=== PATIENT | male | born 1965 | race Caucasian/White ===

== ENCOUNTER 2021-04-12 12:04 | Outpatient (REF) | payer MEDICAID, SELFPAY ==
--- NOTE | ~2021-04-12 | XR_ITS ---
EXAMINATION: XR THORACIC SPINE XR LEFT FOOT CLINICAL INFORMATION: Dorsalgia and left foot pain. COMPARISON: None TECHNIQUE: 3 views of thoracic spine, 3 views of left foot. FINDINGS: THORACIC SPINE: Mild degenerative changes noted in the thoracic spine with some mild osteophyte formation. Vertebral heights are well maintained. No significant disc space narrowing is seen. No bony destructive lesions are seen. Vertebral soft tissues appear normal. LEFT FOOT: No significant bone, joint or soft tissue abnormalities are seen. XR/XR thoracic spine 2V IMPRESSION: Mild degenerative changes of thoracic spine, but no acute disease. Normal left foot.
--- NOTE | ~2021-04-12 | XR_ITS ---
EXAMINATION: XR THORACIC SPINE XR LEFT FOOT CLINICAL INFORMATION: Dorsalgia and left foot pain. COMPARISON: None TECHNIQUE: 3 views of thoracic spine, 3 views of left foot. FINDINGS: THORACIC SPINE: Mild degenerative changes noted in the thoracic spine with some mild osteophyte formation. Vertebral heights are well maintained. No significant disc space narrowing is seen. No bony destructive lesions are seen. Vertebral soft tissues appear normal. LEFT FOOT: No significant bone, joint or soft tissue abnormalities are seen. XR/XR foot LT min 3V IMPRESSION: Mild degenerative changes of thoracic spine, but no acute disease. Normal left foot.
== END 2021-04-12 12:05 | disposition home or self-care (01) ==
LOC: HO.XRAY 12:04
PROVIDERS: PCP Physician Assistant Medical; Visit Provider Physician Assistant Medical
DX: M54.9 Dorsalgia, unspecified (principal); M79.672 Pain in left foot
CPT/HCPCS: 72070; 73630

== ENCOUNTER 2021-06-10 09:26 | Outpatient (REF) | payer MEDICAID, SELFPAY ==
[2021-06-10 10:54] LABS: MANUAL DIFF FLAG NO
[2021-06-10 11:02] LABS: Basophils Absolute Auto 0.1 X10*3/uL (0.0-0.2); Eosinophils Absolute Auto 0.1 X10*3/uL (0.0-0.4); Eosinophils Percent Auto 1.9 % (0-4); Hematocrit 40.7 % (42.0-52.0); Hemoglobin 13.6 g/dl (14.0-18.0); Imm Gran Abs Auto 0.02 X10*3/uL (0.00-0.03); Imm Gran Pct Auto 0.3 % (0.0-0.4); Lymphocytes Absolute Auto 1.5 X10*3/uL (1.2-4.9); Lymphocytes Percent Auto 23.7 % (20-40); Mean Corpuscular HGB Conc 33.4 g/dl (31.0-36.0); Mean Corpuscular Hemoglobin 32.6 pg (27.0-33.0); Mean Corpuscular Volume 97.6 fL (80.0-98.0); Mean Platelet Volume 9.6 fL (9.4-12.4); Monocytes Absolute Auto 0.6 X10*3/uL (0.1-1.2); Neutrophils Percent Auto 63.1 % (45-73); Platelet Count 142 X10*3/uL (160-400); Red Blood Count 4.17 X10*6/uL (4.60-5.80); Red Cell Distribution Width 12.5 % (11.0-16.0); White Blood Count 6.3 X10*3/uL (4.8-10.8)
[2021-06-10 11:05] LABS: Ammonia 61 umol/L (13-55)
[2021-06-10 11:30] LABS: Ethanol 63 mg/dL
[2021-06-10 11:39] LABS: Alanine Aminotransferase 31 U/L (0-40); Albumin Level 4.1 g/dL (3.5-5.0); Alkaline Phosphatase 250 U/L (39-117); Anion Gap 13 (12-20); Aspartate Amino Transferase 66 U/L (5-37); Bilirubin Direct 1.7 mg/dL (0.0-0.5); Bilirubin Total 2.8 mg/dL (0.0-1.0); Blood Urea Nitrogen 6 mg/dL (9-16); Calcium 9.5 mg/dL (8.4-10.2); Carbon Dioxide 24 mmol/L (22-29); Chloride 107 mmol/L (96-108); Estimated Glomerular Filt Rate > 60; Gamma Glutamyl Transpeptidase 2351 U/L (11-51); Glucose Random 98 mg/dL (60-115); Potassium 3.8 mmol/L (3.3-5.1); Sodium 140 mmol/L (135-145); Total Protein 7.7 g/dL (6.5-8.0)
[2021-06-10 11:57] LABS: HBc Num1 0.07 S/CO (0.00-0.79); HBsAGNum1 0.22 S/CO (0.00-0.99); HIV AB/AG Nonreactive (Nonreactive); HIV Num 1 0.08 S/CO (0.00-0.99); Hepatitis B Core Antibody Nonreactive (Nonreactive); Hepatitis B Surface Antigen Negative (Negative); ~HepC Num1 0.13 S/CO (0.00-0.79); ~Hepatitis B Surface Antibody NONREACTIVE (Nonreactive); ~Hepatitis C Antibody Nonreactive (Nonreactive)
[2021-06-10 12:00] LABS: TSH reflex Free T4 2.15 uIU/mL (0.32-4.0)
[2021-06-10 12:24] LABS: Ferritin 389 ng/mL (20-250)
[2021-06-10 12:48] LABS: Hepatitis A Antibody IgM 0.24 Index (0-0.79); ~Hepatitis A Antibody IgM Nonreactive (Nonreactive)
[2021-06-14 10:16] LABS: Anti Nuclear Antibody Screen POSITIVE (NEGATIVE); Anti Nuclear Antibody Titer 1:40 titer
[2021-06-14 11:50] LABS: Smooth Muscle Antibody <20 U (<20)
[2021-06-14 16:42] LABS: Mitochondrial Antibodies NEGATIVE (NEGATIVE)
[2021-06-15 11:56] LABS: Alpha Fetoprotein 5.3 ng/mL (<6.1)
== END 2021-06-10 09:27 | disposition home or self-care (01) ==
LOC: HO.LAB 09:26
PROVIDERS: PCP Physician Assistant Medical; Visit Provider Nurse Practitioner
DX: R79.89 Other specified abnormal findings of blood chemistry (principal); I85.00 Esophageal varices without bleeding; D36.9 Benign neoplasm, unspecified site; F10.20 Alcohol dependence, uncomplicated
CPT/HCPCS: 36415; 80053; 82077; 82105; 82140; 82248; 82728; 82977; 84443; 85025; 86038; 86039; 86255; 86256; 86704; 86706; 86709; 86803; 87340; 87389; 99202

== ENCOUNTER 2021-07-27 07:46 | Outpatient (REF) | payer MEDICAID, SELFPAY ==
--- NOTE | ~2021-07-27 | US_ITS ---
EXAMINATION: US COMPLETE ABDOMEN WITH LIVER ELASTOGRAPHY CLINICAL INFORMATION: Abnormal liver function tests COMPARISON: Previous CT of the abdomen and pelvis March 2012 TECHNIQUE: Real-time imaging of the abdominal viscera. Noninvasive ultrasound liver fibrosis assessment is performed using Ed ElastPQ point quantification shear wave elastography (2D-SWE) with a C5-2 MHz transducer. Multiple elastography samples are obtained. FINDINGS: PANCREAS: Normal. ABDOMINAL AORTA: The proximal, middle, and distal aortic segments are normal in caliber. INFERIOR VENA CAVA: Visualized portions are normal. LIVER: Liver echotexture is very heterogeneous with hyper and hypoechoic areas. It is difficult to exclude a focal liver lesion. The contour of the liver is irregular/scalloped suggestive of cirrhosis. The liver is enlarged. There is no biliary duct dilatation. The right lobe measures 22 cm in length. The left lobe measures 14 cm in length. Portal flow is normal/hepatopedal Shear wave liver elastography median stiffness is 1.9 m/s (reference: normal median stiffness is 1.3 m/s or less). IQR/median stiffness to assess sampling precision is 0.27 (reference: good quality data set is IQR/median stiffness of 0.15 or less). GALLBLADDER: The gallbladder is normal in size. There is a small gallbladder wall polyp measuring 0.4 cm. Gallbladder wall appears slightly thickened measuring up to 0.6 cm. COMMON BILE DUCT: Normal in caliber measuring 0.4 cm in diameter. RIGHT KIDNEY: There is a 1.6 x 1.5 x 1.9 cm slightly complex cyst in the midpole with focus of wall calcification or milk of calcium. No hydronephrosis. The kidney measures 13 cm in maximum dimension. LEFT KIDNEY: Normal. No hydronephrosis. No renal calculi or focal parenchymal lesions. The kidney measures 14.5 cm in maximum dimension. SPLEEN: The spleen is enlarged. The spleen measures 17 cm in maximum dimension. FREE FLUID: None. US/US abdomen comp w elastography IMPRESSION: 1. Impression: cirrhotic-appearing liver. Liver echotexture is very heterogeneous and it is difficult to exclude a focal lesion. Further evaluation with MRI of the liver with contrast is recommended. Thickened gallbladder wall and gallbladder wall polyp. Enlarged spleen. Small complex cyst in the upper pole of the right kidney. 2. Liver elastography: Limited due to sampling error. REFERENCE: Society of Radiologists in Ultrasound Liver Stiffness Thresholds (2020): LIVER STIFFNESS THRESHOLDS: *Liver Stiffness equal or less than 1.3 m/s: High probability of being normal. *Liver Stiffness less than 1.7 m/s: In the absence of other known clinical signs, rules out compensated advanced chronic liver disease. *Liver Stiffness 1.7-2.1 m/s: Suggestive of compensated advanced chronic liver disease but need further test for confirmation. *Liver Stiffness over 2.1 m/s: Rules in compensated advanced chronic liver disease. *Liver Stiffness over 2.4 m/s: Suggestive of clinically significant portal hypertension. QUALITY OF DATA SET: *IQR/Median value equal or less than 0.15 implies a quality data set. *IQR/Median value over 0.15 implies a poor quality data set. SIGNIFICANT CHANGE FROM PRIOR EXAM: Significant change if liver stiffness measurement is 10% or greater from prior exam. OTHER CONSIDERATIONS: The stage of liver fibrosis may be overestimated in the setting of acute hepatitis, liver inflammation, elevated liver function tests, hepatic vascular congestion, obstructive cholestasis, non-fasting state, and infiltrative diseases such as amyloidosis and lymphoma. In some patients with NAFLD, the liver stiffness thresholds for compensated advanced chronic liver disease may be lower. In causes other than viral hepatitis and NAFLD, liver stiffness thresholds are not well established.
== END 2021-07-27 07:47 | disposition home or self-care (01) ==
LOC: HO.US 07:46
PROVIDERS: PCP Internal Medicine; Visit Provider Nurse Practitioner
DX: R79.89 Other specified abnormal findings of blood chemistry (principal)
CPT/HCPCS: 76705; 76981

== ENCOUNTER → 2021-08-02 09:43 | Outpatient (BNVA) | payer MEDICAID, SELFPAY | PROVIDERS: PCP Internal Medicine; Referring Provider Internal Medicine; Visit Provider Nurse Practitioner | DX: K74.60 Unspecified cirrhosis of liver (principal); M79.2 Neuralgia and neuritis, unspecified; M79.3 Panniculitis, unspecified; R16.0 Hepatomegaly, not elsewhere classified; E72.20 Disorder of urea cycle metabolism, unspecified | CPT/HCPCS: 99212 ==

== ENCOUNTER 2021-08-10 11:16 | Inpatient (IN) | payer MEDICAID, SELFPAY ==
--- NOTE | ~2021-08-10 | CT_ITS ---
EXAMINATION: CT ABDOMEN AND PELVIS WITH CONTRAST CLINICAL INFORMATION: Upper abdominal pain COMPARISON: Previous ultrasound July [address] of the abdomen and pelvis March 2012 TECHNIQUE: Multidetector volumetric images were obtained from the superior aspect of the liver through the pubic symphysis following administration 85 mL of Omnipaque 350 intravenous contrast. Sagittal and coronal reformatted images were obtained on the technologist's workstation. Oral contrast: Yes This CT examination was performed using dose optimization techniques as appropriate, variously including the following: *Automated exposure control *Adjustment of mA and/or kV according to patient size (this includes techniques or standardized protocols for targeted exams where dose is matched to indication/reason for exam; i.e. extremities or head) *Use of iterative reconstruction technique DLP: 895 mGy-cm FINDINGS: LUNG BASES: There is a small right pleural effusion. LIVER, GALLBLADDER, AND BILIARY TREE: The liver appears cirrhotic. No focal liver lesion is seen. Gallbladder is normal in size. There is a tiny gallstone. There is no intra or extrahepatic biliary duct dilatation. There is a small amount of ascites adjacent to the liver. PANCREAS: The pancreas is normal in size and enhances normally. The main pancreatic duct does not appear dilated. There is fat stranding seen surrounding the pancreas, particularly the head of the pancreas extending into the root of the small bowel mesentery. There is some thickening of the left anterior pararenal fascia. Findings are questionable for mild pancreatitis. SPLEEN: The spleen is enlarged and measures 17 cm in length. ADRENAL GLANDS: Unremarkable. KIDNEYS AND URETERS: There is a 1 x 2 cm cyst in the lateral midpole of the right kidney. The kidneys are otherwise unremarkable. BLADDER: Not optimally distended. GASTROINTESTINAL TRACT: There are postsurgical changes following right colectomy. The small and large bowel is otherwise unremarkable. The stomach is collapsed. It is difficult to exclude wall thickening of the proximal stomach. ABDOMINAL WALL: Small abdominal/umbilical hernia containing fat. LYMPH NODES: There are are upper abdominal lymph nodes. Largest lymph nodes or periportal and peripancreatic lymph nodes. Largest lymph nodes are upper normal in size for example a precaval lymph node measuring 1.4 x 3 cm. Small, small bowel mesentery lymph nodes. VASCULAR: There is disease. PELVIC VISCERA: Unremarkable. OSSEOUS STRUCTURES: There are degenerative changes of the spine. There is increased sclerosis in the femoral heads questionable for early AVN. CT/CT abdomen pelvis w con IMPRESSION: Cirrhosis splenomegaly and varices and small amount of ascites. Tiny gallstone in the gallbladder. Extensive fat stranding surrounding the pancreas questionable for mild pancreatitis. Numerous periportal and peripancreatic lymph nodes. Small right renal cyst. Fleischner guidelines were followed.
[2021-08-10 11:42] VITALS: BP 152/100; PULSE 98; RESP 18; TEMP 37.3; O2SAT 98; BMI 32.3
--- NOTE | 2021-08-10 12:08 | ED.ABDPAIN ---
HPI - Abdominal Pain General Chief Complaint: Abdominal Pain Stated Complaint: abd pain Time Seen by Provider: 08/10/21 12:07 Source: patient Mode of arrival: ambulatory Limitations: no limitations History of Present Illness MD elicited complaint: abdominal pain Pertinent past history: other (cirrhosis ETOH use, chronic abdominal pain) Onset (ago): week(s) (1) Pain Consistency: constant Location: epigastric and LUQ Severity: moderate Quality: stabbing Radiation: none Migration to: no migration Exacerbating factors: movement Relieving factors: nothing Context: history of similar episodes Associated symptoms: nausea Related Data Home Medications Medication Instructions Recorded Confirmed bupropion HCl 300 mg 24 hr tablet, 300 mg PO QAM 06/10/21 extended release cyanocobalamin (vitamin B-12) 1,000 mcg PO DAILY 06/10/21 1,000 mcg tablet folic acid 1 mg tablet 1 mg PO DAILY 06/10/21 pravastatin 10 mg tablet 10 mg PO DAILY 06/10/21 thiamine HCl (vitamin B1) 100 mg 100 mg PO DAILY 06/10/21 tablet topiramate 25 mg tablet 25 mg PO BID 06/10/21 lisinopril 20 mg tablet 20 mg PO BID 08/02/21 paroxetine HCl 10 mg tablet 20 mg PO DAILY tab 08/02/21 Previous Rx's Medication Instructions Recorded imipramine HCl 10 mg tablet 10 mg PO BEDTIME 30 Days #30 tab 08/02/21 [id number] 1 cap PO TID 30 Days #90 cap 08/02/21 24,000-76,000-120,000 unit capsule,delayed rel (Creon) prednisone 20 mg tablet 60 mg PO DAILY 7 Days #21 tab 08/02/21 rifaximin 550 mg tablet (Xifaxan) 550 mg PO BID #60 tab 08/02/21 Allergies Allergy/AdvReac Type Severity Reaction Status Date / Time No Known Drug Allergies Allergy Mild NONE Verified 08/02/21 09:51 [NO KNOWN DRUG ALLERGIES] Review of Systems Review of Systems Constitutional : No Weight loss, No Fever, No Chills ENT/Mouth : No sore throat, No Rhinorrhea Eyes: No Swelling, No Redness Cardiovascular : No Chest Pain, No SOB, NoEdema Respiratory : No Cough, No Sputum, No Wheezing Gastrointestinal : Positive Nausea, no Vomiting, no Diarrhea, positive abdominal Pain, No Hematochezia, No Melena Genitourinary : No Dysuria, No Urinary Frequency, No Hematuria, No Urgency Musculoskeletal : No joint pain, No Myalgias, No Joint Swelling Skin : No Skin Lesions, No rash Neuro : No Weakness, No Numbness, No Dizziness, No Headache Psych : No Anxiety/Panic, No Depression Heme/Lymph: No Bruising, No Lymphadenopathy Endocrine : No Polyuria, No Polydipsia All other systems reviewed and are negative. [facility] Past Medical History Attestation statement: The following information was validated with the patient. Medical History Alcoholism Chronic abdominal pain Cirrhosis Elevated LFTs GERD (gastroesophageal reflux disease) Gout Liver mass, right lobe Panniculitis Surgical History H/O cervical spine surgery H/O colonoscopy H/O hemicolectomy Social History Social History (Updated 08/10/21 @ 12:30 by Maryjane Mercado DO) Alcohol intake: current Patient Tobacco Use Status: Former Tobacco user Advance Directives: No Advance Directives Information Provided: Yes Physical Exam ED Vital Signs: Vital Signs - 24 hr 08/10/21 11:42 08/10/21 15:12 Temperature 99.1 F 98.2 F Pulse Rate 98 94 Respiratory Rate 18 18 Blood Pressure 152/100 H 161/103 H Pulse Oximetry 98 97 BMI result Body Mass Index 32.3 Appearance: Alert. Oriented X3. No acute distress. Eyes: Pupils equal, round and reactive to light. scleral icterus ENT: Pharynx normal. Neck: Normal inspection. Neck supple. CVS: Normal heart rate and rhythm. Pulses normal. Respiratory: No respiratory distress. Breath sounds normal. Abdomen: Soft and moderate ttp in LUQ / epigastric area no rebound Skin: Skin warm and dry. Normal skin color. Normal skin turgor. Extremities: No lower extremity edema. No calf ttp Neuro: Oriented X 3. No motor deficit. No sensory deficit. Course Course Course Narrative: IV ativan for likely ETOh anxiety at this time mild ETOH pancreatitis still with pain LR ordered will start on phenobarb protocol MDM - Abdominal Pain MDM Narrative Medical decision making narrative: 55 yo male with hx of cirrhosis, ETOH abuse, abdominal pain notes LUQ and epigastric pain worsening over the past several days at this time will obtain basic labs, CT scan for pancreatitis, IV morphine for pain dispo per results and findings. Differential Diagnosis Differential diagnosis: Likely abdominal pain, gastritis and pancreatitis; Unlikely aortic dissection, acute appendicitis or mesenteric ischemia Lab Data Result diagrams: 08/10/21 13:27 08/10/21 13:27 Labs: Lab Results 08/10/21 08/10/21 08/10/21 Range/Units 13:27 13:27 13:27 WBC 8.8 (4.8-10.8) X10*3/uL RBC 4.50 L (4.60-5.80) X10*6/uL Hgb 14.8 (14.0-18.0) g/dl Hct 42.6 (42.0-52.0) % MCV 94.7 (80.0-98.0) fL MCH 32.9 (27.0-33.0) pg MCHC 34.7 (31.0-36.0) g/dl RDW 12.8 (11.0-16.0) % Plt Count 151 L (160-400) X10*3/uL MPV 9.5 (9.4-12.4) fL Immature Gran % (Auto) 0.6 H (0.0-0.4) % Neut % (Auto) 70.8 (45-73) % Lymph % (Auto) 15.5 L (20-40) % Elbert % (Auto) 10.6 (2-11) % Eos % (Auto) 1.9 (0-4) % Baso % (Auto) 0.6 (0-2) % Lymph # (Auto) 1.4 (1.2-4.9) X10*3/uL Elbert # (Auto) 0.9 (0.1-1.2) X10*3/uL Eos # (Auto) 0.2 (0.0-0.4) X10*3/uL Baso # (Auto) 0.1 (0.0-0.2) X10*3/uL Abs Immat Gran (auto) 0.05 H (0.00-0.03) X10*3/uL Absolute Neuts (auto) 6.2 (2.0-8.3) x10*3/uL Absolute Nucleated RBC 0.000 (0.0-0.012) X10*3/uL Nucleated RBC % (auto) 0.0 (0.0-0.2) /100WBC Sodium 136 (135-145) mmol/L Potassium 3.6 (3.3-5.1) mmol/L Chloride 104 (96-108) mmol/L Carbon Dioxide 22 (22-29) mmol/L Anion Gap 14 (12-20) BUN 11 D (9-16) mg/dL Creatinine 0.69 (0.5-1.4) mg/dL Estim Creat Clear Calc 180.3 Estimated GFR > 60 Random Glucose 123 H (60-115) mg/dL Calcium 9.4 (8.4-10.2) mg/dL Magnesium 2.0 (1.6-2.6) mg/dL Total Bilirubin 4.0 H (0.0-1.0) mg/dL Direct Bilirubin 2.4 H (0.0-0.5) mg/dL AST 66 H (5-37) U/L ALT 40 (0-40) U/L Alkaline Phosphatase 300 H (39-117) U/L Lactate Dehydrogenase 136 (118-273) U/L Total Protein 7.8 (6.5-8.0) g/dL Albumin 3.9 (3.5-5.0) g/dL Lipase 350 H (8-78) U/L Urine Color Urine Appearance Urine pH (5.0-8.0) Ur Specific [place] (1.005-1.025) Urine Protein (NEG-TRACE) MG/DL Urine Glucose (UA) (NEG) MG/DL Urine Ketones (NEG) MG/DL Urine Blood (NEG) Urine Nitrite (NEG) Ur Leukocyte Esterase (NEG) Ethyl Alcohol < 10 mg/dL 08/10/21 Range/Units 13:27 WBC (4.8-10.8) X10*3/uL RBC (4.60-5.80) X10*6/uL Hgb (14.0-18.0) g/dl Hct (42.0-52.0) % MCV (80.0-98.0) fL MCH (27.0-33.0) pg MCHC (31.0-36.0) g/dl RDW (11.0-16.0) % Plt Count (160-400) X10*3/uL MPV (9.4-12.4) fL Immature Gran % (Auto) (0.0-0.4) % Neut % (Auto) (45-73) % Lymph % (Auto) (20-40) % Elbert % (Auto) (2-11) % Eos % (Auto) (0-4) % Baso % (Auto) (0-2) % Lymph # (Auto) (1.2-4.9) X10*3/uL [place]bert # (Auto) (0.1-1.2) X10*3/uL Eos # (Auto) (0.0-0.4) X10*3/uL Baso # (Auto) (0.0-0.2) X10*3/uL Abs Immat Gran (auto) (0.00-0.03) X10*3/uL Absolute Neuts (auto) (2.0-8.3) x10*3/uL Absolute Nucleated RBC (0.0-0.012) X10*3/uL Nucleated RBC % (auto) (0.0-0.2) /100WBC Sodium (135-145) mmol/L Potassium (3.3-5.1) mmol/L Chloride (96-108) mmol/L Carbon Dioxide (22-29) mmol/L Anion Gap (12-20) BUN (9-16) mg/dL Creatinine (0.5-1.4) mg/dL Estim Creat Clear Calc Estimated GFR Random Glucose (60-115) mg/dL Calcium (8.4-10.2) mg/dL Magnesium (1.6-2.6) mg/dL Total Bilirubin (0.0-1.0) mg/dL Direct Bilirubin (0.0-0.5) mg/dL AST (5-37) U/L ALT (0-40) U/L Alkaline Phosphatase (39-117) U/L Lactate Dehydrogenase (118-273) U/L Total Protein (6.5-8.0) g/dL Albumin (3.5-5.0) g/dL Lipase (8-78) U/L Urine Color DK YELLOW Urine Appearance CLEAR Urine pH 7.5 (5.0-8.0) Ur Specific [place] 1.020 (1.005-1.025) Urine Protein TRACE (NEG-TRACE) MG/DL Urine Glucose (UA) NEG (NEG) MG/DL Urine Ketones 15 (NEG) MG/DL Urine Blood NEG (NEG) Urine Nitrite NEG (NEG) Ur Leukocyte Esterase NEG (NEG) Ethyl Alcohol mg/dL Discharge Plan Discharge Clinical Impression: Abdominal pain, Acute alcoholic pancreatitis, Elevated liver function tests Patient Disposition: Admitted As Inpatient Prescriptions: No Action folic acid 1 mg tablet 1 mg PO DAILY 0RF bupropion HCl 300 mg tablet extended release 24 hr 300 mg PO QAM 0RF pravastatin 10 mg tablet 10 mg PO DAILY 0RF thiamine HCl (vitamin B1) 100 mg tablet 100 mg PO DAILY 0RF cyanocobalamin (vitamin B-12) 1,000 mcg tablet 1,000 mcg PO DAILY 0RF topiramate 25 mg tablet 25 mg PO BID 0RF paroxetine HCl 10 mg tablet 20 mg PO DAILY 0RF lisinopril 20 mg tablet 20 mg PO BID 0RF Xifaxan 550 mg tablet 550 mg PO BID Qty: 60 6RF imipramine HCl 10 mg tablet 10 mg PO BEDTIME 30 Days Qty: 30 6RF prednisone 20 mg tablet 60 mg PO DAILY 7 Days Qty: 21 0RF Creon 24,000-76,000 -120,000 unit capsule,delayed release(DR/EC) 1 cap PO TID 30 Days Qty: 90 3RF Rx Instructions: administer with meals and/or snacks
--- NOTE | 2021-08-10 12:33 | ECG_ITS ---
Test Reason : ABDOMINAL PAIN Blood Pressure : / mmHG Vent. Rate : 083 BPM Atrial Rate : 083 BPM P-R Int : 172 ms QRS Dur : 092 ms QT Int : 400 ms P-R-T Axes : 023 016 022 degrees QTc Int : 470 ms Normal sinus rhythm Normal ECG No previous ECGs available Referred By: Maryjane Mercado Electronically Signed By:KEVEN ZAMORANO MD
[2021-08-10 13:34] LABS: MANUAL DIFF FLAG NO
[2021-08-10 13:36] LABS: Appearance Urine CLEAR; Color Urine DK YELLOW; Glucose Urine UA NEG (NEG); Leukocyte Esterase Urine NEG (NEG); Nitrite Urine NEG (NEG); PH 7.5 (5.0-8.0); Urine Blood NEG (NEG); Urine Ketones 15 MG/DL (NEG); Urine Protein TRACE MG/DL (NEG-TRACE)
[2021-08-10] MEDS: ondansetron HCL 4 MG/2 ML VIAL IVPUSH (13:39)
[2021-08-10] MEDS: Morphine Sulfate 4 MG/ML CARTRIDGE IVPUSH ×3 (13:39→23:22)
[2021-08-10] MEDS: 0.9 % Sodium Chloride 1,000 ML 999 ML IVCONT (13:40)
[2021-08-10 13:42] LABS: Basophils Absolute Auto 0.1 X10*3/uL (0.0-0.2); Basophils Percent Auto 0.6 % (0-2); Eosinophils Absolute Auto 0.2 X10*3/uL (0.0-0.4); Eosinophils Percent Auto 1.9 % (0-4); Hematocrit 42.6 % (42.0-52.0); Hemoglobin 14.8 g/dl (14.0-18.0); Imm Gran Abs Auto 0.05 X10*3/uL (0.00-0.03); Imm Gran Pct Auto 0.6 % (0.0-0.4); Lymphocytes Absolute Auto 1.4 X10*3/uL (1.2-4.9); Lymphocytes Percent Auto 15.5 % (20-40); Mean Corpuscular HGB Conc 34.7 g/dl (31.0-36.0); Mean Corpuscular Hemoglobin 32.9 pg (27.0-33.0); Mean Corpuscular Volume 94.7 fL (80.0-98.0); Mean Platelet Volume 9.5 fL (9.4-12.4); Monocytes Absolute Auto 0.9 X10*3/uL (0.1-1.2); Monocytes Percent Auto 10.6 % (2-11); Neutrophils Absolute Auto 6.2 x10*3/uL (2.0-8.3); Neutrophils Percent Auto 70.8 % (45-73); Platelet Count 151 X10*3/uL (160-400); Red Cell Distribution Width 12.8 % (11.0-16.0); White Blood Count 8.8 X10*3/uL (4.8-10.8)
[2021-08-10 13:49] LABS: Ethanol < 10 mg/dL
[2021-08-10 13:52] LABS: Alanine Aminotransferase 40 U/L (0-40); Albumin Level 3.9 g/dL (3.5-5.0); Alkaline Phosphatase 300 U/L (39-117); Anion Gap 14 (12-20); Aspartate Amino Transferase 66 U/L (5-37); Bilirubin Direct 2.4 mg/dL (0.0-0.5); Blood Urea Nitrogen 11 mg/dL (9-16); Calcium 9.4 mg/dL (8.4-10.2); Carbon Dioxide 22 mmol/L (22-29); Chloride 104 mmol/L (96-108); Creatinine Clr Calc Pharmacy 180.3; Estimated Glomerular Filt Rate > 60; Glucose Random 123 mg/dL (60-115); Lipase 350 U/L (8-78); Potassium 3.6 mmol/L (3.3-5.1); Sodium 136 mmol/L (135-145); Total Protein 7.8 g/dL (6.5-8.0)
[2021-08-10 14:18] LABS: Lactate Dehydrogenase 136 U/L (118-273)
[2021-08-10] MEDS: iohexoL 350 MG/ML 100 ML INFUS..BTL 85 ML IV (14:43)
[2021-08-10 15:12] VITALS: BP 161/103; PULSE 94; RESP 18; TEMP 36.8; O2SAT 97
[2021-08-10] MEDS: LORazepam 2 MG/ML VIAL 1 MG IVPUSH (15:21)
[2021-08-10] MEDS: Lactated Ringers 1,000 ML 999 ML IV (16:16)
[2021-08-10 16:58] LABS: COVID-19 Test Negative (Negative)
--- NOTE | 2021-08-10 17:03 | PHA.MEDREC ---
Pharmacy Consult ? Medication Reconciliation Pharmacy has completed the medication reconciliation.
--- NOTE | 2021-08-10 17:08 | PM.IMHP ---
History of Present Illness Date of Service: 08/10/21 Chief Complaint: abd pain 55M presented with epigastric pain for 3 days, 04/03, radiating to left upper quadrant. patient has chronic alcohol dependence with cirrhosis, varices, splenomegaly. he denies n/v/d. he says he can tolerate solid diet and is hungry. in ED ct showed cirrhotic liver, splenomegaly, acute pancreatitis. patient reports last drink day ptp, he is feeling jittery. Review of Systems Review of Systems: Constitutional: Denies fever, denies Chills Eyes: denies blurry vision ENT: denies sore throat CVS: denies chest pain Respiratory: Denies dyspnea GI: abdominal pain : denies dysuria MSK: denies neck pain Skin: denies rash Neuro: denies specific motor weakness Psych: denies suicidal ideation Endocrine: denies heat/cold intolerance Hematologic: denies easy bleeding Allergy: denies hives [facility] Medical History Alcoholism Chronic abdominal pain Cirrhosis Elevated LFTs GERD (gastroesophageal reflux disease) Gout Liver mass, right lobe Panniculitis Family History (Updated 08/10/21 @ 17:11 by Robert Casas MD) Mother Cancer Surgical History H/O cervical spine surgery H/O colonoscopy H/O hemicolectomy Social History Alcohol intake: current Alcohol intake frequency: 3 or more drinks per day Alcohol type: hard liquor Patient Tobacco Use Status: Former Tobacco user Advance Directives: No Advance Directives Information Provided: Yes Meds Allergies Allergy/AdvReac Type Severity Reaction Status Date / Time No Known Drug Allergies Allergy Mild NONE Verified 08/02/21 09:51 [NO KNOWN DRUG ALLERGIES] Active Medications: Current Medications Lipase/Protease/Amylase (Lipase/Prot/Amylase 24/76/120k 1 Cap Capsule.Dr) 1 cap PO TIDWM RYAN Cyanocobalamin (Cyanocobalamin (Vitamin B-12) 1,000 Mcg Tablet) 1,000 mcg PO DAILY RYAN Folic Acid (Folic Acid 1 Mg Tablet) 1 mg PO DAILY RYAN Imipramine HCl (Imipramine Hcl 10 Mg Tablet) 10 mg PO BEDTIME RYAN Lisinopril (Lisinopril 20 Mg Tablet) 20 mg PO BID [facility]; Protocol Medication (No Benzodiazepines) 1 each MISCELLANE DAILY [facility] Morphine Sulfate (Morphine Sulfate 4 Mg/Ml Cartridge) 4 mg IVPUSH Q4H PRN; Protocol PRN Reason: moderate pain Omeprazole (Omeprazole 40 Mg Capsule.Dr) 40 mg PO DAILY [facility] Paroxetine HCl (Paroxetine Hcl 20 Mg Tablet) 20 mg PO DAILY [facility] Pharmacy Consult (Consult Rx Perform Med Rec) 1 each MISCELLANE ONCE PRN PRN Reason: Consult order Phenobarbital (Phenobarbital 30 Mg Tablet) 60 mg PO BID [facility]; Protocol Stop: 08/12/21 21:01 Phenobarbital (Phenobarbital 30 Mg Tablet) 30 mg PO BID [facility]; Protocol Stop: 08/14/21 21:01 Phenobarbital (Phenobarbital 30 Mg Tablet) 30 mg PO DAILY [facility]; Protocol Stop: 08/16/21 09:01 Phenobarbital Sodium (Phenobarbital Sodium 130 Mg/Ml Vial) 213.2 mg IM Q3H [facility]; Protocol Stop: 08/10/21 23:01 Pravastatin Sodium (Pravastatin Sodium 10 Mg Tablet) 10 mg PO DAILY [facility] Thiamine HCl (Thiamine Hcl 100 Mg Tablet) 100 mg PO DAILY [facility] Topiramate (Topiramate 25 Mg Tablet) 25 mg PO BID [facility] Home Medications Medication Instructions Recorded Confirmed Last Taken Type bupropion HCl 300 mg 24 hr tablet, 300 mg PO DAILY 06/10/21 08/10/21 08/10/21 History extended release cyanocobalamin (vitamin B-12) 1,000 mcg PO DAILY 06/10/21 08/10/21 08/10/21 History 1,000 mcg tablet folic acid 1 mg tablet 1 mg PO DAILY 06/10/21 08/10/21 08/10/21 History pravastatin 10 mg tablet 10 mg PO DAILY 06/10/21 08/10/21 08/10/21 History thiamine HCl (vitamin B1) 100 mg 100 mg PO DAILY 06/10/21 08/10/21 08/10/21 History tablet topiramate 25 mg tablet 25 mg PO BID 06/10/21 08/10/21 08/10/21 History lisinopril 20 mg tablet 20 mg PO BID 08/02/21 08/10/21 08/10/21 History [id number] 1 cap PO TIDWM 08/10/21 08/10/2122 History 24,000-76,000-120,000 unit capsule,delayed rel (Creon) omeprazole 40 mg capsule,delayed 1 cap PO DAILY 08/10/21 08/10/21 08/10/21 History release paroxetine HCl 20 mg tablet 1 tab PO DAILY 08/10/21 08/10/21 08/10/21 History Physical Exam Vital Signs and Narrative: Vital Signs: Last Vital Signs Temp 98.2 F 08/10/21 15:12 Pulse 94 08/10/21 15:12 Resp 18 08/10/21 15:12 BP 161/103 H 08/10/21 15:12 Pulse Ox 97 08/10/21 15:12 BMI result Body Mass Index 32.3 General: no acute distress, jittery, juandiced HEENT: atraumatic Neck: normal to visual inspection CVS: S1, S2, RRR Resp: CTA bilateral Chest: non tender GI: soft, epigastric tender, non distended, splenomegaly : no CVA tenderness Skin: no rashes Extremities: no edema Neuro: Oriented X3, grossly intact Psych: cooperative Results Labs CBC and Chem 7: 08/10/21 13:27 08/10/21 13:27 Labs: Laboratory Results - last 24 hr 08/10/21 08/10/21 08/10/21 13:27 13:27 13:27 MCV 94.7 MCH 32.9 MCHC 34.7 RDW 12.8 Plt Count 151 L MPV 9.5 Immature Gran % (Auto) 0.6 H Neut % (Auto) 70.8 Lymph % (Auto) 15.5 L [place] % (Auto) 10.6 Eos % (Auto) 1.9 Baso % (Auto) 0.6 Lymph # (Auto) 1.4 [place] # (Auto) 0.9 Eos # (Auto) 0.2 Baso # (Auto) 0.1 Abs Immat Gran (auto) 0.05 H Absolute Neuts (auto) 6.2 Absolute Nucleated RBC 0.000 Nucleated RBC % (auto) 0.0 Anion Gap 14 Estim Creat Clear Calc 180.3 Estimated GFR > 60 Random Glucose 123 H Calcium 9.4 Magnesium 2.0 Total Bilirubin 4.0 H Direct Bilirubin 2.4 H AST 66 H ALT 40 Alkaline Phosphatase 300 H Lactate Dehydrogenase 136 Total Protein 7.8 Albumin 3.9 Lipase 350 H Urine Color Urine Appearance Urine pH Ur Specific [place] Urine Protein Urine Glucose (UA) Urine Ketones Urine Blood Urine Nitrite Ur Leukocyte Esterase Ethyl Alcohol < 10 COVID-19 ([facility]) COVID-19 Clin Com 08/10/21 08/10/21 13:27 16:30 MCV MCH MCHC RDW Plt Count MPV Immature Gran % (Auto) Neut % (Auto) Lymph % (Auto) [place] % (Auto) Eos % (Auto) Baso % (Auto) Lymph # (Auto) [place] # (Auto) Eos # (Auto) Baso # (Auto) Abs Immat Gran (auto) Absolute Neuts (auto) Absolute Nucleated RBC Nucleated RBC % (auto) Anion Gap Estim Creat Clear Calc Estimated GFR Random Glucose Calcium Magnesium Total Bilirubin Direct Bilirubin AST ALT Alkaline Phosphatase Lactate Dehydrogenase Total Protein Albumin Lipase Urine Color DK YELLOW Urine Appearance CLEAR Urine pH 7.5 Ur Specific [place] 1.020 Urine Protein TRACE Urine Glucose (UA) NEG Urine Ketones 15 Urine Blood NEG Urine Nitrite NEG Ur Leukocyte Esterase NEG Ethyl Alcohol COVID-19 ([facility]) Negative COVID-19 Clin Com See Note Imaging Radiologist's Impressions: Impressions Abdomen/Pelvis CT 08/10/21 14:47 IMPRESSION: Cirrhosis splenomegaly and varices and small amount of ascites. Tiny gallstone in the gallbladder. Extensive fat stranding surrounding the pancreas questionable for mild pancreatitis. Numerous periportal and peripancreatic lymph nodes. Small right renal cyst. Fleischner guidelines were followed. Assessment and Plan (1) Abdominal pain: Qualifiers: Abdominal location: epigastric Qualified Code(s): R10.13 - Epigastric pain Status: Acute Plan 55M presented with epigastric pain acute alcoholic pancreatitis low fat diet, IVF, pain control alcohol dependence with withdrawal pheonobarb, ciwa alcoholic cirrhosis outpatinet follow up, etoh cessation dvt prophylaxis lovenox full code Quality Stroke Does the patient have a stroke diagnosis?: No VTE Prior VTE?: No VTE Risk Level:: Medical - moderate - high VTE Device Contraindication: Treatment Not Indicated VTE Drug Contraindication: N/A - Med Ordered
[2021-08-10 17:45] VITALS: BP 164/102; PULSE 89; RESP 18; TEMP 36.8; O2SAT 95
[2021-08-10] MEDS: Lactated Ringers 1,000 ML 150 ML IVCONT ×2 (18:17→23:26)
[2021-08-10] MEDS: Enoxaparin Sodium 40 MG/0.4 ML SYRINGE SUBCUT (18:19)
[2021-08-10] MEDS: PHENobarbitaL sodium 130 MG/ML VIAL 287.3 MG IM (18:20)
[2021-08-10 19:15] VITALS: BP 157/100; PULSE 102; RESP 20; O2SAT 97
--- NOTE | 2021-08-10 19:17 | PC.NURSE ---
Assumed care of pt at 1900. Pt endorsing recurrence of pain, medicated per MAR. Otherwise in NAD. Vitals as charted, given water per request, call light at hand. Awaiting report to transfer to inpatient bed
[2021-08-10] MEDS: PHENobarbitaL sodium 130 MG/ML VIAL 213.2 MG IM ×2 (20:14→23:24)
--- NOTE | 2021-08-10 20:18 | PC.NURSE ---
Report called to inpatient RN. Pt to floor in stable condition w./ all belongings, attached to portable electronic device monitor
[2021-08-10] MEDS: Topiramate 25 MG TABLET PO (21:08)
[2021-08-10] MEDS: 0.9 % Sodium Chloride Flush 3 ML SYRINGE IVFLUSH (21:09)
[2021-08-10 21:16] VITALS: BMI 32.1
[2021-08-11] VITALS: BP 141/73; PULSE 96; RESP 18; TEMP 35.7; O2SAT 95
[2021-08-11 03:14] VITALS: BP 122/83; PULSE 99; RESP 18; TEMP 35.7; O2SAT 93
[2021-08-11] MEDS: Morphine Sulfate 4 MG/ML CARTRIDGE IVPUSH ×3 (03:57→20:11)
[2021-08-11] MEDS: Lactated Ringers 1,000 ML 150 ML IVCONT ×3 (06:07→20:12)
[2021-08-11] MEDS: Omeprazole 40 MG CAPSULE.DR PO (06:07)
[2021-08-11 06:53] LABS: INTERNATIONAL NORM RATIO 1.3 (0.9-1.1); Prothrombin Time 15.1 SEC (9.9-13.0)
[2021-08-11 07:01] LABS: Hematocrit 41.4 % (42.0-52.0); Hemoglobin 13.7 g/dl (14.0-18.0); Mean Corpuscular HGB Conc 33.1 g/dl (31.0-36.0); Mean Corpuscular Hemoglobin 32.5 pg (27.0-33.0); Mean Corpuscular Volume 98.3 fL (80.0-98.0); Platelet Count 127 X10*3/uL (160-400); Red Blood Count 4.21 X10*6/uL (4.60-5.80); Red Cell Distribution Width 12.9 % (11.0-16.0); White Blood Count 8.4 X10*3/uL (4.8-10.8)
[2021-08-11 07:09] LABS: Alanine Aminotransferase 31 U/L (0-40); Albumin Level 3.5 g/dL (3.5-5.0); Alkaline Phosphatase 260 U/L (39-117); Anion Gap 12 (12-20); Aspartate Amino Transferase 49 U/L (5-37); Bilirubin Direct 2.8 mg/dL (0.0-0.5); Bilirubin Total 4.5 mg/dL (0.0-1.0); Blood Urea Nitrogen 11 mg/dL (9-16); Calcium 8.8 mg/dL (8.4-10.2); Carbon Dioxide 25 mmol/L (22-29); Chloride 103 mmol/L (96-108); Creatinine Clr Calc Pharmacy 187.9; Estimated Glomerular Filt Rate > 60; Glucose Fasting 122 mg/dL (60-99); Potassium 3.6 mmol/L (3.3-5.1); Sodium 136 mmol/L (135-145); Total Protein 6.8 g/dL (6.5-8.0)
[2021-08-11 07:52] VITALS: BP 154/90; PULSE 91; RESP 18; TEMP 36.7; O2SAT 94
--- NOTE | 2021-08-11 08:44 | MHC.CM.PN ---
CM met with Patient at bedside. 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 Patient's goal is to return home and CM has initiated and will follow for dc planning. Patient received the J&J Covid vax and GlySure booster. PCP is Dr. Martin Avilez.Patient may benefit from a Care Team Consult r/t ETOH.
[2021-08-11] MEDS: Topiramate 25 MG TABLET PO ×2 (09:00→20:13)
[2021-08-11] MEDS: lisinopriL 20 MG TABLET PO ×2 (09:00→20:13)
--- NOTE | 2021-08-11 09:34 | P.PNIM_ITS ---
Subjective Subjective Date of Service: 08/11/21 Interval History: cc: abd pain interval history: still with pain Cardiovascular Cardiovascular: Reports no additional cardiovascular complaints Respiratory Respiratory: Reports no additional respiratory complaints Physical Exam Vital Signs: Vital Signs: Last Vital Signs Temp 98.1 F 08/11/21 07:52 Pulse 91 08/11/21 07:52 Resp 18 08/11/21 07:52 BP 154/90 H 08/11/21 07:52 Pulse Ox 94 08/11/21 07:52 BMI result Body Mass Index 32.1 General: AO X 3, no acute distress Resp: CTA bilateral, no accessory muscles used CVS: S1,S2,RRR GI: soft, epigastric tender, non distended Neuro: motor grossly intact, alert Psych: appropriate affect, appropriate insight Objective Data Active Medications Lipase/Protease/Amylase (Lipase/Prot/Amylase 24/76/120k 1 Cap Capsule.Dr) 1 cap PO TIDWM [facility] Cyanocobalamin (Cyanocobalamin (Vitamin B-12) 1,000 Mcg Tablet) 1,000 mcg PO DAILY [facility] Enoxaparin Sodium (Enoxaparin Sodium 40 Mg/0.4 Ml Syringe) 40 mg SUBCUT Q24H [facility] Last Admin: 08/10/21 18:19 Dose: 40 mg Documented by: SOCORRO Folic Acid (Folic Acid 1 Mg Tablet) 1 mg PO DAILY [facility] Lactated Ringer's (Lr) 1,000 mls @ 150 mls/hr IVCONT .Q6H40M [facility] Last Admin: 08/11/21 06:07 Dose: 150 mls/hr Documented by: ANTWAN Imipramine HCl (Imipramine Hcl 10 Mg Tablet) 10 mg PO BEDTIME [facility] Last Admin: 08/10/21 21:14 Dose: Not Given Documented by: ANTWAN Non-Admin Reason: not inhouse Lisinopril (Lisinopril 20 Mg Tablet) 20 mg PO BID [facility]; Protocol Last Admin: 08/10/21 21:08 Dose: Not Given Documented by: ANTWAN Non-Admin Reason: taken twice in the [id number] Medication (No Benzodiazepines) 1 each MISCELLANE DAILY [facility] Morphine Sulfate (Morphine Sulfate 4 Mg/Ml Cartridge) 4 mg IVPUSH Q4H PRN; Protocol PRN Reason: moderate pain Last Admin: 08/11/21 03:57 Dose: 4 mg Documented by: ANTWAN Omeprazole (Omeprazole 40 Mg Capsule.Dr) 40 mg PO DAILY@0630 [facility] Last Admin: 08/11/21 06:07 Dose: 40 mg Documented by: ANTWAN Paroxetine HCl (Paroxetine Hcl 20 Mg Tablet) 20 mg PO DAILY [facility] Pharmacy Consult (Consult Rx Perform Med Rec) 1 each MISCELLANE ONCE PRN PRN Reason: Consult order Phenobarbital (Phenobarbital 30 Mg Tablet) 60 mg PO BID [facility]; Protocol Stop: 08/12/21 21:01 Phenobarbital (Phenobarbital 30 Mg Tablet) 30 mg PO BID [facility]; Protocol Stop: 08/14/21 21:01 Phenobarbital (Phenobarbital 30 Mg Tablet) 30 mg PO DAILY [facility]; Protocol Stop: 08/16/21 09:01 Pravastatin Sodium (Pravastatin Sodium 10 Mg Tablet) 10 mg PO DAILY [facility] Sodium Chloride (0.9 % Sodium Chloride Flush 3 Ml Syringe) 3 ml IVFLUSH QSHIFT [facility] Last Admin: 08/10/21 21:09 Dose: 3 ml Documented by: ANTWAN Thiamine HCl (Thiamine Hcl 100 Mg Tablet) 100 mg PO DAILY [facility] Topiramate (Topiramate 25 Mg Tablet) 25 mg PO BID [facility] Last Admin: 08/10/21 21:08 Dose: 25 mg Documented by: ANTWAN Labs CBC & Chem 7: 08/11/21 05:58 08/11/21 05:58 Labs: Laboratory Results - last 24 hr 08/10/21 08/10/21 08/10/21 13:27 13:27 13:27 MCV 94.7 MCH 32.9 MCHC 34.7 RDW 12.8 Plt Count 151 L MPV 9.5 Immature Gran % (Auto) 0.6 H Neut % (Auto) 70.8 Lymph % (Auto) 15.5 L [place] % (Auto) 10.6 Eos % (Auto) 1.9 Baso % (Auto) 0.6 Lymph # (Auto) 1.4 [place] # (Auto) 0.9 Eos # (Auto) 0.2 Baso # (Auto) 0.1 Abs Immat Gran (auto) 0.05 H Absolute Neuts (auto) 6.2 Absolute Nucleated RBC 0.000 Nucleated RBC % (auto) 0.0 PT INR Anion Gap 14 Estim Creat Clear Calc 180.3 Estimated GFR > 60 Random Glucose 123 H Fasting Glucose Calcium 9.4 Magnesium 2.0 Total Bilirubin 4.0 H Direct Bilirubin 2.4 H AST 66 H ALT 40 Alkaline Phosphatase 300 H Lactate Dehydrogenase 136 Total Protein 7.8 Albumin 3.9 Lipase 350 H Urine Color Urine Appearance Urine pH Ur Specific [place] Urine Protein Urine Glucose (UA) Urine Ketones Urine Blood Urine Nitrite Ur Leukocyte Esterase Ethyl Alcohol < 10 COVID-19 ([facility]) COVID-19 Clin Com 08/10/21 08/10/21 08/11/21 13:27 16:30 05:58 MCV 98.3 H MCH 32.5 MCHC 33.1 RDW 12.9 Plt Count 127 L MPV 10.0 Immature Gran % (Auto) Neut % (Auto) Lymph % (Auto) [place] % (Auto) Eos % (Auto) Baso % (Auto) Lymph # (Auto) [place] # (Auto) Eos # (Auto) Baso # (Auto) Abs Immat Gran (auto) Absolute Neuts (auto) Absolute Nucleated RBC 0.000 Nucleated RBC % (auto) 0.0 PT INR Anion Gap Estim Creat Clear Calc Estimated GFR Random Glucose Fasting Glucose Calcium Magnesium Total Bilirubin Direct Bilirubin AST ALT Alkaline Phosphatase Lactate Dehydrogenase Total Protein Albumin Lipase Urine Color DK YELLOW Urine Appearance CLEAR Urine pH 7.5 Ur Specific [place] 1.020 Urine Protein TRACE Urine Glucose (UA) NEG Urine Ketones 15 Urine Blood NEG Urine Nitrite NEG Ur Leukocyte Esterase NEG Ethyl Alcohol COVID-19 ([facility]) Negative COVID-19 Clin Com See Note 08/11/21 08/11/21 05:58 05:58 MCV MCH MCHC RDW Plt Count MPV Immature Gran % (Auto) Neut % (Auto) Lymph % (Auto) [place] % (Auto) Eos % (Auto) Baso % (Auto) Lymph # (Auto) [place] # (Auto) Eos # (Auto) Baso # (Auto) Abs Immat Gran (auto) Absolute Neuts (auto) Absolute Nucleated RBC Nucleated RBC % (auto) PT 15.1 H INR 1.3 H Anion Gap 12 Estim Creat Clear Calc 187.9 Estimated GFR > 60 Random Glucose Fasting Glucose 122 H Calcium 8.8 D Magnesium Total Bilirubin 4.5 H Direct Bilirubin 2.8 H AST 49 H ALT 31 Alkaline Phosphatase 260 H Lactate Dehydrogenase Total Protein 6.8 Albumin 3.5 Lipase Urine Color Urine Appearance Urine pH Ur Specific [place] Urine Protein Urine Glucose (UA) Urine Ketones Urine Blood Urine Nitrite Ur Leukocyte Esterase Ethyl Alcohol COVID-19 ([facility]) COVID-19 Clin Com Assessment and Plan (1) Abdominal pain: Status: Acute Plan 55M presented with epigastric pain acute alcoholic pancreatitis hasnt eaten anything, but still wants low fat diet ordered continue IVF, pain control alcohol dependence with withdrawal pheonobarb, ciwa alcoholic cirrhosis outpatient follow up, etoh cessation dvt prophylaxis lovenox full code Quality Stroke Does the patient have a stroke diagnosis?: No VTE Prior VTE?: No VTE Risk Level:: Medical - moderate - high VTE Device Contraindication: Treatment Not Indicated VTE Drug Contraindication: N/A - Med Ordered
[2021-08-11] MEDS: Pravastatin Sodium 10 MG TABLET PO (09:55)
[2021-08-11] MEDS: PARoxetine HCL 20 MG TABLET PO (09:55)
[2021-08-11] MEDS: Cyanocobalamin (Vitamin B-12) 1,000 MCG TABLET 1000 MCG PO (09:55)
[2021-08-11] MEDS: PHENobarbitaL 30 MG TABLET 60 MG PO ×2 (09:58→20:13)
[2021-08-11] MEDS: Thiamine HCL 100 MG TABLET PO (09:59)
[2021-08-11] MEDS: Folic Acid 1 MG TABLET PO (09:59)
[2021-08-11] MEDS: Lipase/Prot/Amylase 24/76/120K 1 CAP CAPSULE.DR PO ×3 (09:59→18:12)
[2021-08-11] MEDS: 0.9 % Sodium Chloride Flush 3 ML SYRINGE IVFLUSH ×2 (10:58→20:14)
[2021-08-11 11:22] VITALS: BP 168/91; PULSE 86; RESP 17; TEMP 36.8; O2SAT 94
[2021-08-11 15:29] VITALS: BP 166/100; PULSE 93; RESP 15; TEMP 37.1; O2SAT 96
[2021-08-11] MEDS: Enoxaparin Sodium 40 MG/0.4 ML SYRINGE SUBCUT (18:12)
[2021-08-11 19:31] VITALS: BP 169/101; PULSE 94; RESP 16; TEMP 37.2; O2SAT 94
[2021-08-11] MEDS: Imipramine HCl 10 MG TABLET PO (20:13)
[2021-08-12] VITALS: BP 162/101; PULSE 94; RESP 16; TEMP 36.7; O2SAT 98
[2021-08-12] MEDS: Morphine Sulfate 4 MG/ML CARTRIDGE IVPUSH (02:19)
[2021-08-12] MEDS: Lactated Ringers 1,000 ML 150 ML IVCONT (02:19)
[2021-08-12 04:00] VITALS: BP 155/89; PULSE 103; RESP 16; TEMP 36.8; O2SAT 98
[2021-08-12] MEDS: Omeprazole 40 MG CAPSULE.DR PO (05:48)
[2021-08-12 06:43] LABS: Hematocrit 42.2 % (42.0-52.0); Mean Corpuscular HGB Conc 33.2 g/dl (31.0-36.0); Mean Corpuscular Hemoglobin 32.4 pg (27.0-33.0); Mean Corpuscular Volume 97.7 fL (80.0-98.0); Mean Platelet Volume 9.8 fL (9.4-12.4); Platelet Count 130 X10*3/uL (160-400); Red Blood Count 4.32 X10*6/uL (4.60-5.80); Red Cell Distribution Width 12.6 % (11.0-16.0); White Blood Count 10.4 X10*3/uL (4.8-10.8)
[2021-08-12 07:24] LABS: Anion Gap 13 (12-20); Blood Urea Nitrogen 9 mg/dL (9-16); Carbon Dioxide 25 mmol/L (22-29); Chloride 98 mmol/L (96-108); Creatinine Clr Calc Pharmacy 187.9; Estimated Glomerular Filt Rate > 60; Glucose Fasting 111 mg/dL (60-99); Potassium 3.8 mmol/L (3.3-5.1); Sodium 132 mmol/L (135-145)
[2021-08-12 07:50] VITALS: BP 168/90; PULSE 100; RESP 18; TEMP 36.3; O2SAT 95
--- NOTE | 2021-08-12 09:24 | PM.DS ---
DS: Providers Provider Date of Service: 08/12/21 Date of admission: 08/10/21 17:07 Primary care physician: Martin Avilez MD DS: Diagnosis Discharge Diagnosis (1) Abdominal pain: Status: Acute DS: Summary Hospital Course Hospital Course: Patient was admitted for acute alcoholic pancreatitis. He was given IV fluids and pain medications. Patient's stasis pain improved. He is having no problem drinking, he reports that he would have no problem eating solids but is not interested in eating hospital food. Course was complicated by alcohol dependence with withdrawal. He was treated with phenobarbital and withdrawal symptoms improved. Patient was educated about his alcohol cirrhosis and on alcohol cessation. He should follow up with GI. Time Spent with Patient Time attestation: Total time spent providing and/or coordinating discharge services: Discharge coordination time: Greater than 30 minutes Quality: Stroke Does the patient have a stroke diagnosis?: No Physical Exam Vital Signs: Vital Signs: Last Vital Signs Temp 97.4 F 08/12/21 07:50 Pulse 100 08/12/21 07:50 Resp 18 08/12/21 07:50 BP 168/90 H 08/12/21 07:50 Pulse Ox 95 08/12/21 07:50 BMI result Body Mass Index 32.1 General: AO X 3, no acute distress, juandiced Resp: CTA bilateral, no accessory muscles used CVS: S1,S2,RRR GI: soft, non tender, non distended Neuro: motor grossly intact, alert Psych: appropriate affect, appropriate insight DS: Data Data Completed and Pending Labs on day of discharge: Laboratory Results - last 24 hr 08/12/21 08/12/21 06:16 06:16 WBC 10.4 RBC 4.32 L Hgb 14.0 Hct 42.2 MCV 97.7 MCH 32.4 MCHC 33.2 RDW 12.6 Plt Count 130 L MPV 9.8 Absolute Nucleated RBC 0.000 Nucleated RBC % (auto) 0.0 Sodium 132 L Potassium 3.8 Chloride 98 Carbon Dioxide 25 Anion Gap 13 BUN 9 Creatinine 0.66 Estim Creat Clear Calc 187.9 Estimated GFR > 60 Fasting Glucose 111 H Calcium 9.0 Discharge Plan Discharge Patient Disposition: Home, Self-Care Discharge Diagnosis: etoh withdrawal, pancreatitis, cirrhosis Referrals: Martin Avilez MD [Primary Care Provider] - 1 Week Discharge Medications: Continued omeprazole 40 mg capsule,delayed release(DR/EC) 1 cap PO DAILY 0RF paroxetine HCl 20 mg tablet 1 tab PO DAILY 0RF Creon 24,000-76,000 -120,000 unit capsule,delayed release(DR/EC) 1 cap PO TIDWM 0RF Rx Instructions: administer with meals and/or snacks folic acid 1 mg tablet 1 mg PO DAILY 0RF bupropion HCl 300 mg tablet extended release 24 hr 300 mg PO DAILY 0RF pravastatin 10 mg tablet 10 mg PO DAILY 0RF thiamine HCl (vitamin B1) 100 mg tablet 100 mg PO DAILY 0RF cyanocobalamin (vitamin B-12) 1,000 mcg tablet 1,000 mcg PO DAILY 0RF topiramate 25 mg tablet 25 mg PO BID 0RF lisinopril 20 mg tablet 20 mg PO BID 0RF imipramine HCl 10 mg tablet 10 mg PO BEDTIME 30 Days Qty: 30 6RF Discharge Orders: Discharge Order (Routine); Ordered 08/12/21 Ordered By: Robert Casas Diet: advance to usual diet Activity on Discharge: As tolerated Stand Alone Forms: Patient Portal Discharge page Care Plan Goals: recovery Health Concerns: ETOH, cirrhosis Plan of Treatment: avoid etoh, follow up with gi Assessment: see above
--- NOTE | 2021-08-12 10:02 | MHC.CM.PN ---
pt dcd home no skilled servceis ordered by
[2021-08-12] MEDS: PHENobarbitaL 30 MG TABLET 60 MG PO (10:38)
[2021-08-12] MEDS: Pravastatin Sodium 10 MG TABLET PO (10:39)
[2021-08-12] MEDS: Folic Acid 1 MG TABLET PO (10:39)
[2021-08-12] MEDS: Lipase/Prot/Amylase 24/76/120K 1 CAP CAPSULE.DR PO (10:39)
[2021-08-12] MEDS: lisinopriL 20 MG TABLET PO (10:39)
[2021-08-12] MEDS: Cyanocobalamin (Vitamin B-12) 1,000 MCG TABLET 1000 MCG PO (10:39)
[2021-08-12] MEDS: PARoxetine HCL 20 MG TABLET PO (10:40)
[2021-08-12] MEDS: Thiamine HCL 100 MG TABLET PO (10:40)
[2021-08-12] MEDS: Topiramate 25 MG TABLET PO (10:40)
== END 2021-08-12 10:40 | disposition home or self-care (01) | DRG 282 ==
LOC: HO.ED 16:08 → HO.EDOVER 17:16 → HO.IMC 18:46
PROVIDERS: Admitting Provider Internal Medicine; Emergency Provider Emergency Medicine; PCP Internal Medicine; Visit Provider Internal Medicine
DX: K85.20 Alcohol induced acute pancreatitis without necrosis or infection (principal); K70.30 Alcoholic cirrhosis of liver without ascites; F10.239 Alcohol dependence with withdrawal, unspecified; F17.210 Nicotine dependence, cigarettes, uncomplicated; Z20.822 Contact with and (suspected) exposure to COVID-19; Z71.6 Tobacco abuse counseling; Z79.899 Other long term (current) drug therapy
CPT/HCPCS: 36415; 74177; 80048; 80076; 81003; 82077; 83615; 83690; 83735; 85025; 85027; 85610; 87635; 93005; 96361; 96372; 96374; 96375; 99285; J1650; J2060; J2270; J2405; J2560; Q9967

== ENCOUNTER 2021-08-18 12:42 | Outpatient (REF) | payer MEDICAID, SELFPAY ==
--- NOTE | ~2021-08-18 | MR_ITS ---
EXAMINATION: MR ABDOMEN WITHOUT AND WITH CONTRAST CLINICAL INFORMATION: Cirrhosis. COMPARISON: Previous CT of the abdomen and pelvis July 2021 and abdominal ultrasound July 2021 TECHNIQUE: MR abdomen was performed without and with use of 10 mL intravenous Gadavist gadolinium contrast. Postcontrast images are performed in multiphase dynamic sequences. Imaging was performed in 3 planes. FINDINGS: LUNG BASES: There is a [id number] right pleural effusion. LIVER, GALLBLADDER, AND BILIARY TREE: The contour of the liver appears irregular or scalloped. There is hypertrophy of the left lobe and caudate lobe of the liver. Findings are suggestive of cirrhosis. The liver is enlarged. The right lobe measures 28 cm in length. There is signal loss in the liver on [id number] sequences suggestive of fatty infiltration. There is markedly heterogeneous liver enhancement on dynamic phase imaging. This is less apparent on delayed postcontrast sequences. A focal liver lesion is not appreciated. Specifically, no early arterial phase enhancing lesion with washout and pseudocapsule formation characteristic of hepatocellular carcinoma is seen. There is mass effect on the hepatic veins. The hepatic veins and portal vein are patent. The gallbladder is contracted. There is gallbladder wall thickening and edema. This may be related to the patient's liver disease. PANCREAS: The pancreas is normal in signal and demonstrates normal enhancement. The main pancreatic duct is normal. There is abnormal signal seen surrounding the pancreas and in the root of the small bowel mesentery. This finding is similar to recent CT scan. SPLEEN: The spleen is enlarged and measures 18 cm in length. There is a 1 cm early arterial phase enhancing lesion in the spleen, for example axial image 77 post contrast. This is imperceptible in the spleen on later dynamic phase imaging and delayed imaging and probably represents a hemangioma. ADRENAL GLANDS: Normal. KIDNEYS AND URETERS: There is a 1 cm cyst in the right kidney. The kidneys are otherwise normal. GASTROINTESTINAL TRACT: No bowel obstruction. No ascites or fluid collection. ABDOMINAL WALL: There is a small umbilical hernia. LYMPH NODES: There are prominent periportal, peripancreatic and upper abdominal retroperitoneal lymph nodes. This is similar to CT scan. VASCULAR: The abdominal aorta is normal in caliber. No aneurysm is seen. The splenic, portal and hepatic veins are patent. There are upper abdominal varices including perigastric and paraesophageal varices. OSSEOUS STRUCTURES: Marrow signal normal. There are degenerative changes of the spine. MR/MR abdomen wo/w con IMPRESSION: Cirrhotic-appearing liver. The liver appears enlarged, and there is evidence of fatty infiltration. The liver demonstrates markedly abnormal heterogeneous enhancement on dynamic phase imaging and appears to normally enhance on delayed sequences. No characteristic signal abnormality of early arterial phase enhancement, rapid washout and pseudocapsule formation characteristic of hepatocellular carcinoma is seen. Splenomegaly. Ascites and right pleural effusion. Contracted gallbladder. Gallbladder wall thickening and edema. This may be related to liver disease. Enlarged periportal and upper abdominal lymph nodes. Stable stranding of the fat around the pancreas and in the small bowel mesentery.
== END 2021-08-18 12:43 | disposition home or self-care (01) ==
LOC: HO.MRI 12:42
PROVIDERS: Visit Provider Nurse Practitioner
DX: K74.60 Unspecified cirrhosis of liver (principal); R16.0 Hepatomegaly, not elsewhere classified; R11.0 Nausea
CPT/HCPCS: 74183; A9585

== ENCOUNTER → 2021-08-23 13:14 | Outpatient (BNVA) | payer MEDICAID, SELFPAY | PROVIDERS: PCP Internal Medicine; Referring Provider Internal Medicine; Visit Provider Nurse Practitioner | DX: K74.60 Unspecified cirrhosis of liver (principal); K85.20 Alcohol induced acute pancreatitis without necrosis or infection; F10.20 Alcohol dependence, uncomplicated; I85.00 Esophageal varices without bleeding; J90 Pleural effusion, not elsewhere classified | CPT/HCPCS: 99212 ==

== ENCOUNTER 2021-09-16 07:33 | Outpatient (REF) | payer MEDICAID, SELFPAY ==
--- NOTE | ~2021-09-16 | XR_ITS ---
EXAMINATION: XR CHEST CLINICAL INFORMATION: Pleural effusion COMPARISON: abdominal pelvic CT scan July 2021 TECHNIQUE: 2 views of the chest were obtained. FINDINGS: The cardiac and mediastinal contours are normal. The lungs are clear. There is blunting at the right costophrenic angle suggestive of a small right pleural effusion. This is probably unchanged from previous abdominal and pelvic CT July 2021. There is no left pleural effusion. There is no pneumothorax. There are degenerative changes of the spine. XR/XR chest 2V IMPRESSION: Small right pleural effusion probably similar to July [address] scan
== END 2021-09-16 07:34 | disposition home or self-care (01) ==
LOC: HO.XRAY 07:33
PROVIDERS: PCP Internal Medicine; Referring Provider Internal Medicine; Visit Provider Nurse Practitioner
DX: K85.20 Alcohol induced acute pancreatitis without necrosis or infection (principal); K74.60 Unspecified cirrhosis of liver; E72.20 Disorder of urea cycle metabolism, unspecified; M79.2 Neuralgia and neuritis, unspecified; F10.20 Alcohol dependence, uncomplicated; K58.0 Irritable bowel syndrome with diarrhea; J90 Pleural effusion, not elsewhere classified; Z86.010 Personal history of colon polyps
CPT/HCPCS: 71046; 99212

== ENCOUNTER 2021-10-18 07:35 | Inpatient (IN) | payer MEDICAID, SELFPAY ==
[2021-10-18] VITALS (9 sets, daily range): BP systolic 122–146; BP diastolic 74–96; PULSE 102–114; RESP 15–21; TEMP 36.1–37.1; O2SAT 92–97; BMI 30.8
--- NOTE | ~2021-10-18 | XR_ITS ---
EXAMINATION: XR CHEST CLINICAL INFORMATION: Post right thoracentesis. COMPARISON: None TECHNIQUE: 2 views of the chest were obtained. FINDINGS: There is no pneumothorax status post right thoracentesis. There is minimal blunting of right CP angle from small residual pleural effusion. There is artifact from the gauze in the right posterior lower chest. The lungs are otherwise clear and expanded. The heart size and pulmonary vascularity is normal. No gross bony abnormality seen. XR/XR chest 2V IMPRESSION: Status post right thoracentesis there is no pneumothorax. There is minimal blunting of right CP angle on inspiration views suspicious for small pleural effusion.
--- NOTE | ~2021-10-18 | US_ITS ---
EXAMINATION: ULTRASOUND-GUIDED THORACENTESIS. CLINICAL INFORMATION: Right pleural effusion of unknown etiology.. COMPARISON: None TECHNIQUE: Following explaining ultrasound-guided thoracentesis procedure, benefits and risk, a written consent was obtained the patient was placed upright sitting on preliminary ultrasound imaging was obtained through the posterior chest. An optimal site was selected and marked. The marked site was cleaned and draped in usual sterile manner. 1% lidocaine was inserted at puncture site. 3 small cystic skin incision a 4 [place] [employer] catheter was advanced into the pleural space. After observing fluid return, stylet was withdrawn and catheter connected to vacuum bottle. Initially 50 mL of fluid was collected in a syringe for testing. After observing no fluid return, catheter was removed and complete hemostasis achieved at puncture site. Sterile dressing applied at puncture site. Patient tolerated procedure extremely well. FINDINGS: On preliminary ultrasound imaging there is small to moderate right pleural effusion. Approximately 8 50 mL of fluid was removed from the left pleural space. Approximately 50 mL of fluid was sent to lab for further analysis. US/US thoracentesis IMPRESSION: Successful ultrasound-guided therapeutic paracentesis performed. The fluid collected was sent to lab for further analysis.
--- NOTE | ~2021-10-18 | XR_ITS ---
EXAMINATION: XR CHEST CLINICAL INFORMATION: Dyspnea COMPARISON: Previous chest x-ray August 2021 and thoracic spine x-ray March 2021 TECHNIQUE: Frontal view of the chest was obtained. FINDINGS: The cardiac and mediastinal contours are stable. There is an increasing small right pleural effusion. There is increasing subsegmental atelectasis at the right lung base. There is question of a small 4 mm nodule at the left lung apex overlying the left posterior third rib. This is stable compared to old chest x-ray and thoracic spine x-ray going back to March 2021. The left lung otherwise clear. No left pleural effusion is seen. There is no pneumothorax. Bony structures are unremarkable. XR/XR chest 1V IMPRESSION: Small right pleural effusion slightly increased from previous exams.
--- NOTE | ~2021-10-18 | US_ITS ---
EXAMINATION: US ABDOMEN LIMITED CLINICAL INFORMATION: Worsening liver function tests.. COMPARISON: Previous CT and MRI of the abdomen July 2021 TECHNIQUE: Real-time imaging of the right upper quadrant abdominal viscera. FINDINGS: PANCREAS: Not well visualized due to bowel gas LIVER: The liver is enlarged. The liver is a scalloped margin suggestive of cirrhosis. The liver is heterogeneous in echotexture. No focal mass is appreciated. There is nonocclusive occlusive thrombus in the portal splenic confluence. There is occlusive thrombus seen in the main portal vein. There is nonocclusive thrombus seen in the right portal vein. The left portal vein is patent. GALLBLADDER: The gallbladder is normal in size. The gallbladder wall appears thickened and echogenic. The gallbladder wall measures up to 6 mm. There is a 3 mm echogenic density adjacent to the gallbladder wall that does not move or shadow questionable for a small gallbladder wall polyp versus adherent nonshadowing gallstone. COMMON BILE DUCT: Normal in caliber measuring 0.4 cm in diameter. RIGHT KIDNEY: There is a cyst in the midpole measuring 1.6 x 1.1 x 1.4 cm. There is a echogenic density in the midpole measuring 1.2 x 0.5 x 0.7 cm. No corresponding abnormality seen on July 2021 CT scan.. The kidney measures 13 cm in maximum dimension. FREE FLUID: There is a small amount of ascites. US/US abdomen limited IMPRESSION: Cirrhotic-appearing liver. The liver is enlarged and heterogeneous in attenuation. The main portal vein thrombus. Small amount of ascites. Thickened gallbladder wall. This may be related to the patient's liver disease. Question small gallbladder wall polyp versus adherent nonshadowing stone. Right renal cyst. Echogenic area in the midpole of the right kidney. No corresponding abnormality is seen on recent CT. Nonvisualization of the pancreas.
--- NOTE | ~2021-10-18 | CT_ITS ---
EXAMINATION: CT ANGIOGRAM OF THE CHEST WITH AND WITHOUT CONTRAST (CT PULMONARY ANGIOGRAM FOR PE) CLINICAL INFORMATION: Reason for Exam pleuritic chest pain, dyspnea COMPARISON: Previous chest x-ray from earlier the same day TECHNIQUE: Prior to contrast administration, noncontrast localization images were obtained. Subsequently, multidetector volumetric imaging was performed from the thoracic inlet to below the diaphragms following the administration of 85 mL Omnipaque 350 intravenous contrast. No contrast reaction reported Sagittal, coronal, and MIP oblique sagittal reformatted images were obtained on the CT workstation, uploaded to PACS, and reviewed. This CT examination was performed using dose optimization techniques as appropriate, variously including the following: *Automated exposure control *Adjustment of mA and/or kV according to patient size (this includes techniques or standardized protocols for targeted exams where dose is matched to indication/reason for exam; i.e. extremities or head) *Use of iterative reconstruction technique Total exam dose-length product 485 mGy-cm FINDINGS: QUALITY OF STUDY/CONTRAST BOLUS: Somewhat limited due to late timing of IV contrast PULMONARY ARTERIES: No large or central pulmonary emboli. Evaluation of smaller segmental and subsegmental pulmonary arteries is limited due to timing of contrast. No definite pulmonary embolism is seen. THORACIC AORTA: No aneurysm or dissection. LUNG: There is compressive atelectasis of the right lower lobe adjacent to the effusion. The lungs are otherwise clear. PLEURA: There is a moderate right pleural effusion. There is no left pleural effusion. MEDIASTINUM: Normal heart size. No pericardial effusion. No hilar or mediastinal lymphadenopathy. No evidence of septal bowing or right heart strain. CHEST WALL/AXILLA: No axillary or internal mammary lymphadenopathy. OSSEOUS STRUCTURES: No acute or suspicious osseous abnormality. There are degenerative changes of the spine. UPPER ABDOMEN: The liver and spleen appear enlarged. There are mild cirrhotic changes of the liver. There is a small amount of ascites. There is question of gastric wall thickening versus changes due to underdistention of the proximal stomach. No reflux of contrast into the hepatic veins to suggest elevated right heart pressures. CT/CT angio chest PE protocol IMPRESSION: No evidence of large or central pulmonary embolism. Evaluation of smaller segmental and subsegmental pulmonary arteries is limited due to timing of IV contrast. Moderate right pleural effusion and compressive atelectasis of the right lower lobe. Cirrhotic-appearing liver. Hepatosplenomegaly. Small amount of ascites. VTE:
--- NOTE | 2021-10-18 07:37 | ECG_ITS ---
Test Reason : cp Blood Pressure : / mmHG Vent. Rate : 106 BPM Atrial Rate : 106 BPM P-R Int : 168 ms QRS Dur : 090 ms QT Int : 358 ms P-R-T Axes : 051 060 052 degrees QTc Int : 475 ms Sinus tachycardia Otherwise normal ECG When compared with ECG of 10-AUG-2021 13:11, No significant change was found Referred By: Generic ED Physician Electronically Signed By:YVONNE KERN
--- NOTE | 2021-10-18 07:47 | ED.SOB ---
HPI - SOB/Dyspnea General Chief Complaint: Dyspnea Stated Complaint: SOB Time Seen by Provider: 10/18/21 07:47 Source: patient and old records reviewed Mode of arrival: ambulatory Limitations: no limitations History of Present Illness MD elicited complaint: shortness of breath and pain with inspiration Pertinent past history: other (cirrhosis hx of pleural effusions) Onset (ago): week(s) (1) Context: other (known hx of effusions but now has pain in R chest with breathing) Timing: intermittent Severity: moderate Exacerbating factors: lying flat, movement, coughing, inspiration and deep breaths Relieving factors: rest Known history of: other (pleural effusions) Associated symptoms: chest pain, pain with inspiration, cough and abdominal pain Treatment prior to arrival: none Related Data Home Medications Medication Instructions Recorded Confirmed bupropion HCl 300 mg 24 hr tablet, 300 mg PO DAILY 06/10/21 10/18/21 extended release cyanocobalamin (vitamin B-12) 1,000 mcg PO DAILY 06/10/21 10/18/21 1,000 mcg tablet folic acid 1 mg tablet 1 mg PO DAILY 06/10/21 10/18/21 pravastatin 10 mg tablet 10 mg PO DAILY 06/10/21 10/18/21 thiamine HCl (vitamin B1) 100 mg 100 mg PO DAILY 06/10/21 10/18/21 tablet lisinopril 20 mg tablet 40 mg PO DAILY 08/02/21 10/18/21 [id number] 1 cap PO TIDWM 08/10/21 10/18/21 24,000-76,000-120,000 unit capsule,delayed rel (Creon) omeprazole 40 mg capsule,delayed 1 cap PO DAILY 08/10/21 10/18/21 release paroxetine HCl 20 mg tablet 1 tab PO DAILY 08/10/21 10/18/21 furosemide 20 mg tablet 1 tab PO DAILY 10/18/21 10/18/21 Previous Rx's Medication Instructions Recorded imipramine HCl 50 mg tablet 50 mg PO BEDTIME #30 tab 09/16/21 rifaximin 550 mg tablet (Xifaxan) 550 mg PO BID #60 tab 09/16/21 sucralfate 1 gram tablet (Carafate) 1 g PO .qacnoon #30 tab 09/16/21 Allergies Allergy/AdvReac Type Severity Reaction Status Date / Time No Known Drug Allergies Allergy Mild NONE Verified 03/25/22 07:40 [NO KNOWN DRUG ALLERGIES] Review of Systems Review of Systems: Constitutional : No Fever, No Chills ENT/Mouth : No sore throat, No Rhinorrhea, No Swallowing Difficulty Eyes: No Eye Pain, No Swelling, No Redness Cardiovascular : pos Chest Pain, positive SOB, No Orthopnea, no Edema Respiratory : pos Cough, No Sputum, No Wheezing, positive dyspnea Gastrointestinal : No Nausea, No Vomiting, No Diarrhea, No abdominal Pain, No Hematochezia, No Melena Genitourinary : No Dysuria, No Urinary Frequency, No Hematuria Musculoskeletal : No joint pain, No Myalgias Skin : No Skin Lesions, No rash Neuro : No Weakness, No Numbness, No Dizziness, No Headache Psych : pos Anxiety/Panic, No Depression Heme/Lymph: No Bruising, No Lymphadenopathy Endocrine : No Polyuria, No Polydipsia All other systems reviewed and are negative PMFSH Past Medical History Attestation statement: The following information was validated with the patient. Medical History Alcoholism Chronic abdominal pain Cirrhosis Elevated LFTs Elevated liver function tests GERD (gastroesophageal reflux disease) Gout Liver mass, right lobe Panniculitis Surgical History H/O cervical spine surgery H/O colonoscopy H/O hemicolectomy Family History Family History Mother Cancer Social History Social History Household Members: None Housing: Apartment Alcohol intake: current Alcohol intake frequency: 0-2 drinks per day Alcohol type: hard liquor Patient Tobacco Use Status: Current someday Tobacco user Tobacco use type: Cigarette Use of substances other than those prescribed or required for medical reasons: No Advance Directives: No Advance Directives Information Provided: No service: No Current occupational status: unemployed Physical Exam Vital Signs: Vital Signs: Last Vital Signs Temp 98.2 F 10/18/21 10:49 Pulse 103 H 10/18/21 10:49 Resp 21 H 10/18/21 10:49 BP 133/83 10/18/21 10:49 Pulse Ox 94 10/18/21 10:49 BMI result Body Mass Index 30.8 Appearance: Alert. Oriented X3. Mild acute distress. Eyes: Pupils equal, round and reactive to light. Scleral icterus ENT: Pharynx normal. Neck: Normal inspection. Neck supple. CVS: tachycardic heart rate and rhythm. Pulses normal. Respiratory: No respiratory distress. Breath sounds very diminished on R side, patient is splinting Abdomen: Soft and nontender. Skin: Skin warm and dry. jaundice skin color. Normal skin turgor. Extremities: No lower extremity edema. Neuro: Oriented X 3. No motor deficit. No sensory deficit. Tremulous and anxious Course Course Course Narrative: PO lactulose ordered repeat ativan ordered message sent to GI - Dr. Santo aware will start on phenobarb admit for ETOH withdrawal, monitor of bili, pleural effusion message sent to Dr. Santo regarding PV thrombus and recommendations - hospitalist aware, patient denies black or bloody stool MDM - SOB/Dyspnea MDM Narrative Medical decision making narrative: 56 yo male with hx of alcoholism, cirrhosis, pancreatitis, IBS, pleural effusion reports 1 week of FERMIN and feeling short of breath as well as pleuritic R sided chest pain - at this time he is anxious and has tremors last drink was 2 days ago. Will need labs, CTA for PE, EKG, IV thiamine, IV ativan. Dispo per results and findings. Lab Data Result diagrams: 10/18/21 08:14 10/18/21 08:13 Labs: Lab Results 10/18/21 10/18/21 10/18/21 Range/Units 08:13 08:13 08:13 WBC (4.8-10.8) X10*3/uL RBC (4.60-5.80) X10*6/uL Hgb (14.0-18.0) g/dl Hct (42.0-52.0) % MCV (80.0-98.0) fL MCH (27.0-33.0) pg MCHC (31.0-36.0) g/dl RDW (11.0-16.0) % Plt Count (160-400) X10*3/uL MPV (9.4-12.4) fL Immature Gran % (Auto) (0.0-0.4) % Neut % (Auto) (45-73) % Lymph % (Auto) (20-40) % [place] % (Auto) (2-11) % Eos % (Auto) (0-4) % Baso % (Auto) (0-2) % Lymph # (Auto) (1.2-4.9) X10*3/uL [place] # (Auto) (0.1-1.2) X10*3/uL Eos # (Auto) (0.0-0.4) X10*3/uL Baso # (Auto) (0.0-0.2) X10*3/uL Abs Immat Gran (auto) (0.00-0.03) X10*3/uL Absolute Neuts (auto) (2.0-8.3) x10*3/uL Absolute Nucleated RBC (0.0-0.012) X10*3/uL Nucleated RBC % (auto) (0.0-0.2) /100WBC PT (9.9-13.0) SEC INR (0.9-1.1) APTT (24.1-38.0) SEC Sodium 134 L (135-145) mmol/L Potassium 4.2 (3.3-5.1) mmol/L Chloride 97 (96-108) mmol/L Carbon Dioxide 27 (22-29) mmol/L Anion Gap 14 (12-20) BUN 7 L (9-16) mg/dL Creatinine 0.71 (0.5-1.4) mg/dL Estim Creat Clear Calc 169.2 Estimated GFR > 60 Random Glucose 111 (60-115) mg/dL Lactic Acid 1.4 (0.5-2.0) mmol/L Calcium 9.5 (8.4-10.2) mg/dL Magnesium 2.0 (1.6-2.6) mg/dL Total Bilirubin 10.0 H (0.0-1.0) mg/dL Direct Bilirubin 6.0 H (0.0-0.5) mg/dL AST 116 H (5-37) U/L ALT 42 H (0-40) U/L Alkaline Phosphatase 448 H D (39-117) U/L Ammonia 60 H (13-55) umol/L Troponin I High Sens (<3.5-35.0) ng/L B-Natriuretic Peptide (<100) pg/mL Total Protein 7.7 (6.5-8.0) g/dL Albumin 3.5 (3.5-5.0) g/dL Lipase 18 (8-78) U/L Urine Color Urine Appearance Urine pH (5.0-8.0) Ur Specific [place] (1.005-1.025) Urine Protein (NEG-TRACE) MG/DL Urine Glucose (UA) (NEG) MG/DL Urine Ketones (NEG) MG/DL Urine Blood (NEG) Urine Nitrite (NEG) Ur Leukocyte Esterase (NEG) Ethyl Alcohol mg/dL COVID-19 ([facility]) (Negative) COVID-19 Clin Com 10/18/21 10/18/21 10/18/21 Range/Units 08:14 08:14 08:14 WBC 6.4 (4.8-10.8) X10*3/uL RBC 4.20 L (4.60-5.80) X10*6/uL Hgb 13.8 L (14.0-18.0) g/dl Hct 40.8 L (42.0-52.0) % MCV 97.1 (80.0-98.0) fL MCH 32.9 (27.0-33.0) pg MCHC 33.8 (31.0-36.0) g/dl RDW 13.8 (11.0-16.0) % Plt Count 149 L (160-400) X10*3/uL MPV 9.4 (9.4-12.4) fL Immature Gran % (Auto) 0.3 (0.0-0.4) % Neut % (Auto) 66.1 (45-73) % Lymph % (Auto) 18.1 L (20-40) % [place] % (Auto) 12.4 H (2-11) % Eos % (Auto) 2.2 (0-4) % Baso % (Auto) 0.9 (0-2) % Lymph # (Auto) 1.2 (1.2-4.9) X10*3/uL [place] # (Auto) 0.8 (0.1-1.2) X10*3/uL Eos # (Auto) 0.1 (0.0-0.4) X10*3/uL Baso # (Auto) 0.1 (0.0-0.2) X10*3/uL Abs Immat Gran (auto) 0.02 (0.00-0.03) X10*3/uL Absolute Neuts (auto) 4.2 (2.0-8.3) x10*3/uL Absolute Nucleated RBC 0.000 (0.0-0.012) X10*3/uL Nucleated RBC % (auto) 0.0 (0.0-0.2) /100WBC PT 14.9 H (9.9-13.0) SEC INR 1.3 H (0.9-1.1) APTT 35.3 (24.1-38.0) SEC Sodium (135-145) mmol/L Potassium (3.3-5.1) mmol/L Chloride (96-108) mmol/L Carbon Dioxide (22-29) mmol/L Anion Gap (12-20) BUN (9-16) mg/dL Creatinine (0.5-1.4) mg/dL Estim Creat Clear Calc Estimated GFR Random Glucose (60-115) mg/dL Lactic Acid (0.5-2.0) mmol/L Calcium (8.4-10.2) mg/dL Magnesium (1.6-2.6) mg/dL Total Bilirubin (0.0-1.0) mg/dL Direct Bilirubin (0.0-0.5) mg/dL AST (5-37) U/L ALT (0-40) U/L Alkaline Phosphatase (39-117) U/L Ammonia (13-55) umol/L Troponin I High Sens < 3.5 (<3.5-35.0) ng/L B-Natriuretic Peptide 29 (<100) pg/mL Total Protein (6.5-8.0) g/dL Albumin (3.5-5.0) g/dL Lipase (8-78) U/L Urine Color Urine Appearance Urine pH (5.0-8.0) Ur Specific [place] (1.005-1.025) Urine Protein (NEG-TRACE) MG/DL Urine Glucose (UA) (NEG) MG/DL Urine Ketones (NEG) MG/DL Urine Blood (NEG) Urine Nitrite (NEG) Ur Leukocyte Esterase (NEG) Ethyl Alcohol mg/dL COVID-19 ([facility]) (Negative) COVID-19 Clin Com 10/18/21 10/18/21 10/18/21 Range/Units 08:14 08:14 08:40 WBC (4.8-10.8) X10*3/uL RBC (4.60-5.80) X10*6/uL Hgb (14.0-18.0) g/dl Hct (42.0-52.0) % MCV (80.0-98.0) fL MCH (27.0-33.0) pg MCHC (31.0-36.0) g/dl RDW (11.0-16.0) % Plt Count (160-400) X10*3/uL MPV (9.4-12.4) fL Immature Gran % (Auto) (0.0-0.4) % Neut % (Auto) (45-73) % Lymph % (Auto) (20-40) % [place] % (Auto) (2-11) % Eos % (Auto) (0-4) % Baso % (Auto) (0-2) % Lymph # (Auto) (1.2-4.9) X10*3/uL [place] # (Auto) (0.1-1.2) X10*3/uL Eos # (Auto) (0.0-0.4) X10*3/uL Baso # (Auto) (0.0-0.2) X10*3/uL Abs Immat Gran (auto) (0.00-0.03) X10*3/uL Absolute Neuts (auto) (2.0-8.3) x10*3/uL Absolute Nucleated RBC (0.0-0.012) X10*3/uL Nucleated RBC % (auto) (0.0-0.2) /100WBC PT (9.9-13.0) SEC INR (0.9-1.1) APTT (24.1-38.0) SEC Sodium (135-145) mmol/L Potassium (3.3-5.1) mmol/L Chloride (96-108) mmol/L Carbon Dioxide (22-29) mmol/L Anion Gap (12-20) BUN (9-16) mg/dL Creatinine (0.5-1.4) mg/dL Estim Creat Clear Calc Estimated GFR Random Glucose (60-115) mg/dL Lactic Acid (0.5-2.0) mmol/L Calcium (8.4-10.2) mg/dL Magnesium (1.6-2.6) mg/dL Total Bilirubin (0.0-1.0) mg/dL Direct Bilirubin (0.0-0.5) mg/dL AST (5-37) U/L ALT (0-40) U/L Alkaline Phosphatase (39-117) U/L Ammonia (13-55) umol/L Troponin I High Sens (<3.5-35.0) ng/L B-Natriuretic Peptide (<100) pg/mL Total Protein (6.5-8.0) g/dL Albumin (3.5-5.0) g/dL Lipase (8-78) U/L Urine Color DK YELLOW Urine Appearance CLEAR Urine pH 7.0 (5.0-8.0) Ur Specific [place] 1.020 (1.005-1.025) Urine Protein NEG (NEG-TRACE) MG/DL Urine Glucose (UA) NEG (NEG) MG/DL Urine Ketones NEG (NEG) MG/DL Urine Blood NEG (NEG) Urine Nitrite NEG (NEG) Ur Leukocyte Esterase NEG (NEG) Ethyl Alcohol < 10 mg/dL COVID-19 ([facility]) Negative (Negative) COVID-19 Clin Com See Note ECG Data Attestation: I personally reviewed and interpreted this ECG as follows: ECG interpretation date: 10/18/21 ECG interpretation time: 07:49 Interpretation: Rate: 106 Rhythm: sinus tachycardia [place]: normal Normal P waves. Normal REAGAN. Normal QRS complex. ST T wave : normal no BRANDT qTC: normal prior studies: no acute ischemia The study has been interpreted contemporaneously by me. . Critical Care Time Critical Care Time Critical Care Time: Yes Total Critical Care Time: 35 Attestation: review of records, IV ativan x 2, PO phenobarb protocol, medical consult, admission to facility I attest to this time spent taking care of the patient Discharge Plan Discharge Clinical Impression: Acute dyspnea, Elevated liver function tests, Hyperbilirubinemia, Pleural effusion, Hyperammonemia Alcohol withdrawal Qualifiers: Complication of substance-induced condition: uncomplicated Qualified Code(s): F10.230 - Alcohol dependence with withdrawal, uncomplicated Alcoholic cirrhosis Qualifiers: Ascites presence: unspecified Qualified Code(s): K70.30 - Alcoholic cirrhosis of liver without ascites Patient Disposition: Admitted As Inpatient
[2021-10-18 08:20] LABS: MANUAL DIFF FLAG NO
[2021-10-18] MEDS: LORazepam 2 MG/ML VIAL 1 MG IVPUSH ×2 (08:27→09:37)
[2021-10-18] MEDS: Thiamine HCL 200 MG in 0.9 % Sodium Chloride 100 ML 204 MG IV (08:28)
[2021-10-18 08:29] LABS: Basophils Absolute Auto 0.1 X10*3/uL (0.0-0.2); Basophils Percent Auto 0.9 % (0-2); Eosinophils Absolute Auto 0.1 X10*3/uL (0.0-0.4); Eosinophils Percent Auto 2.2 % (0-4); Hematocrit 40.8 % (42.0-52.0); Hemoglobin 13.8 g/dl (14.0-18.0); Imm Gran Abs Auto 0.02 X10*3/uL (0.00-0.03); Imm Gran Pct Auto 0.3 % (0.0-0.4); Lymphocytes Absolute Auto 1.2 X10*3/uL (1.2-4.9); Lymphocytes Percent Auto 18.1 % (20-40); Mean Corpuscular HGB Conc 33.8 g/dl (31.0-36.0); Mean Corpuscular Hemoglobin 32.9 pg (27.0-33.0); Mean Corpuscular Volume 97.1 fL (80.0-98.0); Mean Platelet Volume 9.4 fL (9.4-12.4); Monocytes Absolute Auto 0.8 X10*3/uL (0.1-1.2); Monocytes Percent Auto 12.4 % (2-11); Neutrophils Absolute Auto 4.2 x10*3/uL (2.0-8.3); Neutrophils Percent Auto 66.1 % (45-73); Platelet Count 149 X10*3/uL (160-400); Red Cell Distribution Width 13.8 % (11.0-16.0); White Blood Count 6.4 X10*3/uL (4.8-10.8)
[2021-10-18 08:32] LABS: INTERNATIONAL NORM RATIO 1.3 (0.9-1.1); Prothrombin Time 14.9 SEC (9.9-13.0)
[2021-10-18 08:35] LABS: Partial Thromboplastin Time 35.3 SEC (24.1-38.0)
[2021-10-18 08:35] LABS: Ammonia 60 umol/L (13-55)
[2021-10-18 08:39] LABS: Lactic Acid 1.4 mmol/L (0.5-2.0)
[2021-10-18 08:41] LABS: Ethanol < 10 mg/dL
--- NOTE | 2021-10-18 08:46 | PHA.MEDREC ---
Pharmacy Consult ? Medication Reconciliation Pharmacy has completed the medication reconciliation. Pt did not that it its sometimes difficult for him to remember to take his mid-day medications like Creon and Sucralfate. Jovita Delgado, ChrisD
[2021-10-18 08:47] LABS: Appearance Urine CLEAR; Color Urine DK YELLOW; Glucose Urine UA NEG (NEG); Leukocyte Esterase Urine NEG (NEG); Nitrite Urine NEG (NEG); Urine Blood NEG (NEG); Urine Ketones NEG (NEG); Urine Protein NEG (NEG-TRACE)
[2021-10-18 08:49] LABS: B Type Natriuretic Peptide 29 pg/mL (<100); COVID-19 Test Negative (Negative); IDNOW Serial# 16C4AD1C; Troponin-I High Sensitivity < 3.5 ng/L (<3.5-35.0)
[2021-10-18 08:51] LABS: Alanine Aminotransferase 42 U/L (0-40); Albumin Level 3.5 g/dL (3.5-5.0); Alkaline Phosphatase 448 U/L (39-117); Anion Gap 14 (12-20); Aspartate Amino Transferase 116 U/L (5-37); Blood Urea Nitrogen 7 mg/dL (9-16); Calcium 9.5 mg/dL (8.4-10.2); Carbon Dioxide 27 mmol/L (22-29); Chloride 97 mmol/L (96-108); Creatinine Clr Calc Pharmacy 169.2; Estimated Glomerular Filt Rate > 60; Glucose Random 111 mg/dL (60-115); Lipase 18 U/L (8-78); Potassium 4.2 mmol/L (3.3-5.1); Sodium 134 mmol/L (135-145); Total Protein 7.7 g/dL (6.5-8.0)
[2021-10-18] MEDS: iohexoL 350 MG/ML 100 ML INFUS..BTL 75 ML IV (09:00)
[2021-10-18] MEDS: Lactulose 20 GM/30 ML SOLUTION PO (09:38)
--- NOTE | 2021-10-18 10:42 | PC.NURSE ---
dr. moreno at bedside, pt is aware of plan of care for admission to hosp.
[2021-10-18] MEDS: PHENobarbitaL 300 MG, PHENobarbitaL 60 MG 360 MG PO (10:51)
[2021-10-18] MEDS: Furosemide 40 MG/4 ML VIAL IVPUSH ×2 (10:53→18:00)
--- NOTE | 2021-10-18 10:57 | P.HPHOSP_ITS ---
History of Present Illness Date of Service: 10/18/21 Chief Complaint: shortness of breath This is a 56 yo M with a PMH of Cirrhosis secondary to EtOh use, HTN, known small R pleural effusion who [place] [facility] [place] 3 to 4 day history of shortness of breath with associated pleurtic chest pain and a non-productive cough. The patient reports that his SOB was initially on exertion but now he feels as though he cannot take a full breath. He denies any fevers but does endorse chills and sweating. He reports mild tremors but does not feel like he is withdrawing. He reports his last drink to be 2 days ago. He is vague about his EtOH use -- stating he drinks a few vodka and cokes daily but then states he finishes a bottle of vodka in 2 days. He currently denies any abdominal symptoms. No pain, nausea/vomiting/diarrhea or loss of appetite. He reports that he was recently started on lasix (5 days prior to admission) by his PCP. In the ED, the patient was noted to be normoxic but with tachpnea and tachyca rdia. A CTA was negative for a large or central PE. It showed an increase in his known pleural effusion with compressive atelectasis. He was exhibiting early withdrawal signs and was noted to have a T. bili of 10 (previously all below 4.5). He was given IV lasix, MVI, ativan and has been started on phenobarbital. He will be admitted for further treatment and work up of his pleural effusion as well as decompensated cirrhosis. Review of Systems Review of Systems: negative except HPI [facility] Medical History Alcoholism Chronic abdominal pain Cirrhosis Elevated LFTs Elevated liver function tests GERD (gastroesophageal reflux disease) Gout Liver mass, right lobe Panniculitis Family History Mother Cancer Surgical History H/O cervical spine surgery H/O colonoscopy H/O hemicolectomy Social History Household Members: None Housing: Apartment Alcohol intake: current Alcohol intake frequency: 0-2 drinks per day Alcohol type: hard liquor Patient Tobacco Use Status: Current someday Tobacco user Tobacco use type: Cigarette Use of substances other than those prescribed or required for medical reasons: No Advance Directives: No Advance Directives Information Provided: No service: No Current occupational status: unemployed Meds Allergies Allergy/AdvReac Type Severity Reaction Status Date / Time No Known Drug Allergies Allergy Mild NONE Verified 09/16/21 07:40 [NO KNOWN DRUG ALLERGIES] Active Medications: Current Medications Ondansetron HCl (Ondansetron Hcl 4 Mg/2 Ml Vial) 4 mg IVPUSH Q8H PRN PRN Reason: Nausea and Vomiting Pharmacy Consult (Consult Rx Perform Med Rec) 1 each MISCELLANE ONCE PRN PRN Reason: Consult order Pharmacy Consult (Consult Rx Etoh Phenob Po Dose) 1 each MISCELLANE ONCE PRN; Protocol PRN Reason: Consult order Phenobarbital 200 mg/ (Phenobarbital 60 mg) 260 mg PO Q3H RYAN Stop: 10/18/21 17:01 Phenobarbital (Phenobarbital 30 Mg Tablet) 60 mg PO BID RYAN Stop: 10/20/21 21:01 Phenobarbital (Phenobarbital 30 Mg Tablet) 30 mg PO BID RYAN Stop: 10/22/21 21:01 Phenobarbital (Phenobarbital 30 Mg Tablet) 30 mg PO DAILY RYAN Stop: 10/24/21 09:01 Home Medications Medication Instructions Recorded Confirmed Last Taken Type bupropion HCl 300 mg 24 hr tablet, 300 mg PO DAILY 06/10/21 10/18/21 10/18/21 History extended release cyanocobalamin (vitamin B-12) 1,000 mcg PO DAILY 06/10/21 10/18/21 10/18/21 History 1,000 mcg tablet folic acid 1 mg tablet 1 mg PO DAILY 06/10/21 10/18/21 10/18/21 History pravastatin 10 mg tablet 10 mg PO DAILY 06/10/21 10/18/21 10/18/21 History thiamine HCl (vitamin B1) 100 mg 100 mg PO DAILY 06/10/21 10/18/21 10/18/21 History tablet lisinopril 20 mg tablet 40 mg PO DAILY 08/02/21 10/18/21 10/18/21 History plbhvk-bjqrsvzw-mzylnwa 1 cap PO TIDWM 08/10/21 10/18/21 08/10/21 History 24,000-76,000-120,000 unit capsule,delayed rel (Creon) omeprazole 40 mg capsule,delayed 1 cap PO DAILY 08/10/21 10/18/21 10/18/21 History release paroxetine HCl 20 mg tablet 1 tab PO DAILY 08/10/21 10/18/21 10/18/21 History furosemide 20 mg tablet 1 tab PO DAILY 10/18/21 10/18/21 10/18/21 History Physical Exam Vital Signs and Narrative: Vital Signs: Last Vital Signs Temp 98.2 F 10/18/21 10:49 Pulse 103 H 10/18/21 10:49 Resp 21 H 10/18/21 10:49 BP 133/83 10/18/21 10:49 Pulse Ox 94 10/18/21 10:49 BMI result Body Mass Index 30.8 Const: Other: Constitutional - Awake and Alert, mild tachypnea, Jaundiced Eyes - PERRLA, EOMI, +sclearal icterus Cardiovascular - S1S2, RRR, No edema Respiratory - Mild tachypnea with decreased lung sounds on the R Gastrointestinal - NT / ND; +BS; No rebound or guarding; no fluid thrill appreciated - No CVA tenderness Extremities - no calf tenderness bilaterally, no swelling Musculoskeletal - Normal inspection, normal ROM Skin - Warm/Dry Neurological - Alert & oriented x3, No focal deficit; +tremors of the b/l hands/finger tips Psychological - Appropriate affect Results Labs CBC and Chem 7: 10/18/21 08:14 10/18/21 08:13 Labs: Laboratory Results - last 24 hr 10/18/21 10/18/21 10/18/21 08:13 08:13 08:13 MCV MCH MCHC RDW Plt Count MPV Immature Gran % (Auto) Neut % (Auto) Lymph % (Auto) [place] % (Auto) Eos % (Auto) Baso % (Auto) Lymph # (Auto) [place] # (Auto) Eos # (Auto) Baso # (Auto) Abs Immat Gran (auto) Absolute Neuts (auto) Absolute Nucleated RBC Nucleated RBC % (auto) PT INR APTT Anion Gap 14 Estim Creat Clear Calc 169.2 Estimated GFR > 60 Random Glucose 111 Lactic Acid 1.4 Calcium 9.5 Magnesium 2.0 Total Bilirubin 10.0 H Direct Bilirubin 6.0 H AST 116 H ALT 42 H Alkaline Phosphatase 448 H D Ammonia 60 H Troponin I High Sens B-Natriuretic Peptide Total Protein 7.7 Albumin 3.5 Lipase 18 Urine Color Urine Appearance Urine pH Ur Specific [place] Urine Protein Urine Glucose (UA) Urine Ketones Urine Blood Urine Nitrite Ur Leukocyte Esterase Ethyl Alcohol COVID-19 ([facility]) COVID-19 Clin Com 10/18/21 10/18/21 10/18/21 08:14 08:14 08:14 MCV 97.1 MCH 32.9 MCHC 33.8 RDW 13.8 Plt Count 149 L MPV 9.4 Immature Gran % (Auto) 0.3 Neut % (Auto) 66.1 Lymph % (Auto) 18.1 L [place] % (Auto) 12.4 H Eos % (Auto) 2.2 Baso % (Auto) 0.9 Lymph # (Auto) 1.2 [place] # (Auto) 0.8 Eos # (Auto) 0.1 Baso # (Auto) 0.1 Abs Immat Gran (auto) 0.02 Absolute Neuts (auto) 4.2 Absolute Nucleated RBC 0.000 Nucleated RBC % (auto) 0.0 PT 14.9 H INR 1.3 H APTT 35.3 Anion Gap Estim Creat Clear Calc Estimated GFR Random Glucose Lactic Acid Calcium Magnesium Total Bilirubin Direct Bilirubin AST ALT Alkaline Phosphatase Ammonia Troponin I High Sens < 3.5 B-Natriuretic Peptide 29 Total Protein Albumin Lipase Urine Color Urine Appearance Urine pH Ur Specific [place] Urine Protein Urine Glucose (UA) Urine Ketones Urine Blood Urine Nitrite Ur Leukocyte Esterase Ethyl Alcohol COVID-19 ([facility]) COVID-19 Clin Com 10/18/21 10/18/21 10/18/21 08:14 08:14 08:40 MCV MCH MCHC RDW Plt Count MPV Immature Gran % (Auto) Neut % (Auto) Lymph % (Auto) [place] % (Auto) Eos % (Auto) Baso % (Auto) Lymph # (Auto) [place] # (Auto) Eos # (Auto) Baso # (Auto) Abs Immat Gran (auto) Absolute Neuts (auto) Absolute Nucleated RBC Nucleated RBC % (auto) PT INR APTT Anion Gap Estim Creat Clear Calc Estimated GFR Random Glucose Lactic Acid Calcium Magnesium Total Bilirubin Direct Bilirubin AST ALT Alkaline Phosphatase Ammonia Troponin I High Sens B-Natriuretic Peptide Total Protein Albumin Lipase Urine Color DK YELLOW Urine Appearance CLEAR Urine pH 7.0 Ur Specific [place] 1.020 Urine Protein NEG Urine Glucose (UA) NEG Urine Ketones NEG Urine Blood NEG Urine Nitrite NEG Ur Leukocyte Esterase NEG Ethyl Alcohol < 10 COVID-19 ([facility]) Negative COVID-19 Clin Com See Note Imaging Radiologist's Impressions: Impressions Chest X-Ray 10/18/21 08:17 IMPRESSION: Small right pleural effusion slightly increased from previous exams. Chest CTA 10/18/21 09:10 IMPRESSION: No evidence of large or central pulmonary embolism. Evaluation of smaller segmental and subsegmental pulmonary arteries is limited due to timing of IV contrast. Moderate right pleural effusion and compressive atelectasis of the right lower lobe. Cirrhotic-appearing liver. Hepatosplenomegaly. Small amount of ascites. VTE: Assessment and Plan (1) Alcohol withdrawal: Qualifiers: Complication of substance-induced condition: uncomplicated Qualified Code(s): F10.230 - Alcohol dependence with withdrawal, uncomplicated Status: Acute (2) Alcoholic cirrhosis: Qualifiers: Ascites presence: unspecified Qualified Code(s): K70.30 - Alcoholic cirrhosis of liver without ascites Status: Acute Plan This is a 56 yo M with a PMH of Cirrhosis secondary to heavy and continued alcohol use who presents to the ED with a 3 to 4 day history of progressive shortness of breath. He is found to have worsening of his known R pleural eff usion and decompensated cirrhosis. 1. Decompenstated cirrhosis MELD score -- 20 pts (19.6% estimated 3 month mortality) Patient is actively drinking, with last drink 2 days prior to admission Check U/S of RUQ (ordered and pending) continue his baseline meds commence IV lasix 40mg BID; minimal ascites seen on CT chest + clinical exam; will await abd. ultrasound to see if he needs a diagnostic tap. He has no abdominal symptoms to suggest SBP GI consult 2. Symptomatic R pleural effusion increasing per imaging IV lasix 40mg BID as above may need diagnostic / therapeutic tap if not improved monitor respiratory status closely 3. Alcohol abuse and dependence exhibiting early signs of withdrawal commence phenobarbital monitor lytes alcohol cessasation has been strongly encouraged 4. HTN hold katherine-i for now 5. Mood continue baseline meds Full Code DVT pptx, Lovenox In light of his decompensated cirrhosis + symptomatic pleural effusion + alcohol withdrawal -- I anticipate that he will require, a medically necessary, inpatient hospitalization which is likely to span 2 midnights for treatment (IV lasix, phenobarbital, possible paracentesis / thoracentesis), evaluation (specialty consultation) and to monitor response to therapy. This cannot be completed in a less acute setting. Addendum: Patient u/s reveals PV thrombus. Prior documentation from GI clinic states patient with varices on prior [place] [facility] [place] [facility] [place] Requesting [facility] [place] now. Hold off on anticoagulation and will d/w with GI on how to best proceed. Quality Stroke Does the patient have a stroke diagnosis?: No VTE Prior VTE?: No VTE Risk Level:: Medical - moderate - high VTE Device Contraindication: N/A - Device Ordered VTE Drug Contraindication: Treatment Not Indicated
[2021-10-18] MEDS: Sucralfate 1 GM TABLET PO (12:23)
[2021-10-18] MEDS: Lipase/Prot/Amylase 24/76/120K 1 CAP CAPSULE.DR PO ×2 (12:23→17:59)
[2021-10-18] MEDS: buPROPion HCl XL 300 MG TAB.ER.24H PO (12:23)
--- NOTE | 2021-10-18 13:23 | PM.GICN ---
History of Present Illness Data of Consult Service Date: 10/18/21 Requesting physician: Carson Lee Primary Care Provider: Martin Avilez MD HPI Reason for consult: PV thrombosis 56 yo M with a hx of alcohol related cirrhosis, HTN, known small R pleural effusion who I am seeing for assessment for PVT. His main reason for coming to the ED was increased exertional SOB with dry cough. He also noted a sharp pain on the rigt chest worse with breathing and movement. It radiates to lower chest and upper abdomen. He denies any fevers but does endorse chills and sweating. He does drink 4-5 glasses of vodka most days and last drink was 2 d ago per his report. He denies nausea/vomiting/diarrhea or loss of appetite. No melena, and no rectal bleeding.No recent covid exposure. CTA was negative for a large or central PE. It showed an increase in his known pleural effusion with compressive atelectasis. US revealed occlusive thrombus of main portal vein and non occlusive thrombus of the right portal branch and portal splenic confluence. He was exhibiting early withdrawal signs and was noted to have a T. bili of 10 (previously all below 4.5). He was given IV lasix, MVI, ativan and has been started on phenobarbital Review of Systems Review of Systems: Constitutional : No Weight loss, No Fever, + Chills ENT/Mouth : No sore throat, No Rhinorrhea Eyes: No Swelling, No Redness Cardiovascular : + Chest Pain, + SOB, No Edema Respiratory : No Cough, No Sputum, No Wheezing Gastrointestinal : see HPI Genitourinary : NO Dysuria, No Urinary Frequency, No Hematuria, No Urgency Musculoskeletal : No joint pain, No Myalgias, No Joint Swelling Skin : No Skin Lesions, No rash Neuro : No Weakness, No Numbness, No Dizziness, No Headache Psych : No Anxiety/Panic, No Depression Heme/Lymph: No Bruising, No Lymphadenopathy Endocrine : No Polyuria, No Polydipsia All other systems reviewed and are negative. [facility] Past Medical History Medical History Alcoholism Chronic abdominal pain Cirrhosis Elevated LFTs Elevated liver function tests GERD (gastroesophageal reflux disease) Gout Liver mass, right lobe Panniculitis Family History Family History Mother Cancer Pertinent family history: father was alcoholic Surgical History Surgical History H/O cervical spine surgery H/O colonoscopy H/O hemicolectomy Social History Social History Household Members: None Household Members Other:: roommate Housing: Apartment Do you presently have visiting nurse or other home services: No Alcohol intake: current Alcohol intake frequency: 0-2 drinks per day Alcohol type: hard liquor Patient Tobacco Use Status: Current someday Tobacco user Tobacco use type: Cigarette service: No Current occupational status: unemployed Meds Allergies Allergy/AdvReac Type Severity Reaction Status Date / Time No Known Drug Allergies Allergy Mild NONE Verified 09/16/21 07:40 [NO KNOWN DRUG ALLERGIES] Active Medications: Current Medications Lipase/Protease/Amylase (Lipase/Prot/Amylase 24/76/120k 1 Cap Capsule.) 1 cap PO TIDWM [facility] Last Admin: 10/18/21 12:23 Dose: 1 cap Documented by: Bupropion HCl (Bupropion Hcl Xl 300 Mg Tab.Er.24h) 300 mg PO DAILY [facility] Last Admin: 10/18/21 12:23 Dose: 300 mg Documented by: Cyanocobalamin (Cyanocobalamin (Vitamin B-12) 1,000 Mcg Tablet) 1,000 mcg PO DAILY [facility] Enoxaparin Sodium (Enoxaparin Sodium 40 Mg/0.4 Ml Syringe) 40 mg SUBCUT Q24H [facility] Last Admin: 10/18/21 12:25 Dose: Not Given Documented by: Folic Acid (Folic Acid 1 Mg Tablet) 1 mg PO DAILY [facility] Furosemide (Furosemide 40 Mg/4 Ml Vial) 40 mg IVPUSH BID@0900,1800 [facility]; Protocol Imipramine HCl (Imipramine Hcl 50 Mg Tablet) 50 mg PO BEDTIME [facility] Omeprazole (Omeprazole 40 Mg Capsule.) 40 mg PO DAILY [facility] Ondansetron HCl (Ondansetron Hcl 4 Mg/2 Ml Vial) 4 mg IVPUSH Q8H PRN PRN Reason: Nausea and Vomiting Paroxetine HCl (Paroxetine Hcl 20 Mg Tablet) 20 mg PO DAILY [facility] Pharmacy Consult (Consult Rx Perform Med Rec) 1 each MISCELLANE ONCE PRN PRN Reason: Consult order Pharmacy Consult (Consult Rx Etoh Phenob Po Dose) 1 each MISCELLANE ONCE PRN; Protocol PRN Reason: Consult order Phenobarbital 200 mg/ (Phenobarbital 60 mg) 260 mg PO Q3H [facility] Stop: 10/18/21 17:01 Phenobarbital (Phenobarbital 30 Mg Tablet) 60 mg PO BID [facility] Stop: 10/20/21 21:01 Phenobarbital (Phenobarbital 30 Mg Tablet) 30 mg PO BID [facility] Stop: 10/22/21 21:01 Phenobarbital (Phenobarbital 30 Mg Tablet) 30 mg PO DAILY [facility] Stop: 10/24/21 09:01 Rifaximin (Rifaximin 550 Mg Tablet) 550 mg PO BID [facility] Sucralfate (Sucralfate 1 Gm Tablet) 1 gm PO DAILY@1200 [facility] Last Admin: 10/18/21 12:23 Dose: 1 gm Documented by: Thiamine HCl (Thiamine Hcl 100 Mg Tablet) 100 mg PO DAILY [facility] Home Medications Medication Instructions Recorded Confirmed Last Taken Type bupropion HCl 300 mg 24 hr tablet, 300 mg PO DAILY 06/10/21 10/18/21 10/18/21 History extended release cyanocobalamin (vitamin B-12) 1,000 mcg PO DAILY 06/10/21 10/18/21 10/18/21 History 1,000 mcg tablet folic acid 1 mg tablet 1 mg PO DAILY 06/10/21 10/18/21 10/18/21 History pravastatin 10 mg tablet 10 mg PO DAILY 06/10/21 10/18/21 10/18/21 History thiamine HCl (vitamin B1) 100 mg 100 mg PO DAILY 06/10/21 10/18/21 10/18/21 History tablet lisinopril 20 mg tablet 40 mg PO DAILY 08/02/21 10/18/21 10/18/21 History yihwpo-[id number] 1 cap PO TIDWM 08/10/21 10/18/21 08/10/21 History 24,000-76,000-120,000 unit capsule,delayed rel (Creon) omeprazole 40 mg capsule,delayed 1 cap PO DAILY 08/10/21 10/18/21 10/18/21 History release paroxetine HCl 20 mg tablet 1 tab PO DAILY 08/10/21 10/18/21 10/18/21 History furosemide 20 mg tablet 1 tab PO DAILY 10/18/21 10/18/21 10/18/21 History Physical Exam Vital Signs: Vital Signs: Last Vital Signs Temp 98.1 F 10/18/21 12:19 Pulse 112 H 10/18/21 12:19 Resp 18 10/18/21 12:19 BP 134/96 H 10/18/21 12:19 Pulse Ox 96 10/18/21 12:19 BMI result Body Mass Index 30.8 Const: Other: Constitutional - Awake and Alert, mild tachypnea, Jaundiced Eyes - PERRLA, EOMI, +sclearal icterus Cardiovascular - S1S2, RRR, No edema Respiratory - Mild tachypnea with decreased lung sounds on the R Gastrointestinal - NT / ND; +BS; No rebound or guarding; no fluid thrill appreciated - No CVA tenderness Extremities - no calf tenderness bilaterally, no swelling Musculoskeletal - Normal inspection, normal ROM Skin - Warm/Dry Neurological - Alert & oriented x3, No focal deficit; +tremors of the b/l hands/finger tips Psychological - Appropriate affect Extrem: General: Yes normal to inspection Psych: Appearance: grossly normal Results Labs CBC & Chem 7: 10/18/21 08:14 10/18/21 08:13 Labs: Short CBC 10/18/21 Range/Units 08:14 WBC 6.4 (4.8-10.8) X10*3/uL Hgb 13.8 L (14.0-18.0) g/dl Hct 40.8 L (42.0-52.0) % Plt Count 149 L (160-400) X10*3/uL BMP 10/18/21 08:13 Sodium 134 L Potassium 4.2 Chloride 97 Carbon Dioxide 27 BUN 7 L Creatinine 0.71 Calcium 9.5 Liver Function 10/18/21 Range/Units 08:13 Total Bilirubin 10.0 H (0.0-1.0) mg/dL Direct Bilirubin 6.0 H (0.0-0.5) mg/dL AST 116 H (5-37) U/L ALT 42 H (0-40) U/L Alkaline Phosphatase 448 H D (39-117) U/L Albumin 3.5 (3.5-5.0) g/dL Urine 10/18/21 Range/Units 08:40 Urine Color DK YELLOW Urine Appearance CLEAR Urine pH 7.0 (5.0-8.0) Ur Specific [place] 1.020 (1.005-1.025) Urine Protein NEG (NEG-TRACE) MG/DL Urine Glucose (UA) NEG (NEG) MG/DL Assessment and Plan (1) Alcoholic cirrhosis: Qualifiers: Ascites presence: unspecified Qualified Code(s): K70.30 - Alcoholic cirrhosis of liver without ascites Status: Acute Plan 1/ Acute on chronic liver failure with acute alcoholic hepatitis complicated by 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 MRI few months ago wth HCC but mass effect noted on hepatic veins. PLAN: 1/ Maddrey score is <32 suggesting good prognosis, would hold on steroids 2/ tap pleural fluid to r/o SBE, parpapneumonic effusion, consider ECHO to r/o cardiac cause 3/ can use IV lasix and aldactone, and titrate to effect, can start with 20 mg IV lasix and 50 mg aldactone 4/ can start lovenox donte given clot around pleno portal confluence --prevent extension, I advised him needs to really stop drinking due to higher risks of bleeding and falls, injury etc. will need at least 3-6 months, may need indefinite 5/ EGD this admission to check for varices. Maybe tomorrow or depending on OR timings. Procedures Date of Service Date of Service: 10/18/21
[2021-10-18] MEDS: PHENobarbitaL 200 MG, PHENobarbitaL 60 MG 260 MG PO ×2 (13:57→17:58)
[2021-10-18] MEDS: Enoxaparin Sodium 120 MG/0.8 ML SYRINGE 110 MG SUBCUT (14:08)
--- NOTE | 2021-10-18 15:36 | PC.NURSE ---
Pt remains alert and oriented x4, calm and cooperative. Pt denies pain at this time. Vitals stable. IV intact and flushed without issues. Pt ambulated to bathroom with RN present, pt noted to be steady on feet. Educated on being amditted and going to room 471, stated an understanding and agrees to care plan. Report given to DANIA Samayoa.
[2021-10-18] MEDS: rifAXIMin 550 MG TABLET PO (20:40)
[2021-10-18] MEDS: Imipramine HCl 50 MG TABLET PO (20:40)
[2021-10-19] VITALS (10 sets, daily range): BP systolic 104–138; BP diastolic 51–87; PULSE 98–112; RESP 16–20; TEMP 36.3–37.7; O2SAT 91–97
[2021-10-19 06:40] LABS: Hematocrit 41.1 % (42.0-52.0); Mean Corpuscular HGB Conc 34.1 g/dl (31.0-36.0); Mean Corpuscular Hemoglobin 33.3 pg (27.0-33.0); Mean Corpuscular Volume 97.6 fL (80.0-98.0); Mean Platelet Volume 9.7 fL (9.4-12.4); Platelet Count 152 X10*3/uL (160-400); Red Blood Count 4.21 X10*6/uL (4.60-5.80); Red Cell Distribution Width 13.9 % (11.0-16.0); White Blood Count 6.5 X10*3/uL (4.8-10.8)
[2021-10-19 06:58] LABS: Alanine Aminotransferase 38 U/L (0-40); Albumin Level 3.5 g/dL (3.5-5.0); Alkaline Phosphatase 433 U/L (39-117); Aspartate Amino Transferase 97 U/L (5-37); Bilirubin Direct 6.3 mg/dL (0.0-0.5); Lactate Dehydrogenase 156 U/L (118-273); Total Protein 7.6 g/dL (6.5-8.0)
[2021-10-19 07:02] LABS: Anion Gap 13 (12-20); Blood Urea Nitrogen 11 mg/dL (9-16); Calcium 9.4 mg/dL (8.4-10.2); Carbon Dioxide 30 mmol/L (22-29); Chloride 96 mmol/L (96-108); Creatinine Clr Calc Pharmacy 152.1; Estimated Glomerular Filt Rate > 60; Glucose Random 98 mg/dL (60-115); Potassium 4.5 mmol/L (3.3-5.1); Sodium 134 mmol/L (135-145)
[2021-10-19 07:03] LABS: INTERNATIONAL NORM RATIO 1.3 (0.9-1.1); Prothrombin Time 15.4 SEC (9.9-13.0)
[2021-10-19] MEDS: Furosemide 40 MG/4 ML VIAL IVPUSH (08:55)
[2021-10-19] MEDS: Omeprazole 40 MG CAPSULE.DR PO (08:56)
[2021-10-19] MEDS: Cyanocobalamin (Vitamin B-12) 1,000 MCG TABLET 1000 MCG PO (08:56)
[2021-10-19] MEDS: PARoxetine HCL 20 MG TABLET PO (08:56)
[2021-10-19] MEDS: Lipase/Prot/Amylase 24/76/120K 1 CAP CAPSULE.DR PO ×3 (08:56→17:48)
[2021-10-19] MEDS: Folic Acid 1 MG TABLET PO (08:56)
[2021-10-19] MEDS: rifAXIMin 550 MG TABLET PO ×2 (08:56→20:42)
[2021-10-19] MEDS: buPROPion HCl XL 300 MG TAB.ER.24H PO (08:56)
[2021-10-19] MEDS: PHENobarbitaL 30 MG TABLET 60 MG PO ×2 (08:56→20:43)
[2021-10-19] MEDS: Thiamine HCL 100 MG TABLET PO (08:56)
--- NOTE | 2021-10-19 09:03 | MHC.CM.PN ---
MALE 56 DX CIRRHOSIS LIVES W ROOMATE. HE IS INDEPENDENT ALL FUNCTIONAL MOBILITY. VAX J+J X1 PFIZER X 1. PCP DR GARCÍA. DP HOME NO SERVICES PATIENT WILL ARRANGE FOR TRANSPORTATION.
--- NOTE | 2021-10-19 09:54 | HO.PM.IMPN ---
Subjective Subjective Date of Service: 10/19/21 Interval History: seen and examined this AM reports that he is still getting short of breath with minimal exertion reports non-productive cough denies fevers or chills Review of Systems negative except HPI Physical Exam Vital Signs: Vital Signs: Last Vital Signs Temp 98.7 F 10/19/21 07:59 Pulse 104 H 10/19/21 07:59 Resp 20 10/19/21 07:59 BP 118/67 10/19/21 07:59 Pulse Ox 94 10/19/21 07:59 BMI result Body Mass Index 30.8 Const: Other: General - no acute distress, appears comfortable, +jaundice Cardiovascular - regular rate and rhythm, S1-S2 Lungs - dim sound R mid/base; L side clear Abdomen - soft, nontender, no rebound or guarding Extremities - no edema bilaterally Neuro - awake and alert, no focal deficits Objective Data Active Medications Lipase/Protease/Amylase (Lipase/Prot/Amylase 24/76/120k 1 Cap Capsule.Dr) 1 cap PO TIDWM [facility] Last Admin: 10/19/21 08:56 Dose: 1 cap Documented by: SHUKRI Bupropion HCl (Bupropion Hcl Xl 300 Mg Tab.Er.24h) 300 mg PO DAILY [facility] Last Admin: 10/19/21 08:56 Dose: 300 mg Documented by: SHUKRI Cyanocobalamin (Cyanocobalamin (Vitamin B-12) 1,000 Mcg Tablet) 1,000 mcg PO DAILY [facility] Last Admin: 10/19/21 08:56 Dose: 1,000 mcg Documented by: SHUKRI Enoxaparin Sodium (Enoxaparin Sodium 120 Mg/0.8 Ml Syringe) 110 mg SUBCUT Q12H [facility] Last Admin: 10/18/21 14:08 Dose: 110 mg Documented by: KATTY Folic Acid (Folic Acid 1 Mg Tablet) 1 mg PO DAILY [facility] Last Admin: 10/19/21 08:56 Dose: 1 mg Documented by: SHUKRI Furosemide (Furosemide 40 Mg/4 Ml Vial) 40 mg IVPUSH BID@0900,1800 [facility]; Protocol Last Admin: 10/19/21 08:55 Dose: 40 mg Documented by: SHUKRI Imipramine HCl (Imipramine Hcl 50 Mg Tablet) 50 mg PO BEDTIME [facility] Last Admin: 10/18/21 20:40 Dose: 50 mg Documented by: TIN Omeprazole (Omeprazole 40 Mg Capsule.Dr) 40 mg PO DAILY [facility] Last Admin: 10/19/21 08:56 Dose: 40 mg Documented by: SHUKRI Ondansetron HCl (Ondansetron Hcl 4 Mg/2 Ml Vial) 4 mg IVPUSH Q8H PRN PRN Reason: Nausea and Vomiting Paroxetine HCl (Paroxetine Hcl 20 Mg Tablet) 20 mg PO DAILY [facility] Last Admin: 10/19/21 08:56 Dose: 20 mg Documented by: SHUKRI Pharmacy Consult (Consult Rx Perform Med Rec) 1 each MISCELLANE ONCE PRN PRN Reason: Consult order Pharmacy Consult (Consult Rx Etoh Phenob Po Dose) 1 each MISCELLANE ONCE PRN; Protocol PRN Reason: Consult order Phenobarbital (Phenobarbital 30 Mg Tablet) 60 mg PO BID [facility] Stop: 10/20/21 21:01 Last Admin: 10/19/21 08:56 Dose: 60 mg Documented by: SHUKRI Phenobarbital (Phenobarbital 30 Mg Tablet) 30 mg PO BID [facility] Stop: 10/22/21 21:01 Phenobarbital (Phenobarbital 30 Mg Tablet) 30 mg PO DAILY [facility] Stop: 10/24/21 09:01 Rifaximin (Rifaximin 550 Mg Tablet) 550 mg PO BID [facility] Last Admin: 10/19/21 08:56 Dose: 550 mg Documented by: SHUKRI Sucralfate (Sucralfate 1 Gm Tablet) 1 gm PO DAILY@1200 [facility] Last Admin: 10/18/21 12:23 Dose: 1 gm Documented by: THI Thiamine HCl (Thiamine Hcl 100 Mg Tablet) 100 mg PO DAILY [facility] Last Admin: 10/19/21 08:56 Dose: 100 mg Documented by: SHUKRI Labs CBC & Chem 7: 10/19/21 06:08 10/19/21 06:08 Labs: Laboratory Results - last 24 hr 10/18/21 10/19/21 10/19/21 12:55 06:08 06:08 MCV 97.6 MCH 33.3 H MCHC 34.1 RDW 13.9 Plt Count 152 L MPV 9.7 Absolute Nucleated RBC 0.000 Nucleated RBC % (auto) 0.0 PT INR Anion Gap 13 Estim Creat Clear Calc 152.1 Estimated GFR > 60 Random Glucose 98 Calcium 9.4 Total Bilirubin Direct Bilirubin AST ALT Alkaline Phosphatase Lactate Dehydrogenase Total Protein Albumin Blood Type A Positive Antibody Screen NEGATIVE 10/19/21 10/19/21 06:08 06:08 MCV MCH MCHC RDW Plt Count MPV Absolute Nucleated RBC Nucleated RBC % (auto) PT 15.4 H INR 1.3 H Anion Gap Estim Creat Clear Calc Estimated GFR Random Glucose Calcium Total Bilirubin 10.0 H Direct Bilirubin 6.3 H AST 97 H ALT 38 Alkaline Phosphatase 433 H Lactate Dehydrogenase 156 Total Protein 7.6 Albumin 3.5 Blood Type Antibody Screen Assessment and Plan (1) Decompensation of cirrhosis of liver: Status: Acute Plan This is a 56 yo M with a PMH of Cirrhosis secondary to heavy and continued alcohol use who presents to the ED with a 3 to 4 day history of progressive shortness of breath. He is found to have worsening of his known R pleural effusion and decompensated cirrhosis. 1. Decompenstated cirrhosis due to acute PV (plus others -- see u/s report) thrombus MELD score -- 20 pts (19.6% estimated 3 month mortality); Maddrey's score less than 32 (no need for steroids GI input appreciated Prior Varices seen on EGD done at [facility] [place]; will need repeat EGD to determine safety of anticoagulation use Trend LFTs -- bili remains sig. elevated at 10 h/h stable continue baseline meds 2. Symptomatic R pleural effusion remains symptomatic will plan for thoracentesis this AM continue IV lasix today 3. Alcohol abuse and dependence continue to monitor with CIWA continue phenobarb monitor lyes 4. HTN hold katherine-i for now 5. Mood continue baseline meds 6. Chronic pancreatitis continue enzymes Full Code DVT pptx, Lovenox Reason for continued hospitalization: symptomatic pleural effusion requiring drianage + analysis; decomensated cirrhosis with new PV thrombus requiring treatment + evaluation with EGD Quality Stroke Does the patient have a stroke diagnosis?: No VTE Prior VTE?: No VTE Risk Level:: Medical - moderate - high VTE Device Contraindication: N/A - Device Ordered VTE Drug Contraindication: Treatment Not Indicated
[2021-10-19] MEDS: Lidocaine HCl 1 % MPF 5 ML VIAL SUBCUT (10:50)
[2021-10-19 12:02] LABS: WBC Pleural Fluid 1.926 X10*3/uL
[2021-10-19 12:03] LABS: RBC Pleural Fluid 0.003 X10*3/uL
[2021-10-19] MEDS: Sucralfate 1 GM TABLET PO (12:15)
[2021-10-19 13:02] LABS: BF Shift QC OK YES
[2021-10-19 13:03] LABS: Lymphocytes Pleural Fluid 21 %; Monocytes Pleural Fluid 2 %; Neutrophils Pleural Fluid 4 %; Other Cells Plerual Fl 73 %
--- NOTE | 2021-10-19 16:02 | MHC.SHP ---
Pre-Procedural Eval Section A Date of Service: 10/19/21 The patient is an INPATIENT: Yes The History & Physical has been completed within 30 days and I have reviewed it.: Yes Section B Chief Complaint: Decompensated cirrhosis Allergies: Allergies Allergy/AdvReac Type Severity Reaction Status Date / Time No Known Drug Allergies Allergy Mild NONE Verified 09/16/21 07:40 [NO KNOWN DRUG ALLERGIES] Plan I have reviewed the history and physical and performed a pertinent physical examination on my patient. No changes have occurred unless specified.
--- NOTE | 2021-10-19 16:08 | P.OP_ITS ---
Operative Note Operative Note Date of Service: 10/19/21 Narrative: Procedure Description: EGD Indication: portal vein thrombus and cirrhosis, to assess for varices prior to longer term anti coagulation Anesthesia: MAC FLEXIBLE TRANSORAL UPPER GASTROINTESTINAL ENDOSCOPY UPPER ENDOSCOPY Consent: Indications for the procedure and potential complications of bleeding, perforation, reaction to medications and missed diagnosis were discussed with the patient and informed consent was obtained. Instrument: Olympus GIF H 190 J mid size upper endoscope Monitoring: Vital signs and clinical assessment, continuous EKG monitoring, Pulse oximetry, Carbon Dioxide monitoring and blood pressure monitoring were done throughout the procedure. Procedure: The patient was placed in the left lateral decubitis position and pre-procedure medications were administered and a bite block was placed. The endoscope was inserted into the mouth and advanced under direct vision to the third part of duodenum. A careful inspection was made as the upper endoscope was withdrawn including a retroflexed examination of the proximal stomach; Findings and interventions are described below. Findings: Larynx:normal Esophagus: GE junction at 40 cm, diaphragm hiatus at 40 cm, x 3 cords of grade III esophageal varices noted. x 3 bands applied with good collapse. Stomach: Patchy gastric erythema and mosaic pattern consistent with portal hyp ertensive gastropathy. Grade 2 flap valve on retroflexed examination of the cardia. Duodenum: Normal bulb and descending duodenum, Intervention: esophageal varices. s/p banding Impression/Findings: esophageal varices portal hypertensive gastropathy PLAN: Carafate 1 g BId for 2 weeks [facility] PPI e.g pantoprazole 40 mg daily clears today and advance diet tomorrow can restart lovenox aftr 24 hrs ok to use beta joon e.g carvedilol, can also add statin as can reduce portal pressures.
--- NOTE | 2021-10-19 16:08 | PM.OP ---
Brief Operative Note Date of Service: 10/19/21 Pre-op diagnosis: portal vein thrombus, and hx of cirrhosis Post-op diagnosis: same Procedure: see op note Surgeon: Natalie Santo MD Anesthesia: MAC Was an High School Music Director used for this Procedure?: No Estimated blood loss (mL): 0 Condition: stable Disposition: PACU
--- NOTE | 2021-10-19 16:16 | P.CONAN_ITS ---
HPI - Anesthesia Eval Consult details Narrative: 56 yo male patient for EGD PMFSH Active Problems Active Problems: All Active Problems (Updated 10/19/21 @ 10:01 by Carson Lee MD) Decompensation of cirrhosis of liver (Acute) Acute dyspnea (Acute) Elevated liver function tests (Acute) Hyperbilirubinemia (Acute) Alcohol withdrawal (Acute) Alcoholic cirrhosis (Acute) Irritable bowel syndrome with diarrhea (Acute) Pleural effusion (Acute) Alcoholism (Acute) Cirrhosis (Acute) Abdominal pain (Acute) Acute alcoholic pancreatitis (Acute) Neuropathic pain (Acute) Hyperammonemia (Acute) Multiple adenomatous polyps (Acute) Degenerative disc disease, cervical (Acute) Chronic low back pain (Acute) Spinal stenosis (Acute) Esophageal varices (Acute) Peripheral neuropathy (Acute) Past Medical History Medical History Alcoholism Chronic abdominal pain Cirrhosis Elevated LFTs Elevated liver function tests GERD (gastroesophageal reflux disease) Gout Liver mass, right lobe Panniculitis Family History Family History Mother Cancer Family history of problems with anesthesia: No Surgical History Surgical History H/O cervical spine surgery H/O colonoscopy H/O hemicolectomy History of Problems with Anesthesia: No Social History Social History Household Members: None Household Members Other:: roommate Housing: Apartment Do you presently have visiting nurse or other home services: No Alcohol intake: current Alcohol intake frequency: 0-2 drinks per day Alcohol type: hard liquor Patient Tobacco Use Status: Current everyday Tobacco user Tobacco use type: Cigarette Cigarettes Per Day: 4 service: No Current occupational status: unemployed Meds Allergies Allergy/AdvReac Type Severity Reaction Status Date / Time No Known Drug Allergies Allergy Mild NONE Verified 09/16/21 07:40 [NO KNOWN DRUG ALLERGIES] Active Medications: Current Medications Lipase/Protease/Amylase (Lipase/Prot/Amylase 24/76/120k 1 Cap Capsule.) 1 cap PO TIDWM [facility] Last Admin: 10/19/21 12:15 Dose: 1 cap Documented by: Bupropion HCl (Bupropion Hcl Xl 300 Mg Tab.Er.24h) 300 mg PO DAILY [facility] Last Admin: 10/19/21 08:56 Dose: 300 mg Documented by: Cyanocobalamin (Cyanocobalamin (Vitamin B-12) 1,000 Mcg Tablet) 1,000 mcg PO DAILY [facility] Last Admin: 10/19/21 08:56 Dose: 1,000 mcg Documented by: Enoxaparin Sodium (Enoxaparin Sodium 120 Mg/0.8 Ml Syringe) 110 mg SUBCUT Q12H [facility] Last Admin: 10/18/21 14:08 Dose: 110 mg Documented by: Folic Acid (Folic Acid 1 Mg Tablet) 1 mg PO DAILY [facility] Last Admin: 10/19/21 08:56 Dose: 1 mg Documented by: Imipramine HCl (Imipramine Hcl 50 Mg Tablet) 50 mg PO BEDTIME [facility] Last Admin: 10/18/21 20:40 Dose: 50 mg Documented by: Omeprazole (Omeprazole 40 Mg Capsule.Dr) 40 mg PO DAILY [facility] Last Admin: 10/19/21 08:56 Dose: 40 mg Documented by: Ondansetron HCl (Ondansetron Hcl 4 Mg/2 Ml Vial) 4 mg IVPUSH Q8H PRN PRN Reason: Nausea and Vomiting Paroxetine HCl (Paroxetine Hcl 20 Mg Tablet) 20 mg PO DAILY [facility] Last Admin: 10/19/21 08:56 Dose: 20 mg Documented by: Pharmacy Consult (Consult Rx Perform Med Rec) 1 each MISCELLANE ONCE PRN PRN Reason: Consult order Pharmacy Consult (Consult Rx Etoh Phenob Po Dose) 1 each MISCELLANE ONCE PRN; Protocol PRN Reason: Consult order Phenobarbital (Phenobarbital 30 Mg Tablet) 60 mg PO BID [facility] Stop: 10/20/21 21:01 Last Admin: 10/19/21 08:56 Dose: 60 mg Documented by: Phenobarbital (Phenobarbital 30 Mg Tablet) 30 mg PO BID [facility] Stop: 10/22/21 21:01 Phenobarbital (Phenobarbital 30 Mg Tablet) 30 mg PO DAILY [facility] Stop: 10/24/21 09:01 Rifaximin (Rifaximin 550 Mg Tablet) 550 mg PO BID [facility] Last Admin: 10/19/21 08:56 Dose: 550 mg Documented by: Sucralfate (Sucralfate 1 Gm Tablet) 1 gm PO DAILY@1200 [facility] Last Admin: 10/19/21 12:15 Dose: 1 gm Documented by: Thiamine HCl (Thiamine Hcl 100 Mg Tablet) 100 mg PO DAILY [facility] Last Admin: 10/19/21 08:56 Dose: 100 mg Documented by: Home Medications Medication Instructions Recorded Confirmed Last Taken Type bupropion HCl 300 mg 24 hr tablet, 300 mg PO DAILY 06/10/21 10/18/21 10/18/21 History extended release cyanocobalamin (vitamin B-12) 1,000 mcg PO DAILY 06/10/21 10/18/21 10/18/21 History 1,000 mcg tablet folic acid 1 mg tablet 1 mg PO DAILY 06/10/21 10/18/21 10/18/21 History pravastatin 10 mg tablet 10 mg PO DAILY 06/10/21 10/18/21 10/18/21 History thiamine HCl (vitamin B1) 100 mg 100 mg PO DAILY 06/10/21 10/18/21 10/18/21 History tablet lisinopril 20 mg tablet 40 mg PO DAILY 08/02/21 10/18/21 10/18/21 History [id number] 1 cap PO TIDWM 08/10/21 10/18/21 08/10/21 History 24,000-76,000-120,000 unit capsule,delayed rel (Creon) omeprazole 40 mg capsule,delayed 1 cap PO DAILY 08/10/21 10/18/21 10/18/21 History release paroxetine HCl 20 mg tablet 1 tab PO DAILY 08/10/21 10/18/21 10/18/21 History furosemide 20 mg tablet 1 tab PO DAILY 10/18/21 10/18/21 10/18/21 History Exam Exam Date and Time: October 19, 2021 1616 Height,Weight and Vital Signs: Height 6 ft 5 in Weight 117.9 kg Last Vital Signs Temp 98.6 F 10/19/21 16:00 Pulse 98 10/19/21 16:00 Resp 18 10/19/21 16:00 BP 131/87 10/19/21 16:00 Pulse Ox 97 10/19/21 16:00 Pertinent Lab Results Pertinent Lab Results: Laboratory Tests 10/18/21 10/18/21 10/18/21 08:13 08:13 08:13 WBC RBC Hgb Hct MCV MCH MCHC RDW Plt Count MPV Immature Gran % (Auto) Neut % (Auto) Lymph % (Auto) [place] % (Auto) Eos % (Auto) Baso % (Auto) Lymph # (Auto) [place] # (Auto) Eos # (Auto) Baso # (Auto) Abs Immat Gran (auto) Absolute Neuts (auto) Absolute Nucleated RBC Nucleated RBC % (auto) PT INR APTT Sodium 134 L Potassium 4.2 Chloride 97 Carbon Dioxide 27 Anion Gap 14 BUN 7 L Creatinine 0.71 Estim Creat Clear Calc 169.2 Estimated GFR > 60 Random Glucose 111 Lactic Acid 1.4 Calcium 9.5 Magnesium 2.0 Total Bilirubin 10.0 H Direct Bilirubin 6.0 H AST 116 H ALT 42 H Alkaline Phosphatase 448 H D Ammonia 60 H Lactate Dehydrogenase Troponin I High Sens B-Natriuretic Peptide Total Protein 7.7 Albumin 3.5 Lipase 18 Urine Color Urine Appearance Urine pH Ur Specific [place] Urine Protein Urine Glucose (UA) Urine Ketones Urine Blood Urine Nitrite Ur Leukocyte Esterase Pleural WBC Pleural RBC Pleural Neutrophils Pleural Lymphocytes Pleural Monocytes Pleural Other Cells Ethyl Alcohol COVID-19 ([facility]) COVID-19 Clin Com Blood Type Antibody Screen 10/18/21 10/18/21 10/18/21 08:14 08:14 08:14 WBC 6.4 RBC 4.20 L Hgb 13.8 L Hct 40.8 L MCV 97.1 MCH 32.9 MCHC 33.8 RDW 13.8 Plt Count 149 L MPV 9.4 Immature Gran % (Auto) 0.3 Neut % (Auto) 66.1 Lymph % (Auto) 18.1 L Vernon % (Auto) 12.4 H Eos % (Auto) 2.2 Baso % (Auto) 0.9 Lymph # (Auto) 1.2 Vernon # (Auto) 0.8 Eos # (Auto) 0.1 Baso # (Auto) 0.1 Abs Immat Gran (auto) 0.02 Absolute Neuts (auto) 4.2 Absolute Nucleated RBC 0.000 Nucleated RBC % (auto) 0.0 PT 14.9 H INR 1.3 H APTT 35.3 Sodium Potassium Chloride Carbon Dioxide Anion Gap BUN Creatinine Estim Creat Clear Calc Estimated GFR Random Glucose Lactic Acid Calcium Magnesium Total Bilirubin Direct Bilirubin AST ALT Alkaline Phosphatase Ammonia Lactate Dehydrogenase Troponin I High Sens < 3.5 B-Natriuretic Peptide 29 Total Protein Albumin Lipase Urine Color Urine Appearance Urine pH Ur Specific [place] Urine Protein Urine Glucose (UA) Urine Ketones Urine Blood Urine Nitrite Ur Leukocyte Esterase Pleural WBC Pleural RBC Pleural Neutrophils Pleural Lymphocytes Pleural Monocytes Pleural Other Cells Ethyl Alcohol COVID-19 ([facility]) COVID-19 Clin Com Blood Type Antibody Screen 10/18/21 10/18/21 10/18/21 08:14 08:14 08:40 WBC RBC Hgb Hct MCV MCH MCHC RDW Plt Count MPV Immature Gran % (Auto) Neut % (Auto) Lymph % (Auto) [place] % (Auto) Eos % (Auto) Baso % (Auto) Lymph # (Auto) [place] # (Auto) Eos # (Auto) Baso # (Auto) Abs Immat Gran (auto) Absolute Neuts (auto) Absolute Nucleated RBC Nucleated RBC % (auto) PT INR APTT Sodium Potassium Chloride Carbon Dioxide Anion Gap BUN Creatinine Estim Creat Clear Calc Estimated GFR Random Glucose Lactic Acid Calcium Magnesium Total Bilirubin Direct Bilirubin AST ALT Alkaline Phosphatase Ammonia Lactate Dehydrogenase Troponin I High Sens B-Natriuretic Peptide Total Protein Albumin Lipase Urine Color DK YELLOW Urine Appearance CLEAR Urine pH 7.0 Ur Specific [place] 1.020 Urine Protein NEG Urine Glucose (UA) NEG Urine Ketones NEG Urine Blood NEG Urine Nitrite NEG Ur Leukocyte Esterase NEG Pleural WBC Pleural RBC Pleural Neutrophils Pleural Lymphocytes Pleural Monocytes Pleural Other Cells Ethyl Alcohol < 10 COVID-19 ([facility]) Negative COVID-19 Clin Com See Note Blood Type Antibody Screen 10/18/21 10/19/21 10/19/21 12:55 06:08 06:08 WBC 6.5 RBC 4.21 L Hgb 14.0 Hct 41.1 L MCV 97.6 MCH 33.3 H MCHC 34.1 RDW 13.9 Plt Count 152 L MPV 9.7 Immature Gran % (Auto) Neut % (Auto) Lymph % (Auto) Vernon % (Auto) Eos % (Auto) Baso % (Auto) Lymph # (Auto) [place] # (Auto) Eos # (Auto) Baso # (Auto) Abs Immat Gran (auto) Absolute Neuts (auto) Absolute Nucleated RBC 0.000 Nucleated RBC % (auto) 0.0 PT INR APTT Sodium 134 L Potassium 4.5 Chloride 96 Carbon Dioxide 30 H Anion Gap 13 BUN 11 D Creatinine 0.79 Estim Creat Clear Calc 152.1 Estimated GFR > 60 Random Glucose 98 Lactic Acid Calcium 9.4 Magnesium Total Bilirubin Direct Bilirubin AST ALT Alkaline Phosphatase Ammonia Lactate Dehydrogenase Troponin I High Sens B-Natriuretic Peptide Total Protein Albumin Lipase Urine Color Urine Appearance Urine pH Ur Specific [place] Urine Protein Urine Glucose (UA) Urine Ketones Urine Blood Urine Nitrite Ur Leukocyte Esterase Pleural WBC Pleural RBC Pleural Neutrophils Pleural Lymphocytes Pleural Monocytes Pleural Other Cells Ethyl Alcohol COVID-19 ([facility]) COVID-19 [facility] Com Blood Type A Positive Antibody Screen NEGATIVE 10/19/21 10/19/21 10/19/21 06:08 06:08 10:20 WBC RBC Hgb Hct MCV MCH MCHC RDW Plt Count MPV Immature Gran % (Auto) Neut % (Auto) Lymph % (Auto) [place] % (Auto) Eos % (Auto) Baso % (Auto) Lymph # (Auto) [place] # (Auto) Eos # (Auto) Baso # (Auto) Abs Immat Gran (auto) Absolute Neuts (auto) Absolute Nucleated RBC Nucleated RBC % (auto) PT 15.4 H INR 1.3 H APTT Sodium Potassium Chloride Carbon Dioxide Anion Gap BUN Creatinine Estim Creat Clear Calc Estimated GFR Random Glucose Lactic Acid Calcium Magnesium Total Bilirubin 10.0 H Direct Bilirubin 6.3 H AST 97 H ALT 38 Alkaline Phosphatase 433 H Ammonia Lactate Dehydrogenase 156 Troponin I High Sens B-Natriuretic Peptide Total Protein 7.6 Albumin 3.5 Lipase Urine Color Urine Appearance Urine pH Ur Specific [place] Urine Protein Urine Glucose (UA) Urine Ketones Urine Blood Urine Nitrite Ur Leukocyte Esterase Pleural WBC 1.926 Pleural RBC 0.003 Pleural Neutrophils 4 Pleural Lymphocytes 21 Pleural Monocytes 2 Pleural Other Cells 73 Ethyl Alcohol COVID-19 ([facility]) COVID-19 Clin Com Blood Type Antibody Screen Airway Mallampati Class: IV TM Dist: >3cm Neck ROM: Full Loose/Missing/Broken Teeth: Yes (Many broken) Heart: RRR Lungs: CTAB Assessment and Plan Assessment Anesthesia Assessment: Anesthesia Plan Discussed and Chart Reviewed Final Anesthetic Review Family History of Problems with Anesthesia: No History of Problems with Anesthesia: No NPO: Yes ASA Class: III and Emergency Final Preanesthetic Review: No Changes in Pt Med Stat, Meds/Allgs Chart Reviewed, Consent Obtained/Reviewed and Anes Risks/Benef Reviewed Patient Risk: Intermediate Procedure Risk: Low Assessment/Block/Sedation in SS: Assess/Block/Sedation-SS Anesthetic Plan Anesthetic Plan: MAC: Disposition: Standard PACU and Inp. Admit - Standard Bed
[2021-10-19] MEDS: Sucralfate Oral Suspension 1 GM/10 ML ORAL.SUSP PO (20:42)
[2021-10-19] MEDS: Imipramine HCl 50 MG TABLET PO (20:43)
[2021-10-20] VITALS (8 sets, daily range): BP systolic 100–137; BP diastolic 63–79; PULSE 69–99; RESP 16–20; TEMP 36.6–37.3; O2SAT 92–99
[2021-10-20] MEDS: 0.9 % Sodium Chloride 1,000 ML 100 ML IVCONT (04:00)
--- NOTE | 2021-10-20 07:16 | HO.POSTANES ---
Post Anesthesia Evaluation Post Anesthesia Evaluation Vital Signs: Vital Signs Temp Pulse Resp BP Pulse Ox 10/20/21 03:47 97.8 F 72 16 100/63 94 10/20/21 03:36 99.1 F 94 16 118/63 93 10/19/21 23:34 98.9 F 98 16 121/63 91 L Anesthesia: Monitored Mental Status: Awake Pain Control: Satisfactory Nausea/Vomiting: None Hydration: Adequate Anesthesia-Related Issues: No Anes. Related Issues
[2021-10-20 07:34] LABS: Albumin Pleural Fluid 2.2
[2021-10-20 07:35] LABS: LDH Pleural Fluid 159; Total Protein Pleural Fluid 3.6
[2021-10-20 08:49] LABS: Hematocrit 38.9 % (42.0-52.0); Hemoglobin 13.2 g/dl (14.0-18.0); Mean Corpuscular HGB Conc 33.9 g/dl (31.0-36.0); Mean Corpuscular Hemoglobin 33.1 pg (27.0-33.0); Mean Corpuscular Volume 97.5 fL (80.0-98.0); Mean Platelet Volume 9.5 fL (9.4-12.4); Platelet Count 144 X10*3/uL (160-400); Red Blood Count 3.99 X10*6/uL (4.60-5.80); Red Cell Distribution Width 13.8 % (11.0-16.0); White Blood Count 6.2 X10*3/uL (4.8-10.8)
[2021-10-20 09:08] LABS: Alanine Aminotransferase 32 U/L (0-40); Albumin Level 3.4 g/dL (3.5-5.0); Alkaline Phosphatase 380 U/L (39-117); Anion Gap 13 (12-20); Aspartate Amino Transferase 81 U/L (5-37); Bilirubin Direct 6.2 mg/dL (0.0-0.5); Bilirubin Total 9.6 mg/dL (0.0-1.0); Blood Urea Nitrogen 11 mg/dL (9-16); Carbon Dioxide 28 mmol/L (22-29); Chloride 95 mmol/L (96-108); Creatinine Clr Calc Pharmacy 160.2; Estimated Glomerular Filt Rate > 60; Glucose Random 105 mg/dL (60-115); Potassium 4.4 mmol/L (3.3-5.1); Sodium 132 mmol/L (135-145); Total Protein 7.2 g/dL (6.5-8.0)
[2021-10-20] MEDS: rifAXIMin 550 MG TABLET PO ×2 (10:39→20:41)
[2021-10-20] MEDS: PHENobarbitaL 30 MG TABLET 60 MG PO ×2 (10:39→20:41)
[2021-10-20] MEDS: Omeprazole 40 MG CAPSULE.DR PO (10:40)
[2021-10-20] MEDS: Cyanocobalamin (Vitamin B-12) 1,000 MCG TABLET 1000 MCG PO (10:40)
[2021-10-20] MEDS: Folic Acid 1 MG TABLET PO (10:40)
[2021-10-20] MEDS: Thiamine HCL 100 MG TABLET PO (10:40)
[2021-10-20] MEDS: PARoxetine HCL 20 MG TABLET PO (10:40)
[2021-10-20] MEDS: Sucralfate Oral Suspension 1 GM/10 ML ORAL.SUSP PO ×2 (10:40→20:42)
[2021-10-20] MEDS: buPROPion HCl XL 300 MG TAB.ER.24H PO (10:40)
[2021-10-20] MEDS: Lipase/Prot/Amylase 24/76/120K 1 CAP CAPSULE.DR PO ×3 (10:48→18:32)
--- NOTE | 2021-10-20 13:19 | P.PNIM_ITS ---
Subjective Subjective Date of Service: 10/20/21 Interval History: seen and examined this morning follow up for pleural effusion, PV thrombus egd showing esophageal varices, banding x3 no bleeding no overnight events denies abdominal pain, nausea or vomiting Review of Systems Review of Systems: Yes all other systems are reviewed and are negative Constitutional Constitutional: Denies chills and Denies fever(s) Cardiovascular Cardiovascular: Denies chest pain, Denies palpitations and Denies dyspnea Respiratory Respiratory: Denies cough and Denies dyspnea Gastrointestinal Gastrointestinal: Denies abdominal pain, Denies nausea and Denies vomiting Endocrine Endocrine: Denies palpitations Physical Exam Vital Signs: Vital Signs: Last Vital Signs Temp 98.0 F 10/20/21 10:52 Pulse 91 10/20/21 10:52 Resp 18 10/20/21 10:52 BP 122/79 10/20/21 10:52 Pulse Ox 99 10/20/21 10:52 BMI result Body Mass Index 30.8 Const: General: cooperative, comfortable, alert and awake Nutritional Appea tracy: overweight Orientation/consciousness: patient oriented x3 Eyes: Pupils: Equal, round and reactive pupils present EOM: EOMs intact bilaterally Resp: Effort & Inspection: normal respiratory effort and able to speak in com plete sentences Auscultation: clear to auscultation bilaterally Cardio: Rate: regular rate Heart sounds: S1 normal heart sound present and S2 normal heart sound present GI: Inspection: No distended Palpation (GI): Soft to palpation and nontender Neuro: General: patient oriented x3 Cranial nerves: Yes Equal, round and reactive pupils present Extrem: General: Yes no pedal edema Objective Data Active Medications Lipase/Protease/Amylase (Lipase/Prot/Amylase 24/76/120k 1 Cap Capsule.Dr) 1 cap PO TIDWM COUNTS INCLUDE 234 BEDS AT THE [facility] Last Admin: 10/20/21 10:48 Dose: 1 cap Documented by: FAM Bupropion HCl (Bupropion Hcl Xl 300 Mg Tab.Er.24h) 300 mg PO DAILY COUNTS INCLUDE 234 BEDS AT [facility] Last Admin: 10/20/21 10:40 Dose: 300 mg Documented by: FAM Cyanocobalamin (Cyanocobalamin (Vitamin B-12) 1,000 Mcg Tablet) 1,000 mcg PO DAILY COUNTS INCLUDE 234 BEDS AT [facility] Last Admin: 10/20/21 10:40 Dose: 1,000 mcg Documented by: FAM Enoxaparin Sodium (Enoxaparin Sodium 120 Mg/0.8 Ml Syringe) 110 mg SUBCUT Q12H COUNTS INCLUDE 234 BEDS AT [facility] Last Admin: 10/18/21 14:08 Dose: 110 mg Documented by: KATTY Folic Acid (Folic Acid 1 Mg Tablet) 1 mg PO DAILY COUNTS INCLUDE 234 BEDS AT THE [facility] Last Admin: 10/20/21 10:40 Dose: 1 mg Documented by: FAM Imipramine HCl (Imipramine Hcl 50 Mg Tablet) 50 mg PO BEDTIME COUNTS INCLUDE 234 BEDS AT [facility] Last Admin: 10/19/21 20:43 Dose: 50 mg Documented by: ANTWAN Omeprazole (Omeprazole 40 Mg Capsule.Dr) 40 mg PO DAILY COUNTS INCLUDE 234 BEDS AT [facility] Last Admin: 10/20/21 10:40 Dose: 40 mg Documented by: FAM Ondansetron HCl (Ondansetron Hcl 4 Mg/2 Ml Vial) 4 mg IVPUSH Q8H PRN PRN Reason: Nausea and Vomiting Ondansetron HCl (Ondansetron Hcl 4 Mg/2 Ml Vial) 4 mg IVPUSH ONCE PRN PRN Reason: Nausea and Vomiting Paroxetine HCl (Paroxetine Hcl 20 Mg Tablet) 20 mg PO DAILY COUNTS INCLUDE 234 BEDS AT [facility] Last Admin: 10/20/21 10:40 Dose: 20 mg Documented by: FAM Pharmacy Consult (Consult Rx Perform Med Rec) 1 each MISCELLANE ONCE PRN PRN Reason: Consult order Pharmacy Consult (Consult Rx Etoh Phenob Po Dose) 1 each MISCELLANE ONCE PRN; Protocol PRN Reason: Consult order Phenobarbital (Phenobarbital 30 Mg Tablet) 60 mg PO BID COUNTS INCLUDE 234 BEDS AT [facility] Stop: 10/20/21 21:01 Last Admin: 10/20/21 10:39 Dose: 60 mg Documented by: FAM Phenobarbital (Phenobarbital 30 Mg Tablet) 30 mg PO BID COUNTS INCLUDE 234 BEDS AT [facility] Stop: 10/22/21 21:01 Phenobarbital (Phenobarbital 30 Mg Tablet) 30 mg PO DAILY COUNTS INCLUDE 234 BEDS AT [facility] Stop: 10/24/21 09:01 Rifaximin (Rifaximin 550 Mg Tablet) 550 mg PO BID COUNTS INCLUDE 234 BEDS AT [facility] Last Admin: 10/20/21 10:39 Dose: 550 mg Documented by: FAM Sucralfate (Sucralfate 1 Gm Tablet) 1 gm PO DAILY@1200 COUNTS INCLUDE 234 BEDS AT [facility] Last Admin: 10/19/21 12:15 Dose: 1 gm Documented by: SHUKRI Sucralfate (Sucralfate Oral Suspension 1 Gm/10 Ml Oral.Susp) 1 gm PO BID COUNTS INCLUDE 234 BEDS AT [facility] Last Admin: 10/20/21 10:40 Dose: 1 gm Documented by: FAM Thiamine HCl (Thiamine Hcl 100 Mg Tablet) 100 mg PO DAILY COUNTS INCLUDE 234 BEDS AT [facility] Last Admin: 10/20/21 10:40 Dose: 100 mg Documented by: FAM Labs CBC & Chem 7: 10/20/21 08:15 10/20/21 08:15 Labs: Laboratory Results - last 24 hr 10/19/21 10/20/21 10/20/21 10:20 08:15 08:15 MCV 97.5 MCH 33.1 H MCHC 33.9 RDW 13.8 Plt Count 144 L MPV 9.5 Absolute Nucleated RBC 0.000 Nucleated RBC % (auto) 0.0 Anion Gap 13 Estim Creat Clear Calc 160.2 Estimated GFR > 60 Random Glucose 105 Calcium 9.0 Total Bilirubin 9.6 H Direct Bilirubin 6.2 H AST 81 H ALT 32 Alkaline Phosphatase 380 H Total Protein 7.2 Albumin 3.4 L Pleural Total Protein 3.6 Pleural Albumin 2.2 Pleural LDH 159 Microbiology Microbiology Results: Microbiology 10/18/21 08:40 Blood Culture - Preliminary Blood - Venous No growth after 48 hours. 10/18/21 08:13 Blood Culture - Preliminary Blood - Venous No growth after 48 hours. Assessment and Plan (1) Decompensation of cirrhosis of liver: Status: Acute (2) Portal vein thrombosis: Status: Acute Plan This is a 56 yo M with a PMH of Cirrhosis secondary to heavy and continued alcohol use who presents to the ED with a 3 to 4 day history of progressive shortness of breath. He is found to have worsening of his known R pleural effusion and decompensated cirrhosis. 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 Alcohol abuse and dependence continue to monitor with CIWA continue phenobarb monitor lyes Thrombocytopenia r/t liver disease, platelets stable HTN hold katherine-i for now Mood continue baseline bupropion, tofranil Chronic pancreatitis continue enzymes Full Code DVT pptx, Lovenox Attending: dr. moreno Reason for continued hospitalization: symptomatic pleural effusion requiring drianage + analysis; decomensated cirrhosis with new PV thrombus requiring treatment Quality Stroke Does the patient have a stroke diagnosis?: No VTE Prior VTE?: No VTE Risk Level:: Medical - moderate - high VTE Device Contraindication: N/A - Device Ordered VTE Drug Contraindication: Treatment Not Indicated
[2021-10-20] MEDS: Imipramine HCl 50 MG TABLET PO (20:41)
[2021-10-21] MEDS: Enoxaparin Sodium 120 MG/0.8 ML SYRINGE 110 MG SUBCUT ×2 (03:18→14:08)
[2021-10-21 03:22] VITALS: BP 121/71; PULSE 95; RESP 18; TEMP 37.1; O2SAT 97
[2021-10-21 06:59] LABS: Hematocrit 38.8 % (42.0-52.0); Hemoglobin 13.3 g/dl (14.0-18.0); Mean Corpuscular HGB Conc 34.3 g/dl (31.0-36.0); Mean Corpuscular Hemoglobin 33.6 pg (27.0-33.0); Mean Platelet Volume 9.9 fL (9.4-12.4); Platelet Count 138 X10*3/uL (160-400); Red Blood Count 3.96 X10*6/uL (4.60-5.80); Red Cell Distribution Width 13.6 % (11.0-16.0); White Blood Count 6.5 X10*3/uL (4.8-10.8)
[2021-10-21 07:21] LABS: Alanine Aminotransferase 33 U/L (0-40); Albumin Level 3.3 g/dL (3.5-5.0); Alkaline Phosphatase 369 U/L (39-117); Aspartate Amino Transferase 80 U/L (5-37); Bilirubin Direct 5.7 mg/dL (0.0-0.5); Bilirubin Total 8.6 mg/dL (0.0-1.0); Total Protein 7.1 g/dL (6.5-8.0)
[2021-10-21 08:00] VITALS: BP 110/69; PULSE 105; RESP 20; TEMP 36.8; O2SAT 95
[2021-10-21] MEDS: Sucralfate Oral Suspension 1 GM/10 ML ORAL.SUSP PO (10:28)
[2021-10-21] MEDS: PHENobarbitaL 30 MG TABLET PO (10:29)
[2021-10-21] MEDS: rifAXIMin 550 MG TABLET PO (10:29)
[2021-10-21] MEDS: Omeprazole 40 MG CAPSULE.DR PO (10:29)
[2021-10-21] MEDS: Folic Acid 1 MG TABLET PO (10:30)
[2021-10-21] MEDS: PARoxetine HCL 20 MG TABLET PO (10:30)
[2021-10-21] MEDS: Cyanocobalamin (Vitamin B-12) 1,000 MCG TABLET 1000 MCG PO (10:30)
[2021-10-21] MEDS: buPROPion HCl XL 300 MG TAB.ER.24H PO (10:30)
[2021-10-21] MEDS: Thiamine HCL 100 MG TABLET PO (10:31)
[2021-10-21] MEDS: Lipase/Prot/Amylase 24/76/120K 1 CAP CAPSULE.DR PO ×2 (10:33→14:08)
--- NOTE | 2021-10-21 10:43 | PM.DS ---
DS: Providers Provider Date of Service: 10/21/21 Date of admission: 10/18/21 10:50 Date of discharge: 10/21/21 Primary care physician: Martin Avilez MD Consults: 10/18/21 10:50 Consult to Gastroenterology Routine Consulting Provider: Natalie Santo Reason for consultation: decompensated cirrhosis Attending physician on discharge: [facility] Discharging clinician: Iris Rivera DS: Diagnosis Discharge Diagnosis (1) Decompensation of cirrhosis of liver: Status: Acute (2) Portal vein thrombosis: Status: Acute (3) Esophageal varices: Status: Acute DS: Summary Hospital Course Hospital Course: From H&P on day of admission This is a 56 yo M with a PMH of 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 The patient reports that his SOB was initially on exertion but now he feels as though he cannot take a full breath. He denies any fevers but does endorse chills and sweating. He reports mild tremors but does not feel like he is withdrawing. He reports his last drink to be 2 days ago. He is vague about his EtOH use -- stating he drinks a few vodka and cokes daily but then states he finishes a bottle of vodka in 2 days. He currently denies any abdominal symptoms. No pain, nausea/vomiting/diarrhea or loss of appetite. He reports that he was recently started on lasix (5 days prior to admission) by his PCP. In the ED, the patient was noted to be normoxic but with tachpnea and tachycardia. A CTA was negative for a large or central PE. It showed an increase in his known pleural effusion with compressive atelectasis. He was exhibiting early withdrawal signs and was noted to have a T. bili of 10 (previously all below 4.5). He was given IV lasix, MVI, ativan and has been started on phenobarbital. He will be admitted for further treatment and work up of his pleural effusion as well as decompensated cirrhosis. Discharge diagnosis: Portal vein thrombus alcohol dependence with withdrawal decompensated liver cirrhosis esophageal varices symptomatic right pleural effusion hospital course by problem: Decompenstated cirrhosis/acute Portal vein (plus others -- see u/s report) thrombus/esophageal varices. MELD score on admission 20 pts (19.6% estimated 3 month mortality); Maddrey's score less than 32 (no need for steroids). Prior Varices seen on EGD done at [facility] had EGD to determine safety of anticoagulation use. He was seen by GI and underwent EGD 10/19 showing grade 3 esophageal varices s/p banding x3 and portal hypertensive gastropathy. GI recommended carafate 1g bid x 2 weeks, pantoprazole 40 mg daily intermediate card tender and adding aldactone 50mg daily. He was started on therapeutic lovenox for treatment of portal vein thrombosis. His LFTS began trending down, his statin has remained on hold. His h/h has remained stable and he was continued on baseline rifaximin. His ammonia level was elevated at 60 but he showed no evidence of hepatic encephalopathy. Room importance of monitoring for bleeding was discussed in detail. Symptomatic R pleural effusion. Imaging revealed moderate right pleural effusion. Patient underwent thoracentesis 10/16. fluid studies c/w exudative effusion. gram stain with no organisms seen; culture pending, cytology added and is pending at the time of discharge. Respiratory symptoms resolved and patient is not requiring supplemental oxygen. Alcohol abuse and dependence. patient was started on phenobarbital for prevention alcohol withdrawal. the importance of alcohol cessation was discussed with him in detail especially in light of starting anticoagulation with Lovenox. He reports being motivated to stop drinking alcohol and states that he has been slowly decreasing his alcohol intake. He was offered care team evaluation but declined. patient is eager to return home. he indicates that he has a follow up appointment with his PCP this coming week. He is encouraged to follow up with both GI and his PCP. Lisinopril will be placed on hold for now as patient will be started on aldactone. Can follow up with pcp to determine need to resume lisinopril. Statin has been placed on hold due to elevated LFTs. Repeat labs should be obtained in 1 week. Time Spent with Patient Time attestation: Total time spent providing and/or coordinating discharge services: Discharge coordination time: Greater than 30 minutes Quality: Safe Use of Opioids Does Pt have an Active Cancer Diagnosis on the Problem List?: No Quality: Stroke Does the patient have a stroke diagnosis?: No Physical Exam Vital Signs: Vital Signs: Last Vital Signs Temp 98.2 F 10/21/21 08:00 Pulse 105 H 10/21/21 08:00 Resp 20 10/21/21 08:00 BP 110/69 10/21/21 08:00 Pulse Ox 95 10/21/21 08:00 BMI result Body Mass Index 30.8 Const: General: cooperative, comfortable, alert and awake Nutritional Appearance: average body habitus Orientation/consciousness: patient oriented x3 Eyes: Pupils: Equal, round and reactive pupils present EOM: EOMs intact bilaterally Resp: Effort & Inspection: normal respiratory effort and able to speak in complete sentences Auscultation: clear to auscultation bilaterally Cardio: Rate: regular rate Heart sounds: S1 normal heart sound present and S2 normal heart sound present GI: Inspection: No distended Palpation (GI): Soft to palpation and nontender Neuro: General: patient oriented x3 Cranial nerves: Yes Equal, round and reactive pupils present Extrem: General: Yes no pedal edema DS: Data Data Completed and Pending Completed studies during hospitalization [Text1]: Procedures Detoxification Services for Substance Abuse Treatment (08/10/21) Pending studies at discharge: Pending at discharge 10/21/21 08:09 Cytology [PTH] Urgent Labs on day of discharge: Laboratory Results - last 24 hr 10/21/21 10/21/21 06:27 06:27 WBC 6.5 RBC 3.96 L Hgb 13.3 L Hct 38.8 L MCV 98.0 MCH 33.6 H MCHC 34.3 RDW 13.6 Plt Count 138 L MPV 9.9 Absolute Nucleated RBC 0.000 Nucleated RBC % (auto) 0.0 Total Bilirubin 8.6 H Direct Bilirubin 5.7 H AST 80 H ALT 33 Alkaline Phosphatase 369 H Total Protein 7.1 Albumin 3.3 L Preliminary micro results at discharge 10/19/21 10:20 Anaerobic Culture - Preliminary Pleura No growth to date. Body Fluid Culture - Preliminary Culture in progress. 10/18/21 08:40 Blood Culture - Preliminary Blood - Venous No growth after 48 hours. 10/18/21 08:13 Blood Culture - Preliminary Blood - Venous No growth after 48 hours. Discharge Plan Discharge Patient Disposition: Home, Self-Care Discharge Diagnosis: portal vein thrombosis decompensated liver cirrhosis pleural effusion esophageal varices alcohol abuse/dependence Referrals: Natalie Santo MD [Physician] - 1 Week Martin Avilez MD [Primary Care Provider] - 1 Week Discharge Medications: New sucralfate 100 mg/mL Suspension 1 g PO BID 14 Days Qty: 280 0RF spironolactone [Aldactone] 50 mg tablet 50 mg PO DAILY 30 Days Qty: 30 0RF enoxaparin [Lovenox] 120 mg/0.8 mL syringe 120 mg subcut Q12H 30 Days Qty: 48 0RF Continued omeprazole 40 mg capsule,delayed release(DR/EC) 1 cap PO DAILY 0RF paroxetine HCl 20 mg tablet 1 tab PO DAILY 0RF Creon 24,000-76,000 -120,000 unit capsule,delayed release(DR/EC) 1 cap PO TIDWM 0RF Rx Instructions: administer with meals and/or snacks furosemide 20 mg tablet 1 tab PO DAILY 0RF folic acid 1 mg tablet 1 mg PO DAILY 0RF bupropion HCl 300 mg tablet extended release 24 hr 300 mg PO DAILY 0RF thiamine HCl (vitamin B1) 100 mg tablet 100 mg PO DAILY 0RF cyanocobalamin (vitamin B-12) 1,000 mcg tablet 1,000 mcg PO DAILY 0RF imipramine HCl 50 mg tablet 50 mg PO BEDTIME Qty: 30 6RF Xifaxan 550 mg tablet 550 mg PO BID Qty: 60 6RF Held pravastatin 10 mg tablet 10 mg PO DAILY 0RF Hold Instructions: until repeat liver function labs are checked/follow up with pcp lisinopril 20 mg tablet 40 mg PO DAILY 0RF Hold Instructions: until you follow up with PCP Discontinued sucralfate [Carafate] 1 gram tablet 1 g PO .qacnkia Qty: 30 3RF Discharge Orders: Discharge Order (Routine); Ordered 10/21/21 Ordered By: Iris Rivera Diet: advance to usual diet Activity on Discharge: As tolerated Stand Alone Forms: Patient Portal Discharge page Other Ambulatory Orders: Basic Metabolic Panel (Routine) Timeframe: 20211028 Facility: [facility] - Location: Laboratory Ordered By: Iris Rivera Complete Blood Count no Diff (Routine) Timeframe: 20211028 Facility: [facility] - Location: Laboratory Ordered By: Iris Rivera Liver Panel (Routine) Timeframe: 20211028 Facility: [facility] - Location: Laboratory Ordered By: Iris Rivera Care Plan Goals: see below Health Concerns: Portal vein thrombus decompensated liver cirrhosis alcohol dependence/withdrawal esophageal varices Plan of Treatment: you have been started on a blood thinner to treat your portal vein thrombus. please take as prescribed. monitor for signs of bleeding as discussed. you have been started on new medication for fluid accumulation - aldactone, take as prescribed. DO NOT DRINK ALCOHOL call to schedule follow up appointment with GI Keep your scheduled appointment with your PCP on repeat lab work has been ordered for one week Assessment: see discharge summary Discharge Date/Time: 10/21/21 15:00
[2021-10-21 12:00] VITALS: BP 120/74; PULSE 96; RESP 20; TEMP 36.7; O2SAT 95
--- NOTE | 2021-10-21 12:21 | MHC.CM.PN ---
Patient has been medically cleared for dc to home today, no services.
--- NOTE | 2021-10-21 13:38 | MHC.CM.PN ---
Patient has been medically cleared for dc to home today, with services. CM has made 22 VNA referrals but as of this time there is no VNA who can accommodate (LOVENOX INJECTIONS BID). Per RN, he has done one teach with Patient thus far and will do another with Patient for second dose. Patient's Daughter-in Law- No Vergara is a RN here and CM spoke with her at [phone]; No is agreeable to assist Patient if a VNA can not be secured. ABDULAZIZ relayed this plan to ABBEY/Iris, who has indicated that she is in agreement with it.
--- NOTE | 2021-10-21 15:24 | MHC.CM.PN ---
RECHECKED VNA REFERRALS UN ABLE TO LOCATE A VNA FOR PT CALL PLACED MESSAGE LEFT FOR PTS DIL WHO IS AN RN MEGA [phone] RE SAME
== END 2021-10-21 15:00 | disposition home or self-care (01) | DRG 143 ==
LOC: HO.ED 09:55 → HO.EDOVER 11:09 → HO.IMC 14:58
PROVIDERS: Internal Medicine Gastroenterology; Radiology Diagnostic Radiology; Admitting Provider Family Medicine; Emergency Provider Emergency Medicine; PCP Internal Medicine; Visit Provider Physician Assistant Medical
PROC: 0W993ZZ Drainage of Right Pleural Cavity, Percutaneous Approach (ICD-10-PCS; principal; 2021-10-19 11:00)
PROC: 0DJ08ZZ Inspection of Upper Intestinal Tract, Via Natural or Artificial Opening Endoscopic (ICD-10-PCS; CPT 43235; principal; 2021-10-19 15:30)
DX: J90 Pleural effusion, not elsewhere classified (principal); I81 Portal vein thrombosis; I85.10 Secondary esophageal varices without bleeding; K70.31 Alcoholic cirrhosis of liver with ascites; F10.230 Alcohol dependence with withdrawal, uncomplicated; F17.210 Nicotine dependence, cigarettes, uncomplicated; K21.9 Gastro-esophageal reflux disease without esophagitis; I10 Essential (primary) hypertension; K86.1 Other chronic pancreatitis; D69.59 Other secondary thrombocytopenia; K76.6 Portal hypertension; K31.89 Other diseases of stomach and duodenum; K70.11 Alcoholic hepatitis with ascites; Z20.822 Contact with and (suspected) exposure to COVID-19; Z71.6 Tobacco abuse counseling; Z79.899 Other long term (current) drug therapy
CPT/HCPCS: 32555; 36415; 71045; 71046; 71275; 76705; 80048; 80076; 81003; 82042; 82077; 82140; 83605; 83615; 83690; 83735; 83880; 84157; 84484; 85025; 85027; 85610; 85730; 86850; 86900; 86901; 87040; 87070; 87073; 87205; 87635; 88112; 88305; 89051; 93005; 96365; 96375; 96376; 99285; 99291; J1650; J1940; J2060; J3411; Q9967

== ENCOUNTER 2021-11-01 09:33 | Inpatient (IN) | payer MEDICAID, SELFPAY ==
--- NOTE | ~2021-11-01 | US_ITS ---
EXAMINATION: US DUPLEX ARTERIAL VENOUS - VISCERAL VESSEL ULTRASOUND EVALUATION FOR PORTAL VEIN THROMBOSIS CLINICAL INFORMATION: Portal vein thrombosis. COMPARISON: 10/18/2021. TECHNIQUE: Real-time ultrasound and Doppler techniques (integrating B-mode 2D vascular images, Doppler spectral analysis and color flow Doppler imaging) were utilized to interrogate the visceral vessels. FINDINGS: There is hepatosplenomegaly present. PORTAL VEINS: Intrahepatic portal vein is patent with hepatopedal flow present. The main portal vein has hepatopedal flow within it but with some difficulty and color fill-in which appears to be related to technical factors of angle of interrogation rather than portal vein occlusion. The right portal vein is patent with hepatopedal flow. The left portal vein is patent with hepatopedal flow. HEPATIC ARTERY: There is antegrade flow seen within the main hepatic artery with velocity of 209 cm/s. The right hepatic artery has antegrade flow. The left hepatic artery has antegrade flow. HEPATIC VEINS: The main and left hepatic veins have a normal appearance and are patent. The right hepatic vein has flattening of the waveform without respiratory variation but is patent. The inferior vena caval waveform is abnormal with flow being present but with lack of inspiratory variation. SPLENIC VEIN: Patent. No ascites is present. No definite portal varices are appreciated. US/US duplex arterial venous comp IMPRESSION: Appearance of patent portal veins with hepatopedal flow and no evidence of portal varices. Patent hepatic artery with some elevation in velocity within the main hepatic artery at 209 cm/s. Right hepatic vein and inferior vena cava without respiratory variation identified. Hepatosplenomegaly.
--- NOTE | ~2021-11-01 | XR_ITS ---
EXAMINATION: XR CHEST CLINICAL INFORMATION: Right-sided pleural effusion COMPARISON: Previous chest CT September 2015 and chest x-ray 10/19/2021 TECHNIQUE: 2 views of the chest were obtained. FINDINGS: The cardiac and mediastinal contours are normal. The lungs are clear. There is no pleural effusion or pneumothorax. There is a small right pleural effusion. There is no left pleural effusion. Bony structures are unremarkable. XR/XR chest 2V IMPRESSION: Small right pleural effusion.
--- NOTE | 2021-11-01 10:10 | ED.NAVMDI ---
HPI - Nausea/Vomiting/Diarrhea General Chief complaint: General Medical Stated complaint: Black stool Time Seen by Provider: 11/01/21 10:10 Source: patient Mode of arrival: ambulatory Limitations: no limitations History of Present Illness HPI Narrative: patient started with diarrhea all day 15 times. No fever. Patient is getting lovenox shots for hepatic vein thrombosis, patient is currently getting lovenox shots. Now diarrhea has turned black and he is not taking peptol bismol. MD elicited complaint: diarrhea Onset (ago): day(s) Description of diarrhea: other (black diarrhea) Associated symptoms: denies other symptoms Related Data Home Medications Medication Instructions Recorded Confirmed bupropion HCl 300 mg 24 hr tablet, 300 mg PO DAILY 06/10/21 11/01/21 extended release cyanocobalamin (vitamin B-12) 1,000 mcg PO DAILY 06/10/21 11/01/21 1,000 mcg tablet folic acid 1 mg tablet 1 mg PO DAILY 06/10/21 11/01/21 thiamine HCl (vitamin B1) 100 mg 100 mg PO DAILY 06/10/21 11/01/21 tablet [id number] 1 cap PO TIDWM 08/10/21 11/01/21 24,000-76,000-120,000 unit capsule,delayed rel (Creon) omeprazole 40 mg capsule,delayed 1 cap PO DAILY 08/10/21 11/01/21 release paroxetine HCl 20 mg tablet 1 tab PO DAILY 08/10/21 11/01/21 furosemide 20 mg tablet 1 tab PO DAILY 10/18/21 11/01/21 Previous Rx's Medication Instructions Recorded imipramine HCl 50 mg tablet 50 mg PO BEDTIME #30 tab 09/16/21 rifaximin 550 mg tablet (Xifaxan) 550 mg PO BID #60 tab 09/16/21 enoxaparin 120 mg/0.8 mL 120 mg (0.8 mL) SUBCUT Q12H 30 10/21/21 subcutaneous syringe (Lovenox) Days #48 ml spironolactone 50 mg tablet 50 mg PO DAILY 30 Days #30 tab 10/21/21 (Aldactone) sucralfate 100 mg/mL oral 1 g (10 mL) PO BID 14 Days #280 ml 10/21/21 suspension Allergies Allergy/AdvReac Type Severity Reaction Status Date / Time No Known Drug Allergies Allergy Mild NONE Verified 09/16/21 07:40 [NO KNOWN DRUG ALLERGIES] Review of Systems Constitutional: Constitutional: Reports no additional constitutional complaints Eyes: Eyes: Reports no additional eye complaints ENT: Denies dizziness Cardiovascular: Cardiovascular: Reports no additional cardiovascular complaints Respiratory: Respiratory: Reports as per HPI Gastrointestinal: Gastrointestinal: Reports no additional gastrointestinal complaints Musculoskeletal: Musculoskeletal: Reports no additional musculoskeletal complaints Integumentary/Breasts: Skin/Breast: Denies rash Neurologic: Reports system reviewed and no additional complaints, except as documented, Denies dizziness and Denies Sensory deficit (Neuro) Psychiatric: Psychiatric: Denies anxiety [facility] Past Medical History Medical History Alcoholic cirrhosis Alcoholism Chronic abdominal pain Cirrhosis Elevated LFTs Elevated liver function tests GERD (gastroesophageal reflux disease) Gout Liver mass, right lobe Panniculitis Surgical History H/O cervical spine surgery H/O colonoscopy H/O hemicolectomy Family History Family History Mother Cancer Social History Social History Household Members: None Household Members Other:: roommate Housing: Apartment Do you presently have visiting nurse or other home services: No Alcohol intake: current Alcohol intake frequency: 0-2 drinks per day Alcohol type: hard liquor Patient Tobacco Use Status: Current everyday Tobacco user Tobacco use type: Cigarette Cigarettes Per Day: 4 Advance Directives: No Advance Directives Information Provided: No service: No Current occupational status: unemployed Physical Exam Vital Signs: Vital Signs: Last Vital Signs Temp 98.3 F 11/01/21 11:16 Pulse 100 11/01/21 13:40 Resp 14 11/01/21 13:40 BP 125/73 11/01/21 13:40 Pulse Ox 95 11/01/21 13:40 BMI result Body Mass Index 31.0 Const: Other: male looking older than stated age, jaundiced Nutritional Appearance: average body habitus Orientation/consciousness: oriented to person and patient oriented x3 Limitations: no limitations HEENT: Head: Yes normal to inspection Ears: external ears normal General nose exam: Normal external nose present Mouth: Normal oral and palatal mucosa present and oropharynx normal Throat: Yes posterior oropharynx normal Eyes: Other: icteric Neck: Other: supple Neck: Yes normal visual inspection Chest: Chest palpation & inspection: normal inspection of the chest Resp: Auscultation: clear to auscultation bilaterally Cardio: Jugular venous distension: no JVD Rate: regular rate Rhythm: regular rhythm Heart sounds: S1 normal heart sound present and S2 normal heart sound present GI: Other: fluid filled abdomen nontender., hepatomegally Palpation (GI): Soft to palpation and nontender Auscultation: normal bowel sounds : Other: black stool strong heme positive General: Yes no CVA tenderness Back/Spine/Pelvis: Back: no CVA tenderness Skin: General skin exam: no rashes or lesions noted Neuro: General: oriented to person and patient oriented x3 Cranial nerves: Yes CN's II-XII intact bilaterally Motor exam (neuro): 5/5 motor strength present throughout Sensory Exam: No Sensory deficit (Neuro) Extrem: General: Yes normal to inspection Psych: Appearance: grossly normal Course Reevaluation(s) Reevaluation #1: patient with liver failure, esophageal varices, now with black stool strong heme positive with stable HCT. Will discuss with GI and make a plan, likely admission and scoping Time: 11:50 Reevaluation #2: Discussed with Dr. Santo will admit Time: 12:27 MDM - Nausea/Vomiting/Diarrhea Lab Data Result diagrams: 11/01/21 10:35 11/01/21 10:35 Labs: Lab Results 11/01/21 11/01/21 11/01/21 Range/Units 10:35 10:35 10:37 WBC 7.9 (4.8-10.8) X10*3/uL RBC 3.90 L (4.60-5.80) X10*6/uL Hgb 12.8 L (14.0-18.0) g/dl Hct 38.4 L (42.0-52.0) % MCV 98.5 H (80.0-98.0) fL MCH 32.8 (27.0-33.0) pg MCHC 33.3 (31.0-36.0) g/dl RDW 13.2 (11.0-16.0) % Plt Count 188 D (160-400) X10*3/uL MPV 9.2 L (9.4-12.4) fL Immature Gran % (Auto) 0.4 (0.0-0.4) % Neut % (Auto) 69.7 (45-73) % Lymph % (Auto) 15.1 L (20-40) % [place] % (Auto) 12.1 H (2-11) % Eos % (Auto) 1.9 (0-4) % Baso % (Auto) 0.8 (0-2) % Lymph # (Auto) 1.2 (1.2-4.9) X10*3/uL [place] # (Auto) 1.0 (0.1-1.2) X10*3/uL Eos # (Auto) 0.2 (0.0-0.4) X10*3/uL Baso # (Auto) 0.1 (0.0-0.2) X10*3/uL Abs Immat Gran (auto) 0.03 (0.00-0.03) X10*3/uL Absolute Neuts (auto) 5.5 (2.0-8.3) x10*3/uL Absolute Nucleated RBC 0.000 (0.0-0.012) X10*3/uL Nucleated RBC % (auto) 0.0 (0.0-0.2) /100WBC Sodium 136 (135-145) mmol/L Potassium 4.6 (3.3-5.1) mmol/L Chloride 101 (96-108) mmol/L Carbon Dioxide 26 (22-29) mmol/L Anion Gap 14 (12-20) BUN 8 L (9-16) mg/dL Creatinine 0.78 (0.5-1.4) mg/dL Estim Creat Clear Calc TNP Estimated GFR > 60 Random Glucose 97 (60-115) mg/dL Calcium 9.6 D (8.4-10.2) mg/dL Total Bilirubin 5.1 H (0.0-1.0) mg/dL Direct Bilirubin 3.4 H (0.0-0.5) mg/dL AST 79 H (5-37) U/L ALT 34 (0-40) U/L Alkaline Phosphatase 371 H (39-117) U/L Total Protein 7.6 (6.5-8.0) g/dL Albumin 3.5 (3.5-5.0) g/dL COVID-19 ([facility]) Negative (Negative) COVID-19 Clin Com See Note Blood Type Antibody Screen 11/01/21 Range/Units 10:52 WBC (4.8-10.8) X10*3/uL RBC (4.60-5.80) X10*6/uL Hgb (14.0-18.0) g/dl Hct (42.0-52.0) % MCV (80.0-98.0) fL MCH (27.0-33.0) pg MCHC (31.0-36.0) g/dl RDW (11.0-16.0) % Plt Count (160-400) X10*3/uL MPV (9.4-12.4) fL Immature Gran % (Auto) (0.0-0.4) % Neut % (Auto) (45-73) % Lymph % (Auto) (20-40) % [place] % (Auto) (2-11) % Eos % (Auto) (0-4) % Baso % (Auto) (0-2) % Lymph # (Auto) (1.2-4.9) X10*3/uL [place] # (Auto) (0.1-1.2) X10*3/uL Eos # (Auto) (0.0-0.4) X10*3/uL Baso # (Auto) (0.0-0.2) X10*3/uL Abs Immat Gran (auto) (0.00-0.03) X10*3/uL Absolute Neuts (auto) (2.0-8.3) x10*3/uL Absolute Nucleated RBC (0.0-0.012) X10*3/uL Nucleated RBC % (auto) (0.0-0.2) /100WBC Sodium (135-145) mmol/L Potassium (3.3-5.1) mmol/L Chloride (96-108) mmol/L Carbon Dioxide (22-29) mmol/L Anion Gap (12-20) BUN (9-16) mg/dL Creatinine (0.5-1.4) mg/dL Estim Creat Clear Calc Estimated GFR Random Glucose (60-115) mg/dL Calcium (8.4-10.2) mg/dL Total Bilirubin (0.0-1.0) mg/dL Direct Bilirubin (0.0-0.5) mg/dL AST (5-37) U/L ALT (0-40) U/L Alkaline Phosphatase (39-117) U/L Total Protein (6.5-8.0) g/dL Albumin (3.5-5.0) g/dL COVID-19 ([facility]) (Negative) COVID-19 Clin Com Blood Type A Positive Antibody Screen NEGATIVE Imaging Data Chest x-ray: Radiologist's impression: left pleural effusion Critical Care Time Critical Care Time Attestation: I spent 40 minutes of critical care, with interventions, assessments, speaking to patient, consultants, and family. Discharge Plan Discharge Clinical Impression: Gastric hemorrhage, Cirrhosis, Portal vein thrombosis Patient Disposition: Admitted As Inpatient
[2021-11-01 10:38] LABS: MANUAL DIFF FLAG NO
[2021-11-01 10:41] VITALS: BP 116/77; PULSE 103; RESP 16; TEMP 37; O2SAT 96
[2021-11-01 10:41] LABS: Basophils Absolute Auto 0.1 X10*3/uL (0.0-0.2); Basophils Percent Auto 0.8 % (0-2); Eosinophils Absolute Auto 0.2 X10*3/uL (0.0-0.4); Eosinophils Percent Auto 1.9 % (0-4); Hematocrit 38.4 % (42.0-52.0); Hemoglobin 12.8 g/dl (14.0-18.0); Imm Gran Abs Auto 0.03 X10*3/uL (0.00-0.03); Imm Gran Pct Auto 0.4 % (0.0-0.4); Lymphocytes Absolute Auto 1.2 X10*3/uL (1.2-4.9); Lymphocytes Percent Auto 15.1 % (20-40); Mean Corpuscular HGB Conc 33.3 g/dl (31.0-36.0); Mean Corpuscular Hemoglobin 32.8 pg (27.0-33.0); Mean Corpuscular Volume 98.5 fL (80.0-98.0); Mean Platelet Volume 9.2 fL (9.4-12.4); Monocytes Percent Auto 12.1 % (2-11); Neutrophils Absolute Auto 5.5 x10*3/uL (2.0-8.3); Neutrophils Percent Auto 69.7 % (45-73); Platelet Count 188 X10*3/uL (160-400); Red Cell Distribution Width 13.2 % (11.0-16.0); White Blood Count 7.9 X10*3/uL (4.8-10.8)
[2021-11-01 10:42] VITALS: BP 116/77; BP 119/75; PULSE 101; PULSE 99
[2021-11-01 10:43] VITALS: BP 95/63; PULSE 110
[2021-11-01 10:58] LABS: Alanine Aminotransferase 34 U/L (0-40); Albumin Level 3.5 g/dL (3.5-5.0); Alkaline Phosphatase 371 U/L (39-117); Anion Gap 14 (12-20); Aspartate Amino Transferase 79 U/L (5-37); Bilirubin Direct 3.4 mg/dL (0.0-0.5); Bilirubin Total 5.1 mg/dL (0.0-1.0); Blood Urea Nitrogen 8 mg/dL (9-16); Calcium 9.6 mg/dL (8.4-10.2); Carbon Dioxide 26 mmol/L (22-29); Chloride 101 mmol/L (96-108); Estimated Glomerular Filt Rate > 60; Glucose Random 97 mg/dL (60-115); Potassium 4.6 mmol/L (3.3-5.1); Sodium 136 mmol/L (135-145); Total Protein 7.6 g/dL (6.5-8.0)
[2021-11-01 11:02] LABS: COVID-19 Test Negative (Negative); IDNOW Serial# 16C4AD1C
[2021-11-01 11:16] VITALS: BP 116/77; PULSE 95; RESP 16; TEMP 36.8; O2SAT 97; BMI 31.0
[2021-11-01] MEDS: Pantoprazole Sodium 40 MG/10 ML VIAL IVPUSH ×2 (11:35→16:10)
--- NOTE | 2021-11-01 13:29 | P.HPHOSP_ITS ---
History of Present Illness Date of Service: 11/01/21 Chief Complaint: melena 56yo M with decompensated EtOH cirrhosis, not on transplant list, who was just admitted here 10/18-10/21/21 for symptomatic right pleural effusion and acute portal vein thrombosis. He underwent thoracentesis and EGD. The latter demonstrated grade 3 esophageal varices and portal HTN gastropathy. The varices were banded. He was started on therapeutic LMWH For anticoagulation. He was also treated with phenobarbital for prevention of alcohol withdrawal. He presents with 1 day of acute-onset watery diarrhea that progressed to melena. In the ED, he was noted to have strongly heme-positive stool. Hb was 12.8 (compared to 13.3 at discharge). INR 1.3, platelets 188, and Tbili 5.1 (compared to 8.6 at discharge). Last alcoholic drink 3 days ago. Endorses lightheadedness. Denies abdominal pain or distension, No dyspnea. No chest pain. No hematochezia, nausea, or vomiting. No recent antibiotic usage. No tremulousness. Review of Systems Review of Systems: Yes all other systems are reviewed and are negative [facility] Medical History Alcoholic cirrhosis Alcoholism Chronic abdominal pain Cirrhosis Elevated LFTs Elevated liver function tests GERD (gastroesophageal reflux disease) Gout Liver mass, right lobe Panniculitis Family History Mother Cancer Surgical History H/O cervical spine surgery H/O colonoscopy H/O hemicolectomy Social History Household Members: None Household Members Other:: roommate Housing: Apartment Do you presently have visiting nurse or other home services: No Alcohol intake: current Alcohol intake frequency: 0-2 drinks per day Alcohol type: hard liquor Patient Tobacco Use Status: Current everyday Tobacco user Tobacco use type: Cigarette Cigarettes Per Day: 4 Advance Directives: No Advance Directives Information Provided: No service: No Current occupational status: unemployed Meds Allergies Allergy/AdvReac Type Severity Reaction Status Date / Time No Known Drug Allergies Allergy Mild NONE Verified 09/16/21 07:40 [NO KNOWN DRUG ALLERGIES] Active Medications: Current Medications Acetaminophen (Acetaminophen 325 Mg Tablet) 650 mg PO Q6H PRN PRN Reason: Pain, Mild (Pain Scale 1-3) Bupropion HCl (Bupropion Hcl Xl 300 Mg Tab.Er.24h) 300 mg PO DAILY [facility] Cyanocobalamin (Cyanocobalamin (Vitamin B-12) 1,000 Mcg Tablet) 1,000 mcg PO DAILY [facility] Folic Acid (Folic Acid 1 Mg Tablet) 1 mg PO DAILY [facility] Furosemide (Furosemide 20 Mg Tablet) 20 mg PO DAILY [facility]; Protocol Ondansetron HCl (Ondansetron Hcl 4 Mg/2 Ml Vial) 4 mg IVPUSH Q8H PRN PRN Reason: Nausea and Vomiting Pharmacy Consult (Consult Rx Perform Med Rec) 1 each MISCELLANE ONCE PRN PRN Reason: Consult order Sodium Chloride (0.9 % Sodium Chloride Flush 3 Ml Syringe) 3 ml IVFLUSH QSHIFT [facility] Spironolactone (Spironolactone 25 Mg Tablet) 50 mg PO DAILY [facility]; Protocol Topiramate (Topiramate 25 Mg Tablet) 25 mg PO BID [facility] Home Medications Medication Instructions Recorded Confirmed Last Taken Type bupropion HCl 300 mg 24 hr tablet, 300 mg PO DAILY 06/10/21 11/01/21 10/18/21 History extended release cyanocobalamin (vitamin B-12) 1,000 mcg PO DAILY 06/10/21 11/01/21 10/18/21 History 1,000 mcg tablet folic acid 1 mg tablet 1 mg PO DAILY 06/10/21 11/01/21 10/18/21 History thiamine HCl (vitamin B1) 100 mg 100 mg PO DAILY 06/10/21 11/01/21 10/18/21 History tablet hlogqc-jkhrwgyq-cpelczp 1 cap PO TIDWM 08/10/21 10/18/21 08/10/21 History 24,000-76,000-120,000 unit capsule,delayed rel (Creon) omeprazole 40 mg capsule,delayed 1 cap PO DAILY 08/10/21 11/01/21 10/18/21 History release paroxetine HCl 20 mg tablet 1 tab PO DAILY 08/10/21 11/01/21 10/18/21 History furosemide 20 mg tablet 1 tab PO DAILY 10/18/21 11/01/21 10/18/21 History Physical Exam Vital Signs and Narrative: Vital Signs: Last Vital Signs Temp 98.3 F 11/01/21 11:16 Pulse 95 11/01/21 11:16 Resp 16 11/01/21 11:16 BP 116/77 11/01/21 11:16 Pulse Ox 97 11/01/21 11:16 BMI result Body Mass Index 31.0 Gen: in no acute distress, conversant, alert, wearing a [employer] hat HEENT: sclera icteric, moist MM, no gum bleeding Neck: supple Lungs: diminished air entry at R base Heart: regular rate and rhythm, no murmurs Abd: soft, non-tender, non-distended Ext: no edema Skin: warm/well-perfused Neuro: alert and oriented x3, no focal findings, no asterixis Psych: appropriate affect Results Labs CBC and Chem 7: 11/01/21 10:35 11/01/21 10:35 Labs: Laboratory Results - last 24 hr 11/01/21 11/01/21 11/01/21 10:35 10:35 10:37 MCV 98.5 H MCH 32.8 MCHC 33.3 RDW 13.2 Plt Count 188 D MPV 9.2 L Immature Gran % (Auto) 0.4 Neut % (Auto) 69.7 Lymph % (Auto) 15.1 L Allen % (Auto) 12.1 H Eos % (Auto) 1.9 Baso % (Auto) 0.8 Lymph # (Auto) 1.2 Allen # (Auto) 1.0 Eos # (Auto) 0.2 Baso # (Auto) 0.1 Abs Immat Gran (auto) 0.03 Absolute Neuts (auto) 5.5 Absolute Nucleated RBC 0.000 Nucleated RBC % (auto) 0.0 Anion Gap 14 Estim Creat Clear Calc TNP Estimated GFR > 60 Random Glucose 97 Calcium 9.6 D Total Bilirubin 5.1 H Direct Bilirubin 3.4 H AST 79 H ALT 34 Alkaline Phosphatase 371 H Total Protein 7.6 Albumin 3.5 COVID-19 ([facility]) Negative COVID-19 Clin Com See Note Blood Type Antibody Screen 11/01/21 10:52 MCV MCH MCHC RDW Plt Count MPV Immature Gran % (Auto) Neut % (Auto) Lymph % (Auto) Allen % (Auto) Eos % (Auto) Baso % (Auto) Lymph # (Auto) Allen # (Auto) Eos # (Auto) Baso # (Auto) Abs Immat Gran (auto) Absolute Neuts (auto) Absolute Nucleated RBC Nucleated RBC % (auto) Anion Gap Estim Creat Clear Calc Estimated GFR Random Glucose Calcium Total Bilirubin Direct Bilirubin AST ALT Alkaline Phosphatase Total Protein Albumin COVID-19 ([facility]) COVID-19 Clin Com Blood Type A Positive Antibody Screen NEGATIVE Imaging Radiologist's Impressions: Impressions Chest X-Ray 11/01/21 11:09 IMPRESSION: Small right pleural effusion. Assessment and Plan (1) Melena: Status: Acute Plan 56yo M with decompensated EtOH cirrhosis, pleural effusion [hepatic hydrothorax?], esophageal varices, alcohol dependence, portal vein thrombosis for which he was recently started on therapeutic anticoagulation with enoxaparin presenting with acute onset diarrhea with melena. # melena # suspected GI bleed # esophageal varices - admit to IMC, hold enoxaparin, GI consult, IV PPI, IV octreotide infusion, IV ceftriaxone for prevention of SBP/SBEM, NPO, continue sucralfate # portal vein thrombosis - hold enoxaparin # hx HE - rifaximin # cirrhosis with ascites - continue furosemide + spironolactone # EtOH abuse # AUD - CIWA prn, Addiciton Medicine consult - continue B vit supplementation # mood disorder - imipramine, paroxetine, bupropion # VTE ppx - SCDs, no heparinoids given bleeding Quality Stroke Does the patient have a stroke diagnosis?: No VTE Prior VTE?: No VTE Risk Level:: Medical - moderate - high VTE Device Contraindication: N/A - Device Ordered VTE Drug Contraindication: Treatment Not Indicated
--- NOTE | 2021-11-01 13:36 | PHA.MEDREC ---
Pharmacy Consult ? Medication Reconciliation Pharmacy has completed the medication reconciliation. Patient reports he no longer takes lisinopril, pravastatin or topiramate at home. He reports he still take Creon, imipramine and rifxamin even though the claim history does not have recent fills. Snow Gutirerez, PharmD
[2021-11-01 13:40] VITALS: BP 125/73; PULSE 100; RESP 14; O2SAT 95
--- NOTE | 2021-11-01 13:40 | PM.GICN ---
History of Present Illness Data of Consult Service Date: 11/01/21 Requesting physician: Shane Montoya Primary Care Provider: Martin Avilez MD HPI Reason for consult: melena 56 yo M with a hx of alcohol related decompensated cirrhosis, HTN, R pleural effusion, PVT on lovenox who I am seeing for assessment for melena He presents with 1 day of acute-onset watery diarrhea where he went to the bathroom 5 times and then that progressed to black appearing stool. He denies any fresh rectal bleeding. He is still drinking alcohol and last drink was 3 d ago where he says he had a few beers. Denies abdominal pain or distension,? No dyspnea.? No chest pain.? No hematochezia, nausea, or vomiting. No nose bleeds Hb was 12.8 (compared to 13.3 at discharge 10/21/21).? INR 1.3, platelets 188, and Tbili 5.1 (compared to 8.6 at discharge). EGD 10/19 with variceal banding for grade 3 esophageal varices and portal HTN gastropathy. He has been compliant with carafate and PPI per his recollection. He was started on therapeutic LMWH For anticoagulation from his last admission 10/18-10/21/21 for pVT Review of Systems Constitutional: Constitutional: Reports no additional constitutional complaints Eyes: Eyes: Reports no additional eye complaints ENT: Denies dizziness Cardiovascular: Cardiovascular: Reports no additional cardiovascular complaints Respiratory: Respiratory: Reports as per HPI Gastrointestinal: Gastrointestinal: Reports no additional gastrointestinal complaints Musculoskeletal: Musculoskeletal: Reports no additional musculoskeletal complaints Integumentary/Breasts: Skin/Breast: Denies rash Neurologic: Reports system reviewed and no additional complaints, except as documented, Denies dizziness and Denies Sensory deficit (Neuro) Psychiatric: Psychiatric: Denies anxiety Endocrine: Endocrine: Reports no additional endocrine complaints Hematologic/Lymphatic: Hematologic/Lymphatic: Reports no additional hematologic/lymphatic complaints [facility] Past Medical History Medical History Alcoholic cirrhosis Alcoholism Chronic abdominal pain Cirrhosis Elevated LFTs Elevated liver function tests GERD (gastroesophageal reflux disease) Gout Liver mass, right lobe Panniculitis Family History Family History Mother Cancer Surgical History Surgical History H/O cervical spine surgery H/O colonoscopy H/O hemicolectomy Social History Social History Household Members: None Household Members Other:: roommate Housing: Apartment Do you presently have visiting nurse or other home services: No Alcohol intake: current Alcohol intake frequency: a few times a month Alcohol type: hard liquor Patient Tobacco Use Status: Current everyday Tobacco user Tobacco use type: Cigarette Cigarettes Per Day: 4 Smoked in Last 30 Days: Yes Use of substances other than those prescribed or required for medical reasons: Yes Substance Use Type: Marijuana Advance Directives: No Advance Directives Information Provided: No service: No Current occupational status: unemployed Meds Allergies Allergy/AdvReac Type Severity Reaction Status Date / Time No Known Drug Allergies Allergy Mild NONE Verified 09/16/21 07:40 [NO KNOWN DRUG ALLERGIES] Active Medications: Current Medications Acetaminophen (Acetaminophen 325 Mg Tablet) 650 mg PO Q6H PRN PRN Reason: Pain, Mild (Pain Scale 1-3) Bupropion HCl (Bupropion Hcl Xl 300 Mg Tab.Er.24h) 300 mg PO DAILY [facility] Cyanocobalamin (Cyanocobalamin (Vitamin B-12) 1,000 Mcg Tablet) 1,000 mcg PO DAILY [facility] Folic Acid (Folic Acid 1 Mg Tablet) 1 mg PO DAILY [facility] Furosemide (Furosemide 20 Mg Tablet) 20 mg PO DAILY [facility]; Protocol Omeprazole (Omeprazole 40 Mg Capsule.Dr) 40 mg PO DAILY@0630 [facility] Ondansetron HCl (Ondansetron Hcl 4 Mg/2 Ml Vial) 4 mg IVPUSH Q8H PRN PRN Reason: Nausea and Vomiting Paroxetine HCl (Paroxetine Hcl 20 Mg Tablet) 20 mg PO DAILY [facility] Pharmacy Consult (Consult Rx Perform Med Rec) 1 each MISCELLANE ONCE PRN PRN Reason: Consult order Pravastatin Sodium (Pravastatin Sodium 10 Mg Tablet) 10 mg PO DAILY [facility] Sodium Chloride (0.9 % Sodium Chloride Flush 3 Ml Syringe) 3 ml IVFLUSH QSHIFT [facility] Spironolactone (Spironolactone 25 Mg Tablet) 50 mg PO DAILY [facility]; Protocol Sucralfate (Sucralfate Oral Suspension 1 Gm/10 Ml Oral.Susp) 1 gm PO BID [facility] Thiamine HCl (Thiamine Hcl 100 Mg Tablet) 100 mg PO DAILY [facility] Topiramate (Topiramate 25 Mg Tablet) 25 mg PO BID [facility] Home Medications Medication Instructions Recorded Confirmed Last Taken Type bupropion HCl 300 mg 24 hr tablet, 300 mg PO DAILY 06/10/21 11/01/21 11/01/21 History extended release cyanocobalamin (vitamin B-12) 1,000 mcg PO DAILY 06/10/21 11/01/21 11/01/21 History 1,000 mcg tablet folic acid 1 mg tablet 1 mg PO DAILY 06/10/21 11/01/21 11/01/21 History thiamine HCl (vitamin B1) 100 mg 100 mg PO DAILY 06/10/21 11/01/21 11/01/21 History tablet [id number]-[id number]-gwhilol 1 cap PO TIDWM 08/10/21 11/01/21 11/01/21 History 24,000-76,000-120,000 unit capsule,delayed rel (Creon) omeprazole 40 mg capsule,delayed 1 cap PO DAILY 08/10/21 11/01/21 11/01/21 History release paroxetine HCl 20 mg tablet 1 tab PO DAILY 08/10/21 11/01/21 11/01/21 History furosemide 20 mg tablet 1 tab PO DAILY 10/18/21 11/01/21 11/01/21 History Physical Exam Vital Signs: Vital Signs: Last Vital Signs Temp 98.3 F 11/01/21 11:16 Pulse 95 11/01/21 11:16 Resp 16 11/01/21 11:16 BP 116/77 11/01/21 11:16 Pulse Ox 97 11/01/21 11:16 BMI result Body Mass Index 31.0 Const: Nutritional Appearance: average body habitus Orientation/consciousness: oriented to person and patient oriented x3 Limitations: no limitations HEENT: Head: Yes normal to inspection Ears: external ears normal General nose exam: Normal external nose present Mouth: Normal oral and palatal mucosa present and oropharynx normal Throat: Yes posterior oropharynx normal Neck: Neck: Yes normal visual inspection Chest: Chest palpation & inspection: normal inspection of the chest Resp: Effort & Inspection: normal respiratory effort Auscultation: clear to auscultation bilaterally Cardio: Jugular venous distension: no JVD Rate: regular rate Rhythm: regular rhythm Heart sounds: S1 normal heart sound present and S2 normal heart sound present GI: Palpation (GI): Soft to palpation, Tenderness to palpation present (GI) in the RUQ and no guarding Auscultation: normal bowel sounds : General: Yes no CVA tenderness Back/Spine/Pelvis: Back: no CVA tenderness Skin: General skin exam: jaundice Neuro: General: oriented to person and patient oriented x3 Cranial nerves: Yes CN's II-XII intact bilaterally Motor exam (neuro): 5/5 motor strength present throughout Sensory Exam: No Sensory deficit (Neuro) Extrem: General: Yes normal to inspection Psych: Appearance: grossly normal Results Labs CBC & Chem 7: 11/01/21 15:28 11/01/21 10:35 Labs: Short CBC 11/01/21 Range/Units 10:35 WBC 7.9 (4.8-10.8) X10*3/uL Hgb 12.8 L (14.0-18.0) g/dl Hct 38.4 L (42.0-52.0) % Plt Count 188 D (160-400) X10*3/uL BMP 11/01/21 10:35 Sodium 136 Potassium 4.6 Chloride 101 Carbon Dioxide 26 BUN 8 L Creatinine 0.78 Calcium 9.6 D Liver Function 11/01/21 Range/Units 10:35 Total Bilirubin 5.1 H (0.0-1.0) mg/dL Direct Bilirubin 3.4 H (0.0-0.5) mg/dL AST 79 H (5-37) U/L ALT 34 (0-40) U/L Alkaline Phosphatase 371 H (39-117) U/L Albumin 3.5 (3.5-5.0) g/dL Assessment and Plan (1) Melena: Status: Acute (2) Decompensation of cirrhosis of liver: Status: Acute Plan 1/ Describes melena, on anticoagulation with recent history of variceal banding. ddx; alcoholic gastritis, portl hypertenive gastropathy bleeding, variceal bleeding PLAN: 1/ Trend HGB, transfuse if 7-8 g/dl with target 9 g/dl 2/ IV PPI and octreotide 3/ IV rocephin to prevent bacterial translocation 4/ repeat US liver and doppler 5/ watch for alcohol withdrawal 6/ hold anticoagulation for the meantime Procedures Date of Service Date of Service: 11/01/21
[2021-11-01] MEDS: Octreotide Acetate 100 MCG/ML AMPUL 50 MCG IVPUSH (14:08)
[2021-11-01] MEDS: cefTRIAXone sodium 1 GM in 0.9 % Sodium Chloride 50 ML IV (14:09)
[2021-11-01] MEDS: Octreotide Acetate 500 MCG in 0.9 % Sodium Chloride 500 ML 50.1 MCG IVCONT (14:19)
--- NOTE | 2021-11-01 14:44 | PC.NURSE ---
pt has 2 heplocks # 20 to l forearm.
[2021-11-01 15:35] LABS: Hematocrit 37.5 % (42.0-52.0); Hemoglobin 12.7 g/dl (14.0-18.0)
[2021-11-01] MEDS: 0.9 % Sodium Chloride Flush 3 ML SYRINGE IVFLUSH (16:10)
--- NOTE | 2021-11-01 17:32 | MHC.CM.PN ---
CM met with admitted patient with bed assignment pending. Pt is A&Ox4. Jaundiced. Living with various friends. Staying on couches. Address is where he gets mail. Vax with J&J and Pfizer booster. Encouraged pt to quite drinking and speak with recovery services while hospitalized. Recovery services ordered. Pt does not seem to understand that his drinking is causing medical problems. No HCP on file. Pt declines. States he doesn't trust people. D/C plan: home. Will probably stay with friend Emma, who is his contact. Pt will arrange ride home. CM to follow for d/c needs.
[2021-11-01] MEDS: Lipase/Prot/Amylase 24/76/120K 1 CAP CAPSULE.DR PO (18:01)
--- NOTE | 2021-11-01 18:54 | MHC.RECOVSUP ---
? Reason for consult:Recovery Support o Current location:ED 16 o ?Identified substance use concern: Alcohol ? - Withdrawal - Support ? ?Intervention: o Community resources provided o Harm reduction discussion ? Additional information:?Patient consultation with wiping rag washer Pineda De Luna, before point of contact. I was able to connect with Akash, he is a 56 year old single male, who has a long history with AUD, unemployed and suffers from homelessness due to possible untreated alcoholism. Upon assessment, patient was physically experiencing tremors, jaundice and weakness. It was then, when I shared my experience of alcoholism along with denial of the disease and how I was effected. Akash reflected, was able to relate and share what alcoholism was to him. We were able to review community resources and options for treatment. I then supported him through mentoring and positive affirmations. Patient wasn't forthcoming with further treatment. I will follow up with before the end of my shift with additional community resources.
[2021-11-01 20:20] VITALS: BP 139/86; PULSE 97; RESP 16; TEMP 37; O2SAT 93
[2021-11-01] MEDS: rifAXIMin 550 MG TABLET PO (21:41)
[2021-11-01] MEDS: Sucralfate Oral Suspension 1 GM/10 ML ORAL.SUSP PO (21:41)
[2021-11-01] MEDS: Imipramine HCl 50 MG TABLET PO (21:42)
[2021-11-02] VITALS (11 sets, daily range): BP systolic 111–145; BP diastolic 70–93; PULSE 89–99; RESP 16–20; TEMP 36.3–36.9; O2SAT 93–98; BMI 31.0; BMI 30.9
[2021-11-02] MEDS: Octreotide Acetate 500 MCG in 0.9 % Sodium Chloride 500 ML 50.1 MCG IVCONT ×2 (00:17→10:33)
[2021-11-02] MEDS: Pantoprazole Sodium 40 MG/10 ML VIAL IVPUSH (06:30)
--- NOTE | 2021-11-02 07:13 | PC.NURSE ---
Report received from Rashmi NAJERA. Patient resting on stretcher and denies pain. Alert and oriented. Respirations regular and even. Patient able to ambulate to restroom with IV pole independently. Patient is NPO at this time and aware of plan for endoscopy today. Discussed need for a stool sample, patient will obtain when able. Will continue to monitor.
[2021-11-02 07:17] LABS: Hematocrit 37.8 % (42.0-52.0); Hemoglobin 12.6 g/dl (14.0-18.0); Mean Corpuscular HGB Conc 33.3 g/dl (31.0-36.0); Mean Corpuscular Hemoglobin 33.3 pg (27.0-33.0); Mean Platelet Volume 9.2 fL (9.4-12.4); Platelet Count 175 X10*3/uL (160-400); Red Blood Count 3.78 X10*6/uL (4.60-5.80); Red Cell Distribution Width 13.2 % (11.0-16.0)
[2021-11-02 07:30] LABS: INTERNATIONAL NORM RATIO 1.2 (0.9-1.1)
[2021-11-02 07:38] LABS: Alanine Aminotransferase 29 U/L (0-40); Albumin Level 3.4 g/dL (3.5-5.0); Alkaline Phosphatase 324 U/L (39-117); Anion Gap 13 (12-20); Aspartate Amino Transferase 71 U/L (5-37); Bilirubin Total 4.2 mg/dL (0.0-1.0); Blood Urea Nitrogen 9 mg/dL (9-16); Calcium 9.4 mg/dL (8.4-10.2); Carbon Dioxide 27 mmol/L (22-29); Chloride 103 mmol/L (96-108); Creatinine Clr Calc Pharmacy 148.9; Estimated Glomerular Filt Rate > 60; Glucose Random 135 mg/dL (60-115); Potassium 5.4 mmol/L (3.3-5.1); Sodium 138 mmol/L (135-145); Total Protein 7.4 g/dL (6.5-8.0)
--- NOTE | 2021-11-02 08:26 | PC.NURSE ---
Report given to Reyna NAJERA in overflow. Patient remains alert and oriented. Plan remains for endoscopy today. Patient NPO. Confirmed with hospitalist that PO med can be held this AM.
--- NOTE | 2021-11-02 09:03 | PC.NURSE ---
Patient transferred to [facility] at this time.
--- NOTE | 2021-11-02 10:11 | P.CDIC_ITS ---
CDI Concurrent Query Documentation Clarification: PHYSICIAN'S DOCUMENTATION REQUEST Date of Query: 11/02/21 1011 Patient Name: Akash Barboza Admit Date: 11/01/21 Dear Doctor, A review of the medical record indicates additional documentation may be needed. Please review below and update the documentation accordingly. Risk Factors/Clinical Indicators/Treatments Per MD progress note 11/01/21: melena suspected GI bleed esophageal varices admit to IMC, hold enoxaparin, GI consult, IV PPI, IV octreotide infusion, IV ceftriaxone for prevention of SBP/SBEM, NPO, continue sucralfate Based on the above, please clarify in the Progress Notes if there is an associated link between the anticoagulant and the documented bleeding: * Bleeding likely related to anticoagulant * Bleeding is not likely related to anticoagulant * Other (please specify) * Unable to determine Use of terms such as suspected, likely, concern for, or probable (associated with a specific diagnosis that is being evaluated, monitored, or treated as if it exists) are acceptable and can be coded in the inpatient setting, when documented at the time of discharge. Thank you, Geni Middleton RN Extension: [phone] Please use your independent medical judgment in providing your response. THIS QUERY IS PART OF THE PERMANENT MEDICAL RECORD Provider Response: Other Other Diagnosis: can't determine until the endoscopy
--- NOTE | 2021-11-02 10:30 | P.CONAN_ITS ---
[facility], [facility] Active Problems Active Problems: All Active Problems (Updated 11/01/21 @ 13:38 by Kostas Mcgowan MD) Melena (Acute) Gastric hemorrhage (Acute) Portal vein thrombosis (Acute) Decompensation of cirrhosis of liver (Acute) Elevated liver function tests (Acute) Alcohol withdrawal (Acute) Irritable bowel syndrome with diarrhea (Acute) Pleural effusion (Acute) Alcoholism (Acute) Cirrhosis (Acute) Abdominal pain (Acute) Acute alcoholic pancreatitis (Acute) Neuropathic pain (Acute) Multiple adenomatous polyps (Acute) Degenerative disc disease, cervical (Acute) Chronic low back pain (Acute) Spinal stenosis (Acute) Esophageal varices (Acute) Peripheral neuropathy (Acute) Past Medical History Medical History Alcoholic cirrhosis Alcoholism Chronic abdominal pain Cirrhosis Elevated LFTs Elevated liver function tests GERD (gastroesophageal reflux disease) Gout Liver mass, right lobe Panniculitis Family History Family History Mother Cancer Family history of problems with anesthesia: No Surgical History Surgical History H/O cervical spine surgery H/O colonoscopy H/O hemicolectomy History of Problems with Anesthesia: No Social History Social History Household Members: None Household Members Other:: roommate Housing: Apartment Do you presently have visiting nurse or other home services: No Alcohol intake: current Alcohol intake frequency: a few times a month Alcohol type: hard liquor Patient Tobacco Use Status: Current everyday Tobacco user Tobacco use type: Cigarette Cigarettes Per Day: 4 Smoked in Last 30 Days: Yes Use of substances other than those prescribed or required for medical reasons: Yes Substance Use Type: Marijuana Advance Directives: No Advance Directives Information Provided: No service: No Current occupational status: unemployed Meds Allergies Allergy/AdvReac Type Severity Reaction Status Date / Time No Known Drug Allergies Allergy Mild NONE Verified 09/16/21 07:40 [NO KNOWN DRUG ALLERGIES] Active Medications: Current Medications Acetaminophen (Acetaminophen 325 Mg Tablet) 650 mg PO Q6H PRN PRN Reason: Pain, Mild (Pain Scale 1-3) Lipase/Protease/Amylase (Lipase/Prot/Amylase 24/76/120k 1 Cap Capsule.Dr) 1 cap PO TIDWM [facility] Last Admin: 11/02/21 08:25 Dose: Not Given Documented by: Bupropion HCl (Bupropion Hcl Xl 300 Mg Tab.Er.24h) 300 mg PO DAILY [facility] Last Admin: 11/02/21 09:14 Dose: Not Given Documented by: Cyanocobalamin (Cyanocobalamin (Vitamin B-12) 1,000 Mcg Tablet) 1,000 mcg PO DAILY [facility] Last Admin: 11/02/21 09:14 Dose: Not Given Documented by: Folic Acid (Folic Acid 1 Mg Tablet) 1 mg PO DAILY [facility] Last Admin: 11/02/21 09:14 Dose: Not Given Documented by: Furosemide (Furosemide 20 Mg Tablet) 20 mg PO DAILY [facility]; Protocol Last Admin: 11/02/21 09:15 Dose: Not Given Documented by: Ceftriaxone Sodium 1 gm/ (Sodium Chloride) 50 mls @ 100 mls/hr IV Q24H [facility] Last Admin: 11/01/21 14:09 Dose: 100 mls/hr Documented by: Octreotide Acetate 500 mcg/ (Sodium Chloride) 501 mls @ 50.1 mls/hr IVCONT .Q10H [facility] Last Admin: 11/02/21 00:17 Dose: 50 mcg/hr, 50.1 mls/hr Documented by: Imipramine HCl (Imipramine Hcl 50 Mg Tablet) 50 mg PO BEDTIME [facility] Last Admin: 11/01/21 21:42 Dose: 50 mg Documented by: Ondansetron HCl (Ondansetron Hcl 4 Mg/2 Ml Vial) 4 mg IVPUSH Q8H PRN PRN Reason: Nausea and Vomiting Pantoprazole Sodium (Pantoprazole Sodium 40 Mg/10 Ml Vial) 40 mg IVPUSH BID@0630,1630 [facility] Last Admin: 11/02/21 06:30 Dose: 40 mg Documented by: Paroxetine HCl (Paroxetine Hcl 20 Mg Tablet) 20 mg PO DAILY [facility] Last Admin: 11/02/21 09:15 Dose: Not Given Documented by: Pharmacy Consult (Consult Rx Perform Med Rec) 1 each MISCELLANE ONCE PRN PRN Reason: Consult order Rifaximin (Rifaximin 550 Mg Tablet) 550 mg PO BID [facility] Last Admin: 11/02/21 09:15 Dose: Not Given Documented by: Sodium Chloride (0.9 % Sodium Chloride Flush 3 Ml Syringe) 3 ml IVFLUSH QSHIFT [facility] Last Admin: 11/02/21 08:09 Dose: Not Given Documented by: Sucralfate (Sucralfate Oral Suspension 1 Gm/10 Ml Oral.Susp) 1 gm PO BID [facility] Last Admin: 11/02/21 09:16 Dose: Not Given Documented by: Thiamine HCl (Thiamine Hcl 100 Mg Tablet) 100 mg PO DAILY [facility] Last Admin: 11/02/21 09:16 Dose: Not Given Documented by: Home Medications Medication Instructions Recorded Confirmed Last Taken Type bupropion HCl 300 mg 24 hr tablet, 300 mg PO DAILY 06/10/21 11/01/21 11/01/21 History extended release cyanocobalamin (vitamin B-12) 1,000 mcg PO DAILY 06/10/21 11/01/21 11/01/21 History 1,000 mcg tablet folic acid 1 mg tablet 1 mg PO DAILY 06/10/21 11/01/21 11/01/21 History thiamine HCl (vitamin B1) 100 mg 100 mg PO DAILY 06/10/21 11/01/21 11/01/21 Hist ory tablet [id number] 1 cap PO TIDWM 08/10/21 11/01/21 11/01/21 History 24,000-76,000-120,000 unit capsule,delayed rel (Creon) omeprazole 40 mg capsule,delayed 1 cap PO DAILY 08/10/21 11/01/21 11/01/21 History release paroxetine HCl 20 mg tablet 1 tab PO DAILY 08/10/21 11/01/21 11/01/21 History furosemide 20 mg tablet 1 tab PO DAILY 10/18/21 11/01/21 11/01/21 History Exam Exam Date and Time: November 02, 2021 1030 Height,Weight and Vital Signs: Height 6 ft 5 in Weight 118.841 kg Last Vital Signs Temp 397.8 F H 11/02/21 09:23 Pulse 94 11/02/21 09:23 Resp 17 11/02/21 09:23 BP 120/76 11/02/21 09:23 Pulse Ox 95 11/02/21 09:23 Pertinent Lab Results Pertinent Lab Results: Laboratory Tests 11/01/21 11/01/21 11/01/21 10:35 10:35 10:37 WBC 7.9 RBC 3.90 L Hgb 12.8 L Hct 38.4 L MCV 98.5 H MCH 32.8 MCHC 33.3 RDW 13.2 Plt Count 188 D MPV 9.2 L Immature Gran % (Auto) 0.4 Neut % (Auto) 69.7 Lymph % (Auto) 15.1 L [place] % (Auto) 12.1 H Eos % (Auto) 1.9 Baso % (Auto) 0.8 Lymph # (Auto) 1.2 [place] # (Auto) 1.0 Eos # (Auto) 0.2 Baso # (Auto) 0.1 Abs Immat Gran (auto) 0.03 Absolute Neuts (auto) 5.5 Absolute Nucleated RBC 0.000 Nucleated RBC % (auto) 0.0 PT INR Sodium 136 Potassium 4.6 Chloride 101 Carbon Dioxide 26 Anion Gap 14 BUN 8 L Creatinine 0.78 Estim Creat Clear Calc TNP Estimated GFR > 60 Random Glucose 97 Calcium 9.6 D Magnesium Total Bilirubin 5.1 H Direct Bilirubin 3.4 H AST 79 H ALT 34 Alkaline Phosphatase 371 H Total Protein 7.6 Albumin 3.5 COVID-19 ([facility]) Negative COVID-19 Clin Com See Note Blood Type Antibody Screen 11/01/21 11/01/21 11/02/21 10:52 15:28 07:02 WBC 6.0 RBC 3.78 L Hgb 12.7 L 12.6 L Hct 37.5 L 37.8 L MCV 100.0 H MCH 33.3 H MCHC 33.3 RDW 13.2 Plt Count 175 MPV 9.2 L Immature Gran % (Auto) Neut % (Auto) Lymph % (Auto) [place] % (Auto) Eos % (Auto) Baso % (Auto) Lymph # (Auto) [place] # (Auto) Eos # (Auto) Baso # (Auto) Abs Immat Gran (auto) Absolute Neuts (auto) Absolute Nucleated RBC 0.000 Nucleated RBC % (auto) 0.0 PT INR Sodium Potassium Chloride Carbon Dioxide Anion Gap BUN Creatinine Estim Creat Clear Calc Estimated GFR Random Glucose Calcium Magnesium Total Bilirubin Direct Bilirubin AST ALT Alkaline Phosphatase Total Protein Albumin COVID-19 ([facility]) COVID-19 Clin Com Blood Type A Positive Antibody Screen NEGATIVE 11/02/21 11/02/21 07:02 07:02 WBC RBC Hgb Hct MCV MCH MCHC RDW Plt Count MPV Immature Gran % (Auto) Neut % (Auto) Lymph % (Auto) [place] % (Auto) Eos % (Auto) Baso % (Auto) Lymph # (Auto) [place] # (Auto) Eos # (Auto) Baso # (Auto) Abs Immat Gran (auto) Absolute Neuts (auto) Absolute Nucleated RBC Nucleated RBC % (auto) PT 14.0 H INR 1.2 H Sodium 138 Potassium 5.4 H Chloride 103 Carbon Dioxide 27 Anion Gap 13 BUN 9 Creatinine 0.81 Estim Creat Clear Calc 148.9 Estimated GFR > 60 Random Glucose 135 H D Calcium 9.4 Magnesium 2.0 Total Bilirubin 4.2 H Direct Bilirubin AST 71 H ALT 29 Alkaline Phosphatase 324 H Total Protein 7.4 Albumin 3.4 L COVID-19 ([facility]) COVID-19 Clin Com Blood Type Antibody Screen Airway Mallampati Class: III TM Dist: >3cm Neck ROM: Full Heart: RRR Lungs: CTA Assessment and Plan Final Anesthetic Review Family History of Problems with Anesthesia: No History of Problems with Anesthesia: No ASA Class: III Final Preanesthetic Review: Meds/Allgs Chart Reviewed, Consent Obtained/Reviewed and Anes Risks/Benef Reviewed Patient Risk: Intermediate Procedure Risk: Low Anesthetic Plan Anesthetic Plan: MAC: Disposition: Standard PACU
--- NOTE | 2021-11-02 10:44 | MHC.SHP ---
Pre-Procedural Eval Section A Date of Service: 11/02/21 The patient is an INPATIENT: Yes The History & Physical has been completed within 30 days and I have reviewed it.: Yes Section B Chief Complaint: Melena Allergies: Allergies Allergy/AdvReac Type Severity Reaction Status Date / Time No Known Drug Allergies Allergy Mild NONE Verified 09/16/21 07:40 [NO KNOWN DRUG ALLERGIES] Plan Diagnosis/Plan: Unchanged I have reviewed the history and physical and performed a pertinent physical examination on my patient. No changes have occurred unless specified.
[2021-11-02 10:50] LABS: CDiff Gene PCR NEGATIVE (Negative)
--- NOTE | 2021-11-02 11:34 | PM.OP ---
Brief Operative Note Date of Service: 11/02/21 Pre-op diagnosis: Gi bleeding Post-op diagnosis: same Procedure: see op note Surgeon: Natalie Santo MD Anesthesia: MAC Was an Gear Generator Set Up Operator used for this Procedure?: No Estimated blood loss (mL): 0 Condition: stable Disposition: PACU
--- NOTE | 2021-11-02 11:35 | W.PM.OPN ---
Operative Note Operative Note Date of Service: 11/02/21 Narrative: Procedure Description: EGD Indication: [] Anesthesia: MAC FLEXIBLE TRANSORAL UPPER GASTROINTESTINAL ENDOSCOPY UPPER ENDOSCOPY Consent: Indications for the procedure and potential complications of bleeding, perforation, reaction to medications and missed diagnosis were discussed with the patient and informed consent was obtained. Instrument: Olympus GIF H 190 J mid size upper endoscope Monitoring: Vital signs and clinical assessment, continuous EKG monitoring, Pulse oximetry, Carbon Dioxide monitoring and blood pressure monitoring were done throughout the procedure. Procedure: The patient was placed in the left lateral decubitis position and pre-procedure medications were administered and a bite block was placed. The endoscope was inserted into the mouth and advanced under direct vision to the third part of duodenum. A careful inspection was made as the upper endoscope was withdrawn including a retroflexed examination of the proximal stomach; Findings and interventions are described below. Findings: Larynx:normal Esophagus: GE junction at 40? cm, diaphragm hiatus at 40 cm, x 2 cords of grade II esophageal varices noted with slough around one area from prior banding. x 2 bands applied with good collapse. Stomach: Patchy gastric erythema and mosaic pattern consistent with portal hypertensive gastropathy. Grade 2 flap valve on retroflexed examination of the cardia. there was retained food bolus suggestive of gastroparesis. In distal body of stomach there were 3 red spots noted. When the jet was sprayed x 2 bled. x 4 clips applied to each area with slowing in the ooze. hemospray then applied. Duodenum: Normal bulb and descending duodenum, Intervention: esophageal varices. s/p banding, mucosal bleeding ?trauma from food sitting in stomach Impression/Findings: esophageal varices portal hypertensive gastropathy possible gastroparesis mucosal bleeding PLAN: Carafate 1 g BId indefinitely detention PPI e.g pantoprazole 40 mg daily clears today and advance diet tomorrow can restart lovenox after 48 hours can stop antibiotics and octreotide
--- NOTE | 2021-11-02 11:44 | HO.PM.IMPN ---
Subjective Subjective Date of Service: 11/02/21 Interval History: More melena overnight No abd pain No N/V EGD today Review of Systems Review of Systems: Yes all other systems are reviewed and are negative Physical Exam Vital Signs: Vital Signs: Last Vital Signs Temp 98.3 F 11/02/21 10:36 Pulse 98 11/02/21 10:36 Resp 17 11/02/21 10:36 BP 128/82 11/02/21 10:36 Pulse Ox 97 11/02/21 10:36 BMI result Body Mass Index 31.0 Gen: in no acute distress HEENT: sclera icteric, moist MM, no gum bleeding Neck: supple Lungs: diminished air entry at R base Heart: regular rate and rhythm, no murmurs Abd: soft, non-tender, non-distended Ext: no edema Skin: warm/well-perfused Neuro: alert and oriented x3, no focal findings, no asterixis Psych: appropriate affect Objective Data Active Medications Acetaminophen (Acetaminophen 325 Mg Tablet) 650 mg PO Q6H PRN PRN Reason: Pain, Mild (Pain Scale 1-3) Lipase/Protease/Amylase (Lipase/Prot/Amylase 24/76/120k 1 Cap Capsule.Dr) 1 cap PO TIDWM [facility] Last Admin: 11/02/21 08:25 Dose: Not Given Documented by: RADHA Non-Admin Reason: NPO Bupropion HCl (Bupropion Hcl Xl 300 Mg Tab.Er.24h) 300 mg PO DAILY [facility] Last Admin: 11/02/21 09:14 Dose: Not Given Documented by: SOCORRO Non-Admin Reason: Physician Held Med Cyanocobalamin (Cyanocobalamin (Vitamin B-12) 1,000 Mcg Tablet) 1,000 mcg PO DAILY [facility] Last Admin: 11/02/21 09:14 Dose: Not Given Documented by: SOCORRO Non-Admin Reason: Physician Held Med Folic Acid (Folic Acid 1 Mg Tablet) 1 mg PO DAILY [facility] Last Admin: 11/02/21 09:14 Dose: Not Given Documented by: SOCORRO Non-Admin Reason: Physician Held Med Furosemide (Furosemide 20 Mg Tablet) 20 mg PO DAILY [facility]; Protocol Last Admin: 11/02/21 09:15 Dose: Not Given Documented by: SOCORRO Non-Admin Reason: Physician Held Med Imipramine HCl (Imipramine Hcl 50 Mg Tablet) 50 mg PO BEDTIME [facility] Last Admin: 11/01/21 21:42 Dose: 50 mg Documented by: LIZZY Omeprazole (Omeprazole 20 Mg Capsule.Dr) 20 mg PO DAILY@0630 [facility] Ondansetron HCl (Ondansetron Hcl 4 Mg/2 Ml Vial) 4 mg IVPUSH Q8H PRN PRN Reason: Nausea and Vomiting Paroxetine HCl (Paroxetine Hcl 20 Mg Tablet) 20 mg PO DAILY [facility] Last Admin: 11/02/21 09:15 Dose: Not Given Documented by: SOCORRO Non-Admin Reason: Physician Held Med Pharmacy Consult (Consult Rx Perform Med Rec) 1 each MISCELLANE ONCE PRN PRN Reason: Consult order Rifaximin (Rifaximin 550 Mg Tablet) 550 mg PO BID [facility] Last Admin: 11/02/21 09:15 Dose: Not Given Documented by: SOCORRO Non-Admin Reason: Physician Held Med Sodium Chloride (0.9 % Sodium Chloride Flush 3 Ml Syringe) 3 ml IVFLUSH QSHIFT [facility] Last Admin: 11/02/21 08:09 Dose: Not Given Documented by: RADHA Non-Admin Reason: IV Running Sucralfate (Sucralfate Oral Suspension 1 Gm/10 Ml Oral.Susp) 1 gm PO BID [facility] Last Admin: 11/02/21 09:16 Dose: Not Given Documented by: SOCORRO Non-Admin Reason: Physician Held Med Thiamine HCl (Thiamine Hcl 100 Mg Tablet) 100 mg PO DAILY [facility] Last Admin: 11/02/21 09:16 Dose: Not Given Documented by: SOCORRO Non-Admin Reason: Physician Held Med Labs CBC & Chem 7: 11/02/21 07:02 11/02/21 07:02 Labs: Laboratory Results - last 24 hr 11/02/21 11/02/21 11/02/21 07:02 07:02 07:02 MCV 100.0 H MCH 33.3 H MCHC 33.3 RDW 13.2 Plt Count 175 MPV 9.2 L Absolute Nucleated RBC 0.000 Nucleated RBC % (auto) 0.0 PT 14.0 H INR 1.2 H Anion Gap 13 Estim Creat Clear Calc 148.9 Estimated GFR > 60 Random Glucose 135 H D Calcium 9.4 Magnesium 2.0 Total Bilirubin 4.2 H AST 71 H ALT 29 Alkaline Phosphatase 324 H Total Protein 7.4 Albumin 3.4 L C. difficile Tox B Gene 11/02/21 08:08 MCV MCH MCHC RDW Plt Count MPV Absolute Nucleated RBC Nucleated RBC % (auto) PT INR Anion Gap Estim Creat Clear Calc Estimated GFR Random Glucose Calcium Magnesium Total Bilirubin AST ALT Alkaline Phosphatase Total Protein Albumin C. difficile Tox B Gene NEGATIVE Assessment and Plan (1) Melena: Status: Acute (2) Gastric hemorrhage: Status: Acute (3) Portal vein thrombosis: Status: Acute Plan 56yo M with decompensated EtOH cirrhosis, pleural effusion [hepatic hydrothorax?], esophageal varices, alcohol dependence, portal vein thrombosis for which he was recently started on therapeutic anticoagulation with enoxaparin presenting with acute onset diarrhea with melena. # melena # upper GI bleed # esophageal varices - EGD done today by Dr Santo Esophagus: GE junction at 40? cm, diaphragm hiatus at 40 cm, x 2 cords of grade II esophageal varices noted with slough around one area from prior banding. x 2 bands applied with good collapse. Stomach: Patchy gastric erythema and mosaic pattern consistent with portal hypertensive gastropathy. Grade 2 flap valve on retroflexed examination of the cardia. there was retained food bolus suggestive of gastroparesis. In distal body of stomach there were 3 red spots noted. When the jet was sprayed x 2 bled. x 4 clips applied to each area with slowing in the ooze. hemospray then applied. - per GI: suspected mucosal bleeding from ?food in stomach. D/c octreotide + ceftriaxone, Change to PO PPI. Continue sucralfate indefinitely. hold enoxaparin x48h then resume. CLD today, advance tomorrow if tolerated # portal vein thrombosis - hold enoxaparin, resume in 48h if no bleeding # hx HE - rifaximin # cirrhosis with ascites - continue furosemide + spironolactone # hyperK - mild, give 1 dose SZC and hold spironolactone, recheck BMP in AM # EtOH abuse # AUD - CIWA prn, Addiciton Medicine consult - continue B vit supplementation # mood disorder - imipramine, paroxetine, bupropion # VTE ppx - SCDs, restart LMWH in 48h In my clinical judgment, the patient requires continued hospitalization for the following reasons: GI bleeding/monitoring Quality Stroke Does the patient have a stroke diagnosis?: No VTE Prior VTE?: No VTE Risk Level:: Medical - moderate - high VTE Device Contraindication: N/A - Device Ordered VTE Drug Contraindication: Treatment Not Indicated
--- NOTE | 2021-11-02 12:05 | HO.POSTANES ---
Post Anesthesia Evaluation Post Anesthesia Evaluation Vital Signs: Vital Signs Temp Pulse Resp BP Pulse Ox 11/02/21 11:58 91 16 121/86 93 11/02/21 11:43 97.4 F 99 16 123/77 94 11/02/21 10:36 98.3 F 98 17 128/82 97 11/02/21 09:23 397.8 F H 94 17 120/76 95 11/02/21 06:55 94 20 11/02/21 04:46 97.7 F 96 20 111/70 95 11/02/21 00:22 97.8 F 89 20 123/80 96 Anesthesia: Monitored Mental Status: Awake Pain Control: Satisfactory Nausea/Vomiting: None Hydration: Adequate Anesthesia-Related Issues: No Anes. Related Issues
[2021-11-02] MEDS: Omeprazole 20 MG CAPSULE.DR PO (14:13)
--- NOTE | 2021-11-02 16:00 | MHC.RECOVRN ---
Met with pt in ED overflow on 11/02 prior to [place] [facility] [place] room, pt in bed, awake, alert, easily engaging in conversation. Pt does not appear in any distress, does not report withdrawal symptoms. Pt reports alcohol use since age 18. Has decreased amount over the past 2 months, currently drinking up to 1/2 gallon of vanilla vodka daily with soda. Last drink on Sunday, 10/30. Pt reports longest period without drinking has been 2 weeks. Pt denies ever experiencing withdrawal symptoms. Pt states I like to drink alcohol like coffee, sip on it throughout the day. Pt reports ability to go a couple days without drinking and feeling fine. Pt denies alcohol interfering with work, family, relationships, etc. Pt reports alcohol has only affected health thus far. Reports family hx AUD. Pt has never received treatment for AUD other than attending a few AA meetings in the past. Pt educated regarding recovery resources, supports, and medications for AUD. Pt interested in medication to help further decrease alcohol intake. Pt might be interested in a women's basketball coach, has met with one while inpatient. Provided with written information regarding supports and will read them over. T/w will follow up at a later time. Discussed with Jannet Marion APRN.
[2021-11-02] MEDS: 0.9 % Sodium Chloride Flush 3 ML SYRINGE IVFLUSH ×2 (17:19→22:34)
[2021-11-02] MEDS: Lipase/Prot/Amylase 24/76/120K 1 CAP CAPSULE.DR PO (18:15)
--- NOTE | 2021-11-02 18:17 | PC.NURSE ---
dinner arrived in ED overflow, medicated per provider order - medication given w meal.
[2021-11-02] MEDS: rifAXIMin 550 MG TABLET PO (21:01)
[2021-11-02] MEDS: Sucralfate Oral Suspension 1 GM/10 ML ORAL.SUSP PO (21:01)
[2021-11-02] MEDS: Imipramine HCl 50 MG TABLET PO (21:01)
[2021-11-03 04:00] VITALS: BP 132/76; PULSE 76; RESP 20; TEMP 37.1; O2SAT 98
[2021-11-03] MEDS: Omeprazole 20 MG CAPSULE.DR PO (05:54)
[2021-11-03 07:21] LABS: Hematocrit 37.3 % (42.0-52.0); Hemoglobin 12.4 g/dl (14.0-18.0); Mean Corpuscular HGB Conc 33.2 g/dl (31.0-36.0); Mean Corpuscular Hemoglobin 33.2 pg (27.0-33.0); Mean Platelet Volume 9.4 fL (9.4-12.4); Platelet Count 177 X10*3/uL (160-400); Red Blood Count 3.73 X10*6/uL (4.60-5.80); White Blood Count 6.6 X10*3/uL (4.8-10.8)
[2021-11-03 07:22] VITALS: BP 134/88; PULSE 95; RESP 18; TEMP 36.5; O2SAT 94
[2021-11-03 07:28] LABS: Anion Gap 11 (12-20); Blood Urea Nitrogen 9 mg/dL (9-16); Calcium 9.3 mg/dL (8.4-10.2); Carbon Dioxide 28 mmol/L (22-29); Chloride 103 mmol/L (96-108); Creatinine Clr Calc Pharmacy 152.5; Estimated Glomerular Filt Rate > 60; Glucose Random 117 mg/dL (60-115); Potassium 4.4 mmol/L (3.3-5.1); Sodium 138 mmol/L (135-145)
[2021-11-03] MEDS: 0.9 % Sodium Chloride Flush 3 ML SYRINGE IVFLUSH (08:55)
--- NOTE | 2021-11-03 10:48 | HO.POSTANES ---
Post Anesthesia Evaluation Post Anesthesia Evaluation Vital Signs: Vital Signs Temp Pulse Resp BP Pulse Ox 11/03/21 07:22 97.7 F 95 18 134/88 94 11/03/21 04:00 98.8 F 76 20 132/76 98 Anesthesia: Monitored Mental Status: Awake Pain Control: Satisfactory Nausea/Vomiting: None Hydration: Adequate Anesthesia-Related Issues: No Anes. Related Issues
[2021-11-03] MEDS: buPROPion HCl XL 300 MG TAB.ER.24H PO (10:55)
[2021-11-03] MEDS: Spironolactone 25 MG TABLET 50 MG PO (10:55)
[2021-11-03] MEDS: Folic Acid 1 MG TABLET PO (10:55)
[2021-11-03] MEDS: PARoxetine HCL 20 MG TABLET PO (10:55)
[2021-11-03] MEDS: Thiamine HCL 100 MG TABLET PO (10:55)
[2021-11-03] MEDS: Cyanocobalamin (Vitamin B-12) 1,000 MCG TABLET 1000 MCG PO (10:55)
[2021-11-03] MEDS: rifAXIMin 550 MG TABLET PO (10:55)
[2021-11-03] MEDS: Sucralfate Oral Suspension 1 GM/10 ML ORAL.SUSP PO (10:56)
[2021-11-03] MEDS: Furosemide 20 MG TABLET PO (10:56)
[2021-11-03] MEDS: Lipase/Prot/Amylase 24/76/120K 1 CAP CAPSULE.DR PO (10:59)
--- NOTE | 2021-11-03 11:06 | PM.DS ---
DS: Providers Provider Date of Service: 11/03/21 Date of admission: 11/01/21 13:26 Date of discharge: 11/03/21 Primary care physician: Martin Avilez MD Consults: 11/01/21 13:13 Consult to Gastroenterology Routine Consulting Provider: Natalie Santo Reason for consultation: melanotic diarrhea, decomp cirrhosis 11/01/21 13:43 Addiction Medicine Routine Consulting Provider: Jannet Marion Reason for consultation: aud DS: Diagnosis Discharge Diagnosis (1) Melena: Status: Acute (2) Gastric hemorrhage: Status: Acute (3) Portal vein thrombosis: Status: Acute (4) Alcoholic cirrhosis of liver: Status: Acute DS: Summary Hospital Course Hospital Course: from my admission H+P, 11/01/21: 56yo M with decompensated EtOH cirrhosis, not on transplant list, who was just admitted here 10/18-10/21/21 for symptomatic right pleural effusion and acute portal vein thrombosis.? He underwent thoracentesis and EGD.? The latter demonstrated grade 3 esophageal varices and portal HTN gastropathy.? The varices were banded.? He was started on therapeutic LMWH For anticoagulation.? He was also treated with phenobarbital for prevention of alcohol withdrawal. He presents with 1 day of acute-onset watery diarrhea that progressed to melena.? In the ED, he was noted to have strongly heme-positive stool.? Hb was 12.8 (compared to 13.3 at discharge).? INR 1.3, platelets 188, and Tbili 5.1 (compared to 8.6 at discharge).? Last alcoholic drink 3 days ago. Endorses lightheadedness. Denies abdominal pain or distension,? No dyspnea.? No chest pain.? No hematochezia, nausea, or vomiting.? No recent antibiotic usage.? No tremulousness. He was admitted to the [facility] [place]. Enoxaparin was held. Hemoglobin remained stable. GI was consulted. EGD was done by Dr Santo on 11/02/21 and showed: Esophagus: GE junction at 40? cm, diaphragm hiatus at 40 cm, x 2 cords of grade II esophageal varices noted with slough around one area from prior banding. x 2 bands applied with good collapse. Stomach: Patchy gastric erythema and mosaic pattern consistent with portal hypertensive gastropathy. Grade 2 flap valve on retroflexed examination of the cardia. there was retained food bolus suggestive of gastroparesis. In distal body of stomach there were 3 red spots noted. When the jet was sprayed x 2 bled. x 4 clips applied to each area with slowing in the ooze. hemospray then applied. He was ultimately suspected to have mucosal bleeding from the stomach, possibly traumatic from food. Diet was advanced and he was placed back on oral PPI and oral sucralfate. Regarding portal vein thrombosis, a repeat Doppler US showed resolution of the main portal vein thrombus, so anticoagulation was discontinued. He should follow up with Primary Care and GI in 1 week; repeat CBCd + CMP was ordered to be done 11/14/21. Time Spent with Patient Time attestation: Total time spent providing and/or coordinating discharge services: Discharge coordination time: Greater than 30 minutes Quality: Safe Use of Opioids Does Pt have an Active Cancer Diagnosis on the Problem List?: No Quality: Stroke Does the patient have a stroke diagnosis?: No Physical Exam Vital Signs: Vital Signs: Last Vital Signs Temp 97.7 F 11/03/21 07:22 Pulse 95 11/03/21 07:22 Resp 18 11/03/21 07:22 BP 134/88 11/03/21 07:22 Pulse Ox 94 11/03/21 07:22 BMI result Body Mass Index 30.9 Gen: in no acute distress HEENT: sclera icteric, moist MM, no gum bleeding Neck: supple Lungs: diminished air entry at R base Heart: regular rate and rhythm, no murmurs Abd: soft, non-tender, non-distended Ext: no edema Skin: warm/well-perfused Neuro: alert and oriented x3, no focal findings, no asterixis Psych: appropriate affect DS: Data Data Completed and Pending Completed studies during hospitalization [Text1]: Laboratory Results WBC 6.6 X10*3/uL (4.8-10.8) 11/03/21 06:49 RBC 3.73 X10*6/uL (4.60-5.80) L 11/03/21 06:49 Hgb 12.4 g/dl (14.0-18.0) L 11/03/21 06:49 Hct 37.3 % (42.0-52.0) L 11/03/21 06:49 MCV 100.0 fL (80.0-98.0) H 11/03/21 06:49 MCH 33.2 pg (27.0-33.0) H 11/03/21 06:49 MCHC 33.2 g/dl (31.0-36.0) 11/03/21 06:49 RDW 13.0 % (11.0-16.0) 11/03/21 06:49 Plt Count 177 X10*3/uL (160-400) 11/03/21 06:49 MPV 9.4 fL (9.4-12.4) 11/03/21 06:49 Immature Gran % (Auto) 0.4 % (0.0-0.4) 11/01/21 10:35 Neut % (Auto) 69.7 % (45-73) 11/01/21 10:35 Lymph % (Auto) 15.1 % (20-40) L 11/01/21 10:35 [place] % (Auto) 12.1 % (2-11) H 11/01/21 10:35 Eos % (Auto) 1.9 % (0-4) 11/01/21 10:35 Baso % (Auto) 0.8 % (0-2) 11/01/21 10:35 Lymph # (Auto) 1.2 X10*3/uL (1.2-4.9) 11/01/21 10:35 [place] # (Auto) 1.0 X10*3/uL (0.1-1.2) 11/01/21 10:35 Eos # (Auto) 0.2 X10*3/uL (0.0-0.4) 11/01/21 10:35 Baso # (Auto) 0.1 X10*3/uL (0.0-0.2) 11/01/21 10:35 Abs Immat Gran (auto) 0.03 X10*3/uL (0.00-0.03) 11/01/21 10:35 Absolute Neuts (auto) 5.5 x10*3/uL (2.0-8.3) 11/01/21 10:35 Absolute Nucleated RBC 0.000 X10*3/uL (0.0-0.012) 11/03/21 06:49 Nucleated RBC % (auto) 0.0 /100WBC (0.0-0.2) 11/03/21 06:49 PT 14.0 SEC (9.9-13.0) H 11/02/21 07:02 INR 1.2 (0.9-1.1) H 11/02/21 07:02 Sodium 138 mmol/L (135-145) 11/03/21 06:50 Potassium 4.4 mmol/L (3.3-5.1) 11/03/21 06:50 Chloride 103 mmol/L (96-108) 11/03/21 06:50 Carbon Dioxide 28 mmol/L (22-29) 11/03/21 06:50 Anion Gap 11 (12-20) L 11/03/21 06:50 BUN 9 mg/dL (9-16) 11/03/21 06:50 Creatinine 0.79 mg/dL (0.5-1.4) 11/03/21 06:50 Estim Creat Clear Calc 152.5 11/03/21 06:50 Estimated GFR > 60 11/03/21 06:50 Random Glucose 117 mg/dL (60-115) H 11/03/21 06:50 Calcium 9.3 mg/dL (8.4-10.2) 11/03/21 06:50 Magnesium 2.0 mg/dL (1.6-2.6) 11/02/21 07:02 Total Bilirubin 4.2 mg/dL (0.0-1.0) H 11/02/21 07:02 Direct Bilirubin 3.4 mg/dL (0.0-0.5) H 11/01/21 10:35 AST 71 U/L (5-37) H 11/02/21 07:02 ALT 29 U/L (0-40) 11/02/21 07:02 Alkaline Phosphatase 324 U/L (39-117) H 11/02/21 07:02 Total Protein 7.4 g/dL (6.5-8.0) 11/02/21 07:02 Albumin 3.4 g/dL (3.5-5.0) L 11/02/21 07:02 C. difficile Tox B Gene NEGATIVE (Negative) 11/02/21 08:08 COVID-19 ([facility]) Negative (Negative) 11/01/21 10:37 COVID-19 Clin Com See Note 11/01/21 10:37 Blood Type A Positive 11/01/21 10:52 Antibody Screen NEGATIVE 11/01/21 10:52 Impressions Chest X-Ray 11/01/21 11:09 IMPRESSION: Small right pleural effusion. Doppler Study Ultrasound 11/02/21 10:11 IMPRESSION: Appearance of patent portal veins with hepatopedal flow and no evidence of portal varices. Patent hepatic artery with some elevation in velocity within the main hepatic artery at 209 cm/s. Right hepatic vein and inferior vena cava without respiratory variation identified. Hepatosplenomegaly. Discharge Plan Discharge Patient Disposition: Home, Self-Care Discharge Diagnosis: upper GI bleed, portal venous thrombosis RESOLVED, alcohol use disorder Referrals: Natalie Santo MD [Physician] - 1 Week Martin Avilez MD [Primary Care Provider] - 1 Week Discharge Medications: New nicotine (polacrilex) 2 mg gum 2 mg buccal Q2H Qty: 100 0RF Continued omeprazole 40 mg capsule,delayed release(DR/EC) 1 cap PO DAILY 0RF paroxetine HCl 20 mg tablet 1 tab PO DAILY 0RF Creon 24,000-76,000 -120,000 unit capsule,delayed release(DR/EC) 1 cap PO TIDWM 0RF Rx Instructions: administer with meals and/or snacks furosemide 20 mg tablet 1 tab PO DAILY 0RF sucralfate 100 mg/mL Suspension 1 g PO BID 14 Days Qty: 280 0RF spironolactone [Aldactone] 50 mg tablet 50 mg PO DAILY 30 Days Qty: 30 0RF folic acid 1 mg tablet 1 mg PO DAILY 0RF bupropion HCl 300 mg tablet extended release 24 hr 300 mg PO DAILY 0RF thiamine HCl (vitamin B1) 100 mg tablet 100 mg PO DAILY 0RF cyanocobalamin (vitamin B-12) 1,000 mcg tablet 1,000 mcg PO DAILY 0RF imipramine HCl 50 mg tablet 50 mg PO BEDTIME Qty: 30 6RF Xifaxan 550 mg tablet 550 mg PO BID Qty: 60 6RF Discontinued enoxaparin [Lovenox] 120 mg/0.8 mL syringe 120 mg subcut Q12H 30 Days Qty: 48 0RF Hold Instructions: Resume on 11/04/21. Discharge Orders: Discharge Order (Routine); Ordered 11/03/21 Ordered By: Kostas Mcgowan Diet: advance to usual diet Activity on Discharge: As tolerated Stand Alone Forms: Patient Portal Discharge page Other Ambulatory Orders: Complete Blood Count no Diff (Routine) Timeframe: 20211107 Facility: [facility] - Location: Laboratory Ordered By: Kostas Mcgowan Comprehensive Met. Panel (Routine) Timeframe: 20211107 Facility: [facility] - Location: Laboratory Ordered By: Kostas Mcgowan Care Plan Goals: liver health sobriety Health Concerns: upper GI bleed, portal venous thrombosis RESOLVED, alcohol use disorder Plan of Treatment: repeat labs in 4 days: CBCd, CMP stop Lovenox return to hospital if any blood in stools or black stools follow up with Primary Care and Gastroenterology in 1 week Assessment: See Discharge Summary Patient Instructions: Cirrhosis (DC)
--- NOTE | 2021-11-03 11:12 | MHC.CM.PN ---
Addendum entered by Yadira Napier 11/03/21 11:33: Discharge is today. The discharge notice was retracted due to a clerical error. Addendum entered by Yadira Napier 11/03/21 11:17: DC for today has been cancelled. Original Note: Male 56 DX Melana He is discharged to home today, no services. He has arranged for transportation.
[2021-11-03 11:20] VITALS: BP 132/76; PULSE 99; RESP 18; TEMP 36.7; O2SAT 97
== END 2021-11-03 11:55 | disposition home or self-care (01) | DRG 280 ==
LOC: HO.ED 13:15 → HO.EDOVER 13:34 → HO.IMC 11-02 21:31
PROVIDERS: Internal Medicine Gastroenterology; Admitting Provider Family Medicine; Emergency Provider Emergency Medicine; PCP Internal Medicine; Visit Provider Family Medicine
PROC: 0DJ08ZZ Inspection of Upper Intestinal Tract, Via Natural or Artificial Opening Endoscopic (ICD-10-PCS; CPT 43235; principal; 2021-11-02 12:10)
DX: K70.31 Alcoholic cirrhosis of liver with ascites (principal); I81 Portal vein thrombosis; I85.11 Secondary esophageal varices with bleeding; F10.20 Alcohol dependence, uncomplicated; F17.210 Nicotine dependence, cigarettes, uncomplicated; K76.6 Portal hypertension; K31.84 Gastroparesis; K31.89 Other diseases of stomach and duodenum; K21.9 Gastro-esophageal reflux disease without esophagitis; Z20.822 Contact with and (suspected) exposure to COVID-19; Z71.6 Tobacco abuse counseling; Z79.01 Long term (current) use of anticoagulants; Z79.899 Other long term (current) drug therapy
CPT/HCPCS: 36415; 71046; 76700; 80048; 80053; 80076; 83735; 85014; 85018; 85025; 85027; 85610; 86850; 86900; 86901; 87045; 87046; 87493; 87635; 93975; 96374; 99285; J0696; J2354

== ENCOUNTER 2021-11-08 05:51 | Outpatient (REF) | payer MEDICAID, SELFPAY ==
[2021-11-08 07:36] LABS: Hematocrit 39.1 % (42.0-52.0); Hemoglobin 13.1 g/dl (14.0-18.0); Mean Corpuscular HGB Conc 33.5 g/dl (31.0-36.0); Mean Corpuscular Hemoglobin 32.5 pg (27.0-33.0); Mean Platelet Volume 9.8 fL (9.4-12.4); Platelet Count 189 X10*3/uL (160-400); Red Blood Count 4.03 X10*6/uL (4.60-5.80); Red Cell Distribution Width 13.1 % (11.0-16.0); White Blood Count 6.6 X10*3/uL (4.8-10.8)
[2021-11-08 07:59] LABS: Alanine Aminotransferase 41 U/L (0-40); Albumin Level 3.7 g/dL (3.5-5.0); Alkaline Phosphatase 415 U/L (39-117); Anion Gap 12 (12-20); Aspartate Amino Transferase 84 U/L (5-37); Bilirubin Direct 2.3 mg/dL (0.0-0.5); Bilirubin Total 3.5 mg/dL (0.0-1.0); Blood Urea Nitrogen 5 mg/dL (9-16); Calcium 9.6 mg/dL (8.4-10.2); Carbon Dioxide 30 mmol/L (22-29); Chloride 101 mmol/L (96-108); Estimated Glomerular Filt Rate > 60; Glucose Random 125 mg/dL (60-115); Potassium 4.5 mmol/L (3.3-5.1); Sodium 138 mmol/L (135-145); Total Protein 7.7 g/dL (6.5-8.0)
[2021-11-08 08:01] LABS: Blood Urea Nitrogen 5 mg/dL (9-16); Estimated Glomerular Filt Rate > 60
== END 2021-11-08 05:52 | disposition home or self-care (01) ==
LOC: HO.LAB 05:51
PROVIDERS: Absent Provider Physician Assistant Medical; PCP Internal Medicine; Visit Provider Nurse Practitioner
DX: K72.90 Hepatic failure, unspecified without coma (principal); K92.1 Melena; K74.60 Unspecified cirrhosis of liver; I81 Portal vein thrombosis; R16.0 Hepatomegaly, not elsewhere classified
CPT/HCPCS: 36415; 80053; 80076; 82248; 82565; 84520; 85027

== ENCOUNTER 2021-12-06 09:40 | Inpatient (IN) | payer MEDICAID, SELFPAY ==
--- NOTE | ~2021-12-06 | XR_ITS ---
EXAMINATION: XR CHEST CLINICAL INFORMATION: SOB COMPARISON: Chest 11/01/2021 TECHNIQUE: Frontal view of the chest was obtained. FINDINGS: There is a moderate opacity in the right lung base suggestive of effusion with underlying atelectasis/infiltrate. The right upper lung and left lung is expanded and clear. Heart size and pulmonary vascularity is normal. No gross bony abnormality is seen. XR/XR chest 1V IMPRESSION: Moderate right pleural effusion with underlying atelectasis/infiltrate
--- NOTE | ~2021-12-06 | CT_ITS ---
EXAMINATION: CT ANGIOGRAM OF THE CHEST WITH AND WITHOUT CONTRAST (CT PULMONARY ANGIOGRAM FOR PE) CLINICAL INFORMATION: Reason for Exam R sided pleuritic chest pain, ddimer 1999 COMPARISON: None TECHNIQUE: Prior to contrast administration, noncontrast localization images were obtained. Subsequently, multidetector volumetric imaging was performed from the thoracic inlet to below the diaphragms following the administration of 71 mL Omnipaque 350 intravenous contrast. No contrast reaction reported Sagittal, coronal, and MIP oblique sagittal reformatted images were obtained on the CT workstation, uploaded to PACS, and reviewed. This CT examination was performed using dose optimization techniques as appropriate, variously including the following: *Automated exposure control *Adjustment of mA and/or kV according to patient size (this includes techniques or standardized protocols for targeted exams where dose is matched to indication/reason for exam; i.e. extremities or head) *Use of iterative reconstruction technique Total exam dose-length product 425 mGy-cm FINDINGS: QUALITY OF STUDY/CONTRAST BOLUS: Satisfactory. PULMONARY ARTERIES: There is no central pulmonary artery filling defect. The secondary and third tertiary branches a limited evaluation but no gross filling defects seen. THORACIC AORTA: No aneurysm or dissection. LUNG: There is compressive atelectasis right lower lobe from underlying pleural effusion. No pulmonary nodules, mass or consolidation seen. PLEURA: There is moderate to large right pleural effusion with underlying right lower lobe atelectasis. No left-sided pleural effusion seen. No calcified pleural plaques. MEDIASTINUM: Central trachea and the bronchi widely patent. There are small shotty lymph nodes in the mediastinum. No pericardial effusion seen. No evidence of septal bowing or right heart strain. The thyroid lobes are symmetrical and normal. CHEST WALL/AXILLA: No axillary or internal mammary lymphadenopathy. OSSEOUS STRUCTURES: No lytic or sclerotic process seen. There is mild ventral spondylosis mid to lower dorsal spine. UPPER ABDOMEN: Unremarkable. No reflux of contrast into the hepatic veins to suggest elevated right heart pressures. CT/CT angio chest PE protocol IMPRESSION: No evidence of central PE. No evidence of aortic dissection or aneurysm. Moderate to large right pleural effusion with underlying right lower lobe atelectasis. Consider thoracentesis. VTE: negative
--- NOTE | ~2021-12-06 | XR_ITS ---
EXAMINATION: XR CHEST CLINICAL INFORMATION: Post right thoracentesis COMPARISON: Previous chest x-ray from yesterday TECHNIQUE: Frontal view of the chest was obtained. FINDINGS: The cardiac and mediastinal contours are stable. There is interval decrease in the right pleural effusion. There is no pneumothorax. There is residual atelectasis at the right lung base. The lungs are otherwise clear. There is no left pleural effusion or pneumothorax. Bony structures are unremarkable. XR/XR chest 1V IMPRESSION: No pneumothorax post right thoracentesis. Residual atelectasis at the right lung base.
--- NOTE | ~2021-12-06 | US_ITS ---
PROCEDURE: ULTRASOUND-GUIDED THORACENTESIS CLINICAL INFORMATION: Right pleural effusion. COMPARISON: Previous chest x-ray and chest CT from yesterday. TECHNIQUE: Procedure, risks and benefits including bleeding, infection and pneumothorax were discussed with the patient and informed consent was obtained. The right posterior lateral chest was prepped and draped in the usual sterile fashion. The skin and soft tissues were anesthetized with 1% lidocaine plain. Using ultrasound guidance and a 4 [place] Rapid Centesis catheter, access to the right pleural effusion was obtained. 0.9 L of clear eliseo-colored fluid was removed. Diagnostic specimen was sent requested by the ordering physician. Postprocedure chest x-ray was performed. FINDINGS: There is a large right pleural effusion. US/US thoracentesis IMPRESSION: Ultrasound-guided right thoracentesis.
[2021-12-06 09:59] VITALS: BP 153/102; PULSE 108; RESP 18; TEMP 36.9; O2SAT 96; BMI 30.8
--- NOTE | 2021-12-06 10:10 | ECG_ITS ---
Test Reason : DYSPNEA Blood Pressure : / mmHG Vent. Rate : 109 BPM Atrial Rate : 109 BPM P-R Int : 176 ms QRS Dur : 090 ms QT Int : 360 ms P-R-T Axes : 059 055 043 degrees QTc Int : 484 ms Sinus tachycardia Otherwise normal ECG When compared with ECG of 18-OCT-2021 07:33, No significant change was found Referred By: Generic ED Physician Electronically Signed By:Manny Beaver
[2021-12-06 10:28] LABS: MANUAL DIFF FLAG NO
[2021-12-06 10:32] LABS: Basophils Absolute Auto 0.1 X10*3/uL (0.0-0.2); Basophils Percent Auto 1.2 % (0-2); Eosinophils Percent Auto 0.5 % (0-4); Hematocrit 40.8 % (42.0-52.0); Hemoglobin 13.8 g/dl (14.0-18.0); Imm Gran Abs Auto 0.02 X10*3/uL (0.00-0.03); Imm Gran Pct Auto 0.3 % (0.0-0.4); Lymphocytes Absolute Auto 0.6 X10*3/uL (1.2-4.9); Mean Corpuscular HGB Conc 33.8 g/dl (31.0-36.0); Mean Corpuscular Hemoglobin 32.6 pg (27.0-33.0); Mean Corpuscular Volume 96.5 fL (80.0-98.0); Mean Platelet Volume 8.6 fL (9.4-12.4); Monocytes Absolute Auto 0.6 X10*3/uL (0.1-1.2); Monocytes Percent Auto 10.8 % (2-11); Neutrophils Absolute Auto 4.5 x10*3/uL (2.0-8.3); Neutrophils Percent Auto 76.2 % (45-73); Platelet Count 119 X10*3/uL (160-400); Red Blood Count 4.23 X10*6/uL (4.60-5.80); White Blood Count 5.8 X10*3/uL (4.8-10.8)
[2021-12-06 10:37] LABS: D Dimer High Sensitivity 2080 NG/ML
--- NOTE | 2021-12-06 10:48 | ED.SOB ---
HPI - SOB/Dyspnea General Chief Complaint: General Medical Stated Complaint: SOB Time Seen by Provider: 12/06/21 10:37 Source: patient and old records reviewed Mode of arrival: ambulatory Limitations: no limitations History of Present Illness HPI Narrative: 56 yo with hx of ETOH cirrhosis with grade 3 varices and portal HTN gastropathy he is still drinking (last drank Sunday), admitted in september for thoracentesis R lung with effusion s/p thoracentesis, hx of PV thrombosis (resolved on recent US) was on lovenox until 11/03 due to GIB comes in today notes worsening dyspnea and R sided pleuritic chest pain over the weekend. MD elicited complaint: shortness of breath Pertinent past history: other (R sided pleural effusion) Onset (ago): day(s) (3) Context: recent illness Timing: progressively worsening Severity: moderate Exacerbating factors: exertion Relieving factors: rest Known history of: other (pleural effusion, cirrhosis) Associated symptoms: chest pain and other (feels shaky, has been having some nausea and dry heaves) Treatment prior to arrival: none Related Data Home Medications Medication Instructions Recorded Confirmed bupropion HCl 300 mg 24 hr tablet, 300 mg PO DAILY 06/10/21 11/01/21 extended release cyanocobalamin (vitamin B-12) 1,000 mcg PO DAILY 06/10/21 11/01/21 1,000 mcg tablet folic acid 1 mg tablet 1 mg PO DAILY 06/10/21 11/01/21 thiamine HCl (vitamin B1) 100 mg 100 mg PO DAILY 06/10/21 11/01/21 tablet [id number]-[id number] 1 cap PO TIDWM 08/10/21 11/01/21 24,000-76,000-120,000 unit capsule,delayed rel (Creon) omeprazole 40 mg capsule,delayed 1 cap PO DAILY 08/10/21 11/01/21 release paroxetine HCl 20 mg tablet 1 tab PO DAILY 08/10/21 11/01/21 furosemide 20 mg tablet 1 tab PO DAILY 10/18/21 11/01/21 Previous Rx's Medication Instructions Recorded imipramine HCl 50 mg tablet 50 mg PO BEDTIME #30 tabs 09/16/21 rifaximin 550 mg tablet (Xifaxan) 550 mg PO BID #60 tabs 09/16/21 spironolactone 50 mg tablet 50 mg PO DAILY 30 days #30 tabs 10/21/21 (Aldactone) nicotine (polacrilex) 2 mg gum 2 mg buccal Q2H #100 ea 11/03/21 sucralfate 100 mg/mL oral 10 ml PO BID 14 days #280 mL 11/24/21 suspension (Carafate) Allergies Allergy/AdvReac Type Severity Reaction Status Date / Time No Known Drug Allergies Allergy Mild NONE Verified 09/16/21 07:40 [NO KNOWN DRUG ALLERGIES] Review of Systems Review of Systems: Constitutional : No Fever, No Chills ENT/Mouth : No sore throat, No Rhinorrhea, No Swallowing Difficulty Eyes: No Eye Pain, No Swelling, No Redness Cardiovascular : pos Chest Pain, positive SOB, No Orthopnea, no Edema Respiratory : No Cough, No Sputum, No Wheezing, positive dyspnea Gastrointestinal : pos Nausea, No Vomiting, No Diarrhea, No abdominal Pain, No Hematochezia, No Melena Genitourinary : No Dysuria, No Urinary Frequency, No Hematuria Musculoskeletal : No joint pain, No Myalgias Skin : No Skin Lesions, No rash Neuro : No Weakness, No Numbness, No Dizziness, No Headache Psych : pos Anxiety/Panic, No Depression Heme/Lymph: No Bruising, No Lymphadenopathy Endocrine : No Polyuria, No Polydipsia All other systems reviewed and are negative PMFSH Past Medical History Attestation statement: The following information was validated with the patient. Source: old records reviewed Medical History Alcoholic cirrhosis Chronic abdominal pain Elevated LFTs Elevated liver function tests GERD (gastroesophageal reflux disease) Gout Liver mass, right lobe Panniculitis Surgical History H/O cervical spine surgery H/O colonoscopy H/O hemicolectomy Family History Family History Mother Cancer Social History Social History Household Members: Friend(s) Household Members Other:: roommate Housing: Apartment Do you presently have visiting nurse or other home services: No Alcohol intake: current Alcohol intake frequency: a few times a month Alcohol type: hard liquor Patient Tobacco Use Status: Current everyday Tobacco user Tobacco use type: Cigarette Cigarettes Per Day: 4 Substance Use Type: Marijuana Advance Directives: No Advance Directives Information Provided: No service: No Current occupational status: unemployed Physical Exam Vital Signs: Vital Signs: Last Vital Signs Temp 98.4 F 12/06/21 09:59 Pulse 108 H 12/06/21 09:59 Resp 18 12/06/21 09:59 BP 153/102 H 12/06/21 09:59 Pulse Ox 96 12/06/21 09:59 O2 Del Method 12/06/21 09:59 BMI result Body Mass Index 30.8 Appearance: Alert. Oriented X3. Mild acute distress. Eyes: Pupils equal, round and reactive to light. Scleral icterus ENT: Pharynx dry Neck: Normal inspection. Neck supple. CVS: tachycardic heart rate and rhythm. Pulses normal. Respiratory: No respiratory distress. Breath sounds R base diminished Abdomen: Soft and non-tender. Skin: Skin warm and dry. Normal skin color. Normal skin turgor. Extremities: No lower extremity edema. No calf ttp Neuro: Oriented X 3. No motor deficit. No sensory deficit. Tremors noted mild Course Course Course Narrative: ddimer from triage ordered over 2,000 CTA for PE ordered CXR small effusion moderate R pleural effusion no obvious PE 95% on RA with ambulation no O2 requirements ETOH withdrawal as usual repeat visits to hospital for same presentation ETOH withdrawal, non compliance, effusion MDM - SOB/Dyspnea MDM Narrative Medical decision making narrative: 56 yo male with hx of ETOH cirrhosis still actively drinking, PV thrombosis resolved on last US, recurrent pleural effusion R side s/p thoracentesis in the past here with c/o FERMIN and R sided pleuritic chest pain at this time will obtain labs, liver studies, troponin, CXR to evaluate R sided effusion, start on thiamine and IV ativan for shaking. Possible VTE vs reaccumulation of fluid itself. Lab Data Result diagrams: 12/06/21 10:24 12/06/21 10:24 Labs: Lab Results 12/06/21 12/06/21 12/06/21 Range/Units 10:24 10:24 10:24 WBC 5.8 (4.8-10.8) X10*3/uL RBC 4.23 L (4.60-5.80) X10*6/uL Hgb 13.8 L (14.0-18.0) g/dl Hct 40.8 L (42.0-52.0) % MCV 96.5 (80.0-98.0) fL MCH 32.6 (27.0-33.0) pg MCHC 33.8 (31.0-36.0) g/dl RDW 14.0 (11.0-16.0) % Plt Count 119 L D (160-400) X10*3/uL MPV 8.6 L (9.4-12.4) fL Immature Gran % (Auto) 0.3 (0.0-0.4) % Neut % (Auto) 76.2 H (45-73) % Lymph % (Auto) 11.0 L (20-40) % [place] % (Auto) 10.8 (2-11) % Eos % (Auto) 0.5 (0-4) % Baso % (Auto) 1.2 (0-2) % Lymph # (Auto) 0.6 L (1.2-4.9) X10*3/uL [place] # (Auto) 0.6 (0.1-1.2) X10*3/uL Eos # (Auto) 0.0 (0.0-0.4) X10*3/uL Baso # (Auto) 0.1 (0.0-0.2) X10*3/uL Abs Immat Gran (auto) 0.02 (0.00-0.03) X10*3/uL Absolute Neuts (auto) 4.5 (2.0-8.3) x10*3/uL Absolute Nucleated RBC 0.000 (0.0-0.012) X10*3/uL Nucleated RBC % (auto) 0.0 (0.0-0.2) /100WBC PT (9.9-13.0) SEC INR (0.9-1.1) APTT (24.1-38.0) SEC D-Dimer High Sensitivty 2080 NG/ML Sodium 137 (135-145) mmol/L Potassium 4.3 (3.3-5.1) mmol/L Chloride 101 (96-108) mmol/L Carbon Dioxide 23 (22-29) mmol/L Anion Gap 17 (12-20) BUN 7 L (9-16) mg/dL Creatinine 0.67 (0.5-1.4) mg/dL Estim Creat Clear Calc 179.4 Estimated GFR > 60 Random Glucose 134 H (60-115) mg/dL Lactic Acid (0.5-2.0) mmol/L Calcium 9.2 (8.4-10.2) mg/dL Magnesium (1.6-2.6) mg/dL Total Bilirubin (0.0-1.0) mg/dL Direct Bilirubin (0.0-0.5) mg/dL AST (5-37) U/L ALT (0-40) U/L Alkaline Phosphatase (39-117) U/L Ammonia (13-55) umol/L Troponin I High Sens (<3.5-35.0) ng/L B-Natriuretic Peptide (<100) pg/mL Total Protein (6.5-8.0) g/dL Albumin (3.5-5.0) g/dL Ethyl Alcohol mg/dL COVID-19 ([facility]) (Negative) COVID-19 Clin Com Blood Type Antibody Screen 12/06/21 12/06/21 12/06/21 Range/Units 11:28 11:28 11:28 WBC (4.8-10.8) X10*3/uL RBC (4.60-5.80) X10*6/uL Hgb (14.0-18.0) g/dl Hct (42.0-52.0) % MCV (80.0-98.0) fL MCH (27.0-33.0) pg MCHC (31.0-36.0) g/dl RDW (11.0-16.0) % Plt Count (160-400) X10*3/uL MPV (9.4-12.4) fL Immature Gran % (Auto) (0.0-0.4) % Neut % (Auto) (45-73) % Lymph % (Auto) (20-40) % [place] % (Auto) (2-11) % Eos % (Auto) (0-4) % Baso % (Auto) (0-2) % Lymph # (Auto) (1.2-4.9) X10*3/uL [place] # (Auto) (0.1-1.2) X10*3/uL Eos # (Auto) (0.0-0.4) X10*3/uL Baso # (Auto) (0.0-0.2) X10*3/uL Abs Immat Gran (auto) (0.00-0.03) X10*3/uL Absolute Neuts (auto) (2.0-8.3) x10*3/uL Absolute Nucleated RBC (0.0-0.012) X10*3/uL Nucleated RBC % (auto) (0.0-0.2) /100WBC PT 15.0 H (9.9-13.0) SEC INR 1.3 H (0.9-1.1) APTT 36.4 (24.1-38.0) SEC D-Dimer High Sensitivty NG/ML Sodium (135-145) mmol/L Potassium (3.3-5.1) mmol/L Chloride (96-108) mmol/L Carbon Dioxide (22-29) mmol/L Anion Gap (12-20) BUN (9-16) mg/dL Creatinine (0.5-1.4) mg/dL Estim Creat Clear Calc Estimated GFR Random Glucose (60-115) mg/dL Lactic Acid 1.4 (0.5-2.0) mmol/L Calcium (8.4-10.2) mg/dL Magnesium 1.9 (1.6-2.6) mg/dL Total Bilirubin 5.6 H (0.0-1.0) mg/dL Direct Bilirubin 3.3 H (0.0-0.5) mg/dL AST 95 H (5-37) U/L ALT 34 (0-40) U/L Alkaline Phosphatase 550 H D (39-117) U/L Ammonia (13-55) umol/L Troponin I High Sens (<3.5-35.0) ng/L B-Natriuretic Peptide (<100) pg/mL Total Protein 7.9 (6.5-8.0) g/dL Albumin 3.7 (3.5-5.0) g/dL Ethyl Alcohol mg/dL COVID-19 ([facility]) (Negative) COVID-19 Clin Com Blood Type Antibody Screen 12/06/21 12/06/21 12/06/21 Range/Units 11:28 11:28 12:05 WBC (4.8-10.8) X10*3/uL RBC (4.60-5.80) X10*6/uL Hgb (14.0-18.0) g/dl Hct (42.0-52.0) % MCV (80.0-98.0) fL MCH (27.0-33.0) pg MCHC (31.0-36.0) g/dl RDW (11.0-16.0) % Plt Count (160-400) X10*3/uL MPV (9.4-12.4) fL Immature Gran % (Auto) (0.0-0.4) % Neut % (Auto) (45-73) % Lymph % (Auto) (20-40) % [place] % (Auto) (2-11) % Eos % (Auto) (0-4) % Baso % (Auto) (0-2) % Lymph # (Auto) (1.2-4.9) X10*3/uL [place] # (Auto) (0.1-1.2) X10*3/uL Eos # (Auto) (0.0-0.4) X10*3/uL Baso # (Auto) (0.0-0.2) X10*3/uL Abs Immat Gran (auto) (0.00-0.03) X10*3/uL Absolute Neuts (auto) (2.0-8.3) x10*3/uL Absolute Nucleated RBC (0.0-0.012) X10*3/uL Nucleated RBC % (auto) (0.0-0.2) /100WBC PT (9.9-13.0) SEC INR (0.9-1.1) APTT (24.1-38.0) SEC D-Dimer High Sensitivty NG/ML Sodium (135-145) mmol/L Potassium (3.3-5.1) mmol/L Chloride (96-108) mmol/L Carbon Dioxide (22-29) mmol/L Anion Gap (12-20) BUN (9-16) mg/dL Creatinine (0.5-1.4) mg/dL Estim Creat Clear Calc Estimated GFR Random Glucose (60-115) mg/dL Lactic Acid (0.5-2.0) mmol/L Calcium (8.4-10.2) mg/dL Magnesium (1.6-2.6) mg/dL Total Bilirubin (0.0-1.0) mg/dL Direct Bilirubin (0.0-0.5) mg/dL AST (5-37) U/L ALT (0-40) U/L Alkaline Phosphatase (39-117) U/L Ammonia 45 (13-55) umol/L Troponin I High Sens < 3.5 (<3.5-35.0) ng/L B-Natriuretic Peptide 25 (<100) pg/mL Total Protein (6.5-8.0) g/dL Albumin (3.5-5.0) g/dL Ethyl Alcohol < 10 mg/dL COVID-19 ([facility]) (Negative) COVID-19 Clin Com Blood Type Antibody Screen 12/06/21 12/06/21 Range/Units 12:05 12:05 WBC (4.8-10.8) X10*3/uL RBC (4.60-5.80) X10*6/uL Hgb (14.0-18.0) g/dl Hct (42.0-52.0) % MCV (80.0-98.0) fL MCH (27.0-33.0) pg MCHC (31.0-36.0) g/dl RDW (11.0-16.0) % Plt Count (160-400) X10*3/uL MPV (9.4-12.4) fL Immature Gran % (Auto) (0.0-0.4) % Neut % (Auto) (45-73) % Lymph % (Auto) (20-40) % [place] % (Auto) (2-11) % Eos % (Auto) (0-4) % Baso % (Auto) (0-2) % Lymph # (Auto) (1.2-4.9) X10*3/uL [place] # (Auto) (0.1-1.2) X10*3/uL Eos # (Auto) (0.0-0.4) X10*3/uL Baso # (Auto) (0.0-0.2) X10*3/uL Abs Immat Gran (auto) (0.00-0.03) X10*3/uL Absolute Neuts (auto) (2.0-8.3) x10*3/uL Absolute Nucleated RBC (0.0-0.012) X10*3/uL Nucleated RBC % (auto) (0.0-0.2) /100WBC PT (9.9-13.0) SEC INR (0.9-1.1) APTT (24.1-38.0) SEC D-Dimer High Sensitivty NG/ML Sodium (135-145) mmol/L Potassium (3.3-5.1) mmol/L Chloride (96-108) mmol/L Carbon Dioxide (22-29) mmol/L Anion Gap (12-20) BUN (9-16) mg/dL Creatinine (0.5-1.4) mg/dL Estim Creat Clear Calc Estimated GFR Random Glucose (60-115) mg/dL Lactic Acid (0.5-2.0) mmol/L Calcium (8.4-10.2) mg/dL Magnesium (1.6-2.6) mg/dL Total Bilirubin (0.0-1.0) mg/dL Direct Bilirubin (0.0-0.5) mg/dL AST (5-37) U/L ALT (0-40) U/L Alkaline Phosphatase (39-117) U/L Ammonia (13-55) umol/L Troponin I High Sens (<3.5-35.0) ng/L B-Natriuretic Peptide (<100) pg/mL Total Protein (6.5-8.0) g/dL Albumin (3.5-5.0) g/dL Ethyl Alcohol mg/dL COVID-19 ([facility]) Negative (Negative) COVID-19 Clin Com See Note Blood Type A Positive Antibody Screen NEGATIVE ECG Data Attestation: I personally reviewed and interpreted this ECG as follows: ECG interpretation date: 12/06/21 ECG interpretation time: 10:52 Interpretation: Rate: 109 Rhythm: sinus tachycardia Riley: normal Normal P waves. Normal REAGAN. Normal QRS complex. ST T wave : no BRANDT, normal qTC: normal prior studies: no acute ischemia The study has been interpreted contemporaneously by me. . Discharge Plan Discharge Clinical Impression: Acute dyspnea, Alcohol withdrawal, Moderate sized pleural effusion, Alcoholism, Elevated liver enzymes Patient Disposition: Admitted As Inpatient Prescriptions: No Action sucralfate [Carafate] 100 mg/mL suspension 10 ml PO BID 14 Days Qty: 280 0RF omeprazole 40 mg capsule,delayed release(DR/EC) 1 cap PO DAILY paroxetine HCl 20 mg tablet 1 tab PO DAILY Creon 24,000-76,000 -120,000 unit capsule,delayed release(DR/EC) 1 cap PO TIDWM Rx Instructions: administer with meals and/or snacks furosemide 20 mg tablet 1 tab PO DAILY spironolactone [Aldactone] 50 mg tablet 50 mg PO DAILY 30 Days Qty: 30 0RF nicotine (polacrilex) 2 mg gum 2 mg buccal Q2H Qty: 100 0RF folic acid 1 mg tablet 1 mg PO DAILY bupropion HCl 300 mg tablet extended release 24 hr 300 mg PO DAILY thiamine HCl (vitamin B1) 100 mg tablet 100 mg PO DAILY cyanocobalamin (vitamin B-12) 1,000 mcg tablet 1,000 mcg PO DAILY imipramine HCl 50 mg tablet 50 mg PO BEDTIME Qty: 30 6RF Xifaxan 550 mg tablet 550 mg PO BID Qty: 60 6RF
[2021-12-06 10:50] LABS: Anion Gap 17 (12-20); Blood Urea Nitrogen 7 mg/dL (9-16); Calcium 9.2 mg/dL (8.4-10.2); Carbon Dioxide 23 mmol/L (22-29); Chloride 101 mmol/L (96-108); Creatinine Clr Calc Pharmacy 179.4; Estimated Glomerular Filt Rate > 60; Glucose Random 134 mg/dL (60-115); Potassium 4.3 mmol/L (3.3-5.1); Sodium 137 mmol/L (135-145)
[2021-12-06] MEDS: ondansetron HCL 4 MG/2 ML VIAL IVPUSH (11:29)
[2021-12-06] MEDS: LORazepam 2 MG/ML VIAL 1 MG IVPUSH (11:29)
[2021-12-06] MEDS: Magnesium Sulfate/H2O 2 GM/50 ML PIGGYBACK IV (11:30)
[2021-12-06 11:48] LABS: INTERNATIONAL NORM RATIO 1.3 (0.9-1.1)
[2021-12-06 11:50] LABS: Partial Thromboplastin Time 36.4 SEC (24.1-38.0)
[2021-12-06 11:59] LABS: Lactic Acid 1.4 mmol/L (0.5-2.0)
[2021-12-06 12:01] LABS: Ethanol < 10 mg/dL
[2021-12-06 12:05] LABS: Alanine Aminotransferase 34 U/L (0-40); Albumin Level 3.7 g/dL (3.5-5.0); Alkaline Phosphatase 550 U/L (39-117); Aspartate Amino Transferase 95 U/L (5-37); Bilirubin Direct 3.3 mg/dL (0.0-0.5); Bilirubin Total 5.6 mg/dL (0.0-1.0); Magnesium 1.9 mg/dL (1.6-2.6); Total Protein 7.9 g/dL (6.5-8.0)
[2021-12-06] MEDS: iohexoL 350 MG/ML 100 ML INFUS..BTL 71 ML IV (12:07)
[2021-12-06 12:10] LABS: B Type Natriuretic Peptide 25 pg/mL (<100); Troponin-I High Sensitivity < 3.5 ng/L (<3.5-35.0)
[2021-12-06 12:27] LABS: Ammonia 45 umol/L (13-55)
[2021-12-06 12:37] LABS: COVID-19 Test Negative (Negative)
[2021-12-06] MEDS: Thiamine HCL 200 MG in 0.9 % Sodium Chloride 100 ML 204 MG IV (12:59)
[2021-12-06 13:24] VITALS: BP 172/108; PULSE 105; RESP 20; O2SAT 94
[2021-12-06] MEDS: PHENobarbitaL 300 MG, PHENobarbitaL 60 MG 360 MG PO (14:03)
--- NOTE | 2021-12-06 14:03 | P.HPHOSP_ITS ---
History of Present Illness Date of Service: 12/06/21 Chief Complaint: sob 56M presented with sob. patient's history of decompensated alcoholic cirrhosis with varices and right pleural effusion. Was most recently discharged 11/03/2021 after hospitalization GI bleed. Patient now complaining of several days of righ t-sided chest pain, sharp, worse with inspiration. Associated with shortness of breath worse on exertion, improved with rest, progressively worsening. Patient continues to drink alcohol, last drink was 2 days prior to presentation. He has also noticed to be feeling shaky. In ED CTA was negative for PE but did show moderate right-sided effusion. Review of Systems Review of Systems: Constitutional: Denies fever, denies Chills Eyes: denies blurry vision ENT: denies sore throat CVS: right sided chest pain Respiratory: dyspnea GI: no abdominal pain : denies dysuria MSK: denies neck pain Skin: denies rash Neuro: denies specific motor weakness Psych: denies suicidal ideation Endocrine: denies heat/cold intolerance Hematologic: denies easy bleeding Allergy: denies hives [facility] Medical History Alcoholic cirrhosis Chronic abdominal pain Elevated LFTs Elevated liver function tests GERD (gastroesophageal reflux disease) Gout Liver mass, right lobe Panniculitis Family History Mother Cancer Surgical History H/O cervical spine surgery H/O colonoscopy H/O hemicolectomy Social History Household Members: Friend(s) Household Members Other:: roommate Housing: Apartment Do you presently have visiting nurse or other home services: No Alcohol intake: current Alcohol intake frequency: a few times a month Alcohol type: hard liquor Patient Tobacco Use Status: Current everyday Tobacco user Tobacco use type: Cigarette Cigarettes Per Day: 4 Substance Use Type: Marijuana Advance Directives: No Advance Directives Information Provided: No service: No Current occupational status: unemployed Meds Allergies Allergy/AdvReac Type Severity Reaction Status Date / Time No Known Drug Allergies Allergy Mild NONE Verified 09/16/21 07:40 [NO KNOWN DRUG ALLERGIES] Active Medications: Current Medications Bupropion HCl (Bupropion Hcl Xl 300 Mg Tab.Er.24h) 300 mg PO DAILY [facility] Cyanocobalamin (Cyanocobalamin (Vitamin B-12) 1,000 Mcg Tablet) 1,000 mcg PO DAILY [facility] Folic Acid (Folic Acid 1 Mg Tablet) 1 mg PO DAILY [facility] Furosemide (Furosemide 20 Mg Tablet) 20 mg PO DAILY [facility]; Protocol Omeprazole (Omeprazole 40 Mg Capsule.Dr) 40 mg PO DAILY [facility] Paroxetine HCl (Paroxetine Hcl 20 Mg Tablet) 20 mg PO DAILY [facility] Pharmacy Consult (Consult Rx Etoh Phenob Po Dose) 1 each MISCELLANE ONCE PRN; Protocol PRN Reason: Consult order Phenobarbital 200 mg/ (Phenobarbital 60 mg) 260 mg PO Q3H RYAN; Protocol Stop: 12/06/21 20:01 Phenobarbital (Phenobarbital 30 Mg Tablet) 60 mg PO BID [facility]; Protocol Stop: 12/08/21 21:01 Phenobarbital (Phenobarbital 30 Mg Tablet) 30 mg PO BID [facility]; Protocol Stop: 12/10/21 21:01 Phenobarbital (Phenobarbital 30 Mg Tablet) 30 mg PO DAILY [facility]; Protocol Stop: 12/12/21 09:01 Rifaximin (Rifaximin 550 Mg Tablet) 550 mg PO BID [facility] Spironolactone (Spironolactone 25 Mg Tablet) 50 mg PO DAILY [facility]; Protocol Sucralfate (Sucralfate Oral Suspension 1 Gm/10 Ml Oral.Susp) gm PO BID [facility] Thiamine HCl (Thiamine Hcl 100 Mg Tablet) 100 mg PO DAILY [facility] Home Medications Medication Instructions Recorded Confirmed Last Taken Type bupropion HCl 300 mg 24 hr tablet, 300 mg PO DAILY 06/10/21 12/06/21 11/01/21 History extended release cyanocobalamin (vitamin B-12) 1,000 mcg PO DAILY 06/10/21 12/06/21 11/01/21 History 1,000 mcg tablet folic acid 1 mg tablet 1 mg PO DAILY 06/10/21 12/06/21 11/01/21 History thiamine HCl (vitamin B1) 100 mg 100 mg PO DAILY 06/10/21 12/06/21 11/01/21 History tablet [id number] 1 cap PO TIDWM 08/10/21 11/01/21 11/01/21 History 24,000-76,000-120,000 unit capsule,delayed rel (Creon) omeprazole 40 mg capsule,delayed 1 cap PO DAILY 08/10/21 12/06/21 11/01/21 History release paroxetine HCl 20 mg tablet 1 tab PO DAILY 08/10/21 12/06/21 11/01/21 History furosemide 20 mg tablet 1 tab PO DAILY 10/18/21 12/06/21 11/01/21 History lisinopril 20 mg tablet 1 tab PO BID 12/06/21 Unknown History meclizine 12.5 mg tablet 1 tab PO TID PRN Dizziness 12/06/21 12/06/21 Unknown History pravastatin 10 mg tablet 1 tab PO DAILY 12/06/21 12/06/21 Unknown History topiramate 25 mg tablet 1 tab PO BID 12/06/21 Unknown History Physical Exam Vital Signs and Narrative: Vital Signs: Last Vital Signs Temp 98.4 F 12/06/21 09:59 Pulse 105 H 12/06/21 13:24 Resp 20 12/06/21 13:24 BP 172/108 H 12/06/21 13:24 Pulse Ox 94 12/06/21 13:24 O2 Del Method 12/06/21 13:24 BMI result Body Mass Index 30.8 General: tremulous, alert HEENT: atraumatic, jaundiced Neck: normal to visual inspection CVS: S1, S2, RRR Resp: diminished on right Chest: non tender GI: soft, non tender, distended : no CVA tenderness Skin: no rashes Extremities: no edema Neuro: Oriented X3, tremulous Psych: cooperative Results Labs CBC and Chem 7: 12/06/21 10:24 12/06/21 10:24 Labs: Laboratory Results - last 24 hr 12/06/21 12/06/21 12/06/21 10:24 10:24 10:24 MCV 96.5 MCH 32.6 MCHC 33.8 RDW 14.0 Plt Count 119 L D MPV 8.6 L Immature Gran % (Auto) 0.3 Neut % (Auto) 76.2 H Lymph % (Auto) 11.0 L [place] % (Auto) 10.8 Eos % (Auto) 0.5 Baso % (Auto) 1.2 Lymph # (Auto) 0.6 L [place] # (Auto) 0.6 Eos # (Auto) 0.0 Baso # (Auto) 0.1 Abs Immat Gran (auto) 0.02 Absolute Neuts (auto) 4.5 Absolute Nucleated RBC 0.000 Nucleated RBC % (auto) 0.0 PT INR APTT D-Dimer High Sensitivty 2080 Anion Gap 17 Estim Creat Clear Calc 179.4 Estimated GFR > 60 Random Glucose 134 H Lactic Acid Calcium 9.2 Magnesium Total Bilirubin Direct Bilirubin AST ALT Alkaline Phosphatase Ammonia Troponin I High Sens B-Natriuretic Peptide Total Protein Albumin Ethyl Alcohol COVID-19 ([facility]ICKSON) [employer] Blood Type Antibody Screen 12/06/21 12/06/21 12/06/21 11:28 11:28 11:28 MCV MCH MCHC RDW Plt Count MPV Immature Gran % (Auto) Neut % (Auto) Lymph % (Auto) [place] % (Auto) Eos % (Auto) Baso % (Auto) Lymph # (Auto) [place] # (Auto) Eos # (Auto) Baso # (Auto) Abs Immat Gran (auto) Absolute Neuts (auto) Absolute Nucleated RBC Nucleated RBC % (auto) PT 15.0 H INR 1.3 H APTT 36.4 D-Dimer High Sensitivty Anion Gap Estim Creat Clear Calc Estimated GFR Random Glucose Lactic Acid 1.4 Calcium Magnesium 1.9 Total Bilirubin 5.6 H Direct Bilirubin 3.3 H AST 95 H ALT 34 Alkaline Phosphatase 550 H D Ammonia Troponin I High Sens B-Natriuretic Peptide Total Protein 7.9 Albumin 3.7 Ethyl Alcohol COVID-19 ([facility]ICKSON) [employer] Blood Type Antibody Screen 12/06/21 12/06/21 12/06/21 11:28 11:28 12:05 MCV MCH MCHC RDW Plt Count MPV Immature Gran % (Auto) Neut % (Auto) Lymph % (Auto) [place] % (Auto) Eos % (Auto) Baso % (Auto) Lymph # (Auto) [place] # (Auto) Eos # (Auto) Baso # (Auto) Abs Immat Gran (auto) Absolute Neuts (auto) Absolute Nucleated RBC Nucleated RBC % (auto) PT INR APTT D-Dimer High Sensitivty Anion Gap Estim Creat Clear Calc Estimated GFR Random Glucose Lactic Acid Calcium Magnesium Total Bilirubin Direct Bilirubin AST ALT Alkaline Phosphatase Ammonia 45 Troponin I High Sens < 3.5 B-Natriuretic Peptide 25 Total Protein Albumin Ethyl Alcohol < 10 COVID-19 ([facility]) COVID-19 Clin Com Blood Type Antibody Screen 12/06/21 12/06/21 12:05 12:05 MCV MCH MCHC RDW Plt Count MPV Immature Gran % (Auto) Neut % (Auto) Lymph % (Auto) [place] % (Auto) Eos % (Auto) Baso % (Auto) Lymph # (Auto) [place] # (Auto) Eos # (Auto) Baso # (Auto) Abs Immat Gran (auto) Absolute Neuts (auto) Absolute Nucleated RBC Nucleated RBC % (auto) PT INR APTT D-Dimer High Sensitivty Anion Gap Estim Creat Clear Calc Estimated GFR Random Glucose Lactic Acid Calcium Magnesium Total Bilirubin Direct Bilirubin AST ALT Alkaline Phosphatase Ammonia Troponin I High Sens B-Natriuretic Peptide Total Protein Albumin Ethyl Alcohol COVID-19 ([facility]) Negative COVID-19 Clin Com See Note Blood Type A Positive Antibody Screen NEGATIVE Assessment and Plan (1) Acute dyspnea: Status: Acute Plan 56M presented with sob dyspnea due to recurrent right pleural effusion due to decompensated alcoholic cirrhosis conitnue lasix, plan for therapeutic thoracocentesis continue aldactone alcohol dependence with withdrawal phenobarbital protocol, ciwa mood disorder buproprion dvt prophylaxis - lovenox full code patient with singificant alcohol withdrawal symptoms at risk for delerium tremens, also with symptomatic pleural effusion, therefore, likely to need atleast 2 midnights in hospital Quality Stroke Does the patient have a stroke diagnosis?: No VTE Prior VTE?: No VTE Risk Level:: Medical - moderate - high VTE Device Contraindication: Treatment Not Indicated VTE Drug Contraindication: N/A - Med Ordered
[2021-12-06 14:30] VITALS: BP 162/97; PULSE 102; RESP 18; O2SAT 94
--- NOTE | 2021-12-06 14:47 | PHA.MEDREC ---
Pharmacy Consult ? Medication Reconciliation Pharmacy has completed the medication reconciliation. Patient provided a list of his current medications. Patient still not taking pravastatin, lisinopril and topiramate, however these medications do have recent fill dates. Patient is aware he has meclizine as a new medication but has not yet picked it up. Merna Garsia, PharmD
[2021-12-06 16:33] VITALS: PULSE 104; RESP 20; TEMP 37.2; O2SAT 96
[2021-12-06] MEDS: Enoxaparin Sodium 40 MG/0.4 ML SYRINGE SUBCUT (17:34)
[2021-12-06] MEDS: PHENobarbitaL 200 MG, PHENobarbitaL 60 MG 260 MG PO ×2 (17:35→19:56)
[2021-12-06] MEDS: 0.9 % Sodium Chloride Flush 3 ML SYRINGE IVFLUSH (17:36)
[2021-12-06] MEDS: rifAXIMin 550 MG TABLET PO (19:56)
[2021-12-06] MEDS: Sucralfate Oral Suspension 1 GM/10 ML ORAL.SUSP PO (19:56)
--- NOTE | 2021-12-06 19:59 | PC.NURSE ---
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
[2021-12-06 20:38] VITALS: BP 159/93; PULSE 104; RESP 18; TEMP 37.4; O2SAT 96
--- NOTE | 2021-12-06 22:22 | PC.NURSE ---
patient a&ox3, as previously noted patient c/o rt rib area pain- declines need for medication despite having 7/10 pain, hospital monitor remains sinus tach, pt ambulates independently to bathroom with steady gait, call zaidi within reach, resting comfortably at this time, will continue to monitor.
--- NOTE | 2021-12-06 23:13 | PC.NURSE ---
attempted to call report, floor nurse to call overflow when ready
[2021-12-07] VITALS (8 sets, daily range): BP systolic 133–158; BP diastolic 77–94; PULSE 91–106; RESP 16–20; TEMP 36–37.4; O2SAT 93–96; BMI 30.9
[2021-12-07] MEDS: 0.9 % Sodium Chloride Flush 3 ML SYRINGE IVFLUSH ×4 (00:51→21:52)
[2021-12-07 06:51] LABS: Hematocrit 39.1 % (42.0-52.0); Hemoglobin 12.9 g/dl (14.0-18.0); Mean Corpuscular Hemoglobin 32.8 pg (27.0-33.0); Mean Corpuscular Volume 99.5 fL (80.0-98.0); Mean Platelet Volume 9.3 fL (9.4-12.4); Platelet Count 119 X10*3/uL (160-400); Red Blood Count 3.93 X10*6/uL (4.60-5.80); Red Cell Distribution Width 14.2 % (11.0-16.0); White Blood Count 6.3 X10*3/uL (4.8-10.8)
[2021-12-07 07:15] LABS: Anion Gap 13 (12-20); Blood Urea Nitrogen 9 mg/dL (9-16); Calcium 8.8 mg/dL (8.4-10.2); Carbon Dioxide 26 mmol/L (22-29); Chloride 102 mmol/L (96-108); Creatinine Clr Calc Pharmacy 169.4; Estimated Glomerular Filt Rate > 60; Glucose Fasting 112 mg/dL (60-99); Potassium 4.5 mmol/L (3.3-5.1); Sodium 136 mmol/L (135-145)
[2021-12-07] MEDS: Furosemide 20 MG TABLET PO (09:19)
[2021-12-07] MEDS: Thiamine HCL 100 MG TABLET PO (09:19)
[2021-12-07] MEDS: Folic Acid 1 MG TABLET PO (09:19)
[2021-12-07] MEDS: Cyanocobalamin (Vitamin B-12) 1,000 MCG TABLET 1000 MCG PO (09:19)
[2021-12-07] MEDS: Omeprazole 40 MG CAPSULE.DR PO (09:19)
[2021-12-07] MEDS: buPROPion HCl XL 300 MG TAB.ER.24H PO (09:19)
[2021-12-07] MEDS: Spironolactone 25 MG TABLET 50 MG PO (09:19)
[2021-12-07] MEDS: PHENobarbitaL 30 MG TABLET 60 MG PO ×2 (09:19→21:52)
[2021-12-07] MEDS: PARoxetine HCL 20 MG TABLET PO (09:19)
[2021-12-07] MEDS: Sucralfate Oral Suspension 1 GM/10 ML ORAL.SUSP PO ×2 (09:19→21:51)
[2021-12-07] MEDS: rifAXIMin 550 MG TABLET PO ×2 (09:19→21:51)
--- NOTE | 2021-12-07 13:28 | HO.PM.IMPN ---
Subjective Subjective Date of Service: 12/07/21 Interval History: the patient was seen and evaluated this morning Laying in bed, feels Overall improvement since coming in but still reporting dyspnea and mild chest pain upon ambulation No reported other overnight events. Systemic review: No fever, chills or weakness No chest pain, palpitation dyspnea and chest pain upon ambulation No abdominal pain, nausea or vomiting No urinary symptoms No any rash or wounds Physical Exam Vital Signs: Vital Signs: Last Vital Signs Temp 98.9 F 12/07/21 11:45 Pulse 102 H 12/07/21 11:45 Resp 16 12/07/21 11:45 BP 133/84 12/07/21 11:45 Pulse Ox 93 12/07/21 11:45 O2 Del Method 12/07/21 11:45 BMI result Body Mass Index 30.9 Const: Other: Constitutional : Alert, oriented, not in distress Neck : Normal inspection, Supple Cardiovascular : RRR, no JVP, no lower extremity edema Respiratory : decreased air entry over the right lower lung, no wheezes Gastrointestinal: soft, lax, Normal bowel sounds, Non tender Skin : Warm, Dry Neurological : Alert & oriented x3, No focal deficit , CN 2-12 within normal Objective Data Active Medications Bupropion HCl (Bupropion Hcl Xl 300 Mg Tab.Er.24h) 300 mg PO DAILY [facility] Last Admin: 12/07/21 09:19 Dose: 300 mg Documented By: VALENCIA Cyanocobalamin (Cyanocobalamin (Vitamin B-12) 1,000 Mcg Tablet) 1,000 mcg PO DAILY [facility] Last Admin: 12/07/21 09:19 Dose: 1,000 mcg Documented By: VALENCIA Enoxaparin Sodium (Enoxaparin Sodium 40 Mg/0.4 Ml Syringe) 40 mg SUBCUT Q24H [facility] Last Admin: 12/06/21 17:34 Dose: 40 mg Documented By: SHELLIE Folic Acid (Folic Acid 1 Mg Tablet) 1 mg PO DAILY [facility] Last Admin: 12/07/21 09:19 Dose: 1 mg Documented By: VALENCIA Furosemide (Furosemide 20 Mg Tablet) 20 mg PO DAILY [facility]; Protocol Last Admin: 12/07/21 09:19 Dose: 20 mg Documented By: VALENCIA Omeprazole (Omeprazole 40 Mg Capsule.) 40 mg PO DAILY [facility] Last Admin: 12/07/21 09:19 Dose: 40 mg Documented By: VALENCIA Paroxetine HCl (Paroxetine Hcl 20 Mg Tablet) 20 mg PO DAILY [facility] Last Admin: 12/07/21 09:19 Dose: 20 mg Documented By: VALENCIA Pharmacy Consult (Consult Rx Etoh Phenob Po Dose) 1 each MISCELLANE ONCE PRN; Protocol PRN Reason: Consult order Phenobarbital (Phenobarbital 30 Mg Tablet) 60 mg PO BID [facility]; Protocol Stop: 12/08/21 21:01 Last Admin: 12/07/21 09:19 Dose: 60 mg Documented By: VALENCIA Phenobarbital (Phenobarbital 30 Mg Tablet) 30 mg PO BID [facility]; Protocol Stop: 12/10/21 21:01 Phenobarbital (Phenobarbital 30 Mg Tablet) 30 mg PO DAILY [facility]; Protocol Stop: 12/12/21 09:01 Rifaximin (Rifaximin 550 Mg Tablet) 550 mg PO BID [facility] Last Admin: 12/07/21 09:19 Dose: 550 mg Documented By: VALENCIA Sodium Chloride (0.9 % Sodium Chloride Flush 3 Ml Syringe) 3 ml IVFLUSH QSHIFT [facility] Last Admin: 12/07/21 09:19 Dose: 3 ml Documented By: VALENCIA Spironolactone (Spironolactone 25 Mg Tablet) 50 mg PO DAILY [facility]; Protocol Last Admin: 12/07/21 09:19 Dose: 50 mg Documented By: VALENCIA Sucralfate (Sucralfate Oral Suspension 1 Gm/10 Ml Oral.Susp) 1 gm PO BID [facility] Last Admin: 12/07/21 09:19 Dose: 1 gm Documented By: VALENCIA Thiamine HCl (Thiamine Hcl 100 Mg Tablet) 100 mg PO DAILY [facility] Last Admin: 12/07/21 09:19 Dose: 100 mg Documented By: VALENCIA Labs CBC & Chem 7: 12/07/21 06:05 12/07/21 06:05 Labs: Laboratory Results - last 24 hr 12/07/21 12/07/21 06:05 06:05 MCV 99.5 H MCH 32.8 MCHC 33.0 RDW 14.2 Plt Count 119 L MPV 9.3 L Absolute Nucleated RBC 0.000 Nucleated RBC % (auto) 0.0 Anion Gap 13 Estim Creat Clear Calc 169.4 Estimated GFR > 60 Fasting Glucose 112 H Calcium 8.8 Assessment and Plan (1) Acute dyspnea: Status: Acute (2) Alcohol withdrawal: Status: Acute (3) Moderate sized pleural effusion: Status: Acute Plan 56M presented with sob dyspnea due to recurrent right pleural effusion due to decompensated alcoholic cirrhosis conitnue lasix plan for therapeutic thoracocentesis, check fluid analysis and cytology continue aldactone alcohol dependence with withdrawal phenobarbital protocol, ciwa mood disorder buproprion dvt prophylaxis - lovenox full code the patient will need overnight hospital stay to continue treatment for alcohol withdrawal symptoms at risk for delerium tremens and to tree the symptomatic pleural effusion to prevent possible decompensation Quality Stroke Does the patient have a stroke diagnosis?: No VTE Prior VTE?: No VTE Risk Level:: Medical - moderate - high VTE Device Contraindication: Treatment Not Indicated VTE Drug Contraindication: N/A - Med Ordered
--- NOTE | 2021-12-07 13:42 | HO.RADPN ---
RADIOLOGY Narrative Narrative: Right thoracentesis using 5 fr angiocath. 9000 mL slightly serosanguinous fluid removed. Specimen sent . CXR pending.
[2021-12-07] MEDS: Lidocaine HCl 1 % MPF 5 ML VIAL SUBCUT (13:51)
[2021-12-07 14:43] LABS: MN% 80.8 %; PMN% 19.2 %; RBC Pleural Fluid 0.005 X10*3/uL; WBC Pleural Fluid 1.319 X10*3/uL
--- NOTE | 2021-12-07 15:11 | MHC.CM.PN ---
PATIENT LIVES WITH FRIEND AND IS FULLY INDEPENDENT WITH ADLS. ALTHOUGH HE DOES NOT HAVE A CANE OR WALKER, HE FEELS HE MAY BENEFIT FROM BUYING A CANE HE IS COVID VACCINATED X 2 (J&J AND PFIZER). PLAN IS FOR [facility] TO REMAIN OVERNIGHT AND DC EARLY HE HAS A 0930 PULMONOLOGY VISIT HERE ON [facility]AMPUS THAT HE DOES NOT WANT TO MISS PATIENT WILL CONSIDER ASSIGNING A HCP AGENT, NO DOCUMENT IS ON FILE CASE MANAGEMENT AVAILABLE TO ASSIST IF HE CHOOSES.
[2021-12-07 15:56] LABS: BF Shift QC OK YES; Lymphocytes Pleural Fluid 51 %; Man Diluent Bkgrd OK YES; Monocytes Pleural Fluid 27 %; Neutrophils Pleural Fluid 22 %; Other Cells Plerual Fl 113 %
[2021-12-07 23:03] LABS: LDH Pleural Fluid 140 U/L; Total Protein Pleural Fluid 3.3 GM/DL
[2021-12-08 03:31] VITALS: BP 126/68; PULSE 87; RESP 17; TEMP 36.1; O2SAT 97
[2021-12-08 06:39] LABS: Hematocrit 38.2 % (42.0-52.0); Hemoglobin 12.7 g/dl (14.0-18.0); Mean Corpuscular HGB Conc 33.2 g/dl (31.0-36.0); Mean Corpuscular Hemoglobin 32.6 pg (27.0-33.0); Mean Corpuscular Volume 98.2 fL (80.0-98.0); Mean Platelet Volume 9.4 fL (9.4-12.4); Platelet Count 114 X10*3/uL (160-400); Red Blood Count 3.89 X10*6/uL (4.60-5.80); Red Cell Distribution Width 14.1 % (11.0-16.0)
[2021-12-08 07:03] LABS: Anion Gap 14 (12-20); Blood Urea Nitrogen 9 mg/dL (9-16); Calcium 8.7 mg/dL (8.4-10.2); Carbon Dioxide 25 mmol/L (22-29); Chloride 98 mmol/L (96-108); Creatinine Clr Calc Pharmacy 162.6; Estimated Glomerular Filt Rate > 60; Glucose Random 138 mg/dL (60-115); Potassium 3.9 mmol/L (3.3-5.1); Sodium 133 mmol/L (135-145)
[2021-12-08 07:35] VITALS: BP 150/86; PULSE 97; RESP 18; TEMP 37.1; O2SAT 94
[2021-12-08] MEDS: Thiamine HCL 100 MG TABLET PO (08:09)
[2021-12-08] MEDS: Cyanocobalamin (Vitamin B-12) 1,000 MCG TABLET 1000 MCG PO (08:09)
[2021-12-08] MEDS: PARoxetine HCL 20 MG TABLET PO (08:09)
[2021-12-08] MEDS: Spironolactone 25 MG TABLET 50 MG PO (08:09)
[2021-12-08] MEDS: Folic Acid 1 MG TABLET PO (08:09)
[2021-12-08] MEDS: Furosemide 20 MG TABLET PO (08:09)
[2021-12-08] MEDS: Sucralfate Oral Suspension 1 GM/10 ML ORAL.SUSP PO (08:09)
[2021-12-08] MEDS: buPROPion HCl XL 300 MG TAB.ER.24H PO (08:09)
[2021-12-08] MEDS: PHENobarbitaL 30 MG TABLET 60 MG PO (08:09)
[2021-12-08] MEDS: Omeprazole 40 MG CAPSULE.DR PO (08:10)
[2021-12-08] MEDS: 0.9 % Sodium Chloride Flush 3 ML SYRINGE IVFLUSH (08:10)
[2021-12-08] MEDS: rifAXIMin 550 MG TABLET PO (08:10)
--- NOTE | 2021-12-08 08:30 | PM.DS ---
DS: Providers Provider Date of Service: 12/08/21 Date of admission: 12/06/21 14:02 Primary care physician: Martin Avilez MD DS: Diagnosis Discharge Diagnosis (1) Acute dyspnea: Status: Acute (2) Alcohol withdrawal: Status: Acute (3) Moderate sized pleural effusion: Status: Acute DS: Summary Hospital Course Hospital Course: Admission note HPI 56M presented with sob.? patient's history of decompensated alcoholic cirrhosis with varices and right pleural effusion.? Was most recently discharged 11/03/2021 after hospitalization GI bleed.? Patient now complaining of several days of right-sided chest pain, sharp, worse with inspiration.? Associated with shortness of breath worse on exertion, improved with rest, progressively worsening.? Patient continues to drink alcohol, last drink was 2 days prior to presentation.? He has also noticed to be feeling shaky.? In ED CTA was negative for PE but did show moderate right-sided effusion. Hospital course the patient was admitted to the hospital for evaluation of dyspnea. Found to right-sided effusion which is recurrent from previous presentation. Continued Lasix as a therapeutic thoracentesis was done with fluid analysis and cytology done as well. Plan to follow-up with pulmonology as outpatient to seek help with this recurrent issue. He has a follow-up visit to D with Dr. Alvarez in the office. He was treated with phenobarbital protocol for alcohol withdrawal. Advised complete abstinence from alcohol. follow a water restricted diet low sodium diet we advise you complete abstinence from alcohol follow with pulmonology as planned Time Spent with Patient Time attestation: Total time spent providing and/or coordinating discharge services: Discharge coordination time: Greater than 30 minutes Quality: Safe Use of Opioids Does Pt have an Active Cancer Diagnosis on the Problem List?: No Quality: Stroke Does the patient have a stroke diagnosis?: No Physical Exam Vital Signs: Vital Signs: Last Vital Signs Temp 98.7 F 12/08/21 07:35 Pulse 97 12/08/21 07:35 Resp 18 12/08/21 07:35 BP 150/86 H 12/08/21 07:35 Pulse Ox 94 12/08/21 07:35 O2 Del Method 12/08/21 07:35 BMI result Body Mass Index 30.9 Const: Other: Constitutional : Alert, oriented, not in distress Neck : Normal inspection, Supple Cardiovascular : RRR, no JVP, no lower extremity edema Respiratory : Improved air entry over the right lower lung but still has some expiratory rhonchi, no wheezes Gastrointestinal: soft, lax, Normal bowel sounds, Non tender Skin : Warm, Dry Neurological : Alert & oriented x3, No focal deficit , CN 2-12 within normal DS: Data Data Completed and Pending Completed studies during hospitalization [Text1]: Procedures Control Bleeding in Gastrointestinal Tract, Via Natural or Artificial Opening Endoscopic (11/01/21) Detoxification Services for Substance Abuse Treatment (10/18/21) Drainage of Right Pleural Cavity, Percutaneous Approach (10/18/21) Introduction of Mineral-based Topical Hemostatic Agent into Upper GI, Via Natural or Artificial Opening Endoscopic, [employer] (11/01/21) Occlusion of Esophageal Vein with Extraluminal Device, Via Natural or Artificial Opening Endoscopic (11/01/21) Pending studies at discharge: Pending at discharge 12/07/21 13:39 Cytology [PTH] Routine Labs on day of discharge: Laboratory Results - last 24 hr 12/07/21 12/07/21 12/08/21 13:25 13:25 05:53 WBC 6.0 RBC 3.89 L Hgb 12.7 L Hct 38.2 L MCV 98.2 H MCH 32.6 MCHC 33.2 RDW 14.1 Plt Count 114 L MPV 9.4 Absolute Nucleated RBC 0.000 Nucleated RBC % (auto) 0.0 Sodium Potassium Chloride Carbon Dioxide Anion Gap BUN Creatinine Estim Creat Clear Calc Estimated GFR Random Glucose Calcium Pleural WBC 1.319 Pleural RBC 0.005 Pleural Neutrophils 22 Pleural Lymphocytes 51 Pleural Monocytes 27 Pleural Other Cells 113 Pleural Total Protein 3.3 Pleural LDH 140 12/08/21 05:53 WBC RBC Hgb Hct MCV MCH MCHC RDW Plt Count MPV Absolute Nucleated RBC Nucleated RBC % (auto) Sodium 133 L Potassium 3.9 Chloride 98 Carbon Dioxide 25 Anion Gap 14 BUN 9 Creatinine 0.74 Estim Creat Clear Calc 162.6 Estimated GFR > 60 Random Glucose 138 H Calcium 8.7 Pleural WBC Pleural RBC Pleural Neutrophils Pleural Lymphocytes Pleural Monocytes Pleural Other Cells Pleural Total Protein Pleural LDH Imaging Chest x-ray: Radiologist's impression: ITS Impressions Chest X-Ray 12/06/21 10:45 IMPRESSION: Moderate right pleural effusion with underlying atelectasis/infiltrate Chest CTA 12/06/21 12:07 IMPRESSION: No evidence of central PE. No evidence of aortic dissection or aneurysm. Moderate to large right pleural effusion with underlying right lower lobe atelectasis. Consider thoracentesis. VTE: negative Thoracentesis/Paracentesis US 12/07/21 13:50 IMPRESSION: Ultrasound-guided right thoracentesis. Chest X-Ray 12/07/21 13:58 IMPRESSION: No pneumothorax post right thoracentesis. Residual atelectasis at the right lung base. Discharge Plan Discharge Patient Disposition: Home, Self-Care Discharge Diagnosis: Alcohol withdrawal Pleural effusion Referrals: Martin Avilez MD [Primary Care Provider] - 1 Week Discharge Medications: Continued sucralfate [Carafate] 100 mg/mL suspension 10 ml PO BID 14 Days Qty: 280 0RF omeprazole 40 mg capsule,delayed release(DR/EC) 1 cap PO DAILY paroxetine HCl 20 mg tablet 1 tab PO DAILY Creon 24,000-76,000 -120,000 unit capsule,delayed release(DR/EC) 1 cap PO TIDWM Rx Instructions: administer with meals and/or snacks furosemide 20 mg tablet 1 tab PO DAILY spironolactone [Aldactone] 50 mg tablet 50 mg PO DAILY 30 Days Qty: 30 0RF nicotine (polacrilex) 2 mg gum 2 mg buccal Q2H Qty: 100 0RF meclizine 12.5 mg tablet 1 tab PO TID PRN (Reason: Dizziness) folic acid 1 mg tablet 1 mg PO DAILY bupropion HCl 300 mg tablet extended release 24 hr 300 mg PO DAILY thiamine HCl (vitamin B1) 100 mg tablet 100 mg PO DAILY cyanocobalamin (vitamin B-12) 1,000 mcg tablet 1,000 mcg PO DAILY imipramine HCl 50 mg tablet 50 mg PO BEDTIME Qty: 30 6RF Xifaxan 550 mg tablet 550 mg PO BID Qty: 60 6RF Discharge Orders: Discharge Order (Routine); Ordered 12/08/21 Ordered By: Kalyan Moore Diet: low salt diet Activity on Discharge: As tolerated Stand Alone Forms: Patient Portal Discharge page Care Plan Goals: Read below Health Concerns: Read below Plan of Treatment: Read below Assessment: You were admitted to the hospital for shortness of breath. found to have right sided pleural effusion. you were treated for alcohol withdrawal with phenobarbital and had a procedure to remove the fluids around your lung. shortness of breath improved. follow a water restricted diet low sodium diet we advise you complete abstinence from alcohol follow with pulmonology as planned
== END 2021-12-08 09:15 | disposition home or self-care (01) | DRG 280 ==
LOC: HO.ED 13:01 → HO.EDOVER 14:08 → HO.S3 22:53
PROVIDERS: Radiology Diagnostic Radiology; Admitting Provider Internal Medicine; Emergency Provider Emergency Medicine; PCP Internal Medicine; Visit Provider Student in an Organized Health Care Education/Training Program
PROC: 0W993ZZ Drainage of Right Pleural Cavity, Percutaneous Approach (ICD-10-PCS; principal; 2021-12-07 13:00)
DX: K70.30 Alcoholic cirrhosis of liver without ascites (principal); J91.8 Pleural effusion in other conditions classified elsewhere; F10.239 Alcohol dependence with withdrawal, unspecified; K21.9 Gastro-esophageal reflux disease without esophagitis; Z20.822 Contact with and (suspected) exposure to COVID-19; Z86.010 Personal history of colon polyps; Z79.899 Other long term (current) drug therapy
CPT/HCPCS: 32555; 32557; 36415; 71045; 71275; 80048; 80076; 82077; 82140; 83605; 83615; 83735; 83880; 84157; 84484; 85025; 85027; 85379; 85610; 85730; 86850; 86900; 86901; 87635; 88112; 88305; 89051; 93005; 96365; 96366; 96375; 99285; J1650; J2060; J2405; J3411; J3475; Q9967

== ENCOUNTER → 2021-12-08 08:58 | Outpatient (BNVA) | payer MEDICAID, SELFPAY | PROVIDERS: PCP Internal Medicine; Visit Provider Hospitalist | DX: J18.0 Bronchopneumonia, unspecified organism (principal); J94.8 Other specified pleural conditions; J90 Pleural effusion, not elsewhere classified; K70.30 Alcoholic cirrhosis of liver without ascites; Z79.899 Other long term (current) drug therapy | CPT/HCPCS: 99202 ==

== ENCOUNTER 2021-12-16 05:55 | Outpatient (REF) | payer MEDICAID, SELFPAY ==
--- NOTE | ~2021-12-16 | XR_ITS ---
EXAMINATION: XR CHEST CLINICAL INFORMATION: Assess pleural effusion COMPARISON: Baseline 12/07/2021 TECHNIQUE: 2 views of the chest were obtained. FINDINGS: Progressive increasing opacification right base consistent with now a moderate-sized presumably pleural effusion. Underlying infiltrate or lesion not excluded. Left lung clear. No pneumothorax. No CHF. Heart size normal. XR/XR chest 2V IMPRESSION: Increasing opacity right base as above.
[2021-12-16 06:05] LABS: MANUAL DIFF FLAG NO
[2021-12-16 07:01] LABS: Basophils Absolute Auto 0.1 X10*3/uL (0.0-0.2); Basophils Percent Auto 1.5 % (0-2); Eosinophils Absolute Auto 0.1 X10*3/uL (0.0-0.4); Eosinophils Percent Auto 2.3 % (0-4); Hematocrit 40.2 % (42.0-52.0); Hemoglobin 13.5 g/dl (14.0-18.0); Imm Gran Abs Auto 0.03 X10*3/uL (0.00-0.03); Imm Gran Pct Auto 0.5 % (0.0-0.4); Lymphocytes Absolute Auto 1.1 X10*3/uL (1.2-4.9); Lymphocytes Percent Auto 18.8 % (20-40); Mean Corpuscular HGB Conc 33.6 g/dl (31.0-36.0); Mean Corpuscular Hemoglobin 32.8 pg (27.0-33.0); Mean Corpuscular Volume 97.8 fL (80.0-98.0); Mean Platelet Volume 9.4 fL (9.4-12.4); Monocytes Absolute Auto 0.8 X10*3/uL (0.1-1.2); Monocytes Percent Auto 12.7 % (2-11); Neutrophils Absolute Auto 3.9 x10*3/uL (2.0-8.3); Neutrophils Percent Auto 64.2 % (45-73); Platelet Count 138 X10*3/uL (160-400); Red Blood Count 4.11 X10*6/uL (4.60-5.80); Red Cell Distribution Width 14.2 % (11.0-16.0)
[2021-12-16 07:28] LABS: Alanine Aminotransferase 30 U/L (0-40); Albumin Level 3.6 g/dL (3.5-5.0); Alkaline Phosphatase 539 U/L (39-117); Anion Gap 14 (12-20); Aspartate Amino Transferase 88 U/L (5-37); Bilirubin Direct 2.7 mg/dL (0.0-0.5); Bilirubin Total 4.4 mg/dL (0.0-1.0); Blood Urea Nitrogen 4 mg/dL (9-16); Carbon Dioxide 27 mmol/L (22-29); Chloride 100 mmol/L (96-108); Estimated Glomerular Filt Rate > 60; Glucose Random 127 mg/dL (60-115); Potassium 4.4 mmol/L (3.3-5.1); Sodium 137 mmol/L (135-145); Total Protein 7.7 g/dL (6.5-8.0)
[2021-12-16 07:40] LABS: Erythrocyte Sedimentation Rate 28 MM/HR (0-15)
== END 2021-12-16 05:56 | disposition home or self-care (01) ==
LOC: HO.LAB 05:55
PROVIDERS: Nurse Practitioner; PCP Internal Medicine; Visit Provider Hospitalist
DX: J90 Pleural effusion, not elsewhere classified (principal)
CPT/HCPCS: 36415; 71046; 80048; 80076; 85025; 85652

== ENCOUNTER 2021-12-20 06:14 | Emergency (ER) | payer MEDICAID, SELFPAY ==
--- NOTE | ~2021-12-20 | XR_ITS ---
EXAMINATION: XR CHEST CLINICAL INFORMATION: Short of breath COMPARISON: 12/16/2021 TECHNIQUE: Frontal view of the chest was obtained. FINDINGS: Persistent moderate right pleural effusion with airspace opacity. The left lung is clear. No pneumothorax. The cardiomediastinal silhouette is within normal limits. XR/XR chest 1V IMPRESSION: No significant change in moderate right pleural effusion with airspace opacity.
--- NOTE | ~2021-12-20 | XR_ITS ---
EXAMINATION: XR CHEST CLINICAL INFORMATION: Post right thoracentesis COMPARISON: Previous chest x-ray from earlier the same day TECHNIQUE: Frontal view of the chest was obtained. FINDINGS: The cardiac and mediastinal contours are stable. There is a [id number] remaining right pleural effusion post right thoracentesis. There is atelectasis adjacent right lung base. The lungs are otherwise clear. There is no left pleural effusion. There is no pneumothorax. XR/XR chest 1V IMPRESSION: No pneumothorax post right thoracentesis.
--- NOTE | ~2021-12-20 | US_ITS ---
EXAMINATION: ULTRASOUND-GUIDED THORACENTESIS CLINICAL INFORMATION: Recurrent right pleural effusion COMPARISON: Previous chest x-ray from earlier the same day TECHNIQUE: Procedure and risks and benefits including bleeding, infection and pneumothorax were discussed with the patient and informed consent was obtained. The right back was prepped and draped in the usual sterile fashion. The skin and soft tissues were anesthetized with 1% lidocaine plain. Using ultrasound guidance and a 4 Algerian rapid centesis catheter, access to the pleural fluid was obtained. 1.8 L of clear eliseo-colored fluid was removed. No diagnostic specimen was sent. FINDINGS: There is a large right pleural effusion. US/US drain thoracentesis IMPRESSION: Ultrasound-guided right thoracentesis.
--- NOTE | 2021-12-20 06:24 | ECG_ITS ---
Test Reason : sob Blood Pressure : / mmHG Vent. Rate : 109 BPM Atrial Rate : 109 BPM P-R Int : 170 ms QRS Dur : 092 ms QT Int : 360 ms P-R-T Axes : 045 048 039 degrees QTc Int : 484 ms Sinus tachycardia Otherwise normal ECG When compared with ECG of 06-DEC-2021 10:06, No significant change was found Referred By: Generic ED Physician Electronically Signed By:YVONNE KERN
[2021-12-20 06:25] VITALS: BP 151/93; PULSE 115; RESP 20; TEMP 37; O2SAT 96; BMI 31.1
--- NOTE | 2021-12-20 06:45 | ED_ITS ---
HPI - SOB/Dyspnea General Chief Complaint: Dyspnea Stated Complaint: Possible liquid in lungs Time Seen by Provider: 12/20/21 06:39 Source: patient Mode of arrival: ambulatory Limitations: no limitations History of Present Illness HPI Narrative: 56 yo male with hx of ETOH cirrhosis, PV that has resolved, GIB, chronic R sided pleural effusion with recurrence reports that he feels increased shortness of breath due to fluid in his lungs. He is here requesting drainage. States he is having a hard time walking due to his breathing MD elicited complaint: shortness of breath Pertinent past history: other (recurrent pleural effusion) Onset (ago): day(s) (7) Context: other (hx of similar episodes) Timing: progressively worsening Severity: moderate Exacerbating factors: lying flat and exertion Relieving factors: nothing Known history of: other (pleural efffusion) Associated symptoms: orthopnea Treatment prior to arrival: none Related Data Home Medications Medication Instructions Recorded Confirmed bupropion HCl 300 mg 24 hr tablet, 300 mg PO DAILY 06/10/21 12/06/21 extended release cyanocobalamin (vitamin B-12) 1,000 mcg PO DAILY 06/10/21 12/06/21 1,000 mcg tablet folic acid 1 mg tablet 1 mg PO DAILY 06/10/21 12/06/21 thiamine HCl (vitamin B1) 100 mg 100 mg PO DAILY 06/10/21 12/06/21 tablet [id number] 1 cap PO TIDWM 08/10/21 12/06/21 24,000-76,000-120,000 unit capsule,delayed rel (Creon) omeprazole 40 mg capsule,delayed 1 cap PO DAILY 08/10/21 12/06/21 release paroxetine HCl 20 mg tablet 1 tab PO DAILY 08/10/21 12/06/21 furosemide 20 mg tablet 1 tab PO DAILY 10/18/21 12/06/21 meclizine 12.5 mg tablet 1 tab PO TID PRN Dizziness 12/06/21 12/06/21 Previous Rx's Medication Instructions Recorded imipramine HCl 50 mg tablet 50 mg PO BEDTIME #30 tabs 09/16/21 rifaximin 550 mg tablet (Xifaxan) 550 mg PO BID #60 tabs 09/16/21 spironolactone 50 mg tablet 50 mg PO DAILY 30 days #30 tabs 10/21/21 (Aldactone) nicotine (polacrilex) 2 mg gum 2 mg buccal Q2H #100 ea 11/03/21 sucralfate 100 mg/mL oral 10 ml PO BID 14 days #280 mL 11/24/21 suspension (Carafate) amoxicillin 875 mg-potassium 1 tab PO BID 7 days #14 tabs 12/08/21 clavulanate 125 mg tablet Allergies Allergy/AdvReac Type Severity Reaction Status Date / Time No Known Drug Allergies Allergy Mild NONE Verified 12/20/21 06:25 [NO KNOWN DRUG ALLERGIES] Review of Systems Review of Systems: Constitutional : No Fever, No Chills ENT/Mouth : No sore throat, No Rhinorrhea, No Swallowing Difficulty Eyes: No Eye Pain, No Swelling, No Redness Cardiovascular : No Chest Pain, positive SOB, pos Orthopnea, positive Edema Respiratory : No Cough, No Sputum, No Wheezing, positive dyspnea Gastrointestinal : No Nausea, No Vomiting, No Diarrhea, No abdominal Pain, No Hematochezia, No Melena Genitourinary : No Dysuria, No Urinary Frequency, No Hematuria Musculoskeletal : No joint pain, No Myalgias Skin : No Skin Lesions, No rash Neuro : No Weakness, No Numbness, No Dizziness, No Headache Psych : pos Anxiety/Panic, No Depression Heme/Lymph: No Bruising, No Lymphadenopathy Endocrine : No Polyuria, No Polydipsia All other systems reviewed and are negative [facility] Past Medical History Medical History Alcoholic cirrhosis Alcoholism Chronic abdominal pain Elevated LFTs Elevated liver enzymes Elevated liver function tests GERD (gastroesophageal reflux disease) Gout Liver mass, right lobe Panniculitis Surgical History H/O cervical spine surgery H/O colonoscopy H/O hemicolectomy Family History Family History Mother Cancer Social History Social History Household Members: Friend(s) Household Members Other:: roommate Housing: Apartment Do you presently have visiting nurse or other home services: No Alcohol intake: current Alcohol intake frequency: 3 or more drinks per day Alcohol type: hard liquor Patient Tobacco Use Status: Current someday Tobacco user Tobacco use type: Cigarette Cigarettes Per Day: 4 Second Hand Smoke Exposure: No Substance Use Type: Marijuana Substance Use Frequency: Occasionally Advance Directives: No service: No Current occupational status: unemployed Physical Exam Vital Signs: Vital Signs: Last Vital Signs Temp 98.3 F 12/20/21 11:26 Pulse 108 H 12/20/21 11:26 Resp 17 12/20/21 11:26 BP 142/94 H 12/20/21 11:26 Pulse Ox 95 12/20/21 11:35 O2 Del Method 12/20/21 11:35 BMI result Body Mass Index 31.1 Appearance: Alert. Oriented X3. No acute distress. Anxious Eyes: Pupils equal, round and reactive to light. ENT: Pharynx normal. Neck: Normal inspection. Neck supple. CVS: tachycardic heart rate and rhythm. Pulses normal. Respiratory: No respiratory distress. Breath sounds diminished R base Abdomen: Soft and nontender. Skin: Skin warm and dry. Normal skin color. Normal skin turgor. Extremities: pitting trace lower extremity edema. No calf ttp Neuro: Oriented X 3. No motor deficit. No sensory deficit. Slightly tremulous Course Course Course Narrative: 1.8L removed post procedure no PTX seen sats 95%, feels better wants to go home tonight will observe til 1 if no symptoms stable for DC doing fine post procedure feels much better stable for DC, chronic tachycardia MDM - SOB/Dyspnea MDM Narrative Medical decision making narrative: 56 yo male with hx of ETOH cirrhosis, PV that has resolved, GIB, chronic R sided pleural effusion with recurrent needs for drainage at this time comes in with c/o worsening FERMIN. At this time will obtain labs, EKG, CXR - suspect pleural effusion as cause of his symptoms - will ask IR for drainage today. Doubt PE or infection has had recurrence of this in past without infection and has had negative PE work up in the past. Dispo per results and findings. Lab Data Result diagrams: 12/20/21 06:48 12/20/21 06:48 Labs: Lab Results 12/20/21 12/20/21 12/20/21 Range/Units 06:48 06:48 06:48 WBC 6.8 (4.8-10.8) X10*3/uL RBC 4.22 L (4.60-5.80) X10*6/uL Hgb 13.9 L (14.0-18.0) g/dl Hct 41.1 L (42.0-52.0) % MCV 97.4 (80.0-98.0) fL MCH 32.9 (27.0-33.0) pg MCHC 33.8 (31.0-36.0) g/dl RDW 14.2 (11.0-16.0) % Plt Count 127 L (160-400) X10*3/uL MPV 8.9 L (9.4-12.4) fL Immature Gran % (Auto) 0.4 (0.0-0.4) % Neut % (Auto) 71.0 (45-73) % Lymph % (Auto) 13.7 L (20-40) % [place] % (Auto) 11.7 H (2-11) % Eos % (Auto) 2.0 (0-4) % Baso % (Auto) 1.2 (0-2) % Lymph # (Auto) 0.9 L (1.2-4.9) X10*3/uL [place] # (Auto) 0.8 (0.1-1.2) X10*3/uL Eos # (Auto) 0.1 (0.0-0.4) X10*3/uL Baso # (Auto) 0.1 (0.0-0.2) X10*3/uL Abs Immat Gran (auto) 0.03 (0.00-0.03) X10*3/uL Absolute Neuts (auto) 4.9 (2.0-8.3) x10*3/uL Absolute Nucleated RBC 0.000 (0.0-0.012) X10*3/uL Nucleated RBC % (auto) 0.0 (0.0-0.2) /100WBC PT (9.9-13.0) SEC INR (0.9-1.1) Sodium 137 (135-145) mmol/L Potassium 4.3 (3.3-5.1) mmol/L Chloride 102 (96-108) mmol/L Carbon Dioxide 25 (22-29) mmol/L Anion Gap 14 (12-20) BUN 4 L (9-16) mg/dL Creatinine 0.68 (0.5-1.4) mg/dL Estim Creat Clear Calc 177.7 Estimated GFR > 60 Random Glucose 135 H (60-115) mg/dL Calcium 9.0 (8.4-10.2) mg/dL Magnesium (1.6-2.6) mg/dL Total Bilirubin (0.0-1.0) mg/dL Direct Bilirubin (0.0-0.5) mg/dL AST (5-37) U/L ALT (0-40) U/L Alkaline Phosphatase (39-117) U/L Troponin I High Sens < 3.5 (<3.5-35.0) ng/L B-Natriuretic Peptide (<100) pg/mL Total Protein (6.5-8.0) g/dL Albumin (3.5-5.0) g/dL Ethyl Alcohol mg/dL COVID-19 ([facility]) (Negative) COVID-19 Clin Com 12/20/21 12/20/21 12/20/21 Range/Units 06:48 06:48 06:48 WBC (4.8-10.8) X10*3/uL RBC (4.60-5.80) X10*6/uL Hgb (14.0-18.0) g/dl Hct (42.0-52.0) % MCV (80.0-98.0) fL MCH (27.0-33.0) pg MCHC (31.0-36.0) g/dl RDW (11.0-16.0) % Plt Count (160-400) X10*3/uL MPV (9.4-12.4) fL Immature Gran % (Auto) (0.0-0.4) % Neut % (Auto) (45-73) % Lymph % (Auto) (20-40) % [place] % (Auto) (2-11) % Eos % (Auto) (0-4) % Baso % (Auto) (0-2) % Lymph # (Auto) (1.2-4.9) X10*3/uL [place] # (Auto) (0.1-1.2) X10*3/uL Eos # (Auto) (0.0-0.4) X10*3/uL Baso # (Auto) (0.0-0.2) X10*3/uL Abs Immat Gran (auto) (0.00-0.03) X10*3/uL Absolute Neuts (auto) (2.0-8.3) x10*3/uL Absolute Nucleated RBC (0.0-0.012) X10*3/uL Nucleated RBC % (auto) (0.0-0.2) /100WBC PT 13.8 H (9.9-13.0) SEC INR 1.2 H (0.9-1.1) Sodium (135-145) mmol/L Potassium (3.3-5.1) mmol/L Chloride (96-108) mmol/L Carbon Dioxide (22-29) mmol/L Anion Gap (12-20) BUN (9-16) mg/dL Creatinine (0.5-1.4) mg/dL Estim Creat Clear Calc Estimated GFR Random Glucose (60-115) mg/dL Calcium (8.4-10.2) mg/dL Magnesium 1.8 (1.6-2.6) mg/dL Total Bilirubin 5.4 H (0.0-1.0) mg/dL Direct Bilirubin 3.2 H (0.0-0.5) mg/dL AST 107 H (5-37) U/L ALT 31 (0-40) U/L Alkaline Phosphatase 546 H (39-117) U/L Troponin I High Sens (<3.5-35.0) ng/L B-Natriuretic Peptide 21 (<100) pg/mL Total Protein 7.8 (6.5-8.0) g/dL Albumin 3.6 (3.5-5.0) g/dL Ethyl Alcohol mg/dL COVID-19 ([facility]) (Negative) COVID-19 Clin Com 12/20/21 12/20/21 Range/Units 06:48 06:49 WBC (4.8-10.8) X10*3/uL RBC (4.60-5.80) X10*6/uL Hgb (14.0-18.0) g/dl Hct (42.0-52.0) % MCV (80.0-98.0) fL MCH (27.0-33.0) pg MCHC (31.0-36.0) g/dl RDW (11.0-16.0) % Plt Count (160-400) X10*3/uL MPV (9.4-12.4) fL Immature Gran % (Auto) (0.0-0.4) % Neut % (Auto) (45-73) % Lymph % (Auto) (20-40) % [place] % (Auto) (2-11) % Eos % (Auto) (0-4) % Baso % (Auto) (0-2) % Lymph # (Auto) (1.2-4.9) X10*3/uL [place] # (Auto) (0.1-1.2) X10*3/uL Eos # (Auto) (0.0-0.4) X10*3/uL Baso # (Auto) (0.0-0.2) X10*3/uL Abs Immat Gran (auto) (0.00-0.03) X10*3/uL Absolute Neuts (auto) (2.0-8.3) x10*3/uL Absolute Nucleated RBC (0.0-0.012) X10*3/uL Nucleated RBC % (auto) (0.0-0.2) /100WBC PT (9.9-13.0) SEC INR (0.9-1.1) Sodium (135-145) mmol/L Potassium (3.3-5.1) mmol/L Chloride (96-108) mmol/L Carbon Dioxide (22-29) mmol/L Anion Gap (12-20) BUN (9-16) mg/dL Creatinine (0.5-1.4) mg/dL Estim Creat Clear Calc Estimated GFR Random Glucose (60-115) mg/dL Calcium (8.4-10.2) mg/dL Magnesium (1.6-2.6) mg/dL Total Bilirubin (0.0-1.0) mg/dL Direct Bilirubin (0.0-0.5) mg/dL AST (5-37) U/L ALT (0-40) U/L Alkaline Phosphatase (39-117) U/L Troponin I High Sens (<3.5-35.0) ng/L B-Natriuretic Peptide (<100) pg/mL Total Protein (6.5-8.0) g/dL Albumin (3.5-5.0) g/dL Ethyl Alcohol < 10 mg/dL COVID-19 ([facility]) Negative (Negative) COVID-19 Clin Com See Note ECG Data Attestation: I personally reviewed and interpreted this ECG as follows: ECG interpretation date: 12/20/21 ECG interpretation time: 06:46 Interpretation: Rate: 109 Rhythm: sinus tachycardia [place]: normal Normal P waves. Normal REAGAN. Normal QRS complex. ST T wave : normal no BRANDT qTC: normal prior studies: no acute ischemia The study has been interpreted contemporaneously by me. Discharge Plan Discharge Clinical Impression: Pleural effusion Patient Disposition: Home, Self-Care Instructions: Pleural Effusion (ED), Thoracentesis (DC) Additional Instructions: return to ED for any worsening symptoms or concerns please follow up with your lung doctor if you have pain, worsening breathing call 911 and return immediately Prescriptions: No Action sucralfate [Carafate] 100 mg/mL suspension 10 ml PO BID 14 Days Qty: 280 0RF omeprazole 40 mg capsule,delayed release(DR/EC) 1 cap PO DAILY paroxetine HCl 20 mg tablet 1 tab PO DAILY Creon 24,000-76,000 -120,000 unit capsule,delayed release(DR/EC) 1 cap PO TIDWM Rx Instructions: administer with meals and/or snacks furosemide 20 mg tablet 1 tab PO DAILY spironolactone [Aldactone] 50 mg tablet 50 mg PO DAILY 30 Days Qty: 30 0RF nicotine (polacrilex) 2 mg gum 2 mg buccal Q2H Qty: 100 0RF meclizine 12.5 mg tablet 1 tab PO TID PRN (Reason: Dizziness) amoxicillin-pot clavulanate 875-125 mg tablet 1 tab PO BID 7 Days Qty: 14 0RF folic acid 1 mg tablet 1 mg PO DAILY bupropion HCl 300 mg tablet extended release 24 hr 300 mg PO DAILY thiamine HCl (vitamin B1) 100 mg tablet 100 mg PO DAILY cyanocobalamin (vitamin B-12) 1,000 mcg tablet 1,000 mcg PO DAILY imipramine HCl 50 mg tablet 50 mg PO BEDTIME Qty: 30 6RF Xifaxan 550 mg tablet 550 mg PO BID Qty: 60 6RF
[2021-12-20 06:55] LABS: MANUAL DIFF FLAG NO
[2021-12-20 06:59] LABS: Basophils Absolute Auto 0.1 X10*3/uL (0.0-0.2); Basophils Percent Auto 1.2 % (0-2); Eosinophils Absolute Auto 0.1 X10*3/uL (0.0-0.4); Hematocrit 41.1 % (42.0-52.0); Hemoglobin 13.9 g/dl (14.0-18.0); Imm Gran Abs Auto 0.03 X10*3/uL (0.00-0.03); Imm Gran Pct Auto 0.4 % (0.0-0.4); Lymphocytes Absolute Auto 0.9 X10*3/uL (1.2-4.9); Lymphocytes Percent Auto 13.7 % (20-40); Mean Corpuscular HGB Conc 33.8 g/dl (31.0-36.0); Mean Corpuscular Hemoglobin 32.9 pg (27.0-33.0); Mean Corpuscular Volume 97.4 fL (80.0-98.0); Mean Platelet Volume 8.9 fL (9.4-12.4); Monocytes Absolute Auto 0.8 X10*3/uL (0.1-1.2); Monocytes Percent Auto 11.7 % (2-11); Neutrophils Absolute Auto 4.9 x10*3/uL (2.0-8.3); Platelet Count 127 X10*3/uL (160-400); Red Blood Count 4.22 X10*6/uL (4.60-5.80); Red Cell Distribution Width 14.2 % (11.0-16.0); White Blood Count 6.8 X10*3/uL (4.8-10.8)
[2021-12-20 07:03] LABS: INTERNATIONAL NORM RATIO 1.2 (0.9-1.1); Prothrombin Time 13.8 SEC (9.9-13.0)
[2021-12-20 07:11] LABS: Ethanol < 10 mg/dL
[2021-12-20 07:15] LABS: COVID-19 Test Negative (Negative)
[2021-12-20 07:21] LABS: B Type Natriuretic Peptide 21 pg/mL (<100); Troponin-I High Sensitivity < 3.5 ng/L (<3.5-35.0)
[2021-12-20 07:30] LABS: Alanine Aminotransferase 31 U/L (0-40); Albumin Level 3.6 g/dL (3.5-5.0); Alkaline Phosphatase 546 U/L (39-117); Aspartate Amino Transferase 107 U/L (5-37); Bilirubin Direct 3.2 mg/dL (0.0-0.5); Bilirubin Total 5.4 mg/dL (0.0-1.0); Magnesium 1.8 mg/dL (1.6-2.6); Total Protein 7.8 g/dL (6.5-8.0)
[2021-12-20 07:31] LABS: Anion Gap 14 (12-20); Blood Urea Nitrogen 4 mg/dL (9-16); Carbon Dioxide 25 mmol/L (22-29); Chloride 102 mmol/L (96-108); Creatinine Clr Calc Pharmacy 177.7; Estimated Glomerular Filt Rate > 60; Glucose Random 135 mg/dL (60-115); Potassium 4.3 mmol/L (3.3-5.1); Sodium 137 mmol/L (135-145)
[2021-12-20] MEDS: Thiamine HCL 200 MG in 0.9 % Sodium Chloride 100 ML 204 MG IV (07:52)
[2021-12-20] MEDS: LORazepam 2 MG/ML VIAL IVPUSH (07:52)
--- NOTE | 2021-12-20 07:58 | PC.NURSE ---
Patient A/O X4 . pearrla. left lung diminished . right lung no airflow noted in lower lobe . patient unable to take deep breaths c/o of pain on inspiration on right side . IV placed on left hand . positive bowel sounds . poc to IR for thorententecies patient aware .
[2021-12-20 08:57] VITALS: BP 136/91; PULSE 112; RESP 14; O2SAT 94
--- NOTE | 2021-12-20 10:05 | PC.NURSE ---
RN to RN given to [facility] for patient to transfer to IR for thoracentesis . patient aware of plan of care . transporting off unit now via .
--- NOTE | 2021-12-20 10:46 | HO.RADPN ---
RADIOLOGY Narrative Narrative: Right thoracentesis using 4 fr catheter. 1.8 L eliseo colored clear fluid removed. No specimen sent. CXR pending.
[2021-12-20] MEDS: Lidocaine HCl 1 % MPF 5 ML VIAL SUBCUT (10:50)
--- NOTE | 2021-12-20 11:16 | PC.NURSE ---
patient returned from [facility] DANIA Glez provided report . patient 92-94 % room air . 1.8 l fluid drained from right lung . post scan preformed and post Xray preformed .. some fluid remained . dressing clean dry and intact . no crepitits noted . patient lung sound diminished on right lower lobe . patient aware of plan of care . vital signs . 141/ 92 HR 107 and BP 141/ 92 .
[2021-12-20 11:26] VITALS: BP 142/94; PULSE 108; RESP 17; TEMP 36.8; O2SAT 91
[2021-12-20 11:35] VITALS: O2SAT 95
[2021-12-20 12:48] VITALS: BP 142/92; PULSE 106; RESP 14; TEMP 36.7; O2SAT 93
== END 2021-12-20 13:01 | disposition home or self-care (01) ==
PROVIDERS: Radiology Diagnostic Radiology; Emergency Provider Emergency Medicine
DX: J90 Pleural effusion, not elsewhere classified (principal); F10.20 Alcohol dependence, uncomplicated; Y90.0 Blood alcohol level of less than 20 mg/100 ml; Z20.822 Contact with and (suspected) exposure to COVID-19
CPT/HCPCS: 32555; 32557; 36415; 71045; 80048; 80076; 82077; 83735; 83880; 84484; 85025; 85610; 87635; 93005; 96365; 96375; 99284; J2060; J3411

== ENCOUNTER → 2021-12-23 07:14 | Outpatient (BNVA) | payer MEDICAID, SELFPAY | PROVIDERS: PCP Internal Medicine; Referring Provider Internal Medicine; Visit Provider Nurse Practitioner | DX: K85.20 Alcohol induced acute pancreatitis without necrosis or infection (principal); K76.81 Hepatopulmonary syndrome; K72.90 Hepatic failure, unspecified without coma; I85.00 Esophageal varices without bleeding; K74.60 Unspecified cirrhosis of liver; J90 Pleural effusion, not elsewhere classified; K58.0 Irritable bowel syndrome with diarrhea; F10.230 Alcohol dependence with withdrawal, uncomplicated; Z79.899 Other long term (current) drug therapy | CPT/HCPCS: 99212 ==

== ENCOUNTER 2021-12-30 12:30 | Day surgery (SDC) | payer MEDICAID, SELFPAY ==
--- NOTE | ~2021-12-30 | XR_ITS ---
EXAMINATION: XR CHEST CLINICAL INFORMATION: Status post thoracentesis. COMPARISON: Chest 12/20/2021 TECHNIQUE: 2 views of the chest were obtained. FINDINGS: Inspiration and expiration views of the chest reveal persistent nonexpansion of right lower lobe likely secondary to adhesions. There is no pneumothorax seen. The left lung is expanded and clear. Heart size and progress clarities normal. XR/XR chest 2V IMPRESSION: No visible pneumothorax. The right lobe pleural effusion has been drained with right lower lobe opacification consistent non expanding lower lobe likely secondary to adhesions/trapped lung The left lung is expanded and clear.
--- NOTE | ~2021-12-30 | US_ITS ---
EXAMINATION: ULTRASOUND-GUIDED RIGHT THORACENTESIS CLINICAL INFORMATION: Large right pleural effusion. COMPARISON: None TECHNIQUE: Following explaining ultrasound-guided right thoracentesis procedure, benefits and risks, a written consent was obtained. Patient was placed sitting on an ultrasound stretcher with preliminary ultrasound imaging performed through the right posterior chest. An optimal site was selected and marked. The marked site was cleaned and draped in usual sterile manner. 1% lidocaine was administered at puncture site approximately along the medial infrascapular line. Through 3 small skin incisions a 5 Swiss PLDT catheter was advanced into the pleural space. After observing fluid return the stylet was removed and catheter connected to vacuum bottle via connecting cannula. After obtaining all fluid and observing no more fluid return, catheter was withdrawn and making sure no air leaked in. Complete hemostasis achieved at the puncture sites. Sterile dressing applied postprocedure. Chest x-ray on inspiration and expiration was obtained. FINDINGS: On preliminary ultrasound imaging there is a large right pleural effusion seen. Approximately 2.4 L of eliseo colored fluid was drained from the right pleural space. Minimal anterior chest pain was felt by the patient which was also felt several times previously pre-procedure and post thoracentesis. US/US thoracentesis IMPRESSION: Status post therapeutic right thoracentesis with approximately 2.4 L of eliseo-colored fluid drained. None of this fluid was sent to lab. Chest x-rays obtained subsequently reveal no pneumothorax. There is a trapped right lower lobe.
[2021-12-30 13:21] VITALS: BMI 29.7
--- NOTE | 2021-12-30 14:32 | PC.NURSE ---
jono LLAMAS RN updated regarding pt. pulse on admission and pt baseline pulses as noted in [facility]. Jono stated she will updated physician in IR.
[2021-12-30] MEDS: Lidocaine HCl 1 % MPF 5 ML VIAL SUBCUT (15:15)
[2021-12-30 15:52] VITALS: BP 130/81; PULSE 112; RESP 20; TEMP 36.9; O2SAT 94
[2021-12-30 16:07] VITALS: BP 138/88; PULSE 112; RESP 20; O2SAT 96
[2021-12-30 16:22] VITALS: BP 144/91; PULSE 111; RESP 20; O2SAT 95
[2021-12-30 16:37] VITALS: BP 156/84; PULSE 115; RESP 20; O2SAT 96
[2021-12-30 16:52] VITALS: BP 144/87; PULSE 109; RESP 20; O2SAT 96
== END 2021-12-30 17:14 | disposition home or self-care (01) ==
PROVIDERS: Visit Provider Radiology Diagnostic Radiology
DX: J90 Pleural effusion, not elsewhere classified (principal); J94.8 Other specified pleural conditions; J18.0 Bronchopneumonia, unspecified organism; K70.30 Alcoholic cirrhosis of liver without ascites; F10.20 Alcohol dependence, uncomplicated; G89.29 Other chronic pain; R10.9 Unspecified abdominal pain; R79.89 Other specified abnormal findings of blood chemistry; K21.9 Gastro-esophageal reflux disease without esophagitis; M10.9 Gout, unspecified; R53.83 Other fatigue; R20.0 Anesthesia of skin; R63.0 Anorexia; Z68.29 Body mass index [BMI] 29.0-29.9, adult; R11.0 Nausea; R06.02 Shortness of breath; R42 Dizziness and giddiness; R05.3 Chronic cough; Z79.899 Other long term (current) drug therapy; F17.210 Nicotine dependence, cigarettes, uncomplicated; F12.90 Cannabis use, unspecified, uncomplicated
CPT/HCPCS: 32555; 71046; 99202

== ENCOUNTER 2022-01-04 06:39 | Outpatient (REF) | payer MEDICAID, SELFPAY ==
[2022-01-04 08:13] LABS: Alanine Aminotransferase 36 U/L (0-40); Albumin Level 3.5 g/dL (3.5-5.0); Alkaline Phosphatase 594 U/L (39-117); Anion Gap 14 (12-20); Aspartate Amino Transferase 103 U/L (5-37); Blood Urea Nitrogen 4 mg/dL (9-16); Calcium 9.1 mg/dL (8.4-10.2); Carbon Dioxide 30 mmol/L (22-29); Chloride 99 mmol/L (96-108); Estimated Glomerular Filt Rate > 60; Glucose Random 127 mg/dL (60-115); Potassium 4.5 mmol/L (3.3-5.1); Sodium 138 mmol/L (135-145); Total Protein 7.7 g/dL (6.5-8.0)
== END 2022-01-04 06:40 | disposition home or self-care (01) ==
LOC: HO.LAB 06:39
PROVIDERS: PCP Internal Medicine; Visit Provider Nurse Practitioner
DX: K74.60 Unspecified cirrhosis of liver (principal); K72.90 Hepatic failure, unspecified without coma; R16.0 Hepatomegaly, not elsewhere classified
CPT/HCPCS: 36415; 80053; 84520

== ENCOUNTER → 2022-01-10 10:51 | Outpatient (BNVA) | payer MEDICAID, SELFPAY | PROVIDERS: PCP Internal Medicine; Visit Provider Hospitalist | DX: J90 Pleural effusion, not elsewhere classified (principal); J94.8 Other specified pleural conditions; K70.30 Alcoholic cirrhosis of liver without ascites; Z79.899 Other long term (current) drug therapy | CPT/HCPCS: 99212 ==

== ENCOUNTER 2022-01-16 05:53 | Outpatient (REF) | payer MEDICAID, SELFPAY ==
--- NOTE | ~2022-01-16 | XR_ITS ---
EXAMINATION: XR CHEST CLINICAL INFORMATION: J90 - Pleural effusion, not elsewhere classified COMPARISON: Chest radiograph 12/30/2021, ultrasound-guided thoracentesis 12/30/2021, chest radiograph 12/20/2021. TECHNIQUE: 2 views of the chest were obtained. FINDINGS: There is recurrent right effusion moderate size since thoracentesis 12/30/2021. Fluid level approximately level of right posterior ninth rib. There is passive atelectasis right base adjacent to the effusion as expected. The left lung is clear and shows no effusion. There is no airspace consolidation. The heart is normal in size. The vascularity is normal. The visualized hilar and mediastinal contours and bony structures are stable. XR/XR chest 2V IMPRESSION: -Recurrence right effusion since prior exam 12/30/2021. -Left lung clear.
== END 2022-01-16 05:54 | disposition home or self-care (01) ==
LOC: HO.XRAY 05:53
PROVIDERS: PCP Internal Medicine; Visit Provider Hospitalist
DX: J90 Pleural effusion, not elsewhere classified (principal)
CPT/HCPCS: 71046

== ENCOUNTER 2022-01-18 13:00 | Day surgery (SDC) | payer MEDICAID, SELFPAY ==
--- NOTE | ~2022-01-18 | US_ITS ---
EXAMINATION: ULTRASOUND-GUIDED RIGHT THORACENTESIS. CLINICAL INFORMATION: Recurrent pleural effusions. COMPARISON: Ultrasound-guided thoracentesis 12/30/2021. TECHNIQUE: Following explaining ultrasound-guided right thoracentesis procedure, benefits and risks, a written consent was obtained. Patient was placed sitting upright on ultrasound stretcher and preliminary ultrasound imaging was obtained through the right posterior chest. An optimal site was selected along the infrascapular line where there is maximum fluid seen. The site was marked on the skin with a marker. The marked site was cleaned and draped in the usual sterile manner. 1% lidocaine was injected at the puncture site. Through a small skin incision a 5 [place] Mixx catheter was advanced from the skin into the pleural space. After observing fluid return the stylet was removed and the catheter was connected to vacuum bottle via connecting cannula. After obtaining adequate amount of fluid and the patient experiencing little difficulty, the catheter was removed making sure no air leaked in. Sterile dressing was applied postprocedure. A chest x-ray was obtained postprocedure. FINDINGS: On preliminary ultrasound imaging there is moderate right pleural effusion. Approximately 1.5 L of eliseo-colored fluid was drained. There was intermittent hemorrhage visualized. US/US thoracentesis IMPRESSION: Successful ultrasound-guided therapeutic right thoracentesis.
--- NOTE | ~2022-01-18 | XR_ITS ---
EXAMINATION: XR CHEST CLINICAL INFORMATION: Post right thoracentesis COMPARISON: Chest 01/16/2022 TECHNIQUE: 2 views of the chest were obtained. FINDINGS: 2 views of right chest reveal no right hemithorax. The small residual pleural effusion with haziness in the right lower lobe. The left lung and the right upper lung is expanded and clear. Heart size and pulmonary vascularity is normal. No gross bony abnormality. XR/XR chest 2V IMPRESSION: Status post right thoracentesis there is no pneumothorax. There is small residual right pleural effusion with underlying atelectasis. Rest of the lungs are clear.
[2022-01-18 13:19] VITALS: BP 145/78; PULSE 102; RESP 19; TEMP 36.6; O2SAT 100; BMI 29.8
[2022-01-18] MEDS: Lidocaine HCl 1 % MPF 5 ML VIAL SUBCUT (16:02)
[2022-01-18 16:09] VITALS: BP 132/84; PULSE 100; RESP 22; TEMP 37.3; O2SAT 95
[2022-01-18 16:24] VITALS: BP 129/76; PULSE 102; RESP 20; O2SAT 95
[2022-01-18 16:39] VITALS: BP 135/87; PULSE 102; RESP 21; O2SAT 97
[2022-01-18 16:54] VITALS: BP 146/94; PULSE 103; RESP 22; O2SAT 98
[2022-01-18 17:13] VITALS: BP 158/95; PULSE 104; RESP 22; TEMP 37.2; O2SAT 97
== END 2022-01-18 17:35 | disposition home or self-care (01) ==
PROVIDERS: PCP Internal Medicine; Visit Provider Radiology Diagnostic Radiology
DX: J90 Pleural effusion, not elsewhere classified (principal); J94.8 Other specified pleural conditions; K70.30 Alcoholic cirrhosis of liver without ascites; F10.20 Alcohol dependence, uncomplicated; I85.00 Esophageal varices without bleeding; K21.9 Gastro-esophageal reflux disease without esophagitis; R79.89 Other specified abnormal findings of blood chemistry; R74.8 Abnormal levels of other serum enzymes; R16.0 Hepatomegaly, not elsewhere classified; M79.3 Panniculitis, unspecified; M10.9 Gout, unspecified; Z90.49 Acquired absence of other specified parts of digestive tract; F17.210 Nicotine dependence, cigarettes, uncomplicated; F12.90 Cannabis use, unspecified, uncomplicated; Z79.899 Other long term (current) drug therapy
CPT/HCPCS: 32555; 71046

== ENCOUNTER → 2022-01-26 08:29 | Outpatient (BNVA) | payer MEDICAID, SELFPAY | PROVIDERS: PCP Internal Medicine; Visit Provider Nurse Practitioner | DX: K76.81 Hepatopulmonary syndrome (principal); E72.20 Disorder of urea cycle metabolism, unspecified; K72.90 Hepatic failure, unspecified without coma; K74.60 Unspecified cirrhosis of liver; F10.20 Alcohol dependence, uncomplicated | CPT/HCPCS: 99212 ==

== ENCOUNTER 2022-01-27 08:16 | Outpatient (REF) | payer MEDICAID, SELFPAY ==
[2022-01-27 08:49] LABS: Ammonia 44 umol/L (13-55)
[2022-01-27 08:58] LABS: Alanine Aminotransferase 32 U/L (0-40); Albumin Level 3.4 g/dL (3.5-5.0); Alkaline Phosphatase 500 U/L (39-117); Anion Gap 15 (12-20); Aspartate Amino Transferase 91 U/L (5-37); Bilirubin Total 7.8 mg/dL (0.0-1.0); Blood Urea Nitrogen 7 mg/dL (9-16); Calcium 8.7 mg/dL (8.4-10.2); Carbon Dioxide 27 mmol/L (22-29); Chloride 96 mmol/L (96-108); Estimated Glomerular Filt Rate > 60; Glucose Random 135 mg/dL (60-115); Potassium 4.1 mmol/L (3.3-5.1); Sodium 134 mmol/L (135-145); Total Protein 7.7 g/dL (6.5-8.0)
== END 2022-01-27 08:17 | disposition home or self-care (01) ==
LOC: HO.LAB 08:16
PROVIDERS: PCP Internal Medicine; Visit Provider Nurse Practitioner
DX: E72.20 Disorder of urea cycle metabolism, unspecified (principal); F10.20 Alcohol dependence, uncomplicated; K76.81 Hepatopulmonary syndrome
CPT/HCPCS: 36415; 80053; 82140

== ENCOUNTER 2022-01-30 06:24 | Emergency (ER) | payer MEDICAID, SELFPAY ==
--- NOTE | ~2022-01-30 | US_ITS ---
EXAMINATION: ULTRASOUND-GUIDED THORACENTESIS CLINICAL INFORMATION: Right pleural effusion COMPARISON: None TECHNIQUE: The right posterior chest was prepped and draped in the usual sterile fashion. The skin and soft tissues were anesthetized with 1% lidocaine plain. Using ultrasound guidance and a 4 German rapid centesis catheter, access to the right pleural effusion was obtained. 1.6 L of clear dark eliseo-colored fluid was removed. No diagnostic specimen was sent. Postprocedure chest x-ray was ordered. FINDINGS: There is a large right pleural effusion. US/US thoracentesis IMPRESSION: Ultrasound-guided right thoracentesis.
--- NOTE | ~2022-01-30 | XR_ITS ---
EXAMINATION: XR CHEST CLINICAL INFORMATION: Postthoracentesis with removal of 1.6 L of fluid from the right chest COMPARISON: Prethoracentesis radiograph 01/30/2022 8:22 AM TECHNIQUE: Frontal view of the chest was obtained. FINDINGS: Since the prior study there's been significant decrease in the subpulmonic right pleural effusion with a small amount of fluid remaining no pneumothorax is seen. No left sided effusion is detected. XR/XR chest 1V IMPRESSION: No complications status post thoracentesis
--- NOTE | ~2022-01-30 | XR_ITS ---
EXAMINATION: XR CHEST CLINICAL INFORMATION: Shortness of breath, history of pleural effusions. COMPARISON: 01/18/2022 chest radiographs. TECHNIQUE: 2 views of the chest were obtained. FINDINGS: There is mild elevation of the hemidiaphragm with small to moderate right pleural effusion. The right upper lung field and left lung are clear. No pneumothorax. The mediastinal structures are unremarkable. XR/XR chest 2V IMPRESSION: Mild elevation of the right hemidiaphragm and small to moderate right pleural effusion appears similar if not minimally increased from the previous study.
[2022-01-30 06:30] VITALS: BP 142/86; PULSE 104; RESP 20; O2SAT 96; BMI 29.9
[2022-01-30 07:35] VITALS: BP 122/79; PULSE 109; RESP 18; TEMP 36.6; O2SAT 96
[2022-01-30 08:57] LABS: MANUAL DIFF FLAG NO
[2022-01-30 08:59] LABS: Basophils Absolute Auto 0.1 X10*3/uL (0.0-0.2); Basophils Percent Auto 1.4 % (0-2); Eosinophils Absolute Auto 0.2 X10*3/uL (0.0-0.4); Eosinophils Percent Auto 2.3 % (0-4); Hematocrit 40.9 % (42.0-52.0); Hemoglobin 13.8 g/dl (14.0-18.0); Imm Gran Abs Auto 0.05 X10*3/uL (0.00-0.03); Imm Gran Pct Auto 0.6 % (0.0-0.4); Lymphocytes Absolute Auto 1.2 X10*3/uL (1.2-4.9); Lymphocytes Percent Auto 14.7 % (20-40); Mean Corpuscular HGB Conc 33.7 g/dl (31.0-36.0); Mean Corpuscular Hemoglobin 33.3 pg (27.0-33.0); Mean Corpuscular Volume 98.6 fL (80.0-98.0); Monocytes Percent Auto 12.4 % (2-11); Neutrophils Absolute Auto 5.5 x10*3/uL (2.0-8.3); Neutrophils Percent Auto 68.6 % (45-73); Platelet Count 161 X10*3/uL (160-400); Red Blood Count 4.15 X10*6/uL (4.60-5.80); Red Cell Distribution Width 14.3 % (11.0-16.0)
[2022-01-30 09:12] LABS: COVID-19 Test Negative (Negative)
[2022-01-30 09:17] LABS: Alanine Aminotransferase 31 U/L (0-40); Albumin Level 3.5 g/dL (3.5-5.0); Alkaline Phosphatase 474 U/L (39-117); Anion Gap 17 (12-20); Aspartate Amino Transferase 80 U/L (5-37); Bilirubin Direct 6.2 mg/dL (0.0-0.5); Blood Urea Nitrogen 7 mg/dL (9-16); Carbon Dioxide 25 mmol/L (22-29); Chloride 98 mmol/L (96-108); Creatinine Clr Calc Pharmacy 166.8; Estimated Glomerular Filt Rate > 60; Glucose Random 134 mg/dL (60-115); Lipase 14 U/L (8-78); Potassium 4.6 mmol/L (3.3-5.1); Sodium 135 mmol/L (135-145); Total Protein 7.9 g/dL (6.5-8.0)
--- NOTE | 2022-01-30 14:39 | ED.SOB ---
HPI - SOB/Dyspnea General Chief Complaint: Dyspnea Stated Complaint: shortness of breath Time Seen by Provider: 01/30/22 14:30 Source: patient Mode of arrival: ambulatory Limitations: no limitations History of Present Illness HPI Narrative: This is a 56 years old with history of chronic liver disease, and history of recurrent pleural effusion presented to emergency room complaining of shortness of breath requesting a pleurocentesis, denies any fever, chills, cough. He states that he has not had any alcohol for about 5 weeks. MD elicited complaint: shortness of breath Onset (ago): day(s) (3) Timing: constant Severity: moderate Exacerbating factors: nothing Relieving factors: nothing Known history of: other (liver disease) Related Data Home Medications Medication Instructions Recorded Confirmed bupropion HCl 300 mg 24 hr tablet, 300 mg PO DAILY 06/10/21 12/30/21 extended release cyanocobalamin (vitamin B-12) 1,000 mcg PO DAILY 06/10/21 12/30/21 1,000 mcg tablet folic acid 1 mg tablet 1 mg PO DAILY 06/10/21 12/30/21 thiamine HCl (vitamin B1) 100 mg 100 mg PO DAILY 06/10/21 12/30/21 tablet xcsomn-bziplxmr-imheupy 1 cap PO TIDWM 08/10/21 12/30/21 24,000-76,000-120,000 unit capsule,delayed rel (Creon) omeprazole 40 mg capsule,delayed 1 cap PO DAILY 08/10/21 12/30/21 release paroxetine HCl 20 mg tablet 1 tab PO DAILY 08/10/21 12/30/21 meclizine 12.5 mg tablet 1 tab PO TID PRN Dizziness 12/06/21 12/30/21 albuterol sulfate 90 mcg/actuation 1 - 2 puff inhalation Q4-6H PRN 01/26/22 aerosol inhaler (ProAir HFA) furosemide 40 mg tablet 40 mg PO DAILY 01/26/22 hydroxyzine pamoate 25 mg capsule 25 - 50 mg PO DAILY 01/26/22 spironolactone 100 mg tablet 100 mg PO DAILY 01/26/22 Previous Rx's Medication Instructions Recorded imipramine HCl 50 mg tablet 50 mg PO BEDTIME #30 tabs 09/16/21 rifaximin 550 mg tablet (Xifaxan) 550 mg PO BID #60 tabs 09/16/21 nicotine (polacrilex) 2 mg gum 2 mg buccal Q2H #100 ea 11/03/21 Allergies Allergy/AdvReac Type Severity Reaction Status Date / Time No Known Drug Allergies Allergy Mild NONE Verified 01/30/22 06:33 [NO KNOWN DRUG ALLERGIES] Review of Systems Cardiovascular: Cardiovascular: Reports no additional cardiovascular complaints and Reports dyspnea Respiratory: Respiratory: Reports dyspnea and Denies wheezing Allergic/Immunologic: Allergic/Immunologic: Denies wheezing [facility] Past Medical History Medical History Alcoholic cirrhosis Alcoholism Chronic abdominal pain Cirrhosis Elevated LFTs Elevated liver enzymes Elevated liver function tests GERD (gastroesophageal reflux disease) Gout Liver mass, right lobe Panniculitis Surgical History H/O cervical spine surgery H/O colonoscopy H/O hemicolectomy Family History Family History Mother Cancer Social History Social History Household Members: Friend(s) Household Members Other:: roommate Housing: Apartment Do you presently have visiting nurse or other home services: No Alcohol intake: current Alcohol intake frequency: 3 or more drinks per day Alcohol type: hard liquor Patient Tobacco Use Status: Current someday Tobacco user Tobacco use type: Cigarette Cigarettes Per Day: 4 Second Hand Smoke Exposure: No Substance Use Type: Marijuana Advance Directives: No Advance Directives Information Provided: Yes service: No Current occupational status: unemployed Physical Exam Vital Signs: Vital Signs: Last Vital Signs Temp 97.9 F 01/30/22 07:35 Pulse 102 H 01/30/22 16:32 Resp 16 01/30/22 16:32 BP 145/85 H 01/30/22 16:32 Pulse Ox 95 01/30/22 16:32 O2 Del Method 01/30/22 16:32 BMI result Body Mass Index 29.9 Const: General: cooperative, comfortable, no acute distress, well developed and alert Nutritional Appearance: average body habitus Orientation/consciousness: patient oriented x3 Limitations: no limitations HEENT: Head: Yes normal to inspection General nose exam: Normal external nose present Face and sinus: Yes normal facial exam Mouth: Normal oral and palatal mucosa present Throat: Yes posterior oropharynx normal Neck: Neck: Yes normal visual inspection and Yes full ROM Chest: Chest palpation & inspection: normal inspection of the chest Resp: Auscultation: other (decrease breath sound right) Cardio: Jugular venous distension: no JVD Palpation: normal PMI Rate: regular rate Rhythm: regular rhythm GI: Inspection: Yes normal to inspection Palpation (GI): Soft to palpation, not firm, nontender and no guarding Skin: General skin exam: no rashes or lesions noted, elasticity normal and turgor normal Lesions: no lesions Rashes: no rashes Neuro: General: patient oriented x3 Course Course Course Narrative: His recurrent pleural effusion was evaluated negative malignant cells; 12/07/21 negative malignant cell,he was seen by thoracic surgery and no pleuX reccomended. I spoke with Dr Mitchell will do thoracentesis Today anticipate discharge after Thoracentesis Reevaluation(s) Reevaluation #1: IR here to take him for thoracentesis Reevaluation #2: Thoracentesis done ,CXR no complication will d/c home MDM - SOB/Dyspnea Lab Data Result diagrams: 01/30/22 08:53 01/30/22 08:53 Labs: Lab Results 01/30/22 01/30/22 01/30/22 Range/Units 08:53 08:53 08:53 WBC 8.0 (4.8-10.8) X10*3/uL RBC 4.15 L (4.60-5.80) X10*6/uL Hgb 13.8 L (14.0-18.0) g/dl Hct 40.9 L (42.0-52.0) % MCV 98.6 H (80.0-98.0) fL MCH 33.3 H (27.0-33.0) pg MCHC 33.7 (31.0-36.0) g/dl RDW 14.3 (11.0-16.0) % Plt Count 161 D (160-400) X10*3/uL MPV 9.0 L (9.4-12.4) fL Immature Gran % (Auto) 0.6 H (0.0-0.4) % Neut % (Auto) 68.6 (45-73) % Lymph % (Auto) 14.7 L (20-40) % [place] % (Auto) 12.4 H (2-11) % Eos % (Auto) 2.3 (0-4) % Baso % (Auto) 1.4 (0-2) % Lymph # (Auto) 1.2 (1.2-4.9) X10*3/uL [place] # (Auto) 1.0 (0.1-1.2) X10*3/uL Eos # (Auto) 0.2 (0.0-0.4) X10*3/uL Baso # (Auto) 0.1 (0.0-0.2) X10*3/uL Abs Immat Gran (auto) 0.05 H (0.00-0.03) X10*3/uL Absolute Neuts (auto) 5.5 (2.0-8.3) x10*3/uL Absolute Nucleated RBC 0.000 (0.0-0.012) X10*3/uL Nucleated RBC % (auto) 0.0 (0.0-0.2) /100WBC PT (10.0-13.1) SEC INR (0.9-1.1) APTT (26.0-36.4) SEC Sodium 135 (135-145) mmol/L Potassium 4.6 (3.3-5.1) mmol/L Chloride 98 (96-108) mmol/L Carbon Dioxide 25 (22-29) mmol/L Anion Gap 17 (12-20) BUN 7 L (9-16) mg/dL Creatinine 0.71 (0.5-1.4) mg/dL Estim Creat Clear Calc 166.8 Estimated GFR > 60 Random Glucose 134 H (60-115) mg/dL Calcium 9.0 (8.4-10.2) mg/dL Total Bilirubin 10.0 H (0.0-1.0) mg/dL Direct Bilirubin 6.2 H (0.0-0.5) mg/dL AST 80 H (5-37) U/L ALT 31 (0-40) U/L Alkaline Phosphatase 474 H (39-117) U/L Total Protein 7.9 (6.5-8.0) g/dL Albumin 3.5 (3.5-5.0) g/dL Lipase 14 (8-78) U/L COVID-19 ([facility]) Negative (Negative) COVID-19 Clin Com See Note 01/30/22 01/30/22 Range/Units 15:04 15:04 WBC (4.8-10.8) X10*3/uL RBC (4.60-5.80) X10*6/uL Hgb (14.0-18.0) g/dl Hct (42.0-52.0) % MCV (80.0-98.0) fL MCH (27.0-33.0) pg MCHC (31.0-36.0) g/dl RDW (11.0-16.0) % Plt Count (160-400) X10*3/uL MPV (9.4-12.4) fL Immature Gran % (Auto) (0.0-0.4) % Neut % (Auto) (45-73) % Lymph % (Auto) (20-40) % [place] % (Auto) (2-11) % Eos % (Auto) (0-4) % Baso % (Auto) (0-2) % Lymph # (Auto) (1.2-4.9) X10*3/uL [place] # (Auto) (0.1-1.2) X10*3/uL Eos # (Auto) (0.0-0.4) X10*3/uL Baso # (Auto) (0.0-0.2) X10*3/uL Abs Immat Gran (auto) (0.00-0.03) X10*3/uL Absolute Neuts (auto) (2.0-8.3) x10*3/uL Absolute Nucleated RBC (0.0-0.012) X10*3/uL Nucleated RBC % (auto) (0.0-0.2) /100WBC PT 15.0 H (10.0-13.1) SEC INR 1.3 H (0.9-1.1) APTT 30.1 (26.0-36.4) SEC Sodium (135-145) mmol/L Potassium (3.3-5.1) mmol/L Chloride (96-108) mmol/L Carbon Dioxide (22-29) mmol/L Anion Gap (12-20) BUN (9-16) mg/dL Creatinine (0.5-1.4) mg/dL Estim Creat Clear Calc Estimated GFR Random Glucose (60-115) mg/dL Calcium (8.4-10.2) mg/dL Total Bilirubin (0.0-1.0) mg/dL Direct Bilirubin (0.0-0.5) mg/dL AST (5-37) U/L ALT (0-40) U/L Alkaline Phosphatase (39-117) U/L Total Protein (6.5-8.0) g/dL Albumin (3.5-5.0) g/dL Lipase (8-78) U/L COVID-19 ([facility]) (Negative) COVID-19 Clin Com Discharge Plan Discharge Clinical Impression: Pleural effusion, Alcoholic liver disease, Pleural effusion on right Patient Disposition: Home, Self-Care Instructions: Thoracentesis (DC) Prescriptions: No Action omeprazole 40 mg capsule,delayed release(DR/EC) 1 cap PO DAILY paroxetine HCl 20 mg tablet 1 tab PO DAILY Creon 24,000-76,000 -120,000 unit capsule,delayed release(DR/EC) 1 cap PO TIDWM Rx Instructions: administer with meals and/or snacks nicotine (polacrilex) 2 mg gum 2 mg buccal Q2H Qty: 100 0RF meclizine 12.5 mg tablet 1 tab PO TID PRN (Reason: Dizziness) hydroxyzine pamoate 25 mg capsule 25 - 50 mg PO DAILY spironolactone 100 mg tablet 100 mg PO DAILY furosemide 40 mg tablet 40 mg PO DAILY albuterol sulfate [ProAir HFA] 90 mcg/actuation HFA aerosol inhaler 1 - 2 puff inhalation Q4-6H PRN folic acid 1 mg tablet 1 mg PO DAILY bupropion HCl 300 mg tablet extended release 24 hr 300 mg PO DAILY thiamine HCl (vitamin B1) 100 mg tablet 100 mg PO DAILY cyanocobalamin (vitamin B-12) 1,000 mcg tablet 1,000 mcg PO DAILY imipramine HCl 50 mg tablet 50 mg PO BEDTIME Qty: 30 6RF Xifaxan 550 mg tablet 550 mg PO BID Qty: 60 6RF Interventions: ED Discharge Assessment Last Done: 01/30/22 17:47 Discharge Date/Time: 01/30/22 17:47
[2022-01-30 15:19] LABS: INTERNATIONAL NORM RATIO 1.3 (0.9-1.1)
[2022-01-30 15:21] LABS: Partial Thromboplastin Time 30.1 SEC (26.0-36.4)
--- NOTE | 2022-01-30 16:17 | HO.RADPN ---
RADIOLOGY Narrative Narrative: Right thoracentesis using 4 fr catheter. 1.6 L dark clear eliseo fluid removed. No specimen sent. CXR pending.
[2022-01-30] MEDS: Lidocaine HCl 1 % MPF 5 ML VIAL 4 ML SUBCUT (16:25)
[2022-01-30 16:32] VITALS: BP 145/85; PULSE 102; RESP 16; O2SAT 95
--- NOTE | 2022-01-30 16:33 | PC.NURSE ---
Pt alert and oriented x4. Respirations even and unlabored. Paracentesis completed, 1.6L removed. Pt resting comfortably
== END 2022-01-30 17:47 | disposition home or self-care (01) ==
PROVIDERS: Radiology Diagnostic Radiology; Emergency Provider Emergency Medicine
DX: J90 Pleural effusion, not elsewhere classified (principal); K70.30 Alcoholic cirrhosis of liver without ascites; R06.02 Shortness of breath; F10.20 Alcohol dependence, uncomplicated; F17.210 Nicotine dependence, cigarettes, uncomplicated; F12.90 Cannabis use, unspecified, uncomplicated; Z20.822 Contact with and (suspected) exposure to COVID-19
CPT/HCPCS: 32555; 36415; 71045; 71046; 80048; 80076; 83690; 85025; 85610; 85730; 87635; 99283; 99285

== ENCOUNTER 2022-02-04 22:58 | Inpatient (IN) | payer MEDICAID, SELFPAY ==
--- NOTE | ~2022-02-04 | CT_ITS ---
EXAMINATION: CT ANGIOGRAM OF THE CHEST WITH AND WITHOUT CONTRAST (CT PULMONARY ANGIOGRAM FOR PE) CLINICAL INFORMATION: Reason for Exam R chest pain, tachycardic, elevated dimer COMPARISON: 12/06/2021 TECHNIQUE: Prior to contrast administration, noncontrast localization images were obtained. Subsequently, multidetector volumetric imaging was performed from the thoracic inlet to below the diaphragms following the administration of 71 mL Omnipaque 350 intravenous contrast. No contrast reaction reported Sagittal, coronal, and MIP oblique sagittal reformatted images were obtained on the CT workstation, uploaded to PACS, and reviewed. This CT examination was performed using dose optimization techniques as appropriate, variously including the following: *Automated exposure control *Adjustment of mA and/or kV according to patient size (this includes techniques or standardized protocols for targeted exams where dose is matched to indication/reason for exam; i.e. extremities or head) *Use of iterative reconstruction technique Total exam dose-length product 762 mGy-cm FINDINGS: QUALITY OF STUDY/CONTRAST BOLUS: Suboptimal. 2 attempts were made. PULMONARY ARTERIES: No central pulmonary embolism. No lobar pulmonary embolism. Segmental levels are not well evaluated. THORACIC AORTA: No aneurysm or dissection. LUNG: The central airways are patent. Small to moderate right-sided pleural effusion. Associated atelectasis. There is a small right pneumothorax. The left lung is clear. MEDIASTINUM: Normal heart size. No pericardial effusion. No hilar or mediastinal lymphadenopathy. No evidence of septal bowing or right heart strain. CHEST WALL/AXILLA: No axillary or internal mammary lymphadenopathy. OSSEOUS STRUCTURES: No acute or suspicious osseous abnormality. UPPER ABDOMEN: Small volume ascites noted. No reflux of contrast into the hepatic veins to suggest elevated right heart pressures. CT/CT angio chest PE protocol IMPRESSION: Suboptimal contrast opacification of the pulmonary arteries. No central or lobar pulmonary embolism. There is small to moderate right pleural effusion. Small right-sided pneumothorax is present. This critical result was discussed with Loretta gN MD by telephone at 02/05/2022 3:59 AM and it was ascertained that the content and urgency of the report was understood at the time of direct communication. VTE: indeterminate
--- NOTE | ~2022-02-04 | XR_ITS ---
EXAMINATION: XR CHEST CLINICAL INFORMATION: Right hydropneumothorax. COMPARISON: Most recent chest radiograph dated 02/06/2022. TECHNIQUE: Frontal view of the chest was obtained. FINDINGS: Small right-sided pneumothorax, unchanged. Right-sided pleural effusion and adjacent opacities, unchanged. No left-sided airspace opacity or effusion. Stable cardiac mediastinal silhouette. No acute osseous abnormality. XR/XR chest 1V IMPRESSION: Stable right-sided hydropneumothorax.
--- NOTE | ~2022-02-04 | XR_ITS ---
EXAMINATION: XR CHEST CLINICAL INFORMATION: Follow-up pneumothorax COMPARISON: Previous chest x-rays most recent from yesterday and chest CT from yesterday TECHNIQUE: Frontal view of the chest was obtained. FINDINGS: The cardiac and mediastinal contours are stable. There is a small right pneumothorax. This measures maximum 1 cm at the lung apex. This is unchanged. There is a moderate to large right pleural effusion. There is atelectasis or consolidation of the adjacent right lower lobe. The lungs are otherwise clear. There is no left pleural effusion or pneumothorax. Bony structures are unremarkable. XR/XR chest 1V IMPRESSION: No change in the right hydropneumothorax from yesterday's exam. Compressive atelectasis or consolidation of the right lower lobe adjacent to the effusion.
--- NOTE | ~2022-02-04 | XR_ITS ---
EXAMINATION: XR CHEST CLINICAL INFORMATION: Chest pain COMPARISON: 01/30/2022 TECHNIQUE: Frontal view of the chest was obtained. FINDINGS: The lungs are well expanded. There is no focal consolidation, edema, or effusion. No pneumothorax. The cardiomediastinal silhouette is within normal limits. No acute osseous abnormality. XR/XR chest 1V IMPRESSION: No acute pulmonary finding.
--- NOTE | ~2022-02-04 | CT_ITS ---
EXAMINATION: CT CHEST WITHOUT CONTRAST CLINICAL INFORMATION: Reevaluate pneumothorax and effusion. COMPARISON: Previous chest x-rays most recent from earlier the same day and chest CTA from earlier the same day TECHNIQUE: Multidetector volumetric CT imaging of the chest was done. Axial MIP volume rendering provided. Sagittal and coronal reformatted images were obtained. This CT examination was performed using dose optimization techniques as appropriate, variously including the following: *Automated exposure control *Adjustment of mA and/or kV according to patient size (this includes techniques or standardized protocols for targeted exams where dose is matched to indication/reason for exam; i.e. extremities or head) *Use of iterative reconstruction technique DLP: 427 mGy-cm FINDINGS: LUNGS: There is compressive atelectasis of the right lower lobe from the right pleural effusion. The lungs are otherwise clear. No endobronchial or endotracheal lesion. MEDIASTINUM: There are small mediastinal lymph nodes. No enlarged lymph nodes. Normal heart size. No pericardial effusion. Normal caliber thoracic aorta. PLEURA: There is a small right pneumothorax measuring maximum 1.2 cm in thickness adjacent to the right middle lobe. There is a large right pleural effusion. This is not appreciably changed from chest CTA from earlier the same day. There is a very small left pleural effusion. AXILLA: No lymphadenopathy. UPPER ABDOMEN: Cirrhotic changes of the liver. Small amount of ascites. Upper abdominal varices. OSSEOUS STRUCTURES: There are degenerative changes of the spine. CT/CT chest wo con IMPRESSION: Stable right hydropneumothorax with small pneumothorax and large right pleural effusion from chest CTA from earlier the same day. Compressive atelectasis of the right lower lobe.. Fleischner guidelines were followed.
--- NOTE | ~2022-02-04 | XR_ITS ---
EXAMINATION: XR CHEST CLINICAL INFORMATION: Follow up pneumothorax COMPARISON: Earlier same date TECHNIQUE: Frontal view of the chest was obtained. FINDINGS: Decreased small right apical pneumothorax now measuring 2.2 cm apex of the right hemithorax, previously 3.5 cm. Small right pleural effusion and accompanying atelectasis. Left lung and pleural space are clear. Normal heart size and pulmonary vascularity. No acute osseous abnormalities. XR/XR chest 1V IMPRESSION: Decreased small right apical pneumothorax. Small right pleural effusion with accompanying atelectasis.
--- NOTE | ~2022-02-04 | XR_ITS ---
EXAMINATION: XR CHEST CLINICAL INFORMATION: Follow up pneumothorax. COMPARISON: CT of the chest done on 02/05/2022. TECHNIQUE: Frontal view of the chest was obtained. FINDINGS: There is a 3.5 cm maximum craniocaudal dimension small volume right-sided pneumothorax present. Asymmetric low lung volume is noted within the right hemithorax with subtle opacification of the right lung base likely represent changes secondary to previously documented right-sided pleural effusion. Left lung is clear. The cardiac mediastinal silhouette is within normal limit. XR/XR chest 1V IMPRESSION: Small volume right apical pneumothorax, and small to moderate size right-sided pleural effusion resulting in asymmetric right hemithoracic low lung volume.
--- NOTE | 2022-02-04 23:03 | ECG_ITS ---
Test Reason : CHEST PAIN Blood Pressure : / mmHG Vent. Rate : 112 BPM Atrial Rate : 112 BPM P-R Int : 158 ms QRS Dur : 090 ms QT Int : 366 ms P-R-T Axes : 046 051 063 degrees QTc Int : 499 ms Sinus tachycardia Otherwise normal ECG When compared with ECG of 20-DEC-2021 06:29, No significant change was found Referred By: Loretta Ng Electronically Signed By:YVONNE KERN
--- NOTE | 2022-02-04 23:19 | ECG_ITS ---
Test Reason : CP Blood Pressure : / mmHG Vent. Rate : 105 BPM Atrial Rate : 105 BPM P-R Int : 176 ms QRS Dur : 092 ms QT Int : 384 ms P-R-T Axes : 053 050 052 degrees QTc Int : 507 ms Sinus tachycardia Otherwise normal ECG When compared with ECG of 04-FEB-2022 23:43, No significant change was found Referred By: Loretta Ng Electronically Signed By:YVONNE KERN
--- NOTE | 2022-02-04 23:22 | ED.GENADULT ---
HPI - General Adult General Chief complaint: Chest Pain Stated complaint: CHEST PAIN Time Seen by Provider: 02/04/22 23:04 Source: patient and EMS Mode of arrival: EMS Limitations: no limitations History of Present Illness HPI narrative: Patient comes to the emergency room complaining of a sharp right-sided chest pain that radiates towards his back. Patient complaining also of mild shortness of breath. Patient states that he has frequent thoracentesis done for alcoholic cirrhosis. Last 1 was 5 days ago on the right side. Patient states that the discomfort on the right side of the chest is different than what he has fluid buildup in his lung. Patient denies left-sided chest pain or substernal pressure. No abdominal pain. Related Data Home Medications Medication Instructions Recorded Confirmed bupropion HCl 300 mg 24 hr tablet, 300 mg PO DAILY 06/10/21 12/30/21 extended release cyanocobalamin (vitamin B-12) 1,000 mcg PO DAILY 06/10/21 12/30/21 1,000 mcg tablet folic acid 1 mg tablet 1 mg PO DAILY 06/10/21 12/30/21 thiamine HCl (vitamin B1) 100 mg 100 mg PO DAILY 06/10/21 12/30/21 tablet [id number] 1 cap PO TIDWM 08/10/21 12/30/21 24,000-76,000-120,000 unit capsule,delayed rel (Creon) omeprazole 40 mg capsule,delayed 1 cap PO DAILY 08/10/21 12/30/21 release paroxetine HCl 20 mg tablet 1 tab PO DAILY 08/10/21 12/30/21 meclizine 12.5 mg tablet 1 tab PO TID PRN Dizziness 12/06/21 12/30/21 albuterol sulfate 90 mcg/actuation 1 - 2 puff inhalation Q4-6H PRN 01/26/22 aerosol inhaler (ProAir HFA) furosemide 40 mg tablet 40 mg PO DAILY 01/26/22 hydroxyzine pamoate 25 mg capsule 25 - 50 mg PO DAILY 01/26/22 spironolactone 100 mg tablet 100 mg PO DAILY 01/26/22 Previous Rx's Medication Instructions Recorded imipramine HCl 50 mg tablet 50 mg PO BEDTIME #30 tabs 09/16/21 rifaximin 550 mg tablet (Xifaxan) 550 mg PO BID #60 tabs 09/16/21 nicotine (polacrilex) 2 mg gum 2 mg buccal Q2H #100 ea 11/03/21 Allergies Allergy/AdvReac Type Severity Reaction Status Date / Time No Known Drug Allergies Allergy Mild NONE Verified 01/30/22 06:33 [NO KNOWN DRUG ALLERGIES] Review of Systems Review of Systems: Constitutional : No Weight loss, No Fever, No Chills, No Night Sweats, No Fatigue, No Malaise ENT/Mouth : No Hearing loss, No Ear Pain, No Nasal Congestion, No Sinus Pain, No Hoarseness, No sore throat, No Rhinorrhea, No Swallowing Difficulty Eyes: No Eye Pain, No Swelling, No Redness, No Foreign Body, No Discharge, No Vision Changes Cardiovascular : Complaining of right-sided chest pain, no shortness of breath, No Orthopnea, No Edema, No Palpitations Respiratory : No Cough, No Sputum, No Wheezing, No Smoke Exposure, No Dyspnea Gastrointestinal : No Nausea, No Vomiting, No Diarrhea, No Constipation, No abdominal Pain, No Hematochezia, No Melena Genitourinary : no irregular bleeding, No Dysuria, No Urinary Frequency, No Hematuria, No Urinary Incontinence, No Urgency, No Flank Pain, No Urinary Flow Changes, No Hesitancy Musculoskeletal : No joint pain, No Myalgias, No Joint Swelling Skin : No Skin Lesions, No rash Neuro : No Weakness, No Numbness, No Paresthesias, No Loss of Consciousness, No Dizziness, No Headache Psych : No Anxiety/Panic, No Depression, No SI/HI/AH/VH, No Social Issues, Heme/Lymph: No Bruising, No Bleeding,No Lymphadenopathy Endocrine : No Polyuria, No Polydipsia, No Temperature Intolerance [facility] Past Medical History Medical History Alcoholic cirrhosis Alcoholism Chronic abdominal pain Cirrhosis Elevated LFTs Elevated liver enzymes Elevated liver function tests GERD (gastroesophageal reflux disease) Gout Liver mass, right lobe Panniculitis Surgical History H/O cervical spine surgery H/O colonoscopy H/O hemicolectomy Family History Family History Mother Cancer Social History Social History Household Members: Friend(s) Household Members Other:: roommate Housing: Apartment Do you presently have visiting nurse or other home services: No Alcohol intake: current Alcohol intake frequency: 3 or more drinks per day Alcohol type: hard liquor Patient Tobacco Use Status: Current someday Tobacco user Tobacco use type: Cigarette Cigarettes Per Day: 4 Second Hand Smoke Exposure: No Substance Use Type: Marijuana Advance Directives: No Advance Directives Information Provided: Yes service: No Current occupational status: unemployed Physical Exam ED Vital Signs: Vital Signs - 24 hr 02/05/22 00:47 02/05/22 03:39 Pulse Rate 108 H 110 H Respiratory Rate 17 16 Blood Pressure 157/93 H 142/96 H Pulse Oximetry 98 96 Oxygen Delivery Method Room Air Room Air BMI result Body Mass Index 28.7 Const Other: Appearance: Alert. Oriented X3. No acute distress. Eyes: Pupils equal, round and reactive to light. , icteric sclera ENT: Pharynx normal. Neck: Normal inspection. Neck supple. No lymph nodes noted. No crepitus CVS: Normal heart rate and rhythm. Pulses normal. Normal S1 and S2 Respiratory: No respiratory distress. Breath sounds normal. No Wheezing. No rales Abdomen: Soft and nontender. No rigidity. No distention. Skin: Skin warm and dry. Diffuse jaundice Extremities: No lower extremity edema. No Lacerations. No Rash Neuro: Oriented X 3. No motor deficit. No sensory deficit. Moving all extremities. No slurred speech. CN 2 through 12 grossly intact Psych: calm, cooperative, normal affect Course Course Course Narrative: Patient's oxygen saturation is 96% on room air. All patient's labs and imaging pending. EKG, troponin within normal limits. D-dimer is elevated. We will go ahead and do a CT scan, patient is slightly tachycardic as well. LFTs are elevated at baseline, actually improved from previous visit On CT scan findings, patient has a small pleural effusion. And also, patient has a small pneumothorax, likely secondary to the thoracentesis done a few days ago. That is probably what is causing the patient's right-sided chest pain. I discussed with the patient that his CT scan was suboptimal, no obvious blood clots/PEs were visualized. The plan for now is to repeat a chest x-ray in 6 hours to make sure that the pneumothorax is not getting any worse. Patient is tachycardic, heart rate 110, patient is not febrile. Patient states and is adamant that he has not had any alcohol or is withdrawing. Patient will be receiving IV fluids. Patient states that he feels comfortable after he received a dose of morphine for the pain Physician observation started at 04:00, chest x-ray will be scheduled for 10:00. If there is no change in the pneumothorax, patient likely to be discharged. Medical Decision Making Lab Data Result diagrams: 02/05/22 00:16 02/05/22 00:16 Labs: Lab Results 02/05/22 02/05/22 02/05/22 Range/Units 00:16 00:16 00:16 WBC 8.6 (4.8-10.8) X10*3/uL RBC 3.89 L (4.60-5.80) X10*6/uL Hgb 13.1 L (14.0-18.0) g/dl Hct 37.3 L (42.0-52.0) % MCV 95.9 (80.0-98.0) fL MCH 33.7 H (27.0-33.0) pg MCHC 35.1 (31.0-36.0) g/dl RDW 14.0 (11.0-16.0) % Plt Count 157 L (160-400) X10*3/uL MPV 9.1 L (9.4-12.4) fL Immature Gran % (Auto) 0.7 H (0.0-0.4) % Neut % (Auto) 66.9 (45-73) % Lymph % (Auto) 15.1 L (20-40) % Nobles % (Auto) 14.1 H (2-11) % Eos % (Auto) 2.2 (0-4) % Baso % (Auto) 1.0 (0-2) % Lymph # (Auto) 1.3 (1.2-4.9) X10*3/uL Nobles # (Auto) 1.2 (0.1-1.2) X10*3/uL Eos # (Auto) 0.2 (0.0-0.4) X10*3/uL Baso # (Auto) 0.1 (0.0-0.2) X10*3/uL Abs Immat Gran (auto) 0.06 H (0.00-0.03) X10*3/uL Absolute Neuts (auto) 5.8 (2.0-8.3) x10*3/uL Absolute Nucleated RBC 0.020 H (0.0-0.012) X10*3/uL Nucleated RBC % (auto) 0.2 (0.0-0.2) /100WBC PT (10.0-13.1) SEC INR (0.9-1.1) D-Dimer High Sensitivty NG/ML Sodium 134 L (135-145) mmol/L Potassium 3.9 (3.3-5.1) mmol/L Chloride 97 (96-108) mmol/L Carbon Dioxide 23 (22-29) mmol/L Anion Gap 18 (12-20) BUN 8 L (9-16) mg/dL Creatinine 0.71 (0.5-1.4) mg/dL Estim Creat Clear Calc 134.7 Estimated GFR > 60 Random Glucose 102 (60-115) mg/dL Calcium 8.7 (8.4-10.2) mg/dL Magnesium (1.6-2.6) mg/dL Total Bilirubin (0.0-1.0) mg/dL Direct Bilirubin (0.0-0.5) mg/dL AST (5-37) U/L ALT (0-40) U/L Alkaline Phosphatase (39-117) U/L Troponin I High Sens 3.7 (<3.5-35.0) ng/L Total Protein (6.5-8.0) g/dL Albumin (3.5-5.0) g/dL Lipase (8-78) U/L Ethyl Alcohol mg/dL COVID-19 ([facility]) (Negative) COVID-19 Clin Com 02/05/22 02/05/22 02/05/22 Range/Units 00:16 00:16 00:16 WBC (4.8-10.8) X10*3/uL RBC (4.60-5.80) X10*6/uL Hgb (14.0-18.0) g/dl Hct (42.0-52.0) % MCV (80.0-98.0) fL MCH (27.0-33.0) pg MCHC (31.0-36.0) g/dl RDW (11.0-16.0) % Plt Count (160-400) X10*3/uL MPV (9.4-12.4) fL Immature Gran % (Auto) (0.0-0.4) % Neut % (Auto) (45-73) % Lymph % (Auto) (20-40) % Nobles % (Auto) (2-11) % Eos % (Auto) (0-4) % Baso % (Auto) (0-2) % Lymph # (Auto) (1.2-4.9) X10*3/uL Nobles # (Auto) (0.1-1.2) X10*3/uL Eos # (Auto) (0.0-0.4) X10*3/uL Baso # (Auto) (0.0-0.2) X10*3/uL Abs Immat Gran (auto) (0.00-0.03) X10*3/uL Absolute Neuts (auto) (2.0-8.3) x10*3/uL Absolute Nucleated RBC (0.0-0.012) X10*3/uL Nucleated RBC % (auto) (0.0-0.2) /100WBC PT 16.5 H (10.0-13.1) SEC INR 1.4 H (0.9-1.1) D-Dimer High Sensitivty 1701 NG/ML Sodium (135-145) mmol/L Potassium (3.3-5.1) mmol/L Chloride (96-108) mmol/L Carbon Dioxide (22-29) mmol/L Anion Gap (12-20) BUN (9-16) mg/dL Creatinine (0.5-1.4) mg/dL Estim Creat Clear Calc Estimated GFR Random Glucose (60-115) mg/dL Calcium (8.4-10.2) mg/dL Magnesium 1.6 (1.6-2.6) mg/dL Total Bilirubin 7.2 H (0.0-1.0) mg/dL Direct Bilirubin 5.1 H (0.0-0.5) mg/dL AST 84 H (5-37) U/L ALT 30 (0-40) U/L Alkaline Phosphatase 459 H (39-117) U/L Troponin I High Sens (<3.5-35.0) ng/L Total Protein 7.2 (6.5-8.0) g/dL Albumin 3.3 L (3.5-5.0) g/dL Lipase 74 (8-78) U/L Ethyl Alcohol mg/dL COVID-19 ([facility]) Negative (Negative) COVID-19 Clin Com See Note 02/05/22 Range/Units 00:16 WBC (4.8-10.8) X10*3/uL RBC (4.60-5.80) X10*6/uL Hgb (14.0-18.0) g/dl Hct (42.0-52.0) % MCV (80.0-98.0) fL MCH (27.0-33.0) pg MCHC (31.0-36.0) g/dl RDW (11.0-16.0) % Plt Count (160-400) X10*3/uL MPV (9.4-12.4) fL Immature Gran % (Auto) (0.0-0.4) % Neut % (Auto) (45-73) % Lymph % (Auto) (20-40) % Nobles % (Auto) (2-11) % Eos % (Auto) (0-4) % Baso % (Auto) (0-2) % Lymph # (Auto) (1.2-4.9) X10*3/uL Nobles # (Auto) (0.1-1.2) X10*3/uL Eos # (Auto) (0.0-0.4) X10*3/uL Baso # (Auto) (0.0-0.2) X10*3/uL Abs Immat Gran (auto) (0.00-0.03) X10*3/uL Absolute Neuts (auto) (2.0-8.3) x10*3/uL Absolute Nucleated RBC (0.0-0.012) X10*3/uL Nucleated RBC % (auto) (0.0-0.2) /100WBC PT (10.0-13.1) SEC INR (0.9-1.1) D-Dimer High Sensitivty NG/ML Sodium (135-145) mmol/L Potassium (3.3-5.1) mmol/L Chloride (96-108) mmol/L Carbon Dioxide (22-29) mmol/L Anion Gap (12-20) BUN (9-16) mg/dL Creatinine (0.5-1.4) mg/dL Estim Creat Clear Calc Estimated GFR Random Glucose (60-115) mg/dL Calcium (8.4-10.2) mg/dL Magnesium (1.6-2.6) mg/dL Total Bilirubin (0.0-1.0) mg/dL Direct Bilirubin (0.0-0.5) mg/dL AST (5-37) U/L ALT (0-40) U/L Alkaline Phosphatase (39-117) U/L Troponin I High Sens (<3.5-35.0) ng/L Total Protein (6.5-8.0) g/dL Albumin (3.5-5.0) g/dL Lipase (8-78) U/L Ethyl Alcohol < 10 mg/dL COVID-19 ([facility]) (Negative) COVID-19 Clin Com Imaging Data CT scan - chest: Radiologist's impression: FINDINGS: QUALITY OF STUDY/CONTRAST BOLUS: Suboptimal. 2 attempts were made. PULMONARY ARTERIES: No central pulmonary embolism. No lobar pulmonary embolism. Segmental levels are not well evaluated.? THORACIC AORTA: No aneurysm or dissection. LUNG: The central airways are patent. Small to moderate right-sided pleural effusion. Associated atelectasis. There is a small right pneumothorax. The left lung is clear. MEDIASTINUM: Normal heart size.? No pericardial effusion.? No hilar or mediastinal lymphadenopathy.? No evidence of septal bowing or right heart strain. CHEST WALL/AXILLA: No axillary or internal mammary lymphadenopathy. OSSEOUS STRUCTURES: No acute or suspicious osseous abnormality.? UPPER ABDOMEN: Small volume ascites noted.? No reflux of contrast into the hepatic veins to suggest elevated right heart pressures. CT/CT angio chest PE protocol IMPRESSION: Suboptimal contrast opacification of the pulmonary arteries. No central or lobar pulmonary embolism. ? There is small to moderate right pleural effusion. Small right-sided pneumothorax is present. ? Discharge Plan Discharge Clinical Impression: Pneumothorax Patient Disposition: Still a Patient Prescriptions: No Action omeprazole 40 mg capsule,delayed release(DR/EC) 1 cap PO DAILY paroxetine HCl 20 mg tablet 1 tab PO DAILY Creon 24,000-76,000 -120,000 unit capsule,delayed release(DR/EC) 1 cap PO TIDWM Rx Instructions: administer with meals and/or snacks nicotine (polacrilex) 2 mg gum 2 mg buccal Q2H Qty: 100 0RF meclizine 12.5 mg tablet 1 tab PO TID PRN (Reason: Dizziness) hydroxyzine pamoate 25 mg capsule 25 - 50 mg PO DAILY spironolactone 100 mg tablet 100 mg PO DAILY furosemide 40 mg tablet 40 mg PO DAILY albuterol sulfate [ProAir HFA] 90 mcg/actuation HFA aerosol inhaler 1 - 2 puff inhalation Q4-6H PRN folic acid 1 mg tablet 1 mg PO DAILY bupropion HCl 300 mg tablet extended release 24 hr 300 mg PO DAILY thiamine HCl (vitamin B1) 100 mg tablet 100 mg PO DAILY cyanocobalamin (vitamin B-12) 1,000 mcg tablet 1,000 mcg PO DAILY imipramine HCl 50 mg tablet 50 mg PO BEDTIME Qty: 30 6RF Xifaxan 550 mg tablet 550 mg PO BID Qty: 60 6RF
[2022-02-04 23:23] VITALS: BP 185/80; PULSE 125; O2SAT 96; BMI 28.7
[2022-02-05] VITALS (9 sets, daily range): BP systolic 138–157; BP diastolic 86–105; PULSE 100–113; RESP 16–24; TEMP 37.2; O2SAT 93–100
[2022-02-05 00:29] LABS: MANUAL DIFF FLAG NO
[2022-02-05 00:31] LABS: Basophils Absolute Auto 0.1 X10*3/uL (0.0-0.2); Eosinophils Absolute Auto 0.2 X10*3/uL (0.0-0.4); Eosinophils Percent Auto 2.2 % (0-4); Hematocrit 37.3 % (42.0-52.0); Hemoglobin 13.1 g/dl (14.0-18.0); Imm Gran Abs Auto 0.06 X10*3/uL (0.00-0.03); Imm Gran Pct Auto 0.7 % (0.0-0.4); Lymphocytes Absolute Auto 1.3 X10*3/uL (1.2-4.9); Lymphocytes Percent Auto 15.1 % (20-40); Mean Corpuscular HGB Conc 35.1 g/dl (31.0-36.0); Mean Corpuscular Hemoglobin 33.7 pg (27.0-33.0); Mean Corpuscular Volume 95.9 fL (80.0-98.0); Mean Platelet Volume 9.1 fL (9.4-12.4); Monocytes Absolute Auto 1.2 X10*3/uL (0.1-1.2); Monocytes Percent Auto 14.1 % (2-11); NRBC Pct Auto 0.2 /100WBC (0.0-0.2); Neutrophils Absolute Auto 5.8 x10*3/uL (2.0-8.3); Neutrophils Percent Auto 66.9 % (45-73); Platelet Count 157 X10*3/uL (160-400); Red Blood Count 3.89 X10*6/uL (4.60-5.80); White Blood Count 8.6 X10*3/uL (4.8-10.8)
[2022-02-05 00:37] LABS: INTERNATIONAL NORM RATIO 1.4 (0.9-1.1); Prothrombin Time 16.5 SEC (10.0-13.1)
[2022-02-05 00:41] LABS: COVID-19 Test Negative (Negative)
[2022-02-05] MEDS: oxyCODONE HCl Immed Release 5 MG TABLET PO (00:44)
[2022-02-05 00:46] LABS: Ethanol < 10 mg/dL
[2022-02-05 00:47] LABS: Anion Gap 18 (12-20); Blood Urea Nitrogen 8 mg/dL (9-16); Calcium 8.7 mg/dL (8.4-10.2); Carbon Dioxide 23 mmol/L (22-29); Chloride 97 mmol/L (96-108); Creatinine Clr Calc Pharmacy 134.7; Estimated Glomerular Filt Rate > 60; Glucose Random 102 mg/dL (60-115); Potassium 3.9 mmol/L (3.3-5.1); Sodium 134 mmol/L (135-145)
[2022-02-05 00:49] LABS: Alanine Aminotransferase 30 U/L (0-40); Albumin Level 3.3 g/dL (3.5-5.0); Alkaline Phosphatase 459 U/L (39-117); Aspartate Amino Transferase 84 U/L (5-37); Bilirubin Direct 5.1 mg/dL (0.0-0.5); Bilirubin Total 7.2 mg/dL (0.0-1.0); Lipase 74 U/L (8-78); Magnesium 1.6 mg/dL (1.6-2.6); Total Protein 7.2 g/dL (6.5-8.0)
[2022-02-05 00:54] LABS: Troponin-I High Sensitivity 3.7 ng/L (<3.5-35.0)
[2022-02-05 01:05] LABS: D Dimer High Sensitivity 1701 NG/ML
[2022-02-05] MEDS: Morphine Sulfate 2 MG/ML CARTRIDGE IVPUSH (02:50)
[2022-02-05] MEDS: iohexoL 350 MG/ML 100 ML INFUS..BTL IV (03:24)
--- NOTE | 2022-02-05 03:44 | PC.NURSE ---
Assumed care of pt. from EMS approximately 2230 02/04/22. Pt. complaining of pain in the chest area that radiates toward the back when he takes a breath. Pt. was medicated with oxycontin per AUG, but reports no effect. Pt. c/o pain around 200 02/05/22, medicated with morphine per the AUG. Pt. reports good effect and can take a breath now without significant pain. Pt. resting comforably in bed.
[2022-02-05] MEDS: 0.9 % Sodium Chloride 1,000 ML 999 ML IVCONT (04:50)
--- NOTE | 2022-02-05 04:55 | PC.NURSE ---
I assumed nursing care of Nika upon his arrival to bed 4 from EMS. Nika presented to ED via EMS from home for evaluation of increasing abdominal distention in the setting of liver failure, and R sided chest pain. Nika is alert, oriented x 3, calm and cooperative. He makes eye contact with RN and is able to verbalize his needs adequately. Nika has obvious jaundice, noticeable from the doorway to his room. Respirations are spontaneous and non-labored, room air sat's WNL, RR WNL. Nika voids independently into urinal. He denies any change in his bowel pattern. We will continue to monitor Nika.
[2022-02-05] MEDS: LORazepam 1 MG TABLET 2 MG PO (05:36)
--- NOTE | 2022-02-05 06:39 | PC.NURSE ---
Pt. complaining of chest pain returning and being a bit more difficult to get a full breath. Pt. states he has been having some anxiety lately. Ativan given per MAR and pt. placed on 2L of O2 for ease in breathing d/t small pneumothorax.
--- NOTE | 2022-02-05 08:14 | PC.NURSE ---
pt sleeping, has been on NRB 100% for 45min,, nad, plan to repeat ct chest about 1000
--- NOTE | 2022-02-05 13:11 | PM.IMHP ---
History of Present Illness Date of Service: 02/05/22 Chief Complaint: right-sided chest pain, dyspnea a 56 years old male with alcoholic liver cirrhosis, COPD, GERD and recurrent pleural effusion requiring thoracentesis who presents to the hospital with dyspnea and right-sided chest pain. The patient reported that he had thoracentesis on 01/30 after presenting with dyspnea. He felt well 2 days after the procedure within the 3rd days started feeling right-sided chest pain associated with dyspnea. He denies any patient, nausea, vomiting or change in bowel habit. Images in the emergency were consistent with small pneumothorax on the right side along with right-sided pleural effusion. To discussed with thoracic surgery who recommended admission and frequent CXR for monitoring. Will be admitted for further evaluation treatment. Review of Systems Review of Systems: No fever, chills or weakness No chest pain, palpitation Right-sided chest pain with dyspnea No abdominal pain, nausea or vomiting No urinary symptoms No any rash or wounds PMFSH Medical History Alcoholic cirrhosis Alcoholism Chronic abdominal pain Cirrhosis Elevated LFTs Elevated liver enzymes Elevated liver function tests GERD (gastroesophageal reflux disease) Gout Liver mass, right lobe Panniculitis Family History Mother Cancer Surgical History H/O cervical spine surgery H/O colonoscopy H/O hemicolectomy Social History Household Members: Friend(s) Household Members Other:: roommate Housing: Apartment Do you presently have visiting nurse or other home services: No Alcohol intake: former Patient Tobacco Use Status: Former Tobacco user Tobacco use type: Cigarette Cigarettes Per Day: 4 Second Hand Smoke Exposure: No Use of substances other than those prescribed or required for medical reasons: Unknown Substance Use Type: Marijuana Advance Directives: No Advance Directives Information Provided: Yes service: No Current occupational status: unemployed Meds Allergies Allergy/AdvReac Type Severity Reaction Status Date / Time No Known Drug Allergies Allergy Mild NONE Verified 01/30/22 06:33 [NO KNOWN DRUG ALLERGIES] Home Medications Medication Instructions Recorded Confirmed Last Taken Type bupropion HCl 300 mg 24 hr tablet, 300 mg PO DAILY 06/10/21 02/05/22 12/05/21 History extended release cyanocobalamin (vitamin B-12) 1,000 mcg PO DAILY 06/10/21 02/05/22 12/05/21 History 1,000 mcg tablet folic acid 1 mg tablet 1 mg PO DAILY 06/10/21 02/05/22 12/05/21 History thiamine HCl (vitamin B1) 100 mg 100 mg PO DAILY 06/10/21 02/05/22 12/05/21 History tablet [id number] 1 cap PO TIDWM 08/10/21 02/05/22 12/05/21 History 24,000-76,000-120,000 unit capsule,delayed rel (Creon) omeprazole 40 mg capsule,delayed 1 cap PO DAILY 08/10/21 02/05/22 12/05/21 History release paroxetine HCl 20 mg tablet 1 tab PO DAILY 08/10/21 02/05/22 12/05/21 History meclizine 12.5 mg tablet 1 tab PO TID PRN Dizziness 12/06/21 02/05/22 Unknown History albuterol sulfate 90 mcg/actuation 1 - 2 puff inhalation Q4-6H PRN 01/26/22 02/05/22 Unknown History aerosol inhaler (ProAir HFA) Shortness Of Breath furosemide 40 mg tablet 40 mg PO DAILY 01/26/22 02/05/22 Unknown History hydroxyzine pamoate 25 mg capsule 25 - 50 mg PO DAILY 01/26/22 02/05/22 Unknown History spironolactone 100 mg tablet 100 mg PO DAILY 01/26/22 02/05/22 Unknown History Physical Exam Vital Signs and Narrative: Vital Signs: Last Vital Signs Temp 98.9 F 02/05/22 04:00 Pulse 107 H 02/05/22 11:31 Resp 22 H 02/05/22 11:31 BP 138/86 02/05/22 11:31 Pulse Ox 94 02/05/22 11:31 O2 Del Method 02/05/22 11:31 O2 Flow Rate 2 02/05/22 11:31 BMI result Body Mass Index 28.7 Const: Other: Constitutional : Alert, oriented, not in distress Neck : Normal inspection, Supple Cardiovascular : RRR, no JVP, no lower extremity edema Respiratory : fair bilateral air entry, no crackles, decreased air entry on the right side lower lobe Gastrointestinal: soft, lax, Normal bowel sounds, Non tender Skin : Warm, Dry Neurological : Alert & oriented x3, No focal deficit Results Labs CBC and Chem 7: 02/05/22 00:16 02/05/22 00:16 Labs: Laboratory Results - last 24 hr 02/05/22 02/05/22 02/05/22 00:16 00:16 00:16 MCV 95.9 MCH 33.7 H MCHC 35.1 RDW 14.0 Plt Count 157 L MPV 9.1 L Immature Gran % (Auto) 0.7 H Neut % (Auto) 66.9 Lymph % (Auto) 15.1 L [place] % (Auto) 14.1 H Eos % (Auto) 2.2 Baso % (Auto) 1.0 Lymph # (Auto) 1.3 [place] # (Auto) 1.2 Eos # (Auto) 0.2 Baso # (Auto) 0.1 Abs Immat Gran (auto) 0.06 H Absolute Neuts (auto) 5.8 Absolute Nucleated RBC 0.020 H Nucleated RBC % (auto) 0.2 PT INR D-Dimer High Sensitivty Anion Gap 18 Estim Creat Clear Calc 134.7 Estimated GFR > 60 Random Glucose 102 Calcium 8.7 Magnesium 1.6 Total Bilirubin 7.2 H Direct Bilirubin 5.1 H AST 84 H ALT 30 Alkaline Phosphatase 459 H Total Protein 7.2 Albumin 3.3 L Lipase 74 Ethyl Alcohol COVID-19 ([facility]) COVID-19 Clin Com 02/05/22 02/05/22 02/05/22 00:16 00:16 00:16 MCV MCH MCHC RDW Plt Count MPV Immature Gran % (Auto) Neut % (Auto) Lymph % (Auto) [place] % (Auto) Eos % (Auto) Baso % (Auto) Lymph # (Auto) [place] # (Auto) Eos # (Auto) Baso # (Auto) Abs Immat Gran (auto) Absolute Neuts (auto) Absolute Nucleated RBC Nucleated RBC % (auto) PT 16.5 H INR 1.4 H D-Dimer High Sensitivty 1701 Anion Gap Estim Creat Clear Calc Estimated GFR Random Glucose Calcium Magnesium Total Bilirubin Direct Bilirubin AST ALT Alkaline Phosphatase Total Protein Albumin Lipase Ethyl Alcohol < 10 COVID-19 ([facility]) Negative COVID-19 Clin Com See Note Imaging Radiologist's Impressions: Impressions Chest X-Ray 02/04/22 23:29 IMPRESSION: No acute pulmonary finding. Chest CTA 02/05/22 03:00 IMPRESSION: Suboptimal contrast opacification of the pulmonary arteries. No central or lobar pulmonary embolism. There is small to moderate right pleural effusion. Small right-sided pneumothorax is present. This critical result was discussed with Loretta Ng MD by telephone at 02/05/2022 3:59 AM and it was ascertained that the content and urgency of the report was understood at the time of direct communication. VTE: indeterminate Chest X-Ray 02/05/22 10:05 IMPRESSION: Small volume right apical pneumothorax, and small to moderate size right-sided pleural effusion resulting in asymmetric right hemithoracic low lung volume. Assessment and Plan (1) Hydropneumothorax: Status: Acute (2) Cirrhosis: Status: Acute Plan a 56 years old male with alcoholic liver cirrhosis, COPD, GERD and recurrent pleural effusion requiring thoracentesis who presents to the hospital with dyspnea and right-sided chest pain. Right pneumothorax Likely post thoracentesis last week CT scan as reported O2 supplement as needed Pain management Thoracic surgery evaluation serial x-ray and as needed Right pleural effusion Secondary to cirrhosis Give IV Lasix for now continue spironolactone Liver cirrhosis continue rifaximin, thiamin DVT PPX SCDs for possible intervention if needed The patient will need 2. overnight hospital stay for monitoring and treatment of pneumothorax pending thoracic surgery evaluation to prevent possible Decompensation into respiratory failure Quality Stroke Does the patient have a stroke diagnosis?: No VTE Prior VTE?: No VTE Risk Level:: Medical - moderate - high VTE Device Contraindication: N/A - Device Ordered VTE Drug Contraindication: Treatment Not Indicated
[2022-02-05] MEDS: Furosemide 40 MG/4 ML VIAL IVPUSH (14:47)
[2022-02-05] MEDS: 0.9 % Sodium Chloride Flush 3 ML SYRINGE IVFLUSH ×2 (15:49→23:38)
[2022-02-05 16:12] LABS: Appearance Urine CLEAR; Color Urine DK YELLOW; Glucose Urine UA NEG (NEG); Leukocyte Esterase Urine NEG (NEG); Nitrite Urine NEG (NEG); PH 6.5 (5.0-8.0); Urine Blood NEG (NEG); Urine Ketones NEG (NEG); Urine Protein NEG (NEG-TRACE)
--- NOTE | 2022-02-05 16:47 | PC.NURSE ---
pharmacy contacted for medication.
[2022-02-05] MEDS: Lipase/Prot/Amylase 24/76/120K 1 CAP CAPSULE.DR PO (20:04)
--- NOTE | 2022-02-05 22:30 | PC.NURSE ---
pharmacy contacted re meds
[2022-02-05] MEDS: Imipramine HCl 50 MG TABLET PO (23:37)
[2022-02-05] MEDS: rifAXIMin 550 MG TABLET PO (23:37)
[2022-02-06] VITALS (7 sets, daily range): BP systolic 128–152; BP diastolic 79–94; PULSE 104–114; RESP 16–20; TEMP 36.6–37.1; O2SAT 93–96; BMI 36.4
--- NOTE | 2022-02-06 00:59 | PC.NURSE ---
RN-RN report given at bedside.
[2022-02-06] MEDS: Omeprazole 40 MG CAPSULE.DR PO (06:26)
[2022-02-06 06:33] LABS: MANUAL DIFF FLAG NO
[2022-02-06 06:37] LABS: Basophils Absolute Auto 0.1 X10*3/uL (0.0-0.2); Basophils Percent Auto 1.2 % (0-2); Eosinophils Absolute Auto 0.3 X10*3/uL (0.0-0.4); Hematocrit 38.2 % (42.0-52.0); Hemoglobin 12.7 g/dl (14.0-18.0); Imm Gran Abs Auto 0.06 X10*3/uL (0.00-0.03); Imm Gran Pct Auto 0.8 % (0.0-0.4); Lymphocytes Absolute Auto 1.1 X10*3/uL (1.2-4.9); Lymphocytes Percent Auto 14.8 % (20-40); Mean Corpuscular HGB Conc 33.2 g/dl (31.0-36.0); Mean Corpuscular Hemoglobin 33.2 pg (27.0-33.0); Mean Platelet Volume 9.9 fL (9.4-12.4); Monocytes Absolute Auto 1.1 X10*3/uL (0.1-1.2); Monocytes Percent Auto 13.8 % (2-11); Neutrophils Percent Auto 65.4 % (45-73); Platelet Count 150 X10*3/uL (160-400); Red Blood Count 3.82 X10*6/uL (4.60-5.80); Red Cell Distribution Width 14.3 % (11.0-16.0); White Blood Count 7.7 X10*3/uL (4.8-10.8)
[2022-02-06 07:08] LABS: Anion Gap 16 (12-20); Blood Urea Nitrogen 10 mg/dL (9-16); Calcium 8.9 mg/dL (8.4-10.2); Carbon Dioxide 29 mmol/L (22-29); Chloride 97 mmol/L (96-108); Creatinine Clr Calc Pharmacy 147.1; Estimated Glomerular Filt Rate > 60; Glucose Random 107 mg/dL (60-115); Potassium 4.3 mmol/L (3.3-5.1); Sodium 138 mmol/L (135-145)
[2022-02-06] MEDS: Lipase/Prot/Amylase 24/76/120K 1 CAP CAPSULE.DR PO ×3 (09:43→18:11)
[2022-02-06] MEDS: buPROPion HCl XL 300 MG TAB.ER.24H PO (09:43)
[2022-02-06] MEDS: rifAXIMin 550 MG TABLET PO ×2 (09:43→21:06)
[2022-02-06] MEDS: Cyanocobalamin (Vitamin B-12) 1,000 MCG TABLET 1000 MCG PO (09:43)
[2022-02-06] MEDS: Folic Acid 1 MG TABLET PO (09:43)
[2022-02-06] MEDS: hydrOXYzine HCL 25 MG TABLET PO (09:43)
[2022-02-06] MEDS: PARoxetine HCL 20 MG TABLET PO (09:43)
[2022-02-06] MEDS: Thiamine HCL 100 MG TABLET PO (09:44)
[2022-02-06] MEDS: 0.9 % Sodium Chloride Flush 3 ML SYRINGE IVFLUSH ×3 (09:44→21:08)
[2022-02-06] MEDS: Furosemide 40 MG TABLET PO (09:44)
[2022-02-06] MEDS: Spironolactone 25 MG TABLET 100 MG PO (09:44)
--- NOTE | 2022-02-06 10:09 | MHC.CM.PN ---
met with tp who is independent pt states he had no previous services prior to admission and does not anticapte needing services when dcd pt is vax x2 j&j and one booster pts siter is hcp and will transport pt home
--- NOTE | 2022-02-06 13:04 | HO.PM.IMPN ---
Subjective Subjective Date of Service: 02/06/22 Interval History: Seen and evaluated this morning Feels more comfortable, decreased shortness of breath and pain no reported overnight events Repeated chest x-ray showing improvement of the pneumothorax Review of Systems No fever, chills or weakness No chest pain, palpitation Improved Right-sided chest pain with dyspnea No abdominal pain, nausea or vomiting No urinary symptoms No any rash or wounds Physical Exam Vital Signs: Vital Signs: Last Vital Signs Temp 98.3 F 02/06/22 11:31 Pulse 110 H 02/06/22 11:31 Resp 20 02/06/22 11:31 BP 147/94 H 02/06/22 11:31 Pulse Ox 93 02/06/22 11:31 O2 Del Method 02/06/22 11:31 O2 Flow Rate 2 02/06/22 07:58 BMI result Body Mass Index 36.4 Const: Other: Constitutional : Alert, oriented, not in distress Neck : Normal inspection, Supple Cardiovascular : RRR, no JVP, no lower extremity edema Respiratory : fair bilateral air entry, no crackles, decreased air entry on the right side lower lobe Gastrointestinal: soft, lax, Normal bowel sounds, Non tender Skin : Warm, Dry Neurological : Alert & oriented x3, No focal deficit Objective Data Active Medications Albuterol Sulfate (Albuterol Sulfate 90 Mcg 8 Gm Inhaler) 1 - 2 puff INHALE Q4H PRN PRN Reason: Shortness Of Breath Lipase/Protease/Amylase (Lipase/Prot/Amylase 24/76/120k 1 Cap Capsule.Dr) 1 cap PO TIDWM [facility] Last Admin: 02/06/22 12:28 Dose: 1 cap Documented By: CYNTHIA Bupropion HCl (Bupropion Hcl Xl 300 Mg Tab.Er.24h) 300 mg PO DAILY [facility] Last Admin: 02/06/22 09:43 Dose: 300 mg Documented By: WENDY Cyanocobalamin (Cyanocobalamin (Vitamin B-12) 1,000 Mcg Tablet) 1,000 mcg PO DAILY [facility] Last Admin: 02/06/22 09:43 Dose: 1,000 mcg Documented By: WENDY Folic Acid (Folic Acid 1 Mg Tablet) 1 mg PO DAILY [facility] Last Admin: 02/06/22 09:43 Dose: 1 mg Documented By: WENDY Furosemide (Furosemide 40 Mg Tablet) 40 mg PO DAILY [facility]; Protocol Last Admin: 02/06/22 09:44 Dose: 40 mg Documented By: WENDY Hydroxyzine HCl (Hydroxyzine Hcl 25 Mg Tablet) 25 mg PO DAILY [facility] Last Admin: 02/06/22 09:43 Dose: 25 mg Documented By: WENDY Imipramine HCl (Imipramine Hcl 50 Mg Tablet) 50 mg PO BEDTIME [facility] Last Admin: 02/05/22 23:37 Dose: 50 mg Documented By: RANDDENFlora Meclizine HCl (Meclizine Hcl 12.5 Mg Tablet) 12.5 mg PO TID PRN PRN Reason: Dizziness Morphine Sulfate (Morphine Sulfate 4 Mg/Ml Cartridge) 4 mg IVPUSH Q4H PRN; Protocol PRN Reason: Pain, Severe (Pain Scale 7-10) Nicotine Polacrilex (Nicotine Polacrilex 2 Mg Gum) 2 mg BUCCAL Q2H [facility] Last Admin: 02/06/22 10:59 Dose: Not Given Documented By: WENDY Non-Admin Reason: Patient Refused Omeprazole (Omeprazole 40 Mg Capsule.Dr) 40 mg PO DAILY@0630 [facility] Last Admin: 02/06/22 06:26 Dose: 40 mg Documented By: FLACO Ondansetron HCl (Ondansetron Hcl 4 Mg/2 Ml Vial) 4 mg IVPUSH Q8H PRN PRN Reason: Nausea and Vomiting Paroxetine HCl (Paroxetine Hcl 20 Mg Tablet) 20 mg PO DAILY [facility] Last Admin: 02/06/22 09:43 Dose: 20 mg Documented By: WENDY Rifaximin (Rifaximin 550 Mg Tablet) 550 mg PO BID [facility] Last Admin: 02/06/22 09:43 Dose: 550 mg Documented By: WENDY Sodium Chloride (0.9 % Sodium Chloride Flush 3 Ml Syringe) 3 ml IVFLUSH QSHIFT [facility] Last Admin: 02/06/22 09:44 Dose: 3 ml Documented By: WENDY Spironolactone (Spironolactone 25 Mg Tablet) 100 mg PO DAILY [facility]; Protocol Last Admin: 02/06/22 09:44 Dose: 100 mg Documented By: WENDY Thiamine HCl (Thiamine Hcl 100 Mg Tablet) 100 mg PO DAILY [facility] Last Admin: 02/06/22 09:44 Dose: 100 mg Documented By: WENDY Labs CBC & Chem 7: 02/06/22 05:57 02/06/22 05:57 Labs: Laboratory Results - last 24 hr 02/05/22 02/06/22 02/06/22 15:55 05:57 05:57 MCV 100.0 H MCH 33.2 H MCHC 33.2 RDW 14.3 Plt Count 150 L MPV 9.9 Immature Gran % (Auto) 0.8 H Neut % (Auto) 65.4 Lymph % (Auto) 14.8 L Power % (Auto) 13.8 H Eos % (Auto) 4.0 Baso % (Auto) 1.2 Lymph # (Auto) 1.1 L Power # (Auto) 1.1 Eos # (Auto) 0.3 Baso # (Auto) 0.1 Abs Immat Gran (auto) 0.06 H Absolute Neuts (auto) 5.0 Absolute Nucleated RBC 0.000 Nucleated RBC % (auto) 0.0 Anion Gap 16 Estim Creat Clear Calc 147.1 Estimated GFR > 60 Random Glucose 107 Calcium 8.9 Urine Color DK YELLOW Urine Appearance CLEAR Urine pH 6.5 Ur Specific [place] 1.010 Urine Protein NEG Urine Glucose (UA) NEG Urine Ketones NEG Urine Blood NEG Urine Nitrite NEG Ur Leukocyte Esterase NEG Assessment and Plan (1) Pneumothorax: Status: Acute (2) Pleural effusion on right: Status: Acute Plan a 56 years old male with alcoholic liver cirrhosis, COPD, GERD and recurrent pleural effusion requiring thoracentesis who presents to the hospital with dyspnea and right-sided chest pain. Right pneumothorax Likely post thoracentesis last week CT scan as reported O2 supplement as needed serial x-ray showing improvement of the pneumothorax Pain management Pending Thoracic surgery evaluation Right pleural effusion Secondary to cirrhosis Continue home dose Lasix continue spironolactone Liver cirrhosis continue rifaximin, thiamin DVT PPX SCDs for possible intervention if needed The patient will need overnight hospital stay for monitoring and treatment of pneumothorax pending thoracic surgery evaluation to prevent possible Decompensation into respiratory failure Quality Stroke Does the patient have a stroke diagnosis?: No VTE Prior VTE?: No VTE Risk Level:: Medical - moderate - high VTE Device Contraindication: N/A - Device Ordered VTE Drug Contraindication: Treatment Not Indicated
[2022-02-06] MEDS: Imipramine HCl 50 MG TABLET PO (21:06)
[2022-02-07] VITALS: BP 115/79; PULSE 110; RESP 16; TEMP 36.3; O2SAT 93
[2022-02-07 07:29] VITALS: BP 150/89; PULSE 100; RESP 20; TEMP 36.9; O2SAT 94
[2022-02-07] MEDS: Spironolactone 25 MG TABLET 100 MG PO (09:28)
[2022-02-07] MEDS: buPROPion HCl XL 300 MG TAB.ER.24H PO (09:28)
[2022-02-07] MEDS: Furosemide 40 MG TABLET PO (09:28)
[2022-02-07] MEDS: Lipase/Prot/Amylase 24/76/120K 1 CAP CAPSULE.DR PO (09:28)
[2022-02-07] MEDS: Folic Acid 1 MG TABLET PO (09:28)
[2022-02-07] MEDS: Omeprazole 40 MG CAPSULE.DR PO (09:28)
[2022-02-07] MEDS: rifAXIMin 550 MG TABLET PO (09:28)
[2022-02-07] MEDS: PARoxetine HCL 20 MG TABLET PO (09:29)
[2022-02-07] MEDS: Cyanocobalamin (Vitamin B-12) 1,000 MCG TABLET 1000 MCG PO (09:29)
[2022-02-07] MEDS: hydrOXYzine HCL 25 MG TABLET PO (09:29)
[2022-02-07] MEDS: 0.9 % Sodium Chloride Flush 3 ML SYRINGE IVFLUSH (09:29)
[2022-02-07] MEDS: Thiamine HCL 100 MG TABLET PO (09:29)
[2022-02-07 10:39] VITALS: BP 146/84; PULSE 100; RESP 20; O2SAT 96
--- NOTE | 2022-02-07 12:07 | PM.DS ---
DS: Providers Provider Date of Service: 02/07/22 Date of admission: 02/05/22 13:07 Primary care physician: Martin Avilez MD Consults: 02/05/22 11:25 Consult to Thoracic Surgery Stat Consulting Provider: Caitlyn Richardson Reason for consultation: PTX s/p thora, hx hepatic hydrothorax getting biweekly thoras Has provider been notified: Yes DS: Diagnosis Discharge Diagnosis (1) Pneumothorax: Status: Acute (2) Pleural effusion on right: Status: Acute DS: Summary Hospital Course Hospital Course: Admission note HPI ?a 56 years old male with alcoholic liver cirrhosis, COPD, GERD and recurrent pleural effusion requiring thoracentesis who presents to the hospital with dyspnea and right-sided chest pain.? The patient reported that he had thoracentesis on 01/30 after presenting with dyspnea.? He felt well 2 days after the procedure within the 3rd days started feeling right-sided chest pain associated with dyspnea.? He denies any patient, nausea, vomiting or change in bowel habit.? Images in the emergency were consistent with small pneumothorax on the right side along with right-sided pleural effusion.? To discussed with thoracic surgery who recommended admission and frequent CXR for monitoring.? Will be admitted for further evaluation treatment. Hospital course The patient presented for evaluation of dyspnea and right-sided chest pain. CT scan of the chest was consistent with small right-sided pneumothorax with evidence of pleural effusion. Discussed with thoracic surgery at time of admission no recommended CT a chest x-rays. The patient dyspnea and chest pain resolved during the hospital stay as he was able to ambulate on room air with no reported shortness of breath. Serial chest x-rays showed improvement of the pneumothorax with no evidence of worsening of the leak. Thoracic surgery team could not see the patient during the hospital stay but reviewed the images by Aggie Simons who reported that the patient can be discharged and follow-up with his PCP and Gastroenterology as no intervention planned by thoracic surgery. We advise you to continue home medications as prescribed Please come back to the hospital for any worsening shortness of breath or chest pain Time Spent with Patient Time attestation: Total time spent providing and/or coordinating discharge services: Discharge coordination time: Greater than 30 minutes Quality: Safe Use of Opioids Does Pt have an Active Cancer Diagnosis on the Problem List?: No Quality: Stroke Does the patient have a stroke diagnosis?: No Physical Exam Vital Signs: Vital Signs: Last Vital Signs Temp 98.5 F 02/07/22 07:29 Pulse 100 02/07/22 10:39 Resp 20 02/07/22 10:39 BP 146/84 H 02/07/22 10:39 Pulse Ox 96 02/07/22 10:39 O2 Del Method 02/07/22 10:39 O2 Flow Rate 2 02/06/22 07:58 BMI result Body Mass Index 36.4 Const: Other: Constitutional : Alert, oriented, not in distress Neck : Normal inspection, Supple Cardiovascular : RRR, no JVP, no lower extremity edema Respiratory : fair bilateral air entry, no crackles, decreased air entry on the right side lower lobe Gastrointestinal: soft, lax, Normal bowel sounds, Non tender Skin : Warm, Dry Neurological : Alert & oriented x3, No focal deficit DS: Data Data Completed and Pending Completed studies during hospitalization [Text1]: Procedures Control Bleeding in Gastrointestinal Tract, Via Natural or Artificial Opening Endoscopic (11/01/21) Detoxification Services for Substance Abuse Treatment (12/06/21) Drainage of Right Pleural Cavity, Percutaneous Approach (12/06/21) Introduction of Mineral-based Topical Hemostatic Agent into Upper GI, Via Natural or Artificial Opening Endoscopic, [employer] (11/01/21) Occlusion of Esophageal Vein with Extraluminal Device, Via Natural or Artificial Opening Endoscopic (11/01/21) Imaging CT scan - chest: Radiologist's impression: ITS Impressions Chest X-Ray 02/04/22 23:29 IMPRESSION: No acute pulmonary finding. Chest CTA 02/05/22 03:00 IMPRESSION: Suboptimal contrast opacification of the pulmonary arteries. No central or lobar pulmonary embolism. There is small to moderate right pleural effusion. Small right-sided pneumothorax is present. This critical result was discussed with Loretta Ng MD by telephone at 02/05/2022 3:59 AM and it was ascertained that the content and urgency of the report was understood at the time of direct communication. VTE: indeterminate Chest X-Ray 02/05/22 10:05 IMPRESSION: Small volume right apical pneumothorax, and small to moderate size right-sided pleural effusion resulting in asymmetric right hemithoracic low lung volume. Chest CT 02/05/22 10:43 IMPRESSION: Stable right hydropneumothorax with small pneumothorax and large right pleural effusion from chest CTA from earlier the same day. Compressive atelectasis of the right lower lobe.. Fleischner guidelines were followed. Chest X-Ray 02/05/22 20:06 IMPRESSION: Decreased small right apical pneumothorax. Small right pleural effusion with accompanying atelectasis. Chest X-Ray 02/06/22 08:35 IMPRESSION: No change in the right hydropneumothorax from yesterday's exam. Compressive atelectasis or consolidation of the right lower lobe adjacent to the effusion. Chest X-Ray 02/07/22 07:42 IMPRESSION: Stable right-sided hydropneumothorax. Discharge Plan Discharge Patient Disposition: Home, Self-Care Discharge Diagnosis: Pneumothorax Pleural effusion Referrals: Martin Avilez MD [Primary Care Provider] - 1 Week Discharge Medications: Continued omeprazole 40 mg capsule,delayed release(DR/EC) 1 cap PO DAILY paroxetine HCl 20 mg tablet 1 tab PO DAILY Creon 24,000-76,000 -120,000 unit capsule,delayed release(DR/EC) 1 cap PO TIDWM Rx Instructions: administer with meals and/or snacks nicotine (polacrilex) 2 mg gum 2 mg buccal Q2H Qty: 100 0RF meclizine 12.5 mg tablet 1 tab PO TID PRN (Reason: Dizziness) hydroxyzine pamoate 25 mg capsule 25 - 50 mg PO DAILY spironolactone 100 mg tablet 100 mg PO DAILY furosemide 40 mg tablet 40 mg PO DAILY albuterol sulfate [ProAir HFA] 90 mcg/actuation HFA aerosol inhaler 1 - 2 puff inhalation Q4-6H PRN (Reason: Shortness Of Breath) folic acid 1 mg tablet 1 mg PO DAILY bupropion HCl 300 mg tablet extended release 24 hr 300 mg PO DAILY thiamine HCl (vitamin B1) 100 mg tablet 100 mg PO DAILY cyanocobalamin (vitamin B-12) 1,000 mcg tablet 1,000 mcg PO DAILY imipramine HCl 50 mg tablet 50 mg PO BEDTIME Qty: 30 6RF Xifaxan 550 mg tablet 550 mg PO BID Qty: 60 6RF Discharge Orders: Discharge Order (Routine); Ordered 02/07/22 Ordered By: aKlyan Moore Diet: Advance to usual diet Activity on Discharge: As tolerated Stand Alone Forms: Patient Portal Discharge page Care Plan Goals: Read below Health Concerns: Read below Plan of Treatment: Read below Assessment: You were admitted to the hospital for evaluation of right-sided chest pain. Chest images were consistent with small air leak into your lung. Monitored with serial of chest x-rays that showed improvement as the pain improved. Discussed with thoracic surgery who recommended outpatient follow-up with PCP and Gastroenterology as no intervention is planned at this point. We advise you to continue home medications as prescribed Please come back to the hospital for any worsening shortness of breath or chest pain
--- NOTE | 2022-02-07 12:16 | MHC.CM.PN ---
Discharged todayto home. No services ordered or required. Patient has arranged for transportation.
--- NOTE | 2022-02-07 12:34 | PC.NURSE ---
Alert and oriented. Denies pain. VSS, afebrile, no acute resp. distress noted. Took all schedule meds as ordered. Patient requested to go home. Dr. Moore made aware and talked to patient. New order to discharge patient home. Went over discharge instructions, follow up apt and medication adminsitrations with patient, verbalized understanding back. 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
== END 2022-02-07 12:37 | disposition home or self-care (01) | DRG 143 ==
LOC: HO.ED 02-05 12:32 → HO.EDOVER 02-05 13:20 → HO.IMC 02-05 23:47
PROVIDERS: Emergency Medicine; Admitting Provider Student in an Organized Health Care Education/Training Program; Emergency Provider Student in an Organized Health Care Education/Training Program; PCP Internal Medicine; Visit Provider Student in an Organized Health Care Education/Training Program
DX: J95.811 Postprocedural pneumothorax (principal); J91.8 Pleural effusion in other conditions classified elsewhere; K70.30 Alcoholic cirrhosis of liver without ascites; F17.210 Nicotine dependence, cigarettes, uncomplicated; Y84.9 Medical procedure, unspecified as the cause of abnormal reaction of the patient, or of later complication, without mention of misadventure at the time of the procedure; Z20.822 Contact with and (suspected) exposure to COVID-19; Z71.6 Tobacco abuse counseling; Z79.899 Other long term (current) drug therapy
CPT/HCPCS: 36415; 71045; 71250; 71275; 80048; 80076; 81003; 82077; 83690; 83735; 84484; 85025; 85379; 85610; 87635; 93005; 99219; 99285; J1940; J2270; Q9967

== ENCOUNTER → 2022-02-09 10:56 | Outpatient (BNVA) | payer MEDICAID, SELFPAY | PROVIDERS: PCP Internal Medicine; Visit Provider Internal Medicine | DX: K74.60 Unspecified cirrhosis of liver (principal); K72.90 Hepatic failure, unspecified without coma; J94.8 Other specified pleural conditions; F10.21 Alcohol dependence, in remission ==

== ENCOUNTER 2022-02-09 12:08 | Outpatient (REF) | payer MEDICAID, SELFPAY ==
--- NOTE | ~2022-02-09 | XR_ITS ---
EXAMINATION: XR CHEST CLINICAL INFORMATION: Pneumothorax COMPARISON: Chest x-ray 02/07/2022 TECHNIQUE: 2 views of the chest were obtained. FINDINGS: Cardiac silhouette is normal in size. The lungs are adequately aerated. Small right-sided pleural effusion appears stable to minimally decreased in size. There is improved aeration of the right lung base. A pneumothorax is not clearly identified. XR/XR chest 2V IMPRESSION: Mild interval decrease in size of right-sided pleural effusion. No definitive pneumothorax.
== END 2022-02-09 12:09 | disposition home or self-care (01) ==
LOC: HO.XRAY 12:08
PROVIDERS: PCP Internal Medicine; Visit Provider Hospitalist
DX: J93.9 Pneumothorax, unspecified (principal); J94.8 Other specified pleural conditions; K74.60 Unspecified cirrhosis of liver
CPT/HCPCS: 71046

== ENCOUNTER → 2022-02-14 09:04 | Outpatient (BNVA) | payer MEDICAID, SELFPAY | PROVIDERS: PCP Internal Medicine; Visit Provider Hospitalist | DX: J90 Pleural effusion, not elsewhere classified (principal); J94.8 Other specified pleural conditions; K70.30 Alcoholic cirrhosis of liver without ascites; F17.210 Nicotine dependence, cigarettes, uncomplicated | CPT/HCPCS: 99212 ==

== ENCOUNTER 2022-02-20 09:53 | Outpatient (REF) | payer MEDICAID, SELFPAY ==
--- NOTE | ~2022-02-20 | XR_ITS ---
EXAMINATION: XR CHEST CLINICAL INFORMATION: Pleural effusion COMPARISON: 02/09/2022 TECHNIQUE: 2 views of the chest were obtained. FINDINGS: Small right pleural effusion appears similar to slightly decreased from the prior study. No left pleural effusion. Normal pulmonary vascularity. Normal heart size. Regional skeleton intact. XR/XR chest 2V IMPRESSION: Small right pleural effusion, similar to slightly decreased in size from prior study.
[2022-02-20 11:35] LABS: Alanine Aminotransferase 30 U/L (0-40); Albumin Level 3.5 g/dL (3.5-5.0); Alkaline Phosphatase 447 U/L (39-117); Anion Gap 15 (12-20); Aspartate Amino Transferase 76 U/L (5-37); Bilirubin Total 5.6 mg/dL (0.0-1.0); Blood Urea Nitrogen 7 mg/dL (9-16); Calcium 9.2 mg/dL (8.4-10.2); Carbon Dioxide 26 mmol/L (22-29); Chloride 99 mmol/L (96-108); Estimated Glomerular Filt Rate > 60; Glucose Random 108 mg/dL (60-115); Potassium 4.4 mmol/L (3.3-5.1); Sodium 136 mmol/L (135-145); Total Protein 7.9 g/dL (6.5-8.0)
[2022-02-20 12:03] LABS: Potassium Urine Random 125.2 mmol/L
[2022-02-22 04:07] LABS: Hepatitis A Antibody IgG Nonreactive (Nonreactive); ~Hepatitis A Antibody IgG 0.69 S/CO (0.00-0.99)
== END 2022-02-20 09:54 | disposition home or self-care (01) ==
LOC: HO.XRAY 09:53
PROVIDERS: Absent Provider Hospitalist; PCP Internal Medicine; Visit Provider Internal Medicine
DX: K74.60 Unspecified cirrhosis of liver (principal); J90 Pleural effusion, not elsewhere classified
CPT/HCPCS: 71046; 80053; 80321; 84133; 84300; 86708

== ENCOUNTER → 2022-03-08 07:53 | Outpatient (BNVA) | payer MEDICAID, SELFPAY | PROVIDERS: PCP Internal Medicine; Referring Provider Internal Medicine; Visit Provider Internal Medicine | DX: K72.90 Hepatic failure, unspecified without coma (principal); K74.60 Unspecified cirrhosis of liver; J94.8 Other specified pleural conditions; G62.9 Polyneuropathy, unspecified; K70.30 Alcoholic cirrhosis of liver without ascites; F10.21 Alcohol dependence, in remission; F17.210 Nicotine dependence, cigarettes, uncomplicated | CPT/HCPCS: 99212 ==

== ENCOUNTER → 2022-03-24 07:24 | Outpatient (REF) | payer MEDICAID, SELFPAY ==
--- NOTE | 2022-03-24 07:38 | CA_ITS ---
Transthoracic Echocardiogram Patient (Last, First, Middle): Akash Barboza J Gender: Male Date of : 1965 Age: 56 Procedure Date: 03/24/2022 Procedure Type: Transthoracic Echocardiogram Location: OP Height: 195.58 cm Weight: 109.32 kg BSA: 2.42 m2 Heart Rate: 104 bpm BP: 104 / 74 mmHg Staff Research Scientist: SB Referring MD: Marcia Hawk MD Symptoms: K74.60 - Unspecified cirrhosis of liver Study Quality: Adequate ECG Rhythm: Tachycardia Conclusions: - Normal left ventricular size and systolic function. The visually estimated ejection fraction is between 55-60%. - Spectral Doppler is indicative of an impaired relaxation filling pattern. E/E prime ratio is <8, consistent with normal filling pressures. - Normal right ventricular cavity size and systolic function. - There is mild dilatation of the sinuses of Valsalva measuring 4.00 cm and mild dilatation of the ascending aorta measuring 3.90 cm. - There are no definitive echocardiographic findings of tamponade physiology. Moderate pericardial effusion noted around the right atrium. There is right sided pleural effusion and ascites present. - Consider CT chest for further assessment of the pericardial effusion. No tamponade physiology present. Findings Left Ventricle Normal left ventricular size and systolic function. The visually estimated ejection fraction is between 55-60%. There is no evidence of regional wall motion abnormalities. Abnormal diastolic function is noted. Spectral Doppler is indicative of an impaired relaxation filling pattern. E/E prime ratio is <8, consistent with normal filling pressures. There is mild septal asymmetric hypertrophy. Low global longitudinal strain. Right Ventricle Normal right ventricular cavity size and systolic function. Atria Both atria are normal in size. Aortic Valve Normal aortic valve structure and function. There is no aortic valve stenosis. There is no aortic valve regurgitation. Mitral Valve Normal mitral valve structure and function. There is no mitral valve regurgitation. There is no mitral valve stenosis. Pulmonic Valve The pulmonic valve is likely normal. Tricuspid Valve Normal tricuspid valve structure and function. There is trace tricuspid valve regurgitation. Normal right atrial pressure. There is no evidence of pulmonary hypertension. Great Vessels There is mild dilatation of the sinuses of Valsalva measuring 4.00 cm and mild dilatation of the ascending aorta measuring 3.90 cm. The visualized portions of the pulmonary artery and branches are normal. Venous The inferior vena cava is normal in size and collapses greater than 50% with inspiration. Pericardium/Pleural There are no definitive echocardiographic findings of tamponade physiology. Moderate pericardial effusion noted around the right atrium. There is right sided pleural effusion and ascites present. Measurements 2D Linear Measurements IVSd: 1.20 0.6-0.9/0.6-1.0 cm LVIDd: 4.03 3.9-5.3/4.2-5.9 cm LVIDd Index: 1.67 2.4-3.2/2.2-3.1 cm/m2 LVIDs: 2.29 2.0-3.6 cm LVPWd: 0.85 0.7-1.1 cm LA Diam: 3.20 2.7-3.8/3.0-4.0 cm LAIDs Index: 1.32 1.5-2.3 cm/m2 LV Mass: 165.10 67-162/88-224 g LV Mass Index: 68.22 43-95/49-115 g/m2 LVOT Diam: 2.50 3.0+(-)1.3 cm 2D Systolic Function EF 4C: 51.20 >55% EF 2C: 56.60 >55% EF BiP: 52.30 >55% Mitral Valve MV Pk E: 0.59 MV PK A: 1.00 MV Decel Time: 140.00 E/A: 0.60 E'Lateral: 11.70 E'Medial: 8.27 E/E' Med: 7.10 E/E' Lat: 5.10 PHT: 41.00 MVA PHT: 5.37 Decel [place]: 4.22 Aortic Valve AoV Pk Atul: 1.55 AoV Mn Atul: 1.10 AoV VTI: 0.23 AoV Pk Grad: 10.00 Aov Mn Grad: 6.00 DOYLE Cont.VTI: 3.89 LVOT LVOT Pk Atul: 1.13 LVOT Mn Atul: 0.70 LVOT VTI: 0.18 LVOT Pk Grad: 5.00 LVOT Mn Grad: 2.00 LVOT Diam: 2.50 LVOT Area: 4.91 Diastolic Function MV Pk E: 0.59 MV Pk A: 1.00 E/A: 0.60 E'Medial: 8.27 E/E' Med: 7.10 E' Laterial: 11.70 E/E' Lat: 5.10 Right Ventricle TAPSE (mm): 22.40 TVS' Atul: 18.10 Tricuspid Valve TR Pk Atul: 2.32 TR Pk Grad: 22.00 RA Press: 3.00 RVSP: 25.00 Great Vessels Aorta Sinus of Valsalva: 4.00 2.0-3.5 cm Ao Asc: 3.90 2.1-3.4 cm Pulmonary Valve PV Pk Atul: 1.11 Peak PV Grad: 5.00 Updated in Other Vendor System with Status of Final Manny Beaver MD electronically signed on 03/24/2022 7:48:41 PM with status of Final
[2022-03-24 08:49] LABS: Anion Gap 16 (12-20); Blood Urea Nitrogen 8 mg/dL (9-16); Calcium 9.3 mg/dL (8.4-10.2); Carbon Dioxide 28 mmol/L (22-29); Chloride 95 mmol/L (96-108); Estimated Glomerular Filt Rate > 60; Glucose Random 111 mg/dL (60-115); Potassium 4.9 mmol/L (3.3-5.1); Sodium 134 mmol/L (135-145)
[2022-03-24 09:32] LABS: Folate 14.5 ng/mL (> or = 4.0); Vitamin B12 1828 pg/mL (200-900)
[2022-03-24 11:40] LABS: Potassium Urine Random 89.5 mmol/L
[2022-03-27 14:22] LABS: Alpha Fetoprotein 4.1 ng/mL (<6.1)
== END ==
LOC: HO.CARD 07:24
PROVIDERS: PCP Internal Medicine; Visit Provider Internal Medicine
DX: R94.31 Abnormal electrocardiogram [ECG] [EKG] (principal); K70.30 Alcoholic cirrhosis of liver without ascites; G62.9 Polyneuropathy, unspecified; T50.2X5A Adverse effect of carbonic-anhydrase inhibitors, benzothiadiazides and other diuretics, initial encounter
CPT/HCPCS: 36415; 80048; 82105; 82436; 82607; 82746; 84133; 84300; 93306

== ENCOUNTER → 2022-04-05 09:29 | Outpatient (BNVA) | payer MEDICAID, SELFPAY | PROVIDERS: PCP Internal Medicine; Referring Provider Internal Medicine; Visit Provider Internal Medicine | DX: K74.60 Unspecified cirrhosis of liver (principal); K72.90 Hepatic failure, unspecified without coma; J94.8 Other specified pleural conditions; I31.39 Other pericardial effusion (noninflammatory); D36.9 Benign neoplasm, unspecified site; R16.0 Hepatomegaly, not elsewhere classified; F10.21 Alcohol dependence, in remission; F17.210 Nicotine dependence, cigarettes, uncomplicated | CPT/HCPCS: 99212 ==

== ENCOUNTER 2022-04-07 07:33 | Outpatient (REF) | payer MEDICAID, SELFPAY ==
--- NOTE | ~2022-04-07 | US_ITS ---
EXAMINATION: US ABDOMEN COMPLETE CLINICAL INFORMATION: Hepatobiliary syndrome. COMPARISON: None. TECHNIQUE: Real-time imaging of the abdominal viscera. FINDINGS: PANCREAS: Normal. ABDOMINAL AORTA: The proximal, mid, and distal segments are normal in caliber. INFERIOR VENA CAVA: Visualized portions are normal. LIVER: The liver is enlarged in size. The liver contour is normal. Parenchymal echogenicity is heterogeneous. No focal hepatic lesion. There is no intrahepatic biliary duct dilatation seen. There is a small amount of free fluid. GALLBLADDER: Gallbladder wall thickness is 0.8 cm. The gallbladder is physiologically distended with echogenic present stones. There is no sludge, polyps, wall thickening or pericholecystic fluid. COMMON BILE DUCT: Normal in caliber measuring 0.4 cm in diameter. RIGHT KIDNEY: There is an anechoic cyst in the midpole measuring 1.7 x 1.3 x 1.9 cm and posterior calcification. The calcification measures 0.5 x 0.3 x 0.4 cm. No hydronephrosis. No renal calculi or focal parenchymal lesions. The kidney measures 12.1 cm in maximum dimension. LEFT KIDNEY: Normal. No hydronephrosis. No renal calculi or focal parenchymal lesions. The kidney measures 13.5 cm in maximum dimension. SPLEEN: The spleen is enlarged and measures 16.9 cm in maximum dimension. FREE FLUID: None. US/US abdomen complete IMPRESSION: 1. Heterogeneous echogenic liver without focal lesion. 2. Small amount of free fluid in the right upper quadrant. 3. Cholelithiasis with wall thickening. 4. Complex cyst midpole right kidney. 5. Rest of the abdominal ultrasound is unremarkable.
--- NOTE | ~2022-04-07 | US_ITS ---
EXAMINATION: US duplex arterial venous comp CLINICAL INFORMATION: Alcohol dependence COMPARISON: None TECHNIQUE: Color and spectral Doppler evaluation of the hepatic vasculature. FINDINGS: Images are performed in conjunction with ultrasound of the abdomen, examination accession number [id number] SPLENIC VEIN: Patent with normal waveforms. HEPATIC VEINS: Patent with normal waveforms. PORTAL VEINS: Patent with normal waveforms and hepatopetal flow. HEPATIC ARTERIES: Normal upstroke and diastolic flow. INFERIOR VENA CAVA: Patent with normal waveforms. ABDOMINAL AORTA: The visualized proximal segment is normal in caliber. INFERIOR VENA CAVA: Visualized portions are normal. US/US duplex arterial venous comp IMPRESSION: Patent hepatic vasculature with normal waveforms
[2022-04-07 08:56] LABS: Anion Gap 21 (12-20); Blood Urea Nitrogen 10 mg/dL (9-16); Calcium 9.7 mg/dL (8.4-10.2); Carbon Dioxide 27 mmol/L (22-29); Chloride 92 mmol/L (96-108); Estimated Glomerular Filt Rate > 60; Glucose Random 115 mg/dL (60-115); Sodium 135 mmol/L (135-145)
[2022-04-07 10:10] LABS: Potassium Urine Random 82.9 mmol/L
== END 2022-04-07 07:34 | disposition home or self-care (01) ==
LOC: HO.US 07:33
PROVIDERS: Absent Provider Internal Medicine; PCP Internal Medicine; Visit Provider Nurse Practitioner
DX: K76.81 Hepatopulmonary syndrome (principal); E72.20 Disorder of urea cycle metabolism, unspecified; F10.21 Alcohol dependence, in remission; Z79.899 Other long term (current) drug therapy
CPT/HCPCS: 76700; 80048; 84133; 84300; 93975

== ENCOUNTER 2022-04-19 08:36 | Outpatient (REF) | payer MEDICAID, SELFPAY ==
--- NOTE | ~2022-04-19 | CT_ITS ---
EXAMINATION: CT CHEST WITH CONTRAST CLINICAL INFORMATION: Pericardial effusion COMPARISON: Previous chest x-ray and chest CT most recent January 2022 TECHNIQUE: Multidetector volumetric CT imaging of the chest was obtained after the administration of 65 mL of Omnipaque 350 intravenous contrast without immediate adverse reactions. Axial MIP volume rendering provided. Sagittal and coronal reformatted images were obtained. This CT examination was performed using dose optimization techniques as appropriate, variously including the following: *Automated exposure control *Adjustment of mA and/or kV according to patient size (this includes techniques or standardized protocols for targeted exams where dose is matched to indication/reason for exam; i.e. extremities or head) *Use of iterative reconstruction technique DLP: 416 mGy-cm FINDINGS: LUNGS: There is bilateral lower lobe compressive atelectasis adjacent to the pleural effusions, left greater than right. The lungs are otherwise clear. MEDIASTINUM: The mediastinum is normal. No pericardial effusion. CORONARY ARTERY CALCIFICATION: None visualized on this study. PLEURA: Small bilateral pleural effusions. No pneumothorax. AXILLA: No lymphadenopathy. Mild gynecomastia. UPPER ABDOMEN: Cirrhotic appearing liver, small amount of ascites and varices. The spleen may be enlarged. OSSEOUS STRUCTURES: Degenerative changes of the spine. CT/CT chest w IV con IMPRESSION: Bilateral pleural effusions and adjacent lower lobe compressive atelectasis, left greater than right. No pericardial effusion. Fleischner guidelines were followed.
[2022-04-19] MEDS: iohexoL 350 MG/ML 100 ML INFUS..BTL IV (10:57)
== END 2022-04-19 08:37 | disposition home or self-care (01) ==
LOC: HO.CT 08:36
PROVIDERS: PCP Internal Medicine; Visit Provider Internal Medicine
DX: I31.39 Other pericardial effusion (noninflammatory) (principal)
CPT/HCPCS: 71260; Q9967

== ENCOUNTER → 2022-05-04 09:27 | Outpatient (BNVA) | payer MEDICAID, SELFPAY | PROVIDERS: PCP Internal Medicine; Visit Provider Hospitalist | DX: J94.8 Other specified pleural conditions (principal); J90 Pleural effusion, not elsewhere classified; R06.00 Dyspnea, unspecified; R00.0 Tachycardia, unspecified; K70.30 Alcoholic cirrhosis of liver without ascites | CPT/HCPCS: 94618; 99212 ==

== ENCOUNTER 2022-05-06 06:55 | Outpatient (REF) | payer MEDICAID, SELFPAY ==
--- NOTE | ~2022-05-06 | XR_ITS ---
EXAMINATION: XR CHEST CLINICAL INFORMATION: Dyspnea. COMPARISON: CT of the chest 04/19/2022 and chest radiograph 02/20/2022. TECHNIQUE: 2 views of the chest were obtained. FINDINGS: The heart and pulmonary vessels appear normal. Since the prior chest radiograph, there has been a decrease in size of a previously seen right pleural effusion with only a small effusion remaining. There is a new small to moderate-sized left pleural effusion present. When comparison is made to the more recent CT scan, comparison between modalities is difficult but I suspect findings are unchanged. XR/XR chest 2V IMPRESSION: Bilateral pleural effusions, decreased in size on the right and increased in size on the left.
[2022-05-06 07:12] LABS: MANUAL DIFF FLAG NO
[2022-05-06 07:57] LABS: D Dimer High Sensitivity 2101 NG/ML
[2022-05-06 08:19] LABS: Basophils Absolute Auto 0.1 X10*3/uL (0.0-0.2); Basophils Percent Auto 1.3 % (0-2); Eosinophils Absolute Auto 0.1 X10*3/uL (0.0-0.4); Eosinophils Percent Auto 1.9 % (0-4); Hemoglobin 11.9 g/dl (14.0-18.0); Imm Gran Abs Auto 0.06 X10*3/uL (0.00-0.03); Imm Gran Pct Auto 0.9 % (0.0-0.4); Lymphocytes Absolute Auto 1.2 X10*3/uL (1.2-4.9); Lymphocytes Percent Auto 17.5 % (20-40); Mean Corpuscular Hemoglobin 34.6 pg (27.0-33.0); Mean Corpuscular Volume 101.7 fL (80.0-98.0); Mean Platelet Volume 9.6 fL (9.4-12.4); Monocytes Absolute Auto 1.2 X10*3/uL (0.1-1.2); Monocytes Percent Auto 16.6 % (2-11); Neutrophils Absolute Auto 4.3 x10*3/uL (2.0-8.3); Neutrophils Percent Auto 61.8 % (45-73); Platelet Count 174 X10*3/uL (160-400); Red Blood Count 3.44 X10*6/uL (4.60-5.80); Red Cell Distribution Width 13.3 % (11.0-16.0)
[2022-05-06 08:21] LABS: Alanine Aminotransferase 27 U/L (0-40); Alkaline Phosphatase 394 U/L (39-117); Anion Gap 15 (12-20); Aspartate Amino Transferase 77 U/L (5-37); Bilirubin Direct 3.1 mg/dL (0.0-0.5); Bilirubin Total 4.1 mg/dL (0.0-1.0); Blood Urea Nitrogen 6 mg/dL (9-16); Calcium 8.9 mg/dL (8.4-10.2); Carbon Dioxide 24 mmol/L (22-29); Chloride 102 mmol/L (96-108); Estimated Glomerular Filt Rate > 60; Glucose Random 120 mg/dL (60-115); Potassium 4.8 mmol/L (3.3-5.1); Sodium 136 mmol/L (135-145); Total Protein 7.2 g/dL (6.5-8.0); Troponin-I High Sensitivity < 3.5 ng/L (<3.5-35.0)
[2022-05-06 09:15] LABS: Erythrocyte Sedimentation Rate 73 MM/HR (0-15)
== END 2022-05-06 06:56 | disposition home or self-care (01) ==
LOC: HO.XRAY 06:55
PROVIDERS: PCP Internal Medicine; Visit Provider Hospitalist
DX: R06.00 Dyspnea, unspecified (principal); R16.0 Hepatomegaly, not elsewhere classified; K74.60 Unspecified cirrhosis of liver
CPT/HCPCS: 36415; 71046; 80048; 80076; 84484; 85025; 85379; 85652

== ENCOUNTER → 2022-05-15 07:28 | Outpatient (REF) | payer MEDICAID, SELFPAY ==
--- NOTE | ~2022-05-15 | NM_ITS ---
EXAMINATION: NM LUNG IMAGE PERFUSION CLINICAL INFORMATION: Dyspnea COMPARISON: Chest x-ray dated 05/15/2022 TECHNIQUE: 4 mCi technetium MAA intravenous injection. Images obtained in various obliquities over the lung mathews FINDINGS: There is some mild blunting of the posterior and medial left costophrenic angle and the chest x-ray demonstrates an effusion in the region. The perfusion defect appears less than the chest x-ray effusion. Otherwise fairly uniform distribution of the radionuclide. NM/WV pul perfusion IMPRESSION: Findings as described above. I believe constellation of findings suggest a low probability for pulmonary embolism.
--- NOTE | ~2022-05-15 | XR_ITS ---
EXAMINATION: XR CHEST CLINICAL INFORMATION: Dyspnea. Positive d-dimer. History of pleural effusion. COMPARISON: Previous chest x-ray most recent 05/06/2022 TECHNIQUE: 2 views of the chest were obtained. FINDINGS: The cardiac and mediastinal contours are stable. There is a small to moderate left pleural effusion. This is minimally increased from most recent exam 05/06/2022. There is a small right pleural effusion. There is adjacent left lower lobe atelectasis. The lungs are otherwise clear. There is no pneumothorax. Mild degenerative changes of the spine. XR/XR chest 2V IMPRESSION: [id number] left pleural effusion minimally increased from 05/06/2022 and adjacent left lower lobe atelectasis. Very small right pleural effusion.
== END ==
LOC: HO.NUCMED 07:28
PROVIDERS: PCP Internal Medicine; Visit Provider Hospitalist
DX: R06.00 Dyspnea, unspecified (principal); R78.89 Finding of other specified substances, not normally found in blood
CPT/HCPCS: 71046; 78580; A9540

== ENCOUNTER → 2022-05-25 11:42 | Outpatient (REF) | payer MEDICAID, SELFPAY ==
--- NOTE | 2022-05-25 11:45 | CA_ITS ---
Transthoracic Echocardiogram Patient (Last, First, Middle): Akash Barboza J Gender: Male Date of : 1965 Age: 56 Procedure Date: 05/25/2022 Procedure Type: Transthoracic Echocardiogram Location: OP Height: 195.58 cm Weight: 107.5 kg BSA: 2.40 m2 Heart Rate: bpm BP: 134 / 94 mmHg Sign Painter: COLLEEN Referring MD: Nawaf Alvarez MD Yarn Dumper: Mariusz Vasquez MD Symptoms: I31.39 - Other pericardial effusion (noninflammatory) Study Quality: Fair ECG Rhythm: Sinus Conclusions: - 1. Technically very limited study 2. On off axis views left ventricular systolic function appears normal 3. No significant pericardial effusion noted with normal IVC size and collapsibility Findings Left Ventricle The left ventricle was not well visualized. Regional wall motion abnormalities can not be excluded due to suboptimal endocardial definition. Diastolic function is indeterminate on the basis of available data. left ventricle is not well visualized and on off axis views LV systolic function appears to be normal. Right Ventricle The right ventricle was not well visualized. Atria The left atrium is normal in size. Interatrial shunt cannot be excluded. The right atrium was not well visualized. Aortic Valve The aortic valve was not well visualized. Mitral Valve The mitral valve was not well visualized. There is trace mitral valve regurgitation. There is no mitral valve stenosis. Pulmonic Valve The pulmonic valve was not well visualized. Tricuspid Valve Likely normal tricuspid valve structure and function. There is trace tricuspid valve regurgitation. The right ventricular systolic pressure is normal. Normal right atrial pressure. Great Vessels The aorta was not well visualized. The pulmonary artery was not well visualized. Venous The inferior vena cava is normal in size and collapses greater than 50% with inspiration. Pericardium/Pleural The pericardium was not well visualized. However I do not appreciate any large pericardial effusion. IVC size is normal with normal respiratory variation. There is tricuspid inflow variation with respiration which could be seen in patients with COPD. Measurements Tricuspid Valve TR Pk Atul: 2.32 TR Pk Grad: 22.00 RA Press: 3.00 RVSP: 25.00 Updated in Other Vendor System with Status of Final Mariusz Vasquez MD electronically signed on 05/25/2022 1:53:45 PM with status of Final
== END ==
LOC: HO.CARD 11:42
PROVIDERS: PCP Internal Medicine; Visit Provider Hospitalist
DX: I31.39 Other pericardial effusion (noninflammatory) (principal)
CPT/HCPCS: 93308

== ENCOUNTER 2022-05-29 | Outpatient (REF) | payer MEDICAID, SELFPAY | END 2022-05-29 00:01 | disposition home or self-care (01) | LOC: CF | PROVIDERS: PCP Internal Medicine; Visit Provider Hospitalist | DX: J90 Pleural effusion, not elsewhere classified (principal); J94.8 Other specified pleural conditions; R00.0 Tachycardia, unspecified; R06.00 Dyspnea, unspecified; I31.39 Other pericardial effusion (noninflammatory); K70.30 Alcoholic cirrhosis of liver without ascites | CPT/HCPCS: 93308; 99212 ==

== ENCOUNTER 2022-05-29 08:50 | Day surgery (SDC) | payer MEDICAID, SELFPAY ==
--- NOTE | ~2022-05-29 | XR_ITS ---
EXAMINATION: XR CHEST CLINICAL INFORMATION: Post left thoracentesis COMPARISON: Previous chest x-ray most recent April 2021 TECHNIQUE: Frontal view of the chest was obtained. FINDINGS: The cardiac and mediastinal contours are stable. The lungs are clear. There is no pleural effusion. There is no pneumothorax post left thoracentesis. There are degenerative changes of the spine. XR/XR chest 1V IMPRESSION: No pneumothorax post left thoracentesis.
--- NOTE | ~2022-05-29 | US_ITS ---
EXAMINATION: ULTRASOUND-GUIDED THORACENTESIS CLINICAL INFORMATION: Left pleural effusion COMPARISON: Previous chest x-ray most recent April 2021 TECHNIQUE: Procedure and risks and benefits including bleeding, infection and pneumothorax were discussed with the patient and informed consent was obtained. The left posterior lateral chest was prepped and draped in the usual sterile fashion. The skin and soft tissues were anesthetized with 1% lidocaine plain. Using ultrasound guidance and a 4 Italian catheter, access to the left pleural effusion was obtained. 600 mL of bloody fluid was removed. Diagnostic specimen was sent. FINDINGS: There is a moderate sized left pleural effusion. US/US drain thoracentesis IMPRESSION: Ultrasound-guided left thoracentesis.
[2022-05-29 09:08] VITALS: BMI 28.2
[2022-05-29 09:24] LABS: MANUAL DIFF FLAG NO
[2022-05-29 09:28] LABS: Basophils Absolute Auto 0.1 X10*3/uL (0.0-0.2); Basophils Percent Auto 0.6 % (0-2); Eosinophils Absolute Auto 0.1 X10*3/uL (0.0-0.4); Eosinophils Percent Auto 0.8 % (0-4); Hemoglobin 12.8 g/dl (14.0-18.0); Imm Gran Pct Auto 1.7 % (0.0-0.4); Lymphocytes Absolute Auto 1.6 X10*3/uL (1.2-4.9); Lymphocytes Percent Auto 13.6 % (20-40); Mean Corpuscular HGB Conc 34.6 g/dl (31.0-36.0); Mean Corpuscular Hemoglobin 34.3 pg (27.0-33.0); Mean Corpuscular Volume 99.2 fL (80.0-98.0); Monocytes Absolute Auto 1.4 X10*3/uL (0.1-1.2); Monocytes Percent Auto 12.5 % (2-11); Neutrophils Absolute Auto 8.1 x10*3/uL (2.0-8.3); Neutrophils Percent Auto 70.8 % (45-73); Platelet Count 183 X10*3/uL (160-400); Red Blood Count 3.73 X10*6/uL (4.60-5.80); Red Cell Distribution Width 12.9 % (11.0-16.0); White Blood Count 11.5 X10*3/uL (4.8-10.8)
[2022-05-29 09:39] LABS: INTERNATIONAL NORM RATIO 1.3 (0.9-1.1); Prothrombin Time 14.8 SEC (10.0-13.1)
[2022-05-29 09:42] LABS: Partial Thromboplastin Time 28.6 SEC (26.0-36.4)
--- NOTE | 2022-05-29 11:24 | HO.RADPN ---
RADIOLOGY Narrative Narrative: US guided left thoracentesis using 4 fr catheter. 600 mL bloody fluid removed. Diagnostic specimen sent . CXR pending.
[2022-05-29 11:48] VITALS: BP 137/86; PULSE 104; RESP 24; TEMP 37.7; O2SAT 96
[2022-05-29 12:03] VITALS: BP 134/85; PULSE 104; RESP 22; TEMP 37.4; O2SAT 95
[2022-05-29 12:20] VITALS: BP 150/92; PULSE 105; RESP 22; O2SAT 95
[2022-05-29 12:32] LABS: MN% 84.5 %; PMN% 15.5 %; RBC Pleural Fluid 0.204 X10*3/uL
[2022-05-29 12:34] VITALS: BP 143/86; PULSE 103; RESP 20; O2SAT 96
[2022-05-29] MEDS: Lidocaine HCl 1 % MPF 5 ML VIAL 10 ML SUBCUT (12:41)
[2022-05-29 12:49] VITALS: BP 136/82; PULSE 106; RESP 20; O2SAT 96
[2022-05-29 13:57] LABS: Lymphocytes Pleural Fluid 20 %; Neutrophils Pleural Fluid 14 %
[2022-05-29 13:58] LABS: BF Shift QC OK YES; Basophils Pleural Fluid 0 %; Eosinophils Pleural Fluid 1 %; Man Diluent Bkgrd OK YES; Monocytes Pleural Fluid 1 %; Other Cells Plerual Fl 64 %
[2022-05-29 17:22] LABS: pH Pleural Fluid 7.43
[2022-05-29 17:35] LABS: LDH Pleural Fluid 156 U/L; Total Protein Pleural Fluid 3.8 GM/DL
== END 2022-05-29 13:03 | disposition home or self-care (01) ==
PROVIDERS: Hospitalist; Radiology Diagnostic Radiology; PCP Internal Medicine; Visit Provider Radiology Diagnostic Radiology
DX: J90 Pleural effusion, not elsewhere classified (principal); K70.30 Alcoholic cirrhosis of liver without ascites; J94.8 Other specified pleural conditions; I31.39 Other pericardial effusion (noninflammatory); R06.00 Dyspnea, unspecified; R00.0 Tachycardia, unspecified; Z79.899 Other long term (current) drug therapy; F17.210 Nicotine dependence, cigarettes, uncomplicated; F12.90 Cannabis use, unspecified, uncomplicated
CPT/HCPCS: 32557; 36415; 71045; 83615; 83986; 84157; 85025; 85610; 85730; 87070; 87073; 87205; 88112; 89051

== ENCOUNTER 2022-06-02 05:31 | Inpatient (IN) | payer MEDICAID, SELFPAY ==
[2022-06-02] VITALS (12 sets, daily range): BP systolic 134–164; BP diastolic 88–110; PULSE 105–120; RESP 16–24; TEMP 36.6–37; O2SAT 92–97; BMI 28.4
--- NOTE | 2022-06-02 | ECG_ITS ---
Test Reason : chest pain Blood Pressure : / mmHG Vent. Rate : 119 BPM Atrial Rate : 119 BPM P-R Int : 158 ms QRS Dur : 084 ms QT Int : 336 ms P-R-T Axes : 064 043 050 degrees QTc Int : 472 ms Sinus tachycardia Otherwise normal ECG When compared with ECG of 05-FEB-2022 07:16, No significant change was found Referred By: Generic ED Physician Electronically Signed By:KEVEN ZAMORANO MD
--- NOTE | ~2022-06-02 | CT_ITS ---
EXAMINATION: CT ABDOMEN AND PELVIS WITH CONTRAST CLINICAL INFORMATION: Left-sided abdominal pain and elevated lipase. COMPARISON: Abdominal ultrasound dated 04/07/2022, MRI dated 08/18/[address] scan of the abdomen and pelvis dated 08/10/2021. TECHNIQUE: Multidetector volumetric images were obtained from the superior aspect of the liver through the pubic symphysis following administration 85 mL of Omnipaque 350 intravenous contrast. Sagittal and coronal reformatted images were obtained on the technologist's workstation. Oral contrast: No This CT examination was performed using dose optimization techniques as appropriate, variously including the following: *Automated exposure control *Adjustment of mA and/or kV according to patient size (this includes techniques or standardized protocols for targeted exams where dose is matched to indication/reason for exam; i.e. extremities or head) *Use of iterative reconstruction technique DLP: 718 mGy-cm FINDINGS: LUNG BASES: Small bilateral pleural effusions with adjacent atelectasis, left greater than right. No pericardial effusion. LIVER, GALLBLADDER, AND BILIARY TREE: Hepatic cirrhosis and steatosis without focal abnormality. No gallbladder/biliary abnormality. Upper abdominal varices and enlarged peripancreatic/periportal lymph nodes with similar appearance. PANCREAS: Mild pancreatic head atrophy with persistent peripancreatic infiltrative changes most pronounced from the head. No pancreatic ductal dilatation. SPLEEN: 17.1 cm without focal abnormality. ADRENAL GLANDS: Unremarkable. KIDNEYS AND URETERS: Right kidney interpolar cyst without significant change measuring 2.0 cm in transverse dimension (image 43, series 2). No nephrolithiasis or hydroureteronephrosis. BLADDER: Unremarkable. GASTROINTESTINAL TRACT: The stomach and small bowel unremarkable. The ileocolonic anastomosis appears intact without abnormality. The distal colon and rectum are unremarkable. ABDOMINAL WALL: Very small fat-containing left inguinal hernia without associated abnormality or change. LYMPH NODES: Normal. VASCULAR: Unremarkable. PELVIC VISCERA: Unremarkable. Mild free fluid. OSSEOUS STRUCTURES: Unremarkable. CT/CT abdomen pelvis w IV con IMPRESSION: 1. Hepatic cirrhosis with sequelae of portal hypertension without significant change. 2.. Pancreatic infiltrative changes most pronounced most pronounced around the pancreatic head is similar to previous studies. Adjacent mildly enlarged lymph nodes are likely reactive to this process. This suggests sequelae of chronic pancreatitis however, an acute on chronic pancreatitis cannot be excluded. No evidence for pancreatic necrosis or pseudocyst formation. 3. Small bilateral pleural effusions represent interval increase in the previous study.
--- NOTE | ~2022-06-02 | XR_ITS ---
EXAMINATION: XR CHEST CLINICAL INFORMATION: Order breath COMPARISON: 05/29/2022 TECHNIQUE: 2 views of the chest were obtained. FINDINGS: Cardiac leads overlie the chest. The lungs are well expanded. Small left-sided pleural effusion. This is new from prior. No dense consolidation. No edema. No pneumothorax. The cardiomediastinal silhouette is within normal limits. No acute osseous abnormality. XR/XR chest 2V IMPRESSION: Small left-sided pleural effusion is new from prior.
[2022-06-02 06:14] LABS: Basophils Absolute Auto 0.1 X10*3/uL (0.0-0.2); Basophils Percent Auto 0.6 % (0-2); Eosinophils Absolute Auto 0.2 X10*3/uL (0.0-0.4); Eosinophils Percent Auto 1.3 % (0-4); Hematocrit 43.5 % (42.0-52.0); Hemoglobin 15.1 g/dl (14.0-18.0); Imm Gran Abs Auto 0.22 X10*3/uL (0.00-0.03); Imm Gran Pct Auto 1.5 % (0.0-0.4); Lymphocytes Absolute Auto 1.8 X10*3/uL (1.2-4.9); Lymphocytes Percent Auto 12.5 % (20-40); MANUAL DIFF FLAG SCAN; Mean Corpuscular HGB Conc 34.7 g/dl (31.0-36.0); Mean Corpuscular Hemoglobin 33.3 pg (27.0-33.0); Mean Corpuscular Volume 95.8 fL (80.0-98.0); Monocytes Absolute Auto 1.7 X10*3/uL (0.1-1.2); Monocytes Percent Auto 11.6 % (2-11); Neutrophils Absolute Auto 10.4 x10*3/uL (2.0-8.3); Neutrophils Percent Auto 72.5 % (45-73); Platelet Count 251 X10*3/uL (160-400); Red Blood Count 4.54 X10*6/uL (4.60-5.80); SCAN SMEAR FLAG 1; White Blood Count 14.4 X10*3/uL (4.8-10.8)
[2022-06-02 06:29] LABS: Alanine Aminotransferase 39 U/L (0-40); Albumin Level 3.4 g/dL (3.5-5.0); Alkaline Phosphatase 352 U/L (39-117); Anion Gap 18 (12-20); Aspartate Amino Transferase 69 U/L (5-37); Bilirubin Total 6.2 mg/dL (0.0-1.0); Blood Urea Nitrogen 19 mg/dL (9-16); Calcium 9.6 mg/dL (8.4-10.2); Carbon Dioxide 25 mmol/L (22-29); Chloride 93 mmol/L (96-108); Creatinine Clr Calc Pharmacy 136.3; Estimated Glomerular Filt Rate > 60; Glucose Fasting 197 mg/dL (60-99); Potassium 3.9 mmol/L (3.3-5.1); Sodium 132 mmol/L (135-145); Total Protein 8.1 g/dL (6.5-8.0)
[2022-06-02 06:36] LABS: SLIDE REVIEW VERIFIED
[2022-06-02 06:41] LABS: Influenza A PCR NEGATIVE (Negative); Influenza B PCR NEGATIVE (Negative); Resp Syncy Virus RNA Qual PCR NEGATIVE (Negative); SARS COV2 PCR INHOUSE NEGATIVE (Negative)
[2022-06-02 07:59] LABS: Lipase 221 U/L (8-78)
[2022-06-02] MEDS: ondansetron HCL 4 MG/2 ML VIAL IVPUSH (08:47)
[2022-06-02] MEDS: Morphine Sulfate 4 MG/ML CARTRIDGE IVPUSH ×2 (08:47→14:52)
[2022-06-02] MEDS: 0.9 % Sodium Chloride 500 ML 999 ML IV (08:47)
[2022-06-02] MEDS: iohexoL 350 MG/ML 100 ML INFUS..BTL 85 ML IV (08:51)
--- NOTE | 2022-06-02 08:54 | ED_ITS ---
HPI - SOB/Dyspnea General Chief Complaint: Dyspnea Stated Complaint: SoB, has cirrhosis Time Seen by Provider: 06/02/22 08:04 Source: patient Mode of arrival: ambulatory Limitations: no limitations History of Present Illness HPI Narrative: This is a 56-year-old male who has a history of liver cirrhosis secondary to alcohol use, recurrent pleural effusion who presents today with acute on chronic shortness of breath, chest and abdominal pain. Patient reports he gets thoracentesis is about every 2 weeks. He did have when on 05/29 left pleural effusion and has been having intermittent shortness of breath for several months. He reports the last day he has had nausea, poor p.o. intake and left- sided abdominal pain which radiates the left side of the chest. He denies any vomiting, diarrhea, fevers, urinary symptoms. Patient reports history of pancreatitis and states this feels similar. Patient tells me he has not had any alcoholic beverages and more than 3 months. Related Data Home Medications Medication Instructions Recorded Confirmed bupropion HCl 300 mg 24 hr tablet, 300 mg PO DAILY 06/10/21 06/02/22 extended release folic acid 1 mg tablet 1 mg PO DAILY 06/10/21 06/02/22 thiamine HCl (vitamin B1) 100 mg 100 mg PO DAILY 06/10/21 06/02/22 tablet omeprazole 40 mg capsule,delayed 1 cap PO DAILY 08/10/21 06/02/22 release paroxetine HCl 20 mg tablet 1 tab PO DAILY 08/10/21 06/02/22 meclizine 12.5 mg tablet 1 tab PO TID PRN Dizziness 12/06/21 06/02/22 albuterol sulfate 90 mcg/actuation 1 - 2 puff inhalation Q4-6H PRN 01/26/22 06/02/22 aerosol inhaler (ProAir HFA) Shortness Of Breath hydroxyzine pamoate 25 mg capsule 25 - 50 mg PO DAILY 01/26/22 06/02/22 lactulose 10 gram/15 mL oral 30 ml PO TID 03/08/22 06/02/22 solution Previous Rx's Medication Instructions Recorded imipramine HCl 50 mg tablet 50 mg PO BEDTIME #30 tabs 09/16/21 rifaximin 550 mg tablet (Xifaxan) 550 mg PO BID #60 tabs 09/16/21 nicotine (polacrilex) 2 mg gum 2 mg buccal Q2H #100 ea 11/03/21 cnpkdy-olmwdleu-zgrpank 1 cap PO TID #90 caps 02/28/22 24,000-76,000-120,000 unit capsule,delayed rel (Creon) furosemide 40 mg tablet 80 mg PO DAILY #60 tabs 04/19/22 spironolactone 100 mg tablet 200 mg PO DAILY #60 tabs 04/19/22 doxycycline hyclate 100 mg capsule 100 mg PO BID 10 days #20 caps 05/25/22 prednisone 20 mg tablet See Rx Instructions PO DAILY 10 05/25/22 days #15 tabs Allergies Allergy/AdvReac Type Severity Reaction Status Date / Time No Known Drug Allergies Allergy Mild NONE Verified 05/25/22 10:29 [NO KNOWN DRUG ALLERGIES] Review of Systems Review of Systems: Yes all other systems are reviewed and are negative Constitutional: Constitutional: Reports no additional constitutional complaints, Denies body ache(s), Denies chills, Denies fever(s), Denies headache(s), Reports poor appetite and Denies weakness Eyes: Eyes: Reports no additional eye complaints and Denies change in vision ENT: Reports system reviewed and no additional complaints, except as documented, Denies dizziness, Denies headache(s), Denies nasal congestion, Denies nasal discharge and Denies neck pain Cardiovascular: Cardiovascular: Reports no additional cardiovascular complaints, Reports chest pain, Denies leg edema and Reports dyspnea Respiratory: Respiratory: Reports no additional respiratory complaints, Denies cough and Reports dyspnea Gastrointestinal: Gastrointestinal: Reports no additional gastrointestinal complaints, Reports abdominal pain, Denies diarrhea, Denies nausea and Denies vomiting Genitourinary: Genitourinary: Denies urinary incontinence Musculoskeletal: Musculoskeletal: Reports no additional musculoskeletal complaints, Denies back pain, Denies arthralgias, Denies joint swelling, Denies neck pain, Denies numbness and Denies tingling Integumentary/Breasts: Skin/Breast: Reports system reviewed and no additional complaints, except as docu and Denies rash Neurologic: Reports system reviewed and no additional complaints, except as documented, Denies Abnormal speech present, Denies dizziness, Denies headache(s), Denies numbness, Denies tingling and Denies weakness PMF Past Medical History Attestation statement: The following information was validated with the patient. Source: old records reviewed and nursing notes reviewed Medical History Alcoholism Chronic abdominal pain Cirrhosis Dyspnea Dyspnea Elevated LFTs GERD (gastroesophageal reflux disease) Gout Hydropneumothorax Pericardial effusion Pleural effusion Pleural effusion on right Tachycardia Surgical History H/O cervical spine surgery H/O colonoscopy H/O hemicolectomy Family History Family History Mother Cancer Social History Social History Household Members: Other Household Members Other:: roommate Housing: Apartment Do you presently have visiting nurse or other home services: No Alcohol intake: former Patient Tobacco Use Status: Current everyday Tobacco user Tobacco use type: Cigarette Cigarettes Per Day: 3 Years Smoked: 30 Smoked in Last 30 Days: Yes Second Hand Smoke Exposure: No Use of substances other than those prescribed or required for medical reasons: Yes Substance Use Type: Marijuana Advance Directives: No Advance Directives Information Provided: Yes service: No Current occupational status: unemployed Physical Exam Vital Signs: Vital Signs: Last Vital Signs Temp 98.0 F 06/02/22 11:06 Pulse 109 H 06/02/22 11:06 Resp 20 06/02/22 11:06 BP 146/96 H 06/02/22 11:06 Pulse Ox 93 06/02/22 11:06 O2 Del Method 06/02/22 11:06 BMI result Body Mass Index 28.4 Const: General: cooperative, healthy appearing, comfortable and no acute distress Orientation/consciousness: patient oriented x3 Limitations: no limitations HEENT: Head: Yes normal to inspection Ears: hearing grossly normal bilaterally and TM's normal bilaterally General nose exam: Normal external nose present Face and sinus: Yes normal facial exam Mouth: Normal oral and palatal mucosa present Throat: Yes posterior oropharynx normal, Yes tonsils normal and Yes uvula midline Eyes: General: appearance normal, both eyes and all related structures Pupils: Equal, round and reactive pupils present Neck: Neck: Yes normal visual inspection Chest: Chest palpation & inspection: normal inspection of the chest Resp: Other: Mild tachypnea with rate of 24 Auscultation: clear to auscultation bilaterally Cardio: Rate: regular rate Rhythm: regular rhythm Peripheral pulses: Peripheral pulses 2+ throughout GI: Inspection: Yes normal to inspection Palpation (GI): Soft to palpation and Tenderness to palpation present (GI) (Tender over the left abdomen-no rebound or guarding) Auscultation: normal bowel sounds Back/Spine/Pelvis: Thoracic/Lumbar Spine: thoracic and lumbar spine normal to inspection Skin: General skin exam: no rashes or lesions noted Neuro: General: patient oriented x3, no focal motor deficits and normal sensation to monofilament Cranial nerves: Yes Equal, round and reactive pupils present Cognition (Neuro): normal cognition Speech: No Abnormal speech present Gait exam (Neuro): Normal gait present Motor exam (neuro): 5/5 motor strength present throughout Extrem: General: Yes normal to inspection, Yes no pedal edema and Yes no calf tenderness Course Course Course Narrative: CXR FINDINGS: Cardiac leads overlie the chest. The lungs are well expanded. Small left-sided pleural effusion. This is new from prior. No dense consolidation. No edema. No pneumothorax. The cardiomediastinal silhouette is within normal limits. No acute osseous abnormality. XR/XR chest 2V IMPRESSION: Small left-sided pleural effusion is new from prior. ? Reevaluation(s) Reevaluation #1: CT shows IMPRESSION: 1. Hepatic cirrhosis with sequelae of portal hypertension without significant change. 2.. Pancreatic infiltrative changes most pronounced most pronounced around the pancreatic head is similar to previous studies. Adjacent mildly enlarged lymph nodes are likely reactive to this process. This suggests sequelae of chronic pancreatitis however, an acute on chronic pancreatitis cannot be excluded. No evidence for pancreatic necrosis or pseudocyst formation. 3. Small bilateral pleural effusions represent interval increase in the previous study. -patient w/ leukocytosis. Continued nausea and pain despite IV pain control. Will need admission. Medications Administered Generic Name Dose Route Start Last Admin Trade Name Freq PRN Reason Stop Dose Admin Lactulose 20 gm 06/02/22 15:00 06/02/22 13:42 Lactulose 20 Gm/30 Ml Solution PO 20 gm TID RYAN Administration Nicotine Polacrilex 2 mg 06/02/22 13:15 06/02/22 13:42 Nicotine Polacrilex 2 Mg Gum BUCCAL 2 mg Q2H RYAN Administration Discontinued Medications Generic Name Dose Route Start Last Admin Trade Name Freq PRN Reason Stop Dose Admin Hydromorphone HCl 0.5 mg 06/02/22 10:18 06/02/22 10:35 Hydromorphone Hcl 0.5 Mg/0.5 Ml Syringe IVPUSH 06/02/22 10:19 0.5 mg ONCE ONE Administration Protocol Sodium Chloride 500 mls @ 999 mls/hr 06/02/22 08:46 06/02/22 13:43 Ns IV 06/02/22 09:16 Infused .Q31M STA Infusion Iohexol 85 ml 06/02/22 08:50 06/02/22 08:51 Iohexol 350 Mg/Ml 100 Ml Infus..Btl IV 06/02/22 08:51 85 ml ONCE ONE Administration Morphine Sulfate 4 mg 06/02/22 08:18 06/02/22 08:47 Morphine Sulfate 4 Mg/Ml Cartridge IVPUSH 06/02/22 08:19 4 mg ONCE ONE Administration Protocol Ondansetron HCl 4 mg 06/02/22 08:18 06/02/22 08:47 Ondansetron Hcl 4 Mg/2 Ml Vial IVPUSH 06/02/22 08:19 4 mg ONCE ONE Administration Medical Decision Making Medical Decision Making MDM Narrative: This is a 56-year-old male with a history of chronic liver cirrhosis, recurrent pleural effusion requiring thoracentesis, pancreatitis here with complaints of left-sided abdominal pain with radiation to the left chest the last few days with nausea, poor p.o. intake. Patient also complaining of chronic shortness of breath with most recent thoracentesis on May 29. Will check labs, EKG, chest x-ray, COVID screen. May need CT Differential Diagnoses: Differential diagnosis (ACS, pneumonia, pleural effusio n, pancreatitis) Independent interpretation of EKG, rhythm strip, radiology study: Independent interp EKG,rhythm strip, radiology study I performed an independent interpretation of the: EKG and Plain X-Ray (small left sided pleural effusion) My interpretation is sinus tachycardia with rate of 119, normal OH, normal QRS, normal QT-interpreted by Dr Rouse Discharge Plan Discharge Clinical Impression: Acute pancreatitis, Leukocytosis Patient Disposition: Admitted As Inpatient
[2022-06-02 09:25] LABS: Lactic Acid 1.7 mmol/L (0.5-2.0)
[2022-06-02 09:30] LABS: Troponin-I High Sensitivity 4.7 ng/L (<3.5-35.0)
[2022-06-02] MEDS: HYDROmorphone HCl 0.5 MG/0.5 ML SYRINGE IVPUSH ×3 (10:35→20:49)
[2022-06-02 11:09] LABS: Lactate Dehydrogenase 186 U/L (118-273)
--- NOTE | 2022-06-02 11:21 | PHA.MEDREC ---
Pharmacy Consult ? Medication Reconciliation Pharmacy has completed the medication reconciliation. Patient had a list at bedside
[2022-06-02 12:39] LABS: Appearance Urine Clear; Color Urine Dark Yellow; Glucose Urine UA Negative (Negative); Leukocyte Esterase Urine Trace (Negative); Nitrite Urine Positive (Negative); PH 5.5 (5.0-9.0); Specific Gravity - Urine >= 1.030 (1.005-1.025); UMIC TRIGGER UACC YES; Urine Blood Negative (Negative); Urine Ketones Trace mg/dL (Negative); Urine Protein Trace mg/dL (Neg-Trace)
[2022-06-02 12:51] LABS: Bacteria Urine None Seen (None Seen); Hyaline Casts Urine 0-2 /LPF (0-2); RBC Urine 0-2 /HPF (0-2); Squamous Epithelial Cell Urine 0-2 /HPF (0-2); UACC Culture Trigger YES; WBC Urine 0-5 /HPF (0-5)
--- NOTE | 2022-06-02 13:10 | PM.IMHP ---
History of Present Illness Date of Service: 06/02/22 Attending physician on admission: Jaxon Amaya Chief Complaint: Abdominal pain 56-year-old gentleman with past medical history significant for alcohol-induced cirrhosis, history of portal vein thrombosis not on anticoagulation, history of grade 3 esophageal varices and portal hypertension tensive gastropathy, history of recurrent right pleural effusion requiring thoracocentesis, recently developed left pleural effusion underwent thoracocentesis on 05/29 pleural fluid culture sensitivities negative patient presented to [facility] today due to left upper quadrant abdominal pain with radiation to left upper back associated with nausea no vomiting unable to keep food down due to dry heaving his only had for few sips of soups in last 3 days, Patient denies alcohol use, his last alcoholic drink was 3 months ago but in GI note from March patient was intermittently drinking alcohol, and has refused help with outpatient counseling and referrals, patient denies excessive fatty food intake, denies abdominal trauma, no new medications workup in the emergency room showed an elevated lipase of [address] abdomen and pelvis suggestive of acute on chronic pancreatitis therefore patient is being admitted to [facility] for analgesics, IV fluids Review of Systems Review of Systems: General no headache, has chronic intermittent dizziness, chronically has intermittent hot and cold feeling CVS no chest pain, no palpitation. Respiratory no cough no sob no urinary urgency, no frequency skin no rash, no itching Musculoskeletal no joint pain Yes all other systems are reviewed and are negative [facility] Medical History Alcoholism Chronic abdominal pain Cirrhosis Dyspnea Dyspnea Elevated LFTs GERD (gastroesophageal reflux disease) Gout Hydropneumothorax Pericardial effusion Pleural effusion Pleural effusion on right Tachycardia Family History Mother Cancer Pertinent family history: Not aware of father's history, mother of bone cancer, grandmother had colon cancer age 73, sister had ? colon cancer in her 20s Surgical History H/O cervical spine surgery H/O colonoscopy H/O hemicolectomy Social History Household Members: Other Household Members Other:: roommate Housing: Apartment Do you presently have visiting nurse or other home services: No Alcohol intake: former Patient Tobacco Use Status: Current everyday Tobacco user Tobacco use type: Cigarette Cigarettes Per Day: 3 Years Smoked: 30 Smoked in Last 30 Days: Yes Second Hand Smoke Exposure: No Use of substances other than those prescribed or required for medical reasons: Yes Substance Use Type: Marijuana Advance Directives: No Advance Directives Information Provided: Yes service: No Current occupational status: unemployed Meds Allergies Allergy/AdvReac Type Severity Reaction Status Date / Time No Known Drug Allergies Allergy Mild NONE Verified 05/25/22 10:29 [NO KNOWN DRUG ALLERGIES] Active Medications: Current Medications Bupropion HCl (Bupropion Hcl Xl 300 Mg Tab.Er.24h) 300 mg PO DAILY [facility] Folic Acid (Folic Acid 1 Mg Tablet) 1 mg PO DAILY [facility] Imipramine HCl (Imipramine Hcl 50 Mg Tablet) 50 mg PO BEDTIME [facility] Lactulose (Lactulose 20 Gm/30 Ml Solution) 20 gm PO TID [facility] Meclizine HCl (Meclizine Hcl 12.5 Mg Tablet) 12.5 mg PO TID PRN PRN Reason: Dizziness Nicotine Polacrilex (Nicotine Polacrilex 2 Mg Gum) 2 mg BUCCAL Q2H [facility] Omeprazole (Omeprazole 40 Mg Capsule.Dr) 40 mg PO DAILY@0630 [facility] Paroxetine HCl (Paroxetine Hcl 20 Mg Tablet) 20 mg PO DAILY [facility] Pharmacy Consult (Consult Rx Perform Med Rec) 1 each MISCELLANE ONCE PRN PRN Reason: Consult order Rifaximin (Rifaximin 550 Mg Tablet) 550 mg PO BID [facility] Spironolactone (Spironolactone 25 Mg Tablet) 200 mg PO DAILY [facility]; Protocol Thiamine HCl (Thiamine Hcl 100 Mg Tablet) 100 mg PO DAILY [facility] Home Medications Medication Instructions Recorded Confirmed Last Taken Type bupropion HCl 300 mg 24 hr tablet, 300 mg PO DAILY 06/10/21 06/02/22 12/05/21 History extended release folic acid 1 mg tablet 1 mg PO DAILY 06/10/21 06/02/22 12/05/21 History thiamine HCl (vitamin B1) 100 mg 100 mg PO DAILY 06/10/21 06/02/22 12/05/21 History tablet omeprazole 40 mg capsule,delayed 1 cap PO DAILY 08/10/21 06/02/22 12/05/21 History release paroxetine HCl 20 mg tablet 1 tab PO DAILY 0206/02/22 12/05/21 History meclizine 12.5 mg tablet 1 tab PO TID PRN Dizziness 12/06/21 06/02/22 Unknown History albuterol sulfate 90 mcg/actuation 1 - 2 puff inhalation Q4-6H PRN 01/26/22 06/02/22 Unknown History aerosol inhaler (ProAir HFA) Shortness Of Breath hydroxyzine pamoate 25 mg capsule 25 - 50 mg PO DAILY 01/26/22 06/02/22 Unknown History lactulose 10 gram/15 mL oral 30 ml PO TID 03/08/22 06/02/22 Unknown History solution Physical Exam Vital Signs and Narrative: Vital Signs: Last Vital Signs Temp 98.0 F 06/02/22 11:06 Pulse 109 H 06/02/22 11:06 Resp 20 06/02/22 11:06 BP 146/96 H 06/02/22 11:06 Pulse Ox 93 06/02/22 11:06 O2 Del Method 06/02/22 11:06 BMI result Body Mass Index 28.4 Const: Other: General awake alert, in no acute distress. Icteric sclera Neck is supple no JVD. CVS regular rate rhythm, Respiratory lungs clear to auscultation, no respiratory distress, no wheeze, no rhonchi. Gastrointestinal abdomen soft, distended left upper quadrant tenderness to deep palpation, bowel sounds audible, no guarding , no rigidity. Extremities no edema. Neuro nonfocal patient moving all 4 extremity speech clear. Psych appropriate affect Musculoskeletal no deformity Results Labs CBC and Chem 7: 06/02/22 05:59 06/02/22 05:59 Labs: Laboratory Results - last 24 hr 06/02/22 06/02/22 06/02/22 05:57 05:59 05:59 MCV 95.8 MCH 33.3 H MCHC 34.7 RDW 13.0 Plt Count 251 D MPV 9.0 L Immature Gran % (Auto) 1.5 H Neut % (Auto) 72.5 Lymph % (Auto) 12.5 L [place] % (Auto) 11.6 H Eos % (Auto) 1.3 Baso % (Auto) 0.6 Lymph # (Auto) 1.8 [place] # (Auto) 1.7 H Eos # (Auto) 0.2 Baso # (Auto) 0.1 Abs Immat Gran (auto) 0.22 H Absolute Neuts (auto) 10.4 H Absolute Nucleated RBC 0.000 Nucleated RBC % (auto) 0.0 Smear Tech's Comments VERIFIED Anion Gap 18 Estim Creat Clear Calc 136.3 Estimated GFR > 60 Fasting Glucose 197 H Lactic Acid Calcium 9.6 D Magnesium Total Bilirubin 6.2 H AST 69 H ALT 39 Alkaline Phosphatase 352 H Lactate Dehydrogenase Troponin I High Sens Total Protein 8.1 H Albumin 3.4 L Lipase 221 H Urine Color Urine Appearance Urine pH Ur Specific [place] Urine Protein Urine Glucose (UA) Urine Ketones Urine Blood Urine Nitrite Ur Leukocyte Esterase Urine RBC Urine WBC Ur Squamous Epith Cells Urine Bacteria Hyaline Casts Influenza Type A (PCR) NEGATIVE Influenza Type B (PCR) NEGATIVE RSV RNA Qual (PCR) NEGATIVE SARS-CoV-2 RNA (RT-PCR) NEGATIVE 06/02/22 06/02/22 06/02/22 08:59 09:00 09:00 MCV MCH MCHC RDW Plt Count MPV Immature Gran % (Auto) Neut % (Auto) Lymph % (Auto) [place] % (Auto) Eos % (Auto) Baso % (Auto) Lymph # (Auto) [place] # (Auto) Eos # (Auto) Baso # (Auto) Abs Immat Gran (auto) Absolute Neuts (auto) Absolute Nucleated RBC Nucleated RBC % (auto) Smear Tech's Comments Anion Gap Estim Creat Clear Calc Estimated GFR Fasting Glucose Lactic Acid 1.7 Calcium Magnesium 2.0 Total Bilirubin AST ALT Alkaline Phosphatase Lactate Dehydrogenase 186 Troponin I High Sens 4.7 Total Protein Albumin Lipase Urine Color Urine Appearance Urine pH Ur Specific [place] Urine Protein Urine Glucose (UA) Urine Ketones Urine Blood Urine Nitrite Ur Leukocyte Esterase Urine RBC Urine WBC Ur Squamous Epith Cells Urine Bacteria Hyaline Casts Influenza Type A (PCR) Influenza Type B (PCR) RSV RNA Qual (PCR) SARS-CoV-2 RNA (RT-PCR) 06/02/22 12:27 MCV MCH MCHC RDW Plt Count MPV Immature Gran % (Auto) Neut % (Auto) Lymph % (Auto) [place] % (Auto) Eos % (Auto) Baso % (Auto) Lymph # (Auto) [place] # (Auto) Eos # (Auto) Baso # (Auto) Abs Immat Gran (auto) Absolute Neuts (auto) Absolute Nucleated RBC Nucleated RBC % (auto) Smear Tech's Comments Anion Gap Estim Creat Clear Calc Estimated GFR Fasting Glucose Lactic Acid Calcium Magnesium Total Bilirubin AST ALT Alkaline Phosphatase Lactate Dehydrogenase Troponin I High Sens Total Protein Albumin Lipase Urine Color Dark Yellow Urine Appearance Clear Urine pH 5.5 Ur Specific [place] >= 1.030 H Urine Protein Trace Urine Glucose (UA) Negative Urine Ketones Trace Urine Blood Negative Urine Nitrite Positive H Ur Leukocyte Esterase Trace H Urine RBC 0-2 Urine WBC 0-5 Ur Squamous Epith Cells 0-2 Urine Bacteria None Seen Hyaline Casts 0-2 Influenza Type A (PCR) Influenza Type B (PCR) RSV RNA Qual (PCR) SARS-CoV-2 RNA (RT-PCR) Imaging Radiologist's Impressions: Impressions Chest X-Ray 06/02/22 07:48 IMPRESSION: Small left-sided pleural effusion is new from prior. Abdomen/Pelvis CT 06/02/22 08:40 IMPRESSION: 1. Hepatic cirrhosis with sequelae of portal hypertension without significant change. 2.. Pancreatic infiltrative changes most pronounced most pronounced around the pancreatic head is similar to previous studies. Adjacent mildly enlarged lymph nodes are likely reactive to this process. This suggests sequelae of chronic pancreatitis however, an acute on chronic pancreatitis cannot be excluded. No evidence for pancreatic necrosis or pseudocyst formation. 3. Small bilateral pleural effusions represent interval increase in the previous study. Assessment and Plan (1) Abdominal pain: Qualifiers: Abdominal location: epigastric Qualified Code(s): R10.13 - Epigastric pain Status: Acute Plan 56-year-old gentleman with history of decompensated alcoholic cirrhosis, gastropathy, portal hypertension, esophageal varices, ascites, portal vein thrombosis currently not on anticoagulation, history of COPD, right colectomy presented to [facility] with 3 days of abdominal pain associated with nausea dry heaving unable to keep food down workup in the ER showed elevated WBC, elevated lipase and CT suggestive of acute on chronic pancreatitis Acute on chronic pancreatitis likely due to alcohol use although patient denies recent alcohol use After multiple questions patient admitted he might have by accident drank vodka from his girlfriend's glass No new medications, no abdominal trauma, no viral infection Admitted to medical floor placed on IV fluids, npo IV Dilaudid as needed Will check triglyceride level, follow CBC, lipase Sirs with tachypnea and tachycardia and leukocytosis due to pancreatitis, no sepsis Alcoholic cirrhosis with ascites, portal hypertension, gastropathy, and portal vein thrombosis, strongly recommend to abstain from alcohol Patient on high-dose Lasix and Aldactone at home will hold Lasix while receiving IV fluid Chronically Elevated LFTs Continue lactulose, thiamine, folic acid, PPI, rifaximin and hydroxyzine Patient declined care team eval Tobacco use disorder continue nicotine gum as needed patient currently smoking 2-4 cigarettes a day Mood disorder continue paroxetine and imipramine COPD no acute exacerbation continue as needed albuterol Chronic dizziness continue meclizine Code status full code DVT prophylaxis with compression boots In my clinical opinion patient need two night inpatient stay for acute pancreatitis requiring IV analgesics and IV fluids Quality Stroke Does the patient have a stroke diagnosis?: No VTE Prior VTE?: No VTE Risk Level:: Medical - moderate - high VTE Device Contraindication: N/A - Device Ordered VTE Drug Contraindication: Treatment Not Indicated
[2022-06-02] MEDS: Lactulose 20 GM/30 ML SOLUTION PO ×2 (13:42→20:49)
[2022-06-02] MEDS: Nicotine Polacrilex 2 MG GUM BUCCAL (13:42)
[2022-06-02] MEDS: 0.9 % Sodium Chloride Flush 3 ML SYRINGE IVFLUSH ×2 (14:53→23:36)
[2022-06-02] MEDS: Dextrose 5 % and Lactated Ring 1,000 ML 100 ML IVCONT (15:49)
--- NOTE | 2022-06-02 20:24 | PC.NURSE ---
RN to RN report given to DANIA Cooper. Pt being transferred to [facility].
--- NOTE | 2022-06-02 20:52 | PC.NURSE ---
Care of patient assumed now in overflow. He is alert, oriented x4, being admitted for pancreatitis. He endorses 8-9/10 abdominal pain and is given prn dilaudid for pain control. He is provided with ice chips per request. This RN calls pharmacy to obtain 2 9PM meds. Patient takes PO lactulose without difficulty. Patient provided with call zaidi and is now resting comfortably in stretcher.
[2022-06-02] MEDS: Imipramine HCl 50 MG TABLET PO (21:58)
[2022-06-02] MEDS: rifAXIMin 550 MG TABLET PO (21:58)
--- NOTE | 2022-06-02 22:24 | MHC.CM.PN ---
CM met with admitted patient in overflow with bed assignment pending. A&Ox4. Lives with roommate. No DME/Services. [employer], Pf[employer] x2. HCP at home/PCP office. HCP/sister Tiny Mahajan ([phone]). D/C plan: Home without services. Pt will arrange transport home. CM will follow for d/c planning.
--- NOTE | 2022-06-02 23:40 | PC.NURSE ---
Addendum entered by Argelia Jo RN 06/02/22 23:53: Per MD Sultana, tachycardia secondary to pancreatitis but will consult pharmacy to begin phenobarb protocol PO regardless. Original Note: Patient asleep in stretcher and HR=upper 1teens-120. Patient diaphoretic. He denies acute abdominal pain. Fluids infusing through patent IV. No hx diabetes- BG checked and =184. Patient vague about last time he drank alcohol, admitting maybe several times over the last couple weeks but vague about when/what exactly he was drinking. Vitals obtained, patient afebrile. He denies headache, visual/tactile disturbances. ++diaphoresis. +trace tremors noted. MD Sultana made aware now. Patient has been slighly tachycardic (low 100s) throughout his time in ED, but never documented in upper 1teens-120. He denies chest pain or discomfort.
[2022-06-03 00:12] VITALS: PULSE 110; RESP 18
[2022-06-03] MEDS: PHENobarbitaL sodium 130 MG/ML IM ONCE 221 MG IM (00:34)
[2022-06-03] MEDS: PHENobarbitaL sodium 130 MG/ML VIAL IM Q3Hx2 156 MG IM ×2 (04:11→06:53)
[2022-06-03 05:47] LABS: Glucose, Whole Blood 184 mg/dL (60-115)
[2022-06-03] MEDS: Omeprazole 40 MG CAPSULE.DR PO (05:53)
[2022-06-03] MEDS: Dextrose 5 % and Lactated Ring 1,000 ML 100 ML IVCONT ×2 (05:53→17:31)
[2022-06-03 06:48] VITALS: BP 171/106; PULSE 106; TEMP 36.4; O2SAT 96
[2022-06-03 06:52] VITALS: RESP 17
[2022-06-03] MEDS: HYDROmorphone HCl 0.5 MG/0.5 ML SYRINGE IVPUSH ×4 (06:52→21:36)
[2022-06-03 07:01] LABS: Hematocrit 43.3 % (42.0-52.0); Hemoglobin 14.6 g/dl (14.0-18.0); Mean Corpuscular HGB Conc 33.7 g/dl (31.0-36.0); Mean Corpuscular Hemoglobin 33.3 pg (27.0-33.0); Mean Corpuscular Volume 98.9 fL (80.0-98.0); Mean Platelet Volume 9.5 fL (9.4-12.4); Platelet Count 203 X10*3/uL (160-400); Red Blood Count 4.38 X10*6/uL (4.60-5.80); White Blood Count 11.5 X10*3/uL (4.8-10.8)
[2022-06-03 07:37] LABS: Triglycerides 124 mg/dL
[2022-06-03 07:54] LABS: Alanine Aminotransferase 35 U/L (0-40); Albumin Level 3.2 g/dL (3.5-5.0); Alkaline Phosphatase 314 U/L (39-117); Anion Gap 15 (12-20); Aspartate Amino Transferase 59 U/L (5-37); Bilirubin Direct 4.4 mg/dL (0.0-0.5); Bilirubin Total 7.5 mg/dL (0.0-1.0); Blood Urea Nitrogen 21 mg/dL (9-16); Calcium 9.1 mg/dL (8.4-10.2); Carbon Dioxide 28 mmol/L (22-29); Chloride 95 mmol/L (96-108); Creatinine Clr Calc Pharmacy 152.4; Estimated Glomerular Filt Rate > 60; Glucose Random 175 mg/dL (60-115); Potassium 4.2 mmol/L (3.3-5.1); Sodium 134 mmol/L (135-145); Total Protein 7.7 g/dL (6.5-8.0)
[2022-06-03 08:54] LABS: Lipase 746 U/L (8-78)
[2022-06-03] MEDS: Lactulose 20 GM/30 ML SOLUTION PO ×3 (09:45→21:28)
[2022-06-03] MEDS: Spironolactone 25 MG TABLET 200 MG PO (09:46)
[2022-06-03] MEDS: Thiamine HCL 100 MG TABLET PO (09:46)
[2022-06-03] MEDS: PARoxetine HCL 20 MG TABLET PO (09:46)
[2022-06-03] MEDS: buPROPion HCl XL 300 MG TAB.ER.24H PO (09:46)
[2022-06-03] MEDS: Folic Acid 1 MG TABLET PO (09:46)
[2022-06-03] MEDS: rifAXIMin 550 MG TABLET PO ×2 (09:46→21:50)
--- NOTE | 2022-06-03 09:51 | P.PNIM_ITS ---
Subjective Subjective Date of Service: 06/03/22 Review of Systems Pancreatitis, alcohol abuse Feeling better, epigastric pain comes and goes Denies nausea, vomiting, diarrhea Physical Exam Vital Signs: Vital Signs: Last Vital Signs Temp 97.6 F 06/03/22 06:48 Pulse 106 H 06/03/22 06:48 Resp 17 06/03/22 06:52 BP 171/106 H 06/03/22 06:48 Pulse Ox 96 06/03/22 06:48 O2 Del Method 06/03/22 06:48 BMI result Body Mass Index 28.4 Appearing in no acute distress lung sounds are clear to auscultation heart regular rate rhythm, clear S1, S2 positive bowel sounds, abdomen is soft, nontender, obese abdomen neuro patient is alert x3, no focal deficits Objective Data Active Medications Acetaminophen (Acetaminophen 325 Mg Tablet) 650 mg PO Q6H PRN PRN Reason: Pain, Mild (Pain Scale 1-3) Bupropion HCl (Bupropion Hcl Xl 300 Mg Tab.Er.24h) 300 mg PO DAILY [facility] Last Admin: 06/03/22 09:46 Dose: 300 mg Documented By: SHELLIE Folic Acid (Folic Acid 1 Mg Tablet) 1 mg PO DAILY [facility] Last Admin: 06/03/22 09:46 Dose: 1 mg Documented By: SHELLIE Hydromorphone HCl (Hydromorphone Hcl 0.5 Mg/0.5 Ml Syringe) 0.5 mg IVPUSH Q4H PRN; Protocol PRN Reason: Pain, Severe (Pain Scale 7-10) Last Admin: 06/03/22 06:52 Dose: 0.5 mg Documented By: ROSANGELA Hydroxyzine HCl (Hydroxyzine Hcl 25 Mg Tablet) 25 mg PO Q8H PRN PRN Reason: anxiety Dextrose/Lactated Ringer's (D5lr) 1,000 mls @ 100 mls/hr IVCONT .Q10H [facility] Last Admin: 06/03/22 05:53 Dose: 100 mls/hr Documented By: ROSANGELA Imipramine HCl (Imipramine Hcl 50 Mg Tablet) 50 mg PO BEDTIME [facility] Last Admin: 06/02/22 21:58 Dose: 50 mg Documented By: ROSANGELA Lactulose (Lactulose 20 Gm/30 Ml Solution) 20 gm PO TID [facility] Last Admin: 06/03/22 09:45 Dose: 20 gm Documented By: SHELLIE Meclizine HCl (Meclizine Hcl 12.5 Mg Tablet) 12.5 mg PO TID PRN PRN Reason: Dizziness Nicotine Polacrilex (Nicotine Polacrilex 2 Mg Gum) 2 mg BUCCAL Q2H [facility] Last Admin: 06/03/22 09:35 Dose: Not Given Documented By: SHELLIE Non-Admin Reason: Patient Refused Omeprazole (Omeprazole 40 Mg Capsule.Dr) 40 mg PO DAILY@0630 [facility] Last Admin: 06/03/22 05:53 Dose: 40 mg Documented By: ROSANGELA Paroxetine HCl (Paroxetine Hcl 20 Mg Tablet) 20 mg PO DAILY [facility] Last Admin: 06/03/22 09:46 Dose: 20 mg Documented By: SHELLIE Pharmacy Consult (Consult Rx Perform Med Rec) 1 each MISCELLANE ONCE PRN PRN Reason: Consult order Pharmacy Consult (Consult Rx Etoh Phenob Po Only) 1 each MISCELLANE ONCE PRN; Protocol PRN Reason: Consult order Phenobarbital (Phenobarbital 30 Mg Tablet) 60 mg PO BID [facility]; Protocol Stop: 06/04/22 21:01 Phenobarbital (Phenobarbital 30 Mg Tablet) 30 mg PO BID [facility]; Protocol Stop: 06/06/22 21:01 Phenobarbital (Phenobarbital 30 Mg Tablet) 30 mg PO DAILY [facility]; Protocol Stop: 06/08/22 09:01 Rifaximin (Rifaximin 550 Mg Tablet) 550 mg PO BID [facility] Last Admin: 06/03/22 09:46 Dose: 550 mg Documented By: SHELLIE Sodium Chloride (0.9 % Sodium Chloride Flush 3 Ml Syringe) 3 ml IVFLUSH QSHIFT [facility] Last Admin: 06/03/22 09:36 Dose: Not Given Documented By: SHELLIE Non-Admin Reason: IV Running Spironolactone (Spironolactone 25 Mg Tablet) 200 mg PO DAILY [facility]; Protocol Last Admin: 06/03/22 09:46 Dose: 200 mg Documented By: SHELLIE Thiamine HCl (Thiamine Hcl 100 Mg Tablet) 100 mg PO DAILY [facility] Last Admin: 06/03/22 09:46 Dose: 100 mg Documented By: SHELLIE Labs CBC & Chem 7: 06/03/22 06:11 06/03/22 06:11 Labs: Laboratory Results - last 24 hr 06/02/22 06/02/22 06/02/22 09:00 12:27 23:43 MCV MCH MCHC RDW Plt Count MPV Absolute Nucleated RBC Nucleated RBC % (auto) Anion Gap Estim Creat Clear Calc Estimated GFR POC Glucose 184 H Random Glucose Calcium Total Bilirubin Direct Bilirubin AST ALT Alkaline Phosphatase Lactate Dehydrogenase 186 Total Protein Albumin Triglycerides Lipase Urine Color Dark Yellow Urine Appearance Clear Urine pH 5.5 Ur Specific [place] >= 1.030 H Urine Protein Trace Urine Glucose (UA) Negative Urine Ketones Trace Urine Blood Negative Urine Nitrite Positive H Ur Leukocyte Esterase Trace H Urine RBC 0-2 Urine WBC 0-5 Ur Squamous Epith Cells 0-2 Urine Bacteria None Seen Hyaline Casts 0-2 06/03/22 06/03/22 06/03/22 06:11 06:11 06:11 MCV 98.9 H MCH 33.3 H MCHC 33.7 RDW 13.0 Plt Count 203 MPV 9.5 Absolute Nucleated RBC 0.000 Nucleated RBC % (auto) 0.0 Anion Gap 15 Estim Creat Clear Calc 152.4 Estimated GFR > 60 POC Glucose Random Glucose 175 H Calcium 9.1 Total Bilirubin 7.5 H Direct Bilirubin 4.4 H AST 59 H ALT 35 Alkaline Phosphatase 314 H Lactate Dehydrogenase Total Protein 7.7 Albumin 3.2 L Triglycerides 124 Lipase 746 H Urine Color Urine Appearance Urine pH Ur Specific [place] Urine Protein Urine Glucose (UA) Urine Ketones Urine Blood Urine Nitrite Ur Leukocyte Esterase Urine RBC Urine WBC Ur Squamous Epith Cells Urine Bacteria Hyaline Casts Assessment and Plan (1) Acute pancreatitis: Status: Acute Plan 56-year-old gentleman with history of decompensated alcoholic cirrhosis, gastropathy, portal hypertension, esophageal varices, ascites, portal vein thrombosis currently not on anticoagulation, history of COPD, right colectomy presented to [facility] with 3 days of abdominal pain associated with naus ea dry heaving unable to keep food down workup in the ER showed elevated WBC, elevated lipase and CT suggestive of acute on chronic pancreatitis Acute on chronic pancreatitis likely due to alcohol use although patient denies recent alcohol use After multiple questions patient admitted he might have by accident drank vodka from his girlfriend's glass No new medications, no abdominal trauma, no viral infection IV fluids, will add clear liquid diet as abdominal pain has resolved IV Dilaudid as needed Triglyceride level 124 lipase 746, increased from 221 yesterday Alcoholic cirrhosis with ascites, portal hypertension, gastropathy, and portal vein thrombosis, strongly recommend to abstain from alcohol Patient on high-dose Lasix and Aldactone at home will hold Lasix while receiving IV fluid Chronically Elevated LFTs Continue lactulose, thiamine, folic acid, PPI, rifaximin and hydroxyzine Patient declined care team eval Tobacco use disorder continue nicotine gum as needed patient currently smoking 2-4 cigarettes a day Mood disorder continue paroxetine and imipramine COPD no acute exacerbation continue as needed albuterol Chronic dizziness continue meclizine DVT prophylaxis with compression boots Attending Dr. Holcomb Full code Continue hospitalization for treatment of acute pancreatitis requiring IV analgesics and IV fluids Time Spent With Patient Time: Total time managing care of this patient today ____ minutes. Quality Stroke Does the patient have a stroke diagnosis?: No VTE Prior VTE?: No VTE Risk Level:: Medical - moderate - high VTE Device Contraindication: N/A - Device Ordered VTE Drug Contraindication: Treatment Not Indicated
[2022-06-03] MEDS: Meclizine HCl 12.5 MG TABLET PO (10:02)
[2022-06-03] MEDS: PHENobarbitaL 30 MG TABLET 60 MG PO ×2 (12:09→21:28)
[2022-06-03 15:39] VITALS: BP 152/98; PULSE 100; RESP 12; TEMP 36.6; O2SAT 94
[2022-06-03] MEDS: hydrOXYzine HCL 25 MG TABLET PO (21:37)
[2022-06-03] MEDS: Imipramine HCl 50 MG TABLET PO (21:50)
[2022-06-04 00:35] VITALS: BP 176/93; PULSE 105; RESP 16; TEMP 36.7; O2SAT 98
--- NOTE | 2022-06-04 03:23 | PC.NURSE ---
Pt sleeping at this time, respirations regular.
[2022-06-04] MEDS: HYDROmorphone HCl 0.5 MG/0.5 ML SYRINGE IVPUSH ×2 (04:00→11:07)
--- NOTE | 2022-06-04 05:50 | PC.NURSE ---
Pt sleeping at this time, respirations regular.
[2022-06-04 05:52] VITALS: BP 168/103; PULSE 108; RESP 14; TEMP 36.7; O2SAT 92
[2022-06-04] MEDS: ondansetron HCL 4 MG/2 ML VIAL IVPUSH ×2 (06:06→10:49)
[2022-06-04] MEDS: Omeprazole 40 MG CAPSULE.DR PO (06:06)
[2022-06-04 06:44] LABS: Anion Gap 14 (12-20); Blood Urea Nitrogen 15 mg/dL (9-16); Calcium 8.6 mg/dL (8.4-10.2); Carbon Dioxide 26 mmol/L (22-29); Chloride 93 mmol/L (96-108); Estimated Glomerular Filt Rate > 60; Glucose Random 161 mg/dL (60-115); Lipase 382 U/L (8-78); Potassium 3.9 mmol/L (3.3-5.1); Sodium 129 mmol/L (135-145)
[2022-06-04] MEDS: Folic Acid 1 MG TABLET PO (07:11)
[2022-06-04] MEDS: buPROPion HCl XL 300 MG TAB.ER.24H PO (07:11)
[2022-06-04] MEDS: Thiamine HCL 100 MG TABLET PO (07:11)
[2022-06-04] MEDS: PHENobarbitaL 30 MG TABLET 60 MG PO ×2 (07:11→20:38)
[2022-06-04] MEDS: Lactulose 20 GM/30 ML SOLUTION PO ×3 (07:12→20:37)
[2022-06-04] MEDS: Nicotine Polacrilex 2 MG GUM BUCCAL ×2 (07:16→20:37)
[2022-06-04] MEDS: Sodium Phosphate,Mono-Dibasic 133 ML ENEMA PR (07:53)
[2022-06-04] MEDS: rifAXIMin 550 MG TABLET PO ×2 (08:36→20:38)
[2022-06-04] MEDS: PARoxetine HCL 20 MG TABLET PO (08:36)
[2022-06-04] MEDS: Spironolactone 25 MG TABLET 200 MG PO (08:36)
[2022-06-04 08:40] LABS: Alanine Aminotransferase 30 U/L (0-40); Alkaline Phosphatase 287 U/L (39-117); Aspartate Amino Transferase 52 U/L (5-37); Bilirubin Direct 4.9 mg/dL (0.0-0.5)
[2022-06-04] MEDS: lisinopriL 5 MG TABLET PO (08:45)
--- NOTE | 2022-06-04 11:12 | PC.NURSE ---
pt ambulating to restroom intermittently to attempt bm, using fleet enema with some success on own. has become nauseous w vomiting throughout morning. given prn antiemetics, provider aware of pt presentation. wctm.
--- NOTE | 2022-06-04 11:22 | P.PNIM_ITS ---
Subjective Subjective Date of Service: 06/04/22 Review of Systems Pancreatitis, alcohol abuse Feeling better, epigastric pain comes and goes feeling constipated with nausea Physical Exam Vital Signs: Vital Signs: Last Vital Signs Temp 98.1 F 06/04/22 05:52 Pulse 108 H 06/04/22 05:52 Resp 14 06/04/22 05:52 BP 168/103 H 06/04/22 05:52 Pulse Ox 92 06/04/22 05:52 O2 Del Method 06/04/22 05:52 BMI result Body Mass Index 28.4 Appearing in no acute distress lung sounds are clear to auscultation heart regular rate rhythm, clear S1, S2 positive bowel sounds, abdomen is soft, nontender neuro patient is alert x3, no focal deficits Objective Data Active Medications Acetaminophen (Acetaminophen 325 Mg Tablet) 650 mg PO Q6H PRN PRN Reason: Pain, Mild (Pain Scale 1-3) Bupropion HCl (Bupropion Hcl Xl 300 Mg Tab.Er.24h) 300 mg PO DAILY [facility] Last Admin: 06/04/22 07:11 Dose: 300 mg Documented By: NADEEN Folic Acid (Folic Acid 1 Mg Tablet) 1 mg PO DAILY [facility] Last Admin: 06/04/22 07:11 Dose: 1 mg Documented By: NADEEN Hydromorphone HCl (Hydromorphone Hcl 0.5 Mg/0.5 Ml Syringe) 0.5 mg IVPUSH Q4H PRN; Protocol PRN Reason: Pain, Severe (Pain Scale 7-10) Last Admin: 06/04/22 11:07 Dose: 0.5 mg Documented By: NADEEN Hydroxyzine HCl (Hydroxyzine Hcl 25 Mg Tablet) 25 mg PO Q8H PRN PRN Reason: anxiety Last Admin: 06/03/22 21:37 Dose: 25 mg Documented By: DONN Imipramine HCl (Imipramine Hcl 50 Mg Tablet) 50 mg PO BEDTIME [facility] Last Admin: 06/03/22 21:50 Dose: 50 mg Documented By: DONN Lactulose (Lactulose 20 Gm/30 Ml Solution) 20 gm PO TID [facility] Last Admin: 06/04/22 07:12 Dose: 20 gm Documented By: NADEEN Lisinopril (Lisinopril 5 Mg Tablet) 5 mg PO DAILY [facility]; Protocol Last Admin: 06/04/22 08:45 Dose: 5 mg Documented By: NADEEN Meclizine HCl (Meclizine Hcl 12.5 Mg Tablet) 12.5 mg PO TID PRN PRN Reason: Dizziness Last Admin: 06/03/22 10:02 Dose: 12.5 mg Documented By: SHELLIE Nicotine Polacrilex (Nicotine Polacrilex 2 Mg Gum) 2 mg BUCCAL Q2H [facility] Last Admin: 06/04/22 08:47 Dose: Not Given Documented By: NADEEN Non-Admin Reason: Patient Refused Omeprazole (Omeprazole 40 Mg Capsule.Dr) 40 mg PO DAILY@0630 [facility] Last Admin: 06/04/22 06:06 Dose: 40 mg Documented By: ROSALINA-LITTA Ondansetron HCl (Ondansetron Hcl 4 Mg/2 Ml Vial) 4 mg IVPUSH Q6H PRN PRN Reason: Nausea Last Admin: 06/04/22 10:49 Dose: 4 mg Documented By: NADEEN Paroxetine HCl (Paroxetine Hcl 20 Mg Tablet) 20 mg PO DAILY [facility] Last Admin: 06/04/22 08:36 Dose: 20 mg Documented By: NADEEN Pharmacy Consult (Consult Rx Perform Med Rec) 1 each MISCELLANE ONCE PRN PRN Reason: Consult order Pharmacy Consult (Consult Rx Etoh Phenob Po Only) 1 each MISCELLANE ONCE PRN; Protocol PRN Reason: Consult order Phenobarbital (Phenobarbital 30 Mg Tablet) 60 mg PO BID [facility]; Protocol Stop: 06/04/22 21:01 Last Admin: 06/04/22 07:11 Dose: 60 mg Documented By: NADEEN Phenobarbital (Phenobarbital 30 Mg Tablet) 30 mg PO BID [facility]; Protocol Stop: 06/06/22 21:01 Phenobarbital (Phenobarbital 30 Mg Tablet) 30 mg PO DAILY [facility]; Protocol Stop: 06/08/22 09:01 Rifaximin (Rifaximin 550 Mg Tablet) 550 mg PO BID [facility] Last Admin: 06/04/22 08:36 Dose: 550 mg Documented By: NADEEN Sodium Biphosphate/Sodium Phosphate (Sodium Phosphate,Gregory-Dibasic 133 Ml Enema) 133 ml DE ONCE PRN PRN Reason: Constipation Last Admin: 06/04/22 07:53 Dose: 133 ml Documented By: NADEEN Sodium Chloride (0.9 % Sodium Chloride Flush 3 Ml Syringe) 3 ml IVFLUSH QSHIFT [facility] Last Admin: 06/04/22 06:58 Dose: Not Given Documented By: NADEEN Non-Admin Reason: Med Not Available Spironolactone (Spironolactone 25 Mg Tablet) 200 mg PO DAILY [facility]; Protocol Last Admin: 06/04/22 08:36 Dose: 200 mg Documented By: NADEEN Thiamine HCl (Thiamine Hcl 100 Mg Tablet) 100 mg PO DAILY [facility] Last Admin: 06/04/22 07:11 Dose: 100 mg Documented By: NADEEN Labs CBC & Chem 7: 06/03/22 06:11 06/04/22 05:49 Labs: Laboratory Results - last 24 hr 06/04/22 05:49 Anion Gap 14 Estim Creat Clear Calc 181.0 Estimated GFR > 60 Random Glucose 161 H D Calcium 8.6 Total Bilirubin 8.0 H Direct Bilirubin 4.9 H AST 52 H ALT 30 Alkaline Phosphatase 287 H Total Protein 7.0 Albumin 3.0 L Lipase 382 H Microbiology Microbiology Results: Microbiology 06/02/22 09:00 Blood Culture - Preliminary Blood - Venous No growth after 48 hours. 06/02/22 09:00 Blood Culture - Preliminary Blood - Venous No growth after 48 hours. 06/02/22 Unknown Urine Culture - Final Urine clean catch - Urine miranda top No growth. Assessment and Plan (1) Acute pancreatitis: Status: Acute Plan 56-year-old gentleman with history of decompensated alcoholic cirrhosis, gastropathy, portal hypertension, esophageal varices, ascites, portal vein thrombosis currently not on anticoagulation, history of COPD, right colectomy presented to [facility] with 3 days of abdominal pain associated with nausea dry heaving unable to keep food down workup in the ER showed elevated WBC, elevated lipase and CT suggestive of acute on chronic pancreatitis Constipation Fleets enema , Bisacodyl suppository as needed, lactulose Hyponatremia Likely secondary to IV fluids, fluids stopped, monitor BMP Acute on chronic pancreatitis likely due to alcohol use although patient denies recent alcohol use clear liquid diet, stop IV fluids IV Dilaudid as needed Triglyceride level 124 lipase trending down Alcoholic cirrhosis with ascites, portal hypertension, gastropathy, and portal vein thrombosis, strongly recommend to abstain from alcohol Patient on high-dose Lasix and Aldactone at home will hold Lasix while receiving IV fluid Chronically Elevated LFTs Continue lactulose, thiamine, folic acid, PPI, rifaximin and hydroxyzine Patient declined care team eval Tobacco use disorder continue nicotine gum as needed patient currently smoking 2-4 cigarettes a day Mood disorder continue paroxetine and imipramine COPD no acute exacerbation continue as needed albuterol Chronic dizziness continue meclizine DVT prophylaxis with compression boots Attending Dr. Holcomb Full code Continue hospitalization for treatment of acute pancreatitis requiring IV analgesics and IV fluids Time Spent With Patient Time: Total time managing care of this patient today ____ minutes. Quality Stroke Does the patient have a stroke diagnosis?: No VTE Prior VTE?: No VTE Risk Level:: Medical - moderate - high VTE Device Contraindication: N/A - Device Ordered VTE Drug Contraindication: Treatment Not Indicated
[2022-06-04] MEDS: bisacodyL 10 MG SUPP.RECT PR (13:31)
[2022-06-04] MEDS: Acetaminophen 325 MG TABLET 650 MG PO (13:31)
[2022-06-04] MEDS: PEG 3350/Na Sulf,Bicarb,Cl/KCL 4,000 ML SOLN.RECON 4000 ML PO (14:06)
--- NOTE | 2022-06-04 14:30 | PC.NURSE ---
pt still having abd pressure, feels significant stool burden. provider aware, ordering gavilyte colon prep to assist in bm. pt tolerating po at this time without issue, moved to overflow room 6 for privacy with commode. ambulatory without issue. wctm.
[2022-06-04 17:17] VITALS: BP 118/86; PULSE 112; RESP 22; TEMP 36.5; O2SAT 99
[2022-06-04 19:35] VITALS: BP 146/94; PULSE 120; RESP 20; TEMP 36.6; O2SAT 97
--- NOTE | 2022-06-04 19:35 | PC.NURSE ---
Addendum entered by Kathy Chacon RN 06/05/22 06:52: report given to DANIA Mann Original Note: report received from DANIA Purdy pt is alert and oriented resting in bed no signs of acute distress notice breathing equally unlabored
[2022-06-04 20:34] LABS: Glucose, Whole Blood 166 mg/dL (60-115)
[2022-06-04] MEDS: Imipramine HCl 50 MG TABLET PO (20:38)
[2022-06-05 05:32] VITALS: PULSE 110; RESP 20
[2022-06-05] MEDS: Omeprazole 40 MG CAPSULE.DR PO (06:14)
--- NOTE | 2022-06-05 08:30 | PC.NURSE ---
Pt axo x3 seen by Krystal BENITES pt will be changed from clear to regular diet with possibility of D/C if tolerated. Pt aware of plan. Pt denies pain, VSS. no complaints. will continue to observe.
[2022-06-05] MEDS: lisinopriL 5 MG TABLET PO (09:54)
[2022-06-05] MEDS: buPROPion HCl XL 300 MG TAB.ER.24H PO (09:54)
[2022-06-05] MEDS: Lactulose 20 GM/30 ML SOLUTION PO (09:54)
[2022-06-05] MEDS: PHENobarbitaL 30 MG TABLET PO (09:55)
[2022-06-05] MEDS: Folic Acid 1 MG TABLET PO (09:55)
[2022-06-05] MEDS: Spironolactone 25 MG TABLET 200 MG PO (09:59)
[2022-06-05] MEDS: Thiamine HCL 100 MG TABLET PO (09:59)
[2022-06-05] MEDS: 0.9 % Sodium Chloride Flush 3 ML SYRINGE IVFLUSH (10:00)
[2022-06-05] MEDS: 0.9 % Sodium Chloride 1,000 ML 100 ML IVCONT (10:18)
[2022-06-05] MEDS: rifAXIMin 550 MG TABLET PO (10:31)
[2022-06-05] MEDS: PARoxetine HCL 20 MG TABLET PO (10:31)
[2022-06-05 11:25] LABS: Alanine Aminotransferase 37 U/L (0-40); Albumin Level 3.1 g/dL (3.5-5.0); Alkaline Phosphatase 313 U/L (39-117); Anion Gap 13 (12-20); Aspartate Amino Transferase 67 U/L (5-37); Bilirubin Direct 5.6 mg/dL (0.0-0.5); Bilirubin Total 9.2 mg/dL (0.0-1.0); Blood Urea Nitrogen 12 mg/dL (9-16); Calcium 8.7 mg/dL (8.4-10.2); Carbon Dioxide 28 mmol/L (22-29); Chloride 92 mmol/L (96-108); Creatinine Clr Calc Pharmacy 170.3; Estimated Glomerular Filt Rate > 60; Glucose Random 147 mg/dL (60-115); Lipase 114 U/L (8-78); Potassium 3.8 mmol/L (3.3-5.1); Sodium 129 mmol/L (135-145); Total Protein 7.3 g/dL (6.5-8.0)
--- NOTE | 2022-06-05 12:00 | P.PNIM_ITS ---
Subjective Subjective Date of Service: 06/05/22 Review of Systems Pancreatitis, alcohol abuse Feeling better, epigastric pain comes and goes feeling constipated with nausea Physical Exam Vital Signs: Vital Signs: Last Vital Signs Temp 97.8 F 06/04/22 19:35 Pulse 110 H 06/05/22 05:32 Resp 20 06/05/22 05:32 BP 146/94 H 06/04/22 19:35 Pulse Ox 97 06/04/22 19:35 O2 Del Method 06/05/22 05:32 BMI result Body Mass Index 28.4 Appearing in no acute distress lung sounds are clear to auscultation heart regular rate rhythm, clear S1, S2 positive bowel sounds, abdomen is soft, nontender neuro patient is alert x3, no focal deficits Objective Data Active Medications Acetaminophen (Acetaminophen 325 Mg Tablet) 650 mg PO Q6H PRN PRN Reason: Pain, Mild (Pain Scale 1-3) Last Admin: 06/04/22 13:31 Dose: 650 mg Documented By: NADEEN Bisacodyl (Bisacodyl 10 Mg Supp.Rect) 10 mg ID DAILY PRN PRN Reason: Constipation Last Admin: 06/04/22 13:31 Dose: 10 mg Documented By: NADEEN Bupropion HCl (Bupropion Hcl Xl 300 Mg Tab.Er.24h) 300 mg PO DAILY [facility] Last Admin: 06/05/22 09:54 Dose: 300 mg Documented By: NORA Folic Acid (Folic Acid 1 Mg Tablet) 1 mg PO DAILY [facility] Last Admin: 06/05/22 09:55 Dose: 1 mg Documented By: NORA Hydromorphone HCl (Hydromorphone Hcl 0.5 Mg/0.5 Ml Syringe) 0.5 mg IVPUSH Q4H PRN; Protocol PRN Reason: Pain, Severe (Pain Scale 7-10) Last Admin: 06/04/22 11:07 Dose: 0.5 mg Documented By: NADEEN Hydroxyzine HCl (Hydroxyzine Hcl 25 Mg Tablet) 25 mg PO Q8H PRN PRN Reason: anxiety Last Admin: 06/03/22 21:37 Dose: 25 mg Documented By: DONN Sodium Chloride (Ns) 1,000 mls @ 100 mls/hr IVCONT .Q10H [facility] Last Admin: 06/05/22 10:18 Dose: 100 mls/hr Documented By: NORA Imipramine HCl (Imipramine Hcl 50 Mg Tablet) 50 mg PO BEDTIME [facility] Last Admin: 06/04/22 20:38 Dose: 50 mg Documented By: ROSALINA-VIBHA Lactulose (Lactulose 20 Gm/30 Ml Solution) 20 gm PO TID [facility] Last Admin: 06/05/22 09:54 Dose: 20 gm Documented By: NORA Lisinopril (Lisinopril 5 Mg Tablet) 5 mg PO DAILY [facility]; Protocol Last Admin: 06/05/22 09:54 Dose: 5 mg Documented By: NORA Meclizine HCl (Meclizine Hcl 12.5 Mg Tablet) 12.5 mg PO TID PRN PRN Reason: Dizziness Last Admin: 06/03/22 10:02 Dose: 12.5 mg Documented By: SHELLIE Nicotine Polacrilex (Nicotine Polacrilex 2 Mg Gum) 2 mg BUCCAL Q2H [facility] Last Admin: 06/05/22 10:03 Dose: Not Given Documented By: NORA Non-Admin Reason: Patient Refused Omeprazole (Omeprazole 40 Mg Capsule.Dr) 40 mg PO DAILY@0630 [facility] Last Admin: 06/05/22 06:14 Dose: 40 mg Documented By: JAZ Ondansetron HCl (Ondansetron Hcl 4 Mg/2 Ml Vial) 4 mg IVPUSH Q6H PRN PRN Reason: Nausea Last Admin: 06/04/22 10:49 Dose: 4 mg Documented By: NADEEN Paroxetine HCl (Paroxetine Hcl 20 Mg Tablet) 20 mg PO DAILY [facility] Last Admin: 06/05/22 10:31 Dose: 20 mg Documented By: NORA Pharmacy Consult (Consult Rx Perform Med Rec) 1 each MISCELLANE ONCE PRN PRN Reason: Consult order Pharmacy Consult (Consult Rx Etoh Phenob Po Only) 1 each MISCELLANE ONCE PRN; Protocol PRN Reason: Consult order Phenobarbital (Phenobarbital 30 Mg Tablet) 30 mg PO BID [facility]; Protocol Stop: 06/06/22 21:01 Last Admin: 06/05/22 09:55 Dose: 30 mg Documented By: NORA Phenobarbital (Phenobarbital 30 Mg Tablet) 30 mg PO DAILY [facility]; Protocol Stop: 06/08/22 09:01 Rifaximin (Rifaximin 550 Mg Tablet) 550 mg PO BID [facility] Last Admin: 06/05/22 10:31 Dose: 550 mg Documented By: NORA Sodium Biphosphate/Sodium Phosphate (Sodium Phosphate,Levy-Dibasic 133 Ml Enema) 133 ml ID ONCE PRN PRN Reason: Constipation Last Admin: 06/04/22 07:53 Dose: 133 ml Documented By: NADEEN Sodium Chloride (0.9 % Sodium Chloride Flush 3 Ml Syringe) 3 ml IVFLUSH QSHIFT [facility] Last Admin: 06/05/22 10:00 Dose: 3 ml Documented By: NORA Spironolactone (Spironolactone 25 Mg Tablet) 200 mg PO DAILY [facility]; Protocol Last Admin: 06/05/22 09:59 Dose: 200 mg Documented By: NORA Thiamine HCl (Thiamine Hcl 100 Mg Tablet) 100 mg PO DAILY [facility] Last Admin: 06/05/22 09:59 Dose: 100 mg Documented By: NORA Labs CBC & Chem 7: 06/03/22 06:11 06/05/22 10:39 Labs: Laboratory Results - last 24 hr 06/04/22 06/05/22 20:31 10:39 Anion Gap 13 Estim Creat Clear Calc 170.3 Estimated GFR > 60 POC Glucose 166 H Random Glucose 147 H Calcium 8.7 Total Bilirubin 9.2 H Direct Bilirubin 5.6 H AST 67 H ALT 37 Alkaline Phosphatase 313 H Total Protein 7.3 Albumin 3.1 L Lipase 114 H Microbiology Microbiology Results: Microbiology 06/02/22 09:00 Blood Culture - Preliminary Blood - Venous No growth after 48 hours. 06/02/22 09:00 Blood Culture - Preliminary Blood - Venous No growth after 48 hours. Assessment and Plan (1) Acute pancreatitis: Status: Acute Plan 56-year-old gentleman with history of decompensated alcoholic cirrhosis, gastropathy, portal hypertension, esophageal varices, ascites, portal vein thrombosis currently not on anticoagulation, history of COPD, right colectomy presented to [facility] with 3 days of abdominal pain associated with nausea dry heaving unable to keep food down workup in the ER showed elevated WBC, elevated lipase and CT suggestive of acute on chronic pancreatitis Constipation. Resolved Good results with GoLYTELY Hyponatremia Continuous Check urine studies Nephrology consultation Acute on chronic pancreatitis likely due to alcohol use although patient denies recent alcohol use Advanced to regular diet IV Dilaudid as needed Triglyceride level 124 lipase trending down Alcoholic cirrhosis with ascites, portal hypertension, gastropathy, and portal vein thrombosis, strongly recommend to abstain from alcohol Patient on high-dose Lasix and Aldactone at home will hold Lasix while receiving IV fluid Continue lactulose, thiamine, folic acid, PPI, rifaximin and hydroxyzine Chronically Elevated LFTs but worsening, GI consultation Tobacco use disorder continue nicotine gum as needed patient currently smoking 2-4 cigarettes a day Mood disorder continue paroxetine and imipramine COPD no acute exacerbation continue as needed albuterol Chronic dizziness continue meclizine DVT prophylaxis with compression boots Attending Dr. Holcomb Full code Continue hospitalization for treatment of acute pancreatitis requiring IV analgesics and IV fluids Time Spent With Patient Time: Total time managing care of this patient today ____ minutes. Quality Stroke Does the patient have a stroke diagnosis?: No VTE Prior VTE?: No VTE Risk Level:: Medical - moderate - high VTE Device Contraindication: N/A - Device Ordered VTE Drug Contraindication: Treatment Not Indicated
--- NOTE | 2022-06-05 14:20 | PC.NURSE ---
Pt requesting to be D/c because he has been here for four days and nothing is happening, Pt states i will walk out either way . KAMARI Rice aware. pt informed of the risks of leaving AMA, pt states, i know, i'll be fine .Pt encourage to stay by this RN, pt made aware that he was assign the bed however he refused to stay. AMA form sign by pt and witnessed by 2 RNs, IV removed. Pt left ambulatory.
[2022-06-05 14:33] LABS: Potassium Urine Random 67.5 mmol/L
[2022-06-05 14:40] LABS: Anion Gap 15 (12-20); Blood Urea Nitrogen 13 mg/dL (9-16); Calcium 8.8 mg/dL (8.4-10.2); Carbon Dioxide 27 mmol/L (22-29); Chloride 91 mmol/L (96-108); Creatinine Clr Calc Pharmacy 178.2; Estimated Glomerular Filt Rate > 60; Glucose Random 95 mg/dL (60-115); Potassium 3.9 mmol/L (3.3-5.1); Sodium 129 mmol/L (135-145)
[2022-06-05 14:47] LABS: Osmolality Urine 879 mosm/kg (373-1093)
[2022-06-05 16:14] LABS: Chloride Urine Random < 20.0 mmol/L
--- NOTE | 2022-06-05 16:32 | PM.DS ---
DS: Providers Provider Date of Service: 06/05/22 Date of admission: 06/02/22 13:07 Primary care physician: Martin Avilez MD Consults: 06/05/22 11:58 Consult to Gastroenterology Routine Consulting Provider: Marcia Hawk Reason for consultation: elevated LFT 06/05/22 12:01 Consult to Nephrology Routine Consulting Provider: Félix Mcguire Reason for consultation: Hyponatremia Attending physician on discharge: [facility] Discharging clinician: Krystal Alvarez DS: Diagnosis Discharge Diagnosis (1) Acute pancreatitis: Status: Acute DS: Summary Hospital Course Hospital Course: 56-year-old gentleman with past medical history significant for alcohol-induced cirrhosis, history of portal vein thrombosis not on anticoagulation, history of grade 3 esophageal varices and portal hypertension tensive gastropathy, history of recurrent right pleural effusion requiring thoracocentesis, recently developed left pleural effusion underwent thoracocentesis on 05/29 pleural fluid culture sensitivities negative patient presented to [facility] today due to left upper quadrant abdominal pain with radiation to left upper back associated with nausea no vomiting unable to keep food down due to dry heaving his only had for few sips of soups in last 3 days, Patient denies alcohol use, his last alcoholic drink was 3 months ago but in GI note from March patient was intermittently drinking alcohol, and has refused help with outpatient counseling and referrals, patient denies excessive fatty food intake, denies abdominal trauma, no new medications workup in the emergency room showed an elevated lipase of [address] abdomen and pelvis suggestive of acute on chronic pancreatitis therefore patient is being admitted to [facility] for analgesics, IV fluids Patient continue to have hyponatremia as well as concern for worsening liver enzymes. Patient reported that he did not want to stay to complete the workup. He was made aware that his symptoms can get worse and even lead to . He decided to leave against medical advice and eloped prior to being examined by provider. Constipation.? Resolved Good results with GoLYTELY Hyponatremia Continuous Check urine studies Nephrology consultation Acute on chronic pancreatitis likely due to alcohol use although patient denies recent alcohol use Advanced to regular diet IV Dilaudid as needed Triglyceride level 124 lipase trending down Alcoholic cirrhosis with ascites, portal hypertension, gastropathy, and portal vein thrombosis, strongly recommend to abstain from alcohol Patient on high-dose Lasix and Aldactone at home will hold Lasix while receiving IV fluid Continue lactulose, thiamine, folic acid, PPI, rifaximin and hydroxyzine Chronically Elevated LFTs but worsening, GI consultation Tobacco use disorder continue nicotine gum as needed patient currently smoking 2-4 cigarettes a day Mood disorder continue paroxetine and imipramine COPD no acute exacerbation continue as needed albuterol Chronic dizziness continue meclizine Time Spent with Patient Time attestation: Total time managing care of this patient today ____ minutes. Discharge coordination time: Greater than 30 minutes Quality: Safe Use of Opioids Does Pt have an Active Cancer Diagnosis on the Problem List?: No Quality: Stroke Does the patient have a stroke diagnosis?: No Physical Exam Vital Signs: Vital Signs: Last Vital Signs Temp 97.8 F 06/04/22 19:35 Pulse 110 H 06/05/22 05:32 Resp 20 06/05/22 05:32 BP 146/94 H 06/04/22 19:35 Pulse Ox 97 06/04/22 19:35 O2 Del Method 06/05/22 05:32 BMI result Body Mass Index 28.4 Unable to examine or evaluate because patient left against medical advice DS: Data Data Completed and Pending Completed studies during hospitalization [Text1]: Procedures Control Bleeding in Gastrointestinal Tract, Via Natural or Artificial Opening Endoscopic (11/01/21) Detoxification Services for Substance Abuse Treatment (12/06/21) Drainage of Right Pleural Cavity, Percutaneous Approach (12/06/21) Introduction of Mineral-based Topical Hemostatic Agent into Upper GI, Via Natural or Artificial Opening Endoscopic, [employer] (11/01/21) Occlusion of Esophageal Vein with Extraluminal Device, Via Natural or Artificial Opening Endoscopic (11/01/21) Labs on day of discharge: Laboratory Results - last 24 hr 06/04/22 06/05/22 06/05/22 20:31 10:39 13:15 Sodium 129 L Potassium 3.8 Chloride 92 L Carbon Dioxide 28 Anion Gap 13 BUN 12 Creatinine 0.68 Estim Creat Clear Calc 170.3 Estimated GFR > 60 POC Glucose 166 H Random Glucose 147 H Calcium 8.7 Total Bilirubin 9.2 H Direct Bilirubin 5.6 H AST 67 H ALT 37 Alkaline Phosphatase 313 H Total Protein 7.3 Albumin 3.1 L Lipase 114 H Urine Osmolality Ur Random Sodium 54.0 Ur Random Potassium 67.5 Ur Random Chloride < 20.0 06/05/22 06/05/22 13:15 14:05 Sodium 129 L Potassium 3.9 Chloride 91 L Carbon Dioxide 27 Anion Gap 15 BUN 13 Creatinine 0.65 Estim Creat Clear Calc 178.2 Estimated GFR > 60 POC Glucose Random Glucose 95 D Calcium 8.8 Total Bilirubin Direct Bilirubin AST ALT Alkaline Phosphatase Total Protein Albumin Lipase Urine Osmolality 879 Ur Random Sodium Ur Random Potassium Ur Random Chloride Preliminary micro results at discharge 06/02/22 09:00 Blood Culture - Preliminary Blood - Venous No growth after 48 hours. 06/02/22 09:00 Blood Culture - Preliminary Blood - Venous No growth after 48 hours. Discharge Plan Discharge Anticipated Discharge Date/Time: 06/05/22 16:31 Patient Disposition: Left Against Medical Advice Discharge Diagnosis: Acute pancreatitis Hypokalemia Hypomagnesemia Transaminitis, worsening Referrals: Martin Avilez MD [Primary Care Provider] - 1 Week Discharge Medications: Continued Creon 24,000-76,000 -120,000 unit capsule,delayed release(DR/EC) 1 cap PO TID Qty: 90 3RF furosemide 40 mg tablet 80 mg PO DAILY Qty: 60 0RF spironolactone 100 mg tablet 200 mg PO DAILY Qty: 60 0RF omeprazole 40 mg capsule,delayed release(DR/EC) 1 cap PO DAILY paroxetine HCl 20 mg tablet 1 tab PO DAILY nicotine (polacrilex) 2 mg gum 2 mg buccal Q2H Qty: 100 0RF meclizine 12.5 mg tablet 1 tab PO TID PRN (Reason: Dizziness) hydroxyzine pamoate 25 mg capsule 25 - 50 mg PO DAILY albuterol sulfate [ProAir HFA] 90 mcg/actuation HFA aerosol inhaler 1 - 2 puff inhalation Q4-6H PRN (Reason: Shortness Of Breath) doxycycline hyclate 100 mg capsule 100 mg PO BID 10 Days Qty: 20 0RF prednisone 20 mg tablet See Rx Instructions PO DAILY 10 Days Qty: 15 0RF Rx Instructions: PO daily; Take 2 tabs daily x 5 days, then 1 tablet daily x 5 days folic acid 1 mg tablet 1 mg PO DAILY bupropion HCl 300 mg tablet extended release 24 hr 300 mg PO DAILY thiamine HCl (vitamin B1) 100 mg tablet 100 mg PO DAILY imipramine HCl 50 mg tablet 50 mg PO BEDTIME Qty: 30 6RF Xifaxan 550 mg tablet 550 mg PO BID Qty: 60 6RF lactulose 10 gram/15 mL solution 30 ml PO TID Discharge Orders: Discharge Order (Routine); Ordered 06/05/22 Ordered By: Krystal Alvarez Diet: Advance to usual diet Activity on Discharge: As tolerated Care Plan Goals: Follow-up with primary care provider if symptoms persist or return to the ER Health Concerns: Acute pancreatitis Hypokalemia Hypomagnesemia Transaminitis, worsening Plan of Treatment: Left against medical advice before workup completed Assessment: See discharge summary
== END 2022-06-05 14:30 | disposition left against medical advice (07) | DRG 282 ==
LOC: HO.ED 08:54 → HO.EDOVER 13:15
PROVIDERS: Nurse Practitioner Family; Admitting Provider Hospitalist; Emergency Provider Emergency Medicine Emergency Medical Services; PCP Internal Medicine; Visit Provider Nurse Practitioner Acute Care
DX: K85.20 Alcohol induced acute pancreatitis without necrosis or infection (principal); I81 Portal vein thrombosis; K70.31 Alcoholic cirrhosis of liver with ascites; K76.6 Portal hypertension; R65.10 Systemic inflammatory response syndrome (SIRS) of non-infectious origin without acute organ dysfunction; E87.1 Hypo-osmolality and hyponatremia; K31.89 Other diseases of stomach and duodenum; F10.20 Alcohol dependence, uncomplicated; J44.9 Chronic obstructive pulmonary disease, unspecified; K59.00 Constipation, unspecified; F17.210 Nicotine dependence, cigarettes, uncomplicated; K86.0 Alcohol-induced chronic pancreatitis; Z20.822 Contact with and (suspected) exposure to COVID-19; Z71.6 Tobacco abuse counseling; Z79.899 Other long term (current) drug therapy
CPT/HCPCS: 0241U; 36415; 71046; 74177; 80048; 80053; 80076; 81001; 82436; 82947; 83605; 83615; 83690; 83735; 83935; 84133; 84300; 84478; 84484; 85025; 85027; 87040; 87086; 93005; 99285; J1170; J2270; J2405; J2560; Q9967

== ENCOUNTER 2022-07-05 09:42 | Emergency (ER) | payer MEDICAID, SELFPAY ==
--- NOTE | ~2022-07-05 | XR_ITS ---
EXAMINATION: XR CHEST CLINICAL INFORMATION: Shortness of breath COMPARISON: 06/02/2022 TECHNIQUE: Frontal view of the chest was obtained. FINDINGS: Since 06/02/2022, there has been an increase in size of the left pleural effusion that now appears moderate. There is associated left lower lobe atelectasis. A definite right pleural effusion is not seen although at the time of the prior CT scan, a small right effusion was present as well and I suspect this likely a small right subpulmonic effusion at this time. No infiltrates or lung masses are seen is is normal. XR/XR chest 1V IMPRESSION: Increase in size of left pleural effusion with associated left lower lobe atelectasis.
--- NOTE | ~2022-07-05 | US_ITS ---
EXAMINATION: ULTRASOUND-GUIDED LEFT THORACENTESIS. CLINICAL INFORMATION: Shortness of breath with left pleural effusion. COMPARISON: Chest x-ray 07/05/2022 at 9:59 AM. TECHNIQUE: Following explaining ultrasound-guided left thoracentesis procedure, benefits and risk, a written consent was obtained. Patient was placed sitting upright on ultrasound stretcher and preliminary ultrasound imaging was obtained through the left posterior chest. An optimal site was selected, marked and cleaned in a usual sterile manner. 1% lidocaine was injected at puncture site. Through a small vessel syndrome incision a 5 [place] [employer] catheter was advanced into the pleural space. After observing fluid return, stylet was withdrawn and catheter connected to vacuum bottle via connecting cannula. After obtaining all fluid and observing normal fluid return, catheter was withdrawn making sure no air leaked in. Complete hemostasis achieved at puncture site. Sterile dressing applied postprocedure. Patient tolerated procedure extremely well. Chest x-ray was obtained subsequently. FINDINGS: On preliminary ultrasound imaging there is moderate to large left pleural effusion. Approximately 2.0 L of clear eliseo color fluid was drained from left pleural space. None of this fluid was sent to lab. US/US thoracentesis IMPRESSION: Successful therapeutic left thoracentesis performed without immediate complications. Postprocedure chest x-ray revealed no pneumothorax.
--- NOTE | ~2022-07-05 | XR_ITS ---
EXAMINATION: XR CHEST CLINICAL INFORMATION: Status post left thoracentesis. Chest x-ray obtained earlier today at 9:59 AM. COMPARISON: None TECHNIQUE: 2 views of the chest were obtained. FINDINGS: Status post left thoracentesis is expansion of left lower lobe. There is no visible pneumothorax. Interval haziness in left lung base likely residual effusion. Both lungs are otherwise clear clear and expanded. Heart size and pulmonary vascularity is normal. XR/XR chest 2V IMPRESSION: Status post left thoracentesis there is expansion of left lower lobe. There is no visible pneumothorax. There is residual left pleural effusion.
[2022-07-05 09:47] VITALS: BP 121/82; PULSE 120; RESP 20; TEMP 36.6; O2SAT 94; BMI 30.2
--- NOTE | 2022-07-05 09:59 | ECG_ITS ---
Test Reason : DYSPNEA Blood Pressure : / mmHG Vent. Rate : 116 BPM Atrial Rate : 116 BPM P-R Int : 168 ms QRS Dur : 084 ms QT Int : 330 ms P-R-T Axes : 052 021 036 degrees QTc Int : 458 ms Sinus tachycardia Otherwise normal ECG When compared with ECG of 02-JUN-2022 05:41, No significant change was found Referred By: Stephanie Lee Electronically Signed By:Manny Beaver
--- NOTE | 2022-07-05 10:06 | ED_ITS ---
HPI - SOB/Dyspnea General Chief Complaint: Dyspnea Stated Complaint: SOB, hard to breath, headache Time Seen by Provider: 07/05/22 09:58 Source: patient and family Mode of arrival: ambulatory History of Present Illness HPI Narrative: 56-year-old male with known liver cirrhosis and continues to drink alcohol stating that his last drink was yesterday presents with increasing shortness of breath that is significantly worse with lying flat and has never had or needed to have paracentesis in the abdomen. He otherwise denies any associated fever, chills, chest pain and has chronic diarrhea. Related Data Home Medications Medication Instructions Recorded Confirmed bupropion HCl 300 mg 24 hr tablet, 300 mg PO DAILY 06/10/21 06/02/22 extended release folic acid 1 mg tablet 1 mg PO DAILY 06/10/21 06/02/22 thiamine HCl (vitamin B1) 100 mg 100 mg PO DAILY 06/10/21 06/02/22 tablet omeprazole 40 mg capsule,delayed 1 cap PO DAILY 08/10/21 06/02/22 release paroxetine HCl 20 mg tablet 1 tab PO DAILY 08/10/21 06/02/22 meclizine 12.5 mg tablet 1 tab PO TID PRN Dizziness 12/06/21 06/02/22 albuterol sulfate 90 mcg/actuation 1 - 2 puff inhalation Q4-6H PRN 01/26/22 06/02/22 aerosol inhaler (ProAir HFA) Shortness Of Breath hydroxyzine pamoate 25 mg capsule 25 - 50 mg PO DAILY 01/26/22 06/02/22 lactulose 10 gram/15 mL oral 30 ml PO TID 03/08/22 06/02/22 solution Previous Rx's Medication Instructions Recorded imipramine HCl 50 mg tablet 50 mg PO BEDTIME #30 tabs 09/16/21 rifaximin 550 mg tablet (Xifaxan) 550 mg PO BID #60 tabs 09/16/21 nicotine (polacrilex) 2 mg gum 2 mg buccal Q2H #100 ea 11/03/21 [id number] 1 cap PO TID #90 caps 02/28/22 24,000-76,000-120,000 unit capsule,delayed rel (Creon) furosemide 40 mg tablet 80 mg PO DAILY #60 tabs 04/19/22 spironolactone 100 mg tablet 200 mg PO DAILY #60 tabs 04/19/22 doxycycline hyclate 100 mg capsule 100 mg PO BID 10 days #20 caps 05/25/22 prednisone 20 mg tablet See Rx Instructions PO DAILY 10 05/25/22 days #15 tabs Allergies Allergy/AdvReac Type Severity Reaction Status Date / Time No Known Drug Allergies Allergy Mild NONE Verified 07/05/22 09:51 [NO KNOWN DRUG ALLERGIES] Review of Systems Review of Systems: Pertinent positives and negatives as stated in HPI. PMFSH Past Medical History Source: nursing notes reviewed Medical History Alcoholism Chronic abdominal pain Cirrhosis Dyspnea Dyspnea Elevated LFTs GERD (gastroesophageal reflux disease) Gout Hydropneumothorax Pericardial effusion Pleural effusion Pleural effusion on right Tachycardia Surgical History H/O cervical spine surgery H/O colonoscopy H/O hemicolectomy Family History Family History Mother Cancer Social History Social History Household Members: Other Household Members Other:: roommate Housing: Apartment Do you presently have visiting nurse or other home services: No Alcohol intake: current Alcohol intake frequency: a few times a week Alcohol type: hard liquor Patient Tobacco Use Status: Current everyday Tobacco user Tobacco use type: Cigarette Cigarettes Per Day: 3 Years Smoked: 30 Smoked in Last 30 Days: Yes Second Hand Smoke Exposure: No Use of substances other than those prescribed or required for medical reasons: No Substance Use Type: Marijuana Advance Directives: Yes Advance Directives Information Provided: No Advance Directives on File: No service: No Current occupational status: unemployed Physical Exam Vital Signs: Vital Signs: Last Vital Signs Temp 97.8 F 07/05/22 09:47 Pulse 112 H 07/05/22 12:19 Resp 26 H 07/05/22 12:19 BP 136/85 07/05/22 12:19 Pulse Ox 93 07/05/22 12:19 O2 Del Method 07/05/22 12:19 BMI result Body Mass Index 30.2 VITAL SIGNS: Reviewed. GENERAL: Well developed, well nourished, in no acute distress. HEAD: Normocephalic/atraumatic, EYES: PERRLA, EOMI, scleral icterus EARS: Ext canals without abnormality OROPHARYNX: no oral lesions noted, posterior pharynx clear LUNGS: Good inspiratory effort, mildly decreased L>R, no expiratory wheeze/rhonchi/rales, positive tachypnea SpO2<94> CARDIOVASCULAR: Regular rate and rhythm without noted murmurs, ABDOMEN: Soft, non-tender, non-distended with bowel sounds. MUSCULOSKELETAL: No tenderness, deformities, or effusions noted on gross inspec tion. EXTREMITIES: No cyanosis, clubbing or edema. SKIN: Inspection of the skin reveals no rashes, + jaundice NEUROLOGIC: Alert and oriented x 4. Strength and sensation to light touch were grossly intact x 4. Medications Administered Discontinued Medications Generic Name Dose Route Start Last Admin Trade Name Freq PRN Reason Stop Dose Admin Lidocaine HCl 10 ml 07/05/22 13:45 07/05/22 16:13 Lidocaine Hcl 1 % Mpf 5 Ml Vial SUBCUT 07/05/22 13:46 10 ml ONCE ONE Administration Medical Decision Making Medical Decision Making MDM Narrative: 56-year-old male with presentation and history of pleural effusion and suspect he may have recurrence, he is also mildly tender in the epigastric but has known pancreatitis. Will obtain labs, imaging, EKG, viral testing. 1154: I have reviewed all investigations and my interpretation is that patient has an increasing left pleural effusion which is leading to his shortness of breath as well as a corresponding atelectasis associated with the fusion. There is no acute evidence of infection/anemia/electrolyte or renal dysfunction, BNP/troponin as well as EKG are noncontributory and will consult with ultrasound and Radiology for thoracentesis. Discussed with patient at bedside. 1650: Patient had 2 L removed from the left chest, on re-evaluation he reports feeling much better and follow-up chest x-ray shows good expansion of the left lower lobe, he is otherwise hemodynamically stable will be discharged home in stable condition with strict instructions to follow-up with his medical reimbursement manager regarding the left pleural effusion and reaccumulation events. Differential Diagnosis Please see discussion above Consult Healthcare Provider Management of the patient was discussed with: Creative Director 1155: LEFT IR thoracentesis. Lab Data Please see above discussion 07/05/22 10:10 07/05/22 10:09 Labs: Lab Results 07/05/22 07/05/22 07/05/22 Range/Units 09:54 10:09 10:09 WBC (4.8-10.8) X10*3/uL RBC (4.60-5.80) X10*6/uL Hgb (14.0-18.0) g/dl Hct (42.0-52.0) % MCV (80.0-98.0) fL MCH (27.0-33.0) pg MCHC (31.0-36.0) g/dl RDW (11.0-16.0) % Plt Count (160-400) X10*3/uL MPV (9.4-12.4) fL Immature Gran % (Auto) (0.0-0.4) % Neut % (Auto) (45-73) % Lymph % (Auto) (20-40) % Hancock % (Auto) (2-11) % Eos % (Auto) (0-4) % Baso % (Auto) (0-2) % Lymph # (Auto) (1.2-4.9) X10*3/uL Hancock # (Auto) (0.1-1.2) X10*3/uL Eos # (Auto) (0.0-0.4) X10*3/uL Baso # (Auto) (0.0-0.2) X10*3/uL Abs Immat Gran (auto) (0.00-0.03) X10*3/uL Absolute Neuts (auto) (2.0-8.3) x10*3/uL Absolute Nucleated RBC (0.0-0.012) X10*3/uL Nucleated RBC % (auto) (0.0-0.2) /100WBC PT 15.0 H (10.0-13.1) SEC INR 1.3 H (0.9-1.1) Sodium 136 (135-145) mmol/L Potassium 3.7 (3.3-5.1) mmol/L Chloride 104 (96-108) mmol/L Carbon Dioxide 23 (22-29) mmol/L Anion Gap 13 (12-20) BUN 6 L (9-16) mg/dL Creatinine 0.72 (0.5-1.4) mg/dL Estim Creat Clear Calc 165.4 Estimated GFR > 60 Random Glucose 151 H (60-115) mg/dL Calcium 8.9 (8.4-10.2) mg/dL Total Bilirubin 6.2 H (0.0-1.0) mg/dL AST 50 H (5-37) U/L ALT 20 (0-40) U/L Alkaline Phosphatase 307 H (39-117) U/L Troponin I High Sens (<3.5-35.0) ng/L B-Natriuretic Peptide (<100) pg/mL Total Protein 7.5 (6.5-8.0) g/dL Albumin 3.0 L (3.5-5.0) g/dL Lipase 22 (8-78) U/L Influenza Type A (PCR) NEGATIVE (Negative) Influenza Type B (PCR) NEGATIVE (Negative) RSV RNA Qual (PCR) NEGATIVE (Negative) SARS-CoV-2 RNA (RT-PCR) NEGATIVE (Negative) 07/05/22 07/05/22 07/05/22 Range/Units 10:09 10:09 10:10 WBC 6.1 (4.8-10.8) X10*3/uL RBC 4.06 L (4.60-5.80) X10*6/uL Hgb 13.5 L (14.0-18.0) g/dl Hct 40.1 L (42.0-52.0) % MCV 98.8 H (80.0-98.0) fL MCH 33.3 H (27.0-33.0) pg MCHC 33.7 (31.0-36.0) g/dl RDW 13.2 (11.0-16.0) % Plt Count 143 L D (160-400) X10*3/uL MPV 9.0 L (9.4-12.4) fL Immature Gran % (Auto) 0.7 H (0.0-0.4) % Neut % (Auto) 64.4 (45-73) % Lymph % (Auto) 18.3 L (20-40) % Hancock % (Auto) 13.3 H (2-11) % Eos % (Auto) 1.8 (0-4) % Baso % (Auto) 1.5 (0-2) % Lymph # (Auto) 1.1 L (1.2-4.9) X10*3/uL Hancock # (Auto) 0.8 (0.1-1.2) X10*3/uL Eos # (Auto) 0.1 (0.0-0.4) X10*3/uL Baso # (Auto) 0.1 (0.0-0.2) X10*3/uL Abs Immat Gran (auto) 0.04 H (0.00-0.03) X10*3/uL Absolute Neuts (auto) 3.9 (2.0-8.3) x10*3/uL Absolute Nucleated RBC 0.000 (0.0-0.012) X10*3/uL Nucleated RBC % (auto) 0.0 (0.0-0.2) /100WBC PT (10.0-13.1) SEC INR (0.9-1.1) Sodium (135-145) mmol/L Potassium (3.3-5.1) mmol/L Chloride (96-108) mmol/L Carbon Dioxide (22-29) mmol/L Anion Gap (12-20) BUN (9-16) mg/dL Creatinine (0.5-1.4) mg/dL Estim Creat Clear Calc Estimated GFR Random Glucose (60-115) mg/dL Calcium (8.4-10.2) mg/dL Total Bilirubin (0.0-1.0) mg/dL AST (5-37) U/L ALT (0-40) U/L Alkaline Phosphatase (39-117) U/L Troponin I High Sens < 3.5 (<3.5-35.0) ng/L B-Natriuretic Peptide 33 (<100) pg/mL Total Protein (6.5-8.0) g/dL Albumin (3.5-5.0) g/dL Lipase (8-78) U/L Influenza Type A (PCR) (Negative) Influenza Type B (PCR) (Negative) RSV RNA Qual (PCR) (Negative) SARS-CoV-2 RNA (RT-PCR) (Negative) Independent Interpretation I performed an independent interpretation of an: EKG Interpretation: Sinus tachycardia, HR-116, STEMI, MN/QRS/QTC is within normal limits. Radiology Impression Radiologist Impression: My interpretation is in agreement with radiology's impression of imaging study. External Record Review External record reviewed: Office record, Outpatient record and Prior outpatient labs On last a left thoracentesis 05/29/2022 there was noted reactive appearing mesothelial cells with rare chronic inflammatory cells as well as blood. But on review of pathology report there is no malignancy identified. Critical Care Time Critical Care Time Critical Care Time: Yes Total Critical Care Time: 60 Attestation: I personally attest to this time spent taking care of the patient. Discharge Plan Discharge Clinical Impression: Dyspnea, Pleural effusion, left Patient Disposition: Home, Self-Care Instructions: Pleural Effusion (ED), Dyspnea (ED) Additional Instructions: 1. Resume all home medications as prescribed. 2. I still recommend that you stop drinking alcohol. 3. Please follow-up with your medical reimbursement manager as soon as possible for re- evaluation further investigation regarding the recurrence of your left pleural effusion. Return to the ER any time. Prescriptions: No Action Creon 24,000-76,000 -120,000 unit capsule,delayed release(DR/EC) 1 cap PO TID Qty: 90 3RF furosemide 40 mg tablet 80 mg PO DAILY Qty: 60 0RF spironolactone 100 mg tablet 200 mg PO DAILY Qty: 60 0RF omeprazole 40 mg capsule,delayed release(DR/EC) 1 cap PO DAILY paroxetine HCl 20 mg tablet 1 tab PO DAILY nicotine (polacrilex) 2 mg gum 2 mg buccal Q2H Qty: 100 0RF meclizine 12.5 mg tablet 1 tab PO TID PRN (Reason: Dizziness) hydroxyzine pamoate 25 mg capsule 25 - 50 mg PO DAILY albuterol sulfate [ProAir HFA] 90 mcg/actuation HFA aerosol inhaler 1 - 2 puff inhalation Q4-6H PRN (Reason: Shortness Of Breath) doxycycline hyclate 100 mg capsule 100 mg PO BID 10 Days Qty: 20 0RF prednisone 20 mg tablet See Rx Instructions PO DAILY 10 Days Qty: 15 0RF Rx Instructions: PO daily; Take 2 tabs daily x 5 days, then 1 tablet daily x 5 days folic acid 1 mg tablet 1 mg PO DAILY bupropion HCl 300 mg tablet extended release 24 hr 300 mg PO DAILY thiamine HCl (vitamin B1) 100 mg tablet 100 mg PO DAILY imipramine HCl 50 mg tablet 50 mg PO BEDTIME Qty: 30 6RF Xifaxan 550 mg tablet 550 mg PO BID Qty: 60 6RF lactulose 10 gram/15 mL solution 30 ml PO TID Referrals: Martin Avilez MD [Primary Care Provider] - Nawaf Alvarez MD [Physician] -
[2022-07-05 10:15] LABS: MANUAL DIFF FLAG NO
[2022-07-05 10:22] LABS: INTERNATIONAL NORM RATIO 1.3 (0.9-1.1)
[2022-07-05 10:24] LABS: Basophils Absolute Auto 0.1 X10*3/uL (0.0-0.2); Basophils Percent Auto 1.5 % (0-2); Eosinophils Absolute Auto 0.1 X10*3/uL (0.0-0.4); Eosinophils Percent Auto 1.8 % (0-4); Hematocrit 40.1 % (42.0-52.0); Hemoglobin 13.5 g/dl (14.0-18.0); Imm Gran Abs Auto 0.04 X10*3/uL (0.00-0.03); Imm Gran Pct Auto 0.7 % (0.0-0.4); Lymphocytes Absolute Auto 1.1 X10*3/uL (1.2-4.9); Lymphocytes Percent Auto 18.3 % (20-40); Mean Corpuscular HGB Conc 33.7 g/dl (31.0-36.0); Mean Corpuscular Hemoglobin 33.3 pg (27.0-33.0); Mean Corpuscular Volume 98.8 fL (80.0-98.0); Monocytes Absolute Auto 0.8 X10*3/uL (0.1-1.2); Monocytes Percent Auto 13.3 % (2-11); Neutrophils Absolute Auto 3.9 x10*3/uL (2.0-8.3); Neutrophils Percent Auto 64.4 % (45-73); Red Blood Count 4.06 X10*6/uL (4.60-5.80); Red Cell Distribution Width 13.2 % (11.0-16.0); White Blood Count 6.1 X10*3/uL (4.8-10.8)
[2022-07-05 10:25] LABS: Platelet Count 143 X10*3/uL (160-400)
[2022-07-05 10:30] LABS: Alanine Aminotransferase 20 U/L (0-40); Alkaline Phosphatase 307 U/L (39-117); Anion Gap 13 (12-20); Aspartate Amino Transferase 50 U/L (5-37); Bilirubin Total 6.2 mg/dL (0.0-1.0); Blood Urea Nitrogen 6 mg/dL (9-16); Calcium 8.9 mg/dL (8.4-10.2); Carbon Dioxide 23 mmol/L (22-29); Chloride 104 mmol/L (96-108); Creatinine Clr Calc Pharmacy 165.4; Estimated Glomerular Filt Rate > 60; Glucose Random 151 mg/dL (60-115); Potassium 3.7 mmol/L (3.3-5.1); Sodium 136 mmol/L (135-145); Total Protein 7.5 g/dL (6.5-8.0)
[2022-07-05 10:41] VITALS: BP 127/82; PULSE 116; RESP 22; O2SAT 93
[2022-07-05 10:41] LABS: Influenza A PCR NEGATIVE (Negative); Influenza B PCR NEGATIVE (Negative); Resp Syncy Virus RNA Qual PCR NEGATIVE (Negative); SARS COV2 PCR INHOUSE NEGATIVE (Negative)
[2022-07-05 10:42] LABS: Troponin-I High Sensitivity < 3.5 ng/L (<3.5-35.0)
[2022-07-05 11:00] LABS: Lipase 22 U/L (8-78)
[2022-07-05 11:09] LABS: B Type Natriuretic Peptide 33 pg/mL (<100)
[2022-07-05 12:19] VITALS: BP 136/85; PULSE 112; RESP 26; O2SAT 93
--- NOTE | 2022-07-05 12:25 | PC.NURSE ---
Pt resting comfortably watching TV. Aware of plan of care. Call zaidi within reach
--- NOTE | 2022-07-05 15:09 | PC.NURSE ---
Ultrasound to bring pt to thoracentesis.
[2022-07-05] MEDS: Lidocaine HCl 1 % MPF 5 ML VIAL 10 ML SUBCUT (16:13)
[2022-07-05 17:02] VITALS: BP 132/88; PULSE 110; RESP 20; TEMP 36.9; O2SAT 94
== END 2022-07-05 17:03 | disposition home or self-care (01) ==
PROVIDERS: Radiology Diagnostic Radiology; Emergency Provider Student in an Organized Health Care Education/Training Program; PCP Internal Medicine
DX: J90 Pleural effusion, not elsewhere classified (principal); R06.02 Shortness of breath; F17.210 Nicotine dependence, cigarettes, uncomplicated; Z71.6 Tobacco abuse counseling; Z20.822 Contact with and (suspected) exposure to COVID-19; Z20.828 Contact with and (suspected) exposure to other viral communicable diseases; Z79.899 Other long term (current) drug therapy
CPT/HCPCS: 0241U; 32555; 36415; 71045; 71046; 80053; 83690; 83880; 84484; 85025; 85610; 93005; 99285

== ENCOUNTER → 2022-07-11 08:49 | Outpatient (BNVA) | payer MEDICAID, SELFPAY | PROVIDERS: PCP Internal Medicine; Visit Provider Hospitalist | DX: R06.00 Dyspnea, unspecified (principal); I31.39 Other pericardial effusion (noninflammatory); J90 Pleural effusion, not elsewhere classified; J94.8 Other specified pleural conditions; K70.30 Alcoholic cirrhosis of liver without ascites; R00.0 Tachycardia, unspecified | CPT/HCPCS: 99212 ==

== ENCOUNTER 2022-07-12 12:10 | Day surgery (SDC) | payer MEDICAID, SELFPAY ==
--- NOTE | ~2022-07-12 | XR_ITS ---
EXAMINATION: XR CHEST CLINICAL INFORMATION: Post left-sided thoracentesis COMPARISON: Postthoracentesis chest radiograph from 07/05/2022 TECHNIQUE: Frontal view of the chest was obtained. FINDINGS: Small residual left pleural effusion is seen. No pneumothorax. The heart and pulmonary vessels appear normal. Left basilar atelectasis. XR/XR chest 1V IMPRESSION: Small residual left pleural effusion status post thoracentesis. No pneumothorax.
--- NOTE | ~2022-07-12 | US_ITS ---
EXAMINATION: US ULTRASOUND-GUIDED THORACENTESIS CLINICAL INFORMATION: Left pleural effusion. COMPARISON: Ultrasound-guided left thoracentesis 07/05/2022. TECHNIQUE: Following explaining ultrasound-guided left thoracentesis procedure, benefits and risks, a written consent was obtained. Patient was placed upright sitting on ultrasound stretcher. Preliminary ultrasound imaging was obtained through the posterior chest. An optimal site was selected, cleaned and draped in the usual sterile manner. 1% local Xylocaine was administered at the puncture site. Through a small skin incision, a 5 [place] catheter was advanced into the pleural space. After observing fluid return, the stylet was withdrawn and catheter connected to vacuum bottle via connecting cannula. After obtaining all fluid and observing no more fluid return, catheter was withdrawn and complete hemostasis was achieved at the puncture site. Simple dressing was applied postprocedure. Patient tolerated the procedure extremely well. FINDINGS: On preliminary ultrasound imaging, there was a moderate amount of fluid seen in the left pleural space. Approximately 1.6 L of cloudy yellowish fluid was drained from the left chest. The drainage was stopped as patient had minimal pain on deep inspiration. None of this fluid was sent to lab. US/US thoracentesis IMPRESSION: Successful ultrasound-guided therapeutic left thoracentesis performed without immediate complications. Chest x-ray performed subsequently revealed no pneumothorax and small left residual fluid remaining.
[2022-07-12 12:32] VITALS: BMI 29.6
[2022-07-12] MEDS: Lidocaine HCl 1 % MPF 5 ML VIAL 10 ML SUBCUT (15:25)
[2022-07-12 15:42] VITALS: BP 131/91; PULSE 112; RESP 22; TEMP 37.6; O2SAT 93
[2022-07-12 15:57] VITALS: BP 137/89; PULSE 107; RESP 20; TEMP 37.4; O2SAT 94
[2022-07-12 16:13] VITALS: BP 142/90; PULSE 103; RESP 20; TEMP 36.7; O2SAT 96
== END 2022-07-12 16:27 | disposition home or self-care (01) ==
PROVIDERS: Radiology Diagnostic Radiology; PCP Internal Medicine; Visit Provider Hospitalist
DX: J90 Pleural effusion, not elsewhere classified (principal); J94.8 Other specified pleural conditions; K70.30 Alcoholic cirrhosis of liver without ascites; I85.10 Secondary esophageal varices without bleeding; G89.29 Other chronic pain; R10.9 Unspecified abdominal pain; I31.39 Other pericardial effusion (noninflammatory); R00.0 Tachycardia, unspecified; R06.00 Dyspnea, unspecified; K21.9 Gastro-esophageal reflux disease without esophagitis; R79.89 Other specified abnormal findings of blood chemistry; F17.210 Nicotine dependence, cigarettes, uncomplicated
CPT/HCPCS: 32555; 71045

== ENCOUNTER → 2022-07-13 08:13 | Outpatient (BNVA) | payer MEDICAID, SELFPAY | PROVIDERS: PCP Internal Medicine; Referring Provider Hospitalist; Visit Provider Internal Medicine | DX: R00.0 Tachycardia, unspecified (principal); J90 Pleural effusion, not elsewhere classified; K70.30 Alcoholic cirrhosis of liver without ascites | CPT/HCPCS: 99202 ==

== ENCOUNTER 2022-08-01 08:18 | Outpatient (REF) | payer MEDICAID, SELFPAY ==
[2022-08-01 10:31] LABS: Anion Gap 20 (12-20); Blood Urea Nitrogen 10 mg/dL (9-16); Calcium 9.6 mg/dL (8.4-10.2); Carbon Dioxide 25 mmol/L (22-29); Chloride 97 mmol/L (96-108); Creatinine Clr Calc Pharmacy 138.2; Estimated Glomerular Filt Rate > 60; Glucose Random 124 mg/dL (60-115); Potassium 4.5 mmol/L (3.3-5.1); Sodium 137 mmol/L (135-145)
[2022-08-01 13:36] LABS: Potassium Urine Random 56.3 mmol/L
[2022-08-11 08:32] LABS: Phosphatidylethanol 16:0-18:1 210
== END 2022-08-01 08:19 | disposition home or self-care (01) ==
LOC: HO.LAB 08:18
PROVIDERS: PCP Internal Medicine; Visit Provider Internal Medicine
DX: K70.30 Alcoholic cirrhosis of liver without ascites (principal); K72.90 Hepatic failure, unspecified without coma; K76.6 Portal hypertension; J94.8 Other specified pleural conditions; F10.21 Alcohol dependence, in remission; D36.9 Benign neoplasm, unspecified site; F17.210 Nicotine dependence, cigarettes, uncomplicated; R10.9 Unspecified abdominal pain; Z79.899 Other long term (current) drug therapy
CPT/HCPCS: 36415; 80048; 80321; 84133; 84300; 99212

== ENCOUNTER → 2022-09-01 10:26 | Outpatient (BNVA) | payer MEDICAID, SELFPAY | PROVIDERS: PCP Internal Medicine; Visit Provider Nurse Practitioner Psychiatric/Mental Health | DX: F10.20 Alcohol dependence, uncomplicated (principal) | CPT/HCPCS: 99202 ==

== ENCOUNTER 2022-09-12 09:32 | Outpatient (REF) | payer MEDICAID, SELFPAY ==
--- NOTE | ~2022-09-12 | US_ITS ---
EXAMINATION: US ABDOMEN CLINICAL INFORMATION: Alcoholic cirrhosis of the liver. COMPARISON: CT abdomen pelvis 06/02/2022 TECHNIQUE: Real-time imaging of the right upper quadrant abdominal viscera. Color-flow Doppler imaging was also utilized FINDINGS: PANCREAS: The pancreas appears unremarkable, without masses or ductal dilatation, with the exception of the tail which is obscured by bowel gas. LIVER: The liver is enlarged with increased echogenicity and a nodular border consistent with cirrhosis. The liver measures at least 21.2 cm in cephalocaudad dimension. No focal hepatic lesion. There is no intrahepatic biliary duct dilatation seen. Of note, nonocclusive thrombus is present in the main portal vein. This was not present at the time of the prior 06/02/2022 CT scan Hepatofugal flow is noted in the left portal vein GALLBLADDER: A calcified gallbladder wall polyp is present measuring 3 x 5 x 3 mm. The gallbladder wall appears thickened at 9 mm. The gallbladder is physiologically distended without pericholecystic fluid. COMMON BILE DUCT: Normal in caliber measuring 0.5 cm in diameter. RIGHT KIDNEY: In the midpole 2.6 cm Bosniak class II renal cyst is present with a tiny area of calcification in the wall similar to the 06/02/2022 CT scan. This Needs no additional imaging or follow-up. No hydronephrosis. No renal calculi or focal parenchymal lesions. The kidney measures 12.8 cm in maximum dimension. FREE FLUID: Mild ascites is present. In addition, a right-sided pleural effusion is noted. US/US abdomen limited IMPRESSION: 1. Enlarged cirrhotic appearing liver with hepatofugal flow in the left portal vein. 2. 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 Small amount of ascites and right-sided pleural effusion. 4. Thickened gallbladder wall with calcified polyp
== END 2022-09-12 09:33 | disposition home or self-care (01) ==
LOC: HO.US 09:32
PROVIDERS: PCP Internal Medicine; Visit Provider Internal Medicine
DX: K70.30 Alcoholic cirrhosis of liver without ascites (principal)
CPT/HCPCS: 76705

== ENCOUNTER → 2022-09-20 08:21 | Outpatient (BNVA) | payer MEDICAID, SELFPAY | PROVIDERS: PCP Internal Medicine; Visit Provider Hospitalist | DX: J90 Pleural effusion, not elsewhere classified (principal); J94.8 Other specified pleural conditions; K70.30 Alcoholic cirrhosis of liver without ascites; R06.00 Dyspnea, unspecified | CPT/HCPCS: 99212 ==

== ENCOUNTER 2022-10-24 11:07 | Outpatient (REF) | payer MEDICAID, SELFPAY ==
--- NOTE | ~2022-10-24 | XR_ITS ---
EXAMINATION: XR CHEST CLINICAL INFORMATION: Pleural effusion. COMPARISON: Chest 07/12/2022 TECHNIQUE: 2 views of the chest were obtained. FINDINGS: No significant abnormality is noted involving the heart, lungs, mediastinum, bony thorax or soft tissues. XR/XR chest 2V IMPRESSION: Unremarkable chest examination.
== END 2022-10-24 11:08 | disposition home or self-care (01) ==
LOC: HO.XRAY 11:07
PROVIDERS: PCP Internal Medicine; Visit Provider Hospitalist
DX: J90 Pleural effusion, not elsewhere classified (principal)
CPT/HCPCS: 71046

== ENCOUNTER 2022-10-26 07:17 | Day surgery (SDC) | payer MEDICAID, SELFPAY ==
--- NOTE | 2022-10-25 12:18 | HO.ANESPROP2 ---
Documented by User: Pari Arreola NP 10/25/22 12:23 HPI - Anesthesia Eval Consult details Narrative: 57yo M for Upper Endoscopy ETOH cirrhosis (portal hypertension gastropathy, esophageal varices, ascites, hepatic hydrothorax, hepatic encephalopathy) Last EGD with banding 10/2021 with TIVA Continue ETOH abuse Thoracentesis 06/2022, stable at pulmo f/u 08/2022 [facility] Active Problems Active Problems: All Active Problems (Updated 10/23/22 @ 11:56 by Galilea Cerda RN) Peripheral neuropathy (Acute) Esophageal varices (Acute) Spinal stenosis (Acute) Chronic low back pain (Acute) Degenerative disc disease, cervical (Acute) Multiple adenomatous polyps (Acute) Neuropathic pain (Acute) Acute alcoholic pancreatitis (Acute) Pleural effusion (Acute) Irritable bowel syndrome with diarrhea (Acute) Elevated liver function tests (Acute) Alcohol withdrawal (Acute) Decompensation of cirrhosis of liver (Acute) Portal vein thrombosis (Acute) Alcoholic cirrhosis of liver (Acute) Hydrothorax (Acute) Bronchopneumonia (Acute) Hepatopulmonary syndrome (Acute) Hyperammonemia (Acute) Alcohol use disorder, moderate, in early remission (Acute) Pericardial effusion (Acute) Dyspnea (Acute) Blood D-dimer assay positive (Acute) Acute pancreatitis (Acute) intermediate current use of diuretic (Acute) Alcohol use disorder, moderate, dependence (Acute) Recurrent left pleural effusion (Acute) Pleural effusion (Acute) Pericardial effusion (Acute) Tachycardia (Acute) Dyspnea (Acute) Alcoholism (Acute) Past Medical History Medical History (Updated 10/23/22 @ 11:56 by Galilea Cerda RN) Alcoholism Chronic abdominal pain Cirrhosis Dyspnea Elevated LFTs GERD (gastroesophageal reflux disease) Gout Hydropneumothorax Pericardial effusion Pleural effusion Pleural effusion on right Recurrent left pleural effusion Tachycardia Family History Family History Mother Cancer Sister Cancer Family history of problems with anesthesia: No Surgical History Surgical History (Updated 10/23/22 @ 11:40 by Galilea Cerda RN) H/O cervical spine surgery H/O colonoscopy H/O hemicolectomy History of thoracentesis Hx of esophagogastroduodenoscopy History of Problems with Anesthesia: No Social History Social History Household Members: Other Household Members Other:: roommate Housing: Apartment Do you presently have visiting nurse or other home services: No Alcohol intake: current Alcohol intake frequency: 0-2 drinks per day Alcohol type: hard liquor Patient Tobacco Use Status: Former Tobacco user Quit Date: 1 mth ago Tobacco use type: Cigarette Cigarettes Per Day: 3 Years Smoked: 30 Second Hand Smoke Exposure: No Substance Use Type: Marijuana Are you DNR?: No Advance Directives: No Advance Directives Information Provided: Yes service: No Current occupational status: unemployed Meds Allergies Allergy/AdvReac Type Severity Reaction Status Date / Time No Known Drug Allergies Allergy Mild NONE Verified 09/20/22 08:33 [NO KNOWN DRUG ALLERGIES] Home Medications Medication Instructions Recorded Confirmed Last Taken Type bupropion HCl 300 mg 24 hr tablet, 300 mg PO DAILY 06/10/21 07/13/22 12/05/21 History extended release folic acid 1 mg tablet 1 mg PO DAILY 06/10/21 07/13/22 12/05/21 History thiamine HCl (vitamin B1) 100 mg 100 mg PO DAILY 06/10/21 07/13/22 12/05/21 History tablet albuterol sulfate 90 mcg/actuation 1 - 2 puff inhalation Q4-6H PRN 01/26/22 07/13/22 Unknown History aerosol inhaler (ProAir HFA) Shortness Of Breath hydroxyzine pamoate 25 mg capsule 25 - 50 mg PO DAILY 01/26/22 07/13/22 Unknown History lactulose 10 gram/15 mL oral 30 ml PO TID 03/08/22 07/13/22 Unknown History solution lorazepam 0.5 mg tablet 0.5 mg PO DAILY PRN anxiety attack 07/13/22 07/13/22 Unknown History meclizine 12.5 mg tablet 12.5 mg PO TID PRN Dizziness 07/13/22 07/13/22 Unknown History omeprazole 40 mg capsule,delayed 40 mg PO DAILY 07/13/22 07/13/22 Unknown History release paroxetine HCl 20 mg tablet 20 mg PO DAILY 07/13/22 07/13/22 Unknown History Exam Exam Date and Time: October 25, 2022 121 Pertinent Lab Results Pertinent Lab Results: Laboratory Tests 07/05/22 08/01/22 10:10 09:38 WBC 6.1 Hgb 13.5 L Hct 40.1 L Plt Count 143 L D Sodium 137 Potassium 4.5 D Chloride 97 Carbon Dioxide 25 BUN 10 Creatinine 0.77 Narrative Narrative: EKG 06/2022 Vent. Rate : 116 BPM ? ? Atrial Rate : 116 BPM ?? P-R Int : 168 ms? QRS Dur : 084 ms ? ? QT Int : 330 ms ? ? ? P-R-T Axes : 052 021 036 degrees ?? QTc Int : 458 ms ? Sinus tachycardia Otherwise normal ECG When compared with ECG of 02-JUN-2022 05:41, No significant change was found ECHO 2021 Conclusions: - 1. Technically very limited study? 2. On off axis views left ventricular systolic function appears? normal ? 3. No significant pericardial effusion noted with normal IVC size and collapsibility ? ? US abdomen limited 08/2022 IMPRESSION: 1.? Enlarged cirrhotic appearing liver with hepatofugal flow in the left portal vein. 2.? Nonocclusive new thrombus in the main portal vein 3.? Small amount of ascites and right-sided pleural effusion. 4.? Thickened gallbladder wall with calcified polyp Assessment and Plan Assessment Anesthesia Assessment: Chart Reviewed Final Anesthetic Review Family History of Problems with Anesthesia: No History of Problems with Anesthesia: No Documented by User: Domi Oliveros DO 10/26/22 09:12 [facility] Past Medical History Medical History (Updated 10/23/22 @ 11:56 by Galilea Cerda, DANIA) Alcoholism Chronic abdominal pain Cirrhosis Dyspnea Elevated LFTs GERD (gastroesophageal reflux disease) Gout Hydropneumothorax Pericardial effusion Pleural effusion Pleural effusion on right Recurrent left pleural effusion Tachycardia Family History Family History Mother Cancer Sister Cancer Surgical History Surgical History (Updated 10/23/22 @ 11:40 by Galilea Cerda RN) H/O cervical spine surgery H/O colonoscopy H/O hemicolectomy History of thoracentesis Hx of esophagogastroduodenoscopy Social History Social History Household Members: Other Household Members Other:: roommate Housing: Apartment Do you presently have visiting nurse or other home services: No Alcohol intake: current Alcohol intake frequency: 0-2 drinks per day Alcohol type: hard liquor Patient Tobacco Use Status: Former Tobacco user Quit Date: 1 mth ago Tobacco use type: Cigarette Cigarettes Per Day: 3 Years Smoked: 30 Second Hand Smoke Exposure: No Substance Use Type: Marijuana Are you DNR?: No Advance Directives: No Advance Directives Information Provided: Yes service: No Current occupational status: unemployed Meds Allergies Allergy/AdvReac Type Severity Reaction Status Date / Time No Known Drug Allergies Allergy Mild NONE Verified 09/20/22 08:33 [NO KNOWN DRUG ALLERGIES] Home Medications Medication Instructions Recorded Confirmed Last Taken Type bupropion HCl 300 mg 24 hr tablet, 300 mg PO DAILY 06/10/21 07/13/22 12/05/21 History extended release folic acid 1 mg tablet 1 mg PO DAILY 06/10/21 07/13/22 12/05/21 History thiamine HCl (vitamin B1) 100 mg 100 mg PO DAILY 06/10/21 07/13/22 12/05/21 History tablet albuterol sulfate 90 mcg/actuation 1 - 2 puff inhalation Q4-6H PRN 01/26/22 07/13/22 Unknown History aerosol inhaler (ProAir HFA) Shortness Of Breath hydroxyzine pamoate 25 mg capsule 25 - 50 mg PO DAILY 01/26/22 07/13/22 Unknown History lactulose 10 gram/15 mL oral 30 ml PO TID 03/08/22 07/13/22 Unknown History solution lorazepam 0.5 mg tablet 0.5 mg PO DAILY PRN anxiety attack 07/13/22 07/13/22 Unknown History meclizine 12.5 mg tablet 12.5 mg PO TID PRN Dizziness 07/13/22 07/13/22 Unknown History omeprazole 40 mg capsule,delayed 40 mg PO DAILY 07/13/22 07/13/22 Unknown History release paroxetine HCl 20 mg tablet 20 mg PO DAILY 07/13/22 07/13/22 Unknown History Exam Exam Date and Time: October 26, 2022 0801 Airway Mallampati Class: III TM Dist: >3cm Neck ROM: Full Loose/Missing/Broken Teeth: Yes (Broken teeth) and Upper (Broken teeth - multiple) Heart: S1S2 Lungs: CTAB Assessment and Plan Assessment Anesthesia Assessment: Anesthesia Plan Discussed Final Anesthetic Review NPO: Yes ASA Class: III Final Preanesthetic Review: No Changes in Pt Med Stat, Meds/Allgs Chart Reviewed, Consent Obtained/Reviewed and Anes Risks/Benef Reviewed Patient Risk: Intermediate Procedure Risk: Low Anesthetic Plan Anesthetic Plan: MAC: and Agree w/ Assess. and Plan Disposition: Standard PACU
[2022-10-26 07:35] VITALS: BMI 28.5
[2022-10-26 07:53] VITALS: BP 131/93; PULSE 126; RESP 18; TEMP 36.1; O2SAT 96
[2022-10-26] MEDS: Lactated Ringers 1,000 ML 50 ML IVCONT (08:13)
--- NOTE | 2022-10-26 08:43 | P.HPSUR_ITS ---
Pre-Procedural Eval Section A Date of Service: 10/26/22 The patient is an INPATIENT: No The History & Physical has been completed within 30 days and I have reviewed it.: No Section B Chief Complaint: FU of esophageal varices, abdominal pain Relevant Family History (Specify if Yes): No Relevant Social History: Tobacco Use (Former smoker) Present Medications: see Short Stay Collaborative assessment Medical History: Significant History (Chronic abdominal pain Cirrhosis Dyspnea Dyspnea Elevated LFTs GERD (gastroesophageal reflux disease) Gout Hydropneumot horax Pericardial effusion Pleural effusion Pleural effusion on right Recurrent left pleural effusion) History of Previous Operations: Relevant previous surgery/procedure and date(s) (H/O cervical spine surgery H/O colonoscopy H/O hemicolectomy) Allergies: Allergies Allergy/AdvReac Type Severity Reaction Status Date / Time No Known Drug Allergies Allergy Mild NONE Verified 09/20/22 08:33 [NO KNOWN DRUG ALLERGIES] Review of Systems Sugical H&P ROS: Negative: Constitution, Cardiovascular and Respiratory and Yes, Specify: Gastrointestinal (abdominal pain x 1 week) Exam Surgical H&P Exam: Normal: Heart, Normal: Lungs and Normal: Extremities Plan Diagnosis/Plan: Unchanged I have reviewed the history and physical and performed a pertinent physical examination on my patient. No changes have occurred unless specified. Time Spent With Patient Time: Total time managing care of this patient today ____ minutes.
--- NOTE | 2022-10-26 09:06 | PC.NURSE ---
anestheisa aware of pulse tachy hydrating pt nad
--- NOTE | 2022-10-26 09:32 | W.PM.OPN ---
Operative Note Operative Note Date of Service: 10/26/22 Narrative: FLEXIBLE TRANSORAL UPPER GASTROINTESTINAL ENDOSCOPY WITH BIOPSIES AND ESOPHAGEAL BAND LIGATION Pre-op diagnosis: Cirrhosis - follow-up of esophageal varices, RUQ/epigastric pain x 1 week. Post-op diagnosis: Esophageal and gastric varices, portal hypertensive gastropathy, gastritis Endoscopist:? Jannet Graham MD Anesthesia:?MAC Consent: Indications for the procedure and potential complications of bleeding, perforation, reaction to medications and missed diagnosis were discussed with the patient and informed consent was obtained. Instrument: Olympus GIF H 190 mid size upper endoscope Monitoring: Vital signs and clinical assessment, continuous EKG monitoring, Pulse oximetry, Carbon Dioxide monitoring and blood pressure monitoring were done throughout the procedure. Procedure: The patient was placed in the left lateral decubitis position and pre-procedure medications were administered and a bite block was placed. The endoscope was inserted into the mouth and advanced under direct vision to the third part of duodenum. A careful inspection was made as the upper endoscope was withdrawn including a retroflexed examination of the proximal stomach; Findings and interventions are described below. Findings: Larynx: Normal Esophagus: GE junction at 38 cms, hiatal hernia 38 to 44 cms. No esophagitis or Unger's. Four column grade 4 esophageal varices from 28 to 38 cms with red briseyda signs. Band ligation was performed and 7 bands were placed with flattening of the varices. Stomach: Mosaic pattern in the stomach consistent with portal hypertensive gastropathy. Mild gastric erythema. Biopsies were obtained. Grade 2-3 gastric varices in the fundus without high risk stigmata for bleeding. Grade 3 flap valve on retroflexed examination of the cardia. Duodenum: Normal bulb and descending duodenum Intervention: Biopsies and esophageal band ligation as noted above Impression and Post Procedure Diagnosis: Endoscopy Findings: ESOPHAGUS: GE junction at 38 cms, hiatal hernia 38 to 44 cms. No esophagitis or Unger's. Four column grade 4 esophageal varices from 28 to 38 cms with red briseyda signs. Band ligation was performed and 7 bands were placed with flattening of the varices. STOMACH: Mosaic pattern in the stomach consistent with portal hypertensive gastropathy. Mild gastric erythema. Biopsies were obtained. Grade 2-3 gastric varices in the fundus without high risk stigmata for bleeding and Grade 3 flap valve on retroflexed examination of the cardia. Plan: Await pathology results Patient has an appointment on 11/08/22 in the [facility] with Dr Hawk. Repeat EGD in [address] Hawk Above findings were reviewed with the patient and Esophageal Banding handouts were given in the discharge area BIOPSIES SHOWED: Stomach, antrum, biopsy:? Antral-type mucosa with mild chronic inactive inflammation; no Helicobacter organisms seen.
[2022-10-26 10:03] VITALS: BP 156/105; PULSE 120; RESP 18; TEMP 36.1; O2SAT 96
[2022-10-26 10:18] VITALS: BP 148/107; PULSE 112; RESP 16; O2SAT 96
== END 2022-10-26 10:53 | disposition home or self-care (01) ==
PROVIDERS: PCP Internal Medicine; Visit Provider Internal Medicine Gastroenterology
PROC: 0DJ08ZZ Inspection of Upper Intestinal Tract, Via Natural or Artificial Opening Endoscopic (ICD-10-PCS; CPT 43235; principal; 2022-10-26 09:10)
DX: I85.00 Esophageal varices without bleeding (principal); I86.4 Gastric varices; K29.50 Unspecified chronic gastritis without bleeding; G89.29 Other chronic pain; F10.20 Alcohol dependence, uncomplicated; K74.60 Unspecified cirrhosis of liver; K76.6 Portal hypertension; K31.89 Other diseases of stomach and duodenum; K72.90 Hepatic failure, unspecified without coma; K21.9 Gastro-esophageal reflux disease without esophagitis; K44.9 Diaphragmatic hernia without obstruction or gangrene; R79.89 Other specified abnormal findings of blood chemistry; I31.39 Other pericardial effusion (noninflammatory); J90 Pleural effusion, not elsewhere classified; J93.83 Other pneumothorax; M10.9 Gout, unspecified; Z90.49 Acquired absence of other specified parts of digestive tract; F17.210 Nicotine dependence, cigarettes, uncomplicated
CPT/HCPCS: 43244; 43239; 88305; 88342

== ENCOUNTER 2022-10-27 11:09 | Inpatient (IN) | payer MEDICAID, SELFPAY ==
[2022-10-27] VITALS (7 sets, daily range): BP systolic 153–169; BP diastolic 87–107; PULSE 106–112; RESP 13–20; TEMP 36.4–37.1; O2SAT 94–97; BMI 27.6; BMI 28.8
--- NOTE | ~2022-10-27 | US_ITS ---
EXAMINATION: US ABDOMEN LIMITED CLINICAL INFORMATION: Right upper quadrant pain. COMPARISON: CT scan of the abdomen and pelvis performed today as well as on 06/02/2022, abdominal ultrasound dated 09/12/2022. TECHNIQUE: Real-time imaging of the right upper quadrant abdominal viscera. FINDINGS: PANCREAS: Mild heterogeneity. No pancreatic ductal dilatation. Color Doppler showed no abnormal vascular flow. LIVER: Hepatic cirrhosis without focal abnormality. Mild perihepatic fluid superiorly. GALLBLADDER: Small echogenic polyp versus adherent calculus measuring 0.4 cm. No other significant abnormality. COMMON BILE DUCT: Normal in caliber measuring 0.6 cm in diameter. RIGHT KIDNEY: 11.6 cm. An interpolar echogenic focus measures a 0.5 cm. An adjacent anechoic cyst measures 1.9 cm. Color Doppler showed no abnormal vascular flow. US/US abdomen limited IMPRESSION: 1. Hepatic cirrhosis without focal abnormality. 2. Mild perihepatic fluid superiorly. 3. Mild heterogeneity in the pancreas without pancreatic ductal dilatation. Please refer to the report from the CT scan of the abdomen and pelvis from today for more detailed findings.
--- NOTE | ~2022-10-27 | CT_ITS ---
EXAMINATION: CT ABDOMEN AND PELVIS WITHOUT CONTRAST CLINICAL INFORMATION: Abdominal pain, history of cirrhosis COMPARISON: 06/02/2022 TECHNIQUE: Multidetector volumetric imaging was performed from the superior aspect of the liver through the pubic symphysis. Sagittal and coronal reformatted images were obtained on the technologist's workstation. This CT examination was performed using dose optimization techniques as appropriate, variously including the following: *Automated exposure control *Adjustment of mA and/or kV according to patient size (this includes techniques or standardized protocols for targeted exams where dose is matched to indication/reason for exam; i.e. extremities or head) *Use of iterative reconstruction technique DLP: 678 mGy-cm FINDINGS: LUNG BASES: The visualized lung bases are unremarkable. Previously seen bilateral pleural effusions have resolved. LIVER, GALLBLADDER, AND BILIARY TREE: The liver is nodular in contour with enlargement of the left and caudate lobes consistent with cirrhosis. Prominent vessels are evident anterior to the liver consistent with recanalization of the paraumbilical veins. There are also prominent vessels about the distal esophagus suggesting esophageal varices there is a small amount of perihepatic ascites, as on the prior examination. No biliary duct dilatation or hepatic mass is detected, allowing for the limitations of this unenhanced examination. The gallbladder is unremarkable. PANCREAS: Peripancreatic infiltration is again evident, predominantly about the head, neck and body, extending posteriorly about the celiac and mesenteric axes, and into the torres hepatis. Mild peripancreatic adenopathy is not significantly changed. A peripancreatic node measuring 2.6 x 1.5 cm reflects the largest node, posterior to the splenoportal confluence. SPLEEN: Enlarged, measuring 6.4 cm long. ADRENAL GLANDS: Unremarkable. KIDNEYS AND URETERS: A low-density lesion in the midpole the right kidney, likely a cyst, is stable. There is no obstructive uropathy. No renal calculi are detected. BLADDER: Unremarkable. GASTROINTESTINAL TRACT: Ileocolic anastomosis is again evident. No dilated large or small bowel loops are identified. There is fecal distention of the rectum, up to 6.2 cm. Sigmoid diverticulosis is also again evident without diverticulitis. The stomach is incompletely distended but appears similar in morphology to the prior study with a circumferentially thickened wall.. ABDOMINAL WALL: Very small bilateral fat-containing inguinal hernias are unchanged. LYMPH NODES: Stable upper abdominal adenopathy, as described above. VASCULAR: Unremarkable. PELVIC VISCERA: Unremarkable. OSSEOUS STRUCTURES: Unremarkable. CT/CT abdomen pelvis wo IV con IMPRESSION: 1. Cirrhosis, splenomegaly, small perihepatic ascites, and prominent upper abdominal vasculature including recanalized paraumbilical vein and esophageal varices, consistent with portal hypertension. 2. No change in peripancreatic infiltration and adenopathy, most likely on the basis of chronic pancreatitis, though both superimposed acute pancreatitis and underlying pancreatic neoplasm would be difficult to exclude on this unenhanced examination. 3. Circumferential thickening of the stomach, similar in appearance to the prior study, raising concern of gastric neoplastic infiltration or gastritis. 4. Constipation. Fleischner guidelines were followed.
--- NOTE | 2022-10-27 11:22 | ED.NAVMDI ---
HPI - Nausea/Vomiting/Diarrhea General Chief complaint: Abdominal Pain Stated complaint: dehydration vomiting Time Seen by Provider: 10/27/22 12:42 Related Data Home Medications Medication Instructions Recorded Confirmed bupropion HCl 300 mg 24 hr tablet, 300 mg PO DAILY 06/10/21 07/13/22 extended release folic acid 1 mg tablet 1 mg PO DAILY 06/10/21 07/13/22 thiamine HCl (vitamin B1) 100 mg 100 mg PO DAILY 06/10/21 07/13/22 tablet albuterol sulfate 90 mcg/actuation 1 - 2 puff inhalation Q4-6H PRN 01/26/22 07/13/22 aerosol inhaler (ProAir HFA) Shortness Of Breath hydroxyzine pamoate 25 mg capsule 25 - 50 mg PO DAILY 01/26/22 07/13/22 lactulose 10 gram/15 mL oral 30 ml PO TID 03/08/22 07/13/22 solution lorazepam 0.5 mg tablet 0.5 mg PO DAILY PRN anxiety attack 07/13/22 07/13/22 meclizine 12.5 mg tablet 12.5 mg PO TID PRN Dizziness 07/13/22 07/13/22 omeprazole 40 mg capsule,delayed 40 mg PO DAILY 07/13/22 07/13/22 release paroxetine HCl 20 mg tablet 20 mg PO DAILY 07/13/22 07/13/22 Previous Rx's Medication Instructions Recorded imipramine HCl 50 mg tablet 50 mg PO BEDTIME #30 tabs 09/16/21 ldmeto-iqxexggo-bgkoihw 1 cap PO TID #90 caps 02/28/22 24,000-76,000-120,000 unit capsule,delayed rel (Creon) furosemide 40 mg tablet 120 mg PO DAILY 30 days #90 tabs 07/24/22 spironolactone 100 mg tablet 300 mg PO DAILY 30 days #90 tabs 07/24/22 food supplemt, lactose-reduced 1 ea PO BID 30 days #14,220 mL 08/01/22 0.06 gram-1.5 kcal/mL oral liquid (Boost Plus) rifaximin 550 mg tablet (Xifaxan) 550 mg PO BID #60 tabs 08/31/22 acamprosate 333 mg tablet,delayed 666 mg PO TID #180 tabs 09/05/22 release Allergies Allergy/AdvReac Type Severity Reaction Status Date / Time No Known Drug Allergies Allergy Mild NONE Verified 10/27/22 11:27 [NO KNOWN DRUG ALLERGIES] PMFSH Past Medical History Medical History Alcoholism Chronic abdominal pain Cirrhosis Dyspnea Elevated LFTs GERD (gastroesophageal reflux disease) Gout Hydropneumothorax Pericardial effusion Pleural effusion Pleural effusion on right Recurrent left pleural effusion Tachycardia Surgical History (Updated 10/23/22 @ 11:40 by Galilea Cerda RN) H/O cervical spine surgery H/O colonoscopy H/O hemicolectomy History of thoracentesis Hx of esophagogastroduodenoscopy Family History Family History Mother Cancer Sister Cancer Social History Social History Household Members: Other Household Members Other:: roommate Housing: Apartment Do you presently have visiting nurse or other home services: No Alcohol intake: former Patient Tobacco Use Status: Former Tobacco user Quit Date: 1 mth ago Tobacco use type: Cigarette Cigarettes Per Day: 3 Years Smoked: 30 Smoked in Last 30 Days: No Second Hand Smoke Exposure: No Use of substances other than those prescribed or required for medical reasons: Yes Substance Use Type: Marijuana Advance Directives: No Advance Directives Information Provided: Yes service: No Current occupational status: unemployed Physical Exam Vital Signs: Vital Signs: Last Vital Signs Temp 98.8 F 10/27/22 11:22 Pulse 111 H 10/27/22 15:00 Resp 16 10/27/22 15:00 BP 163/101 H 10/27/22 15:00 Pulse Ox 96 10/27/22 15:00 O2 Del Method Room Air 10/27/22 15:00 BMI result Body Mass Index 27.6 Course Course Course Narrative: RME - 57 yo male with history of alcoholic cirrhosis, history of portal vein thrombosis, pancreatitis, esophageal varices, heptopulmonary syndrome, pericardial effusion, hydrothorax who presents to the ER for evaluation of N/V and abdominal pain for the last 6 days. No blood in his vomitus. He had an endoscopy yesterday and varices were banded. Last BM 3 days ago. Last ETOH drink 6 days ago. He reports the pain is mostly in his RUQ and sometimes epigastric area. Pain is worse after EGD yesterday. Tachycardic in triage. Plan: labs, EKG, RUQ U/S with doppler Medications Administered Discontinued Medications Generic Name Dose Route Start Last Admin Trade Name Frepricila PRN Reason Stop Dose Admin Hydromorphone HCl 0.5 mg 10/27/22 14:32 10/27/22 14:59 Hydromorphone Hcl 0.5 Mg/0.5 Ml Syringe IVPUSH 10/27/22 14:33 0.5 mg ONCE ONE Administration Protocol Sodium Chloride 1,000 mls @ 999 mls/hr 10/27/22 12:45 10/27/22 14:53 Ns IVCONT 10/27/22 13:45 Infused .Q1H1M RYAN Infusion Sodium Chloride 1,000 mls @ 999 mls/hr 10/27/22 14:30 10/27/22 15:26 Ns IVCONT 10/27/22 15:30 Infused .Q1H1M RYAN Infusion Insulin Human Lispro 10 unit 10/27/22 12:44 10/27/22 13:36 Insulin Lispro 100 Unit/Ml 3 Ml Vial SUBCUT 10/27/22 12:45 10 unit ONCE ONE Administration Morphine Sulfate 4 mg 10/27/22 13:24 10/27/22 13:36 Morphine Sulfate 4 Mg/Ml Cartridge IVPUSH 10/27/22 13:25 4 mg ONCE ONE Administration Protocol Ondansetron HCl 4 mg 10/27/22 14:51 10/27/22 14:59 Ondansetron Hcl 4 Mg/2 Ml Vial IVPUSH 10/27/22 14:52 4 mg ONCE ONE Administration Medical Decision Making Lab Data 10/27/22 11:36 10/27/22 15:15 Labs: Lab Results 10/27/22 10/27/22 10/27/22 Range/Units 11:36 11:36 11:51 WBC 11.2 H (4.8-10.8) X10*3/uL RBC 4.51 L (4.60-5.80) X10*6/uL Hgb 14.7 (14.0-18.0) g/dl Hct 43.4 (42.0-52.0) % MCV 96.2 (80.0-98.0) fL MCH 32.6 (27.0-33.0) pg MCHC 33.9 (31.0-36.0) g/dl RDW 12.6 (11.0-16.0) % Plt Count 190 D (160-400) X10*3/uL MPV 10.3 (9.4-12.4) fL Immature Gran % (Auto) 1.2 H (0.0-0.4) % Neut % (Auto) 79.3 H (45-73) % Lymph % (Auto) 7.0 L (20-40) % Starke % (Auto) 11.2 H (2-11) % Eos % (Auto) 0.4 (0-4) % Baso % (Auto) 0.9 (0-2) % Lymph # (Auto) 0.8 L (1.2-4.9) X10*3/uL Starke # (Auto) 1.3 H (0.1-1.2) X10*3/uL Eos # (Auto) 0.0 (0.0-0.4) X10*3/uL Baso # (Auto) 0.1 (0.0-0.2) X10*3/uL Abs Immat Gran (auto) 0.14 H (0.00-0.03) X10*3/uL Absolute Neuts (auto) 8.9 H (2.0-8.3) x10*3/uL Absolute Nucleated RBC 0.000 (0.0-0.012) X10*3/uL Nucleated RBC % (auto) 0.0 (0.0-0.2) /100WBC Sodium 120 L* (135-145) mmol/L Potassium 6.1 H* D (3.3-5.1) mmol/L Chloride 85 L (96-108) mmol/L Carbon Dioxide 25 (22-29) mmol/L Anion Gap 16 (12-20) BUN 29 H (9-16) mg/dL Creatinine 1.59 H (0.5-1.4) mg/dL Estim Creat Clear Calc 66.1 Estimated GFR 45 Random Glucose 789 H* (60-115) mg/dL Calcium 10.5 H D (8.4-10.2) mg/dL Magnesium 2.6 (1.6-2.6) mg/dL Total Bilirubin 8.5 H (0.0-1.0) mg/dL Direct Bilirubin 5.3 H (0.0-0.5) mg/dL AST 45 H (5-37) U/L ALT 37 (0-40) U/L Alkaline Phosphatase 322 H (39-117) U/L Total Protein 8.8 H (6.5-8.0) g/dL Albumin 3.4 L (3.5-5.0) g/dL Lipase 673 H (8-78) U/L Urine Color Yellow Urine Appearance Clear Urine pH 5.5 (5.0-9.0) Ur Specific [address] 1.020 (1.005-1.025) Urine Protein Negative (Neg-Trace) mg/dL Urine Glucose (UA) >=1000 H (Negative) mg/dL Urine Ketones Negative (Negative) mg/dL Urine Blood Negative (Negative) Urine Nitrite Negative (Negative) Ur Leukocyte Esterase Negative (Negative) Urine RBC 0-2 (0-2) /HPF Urine WBC 0-5 (0-5) /HPF Ur Squamous Epith Cells 0-2 (0-2) /HPF Urine Bacteria None Seen (None Seen) Hyaline Casts 0-2 (0-2) /LPF Urine Opiates Screen (Not Detect) Urine Fentanyl Screen (Not Detect) Ur Barbiturates Screen (Not Detect) Ur Phencyclidine Scrn (Not Detect) Ur Amphetamines Screen (Not Detect) U Benzodiazepines Scrn (Not Detect) Urine Cocaine Screen (Not Detect) U Marijuana (THC) Screen (Not Detect) Ethyl Alcohol < 10 mg/dL 10/27/22 10/27/22 Range/Units 11:51 15:15 WBC (4.8-10.8) X10*3/uL RBC (4.60-5.80) X10*6/uL Hgb (14.0-18.0) g/dl Hct (42.0-52.0) % MCV (80.0-98.0) fL MCH (27.0-33.0) pg MCHC (31.0-36.0) g/dl RDW (11.0-16.0) % Plt Count (160-400) X10*3/uL MPV (9.4-12.4) fL Immature Gran % (Auto) (0.0-0.4) % Neut % (Auto) (45-73) % Lymph % (Auto) (20-40) % Starke % (Auto) (2-11) % Eos % (Auto) (0-4) % Baso % (Auto) (0-2) % Lymph # (Auto) (1.2-4.9) X10*3/uL Starke # (Auto) (0.1-1.2) X10*3/uL Eos # (Auto) (0.0-0.4) X10*3/uL Baso # (Auto) (0.0-0.2) X10*3/uL Abs Immat Gran (auto) (0.00-0.03) X10*3/uL Absolute Neuts (auto) (2.0-8.3) x10*3/uL Absolute Nucleated RBC (0.0-0.012) X10*3/uL Nucleated RBC % (auto) (0.0-0.2) /100WBC Sodium 125 L (135-145) mmol/L Potassium 4.8 D (3.3-5.1) mmol/L Chloride 90 L (96-108) mmol/L Carbon Dioxide 26 (22-29) mmol/L Anion Gap 14 (12-20) BUN 29 H (9-16) mg/dL Creatinine 1.39 (0.5-1.4) mg/dL Estim Creat Clear Calc 75.6 Estimated GFR 53 Random Glucose 596 H* (60-115) mg/dL Calcium 9.9 (8.4-10.2) mg/dL Magnesium (1.6-2.6) mg/dL Total Bilirubin (0.0-1.0) mg/dL Direct Bilirubin (0.0-0.5) mg/dL AST (5-37) U/L ALT (0-40) U/L Alkaline Phosphatase (39-117) U/L Total Protein (6.5-8.0) g/dL Albumin (3.5-5.0) g/dL Lipase (8-78) U/L Urine Color Urine Appearance Urine pH (5.0-9.0) Ur Specific [address] (1.005-1.025) Urine Protein (Neg-Trace) mg/dL Urine Glucose (UA) (Negative) mg/dL Urine Ketones (Negative) mg/dL Urine Blood (Negative) Urine Nitrite (Negative) Ur Leukocyte Esterase (Negative) Urine RBC (0-2) /HPF Urine WBC (0-5) /HPF Ur Squamous Epith Cells (0-2) /HPF Urine Bacteria (None Seen) Hyaline Casts (0-2) /LPF Urine Opiates Screen Not Detected (Not Detect) Urine Fentanyl Screen Not Detected (Not Detect) Ur Barbiturates Screen Not Detected (Not Detect) Ur Phencyclidine Scrn Not Detected (Not Detect) Ur Amphetamines Screen Not Detected (Not Detect) U Benzodiazepines Scrn Not Detected (Not Detect) Urine Cocaine Screen Not Detected (Not Detect) U Marijuana (THC) Screen Not Detected (Not Detect) Ethyl Alcohol mg/dL Discharge Plan Discharge Clinical Impression: Acute pancreatitis, Acute hyperglycemia, Pseudohyponatremia, Vomiting Prescriptions: No Action Creon 24,000-76,000 -120,000 unit capsule,delayed release(DR/EC) 1 cap PO TID Qty: 90 3RF furosemide 40 mg tablet 120 mg PO DAILY 30 Days Qty: 90 2RF spironolactone 100 mg tablet 300 mg PO DAILY 30 Days Qty: 90 2RF Xifaxan 550 mg tablet 550 mg PO BID Qty: 60 6RF omeprazole 40 mg capsule,delayed release(DR/EC) 40 mg PO DAILY paroxetine HCl 20 mg tablet 20 mg PO DAILY meclizine 12.5 mg tablet 12.5 mg PO TID PRN (Reason: Dizziness) hydroxyzine pamoate 25 mg capsule 25 - 50 mg PO DAILY albuterol sulfate [ProAir HFA] 90 mcg/actuation HFA aerosol inhaler 1 - 2 puff inhalation Q4-6H PRN (Reason: Shortness Of Breath) folic acid 1 mg tablet 1 mg PO DAILY bupropion HCl 300 mg tablet extended release 24 hr 300 mg PO DAILY thiamine HCl (vitamin B1) 100 mg tablet 100 mg PO DAILY imipramine HCl 50 mg tablet 50 mg PO BEDTIME Qty: 30 6RF lactulose 10 gram/15 mL solution 30 ml PO TID Boost Plus 0.06 gram- 1.5 kcal/mL liquid 1 ea PO BID 30 Days Qty: 02765 1RF lorazepam 0.5 mg tablet 0.5 mg PO DAILY PRN (Reason: anxiety attack) acamprosate 333 mg tablet,delayed release (DR/EC) 666 mg PO TID Qty: 180 0RF
--- NOTE | 2022-10-27 11:27 | ECG_ITS ---
Test Reason : tachycardia, weakness Blood Pressure : / mmHG Vent. Rate : 111 BPM Atrial Rate : 111 BPM P-R Int : 174 ms QRS Dur : 086 ms QT Int : 352 ms P-R-T Axes : 065 038 056 degrees QTc Int : 478 ms Sinus tachycardia Septal infarct , age undetermined Nonspecific ST elevation Abnormal ECG When compared with ECG of 05-JUL-2022 10:13, Septal infarct is now Present Referred By: Vero Fajardo Electronically Signed By:KEVEN ZAMORANO MD
[2022-10-27 11:39] LABS: MANUAL DIFF FLAG NO
[2022-10-27 11:46] LABS: Basophils Absolute Auto 0.1 X10*3/uL (0.0-0.2); Basophils Percent Auto 0.9 % (0-2); Eosinophils Percent Auto 0.4 % (0-4); Hematocrit 43.4 % (42.0-52.0); Hemoglobin 14.7 g/dl (14.0-18.0); Imm Gran Abs Auto 0.14 X10*3/uL (0.00-0.03); Imm Gran Pct Auto 1.2 % (0.0-0.4); Lymphocytes Absolute Auto 0.8 X10*3/uL (1.2-4.9); Mean Corpuscular HGB Conc 33.9 g/dl (31.0-36.0); Mean Corpuscular Hemoglobin 32.6 pg (27.0-33.0); Mean Corpuscular Volume 96.2 fL (80.0-98.0); Mean Platelet Volume 10.3 fL (9.4-12.4); Monocytes Absolute Auto 1.3 X10*3/uL (0.1-1.2); Monocytes Percent Auto 11.2 % (2-11); Neutrophils Absolute Auto 8.9 x10*3/uL (2.0-8.3); Neutrophils Percent Auto 79.3 % (45-73); Platelet Count 190 X10*3/uL (160-400); Red Blood Count 4.51 X10*6/uL (4.60-5.80); Red Cell Distribution Width 12.6 % (11.0-16.0); White Blood Count 11.2 X10*3/uL (4.8-10.8)
[2022-10-27 11:58] LABS: Appearance Urine Clear; Color Urine Yellow; Glucose Urine UA >=1000 mg/dL (Negative); Leukocyte Esterase Urine Negative (Negative); Nitrite Urine Negative (Negative); PH 5.5 (5.0-9.0); UMIC TRIGGER UACC YES; Urine Blood Negative (Negative); Urine Ketones Negative (Negative); Urine Protein Negative (Neg-Trace)
[2022-10-27 12:07] LABS: Amphetamine Screen Urine Not Detected (Not Detect); Barbiturates, Urine Not Detected (Not Detect); Benzodiazepines Screen Urine Not Detected (Not Detect); Cannabinoid Screen Urine Not Detected (Not Detect); Cocaine Screen Urine Not Detected (Not Detect); Fentanyl, urine Not Detected (Not Detect); Opiate Screen Urine Not Detected (Not Detect); Phencyclidine Screen Urine Not Detected (Not Detect)
[2022-10-27 12:08] LABS: Bacteria Urine None Seen (None Seen); Hyaline Casts Urine 0-2 /LPF (0-2); RBC Urine 0-2 /HPF (0-2); Squamous Epithelial Cell Urine 0-2 /HPF (0-2); WBC Urine 0-5 /HPF (0-5)
[2022-10-27 12:09] LABS: Alanine Aminotransferase 37 U/L (0-40); Albumin Level 3.4 g/dL (3.5-5.0); Alkaline Phosphatase 322 U/L (39-117); Anion Gap 16 (12-20); Aspartate Amino Transferase 45 U/L (5-37); Bilirubin Direct 5.3 mg/dL (0.0-0.5); Bilirubin Total 8.5 mg/dL (0.0-1.0); Blood Urea Nitrogen 29 mg/dL (9-16); Calcium 10.5 mg/dL (8.4-10.2); Carbon Dioxide 25 mmol/L (22-29); Chloride 85 mmol/L (96-108); Creatinine Clr Calc Pharmacy 66.1; Estimated Glomerular Filt Rate 45; Ethanol < 10 mg/dL; Magnesium 2.6 mg/dL (1.6-2.6); Total Protein 8.8 g/dL (6.5-8.0)
[2022-10-27 12:13] LABS: Glucose Random 789 mg/dL (60-115); Potassium 6.1 mmol/L (3.3-5.1); Sodium 120 mmol/L (135-145)
[2022-10-27 12:38] LABS: Lipase 673 U/L (8-78)
--- NOTE | 2022-10-27 12:43 | ED_ITS ---
HPI - General Adult General Chief complaint: Abdominal Pain Stated complaint: dehydration vomiting Time Seen by Provider: 10/27/22 12:42 Source: patient Mode of arrival: ambulatory Limitations: no limitations History of Present Illness HPI narrative: This is a 57 years old patient with the alcoholic liver disease, presented to emergency department complaining nausea vomiting unable to keep anything down. Denies any fever chills. Onset (ago): day(s) (6) Radiation: non-radiation Severity: moderate Quality: burning Pain Consistency: constant Relieving factors: none Exacerbating factors: none Associated symptoms: nausea/vomiting Related Data Home Medications Medication Instructions Recorded Confirmed bupropion HCl 300 mg 24 hr tablet, 300 mg PO DAILY 06/10/21 07/13/22 extended release folic acid 1 mg tablet 1 mg PO DAILY 06/10/21 07/13/22 thiamine HCl (vitamin B1) 100 mg 100 mg PO DAILY 06/10/21 07/13/22 tablet albuterol sulfate 90 mcg/actuation 1 - 2 puff inhalation Q4-6H PRN 01/26/22 07/13/22 aerosol inhaler (ProAir HFA) Shortness Of Breath hydroxyzine pamoate 25 mg capsule 25 - 50 mg PO DAILY 01/26/22 07/13/22 lactulose 10 gram/15 mL oral 30 ml PO TID 03/08/22 07/13/22 solution lorazepam 0.5 mg tablet 0.5 mg PO DAILY PRN anxiety attack 07/13/22 07/13/22 meclizine 12.5 mg tablet 12.5 mg PO TID PRN Dizziness 07/13/22 07/13/22 omeprazole 40 mg capsule,delayed 40 mg PO DAILY 07/13/22 07/13/22 release paroxetine HCl 20 mg tablet 20 mg PO DAILY 07/13/22 07/13/22 Previous Rx's Medication Instructions Recorded imipramine HCl 50 mg tablet 50 mg PO BEDTIME #30 tabs 09/16/21 [id number] 1 cap PO TID #90 caps 02/28/22 24,000-76,000-120,000 unit capsule,delayed rel (Creon) furosemide 40 mg tablet 120 mg PO DAILY 30 days #90 tabs 07/24/22 spironolactone 100 mg tablet 300 mg PO DAILY 30 days #90 tabs 07/24/22 food supplemt, lactose-reduced 1 ea PO BID 30 days #14,220 mL 08/01/22 0.06 gram-1.5 kcal/mL oral liquid (Boost Plus) rifaximin 550 mg tablet (Xifaxan) 550 mg PO BID #60 tabs 08/31/22 acamprosate 333 mg tablet,delayed 666 mg PO TID #180 tabs 09/05/22 release Allergies Allergy/AdvReac Type Severity Reaction Status Date / Time No Known Drug Allergies Allergy Mild NONE Verified 10/27/22 11:27 [NO KNOWN DRUG ALLERGIES] Review of Systems Constitutional: Constitutional: Reports no additional constitutional complaints ENT: Reports system reviewed and no additional complaints, except as documented Cardiovascular: Cardiovascular: Reports no additional cardiovascular complaints Respiratory: Respiratory: Reports no additional respiratory complaints Gastrointestinal: Gastrointestinal: Reports no additional gastrointestinal complaints [facility] Past Medical History Attestation statement: The following information was validated with the patient. Medical History Alcoholism Chronic abdominal pain Cirrhosis Dyspnea Elevated LFTs GERD (gastroesophageal reflux disease) Gout Hydropneumothorax Pericardial effusion Pleural effusion Pleural effusion on right Recurrent left pleural effusion Tachycardia Surgical History (Updated 10/23/22 @ 11:40 by Galilea Cerda RN) H/O cervical spine surgery H/O colonoscopy H/O hemicolectomy History of thoracentesis Hx of esophagogastroduodenoscopy Family History Family History Mother Cancer Sister Cancer Social History Social History Household Members: Other Household Members Other:: roommate Housing: Apartment Do you presently have visiting nurse or other home services: No Alcohol intake: former Patient Tobacco Use Status: Former Tobacco user Quit Date: 1 mth ago Tobacco use type: Cigarette Cigarettes Per Day: 3 Years Smoked: 30 Smoked in Last 30 Days: No Second Hand Smoke Exposure: No Use of substances other than those prescribed or required for medical reasons: Yes Substance Use Type: Marijuana Advance Directives: No Advance Directives Information Provided: Yes service: No Current occupational status: unemployed Physical Exam ED Vital Signs: Vital Signs - 24 hr 10/27/22 11:22 10/27/22 13:42 10/27/22 14:31 Temperature 98.8 F Pulse Rate 112 H 111 H 110 H Respiratory Rate 20 15 16 Blood Pressure 159/87 H 167/107 H 169/105 H Pulse Oximetry 95 97 97 Oxygen Delivery Method Room Air Room Air Room Air 10/27/22 15:00 Temperature Pulse Rate 111 H Respiratory Rate 16 Blood Pressure 163/101 H Pulse Oximetry 96 Oxygen Delivery Method Room Air BMI result Body Mass Index 27.6 Const General: cooperative Nutritional Appearance: well nourished Orientation/consciousness: patient oriented x3 Limitations: no limitations HENMT Head: Yes normal to inspection General nose exam: Normal external nose present Face and sinus: Yes normal facial exam Mouth: Normal oral and palatal mucosa present Neck Neck: Yes normal visual inspection and Yes full ROM Chest Chest palpation & inspection: normal inspection of the chest Resp Effort & Inspection: normal respiratory effort Auscultation: clear to auscultation bilaterally Cardio Jugular venous distension: no JVD Rate: regular rate Rhythm: regular rhythm GI Inspection: Yes normal to inspection Palpation (GI): Soft to palpation, not firm, nontender and no guarding Skin General skin exam: no rashes or lesions noted, elasticity normal and turgor normal Neuro General: patient oriented x3 Extrem General: Yes normal to inspection and Yes full ROM Course Reevaluation(s) Reevaluation #1: Doing better blood sugar coming down ;sodium coming up ;potassium coming down Time: 16:38 Medications Administered Discontinued Medications Generic Name Dose Route Start Last Admin Trade Name Freq PRN Reason Stop Dose Admin Hydromorphone HCl 0.5 mg 10/27/22 14:32 10/27/22 14:59 Hydromorphone Hcl 0.5 Mg/0.5 Ml Syringe IVPUSH 10/27/22 14:33 0.5 mg ONCE ONE Administration Protocol Sodium Chloride 1,000 mls @ 999 mls/hr 10/27/22 12:45 10/27/22 14:53 Ns IVCONT 10/27/22 13:45 Infused .Q1H1M RYAN Infusion Sodium Chloride 1,000 mls @ 999 mls/hr 10/27/22 14:30 10/27/22 15:26 Ns IVCONT 10/27/22 15:30 Infused .Q1H1M RYNA Infusion Insulin Human Lispro 10 unit 10/27/22 12:44 10/27/22 13:36 Insulin Lispro 100 Unit/Ml 3 Ml Vial SUBCUT 10/27/22 12:45 10 unit ONCE ONE Administration Morphine Sulfate 4 mg 10/27/22 13:24 10/27/22 13:36 Morphine Sulfate 4 Mg/Ml Cartridge IVPUSH 10/27/22 13:25 4 mg ONCE ONE Administration Protocol Ondansetron HCl 4 mg 10/27/22 14:51 10/27/22 14:59 Ondansetron Hcl 4 Mg/2 Ml Vial IVPUSH 10/27/22 14:52 4 mg ONCE ONE Administration Medical Decision Making Medical Decision Making [facility] Narrative: Patient presented with nausea vomiting hyperglycemia and pseudohyponatremia will administer insulin and fluids and reassess Differential Diagnosis Differential Diagnoses: The differential diagnosis associated with the presentation includes Hyponatremia/ pseudohyponatremia/DKA Admission/Observation Consideration of admission/observation: Escalation of care including admission/observation considered Consult Healthcare Provider Management of the patient was discussed with: Hospitalist Lab Data [facility] Lab Attestation statement: I reviewed the patient's lab results. Patient has pseudohyponatremia, bicarb normal anion gap normal 10/27/22 11:36 10/27/22 11:36 Labs: Lab Results 10/27/22 10/27/22 10/27/22 Range/Units 11:36 11:36 11:51 WBC 11.2 H (4.8-10.8) X10*3/uL RBC 4.51 L (4.60-5.80) X10*6/uL Hgb 14.7 (14.0-18.0) g/dl Hct 43.4 (42.0-52.0) % MCV 96.2 (80.0-98.0) fL MCH 32.6 (27.0-33.0) pg MCHC 33.9 (31.0-36.0) g/dl RDW 12.6 (11.0-16.0) % Plt Count 190 D (160-400) X10*3/uL MPV 10.3 (9.4-12.4) fL Immature Gran % (Auto) 1.2 H (0.0-0.4) % Neut % (Auto) 79.3 H (45-73) % Lymph % (Auto) 7.0 L (20-40) % [place] % (Auto) 11.2 H (2-11) % Eos % (Auto) 0.4 (0-4) % Baso % (Auto) 0.9 (0-2) % Lymph # (Auto) 0.8 L (1.2-4.9) X10*3/uL [place] # (Auto) 1.3 H (0.1-1.2) X10*3/uL Eos # (Auto) 0.0 (0.0-0.4) X10*3/uL Baso # (Auto) 0.1 (0.0-0.2) X10*3/uL Abs Immat Gran (auto) 0.14 H (0.00-0.03) X10*3/uL Absolute Neuts (auto) 8.9 H (2.0-8.3) x10*3/uL Absolute Nucleated RBC 0.000 (0.0-0.012) X10*3/uL Nucleated RBC % (auto) 0.0 (0.0-0.2) /100WBC Sodium 120 L* (135-145) mmol/L Potassium 6.1 H* D (3.3-5.1) mmol/L Chloride 85 L (96-108) mmol/L Carbon Dioxide 25 (22-29) mmol/L Anion Gap 16 (12-20) BUN 29 H (9-16) mg/dL Creatinine 1.59 H (0.5-1.4) mg/dL Estim Creat Clear Calc 66.1 Estimated GFR 45 Random Glucose 789 H* (60-115) mg/dL Calcium 10.5 H D (8.4-10.2) mg/dL Magnesium 2.6 (1.6-2.6) mg/dL Total Bilirubin 8.5 H (0.0-1.0) mg/dL Direct Bilirubin 5.3 H (0.0-0.5) mg/dL AST 45 H (5-37) U/L ALT 37 (0-40) U/L Alkaline Phosphatase 322 H (39-117) U/L Total Protein 8.8 H (6.5-8.0) g/dL Albumin 3.4 L (3.5-5.0) g/dL Triglycerides mg/dL Lipase 673 H (8-78) U/L Urine Color Yellow Urine Appearance Clear Urine pH 5.5 (5.0-9.0) Ur Specific [place] 1.020 (1.005-1.025) Urine Protein Negative (Neg-Trace) mg/dL Urine Glucose (UA) >=1000 H (Negative) mg/dL Urine Ketones Negative (Negative) mg/dL Urine Blood Negative (Negative) Urine Nitrite Negative (Negative) Ur Leukocyte Esterase Negative (Negative) Urine RBC 0-2 (0-2) /HPF Urine WBC 0-5 (0-5) /HPF Ur Squamous Epith Cells 0-2 (0-2) /HPF Urine Bacteria None Seen (None Seen) Hyaline Casts 0-2 (0-2) /LPF Urine Opiates Screen (Not Detect) Urine Fentanyl Screen (Not Detect) Ur Barbiturates Screen (Not Detect) Ur Phencyclidine Scrn (Not Detect) Ur Amphetamines Screen (Not Detect) U Benzodiazepines Scrn (Not Detect) Urine Cocaine Screen (Not Detect) U Marijuana (THC) Screen (Not Detect) Ethyl Alcohol < 10 mg/dL 10/27/22 10/27/22 Range/Units 11:51 15:15 WBC (4.8-10.8) X10*3/uL RBC (4.60-5.80) X10*6/uL Hgb (14.0-18.0) g/dl Hct (42.0-52.0) % MCV (80.0-98.0) fL MCH (27.0-33.0) pg MCHC (31.0-36.0) g/dl RDW (11.0-16.0) % Plt Count (160-400) X10*3/uL MPV (9.4-12.4) fL Immature Gran % (Auto) (0.0-0.4) % Neut % (Auto) (45-73) % Lymph % (Auto) (20-40) % [place] % (Auto) (2-11) % Eos % (Auto) (0-4) % Baso % (Auto) (0-2) % Lymph # (Auto) (1.2-4.9) X10*3/uL [place] # (Auto) (0.1-1.2) X10*3/uL Eos # (Auto) (0.0-0.4) X10*3/uL Baso # (Auto) (0.0-0.2) X10*3/uL Abs Immat Gran (auto) (0.00-0.03) X10*3/uL Absolute Neuts (auto) (2.0-8.3) x10*3/uL Absolute Nucleated RBC (0.0-0.012) X10*3/uL Nucleated RBC % (auto) (0.0-0.2) /100WBC Sodium 125 L (135-145) mmol/L Potassium 4.8 D (3.3-5.1) mmol/L Chloride 90 L (96-108) mmol/L Carbon Dioxide 26 (22-29) mmol/L Anion Gap 14 (12-20) BUN 29 H (9-16) mg/dL Creatinine 1.39 (0.5-1.4) mg/dL Estim Creat Clear Calc 75.6 Estimated GFR 53 Random Glucose 596 H* (60-115) mg/dL Calcium 9.9 (8.4-10.2) mg/dL Magnesium (1.6-2.6) mg/dL Total Bilirubin (0.0-1.0) mg/dL Direct Bilirubin (0.0-0.5) mg/dL AST (5-37) U/L ALT (0-40) U/L Alkaline Phosphatase (39-117) U/L Total Protein (6.5-8.0) g/dL Albumin (3.5-5.0) g/dL Triglycerides 211 mg/dL Lipase (8-78) U/L Urine Color Urine Appearance Urine pH (5.0-9.0) Ur Specific [place] (1.005-1.025) Urine Protein (Neg-Trace) mg/dL Urine Glucose (UA) (Negative) mg/dL Urine Ketones (Negative) mg/dL Urine Blood (Negative) Urine Nitrite (Negative) Ur Leukocyte Esterase (Negative) Urine RBC (0-2) /HPF Urine WBC (0-5) /HPF Ur Squamous Epith Cells (0-2) /HPF Urine Bacteria (None Seen) Hyaline Casts (0-2) /LPF Urine Opiates Screen Not Detected (Not Detect) Urine Fentanyl Screen Not Detected (Not Detect) Ur Barbiturates Screen Not Detected (Not Detect) Ur Phencyclidine Scrn Not Detected (Not Detect) Ur Amphetamines Screen Not Detected (Not Detect) U Benzodiazepines Scrn Not Detected (Not Detect) Urine Cocaine Screen Not Detected (Not Detect) U Marijuana (THC) Screen Not Detected (Not Detect) Ethyl Alcohol mg/dL Independent Interpretation I performed an independent interpretation of an: Ultrasound Interpretation: COMMON BILE DUCT: Normal in caliber measuring 0.6 cm in diameter. RIGHT KIDNEY: 11.6 cm. An interpolar echogenic focus measures a 0.5 cm. An adjacent anechoic cyst measures 1.9 cm. Color Doppler showed no abnormal vascular flow. US/US abdomen limited IMPRESSION: ? 1. Hepatic cirrhosis without focal abnormality. 2. Mild perihepatic fluid superiorly. 3. Mild heterogeneity in the pancreas without pancreatic ductal dilatation. ? Please refer to the report from the CT scan of the abdomen and pelvis from today for more detailed findings. Dictated By: Randolph Garrison MD Signed By: <Electronically signed by Randolph Garrison MD in OV> 10/27/22 1505 Critical Care Time Critical Care Time Critical Care Time: Yes Total Critical Care Time: 60 Attestation: Hyperglycemia/hyperkalemia/hyponatremia Discharge Plan Discharge Clinical Impression: Acute pancreatitis, Acute hyperglycemia, Pseudohyponatremia, Vomiting Prescriptions: No Action Creon 24,000-76,000 -120,000 unit capsule,delayed release(DR/EC) 1 cap PO TID Qty: 90 3RF furosemide 40 mg tablet 120 mg PO DAILY 30 Days Qty: 90 2RF spironolactone 100 mg tablet 300 mg PO DAILY 30 Days Qty: 90 2RF Xifaxan 550 mg tablet 550 mg PO BID Qty: 60 6RF omeprazole 40 mg capsule,delayed release(DR/EC) 40 mg PO DAILY paroxetine HCl 20 mg tablet 20 mg PO DAILY meclizine 12.5 mg tablet 12.5 mg PO TID PRN (Reason: Dizziness) hydroxyzine pamoate 25 mg capsule 25 - 50 mg PO DAILY albuterol sulfate [ProAir HFA] 90 mcg/actuation HFA aerosol inhaler 1 - 2 puff inhalation Q4-6H PRN (Reason: Shortness Of Breath) folic acid 1 mg tablet 1 mg PO DAILY bupropion HCl 300 mg tablet extended release 24 hr 300 mg PO DAILY thiamine HCl (vitamin B1) 100 mg tablet 100 mg PO DAILY imipramine HCl 50 mg tablet 50 mg PO BEDTIME Qty: 30 6RF lactulose 10 gram/15 mL solution 30 ml PO TID Boost Plus 0.06 gram- 1.5 kcal/mL liquid 1 ea PO BID 30 Days Qty: 51069 1RF lorazepam 0.5 mg tablet 0.5 mg PO DAILY PRN (Reason: anxiety attack) acamprosate 333 mg tablet,delayed release (DR/EC) 666 mg PO TID Qty: 180 0RF
[2022-10-27] MEDS: Insulin Lispro 100 UNIT/ML 3 ML VIAL 10 UNIT SUBCUT ×2 (13:36→17:22)
[2022-10-27] MEDS: Morphine Sulfate 4 MG/ML CARTRIDGE IVPUSH ×2 (13:36→20:24)
[2022-10-27] MEDS: 0.9 % Sodium Chloride 1,000 ML 999 ML IVCONT ×2 (13:36→14:32)
[2022-10-27] MEDS: ondansetron HCL 4 MG/2 ML VIAL IVPUSH ×2 (14:59→20:24)
[2022-10-27] MEDS: HYDROmorphone HCl 0.5 MG/0.5 ML SYRINGE IVPUSH (14:59)
[2022-10-27 15:55] LABS: Anion Gap 14 (12-20); Blood Urea Nitrogen 29 mg/dL (9-16); Calcium 9.9 mg/dL (8.4-10.2); Carbon Dioxide 26 mmol/L (22-29); Chloride 90 mmol/L (96-108); Creatinine Clr Calc Pharmacy 75.6; Estimated Glomerular Filt Rate 53; Glucose Random 596 mg/dL (60-115); Potassium 4.8 mmol/L (3.3-5.1); Sodium 125 mmol/L (135-145)
[2022-10-27 16:32] LABS: Triglycerides 211 mg/dL
--- NOTE | 2022-10-27 16:35 | PM.IMHP ---
History of Present Illness Date of Service: 10/27/22 Chief Complaint: Abdominal pain, nausea and vomiting ?a 56 years old male with alcoholic liver cirrhosis, COPD, GERD and recurrent pleural?effusions who presents to the hospital complaining of abd pain, Nausea and vomiting for 5 days [place]. The patient report that for the last 5 days he started to have abdominal pain after having and EGD done for varices banding. could not keep anything down. had alcohol 6 days ago. pain is mainly epigastric and RUQ with no radiation to back, associated with decrease PO intake and recurrent episodes of vomiting. no bowel motion in 3 days. no fever, chills, chest pain, palpitations, urinary problem or diarrhea. In ED found to have elevated sugar of 900s with no anion gap. he reports no previous history of diabetes. improved with IV fluids and insulin. Lab showed elevated Lipase level, hyponatremia and hyperkalemia. Admitted for further eval and treatment. Review of Systems Review of Systems: No fever, chills but has weakness No chest pain, palpitation No shortness of breath or coughing reporting abdominal pain, with nausea and vomiting No urinary symptoms No any rash or wounds PMFSH Medical History Alcoholism Chronic abdominal pain Cirrhosis Dyspnea Elevated LFTs GERD (gastroesophageal reflux disease) Gout Hydropneumothorax Pericardial effusion Pleural effusion Pleural effusion on right Recurrent left pleural effusion Tachycardia Family History Mother Cancer Sister Cancer Surgical History H/O cervical spine surgery H/O colonoscopy H/O hemicolectomy History of thoracentesis Hx of esophagogastroduodenoscopy Social History Household Members: Other Household Members Other:: roommate Housing: Apartment Do you presently have visiting nurse or other home services: No Alcohol intake: former Patient Tobacco Use Status: Former Tobacco user Quit Date: 1 mth ago Tobacco use type: Cigarette Cigarettes Per Day: 3 Years Smoked: 30 Smoked in Last 30 Days: No Second Hand Smoke Exposure: No Use of substances other than those prescribed or required for medical reasons: Yes Substance Use Type: Marijuana Advance Directives: No Advance Directives Information Provided: Yes service: No Current occupational status: unemployed Meds Allergies Allergy/AdvReac Type Severity Reaction Status Date / Time No Known Drug Allergies Allergy Mild NONE Verified 10/27/22 11:27 [NO KNOWN DRUG ALLERGIES] Active Medications: Current Medications Sodium Chloride (Ns) 1,000 mls @ 999 mls/hr IV .Q1H1M RYAN Stop: 10/27/22 17:30 Insulin Human Lispro (Insulin Lispro 100 Unit/Ml 3 Ml Vial) 10 unit SUBCUT ONCE ONE; Protocol Stop: 10/27/22 16:30 Insulin Human Lispro (Insulin Lispro 100 Unit/Ml 3 Ml Vial) 0 unit SUBCUT QIDACHS RYAN; Protocol Pharmacy Consult (Consult Rx Perform Med Rec) 1 each MISCELLANE ONCE PRN PRN Reason: Consult order Home Medications Medication Instructions Recorded Confirmed Last Taken Type bupropion HCl 300 mg 24 hr tablet, 300 mg PO DAILY 06/10/21 07/13/22 12/05/21 History extended release folic acid 1 mg tablet 1 mg PO DAILY 06/10/21 07/13/22 12/05/21 History thiamine HCl (vitamin B1) 100 mg 100 mg PO DAILY 06/10/21 07/13/22 12/05/21 History tablet albuterol sulfate 90 mcg/actuation 1 - 2 puff inhalation Q4-6H PRN 01/26/22 07/13/22 Unknown History aerosol inhaler (ProAir HFA) Shortness Of Breath hydroxyzine pamoate 25 mg capsule 25 - 50 mg PO DAILY 01/26/22 07/13/22 Unknown History lactulose 10 gram/15 mL oral 30 ml PO TID 03/08/22 07/13/22 Unknown History solution lorazepam 0.5 mg tablet 0.5 mg PO DAILY PRN anxiety attack 07/13/22 07/13/22 Unknown History meclizine 12.5 mg tablet 12.5 mg PO TID PRN Dizziness 07/13/22 07/13/22 Unknown History omeprazole 40 mg capsule,delayed 40 mg PO DAILY 07/13/22 07/13/22 Unknown History release paroxetine HCl 20 mg tablet 20 mg PO DAILY 07/13/22 07/13/22 Unknown History Physical Exam Vital Signs and Narrative: Vital Signs: Last Vital Signs Temp 98.8 F 10/27/22 11:22 Pulse 111 H 10/27/22 15:00 Resp 16 10/27/22 15:00 BP 163/101 H 10/27/22 15:00 Pulse Ox 96 10/27/22 15:00 O2 Del Method Room Air 10/27/22 15:00 BMI result Body Mass Index 27.6 Const: Other: Constitutional : Awake, interactive, not in distress Neck : Normal inspection, Supple Cardiovascular : RRR, no JVP, no lower extremity edema Respiratory : good bilateral air entry, no crackles, wheezes or rhonchi Gastrointestinal: soft, lax, Normal bowel sounds, Non tender, no significant ascites, epigastric and RUQ mild tenderness with no surgical signs Skin : Warm, Dry Neurological : Alert & oriented x3, No focal deficit Results Labs 10/27/22 11:36 10/27/22 15:15 Labs: Laboratory Results - last 24 hr 10/27/22 10/27/22 10/27/22 11:36 11:36 11:51 MCV 96.2 MCH 32.6 MCHC 33.9 RDW 12.6 Plt Count 190 D MPV 10.3 Immature Gran % (Auto) 1.2 H Neut % (Auto) 79.3 H Lymph % (Auto) 7.0 L [place] % (Auto) 11.2 H Eos % (Auto) 0.4 Baso % (Auto) 0.9 Lymph # (Auto) 0.8 L [place] # (Auto) 1.3 H Eos # (Auto) 0.0 Baso # (Auto) 0.1 Abs Immat Gran (auto) 0.14 H Absolute Neuts (auto) 8.9 H Absolute Nucleated RBC 0.000 Nucleated RBC % (auto) 0.0 Anion Gap 16 Estim Creat Clear Calc 66.1 Estimated GFR 45 Random Glucose 789 H* Calcium 10.5 H D Magnesium 2.6 Total Bilirubin 8.5 H Direct Bilirubin 5.3 H AST 45 H ALT 37 Alkaline Phosphatase 322 H Total Protein 8.8 H Albumin 3.4 L Triglycerides Lipase 673 H Urine Color Yellow Urine Appearance Clear Urine pH 5.5 Ur Specific [place] 1.020 Urine Protein Negative Urine Glucose (UA) >=1000 H Urine Ketones Negative Urine Blood Negative Urine Nitrite Negative Ur Leukocyte Esterase Negative Urine RBC 0-2 Urine WBC 0-5 Ur Squamous Epith Cells 0-2 Urine Bacteria None Seen Hyaline Casts 0-2 Urine Opiates Screen Urine Fentanyl Screen Ur Barbiturates Screen Ur Phencyclidine Scrn Ur Amphetamines Screen U Benzodiazepines Scrn Urine Cocaine Screen U Marijuana (THC) Screen Ethyl Alcohol < 10 10/27/22 10/27/22 11:51 15:15 MCV MCH MCHC RDW Plt Count MPV Immature Gran % (Auto) Neut % (Auto) Lymph % (Auto) [place] % (Auto) Eos % (Auto) Baso % (Auto) Lymph # (Auto) [place] # (Auto) Eos # (Auto) Baso # (Auto) Abs Immat Gran (auto) Absolute Neuts (auto) Absolute Nucleated RBC Nucleated RBC % (auto) Anion Gap 14 Estim Creat Clear Calc 75.6 Estimated GFR 53 Random Glucose 596 H* Calcium 9.9 Magnesium Total Bilirubin Direct Bilirubin AST ALT Alkaline Phosphatase Total Protein Albumin Triglycerides 211 Lipase Urine Color Urine Appearance Urine pH Ur Specific [place] Urine Protein Urine Glucose (UA) Urine Ketones Urine Blood Urine Nitrite Ur Leukocyte Esterase Urine RBC Urine WBC Ur Squamous Epith Cells Urine Bacteria Hyaline Casts Urine Opiates Screen Not Detected Urine Fentanyl Screen Not Detected Ur Barbiturates Screen Not Detected Ur Phencyclidine Scrn Not Detected Ur Amphetamines Screen Not Detected U Benzodiazepines Scrn Not Detected Urine Cocaine Screen Not Detected U Marijuana (THC) Screen Not Detected Ethyl Alcohol Imaging Radiologist's Impressions: Impressions Abdomen Ultrasound 10/27/22 12:15 IMPRESSION: 1. Hepatic cirrhosis without focal abnormality. 2. Mild perihepatic fluid superiorly. 3. Mild heterogeneity in the pancreas without pancreatic ductal dilatation. Please refer to the report from the CT scan of the abdomen and pelvis from today for more detailed findings. Assessment and Plan (1) Acute pancreatitis: Status: Acute (2) Acute hyperglycemia: Status: Acute (3) Pseudohyponatremia: Status: Acute (4) Vomiting: Status: Acute (5) Alcohol use disorder, moderate, dependence: Status: Acute Plan ?a 56 years old male with alcoholic liver cirrhosis, COPD, GERD and recurrent pleural?effusions who presents to the hospital complaining of abd pain, Nausea and vomiting for 5 days [place]. Severe hyperglycemia 2/2 new diabetes type 2 check HbA1c Improved with IVF and insulin Give bolus of Fluids then continous start SSI POC Hyperkalemia 2/2 Acute kidney injury CR of 1.6 on admission from 0.8 K improved with IVF monitor I\O, BMP Pseudohyponatremia 2/2 elevated glucose follow BMP after correction Glu acute pancreatitis Pending CT scan reading elevated Lipase IVF pain meds Advance diet as tolerated Alcohol use disorder reports last drink 6 days ago CIWA Continue home meds DVT PPx Lovenox The patient will need 2 overnight hospital stay for treatment of TORSTEN, pancreatitis and elevated sugar, can not be done in any less acute care. Time Spent With Patient Time: Total time managing care of this patient today ____ minutes. Quality Stroke Does the patient have a stroke diagnosis?: No VTE Prior VTE?: No VTE Risk Level:: Medical - moderate - high VTE Device Contraindication: Treatment Not Indicated VTE Drug Contraindication: N/A - Med Ordered
[2022-10-27 17:19] LABS: Glucose, Whole Blood 537 mg/dL (60-115)
[2022-10-27] MEDS: 0.9 % Sodium Chloride 1,000 ML 999 ML IV (17:23)
[2022-10-27] MEDS: 0.9 % Sodium Chloride 1,000 ML 200 ML IVCONT ×2 (17:23→22:25)
[2022-10-27] MEDS: Insulin Glargine,Hum.rec.anlog 100 UNIT/ML 10 ML VIAL 10 UNIT SUBCUT (17:23)
[2022-10-27 17:27] LABS: Estimated Average Glucose 220 mg/dL; Hemoglobin A1c % 9.3 %
--- NOTE | 2022-10-27 18:05 | PHA.MEDREC ---
Pharmacy Consult ? Medication Reconciliation Pharmacy has completed the medication reconciliation.Pt read list off his phone.
[2022-10-27 18:53] LABS: Glucose, Whole Blood 419 mg/dL (60-115)
[2022-10-27] MEDS: Enoxaparin Sodium 40 MG/0.4 ML SYRINGE SUBCUT (19:15)
[2022-10-27] MEDS: Insulin Lispro 100 UNIT/ML 3 ML VIAL SUBCUT ×2 (19:15→22:26)
--- NOTE | 2022-10-27 19:17 | PC.NURSE ---
Nurse to nurse report given to SHANTI Edward RN.
[2022-10-27] MEDS: 0.9 % Sodium Chloride Flush 3 ML SYRINGE IVFLUSH (20:17)
[2022-10-27] MEDS: LORazepam 0.5 MG TABLET PO (20:24)
[2022-10-27 20:37] LABS: Glucose, Whole Blood 323 mg/dL (60-115)
[2022-10-27 20:54] LABS: Anion Gap 18 (12-20); Blood Urea Nitrogen 26 mg/dL (9-16); Calcium 9.1 mg/dL (8.4-10.2); Carbon Dioxide 20 mmol/L (22-29); Chloride 94 mmol/L (96-108); Creatinine Clr Calc Pharmacy 109.6; Estimated Glomerular Filt Rate > 60; Glucose Random 338 mg/dL (60-115); Potassium 4.9 mmol/L (3.3-5.1); Sodium 127 mmol/L (135-145)
[2022-10-28] MEDS: 0.9 % Sodium Chloride 1,000 ML 200 ML IVCONT ×4 (03:11→22:31)
[2022-10-28 03:24] VITALS: BP 153/100; PULSE 106; RESP 20; TEMP 36.9; O2SAT 95
--- NOTE | 2022-10-28 05:42 | PC.NURSE ---
POC is ACHS verified with MD Chahal.
[2022-10-28 06:31] LABS: Hematocrit 41.5 % (42.0-52.0); Hemoglobin 13.9 g/dl (14.0-18.0); Mean Corpuscular HGB Conc 33.5 g/dl (31.0-36.0); Mean Corpuscular Hemoglobin 32.8 pg (27.0-33.0); Mean Corpuscular Volume 97.9 fL (80.0-98.0); Mean Platelet Volume 9.9 fL (9.4-12.4); Platelet Count 148 X10*3/uL (160-400); Red Blood Count 4.24 X10*6/uL (4.60-5.80); Red Cell Distribution Width 12.9 % (11.0-16.0)
[2022-10-28 06:47] LABS: Glucose, Whole Blood 220 mg/dL (60-115)
[2022-10-28 06:50] LABS: Alanine Aminotransferase 33 U/L (0-40); Alkaline Phosphatase 277 U/L (39-117); Anion Gap 14 (12-20); Aspartate Amino Transferase 49 U/L (5-37); Bilirubin Total 7.6 mg/dL (0.0-1.0); Blood Urea Nitrogen 22 mg/dL (9-16); Carbon Dioxide 25 mmol/L (22-29); Chloride 96 mmol/L (96-108); Creatinine Clr Calc Pharmacy 126.5; Estimated Glomerular Filt Rate > 60; Glucose Random 206 mg/dL (60-115); Potassium 4.7 mmol/L (3.3-5.1); Sodium 130 mmol/L (135-145); Total Protein 7.8 g/dL (6.5-8.0)
[2022-10-28 07:51] VITALS: BP 164/94; PULSE 105; RESP 20; TEMP 36.6; O2SAT 97
[2022-10-28] MEDS: Insulin Glargine,Hum.rec.anlog 100 UNIT/ML 10 ML VIAL 10 UNIT SUBCUT (08:07)
[2022-10-28] MEDS: Acetaminophen 325 MG TABLET 650 MG PO (08:07)
[2022-10-28] MEDS: Insulin Lispro 100 UNIT/ML 3 ML VIAL SUBCUT ×4 (08:07→22:31)
[2022-10-28] MEDS: Morphine Sulfate 4 MG/ML CARTRIDGE IVPUSH ×4 (09:41→22:32)
[2022-10-28] MEDS: ondansetron HCL 4 MG/2 ML VIAL IVPUSH ×2 (09:41→18:23)
--- NOTE | 2022-10-28 10:53 | P.PNIM_ITS ---
Subjective Subjective Date of Service: 10/28/22 Interval History: Seen and evaluated reports nausea and vomiting no significant improvement since admission unable to tolerate diet yet blood sugar better controlled no other overnight events Review of Systems No fever, chills but has weakness No chest pain, palpitation No shortness of breath or coughing reporting abdominal pain, with nausea and vomiting No urinary symptoms No any rash or wounds Physical Exam Vital Signs: Vital Signs: Last Vital Signs Temp 97.8 F 10/28/22 07:51 Pulse 105 H 10/28/22 07:51 Resp 20 10/28/22 07:51 BP 164/94 H 10/28/22 07:51 Pulse Ox 97 10/28/22 07:51 O2 Del Method Room Air 10/28/22 07:51 BMI result Body Mass Index 28.8 Const: Other: Constitutional : Awake, interactive, not in distress Neck : Normal inspection, Supple Cardiovascular : RRR, no JVP, no lower extremity edema Respiratory : good bilateral air entry, no crackles, wheezes or rhonchi Gastrointestinal: soft, lax, Normal bowel sounds, Non tender, no significant ascites, epigastric and RUQ mild tenderness with no surgical signs Skin : Warm, Dry Neurological : Alert & oriented x3, No focal deficit Objective Data Active Medications Acetaminophen (Acetaminophen 325 Mg Tablet) 650 mg PO Q6H PRN PRN Reason: Pain, Mild (Pain Scale 1-3) Last Admin: 10/28/22 08:07 Dose: 650 mg Documented By: ANDREE Albuterol Sulfate (Albuterol Sulfate 90 Mcg 8 Gm Inhaler) 2 puff INHALE Q4H PRN PRN Reason: Shortness Of Breath Lipase/Protease/Amylase (Lipase/Prot/Amylase 24/76/120k 1 Cap Capsule.Dr) 1 cap PO TID [facility] Bupropion HCl (Bupropion Hcl Xl 300 Mg Tab.Er.24h) 300 mg PO DAILY [facility] Enoxaparin Sodium (Enoxaparin Sodium 40 Mg/0.4 Ml Syringe) 40 mg SUBCUT Q24H [facility] Last Admin: 10/27/22 19:15 Dose: 40 mg Documented By: ILA Folic Acid (Folic Acid 1 Mg Tablet) 1 mg PO DAILY [facility] Hydroxyzine HCl (Hydroxyzine Hcl 25 Mg Tablet) 25 mg PO DAILY [facility] Sodium Chloride (Ns) 1,000 mls @ 200 mls/hr IVCONT .Q5H [facility] Last Admin: 10/28/22 09:41 Dose: 200 mls/hr Documented By: ANDREE Imipramine HCl (Imipramine Hcl 50 Mg Tablet) 50 mg PO BEDTIME [facility] Insulin Glargine (Insulin Glargine,Hum.Rec.Anlog 100 Unit/Ml 10 Ml Vial) 10 unit SUBCUT DAILY [facility] Last Admin: 10/28/22 08:07 Dose: 10 unit Documented By: ANDREE Insulin Human Lispro (Insulin Lispro 100 Unit/Ml 3 Ml Vial) 0 unit SUBCUT QIDACHS [facility]; Protocol Last Admin: 10/28/22 08:07 Dose: 4 unit Documented By: ANDREE Lactulose (Lactulose 20 Gm/30 Ml Solution) 20 gm PO TID PRN PRN Reason: Constipation Lorazepam (Lorazepam 0.5 Mg Tablet) 0.5 mg PO Q8H PRN PRN Reason: Anxiety Last Admin: 10/27/22 20:24 Dose: 0.5 mg Documented By: JESSICA Lorazepam (Lorazepam 0.5 Mg Tablet) 0.5 mg PO DAILY PRN PRN Reason: anxiety attack Morphine Sulfate (Morphine Sulfate 4 Mg/Ml Cartridge) 4 mg IVPUSH Q4H PRN; Protocol PRN Reason: Pain, Severe (Pain Scale 7-10) Last Admin: 10/28/22 09:41 Dose: 4 mg Documented By: ANDREE Omeprazole (Omeprazole 40 Mg Capsule.Dr) 40 mg PO DAILY@0630 [facility] Ondansetron HCl (Ondansetron Hcl 4 Mg/2 Ml Vial) 4 mg IVPUSH Q8H PRN PRN Reason: Nausea and Vomiting Last Admin: 10/28/22 09:41 Dose: 4 mg Documented By: ANDREE Paroxetine HCl (Paroxetine Hcl 20 Mg Tablet) 20 mg PO DAILY [facility] Pharmacy Consult (Consult Rx Perform Med Rec) 1 each MISCELLANE ONCE PRN PRN Reason: Consult order Rifaximin (Rifaximin 550 Mg Tablet) 550 mg PO BID [facility] Sodium Chloride (0.9 % Sodium Chloride Flush 3 Ml Syringe) 3 ml IVFLUSH QSHIFT [facility] Last Admin: 10/28/22 08:08 Dose: Not Given Documented By: ANDREE Non-Admin Reason: IV Running Thiamine HCl (Thiamine Hcl 100 Mg Tablet) 100 mg PO DAILY [facility] Labs 10/28/22 06:15 10/28/22 06:15 Labs: Laboratory Results - last 24 hr 10/27/22 10/27/22 10/27/22 11:36 11:36 11:36 MCV 96.2 MCH 32.6 MCHC 33.9 RDW 12.6 Plt Count 190 D MPV 10.3 Immature Gran % (Auto) 1.2 H Neut % (Auto) 79.3 H Lymph % (Auto) 7.0 L [place] % (Auto) 11.2 H Eos % (Auto) 0.4 Baso % (Auto) 0.9 Lymph # (Auto) 0.8 L [place] # (Auto) 1.3 H Eos # (Auto) 0.0 Baso # (Auto) 0.1 Abs Immat Gran (auto) 0.14 H Absolute Neuts (auto) 8.9 H Absolute Nucleated RBC 0.000 Nucleated RBC % (auto) 0.0 Anion Gap 16 Estim Creat Clear Calc 66.1 Estimated GFR 45 POC Glucose Random Glucose 789 H* Estimat Average Glucose 220 Hemoglobin A1c % 9.3 Calcium 10.5 H D Magnesium 2.6 Total Bilirubin 8.5 H Direct Bilirubin 5.3 H AST 45 H ALT 37 Alkaline Phosphatase 322 H Total Protein 8.8 H Albumin 3.4 L Triglycerides Lipase 673 H Urine Color Urine Appearance Urine pH Ur Specific [place] Urine Protein Urine Glucose (UA) Urine Ketones Urine Blood Urine Nitrite Ur Leukocyte Esterase Urine RBC Urine WBC Ur Squamous Epith Cells Urine Bacteria Hyaline Casts Urine Opiates Screen Urine Fentanyl Screen Ur Barbiturates Screen Ur Phencyclidine Scrn Ur Amphetamines Screen U Benzodiazepines Scrn Urine Cocaine Screen U Marijuana (THC) Screen Ethyl Alcohol < 10 10/27/22 10/27/22 10/27/22 11:51 11:51 15:15 MCV MCH MCHC RDW Plt Count MPV Immature Gran % (Auto) Neut % (Auto) Lymph % (Auto) [place] % (Auto) Eos % (Auto) Baso % (Auto) Lymph # (Auto) [place] # (Auto) Eos # (Auto) Baso # (Auto) Abs Immat Gran (auto) Absolute Neuts (auto) Absolute Nucleated RBC Nucleated RBC % (auto) Anion Gap 14 Estim Creat Clear Calc 75.6 Estimated GFR 53 POC Glucose Random Glucose 596 H* Estimat Average Glucose Hemoglobin A1c % Calcium 9.9 Magnesium Total Bilirubin Direct Bilirubin AST ALT Alkaline Phosphatase Total Protein Albumin Triglycerides 211 Lipase Urine Color Yellow Urine Appearance Clear Urine pH 5.5 Ur Specific [place] 1.020 Urine Protein Negative Urine Glucose (UA) >=1000 H Urine Ketones Negative Urine Blood Negative Urine Nitrite Negative Ur Leukocyte Esterase Negative Urine RBC 0-2 Urine WBC 0-5 Ur Squamous Epith Cells 0-2 Urine Bacteria None Seen Hyaline Casts 0-2 Urine Opiates Screen Not Detected Urine Fentanyl Screen Not Detected Ur Barbiturates Screen Not Detected Ur Phencyclidine Scrn Not Detected Ur Amphetamines Screen Not Detected U Benzodiazepines Scrn Not Detected Urine Cocaine Screen Not Detected U Marijuana (THC) Screen Not Detected Ethyl Alcohol 10/27/22 10/27/22 10/27/22 17:15 18:50 20:10 MCV MCH MCHC RDW Plt Count MPV Immature Gran % (Auto) Neut % (Auto) Lymph % (Auto) [place] % (Auto) Eos % (Auto) Baso % (Auto) Lymph # (Auto) [place] # (Auto) Eos # (Auto) Baso # (Auto) Abs Immat Gran (auto) Absolute Neuts (auto) Absolute Nucleated RBC Nucleated RBC % (auto) Anion Gap 18 Estim Creat Clear Calc 109.6 Estimated GFR > 60 POC Glucose 537 H* 419 H* Random Glucose 338 H Estimat Average Glucose Hemoglobin A1c % Calcium 9.1 D Magnesium Total Bilirubin Direct Bilirubin AST ALT Alkaline Phosphatase Total Protein Albumin Triglycerides Lipase Urine Color Urine Appearance Urine pH Ur Specific [place] Urine Protein Urine Glucose (UA) Urine Ketones Urine Blood Urine Nitrite Ur Leukocyte Esterase Urine RBC Urine WBC Ur Squamous Epith Cells Urine Bacteria Hyaline Casts Urine Opiates Screen Urine Fentanyl Screen Ur Barbiturates Screen Ur Phencyclidine Scrn Ur Amphetamines Screen U Benzodiazepines Scrn Urine Cocaine Screen U Marijuana (THC) Screen Ethyl Alcohol 10/27/22 10/28/22 10/28/22 20:32 06:15 06:15 MCV 97.9 MCH 32.8 MCHC 33.5 RDW 12.9 Plt Count 148 L MPV 9.9 Immature Gran % (Auto) Neut % (Auto) Lymph % (Auto) [place] % (Auto) Eos % (Auto) Baso % (Auto) Lymph # (Auto) [place] # (Auto) Eos # (Auto) Baso # (Auto) Abs Immat Gran (auto) Absolute Neuts (auto) Absolute Nucleated RBC 0.000 Nucleated RBC % (auto) 0.0 Anion Gap 14 Estim Creat Clear Calc 126.5 Estimated GFR > 60 POC Glucose 323 H Random Glucose 206 H Estimat Average Glucose Hemoglobin A1c % Calcium 9.0 Magnesium Total Bilirubin 7.6 H Direct Bilirubin AST 49 H ALT 33 Alkaline Phosphatase 277 H Total Protein 7.8 Albumin 3.0 L Triglycerides Lipase Urine Color Urine Appearance Urine pH Ur Specific [place] Urine Protein Urine Glucose (UA) Urine Ketones Urine Blood Urine Nitrite Ur Leukocyte Esterase Urine RBC Urine WBC Ur Squamous Epith Cells Urine Bacteria Hyaline Casts Urine Opiates Screen Urine Fentanyl Screen Ur Barbiturates Screen Ur Phencyclidine Scrn Ur Amphetamines Screen U Benzodiazepines Scrn Urine Cocaine Screen U Marijuana (THC) Screen Ethyl Alcohol 10/28/22 06:42 MCV MCH MCHC RDW Plt Count MPV Immature Gran % (Auto) Neut % (Auto) Lymph % (Auto) [place] % (Auto) Eos % (Auto) Baso % (Auto) Lymph # (Auto) [place] # (Auto) Eos # (Auto) Baso # (Auto) Abs Immat Gran (auto) Absolute Neuts (auto) Absolute Nucleated RBC Nucleated RBC % (auto) Anion Gap Estim Creat Clear Calc Estimated GFR POC Glucose 220 H Random Glucose Estimat Average Glucose Hemoglobin A1c % Calcium Magnesium Total Bilirubin Direct Bilirubin AST ALT Alkaline Phosphatase Total Protein Albumin Triglycerides Lipase Urine Color Urine Appearance Urine pH Ur Specific [place] Urine Protein Urine Glucose (UA) Urine Ketones Urine Blood Urine Nitrite Ur Leukocyte Esterase Urine RBC Urine WBC Ur Squamous Epith Cells Urine Bacteria Hyaline Casts Urine Opiates Screen Urine Fentanyl Screen Ur Barbiturates Screen Ur Phencyclidine Scrn Ur Amphetamines Screen U Benzodiazepines Scrn Urine Cocaine Screen U Marijuana (THC) Screen Ethyl Alcohol Assessment and Plan (1) Peripheral neuropathy: Status: Acute (2) Acute pancreatitis: Status: Acute (3) Acute hyperglycemia: Status: Acute (4) Pseudohyponatremia: Status: Acute Plan ?a 56 years old male with alcoholic liver cirrhosis, COPD, GERD and recurrent pleural?effusions who presents to the hospital complaining of abd pain, Nausea and 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 hyperglycemia 2/2 newly diagnosed diabetes type 2 HbA1c of 9.7 Improved with IVF and insulin Lantus 10 units daily Continue SSI POC Hyperkalemia 2/2 Acute kidney injury improving continue with IVF monitor I\O, BMP hyponatremia improving with resolution of hyperglycemia follow BMP , IVF acute pancreatitis CT scan showing possible acute on chronic pancreatitis IVF pain meds Advance diet as tolerated Alcohol use disorder reports last drink 6 days ago CIWA Continue home meds DVT PPx Lovenox The patient will need overnight hospital stay for treatment of TORSTEN, pancreatitis and elevated sugar, can not be done in any less acute care. Time Spent With Patient Time: Total time managing care of this patient today ____ minutes. Quality Stroke Does the patient have a stroke diagnosis?: No VTE Prior VTE?: No VTE Risk Level:: Medical - moderate - high VTE Device Contraindication: Treatment Not Indicated VTE Drug Contraindication: N/A - Med Ordered
[2022-10-28 11:07] VITALS: BP 146/96; PULSE 102; RESP 20; TEMP 36.5; O2SAT 97
[2022-10-28 12:12] LABS: Glucose, Whole Blood 203 mg/dL (60-115)
--- NOTE | 2022-10-28 13:40 | MHC.CM.PN ---
EMR REVIEWED, PT W//NV, PANCREATITIS. CM MET W/PT WHO REPORTS HE LIVES W/A ROOMMATE, INDEP W/ALL CARE, DENIES USE OF DME/HOME SERVICES, PT DENIES NEED FOR RECOVERY TEAM, REPORTS HE HAS NOT HAD A DRINK IN 6 DAYS AND THE RESOURCES PT WAS GIVEN ARE WORKING WELL. ANTIC RECEOVERY TEAM MAY SEE PT REGARDLESS D/T PANCREATITIS DX PT VERIFIES PCP ON FILE IS CORRECT, J&J AND 2 BOOSTERS AND SISTER YASMANI BUSTAMANTE [phone] IS HIS HCP, PT REPORTS THERE IS A COPY AT HIS PCP, CM WILL FOLLOW-UP ON SUNDAY. DCP: HOME NO SERVICES W/SISTER YASMANI FOR TRANSPORT
[2022-10-28] MEDS: Lipase/Prot/Amylase 24/76/120K 1 CAP CAPSULE.DR PO ×2 (14:14→22:31)
[2022-10-28 14:15] LABS: Glucose, Whole Blood 216 mg/dL (60-115)
[2022-10-28 15:31] LABS: Glucose, Whole Blood 222 mg/dL (60-115)
[2022-10-28 15:44] VITALS: BP 160/100; PULSE 106; RESP 20; TEMP 36.6; O2SAT 96
[2022-10-28] MEDS: 0.9 % Sodium Chloride Flush 3 ML SYRINGE IVFLUSH (17:01)
[2022-10-28] MEDS: Enoxaparin Sodium 40 MG/0.4 ML SYRINGE SUBCUT (17:01)
[2022-10-28 18:24] LABS: Glucose, Whole Blood 200 mg/dL (60-115)
[2022-10-28 19:30] VITALS: BP 169/101; PULSE 114; RESP 20; TEMP 36.7; O2SAT 96
[2022-10-28] MEDS: rifAXIMin 550 MG TABLET PO (22:31)
[2022-10-28] MEDS: Imipramine HCl 50 MG TABLET PO (22:31)
[2022-10-28 22:47] LABS: Glucose, Whole Blood 182 mg/dL (60-115)
[2022-10-28 23:14] VITALS: BP 153/95; PULSE 112; RESP 18; TEMP 36.1; O2SAT 91
[2022-10-29 03:45] VITALS: BP 149/99; PULSE 111; RESP 20; TEMP 37.2; O2SAT 95
[2022-10-29] MEDS: 0.9 % Sodium Chloride 1,000 ML 200 ML IVCONT ×2 (04:59→08:00)
[2022-10-29 06:08] LABS: Glucose, Whole Blood 180 mg/dL (60-115)
[2022-10-29] MEDS: Morphine Sulfate 4 MG/ML CARTRIDGE IVPUSH ×4 (06:30→21:21)
[2022-10-29] MEDS: Omeprazole 40 MG CAPSULE.DR PO (06:31)
[2022-10-29 06:37] LABS: Glucose, Whole Blood 194 mg/dL (60-115)
[2022-10-29 06:53] LABS: Hematocrit 41.7 % (42.0-52.0); Hemoglobin 13.6 g/dl (14.0-18.0); Mean Corpuscular HGB Conc 32.6 g/dl (31.0-36.0); Mean Corpuscular Hemoglobin 33.1 pg (27.0-33.0); Mean Corpuscular Volume 101.5 fL (80.0-98.0); Mean Platelet Volume 9.9 fL (9.4-12.4); Platelet Count 141 X10*3/uL (160-400); Red Blood Count 4.11 X10*6/uL (4.60-5.80); Red Cell Distribution Width 13.2 % (11.0-16.0); White Blood Count 9.5 X10*3/uL (4.8-10.8)
[2022-10-29 07:06] LABS: Anion Gap 11 (12-20); Blood Urea Nitrogen 13 mg/dL (9-16); Calcium 8.5 mg/dL (8.4-10.2); Carbon Dioxide 26 mmol/L (22-29); Chloride 98 mmol/L (96-108); Creatinine Clr Calc Pharmacy 153.5; Estimated Glomerular Filt Rate > 60; Glucose Random 188 mg/dL (60-115); Potassium 4.8 mmol/L (3.3-5.1); Sodium 130 mmol/L (135-145)
[2022-10-29 07:25] VITALS: BP 156/95; PULSE 116; RESP 20; TEMP 36.9; O2SAT 95
[2022-10-29] MEDS: Insulin Lispro 100 UNIT/ML 3 ML VIAL SUBCUT ×4 (08:00→21:20)
[2022-10-29] MEDS: Folic Acid 1 MG TABLET PO (08:01)
[2022-10-29] MEDS: Lipase/Prot/Amylase 24/76/120K 1 CAP CAPSULE.DR PO ×3 (08:01→21:20)
[2022-10-29] MEDS: buPROPion HCl XL 300 MG TAB.ER.24H PO (08:01)
[2022-10-29] MEDS: Insulin Glargine,Hum.rec.anlog 100 UNIT/ML 10 ML VIAL 10 UNIT SUBCUT (08:01)
[2022-10-29] MEDS: rifAXIMin 550 MG TABLET PO ×2 (08:01→21:21)
[2022-10-29] MEDS: Thiamine HCL 100 MG TABLET PO (08:01)
[2022-10-29] MEDS: hydrOXYzine HCL 25 MG TABLET PO (08:02)
[2022-10-29] MEDS: PARoxetine HCL 20 MG TABLET PO (08:07)
[2022-10-29 10:19] LABS: Glucose, Whole Blood 243 mg/dL (60-115)
--- NOTE | 2022-10-29 10:23 | P.PNIM_ITS ---
Subjective Subjective Date of Service: 10/29/22 Interval History: Seen and evaluated improved nausea and vomiting able to tolerate clears, asks for more blood sugar better controlled no other overnight events Review of Systems No fever, chills but has weakness No chest pain, palpitation No shortness of breath or coughing improved abdominal pain, no nausea and vomiting No urinary symptoms No any rash or wounds Physical Exam Vital Signs: Vital Signs: Last Vital Signs Temp 98.5 F 10/29/22 07:25 Pulse 116 H 10/29/22 07:25 Resp 20 10/29/22 07:25 BP 156/95 H 10/29/22 07:25 Pulse Ox 95 10/29/22 07:25 O2 Del Method Room Air 10/29/22 07:25 BMI result Body Mass Index 28.8 Const: Other: Constitutional : Awake, interactive, not in distress Neck : Normal inspection, Supple Cardiovascular : RRR, no JVP, no lower extremity edema Respiratory : good bilateral air entry, no crackles, wheezes or rhonchi Gastrointestinal: soft, lax, Normal bowel sounds, Non tender, significantly distended with ascites, epigastric and RUQ no significant tenderness with no surgical signs Skin : Warm, Dry Neurological : Alert & oriented x3, No focal deficit Objective Data Active Medications Acetaminophen (Acetaminophen 325 Mg Tablet) 650 mg PO Q6H PRN PRN Reason: Pain, Mild (Pain Scale 1-3) Last Admin: 10/28/22 08:07 Dose: 650 mg Documented By: ANDREE Albuterol Sulfate (Albuterol Sulfate 90 Mcg 8 Gm Inhaler) 2 puff INHALE Q4H PRN PRN Reason: Shortness Of Breath Lipase/Protease/Amylase (Lipase/Prot/Amylase 24/76/120k 1 Cap Capsule.Dr) 1 cap PO TID [facility] Last Admin: 10/29/22 08:01 Dose: 1 cap Documented By: ANDREE Bupropion HCl (Bupropion Hcl Xl 300 Mg Tab.Er.24h) 300 mg PO DAILY [facility] Last Admin: 10/29/22 08:01 Dose: 300 mg Documented By: ANDREE Folic Acid (Folic Acid 1 Mg Tablet) 1 mg PO DAILY [facility] Last Admin: 10/29/22 08:01 Dose: 1 mg Documented By: ANDREE Hydroxyzine HCl (Hydroxyzine Hcl 25 Mg Tablet) 25 mg PO DAILY [facility] Last Admin: 10/29/22 08:02 Dose: 25 mg Documented By: ANDREE Sodium Chloride (Ns) 1,000 mls @ 100 mls/hr IVCONT .Q10H [facility] Last Admin: 10/29/22 08:00 Dose: 200 mls/hr Documented By: ANDREE Imipramine HCl (Imipramine Hcl 50 Mg Tablet) 50 mg PO BEDTIME [facility] Last Admin: 10/28/22 22:31 Dose: 50 mg Documented By: KARIS Insulin Glargine (Insulin Glargine,Hum.Rec.Anlog 100 Unit/Ml 10 Ml Vial) 10 unit SUBCUT DAILY [facility] Last Admin: 10/29/22 08:01 Dose: 10 unit Documented By: ANDREE Insulin Human Lispro (Insulin Lispro 100 Unit/Ml 3 Ml Vial) 0 unit SUBCUT QIDACHS [facility]; Protocol Last Admin: 10/29/22 08:00 Dose: 2 unit Documented By: ANDREE Comments: Lactulose (Lactulose 20 Gm/30 Ml Solution) 20 gm PO TID PRN PRN Reason: Constipation Lorazepam (Lorazepam 0.5 Mg Tablet) 0.5 mg PO Q8H PRN PRN Reason: Anxiety Last Admin: 10/27/22 20:24 Dose: 0.5 mg Documented By: JESSICA Lorazepam (Lorazepam 0.5 Mg Tablet) 0.5 mg PO DAILY PRN PRN Reason: anxiety attack Morphine Sulfate (Morphine Sulfate 4 Mg/Ml Cartridge) 4 mg IVPUSH Q4H PRN; Protocol PRN Reason: Pain, Severe (Pain Scale 7-10) Last Admin: 10/29/22 06:30 Dose: 4 mg Documented By: KARIS Omeprazole (Omeprazole 40 Mg Capsule.Dr) 40 mg PO DAILY@0630 [facility] Last Admin: 10/29/22 06:31 Dose: 40 mg Documented By: KARIS Ondansetron HCl (Ondansetron Hcl 4 Mg/2 Ml Vial) 4 mg IVPUSH Q8H PRN PRN Reason: Nausea and Vomiting Last Admin: 10/28/22 18:23 Dose: 4 mg Documented By: ANDREE Paroxetine HCl (Paroxetine Hcl 20 Mg Tablet) 20 mg PO DAILY [facility] Last Admin: 10/29/22 08:07 Dose: 20 mg Documented By: ANDREE Pharmacy Consult (Consult Rx Perform Med Rec) 1 each MISCELLANE ONCE PRN PRN Reason: Consult order Rifaximin (Rifaximin 550 Mg Tablet) 550 mg PO BID [facility] Last Admin: 10/29/22 08:01 Dose: 550 mg Documented By: ANDREE Sodium Chloride (0.9 % Sodium Chloride Flush 3 Ml Syringe) 3 ml IVFLUSH QSHIFT [facility] Last Admin: 10/29/22 08:05 Dose: Not Given Documented By: ANDREE Non-Admin Reason: IV Running Thiamine HCl (Thiamine Hcl 100 Mg Tablet) 100 mg PO DAILY [facility] Last Admin: 10/29/22 08:01 Dose: 100 mg Documented By: ANDREE Labs 10/29/22 06:05 10/29/22 06:05 Labs: Laboratory Results - last 24 hr 10/28/22 10/28/22 10/28/22 11:11 14:10 15:11 MCV MCH MCHC RDW Plt Count MPV Absolute Nucleated RBC Nucleated RBC % (auto) Anion Gap Estim Creat Clear Calc Estimated GFR POC Glucose 203 H 216 H 222 H Random Glucose Calcium 10/28/22 10/28/22 10/29/22 18:19 22:42 03:21 MCV MCH MCHC RDW Plt Count MPV Absolute Nucleated RBC Nucleated RBC % (auto) Anion Gap Estim Creat Clear Calc Estimated GFR POC Glucose 200 H 182 H 180 H Random Glucose Calcium 10/29/22 10/29/22 10/29/22 06:05 06:05 06:32 MCV 101.5 H MCH 33.1 H MCHC 32.6 RDW 13.2 Plt Count 141 L MPV 9.9 Absolute Nucleated RBC 0.000 Nucleated RBC % (auto) 0.0 Anion Gap 11 L Estim Creat Clear Calc 153.5 Estimated GFR > 60 POC Glucose 194 H Random Glucose 188 H Calcium 8.5 10/29/22 10:14 MCV MCH MCHC RDW Plt Count MPV Absolute Nucleated RBC Nucleated RBC % (auto) Anion Gap Estim Creat Clear Calc Estimated GFR POC Glucose 243 H Random Glucose Calcium Assessment and Plan (1) Alcoholism: Status: Acute (2) Acute hyperglycemia: Status: Acute (3) Acute pancreatitis: Status: Acute Plan ?a 56 years old male with alcoholic liver cirrhosis, COPD, GERD and recurrent pleural?effusions who presents to the hospital complaining of abd pain, Nausea and vomiting for 5 days [employer]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 acute on chronic pancreatitis CT scan showing possible acute on chronic pancreatitis IVF pain meds Advance diet as tolerated hyperglycemia 2/2 newly diagnosed diabetes type 2 HbA1c of 9.7 Improved with IVF and insulin Lantus 15 units daily Continue SSI POC Hyperkalemia 2/2 Acute kidney injury improving continue with IVF monitor I\O, BMP hyponatremia improving with resolution of hyperglycemia follow BMP , IVF Alcohol use disorder reports last drink 6 days ago CIWA Continue home meds DVT PPx Lovenox The patient will need overnight hospital stay for treatment of TORSTEN, pancreatitis and elevated sugar, can not be done in any less acute care. Time Spent With Patient Time: Total time managing care of this patient today ____ minutes. Quality Stroke Does the patient have a stroke diagnosis?: No VTE Prior VTE?: No VTE Risk Level:: Medical - moderate - high VTE Device Contraindication: Treatment Not Indicated VTE Drug Contraindication: N/A - Med Ordered
[2022-10-29 11:15] VITALS: BP 153/90; PULSE 112; RESP 20; TEMP 36.7; O2SAT 94
[2022-10-29 14:26] LABS: Glucose, Whole Blood 256 mg/dL (60-115)
[2022-10-29 15:09] VITALS: BP 155/97; PULSE 111; RESP 18; TEMP 36.7; O2SAT 92
[2022-10-29] MEDS: 0.9 % Sodium Chloride Flush 3 ML SYRINGE IVFLUSH ×2 (15:36→21:21)
[2022-10-29 15:40] LABS: Glucose, Whole Blood 243 mg/dL (60-115)
[2022-10-29] MEDS: 0.9 % Sodium Chloride 1,000 ML 100 ML IVCONT (17:10)
[2022-10-29] MEDS: Acetaminophen 325 MG TABLET 650 MG PO (17:14)
[2022-10-29 19:51] VITALS: BP 147/96; PULSE 113; RESP 20; TEMP 37.1; O2SAT 92
[2022-10-29 20:26] LABS: Glucose, Whole Blood 219 mg/dL (60-115)
[2022-10-29] MEDS: Imipramine HCl 50 MG TABLET PO (21:20)
[2022-10-29 23:56] VITALS: BP 152/88; PULSE 110; RESP 20; TEMP 36.3; O2SAT 92
[2022-10-30 03:22] VITALS: BP 129/79; PULSE 107; RESP 20; TEMP 36.6; O2SAT 91
[2022-10-30] MEDS: 0.9 % Sodium Chloride 1,000 ML 100 ML IVCONT (03:23)
[2022-10-30 07:04] LABS: Hematocrit 38.4 % (42.0-52.0); Hemoglobin 12.9 g/dl (14.0-18.0); Mean Corpuscular HGB Conc 33.6 g/dl (31.0-36.0); Mean Corpuscular Hemoglobin 33.6 pg (27.0-33.0); Mean Platelet Volume 9.5 fL (9.4-12.4); Platelet Count 137 X10*3/uL (160-400); Red Blood Count 3.84 X10*6/uL (4.60-5.80); Red Cell Distribution Width 13.2 % (11.0-16.0); White Blood Count 8.1 X10*3/uL (4.8-10.8)
[2022-10-30 07:17] LABS: Glucose, Whole Blood 151 mg/dL (60-115)
[2022-10-30 07:31] LABS: Anion Gap 11 (12-20); Blood Urea Nitrogen 12 mg/dL (9-16); Calcium 8.5 mg/dL (8.4-10.2); Carbon Dioxide 25 mmol/L (22-29); Chloride 100 mmol/L (96-108); Creatinine Clr Calc Pharmacy 133.8; Estimated Glomerular Filt Rate > 60; Glucose Random 164 mg/dL (60-115); Potassium 4.5 mmol/L (3.3-5.1); Sodium 131 mmol/L (135-145)
[2022-10-30 07:34] VITALS: BP 120/75; PULSE 119; RESP 20; TEMP 36.7; O2SAT 93
[2022-10-30] MEDS: hydrOXYzine HCL 25 MG TABLET PO (08:15)
[2022-10-30] MEDS: buPROPion HCl XL 300 MG TAB.ER.24H PO (08:15)
[2022-10-30] MEDS: rifAXIMin 550 MG TABLET PO (08:15)
[2022-10-30] MEDS: PARoxetine HCL 20 MG TABLET PO (08:15)
[2022-10-30] MEDS: Lipase/Prot/Amylase 24/76/120K 1 CAP CAPSULE.DR PO (08:15)
[2022-10-30] MEDS: Thiamine HCL 100 MG TABLET PO (08:15)
[2022-10-30] MEDS: Insulin Lispro 100 UNIT/ML 3 ML VIAL SUBCUT (08:16)
[2022-10-30] MEDS: Folic Acid 1 MG TABLET PO (08:16)
[2022-10-30] MEDS: Morphine Sulfate 4 MG/ML CARTRIDGE IVPUSH (08:16)
[2022-10-30] MEDS: Insulin Glargine,Hum.rec.anlog 100 UNIT/ML 10 ML VIAL 15 UNIT SUBCUT (08:16)
[2022-10-30] MEDS: 0.9 % Sodium Chloride Flush 3 ML SYRINGE IVFLUSH (08:17)
--- NOTE | 2022-10-30 10:28 | PM.DS ---
DS: Providers Provider Date of Service: 10/30/22 Date of admission: 10/27/22 16:28 Primary care physician: Martin Avilez MD DS: Diagnosis Discharge Diagnosis (1) Alcoholism: Status: Acute (2) Acute hyperglycemia: Status: Acute (3) Acute pancreatitis: Status: Acute (4) Newly diagnosed diabetes: Status: Acute (5) Pseudohyponatremia: Status: Acute DS: Summary Hospital Course Hospital Course: Admission note HPI ?a 56 years old male with alcoholic liver cirrhosis, COPD, GERD and recurrent pleural?effusions who presents to the hospital complaining of abd pain, Nausea and vomiting for 5 days [employer]. The patient report that for the last 5 days he started to have abdominal pain after having and EGD done for varices banding. could not keep anything down. had alcohol 6 days ago. pain is mainly epigastric and RUQ with no radiation to back, associated with decrease PO intake and recurrent episodes of vomiting. no bowel motion in 3 days. no fever, chills, chest pain, palpitations, urinary problem or diarrhea. In ED found to have elevated sugar of 900s with no anion gap. he reports no previous history of diabetes. improved with IV fluids and insulin. Lab showed elevated Lipase level, hyponatremia and hyperkalemia. Admitted for further eval and treatment.? Hospital course Admitted for acute on chronic pancreatitis with ?CT scan showing possible acute on chronic pancreatitis. treated with IVF and pain meds with improvement over the course of hospital stay. Advance diet as tolerated to low fat, diabetic diet. Noticed to have significant hyperglycemia >600 at time of presentation 2/2 newly diagnosed diabetes type 2 with no ketoacidosis. HbA1c of 9.7. Improved with IVF and insulin. to be discharged on Lantus 20 units daily and sliding scale insuline to follow with PCP with 1 week readings for further adjustments. Hyponatremia, Hyperkalemia 2/2 Acute kidney injury on presentation resolved with IVF. Patient has ongoing Alcohol use disorder. Advised complete absitence from alcohol. Diabetic and low fat diet Start insulin lantus (long acting) and Lispro (short acting) as prescribed monitor blood sugar readings 4 times daily and report readings to PCP in 1-2 weeks Avoid alcohol completely watch for symptoms of hypoglycemia Time Spent with Patient Time attestation: Total time managing care of this patient today ____ minutes. Discharge coordination time: Greater than 30 minutes Quality: Safe Use of Opioids Does Pt have an Active Cancer Diagnosis on the Problem List?: No Quality: Stroke Does the patient have a stroke diagnosis?: No Physical Exam Vital Signs: Vital Signs: Last Vital Signs Temp 98.0 F 10/30/22 07:34 Pulse 119 H 10/30/22 07:34 Resp 20 10/30/22 07:34 BP 120/75 10/30/22 07:34 Pulse Ox 93 10/30/22 07:34 O2 Del Method Room Air 10/30/22 07:34 BMI result Body Mass Index 28.8 Const: Other: Constitutional : Awake, interactive, not in distress Neck : Normal inspection, Supple Cardiovascular : RRR, no JVP, no lower extremity edema Respiratory : good bilateral air entry, no crackles, wheezes or rhonchi Gastrointestinal: soft, lax, Normal bowel sounds, Non tender, moderate distended with ascites, no significant tenderness Skin : Warm, Dry Neurological : Alert & oriented x3, No focal deficit DS: Data Data Completed and Pending Completed studies during hospitalization [Text1]: Procedures Control Bleeding in Gastrointestinal Tract, Via Natural or Artificial Opening Endoscopic (11/01/21) Detoxification Services for Substance Abuse Treatment (12/06/21) Drainage of Right Pleural Cavity, Percutaneous Approach (12/06/21) Introduction of Mineral-based Topical Hemostatic Agent into Upper GI, Via Natural or Artificial Opening Endoscopic, [employer] (11/01/21) Occlusion of Esophageal Vein with Extraluminal Device, Via Natural or Artificial Opening Endoscopic (11/01/21) Labs on day of discharge: Laboratory Results - last 24 hr 10/29/22 10/29/22 10/29/22 14:21 15:12 20:18 WBC RBC Hgb Hct MCV MCH MCHC RDW Plt Count MPV Absolute Nucleated RBC Nucleated RBC % (auto) Sodium Potassium Chloride Carbon Dioxide Anion Gap BUN Creatinine Estim Creat Clear Calc Estimated GFR POC Glucose 256 H 243 H 219 H Random Glucose Calcium 10/30/22 10/30/22 10/30/22 06:50 06:50 07:07 WBC 8.1 RBC 3.84 L Hgb 12.9 L Hct 38.4 L MCV 100.0 H MCH 33.6 H MCHC 33.6 RDW 13.2 Plt Count 137 L MPV 9.5 Absolute Nucleated RBC 0.000 Nucleated RBC % (auto) 0.0 Sodium 131 L Potassium 4.5 Chloride 100 Carbon Dioxide 25 Anion Gap 11 L BUN 12 Creatinine 0.86 Estim Creat Clear Calc 133.8 Estimated GFR > 60 POC Glucose 151 H Random Glucose 164 H Calcium 8.[address] scan - abdomen: Radiologist's impression: ITS Impressions Abdomen Ultrasound 10/27/22 12:15 IMPRESSION: 1. Hepatic cirrhosis without focal abnormality. 2. Mild perihepatic fluid superiorly. 3. Mild heterogeneity in the pancreas without pancreatic ductal dilatation. Please refer to the report from the CT scan of the abdomen and pelvis from today for more detailed findings. Abdomen/Pelvis CT 10/27/22 13:32 IMPRESSION: 1. Cirrhosis, splenomegaly, small perihepatic ascites, and prominent upper abdominal vasculature including recanalized paraumbilical vein and esophageal varices, consistent with portal hypertension. 2. No change in peripancreatic infiltration and adenopathy, most likely on the basis of chronic pancreatitis, though both superimposed acute pancreatitis and underlying pancreatic neoplasm would be difficult to exclude on this unenhanced examination. 3. Circumferential thickening of the stomach, similar in appearance to the prior study, raising concern of gastric neoplastic infiltration or gastritis. 4. Constipation. Fleischner guidelines were followed. Discharge Plan Discharge Anticipated Discharge Date/Time: 10/30/22 09:53 Patient Disposition: Home, Self-Care Discharge Diagnosis: Newly diagnosed diabetes type 2 acute on chronic pancreatitis Referrals: Martin Avilez MD [Primary Care Provider] - 1 Week Discharge Medications: New ondansetron 4 mg tablet,disintegrating 4 mg PO Q8H PRN (Reason: nausea and vomiting) Qty: 14 0RF (DME) FreeStyle Lite Strips Strip See Rx Instructions .ROUTE .MEDSUPPLY Qty: 100 2RF Rx Instructions: QID (DME) lancets Misc See Rx Instructions .ROUTE .MEDSUPPLY Qty: 200 2RF Rx Instructions: 4 times daily (DME) blood-glucose meter [FreeStyle Lite Meter] Kit See Rx Instructions .ROUTE .MEDSUPPLY Qty: 1 0RF Rx Instructions: As directed alcohol swabs Pads, Medicated 1 pad topical QIDACHS Qty: 200 2RF insulin lispro 100 unit/mL insulin pen See Protocol subcut QIDACHS Qty: 15 2RF Protocol: Insulin Correction Scale Less than or equal to 110 ---- Give (units): 0 111 to 150 Give (units): 0 151 to 200 Give (units): 2 201 to 250 Give (units): 4 251 to 300 Give (units): 6 301 to 350 Give (units): 8 Greater than 350 Give (units): 10 Call MD if Blood Glucose > : 350 insulin glargine 100 unit/mL (3 mL) insulin pen 20 unit subcut QAM Qty: 15 2RF oxycodone 5 mg tablet 5 mg PO Q8H PRN (Reason: pain (scale score 7-10)) Qty: 15 0RF Rx Instructions: Partial Fill upon patient request. (DME) pen needle, diabetic [Pen Needle] 31 gauge x 5/16 needle See Rx Instructions .ROUTE .MEDSUPPLY Qty: 1200 0RF Rx Instructions: As directed Continued Creponcho 24,000-76,000 -120,000 unit capsule,delayed release(DR/EC) 1 cap PO TID Qty: 90 3RF spironolactone 100 mg tablet 300 mg PO DAILY 30 Days Qty: 90 2RF Xifaxan 550 mg tablet 550 mg PO BID Qty: 60 6RF omeprazole 40 mg capsule,delayed release(DR/EC) 40 mg PO DAILY@0630 paroxetine HCl 20 mg tablet 20 mg PO DAILY furosemide 40 mg tablet 80 mg PO DAILY hydroxyzine pamoate 25 mg capsule 25 - 50 mg PO DAILY albuterol sulfate [ProAir HFA] 90 mcg/actuation HFA aerosol inhaler 1 - 2 puff inhalation Q4-6H PRN (Reason: Shortness Of Breath) folic acid 1 mg tablet 1 mg PO DAILY bupropion HCl 300 mg tablet extended release 24 hr 300 mg PO DAILY thiamine HCl (vitamin B1) 100 mg tablet 100 mg PO DAILY imipramine HCl 50 mg tablet 50 mg PO BEDTIME Qty: 30 6RF lactulose 10 gram/15 mL solution 30 ml PO TID PRN (Reason: Constipation) Boost Plus 0.06 gram- 1.5 kcal/mL liquid 1 ea PO BID 30 Days Qty: 67079 1RF lorazepam 0.5 mg tablet 0.5 mg PO DAILY PRN (Reason: anxiety attack) acamprosate 333 mg tablet,delayed release (DR/EC) 666 mg PO TID Qty: 180 0RF Discharge Orders: Discharge Order (Routine); Ordered 10/30/22 Ordered By: Kalyan Moore Diet: Diabetic diet Activity on Discharge: As tolerated Stand Alone Forms: Patient Portal Discharge page Care Plan Goals: Read below Health Concerns: Read below Plan of Treatment: Read below Assessment: You were admitted for evaluation of abdominal pain and high glucose readings. found to have new onset diabetes type 2 and acute on chronic pancreatitis improved with IV fluids and advancing your diet as tolerated. Diabetic and low fat diet Start insulin lantus (long acting) and Lispro (short acting) as prescribed monitor blood sugar readings 4 times daily and report readings to PCP in 1-2 weeks Avoid alcohol completely watch for symptoms of hypoglycemia Patient Instructions: Low Fat Diet (DC), Type 2 Diabetes in Adults: New Diagnosis (GEN) Discharge Date/Time: 10/30/22 12:11
[2022-10-30] MEDS: Spironolactone 25 MG TABLET 300 MG PO (10:30)
[2022-10-30] MEDS: Furosemide 40 MG TABLET 80 MG PO (10:31)
--- NOTE | 2022-10-30 10:48 | MHC.CM.PN ---
DP: PT HAS BEEN MEDICALLY CLEARED FOR DC HOME, NO SERVICES. SISTER WILL TRANSPORT.
[2022-10-30 11:10] LABS: Glucose, Whole Blood 237 mg/dL (60-115)
== END 2022-10-30 12:11 | disposition home or self-care (01) | DRG 282 ==
LOC: HO.ED 12:47 → HO.EDOVER 16:50 → HO.IMC 18:47
PROVIDERS: Physician Assistant; Admitting Provider Student in an Organized Health Care Education/Training Program; Emergency Provider Emergency Medicine; PCP Internal Medicine; Visit Provider Student in an Organized Health Care Education/Training Program
DX: K85.90 Acute pancreatitis without necrosis or infection, unspecified (principal); N17.9 Acute kidney failure, unspecified; K70.30 Alcoholic cirrhosis of liver without ascites; E11.42 Type 2 diabetes mellitus with diabetic polyneuropathy; K86.1 Other chronic pancreatitis; K76.1 Chronic passive congestion of liver; E11.65 Type 2 diabetes mellitus with hyperglycemia; F10.20 Alcohol dependence, uncomplicated; E87.5 Hyperkalemia; K21.9 Gastro-esophageal reflux disease without esophagitis; Z87.891 Personal history of nicotine dependence; Z79.4 Long term (current) use of insulin; Z79.899 Other long term (current) drug therapy
CPT/HCPCS: 36415; 74176; 76705; 80048; 80053; 80076; 80307; 81001; 82947; 83036; 83690; 83735; 84478; 85025; 85027; 93005; 99285; J1170; J1650; J2270; J2405

== ENCOUNTER 2022-11-27 06:18 | Emergency (ER) | payer MEDICAID, SELFPAY ==
--- NOTE | ~2022-11-27 | XR_ITS ---
EXAMINATION: XR CHEST CLINICAL INFORMATION: Chest pain COMPARISON: Chest radiographs 10/24/2022, 07/12/2022, 07/05/2022; CT abdomen 10/27/2022; left ultrasound-guided thoracentesis 07/05/2022. TECHNIQUE: Portable upright AP x2 views of the chest was obtained. FINDINGS: Suspect small left recurrent effusion. No right effusion. No pneumothorax, pleural reaction, lobar or segmental airspace consolidation, groundglass opacity. There is linear disc atelectasis left lower zone. The heart is normal in size. The vascularity is normal. The hilar and mediastinal contours and bony structures are unremarkable. XR/XR chest 1V IMPRESSION: - Suspect small recurrent left effusion. - Disc atelectasis left lower zone. - Lungs otherwise clear. No pneumothorax.
--- NOTE | ~2022-11-27 | CT_ITS ---
EXAMINATION: CT ANGIOGRAM OF THE CHEST WITH CONTRAST (CT PULMONARY ANGIOGRAM FOR PE) CLINICAL INFORMATION: Reason for Exam left chest pain SOB r/o PE COMPARISON: Chest radiograph from 11/27/2022. Chest CT from 04/19/2022. Abdomen CT from 10/27/2022. TECHNIQUE: Prior to contrast administration, noncontrast localization images were obtained. Subsequently, multidetector volumetric imaging was performed from the thoracic inlet to below the diaphragms following the administration of 65 mL Omnipaque 350 intravenous contrast. No contrast reaction reported. Sagittal, coronal, and MIP oblique sagittal reformatted images were obtained on the CT workstation, uploaded to PACS, and reviewed. This CT examination was performed using dose optimization techniques as appropriate, variously including the following: *Automated exposure control *Adjustment of mA and/or kV according to patient size (this includes techniques or standardized protocols for targeted exams where dose is matched to indication/reason for exam; i.e. extremities or head) *Use of iterative reconstruction technique DLP: Total exam dose-length product 339 mGy-cm FINDINGS: LUNGS AND PLEURA: Trachea and central airways are widely patent and normal in caliber. Mild centrilobular and paraseptal emphysema. The right diaphragm is chronically elevated. Small bilateral pleural effusions are present (left larger than right) along with scattered linear opacities of atelectasis or scarring in each lower lobe. Also, mild atelectasis is present in dependent aspect of each lower lobe. QUALITY OF STUDY/CONTRAST BOLUS: Satisfactory. PULMONARY ARTERIES: The pulmonary arteries are normal in size. No embolic filling defects within the main, lobar or segmental vessels. OTHER CARDIOVASCULAR: Cardiac chambers are normal in size. No pericardial effusion. Thoracic aorta has normal size, contour and caliber; no aneurysm or dissection. MEDIASTINUM/LOWER NECK: No mediastinal mass. The esophagus and visualized portion of the thyroid gland unremarkable. LYMPHATICS: No pathologic sized axillary, hilar or mediastinal lymph nodes. UPPER ABDOMEN: The cirrhotic liver is partially included in the [id number]. The left hepatic lobe is chronically hypertrophied and liver has nodular surface contour. The volume of abdominal ascites has worsened compared to 10/27/2022. The chronically enlarged spleen is partially included in [id number]. OSSEOUS STRUCTURES: Bilateral gynecomastia. Mild spondylosis of the thoracic spine. No acute or suspicious osseous abnormality. CT/CT angio chest PE protocol IMPRESSION: * No evidence of pulmonary embolism. * Cirrhotic liver with splenomegaly and worsening ascites compared to 10/27/2022. Also, small bilateral pleural effusions are present (left larger than right) along with bibasilar atelectasis. * Mild pulmonary emphysema.
[2022-11-27 06:23] VITALS: BP 136/90; PULSE 120; O2SAT 98
[2022-11-27 06:27] VITALS: BP 140/96; PULSE 121; RESP 28; TEMP 36.8; O2SAT 93; BMI 29.6
--- NOTE | 2022-11-27 06:29 | ECG_ITS ---
Test Reason : chest pain Blood Pressure : / mmHG Vent. Rate : 120 BPM Atrial Rate : 120 BPM P-R Int : 170 ms QRS Dur : 084 ms QT Int : 326 ms P-R-T Axes : 047 034 049 degrees QTc Int : 460 ms Sinus tachycardia Otherwise normal ECG When compared with ECG of 27-NOV-2022 06:24, No significant change was found Referred By: Franklin Mendoza Electronically Signed By:Manny Beaver
[2022-11-27 06:42] LABS: MANUAL DIFF FLAG NO
[2022-11-27 06:44] LABS: Basophils Absolute Auto 0.1 X10*3/uL (0.0-0.2); Basophils Percent Auto 1.2 % (0-2); Eosinophils Absolute Auto 0.2 X10*3/uL (0.0-0.4); Eosinophils Percent Auto 2.1 % (0-4); Hematocrit 39.4 % (42.0-52.0); Hemoglobin 13.4 g/dl (14.0-18.0); Imm Gran Abs Auto 0.04 X10*3/uL (0.00-0.03); Imm Gran Pct Auto 0.5 % (0.0-0.4); Lymphocytes Percent Auto 13.6 % (20-40); Mean Corpuscular Hemoglobin 33.1 pg (27.0-33.0); Mean Corpuscular Volume 97.3 fL (80.0-98.0); Mean Platelet Volume 8.8 fL (9.4-12.4); Monocytes Absolute Auto 0.9 X10*3/uL (0.1-1.2); Neutrophils Absolute Auto 5.3 x10*3/uL (2.0-8.3); Neutrophils Percent Auto 70.6 % (45-73); Platelet Count 153 X10*3/uL (160-400); Red Blood Count 4.05 X10*6/uL (4.60-5.80); Red Cell Distribution Width 12.7 % (11.0-16.0); White Blood Count 7.5 X10*3/uL (4.8-10.8)
[2022-11-27 07:01] LABS: Anion Gap 11 (12-20); Blood Urea Nitrogen 8 mg/dL (9-16); Calcium 9.1 mg/dL (8.4-10.2); Carbon Dioxide 25 mmol/L (22-29); Chloride 102 mmol/L (96-108); Creatinine Clr Calc Pharmacy 145.8; Estimated Glomerular Filt Rate > 60; Glucose Random 158 mg/dL (60-115); Potassium 4.4 mmol/L (3.3-5.1); Sodium 134 mmol/L (135-145)
--- NOTE | 2022-11-27 07:06 | ED.CHESTPAIN ---
HPI - Chest Pain General Chief Complaint: Chest Pain Stated Complaint: chest pain Time Seen by Provider: 11/27/22 06:58 Source: patient Limitations: no limitations History of Present Illness HPI narrative: 57-year-old male with history of chronic liver disease, alcohol abuse reportedly sober for 6 months presents with chest pain. The chest pain is left-sided. Describes the pain as sharp. It is severe. The pain does not radiate. Is worse with respirations. He also reports some mild shortness of breath. Denies any nausea, vomiting. Patient denies a history of such pain. Denies any falls or trauma. There is no nausea or vomiting. Denies cough or mucus production. UA does lower extremity edema. Related Data Home Medications Medication Instructions Recorded Confirmed bupropion HCl 300 mg 24 hr tablet, 300 mg PO DAILY 06/10/21 10/27/22 extended release folic acid 1 mg tablet 1 mg PO DAILY 06/10/21 10/27/22 thiamine HCl (vitamin B1) 100 mg 100 mg PO DAILY 06/10/21 10/27/22 tablet albuterol sulfate 90 mcg/actuation 1 - 2 puff inhalation Q4-6H PRN 01/26/22 10/27/22 aerosol inhaler (ProAir HFA) Shortness Of Breath hydroxyzine pamoate 25 mg capsule 25 - 50 mg PO DAILY itching 01/26/22 10/27/22 lactulose 10 gram/15 mL oral 30 ml PO TID PRN Constipation 03/08/22 10/27/22 solution lorazepam 0.5 mg tablet 0.5 mg PO DAILY PRN anxiety attack 07/13/22 10/27/22 omeprazole 40 mg capsule,delayed 40 mg PO DAILY@0630 07/13/22 10/27/22 release paroxetine HCl 20 mg tablet 20 mg PO DAILY 07/13/22 10/27/22 furosemide 40 mg tablet 80 mg PO DAILY 10/27/22 10/27/22 Previous Rx's Medication Instructions Recorded imipramine HCl 50 mg tablet 50 mg PO BEDTIME #30 tabs 09/16/21 edyvhj-jynopkah-psozzax 1 cap PO TID #90 caps 02/28/22 24,000-76,000-120,000 unit capsule,delayed rel (Creon) spironolactone 100 mg tablet 300 mg PO DAILY 30 days #90 tabs 07/24/22 food supplemt, lactose-reduced 1 ea PO BID 30 days #14,220 mL 08/01/22 0.06 gram-1.5 kcal/mL oral liquid (Boost Plus) rifaximin 550 mg tablet (Xifaxan) 550 mg PO BID #60 tabs 08/31/22 acamprosate 333 mg tablet,delayed 666 mg PO TID #180 tabs 09/05/22 release alcohol swabs 1 pad topical QIDACHS #200 ea 10/30/22 blood sugar diagnostic (FreeStyle #100 ea 10/30/22 Lite Strips) blood-glucose meter (FreeStyle #1 ea 10/30/22 Lite Meter kit) insulin glargine 100 unit/mL (3 20 unit (0.2 mL) subcut QAM #15 mL 10/30/22 mL) subcutaneous pen insulin lispro 100 unit/mL See Protocol subcut QIDACHS #15 mL 10/30/22 subcutaneous pen lancets #200 ea 10/30/22 ondansetron 4 mg disintegrating 4 mg PO Q8H PRN nausea and 10/30/22 tablet vomiting #14 tabs oxycodone 5 mg tablet 5 mg PO Q8H PRN pain (scale score 10/30/22 7-10) #15 tabs pen needle, diabetic 31 gauge x #1,200 ea 10/31/22/16 (Pen Needle) doxycycline monohydrate 100 mg 100 mg PO BID #20 tabs 11/27/22 tablet oxycodone 5 mg tablet 5 mg PO Q6H PRN pain #10 tabs 11/27/22 Allergies Allergy/AdvReac Type Severity Reaction Status Date / Time No Known Drug Allergies Allergy Mild NONE Verified 10/27/22 11:27 [NO KNOWN DRUG ALLERGIES] Review of Systems Review of Systems: CONSTITUTIONAL: Denies weight loss, fever and chills. HEENT: Denies changes in vision and hearing. RESPIRATORY: Denies SOB and cough. CV: Denies palpitations + CP. GI: Denies abdominal pain, nausea, vomiting and diarrhea. : Denies dysuria and urinary frequency. MSK: Denies myalgia and joint pain. SKIN: Denies rash and pruritus. NEUROLOGICAL: Denies headache and syncope. PSYCHIATRIC: Denies recent changes in mood. Denies anxiety and depression. All other ROS are negative unless in HPI PMFSH Past Medical History Medical History Alcohol use disorder, moderate, dependence Alcoholism Chronic abdominal pain Cirrhosis Dyspnea Elevated LFTs GERD (gastroesophageal reflux disease) Gout Hydropneumothorax Pericardial effusion Peripheral neuropathy Pleural effusion Pleural effusion on right Recurrent left pleural effusion Tachycardia Surgical History H/O cervical spine surgery H/O colonoscopy H/O hemicolectomy History of thoracentesis Hx of esophagogastroduodenoscopy Family History Family History Mother Cancer Sister Cancer Social History Social History Household Members: Friend(s) Household Members Other:: roommate Housing: Apartment Do you presently have visiting nurse or other home services: No Alcohol intake: former Patient Tobacco Use Status: Former Tobacco user Quit Date: 1 mth ago Tobacco use type: Cigarette Cigarettes Per Day: 2 Years Smoked: 30 Smoked in Last 30 Days: No Second Hand Smoke Exposure: No Substance Use Type: Marijuana Advance Directives: Yes Advance Directives on File: Yes Advance Directives Date on File: 11/27/22 service: No Current occupational status: unemployed Physical Exam Vital Signs: Vital Signs: Last Vital Signs Temp 98.9 F 11/27/22 15:52 Pulse 121 H 11/27/22 15:52 Resp 25 H 11/27/22 15:52 BP 134/83 11/27/22 15:52 Pulse Ox 95 11/27/22 15:52 O2 Del Method Room Air 11/27/22 15:52 BMI result Body Mass Index 29.6 GEN: Well developed, no acute distress, alert, oriented, anxious appearing HEENT: Normocephalic, atraumatic, normal external ears, nose appears normal, no oropharyngeal edema or exudates Eyes: Normal to appearance Neck: Supple, no lymphadenopathy Respiratory: Talks in complete sentences, no respiratory distress, clear to auscultation bilaterally, tachypneic Cardiovascular: Regular rate and rhythm, no murmurs rubs or gallops, tachycardic Abdomen: Soft, nontender, nondistended, no guarding, no rebound Back: No CVA tenderness Extremities: No clubbing cyanosis or edema Neurologic: No focal neurologic deficits, cranial nerves 2-12 intact, strength is 5/5 bilaterally tremulous, no asterixis Skin: No rash spider angiomata Course Course Course Narrative: 57-year-old male with history of chronic liver disease, history of alcohol abuse presents with left-sided sharp chest pain. Examination did not reproduce the pain. His lungs are clear to auscultation bilaterally. He was tachypneic and tachycardic. There is no significant lower extremity edema. There is no asterixis knee appeared alert and oriented. I doubt hepatic encephalopathy at this time. Patient's current workup includes a chest x-ray which showed a left pleural effusion but no discrete infiltrate. His CBC showed thrombocytopenia and mild anemia. There is no significant elevated white blood cell count. At this point, we do need to add on some additional testing including PT PTT to assess for additional liver failure related issues, ammonia level, EKG. Will order patient analgesics. Will re-evaluate the patient frequently Reevaluation(s) Reevaluation #1: Discussed results with patient. Aware he has no PE. He is aware that he has a small left pleural effusion. Will recommend following up with his commodity director. Can treat for pain. I alerted Dr. Alvarez, patient's commodity director by tiger text with images of his studies. Time: 15:50 Reevaluation #2: Will discharge patient at this time. Will provide a small amount of oxycodone for pain relief. Recommending follow-up with his commodity director. Per patient's commodity director, will start patient on antibiotics. Time: 16:05 Medications Administered Discontinued Medications Generic Name Dose Route Start Last Admin Trade Name Waliq PRN Reason Stop Dose Admin Iohexol 65 ml 11/27/22 13:51 11/27/22 13:52 Iohexol 350 Mg/Ml 100 Ml Infus..Btl IV 11/27/22 13:52 65 ml ONCE ONE Administration Ketorolac Tromethamine 15 mg 11/27/22 07:04 11/27/22 07:20 Ketorolac Tromethamine 15 Mg/Ml Vial IVPUSH 11/27/22 07:05 15 mg ONCE ONE Administration Morphine Sulfate 4 mg 11/27/22 13:26 11/27/22 13:38 Morphine Sulfate 4 Mg/Ml Cartridge IVPUSH 11/27/22 13:27 4 mg ONCE ONE Administration Protocol Medical Decision Making Medical Decision Making [facility] Narrative: 57-year-old male presents with left-sided chest pain. The chest pain is sharp in nature. Worse with respiration. On my examination, I was unable to reproduce the pain. Does have a history of an elevated D-dimer. Repeating this test would be unhelpful in the diagnosis. His differential diagnosis includes atypical chest pain, musculoskeletal CT chest pain, costochondritis, pericarditis, pneumonia, pleural effusion, empyema, anxiety, muscle strain wrist brace to. Patient will have chest x-ray, laboratory analysis, re-evaluation. Would consider CT angiogram to rule out pulmonary embolus although with history of liver disease, I suspect he has an underlying coagulopathy due to thrombocytopenia and probably vitamin K dependent coagulation pathways. Will provide patient with analgesia. Will continue to monitor patient. Differential Diagnosis Differential Diagnoses: The differential diagnosis associated with the presentation includes (See above) Left-sided chest pain, pleural effusion Admission/Observation Consideration of admission/observation: Escalation of care including admission/observation considered Lab Data [facility] Lab Attestation statement: I reviewed the patient's lab results. 11/27/22 06:39 11/27/22 06:39 Labs: Lab Results 11/27/22 11/27/22 11/27/22 Range/Units 06:39 06:39 06:39 WBC 7.5 (4.8-10.8) X10*3/uL RBC 4.05 L (4.60-5.80) X10*6/uL Hgb 13.4 L (14.0-18.0) g/dl Hct 39.4 L (42.0-52.0) % MCV 97.3 (80.0-98.0) fL MCH 33.1 H (27.0-33.0) pg MCHC 34.0 (31.0-36.0) g/dl RDW 12.7 (11.0-16.0) % Plt Count 153 L (160-400) X10*3/uL MPV 8.8 L (9.4-12.4) fL Immature Gran % (Auto) 0.5 H (0.0-0.4) % Neut % (Auto) 70.6 (45-73) % Lymph % (Auto) 13.6 L (20-40) % [place] % (Auto) 12.0 H (2-11) % Eos % (Auto) 2.1 (0-4) % Baso % (Auto) 1.2 (0-2) % Lymph # (Auto) 1.0 L (1.2-4.9) X10*3/uL [place] # (Auto) 0.9 (0.1-1.2) X10*3/uL Eos # (Auto) 0.2 (0.0-0.4) X10*3/uL Baso # (Auto) 0.1 (0.0-0.2) X10*3/uL Abs Immat Gran (auto) 0.04 H (0.00-0.03) X10*3/uL Absolute Neuts (auto) 5.3 (2.0-8.3) x10*3/uL Absolute Nucleated RBC 0.000 (0.0-0.012) X10*3/uL Nucleated RBC % (auto) 0.0 (0.0-0.2) /100WBC PT (10.0-13.1) SEC INR (0.9-1.1) APTT (26.0-36.4) SEC Sodium 134 L (135-145) mmol/L Potassium 4.4 (3.3-5.1) mmol/L Chloride 102 (96-108) mmol/L Carbon Dioxide 25 (22-29) mmol/L Anion Gap 11 L (12-20) BUN 8 L (9-16) mg/dL Creatinine 0.80 (0.5-1.4) mg/dL Estim Creat Clear Calc 145.8 Estimated GFR > 60 Random Glucose 158 H (60-115) mg/dL Calcium 9.1 D (8.4-10.2) mg/dL Total Bilirubin 6.9 H (0.0-1.0) mg/dL Direct Bilirubin 3.6 H (0.0-0.5) mg/dL AST 56 H (5-37) U/L ALT 31 (0-40) U/L Alkaline Phosphatase 295 H (39-117) U/L Ammonia (13-55) umol/L Troponin I High Sens < 2.7 (<3.5-35.0) ng/L Total Protein 7.4 (6.5-8.0) g/dL Albumin 2.9 L (3.5-5.0) g/dL TSH 3.58 (0.32-4.0) uIU/mL Ethyl Alcohol < 10 mg/dL 11/27/22 11/27/22 Range/Units 07:19 07:19 WBC (4.8-10.8) X10*3/uL RBC (4.60-5.80) X10*6/uL Hgb (14.0-18.0) g/dl Hct (42.0-52.0) % MCV (80.0-98.0) fL MCH (27.0-33.0) pg MCHC (31.0-36.0) g/dl RDW (11.0-16.0) % Plt Count (160-400) X10*3/uL MPV (9.4-12.4) fL Immature Gran % (Auto) (0.0-0.4) % Neut % (Auto) (45-73) % Lymph % (Auto) (20-40) % [place] % (Auto) (2-11) % Eos % (Auto) (0-4) % Baso % (Auto) (0-2) % Lymph # (Auto) (1.2-4.9) X10*3/uL [place] # (Auto) (0.1-1.2) X10*3/uL Eos # (Auto) (0.0-0.4) X10*3/uL Baso # (Auto) (0.0-0.2) X10*3/uL Abs Immat Gran (auto) (0.00-0.03) X10*3/uL Absolute Neuts (auto) (2.0-8.3) x10*3/uL Absolute Nucleated RBC (0.0-0.012) X10*3/uL Nucleated RBC % (auto) (0.0-0.2) /100WBC PT 14.6 H (10.0-13.1) SEC INR 1.3 H (0.9-1.1) APTT 30.7 (26.0-36.4) SEC Sodium (135-145) mmol/L Potassium (3.3-5.1) mmol/L Chloride (96-108) mmol/L Carbon Dioxide (22-29) mmol/L Anion Gap (12-20) BUN (9-16) mg/dL Creatinine (0.5-1.4) mg/dL Estim Creat Clear Calc Estimated GFR Random Glucose (60-115) mg/dL Calcium (8.4-10.2) mg/dL Total Bilirubin (0.0-1.0) mg/dL Direct Bilirubin (0.0-0.5) mg/dL AST (5-37) U/L ALT (0-40) U/L Alkaline Phosphatase (39-117) U/L Ammonia 58 H (13-55) umol/L Troponin I High Sens (<3.5-35.0) ng/L Total Protein (6.5-8.0) g/dL Albumin (3.5-5.0) g/dL TSH (0.32-4.0) uIU/mL Ethyl Alcohol mg/dL Independent Interpretation I performed an independent interpretation of an: EKG (Sinus tachycardia heart rate 120, normal intervals, no acute ST elevations depressions, low voltage), Plain X-Ray (Left pleural effusion, no acute infiltrates, no CHF) and CT Scan (No large PE, left pleural effusion) Radiology Impression Discussion of test interpretation with radiology: I have reviewed the radiologist's reading. Radiologist Impression: CT/CT angio chest PE protocol IMPRESSION: *? No evidence of pulmonary embolism. *? Cirrhotic liver with splenomegaly and worsening ascites compared to 10/27/2022. Also, small bilateral pleural effusions are present (left larger than right) along with bibasilar atelectasis. *? Mild pulmonary emphysema. ? Dictated By: Livan Garcia MD Signed By: <Electronically signed by Livan Garcia MD in [place]> 11/27/22 1535 DD/ 1358 TD/TT:? 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 doxycycline monohydrate 100 mg tablet 100 mg PO BID Qty: 20 0RF No Action Creon 24,000-76,000 -120,000 unit capsule,delayed release(DR/EC) 1 cap PO TID Qty: 90 3RF spironolactone 100 mg tablet 300 mg PO DAILY 30 Days Qty: 90 2RF Xifaxan 550 mg tablet 550 mg PO BID Qty: 60 6RF omeprazole 40 mg capsule,delayed release(DR/EC) 40 mg PO DAILY@0630 paroxetine HCl 20 mg tablet 20 mg PO DAILY furosemide 40 mg tablet 80 mg PO DAILY ondansetron 4 mg tablet,disintegrating 4 mg PO Q8H PRN (Reason: nausea and vomiting) Qty: 14 0RF (DME) FreeStyle Lite Strips Strip See Rx Instructions .ROUTE .MEDSUPPLY Qty: 100 2RF Rx Instructions: QID (DME) lancets Misc See Rx Instructions .ROUTE .MEDSUPPLY Qty: 200 2RF Rx Instructions: 4 times daily (DME) blood-glucose meter [FreeStyle Lite Meter] Kit See Rx Instructions .ROUTE .MEDSUPPLY Qty: 1 0RF Rx Instructions: As directed alcohol swabs Pads, Medicated 1 pad topical QIDACHS Qty: 200 2RF insulin lispro 100 unit/mL insulin pen See Protocol subcut QIDACHS Qty: 15 2RF Protocol: Insulin Correction Scale Less than or equal to 110 ---- Give (units): 0 111 to 150 Give (units): 0 151 to 200 Give (units): 2 201 to 250 Give (units): 4 251 to 300 Give (units): 6 301 to 350 Give (units): 8 Greater than 350 Give (units): 10 Call MD if Blood Glucose > : 350 insulin glargine 100 unit/mL (3 mL) insulin pen 20 unit subcut QAM Qty: 15 2RF oxycodone 5 mg tablet 5 mg PO Q8H PRN (Reason: pain (scale score 7-10)) Qty: 15 0RF Rx Instructions: Partial Fill upon patient request. (DME) pen needle, diabetic [Pen Needle] 31 gauge x 5/16 needle See Rx Instructions .ROUTE .MEDSUPPLY Qty: 1200 0RF Rx Instructions: As directed hydroxyzine pamoate 25 mg capsule 25 - 50 mg PO DAILY albuterol sulfate [ProAir HFA] 90 mcg/actuation HFA aerosol inhaler 1 - 2 puff inhalation Q4-6H PRN (Reason: Shortness Of Breath) folic acid 1 mg tablet 1 mg PO DAILY bupropion HCl 300 mg tablet extended release 24 hr 300 mg PO DAILY thiamine HCl (vitamin B1) 100 mg tablet 100 mg PO DAILY imipramine HCl 50 mg tablet 50 mg PO BEDTIME Qty: 30 6RF lactulose 10 gram/15 mL solution 30 ml PO TID PRN (Reason: Constipation) Boost Plus 0.06 gram- 1.5 kcal/mL liquid 1 ea PO BID 30 Days Qty: 00593 1RF lorazepam 0.5 mg tablet 0.5 mg PO DAILY PRN (Reason: anxiety attack) acamprosate 333 mg tablet,delayed release (DR/EC) 666 mg PO TID Qty: 180 0RF Referrals: Nawaf Alvarez MD [Physician] -
[2022-11-27 07:08] LABS: Troponin-I High Sensitivity < 2.7 ng/L (<3.5-35.0)
--- NOTE | 2022-11-27 07:08 | ECG_ITS ---
Test Reason : chest pain Blood Pressure : / mmHG Vent. Rate : 121 BPM Atrial Rate : 121 BPM P-R Int : 166 ms QRS Dur : 076 ms QT Int : 322 ms P-R-T Axes : 036 030 043 degrees QTc Int : 457 ms Sinus tachycardia Low voltage QRS Borderline ECG When compared with ECG of 27-OCT-2022 11:27, No significant change was found Referred By: Franklin Mendoza Electronically Signed By:Manny Beaver
[2022-11-27] MEDS: Ketorolac Tromethamine 15 MG/ML VIAL IVPUSH (07:20)
[2022-11-27 07:33] LABS: INTERNATIONAL NORM RATIO 1.3 (0.9-1.1); Prothrombin Time 14.6 SEC (10.0-13.1)
[2022-11-27 07:35] LABS: Partial Thromboplastin Time 30.7 SEC (26.0-36.4)
[2022-11-27 07:46] LABS: Ammonia 58 umol/L (13-55)
[2022-11-27 08:34] LABS: Alanine Aminotransferase 31 U/L (0-40); Albumin Level 2.9 g/dL (3.5-5.0); Alkaline Phosphatase 295 U/L (39-117); Aspartate Amino Transferase 56 U/L (5-37); Bilirubin Direct 3.6 mg/dL (0.0-0.5); Bilirubin Total 6.9 mg/dL (0.0-1.0); Ethanol < 10 mg/dL; Thyroid Stimulating Hormone 3.58 uIU/mL (0.32-4.0); Total Protein 7.4 g/dL (6.5-8.0)
[2022-11-27 10:49] VITALS: BP 123/81; PULSE 125; RESP 22; O2SAT 92
[2022-11-27] MEDS: Morphine Sulfate 4 MG/ML CARTRIDGE IVPUSH (13:38)
[2022-11-27] MEDS: iohexoL 350 MG/ML 100 ML INFUS..BTL 65 ML IV (13:52)
[2022-11-27 15:52] VITALS: BP 134/83; PULSE 121; RESP 25; TEMP 37.2; O2SAT 95
== END 2022-11-27 16:36 | disposition home or self-care (01) ==
PROVIDERS: Emergency Provider Emergency Medicine; PCP Internal Medicine
DX: R07.9 Chest pain, unspecified (principal); J90 Pleural effusion, not elsewhere classified; K74.60 Unspecified cirrhosis of liver; Z87.891 Personal history of nicotine dependence; Z79.4 Long term (current) use of insulin; Z79.899 Other long term (current) drug therapy
CPT/HCPCS: 36415; 71045; 71275; 80048; 80076; 80307; 82140; 84443; 84484; 85025; 85610; 85730; 93005; 96374; 96375; 99284; 99285; J1885; J2270; Q9967

== ENCOUNTER 2022-11-27 18:42 | Inpatient (IN) | payer MEDICAID, SELFPAY ==
--- NOTE | ~2022-11-27 | US_ITS ---
EXAMINATION: US ABDOMEN COMPLETE and abdominal Doppler exam CLINICAL INFORMATION: Worsening ascites and varices. COMPARISON: Previous abdominal ultrasound and CT October 2022 TECHNIQUE: Real-time imaging of the abdominal viscera. FINDINGS: PANCREAS: Not well-visualized due to bowel gas ABDOMINAL AORTA: The proximal, mid, and distal segments are normal in caliber. INFERIOR VENA CAVA: Visualized portions are normal. LIVER: Cirrhotic appearing slightly heterogeneous liver. No focal hepatic lesion. There is no intrahepatic biliary duct dilatation seen. GALLBLADDER: The gallbladder is normal in size. The gallbladder wall is thickened measuring up to 0.8 cm. There is a 4 mm echogenic density adjacent to the gallbladder wall questionable for small adherent gallstone versus a polyp. COMMON BILE DUCT: Normal in caliber measuring 0.7 cm in diameter. RIGHT KIDNEY: 1.5 cm cyst with dependent or wall calcification. No hydronephrosis. No renal calculi or focal parenchymal lesions. The kidney measures 11.7 cm in maximum dimension. LEFT KIDNEY: Normal. No hydronephrosis. No renal calculi or focal parenchymal lesions. The kidney measures 12 cm in maximum dimension. SPLEEN: Slightly enlarged. The spleen measures 14 cm in maximum dimension. FREE FLUID: Mild to moderate amount of ascites Abdominal Doppler exam: The extrahepatic, main, right and left portal veins are patent with appropriate hepatopedal flow. The splenic vein is patent with appropriate hepatopedal flow. The main, right left hepatic arteries are patent patent. Main hepatic artery peak systolic velocity is slightly elevated measuring 2 6 7 mg/cm. The hepatic veins are patent with normal waveforms.. The IVC is patent with normal waveform. US/US abdomen complete IMPRESSION: Cirrhotic-appearing liver. Mild to moderate amount of ascites. Slightly enlarged spleen. Patent main portal vein with appropriate hepatopedal flow.
--- NOTE | ~2022-11-27 | US_ITS ---
EXAMINATION: US ABDOMEN COMPLETE and abdominal Doppler exam CLINICAL INFORMATION: Worsening ascites and varices. COMPARISON: Previous abdominal ultrasound and CT October 2022 TECHNIQUE: Real-time imaging of the abdominal viscera. FINDINGS: PANCREAS: Not well-visualized due to bowel gas ABDOMINAL AORTA: The proximal, mid, and distal segments are normal in caliber. INFERIOR VENA CAVA: Visualized portions are normal. LIVER: Cirrhotic appearing slightly heterogeneous liver. No focal hepatic lesion. There is no intrahepatic biliary duct dilatation seen. GALLBLADDER: The gallbladder is normal in size. The gallbladder wall is thickened measuring up to 0.8 cm. There is a 4 mm echogenic density adjacent to the gallbladder wall questionable for small adherent gallstone versus a polyp. COMMON BILE DUCT: Normal in caliber measuring 0.7 cm in diameter. RIGHT KIDNEY: 1.5 cm cyst with dependent or wall calcification. No hydronephrosis. No renal calculi or focal parenchymal lesions. The kidney measures 11.7 cm in maximum dimension. LEFT KIDNEY: Normal. No hydronephrosis. No renal calculi or focal parenchymal lesions. The kidney measures 12 cm in maximum dimension. SPLEEN: Slightly enlarged. The spleen measures 14 cm in maximum dimension. FREE FLUID: Mild to moderate amount of ascites Abdominal Doppler exam: The extrahepatic, main, right and left portal veins are patent with appropriate hepatopedal flow. The splenic vein is patent with appropriate hepatopedal flow. The main, right left hepatic arteries are patent patent. Main hepatic artery peak systolic velocity is slightly elevated measuring 2 6 7 mg/cm. The hepatic veins are patent with normal waveforms.. The IVC is patent with normal waveform. US/US duplex arterial venous comp IMPRESSION: Cirrhotic-appearing liver. Mild to moderate amount of ascites. Slightly enlarged spleen. Patent main portal vein with appropriate hepatopedal flow.
--- NOTE | ~2022-11-27 | US_ITS ---
EXAMINATION: Ultrasound-guided paracentesis CLINICAL INFORMATION: Ascites COMPARISON: Previous CT of the abdomen and pelvis October 2022 TECHNIQUE: Procedure and risks and benefits including bleeding, infection and low blood pressure were discussed with the patient and informed consent was obtained. The right lower quadrant was prepped and draped in usual sterile fashion. The skin and soft tissues were anesthetized with 1% lidocaine plain. Using ultrasound guidance and a 5 Uzbek one-step system, access to the ascitic fluid was obtained. 6.9 L of slightly cloudy eliseo-colored fluid was removed. Diagnostic specimen was sent. Patient received 50 g IV albumin during the procedure. FINDINGS: There is a large amount of ascites. US/US paracentesis abd w/image IMPRESSION: Ultrasound-guided paracentesis.
[2022-11-27 18:49] VITALS: BP 115/62; PULSE 130; O2SAT 100; BMI 29.6
[2022-11-27 18:52] VITALS: BP 111/72; PULSE 139; RESP 23; TEMP 36.8; O2SAT 100
--- NOTE | 2022-11-27 18:53 | ECG_ITS ---
Test Reason : CHEST PAIN Blood Pressure : / mmHG Vent. Rate : 134 BPM Atrial Rate : 134 BPM P-R Int : 150 ms QRS Dur : 074 ms QT Int : 308 ms P-R-T Axes : 049 035 060 degrees QTc Int : 459 ms Sinus tachycardia Otherwise normal ECG When compared with ECG of 27-NOV-2022 07:18, No significant change was found Referred By: Chris Cardenas Electronically Signed By:Manny Beaver
--- NOTE | 2022-11-27 19:00 | PC.NURSE ---
upon assessment of pt, pt started to vomit blood with clots. MD made aware of pts vomiting up blood with associated blood clots. Pt v/s were stable for pt. MD made aware. MD to placed medications appropriate for pts case.
[2022-11-27 19:23] LABS: MANUAL DIFF FLAG NO
[2022-11-27 19:29] LABS: Basophils Absolute Auto 0.2 X10*3/uL (0.0-0.2); Basophils Percent Auto 1.8 % (0-2); Eosinophils Absolute Auto 0.2 X10*3/uL (0.0-0.4); Eosinophils Percent Auto 2.1 % (0-4); Hematocrit 34.4 % (42.0-52.0); Hemoglobin 11.4 g/dl (14.0-18.0); Imm Gran Abs Auto 0.14 X10*3/uL (0.00-0.03); Imm Gran Pct Auto 1.2 % (0.0-0.4); Lymphocytes Absolute Auto 1.8 X10*3/uL (1.2-4.9); Mean Corpuscular HGB Conc 33.1 g/dl (31.0-36.0); Mean Corpuscular Hemoglobin 33.3 pg (27.0-33.0); Mean Corpuscular Volume 100.6 fL (80.0-98.0); Mean Platelet Volume 9.2 fL (9.4-12.4); Monocytes Absolute Auto 1.3 X10*3/uL (0.1-1.2); Monocytes Percent Auto 11.1 % (2-11); Neutrophils Absolute Auto 7.7 x10*3/uL (2.0-8.3); Neutrophils Percent Auto 67.8 % (45-73); Platelet Count 228 X10*3/uL (160-400); Red Blood Count 3.42 X10*6/uL (4.60-5.80); White Blood Count 11.3 X10*3/uL (4.8-10.8)
[2022-11-27 19:33] LABS: INTERNATIONAL NORM RATIO 1.3 (0.9-1.1); Prothrombin Time 15.6 SEC (10.0-13.1)
[2022-11-27 19:35] LABS: Partial Thromboplastin Time 30.3 SEC (26.0-36.4)
[2022-11-27 19:37] LABS: OBS Int Ctl Valid YES; OBS1 POSITIVE (NEGATIVE)
[2022-11-27 19:50] LABS: Alanine Aminotransferase 27 U/L (0-40); Albumin Level 2.7 g/dL (3.5-5.0); Alkaline Phosphatase 262 U/L (39-117); Anion Gap 16 (12-20); Aspartate Amino Transferase 43 U/L (5-37); Bilirubin Total 6.7 mg/dL (0.0-1.0); Blood Urea Nitrogen 22 mg/dL (9-16); Calcium 8.9 mg/dL (8.4-10.2); Carbon Dioxide 23 mmol/L (22-29); Chloride 102 mmol/L (96-108); Estimated Glomerular Filt Rate > 60; Glucose Random 144 mg/dL (60-115); Potassium 4.7 mmol/L (3.3-5.1); Sodium 136 mmol/L (135-145); Total Protein 6.8 g/dL (6.5-8.0)
[2022-11-27 19:58] LABS: Troponin-I High Sensitivity < 2.7 ng/L (<3.5-35.0)
--- NOTE | 2022-11-27 20:00 | PC.NURSE ---
Pt given medications for the control of his bleeding. Pt hernández not vomited blood after meds given. Pt continues on cardiac monitoring, displaying NSR to ST.
[2022-11-27] MEDS: ondansetron HCL 4 MG/2 ML VIAL IVPUSH (20:03)
[2022-11-27] MEDS: Pantoprazole Sodium 40 MG/10 ML VIAL 80 MG IVPUSH (20:03)
[2022-11-27] MEDS: Octreotide Acetate 100 MCG/ML AMPUL IVPUSH (20:04)
[2022-11-27] MEDS: 0.9 % Sodium Chloride 1,000 ML 999 ML IV (20:04)
--- NOTE | 2022-11-27 20:14 | ED.GENADULT ---
HPI - General Adult General Chief complaint: Nausea/Vomiting/Diarrhea Stated complaint: vomiting blood Time Seen by Provider: 11/27/22 18:49 History of Present Illness HPI narrative: 57-year-old male with past medical history of cirrhosis and esophageal varices presents to the ED for vomiting blood and rectal bleeding. Patient states vomiting dark red blood clots and having dark red blood clot stool since being discharged in the ED today. Patient denies any recent trauma. Patient states never having blood transfusion. Related Data Home Medications Medication Instructions Recorded Confirmed bupropion HCl 300 mg 24 hr tablet, 300 mg PO DAILY 06/10/21 11/27/22 extended release folic acid 1 mg tablet 1 mg PO DAILY 06/10/21 11/27/22 thiamine HCl (vitamin B1) 100 mg 100 mg PO DAILY 06/10/21 11/27/22 tablet albuterol sulfate 90 mcg/actuation 1 - 2 puff inhalation Q4-6H PRN 01/26/22 11/27/22 aerosol inhaler (ProAir HFA) Shortness Of Breath hydroxyzine pamoate 25 mg capsule 25 - 50 mg PO DAILY itching 01/26/22 11/27/22 lactulose 10 gram/15 mL oral 30 ml PO TID PRN Constipation 03/08/22 11/27/22 solution lorazepam 0.5 mg tablet 0.5 mg PO DAILY PRN anxiety attack 07/13/22 11/27/22 omeprazole 40 mg capsule,delayed 40 mg PO DAILY@0630 07/13/22 11/27/22 release paroxetine HCl 20 mg tablet 20 mg PO DAILY 07/13/22 11/27/22 furosemide 40 mg tablet 120 mg PO DAILY 10/27/22 11/27/22 insulin glargine 100 unit/mL (3 30 unit subcut QAM 11/27/22 11/27/22 mL) subcutaneous pen Previous Rx's Medication Instructions Recorded [id number] 1 cap PO TID #90 caps 02/28/22 24,000-76,000-120,000 unit capsule,delayed rel (Creon) spironolactone 100 mg tablet 300 mg PO DAILY 30 days #90 tabs 07/24/22 rifaximin 550 mg tablet (Xifaxan) 550 mg PO BID #60 tabs 08/31/22 acamprosate 333 mg tablet,delayed 666 mg PO TID #180 tabs 09/05/22 release blood sugar diagnostic (FreeStyle #100 ea 10/30/22 Lite Strips) blood-glucose meter (FreeStyle #1 ea 10/30/22 Lite Meter kit) insulin lispro 100 unit/mL See Protocol subcut QIDACHS #15 mL 10/30/22 subcutaneous pen lancets #200 ea 10/30/22 ondansetron 4 mg disintegrating 4 mg PO Q8H PRN nausea and 10/30/22 tablet vomiting #14 tabs pen needle, diabetic 31 gauge x #1,200 ea 10/31/22 5/16 (Pen Needle) oxycodone 5 mg tablet 5 mg PO Q6H PRN pain #10 tabs 11/27/22 Allergies Allergy/AdvReac Type Severity Reaction Status Date / Time No Known Drug Allergies Allergy Mild NONE Verified 10/27/22 11:27 [NO KNOWN DRUG ALLERGIES] Review of Systems Review of Systems: Vomiting blood and rectal bleeding Yes all other systems are reviewed and are negative PMFSH Past Medical History Medical History Alcohol use disorder, moderate, dependence Alcoholism Chronic abdominal pain Cirrhosis Dyspnea Elevated LFTs GERD (gastroesophageal reflux disease) Gout Hydropneumothorax Pericardial effusion Peripheral neuropathy Pleural effusion Pleural effusion on right Recurrent left pleural effusion Tachycardia Surgical History H/O cervical spine surgery H/O colonoscopy H/O hemicolectomy History of thoracentesis Hx of esophagogastroduodenoscopy Family History Family History Mother Cancer Sister Cancer Social History Social History Household Members: Friend(s) Household Members Other:: roommate Housing: Apartment Do you presently have visiting nurse or other home services: No Alcohol intake: former Patient Tobacco Use Status: Former Tobacco user Quit Date: 1 mth ago Tobacco use type: Cigarette Cigarettes Per Day: 2 Years Smoked: 30 Second Hand Smoke Exposure: No Use of substances other than those prescribed or required for medical reasons: No Substance Use Type: Marijuana Any prior treatment program specific to substance use: No Advance Directives: Yes Advance Directives on File: Yes Advance Directives Date on File: 11/27/22 service: No Current occupational status: unemployed Physical Exam ED Vital Signs: Vital Signs - 24 hr 11/27/22 18:52 11/27/22 21:44 Temperature 98.2 F 98.4 F Pulse Rate 139 H 133 H Respiratory Rate 23 H 19 Blood Pressure 111/72 116/82 Pulse Oximetry 100 95 Oxygen Delivery Method Room Air Nasal Cannula Oxygen Flow Rate 3 BMI result Body Mass Index 29.6 Const Other: Vomitting blood General: cooperative Orientation/consciousness: oriented to person, oriented to place, oriented to time and patient oriented x3 HENMT Other: jaundice Head: Yes normal to inspection, Yes No palpable skull fracture present, Yes normocephalic and Yes atraumatic Eyes Other: Icterus General: appearance normal, both eyes and all related structures Neck Neck: Yes normal visual inspection, Yes full ROM and Yes no meningeal signs Chest Chest palpation & inspection: normal inspection of the chest and normal palpation of entire chest wall Resp Effort & Inspection: normal respiratory effort and able to speak in complete sentences Auscultation: clear to auscultation bilaterally Cardio Jugular venous distension: no JVD Heart sounds: S1 normal heart sound present and S2 normal heart sound present GI Other: Abdomen distended due to cirrhosis. Most likely ascites Inspection: Yes normal to inspection Palpation (GI): Soft to palpation, not firm, nontender, no guarding and not rigid General: No CVA tenderness and Yes no CVA tenderness Back/Spine/Pelvis Back: no CVA tenderness, No CVA tenderness and No back tenderness Skin General skin exam: no rashes or lesions noted and elasticity normal Neuro General: oriented to person, oriented to place, oriented to time, patient oriented x3, gait normal, tone normal, moves all extremities, Normal light touch and pain sensation, no meningeal signs, CN's II-XI intact bilaterally and normal sensation to monofilament Extrem General: Yes normal to inspection and Yes full ROM Psych Appearance: grossly normal, well kempt and not disheveled Course Course Course Narrative: Octreotide Protonix ordered. Labs ordered. Protonoix ordered Dr. Vizcarra of Gastroenterology made aware. Patient had lap band esophageal varices done earlier this month by Dr. Geronimo. Reevaluation(s) Reevaluation #1: Case discussed with Dr. Vizcarra who recommends patient be admitted for Rule out GI bleed. Also recommend patient to have Paracentesis to rule out SBP. Case discused with Dr. Sultana he will start patinet on ceftriaxone and he Will order INpatient IR Paracentesis of SBP. Time: 01:49 Medications Administered Generic Name Dose Route Start Last Admin Trade Name Freq PRN Reason Stop Dose Admin Octreotide Acetate 500 mcg/ 501 mls @ 50.1 mls/hr 11/27/22 20:15 11/27/22 22:03 Sodium Chloride IVCONT 50 mcg/hr .Q10H RYAN 50.1 mls/hr Administration 50 MCG/HR Pantoprazole Sodium 80 mg/ 100 mls @ 10 mls/hr 11/27/22 20:15 11/27/22 22:09 Sodium Chloride IV 8 mg/hr .Q10H RYAN 10 mls/hr Administration 8 MG/HR Sodium Chloride 1,000 mls @ 100 mls/hr 11/27/22 22:00 11/27/22 22:00 Ns IVCONT 100 mls/hr .Q10H RYAN Administration Ceftriaxone Sodium 1 gm/ 50 mls @ 100 mls/hr 11/27/22 22:00 11/28/22 00:11 Sodium Chloride IV Infused Q24H RYAN Infusion Thiamine HCl 100 mg/ Sodium 101 mls @ 202 mls/hr 11/27/22 22:10 11/27/22 22:40 Chloride IV Infused DAILY RYAN Infusion Folic Acid 1 mg/ Sodium 50.2 mls @ 100.4 mls/hr 11/27/22 22:10 11/27/22 22:40 Chloride IV Infused DAILY RYAN Infusion Insulin Human Lispro 0 unit 11/27/22 22:00 11/27/22 22:00 Insulin Lispro 100 Unit/Ml 3 Ml Vial SUBCUT 2 unit Q6H RYAN Administration Protocol Sodium Chloride 3 ml 11/28/22 00:00 11/28/22 00:09 0.9 % Sodium Chloride Flush 3 Ml Syringe IVFLUSH 3 ml QSHIFT RYAN Administration Discontinued Medications Generic Name Dose Route Start Last Admin Trade Name Freq PRN Reason Stop Dose Admin Sodium Chloride 1,000 mls @ 999 mls/hr 11/27/22 18:53 11/27/22 21:05 Ns IV 11/27/22 19:53 Infused .Q1H1M STA Infusion Albumin Human 100 mls @ 100 mls/hr 11/27/22 20:34 11/27/22 21:35 Kedbumin 25 % IV 11/27/22 21:33 Infused ONCE ONE Infusion Sodium Chloride 500 mls @ 500 mls/hr 11/27/22 21:47 11/27/22 22:47 Ns IV 11/27/22 22:46 Infused .Q1H STA Infusion Lorazepam 1 mg 11/27/22 20:27 11/27/22 21:11 Lorazepam 2 Mg/Ml Vial IVPUSH 11/27/22 20:28 1 mg STAT STA Administration Octreotide Acetate 100 mcg 11/27/22 18:56 11/27/22 20:04 Octreotide Acetate 100 Mcg/Ml Ampul IVPUSH 11/27/22 18:57 100 mcg ONCE ONE Administration Ondansetron HCl 4 mg 11/27/22 19:36 11/27/22 20:03 Ondansetron Hcl 4 Mg/2 Ml Vial IVPUSH 11/27/22 19:37 4 mg ONCE ONE Administration Pantoprazole Sodium 80 mg 11/27/22 18:53 11/27/22 20:03 Pantoprazole Sodium 40 Mg/10 Ml Vial IVPUSH 11/27/22 18:54 80 mg ONCE ONE Administration Medical Decision Making Medical Decision Making [facility] Narrative: 57-year-old male history of cirrhosis and esophageal varices presents to the ED vomiting dark red blood and having dark rectal bleeding during ED visits. Rectal exam positive for blood in stool. Dark red. Patient given octreotide and Protonix. Fluids ordered. Presently no indication for transfusion. Case discussed with Dr. Vizcarra recommend admission. Patient will have Ultrasound Paracentesis during admission as per Dr. Sultana. Patient started on protonix and octreodie infusion Differential Diagnosis Differential Diagnoses: The differential diagnosis associated with the presentation includes (GI bleed, esophageal varices, Irma-Vizcarra tear,) Admission/Observation Consideration of admission/observation: Escalation of care including admission/observation considered Consult Healthcare Provider Management of the patient was discussed with: Operations Research Director (Dr. Vizcarra ( Gastro). Dr. Sultana ( [facility])) Lab Data MDM Lab Attestation statement: I reviewed the patient's lab results. 11/27/22 19:18 11/27/22 19:18 Labs: Lab Results 11/27/22 11/27/2223 Range/Units 19:18 19:18 19:18 WBC 11.3 H (4.8-10.8) X10*3/uL RBC 3.42 L (4.60-5.80) X10*6/uL Hgb 11.4 L (14.0-18.0) g/dl Hct 34.4 L (42.0-52.0) % MCV 100.6 H (80.0-98.0) fL MCH 33.3 H (27.0-33.0) pg MCHC 33.1 (31.0-36.0) g/dl RDW 13.0 (11.0-16.0) % Plt Count 228 D (160-400) X10*3/uL MPV 9.2 L (9.4-12.4) fL Immature Gran % (Auto) 1.2 H (0.0-0.4) % Neut % (Auto) 67.8 (45-73) % Lymph % (Auto) 16.0 L (20-40) % [place] % (Auto) 11.1 H (2-11) % Eos % (Auto) 2.1 (0-4) % Baso % (Auto) 1.8 (0-2) % Lymph # (Auto) 1.8 (1.2-4.9) X10*3/uL [place] # (Auto) 1.3 H (0.1-1.2) X10*3/uL Eos # (Auto) 0.2 (0.0-0.4) X10*3/uL Baso # (Auto) 0.2 (0.0-0.2) X10*3/uL Abs Immat Gran (auto) 0.14 H (0.00-0.03) X10*3/uL Absolute Neuts (auto) 7.7 (2.0-8.3) x10*3/uL Absolute Nucleated RBC 0.000 (0.0-0.012) X10*3/uL Nucleated RBC % (auto) 0.0 (0.0-0.2) /100WBC PT 15.6 H (10.0-13.1) SEC INR 1.3 H (0.9-1.1) APTT 30.3 (26.0-36.4) SEC Sodium 136 (135-145) mmol/L Potassium 4.7 (3.3-5.1) mmol/L Chloride 102 (96-108) mmol/L Carbon Dioxide 23 (22-29) mmol/L Anion Gap 16 (12-20) BUN 22 H (9-16) mg/dL Creatinine 0.98 (0.5-1.4) mg/dL Estim Creat Clear Calc 119.0 Estimated GFR > 60 Random Glucose 144 H (60-115) mg/dL Calcium 8.9 (8.4-10.2) mg/dL Total Bilirubin 6.7 H (0.0-1.0) mg/dL AST 43 H (5-37) U/L ALT 27 (0-40) U/L Alkaline Phosphatase 262 H (39-117) U/L Troponin I High Sens (<3.5-35.0) ng/L Total Protein 6.8 (6.5-8.0) g/dL Albumin 2.7 L (3.5-5.0) g/dL Stool Occult Blood (NEGATIVE) Blood Type Antibody Screen 11/27/22 11/27/22 11/27/22 Range/Units 19:18 19:18 19:18 WBC (4.8-10.8) X10*3/uL RBC (4.60-5.80) X10*6/uL Hgb (14.0-18.0) g/dl Hct (42.0-52.0) % MCV (80.0-98.0) fL MCH (27.0-33.0) pg MCHC (31.0-36.0) g/dl RDW (11.0-16.0) % Plt Count (160-400) X10*3/uL MPV (9.4-12.4) fL Immature Gran % (Auto) (0.0-0.4) % Neut % (Auto) (45-73) % Lymph % (Auto) (20-40) % [place] % (Auto) (2-11) % Eos % (Auto) (0-4) % Baso % (Auto) (0-2) % Lymph # (Auto) (1.2-4.9) X10*3/uL [place] # (Auto) (0.1-1.2) X10*3/uL Eos # (Auto) (0.0-0.4) X10*3/uL Baso # (Auto) (0.0-0.2) X10*3/uL Abs Immat Gran (auto) (0.00-0.03) X10*3/uL Absolute Neuts (auto) (2.0-8.3) x10*3/uL Absolute Nucleated RBC (0.0-0.012) X10*3/uL Nucleated RBC % (auto) (0.0-0.2) /100WBC PT (10.0-13.1) SEC INR (0.9-1.1) APTT (26.0-36.4) SEC Sodium (135-145) mmol/L Potassium (3.3-5.1) mmol/L Chloride (96-108) mmol/L Carbon Dioxide (22-29) mmol/L Anion Gap (12-20) BUN (9-16) mg/dL Creatinine (0.5-1.4) mg/dL Estim Creat Clear Calc Estimated GFR Random Glucose (60-115) mg/dL Calcium (8.4-10.2) mg/dL Total Bilirubin (0.0-1.0) mg/dL AST (5-37) U/L ALT (0-40) U/L Alkaline Phosphatase (39-117) U/L Troponin I High Sens < 2.7 (<3.5-35.0) ng/L Total Protein (6.5-8.0) g/dL Albumin (3.5-5.0) g/dL Stool Occult Blood POSITIVE (NEGATIVE) Blood Type A Positive Antibody Screen NEGATIVE Independent Interpretation I performed an independent interpretation of an: EKG (Sinus tach) Critical Care Time Critical Care Time Critical Care Time: Yes Total Critical Care Time: 60 Attestation: GI bleed Discharge Plan Discharge Clinical Impression: GI (gastrointestinal bleed) Patient Disposition: Admitted As Inpatient
[2022-11-27] MEDS: Albumin Human 25 % 100 ML IV (20:35)
[2022-11-27] MEDS: LORazepam 2 MG/ML VIAL 1 MG IVPUSH (21:11)
[2022-11-27 21:44] VITALS: BP 116/82; PULSE 133; RESP 19; TEMP 36.9; O2SAT 95
[2022-11-27] MEDS: 0.9 % Sodium Chloride 500 ML IV (21:47)
--- NOTE | 2022-11-27 21:54 | PM.IMHP ---
History of Present Illness Date of Service: 11/27/22 Chief Complaint: GI bleed This is a 57-year-old male with pertinent history of alcoholic liver cirrhosis with esophageal with varices, insulin-dependent diabetes mellitus, mood disorder, gastroesophageal reflux disease who presents to the emergency department for evaluation of GI bleed. Patient states that on the day of presentation, he had 4 episodes of bloody emesis. Patient also had 2 episodes of hematochezia, nonpainful. No recent trauma. He denies fever, chills, abdominal discomfort. Patient underwent esophageal band ligation by Dr. Graham on 10/26/2022. Patient denies chest discomfort, palpitations, shortness of breath, changes in urinary habits. In the emergency department, Gastroenterology was consulted who initiated the patient on octreotide and Protonix. Review of Systems Constitutional: Constitutional: Reports no additional constitutional complaints Cardiovascular: Cardiovascular: Reports no additional cardiovascular complaints Respiratory: Respiratory: Reports no additional respiratory complaints Gastrointestinal: Gastrointestinal: Reports hematochezia, Reports coffee ground emesis and Reports hematemesis Genitourinary: Genitourinary: Reports no additional male genitourinary complaints [facility] Medical History Alcohol use disorder, moderate, dependence Alcoholism Chronic abdominal pain Cirrhosis Dyspnea Elevated LFTs GERD (gastroesophageal reflux disease) Gout Hydropneumothorax Pericardial effusion Peripheral neuropathy Pleural effusion Pleural effusion on right Recurrent left pleural effusion Tachycardia Family History Mother Cancer Sister Cancer Surgical History H/O cervical spine surgery H/O colonoscopy H/O hemicolectomy History of thoracentesis Hx of esophagogastroduodenoscopy Social History Household Members: Friend(s) Household Members Other:: roommate Housing: Apartment Do you presently have visiting nurse or other home services: No Alcohol intake: former Patient Tobacco Use Status: Former Tobacco user Quit Date: 1 mth ago Tobacco use type: Cigarette Cigarettes Per Day: 2 Years Smoked: 30 Second Hand Smoke Exposure: No Substance Use Type: Marijuana Advance Directives: Yes Advance Directives on File: Yes Advance Directives Date on File: 11/27/22 service: No Current occupational status: unemployed Meds Allergies Allergy/AdvReac Type Severity Reaction Status Date / Time No Known Drug Allergies Allergy Mild NONE Verified 10/27/22 11:27 [NO KNOWN DRUG ALLERGIES] Active Medications: Current Medications Octreotide Acetate 500 mcg/ (Sodium Chloride) 501 mls @ 50.1 mls/hr IVCONT .Q10H RYAN Pantoprazole Sodium 80 mg/ (Sodium Chloride) 100 mls @ 10 mls/hr IV .Q10H RYAN Sodium Chloride (Ns) 500 mls @ 500 mls/hr IV .Q1H STA Stop: 11/27/22 22:46 Pharmacy Consult (Consult Rx Perform Med Rec) 1 each MISCELLANE ONCE PRN PRN Reason: Consult order Home Medications Medication Instructions Recorded Confirmed Last Taken Type bupropion HCl 300 mg 24 hr tablet, 300 mg PO DAILY 06/10/21 10/27/22 10/27/22 History extended release folic acid 1 mg tablet 1 mg PO DAILY 06/10/21 10/27/22 10/27/22 History thiamine HCl (vitamin B1) 100 mg 100 mg PO DAILY 06/10/21 10/27/22 10/27/22 History tablet albuterol sulfate 90 mcg/actuation 1 - 2 puff inhalation Q4-6H PRN 01/26/22 10/27/22 Unknown History aerosol inhaler (ProAir HFA) Shortness Of Breath hydroxyzine pamoate 25 mg capsule 25 - 50 mg PO DAILY itching 01/26/22 10/27/22 10/27/22 History lactulose 10 gram/15 mL oral 30 ml PO TID PRN Constipation 03/08/22 10/27/22 10/26/22 History solution lorazepam 0.5 mg tablet 0.5 mg PO DAILY PRN anxiety attack 07/13/22 10/27/22 10/27/22 History omeprazole 40 mg capsule,delayed 40 mg PO DAILY@0630 07/13/22 10/27/22 10/27/22 History release paroxetine HCl 20 mg tablet 20 mg PO DAILY 07/13/22 10/27/22 10/27/22 History furosemide 40 mg tablet 120 mg PO DAILY 10/27/22 10/27/22 10/27/22 History Physical Exam Vital Signs and Narrative: Vital Signs: Last Vital Signs Temp 98.4 F 11/27/22 21:44 Pulse 133 H 11/27/22 21:44 Resp 19 11/27/22 21:44 BP 116/82 11/27/22 21:44 Pulse Ox 95 11/27/22 21:44 O2 Del Method Nasal Cannula 11/27/22 21:44 O2 Flow Rate 3 11/27/22 21:44 BMI result Body Mass Index 29.6 Middle-aged male lying in bed in mild distress Neck supple, no JVD Tachycardic with regular rhythm, S1-S2 heard Regular breath sounds bilaterally, no wheezing or crackles appreciated Abdomen distended, nontender, no guarding, no rigidity Patient is awake, alert and oriented to self, place, time and person ; no focal motor deficit Psych: Normal mood Results Labs 11/27/22 19:18 11/27/22 19:18 Labs: Laboratory Results - last 24 hr 11/27/22 11/27/22 11/27/22 19:18 19:18 19:18 MCV 100.6 H MCH 33.3 H MCHC 33.1 RDW 13.0 Plt Count 228 D MPV 9.2 L Immature Gran % (Auto) 1.2 H Neut % (Auto) 67.8 Lymph % (Auto) 16.0 L [place] % (Auto) 11.1 H Eos % (Auto) 2.1 Baso % (Auto) 1.8 Lymph # (Auto) 1.8 [place] # (Auto) 1.3 H Eos # (Auto) 0.2 Baso # (Auto) 0.2 Abs Immat Gran (auto) 0.14 H Absolute Neuts (auto) 7.7 Absolute Nucleated RBC 0.000 Nucleated RBC % (auto) 0.0 PT 15.6 H INR 1.3 H APTT 30.3 Anion Gap 16 Estim Creat Clear Calc 119.0 Estimated GFR > 60 Random Glucose 144 H Calcium 8.9 Total Bilirubin 6.7 H AST 43 H ALT 27 Alkaline Phosphatase 262 H Troponin I High Sens Total Protein 6.8 Albumin 2.7 L Stool Occult Blood Blood Type Antibody Screen 11/27/22 11/27/22 11/27/22 19:18 19:18 19:18 MCV MCH MCHC RDW Plt Count MPV Immature Gran % (Auto) Neut % (Auto) Lymph % (Auto) [place] % (Auto) Eos % (Auto) Baso % (Auto) Lymph # (Auto) [place] # (Auto) Eos # (Auto) Baso # (Auto) Abs Immat Gran (auto) Absolute Neuts (auto) Absolute Nucleated RBC Nucleated RBC % (auto) PT INR APTT Anion Gap Estim Creat Clear Calc Estimated GFR Random Glucose Calcium Total Bilirubin AST ALT Alkaline Phosphatase Troponin I High Sens < 2.7 Total Protein Albumin Stool Occult Blood POSITIVE Blood Type A Positive Antibody Screen NEGATIVE Assessment and Plan (1) GI bleed: Status: Acute Plan This is a 57-year-old male with pertinent history of alcoholic liver cirrhosis with esophageal with varices, insulin-dependent diabetes mellitus, mood disorder, gastroesophageal reflux disease who presents to the emergency department for evaluation of GI bleed. #. acute GI bleed in a patient with decompensated alcoholic liver cirrhosis with history of esophageal varices. Will admit patient with air sampling and monitoring. Continue resuscitation with IV crystalloids. Patient initiated on Protonix and octreotide drip in the ER. Initiating Rocephin empirically to treat for SBP . Therapeutic and diagnostic paracentesis ordered. Will keep patient NPO, appreciate GI assistance. Repeat H&H #. insulin-dependent diabetes mellitus. Initiating Accu-Cheks with sliding scale insulin every 6 hours #. alcohol use disorder. Monitor CIWA. Continue thiamine and folic acid #. mood disorder. Resume home mood stabilizers once patient no longer NPO med rec pending DVT prophylaxis: SCDs Full code NPO Admit as inpatient and will require two night minimum hospital stay for close monitoring of hemodynamics. Specialist consult pending Time Spent With Patient Time: Total time managing care of this patient today ____ minutes. Quality Stroke Does the patient have a stroke diagnosis?: No VTE Prior VTE?: No VTE Risk Level:: Medical - moderate - high VTE Device Contraindication: N/A - Device Ordered VTE Drug Contraindication: Treatment Not Indicated
[2022-11-27] MEDS: 0.9 % Sodium Chloride 1,000 ML 100 ML IVCONT (22:00)
[2022-11-27] MEDS: Insulin Lispro 100 UNIT/ML 3 ML VIAL SUBCUT (22:00)
[2022-11-27] MEDS: Octreotide Acetate 500 MCG in 0.9 % Sodium Chloride 500 ML 50.1 MCG IVCONT (22:03)
[2022-11-27] MEDS: cefTRIAXone sodium 1 GM in 0.9 % Sodium Chloride 50 ML IV (22:08)
[2022-11-27] MEDS: Pantoprazole Sodium 80 MG in 0.9 % Sodium Chloride 80 ML 10 MG IV (22:09)
[2022-11-27] MEDS: Folic Acid 1 MG in 0.9 % Sodium Chloride 50 ML 100.4 MG IV (22:10)
[2022-11-27] MEDS: Thiamine HCL 100 MG in 0.9 % Sodium Chloride 100 ML 202 MG IV (22:10)
--- NOTE | 2022-11-27 22:14 | PHA.MEDREC ---
Pharmacy Consult ? Medication Reconciliation Pharmacy has completed the medication reconciliation. Patient stated no medications have changed since last time here except insulin increased to 30 units
--- NOTE | 2022-11-27 22:16 | PC.NURSE ---
spoke with Tiny SHELDON and updated on pt status.
[2022-11-28] VITALS (11 sets, daily range): BP systolic 116–142; BP diastolic 62–88; PULSE 106–121; RESP 16–24; TEMP 36.7–37.2; O2SAT 92–98
[2022-11-28 00:09] LABS: Glucose, Whole Blood 162 mg/dL (60-115)
[2022-11-28] MEDS: 0.9 % Sodium Chloride Flush 3 ML SYRINGE IVFLUSH ×2 (00:09→20:41)
[2022-11-28 06:05] LABS: MANUAL DIFF FLAG NO
[2022-11-28 06:08] LABS: Basophils Absolute Auto 0.1 X10*3/uL (0.0-0.2); Basophils Percent Auto 1.1 % (0-2); Eosinophils Absolute Auto 0.1 X10*3/uL (0.0-0.4); Eosinophils Percent Auto 1.5 % (0-4); Hematocrit 27.6 % (42.0-52.0); Hemoglobin 9.2 g/dl (14.0-18.0); Imm Gran Abs Auto 0.08 X10*3/uL (0.00-0.03); Imm Gran Pct Auto 0.9 % (0.0-0.4); Lymphocytes Absolute Auto 1.4 X10*3/uL (1.2-4.9); Lymphocytes Percent Auto 14.6 % (20-40); Mean Corpuscular HGB Conc 33.3 g/dl (31.0-36.0); Mean Corpuscular Hemoglobin 33.1 pg (27.0-33.0); Mean Corpuscular Volume 99.3 fL (80.0-98.0); Mean Platelet Volume 9.2 fL (9.4-12.4); Monocytes Percent Auto 11.2 % (2-11); Neutrophils Absolute Auto 6.6 x10*3/uL (2.0-8.3); Neutrophils Percent Auto 70.7 % (45-73); Platelet Count 163 X10*3/uL (160-400); Red Blood Count 2.78 X10*6/uL (4.60-5.80); Red Cell Distribution Width 12.8 % (11.0-16.0); White Blood Count 9.3 X10*3/uL (4.8-10.8)
--- NOTE | 2022-11-28 06:18 | PC.NURSE ---
Pt continues to having no N/V. pt is actually asking for some thing to drink. Pt contines to not having any vomiting.
[2022-11-28 06:25] LABS: Alanine Aminotransferase 21 U/L (0-40); Albumin Level 2.5 g/dL (3.5-5.0); Alkaline Phosphatase 194 U/L (39-117); Anion Gap 13 (12-20); Aspartate Amino Transferase 35 U/L (5-37); Bilirubin Total 5.4 mg/dL (0.0-1.0); Blood Urea Nitrogen 24 mg/dL (9-16); Calcium 8.3 mg/dL (8.4-10.2); Carbon Dioxide 21 mmol/L (22-29); Chloride 106 mmol/L (96-108); Creatinine Clr Calc Pharmacy 145.8; Estimated Glomerular Filt Rate > 60; Glucose Random 153 mg/dL (60-115); Potassium 4.6 mmol/L (3.3-5.1); Sodium 135 mmol/L (135-145); Total Protein 5.9 g/dL (6.5-8.0)
[2022-11-28 07:29] LABS: Glucose, Whole Blood 140 mg/dL (60-115)
--- NOTE | 2022-11-28 07:52 | PC.NURSE ---
Initial contact with pt after recieving report. pt resting comfortably. IV bags from last night not running well, IVs are patent. new bags of octreo/prot ordered from pharmacy.
[2022-11-28] MEDS: Folic Acid 1 MG in 0.9 % Sodium Chloride 50 ML 100 MG IV (08:15)
[2022-11-28] MEDS: 0.9 % Sodium Chloride 1,000 ML 100 ML IVCONT ×2 (08:16→20:38)
[2022-11-28] MEDS: Octreotide Acetate 500 MCG in 0.9 % Sodium Chloride 500 ML 50.1 MCG IVCONT ×2 (08:17→20:29)
[2022-11-28] MEDS: Pantoprazole Sodium 80 MG in 0.9 % Sodium Chloride 80 ML 10 MG IV (08:46)
--- NOTE | 2022-11-28 08:55 | P.CNGI_ITS ---
History of Present Illness Data of Consult Service Date: 11/28/22 <Natalie Santo MD - Last Filed: 11/28/22 10:06> Primary Care Provider: Unknown Physician <Natalie Santo MD - Last Filed: 11/28/22 10:06> HPI Reason for consult: acute blood loss anemia <Natalie Santo MD - Last Filed: 11/28/22 10:06> 57-year-old male with hx of alcoholic liver cirrhosis with esophageal varices (s/p banding 10/26/22), insulin-dependent diabetes mellitus, mood disorder, gastroesophageal reflux disease who I am seeing for assessment for acute blood loss anemia. Patient had x 1 d of several episodes of sudden onset hematemesis as well as hematochezia. No recent trauma.? He denies fever, chills, abdominal discomfort. No NSAId use, Patient did have 4/10 chest discomfort but this has gone now, .No palpitations, shortness of breath, changes in urinary habits. Last alcohol drink 6 weeks ago per his report Initial HGB 13 g/dl-->9 g/dl , raised MCV, INR 1.3, plts 163 commenced on octretoide and PPI <Natalie Santo MD - Last Filed: 11/28/22 10:06> Review of Systems Review of Systems: Constitutional : No Weight loss, No Fever, No Chills ENT/Mouth : No sore throat, No Rhinorrhea Eyes: No Swelling, No Redness Cardiovascular : No Chest Pain, No SOB, No Edema Respiratory : No Cough, No Sputum, No Wheezing Gastrointestinal : see HPI Genitourinary : NO Dysuria, No Urinary Frequency, No Hematuria, No Urgency Musculoskeletal : No joint pain, No Myalgias, No Joint Swelling Skin : No Skin Lesions, No rash Neuro : No Weakness, No Numbness, No Dizziness, No Headache Psych : No Anxiety/Panic, No Depression Heme/Lymph: No Bruising, No Lymphadenopathy Endocrine : No Polyuria, No Polydipsia All other systems reviewed and are negative. <Natalie Santo MD - Last Filed: 11/28/22 10:06> [facility] Past Medical History Medical History: Medical History Alcohol use disorder, moderate, dependence Alcoholism Chronic abdominal pain Cirrhosis Dyspnea Elevated LFTs GERD (gastroesophageal reflux disease) Gout Hydropneumothorax Pericardial effusion Peripheral neuropathy Pleural effusion Pleural effusion on right Recurrent left pleural effusion Tachycardia <Natalie Santo MD - Last Filed: 11/28/22 10:06> Family History Family History: Family History Mother Cancer Sister Cancer <Natalie Santo MD - Last Filed: 11/28/22 10:06> Surgical History Surgical History: Surgical History H/O cervical spine surgery H/O colonoscopy H/O hemicolectomy History of thoracentesis Hx of esophagogastroduodenoscopy <Natalie Santo MD - Last Filed: 11/28/22 10:06> Social History Social History: Social History Household Members: Friend(s) Household Members Other:: roommate Housing: Apartment Do you presently have visiting nurse or other home services: No Alcohol intake: former Patient Tobacco Use Status: Former Tobacco user Quit Date: 1 mth ago Tobacco use type: Cigarette Cigarettes Per Day: 2 Years Smoked: 30 Second Hand Smoke Exposure: No Substance Use Type: Marijuana Advance Directives Date on File: 11/27/22 service: No Current occupational status: unemployed <Natalie Santo MD - Last Filed: 11/28/22 10:06> Meds Allergies/Adverse reactions: Allergies Allergy/AdvReac Type Severity Reaction Status Date / Time No Known Drug Allergies Allergy Mild NONE Verified 10/27/22 11:27 [NO KNOWN DRUG ALLERGIES] <Natalie Santo MD - Last Filed: 11/28/22 10:06> Active Medications: Current Medications Acetaminophen (Acetaminophen Supp 650 Mg Supp.Rect) 650 mg NC Q6H PRN PRN Reason: Pain, Mild (Pain Scale 1-3) Acetaminophen (Acetaminophen 325 Mg Tablet) 650 mg PO Q6H PRN PRN Reason: Pain, Mild (Pain Scale 1-3) Glucose (Glucose Gel 15 Gm Gel..Gram.) 15 gm PO Q15M PRN; Protocol PRN Reason: per Hypoglycemia Standing Ord. Sodium Chloride (Ns) 1,000 mls @ 100 mls/hr IVCONT .Q10H [facility] Last Admin: 11/28/22 08:16 Dose: 100 mls/hr Ceftriaxone Sodium 1 gm/ (Sodium Chloride) 50 mls @ 100 mls/hr IV Q24H [facility] Last Infusion: 11/28/22 00:11 Dose: Infused Dextrose (D10) 250 mls @ 750 mls/hr IV Q15M PRN; Protocol PRN Reason: per Hypoglycemia Standing Ord. Thiamine HCl 100 mg/ Sodium (Chloride) 101 mls @ 202 mls/hr IV DAILY [facility] Last Infusion: 11/27/22 22:40 Dose: Infused Folic Acid 1 mg/ Sodium (Chloride) 50.2 mls @ 100.4 mls/hr IV DAILY [facility] Last Admin: 11/28/22 08:15 Dose: 100 mls/hr Octreotide Acetate 500 mcg/ (Sodium Chloride) 501 mls @ 50.1 mls/hr IVCONT .Q10H [facility] Last Admin: 11/28/22 08:17 Dose: 50 mcg/hr, 50.1 mls/hr Pantoprazole Sodium 80 mg/ (Sodium Chloride) 100 mls @ 10 mls/hr IV .Q10H [facility] Stop: 11/28/22 17:59 Last Admin: 11/28/22 08:46 Dose: 8 mg/hr, 10 mls/hr Insulin Human Lispro (Insulin Lispro 100 Unit/Ml 3 Ml Vial) 0 unit SUBCUT Q6H [facility]; Protocol Last Admin: 11/28/22 05:41 Dose: Not Given Melatonin (Melatonin 3 Mg Tablet) 6 mg PO BEDTIME PRN PRN Reason: Insomnia Ondansetron HCl (Ondansetron Hcl 4 Mg/2 Ml Vial) 4 mg IVPUSH Q8H PRN PRN Reason: Nausea and Vomiting Pharmacy Consult (Consult Rx Perform Med Rec) 1 each MISCELLANE ONCE PRN PRN Reason: Consult order Sodium Chloride (0.9 % Sodium Chloride Flush 3 Ml Syringe) 3 ml IVFLUSH QSHIFT [facility] Last Admin: 11/28/22 08:32 Dose: Not Given <Natalie Santo MD - Last Filed: 11/28/22 10:06> Home medications: Home Medications Medication Instructions Recorded Confirmed Last Taken Type bupropion HCl 300 mg 24 hr tablet, 300 mg PO DAILY 06/10/21 11/27/22 10/27/22 History extended release folic acid 1 mg tablet 1 mg PO DAILY 06/10/21 11/27/22 10/27/22 History thiamine HCl (vitamin B1) 100 mg 100 mg PO DAILY 06/10/21 11/27/22 10/27/22 History tablet albuterol sulfate 90 mcg/actuation 1 - 2 puff inhalation Q4-6H PRN 01/26/22 11/27/22 Unknown History aerosol inhaler (ProAir HFA) Shortness Of Breath hydroxyzine pamoate 25 mg capsule 25 - 50 mg PO DAILY itching 01/26/22 11/27/22 10/27/22 History lactulose 10 gram/15 mL oral 30 ml PO TID PRN Constipation 03/08/22 11/27/22 10/26/22 History solution lorazepam 0.5 mg tablet 0.5 mg PO DAILY PRN anxiety attack 07/13/22 11/27/22 10/27/22 History omeprazole 40 mg capsule,delayed 40 mg PO DAILY@0630 07/13/22 11/27/22 10/27/22 History release paroxetine HCl 20 mg tablet 20 mg PO DAILY 07/13/22 11/27/22 10/27/22 History furosemide 40 mg tablet 120 mg PO DAILY 10/27/22 11/27/22 10/27/22 History insulin glargine 100 unit/mL (3 30 unit subcut QAM 11/27/22 11/27/22 Unknown Hi story mL) subcutaneous pen <Natalie Santo MD - Last Filed: 11/28/22 10:06> Physical Exam Vital Signs: Vital Signs: Last Vital Signs Temp 98.4 F 11/28/22 04:48 Pulse 120 H 11/28/22 04:48 Resp 24 H 11/28/22 04:48 BP 132/76 11/28/22 04:48 Pulse Ox 95 11/28/22 04:48 O2 Del Method Nasal Cannula 11/28/22 04:48 O2 Flow Rate 3 11/28/22 04:48 BMI result Body Mass Index 29.6 <Natalie Santo MD - Last Filed: 11/28/22 10:06> GEN: Well developed, no acute distress, alert, oriented, anxious appearing, mild jaundice HEENT: Normocephalic, atraumatic, normal external ears, nose appears normal, no oropharyngeal edema or exudates Eyes: Normal to appearance Neck: Supple, no lymphadenopathy Respiratory: Talks in complete sentences, no respiratory distress, clear to auscultation bilaterally, tachypneic Cardiovascular: Regular rate and rhythm, no murmurs rubs or gallops, tachycardic Abdomen: Soft, nontender, nondistended, no guarding, no rebound--shifting dullness Back: No CVA tenderness Extremities: No clubbing cyanosis or edema Neurologic: No focal neurologic deficits, cranial nerves 2-12 intact, strength is 5/5 bilaterally tremulous, no asterixis Skin: spider naevi noted <Natalie Santo MD - Last Filed: 11/28/22 10:06> Results Labs CBC & Chem 7: 11/28/22 05:43 11/28/22 05:43 <Natalie Santo MD - Last Filed: 11/28/22 10:06> Labs: Short CBC 11/27/22 11/28/22 Range/Units 19:18 05:43 WBC 11.3 H 9.3 (4.8-10.8) X10*3/uL Hgb 11.4 L 9.2 L (14.0-18.0) g/dl Hct 34.4 L 27.6 L (42.0-52.0) % Plt Count 228 D 163 D (160-400) X10*3/uL BMP 11/27/22 11/28/22 19:18 05:43 Sodium 136 135 Potassium 4.7 4.6 Chloride 102 106 Carbon Dioxide 23 21 L BUN 22 H 24 H Creatinine 0.98 0.80 Calcium 8.9 8.3 L D Liver Function 11/27/22 11/28/22 Range/Units 19:18 05:43 Total Bilirubin 6.7 H 5.4 H (0.0-1.0) mg/dL AST 43 H 35 (5-37) U/L ALT 27 21 (0-40) U/L Alkaline Phosphatase 262 H 194 H (39-117) U/L Albumin 2.7 L 2.5 L (3.5-5.0) g/dL <Natalie Santo MD - Last Filed: 11/28/22 10:06> Imaging CT scan - abdomen: Attestation: I personally reviewed and interpreted this imaging study as follows: (ascites, cirrhotic liver, splenomegaly ) <Natalie Santo MD - Last Filed: 11/28/22 10:06> Assessment and Plan (1) GI (gastrointestinal bleed): Status: Acute <Natalie Santo MD - Last Filed: 11/28/22 10:06> (2) Esophageal varices: Status: Acute <Natalie Santo MD - Last Filed: 11/28/22 10:06> (3) Decompensation of cirrhosis of liver: Status: Acute <Natalie Santo MD - Last Filed: 11/28/22 10:06> 1/ Acute blood loss anemia with hematemesis and hematochezia with background hx of decompensated alcoholic liver disease. Last banding about 1 month ago. ddx: variceal bleeding, esophgeal or peptic ulcer, dieulafoy PLAN: 1/ x2 IV access 2/ transfuse for HGb around 8 g/dl 3/ cont with PPI and octroetide 4/ hold nsaids 5/ ceftriaxone 1 g daily for 5 d to prevent SBP 6/ paracentesis for therapeutic reasons when able 7/ EGD today urgent due to ongoing blood loss and rapid worsening anemia <Natalie Santo MD - Last Filed: 11/28/22 10:06> Time Spent With Patient Time: Total time managing care of this patient today ____ minutes. <Natalie Santo MD - Last Filed: 11/28/22 10:06> Procedures Date of Service Date of Service: 11/28/22 <Natalie Santo MD - Last Filed: 11/28/22 10:06> 11/28/22 <Chuy Lopez MD - Last Filed: 11/28/22 09:44>
--- NOTE | 2022-11-28 09:00 | PC.NURSE ---
Pt off the floor to surgery suite for procedure
--- NOTE | 2022-11-28 09:44 | P.CONAN_ITS ---
HPI - Anesthesia Eval Consult details Narrative: 57 M for EGD for GI bleed Patient with decompensated alcoholic liver cirrhosis with history of esophageal varices.? Case discussed with Dr Santo and Dr Huerta. As per Dr Santo this has to be done emergently . 2 units of PRBC ordered and available in the room . PMFSH Active Problems Active Problems: All Active Problems GI (gastrointestinal bleed) (Acute) GI bleed (Acute) Newly diagnosed diabetes (Acute) Esophageal varices (Acute) Spinal stenosis (Acute) Chronic low back pain (Acute) Degenerative disc disease, cervical (Acute) Multiple adenomatous polyps (Acute) Neuropathic pain (Acute) Acute alcoholic pancreatitis (Acute) Pleural effusion (Acute) Irritable bowel syndrome with diarrhea (Acute) Elevated liver function tests (Acute) Alcohol withdrawal (Acute) Decompensation of cirrhosis of liver (Acute) Portal vein thrombosis (Acute) Alcoholic cirrhosis of liver (Acute) Hydrothorax (Acute) Bronchopneumonia (Acute) Hepatopulmonary syndrome (Acute) Hyperammonemia (Acute) Alcohol use disorder, moderate, in early remission (Acute) Pericardial effusion (Acute) Dyspnea (Acute) Blood D-dimer assay positive (Acute) Acute pancreatitis (Acute) 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) Recurrent left pleural effusion (Acute) Pleural effusion (Acute) Pericardial effusion (Acute) Tachycardia (Acute) Dyspnea (Acute) Past Medical History Medical History Alcohol use disorder, moderate, dependence Alcoholism Chronic abdominal pain Cirrhosis Dyspnea Elevated LFTs GERD (gastroesophageal reflux disease) Gout Hydropneumothorax Pericardial effusion Peripheral neuropathy Pleural effusion Pleural effusion on right Recurrent left pleural effusion Tachycardia Family History Family History Mother Cancer Sister Cancer Family history of problems with anesthesia: No Surgical History Surgical History H/O cervical spine surgery H/O colonoscopy H/O hemicolectomy History of thoracentesis Hx of esophagogastroduodenoscopy History of Problems with Anesthesia: No Social History Social History Household Members: Friend(s) Household Members Other:: roommate Housing: Apartment Do you presently have visiting nurse or other home services: No Alcohol intake: former Patient Tobacco Use Status: Former Tobacco user Quit Date: 1 mth ago Tobacco use type: Cigarette Cigarettes Per Day: 2 Years Smoked: 30 Second Hand Smoke Exposure: No Substance Use Type: Marijuana Advance Directives Date on File: 11/27/22 service: No Current occupational status: unemployed Meds Allergies Allergy/AdvReac Type Severity Reaction Status Date / Time No Known Drug Allergies Allergy Mild NONE Verified 10/27/22 11:27 [NO KNOWN DRUG ALLERGIES] Active Medications: Current Medications Acetaminophen (Acetaminophen Supp 650 Mg Supp.Rect) 650 mg [place] Q6H PRN PRN Reason: Pain, Mild (Pain Scale 1-3) Acetaminophen (Acetaminophen 325 Mg Tablet) 650 mg PO Q6H PRN PRN Reason: Pain, Mild (Pain Scale 1-3) Glucose (Glucose Gel 15 Gm Gel..Gram.) 15 gm PO Q15M PRN; Protocol PRN Reason: per Hypoglycemia Standing Ord. Sodium Chloride (Ns) 1,000 mls @ 100 mls/hr IVCONT .Q10H [facility] Last Admin: 11/28/22 08:16 Dose: 100 mls/hr Ceftriaxone Sodium 1 gm/ (Sodium Chloride) 50 mls @ 100 mls/hr IV Q24H [facility] Last Infusion: 11/28/22 00:11 Dose: Infused Dextrose (D10) 250 mls @ 750 mls/hr IV Q15M PRN; Protocol PRN Reason: per Hypoglycemia Standing Ord. Thiamine HCl 100 mg/ Sodium (Chloride) 101 mls @ 202 mls/hr IV DAILY [facility] Last Infusion: 11/27/22 22:40 Dose: Infused Folic Acid 1 mg/ Sodium (Chloride) 50.2 mls @ 100.4 mls/hr IV DAILY [facility] Last Admin: 11/28/22 08:15 Dose: 100 mls/hr Octreotide Acetate 500 mcg/ (Sodium Chloride) 501 mls @ 50.1 mls/hr IVCONT .Q10H [facility] Last Admin: 11/28/22 08:17 Dose: 50 mcg/hr, 50.1 mls/hr Pantoprazole Sodium 80 mg/ (Sodium Chloride) 100 mls @ 10 mls/hr IV .Q10H [facility] Stop: 11/28/22 17:59 Last Admin: 11/28/22 08:46 Dose: 8 mg/hr, 10 mls/hr Insulin Human Lispro (Insulin Lispro 100 Unit/Ml 3 Ml Vial) 0 unit SUBCUT Q6H [facility]; Protocol Last Admin: 11/28/22 05:41 Dose: Not Given Melatonin (Melatonin 3 Mg Tablet) 6 mg PO BEDTIME PRN PRN Reason: Insomnia Ondansetron HCl (Ondansetron Hcl 4 Mg/2 Ml Vial) 4 mg IVPUSH Q8H PRN PRN Reason: Nausea and Vomiting Pharmacy Consult (Consult Rx Perform Med Rec) 1 each MISCELLANE ONCE PRN PRN Reason: Consult order Sodium Chloride (0.9 % Sodium Chloride Flush 3 Ml Syringe) 3 ml IVFLUSH QSHIFT [facility] Last Admin: 11/28/22 08:32 Dose: Not Given Home Medications Medication Instructions Recorded Confirmed Last Taken Type bupropion HCl 300 mg 24 hr tablet, 300 mg PO DAILY 06/10/21 11/27/22 10/27/22 History extended release folic acid 1 mg tablet 1 mg PO DAILY 06/10/21 11/27/22 10/27/22 History thiamine HCl (vitamin B1) 100 mg 100 mg PO DAILY 06/10/21 11/27/22 10/27/22 History tablet albuterol sulfate 90 mcg/actuation 1 - 2 puff inhalation Q4-6H PRN 01/26/22 11/27/22 Unknown History aerosol inhaler (ProAir HFA) Shortness Of Breath hydroxyzine pamoate 25 mg capsule 25 - 50 mg PO DAILY itching 01/26/22 11/27/22 10/27/22 History lactulose 10 gram/15 mL oral 30 ml PO TID PRN Constipation 03/08/22 11/27/22 10/26/22 History solution lorazepam 0.5 mg tablet 0.5 mg PO DAILY PRN anxiety attack 07/13/22 11/27/22 10/27/22 History omeprazole 40 mg capsule,delayed 40 mg PO DAILY@0630 07/13/22 11/27/22 10/27/22 History release paroxetine HCl 20 mg tablet 20 mg PO DAILY 07/13/22 11/27/22 10/27/22 History furosemide 40 mg tablet 120 mg PO DAILY 10/27/22 11/27/22 10/27/22 History insulin glargine 100 unit/mL (3 30 unit subcut QAM 11/27/22 11/27/22 Unknown History mL) subcutaneous pen Exam Exam Date and Time: November 28, 2022 0944 Height,Weight and Vital Signs: Height 6 ft 5 in Weight 113.398 kg Last Vital Signs Temp 98.6 F 11/28/22 09:26 Pulse 110 H 11/28/22 09:26 Resp 18 11/28/22 09:26 BP 124/75 11/28/22 09:26 Pulse Ox 98 11/28/22 09:26 O2 Del Method Nasal Cannula 11/28/22 09:26 O2 Flow Rate 2 11/28/22 09:26 Pertinent Lab Results Pertinent Lab Results: Laboratory Tests 11/27/22 11/27/22 11/27/22 19:18 19:18 19:18 WBC 11.3 H RBC 3.42 L Hgb 11.4 L Hct 34.4 L MCV 100.6 H MCH 33.3 H MCHC 33.1 RDW 13.0 Plt Count 228 D MPV 9.2 L Immature Gran % (Auto) 1.2 H Neut % (Auto) 67.8 Lymph % (Auto) 16.0 L [place] % (Auto) 11.1 H Eos % (Auto) 2.1 Baso % (Auto) 1.8 Lymph # (Auto) 1.8 [place] # (Auto) 1.3 H Eos # (Auto) 0.2 Baso # (Auto) 0.2 Abs Immat Gran (auto) 0.14 H Absolute Neuts (auto) 7.7 Absolute Nucleated RBC 0.000 Nucleated RBC % (auto) 0.0 PT 15.6 H INR 1.3 H APTT 30.3 Sodium 136 Potassium 4.7 Chloride 102 Carbon Dioxide 23 Anion Gap 16 BUN 22 H Creatinine 0.98 Estim Creat Clear Calc 119.0 Estimated GFR > 60 POC Glucose Random Glucose 144 H Calcium 8.9 Total Bilirubin 6.7 H AST 43 H ALT 27 Alkaline Phosphatase 262 H Troponin I High Sens Total Protein 6.8 Albumin 2.7 L Stool Occult Blood Blood Type Antibody Screen 11/27/22 11/27/22 11/27/22 19:18 19:18 19:18 WBC RBC Hgb Hct MCV MCH MCHC RDW Plt Count MPV Immature Gran % (Auto) Neut % (Auto) Lymph % (Auto) [place] % (Auto) Eos % (Auto) Baso % (Auto) Lymph # (Auto) [place] # (Auto) Eos # (Auto) Baso # (Auto) Abs Immat Gran (auto) Absolute Neuts (auto) Absolute Nucleated RBC Nucleated RBC % (auto) PT INR APTT Sodium Potassium Chloride Carbon Dioxide Anion Gap BUN Creatinine Estim Creat Clear Calc Estimated GFR POC Glucose Random Glucose Calcium Total Bilirubin AST ALT Alkaline Phosphatase Troponin I High Sens < 2.7 Total Protein Albumin Stool Occult Blood POSITIVE Blood Type A Positive Antibody Screen NEGATIVE 11/28/22 11/28/22 11/28/22 00:01 05:23 05:43 WBC 9.3 RBC 2.78 L Hgb 9.2 L Hct 27.6 L MCV 99.3 H MCH 33.1 H MCHC 33.3 RDW 12.8 Plt Count 163 D MPV 9.2 L Immature Gran % (Auto) 0.9 H Neut % (Auto) 70.7 Lymph % (Auto) 14.6 L [place] % (Auto) 11.2 H Eos % (Auto) 1.5 Baso % (Auto) 1.1 Lymph # (Auto) 1.4 [place] # (Auto) 1.0 Eos # (Auto) 0.1 Baso # (Auto) 0.1 Abs Immat Gran (auto) 0.08 H Absolute Neuts (auto) 6.6 Absolute Nucleated RBC 0.000 Nucleated RBC % (auto) 0.0 PT INR APTT Sodium Potassium Chloride Carbon Dioxide Anion Gap BUN Creatinine Estim Creat Clear Calc Estimated GFR POC Glucose 162 H 140 H Random Glucose Calcium Total Bilirubin AST ALT Alkaline Phosphatase Troponin I High Sens Total Protein Albumin Stool Occult Blood Blood Type Antibody Screen 11/28/22 05:43 WBC RBC Hgb Hct MCV MCH MCHC RDW Plt Count MPV Immature Gran % (Auto) Neut % (Auto) Lymph % (Auto) [place] % (Auto) Eos % (Auto) Baso % (Auto) Lymph # (Auto) [place] # (Auto) Eos # (Auto) Baso # (Auto) Abs Immat Gran (auto) Absolute Neuts (auto) Absolute Nucleated RBC Nucleated RBC % (auto) PT INR APTT Sodium 135 Potassium 4.6 Chloride 106 Carbon Dioxide 21 L Anion Gap 13 BUN 24 H Creatinine 0.80 Estim Creat Clear Calc 145.8 Estimated GFR > 60 POC Glucose Random Glucose 153 H Calcium 8.3 L D Total Bilirubin 5.4 H AST 35 ALT 21 Alkaline Phosphatase 194 H Troponin I High Sens Total Protein 5.9 L Albumin 2.5 L Stool Occult Blood Blood Type Antibody Screen Narrative Narrative: Date of Service: 11/27/22 Procedure(s): ECG 12 lead EKG Vent. Rate : 134 BPM ? ? Atrial Rate : 134 BPM ?? P-R Int : 150 ms? QRS Dur : 074 ms ? ? QT Int : 308 ms ? ? ? P-R-T Axes : 049 035 060 degrees ?? QTc Int : 459 ms ? Sinus tachycardia Otherwise normal ECG When compared with ECG of 27-NOV-2022 07:18, No significant change was found Airway Mallampati Class: IV Neck ROM: Full Loose/Missing/Broken Teeth: Yes (extremely poor dentition ) Assessment and Plan Assessment Anesthesia Assessment: Anesthesia Plan Discussed and Chart Reviewed Final Anesthetic Review Family History of Problems with Anesthesia: No History of Problems with Anesthesia: No NPO: Yes ASA Class: IV and Emergency Final Preanesthetic Review: Meds/Allgs Chart Reviewed, Consent Obtained/Reviewed and Anes Risks/Benef Reviewed Patient Risk: High Procedure Risk: Intermediate Anesthetic Plan Anesthetic Plan: GA Disposition: Inp. Admit - [facility]
[2022-11-28 09:48] LABS: Glucose, Whole Blood 144 mg/dL (60-115)
--- NOTE | 2022-11-28 10:04 | MHC.SHP ---
Pre-Procedural Eval Section A Date of Service: 11/28/22 The patient is an INPATIENT: Yes The History & Physical has been completed within 30 days and I have reviewed it.: Yes Section B Chief Complaint: GI bleed Allergies: Allergies Allergy/AdvReac Type Severity Reaction Status Date / Time No Known Drug Allergies Allergy Mild NONE Verified 10/27/22 11:27 [NO KNOWN DRUG ALLERGIES] Plan Diagnosis/Plan: Unchanged I have reviewed the history and physical and performed a pertinent physical examination on my patient. No changes have occurred unless specified. emergent --ongoing blood loss --EGD today Time Spent With Patient Time: Total time managing care of this patient today ____ minutes.
--- NOTE | 2022-11-28 10:13 | PC.NURSE ---
Dr. Mitchell from IR was at patient bedside and received consent for paracentesis scheduled later today. Educated patient about procedure and post procedure.
--- NOTE | 2022-11-28 10:14 | PC.NURSE ---
Patient had two patent IVs from ER with medications on pumps running. Mary Beth Woods RN inserted third IV site in SSS for EGD.
--- NOTE | 2022-11-28 10:21 | MHC.CM.PN ---
Patient transferred to same day surgery before being seen by case management. Will attempt to see again. Continue to monitor for d/c needs.
--- NOTE | 2022-11-28 10:59 | PC.NURSE ---
Third IV line inserted in SSS is located in right hand, not right forearm as previously documented. Edited in computer.
--- NOTE | 2022-11-28 11:37 | W.PM.OPN ---
Operative Note Operative Note Date of Service: 11/28/22 Narrative: Procedure Description: EGD Indication: Acute blood loss anemia Anesthesia: General anesthesia FLEXIBLE TRANSORAL UPPER GASTROINTESTINAL ENDOSCOPY UPPER ENDOSCOPY Consent: Indications for the procedure and potential complications of bleeding, perforation, reaction to medications and missed diagnosis were discussed with the patient and informed consent was obtained. Instrument: Olympus GIF H 190 J mid size upper endoscope Monitoring: Vital signs and clinical assessment, continuous EKG monitoring, Pulse oximetry, Carbon Dioxide monitoring and blood pressure monitoring were done throughout the procedure. Procedure: The patient was placed in the supine position and pre-procedure medications were administered and a bite block was placed. The endoscope was inserted into the mouth and advanced under direct vision to the third part of duodenum. A careful inspection was made as the upper endoscope was withdrawn including a retroflexed examination of the proximal stomach; Findings and interventions are described below. Findings: Larynx:normal Esophagus: GE junction at 45 cm, diaphragm hiatus at 45 cm, x 3 large cords of esophageal varices with x 2 white nipple alvarado noted and red alvarado on the varices. during the procedure one of the areas started bleeding and the scope was immediately withdrawn and 4 bands deployed with cessation of bleeding. Hemospray was then applied for extra measure. Stomach: Patchy gastric erythema with mosaic pattern consistent with portal hypertensive gastropathy. Grade 2 flap valve on retroflexed examination of the cardia. no gastric varices seen. Duodenum: Normal bulb and descending duodenum, Intervention: esophageal banding and hemospray with control of bleeding Impression/Findings: acute blood loss anemia from bleeding varices with high risk stigmata PLAN: cont with octreotide for 72 hrs high dose PPI, BID carafate 1 g BID from tomorrow ceftriaxone 1 g for 5 d to prevent SBP can use standard dose statin to reduce portal pressures and carvedilol before d/c if BP allows consider referral for o/p TIPS, if he has further bout of bleeding as inpatient will need transfer to tertiary center for emergent TIPS NPO for next 24 hr except ice chips
--- NOTE | 2022-11-28 15:01 | HO.PM.IMPN ---
Subjective Subjective Date of Service: 11/28/22 Review of Systems Follow up GI bleed Physical Exam Vital Signs: Vital Signs: Last Vital Signs Temp 98.9 F 11/28/22 11:50 Pulse 117 H 11/28/22 12:05 Resp 22 H 11/28/22 12:05 BP 116/72 11/28/22 12:05 Pulse Ox 97 11/28/22 12:05 O2 Del Method Shovel Mask 11/28/22 12:05 O2 Flow Rate 6 11/28/22 12:05 BMI result Body Mass Index 29.6 Appearing in no acute distress lung sounds are clear to auscultation heart regular rate rhythm, clear S1, S2 positive bowel sounds, abdomen is soft, nontender neuro patient is alert x3, no focal deficits Objective Data Active Medications Acetaminophen (Acetaminophen Supp 650 Mg Supp.Rect) 650 mg [place] Q6H PRN PRN Reason: Pain, Mild (Pain Scale 1-3) Acetaminophen (Acetaminophen 325 Mg Tablet) 650 mg PO Q6H PRN PRN Reason: Pain, Mild (Pain Scale 1-3) Glucose (Glucose Gel 15 Gm Gel..Gram.) 15 gm PO Q15M PRN; Protocol PRN Reason: per Hypoglycemia Standing Ord. Sodium Chloride (Ns) 1,000 mls @ 100 mls/hr IVCONT .Q10H [facility] Last Admin: 11/28/22 08:16 Dose: 100 mls/hr Documented By: VIVIEN Ceftriaxone Sodium 1 gm/ (Sodium Chloride) 50 mls @ 100 mls/hr IV Q24H [facility] Last Infusion: 11/28/22 00:11 Dose: 0 mls/hr Documented By: MAUREEN Dextrose (D10) 250 mls @ 750 mls/hr IV Q15M PRN; Protocol PRN Reason: per Hypoglycemia Standing Ord. Thiamine HCl 100 mg/ Sodium (Chloride) 101 mls @ 202 mls/hr IV DAILY [facility] Last Infusion: 11/27/22 22:40 Dose: 0 mls/hr Documented By: MAUREEN Folic Acid 1 mg/ Sodium (Chloride) 50.2 mls @ 100.4 mls/hr IV DAILY [facility] Last Admin: 11/28/22 08:15 Dose: 100 mls/hr Documented By: VIVIEN Octreotide Acetate 500 mcg/ (Sodium Chloride) 501 mls @ 50.1 mls/hr IVCONT .Q10H [facility] Last Admin: 11/28/22 08:17 Dose: 50 mcg/hr, 50.1 mls/hr Documented By: VIVIEN Pantoprazole Sodium 80 mg/ (Sodium Chloride) 100 mls @ 10 mls/hr IV .Q10H [facility] Stop: 11/28/22 17:59 Last Admin: 11/28/22 08:46 Dose: 8 mg/hr, 10 mls/hr Documented By: VIVIEN Insulin Human Lispro (Insulin Lispro 100 Unit/Ml 3 Ml Vial) 0 unit SUBCUT Q6H [facility]; Protocol Last Admin: 11/28/22 05:41 Dose: Not Given Documented By: MAUREEN Non-Admin Reason: No Insulin Coverage Melatonin (Melatonin 3 Mg Tablet) 6 mg PO BEDTIME PRN PRN Reason: Insomnia Ondansetron HCl (Ondansetron Hcl 4 Mg/2 Ml Vial) 4 mg IVPUSH Q8H PRN PRN Reason: Nausea and Vomiting Pharmacy Consult (Consult Rx Perform Med Rec) 1 each MISCELLANE ONCE PRN PRN Reason: Consult order Sodium Chloride (0.9 % Sodium Chloride Flush 3 Ml Syringe) 3 ml IVFLUSH QSHIFT [facility] Last Admin: 11/28/22 08:32 Dose: Not Given Documented By: VIVIEN Non-Admin Reason: continuous infusions running Labs 11/28/22 05:43 11/28/22 05:43 Labs: Laboratory Results - last 24 hr 11/27/22 11/27/22 11/27/22 19:18 19:18 19:18 MCV 100.6 H MCH 33.3 H MCHC 33.1 RDW 13.0 Plt Count 228 D MPV 9.2 L Immature Gran % (Auto) 1.2 H Neut % (Auto) 67.8 Lymph % (Auto) 16.0 L [place] % (Auto) 11.1 H Eos % (Auto) 2.1 Baso % (Auto) 1.8 Lymph # (Auto) 1.8 [place] # (Auto) 1.3 H Eos # (Auto) 0.2 Baso # (Auto) 0.2 Abs Immat Gran (auto) 0.14 H Absolute Neuts (auto) 7.7 Absolute Nucleated RBC 0.000 Nucleated RBC % (auto) 0.0 PT 15.6 H INR 1.3 H APTT 30.3 Anion Gap 16 Estim Creat Clear Calc 119.0 Estimated GFR > 60 POC Glucose Random Glucose 144 H Calcium 8.9 Total Bilirubin 6.7 H AST 43 H ALT 27 Alkaline Phosphatase 262 H Troponin I High Sens Total Protein 6.8 Albumin 2.7 L Stool Occult Blood Blood Type Antibody Screen Crossmatch 11/27/22 11/27/22 11/27/22 19:18 19:18 19:18 MCV MCH MCHC RDW Plt Count MPV Immature Gran % (Auto) Neut % (Auto) Lymph % (Auto) [place] % (Auto) Eos % (Auto) Baso % (Auto) Lymph # (Auto) [place] # (Auto) Eos # (Auto) Baso # (Auto) Abs Immat Gran (auto) Absolute Neuts (auto) Absolute Nucleated RBC Nucleated RBC % (auto) PT INR APTT Anion Gap Estim Creat Clear Calc Estimated GFR POC Glucose Random Glucose Calcium Total Bilirubin AST ALT Alkaline Phosphatase Troponin I High Sens < 2.7 Total Protein Albumin Stool Occult Blood POSITIVE Blood Type A Positive Antibody Screen NEGATIVE Crossmatch See Detail 11/28/22 11/28/22 11/28/22 00:01 05:23 05:43 MCV 99.3 H MCH 33.1 H MCHC 33.3 RDW 12.8 Plt Count 163 D MPV 9.2 L Immature Gran % (Auto) 0.9 H Neut % (Auto) 70.7 Lymph % (Auto) 14.6 L [place] % (Auto) 11.2 H Eos % (Auto) 1.5 Baso % (Auto) 1.1 Lymph # (Auto) 1.4 [place] # (Auto) 1.0 Eos # (Auto) 0.1 Baso # (Auto) 0.1 Abs Immat Gran (auto) 0.08 H Absolute Neuts (auto) 6.6 Absolute Nucleated RBC 0.000 Nucleated RBC % (auto) 0.0 PT INR APTT Anion Gap Estim Creat Clear Calc Estimated GFR POC Glucose 162 H 140 H Random Glucose Calcium Total Bilirubin AST ALT Alkaline Phosphatase Troponin I High Sens Total Protein Albumin Stool Occult Blood Blood Type Antibody Screen Crossmatch 11/28/22 11/28/22 05:43 09:36 MCV MCH MCHC RDW Plt Count MPV Immature Gran % (Auto) Neut % (Auto) Lymph % (Auto) [place] % (Auto) Eos % (Auto) Baso % (Auto) Lymph # (Auto) [place] # (Auto) Eos # (Auto) Baso # (Auto) Abs Immat Gran (auto) Absolute Neuts (auto) Absolute Nucleated RBC Nucleated RBC % (auto) PT INR APTT Anion Gap 13 Estim Creat Clear Calc 145.8 Estimated GFR > 60 POC Glucose 144 H Random Glucose 153 H Calcium 8.3 L D Total Bilirubin 5.4 H AST 35 ALT 21 Alkaline Phosphatase 194 H Troponin I High Sens Total Protein 5.9 L Albumin 2.5 L Stool Occult Blood Blood Type Antibody Screen Crossmatch Assessment and Plan (1) GI (gastrointestinal bleed): Status: Acute Plan This is a 57-year-old male with pertinent history of alcoholic liver cirrhosis with esophageal with varices, insulin-dependent diabetes mellitus, mood disorder, gastroesophageal reflux disease who presents to the emergency department for evaluation of GI bleed. Acute blood loss anemia from GI bleed in a patient with decompensated alcoholic liver cirrhosis with history of esophageal varices.? s/p IV fluids pos stool occult tx PRBC for HH <8, HH now 9.2/27.6 paracentesis s/p EGD> continue high dose PPI, Octreotide, 1gm carafate, Rocephin 1gm for 5 days prophylactically for SBP, if further bleeding consider tx to tertiary facility for emergent TIPS insulin-dependent diabetes mellitus.? continue ss lantus alcohol use disorder.? Monitor CIWA.? Continue thiamine and folic acid mood disorder.? Resume home mood stabilizers once patient no longer NPO DVT prophylaxis:? SCDs Attending Dr. Lee continue hospital stay for close monitoring of hemodynamics.? Specialist consult pending Time Spent With Patient Time: Total time managing care of this patient today ____ minutes. Quality Stroke Does the patient have a stroke diagnosis?: No VTE Prior VTE?: No VTE Risk Level:: Medical - moderate - high VTE Device Contraindication: N/A - Device Ordered VTE Drug Contraindication: Treatment Not Indicated
[2022-11-28] MEDS: Lidocaine HCl 1 % MPF 5 ML VIAL SUBCUT (16:44)
[2022-11-28 16:46] LABS: Glucose, Whole Blood 141 mg/dL (60-115)
[2022-11-28 17:14] LABS: MN% 87.8 %; PMN% 12.2 %; RBC Peritoneal Fluid 0.002 X10*6/uL; WBC Peritoneal Fluid 0.443 X10*3/uL
[2022-11-28 18:28] LABS: BF Shift QC OK YES
[2022-11-28 19:25] LABS: Glucose, Whole Blood 143 mg/dL (60-115)
[2022-11-28 19:38] LABS: Albumin Peritoneal Fluid 0.8 GM/DL; Glucose Peritoneal Fluid 142 MG/DL; Total Protein Peritoneal Fluid 1.6 GM/DL
[2022-11-28] MEDS: cefTRIAXone sodium 1 GM in 0.9 % Sodium Chloride 50 ML IV (22:41)
[2022-11-29] VITALS: BP 120/64; PULSE 110; RESP 20; TEMP 37.4; O2SAT 92
[2022-11-29 03:20] LABS: Glucose, Whole Blood 121 mg/dL (60-115)
[2022-11-29 03:25] VITALS: BP 123/72; PULSE 109; RESP 18; TEMP 36.6; O2SAT 93
--- NOTE | 2022-11-29 05:15 | PC.NURSE ---
Pt requested if he can have ice chips, also noted that pt has po meds scheduled, Dr. Sultana was notified, allowed ice chips but not po meds, pt was instructed.
[2022-11-29] MEDS: Pantoprazole Sodium 40 MG/10 ML VIAL IVPUSH ×2 (05:45→15:48)
[2022-11-29] MEDS: 0.9 % Sodium Chloride 1,000 ML 100 ML IVCONT (05:48)
[2022-11-29] MEDS: Octreotide Acetate 500 MCG in 0.9 % Sodium Chloride 500 ML 50.1 MCG IVCONT ×2 (05:48→14:14)
[2022-11-29 07:31] VITALS: BP 116/74; PULSE 103; RESP 20; TEMP 36.9; O2SAT 94
[2022-11-29 11:07] LABS: Glucose, Whole Blood 147 mg/dL (60-115)
[2022-11-29 11:23] VITALS: BP 127/74; PULSE 99; RESP 20; TEMP 36.6; O2SAT 97
[2022-11-29] MEDS: rifAXIMin 550 MG TABLET PO ×2 (11:45→21:04)
[2022-11-29] MEDS: Thiamine HCL 100 MG TABLET PO (11:45)
[2022-11-29] MEDS: buPROPion HCl XL 300 MG TAB.ER.24H PO (11:45)
[2022-11-29] MEDS: Sucralfate 1 GM TABLET PO (11:45)
[2022-11-29] MEDS: Furosemide 40 MG TABLET 120 MG PO (11:45)
[2022-11-29] MEDS: Spironolactone 25 MG TABLET 300 MG PO (11:45)
[2022-11-29] MEDS: Lipase/Prot/Amylase 24/76/120K 1 CAP CAPSULE.DR PO ×3 (11:46→21:04)
[2022-11-29] MEDS: Folic Acid 1 MG TABLET PO (11:46)
[2022-11-29] MEDS: 0.9 % Sodium Chloride Flush 3 ML SYRINGE IVFLUSH ×2 (11:47→15:48)
[2022-11-29] MEDS: Insulin Glargine,Hum.rec.anlog 100 UNIT/ML 10 ML VIAL 30 UNIT SUBCUT (11:48)
--- NOTE | 2022-11-29 12:17 | MHC.CM.PN ---
Pt admitted with GI bleed. Pt lives with a friend, had no previous services/DME. Pt states his sister or friend can transport. HCP on file. D/C plan to return home self-care when medically cleared. PCP: Martin Griffin vax: x 3
--- NOTE | 2022-11-29 14:38 | HO.POSTANES ---
Post Anesthesia Evaluation Post Anesthesia Evaluation Date of Service: 11/29/22 Vital Signs: Vital Signs Temp Pulse Resp BP Pulse Ox O2 Del Method 11/29/22 11:23 97.9 F 99 20 127/74 97 Room Air 11/29/22 07:31 98.5 F 103 H 20 116/74 94 Room Air 11/29/22 03:25 97.8 F 109 H 18 123/72 93 Room Air Anesthesia: General Endotracheal-GETA Mental Status: Awake Pain Control: Satisfactory Nausea/Vomiting: None Hydration: Adequate Anesthesia-Related Issues: No Anes. Related Issues
--- NOTE | 2022-11-29 14:52 | HO.PM.IMPN ---
Subjective Subjective Date of Service: 11/29/22 Interval History: No acute issues post EGD. Results noted. Ascitic fluid with greater than 450 white blood cells Review of Systems Denies chest pain Denies shortness of breath Denies nausea vomiting diarrhea Denies fever chills Physical Exam Vital Signs: Vital Signs: Last Vital Signs Temp 97.9 F 11/29/22 11:23 Pulse 99 11/29/22 11:23 Resp 20 11/29/22 11:23 BP 127/74 11/29/22 11:23 Pulse Ox 97 11/29/22 11:23 O2 Del Method Room Air 11/29/22 11:23 O2 Flow Rate 2 11/28/22 15:00 BMI result Body Mass Index 29.6 Const: Other: Awake alert no acute distress Resp: Other: Clear to auscultation bilaterally no rales rhonchi or wheezes Cardio: Other: No S4; positive S1-S2; no S3 murmurs rubs or gallops GI: Other: Obese soft post paracentesis Neuro: Other: Cranial nerves 2-12 grossly intact as tested. Motor is 5/5 all extremities sensation is intact cognition appropriate Extrem: Other: No edema bilaterally Objective Data Active Medications Acetaminophen (Acetaminophen Supp 650 Mg Supp.Rect) 650 mg [place] Q6H PRN PRN Reason: Pain, Mild (Pain Scale 1-3) Acetaminophen (Acetaminophen 325 Mg Tablet) 650 mg PO Q6H PRN PRN Reason: Pain, Mild (Pain Scale 1-3) Lipase/Protease/Amylase (Lipase/Prot/Amylase 24/76/120k 1 Cap Capsule.Dr) 1 cap PO TID [facility] Last Admin: 11/29/22 14:17 Dose: 1 cap Documented By: GLORIA Bupropion HCl (Bupropion Hcl Xl 300 Mg Tab.Er.24h) 300 mg PO DAILY [facility] Last Admin: 11/29/22 11:45 Dose: 300 mg Documented By: GLORIA Folic Acid (Folic Acid 1 Mg Tablet) 1 mg PO DAILY [facility] Last Admin: 11/29/22 11:46 Dose: 1 mg Documented By: GLORIA Furosemide (Furosemide 40 Mg Tablet) 120 mg PO DAILY [facility]; Protocol Last Admin: 11/29/22 11:45 Dose: 120 mg Documented By: GLORIA Glucose (Glucose Gel 15 Gm Gel..Gram.) 15 gm PO Q15M PRN; Protocol PRN Reason: per Hypoglycemia Standing Ord. Sodium Chloride (Ns) 1,000 mls @ 100 mls/hr IVCONT .Q10H [facility] Last Admin: 11/29/22 14:17 Dose: Not Given Documented By: GLORIA Non-Admin Reason: IV Running Ceftriaxone Sodium 1 gm/ (Sodium Chloride) 50 mls @ 100 mls/hr IV Q24H RYAN Stop: 12/01/22 21:59 Last Infusion: 11/28/22 23:39 Dose: 0 mls/hr Documented By: CASTILM Dextrose (D10) 250 mls @ 750 mls/hr IV Q15M PRN; Protocol PRN Reason: per Hypoglycemia Standing Ord. Thiamine HCl 100 mg/ Sodium (Chloride) 101 mls @ 202 mls/hr IV DAILY [facility] Last Admin: 11/29/22 12:43 Dose: Not Given Documented By: GLORIA Non-Admin Reason: Administered by Alternate Route Folic Acid 1 mg/ Sodium (Chloride) 50.2 mls @ 100.4 mls/hr IV DAILY [facility] Last Admin: 11/29/22 11:48 Dose: Not Given Documented By: GLORIA Non-Admin Reason: Administered by Alternate Route Octreotide Acetate 500 mcg/ (Sodium Chloride) 501 mls @ 50.1 mls/hr IVCONT .Q10H [facility] Last Admin: 11/29/22 14:14 Dose: 50 mcg/hr, 50.1 mls/hr Documented By: GLORIA Insulin Glargine (Insulin Glargine,Hum.Rec.Anlog 100 Unit/Ml 10 Ml Vial) 30 unit SUBCUT DAILY [facility] Last Admin: 11/29/22 11:48 Dose: 30 unit Documented By: GLORIA Insulin Human Lispro (Insulin Lispro 100 Unit/Ml 3 Ml Vial) 0 unit SUBCUT Q6H [facility]; Protocol Last Admin: 11/29/22 11:47 Dose: Not Given Documented By: GLORIA Non-Admin Reason: No Insulin Coverage Lorazepam (Lorazepam 0.5 Mg Tablet) 0.5 mg PO DAILY PRN PRN Reason: anxiety attack Melatonin (Melatonin 3 Mg Tablet) 6 mg PO BEDTIME PRN PRN Reason: Insomnia Ondansetron HCl (Ondansetron Hcl 4 Mg/2 Ml Vial) 4 mg IVPUSH Q8H PRN PRN Reason: Nausea and Vomiting Pantoprazole Sodium (Pantoprazole Sodium 40 Mg/10 Ml Vial) 40 mg IVPUSH BID@0630,1630 [facility] Last Admin: 11/29/22 05:45 Dose: 40 mg Documented By: CLARITZA Pharmacy Consult (Consult Rx Perform Med Rec) 1 each MISCELLANE ONCE PRN PRN Reason: Consult order Rifaximin (Rifaximin 550 Mg Tablet) 550 mg PO BID [facility] Last Admin: 11/29/22 11:45 Dose: 550 mg Documented By: GLORIA Sodium Chloride (0.9 % Sodium Chloride Flush 3 Ml Syringe) 3 ml IVFLUSH QSHIFT [facility] Last Admin: 11/29/22 11:47 Dose: 3 ml Documented By: GLORIA Spironolactone (Spironolactone 25 Mg Tablet) 300 mg PO DAILY [facility]; Protocol Last Admin: 11/29/22 11:45 Dose: 300 mg Documented By: GLORIA Sucralfate (Sucralfate 1 Gm Tablet) 1 gm PO DAILY [facility] Last Admin: 11/29/22 11:45 Dose: 1 gm Documented By: GLORIA Thiamine HCl (Thiamine Hcl 100 Mg Tablet) 100 mg PO DAILY [facility] Last Admin: 11/29/22 11:45 Dose: 100 mg Documented By: GLORIA Labs 11/28/22 05:43 11/28/22 05:43 Labs: Laboratory Results - last 24 hr 11/28/22 11/28/22 11/28/22 15:46 15:46 15:46 POC Glucose Peritoneal pH 7.60 Peritoneal WBC 0.443 Peritoneal RBC 0.002 Peritoneal Tot Protein 1.6 Peritoneal Albumin 0.8 Peritoneal Glucose 142 11/28/22 11/28/22 11/29/22 16:43 19:22 03:15 POC Glucose 141 H 143 H 121 H Peritoneal pH Peritoneal WBC Peritoneal RBC Peritoneal Tot Protein Peritoneal Albumin Peritoneal Glucose 11/29/22 11:03 POC Glucose 147 H Peritoneal pH Peritoneal WBC Peritoneal RBC Peritoneal Tot Protein Peritoneal Albumin Peritoneal Glucose Microbiology Microbiology Results: Microbiology 11/28/22 15:46 Gram Stain - Final Ascites Fluid Anaerobic Culture - Preliminary Culture in progress. Body Fluid Culture - Preliminary Culture in progress. 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 1.Acute GI bleed secondary to esophageal varices (EGD notes reviewed) -will continue octreotide for 72 hours post this EGD (12/02) -high-dose IV PPI b.i.d. for the next 72 hours as well -paracentesis fluid noted.. Ceftriaxone 1 g x5 days (07/30) -start clear liquids today 2.Insulin-dependent diabetes mellitus -acceptable control off insulin -continue lispro correctional scale -adjust as clinically indicated 3.Alcohol use disorder -CIWA 0 -continue to follow SCDs Full code Will require ongoing hospitalization for IV octreotide control bleeding from esophageal varices Time Spent With Patient Time: Total time managing care of this patient today ____ minutes. Quality Stroke Does the patient have a stroke diagnosis?: No VTE Prior VTE?: No VTE Risk Level:: Medical - moderate - high VTE Device Contraindication: N/A - Device Ordered VTE Drug Contraindication: Treatment Not Indicated
[2022-11-29 16:00] VITALS: BP 114/79; PULSE 89; RESP 18; TEMP 36.7; O2SAT 97
[2022-11-29 16:03] LABS: Glucose, Whole Blood 179 mg/dL (60-115)
[2022-11-29] MEDS: Insulin Lispro 100 UNIT/ML 3 ML VIAL SUBCUT (16:41)
[2022-11-29 19:28] VITALS: BP 127/81; PULSE 101; RESP 18; TEMP 36.6; O2SAT 97
[2022-11-29 20:12] LABS: Glucose, Whole Blood 75 mg/dL (60-115)
[2022-11-29 20:12] LABS: Glucose, Whole Blood 81 mg/dL (60-115)
[2022-11-29] MEDS: cefTRIAXone sodium 1 GM in 0.9 % Sodium Chloride 50 ML IV (21:04)
[2022-11-29 21:12] LABS: Glucose, Whole Blood 202 mg/dL (60-115)
[2022-11-30] VITALS (7 sets, daily range): BP systolic 107–142; BP diastolic 53–87; PULSE 93–108; RESP 18–20; TEMP 37–37.6; O2SAT 90–98
[2022-11-30] MEDS: Octreotide Acetate 500 MCG in 0.9 % Sodium Chloride 500 ML 50.1 MCG IVCONT ×3 (00:11→21:42)
[2022-11-30] MEDS: 0.9 % Sodium Chloride Flush 3 ML SYRINGE IVFLUSH ×2 (00:12→17:20)
[2022-11-30 04:35] LABS: Glucose, Whole Blood 119 mg/dL (60-115)
[2022-11-30 06:50] LABS: MANUAL DIFF FLAG NO
[2022-11-30 06:54] LABS: Basophils Absolute Auto 0.1 X10*3/uL (0.0-0.2); Basophils Percent Auto 1.7 % (0-2); Eosinophils Absolute Auto 0.3 X10*3/uL (0.0-0.4); Eosinophils Percent Auto 4.3 % (0-4); Hematocrit 23.6 % (42.0-52.0); Hemoglobin 7.7 g/dl (14.0-18.0); Imm Gran Abs Auto 0.07 X10*3/uL (0.00-0.03); Imm Gran Pct Auto 1.2 % (0.0-0.4); Lymphocytes Percent Auto 15.7 % (20-40); Mean Corpuscular HGB Conc 32.6 g/dl (31.0-36.0); Mean Corpuscular Hemoglobin 32.9 pg (27.0-33.0); Mean Corpuscular Volume 100.9 fL (80.0-98.0); Mean Platelet Volume 8.8 fL (9.4-12.4); Monocytes Absolute Auto 0.8 X10*3/uL (0.1-1.2); Monocytes Percent Auto 13.1 % (2-11); Neutrophils Absolute Auto 3.9 x10*3/uL (2.0-8.3); Platelet Count 153 X10*3/uL (160-400); Red Blood Count 2.34 X10*6/uL (4.60-5.80); Red Cell Distribution Width 13.4 % (11.0-16.0); White Blood Count 6.1 X10*3/uL (4.8-10.8)
[2022-11-30] MEDS: Pantoprazole Sodium 40 MG/10 ML VIAL IVPUSH ×2 (07:06→17:20)
[2022-11-30 07:07] LABS: Alanine Aminotransferase 17 U/L (0-40); Albumin Level 2.4 g/dL (3.5-5.0); Alkaline Phosphatase 169 U/L (39-117); Anion Gap 10 (12-20); Aspartate Amino Transferase 35 U/L (5-37); Bilirubin Total 3.4 mg/dL (0.0-1.0); Blood Urea Nitrogen 13 mg/dL (9-16); Carbon Dioxide 24 mmol/L (22-29); Chloride 106 mmol/L (96-108); Estimated Glomerular Filt Rate > 60; Glucose Fasting 112 mg/dL (60-99); Potassium 3.9 mmol/L (3.3-5.1); Sodium 136 mmol/L (135-145); Total Protein 5.5 g/dL (6.5-8.0)
[2022-11-30] MEDS: Spironolactone 25 MG TABLET 300 MG PO (08:38)
[2022-11-30] MEDS: Thiamine HCL 100 MG TABLET PO (08:39)
[2022-11-30] MEDS: buPROPion HCl XL 300 MG TAB.ER.24H PO (08:39)
[2022-11-30] MEDS: rifAXIMin 550 MG TABLET PO ×2 (08:39→21:07)
[2022-11-30] MEDS: Furosemide 40 MG TABLET 120 MG PO (08:39)
[2022-11-30] MEDS: Lipase/Prot/Amylase 24/76/120K 1 CAP CAPSULE.DR PO ×3 (08:39→21:07)
[2022-11-30] MEDS: Insulin Glargine,Hum.rec.anlog 100 UNIT/ML 10 ML VIAL 30 UNIT SUBCUT (08:39)
[2022-11-30] MEDS: Sucralfate 1 GM TABLET PO (08:39)
[2022-11-30] MEDS: Folic Acid 1 MG TABLET PO (08:39)
[2022-11-30 10:06] LABS: Glucose, Whole Blood 186 mg/dL (60-115)
[2022-11-30] MEDS: oxyCODONE HCl Immed Release 5 MG TABLET PO ×3 (10:29→21:19)
[2022-11-30] MEDS: Insulin Lispro 100 UNIT/ML 3 ML VIAL SUBCUT (10:29)
--- NOTE | 2022-11-30 11:27 | P.PNGI_ITS ---
Subjective Subjective Date of Service: 11/30/22 Interval History: Stool is starting to turn brown no abdominal pain no nausea or vomiting he feels hungry Critical Care Time (minutes): 0 Physical Exam Vital Signs: Vital Signs: Last Vital Signs Temp 98.7 F 11/30/22 07:36 Pulse 98 11/30/22 07:36 Resp 20 11/30/22 07:36 BP 107/69 11/30/22 07:36 Pulse Ox 95 11/30/22 07:36 O2 Del Method Room Air 11/30/22 07:36 O2 Flow Rate 2 11/28/22 15:00 BMI result Body Mass Index 29.6 EXAM: GENERAL: The patient is slightyl jaundiced VITAL SIGNS:see workflow HEENT: Nonicteric sclerae, PERRLA, EOMI. Oropharynx clear. Moist mucous membranes. Conjunctivae appear well perfused. No thyroid mass. CHEST: Chest wall is nontender. HEART: Regular rate and rhythm without murmurs. LUNGS: Clear to auscultation bilaterally. ABDOMEN: Soft, positive bowel sounds, nontender, no organomegaly.no flank tenderness, distended with small umbilical hernia SKIN: spider naevi noted NEUROLOGIC: Cranial nerves II-XII intact without motor/sensory deficit. Objective Data Labs 11/30/22 06:18 11/30/22 06:18 Labs: Laboratory Results - last 24 hr 11/29/22 11/29/22 11/29/22 15:45 19:54 19:56 WBC RBC Hgb Hct MCV MCH MCHC RDW Plt Count MPV Immature Gran % (Auto) Neut % (Auto) Lymph % (Auto) [place] % (Auto) Eos % (Auto) Baso % (Auto) Lymph # (Auto) [place] # (Auto) Eos # (Auto) Baso # (Auto) Abs Immat Gran (auto) Absolute Neuts (auto) Absolute Nucleated RBC Nucleated RBC % (auto) Sodium Potassium Chloride Carbon Dioxide Anion Gap BUN Creatinine Estim Creat Clear Calc Estimated GFR POC Glucose 179 H 75 81 Fasting Glucose Calcium Total Bilirubin AST ALT Alkaline Phosphatase Total Protein Albumin 11/29/22 11/30/22 11/30/22 21:03 04:29 06:18 WBC 6.1 RBC 2.34 L Hgb 7.7 L Hct 23.6 L MCV 100.9 H MCH 32.9 MCHC 32.6 RDW 13.4 Plt Count 153 L MPV 8.8 L Immature Gran % (Auto) 1.2 H Neut % (Auto) 64.0 Lymph % (Auto) 15.7 L [place] % (Auto) 13.1 H Eos % (Auto) 4.3 H Baso % (Auto) 1.7 Lymph # (Auto) 1.0 L [place] # (Auto) 0.8 Eos # (Auto) 0.3 Baso # (Auto) 0.1 Abs Immat Gran (auto) 0.07 H Absolute Neuts (auto) 3.9 Absolute Nucleated RBC 0.000 Nucleated RBC % (auto) 0.0 Sodium Potassium Chloride Carbon Dioxide Anion Gap BUN Creatinine Estim Creat Clear Calc Estimated GFR POC Glucose 202 H 119 H Fasting Glucose Calcium Total Bilirubin AST ALT Alkaline Phosphatase Total Protein Albumin 11/30/22 11/30/22 06:18 10:02 WBC RBC Hgb Hct MCV MCH MCHC RDW Plt Count MPV Immature Gran % (Auto) Neut % (Auto) Lymph % (Auto) [place] % (Auto) Eos % (Auto) Baso % (Auto) Lymph # (Auto) [place] # (Auto) Eos # (Auto) Baso # (Auto) Abs Immat Gran (auto) Absolute Neuts (auto) Absolute Nucleated RBC Nucleated RBC % (auto) Sodium 136 Potassium 3.9 Chloride 106 Carbon Dioxide 24 Anion Gap 10 L BUN 13 Creatinine 0.81 Estim Creat Clear Calc 144.0 Estimated GFR > 60 POC Glucose 186 H Fasting Glucose 112 H Calcium 8.0 L Total Bilirubin 3.4 H AST 35 ALT 17 Alkaline Phosphatase 169 H Total Protein 5.5 L Albumin 2.4 L Microbiology Microbiology Results: Microbiology 11/28/22 15:46 Ascites Fluid Gram Stain - Final 11/28/22 15:46 Ascites Fluid Anaerobic Culture - Preliminary No growth to date. 11/28/22 15:46 Ascites Fluid Body Fluid Culture - Preliminary No growth to date. Procedures Date of Service Date of Service: 11/30/22 Progress Note: A&P Assessment and plan (1) Esophageal varices: Status: Acute (2) GI bleed: Status: Acute Plan 1/ Acute blood loss anemia due to variceal bleeding with high risk alvarado 2/ Ascites, raised WCC, but no diff on the neutrophils Plan: 1/ can stop octreotide tonight 2/ advance diet 3/ low dose carvedilol and low dose statin 4/ get doppler to r/o portal vein thrombosis 5/ will refer for o/p TIPs assessment 6/ rept EGD 2-3 weeks 7/ complete 5 d of ceftriaxone Time Spent With Patient Time: Total time managing care of this patient today ____ minutes. Quality Stroke Does the patient have a stroke diagnosis?: No VTE Prior VTE?: No VTE Risk Level:: Medical - moderate - high VTE Device Contraindication: N/A - Device Ordered VTE Drug Contraindication: Treatment Not Indicated
--- NOTE | 2022-11-30 13:11 | P.PNIM_ITS ---
Subjective Subjective Date of Service: 11/30/22 Interval History: Feels much better after paracentesis. No active bleeding noted Review of Systems Denies chest pain Denies shortness of breath Denies nausea vomiting diarrhea Denies fever chills Physical Exam Vital Signs: Vital Signs: Last Vital Signs Temp 98.8 F 11/30/22 11:45 Pulse 108 H 11/30/22 11:45 Resp 20 11/30/22 11:45 BP 123/83 11/30/22 11:45 Pulse Ox 96 11/30/22 11:45 O2 Del Method Room Air 11/30/22 11:45 O2 Flow Rate 2 11/28/22 15:00 BMI result Body Mass Index 29.6 Const: Other: Awake alert no acute distress Resp: Other: Clear to auscultation bilaterally no rales rhonchi or wheezes Cardio: Other: No S4; positive S1-S2; no S3 murmurs rubs or gallops GI: Other: Obese soft post paracentesis Neuro: Other: Cranial nerves 2-12 grossly intact as tested. Motor is 5/5 all extremities sensation is intact cognition appropriate Extrem: Other: No edema bilaterally Objective Data Active Medications Acetaminophen (Acetaminophen Supp 650 Mg Supp.Rect) 650 mg [place] Q6H PRN PRN Reason: Pain, Mild (Pain Scale 1-3) Acetaminophen (Acetaminophen 325 Mg Tablet) 650 mg PO Q6H PRN PRN Reason: Pain, Mild (Pain Scale 1-3) Lipase/Protease/Amylase (Lipase/Prot/Amylase 24/76/120k 1 Cap Capsule.Dr) 1 cap PO TID [facility] Last Admin: 11/30/22 08:39 Dose: 1 cap Documented By: NAEEM Bupropion HCl (Bupropion Hcl Xl 300 Mg Tab.Er.24h) 300 mg PO DAILY [facility] Last Admin: 11/30/22 08:39 Dose: 300 mg Documented By: NAEEM Folic Acid (Folic Acid 1 Mg Tablet) 1 mg PO DAILY [facility] Last Admin: 11/30/22 08:39 Dose: 1 mg Documented By: NAEEM Furosemide (Furosemide 40 Mg Tablet) 120 mg PO DAILY [facility]; Protocol Last Admin: 11/30/22 08:39 Dose: 120 mg Documented By: NAEEM Glucose (Glucose Gel 15 Gm Gel..Gram.) 15 gm PO Q15M PRN; Protocol PRN Reason: per Hypoglycemia Standing Ord. Ceftriaxone Sodium 1 gm/ (Sodium Chloride) 50 mls @ 100 mls/hr IV Q24H RYAN Stop: 12/01/22 21:59 Last Infusion: 11/29/22 21:54 Dose: 0 mls/hr Documented By: BERT Dextrose (D10) 250 mls @ 750 mls/hr IV Q15M PRN; Protocol PRN Reason: per Hypoglycemia Standing Ord. Thiamine HCl 100 mg/ Sodium (Chloride) 101 mls @ 202 mls/hr IV DAILY [facility] Last Admin: 11/30/22 08:36 Dose: Not Given Documented By: NAEEM Non-Admin Reason: Administered by Alternate Route Folic Acid 1 mg/ Sodium (Chloride) 50.2 mls @ 100.4 mls/hr IV DAILY [facility] Last Admin: 11/30/22 08:36 Dose: Not Given Documented By: NAEEM Non-Admin Reason: Administered by Alternate Route Octreotide Acetate 500 mcg/ (Sodium Chloride) 501 mls @ 50.1 mls/hr IVCONT .Q10H [facility] Last Admin: 11/30/22 10:30 Dose: 50 mcg/hr, 50.1 mls/hr Documented By: NAEEM Insulin Glargine (Insulin Glargine,Hum.Rec.Anlog 100 Unit/Ml 10 Ml Vial) 30 unit SUBCUT DAILY [facility] Last Admin: 11/30/22 08:39 Dose: 30 unit Documented By: NAEEM Insulin Human Lispro (Insulin Lispro 100 Unit/Ml 3 Ml Vial) 0 unit SUBCUT Q6H [facility]; Protocol Last Admin: 11/30/22 10:29 Dose: 2 unit Documented By: NAEEM Lorazepam (Lorazepam 0.5 Mg Tablet) 0.5 mg PO DAILY PRN PRN Reason: anxiety attack Melatonin (Melatonin 3 Mg Tablet) 6 mg PO BEDTIME PRN PRN Reason: Insomnia Ondansetron HCl (Ondansetron Hcl 4 Mg/2 Ml Vial) 4 mg IVPUSH Q8H PRN PRN Reason: Nausea and Vomiting Oxycodone HCl (Oxycodone Hcl Immed Release 5 Mg Tablet) 5 mg PO Q4H PRN PRN Reason: Pain, Moderate(Pain Scale 4-6) Last Admin: 11/30/22 10:29 Dose: 5 mg Documented By: NAEEM Pantoprazole Sodium (Pantoprazole Sodium 40 Mg/10 Ml Vial) 40 mg IVPUSH BID@0630,1630 [facility] Last Admin: 11/30/22 07:06 Dose: 40 mg Documented By: VIOLETTA Pharmacy Consult (Consult Rx Perform Med Rec) 1 each MISCELLANE ONCE PRN PRN Reason: Consult order Rifaximin (Rifaximin 550 Mg Tablet) 550 mg PO BID [facility] Last Admin: 11/30/22 08:39 Dose: 550 mg Documented By: NAEEM Sodium Chloride (0.9 % Sodium Chloride Flush 3 Ml Syringe) 3 ml IVFLUSH QSHIFT [facility] Last Admin: 11/30/22 08:20 Dose: Not Given Documented By: NAEEM Non-Admin Reason: IV Running Spironolactone (Spironolactone 25 Mg Tablet) 300 mg PO DAILY [facility]; Protocol Last Admin: 11/30/22 08:38 Dose: 300 mg Documented By: NAEEM Sucralfate (Sucralfate 1 Gm Tablet) 1 gm PO DAILY [facility] Last Admin: 11/30/22 08:39 Dose: 1 gm Documented By: NAEEM Thiamine HCl (Thiamine Hcl 100 Mg Tablet) 100 mg PO DAILY [facility] Last Admin: 11/30/22 08:39 Dose: 100 mg Documented By: NAEEM Labs 11/30/22 06:18 11/30/22 06:18 Labs: Laboratory Results - last 24 hr 11/29/22 11/29/22 11/29/22 15:45 19:54 19:56 MCV MCH MCHC RDW Plt Count MPV Immature Gran % (Auto) Neut % (Auto) Lymph % (Auto) [place] % (Auto) Eos % (Auto) Baso % (Auto) Lymph # (Auto) [place] # (Auto) Eos # (Auto) Baso # (Auto) Abs Immat Gran (auto) Absolute Neuts (auto) Absolute Nucleated RBC Nucleated RBC % (auto) Anion Gap Estim Creat Clear Calc Estimated GFR POC Glucose 179 H 75 81 Fasting Glucose Calcium Total Bilirubin AST ALT Alkaline Phosphatase Total Protein Albumin 11/29/22 11/30/22 11/30/22 21:03 04:29 06:18 MCV 100.9 H MCH 32.9 MCHC 32.6 RDW 13.4 Plt Count 153 L MPV 8.8 L Immature Gran % (Auto) 1.2 H Neut % (Auto) 64.0 Lymph % (Auto) 15.7 L [place] % (Auto) 13.1 H Eos % (Auto) 4.3 H Baso % (Auto) 1.7 Lymph # (Auto) 1.0 L [place] # (Auto) 0.8 Eos # (Auto) 0.3 Baso # (Auto) 0.1 Abs Immat Gran (auto) 0.07 H Absolute Neuts (auto) 3.9 Absolute Nucleated RBC 0.000 Nucleated RBC % (auto) 0.0 Anion Gap Estim Creat Clear Calc Estimated GFR POC Glucose 202 H 119 H Fasting Glucose Calcium Total Bilirubin AST ALT Alkaline Phosphatase Total Protein Albumin 11/30/22 11/30/22 06:18 10:02 MCV MCH MCHC RDW Plt Count MPV Immature Gran % (Auto) Neut % (Auto) Lymph % (Auto) [place] % (Auto) Eos % (Auto) Baso % (Auto) Lymph # (Auto) [place] # (Auto) Eos # (Auto) Baso # (Auto) Abs Immat Gran (auto) Absolute Neuts (auto) Absolute Nucleated RBC Nucleated RBC % (auto) Anion Gap 10 L Estim Creat Clear Calc 144.0 Estimated GFR > 60 POC Glucose 186 H Fasting Glucose 112 H Calcium 8.0 L Total Bilirubin 3.4 H AST 35 ALT 17 Alkaline Phosphatase 169 H Total Protein 5.5 L Albumin 2.4 L Microbiology Microbiology Results: Microbiology 11/28/22 15:46 Gram Stain - Final Ascites Fluid Anaerobic Culture - Preliminary No growth to date. Body Fluid Culture - Preliminary No growth to date. 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 1.Acute GI bleed secondary to esophageal varices (EGD notes reviewed) -will continue octreotide ... DC tonight as per GI -high-dose IV PPI b.i.d. for the next 72 hours as well -paracentesis fluid noted.. Ceftriaxone 1 g x5 days (08/27) -start clear liquids today 2.Insulin-dependent diabetes mellitus -acceptable control off insulin -continue lispro correctional scale -adjust as clinically indicated 3.Alcohol use disorder -CIWA 0 -continue to follow SCDs Full code Will require ongoing hospitalization for IV octreotide control bleeding from esophageal varices Time Spent With Patient Time: Total time managing care of this patient today ____ minutes. Quality Stroke Does the patient have a stroke diagnosis?: No VTE Prior VTE?: No VTE Risk Level:: Medical - moderate - high VTE Device Contraindication: N/A - Device Ordered VTE Drug Contraindication: Treatment Not Indicated
[2022-11-30 16:20] LABS: Glucose, Whole Blood 116 mg/dL (60-115)
[2022-11-30 20:28] LABS: Glucose, Whole Blood 119 mg/dL (60-115)
[2022-11-30] MEDS: cefTRIAXone sodium 1 GM in 0.9 % Sodium Chloride 50 ML IV (21:06)
[2022-12-01 04:00] VITALS: BP 118/74; PULSE 18; RESP 18; TEMP 36.4; O2SAT 98
[2022-12-01] MEDS: oxyCODONE HCl Immed Release 5 MG TABLET PO (05:23)
[2022-12-01] MEDS: Pantoprazole Sodium 40 MG/10 ML VIAL IVPUSH (05:25)
[2022-12-01 05:53] LABS: Glucose, Whole Blood 120 mg/dL (60-115)
[2022-12-01 06:51] LABS: MANUAL DIFF FLAG NO
[2022-12-01 06:56] LABS: Basophils Absolute Auto 0.1 X10*3/uL (0.0-0.2); Basophils Percent Auto 1.5 % (0-2); Eosinophils Absolute Auto 0.2 X10*3/uL (0.0-0.4); Eosinophils Percent Auto 4.3 % (0-4); Hematocrit 26.2 % (42.0-52.0); Hemoglobin 8.8 g/dl (14.0-18.0); Imm Gran Abs Auto 0.04 X10*3/uL (0.00-0.03); Imm Gran Pct Auto 0.8 % (0.0-0.4); Lymphocytes Percent Auto 18.6 % (20-40); Mean Corpuscular HGB Conc 33.6 g/dl (31.0-36.0); Mean Corpuscular Hemoglobin 33.7 pg (27.0-33.0); Mean Corpuscular Volume 100.4 fL (80.0-98.0); Mean Platelet Volume 8.6 fL (9.4-12.4); Monocytes Absolute Auto 0.7 X10*3/uL (0.1-1.2); Monocytes Percent Auto 13.1 % (2-11); Neutrophils Absolute Auto 3.3 x10*3/uL (2.0-8.3); Neutrophils Percent Auto 61.7 % (45-73); Platelet Count 166 X10*3/uL (160-400); Red Blood Count 2.61 X10*6/uL (4.60-5.80); Red Cell Distribution Width 13.8 % (11.0-16.0); White Blood Count 5.3 X10*3/uL (4.8-10.8)
[2022-12-01 07:09] VITALS: BP 123/73; PULSE 97; RESP 20; TEMP 36.5; O2SAT 93
[2022-12-01 07:20] LABS: Alanine Aminotransferase 17 U/L (0-40); Albumin Level 2.7 g/dL (3.5-5.0); Alkaline Phosphatase 189 U/L (39-117); Anion Gap 11 (12-20); Aspartate Amino Transferase 37 U/L (5-37); Blood Urea Nitrogen 11 mg/dL (9-16); Calcium 8.1 mg/dL (8.4-10.2); Carbon Dioxide 24 mmol/L (22-29); Chloride 101 mmol/L (96-108); Estimated Glomerular Filt Rate > 60; Glucose Fasting 140 mg/dL (60-99); Potassium 3.5 mmol/L (3.3-5.1); Sodium 132 mmol/L (135-145); Total Protein 6.2 g/dL (6.5-8.0)
[2022-12-01 08:10] LABS: Glucose, Whole Blood 139 mg/dL (60-115)
[2022-12-01] MEDS: Thiamine HCL 100 MG TABLET PO (10:26)
[2022-12-01] MEDS: Thiamine HCL 100 MG in 0.9 % Sodium Chloride 100 ML 202 MG IV (10:26)
[2022-12-01] MEDS: Furosemide 40 MG TABLET 120 MG PO (10:27)
[2022-12-01] MEDS: Spironolactone 25 MG TABLET 300 MG PO (10:27)
[2022-12-01] MEDS: rifAXIMin 550 MG TABLET PO (10:27)
[2022-12-01] MEDS: buPROPion HCl XL 300 MG TAB.ER.24H PO (10:27)
[2022-12-01] MEDS: Sucralfate 1 GM TABLET PO (10:27)
[2022-12-01] MEDS: Lipase/Prot/Amylase 24/76/120K 1 CAP CAPSULE.DR PO (10:27)
[2022-12-01] MEDS: Folic Acid 1 MG TABLET PO (10:27)
[2022-12-01] MEDS: 0.9 % Sodium Chloride Flush 3 ML SYRINGE IVFLUSH (10:28)
[2022-12-01] MEDS: Insulin Glargine,Hum.rec.anlog 100 UNIT/ML 10 ML VIAL 30 UNIT SUBCUT (10:28)
[2022-12-01 10:41] LABS: Glucose, Whole Blood 141 mg/dL (60-115)
[2022-12-01 11:05] VITALS: BP 125/79; PULSE 92; RESP 20; TEMP 36.3; O2SAT 95
--- NOTE | 2022-12-01 11:13 | PM.DS ---
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 Patient states that on the day of presentation, he had 4 episodes of bloody emesis.? Patient also had 2 episodes of hematochezia, nonpainful.? No recent trauma.? He denies fever, chills, abdominal discomfort.? Patient underwent esophageal band ligation by Dr. Graham on 10/26/2022.? Patient denies chest discomfort, palpitations, shortness of breath, changes in urinary habits. Hospital Course Patient admitted to telemetry and started on octreotide drip along with IV pantoprazole. He remained hemodynamically stable and on 11/28/2022 patient underwent an EGD which demonstrate did 3 large cords of esophageal varices with to white nipple markers noted in red alvarado of the varices. There was bleeding during the procedure and the scope was withdrawn 4 bands were deployed. He returned to the floor in stable condition and remained on octreotide for 72 hours. At this time he, he is tolerating a full diet has had no further bleeding. He is medically acceptable for discharge home and follow-up with GI in 2 weeks for repeat EGD Time Spent with Patient Time attestation: Total time managing care of this patient today ____ minutes. Discharge coordination time: Greater than 30 minutes Quality: Safe Use of Opioids Does Pt have an Active Cancer Diagnosis on the Problem List?: No Quality: Stroke Does the patient have a stroke diagnosis?: No Physical Exam Vital Signs: Vital Signs: Last Vital Signs Temp 97.4 F 12/01/22 11:05 Pulse 92 12/01/22 11:05 Resp 20 12/01/22 11:05 BP 125/79 12/01/22 11:05 Pulse Ox 95 12/01/22 11:05 O2 Del Method Room Air 12/01/22 11:05 O2 Flow Rate 2 11/28/22 15:00 BMI result Body Mass Index 29.6 Const: Other: Awake alert no acute distress Resp: Other: Clear to auscultation bilaterally no rales rhonchi or wheezes Cardio: Other: No S4; positive S1-S2; no S3 murmurs rubs or gallops GI: Other: Obese soft post paracentesis Neuro: Other: Cranial nerves 2-12 grossly intact as tested. Motor is 5/5 all extremities sensation is intact cognition appropriate Extrem: Other: No edema bilaterally DS: Data Data Completed and Pending Completed studies during hospitalization [Text1]: Procedures Control Bleeding in Gastrointestinal Tract, Via Natural or Artificial Opening Endoscopic (11/01/21) Detoxification Services for Substance Abuse Treatment (12/06/21) Drainage of Right Pleural Cavity, Percutaneous Approach (12/06/21) Introduction of Mineral-based Topical Hemostatic Agent into Upper GI, Via Natural or Artificial Opening Endoscopic, [employer] (11/01/21) Occlusion of Esophageal Vein with Extraluminal Device, Via Natural or Artificial Opening Endoscopic (11/01/21) Labs on day of discharge: Laboratory Results - last 24 hr 11/30/22 11/30/22 12/01/22 16:17 20:21 05:50 WBC RBC Hgb Hct MCV MCH MCHC RDW Plt Count MPV Immature Gran % (Auto) Neut % (Auto) Lymph % (Auto) [place] % (Auto) Eos % (Auto) Baso % (Auto) Lymph # (Auto) [place] # (Auto) Eos # (Auto) Baso # (Auto) Abs Immat Gran (auto) Absolute Neuts (auto) Absolute Nucleated RBC Nucleated RBC % (auto) Sodium Potassium Chloride Carbon Dioxide Anion Gap BUN Creatinine Estim Creat Clear Calc Estimated GFR POC Glucose 116 H 119 H 120 H Fasting Glucose Calcium Total Bilirubin AST ALT Alkaline Phosphatase Total Protein Albumin 12/01/22 12/01/22 12/01/22 06:25 06:25 08:06 WBC 5.3 RBC 2.61 L Hgb 8.8 L Hct 26.2 L MCV 100.4 H MCH 33.7 H MCHC 33.6 RDW 13.8 Plt Count 166 MPV 8.6 L Immature Gran % (Auto) 0.8 H Neut % (Auto) 61.7 Lymph % (Auto) 18.6 L [place] % (Auto) 13.1 H Eos % (Auto) 4.3 H Baso % (Auto) 1.5 Lymph # (Auto) 1.0 L [place] # (Auto) 0.7 Eos # (Auto) 0.2 Baso # (Auto) 0.1 Abs Immat Gran (auto) 0.04 H Absolute Neuts (auto) 3.3 Absolute Nucleated RBC 0.000 Nucleated RBC % (auto) 0.0 Sodium 132 L Potassium 3.5 Chloride 101 Carbon Dioxide 24 Anion Gap 11 L BUN 11 Creatinine 0.89 Estim Creat Clear Calc 131.0 Estimated GFR > 60 POC Glucose 139 H Fasting Glucose 140 H Calcium 8.1 L Total Bilirubin 3.0 H AST 37 ALT 17 Alkaline Phosphatase 189 H Total Protein 6.2 L Albumin 2.7 L 12/01/22 10:37 WBC RBC Hgb Hct MCV MCH MCHC RDW Plt Count MPV Immature Gran % (Auto) Neut % (Auto) Lymph % (Auto) [place] % (Auto) Eos % (Auto) Baso % (Auto) Lymph # (Auto) [place] # (Auto) Eos # (Auto) Baso # (Auto) Abs Immat Gran (auto) Absolute Neuts (auto) Absolute Nucleated RBC Nucleated RBC % (auto) Sodium Potassium Chloride Carbon Dioxide Anion Gap BUN Creatinine Estim Creat Clear Calc Estimated GFR POC Glucose 141 H Fasting Glucose Calcium Total Bilirubin AST ALT Alkaline Phosphatase Total Protein Albumin Preliminary micro results at discharge 11/28/22 15:46 Anaerobic Culture - Preliminary Ascites Fluid No growth to date. Discharge Plan Discharge Anticipated Discharge Date/Time: 12/01/22 11:00 Patient Disposition: Home, Self-Care Discharge Diagnosis: Esophageal variceal bleed Referrals: Martin Avilez MD [Primary Care Provider] - 1 Week Discharge Medications: New sucralfate 1 gram Tablet 1 g PO DAILY Qty: 30 0RF cefuroxime axetil 500 mg tablet 500 mg PO BID 10 Days Qty: 20 0RF Continued Creon 24,000-76,000 -120,000 unit capsule,delayed release(DR/EC) 1 cap PO TID Qty: 90 3RF spironolactone 100 mg tablet 300 mg PO DAILY 30 Days Qty: 90 2RF Xifaxan 550 mg tablet 550 mg PO BID Qty: 60 6RF omeprazole 40 mg capsule,delayed release(DR/EC) 40 mg PO DAILY@0630 paroxetine HCl 20 mg tablet 20 mg PO DAILY furosemide 40 mg tablet 120 mg PO DAILY ondansetron 4 mg tablet,disintegrating 4 mg PO Q8H PRN (Reason: nausea and vomiting) Qty: 14 0RF (DME) FreeStyle Lite Strips Strip See Rx Instructions .ROUTE .MEDSUPPLY Qty: 100 2RF Rx Instructions: QID (DME) lancets Misc See Rx Instructions .ROUTE .MEDSUPPLY Qty: 200 2RF Rx Instructions: 4 times daily (DME) blood-glucose meter [FreeStyle Lite Meter] Kit See Rx Instructions .ROUTE .MEDSUPPLY Qty: 1 0RF Rx Instructions: As directed insulin lispro 100 unit/mL insulin pen See Protocol subcut QIDACHS Qty: 15 2RF Protocol: Insulin Correction Scale Less than or equal to 110 ---- Give (units): 0 111 to 150 Give (units): 0 151 to 200 Give (units): 2 201 to 250 Give (units): 4 251 to 300 Give (units): 6 301 to 350 Give (units): 8 Greater than 350 Give (units): 10 Call MD if Blood Glucose > : 350 (DME) pen needle, diabetic [Pen Needle] 31 gauge x 5/16 needle See Rx Instructions .ROUTE .MEDSUPPLY Qty: 1200 0RF Rx Instructions: As directed oxycodone 5 mg tablet 5 mg PO Q6H PRN (Reason: pain) Qty: 10 0RF Rx Instructions: Partial Fill upon patient request. insulin glargine 100 unit/mL (3 mL) insulin pen 30 unit subcut [facility] hydroxyzine pamoate 25 mg capsule 25 - 50 mg PO DAILY albuterol sulfate [ProAir HFA] 90 mcg/actuation HFA aerosol inhaler 1 - 2 puff inhalation Q4-6H PRN (Reason: Shortness Of Breath) folic acid 1 mg tablet 1 mg PO DAILY bupropion HCl 300 mg tablet extended release 24 hr 300 mg PO DAILY thiamine HCl (vitamin B1) 100 mg tablet 100 mg PO DAILY lactulose 10 gram/15 mL solution 30 ml PO TID PRN (Reason: Constipation) lorazepam 0.5 mg tablet 0.5 mg PO DAILY PRN (Reason: anxiety attack) acamprosate 333 mg tablet,delayed release (DR/EC) 666 mg PO TID Qty: 180 0RF Discharge Orders: Discharge Order (Routine); Ordered 12/01/22 Ordered By: Kelby Roberts Diet: Advance to usual diet Activity on Discharge: As tolerated Stand Alone Forms: Patient Portal Discharge page Care Plan Goals: Abstain from alcohol Health Concerns: Take Ceftin 500 mg twice daily for 2 weeks Plan of Treatment: Follow-up with GI as scheduled Assessment: See discharge summary
--- NOTE | 2022-12-01 11:37 | MHC.CM.PN ---
Patient has been medically cleared for dc to home today, self care.
== END 2022-12-01 14:13 | disposition home or self-care (01) | DRG 280 ==
LOC: HO.ED 19:11 → HO.EDOVER 22:20 → HO.IMC 11-28 14:30
PROVIDERS: Internal Medicine Gastroenterology; Nurse Practitioner Acute Care; Physician Assistant; Radiology Diagnostic Radiology; Admitting Provider Student in an Organized Health Care Education/Training Program; Emergency Provider Internal Medicine; PCP Internal Medicine; Visit Provider Hospitalist
PROC: 0W9G3ZZ Drainage of Peritoneal Cavity, Percutaneous Approach (ICD-10-PCS; principal; 2022-11-28 11:30)
PROC: 0DJ08ZZ Inspection of Upper Intestinal Tract, Via Natural or Artificial Opening Endoscopic (ICD-10-PCS; CPT 43235; principal; 2022-11-28 15:20)
DX: K70.31 Alcoholic cirrhosis of liver with ascites (principal); I85.11 Secondary esophageal varices with bleeding; K76.6 Portal hypertension; E11.42 Type 2 diabetes mellitus with diabetic polyneuropathy; D62 Acute posthemorrhagic anemia; F39 Unspecified mood [affective] disorder; F10.20 Alcohol dependence, uncomplicated; Z87.891 Personal history of nicotine dependence; Z79.4 Long term (current) use of insulin; Z79.899 Other long term (current) drug therapy; K31.89 Other diseases of stomach and duodenum
CPT/HCPCS: 36415; 49083; 76700; 80053; 82042; 82272; 82945; 82947; 83986; 84157; 84484; 85025; 85610; 85730; 86850; 86900; 86901; 86923; 87070; 87073; 87205; 89051; 93005; 93975; 99285; J0171; J0330; J0696; J2060; J2250; J2354; J2405; J3010; J3411; P9047

== ENCOUNTER 2022-12-05 11:34 | Outpatient (REF) | payer MEDICAID, SELFPAY ==
--- NOTE | ~2022-12-05 | XR_ITS ---
EXAMINATION: XR CHEST CLINICAL INFORMATION: Pleural effusion COMPARISON: Previous chest x-ray 11/27/2022 TECHNIQUE: 2 views of the chest were obtained. FINDINGS: The cardiac and mediastinal contours are stable. There is subsegmental atelectasis at the left lung base. The lungs are otherwise clear. There were small bilateral pleural effusions, left greater than right. These are slightly increased from previous exam. Bony structures are unremarkable. XR/XR chest 2V IMPRESSION: Small bilateral pleural effusions, left greater than right.
[2022-12-05 13:02] LABS: Hematocrit 26.4 % (42.0-52.0); Hemoglobin 8.6 g/dl (14.0-18.0); Mean Corpuscular HGB Conc 32.6 g/dl (31.0-36.0); Mean Corpuscular Hemoglobin 32.6 pg (27.0-33.0); Mean Platelet Volume 9.2 fL (9.4-12.4); Platelet Count 209 X10*3/uL (160-400); Red Blood Count 2.64 X10*6/uL (4.60-5.80); Red Cell Distribution Width 13.7 % (11.0-16.0); White Blood Count 4.8 X10*3/uL (4.8-10.8)
[2022-12-05 13:42] LABS: Anion Gap 11 (12-20); Blood Urea Nitrogen 9 mg/dL (9-16); Calcium 8.7 mg/dL (8.4-10.2); Carbon Dioxide 26 mmol/L (22-29); Chloride 101 mmol/L (96-108); Estimated Glomerular Filt Rate > 60; Glucose Random 168 mg/dL (60-115); Potassium 3.7 mmol/L (3.3-5.1); Sodium 134 mmol/L (135-145)
[2022-12-05 14:48] LABS: Potassium Urine Random 87.7 mmol/L
[2022-12-10 11:53] LABS: Phosphatidylethanol 16:0-18:1 SEE COMMENTS
== END 2022-12-05 11:35 | disposition home or self-care (01) ==
LOC: HO.XRAY 11:34
PROVIDERS: Absent Provider Hospitalist; PCP Internal Medicine; Visit Provider Internal Medicine
DX: I85.00 Esophageal varices without bleeding (principal); J90 Pleural effusion, not elsewhere classified; K72.90 Hepatic failure, unspecified without coma; K74.60 Unspecified cirrhosis of liver; J94.8 Other specified pleural conditions; F10.21 Alcohol dependence, in remission; D36.9 Benign neoplasm, unspecified site; F17.200 Nicotine dependence, unspecified, uncomplicated; Z71.6 Tobacco abuse counseling; Z79.899 Other long term (current) drug therapy
CPT/HCPCS: 36415; 71046; 80048; 80321; 84133; 84300; 85027; 99212

== ENCOUNTER → 2022-12-13 10:14 | Outpatient (BNVA) | payer MEDICAID, SELFPAY | PROVIDERS: PCP Internal Medicine; Visit Provider Hospitalist | DX: R06.00 Dyspnea, unspecified (principal) | CPT/HCPCS: 94618; 99211 ==

== ENCOUNTER → 2022-12-14 10:33 | Day surgery (SDC) | payer MEDICAID, SELFPAY ==
--- NOTE | 2022-12-13 10:31 | P.CONAN_ITS ---
HPI - Anesthesia Eval Consult details Narrative: 57yo M for Upper Endoscopy ETOH cirrhosis with ascites, varices (Last paracentesis 11/28/22. 6.9L removed.) s/p EGD with banding of bleeding varices [place]/28/22 with [place] [facility] [place] PMF Active Problems Active Problems: All Active Problems (Updated 12/05/22 @ 11:54 by Marcia Hawk MD) Varices of esophagus determined by endoscopy (Acute) Ascites (Acute) Newly diagnosed diabetes (Acute) Spinal stenosis (Acute) Chronic low back pain (Acute) Degenerative disc disease, cervical (Acute) Multiple adenomatous polyps (Acute) Neuropathic pain (Acute) Acute alcoholic pancreatitis (Acute) Pleural effusion (Acute) Irritable bowel syndrome with diarrhea (Acute) Elevated liver function tests (Acute) Alcohol withdrawal (Acute) Portal vein thrombosis (Acute) Alcoholic cirrhosis of liver (Acute) Hydrothorax (Acute) Bronchopneumonia (Acute) Hepatopulmonary syndrome (Acute) Hyperammonemia (Acute) Alcohol use disorder, moderate, in early remission (Acute) Pericardial effusion (Acute) Dyspnea (Acute) Blood D-dimer assay positive (Acute) Acute pancreatitis (Acute) half-way current use of diuretic (Acute) Recurrent left pleural effusion (Acute) Pleural effusion (Acute) Pericardial effusion (Acute) Tachycardia (Acute) Dyspnea (Acute) Past Medical History Medical History Alcohol use disorder, moderate, dependence Alcoholism Chronic abdominal pain Cirrhosis Decompensation of cirrhosis of liver Dyspnea Elevated LFTs Esophageal varices GERD (gastroesophageal reflux disease) Gout Hydropneumothorax Pericardial effusion Peripheral neuropathy Pleural effusion Pleural effusion on right Recurrent left pleural effusion Tachycardia Family History Family History Mother Cancer Sister Cancer Family history of problems with anesthesia: No Surgical History Surgical History H/O cervical spine surgery H/O colonoscopy H/O hemicolectomy History of thoracentesis Hx of esophagogastroduodenoscopy History of Problems with Anesthesia: No Social History Social History Household Members: Other Household Members Other:: roommate Housing: House Do you presently have visiting nurse or other home services: No Alcohol intake: former Patient Tobacco Use Status: Former Tobacco user Quit Date: 1 mth ago Tobacco use type: Cigarette Cigarettes Per Day: 2 Years Smoked: 30 e-Cigarette/Vaping Use: Currently Using Second Hand Smoke Exposure: No Substance Use Type: Marijuana Advance Directives Date on File: 11/27/22 service: No Current occupational status: unemployed Meds Allergies Allergy/AdvReac Type Severity Reaction Status Date / Time No Known Drug Allergies Allergy Mild NONE Verified 12/13/22 10:55 [NO KNOWN DRUG ALLERGIES] Home Medications Medication Instructions Recorded Confirmed Last Taken Type bupropion HCl 300 mg 24 hr tablet, 300 mg PO DAILY 06/10/21 12/13/22 10/27/22 History extended release folic acid 1 mg tablet 1 mg PO DAILY 06/10/21 12/13/22 10/27/22 History thiamine HCl (vitamin B1) 100 mg 100 mg PO DAILY 06/10/21 12/13/22 10/27/22 History tablet albuterol sulfate 90 mcg/actuation 1 - 2 puff inhalation Q4-6H PRN 01/26/22 12/13/22 Unknown History aerosol inhaler (ProAir HFA) Shortness Of Breath hydroxyzine pamoate 25 mg capsule 25 - 50 mg PO DAILY itching 01/26/22 12/13/22 10/27/22 History lorazepam 0.5 mg tablet 0.5 mg PO DAILY PRN anxiety attack 07/13/22 12/13/22 10/27/22 History omeprazole 40 mg capsule,delayed 40 mg PO DAILY@0630 07/13/22 12/13/22 10/27/22 History release paroxetine HCl 20 mg tablet 20 mg PO DAILY 07/13/22 12/13/22 10/27/22 History insulin glargine 100 unit/mL (3 30 unit subcut QAM 11/27/22 12/13/22 Unknown History mL) subcutaneous pen Exam Exam Date and Time: December 13, 2022 1031 Pertinent Lab Results Pertinent Lab Results: Laboratory Tests 12/05/22 12/05/22 12:33 12:33 WBC 4.8 Hgb 8.6 L Hct 26.4 L Plt Count 209 D Sodium 134 L Potassium 3.7 Chloride 101 Carbon Dioxide 26 BUN 9 Creatinine 0.84 Narrative Narrative: EKG 11/2022 Vent. Rate : 134 BPM ? ? Atrial Rate : 134 BPM ?? P-R Int : 150 ms? QRS Dur : 074 ms ? ? QT Int : 308 ms ? ? ? P-R-T Axes : 049 035 060 degrees ?? QTc Int : 459 ms ? Sinus tachycardia Otherwise normal ECG When compared with ECG of 27-NOV-2022 07:18, No significant change was found XR chest 2V 12/05/22 IMPRESSION: Small bilateral pleural effusions, left greater than right. Assessment and Plan Assessment Anesthesia Assessment: Chart Reviewed Final Anesthetic Review Family History of Problems with Anesthesia: No History of Problems with Anesthesia: No
[2022-12-14 10:35] VITALS: BMI 30.8
[2022-12-14 10:42] VITALS: BP 107/67; PULSE 82; RESP 16; TEMP 36.4; O2SAT 96
[2022-12-14 10:54] LABS: Glucose, Whole Blood 103 mg/dL (60-115)
[2022-12-14] MEDS: Lactated Ringers 1,000 ML 50 ML IVCONT (10:55)
--- NOTE | 2022-12-14 11:40 | PC.NURSE ---
patient was called in earlier for his procedure but md copeland would like a paracentesis prior to procedure. aware of plan awaiting for response. resting comfortably.
--- NOTE | 2022-12-14 13:09 | PC.NURSE ---
patient is cancelled for his egd for today per md copeland because he needs to have a paracentesis today. awaiting for his paracentesis. fluids taken down. patient agreed for the egd to be tomorrow and agreed for the paracentesis today.
--- NOTE | 2022-12-14 13:31 | PC.NURSE ---
off unit to paracentesis
[2022-12-14] MEDS: Lidocaine HCl 1 % MPF 5 ML VIAL SUBCUT (14:26)
== END ==
PROVIDERS: PCP Internal Medicine; Visit Provider Internal Medicine
DX: K74.60 Unspecified cirrhosis of liver (principal); K72.90 Hepatic failure, unspecified without coma; Z53.8 Procedure and treatment not carried out for other reasons
CPT/HCPCS: 49083; 82947; P9047

== ENCOUNTER 2022-12-14 15:23 | Day surgery (SDC) | payer MEDICAID, SELFPAY ==
--- NOTE | ~2022-12-14 | US_ITS ---
EXAMINATION: US ULTRASOUND-GUIDED PARACENTESIS, ABDOMEN CLINICAL INFORMATION: Ascites. COMPARISON: 11/30/2022 TECHNIQUE: Ultrasound-guided paracentesis. FINDINGS: Informed consent was obtained from the patient prior to the procedure. During this process, the procedure and potential alternatives were explained, along with the intended outcome and benefits. The risks of the procedure, as well as the risk of not doing the procedure, were discussed. The patient was given the opportunity to ask questions regarding the procedure and appeared competent to make medical decisions. A signed consent form which documents this discussion was placed in the medical record. Ultrasound was performed demonstrating a moderate amount of ascites present. A site about the right lower quadrant was chosen where no inferior epigastric vessels were visualized. Using sterile technique and ultrasound guidance a 5 [place] needle sheath was directed using trocar technique into the abdominal cavity. A total of 6.2 L of slightly cloudy eliseo fluid was removed. Patient tolerated the procedure without difficulty. 12.5 g of albumin was administered intravenously during the procedure. US/US paracentesis abd w/image IMPRESSION: Therapeutic paracentesis with removal of 6.2 L of fluid.
[2022-12-14 14:35] VITALS: BP 109/67; PULSE 76; RESP 16; TEMP 36.4; O2SAT 97
[2022-12-14 14:50] VITALS: BP 111/67; PULSE 77; RESP 18; TEMP 36.2; O2SAT 97
--- NOTE | 2022-12-14 15:43 | PC.NURSE ---
see paper charting as well
== END 2022-12-14 15:43 | disposition home or self-care (01) ==
LOC: HO.SSS 15:24
PROVIDERS: PCP Internal Medicine; Visit Provider Radiology Diagnostic Radiology
DX: K70.31 Alcoholic cirrhosis of liver with ascites (principal); F10.20 Alcohol dependence, uncomplicated; R10.9 Unspecified abdominal pain; G89.29 Other chronic pain; R06.00 Dyspnea, unspecified; J90 Pleural effusion, not elsewhere classified; R00.0 Tachycardia, unspecified; Z57.31 Occupational exposure to environmental tobacco smoke; Z90.49 Acquired absence of other specified parts of digestive tract; Z87.891 Personal history of nicotine dependence
CPT/HCPCS: 49083

== ENCOUNTER 2022-12-15 10:24 | Day surgery (SDC) | payer MEDICAID, SELFPAY ==
[2022-12-15 08:34] VITALS: BMI 29.2
[2022-12-15] MEDS: Lactated Ringers 1,000 ML 50 ML IVCONT (10:58)
[2022-12-15 11:00] VITALS: BP 120/75; PULSE 84; RESP 18; TEMP 36.9; O2SAT 96
[2022-12-15 11:08] LABS: Glucose, Whole Blood 120 mg/dL (60-115)
--- NOTE | 2022-12-15 11:24 | P.OP_ITS ---
Operative Note Operative Note Date of Service: 12/15/22 Narrative: Procedure: Esophagogastroduodenoscopy Endoscopist: Marcia Hawk MD Indication: Cirrhosis, varices Anesthesia Provider: Dr Domi Oliveros Anesthesia Type: MAC Instrument: Olympus [id number]-[id number] ?? EGD Procedure:?? The procedure, indications, preparation and potential complications were reviewed with the patient, who indicated understanding and gave written informed consent to proceed. A physical exam was performed. The patient was electively intubated for airway protection the anesthesiologist. The endoscope was introduced through the mouth, and advanced to the second part of duodenum. The mucosa was carefully examined on slow withdrawal of the endoscope. The patient tolerated the procedure well. There were no immediate complications.? ? EGD Findings:? * Esophagus: Z line was at 45 cm. x2 columns of large varices were noted. There were also 3 columns of small varices with clean based post banding ulcers representing recent EVBL. * Stomach:? Diffuse congestion and erythema in mosaic pattern consistent with portal hypertensive gastropathy was noted in the whole stomach. No fundal varices were appreciated on retroflexion. * Duodenum:? Diffuse congestion and edema was noted in the whole of the examined duodenum. Additional intervention: The gastroscope was removed and the [employer] multi-band ligator was attached to the gastroscope. x2 bands were deployed at 43 and 40 cm. ? EGD Impressions:? * Esophageal varices (band ligation) * Post banding ulcers * Portal hypertensive gastropathy * Portal hypertensive duodenopathy ?? Recommendations:?? * Repeat EGD with banding to be scheduled in 4 weeks * Add carafate liquid 1g QID x 2 weeks * Cont Omeprazole 40 daily * Avoid etOH use * Avoid NSAIDs. Above has been reviewed with the patient.
--- NOTE | 2022-12-15 11:24 | MHC.SHP ---
Pre-Procedural Eval Section A Date of Service: 12/15/22 The History & Physical has been completed within 30 days and I have reviewed it.: Yes Section B Chief Complaint: Hepatic failure,cirrhosis of liver,Esopha varices Allergies: Allergies Allergy/AdvReac Type Severity Reaction Status Date / Time No Known Drug Allergies Allergy Mild NONE Verified 12/13/22 10:55 [NO KNOWN DRUG ALLERGIES] Plan Diagnosis/Plan: Unchanged I have reviewed the history and physical and performed a pertinent physical examination on my patient. No changes have occurred unless specified. Time Spent With Patient Time: Total time managing care of this patient today ____ minutes.
--- NOTE | 2022-12-15 11:36 | PC.NURSE ---
report given to phill luna at this time.
[2022-12-15 12:52] VITALS: BP 119/74; PULSE 88; RESP 18; TEMP 36.8; O2SAT 95
[2022-12-15 12:57] VITALS: BP 115/71; PULSE 88; RESP 18; O2SAT 98
[2022-12-15 13:02] VITALS: BP 118/80; PULSE 89; RESP 18; O2SAT 95
[2022-12-15 13:07] VITALS: BP 105/53; PULSE 89; RESP 16; O2SAT 95
[2022-12-15 13:22] VITALS: BP 110/72; PULSE 85; RESP 16; TEMP 36.8; O2SAT 86
== END 2022-12-15 13:30 | disposition home or self-care (01) ==
PROVIDERS: PCP Internal Medicine; Visit Provider Internal Medicine
PROC: 0DJ08ZZ Inspection of Upper Intestinal Tract, Via Natural or Artificial Opening Endoscopic (ICD-10-PCS; CPT 43235; principal; 2022-12-15 12:00)
DX: K72.90 Hepatic failure, unspecified without coma (principal); K74.60 Unspecified cirrhosis of liver; I85.00 Esophageal varices without bleeding; K76.6 Portal hypertension; K31.89 Other diseases of stomach and duodenum; R18.8 Other ascites; K76.82 Hepatic encephalopathy; I81 Portal vein thrombosis; J94.8 Other specified pleural conditions; F10.21 Alcohol dependence, in remission; D36.9 Benign neoplasm, unspecified site; Z79.899 Other long term (current) drug therapy; F17.210 Nicotine dependence, cigarettes, uncomplicated
CPT/HCPCS: 43244; 82947; J0330; J2250

== ENCOUNTER → 2022-12-22 10:03 | Outpatient (BNV) | payer MEDICAID, MEDICARE, SELFPAY | PROVIDERS: PCP Internal Medicine; Visit Provider Internal Medicine Medical Oncology | DX: D64.9 Anemia, unspecified (principal); C25.9 Malignant neoplasm of pancreas, unspecified | CPT/HCPCS: 99204; 99214 ==

== ENCOUNTER → 2022-12-27 08:22 | Outpatient (BNVA) | payer MEDICAID, SELFPAY | PROVIDERS: Visit Provider Hospitalist | DX: J90 Pleural effusion, not elsewhere classified (principal); J94.8 Other specified pleural conditions; R06.00 Dyspnea, unspecified; K70.30 Alcoholic cirrhosis of liver without ascites | CPT/HCPCS: 99212 ==

== ENCOUNTER → 2023-01-03 07:20 | Day surgery (SDC) | payer MEDICAID, SELFPAY ==
--- NOTE | ~2023-01-03 | US_ITS ---
EXAMINATION: US ABDOMINAL PARACENTESIS WITH IMAGES CLINICAL INFORMATION: Ascites. COMPARISON: 12/14/2022 TECHNIQUE: Evaluation for fluid collections with ultrasound. FINDINGS: No abnormal fluid collection was identified within all 4 quadrants of the abdomen. Paracentesis was canceled. US/US paracentesis abd w/image IMPRESSION: No free fluid within the abdomen appreciated. Paracentesis canceled.
[2023-01-03 08:02] LABS: MANUAL DIFF FLAG NO
[2023-01-03 08:07] LABS: Basophils Absolute Auto 0.1 X10*3/uL (0.0-0.2); Basophils Percent Auto 1.3 % (0-2); Eosinophils Absolute Auto 0.2 X10*3/uL (0.0-0.4); Eosinophils Percent Auto 2.8 % (0-4); Hematocrit 34.8 % (42.0-52.0); Hemoglobin 11.1 g/dl (14.0-18.0); Imm Gran Abs Auto 0.02 X10*3/uL (0.00-0.03); Imm Gran Pct Auto 0.3 % (0.0-0.4); Lymphocytes Absolute Auto 1.2 X10*3/uL (1.2-4.9); Lymphocytes Percent Auto 19.7 % (20-40); Mean Corpuscular HGB Conc 31.9 g/dl (31.0-36.0); Mean Corpuscular Hemoglobin 28.5 pg (27.0-33.0); Mean Corpuscular Volume 89.5 fL (80.0-98.0); Mean Platelet Volume 8.8 fL (9.4-12.4); Monocytes Absolute Auto 0.9 X10*3/uL (0.1-1.2); Monocytes Percent Auto 14.8 % (2-11); Neutrophils Absolute Auto 3.7 x10*3/uL (2.0-8.3); Neutrophils Percent Auto 61.1 % (45-73); Platelet Count 201 X10*3/uL (160-400); Red Blood Count 3.89 X10*6/uL (4.60-5.80); Red Cell Distribution Width 14.9 % (11.0-16.0); White Blood Count 6.1 X10*3/uL (4.8-10.8)
[2023-01-03 08:13] LABS: INTERNATIONAL NORM RATIO 1.2 (0.9-1.1); Prothrombin Time 13.6 SEC (10.0-13.1)
[2023-01-03 08:16] LABS: Partial Thromboplastin Time 30.3 SEC (26.0-36.4)
[2023-01-03 08:19] LABS: Glucose, Whole Blood 118 mg/dL (60-115)
[2023-01-03 08:26] LABS: Anion Gap 16 (12-20); Blood Urea Nitrogen 13 mg/dL (9-16); Carbon Dioxide 24 mmol/L (22-29); Chloride 101 mmol/L (96-108); Estimated Glomerular Filt Rate > 60; Potassium 4.7 mmol/L (3.3-5.1); Sodium 136 mmol/L (135-145)
[2023-01-03 08:37] VITALS: BMI 26.3
== END ==
PROVIDERS: PCP Internal Medicine; Visit Provider Radiology Diagnostic Radiology
DX: R18.8 Other ascites (principal)
CPT/HCPCS: 36415; 49083; 76705; 80051; 82565; 82947; 84520; 85025; 85610; 85730

== ENCOUNTER → 2023-01-03 09:00 | Outpatient (BNV) | payer MEDICAID, SELFPAY | PROVIDERS: PCP Internal Medicine; Visit Provider Radiology Diagnostic Radiology | DX: R18.8 Other ascites (principal) | CPT/HCPCS: 49083 ==

== ENCOUNTER 2023-01-16 09:53 | Day surgery (SDC) | payer MEDICAID, SELFPAY ==
[2023-01-12 17:21] VITALS: BMI 29.2
--- NOTE | 2023-01-15 12:30 | HO.ANESPROP2 ---
Documented by User: Pari Arreola NP 01/15/23 12:32 HPI - Anesthesia Eval Consult details Narrative: 57yo M for Upper Endoscopy ETOH cirrhosis with ascites, varices (Last paracentesis 11/28/22. 6.9L removed.) s/p EGD with banding of bleeding varices 12/15/22 with GA-ETT 7.5 PMFSH Active Problems Active Problems: All Active Problems (Updated 01/03/23 @ 08:19 by Jenna Robert RN) Spinal stenosis (Acute) Chronic low back pain (Acute) Degenerative disc disease, cervical (Acute) Multiple adenomatous polyps (Acute) Neuropathic pain (Acute) Acute alcoholic pancreatitis (Acute) Pleural effusion (Acute) Irritable bowel syndrome with diarrhea (Acute) Elevated liver function tests (Acute) Alcohol withdrawal (Acute) Portal vein thrombosis (Acute) Alcoholic cirrhosis of liver (Acute) Hydrothorax (Acute) Bronchopneumonia (Acute) Hepatopulmonary syndrome (Acute) Hyperammonemia (Acute) Alcohol use disorder, moderate, in early remission (Acute) Pericardial effusion (Acute) Dyspnea (Acute) Blood D-dimer assay positive (Acute) Acute pancreatitis (Acute) 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 (Acute) Newly diagnosed diabetes (Acute) Ascites (Acute) Varices of esophagus determined by endoscopy (Acute) Anemia (Acute) Recurrent left pleural effusion (Acute) Pleural effusion (Acute) Pericardial effusion (Acute) Tachycardia (Acute) Dyspnea (Acute) Past Medical History Medical History Alcohol use disorder, moderate, dependence Alcoholism Chronic abdominal pain Cirrhosis Decompensation of cirrhosis of liver Diabetes Dyspnea Elevated LFTs Esophageal varices GERD (gastroesophageal reflux disease) Gout Hydropneumothorax Pericardial effusion Peripheral neuropathy Pleural effusion Pleural effusion on right Recurrent left pleural effusion Tachycardia Family History Family History Mother Cancer Sister Cancer Family history of problems with anesthesia: No Surgical History Surgical History H/O cervical spine surgery H/O colonoscopy H/O hemicolectomy History of thoracentesis Hx of esophagogastroduodenoscopy History of Problems with Anesthesia: No Social History Social History (Updated 01/16/23 @ 11:40 by Jacquie Ohara MD) Household Members: Other Household Members Other:: roommate Housing: House Do you presently have visiting nurse or other home services: No Alcohol intake: current Alcohol type: hard liquor Patient Tobacco Use Status: Former Tobacco user Quit Date: 1 mth ago Tobacco use type: Cigarette Years Smoked: 30 e-Cigarette/Vaping Use: Currently Using Second Hand Smoke Exposure: No Substance Use Type: Marijuana Advance Directives Date on File: 11/27/22 service: No Current occupational status: unemployed Meds Allergies Allergy/AdvReac Type Severity Reaction Status Date / Time No Known Drug Allergies Allergy Mild NONE Verified 12/27/22 08:27 [NO KNOWN DRUG ALLERGIES] Home Medications Medication Instructions Recorded Confirmed Last Taken Type bupropion HCl 300 mg 24 hr tablet, 300 mg PO DAILY 06/10/21 01/03/23 12/14/22 History extended release folic acid 1 mg tablet 1 mg PO DAILY 06/10/21 01/03/23 10/27/22 History thiamine HCl (vitamin B1) 100 mg 100 mg PO DAILY 06/10/21 01/03/23 10/27/22 History tablet albuterol sulfate 90 mcg/actuation 1 - 2 puff inhalation Q4-6H PRN 01/26/22 01/03/23 Unknown History aerosol inhaler (ProAir HFA) Shortness Of Breath hydroxyzine pamoate 25 mg capsule 25 - 50 mg PO DAILY itching 01/26/22 01/03/23 10/27/22 History lorazepam 0.5 mg tablet 0.5 mg PO DAILY PRN anxiety attack 07/13/22 01/03/23 10/27/22 History omeprazole 40 mg capsule,delayed 40 mg PO DAILY@0630 07/13/22 01/03/23 12/14/22 History release paroxetine HCl 20 mg tablet 20 mg PO DAILY 07/13/22 01/03/23 12/14/22 History insulin glargine 100 unit/mL (3 30 unit subcut QAM 11/27/22 01/03/23 Unknown History mL) subcutaneous pen Exam Exam Date and Time: January 15, 2023 1230 Height,Weight and Vital Signs: Height 6 ft 5 in Weight 111.584 kg Pertinent Lab Results Pertinent Lab Results: Laboratory Tests 01/03/23 01/03/23 07:57 07:57 WBC 6.1 Hgb 11.1 L Hct 34.8 L Plt Count 201 Sodium 136 Potassium 4.7 Chloride 101 Carbon Dioxide 24 BUN 13 Creatinine 0.89 Narrative Narrative: EKG 11/2022 Vent. Rate : 134 BPM ? ? Atrial Rate : 134 BPM ?? P-R Int : 150 ms? QRS Dur : 074 ms ? ? QT Int : 308 ms ? ? ? P-R-T Axes : 049 035 060 degrees ?? QTc Int : 459 ms ? Sinus tachycardia Otherwise normal ECG When compared with ECG of 27-NOV-2022 07:18, No significant change was found XR chest 2V 12/05/22 IMPRESSION: Small bilateral pleural effusions, left greater than right. Assessment and Plan Assessment Anesthesia Assessment: Chart Reviewed Final Anesthetic Review Family History of Problems with Anesthesia: No History of Problems with Anesthesia: No Documented by User: Jacquie Ohara MD 01/16/23 11:41 [facility] Active Problems Active Problems: All Active Problems (Updated 01/16/23 @ 10:40 by Jacquie Ohara MD) Spinal stenosis (Acute) Chronic low back pain (Acute) Degenerative disc disease, cervical (Acute) Multiple adenomatous polyps (Acute) Neuropathic pain (Acute) Acute alcoholic pancreatitis (Acute) Pleural effusion (Acute) Irritable bowel syndrome with diarrhea (Acute) Elevated liver function tests (Acute) Alcohol withdrawal (Acute) Portal vein thrombosis (Acute) Alcoholic cirrhosis of liver (Acute) Hydrothorax (Acute) Bronchopneumonia (Acute) Hepatopulmonary syndrome (Acute) Hyperammonemia (Acute) Alcohol use disorder, moderate, in early remission (Acute) Pericardial effusion (Acute) Dyspnea (Acute) Blood D-dimer assay positive (Acute) Acute pancreatitis (Acute) 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 (Acute) Newly diagnosed diabetes (Acute) Ascites (Acute) Varices of esophagus determined by endoscopy (Acute) Anemia (Acute) Recurrent left pleural effusion (Acute) Pleural effusion (Acute) Pericardial effusion (Acute) Tachycardia (Acute) Dyspnea (Acute) Past Medical History Medical History Alcohol use disorder, moderate, dependence Alcoholism Chronic abdominal pain Cirrhosis Decompensation of cirrhosis of liver Diabetes Dyspnea Elevated LFTs Esophageal varices GERD (gastroesophageal reflux disease) Gout Hydropneumothorax Pericardial effusion Peripheral neuropathy Pleural effusion Pleural effusion on right Recurrent left pleural effusion Tachycardia Family History Family History Mother Cancer Sister Cancer Surgical History Surgical History H/O cervical spine surgery H/O colonoscopy H/O hemicolectomy History of thoracentesis Hx of esophagogastroduodenoscopy Social History Social History (Updated 01/16/23 @ 11:40 by Jacquie Ohara MD) Household Members: Other Household Members Other:: roommate Housing: House Do you presently have visiting nurse or other home services: No Alcohol intake: current Alcohol type: hard liquor Patient Tobacco Use Status: Former Tobacco user Quit Date: 1 mth ago Tobacco use type: Cigarette Years Smoked: 30 e-Cigarette/Vaping Use: Currently Using Second Hand Smoke Exposure: No Substance Use Type: Marijuana Advance Directives Date on File: 11/27/22 service: No Current occupational status: unemployed Meds Allergies Allergy/AdvReac Type Severity Reaction Status Date / Time No Known Drug Allergies Allergy Mild NONE Verified 12/27/22 08:27 [NO KNOWN DRUG ALLERGIES] Home Medications Medication Instructions Recorded Confirmed Last Taken Type bupropion HCl 300 mg 24 hr tablet, 300 mg PO DAILY 06/10/21 01/03/23 12/14/22 History extended release folic acid 1 mg tablet 1 mg PO DAILY 06/10/21 01/03/23 10/27/22 History thiamine HCl (vitamin B1) 100 mg 100 mg PO DAILY 06/10/21 01/03/23 10/27/22 History tablet albuterol sulfate 90 mcg/actuation 1 - 2 puff inhalation Q4-6H PRN 01/26/22 01/03/23 Unknown History aerosol inhaler (ProAir HFA) Shortness Of Breath hydroxyzine pamoate 25 mg capsule 25 - 50 mg PO DAILY itching 01/26/22 01/03/23 10/27/22 History lorazepam 0.5 mg tablet 0.5 mg PO DAILY PRN anxiety attack 07/13/22 01/03/23 10/27/22 History omeprazole 40 mg capsule,delayed 40 mg PO DAILY@0630 07/13/22 01/03/23 12/14/22 History release paroxetine HCl 20 mg tablet 20 mg PO DAILY 07/13/22 01/03/23 12/14/22 History insulin glargine 100 unit/mL (3 30 unit subcut QAM 11/27/22 01/03/23 Unknown History mL) subcutaneous pen Exam Height,Weight and Vital Signs: Height 6 ft 5 in Weight 111.584 kg Vital Signs Temp Pulse Resp BP Pulse Ox O2 Del Method 01/16/23 10:07 98 F 103 H 17 142/83 H 98 Room Air Airway Mallampati Class: III TM Dist: >3cm Neck ROM: Full Loose/Missing/Broken Teeth: Yes (Poor dentition. Many missing. Many broken) Heart: RRR Lungs: CTAB Assessment and Plan Assessment Anesthesia Assessment: Anesthesia Plan Discussed Final Anesthetic Review NPO: Yes ASA Class: III Final Preanesthetic Review: No Changes in Pt Med Stat, Meds/Allgs Chart Reviewed, Consent Obtained/Reviewed and Anes Risks/Benef Reviewed Patient Risk: Intermediate Procedure Risk: Low Assessment/Block/Sedation in SS: Assess/Block/Sedation-SS Anesthetic Plan Anesthetic Plan: GA Disposition: Standard PACU
[2023-01-16 10:07] VITALS: BP 142/83; PULSE 103; RESP 17; TEMP 36.6; O2SAT 98
[2023-01-16 10:08] LABS: Glucose, Whole Blood 143 mg/dL (60-115)
[2023-01-16] MEDS: Lactated Ringers 1,000 ML 50 ML IVCONT (10:13)
--- NOTE | 2023-01-16 10:30 | MHC.SHP ---
Pre-Procedural Eval Section A Date of Service: 01/16/23 Section B Chief Complaint: Varices Details of Present Illness: PMH: Alcohol use disorder, moderate, dependence Alcoholism Chronic abdominal pain Cirrhosis Decompensation of cirrhosis of liver Dyspnea Elevated LFTs Esophageal varices GERD (gastroesophageal reflux disease) Gout Hydropneumothorax Pericardial effusion Peripheral neuropathy Pleural effusion Pleural effusion on right Recurrent left pleural effusion Tachycardia Surgical History H/O cervical spine surgery H/O colonoscopy H/O hemicolectomy History of thoracentesis Hx of esophagogastroduodenoscopy Relevant Social History: Alcohol Use Present Medications: see Short Stay Collaborative assessment Allergies: Allergies Allergy/AdvReac Type Severity Reaction Status Date / Time No Known Drug Allergies Allergy Mild NONE Verified 12/27/22 08:27 [NO KNOWN DRUG ALLERGIES] Review of Systems Review of Systems Comment: Ten point ROS negative Exam Exam Comment: Gen appear: No acute distress HEENT: no icterus Chest: No overt resp distress Abd: soft, nontender, nondistended Psych: Stable affect, answering questions appropriately Neuro: A/Ox3 noted to move all extremities spontaneously Ext: no peripheral edema Plan Diagnosis/Plan: Unchanged I have reviewed the history and physical and performed a pertinent physical examination on my patient. No changes have occurred unless specified. Time Spent With Patient Time: Total time managing care of this patient today ____ minutes.
--- NOTE | 2023-01-16 10:31 | P.OP_ITS ---
Operative Note Operative Note Date of Service: 12/15/22 Narrative: Procedure: Esophagogastroduodenoscopy Endoscopist: Marcia Hawk MD Indication: Cirrhosis, varices Anesthesia Provider: Viviane Bryson CRNA Anesthesia Type: GEA Instrument: Olympus [id number]-[id number] ?? EGD Procedure:?? The procedure, indications, preparation and potential complications were reviewed with the patient, who indicated understanding and gave written informed consent to proceed. A physical exam was performed. The patient was electively intubated for airway protection the anesthesiologist. The endoscope was introduced through the mouth, and advanced to the second part of duodenum. The mucosa was carefully examined on slow withdrawal of the endoscope. The patient tolerated the procedure well. There were no immediate complications.? ? EGD Findings:? * Esophagus: Z line was at 45 cm. x2 columns of large varices were noted that extended from GE junction to 40 cm. * Stomach:? Diffuse congestion and erythema in mosaic pattern consistent with portal hypertensive gastropathy was noted in the whole stomach. There were scattered areas of spontaneous oozing. ? fundal varix was noted on retroflexion. * Duodenum:? Diffuse congestion and edema was noted in the whole of the examined duodenum. Additional intervention: The gastroscope was removed and the 12Return multi-band ligator was attached to the gastroscope. x2 bands were deployed at 44 and 42 cm. ? EGD Impressions:? * Esophageal varices (band ligation) * Portal hypertensive gastropathy * Portal hypertensive duodenopathy ?? Recommendations:?? * Repeat EGD with banding to be scheduled in 4 weeks * Carafate liquid 1g QID x 2 weeks * Cont Omeprazole 40 daily * Avoid etOH use * Avoid NSAIDs. Above has been reviewed with the patient.
[2023-01-16 11:36] VITALS: BP 151/86; PULSE 109; RESP 16; TEMP 36.9; O2SAT 97
[2023-01-16 11:41] VITALS: BP 137/89; PULSE 108; RESP 18; O2SAT 97
[2023-01-16 11:46] VITALS: BP 143/92; PULSE 103; RESP 20; O2SAT 98
[2023-01-16 11:51] VITALS: BP 149/89; PULSE 100; RESP 20; TEMP 37; O2SAT 98
[2023-01-16 12:06] VITALS: BP 146/91; PULSE 101; RESP 20; TEMP 37; O2SAT 96
== END 2023-01-16 12:26 | disposition home or self-care (01) ==
PROVIDERS: PCP Internal Medicine; Visit Provider Internal Medicine
PROC: 0DJ08ZZ Inspection of Upper Intestinal Tract, Via Natural or Artificial Opening Endoscopic (ICD-10-PCS; CPT 43235; principal; 2023-01-16 14:20)
DX: I85.00 Esophageal varices without bleeding (principal); K76.6 Portal hypertension; K31.89 Other diseases of stomach and duodenum; K70.31 Alcoholic cirrhosis of liver with ascites; I81 Portal vein thrombosis; F10.21 Alcohol dependence, in remission; F10.29 Alcohol dependence with unspecified alcohol-induced disorder
CPT/HCPCS: 43244; 82947; J0330; J2250; J2405; J3010

== ENCOUNTER → 2023-01-16 09:53 | Outpatient (BNV) | payer MEDICAID, SELFPAY | PROVIDERS: PCP Internal Medicine; Visit Provider Internal Medicine | DX: K74.60 Unspecified cirrhosis of liver (principal); I85.00 Esophageal varices without bleeding | CPT/HCPCS: 43244 ==

== ENCOUNTER 2023-01-18 19:16 | Emergency (ER) | payer MEDICAID, SELFPAY ==
--- NOTE | 2023-01-18 19:27 | ED_ITS ---
HPI - General Adult General Chief complaint: General Medical Stated complaint: tick bite? R arm Time Seen by Provider: 01/18/23 22:20 Source: patient Mode of arrival: ambulatory Limitations: no limitations History of Present Illness HPI narrative: Patient is a 57-year-old male presents emergency department for evaluation of concern for insect bite to the right forearm just below the elbow. Has been present for 2 days. There is surrounding bruising. Expresses concern about whether this is a tick bite with a Lyme disease rash. Denies any warmth, itching. Denies any fever, chills, headache, fatigue, muscle and/or joint pain, swollen lymph nodes. Related Data Home Medications Medication Instructions Recorded Confirmed bupropion HCl 300 mg 24 hr tablet, 300 mg PO DAILY 06/10/21 01/03/23 extended release folic acid 1 mg tablet 1 mg PO DAILY 06/10/21 01/03/23 thiamine HCl (vitamin B1) 100 mg 100 mg PO DAILY 06/10/21 01/03/23 tablet albuterol sulfate 90 mcg/actuation 1 - 2 puff inhalation Q4-6H PRN 01/26/22 01/03/23 aerosol inhaler (ProAir HFA) Shortness Of Breath hydroxyzine pamoate 25 mg capsule 25 - 50 mg PO DAILY itching 01/26/22 01/03/23 lorazepam 0.5 mg tablet 0.5 mg PO DAILY PRN anxiety attack 07/13/22 01/03/23 omeprazole 40 mg capsule,delayed 40 mg PO DAILY@0630 07/13/22 01/03/23 release paroxetine HCl 20 mg tablet 20 mg PO DAILY 07/13/22 01/03/23 insulin glargine 100 unit/mL (3 30 unit subcut QAM 11/27/22 01/03/23 mL) subcutaneous pen Previous Rx's Medication Instructions Recorded [id number] 1 cap PO TID #90 caps 02/28/22 24,000-76,000-120,000 unit capsule,delayed rel (Creon) rifaximin 550 mg tablet (Xifaxan) 550 mg PO BID #60 tabs 08/31/22 blood sugar diagnostic (FreeStyle #100 ea 10/30/22 Lite Strips) blood-glucose meter (FreeStyle #1 ea 10/30/22 Lite Meter kit) insulin lispro 100 unit/mL See Protocol subcut QIDACHS #15 mL 10/30/22 subcutaneous pen lancets #200 ea 10/30/22 ondansetron 4 mg disintegrating 4 mg PO Q8H PRN nausea and 10/30/22 tablet vomiting #14 tabs pen needle, diabetic 31 gauge x #1,200 ea 10/31/22 5/16 (Pen Needle) oxycodone 5 mg tablet 5 mg PO Q6H PRN pain #10 tabs 11/27/22 cefuroxime axetil 500 mg tablet 500 mg PO BID 10 days #20 tabs 12/01/22 furosemide 40 mg tablet 120 mg PO DAILY #90 tabs 12/04/22 lactulose 10 gram/15 mL oral 30 ml PO TID 30 days #2,700 mL 12/05/22 solution spironolactone 100 mg tablet 300 mg PO DAILY #90 tabs 12/06/22 carvedilol 3.125 mg tablet 6.25 mg PO BID 30 days #120 tabs 12/12/22 sucralfate 100 mg/mL oral 10 ml PO QID 2 weeks #560 mL 01/16/23 suspension (Carafate) Allergies Allergy/AdvReac Type Severity Reaction Status Date / Time No Known Drug Allergies Allergy Mild NONE Verified 01/18/23 19:28 [NO KNOWN DRUG ALLERGIES] Review of Systems Review of Systems: Yes all other systems are reviewed and are negative [facility] Past Medical History Attestation statement: The following information was validated with the patient. Source: old records reviewed Medical History Alcohol use disorder, moderate, dependence Alcoholism Chronic abdominal pain Cirrhosis Decompensation of cirrhosis of liver Diabetes Dyspnea Elevated LFTs Esophageal varices GERD (gastroesophageal reflux disease) Gout Hydropneumothorax Pericardial effusion Peripheral neuropathy Pleural effusion Pleural effusion on right Recurrent left pleural effusion Tachycardia Surgical History H/O cervical spine surgery H/O colonoscopy H/O hemicolectomy History of thoracentesis Hx of esophagogastroduodenoscopy Family History Family History Mother Cancer Sister Cancer Social History Social History (Updated 01/16/23 @ 11:40 by Jacquie Ohara MD) Household Members: Other Household Members Other:: roommate Housing: House Do you presently have visiting nurse or other home services: No Alcohol intake: current Alcohol type: hard liquor Patient Tobacco Use Status: Former Tobacco user Quit Date: 1 mth ago Tobacco use type: Cigarette Years Smoked: 30 e-Cigarette/Vaping Use: Currently Using Second Hand Smoke Exposure: No Substance Use Type: Marijuana Advance Directives: Yes Advance Directives on File: Yes Advance Directives Date on File: 11/27/22 service: No Current occupational status: unemployed Physical Exam ED Vital Signs: Vital Signs - 24 hr 01/18/23 19:28 Temperature 97 F Pulse Rate 97 Respiratory Rate 18 Blood Pressure 116/74 Pulse Oximetry 97 Oxygen Delivery Method Room Air BMI result Body Mass Index 27.9 Appearance: Alert.?Oriented to person, place and time. No acute distress.?Normal affect. Eyes: Pupils equal, round and reactive to light.? ENT: Pharynx normal.?? Neck: Normal inspection.? Neck supple.?? CVS: Heart sounds normal. Normal heart rate and rhythm.? Pulses normal.?? Respiratory: No respiratory distress.? Lung sounds clear to auscultation bilaterally?? Abdomen: Soft and non-tender. Skin: Skin warm and dry.? Normal skin color.? Right proximal anterior forearm with palpable papules surrounding a puncture tuyet with surrounding ecchymosis. Not consistent with erythema migrans Neuro: Moves all extremities spontaneously. Sensation intact bilaterally. No focal neuro deficits. Ambulates with normal steady gait. Course Course Course Narrative: This is an RME: Additional HPI, ROS, PE not included below will be deferred to primary provider. This is a 57-year-old?male with past medical history of cirrhosis and esophageal varices presents to the ED with complaints of ?tick bite on right arm x 2 days. ?insect bite with circular surrounding ecchymosis noted. Plan: Labs, tick panel ordered. Medical Decision Making Medical Decision Making MDM Narrative: Patient is a 57-year-old male presents emergency department for evaluation of concern for potential tick bite/Lyme rash as per HPI. There was never any identified tick present. He noticed the by initially a couple of days ago, thought that it may have been a mosquito but it did not become itchy as it typically would. There is surrounding bruising, does not appear consistent with erythema migrans would defer treatment at this time with doxycycline. Tick esparza el testing is pending at this time. Examination is not consistent with cellulitis. CBC reveals no leukocytosis, a normocytic anemia which is consistent with baseline, overall unremarkable BMP. We discussed worrisome signs and symptoms that would warrant re-evaluation in the emergency department. At this time he is stable for discharge. All questions were answered. Differential Diagnosis Differential Diagnoses: The differential diagnosis associated with the presentation includes (Insect bite, tick bite, erythema migrans, Lyme disease exposure, cellulitis) Lab Data MDM Lab Attestation statement: I reviewed the patient's lab results. (As noted above) 01/18/23 19:54 01/18/23 19:54 Labs: Lab Results 01/18/23 01/18/23 Range/Units 19:54 19:54 WBC 7.2 (4.8-10.8) X10*3/uL RBC 3.43 L (4.60-5.80) X10*6/uL Hgb 9.6 L (14.0-18.0) g/dl Hct 29.8 L (42.0-52.0) % MCV 86.9 (80.0-98.0) fL MCH 28.0 (27.0-33.0) pg MCHC 32.2 (31.0-36.0) g/dl RDW 15.9 (11.0-16.0) % Plt Count 182 (160-400) X10*3/uL MPV 8.7 L (9.4-12.4) fL Immature Gran % (Auto) 0.6 H (0.0-0.4) % Neut % (Auto) 63.4 (45-73) % Lymph % (Auto) 19.3 L (20-40) % Parmer % (Auto) 13.1 H (2-11) % Eos % (Auto) 2.8 (0-4) % Baso % (Auto) 0.8 (0-2) % Lymph # (Auto) 1.4 (1.2-4.9) X10*3/uL Parmer # (Auto) 0.9 (0.1-1.2) X10*3/uL Eos # (Auto) 0.2 (0.0-0.4) X10*3/uL Baso # (Auto) 0.1 (0.0-0.2) X10*3/uL Abs Immat Gran (auto) 0.04 H (0.00-0.03) X10*3/uL Absolute Neuts (auto) 4.6 (2.0-8.3) x10*3/uL Absolute Nucleated RBC 0.000 (0.0-0.012) X10*3/uL Nucleated RBC % (auto) 0.0 (0.0-0.2) /100WBC Sodium 132 L (135-145) mmol/L Potassium 4.3 (3.3-5.1) mmol/L Chloride 98 (96-108) mmol/L Carbon Dioxide 22 (22-29) mmol/L Anion Gap 16 (12-20) BUN 11 (9-16) mg/dL Creatinine 0.96 (0.5-1.4) mg/dL Estim Creat Clear Calc 109.5 Estimated GFR > 60 Random Glucose 113 (60-115) mg/dL Calcium 9.1 D (8.4-10.2) mg/dL External Record Review External record reviewed: Prior outpatient labs (As noted above) Prescription Management I considered prescription management with: Antibiotic (As noted above, antibiotics deferred.) Discharge Plan Discharge Clinical Impression: Insect bite Patient Disposition: Home, Self-Care Prescriptions: No Action Creon 24,000-76,000 -120,000 unit capsule,delayed release(DR/EC) 1 cap PO TID Qty: 90 3RF Xifaxan 550 mg tablet 550 mg PO BID Qty: 60 6RF furosemide 40 mg tablet 120 mg PO DAILY Qty: 90 3RF spironolactone 100 mg tablet 300 mg PO DAILY Qty: 90 2RF carvedilol 3.125 mg tablet 6.25 mg PO BID 30 Days Qty: 120 0RF Rx Instructions: must administer with a meal/food omeprazole 40 mg capsule,delayed release(DR/EC) 40 mg PO DAILY@0630 paroxetine HCl 20 mg tablet 20 mg PO DAILY sucralfate [Carafate] 100 mg/mL suspension 10 ml PO QID 14 Days Qty: 560 0RF ondansetron 4 mg tablet,disintegrating 4 mg PO Q8H PRN (Reason: nausea and vomiting) Qty: 14 0RF (DME) FreeStyle Lite Strips Strip See Rx Instructions .ROUTE .MEDSUPPLY Qty: 100 2RF Rx Instructions: QID (DME) lancets Misc See Rx Instructions .ROUTE .MEDSUPPLY Qty: 200 2RF Rx Instructions: 4 times daily (DME) blood-glucose meter [FreeStyle Lite Meter] Kit See Rx Instructions .ROUTE .MEDSUPPLY Qty: 1 0RF Rx Instructions: As directed insulin lispro 100 unit/mL insulin pen See Protocol subcut QIDACHS Qty: 15 2RF Protocol: Insulin Correction Scale Less than or equal to 110 ---- Give (units): 0 111 to 150 Give (units): 0 151 to 200 Give (units): 2 201 to 250 Give (units): 4 251 to 300 Give (units): 6 301 to 350 Give (units): 8 Greater than 350 Give (units): 10 Call MD if Blood Glucose > : 350 (DME) pen needle, diabetic [Pen Needle] 31 gauge x 5/16 needle See Rx Instructions .ROUTE .MEDSUPPLY Qty: 1200 0RF Rx Instructions: As directed oxycodone 5 mg tablet 5 mg PO Q6H PRN (Reason: pain) Qty: 10 0RF Rx Instructions: Partial Fill upon patient request. insulin glargine 100 unit/mL (3 mL) insulin pen 30 unit subcut QAM cefuroxime axetil 500 mg tablet 500 mg PO BID 10 Days Qty: 20 0RF hydroxyzine pamoate 25 mg capsule 25 - 50 mg PO DAILY albuterol sulfate [ProAir HFA] 90 mcg/actuation HFA aerosol inhaler 1 - 2 puff inhalation Q4-6H PRN (Reason: Shortness Of Breath) folic acid 1 mg tablet 1 mg PO DAILY bupropion HCl 300 mg tablet extended release 24 hr 300 mg PO DAILY thiamine HCl (vitamin B1) 100 mg tablet 100 mg PO DAILY lorazepam 0.5 mg tablet 0.5 mg PO DAILY PRN (Reason: anxiety attack) lactulose 10 gram/15 mL solution 30 ml PO TID 30 Days Qty: 2700 0RF Referrals: Martin Avilez MD [Primary Care Provider] -
[2023-01-18 19:28] VITALS: BP 116/74; PULSE 97; RESP 18; TEMP 36.1; O2SAT 97; BMI 27.9
[2023-01-18 20:00] LABS: MANUAL DIFF FLAG NO
[2023-01-18 20:01] LABS: Basophils Absolute Auto 0.1 X10*3/uL (0.0-0.2); Basophils Percent Auto 0.8 % (0-2); Eosinophils Absolute Auto 0.2 X10*3/uL (0.0-0.4); Eosinophils Percent Auto 2.8 % (0-4); Hematocrit 29.8 % (42.0-52.0); Hemoglobin 9.6 g/dl (14.0-18.0); Imm Gran Abs Auto 0.04 X10*3/uL (0.00-0.03); Imm Gran Pct Auto 0.6 % (0.0-0.4); Lymphocytes Absolute Auto 1.4 X10*3/uL (1.2-4.9); Lymphocytes Percent Auto 19.3 % (20-40); Mean Corpuscular HGB Conc 32.2 g/dl (31.0-36.0); Mean Corpuscular Volume 86.9 fL (80.0-98.0); Mean Platelet Volume 8.7 fL (9.4-12.4); Monocytes Absolute Auto 0.9 X10*3/uL (0.1-1.2); Monocytes Percent Auto 13.1 % (2-11); Neutrophils Absolute Auto 4.6 x10*3/uL (2.0-8.3); Neutrophils Percent Auto 63.4 % (45-73); Platelet Count 182 X10*3/uL (160-400); Red Blood Count 3.43 X10*6/uL (4.60-5.80); Red Cell Distribution Width 15.9 % (11.0-16.0); White Blood Count 7.2 X10*3/uL (4.8-10.8)
[2023-01-18 20:23] LABS: Anion Gap 16 (12-20); Blood Urea Nitrogen 11 mg/dL (9-16); Calcium 9.1 mg/dL (8.4-10.2); Carbon Dioxide 22 mmol/L (22-29); Chloride 98 mmol/L (96-108); Creatinine Clr Calc Pharmacy 109.5; Estimated Glomerular Filt Rate > 60; Glucose Random 113 mg/dL (60-115); Potassium 4.3 mmol/L (3.3-5.1); Sodium 132 mmol/L (135-145)
--- NOTE | 2023-01-18 22:05 | PC.NURSE ---
pt is the 3rd in line to be seen and he has been made aware of this. pt is upset and wants to leave. providers made aware and pt has been made aware of his choices to be seen or not and information on s/s of a tick bite.
[2023-01-22 22:19] LABS: Lyme Abs Screen <0.90 index
[2023-01-28 20:58] LABS: Babesia IgG <1:64 titer (<1:64); Babesia IgM <1:20 titer (<1:20)
[2023-02-07 13:58] LABS: A. Phagocytophilum Ab IgG <1:64 (<1:64); A. Phagocytophilum Ab IgM <1:20 (<1:20); E. Chaffeensis Ab IgG <1:64 (<1:64); E. Chaffeensis Ab IgM <1:20 (<1:20)
== END 2023-01-18 23:44 | disposition home or self-care (01) ==
PROVIDERS: Physician Assistant Medical; Emergency Provider Emergency Medicine; PCP Internal Medicine
DX: R21 Rash and other nonspecific skin eruption (principal); M79.601 Pain in right arm; Z79.899 Other long term (current) drug therapy
CPT/HCPCS: 36415; 80048; 85025; 86617; 86618; 86666; 86753; 99282; 99283

== ENCOUNTER 2023-02-02 10:51 | Day surgery (SDC) | payer MEDICAID, SELFPAY ==
[2023-01-30 16:39] VITALS: BMI 29.3
--- NOTE | 2023-02-01 09:14 | P.CONAN_ITS ---
Documented by User: Pari Arreola NP 02/01/23 09:17 HPI - Anesthesia Eval Consult details Narrative: 57yo M for Upper Endoscopy ETOH cirrhosis with ascites, varices (Last paracentesis 11/28/22. 6.9L removed. US 01/03/23 without fluid.) s/p EGD with banding of bleeding varices 01/16/23 with GA PMFSH Active Problems Active Problems: All Active Problems (Updated 01/19/23 @ 00:01 by Zohra Cuevas) Spinal stenosis (Acute) Chronic low back pain (Acute) Degenerative disc disease, cervical (Acute) Multiple adenomatous polyps (Acute) Neuropathic pain (Acute) Acute alcoholic pancreatitis (Acute) Pleural effusion (Acute) Irritable bowel syndrome with diarrhea (Acute) Elevated liver function tests (Acute) Alcohol withdrawal (Acute) Portal vein thrombosis (Acute) Alcoholic cirrhosis of liver (Acute) Hydrothorax (Acute) Bronchopneumonia (Acute) Hepatopulmonary syndrome (Acute) Hyperammonemia (Acute) Alcohol use disorder, moderate, in early remission (Acute) Pericardial effusion (Acute) Dyspnea (Acute) Blood D-dimer assay positive (Acute) Acute pancreatitis (Acute) 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 (Acute) Newly diagnosed diabetes (Acute) Ascites (Acute) Varices of esophagus determined by endoscopy (Acute) Anemia (Acute) Recurrent left pleural effusion (Acute) Pleural effusion (Acute) Pericardial effusion (Acute) Tachycardia (Acute) Dyspnea (Acute) Past Medical History Medical History Alcohol use disorder, moderate, dependence Alcoholism Chronic abdominal pain Cirrhosis Decompensation of cirrhosis of liver Diabetes Dyspnea Elevated LFTs Esophageal varices GERD (gastroesophageal reflux disease) Gout Hydropneumothorax Pericardial effusion Peripheral neuropathy Pleural effusion Pleural effusion on right Recurrent left pleural effusion Tachycardia Family History Family History Mother Cancer Sister Cancer Family history of problems with anesthesia: No Surgical History Surgical History H/O cervical spine surgery H/O colonoscopy H/O hemicolectomy History of thoracentesis Hx of esophagogastroduodenoscopy History of Problems with Anesthesia: No Social History Social History (Updated 01/16/23 @ 11:40 by Jacquie Ohara MD) Household Members: Other Household Members Other:: roommate Housing: House Do you presently have visiting nurse or other home services: No Alcohol intake: current Alcohol type: hard liquor Patient Tobacco Use Status: Former Tobacco user Quit Date: 1 mth ago Tobacco use type: Cigarette Years Smoked: 30 e-Cigarette/Vaping Use: Currently Using Second Hand Smoke Exposure: No Substance Use Type: Marijuana Advance Directives Date on File: 11/27/22 service: No Current occupational status: unemployed Meds Allergies Allergy/AdvReac Type Severity Reaction Status Date / Time No Known Drug Allergies Allergy Mild NONE Verified 01/18/23 19:28 [NO KNOWN DRUG ALLERGIES] Home Medications Medication Instructions Recorded Confirmed Last Taken Type bupropion HCl 300 mg 24 hr tablet, 300 mg PO DAILY 06/10/21 01/03/23 12/14/22 History extended release folic acid 1 mg tablet 1 mg PO DAILY 06/10/21 01/03/23 10/27/22 History thiamine HCl (vitamin B1) 100 mg 100 mg PO DAILY 06/10/21 01/03/23 10/27/22 History tablet albuterol sulfate 90 mcg/actuation 1 - 2 puff inhalation Q4-6H PRN 01/26/22 01/03/23 Unknown History aerosol inhaler (ProAir HFA) Shortness Of Breath hydroxyzine pamoate 25 mg capsule 25 - 50 mg PO DAILY itching 01/26/22 01/03/23 10/27/22 History lorazepam 0.5 mg tablet 0.5 mg PO DAILY PRN anxiety attack 07/13/22 01/03/23 10/27/22 History omeprazole 40 mg capsule,delayed 40 mg PO DAILY@0630 07/13/22 01/03/23 12/14/22 History release paroxetine HCl 20 mg tablet 20 mg PO DAILY 07/13/22 01/03/23 12/14/22 History insulin glargine 100 unit/mL (3 30 unit subcut QAM 11/27/22 01/03/23 Unknown History mL) subcutaneous pen Exam Exam Date and Time: February 01, 2023 0914 Height,Weight and Vital Signs: Height 6 ft 5 in Weight 111.981 kg Pertinent Lab Results Pertinent Lab Results: Laboratory Tests 01/18/23 01/18/23 19:54 19:54 WBC 7.2 Hgb 9.6 L Hct 29.8 L Plt Count 182 Sodium 132 L Potassium 4.3 Chloride 98 Carbon Dioxide 22 BUN 11 Creatinine 0.96 Narrative Narrative: EKG 11/2022 Vent. Rate : 134 BPM ? ? Atrial Rate : 134 BPM ?? P-R Int : 150 ms? QRS Dur : 074 ms ? ? QT Int : 308 ms ? ? ? P-R-T Axes : 049 035 060 degrees ?? QTc Int : 459 ms ? Sinus tachycardia Otherwise normal ECG When compared with ECG of 27-NOV-2022 07:18, No significant change was found XR chest 2V 12/05/22 IMPRESSION: Small bilateral pleural effusions, left greater than right. Assessment and Plan Assessment Anesthesia Assessment: Chart Reviewed Final Anesthetic Review Family History of Problems with Anesthesia: No History of Problems with Anesthesia: No Documented by User: Kunal Pineda MD 02/02/23 10:53 PMFSH Past Medical History Medical History Alcohol use disorder, moderate, dependence Alcoholism Chronic abdominal pain Cirrhosis Decompensation of cirrhosis of liver Diabetes Dyspnea Elevated LFTs Esophageal varices GERD (gastroesophageal reflux disease) Gout Hydropneumothorax Pericardial effusion Peripheral neuropathy Pleural effusion Pleural effusion on right Recurrent left pleural effusion Tachycardia Family History Family History Mother Cancer Sister Cancer Surgical History Surgical History H/O cervical spine surgery H/O colonoscopy H/O hemicolectomy History of thoracentesis Hx of esophagogastroduodenoscopy Social History Social History (Updated 01/16/23 @ 11:40 by Jacquie Ohara MD) Household Members: Other Household Members Other:: roommate Housing: House Do you presently have visiting nurse or other home services: No Alcohol intake: current Alcohol type: hard liquor Patient Tobacco Use Status: Former Tobacco user Quit Date: 1 mth ago Tobacco use type: Cigarette Years Smoked: 30 e-Cigarette/Vaping Use: Currently Using Second Hand Smoke Exposure: No Substance Use Type: Marijuana Advance Directives Date on File: 11/27/22 service: No Current occupational status: unemployed Meds Allergies Allergy/AdvReac Type Severity Reaction Status Date / Time No Known Drug Allergies Allergy Mild NONE Verified 01/18/23 19:28 [NO KNOWN DRUG ALLERGIES] Home Medications Medication Instructions Recorded Confirmed Last Taken Type bupropion HCl 300 mg 24 hr tablet, 300 mg PO DAILY 06/10/21 01/03/23 12/14/22 History extended release folic acid 1 mg tablet 1 mg PO DAILY 06/10/21 01/03/23 10/27/22 History thiamine HCl (vitamin B1) 100 mg 100 mg PO DAILY 06/10/21 01/03/23 10/27/22 History tablet albuterol sulfate 90 mcg/actuation 1 - 2 puff inhalation Q4-6H PRN 01/26/22 01/03/23 Unknown History aerosol inhaler (ProAir HFA) Shortness Of Breath hydroxyzine pamoate 25 mg capsule 25 - 50 mg PO DAILY itching 01/26/22 01/03/23 10/27/22 History lorazepam 0.5 mg tablet 0.5 mg PO DAILY PRN anxiety attack 07/13/22 01/03/23 10/27/22 History omeprazole 40 mg capsule,delayed 40 mg PO DAILY@0630 07/13/22 01/03/23 12/14/22 History release paroxetine HCl 20 mg tablet 20 mg PO DAILY 07/13/22 01/03/23 12/14/22 History insulin glargine 100 unit/mL (3 30 unit subcut QAM 11/27/22 01/03/23 Unknown History mL) subcutaneous pen Exam Airway Mallampati Class: II TM Dist: >3cm Neck ROM: Limited Heart: rrr Lungs: cta Assessment and Plan Final Anesthetic Review NPO: Yes ASA Class: IV Final Preanesthetic Review: No Changes in Pt Med Stat, Meds/Allgs Chart Reviewed, Consent Obtained/Reviewed and Anes Risks/Benef Reviewed Patient Risk: High Procedure Risk: High Anesthetic Plan Anesthetic Plan: GA and Agree w/ Assess. and Plan Disposition: Standard PACU
[2023-02-02 11:11] VITALS: BP 133/76; PULSE 101; RESP 16; TEMP 36.8; O2SAT 98
[2023-02-02] MEDS: Lactated Ringers 1,000 ML 50 ML IVCONT (11:19)
[2023-02-02 11:27] LABS: Glucose, Whole Blood 131 mg/dL (60-115)
--- NOTE | 2023-02-02 12:29 | P.OP_ITS ---
Operative Note Operative Note Date of Service: 02/02/23 Narrative: Procedure: Esophagogastroduodenoscopy Endoscopist: Marcia Hawk MD Indication: Cirrhosis, varices Anesthesia Provider: Jeannette Bello CRNA Anesthesia Type: GEA Instrument: Olympus [id number]-[id number] ?? EGD Procedure:?? The procedure, indications, preparation and potential complications were reviewed with the patient, who indicated understanding and gave written informed consent to proceed. A physical exam was performed. The patient was electively intubated for airway protection the anesthesiologist. The endoscope was introduced through the mouth, and advanced to the second part of duodenum. The mucosa was carefully examined on slow withdrawal of the endoscope. The patient tolerated the procedure well. There were no immediate complications.? ? EGD Findings:? * Esophagus: The Z line was at 45 cm. A 1 cm clean based post-banding ulcer was noted at 44 cm. x2 columns of small varices were noted. * Stomach:? Diffuse congestion and erythema in mosaic pattern consistent with portal hypertensive gastropathy was noted in the whole stomach. There were scattered areas of spontaneous oozing. Fundal varix was noted on retroflexion. * Duodenum:? Diffuse congestion and edema was noted in the whole of the examined duodenum. ? EGD Impressions:? * Small esophageal varices * Post-banding ulcer * Portal hypertensive gastropathy * Portal hypertensive duodenopathy ?? Recommendations:?? * Increase carvedilol to 12.5mg BID * Cont Omeprazole 40 daily * Avoid etOH use * Avoid NSAIDs. * Due to frequent relapse with etOH use, will repeat EGD in 1 year for variceal surveillance
--- NOTE | 2023-02-02 12:29 | MHC.SHP ---
Pre-Procedural Eval Section A Date of Service: 02/02/23 Section B Chief Complaint: Esophageal varices without bleeding Details of Present Illness: PMH: Alcohol use disorder, moderate, dependence Alcoholism Chronic abdominal pain Cirrhosis Decompensation of cirrhosis of liver Dyspnea Elevated LFTs Esophageal varices GERD (gastroesophageal reflux disease) Gout Hydropneumothorax Pericardial effusion Peripheral neuropathy Pleural effusion Pleural effusion on right Recurrent left pleural effusion Tachycardia Surgical History H/O cervical spine surgery H/O colonoscopy H/O hemicolectomy History of thoracentesis Hx of esophagogastroduodenoscopy Relevant Social History: Alcohol Use Present Medications: see Short Stay Collaborative assessment Allergies: Allergies Allergy/AdvReac Type Severity Reaction Status Date / Time No Known Drug Allergies Allergy Mild NONE Verified 01/18/23 19:28 [NO KNOWN DRUG ALLERGIES] Review of Systems Review of Systems Comment: Ten point ROS negative Exam Exam Comment: Gen appear: No acute distress HEENT: no icterus Chest: No overt resp distress Abd: soft, nontender, nondistended Psych: Stable affect, answering questions appropriately Neuro: A/Ox3 noted to move all extremities spontaneously Ext: no peripheral edema Plan Diagnosis/Plan: Unchanged I have reviewed the history and physical and performed a pertinent physical examination on my patient. No changes have occurred unless specified. Time Spent With Patient Time: Total time managing care of this patient today ____ minutes.
[2023-02-02 13:19] VITALS: BP 139/78; PULSE 98; RESP 18; TEMP 36.3; O2SAT 96
[2023-02-02 13:24] VITALS: BP 135/72; PULSE 97; RESP 18; O2SAT 98
[2023-02-02 13:29] VITALS: BP 132/75; PULSE 92; RESP 18; O2SAT 98
[2023-02-02 13:34] VITALS: BP 134/75; PULSE 91; RESP 18; O2SAT 98
[2023-02-02 13:58] VITALS: BP 133/79; PULSE 93; RESP 18; TEMP 36.7; O2SAT 98
== END 2023-02-02 14:10 | disposition home or self-care (01) ==
PROVIDERS: PCP Internal Medicine; Visit Provider Internal Medicine
PROC: 0DJ08ZZ Inspection of Upper Intestinal Tract, Via Natural or Artificial Opening Endoscopic (ICD-10-PCS; CPT 43235; principal; 2023-02-02 12:30)
DX: I85.00 Esophageal varices without bleeding (principal); K22.11 Ulcer of esophagus with bleeding; K74.60 Unspecified cirrhosis of liver; K76.6 Portal hypertension; K31.89 Other diseases of stomach and duodenum; F10.20 Alcohol dependence, uncomplicated; Z79.899 Other long term (current) drug therapy
CPT/HCPCS: 43235; 82947; J0330; J2405

== ENCOUNTER → 2023-02-02 10:51 | Outpatient (BNV) | payer MEDICAID, SELFPAY | PROVIDERS: PCP Internal Medicine; Visit Provider Internal Medicine | DX: K74.60 Unspecified cirrhosis of liver (principal) | CPT/HCPCS: 43235 ==

== ENCOUNTER 2023-02-05 09:26 | Outpatient (AMB) | payer MEDICAID, SELFPAY ==
--- NOTE | 2023-02-05 09:29 | MHC.OFFVIS ---
Intake Vital Signs 02/05/23 09:30 02/05/23 10:11 Height 6 ft 5 in Weight 244 lb 11.41 oz BMI 29.0 BP 94/57 L 113/73 Blood Pressure Location Lt brachial Lt brachial Position Sitting Sitting Pulse 87 85 Intake Visit Reasons: S/p Egd Intake Note: Aaksh presents in the office as a follow up EGD. CC: His throat has been hurting him and has issues taking pills but other than that no other concerns. Mcat Tutor Required: No Allergies No Known Drug Allergies [NO KNOWN DRUG ALLERGIES] Allergy (Mild, Verified 02/05/23 09:30) NONE HPI HPI Comments History of Present Illness Details This is a 56-year-old gentleman with past medical history of severe alcohol use disorder that has led to cirrhosis complicated by portal hypertension (portal hypertension gastropathy, esophageal varices, ascites, hepatic hydrothorax, hepatic encephalopathy) MELD-Na 19, Child St class C, main portal vein thrombosis currently not on anticoagulation, who presents for q4w follow-up. 01/2022: Main issue remains difficulty managing hepatic hydrothorax. This was noted initially in 07/2021 and worsened after development of PVT in 09/2021. He has undergone multiple thoracentesis since then, predominantly on the right side. Details of most recent thoras: 01/30/2022- 1.6 L dark clear eliseo fluid. No specimen sent. No immediate complications but small right pneumothorax was visualized after this procedure on CTA 02/05 which is persistent on chest x-ray done 02/07. 01/18/2022-1.5 L of eliseo colored fluid with intermittent hemorrhage. Fluid studies showed: 12/30/2021-2.4 L drained from the right side. No fluid studies sent. Fluid studies from 10/19 show Light's criteria consistent with transudative effusion. SAAG of 1.3, however the total protein of the fluid was 3.6. (patient has never had an echocardiogram that I can see in our system). He is currently on Lasix 40 mg and spironolactone 100 mg. This was changed a month ago. His renal function has remained stable. No recent urine lytes in our system. In terms of his salt intake, he says that he does not add any extra salt from shaker. Cooks food himself but still ends up buying a lot of food from the [employer]. Tends to have a lot of sausage, steak, chicken, which is heavily . Sabrajorje sees and t was not aware of checking nutrition labels. Last etOH intake was 6 weeks ago. Does not remember the quit date. He still currently smokes 5-6 cigarettes a day. Lives at home with his roommate and cat. Siblings are big support, especially his sister Tiny who is also present today. Additionally, on further questioning, he also notes significant difficulty with concentration and small past that he could do previously without any difficulty. He also has trouble sleeping at night. Reports decrease in stamina, can only walk a few feet before he feels tired. States this had been going on even before he had issue with pleural effusion. When he does not have any ascites, he denies any abdominal discomfort, nausea, vomiting, changes in bowel habits. Denies any new rashes. Endorses fatigue as above. 03/08/22: Here for follow up alone. Reports that has not had to get a thoracentesis done, in the past 4 weeks, however now feels that he may be reaching the point. Continues on Lasix 60 mg and Aldactone 150 mg. Tells me he did get the phone message increased dosage, but as he did not right now and that time, he could not remember later on which was to increase, and ended up not increasing to Lasix 80 and Aldactone 200 mg as had been planned. He has not taken his meds this morning, and plans to take the new dose of the diuretics today. He also had not been taking his lactulose, since he had been going to the bathroom at least 1-2 times every day, and thought that lactulose was prescribed as a laxative. Reviewed, that this is to help with hepatic encephalopathy, and that he should take at least 1-2 doses every day with goal 2-3 bowel movements. Can decrease dose if he reaches that goal. Continues to remain sober from alcohol. Places last alcohol intake sometime in November 2021, prior to his hospital admission. Still smoking, now down to 3-5 cigarettes a day. Labs were reviewed. I discussed my concern would high urine sodium, and likely an inverted and sodium indiscretion. He tells me that it has been really hard for him to give up salt completely, but that he is trying. Again encouraged to follow up with a installation specialist to help with meal planning and to see if eligible for meals on wheels. In terms of variceal screening, last EGD was in October 2021. Will need a repeat EGD next number. He also reports having partial colectomy for large polyp at [facility] 5-6 years ago, followed by surveillance colonoscopies. Per documentation, last colonoscopy was in 2019. Will need records. Ultrasound abdomen is scheduled for later this month. Alk-phos remains high, albeit lower than what it has been in the past. Will check an AFP with the next labs. 04/05/22: Presents today with his sister. Reports occasional step up with alcohol. Most recent drink was last night, had 3 drinks of vodka. Trying to quit alcohol on his own, has not discussed pharmacological and nonpharmacological therapies for this. Also is not interested in support groups are AA meetings. Continues to smoke 3-4 cigarettes a day. Is more cognizant of sodium restriction, and tries to review every nutrition label when he gets the food. Shortness of breath is persistent, but has not worsened. He has not needed repeat thoracentesis ever since up titration of diuretics. Currently on Lasix 120 mg and spironolactone [address] Alvarez in pulmonology, but has not had a follow-up, as he did had an unpleasant experience with one of the office members when he was trying to reschedule an appointment and has not call them again since then. As mentioned his last visit as well, endorses numbness and paresthesias of his feet. Had seen a neurologist at one point and was told this was due to alcohol use. B12 level is high, tells me he has stopped taking the supplement. Records from [facility] were also reviewed. Last colonoscopy was in 2019 and had 1 subcentimeter tubular adenoma in the left colon. Will be due in 5 years from then. To recall, he also has a history of advanced adenoma for which he underwent right colectomy around 2016 (per patient's report). 05/2022: Hospital admission for abd pain, left AMA. 08/01/22: Reports no abd complaints to include abd pain, N,V. Had been taking lasix 80 and spironolactone 200 the past month and dose was just corrected last week to lasix 120 and spironolactone 300. Feels distention has not gotten worse since adjusting it. Shortness of breath persistent but reports takes a lot to get winded compared to before. Last thoracentesis 07/12/22. Continues to drink etOH. Last etOH 2 days ago and then a week before that. VOdka with diet coke. Quit smoke just last week. Has been taking buproprion to help with cravings. Still adding salt to diet, thought he should increase intake since he had low sodium in the hospital back in May. 12/05/22: Had hospitalisation last week for anemia 2/2 variceal bleeding s/p EVBL (Dr Santo). He was also referred for TIPS by him. For some reason did not get carvedilol started in house. Also was not aware to cont taking lactulose. Reports disturbance in sleep wake cycle and mood. Otherwise no abd pain, diarrhea, stools are well formed and brown. Has been abstinent from etOH per his report x 2 months. Current meds: Lasix 120 Spironolactone 300 Rifaximin 550 BID Salt restriction continues to be a barrier. Cont to eat hot dogs, hamburgers etc. Not checking nutritional labels. 02/02/23: EGD: Small esophageal varices Post-banding ulcer Portal hypertensive gastropathy Portal hypertensive duodenopathy 02/05/23: Reports having 12oz x5 beers over the weekend. Has also been noticing increased ascites and thinks that may have been due to missed doses in the last couple of weeks. Has been working on salt restriction. Weight is up from 234# dry weight to 244# today. BP noted to be low today. Took 6.25 coreg yest AM and then 12.5 coreg in PM yest. Does not have any lightheadedness or dizziness but does feel more tired this morning. ON LICENSE OF [facility] Medical History Alcohol use disorder, moderate, dependence Alcoholism Chronic abdominal pain Cirrhosis Decompensation of cirrhosis of liver Diabetes Dyspnea Elevated LFTs Esophageal varices GERD (gastroesophageal reflux disease) Gout Hydropneumothorax Pericardial effusion Peripheral neuropathy Pleural effusion Pleural effusion on right Recurrent left pleural effusion Tachycardia Surgical History H/O cervical spine surgery H/O colonoscopy H/O hemicolectomy History of thoracentesis Hx of esophagogastroduodenoscopy Family History Mother Cancer Sister Cancer Social History Household Members: Other Household Members Other:: roommate Housing: House Do you presently have visiting nurse or other home services: No Alcohol intake: current Alcohol type: hard liquor Patient Tobacco Use Status: Former Tobacco user Quit Date: 1 mth ago Tobacco use type: Cigarette Years Smoked: 30 e-Cigarette/Vaping Use: Currently Using Second Hand Smoke Exposure: No Substance Use Type: Marijuana Advance Directives Date on File: 11/27/22 service: No Current occupational status: unemployed Review of Systems Const All systems reviewed & are unremarkable except as noted in HPI and below Physical Exam Vital Signs: Last Vital Signs Pulse 87 02/05/23 09:30 BP 94/57 L 02/05/23 09:30 BMI result Body Mass Index 29.0 Gen Appear: NAD HEENT: No scleral icterus Chest: CTA CVS: Regular S1/S2 no murmurs Abd: soft, nontender, mildly distended, shifting dullness to percussion, bowel sounds active Ext: No peripheral edema bilaterally Neuro: A/Ox3, no asterixis Assessment & Plan Assessment & Plan (1) Decompensation of cirrhosis of liver: Code(s): K72.90 - Hepatic failure, unspecified without coma; K74.60 - Unspecified cirrhosis of liver (2) Hydrothorax: Code(s): J94.8 - Other specified pleural conditions (3) Alcohol use disorder, severe, in early remission: Code(s): F10.21 - Alcohol dependence, in remission (4) Multiple adenomatous polyps: Code(s): D36.9 - Benign neoplasm, unspecified site (5) Smoker: Code(s): F17.200 - Nicotine dependence, unspecified, uncomplicated Plan -Severe alcohol use disorder -Decompensated Cirrhosis (bleeding esophageal varices 11/2022, ascites, hepatic hydrothorax, hepatic encephalopathy MELD-Na 17 (11/2022 labs) Child St Class C Discussed with the pt to strongly consider follow up with addiction medicine to help with etOH use disorder treatment. Reminded that ongoing etOH use is leading to progression of liver disease. Needs to demonstrate at least 3-6 months of sobriety for transplant evaluation. He was also advised that while a referral has been placed for ? TIPS candidacy by Dr Santo (who saw the pt in the hospital), hx of hepatic encephalopathy may be a limiting factor. - Alcohol use disorder: Most recent drink 2 DAYS ago - Had a PETH of 810 in November 2022. Again counseled extensively on etOH cessation. However pt feels that he is not quite there yet. Declines follow up with Addiciton medicine at this time. - Ascites and Peripheral Edema: Has moderate NON-tense ascites on exam today. Encouraged compliance with diuertics. INCREASE Lasix to 160mg and aldactone to 400mg. Encouraged compliance with the meds. Repeat BMP and urine lytes in 10 days. Echocardiogram with bubble study ordered. ? - Hepatic encephalopathy: No HE on exam today. Cont lactulose titrated to 2-3 soft bowel movements. Cont Rifaximin. ? - Secondary prophylaxis for gastroesophageal varices: He is status post endoscopic variceal band ligation (EVBL) for BLEEDING large varices most recently in 01/16/23 with complete obliteration noted on 02/02/23 EGD. - Repeat EGD to be booked in 3-6 months - Carvedilol DECREASED to 6.25mg BID due to BP and uptitration of diuretics today. ? - HCC screening: Most recent ultrasound abdomen was in November 2022. Cirrhotic changes with patent PV. Next US due 05/2023. Reminder placed. - Vaccinations: Completed twinrix series September 2022. Encouraged to take flu shot when available for this season and covid booster. ? - Nutrition: As aforementioned, encouraged low salt diet and 'good' proteins (BCAA) such as eggs, milk, taiwanese yogurt, fish, chicken etc; avoid long periods of fasting. ? - Risk of NSAIDs: NSAIDs should be completely avoided to prevent GIB and renal injury. Tylenol is okay as long as not exceeded by 2g/day. - Personal hx of high risk polyps: Due for colonoscopy 2024. Follow up in 3 months Orders: Orders CA echo transthoracic complete Today J90 - Pleural effusion, not elsewhere classified Marcia Hawk MD Potassium Urine Random Today Z79.899 - Other terminal manager (current) drug therapy Marcia Hawk MD Sodium Urine Random Today Z79.899 - Other terminal manager (current) drug therapy Marcia Hawk MD Basic Metabolic Panel Today Z79.899 - Other custodial (current) drug therapy Marcia Hawk MD Medications: Changed From carvedilol must administer with a meal/food 12.5 mg PO BID 90 days 180 tabs 2RF To carvedilol must administer with a meal/food 6.25 mg PO BID 90 days 180 tabs 2RF Marcia Hawk MD From spironolactone 300 mg (3 x 100 mg) PO DAILY 90 tabs 2RF To spironolactone 400 mg (4 x 100 mg) PO DAILY 90 tabs 2RF Marcia Hawk MD From furosemide 120 mg (3 x 40 mg) PO DAILY 90 tabs 3RF To furosemide 160 mg (4 x 40 mg) PO DAILY 90 tabs 3RF Marcia Hawk MD Discontinued insulin glargine 20 units (0.2 mL) subcut QAM 15 mL 2RF [facility] sucralfate (Carafate) 10 mL PO QID 560 mL 0RF 2 weeks Marcia Hawk MD furosemide 120 mg (3 x 40 mg) PO DAILY 90 tabs 2RF 30 days Cassandra Crystal [facility] Patient Instructions: Please note the following changes to your medications: - INCREASE lasix to 160 mg once daily in the morning - INCREASE spironolactone to 400mg once daily in the morning - DECREASE carvedilol back to 6.25mg twice a day - You may DISCONTINUE carafate - You will be due for labs next week, try to get these done by 02/14. - Please weigh yourself daily - if you gain 3 lbs in 2 days or 5 lbs in a week, please call our office Coding Level of Care Code Est Pt Level 5 (23342) Diagnoses Decompensation of cirrhosis of liver K72.90; K74.60 Hydrothorax J94.8 Alcohol use disorder, severe, in early remission F10.21 Multiple adenomatous polyps D36.9 Smoker F17.200
[2023-02-05 09:30] VITALS: BP 94/57; PULSE 87; BMI 29.0
[2023-02-05 10:11] VITALS: BP 113/73; PULSE 85
== END 2023-02-05 10:12 | disposition home or self-care (01) ==
PROVIDERS: PCP Internal Medicine; Visit Provider Internal Medicine
DX: K72.90 Hepatic failure, unspecified without coma (principal); K74.60 Unspecified cirrhosis of liver; Z86.010 Personal history of colon polyps; F10.21 Alcohol dependence, in remission; F17.210 Nicotine dependence, cigarettes, uncomplicated
CPT/HCPCS: 99214

== ENCOUNTER → 2023-02-05 09:26 | Outpatient (BNVA) | payer MEDICAID, SELFPAY | PROVIDERS: PCP Internal Medicine; Visit Provider Internal Medicine | DX: F10.20 Alcohol dependence, uncomplicated (principal); K74.60 Unspecified cirrhosis of liver; J94.8 Other specified pleural conditions; D36.9 Benign neoplasm, unspecified site; F17.210 Nicotine dependence, cigarettes, uncomplicated; Z79.899 Other long term (current) drug therapy | CPT/HCPCS: 99212 ==

== ENCOUNTER 2023-02-14 13:24 | Outpatient (REF) | payer MEDICAID, SELFPAY ==
[2023-02-14 14:58] LABS: Blood Urea Nitrogen 33 mg/dL (9-16); Calcium 11.5 mg/dL (8.4-10.2); Estimated Glomerular Filt Rate 40; Glucose Random 153 mg/dL (60-115)
[2023-02-14 15:11] LABS: Anion Gap 17 (12-20); Carbon Dioxide 26 mmol/L (22-29); Chloride 96 mmol/L (96-108); Sodium 133 mmol/L (135-145)
[2023-02-14 16:01] LABS: Potassium Urine Random 47.2 mmol/L
== END 2023-02-14 13:25 | disposition home or self-care (01) ==
LOC: HO.LAB 13:24
PROVIDERS: PCP Internal Medicine; Visit Provider Internal Medicine
DX: Z79.899 Other long term (current) drug therapy (principal)
CPT/HCPCS: 36415; 80048; 84133; 84300

== ENCOUNTER 2023-02-14 15:34 | Inpatient (IN) | payer MEDICAID, SELFPAY ==
[2023-02-14 15:38] VITALS: BP 125/75; PULSE 90; RESP 17; TEMP 36.4; O2SAT 99; BMI 27.1
--- NOTE | 2023-02-14 15:41 | ED.GENADULT ---
HPI - General Adult General Chief complaint: Recheck/Abnormal Lab/Rx Stated complaint: Potassium High sent by Dr Murray Seen by Provider: 02/14/23 15:59 Source: patient Mode of arrival: ambulatory Limitations: no limitations History of Present Illness HPI narrative: Patient is a 57-year-old male who presents to the emergency department by recommendation of Gastroenterology; Dr. Hawk, patient had outpatient lab work done today for re-evaluation after recent medication changes. He was advised that his potassium was high and his kidney function was abnormal. When asked, he states that he typically has dizziness at baseline, today it did feel slightly worse than normal, and reports feeling tired yesterday and today, otherwise he endorses no additional complaints. Related Data Home Medications Medication Instructions Recorded Confirmed bupropion HCl 300 mg 24 hr tablet, 300 mg PO DAILY 06/10/21 02/14/23 extended release folic acid 1 mg tablet 1 mg PO DAILY 06/10/21 02/14/23 thiamine HCl (vitamin B1) 100 mg 100 mg PO DAILY 06/10/21 02/14/23 tablet albuterol sulfate 90 mcg/actuation 1 - 2 puff inhalation Q4-6H PRN 01/26/22 02/14/23 aerosol inhaler (ProAir HFA) Shortness Of Breath hydroxyzine pamoate 25 mg capsule 25 - 50 mg PO DAILY itching 01/26/22 02/14/23 lorazepam 0.5 mg tablet 0.5 mg PO DAILY PRN anxiety attack 07/13/22 02/14/23 omeprazole 40 mg capsule,delayed 40 mg PO DAILY@0630 07/13/22 02/14/23 release paroxetine HCl 20 mg tablet 20 mg PO DAILY 07/13/22 02/14/23 insulin glargine 100 unit/mL (3 20 - 30 unit subcut QAM 11/27/22 02/14/23 mL) subcutaneous pen meclizine 12.5 mg tablet 12.5 mg PO TID PRN Dizziness 02/14/23 02/14/23 Previous Rx's Medication Instructions Recorded rifaximin 550 mg tablet (Xifaxan) 550 mg PO BID #60 tabs 08/31/22 blood sugar diagnostic (FreeStyle #100 ea 10/30/22 Lite Strips) blood-glucose meter (FreeStyle #1 ea 05/08/23 Lite Meter kit) insulin lispro 100 unit/mL See Protocol subcut QIDACHS #15 mL 10/30/22 subcutaneous pen lancets #200 ea 10/30/22 ondansetron 4 mg disintegrating 4 mg PO Q8H PRN nausea and 10/30/22 tablet vomiting #14 tabs pen needle, diabetic 31 gauge x #1,200 ea 10/31/22 5/16 (Pen Needle) oxycodone 5 mg tablet 5 mg PO Q6H PRN pain #10 tabs 11/27/22 lactulose 10 gram/15 mL oral 30 ml PO TID 30 days #2,700 mL 12/05/22 solution Allergies Allergy/AdvReac Type Severity Reaction Status Date / Time No Known Drug Allergies Allergy Mild NONE Verified 02/05/23 09:30 [NO KNOWN DRUG ALLERGIES] Review of Systems Review of Systems: Constitutional: No weight loss. No fever. No chills. No weakness. Positive fatigue. Eye: No swelling. No redness. ENT: No sore throat. No rhinorrhea. No nasal congestion. No sore throat. No difficulty swallowing. Skin: No rash. No itching. Cardiovascular: No chest pain. No chest pressure. No palpitations. No pedal edema. Respiratory: No shortness of breath. No cough. No sputum production. Gastrointestinal: No anorexia. No nausea. No vomiting. No diarrhea. No abdominal pain. No blood in stool. Genitourinary: No burning micturition. No urinary frequency. No incontinence. Neurologic: No headache. Positive dizziness. No pre-syncope/ syncope. No unilateral weakness. No ataxia. No numbness. No tingling. No change in bowel or bladder control. Musculoskeletal: No muscle pain. No back pain. No joint pain. No stiffness. Hematologic: No bleeding. No bruising. Yes all other systems are reviewed and are negative PMFSH Past Medical History Attestation statement: The following information was validated with the patient. Source: old records reviewed Medical History Alcohol use disorder, moderate, dependence Alcoholism Chronic abdominal pain Cirrhosis Decompensation of cirrhosis of liver Diabetes Dyspnea Elevated LFTs Esophageal varices GERD (gastroesophageal reflux disease) Gout Hydropneumothorax Pericardial effusion Peripheral neuropathy Pleural effusion Pleural effusion on right Recurrent left pleural effusion Tachycardia Surgical History H/O cervical spine surgery H/O colonoscopy H/O hemicolectomy History of thoracentesis Hx of esophagogastroduodenoscopy Family History Family History Mother Cancer Sister Cancer Social History Social History Household Members: Other Household Members Other:: roommate Housing: House Do you presently have visiting nurse or other home services: No Alcohol intake: current Alcohol intake frequency: a few times a week Alcohol type: hard liquor Patient Tobacco Use Status: Former Tobacco user Quit Date: 1 mth ago Tobacco use type: Cigarette Years Smoked: 30 e-Cigarette/Vaping Use: Currently Using Second Hand Smoke Exposure: No Substance Use Type: Marijuana Advance Directives: Yes Advance Directives on File: Yes Advance Directives Date on File: 11/27/22 service: No Current occupational status: unemployed Physical Exam ED Vital Signs: Vital Signs - 24 hr 02/14/23 15:38 02/14/23 17:06 02/14/23 18:36 Temperature 97.6 F 98.3 F Pulse Rate 90 89 90 Respiratory Rate 17 18 15 Blood Pressure 125/75 125/88 115/80 Pulse Oximetry 99 99 98 Oxygen Delivery Method Room Air Room Air Room Air 02/14/23 21:03 Temperature Pulse Rate 85 Respiratory Rate 19 Blood Pressure 126/88 Pulse Oximetry 99 Oxygen Delivery Method Room Air BMI result Body Mass Index 27.1 Appearance: Alert.?Oriented to person, place and time. No acute distress.?Normal affect. Eyes: Pupils equal, round and reactive to light.?scleral icterus ENT: Pharynx normal.?? Neck: Normal inspection.? Neck supple.?? CVS: Heart sounds normal. Normal heart rate and rhythm.? Pulses normal.?? Respiratory: No respiratory distress.? Lung sounds clear to auscultation bilaterally?? Abdomen: Soft mild distension.. Normoactive bowel sounds. No pulsatile mass.?? Skin: Skin warm and dry.? Jaundice??? Extremities: No lower extremity edema.? Neuro: Moves all extremities spontaneously. Sensation intact bilaterally. CN II-XII intact. No focal neuro deficits. Ambulates with normal steady gait. Course Course Course Narrative: RME- 57-year-old male presents for evaluation of ?my GI doctor, Dr Hawk did blood work 2 hours ago and called me to tell me that my potassium was high and my kidneys were not doing well. Patient's potassium is 6.0, creatinine is 1.76 which is approximately double baseline. Plan for EKG Reevaluation(s) Reevaluation #1: EKG without acute ischemic findings, notable peaked T-waves, without flat and P wave, without prolonged OH interval or prolonged QRS. I consulted with Gastroenterology; Dr. Hawk, who advises that if patient is able to be discharged today, he is to hold his diuretics until Sunday02/19/23 and have a repeat BMP that day. Time: 16:38 Reevaluation #2: CBC is without leukocytosis, baseline anemia not meeting any transfusion criteria. Repeat BMP revealing worsening hyponatremia with sodium of 129, high normal potassium, increased creatinine. Hyponatremia and TORSTEN likely due to hypovolemia with diuretic usage. Patient to receive 1 L normal saline, and will repeat serum labs Time: 16:53 Reevaluation #3: Hyponatremia Na care without significant improvement after 1 L normal saline. I consulted with Nephrology; Dr. Mcguire who recommends p.o. fluid restriction of 1500 mL and repeat serum labs in the morning. Consulted with hospitalist Service; patient accepted for admission to medicine service under Dr. Chahal. Medications Administered Discontinued Medications Generic Name Dose Route Start Last Admin Trade Name Freq PRN Reason Stop Dose Admin Sodium Chloride 1,000 mls @ 999 mls/hr 02/14/23 16:45 02/14/23 18:13 Ns IV 02/14/23 17:45 Infused .Q1H1M RYAN Infusion Oxycodone HCl 5 mg 02/14/23 17:19 02/14/23 17:28 Oxycodone Hcl Immed Release 5 Mg Tablet PO 02/14/23 17:20 5 mg ONCE ONE Administration Medical Decision Making Medical Decision Making MDM Narrative: Patient is a 57-year-old male with past medical history of severe 80 OH use disorder, cirrhosis, portal hypertension, esophageal varices, ascites, main portal vein thrombosis not on anticoagulation, GERD, gout, pericardial effusion presenting to the emergency department today for evaluation of abnormal labs; hyperkalemia and TORSTEN. He is overall well-appearing, nontoxic, afebrile. Back your experiences dizziness at baseline which is slightly increased by his account and has been increasingly tired over the past 2 days. Of note he did have recent medication changes; upon review of Gastroenterology note Dr. Hawk 02/05/23 furosemide was increased from 120 mg to 160 mg, and Aldactone was increased from 300 mg to 400 mg. Will obtain EKG, repeat labs, and treatment accordingly. Differential Diagnosis Differential Diagnoses: The differential diagnosis associated with the presentation includes (Acute kidney failure, dehydration, medication adverse effect) Admission/Observation Consideration of admission/observation: Escalation of care including admission/observation considered (I considered admission for abnormal labs, see course narrative for further detail) Consult Healthcare Provider Management of the patient was discussed with: Gas Regulator Repairer (Gastroenterology; see course narrative) Lab Data MDM Lab Attestation statement: I reviewed the patient's lab results. (See course narrative for further detail) 02/14/23 16:20 02/14/23 16:20 Labs: Lab Results 02/14/23 02/14/23 02/14/23 Range/Units 16:20 16:20 16:20 WBC 10.4 (4.8-10.8) X10*3/uL RBC 4.47 L D (4.60-5.80) X10*6/uL Hgb 11.8 L D (14.0-18.0) g/dl Hct 37.0 L D (42.0-52.0) % MCV 82.8 (80.0-98.0) fL MCH 26.4 L (27.0-33.0) pg MCHC 31.9 (31.0-36.0) g/dl RDW 16.1 H (11.0-16.0) % Plt Count 315 D (160-400) X10*3/uL MPV 9.1 L (9.4-12.4) fL Immature Gran % (Auto) 0.6 H (0.0-0.4) % Neut % (Auto) 71.5 (45-73) % Lymph % (Auto) 12.4 L (20-40) % Gentry % (Auto) 12.7 H (2-11) % Eos % (Auto) 1.5 (0-4) % Baso % (Auto) 1.3 (0-2) % Lymph # (Auto) 1.3 (1.2-4.9) X10*3/uL Gentry # (Auto) 1.3 H (0.1-1.2) X10*3/uL Eos # (Auto) 0.2 (0.0-0.4) X10*3/uL Baso # (Auto) 0.1 (0.0-0.2) X10*3/uL Abs Immat Gran (auto) 0.06 H (0.00-0.03) X10*3/uL Absolute Neuts (auto) 7.5 (2.0-8.3) x10*3/uL Absolute Nucleated RBC 0.000 (0.0-0.012) X10*3/uL Nucleated RBC % (auto) 0.0 (0.0-0.2) /100WBC Sodium 129 L (135-145) mmol/L Potassium 5.1 (3.3-5.1) mmol/L Chloride 95 L (96-108) mmol/L Carbon Dioxide 24 (22-29) mmol/L Anion Gap 15 (12-20) BUN 33 H (9-16) mg/dL Creatinine 1.85 H (0.5-1.4) mg/dL Estim Creat Clear Calc 56.8 Estimated GFR 38 Random Glucose 184 H (60-115) mg/dL Calcium 10.8 H D (8.4-10.2) mg/dL Magnesium 2.2 (1.6-2.6) mg/dL Total Bilirubin 3.4 H (0.0-1.0) mg/dL AST 46 H (5-37) U/L ALT 26 (0-40) U/L Alkaline Phosphatase 254 H (39-117) U/L Troponin I High Sens < 2.7 (<3.5-35.0) ng/L Total Protein 9.7 H (6.5-8.0) g/dL Albumin 3.8 (3.5-5.0) g/dL 02/14/23 Range/Units 18:43 WBC (4.8-10.8) X10*3/uL RBC (4.60-5.80) X10*6/uL Hgb (14.0-18.0) g/dl Hct (42.0-52.0) % MCV (80.0-98.0) fL MCH (27.0-33.0) pg MCHC (31.0-36.0) g/dl RDW (11.0-16.0) % Plt Count (160-400) X10*3/uL MPV (9.4-12.4) fL Immature Gran % (Auto) (0.0-0.4) % Neut % (Auto) (45-73) % Lymph % (Auto) (20-40) % Gentry % (Auto) (2-11) % Eos % (Auto) (0-4) % Baso % (Auto) (0-2) % Lymph # (Auto) (1.2-4.9) X10*3/uL Gentry # (Auto) (0.1-1.2) X10*3/uL Eos # (Auto) (0.0-0.4) X10*3/uL Baso # (Auto) (0.0-0.2) X10*3/uL Abs Immat Gran (auto) (0.00-0.03) X10*3/uL Absolute Neuts (auto) (2.0-8.3) x10*3/uL Absolute Nucleated RBC (0.0-0.012) X10*3/uL Nucleated RBC % (auto) (0.0-0.2) /100WBC Sodium 130 L (135-145) mmol/L Potassium 5.1 (3.3-5.1) mmol/L Chloride 97 (96-108) mmol/L Carbon Dioxide 23 (22-29) mmol/L Anion Gap 15 (12-20) BUN 32 H (9-16) mg/dL Creatinine 1.73 H (0.5-1.4) mg/dL Estim Creat Clear Calc 60.8 Estimated GFR 41 Random Glucose 110 (60-115) mg/dL Calcium 10.0 D (8.4-10.2) mg/dL Magnesium (1.6-2.6) mg/dL Total Bilirubin (0.0-1.0) mg/dL AST (5-37) U/L ALT (0-40) U/L Alkaline Phosphatase (39-117) U/L Troponin I High Sens (<3.5-35.0) ng/L Total Protein (6.5-8.0) g/dL Albumin (3.5-5.0) g/dL Independent Interpretation I performed an independent interpretation of an: EKG Interpretation: Rate:89 Rhythm:? Normal sinus rhythm Normal P waves.? Normal REAGAN.?? Normal QRS complex.?? ST T wave :??No ST elevation, no ST depression, no T-wave inversion, peaked T-waves qTC: 433 prior studies:?November 2022 The study has been interpreted contemporaneously by me. Discharge Plan Discharge Clinical Impression: Hyponatremia, Acute kidney injury Patient Disposition: Admitted As Inpatient
--- NOTE | 2023-02-14 15:44 | ECG_ITS ---
Test Reason : high potassium Blood Pressure : / mmHG Vent. Rate : 089 BPM Atrial Rate : 089 BPM P-R Int : 176 ms QRS Dur : 084 ms QT Int : 356 ms P-R-T Axes : 066 046 046 degrees QTc Int : 433 ms Normal sinus rhythm Cannot rule out Anterior infarct , age undetermined Abnormal ECG When compared with ECG of 27-NOV-2022 18:56, Vent. rate has decreased BY 45 BPM T wave amplitude has increased in Lateral leads Referred By: Lenard Britton Electronically Signed By:LINDA SANDERS
[2023-02-14 16:24] LABS: MANUAL DIFF FLAG NO
[2023-02-14 16:26] LABS: Basophils Absolute Auto 0.1 X10*3/uL (0.0-0.2); Basophils Percent Auto 1.3 % (0-2); Eosinophils Absolute Auto 0.2 X10*3/uL (0.0-0.4); Eosinophils Percent Auto 1.5 % (0-4); Hemoglobin 11.8 g/dl (14.0-18.0); Imm Gran Abs Auto 0.06 X10*3/uL (0.00-0.03); Imm Gran Pct Auto 0.6 % (0.0-0.4); Lymphocytes Absolute Auto 1.3 X10*3/uL (1.2-4.9); Lymphocytes Percent Auto 12.4 % (20-40); Mean Corpuscular HGB Conc 31.9 g/dl (31.0-36.0); Mean Corpuscular Hemoglobin 26.4 pg (27.0-33.0); Mean Corpuscular Volume 82.8 fL (80.0-98.0); Mean Platelet Volume 9.1 fL (9.4-12.4); Monocytes Absolute Auto 1.3 X10*3/uL (0.1-1.2); Monocytes Percent Auto 12.7 % (2-11); Neutrophils Absolute Auto 7.5 x10*3/uL (2.0-8.3); Neutrophils Percent Auto 71.5 % (45-73); Platelet Count 315 X10*3/uL (160-400); Red Blood Count 4.47 X10*6/uL (4.60-5.80); Red Cell Distribution Width 16.1 % (11.0-16.0); White Blood Count 10.4 X10*3/uL (4.8-10.8)
--- NOTE | 2023-02-14 16:29 | PC.NURSE ---
alert and oriented, respirations even and unlabored. pt coming from home for hyperkalemia, pt offering no complaints at this time. iv established, labs drawn and sent. pt resting comfortably at this time.
[2023-02-14 16:42] LABS: Alanine Aminotransferase 26 U/L (0-40); Albumin Level 3.8 g/dL (3.5-5.0); Alkaline Phosphatase 254 U/L (39-117); Anion Gap 15 (12-20); Aspartate Amino Transferase 46 U/L (5-37); Bilirubin Total 3.4 mg/dL (0.0-1.0); Blood Urea Nitrogen 33 mg/dL (9-16); Calcium 10.8 mg/dL (8.4-10.2); Carbon Dioxide 24 mmol/L (22-29); Chloride 95 mmol/L (96-108); Creatinine Clr Calc Pharmacy 56.8; Estimated Glomerular Filt Rate 38; Glucose Random 184 mg/dL (60-115); Magnesium 2.2 mg/dL (1.6-2.6); Potassium 5.1 mmol/L (3.3-5.1); Sodium 129 mmol/L (135-145); Total Protein 9.7 g/dL (6.5-8.0)
[2023-02-14 16:49] LABS: Troponin-I High Sensitivity < 2.7 ng/L (<3.5-35.0)
[2023-02-14 17:06] VITALS: BP 125/88; PULSE 89; RESP 18; TEMP 36.8; O2SAT 99
[2023-02-14] MEDS: 0.9 % Sodium Chloride 1,000 ML 999 ML IV (17:12)
--- NOTE | 2023-02-14 17:12 | PC.NURSE ---
plan for repeat bmp after liter of normal saline has infused.
[2023-02-14] MEDS: oxyCODONE HCl Immed Release 5 MG TABLET PO ×2 (17:28→22:47)
[2023-02-14 18:36] VITALS: BP 115/80; PULSE 90; RESP 15; O2SAT 98
[2023-02-14 19:05] LABS: Anion Gap 15 (12-20); Blood Urea Nitrogen 32 mg/dL (9-16); Carbon Dioxide 23 mmol/L (22-29); Chloride 97 mmol/L (96-108); Creatinine Clr Calc Pharmacy 60.8; Estimated Glomerular Filt Rate 41; Glucose Random 110 mg/dL (60-115); Potassium 5.1 mmol/L (3.3-5.1); Sodium 130 mmol/L (135-145)
--- NOTE | 2023-02-14 19:15 | PC.NURSE ---
Pt aox4 resting at the bedside. No apparent distress noted. Reports chronic LUQ pain, 12/02. VSS. Pending disposition. Pt aware of plan of care.
--- NOTE | 2023-02-14 20:38 | P.HPHOSP_ITS ---
Patient seen and examined at bedside. Completely rude and irritable. Patient here with abnormal labs concerning for hyponatremia, hyperkalemia, TORSTEN after significant increase in his diuretics by history eye doctor. Patient will be admitted, after speaking to Nephrology patient will be placed on fluid restriction 1500 cc a day. I agree with a PP note assessment and plan. For full H&P see below History of Present Illness Date of Service: 02/14/23 Attending physician on admission: Prateek Chahal Chief Complaint: Hyponatremia, OTRSTEN Pt is a 57-year-old male with a PMH significant for?insulin-dependent diabetes type 2, alcohol use disorder with alcoholic liver cirrhosis, esophageal varices, portal hypertension, ascites, main portal vein thrombosis currently not on anticoagulation, GERD, and COPD who presents to the ED by recommendation of Dr. Hawk from Gastroenterology. Patient had outpatient lab work completed for routine monitoring after furosemide was increased to 160 mg daily and spironolactone to 400 mg daily which found elevated potassium and creatinine. Patient has chronic lightheadedness and dizziness, but states these were worse yesterday and today. Also states chronic shortness of breath worse the past week even though he lost 20 lb after increasing diuretics. Patient otherwise has no acute medical complaints. Chronic headache at baseline. Chronic left- sided abdominal pain at baseline. ?Denies nausea, vomiting. No chest pain/pressure, palpitations. Denies lower leg edema. No abdominal swelling or distention. Gastroenterology was consulted and recommended patient hold all diuretics until Sunday and then repeat labs outpatient early next week. In the ED labs were significant for H&H of 11.8/37.0, sodium of 129, potassium of 6.0 with repeat 5.1, BUN 33, creatinine 1.85, bilirubin 3.4, AST 46, alk-phos 254. EKG demonstrated normal sinus rhythm without evidence of ST elevations or depressions. Pt was treated with oxycodone and IVF. Pt will be admitted to the hospital for treatment and further evaluation of hyponatremia, hyperkalemia, and TORSTEN. Review of Systems Review of Systems: Increased lightheadedness and dizziness Increasing shortness of breath Chronic headache at baseline Chronic left-sided abdominal pain at baseline Denies nausea, vomiting No chest pain/pressure, palpitations [facility] Medical History Alcohol use disorder, moderate, dependence Alcoholism Chronic abdominal pain Cirrhosis Decompensation of cirrhosis of liver Diabetes Dyspnea Elevated LFTs Esophageal varices GERD (gastroesophageal reflux disease) Gout Hydropneumothorax Pericardial effusion Peripheral neuropathy Pleural effusion Pleural effusion on right Recurrent left pleural effusion Tachycardia Family History Mother Cancer Sister Cancer Surgical History H/O cervical spine surgery H/O colonoscopy H/O hemicolectomy History of thoracentesis Hx of esophagogastroduodenoscopy Social History Household Members: Other Household Members Other:: roommate Housing: House Do you presently have visiting nurse or other home services: No Alcohol intake: current Alcohol intake frequency: a few times a week Alcohol type: hard liquor Patient Tobacco Use Status: Former Tobacco user Quit Date: 1 mth ago Tobacco use type: Cigarette Years Smoked: 30 e-Cigarette/Vaping Use: Currently Using Second Hand Smoke Exposure: No Substance Use Type: Marijuana Advance Directives Date on File: 11/27/22 service: No Current occupational status: unemployed Meds Allergies Allergy/AdvReac Type Severity Reaction Status Date / Time No Known Drug Allergies Allergy Mild NONE Verified 02/05/23 09:30 [NO KNOWN DRUG ALLERGIES] Home Medications Medication Instructions Recorded Confirmed Last Taken Type bupropion HCl 300 mg 24 hr tablet, 300 mg PO DAILY 06/10/21 02/14/23 02/14/23 History extended release folic acid 1 mg tablet 1 mg PO DAILY 06/10/21 02/14/23 02/14/23 History thiamine HCl (vitamin B1) 100 mg 100 mg PO DAILY 06/10/21 02/14/23 02/14/23 History tablet albuterol sulfate 90 mcg/actuation 1 - 2 puff inhalation Q4-6H PRN 01/26/22 02/14/23 Unknown History aerosol inhaler (ProAir HFA) Shortness Of Breath hydroxyzine pamoate 25 mg capsule 25 - 50 mg PO DAILY itching 01/26/22 02/14/23 02/14/23 History lorazepam 0.5 mg tablet 0.5 mg PO DAILY PRN anxiety attack 07/13/22 02/14/23 0 10/27/22 History omeprazole 40 mg capsule,delayed 40 mg PO DAILY@0630 07/13/22 02/14/23 02/14/23 History release paroxetine HCl 20 mg tablet 20 mg PO DAILY 07/13/22 02/14/23 02/14/23 History insulin glargine 100 unit/mL (3 20 - 30 unit subcut QAM 11/27/22 02/14/23 02/14/23 History mL) subcutaneous pen meclizine 12.5 mg tablet 12.5 mg PO TID PRN Dizziness 02/14/23 02/14/23 Unknown History Physical Exam Vital Signs and Narrative: Vital Signs: Last Vital Signs Temp 98.3 F 02/14/23 17:06 Pulse 90 02/14/23 18:36 Resp 15 02/14/23 18:36 BP 115/80 02/14/23 18:36 Pulse Ox 98 02/14/23 18:36 O2 Del Method Room Air 02/14/23 18:36 BMI result Body Mass Index 27.1 Constitutional: Alert, in no acute distress. Mental Status: Oriented to person, place and time. Eyes: Pupils are equal, round, and reactive to light. Ear, Nose, and Throat: Oropharynx clear, mucous membranes moist. Ears and nose without deformities. Trachea midline. Respiratory: Clear to auscultation bilaterally. No wheezing, rales, or rhonchi. Cardiovascular: S1, S2 regular. No murmurs, rubs, or gallops. Gastrointestinal: Abdomen soft, non-distended, with mild right-sided tenderness. Normal bowel sounds. Neurologic: Cranial nerves II-XII are grossly intact bilaterally. No focal neurological deficits. Moves all extremities spontaneously. Skin: No rashes or lesions noted. Musculoskeletal: No cyanosis or clubbing. Extremities: No edema. Psychiatric: Irritable, combative at times. Results Labs 02/14/23 16:20 02/14/23 18:43 Labs: Laboratory Results - last 24 hr 02/14/23 02/14/23 02/14/23 16:20 16:20 18:43 MCV 82.8 MCH 26.4 L MCHC 31.9 RDW 16.1 H Plt Count 315 D MPV 9.1 L Immature Gran % (Auto) 0.6 H Neut % (Auto) 71.5 Lymph % (Auto) 12.4 L Calhoun % (Auto) 12.7 H Eos % (Auto) 1.5 Baso % (Auto) 1.3 Lymph # (Auto) 1.3 [place]oun # (Auto) 1.3 H Eos # (Auto) 0.2 Baso # (Auto) 0.1 Abs Immat Gran (auto) 0.06 H Absolute Neuts (auto) 7.5 Absolute Nucleated RBC 0.000 Nucleated RBC % (auto) 0.0 Anion Gap 15 15 Estim Creat Clear Calc 56.8 60.8 Estimated GFR 38 41 Random Glucose 184 H 110 Calcium 10.8 H D 10.0 D Magnesium 2.2 Total Bilirubin 3.4 H AST 46 H ALT 26 Alkaline Phosphatase 254 H Total Protein 9.7 H Albumin 3.8 Assessment and Plan (1) Hyponatremia: Status: Acute (2) Acute kidney injury: Status: Acute (3) Hyperkalemia: Status: Acute Plan Pt is a 57-year-old male with a PMH significant for?insulin-dependent diabetes type 2, alcohol use disorder with alcoholic liver cirrhosis, esophageal varices, portal hypertension, ascites, main portal vein thrombosis currently not on anti coagulation, GERD, and COPD who presents to the ED by recommendation of Dr. Hawk from Gastroenterology. Patient had outpatient lab work completed for routine monitoring after furosemide was increased to 160 mg daily and spironolactone to 400 mg daily which found elevated potassium and creatinine. Pt will be admitted to the hospital for treatment and further evaluation of hyponatremia, hyperkalemia, and TORSTEN. Abnormal labs Patient with hyponatremia 129, hyperkalemia 6.0, creatinine of 1.85 Likely secondary to recent increase of diuretics Patient given IVF in ED Nephrology consult Will be placed on 1500ml qd fluid restriction Hold diuretics until next Sunday, repeat labs outpatient before resuming per GI Follow BMP Hyperkalemia Potassium 6.0 with repeat 5.1 Continue home lactulose Treat as above Hyponatremia Sodium initially 133 with repeats 129, 130 Treat as above TORSTEN Initial creatinine 1.76 with repeats 1.85 and 1.73 Patient initially given 1 L IVF in ED Treat as above Alcoholic cirrhosis Continue lactulose, rifaximin Insulin-dependent diabetes type 2 Hold home meds Will place on sliding scale insulin, Lantus COPD Not in acute exacerbation Continue home inhalers Dizziness/lightheadedness Continue home meclizine Mood disorder Continue home meds Full Code Attending:?Dr. Chahal DVT Prophylaxis: Lovenox Pt will require a hospitalization of at least two nights for treatment of hyponatremia, hyperkalemia, and TORSTEN. Time Spent With Patient Time: Total time managing care of this patient today ____ minutes. Quality Stroke Does the patient have a stroke diagnosis?: No VTE Prior VTE?: No VTE Risk Level:: Medical - moderate - high VTE Device Contraindication: Treatment Not Indicated VTE Drug Contraindication: N/A - Med Ordered
--- NOTE | 2023-02-14 21:01 | PHA.MEDREC ---
Addendum entered by Cassandra Crystal [facility] 02/15/23 13:04: Re: spironolactone and lasix Dr. Moore states the pt had phone call from GI and was told to stop his meds due to abnormal labs but this information was not relayed during med rec, only that meds were discontinued. Dr. Moore asked for them to be added back to patient home med list. Original Note: Pharmacy Consult ? Medication Reconciliation Pharmacy has completed the medication reconciliation. Patient reports his two diuretics were stop; furosemide and spironlactone. Patient reports his carvidolol was stop (unsure why). Patient has not been able to get Creon, he beleive due to insurance issues. Patient stated he no longer take sucralafte. Reports he has lispro at home, but does not typically need to use it. Snow Gutierrez, PharmD
[2023-02-14 21:03] VITALS: BP 126/88; PULSE 85; RESP 19; O2SAT 99
[2023-02-14 21:50] LABS: Appearance Urine Clear; Color Urine Yellow; Glucose Urine UA Negative (Negative); Leukocyte Esterase Urine Negative (Negative); Nitrite Urine Negative (Negative); PH 5.5 (5.0-9.0); Urine Blood Negative (Negative); Urine Ketones Negative (Negative); Urine Protein Negative (Neg-Trace)
[2023-02-14] MEDS: Enoxaparin Sodium 40 MG/0.4 ML SYRINGE SUBCUT (22:03)
[2023-02-14 22:05] VITALS: BP 142/93; PULSE 83; RESP 15; TEMP 36.8; O2SAT 97
[2023-02-14 22:19] LABS: Osmolality, Serum 296 mosm/kg (281-305)
[2023-02-14 22:25] LABS: Glucose, Whole Blood 117 mg/dL (60-115)
[2023-02-14 22:30] LABS: Osmolality Urine 315 mosm/kg (373-1093)
[2023-02-14] MEDS: rifAXIMin 550 MG TABLET PO (22:46)
[2023-02-14] MEDS: Lactulose 20 GM/30 ML SOLUTION PO (22:46)
[2023-02-14] MEDS: 0.9 % Sodium Chloride Flush 3 ML SYRINGE IVFLUSH (23:56)
[2023-02-15 06:17] LABS: Anion Gap 17 (12-20); Blood Urea Nitrogen 39 mg/dL (9-16); Calcium 10.4 mg/dL (8.4-10.2); Carbon Dioxide 26 mmol/L (22-29); Chloride 92 mmol/L (96-108); Creatinine Clr Calc Pharmacy 48.4; Estimated Glomerular Filt Rate 32; Glucose Random 124 mg/dL (60-115); Magnesium 2.1 mg/dL (1.6-2.6); Potassium 4.7 mmol/L (3.3-5.1); Sodium 130 mmol/L (135-145)
[2023-02-15 06:35] LABS: Hematocrit 37.4 % (42.0-52.0); Hemoglobin 11.8 g/dl (14.0-18.0); Mean Corpuscular HGB Conc 31.6 g/dl (31.0-36.0); Mean Corpuscular Hemoglobin 26.2 pg (27.0-33.0); Mean Corpuscular Volume 83.1 fL (80.0-98.0); Mean Platelet Volume 9.8 fL (9.4-12.4); Platelet Count 333 X10*3/uL (160-400); Red Cell Distribution Width 16.1 % (11.0-16.0); White Blood Count 9.5 X10*3/uL (4.8-10.8)
[2023-02-15] MEDS: Omeprazole 40 MG CAPSULE.DR PO (06:50)
[2023-02-15] MEDS: oxyCODONE HCl Immed Release 5 MG TABLET PO ×2 (06:52→12:34)
[2023-02-15 07:28] LABS: Glucose, Whole Blood 134 mg/dL (60-115)
[2023-02-15 07:39] VITALS: BP 123/82; PULSE 88; RESP 20; TEMP 36.8
[2023-02-15] MEDS: 0.9 % Sodium Chloride 1,000 ML 200 ML IV (07:39)
[2023-02-15] MEDS: 0.9 % Sodium Chloride Flush 3 ML SYRINGE IVFLUSH (07:39)
--- NOTE | 2023-02-15 09:37 | MHC.CM.PN ---
CM ATTEMPTED TO MEET W/PT HOWEVER PT HAS NOT ARRIVED TO UNIT, CM WILL REVISIT ONCE PT ON FLOOR.
[2023-02-15 10:18] VITALS: BP 121/75; PULSE 96; RESP 20; TEMP 36.8; O2SAT 97
[2023-02-15] MEDS: Insulin Glargine,Hum.rec.anlog 100 UNIT/ML 10 ML VIAL 15 UNIT SUBCUT (10:33)
[2023-02-15] MEDS: hydrOXYzine HCL 25 MG TABLET PO (10:34)
[2023-02-15] MEDS: Thiamine HCL 100 MG TABLET PO (10:34)
[2023-02-15] MEDS: Folic Acid 1 MG TABLET PO (10:34)
[2023-02-15] MEDS: Lactulose 20 GM/30 ML SOLUTION PO (10:34)
--- NOTE | 2023-02-15 10:38 | P.CONNP_ITS ---
History of Present Illness Reason for Consult Consult date: 02/15/23 Reason for consult: TORSTEN Chief Complaint Chief complaint: Hyponatremia,TORSTEN History of Present Illness Narrative: 57-year-old male with a PMH significant for?insulin-dependent diabetes type 2, alcohol use disorder with alcoholic liver cirrhosis, esophageal varices, portal hypertension, ascites, main portal vein thrombosis currently not on anticoagulation, GERD, and COPD who presents to the ED by recommendation of Dr. Hawk from Gastroenterology.? Patient had outpatient lab work completed for routine monitoring after furosemide was increased to 160 mg daily and spironolactone to 400 mg daily which found elevated potassium and creatinine.? Patient has chronic lightheadedness and dizziness, but states these were worse yesterday and today.? Also states chronic shortness of breath worse the past week even though he lost 20 lb after increasing diuretics.? Patient otherwise has no acute medical complaints.? Chronic headache at baseline.? Chronic left- sided abdominal pain at baseline He has lost significant weight with diuretics Now he has hyponatremia and mild hyperkalemia with TORSTEN. Diuretics have been held He is receiving IV fluids. Review of Systems Review of Systems No headache. No nausea vomiting. No abdominal pain. No shortness of breath. No cough. No dysuria urgency or hematuria. No edema. No rash. [facility] Past Medical History Medical History Alcohol use disorder, moderate, dependence Alcoholism Chronic abdominal pain Cirrhosis Decompensation of cirrhosis of liver Diabetes Dyspnea Elevated LFTs Esophageal varices GERD (gastroesophageal reflux disease) Gout Hydropneumothorax Pericardial effusion Peripheral neuropathy Pleural effusion Pleural effusion on right Recurrent left pleural effusion Tachycardia Family History Family History Mother Cancer Sister Cancer Surgical History Surgical History H/O cervical spine surgery H/O colonoscopy H/O hemicolectomy History of thoracentesis Hx of esophagogastroduodenoscopy Social History Social History Household Members: Other Household Members Other:: roommate Housing: House Do you presently have visiting nurse or other home services: No Alcohol intake: current Alcohol intake frequency: a few times a week Alcohol type: hard liquor Patient Tobacco Use Status: Former Tobacco user Quit Date: 1 mth ago Tobacco use type: Cigarette Years Smoked: 30 e-Cigarette/Vaping Use: Currently Using Second Hand Smoke Exposure: No Substance Use Type: Marijuana Advance Directives: Yes Advance Directives on File: Yes Advance Directives Date on File: 11/27/22 Nutrition Risks: No Nutritional Risk service: No Current occupational status: unemployed Meds Allergies Allergy/AdvReac Type Severity Reaction Status Date / Time No Known Drug Allergies Allergy Mild NONE Verified 02/05/23 09:30 [NO KNOWN DRUG ALLERGIES] Active Medications: Current Medications Acetaminophen (Acetaminophen 325 Mg Tablet) 650 mg PO Q6H PRN PRN Reason: Pain, Mild (Pain Scale 1-3) Albuterol Sulfate (Albuterol Sulfate 90 Mcg 8 Gm Inhaler) 1 - 2 puff INHALE Q4H PRN PRN Reason: Shortness Of Breath Bupropion HCl (Bupropion Hcl Xl 300 Mg Tab.Er.24h) 300 mg PO DAILY [facility] Dextrose (Dextrose 50 % 25 Gm/50 Ml Syringe) 25 gm IVPUSH Q15M PRN; Protocol PRN Reason: per Hypoglycemia Standing Ord. Docusate Sodium (Docusate Sodium 100 Mg Capsule) 100 mg PO DAILY PRN PRN Reason: Constipation Enoxaparin Sodium (Enoxaparin Sodium 30 Mg/0.3 Ml Syringe) 30 mg SUBCUT Q24H [facility] Folic Acid (Folic Acid 1 Mg Tablet) 1 mg PO DAILY [facility] Last Admin: 02/15/23 10:34 Dose: 1 mg Glucose (Glucose Gel 15 Gm Gel..Gram.) 15 gm PO Q15M PRN; Protocol PRN Reason: per Hypoglycemia Standing Ord. Hydroxyzine HCl (Hydroxyzine Hcl 25 Mg Tablet) 25 mg PO DAILY [facility] Last Admin: 02/15/23 10:34 Dose: 25 mg Sodium Chloride (Ns) 1,000 mls @ 200 mls/hr IV .Q5H [facility] Stop: 02/15/23 12:29 Last Admin: 02/15/23 07:39 Dose: 200 mls/hr Insulin Glargine (Insulin Glargine,Hum.Rec.Anlog 100 Unit/Ml 10 Ml Vial) 15 unit SUBCUT DAILY [facility] Last Admin: 02/15/23 10:33 Dose: 15 unit Insulin Human Lispro (Insulin Lispro 100 Unit/Ml 3 Ml Vial) 0 unit SUBCUT QIDACHS [facility]; Protocol Last Admin: 02/15/23 07:31 Dose: Not Given Lactulose (Lactulose 20 Gm/30 Ml Solution) 20 gm PO TID [facility] Last Admin: 02/15/23 10:34 Dose: 20 gm Lorazepam (Lorazepam 0.5 Mg Tablet) 0.5 mg PO DAILY PRN PRN Reason: anxiety/restlessness Meclizine HCl (Meclizine Hcl 12.5 Mg Tablet) 12.5 mg PO TID PRN PRN Reason: Dizziness Omeprazole (Omeprazole 40 Mg Capsule.Dr) 40 mg PO DAILY@0630 [facility] Last Admin: 02/15/23 06:50 Dose: 40 mg Ondansetron HCl (Ondansetron Hcl 4 Mg/2 Ml Vial) 4 mg IVPUSH Q8H PRN PRN Reason: Nausea and Vomiting Oxycodone HCl (Oxycodone Hcl Immed Release 5 Mg Tablet) 5 mg PO Q6H PRN PRN Reason: Pain, Moderate(Pain Scale 4-6) Last Admin: 02/15/23 06:52 Dose: 5 mg Paroxetine HCl (Paroxetine Hcl 20 Mg Tablet) 20 mg PO DAILY [facility] Rifaximin (Rifaximin 550 Mg Tablet) 550 mg PO BID [facility] Last Admin: 02/14/23 22:46 Dose: 550 mg Sodium Chloride (0.9 % Sodium Chloride Flush 3 Ml Syringe) 3 ml IVFLUSH QSHIFT [facility] Last Admin: 02/15/23 07:39 Dose: 3 ml Thiamine HCl (Thiamine Hcl 100 Mg Tablet) 100 mg PO DAILY [facility] Last Admin: 02/15/23 10:34 Dose: 100 mg Home Medications Medication Instructions Recorded Confirmed Last Taken Type bupropion HCl 300 mg 24 hr tablet, 300 mg PO DAILY 06/10/21 02/14/23 02/14/23 History extended release folic acid 1 mg tablet 1 mg PO DAILY 06/10/21 02/14/23 02/14/23 History thiamine HCl (vitamin B1) 100 mg 100 mg PO DAILY 06/10/21 02/14/23 02/14/23 History tablet albuterol sulfate 90 mcg/actuation 1 - 2 puff inhalation Q4-6H PRN 01/26/22 02/14/23 Unknown History aerosol inhaler (ProAir HFA) Shortness Of Breath hydroxyzine pamoate 25 mg capsule 25 - 50 mg PO DAILY itching 01/26/22 02/14/23 02/14/23 History lorazepam 0.5 mg tablet 0.5 mg PO DAILY PRN anxiety attack 07/13/22 02/14/23 10/27/22 History omeprazole 40 mg capsule,delayed 40 mg PO DAILY@0630 07/13/22 02/14/23 02/14/23 History release paroxetine HCl 20 mg tablet 20 mg PO DAILY 07/13/22 02/14/23 02/14/23 History insulin glargine 100 unit/mL (3 20 - 30 unit subcut QAM 11/27/22 02/14/23 02/14/23 History mL) subcutaneous pen meclizine 12.5 mg tablet 12.5 mg PO TID PRN Dizziness 02/14/23 02/14/23 Unknown History Physical Exam Vital Signs: Last Vital Signs Temp 98.3 F 02/15/23 10:18 Pulse 96 02/15/23 10:18 Resp 20 02/15/23 10:18 BP 121/75 02/15/23 10:18 Pulse Ox 97 02/15/23 10:18 O2 Del Method Room Air 02/15/23 10:18 BMI result Body Mass Index 27.1 Comfortable Neck is supple Lung: Air entry equal Heart: S1,S2, normal. No rub Abd: Soft. BS + NS : Alert.No asterexis Ext: No edema Results Lab Results 02/15/23 05:16 02/15/23 05:16 Lab results: Chemistry 02/14/23 02/14/23 02/15/23 16:20 18:43 05:16 Sodium 129 L 130 L 130 L Potassium 5.1 5.1 4.7 Carbon Dioxide BUN 33 H 32 H 39 H Creatinine 1.85 H 1.73 H 2.17 H Calcium 10.8 H D 10.0 D 10.4 H Hematology 02/14/23 02/15/23 16:20 05:16 WBC 10.4 9.5 Hgb 11.8 L D 11.8 L Plt Count 315 D 333 Urinalysis 02/14/23 21:40 Urine Color Yellow Urine Appearance Clear Urine pH 5.5 Ur Specific [place] 1.010 Urine Protein Negative Urine Glucose (UA) Negative Urine Ketones Negative Urine Blood Negative Urine Nitrite Negative Ur Leukocyte Esterase Negative Urine Studies 02/14/23 21:40 Urine Osmolality 315 L Assessment and Plan (1) Hyperkalemia: Status: Acute (2) Hyponatremia: Status: Acute (3) Acute kidney injury: Status: Acute Plan TORSTEN due to hypoperfusion from high-dose diuretics. Both hyperkalemia and hyponatremia secondary to diuretics. Recommendation check urine for sodium creatinine. Agree with holding diuretics. IV hydration with normal saline. Recheck serum electrolytes BUN creatinine in the next 6-8 hours. Lokelma p.o. serum potassium more than 5.2. Restrict oral free water intake to 1.2 L to correct hyponatremia. He wants to go on a vacation tomorrow to [place]. If the potassium is trending down and serum sodium is stable or improving and if the creatinine is trending down he can be safely discharged today. He needs follow-up blood work when he returns on Sunday. He should hold diuretics for the time being. Time Spent With Patient Time: Total time managing care of this patient today ____ minutes. Procedures Date of Service Date of Service: 02/15/23
[2023-02-15] MEDS: buPROPion HCl XL 300 MG TAB.ER.24H PO (10:42)
[2023-02-15] MEDS: PARoxetine HCL 20 MG TABLET PO (10:42)
[2023-02-15 11:35] VITALS: BP 131/73; PULSE 96; RESP 18; TEMP 36.7; O2SAT 96
[2023-02-15 11:46] LABS: Glucose, Whole Blood 230 mg/dL (60-115)
[2023-02-15] MEDS: Insulin Lispro 100 UNIT/ML 3 ML VIAL SUBCUT (11:47)
[2023-02-15] MEDS: rifAXIMin 550 MG TABLET PO (11:47)
[2023-02-15] MEDS: Albumin Human 25 % 100 ML IV ×2 (11:47→13:23)
[2023-02-15] MEDS: Calcium Carbonate 750 MG TAB.CHEW PO (12:35)
--- NOTE | 2023-02-15 12:47 | PM.DS ---
DS: Providers Provider Date of Service: 02/15/23 Date of admission: 02/14/23 21:39 Primary care physician: Martin Avilez MD Consults: 02/14/23 21:47 Consult to Nephrology Routine Consulting Provider: [facility] Reason for consultation: Hyponatremia, TORSTEN DS: Diagnosis Discharge Diagnosis (1) Hyperkalemia: Status: Acute (2) Hyponatremia: Status: Acute (3) Acute kidney injury: Status: Acute DS: Summary Hospital Course Hospital Course: Admission note HPI Pt is a 57-year-old male with a PMH significant for?insulin-dependent diabetes type 2, alcohol use disorder with alcoholic liver cirrhosis, esophageal varices, portal hypertension, ascites, main portal vein thrombosis currently not on anticoagulation, GERD, and COPD who presents to the ED by recommendation of Dr. Hawk from Gastroenterology.? Patient had outpatient lab work completed for routine monitoring after furosemide was increased to 160 mg daily and spironolactone to 400 mg daily which found elevated potassium and creatinine.? Patient has chronic lightheadedness and dizziness, but states these were worse yesterday and today.? Also states chronic shortness of breath worse the past week even though he lost 20 lb after increasing diuretics.? Patient otherwise has no acute medical complaints.? Chronic headache at baseline.? Chronic left-sided abdominal pain at baseline. ?Denies nausea, vomiting.? No chest pain/pressure, palpitations.? Denies lower leg edema.? No abdominal swelling or distention.? Gastroenterology was consulted and recommended patient hold all diuretics until Sunday and then repeat labs outpatient early next week. In the ED labs were significant for H&H of 11.8/37.0, sodium of 129, potassium of 6.0 with repeat 5.1, BUN 33, creatinine 1.85, bilirubin 3.4, AST 46, alk-phos 254. EKG demonstrated normal sinus rhythm without evidence of ST elevations or depressions. Pt was treated with oxycodone and IVF. Pt will be admitted to the hospital for treatment and further evaluation of hyponatremia, hyperkalemia, and TORSTEN. Hospital course The patient was admitted for evidence of acute kidney injury with associated hyperkalemia and hyponatremia. responded well to Lokelma, water restriction and IV fluid supplement as K normalized and kidney function started to improve from 2.1 to 1.9 but Sodium dropped down to 127. He was evaluated by kidney specialist who agreed on discharging him home as his blood work improved and he has plans to travel tomorrow morning with a follow up plan with blood work early next week. recommended to hold LAsix\Spironolactone meanwhile. I explained to him the need to stay in hospital for monitoring kidney function and electrolytes. He felt he needs to leave and signed AMA after explaining risks of renal failure, electrolyte imbalance and related complications. Continue fluid restriction to 1.2L daily Hold Lasix and Spironolactone ; restart Lasix 40 mg daily if start to build up fluids again. To repeat blood work next week and follow up with nephrology as outpatient Time Spent with Patient Time attestation: Total time managing care of this patient today ____ minutes. Discharge coordination time: Greater than 30 minutes Quality: Safe Use of Opioids Does Pt have an Active Cancer Diagnosis on the Problem List?: No Quality: Stroke Does the patient have a stroke diagnosis?: No Physical Exam Vital Signs: Vital Signs: Last Vital Signs Temp 98.1 F 02/15/23 11:35 Pulse 96 02/15/23 11:35 Resp 18 02/15/23 11:35 BP 131/73 02/15/23 11:35 Pulse Ox 96 02/15/23 11:35 O2 Del Method Room Air 02/15/23 11:35 BMI result Body Mass Index 27.1 Const: Other: Constitutional : Awake, interactive, not in distress Neck : Normal inspection, Supple Cardiovascular : RRR, no JVP, no lower extremity edema Respiratory : good bilateral air entry, no crackles, wheezes or rhonchi Gastrointestinal: soft, lax, Normal bowel sounds, Non tender Skin : Warm, Dry Neurological : Alert & oriented x3, No focal deficit DS: Data Data Completed and Pending Completed studies during hospitalization [Text1]: Procedures Control Bleeding in Gastrointestinal Tract, Via Natural or Artificial Opening Endoscopic (11/01/21) Detoxification Services for Substance Abuse Treatment (12/06/21) Drainage of Peritoneal Cavity, Percutaneous Approach (11/27/22) Drainage of Right Pleural Cavity, Percutaneous Approach (12/06/21) Introduction of Mineral-based Topical Hemostatic Agent into Upper GI, Via Natural or Artificial Opening Endoscopic, [employer] (11/27/22) Occlusion of Esophageal Vein with Extraluminal Device, Via Natural or Artificial Opening Endoscopic (11/27/22) Labs on day of discharge: Laboratory Results - last 24 hr 02/14/23 02/14/23 02/14/23 16:20 16:20 16:20 WBC 10.4 RBC 4.47 L D Hgb 11.8 L D Hct 37.0 L D MCV 82.8 MCH 26.4 L MCHC 31.9 RDW 16.1 H Plt Count 315 D MPV 9.1 L Immature Gran % (Auto) 0.6 H Neut % (Auto) 71.5 Lymph % (Auto) 12.4 L [place] % (Auto) 12.7 H Eos % (Auto) 1.5 Baso % (Auto) 1.3 Lymph # (Auto) 1.3 [place] # (Auto) 1.3 H Eos # (Auto) 0.2 Baso # (Auto) 0.1 Abs Immat Gran (auto) 0.06 H Absolute Neuts (auto) 7.5 Absolute Nucleated RBC 0.000 Nucleated RBC % (auto) 0.0 Sodium 129 L Potassium 5.1 Chloride 95 L Carbon Dioxide 24 Anion Gap 15 BUN 33 H Creatinine 1.85 H Estim Creat Clear Calc 56.8 Estimated GFR 38 POC Glucose Random Glucose 184 H Osmolality Calcium 10.8 H D Magnesium 2.2 Total Bilirubin 3.4 H AST 46 H ALT 26 Alkaline Phosphatase 254 H Troponin I High Sens < 2.7 Total Protein 9.7 H Albumin 3.8 Urine Color Urine Appearance Urine pH Ur Specific [place] Urine Protein Urine Glucose (UA) Urine Ketones Urine Blood Urine Nitrite Ur Leukocyte Esterase Urine Osmolality Ur Random Sodium 02/14/23 02/14/23 02/14/23 18:43 21:38 21:40 WBC RBC Hgb Hct MCV MCH MCHC RDW Plt Count MPV Immature Gran % (Auto) Neut % (Auto) Lymph % (Auto) [place] % (Auto) Eos % (Auto) Baso % (Auto) Lymph # (Auto) [place] # (Auto) Eos # (Auto) Baso # (Auto) Abs Immat Gran (auto) Absolute Neuts (auto) Absolute Nucleated RBC Nucleated RBC % (auto) Sodium 130 L Potassium 5.1 Chloride 97 Carbon Dioxide 23 Anion Gap 15 BUN 32 H Creatinine 1.73 H Estim Creat Clear Calc 60.8 Estimated GFR 41 POC Glucose Random Glucose 110 Osmolality 296 Calcium 10.0 D Magnesium Total Bilirubin AST ALT Alkaline Phosphatase Troponin I High Sens Total Protein Albumin Urine Color Yellow Urine Appearance Clear Urine pH 5.5 Ur Specific [place] 1.010 Urine Protein Negative Urine Glucose (UA) Negative Urine Ketones Negative Urine Blood Negative Urine Nitrite Negative Ur Leukocyte Esterase Negative Urine Osmolality Ur Random Sodium 02/14/23 02/14/23 02/14/23 21:40 21:40 22:21 WBC RBC Hgb Hct MCV MCH MCHC RDW Plt Count MPV Immature Gran % (Auto) Neut % (Auto) Lymph % (Auto) [place] % (Auto) Eos % (Auto) Baso % (Auto) Lymph # (Auto) [place] # (Auto) Eos # (Auto) Baso # (Auto) Abs Immat Gran (auto) Absolute Neuts (auto) Absolute Nucleated RBC Nucleated RBC % (auto) Sodium Potassium Chloride Carbon Dioxide Anion Gap BUN Creatinine Estim Creat Clear Calc Estimated GFR POC Glucose 117 H Random Glucose Osmolality Calcium Magnesium Total Bilirubin AST ALT Alkaline Phosphatase Troponin I High Sens Total Protein Albumin Urine Color Urine Appearance Urine pH Ur Specific [place] Urine Protein Urine Glucose (UA) Urine Ketones Urine Blood Urine Nitrite Ur Leukocyte Esterase Urine Osmolality 315 L Ur Random Sodium 100.0 02/15/23 02/15/23 02/15/23 05:16 05:16 07:22 WBC 9.5 RBC 4.50 L Hgb 11.8 L Hct 37.4 L MCV 83.1 MCH 26.2 L MCHC 31.6 RDW 16.1 H Plt Count 333 MPV 9.8 Immature Gran % (Auto) Neut % (Auto) Lymph % (Auto) [place] % (Auto) Eos % (Auto) Baso % (Auto) Lymph # (Auto) [place] # (Auto) Eos # (Auto) Baso # (Auto) Abs Immat Gran (auto) Absolute Neuts (auto) Absolute Nucleated RBC 0.000 Nucleated RBC % (auto) 0.0 Sodium 130 L Potassium 4.7 Chloride 92 L Carbon Dioxide 26 Anion Gap 17 BUN 39 H Creatinine 2.17 H Estim Creat Clear Calc 48.4 Estimated GFR 32 POC Glucose 134 H Random Glucose 124 H Osmolality Calcium 10.4 H Magnesium 2.1 Total Bilirubin AST ALT Alkaline Phosphatase Troponin I High Sens Total Protein Albumin Urine Color Urine Appearance Urine pH Ur Specific [place] Urine Protein Urine Glucose (UA) Urine Ketones Urine Blood Urine Nitrite Ur Leukocyte Esterase Urine Osmolality Ur Random Sodium 02/15/23 11:36 WBC RBC Hgb Hct MCV MCH MCHC RDW Plt Count MPV Immature Gran % (Auto) Neut % (Auto) Lymph % (Auto) [place] % (Auto) Eos % (Auto) Baso % (Auto) Lymph # (Auto) [place] # (Auto) Eos # (Auto) Baso # (Auto) Abs Immat Gran (auto) Absolute Neuts (auto) Absolute Nucleated RBC Nucleated RBC % (auto) Sodium Potassium Chloride Carbon Dioxide Anion Gap BUN Creatinine Estim Creat Clear Calc Estimated GFR POC Glucose 230 H Random Glucose Osmolality Calcium Magnesium Total Bilirubin AST ALT Alkaline Phosphatase Troponin I High Sens Total Protein Albumin Urine Color Urine Appearance Urine pH Ur Specific [place] Urine Protein Urine Glucose (UA) Urine Ketones Urine Blood Urine Nitrite Ur Leukocyte Esterase Urine Osmolality Ur Random Sodium Discharge Plan Discharge Anticipated Discharge Date/Time: 02/15/23 12:40 Patient Disposition: Home, Self-Care Discharge Diagnosis: Acute kidney injury Elevated potassium , low Sodium Referrals: Martin Avilez MD [Primary Care Provider] - 1 Week Discharge Medications: Continued Xifaxan 550 mg tablet 550 mg PO BID Qty: 60 6RF omeprazole 40 mg capsule,delayed release(DR/EC) 40 mg PO DAILY@0630 paroxetine HCl 20 mg tablet 20 mg PO DAILY ondansetron 4 mg tablet,disintegrating 4 mg PO Q8H PRN (Reason: nausea and vomiting) Qty: 14 0RF (DME) FreeStyle Lite Strips Strip See Rx Instructions .ROUTE .MEDSUPPLY Qty: 100 2RF Rx Instructions: QID (DME) lancets Misc See Rx Instructions .ROUTE .MEDSUPPLY Qty: 200 2RF Rx Instructions: 4 times daily (DME) blood-glucose meter [FreeStyle Lite Meter] Kit See Rx Instructions .ROUTE .MEDSUPPLY Qty: 1 0RF Rx Instructions: As directed insulin lispro 100 unit/mL insulin pen See Protocol subcut QIDACHS Qty: 15 2RF Protocol: Insulin Correction Scale Less than or equal to 110 ---- Give (units): 0 111 to 150 Give (units): 0 151 to 200 Give (units): 2 201 to 250 Give (units): 4 251 to 300 Give (units): 6 301 to 350 Give (units): 8 Greater than 350 Give (units): 10 Call MD if Blood Glucose > : 350 (DME) pen needle, diabetic [Pen Needle] 31 gauge x 5/16 needle See Rx Instructions .ROUTE .MEDSUPPLY Qty: 1200 0RF Rx Instructions: As directed oxycodone 5 mg tablet 5 mg PO Q6H PRN (Reason: pain) Qty: 10 0RF Rx Instructions: Partial Fill upon patient request. insulin glargine 100 unit/mL (3 mL) insulin pen 20 - 30 unit subcut QAM meclizine 12.5 mg tablet 12.5 mg PO TID PRN (Reason: Dizziness) hydroxyzine pamoate 25 mg capsule 25 - 50 mg PO DAILY albuterol sulfate [ProAir HFA] 90 mcg/actuation HFA aerosol inhaler 1 - 2 puff inhalation Q4-6H PRN (Reason: Shortness Of Breath) folic acid 1 mg tablet 1 mg PO DAILY bupropion HCl 300 mg tablet extended release 24 hr 300 mg PO DAILY thiamine HCl (vitamin B1) 100 mg tablet 100 mg PO DAILY lorazepam 0.5 mg tablet 0.5 mg PO DAILY PRN (Reason: anxiety attack) lactulose 10 gram/15 mL solution 30 ml PO TID 30 Days Qty: 2700 0RF Held furosemide 40 mg tablet 120 mg PO DAILY Hold Instructions: Check with nephrology before restarting spironolactone 100 mg tablet 300 mg PO DAILY Hold Instructions: Check with nephrology before restarting Discharge Orders: Discharge Order (Routine); Ordered 02/15/23 Ordered By: Kalyan Moore Diet: Fluid restriction 1.2L Activity on Discharge: As tolerated Stand Alone Forms: Patient Portal Discharge page Other Ambulatory Orders: Basic Metabolic Panel (Routine) Timeframe: 4 Days Facility: [facility] - Location: Laboratory Ordered By: Khaled Abuhashmeh Care Plan Goals: Read below Health Concerns: Read below Plan of Treatment: Read below Assessment: Continue fluid restriction to 1.2L daily Hold Lasix and Spironolactone ; restart Lasix 40 mg daily if start to build up fluids again. To repeat blood work next week and follow up with nephrology as outpatient
--- NOTE | 2023-02-15 13:50 | MHC.CM.PN ---
EMR REVIEWED, CM MET W/PT WHO REPORTS HE LIVES W/A ROOMMATE IS FULLY INDEPENDENT, HAS DIABETIC SUPPLIES FOR DME, NO HOME SERVICES AND PT WILL DRIVE SELF HOME. PT VERIFIES COVID VACCX3, PCP ON FILE VERIFIED AND CORRECT DR. VALORIE HOSKINS AND HCP ON FILE IS INCORRECT, PT REPORTS HIS HCP IS HIS SISTER YASMANI HSU [phone], PT REPORTS HE WILL FAX COPY TO CM OFFICE ONCE HE GETS HOME, PT PROVIDED W/CM CONTACT CARD. ANTIC D/C LATER TODAY NO SERVICES W/PT FOR SELF-TRANSPORT
[2023-02-15 14:16] LABS: Anion Gap 13 (12-20); Blood Urea Nitrogen 37 mg/dL (9-16); Calcium 9.9 mg/dL (8.4-10.2); Carbon Dioxide 24 mmol/L (22-29); Chloride 94 mmol/L (96-108); Creatinine Clr Calc Pharmacy 53.1; Estimated Glomerular Filt Rate 35; Glucose Random 202 mg/dL (60-115); Potassium 4.2 mmol/L (3.3-5.1); Sodium 127 mmol/L (135-145)
[2023-02-15 15:20] VITALS: BP 117/57; PULSE 72; RESP 17; TEMP 36.8; O2SAT 94
--- NOTE | 2023-02-15 15:57 | PC.NURSE ---
Patient left AMA. Alert and oriented x 3. Patient verbally understands consequences of leaving AMA. 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 AMA paper signed by patient.
== END 2023-02-15 17:06 | disposition left against medical advice (07) | DRG 469 ==
LOC: HO.ED 20:35 → HO.EDOVER 21:59 → HO.IMC 02-15 07:39
PROVIDERS: Internal Medicine; Nurse Practitioner Family; Admitting Provider Student in an Organized Health Care Education/Training Program; Emergency Provider Emergency Medicine; PCP Internal Medicine; Visit Provider Student in an Organized Health Care Education/Training Program
DX: N17.9 Acute kidney failure, unspecified (principal); I85.10 Secondary esophageal varices without bleeding; K76.6 Portal hypertension; E87.1 Hypo-osmolality and hyponatremia; E87.5 Hyperkalemia; K21.9 Gastro-esophageal reflux disease without esophagitis; E11.42 Type 2 diabetes mellitus with diabetic polyneuropathy; F10.20 Alcohol dependence, uncomplicated; J44.9 Chronic obstructive pulmonary disease, unspecified; T50.2X5A Adverse effect of carbonic-anhydrase inhibitors, benzothiadiazides and other diuretics, initial encounter; K70.30 Alcoholic cirrhosis of liver without ascites; E11.9 Type 2 diabetes mellitus without complications; Z79.4 Long term (current) use of insulin; Z79.899 Other long term (current) drug therapy
CPT/HCPCS: 36415; 80048; 80053; 81003; 82947; 83735; 83930; 83935; 84300; 84484; 85025; 85027; 93005; 99285; J1650; P9047

== ENCOUNTER → 2023-02-14 21:39 | Outpatient (BNV) | payer MEDICAID, SELFPAY | PROVIDERS: Admitting Provider Student in an Organized Health Care Education/Training Program; Emergency Provider Emergency Medicine; PCP Internal Medicine; Visit Provider Student in an Organized Health Care Education/Training Program | DX: E87.5 Hyperkalemia (principal); E87.1 Hypo-osmolality and hyponatremia; N17.9 Acute kidney failure, unspecified | CPT/HCPCS: 99223; 99239 ==

== ENCOUNTER 2023-02-20 12:23 | Outpatient (REF) | payer MEDICAID, SELFPAY ==
[2023-02-20 14:36] LABS: Anion Gap 11 (12-20); Blood Urea Nitrogen 13 mg/dL (9-16); Calcium 9.7 mg/dL (8.4-10.2); Carbon Dioxide 24 mmol/L (22-29); Chloride 104 mmol/L (96-108); Estimated Glomerular Filt Rate > 60; Glucose Random 110 mg/dL (60-115); Potassium 4.3 mmol/L (3.3-5.1); Sodium 135 mmol/L (135-145)
== END 2023-02-20 12:24 | disposition home or self-care (01) ==
LOC: HO.LAB 12:23
PROVIDERS: Student in an Organized Health Care Education/Training Program; PCP Internal Medicine; Visit Provider Internal Medicine
DX: E87.5 Hyperkalemia (principal); N17.9 Acute kidney failure, unspecified
CPT/HCPCS: 36415; 80048

== ENCOUNTER 2023-03-02 10:36 | Outpatient (REF) | payer MEDICAID, SELFPAY ==
[2023-03-02 12:13] LABS: Anion Gap 10 (12-20); Blood Urea Nitrogen 5 mg/dL (9-16); Calcium 8.6 mg/dL (8.4-10.2); Carbon Dioxide 24 mmol/L (22-29); Chloride 108 mmol/L (96-108); Estimated Glomerular Filt Rate > 60; Glucose Random 127 mg/dL (60-115); Potassium 4.6 mmol/L (3.3-5.1); Sodium 137 mmol/L (135-145)
== END 2023-03-02 10:37 | disposition home or self-care (01) ==
LOC: HO.LAB 10:36
PROVIDERS: PCP Internal Medicine; Visit Provider Internal Medicine
DX: N17.9 Acute kidney failure, unspecified (principal)
CPT/HCPCS: 36415; 80048

== ENCOUNTER 2023-03-03 05:34 | Inpatient (IN) | payer MEDICAID, SELFPAY ==
--- NOTE | ~2023-03-03 | US_ITS ---
EXAMINATION: US ABDOMEN LIMITED CLINICAL INFORMATION: Cirrhosis, ascites.. COMPARISON: None available. TECHNIQUE: Real-time imaging of the right upper quadrant abdominal viscera. FINDINGS: Limited imaging through the abdomen reveals that a small amount of ascites on the right abdomen no fluid seen on the left side. US/US abdomen limited IMPRESSION: Small amount of ascites in the right abdomen..
--- NOTE | ~2023-03-03 | XR_ITS ---
EXAMINATION: XR CHEST CLINICAL INFORMATION: Reason for Exam GI bleed COMPARISON: Chest radiograph 03/03/2023 TECHNIQUE: One view of the chest FINDINGS: Lines and tubes: None. Increased moderate pleural effusion and left basilar consolidation. Table calcified granuloma in the left lung apex. Right lung appears clear. No pneumothorax. Unchanged cardiomediastinal silhouette. XR/XR chest 1V IMPRESSION: Increased moderate left pleural effusion and left basilar consolidation which could reflect atelectasis, aspiration, or pneumonia.
[2023-03-03 05:36] VITALS: BP 116/71; PULSE 94; RESP 18; TEMP 36.2; O2SAT 96; BMI 28.5
[2023-03-03 05:54] LABS: Hemoglobin 9.4 g/dl (14.0-18.0); Mean Corpuscular HGB Conc 32.4 g/dl (31.0-36.0); Mean Corpuscular Hemoglobin 26.8 pg (27.0-33.0); Mean Corpuscular Volume 82.6 fL (80.0-98.0); Mean Platelet Volume 8.6 fL (9.4-12.4); Platelet Count 228 X10*3/uL (160-400); Red Blood Count 3.51 X10*6/uL (4.60-5.80); White Blood Count 6.5 X10*3/uL (4.8-10.8)
[2023-03-03 06:17] LABS: Alanine Aminotransferase 22 U/L (0-40); Albumin Level 3.1 g/dL (3.5-5.0); Alkaline Phosphatase 238 U/L (39-117); Anion Gap 10 (12-20); Aspartate Amino Transferase 47 U/L (5-37); Bilirubin Total 1.9 mg/dL (0.0-1.0); Blood Urea Nitrogen 7 mg/dL (9-16); Calcium 8.9 mg/dL (8.4-10.2); Carbon Dioxide 23 mmol/L (22-29); Chloride 106 mmol/L (96-108); Creatinine Clr Calc Pharmacy 141.3; Estimated Glomerular Filt Rate > 60; Glucose Random 125 mg/dL (60-115); Potassium 4.3 mmol/L (3.3-5.1); Sodium 135 mmol/L (135-145); Total Protein 7.1 g/dL (6.5-8.0)
[2023-03-03 07:09] VITALS: BP 113/71; PULSE 89; RESP 16; O2SAT 97
--- NOTE | 2023-03-03 07:14 | PC.NURSE ---
pt reports black stools x 2 days; hx esophageal varices. vss. pt reports some nausea/diarrhea denies v/cp/sob. ed provider at bedside for primary eval.
--- NOTE | 2023-03-03 07:29 | ECG_ITS ---
Test Reason : GI Blood Pressure : / mmHG Vent. Rate : 087 BPM Atrial Rate : 087 BPM P-R Int : 178 ms QRS Dur : 090 ms QT Int : 396 ms P-R-T Axes : 039 035 036 degrees QTc Int : 476 ms Normal sinus rhythm Normal ECG When compared with ECG of 14-FEB-2023 15:46, No significant change was found Referred By: Natalya Cowan Electronically Signed By:LINDA SANDERS
--- NOTE | 2023-03-03 07:42 | ED_ITS ---
HPI - General Adult General Chief complaint: General Medical Stated complaint: Black stools per pt Time Seen by Provider: 03/03/23 07:13 Source: patient Mode of arrival: ambulatory Limitations: no limitations History of Present Illness HPI narrative: A 57-year-old male with a history of alcoholic liver cirrhosis, recurrent pleural effusion, patient is still actively drinking last drink was last night came in for evaluation of black stool since yesterday. Patient declined any lightheadedness, no dizziness, no CP, no SOB, no abdominal pain, no chest pain. Patient is complaining of nausea but no vomiting. Related Data Home Medications Medication Instructions Recorded Confirmed bupropion HCl 300 mg 24 hr tablet, 300 mg PO DAILY 06/10/21 02/14/23 extended release folic acid 1 mg tablet 1 mg PO DAILY 06/10/21 02/14/23 thiamine HCl (vitamin B1) 100 mg 100 mg PO DAILY 06/10/21 02/14/23 tablet albuterol sulfate 90 mcg/actuation 1 - 2 puff inhalation Q4-6H PRN 01/26/22 02/14/23 aerosol inhaler (ProAir HFA) Shortness Of Breath hydroxyzine pamoate 25 mg capsule 25 - 50 mg PO DAILY itching 01/26/22 02/14/23 lorazepam 0.5 mg tablet 0.5 mg PO DAILY PRN anxiety attack 07/13/22 02/14/23 omeprazole 40 mg capsule,delayed 40 mg PO DAILY@0630 07/13/22 02/14/23 release paroxetine HCl 20 mg tablet 20 mg PO DAILY 07/13/22 02/14/23 insulin glargine 100 unit/mL (3 20 - 30 unit subcut QAM 11/27/22 02/14/23 mL) subcutaneous pen meclizine 12.5 mg tablet 12.5 mg PO TID PRN Dizziness 02/14/23 02/14/23 furosemide 40 mg tablet 120 mg PO DAILY 02/15/23 02/15/23 spironolactone 100 mg tablet 300 mg PO DAILY 02/15/23 02/15/23 Previous Rx's Medication Instructions Recorded rifaximin 550 mg tablet (Xifaxan) 550 mg PO BID #60 tabs 08/31/22 blood sugar diagnostic (FreeStyle #100 ea 10/30/22 Lite Strips) blood-glucose meter (FreeStyle #1 ea 10/30/22 Lite Meter kit) insulin lispro 100 unit/mL See Protocol subcut QIDACHS #15 mL 10/30/22 subcutaneous pen lancets #200 ea 10/30/22 ondansetron 4 mg disintegrating 4 mg PO Q8H PRN nausea and 10/30/22 tablet vomiting #14 tabs pen needle, diabetic 31 gauge x #1,200 ea 10/31/22 5/16 (Pen Needle) oxycodone 5 mg tablet 5 mg PO Q6H PRN pain #10 tabs 11/27/22 lactulose 10 gram/15 mL oral 30 ml PO TID 30 days #2,700 mL 12/05/22 solution Allergies Allergy/AdvReac Type Severity Reaction Status Date / Time No Known Drug Allergies Allergy Mild NONE Verified 02/05/23 09:30 [NO KNOWN DRUG ALLERGIES] Review of Systems 2 Review of Systems: All other systems are reviewed and are negative Constitutional: Reports as per HPI and Reports no additional constitutional complaints Eyes: Reports as per HPI and Reports no additional eye complaints Reports system reviewed and no additional complaints, except as documented Cardiovascular: Reports as per HPI and Reports no additional cardiovascular complaints Respiratory: Reports as per HPI and Reports no additional respiratory complaints Gastrointestinal: Reports as per HPI and Reports no additional gastrointestinal complaints Genitourinary: Reports no additional female genitourinary complaints Musculoskeletal: Reports no additional musculoskeletal complaints Skin/Breast: Reports system reviewed and no additional complaints, except as docu Psychiatric: Reports no additional psychiatric complaints Endocrine: Reports no additional endocrine complaints Hematologic/Lymphatic: Reports no additional hematologic/lymphatic complaints Allergic/Immunologic: Reports no additional allergic/immunologic complaints Reports system reviewed and no additional complaints, except as documented and Reports Abnormal speech present [facility] Past Medical History Medical History Diabetes Alcohol use disorder, moderate, dependence Recurrent left pleural effusion Pleural effusion Pericardial effusion Tachycardia Dyspnea Hydropneumothorax Pleural effusion on right Decompensation of cirrhosis of liver Cirrhosis GERD (gastroesophageal reflux disease) Esophageal varices Chronic abdominal pain Gout Peripheral neuropathy Alcoholism Elevated LFTs Surgical History Hx of esophagogastroduodenoscopy History of thoracentesis H/O colonoscopy H/O cervical spine surgery H/O hemicolectomy Family History Family History Mother Cancer Sister Cancer Social History Social History Household Members: Family Household Members Other:: roommate Housing: House Do you presently have visiting nurse or other home services: No Alcohol intake: current Alcohol intake frequency: holidays/special occasions only Alcohol type: hard liquor Patient Tobacco Use Status: Former Tobacco user Quit Date: 1 mth ago Tobacco use type: Cigarette Years Smoked: 30 Smoked in Last 30 Days: Yes e-Cigarette/Vaping Use: Currently Using Second Hand Smoke Exposure: No Use of substances other than those prescribed or required for medical reasons: Yes Substance Use Type: Marijuana Advance Directives: Yes Advance Directives on File: Yes Advance Directives Date on File: 11/27/22 service: No Current occupational status: unemployed Physical Exam ED Vital Signs: Vital Signs - 24 hr 03/03/23 05:36 03/03/23 07:09 Temperature 97.2 F Pulse Rate 94 89 Respiratory Rate 18 16 Blood Pressure 116/71 113/71 Pulse Oximetry 96 97 Oxygen Delivery Method Room Air Room Air BMI result Body Mass Index 28.5 Vital signs have been reviewed as appeared to be correct. Blood pressure normal. Heart rate normal. Respiration rate normal. Temperature normal. Oxygen saturation normal. Appearance: Alert. Oriented X3. No acute distress. Head: Normal external exam. Normocephalic. Atraumatic. No Restrepo signs noted. No raccoon eyes noted Eyes: PERRLA. EOMI. Conjunctiva and sclera normal. Eyelids normal. ENT: TM's Normal. Pharynx normal. Uvula midline. Moist mucous membranes. No trismus noted. No drooling noted. No muffled voice noted. Neck: Normal inspection. Neck supple. FROM. No adenopathy. Thyroid Normal. No meningeal signs. No neck mass noted. CVS: Normal heart rate and rhythm. Heart sound normal. No murmurs noted. Pulses normal throughout. Respiratory: No respiratory distress. Painless inspiration. Breath sounds normal. No wheezes/rales/rhonchi noted. Chest nontender. No accessory muscle usage noted or decreased air movement noted. Abdomen: Soft and nontender. Bowel sounds normal in all 4 quadrants. No distention noted. No organomegaly noted. No visible injury noted. Rectal exam: Black stool guaiac positive Back: No CVA tenderness. Full range of motion noted. Skin: Skin warm and dry. Normal skin color. Normal skin turgor. No rashes/lesions/lacerations noted. Extremities: No lower extremity edema. Extremities exhibit normal range of motion. Extremities nontender. Neuro: Oriented X 3. Cranial nerve exam: II-XII are grossly intact No motor deficit. No sensory deficit. Reflexes normal. Course Course Course Narrative: A 57-year-old male came in for black stool exam is consistent with melena, stable vital signs, H&H dropped by 2 units from previous value, no active vomiting or abdominal pain, mild elevation of PT/INR likely due to liver cirrhosis and alcohol consumption, type and screen done. Will admit to medical floor, PPI, serial CBCs. Medications Administered Discontinued Medications Generic Name Dose Route Start Last Admin Trade Name Freq PRN Reason Stop Dose Admin Ondansetron HCl 4 mg 03/03/23 07:45 03/03/23 07:53 Ondansetron Hcl 4 Mg/2 Ml Vial IVPUSH 03/03/23 07:46 4 mg ONCE ONE Administration Pantoprazole Sodium 40 mg 03/03/23 07:29 03/03/23 07:52 Pantoprazole Sodium 40 Mg/10 Ml Vial IVPUSH 03/03/23 07:30 40 mg ONCE ONE Administration Medical Decision Making Differential Diagnosis Differential Diagnoses: The differential diagnosis associated with the presentation includes (Upper GI bleed, lower GI bleed, hemodynamic instability, severe anemia, electrolyte disturbance, acute hepatic failure.) Admission/Observation Consideration of admission/observation: Escalation of care including admission/observation considered Consult Healthcare Provider Management of the patient was discussed with: Hospitalist (Dr. Simms) Lab Data MDM Lab Attestation statement: I reviewed the patient's lab results. 03/03/23 05:48 03/03/23 05:48 Labs: Lab Results 03/03/23 03/03/23 03/03/23 Range/Units 05:48 08:25 08:30 WBC 6.5 (4.8-10.8) X10*3/uL RBC 3.51 L D (4.60-5.80) X10*6/uL Hgb 9.4 L D (14.0-18.0) g/dl Hct 29.0 L D (42.0-52.0) % MCV 82.6 (80.0-98.0) fL MCH 26.8 L (27.0-33.0) pg MCHC 32.4 (31.0-36.0) g/dl RDW 17.0 H (11.0-16.0) % Plt Count 228 D (160-400) X10*3/uL MPV 8.6 L (9.4-12.4) fL Absolute Nucleated RBC 0.000 (0.0-0.012) X10*3/uL Nucleated RBC % (auto) 0.0 (0.0-0.2) /100WBC PT 15.2 H (11.1-13.3) SEC INR 1.3 H (0.9-1.1) APTT 30.2 (26.0-36.4) SEC Sodium 135 (135-145) mmol/L Potassium 4.3 (3.3-5.1) mmol/L Chloride 106 (96-108) mmol/L Carbon Dioxide 23 (22-29) mmol/L Anion Gap 10 L (12-20) BUN 7 L (9-16) mg/dL Creatinine 0.81 (0.5-1.4) mg/dL Estim Creat Clear Calc 141.3 Estimated GFR > 60 Random Glucose 125 H (60-115) mg/dL Calcium 8.9 (8.4-10.2) mg/dL Total Bilirubin 1.9 H (0.0-1.0) mg/dL AST 47 H (5-37) U/L ALT 22 (0-40) U/L Alkaline Phosphatase 238 H (39-117) U/L Troponin I High Sens < 2.7 (<3.5-35.0) ng/L Total Protein 7.1 (6.5-8.0) g/dL Albumin 3.1 L (3.5-5.0) g/dL Stool Occult Blood POSITIVE (NEGATIVE) Blood Type A Positive Antibody Screen NEGATIVE Independent Interpretation I performed an independent interpretation of an: EKG (Normal sinus rhythm at 87 beats per minute, normal axis deviation, normal intervals, no ST-T changes.) and Plain X-Ray (Chest: No acute intrathoracic pathology.) Radiology Impression Discussion of test interpretation with radiology: I have reviewed the radiologist's reading. Discharge Plan Discharge Clinical Impression: Melena, Cirrhosis of liver Patient Disposition: Admitted As Inpatient
[2023-03-03] MEDS: Pantoprazole Sodium 40 MG/10 ML VIAL IVPUSH ×2 (07:52→17:07)
[2023-03-03] MEDS: ondansetron HCL 4 MG/2 ML VIAL IVPUSH (07:53)
--- NOTE | 2023-03-03 07:53 | PC.NURSE ---
iv established; pt medicated per mar.
[2023-03-03 08:39] LABS: OBS1 POSITIVE (NEGATIVE)
[2023-03-03 08:40] LABS: OBS Int Ctl Valid YES
[2023-03-03 09:08] LABS: Troponin-I High Sensitivity < 2.7 ng/L (<3.5-35.0)
[2023-03-03 09:37] LABS: INTERNATIONAL NORM RATIO 1.3 (0.9-1.1); Prothrombin Time 15.2 SEC (11.1-13.3)
[2023-03-03 09:39] LABS: Partial Thromboplastin Time 30.2 SEC (26.0-36.4)
[2023-03-03 10:30] VITALS: BP 117/69; PULSE 94; RESP 16; TEMP 37; O2SAT 94
--- NOTE | 2023-03-03 11:17 | P.HPHOSP_ITS ---
History of Present Illness Date of Service: 03/03/23 Attending physician on admission: Jaxon Amaya Chief Complaint: Black stool 57-year-old male with a PMH significant for?insulin-dependent diabetes type 2, alcohol use disorder with alcoholic liver cirrhosis, esophageal varices, portal hypertension, ascites, main portal vein thrombosis currently not on anticoagulation, GERD, and COPD who presents to the ED for evaluation of black stools since yesterday. Patient denies any other symptoms: No lightheadedness, dizziness, increased fatigue. No shortness of breath. Denies chest pain/pressure, palpitations. No nausea, vomiting, abdominal pain. No hematemesis. Patient with a PMH of severe alcoholic cirrhosis with portal hypertension and esophageal varices. Patient last had endoscopy on 02/02/2023 showed small esophageal varices with post-banding ulcer, portal hypertensive gastropathy, and portal hypertensive duodenopathy. No banding was required. Patient also with a history of paracenteses, last attempt on on 01/03 when no free fluid was noted. Pt has been on diuretics to help prevent ascites and was admitted to the hospital 2 weeks prior after increases in diuretics caused TORSTEN and electrolyte imbalances. Currently taking spironolactone 150 mg daily and furosemide 60 mg daily. Patient denies significant abdominal distension. Patient with long history of significant alcohol intake. Reports has significantly cut down on drinking, states he may drink 2-3 beers once or twice a week. Last drink a couple of beers last night/ In the ED patient was afebrile and normotensive. Labs were significant for H&H of 9.4 crit 29.0 (down from 11 0.8/37.4 2 weeks prior on 02/15/2023), PT 15.2, INR 1.3, bilirubin 1.9, AST 47, alk-phos 238, albumin 3.1. Electrolytes WNL. Renal function baseline. Troponin negative. Stool positive for occult blood. CXR showed increased moderate left pleural effusion and left basilar consolidation which could reflect atelectasis, aspiration, or pneumonia. EKG demonstrated normal sinus rhythm without evidence of ST elevations or depression. Pt was treated with ondansetron and Protonix. Pt will be admitted to the hospital for treatment further evaluation of likely upper GI bleed in the setting of advanced liver disease with esophageal varices and hypertension. Review of Systems 2 Review of Systems: Black stool since yesterday Patient denies hematemesis No lightheadedness, dizziness, increased fatigue Denies chest pain/pressure, palpitations No nausea, vomiting, fever, chills, , diarrhea, abdominal pain Yes all other systems are reviewed and are negative [facility] Medical History Diabetes Alcohol use disorder, moderate, dependence Recurrent left pleural effusion Pleural effusion Pericardial effusion Tachycardia Dyspnea Hydropneumothorax Pleural effusion on right Decompensation of cirrhosis of liver Cirrhosis GERD (gastroesophageal reflux disease) Esophageal varices Chronic abdominal pain Gout Peripheral neuropathy Alcoholism Elevated LFTs Family History Mother Cancer Sister Cancer Surgical History Hx of esophagogastroduodenoscopy History of thoracentesis H/O colonoscopy H/O cervical spine surgery H/O hemicolectomy Social History Household Members: Family Household Members Other:: roommate Housing: House Do you presently have visiting nurse or other home services: No Alcohol intake: current Alcohol intake frequency: holidays/special occasions only Alcohol type: hard liquor Patient Tobacco Use Status: Former Tobacco user Quit Date: 1 mth ago Tobacco use type: Cigarette Years Smoked: 30 Smoked in Last 30 Days: Yes e-Cigarette/Vaping Use: Currently Using Second Hand Smoke Exposure: No Use of substances other than those prescribed or required for medical reasons: Yes Substance Use Type: Marijuana Advance Directives: Yes Advance Directives on File: Yes Advance Directives Date on File: 11/27/22 Nutrition Risks: No Nutritional Risk service: No Current occupational status: unemployed Meds Allergies Allergy/AdvReac Type Severity Reaction Status Date / Time No Known Drug Allergies Allergy Mild NONE Verified 02/05/23 09:30 [NO KNOWN DRUG ALLERGIES] Home Medications Medication Instructions Recorded Confirmed Last Taken Type bupropion HCl 300 mg 24 hr tablet, 300 mg PO DAILY 06/10/21 03/03/23 03/02/23 History extended release folic acid 1 mg tablet 1 mg PO DAILY 06/10/21 03/03/23 03/02/23 History thiamine HCl (vitamin B1) 100 mg 100 mg PO DAILY 06/10/21 03/03/23 03/02/23 History tablet albuterol sulfate 90 mcg/actuation 2 puff inhalation Q6H PRN 01/26/22 03/03/23 Unknown History aerosol inhaler (ProAir HFA) Shortness Of Breath hydroxyzine pamoate 25 mg capsule 25 mg PO DAILY itching 01/26/22 03/03/23 03/02/23 History lorazepam 0.5 mg tablet 0.5 mg PO DAILY PRN anxiety attack 07/13/22 03/03/23 10/27/22 History omeprazole 40 mg capsule,delayed 40 mg PO DAILY@0630 07/13/22 03/03/23 03/02/23 History release paroxetine HCl 20 mg tablet 20 mg PO DAILY 07/13/22 03/03/23 03/02/23 History insulin glargine 100 unit/mL (3 20 unit subcut DAILY 11/27/22 03/03/23 03/02/23 History mL) subcutaneous pen furosemide 40 mg tablet 60 mg PO DAILY 02/15/23 03/03/23 03/02/23 History spironolactone 100 mg tablet 150 mg PO DAILY 02/15/23 03/03/23 03/02/23 History insulin lispro 100 unit/mL 1 sliding scale dose subcut QIDACHS 03/03/23 03/03/23 03/02/23 History subcutaneous pen Physical Exam 2 Vital Signs and Narrative: Vital Signs: Last Vital Signs Temp 98.6 F 03/03/23 10:30 Pulse 94 03/03/23 10:30 Resp 16 03/03/23 10:30 BP 117/69 03/03/23 10:30 Pulse Ox 94 03/03/23 10:30 O2 Del Method Room Air 03/03/23 10:30 BMI result Body Mass Index 28.5 Constitutional: Alert, in no acute distress. Mental Status: Oriented to person, place and time. Eyes: Pupils are equal, round, and reactive to light. Sclera non icteric. Ear, Nose, and Throat: Oropharynx clear, mucous membranes moist. Ears and nose without deformities. Trachea midline. Respiratory: Clear to auscultation bilaterally. No wheezing, rales, or rhonchi. Cardiovascular: S1, S2 regular. No murmurs, rubs, or gallops. Gastrointestinal: Abdomen soft, non-tender, mildly distended. Normal bowel sounds. Reducible umbilical hernia noted. Neurologic: Cranial nerves II-XII are grossly intact bilaterally. No focal neurological deficits. Moves all extremities spontaneously. Skin: No rashes or lesions noted. Musculoskeletal: No cyanosis or clubbing. Extremities: 1+ pitting lower leg edema. Psychiatric: Normal mood and affect. Results Labs 03/03/23 05:48 03/03/23 05:48 Labs: Laboratory Results - last 24 hr 03/03/23 03/03/23 03/03/23 05:48 08:25 08:30 MCV 82.6 MCH 26.8 L MCHC 32.4 RDW 17.0 H Plt Count 228 D MPV 8.6 L Absolute Nucleated RBC 0.000 Nucleated RBC % (auto) 0.0 PT 15.2 H INR 1.3 H APTT 30.2 Anion Gap 10 L Estim Creat Clear Calc 141.3 Estimated GFR > 60 Random Glucose 125 H Calcium 8.9 Total Bilirubin 1.9 H AST 47 H ALT 22 Alkaline Phosphatase 238 H Total Protein 7.1 Albumin 3.1 L Stool Occult Blood POSITIVE Blood Type A Positive Antibody Screen NEGATIVE Assessment and Plan (1) Melena: Status: Acute (2) Cirrhosis of liver: Status: Acute Plan 57-year-old male with a PMH significant for?insulin-dependent diabetes type 2, alcohol use disorder with alcoholic liver cirrhosis, esophageal varices, portal hypertension, ascites, main portal vein thrombosis currently not on anticoagulation, GERD, and COPD who presents to the ED for evaluation of black stools since yesterday. Pt will be admitted to the hospital for treatment further evaluation of likely upper GI bleed in the setting of advanced liver disease with esophageal varices and hypertension. Upper GI bleed Patient complains of black stool, stool guaiac positive, H&H 10.4/29.0, down from 11 0.8/37.4 two weeks prior Patient with history of alcoholic cirrhosis with esophageal varices and portal hypertension Hx of esophageal varices banding, currently denies hematemesis Last endoscopy on 02/02/2023 the small soft tissue varices, post banding ulcer, portal hypertensive gastropathy, and portal hypertensive duodenopathy Will treat with Protonix IV b.i.d. Full liquid diet Pneumatic boots for DVT prophylaxis GI consult Will monitor H&H q6 for now Hx of ascites Mild abdominal distension, 1+ pitting lower leg edema bilaterally Will increase Lasix po to 40mg bid Will increase spironolactone to 100 mg bid Currently no indication for paracentesis Follow BMP Alcoholic cirrhosis Continue lactulose, rifaximin Insulin-dependent diabetes type 2 Hold home meds Will [address] on sliding scale insulin, Lantus COPD Not in acute exacerbation Continue home inhalers Dizziness/lightheadedness Continue home meclizine Mood disorder Continue home meds Full Code Attending:?Dr. Amaya DVT Prophylaxis: Pneumatic boots d/t question of UGIB Pt will require a hospitalization of at least two nights for treatment and further evaluation of likely upper GI bleed in the setting of advanced liver disease with esophageal varices and hypertension with IV PPI and close monitoring of labs. Time Spent With Patient Time: Total time managing care of this patient today ____ minutes. Quality Stroke Does the patient have a stroke diagnosis?: No VTE Prior VTE?: No VTE Risk Level:: Medical - moderate - high VTE Device Contraindication: N/A - Device Ordered VTE Drug Contraindication: Treatment Not Indicated
--- NOTE | 2023-03-03 11:18 | PHA.MEDREC ---
Pharmacy Consult ? Medication Reconciliation Pharmacy has completed the medication reconciliation.
--- NOTE | 2023-03-03 12:15 | PC.NURSE ---
admitting MD to bedside.
--- NOTE | 2023-03-03 12:30 | PC.NURSE ---
pt reports [facility]. refuses prn d/t liver issues; requesting oxycodone. Dr. Amaya notified.
[2023-03-03] MEDS: Furosemide 40 MG/4 ML VIAL IVPUSH ×2 (13:31→17:06)
[2023-03-03] MEDS: Thiamine HCL 100 MG TABLET PO (13:31)
[2023-03-03] MEDS: oxyCODONE HCl Immed Release 5 MG TABLET PO ×2 (13:31→22:02)
[2023-03-03] MEDS: Folic Acid 1 MG TABLET PO (13:32)
[2023-03-03 14:29] VITALS: BP 129/79; PULSE 97; RESP 16; O2SAT 98
[2023-03-03] MEDS: PARoxetine HCL 20 MG TABLET PO (14:29)
[2023-03-03] MEDS: hydrOXYzine HCL 25 MG TABLET PO (14:29)
[2023-03-03] MEDS: buPROPion HCl XL 300 MG TAB.ER.24H PO (14:29)
[2023-03-03] MEDS: Spironolactone 25 MG TABLET 100 MG PO ×2 (14:29→17:06)
--- NOTE | 2023-03-03 14:47 | PC.NURSE ---
pharmacy called for missing med rifaximin.
[2023-03-03] MEDS: rifAXIMin 550 MG TABLET PO ×2 (15:05→22:04)
--- NOTE | 2023-03-03 15:08 | PC.NURSE ---
notified Lita POTTER pt had 2 episodes of black diarrhea here; held lactulose.
[2023-03-03 15:42] VITALS: BP 132/73; PULSE 101; RESP 20; TEMP 37.2; O2SAT 97
--- NOTE | 2023-03-03 16:18 | MHC.CM.PN ---
Lives w/friend at home. Owns cane and walker, still drives self. Previously independent. D/C plan is home w/friend via family. CM to follow.
[2023-03-03 16:24] LABS: MANUAL DIFF FLAG NO
[2023-03-03 16:29] LABS: Basophils Absolute Auto 0.1 X10*3/uL (0.0-0.2); Basophils Percent Auto 1.1 % (0-2); Eosinophils Absolute Auto 0.1 X10*3/uL (0.0-0.4); Eosinophils Percent Auto 2.3 % (0-4); Hematocrit 30.8 % (42.0-52.0); Hemoglobin 9.9 g/dl (14.0-18.0); Imm Gran Abs Auto 0.03 X10*3/uL (0.00-0.03); Imm Gran Pct Auto 0.5 % (0.0-0.4); Lymphocytes Absolute Auto 1.1 X10*3/uL (1.2-4.9); Lymphocytes Percent Auto 17.6 % (20-40); Mean Corpuscular HGB Conc 32.1 g/dl (31.0-36.0); Mean Corpuscular Hemoglobin 26.4 pg (27.0-33.0); Mean Corpuscular Volume 82.1 fL (80.0-98.0); Mean Platelet Volume 8.5 fL (9.4-12.4); Monocytes Percent Auto 15.8 % (2-11); Neutrophils Absolute Auto 3.9 x10*3/uL (2.0-8.3); Neutrophils Percent Auto 62.7 % (45-73); Platelet Count 246 X10*3/uL (160-400); Red Blood Count 3.75 X10*6/uL (4.60-5.80); Red Cell Distribution Width 17.2 % (11.0-16.0); White Blood Count 6.2 X10*3/uL (4.8-10.8)
--- NOTE | 2023-03-03 16:49 | PM.EVENT ---
Event Note Date of Service: 03/03/23 Event Note: GI Consult-Full note dictated. Patient is followed by [facility]. Imp: 57 yo male with EtOH-induced cirrhosis with some continued alcohol use. He has a hx of ascites and esophageal varices with multiple EGD's with banding, although most recent EGD on 02/02/23 showed only small varices and no banding was done. He presents with about 24-48 hours of melena, but no N/V/hematochezia. His Hgb has been stable over the course of today and he presently appears quite stable, alert, and in NAD. He is on a PPI at home and denies ASA/NSAIDs/smoking. I do not think this represents a variceal bleed. This could be bleeding from his known portal gastropathy or gastritis. Doubt ulcer disease. I do not think he has SBP. Rec: Continue on IV PPI for now, F/U labs in the AM, Full liquid diet is fine for now, U/S paracentesis to definitively R/O SBP. He presently does not need IV Sandostatin. If melena clears and he is stable then discharge in 24-48 hours. If melena persists and/or bleeding worsens with decrease in Hgb he will need an EGD while he is here. Add a Beta-joon if not already on one for his portal HTN and known varices. Thanks. Time Spent With Patient Time: Total time managing care of this patient today ____ minutes.
[2023-03-03 16:51] LABS: Glucose, Whole Blood 117 mg/dL (60-115)
[2023-03-03] MEDS: 0.9 % Sodium Chloride Flush 3 ML SYRINGE IVFLUSH ×2 (17:07→22:06)
[2023-03-03 19:30] VITALS: BP 146/82; PULSE 98; RESP 20; TEMP 37.1; O2SAT 97
[2023-03-03 20:22] LABS: Glucose, Whole Blood 97 mg/dL (60-115)
--- NOTE | 2023-03-04 00:53 | CONS_ITS ---
DATE OF SERVICE: 03/03/2023 REASON FOR CONSULTATION: Melena and cirrhosis. HISTORY OF PRESENT ILLNESS: This has been obtained from the patient as well as from the medical record. The patient is a 57-year-old male with a long-standing history of alcohol abuse which does remain somewhat active, although less than previously. His past history is notable for known varices. He has undergone multiple upper endoscopies in the past year and a half. He has had variceal banding twice in [address] Santo, and then further endoscopies and variceal banding this year with Dr. Graham, Dr. Santo, and Dr. Hawk. The most recent endoscopy on February 02 described only small varices with a small ulcer from previous banding, but no banding was done on that occasion. However, he had banding in December, twice in November, and in October. The patient unfortunately does continue to have several beers about twice per week. He vapes occasionally but does not smoke cigarettes. He does not use any aspirin or NSAIDs. He is on a chronic PPI. The patient reports that he was in his usual state of health up until yesterday when he noticed the onset of a black bowel movement. This occurred only once. It was not associated with any lightheadedness, abdominal pain, nausea, nor vomiting. He had another black stool this morning at home and came to the ER. Since being admitted to the hospital, he has had no further black stools. There has been no hematochezia. He denies any nausea nor vomiting. He denies any fevers or chills at home. He has not noticed any jaundice. His last use of alcohol was yesterday. Since he has been up in his room from the ER, he has been feeling well. In fact when I went in to see him, he was sitting at the window in a chair using his laptop. MEDICATIONS: At home included: 1. Albuterol inhaler. 2. Bupropion. 3. Folic acid. 4. Furosemide. 5. Hydroxyzine. 6. Insulin. 7. Lactulose. 8. Lorazepam. 9. Omeprazole. 10. Ondansetron. 11. Oxycodone. 12. Paxil. 13. Rifaximin. 14. Spironolactone. 15. Thiamin. PAST MEDICAL HISTORY: 1. Cirrhosis in relation to alcohol abuse. 2. Esophageal varices, status post multiple endoscopies and bandings. 3. Diabetes mellitus. 4. He has had ascites. 5. History of portal vein thrombosis. 6. COPD. 7. Gastroesophageal reflux. He does have a history of pleural effusions, gout, neuropathy. Surgeries include: 1. Carpal tunnel. 2. Some type of neurosurgery. 3. A previous right colectomy for a large benign polyp at [facility]. SOCIAL HISTORY: He is . He is on disability. He vapes but does not smoke. Alcohol as above. FAMILY HISTORY: Noncontributory. REVIEW OF SYSTEMS: CONSTITUTIONAL: He reports that he has been eating comfortably at home. His energy level is fair. CARDIAC: No chest pain. PULMONARY: No cough, no hemoptysis. GASTROINTESTINAL: As above. In addition, he denies any upper GI complaints currently such as dysphagia, nor significant heartburn. UROLOGIC: He denies any hematuria nor dysuria. NEUROLOGIC: He denies any headache or seizures. PHYSICAL EXAMINATION: GENERAL: The patient is a pleasant, alert, comfortable-appearing male. He is alert and oriented. There is no asterixis. Anicteric sclerae. Moist mucous membranes. NECK: Supple. No lymphadenopathy. CHEST: Clear. He does have multiple spider angiomata on the chest wall. CARDIAC: Normal S1 and S2. ABDOMEN: Soft but distended with probable ascites. There is a soft, nontender, reducible umbilical hernia. There is no palpable mass, rebound, or guarding. EXTREMITIES: Mild pretibial edema. NEUROLOGIC: He is alert and oriented. No obvious asterixis. LABORATORY DATA: White count 6.5, hemoglobin 9.5. His hemoglobin was 11.8 at the end of January. His hemoglobin just a short while ago was 9.9. Platelets 246,000. PT 15.2 with INR 1.3. Normal electrolytes. BUN 7, creatinine 0.8, glucose 125, total bilirubin 1.9, AST 47, ALT 22, alkaline phosphatase 238, albumin 3.1. Chest x-ray from this morning shows a moderate-sized left pleural effusion, increased from previously, and some left basilar consolidation which could reflect either atelectasis or pneumonia. His most recent ultrasound in December did not reveal any ascites at that time. IMPRESSION: The patient is a 57-year-old male with advanced liver disease, with associated complications of esophageal varices and ascites. He has had multiple endoscopies with banding of the varices with the most recent endoscopy in mid January showing only small varices which were not banded at that time and just a small post-banding ulcer. He now presents with 2 days of melena. He has had no upper GI complaints, specifically no hematemesis nor coffee-grounds emesis. Overall, I do not think this reflects a variceal bleed given no upper GI symptoms. He may be having some bleeding from his known gastropathy. I doubt this reflects ulcer disease given that he is on a chronic PPI, but he does still use some alcohol which could increase the risk of upper GI bleeding from either gastritis or ulcer disease. Since he appears very stable at the present time, I do not think urgent endoscopy is needed. In fact if things remain stable, then I would hold off on repeating the endoscopy at this time. His hemoglobin is obviously very stable with a level of 9.9 this afternoon compared to 9.4 this morning. He also has a normal BUN, which tends to go against any significant upper GI bleeding. It does appear that he does have some ascites on exam, although clinically does not appear to have spontaneous bacterial peritonitis. Nonetheless, I would recommend abdominal ultrasound while he is here, and if significant ascites is present have them obtain at least a diagnostic paracentesis for cell count with differential, Gram stain, and culture. I would continue his PPI. I do not think he needs to be on IV Sandostatin with regard to a possible variceal bleed. I did advise him that he obviously needs to avoid alcohol completely halfway. I did review all this with the patient in detail, and he is comfortable with the plan. Thank you for consultation. MD SEREAN Hatch/SULLY / [id number] [place]
[2023-03-04 04:00] VITALS: BP 127/73; PULSE 92; RESP 18; TEMP 37.2; O2SAT 92
[2023-03-04] MEDS: Pantoprazole Sodium 40 MG/10 ML VIAL IVPUSH (05:55)
[2023-03-04 07:15] LABS: Hematocrit 31.2 % (42.0-52.0); Mean Corpuscular HGB Conc 32.1 g/dl (31.0-36.0); Mean Corpuscular Hemoglobin 27.3 pg (27.0-33.0); Mean Corpuscular Volume 85.2 fL (80.0-98.0); Mean Platelet Volume 9.1 fL (9.4-12.4); Platelet Count 244 X10*3/uL (160-400); Red Blood Count 3.66 X10*6/uL (4.60-5.80); Red Cell Distribution Width 17.3 % (11.0-16.0); White Blood Count 6.2 X10*3/uL (4.8-10.8)
[2023-03-04 07:30] LABS: Anion Gap 10 (12-20); Blood Urea Nitrogen 8 mg/dL (9-16); Calcium 9.5 mg/dL (8.4-10.2); Carbon Dioxide 27 mmol/L (22-29); Chloride 102 mmol/L (96-108); Creatinine Clr Calc Pharmacy 136.3; Estimated Glomerular Filt Rate > 60; Glucose Random 133 mg/dL (60-115); Potassium 4.3 mmol/L (3.3-5.1); Sodium 135 mmol/L (135-145)
[2023-03-04 07:31] VITALS: BP 111/68; PULSE 89; RESP 20; TEMP 36.5; O2SAT 95
[2023-03-04 07:40] LABS: Glucose, Whole Blood 189 mg/dL (60-115)
[2023-03-04] MEDS: 0.9 % Sodium Chloride Flush 3 ML SYRINGE IVFLUSH (08:46)
[2023-03-04] MEDS: Furosemide 40 MG/4 ML VIAL IVPUSH (08:46)
[2023-03-04] MEDS: Spironolactone 25 MG TABLET 100 MG PO (08:47)
[2023-03-04] MEDS: Insulin Glargine,Hum.rec.anlog 100 UNIT/ML 10 ML VIAL 14 UNIT SUBCUT (08:47)
[2023-03-04] MEDS: hydrOXYzine HCL 25 MG TABLET PO (08:47)
[2023-03-04] MEDS: nadoloL 20 MG TABLET PO (08:47)
[2023-03-04] MEDS: rifAXIMin 550 MG TABLET PO (08:47)
[2023-03-04] MEDS: Insulin Lispro 100 UNIT/ML 3 ML VIAL SUBCUT (08:47)
[2023-03-04] MEDS: PARoxetine HCL 20 MG TABLET PO (08:48)
[2023-03-04] MEDS: Folic Acid 1 MG TABLET PO (08:48)
[2023-03-04] MEDS: Thiamine HCL 100 MG TABLET PO (08:48)
[2023-03-04] MEDS: buPROPion HCl XL 300 MG TAB.ER.24H PO (08:48)
[2023-03-04] MEDS: oxyCODONE HCl Immed Release 5 MG TABLET PO (08:53)
[2023-03-04 10:56] LABS: Glucose, Whole Blood 57 mg/dL (60-115)
[2023-03-04 11:18] LABS: Glucose, Whole Blood 108 mg/dL (60-115)
--- NOTE | 2023-03-04 11:49 | PM.DS ---
DS: Providers Provider Date of Service: 03/04/23 Date of admission: 03/03/23 11:58 Primary care physician: Martin Avilez MD Consults: 03/03/23 12:08 Consult to Gastroenterology Routine Consulting Provider: Cash Vizcarra Reason for consultation: Black stool guaiac+, pt w/ cirrhosis & esophageal varices DS: Diagnosis Discharge Diagnosis (1) Melena: Status: Acute (2) Cirrhosis of liver: Status: Acute DS: Summary Hospital Course Hospital Course: Date of Service: 03/03/23 Attending physician on admission: Jaxon Amaya Chief Complaint: Black stool 57-year-old male with a PMH significant for?insulin-dependent diabetes type 2, alcohol use disorder with alcoholic liver cirrhosis, portal hypertension, ascites, main portal vein thrombosis currently not on anticoagulation, GERD, and COPD who presents to the ED for evaluation of black stools since yesterday. Patient denies any other symptoms: No lightheadedness, dizziness, increased fatigue. No shortness of breath. Denies chest pain/pressure, palpitations. No nausea, vomiting, abdominal pain. No hematemesis. Patient with a PMH of severe alcoholic cirrhosis with portal hypertension and esophageal varices. Patient last had endoscopy on 02/02/2023 showed small esophageal varices with post-banding ulcer, portal hypertensive gastropathy, and portal hypertensive duodenopathy. No banding was required. Patient also with a history of paracenteses, last attempt on on 01/03 when no free fluid was noted. Pt has been on diuretics to help prevent ascites and was admitted to the hospital 2 weeks prior after increases in diuretics caused TORSTEN and electrolyte imbalances. Currently taking spironolactone 150 mg daily and furosemide 60 mg daily. Patient denies significant abdominal distension. Patient with long history of significant alcohol intake. Reports has significantly cut down on drinking, states he may drink 2-3 beers once or twice a week. Last drink a couple of beers last night/ In the ED patient was afebrile and normotensive. Labs were significant for H&H of 9.4 crit 29.0 (down from 11 0.8/37.4 2 weeks prior on 02/15/2023), PT 15.2, INR 1.3, bilirubin 1.9, AST 47, alk-phos 238, albumin 3.1. Electrolytes WNL. Renal function baseline. Troponin negative. Stool positive for occult blood. CXR showed increased moderate left pleural effusion and left basilar consolidation which could reflect atelectasis, aspiration, or pneumonia. EKG demonstrated normal sinus rhythm without evidence of ST elevations or depression. Pt was treated with ondansetron and Protonix. Pt will be admitted to the hospital for treatment further evaluation of likely upper GI bleed in the setting of advanced liver disease with esophageal varices and hypertension. Hospital Course: 57-year-old male with a PMH significant for?insulin-dependent diabetes type 2, alcohol use disorder with alcoholic liver cirrhosis, esophageal varices, portal hypertension, ascites, main portal vein thrombosis currently not on anticoagulation, GERD, and COPD who presents to the ED for evaluation of multiple black stools Patient admitted to medical floor with a diagnosis of acute upper GI bleed, stool guaiac was positive hematocrit was 29 down from 37.4, 2 weeks ago patient had no hematemesis, he was treated with IV Protonix, hematocrit was monitored closely, patient had no further episodes of black stools he had a normal bowel movement this morning, no further drop in hematocrit noted, patient evaluated by ethylbenzene cracking supervisor since patient was not having any hematemesis or melena it was less likely to be a variceal bleed, patient placed on nadolol 20 mg tablet daily for portal hypertension and known varices, and Carafate added t.i.d. a.c. and he is being discharged home ,he is tolerating regular diet patient had no fevers no chills or abdominal pain ,abdominal ultrasound showed small amount of ascitic fluid on the right side ,therefore paracentesis not done , he has recommended outpatient follow-up with his primary ethylbenzene cracking supervisor recommend to continue current diuretics and strongly recommended to abstain from alcohol, he is being continued on rifaximin and lactulose for alcoholic cirrhosis, In regard to diabetes recommend to continue home medications blood sugar remains stable. Discharge diagnosis Acute GI bleed Chronic alcohol liver disease with ascites Time Spent with Patient Time attestation: Total time managing care of this patient today ____ minutes. Discharge coordination time: Greater than 30 minutes Quality: Safe Use of Opioids Does Pt have an Active Cancer Diagnosis on the Problem List?: No Quality: Stroke Does the patient have a stroke diagnosis?: No Physical Exam Vital Signs: Vital Signs: Last Vital Signs Temp 97.7 F 03/04/23 07:31 Pulse 89 03/04/23 07:31 Resp 20 03/04/23 07:31 BP 111/68 03/04/23 07:31 Pulse Ox 95 03/04/23 07:31 O2 Del Method Room Air 03/04/23 07:31 BMI result Body Mass Index 28.5 Const: Other: Constitutional : A wake, alert x3, in no acute distress Neck : Normal ins pection, Supple Ca rdiovascular : RRR , no JVP, no lower extremity edema R espiratory : Suly r to auscultation, no crackles, whe ezes or rhonchi Ga strointestinal: s oft, distended pos itive for medical hernia, Normal bow el sounds, Non ten hailey Skin : Warm, D ry Extremities mil d pitting edema Ne urological : Alert & oriented x3, No focal deficit DS: Data Data Completed and Pending Completed studies during hospitalization [Text1]: Procedures Control Bleeding in Gastrointestinal Tract, Via Natural or Artificial Opening Endoscopic (11/01/21) Detoxification Services for Substance Abuse Treatment (12/06/21) Drainage of Peritoneal Cavity, Percutaneous Approach (11/27/22) Drainage of Right Pleural Cavity, Percutaneous Approach (12/06/21) Introduction of Mineral-based Topical Hemostatic Agent into Upper GI, Via Natural or Artificial Opening Endoscopic, [employer] (11/27/22) Occlusion of Esophageal Vein with Extraluminal Device, Via Natural or Artificial Opening Endoscopic (11/27/22) Labs on day of discharge: Laboratory Results - last 24 hr 03/03/23 03/03/23 03/03/23 16:20 16:27 19:59 WBC 6.2 RBC 3.75 L Hgb 9.9 L Hct 30.8 L MCV 82.1 MCH 26.4 L MCHC 32.1 RDW 17.2 H Plt Count 246 MPV 8.5 L Immature Gran % (Auto) 0.5 H Neut % (Auto) 62.7 Lymph % (Auto) 17.6 L [place] % (Auto) 15.8 H Eos % (Auto) 2.3 Baso % (Auto) 1.1 Lymph # (Auto) 1.1 L [place] # (Auto) 1.0 Eos # (Auto) 0.1 Baso # (Auto) 0.1 Abs Immat Gran (auto) 0.03 Absolute Neuts (auto) 3.9 Absolute Nucleated RBC 0.000 Nucleated RBC % (auto) 0.0 Sodium Potassium Chloride Carbon Dioxide Anion Gap BUN Creatinine Estim Creat Clear Calc Estimated GFR POC Glucose 117 H 97 Random Glucose Calcium 03/04/23 03/04/23 03/04/23 06:33 07:34 10:51 WBC 6.2 RBC 3.66 L Hgb 10.0 L Hct 31.2 L MCV 85.2 MCH 27.3 MCHC 32.1 RDW 17.3 H Plt Count 244 MPV 9.1 L Immature Gran % (Auto) Neut % (Auto) Lymph % (Auto) [place] % (Auto) Eos % (Auto) Baso % (Auto) Lymph # (Auto) [place] # (Auto) Eos # (Auto) Baso # (Auto) Abs Immat Gran (auto) Absolute Neuts (auto) Absolute Nucleated RBC 0.000 Nucleated RBC % (auto) 0.0 Sodium 135 Potassium 4.3 Chloride 102 Carbon Dioxide 27 Anion Gap 10 L BUN 8 L Creatinine 0.84 Estim Creat Clear Calc 136.3 Estimated GFR > 60 POC Glucose 189 H 57 L* Random Glucose 133 H Calcium 9.5 D 03/04/23 11:15 WBC RBC Hgb Hct MCV MCH MCHC RDW Plt Count MPV Immature Gran % (Auto) Neut % (Auto) Lymph % (Auto) [place] % (Auto) Eos % (Auto) Baso % (Auto) Lymph # (Auto) [place] # (Auto) Eos # (Auto) Baso # (Auto) Abs Immat Gran (auto) Absolute Neuts (auto) Absolute Nucleated RBC Nucleated RBC % (auto) Sodium Potassium Chloride Carbon Dioxide Anion Gap BUN Creatinine Estim Creat Clear Calc Estimated GFR POC Glucose 108 Random Glucose Calcium Discharge Plan Discharge Anticipated Discharge Date/Time: 03/04/23 11:36 Patient Disposition: Home, Self-Care Discharge Diagnosis: Acute upper GI bleed Alcoholic cirrhosis with ascites Referrals: Martin Avilez MD [Primary Care Provider] - 1 Week Discharge Medications: New nadolol 20 mg Tablet 20 mg PO DAILY Qty: 30 0RF Protocol: Hold for SBP/HR < HOLD for SBP < : 90 HOLD for HR < : 60 sucralfate 1 gram Tablet 1 g PO TIDAC Qty: 90 0RF Continued Xifaxan 550 mg tablet 550 mg PO BID Qty: 60 6RF omeprazole 40 mg capsule,delayed release(DR/EC) 40 mg PO DAILY@0630 paroxetine HCl 20 mg tablet 20 mg PO DAILY ondansetron 4 mg tablet,disintegrating 4 mg PO Q8H PRN (Reason: nausea and vomiting) Qty: 14 0RF (DME) FreeStyle Lite Strips Strip See Rx Instructions .ROUTE .MEDSUPPLY Qty: 100 2RF Rx Instructions: QID (DME) lancets Misc See Rx Instructions .ROUTE .MEDSUPPLY Qty: 200 2RF Rx Instructions: 4 times daily (DME) blood-glucose meter [FreeStyle Lite Meter] Kit See Rx Instructions .ROUTE .MEDSUPPLY Qty: 1 0RF Rx Instructions: As directed (DME) pen needle, diabetic [Pen Needle] 31 gauge x 5/16 needle See Rx Instructions .ROUTE .MEDSUPPLY Qty: 1200 0RF Rx Instructions: As directed oxycodone 5 mg tablet 5 mg PO Q6H PRN (Reason: pain) Qty: 10 0RF Rx Instructions: Partial Fill upon patient request. insulin glargine 100 unit/mL (3 mL) insulin pen 20 unit subcut DAILY furosemide 40 mg tablet 60 mg PO DAILY Hold Instructions: Check with nephrology before restarting spironolactone 100 mg tablet 150 mg PO DAILY Hold Instructions: Check with nephrology before restarting insulin lispro 100 unit/mL insulin pen 1 sliding scale dose subcut QIDACHS Protocol: Insulin Correction Scale Less than or equal to 110 ---- Give (units): 0 111 to 150 Give (units): 0 151 to 200 Give (units): 2 201 to 250 Give (units): 4 251 to 300 Give (units): 6 301 to 350 Give (units): 8 Greater than 350 Give (units): 10 Call MD if Blood Glucose > : 350 hydroxyzine pamoate 25 mg capsule 25 mg PO DAILY albuterol sulfate [ProAir HFA] 90 mcg/actuation HFA aerosol inhaler 2 puff inhalation Q6H PRN (Reason: Shortness Of Breath) folic acid 1 mg tablet 1 mg PO DAILY bupropion HCl 300 mg tablet extended release 24 hr 300 mg PO DAILY thiamine HCl (vitamin B1) 100 mg tablet 100 mg PO DAILY lorazepam 0.5 mg tablet 0.5 mg PO DAILY PRN (Reason: anxiety attack) lactulose 10 gram/15 mL solution 30 ml PO TID 30 Days Qty: 2700 0RF Discharge Orders: Discharge Order (Routine); Ordered 03/04/23 Ordered By: Jaxon Amaya Diet: Advance to usual diet Activity on Discharge: As tolerated Stand Alone Forms: Patient Portal Discharge page Care Plan Goals: Take all medications as prescribed strongly recommend to abstain from alcohol, no aspirin, no NSAIDs Take nadolol 20 mg 1 tablet daily Take Carafate 3 times daily Health Concerns: Take all home medications as before Plan of Treatment: Outpatient follow-up with Dr. Hawk from Gastroenterology call for appointment Assessment: As above
--- NOTE | 2023-03-04 11:51 | MHC.CM.PN ---
order for home, self care. CM acknowledge.
== END 2023-03-04 12:38 | disposition home or self-care (01) | DRG 280 ==
LOC: HO.ED 10:09 → HO.EDOVER 12:36 → HO.IMC 14:58
PROVIDERS: Internal Medicine; Admitting Provider Student in an Organized Health Care Education/Training Program; Emergency Provider Emergency Medicine; PCP Internal Medicine; Visit Provider Hospitalist
DX: K70.31 Alcoholic cirrhosis of liver with ascites (principal); K76.6 Portal hypertension; I85.10 Secondary esophageal varices without bleeding; E11.9 Type 2 diabetes mellitus without complications; K92.1 Melena; K31.89 Other diseases of stomach and duodenum; J44.9 Chronic obstructive pulmonary disease, unspecified; F39 Unspecified mood [affective] disorder; Z87.891 Personal history of nicotine dependence; Z79.4 Long term (current) use of insulin; Z79.899 Other long term (current) drug therapy
CPT/HCPCS: 36415; 71045; 76705; 80048; 80053; 82272; 82947; 84484; 85025; 85027; 85610; 85730; 86850; 86900; 86901; 93005; 99222; 99285; J1940; J2405

== ENCOUNTER → 2023-03-03 11:58 | Outpatient (BNV) | payer MEDICAID, SELFPAY | PROVIDERS: Admitting Provider Student in an Organized Health Care Education/Training Program; Emergency Provider Emergency Medicine; PCP Internal Medicine; Visit Provider Student in an Organized Health Care Education/Training Program | DX: K92.1 Melena (principal); K74.60 Unspecified cirrhosis of liver | CPT/HCPCS: 99223; 99239 ==

== ENCOUNTER → 2023-03-13 07:15 | Outpatient (REF) | payer MEDICAID, SELFPAY ==
--- NOTE | 2023-03-13 07:37 | CA_ITS ---
Transthoracic Echocardiogram Patient (Last, First, Middle): Akash Barboza J Gender: Male Date of : 1965 Age: 57 Procedure Date: 03/13/2023 Procedure Type: Transthoracic Echocardiogram Location: OP Height: 195.58 cm Weight: 111.13 kg BSA: 2.44 m2 Heart Rate: 78 bpm BP: 118 / 72 mmHg Accountant Budget: SB Referring MD: Marcia Hawk MD Symptoms: J90 - Pleural effusion, not elsewhere classified Study Quality: Adequate w contrast ECG Rhythm: Sinus Conclusions: - The left ventricular systolic function is normal. The calculated ejection fraction is 62% by biplane method. - No obvious valvular pathology seen on this study. Findings Procedure Information Contrast agent, definity, is being given per protocol without apparent complications. Left Ventricle Normal left ventricular cavity size. There is normal left ventricular wall thickness. The left ventricular systolic function is normal. The calculated ejection fraction is 62% by biplane method. There is no evidence of regional wall motion abnormalities. Evidence suggests grade I (mild) diastolic dysfunction. Right Ventricle Normal right ventricular cavity size and systolic function. Atria Both atria are normal in size. Aortic Valve There is a normal trileaflet aortic valve. There is mild calcification of the aortic valve. There is no aortic valve stenosis. There is no aortic valve regurgitation. Mitral Valve The mitral valve appears normal. There is no mitral valve regurgitation. There is no mitral valve stenosis. Pulmonic Valve The pulmonic valve is likely normal. Tricuspid Valve There is trace tricuspid valve regurgitation. There is no evidence of pulmonary hypertension. Great Vessels The asc aorta is normal in size. Venous The inferior vena cava is normal in size and collapses greater than 50% with inspiration. Pericardium/Pleural Prominent epicardial adipose tissue noted. There is a trivial pericardial effusion. There is a large left sided pleural effusion. Prior Study Comparison No significant change compared to prior study dated: 05/25/2022. Recommendations, Care & Conclusions No obvious valvular pathology seen on this study. Measurements 2D Linear Measurements IVSd: 0.90 0.6-0.9/0.6-1.0 cm LVIDd: 5.00 3.9-5.3/4.2-5.9 cm LVIDd Index: 2.05 2.4-3.2/2.2-3.1 cm/m2 LVIDs: 2.90 2.0-3.6 cm LVPWd: 0.80 0.7-1.1 cm LA Diam: 3.20 2.7-3.8/3.0-4.0 cm LAIDs Index: 1.31 1.5-2.3 cm/m2 LV Mass: 182.79 67-162/88-224 g LV Mass Index: 74.92 43-95/49-115 g/m2 LVOT Diam: 2.50 3.0+(-)1.3 cm 2D Systolic Function EF 4C: 63.30 >55% EF 2C: 61.30 >55% EF BiP: 62.00 >55% Mitral Valve MV Pk E: 0.71 MV PK A: 0.75 MV Decel Time: 234.00 E/A: 0.90 E'Lateral: 10.10 E'Medial: 5.44 E/E' Med: 13.00 E/E' Lat: 7.00 PHT: 68.00 MVA PHT: 3.24 Decel [place]: 3.02 Aortic Valve AoV Pk Atul: 1.66 AoV Mn Atul: 1.24 AoV VTI: 0.33 AoV Pk Grad: 11.00 Aov Mn Grad: 7.00 DOYLE Cont.VTI: 3.58 LVOT LVOT Pk Atul: 1.37 LVOT Mn Atul: 0.98 LVOT VTI: 0.24 LVOT Pk Grad: 8.00 LVOT Mn Grad: 4.00 LVOT Diam: 2.50 LVOT Area: 4.91 Diastolic Function MV Pk E: 0.71 MV Pk A: 0.75 E/A: 0.90 E'Medial: 5.44 E/E' Med: 13.00 E' Laterial: 10.10 E/E' Lat: 7.00 Right Ventricle TAPSE (mm): 21.40 TVS' Atul: 13.60 Tricuspid Valve RA Press: 3.00 Great Vessels Aorta Sinus of Valsalva: 3.40 2.0-3.5 cm Ao Asc: 3.90 2.1-3.4 cm Pulmonary Veins Pulm Vein S/D 1.50 Pulmonary Valve PV Pk Atul: 1.01 Peak PV Grad: 4.00 Updated in Other Vendor System with Status of Final Juan C Bolivar MD electronically signed on 03/14/2023 10:04:42 AM with status of Final
[2023-03-13 08:17] LABS: Anion Gap 10 (12-20); Blood Urea Nitrogen 9 mg/dL (9-16); Calcium 9.2 mg/dL (8.4-10.2); Carbon Dioxide 26 mmol/L (22-29); Chloride 105 mmol/L (96-108); Estimated Glomerular Filt Rate > 60; Glucose Random 119 mg/dL (60-115); Potassium 4.4 mmol/L (3.3-5.1); Sodium 137 mmol/L (135-145)
== END ==
LOC: HO.CARD 07:15
PROVIDERS: PCP Internal Medicine; Visit Provider Internal Medicine
DX: R18.8 Other ascites (principal); J90 Pleural effusion, not elsewhere classified
CPT/HCPCS: 36415; 80048; 93306; Q9957

== ENCOUNTER → 2023-03-13 07:37 | Outpatient (BNV) | payer MEDICAID, SELFPAY | PROVIDERS: PCP Internal Medicine; Visit Provider Internal Medicine | DX: I35.8 Other nonrheumatic aortic valve disorders (principal); I51.9 Heart disease, unspecified | CPT/HCPCS: 93306 ==

== ENCOUNTER 2023-03-28 11:50 | Outpatient (REF) | payer OTHER, MEDICAID, SELFPAY ==
[2023-03-28 14:23] LABS: Anion Gap 13 (12-20); Blood Urea Nitrogen 10 mg/dL (9-16); Calcium 8.9 mg/dL (8.4-10.2); Carbon Dioxide 25 mmol/L (22-29); Chloride 101 mmol/L (96-108); Estimated Glomerular Filt Rate > 60; Glucose Random 146 mg/dL (60-115); Potassium 4.7 mmol/L (3.3-5.1); Sodium 134 mmol/L (135-145)
== END 2023-03-28 11:51 | disposition home or self-care (01) ==
LOC: HO.LAB 11:50
PROVIDERS: Visit Provider Internal Medicine
DX: K70.30 Alcoholic cirrhosis of liver without ascites (principal)
CPT/HCPCS: 36415; 80048

== ENCOUNTER 2023-04-09 06:14 | Outpatient (REF) | payer OTHER, SELFPAY ==
--- NOTE | ~2023-04-09 | XR_ITS ---
EXAMINATION: XR CHEST CLINICAL INFORMATION: Dyspnea COMPARISON: Chest x-rays of 03/03/2023 and 12/05/2022. Selected images of the chest CT of 04/19/2022 TECHNIQUE: 2 views of the chest were obtained. FINDINGS: There is interval increase in the desiccation in the left lower lung zone with the increased blunting of the left lateral costophrenic sulcus. Well aerated and left upper lung demonstrate no evidence of focal airspace opacities. A 0.5 cm nodular density projecting over the posterior segment of the left third rib is a stable finding since multiple previous mammograms and corresponds to the small sclerotic focus noted in the rib here which is best seen on the chest CT of 04/19/2022. The finding likely represents a bone island. The right lung is clear. No right pleural effusion. No evidence of pulmonary edema or pneumothorax. Cardiomediastinal silhouette is unchanged. Regional skeleton is intact. XR/XR chest 2V IMPRESSION: Moderate to large left pleural effusion, increased compared to previous x-rays. Associated left basilar consolidation may represent atelectasis, however focal mass lesion or pneumonic consolidation here would be difficult to exclude.
== END 2023-04-09 06:15 | disposition home or self-care (01) ==
LOC: HO.XRAY 06:14
PROVIDERS: PCP Internal Medicine; Referring Provider Hospitalist; Visit Provider Internal Medicine Pulmonary Disease
DX: R06.00 Dyspnea, unspecified (principal)
CPT/HCPCS: 71046

== ENCOUNTER 2023-04-09 06:39 | Inpatient (IN) | payer OTHER, SELFPAY ==
--- NOTE | ~2023-04-09 | US_ITS ---
EXAMINATION: ULTRASOUND-GUIDED THORACENTESIS CLINICAL INFORMATION: Left pleural effusion COMPARISON: Previous chest x-ray and chest CTA from earlier the same day TECHNIQUE: Received and risks and benefits including bleeding, infection and pneumothorax were discussed with the patient and informed consent was obtained. The left posterior lateral chest was prepped and draped in the usual sterile fashion. The skin and soft tissues were anesthetized with 1% lidocaine plain. Using ultrasound guidance and a 4 Serbian one stick system, access to the left pleural effusion was obtained. 1.5 L of serous sanguinous/slightly blood-tinged fluid was removed. Diagnostic specimen was sent. FINDINGS: There is a large left pleural effusion. US/US thoracentesis IMPRESSION: Ultrasound-guided left thoracentesis.
--- NOTE | ~2023-04-09 | US_ITS ---
EXAMINATION: US VENOUS ULTRASOUND WITH DOPPLER LOWER EXTREMITY, BILATERAL CLINICAL INFORMATION: Pulmonary embolism. Rule out DVT. COMPARISON: None available. TECHNIQUE: Ultrasound of the deep veins is performed from the hip to the calf with compression sonography and color and pulse Doppler assessment. Spectral analysis with color-flow imaging is performed. FINDINGS: RIGHT: There is normal venous compression and respiratory variation and augmented flow. The visualized common femoral vein, superficial femoral vein, profunda femoral vein, popliteal vein, and the trifurcation region shows no evidence of deep venous thrombosis. There is no significant popliteal fossa cyst. LEFT: There is normal venous compression and respiratory variation and augmented flow. The visualized common femoral vein, superficial femoral vein, profunda femoral vein, popliteal vein, and the trifurcation region shows no evidence of deep venous thrombosis. There is no significant popliteal fossa cyst. US/US venous duplex LE BI IMPRESSION: No DVT demonstrated in the bilateral lower extremity.
--- NOTE | ~2023-04-09 | CT_ITS ---
EXAMINATION: CT ANGIOGRAM OF THE CHEST WITH AND WITHOUT CONTRAST (CT PULMONARY ANGIOGRAM FOR PE) CLINICAL INFORMATION: Reason for Exam sob + dimer COMPARISON: 11/27/2022 TECHNIQUE: Prior to contrast administration, noncontrast localization images were obtained. Subsequently, multidetector volumetric imaging was performed from the thoracic inlet to below the diaphragms following the administration of 65 mL Omnipaque 350 intravenous contrast. No contrast reaction reported Sagittal, coronal, and MIP oblique sagittal reformatted images were obtained on the CT workstation, uploaded to PACS, and reviewed. This CT examination was performed using dose optimization techniques as appropriate, variously including the following: *Automated exposure control *Adjustment of mA and/or kV according to patient size (this includes techniques or standardized protocols for targeted exams where dose is matched to indication/reason for exam; i.e. extremities or head) *Use of iterative reconstruction technique Total exam dose-length product 396 mGy-cm FINDINGS: QUALITY OF STUDY/CONTRAST BOLUS: Suboptimal. PULMONARY ARTERIES: Few filling defects are likely demonstrated within the upper lobes. THORACIC AORTA: No aneurysm. LUNG: Left lower lobe consolidation. No suspicious pulmonary nodule. PLEURA: Large left pleural effusion. Trace right pleural effusion. MEDIASTINUM: Few subcentimeter mediastinal lymph nodes. No bulky axillary or hilar lymphadenopathy. Heart size is normal. No pericardial effusion. No evidence of septal bowing or right heart strain. CORONARY ARTERY CALCIFICATION: Mild. CHEST WALL: Gynecomastia. OSSEOUS STRUCTURES: No destructive bone lesions. UPPER ABDOMEN: Nodular surface contour of the liver. Ascites. No reflux of contrast into the hepatic veins to suggest elevated right heart pressures. CT/CT angio chest PE protocol IMPRESSION: Filling defects are likely demonstrated within the upper lobes positive for pulmonary embolus. Evaluation is limited by motion artifact and suboptimal contrast bolus timing. Left lower lobe consolidation and large left pleural effusion. Nodular surface contour of the liver likely representing cirrhosis with moderate ascites. VTE: positive
--- NOTE | ~2023-04-09 | XR_ITS ---
EXAMINATION: XR CHEST CLINICAL INFORMATION: Post left thoracentesis. COMPARISON: Previous of the same day. TECHNIQUE: Frontal view of the chest was obtained. FINDINGS: The cardiomediastinal silhouette is stable. There has been some interval improvement of the layering left mid to lower lung field opacity with residual lower lung field opacity. There is no pneumothorax. The right lung is clear. The bony structures and soft tissues are unremarkable. XR/XR chest 1V IMPRESSION: Improved left pleural effusion status post thoracentesis with apparent significant residual pleural effusion with likely associated atelectasis. No pneumothorax identified.
[2023-04-09 06:46] VITALS: BP 141/87; PULSE 107; RESP 22; TEMP 37.1; O2SAT 97; BMI 28.5
--- NOTE | 2023-04-09 06:52 | ECG_ITS ---
Test Reason : CP Blood Pressure : / mmHG Vent. Rate : 102 BPM Atrial Rate : 102 BPM P-R Int : 168 ms QRS Dur : 084 ms QT Int : 392 ms P-R-T Axes : 042 023 028 degrees QTc Int : 510 ms Sinus tachycardia Otherwise normal ECG When compared with ECG of 03-MAR-2023 08:47, No significant change was found Referred By: Chris Graham Electronically Signed By:SILVIA POWERS MD
[2023-04-09 07:02] LABS: MANUAL DIFF FLAG NO
--- NOTE | 2023-04-09 07:04 | ED_ITS ---
HPI - General Adult General Chief complaint: Dyspnea Stated complaint: Difficulty breathing ?xray results Time Seen by Provider: 04/09/23 06:47 Source: patient Mode of arrival: ambulatory Limitations: no limitations History of Present Illness HPI narrative: 57-year-old male past medical history of alcohol use disorder with cirrhosis, diabetes, elevated LFTs, esophageal varices, GERD, gout, hydro pneumothorax, pericardial effusion, peripheral neuropathy, pleural effusions which are recurrent in nature and tachycardia presenting to the emergency department for evaluation of shortness of breath worsening over the past few days, 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 He reports he is short of breath with exertion and better at rest. Reports he still smoking. Denies recent travel. Not on a blood thinner. No history of DVT or PE. Reports discomfort in his chest with deep breathing. Denies fevers, chills, nausea, vomiting, abdominal pain, headache, vision changes, dizziness, weakness. Related Data Home Medications Medication Instructions Recorded Confirmed bupropion HCl 300 mg 24 hr tablet, 300 mg PO DAILY 06/10/21 04/09/23 extended release folic acid 1 mg tablet 1 mg PO DAILY 06/10/21 04/09/23 thiamine HCl (vitamin B1) 100 mg 100 mg PO DAILY 06/10/21 04/09/23 tablet albuterol sulfate 90 mcg/actuation 2 puff inhalation Q6H PRN 01/26/22 04/09/23 aerosol inhaler (ProAir HFA) Shortness Of Breath hydroxyzine pamoate 25 mg capsule 25 - 50 mg PO DAILY PRN itching 01/26/22 04/09/23 lorazepam 0.5 mg tablet 0.5 mg PO DAILY PRN anxiety attack 07/13/22 04/09/23 paroxetine HCl 20 mg tablet 20 mg PO DAILY 07/13/22 04/09/23 insulin glargine 100 unit/mL (3 20 unit subcut DAILY 11/27/22 04/09/23 mL) subcutaneous pen insulin lispro 100 unit/mL 1 sliding scale dose subcut QIDACHS 03/03/23 04/09/23 subcutaneous pen Previous Rx's Medication Instructions Recorded blood sugar diagnostic (FreeStyle #100 ea 10/30/22 Lite Strips) blood-glucose meter (FreeStyle #1 ea 10/30/22 Lite Meter kit) lancets #200 ea 10/30/22 ondansetron 4 mg disintegrating 4 mg PO Q8H PRN nausea and 10/30/22 tablet vomiting #14 tabs pen needle, diabetic 31 gauge x #1,200 ea 10/31/22 5/16 (Pen Needle) lactulose 10 gram/15 mL oral 30 ml PO TID 30 days #2,700 mL 12/05/22 solution nadolol 20 mg tablet 20 mg PO DAILY #30 tabs 03/04/23 sucralfate 1 gram tablet 1 g PO TIDAC #90 tabs 03/04/23 furosemide 40 mg tablet 80 mg (2 x 40 mg) PO DAILY 90 days 03/14/23 #180 tabs spironolactone 100 mg tablet 200 mg (2 x 100 mg) PO DAILY 90 03/14/23 days #180 tabs omeprazole 40 mg capsule,delayed 40 mg PO DAILY@0630 #90 caps 03/19/23 release rifaximin 550 mg tablet (Xifaxan) 550 mg PO BID #60 tabs 03/26/23 Allergies Allergy/AdvReac Type Severity Reaction Status Date / Time No Known Drug Allergies Allergy Mild NONE Verified 02/05/23 09:30 [NO KNOWN DRUG ALLERGIES] Review of Systems 2 Review of Systems: Constitutional : No Weight loss, No Fever, No Chills, No Fatigue, No Malaise ENT/Mouth : No sore throat, No Rhinorrhea Eyes: No Eye Pain, No Swelling, No Redness Cardiovascular : + Chest Pain, + SOB, + Dyspnea on Exertion, + Orthopnea, No Edema, No Palpitations Respiratory : No Cough, No Sputum, No Wheezing Gastrointestinal : No Nausea, No Vomiting, No Diarrhea, No Constipation, No abdominal Pain, No Hematochezia, No Melena Genitourinary : No Dysuria, No Urinary Frequency, No Hematuria, Musculoskeletal : No joint pain, No Myalgias, No Joint Swelling Skin : No Skin Lesions, No rash Neuro : No Weakness, No Numbness, No Dizziness, No Headache Psych : No Anxiety/Panic, No Depression All other systems reviewed and are negative Yes all other systems are reviewed and are negative PMFSH Past Medical History Attestation statement: The following information was validated with the patient. Source: old records reviewed and nursing notes reviewed Medical History Cirrhosis of liver Diabetes Alcohol use disorder, moderate, dependence Recurrent left pleural effusion Pleural effusion Pericardial effusion Tachycardia Dyspnea Hydropneumothorax Pleural effusion on right Decompensation of cirrhosis of liver Cirrhosis GERD (gastroesophageal reflux disease) Esophageal varices Chronic abdominal pain Gout Peripheral neuropathy Alcoholism Elevated LFTs Surgical History Hx of esophagogastroduodenoscopy History of thoracentesis H/O colonoscopy H/O cervical spine surgery H/O hemicolectomy Family History Family History Mother Cancer Sister Cancer Social History Social History Household Members: Other Household Members Other:: Roomate Housing: Apartment Do you presently have visiting nurse or other home services: No Alcohol intake: current Alcohol intake frequency: holidays/special occasions only Alcohol type: hard liquor Patient Tobacco Use Status: Former Tobacco user Quit Date: 1 mth ago Tobacco use type: Cigarette Years Smoked: 30 e-Cigarette/Vaping Use: Currently Using Second Hand Smoke Exposure: No Substance Use Type: Marijuana Advance Directives Date on File: 11/27/22 service: No Current occupational status: unemployed Physical Exam ED Vital Signs: Vital Signs - 24 hr 04/09/23 06:46 04/09/23 09:51 04/09/23 12:33 Temperature 98.7 F Pulse Rate 107 H 101 H 97 Respiratory Rate 22 H 21 H 18 Blood Pressure 141/87 H 148/89 H 137/82 Pulse Oximetry 97 96 95 Oxygen Delivery Method Room Air Room Air Room Air 04/09/23 14:23 04/09/23 15:33 04/09/23 18:05 Temperature 98.4 F 98.8 F Pulse Rate 103 H 102 H 104 H Respiratory Rate 20 19 15 Blood Pressure 127/70 125/93 H 123/89 Pulse Oximetry 96 97 96 Oxygen Delivery Method Room Air Room Air Room Air BMI result Body Mass Index 29.4 vss stable slight tachycardia Appearance: Alert.? Oriented X3.? No acute distress.? Head: Normocephalic, atraumatic, no step-offs or deformities Eyes: Pupils equal, round and reactive to light.? CVS: Normal heart rate and rhythm.? Pulses normal.? Respiratory: No respiratory distress.? Breath sounds diminished b/l L>R.? Abdomen: Soft and nontender.? Skin: Skin warm and dry.? Normal skin color.? Normal skin turgor.? Extremities: No lower extremity edema.? No calf ttp. 5/5 strength to bilateral upper and lower extremities Neuro: Oriented X 3.? No motor deficit.? No sensory deficit. CN 2-12 intact Course Reevaluation(s) Reevaluation #1: Patient's CBC with a normocytic anemia at baseline. Chemistry with low potassium 3.2 will give oral potassium at this time. Chemistry appears to be around baseline, no acute findings. Slightly low albumin likely secondary to cirrhosis no need for intervention at this time. Coags with elevated D-dimer. CT ordered and pending. Time: 08:45 Reevaluation #2: Discuss this case with Dr. Khan thoracic who evaluated patient at bedside patient will get a tap later today to drain the effusion. Time: 09:07 Reevaluation #3: He CTA revealing filling defects within the upper lobes positive for PE, left lower lobe consolidation an large left pleural effusion. Nodular surface contour of the liver likely representing cirrhosis. Discussed this case with Dr. Khan again, plan is to do thoracentesis as soon as possible followed by starting heparin for pulmonary embolism. Would like to start heparin after the thoracentesis. discussed results with patient he verbalizes understanding of plan and diagnosis likely hospital admission Time: 09:51 Additional Reevaluation(s): Dr Mitchell recommends only starting the heparin drip after the procedure w/o the bolus ( should wait a few hours prior to giving the bolus) and to look for signs of bleeding. Called her at extension [phone] Medications Administered Generic Name Dose Route Start Last Admin Trade Name Freq PRN Reason Stop Dose Admin Heparin Sodium/Sodium Chloride 25,000 unit in 250 mls @ 0 mls/hr 04/09/23 10:45 04/09/23 12:42 Heparin Sodium,Porcine/1/2ns IVCONT 14 units/kg/hr .Q0M RYAN 15.75 mls/hr Administration Protocol Per Protocol Insulin Human Lispro 0 unit 04/09/23 16:30 04/09/23 18:22 Insulin Lispro 100 Unit/Ml 3 Ml Vial SUBCUT Not Given QIDACHS [facility] Protocol Lactulose 20 gm 04/09/23 15:00 04/09/23 15:40 Lactulose 20 Gm/30 Ml Solution PO 20 gm TID RYAN Administration Sodium Chloride 3 ml 04/09/23 16:00 04/09/23 16:31 0.9 % Sodium Chloride Flush 3 Ml Syringe IVFLUSH Not Given QSHIFT [facility] Sucralfate 1 gm 04/09/23 16:30 04/09/23 18:05 Sucralfate 1 Gm Tablet PO 1 gm TIDAC RYAN Administration Discontinued Medications Generic Name Dose Route Start Last Admin Trade Name Freq PRN Reason Stop Dose Admin Heparin Sodium (Porcine) 8,700 unit 04/09/23 09:49 04/09/23 15:40 Heparin Sodium,Porcine 5,000 Unit/Ml Vial 80 unit/kg (8700 unit) 04/09/23 09:50 8,700 unit IVPUSH Administration ONCE ONE Iohexol 65 ml 04/09/23 08:35 04/09/23 08:36 Iohexol 350 Mg/Ml 100 Ml Infus..Btl IV 04/09/23 08:36 65 ml ONCE ONE Administration Lidocaine HCl 5 ml 04/09/23 12:15 04/09/23 12:15 Lidocaine Hcl 1 % Mpf 5 Ml Vial SUBCUT 04/09/23 12:16 5 ml ONCE ONE Administration Oxycodone HCl 5 mg 04/09/23 18:35 04/09/23 18:40 Oxycodone Hcl Immed Release 5 Mg Tablet PO 04/09/23 18:36 5 mg ONCE ONE Administration Potassium Chloride 40 meq 04/09/23 07:35 04/09/23 07:48 Potassium Chloride Packet 20 Meq Packet PO 04/09/23 07:36 40 meq ONCE ONE Administration Medical Decision Making Medical Decision Making [facility] Narrative: [id number] 57 yo m presents w/ worsening sob over the past few days told he has an abnml xray per pulmonology doctor on-call PE w/ No respiratory distress.? Breath sounds diminished b/l L>R.? Concerns for pleural effusion most likely. Will rule out CHF and PE. Unlikely PNA, atypical presentation of ACS, dissection, pneumothorax. Plan- labs, imaging, ekg Differential Diagnosis Differential Diagnoses: The differential diagnosis associated with the presentation includes Concerns for pleural effusion most likely. Will rule out CHF and PE. Unlikely PNA, atypical presentation of ACS, dissection, pneumothorax. Admission/Observation Consideration of admission/observation: Escalation of care including admission/observation considered Lab Data MDM Lab Attestation statement: I reviewed the patient's lab results. 04/09/23 06:56 04/09/23 06:56 Labs: Lab Results 04/09/23 04/09/23 04/09/23 Range/Units 06:56 10:03 11:45 WBC 5.1 (4.8-10.8) X10*3/uL RBC 3.80 L (4.60-5.80) X10*6/uL Hgb 10.2 L (14.0-18.0) g/dl Hct 32.1 L (42.0-52.0) % MCV 84.5 (80.0-98.0) fL MCH 26.8 L (27.0-33.0) pg MCHC 31.8 (31.0-36.0) g/dl RDW 17.7 H (11.0-16.0) % Plt Count 186 (160-400) X10*3/uL MPV 9.0 L (9.4-12.4) fL Immature Gran % (Auto) 0.4 (0.0-0.4) % Neut % (Auto) 60.7 (45-73) % Lymph % (Auto) 19.1 L (20-40) % [place] % (Auto) 12.7 H (2-11) % Eos % (Auto) 5.3 H (0-4) % Baso % (Auto) 1.8 (0-2) % Lymph # (Auto) 1.0 L (1.2-4.9) X10*3/uL [place] # (Auto) 0.7 (0.1-1.2) X10*3/uL Eos # (Auto) 0.3 (0.0-0.4) X10*3/uL Baso # (Auto) 0.1 (0.0-0.2) X10*3/uL Abs Immat Gran (auto) 0.02 (0.00-0.03) X10*3/uL Absolute Neuts (auto) 3.1 (2.0-8.3) x10*3/uL Absolute Nucleated RBC 0.000 (0.0-0.012) X10*3/uL Nucleated RBC % (auto) 0.0 (0.0-0.2) /100WBC PT 13.9 H (11.1-13.3) SEC INR 1.1 (0.9-1.1) aPTT Heparin Protocol 30.3 L (53-77.9) SEC D-Dimer High Sensitivty 971 NG/ML Sodium 138 (135-145) mmol/L Potassium 3.2 L D (3.3-5.1) mmol/L Chloride 103 (96-108) mmol/L Carbon Dioxide 22 (22-29) mmol/L Anion Gap 16 (12-20) BUN 7 L (9-16) mg/dL Creatinine 0.78 (0.5-1.4) mg/dL Estim Creat Clear Calc 146.8 Estimated GFR > 60 Random Glucose 130 H (60-115) mg/dL Calcium 8.7 (8.4-10.2) mg/dL Magnesium 1.9 (1.6-2.6) mg/dL Total Bilirubin 1.6 H (0.0-1.0) mg/dL AST 39 H (5-37) U/L ALT 21 (0-40) U/L Alkaline Phosphatase 227 H (39-117) U/L Troponin I High Sens < 2.7 (<3.5-35.0) ng/L B-Natriuretic Peptide 20 (<100) pg/mL Total Protein 8.0 (6.5-8.0) g/dL Albumin 3.3 L (3.5-5.0) g/dL Urine Color Urine Appearance Urine pH (5.0-9.0) Ur Specific [place] (1.005-1.025) Urine Protein (Neg-Trace) mg/dL Urine Glucose (UA) (Negative) mg/dL Urine Ketones (Negative) mg/dL Urine Blood (Negative) Urine Nitrite (Negative) Ur Leukocyte Esterase (Negative) Urine RBC (0-2) /HPF Urine WBC (0-5) /HPF Ur Squamous Epith Cells (0-2) /HPF Urine Bacteria (None Seen) Hyaline Casts (0-2) /LPF Peritoneal WBC Cancelled Peritoneal RBC Cancelled Periton Neutrophils Cancelled Periton Lymphocytes Cancelled Peritoneal Monocytes Cancelled Peritoneal Eosinophils Cancelled Peritoneal Basophils Cancelled Peritoneal Other Cells Cancelled Peritoneal Tot Protein Cancelled Peritoneal LDH Cancelled Peritoneal Glucose Cancelled Pleural WBC 3.000 X10*3/uL Pleural RBC 0.063 X10*6/uL Pleural Neutrophils 6 % Pleural Lymphocytes 54 % Pleural Monocytes 15 % Pleural Other Cells 25 % Pleural Total Protein 3.8 GM/DL Pleural LDH 191 U/L Pleural Glucose 126 MG/DL COVID-19 ([facility]) Negative (Negative) COVID-19 Clin Com See Note 04/09/23 Range/Units 18:18 WBC (4.8-10.8) X10*3/uL RBC (4.60-5.80) X10*6/uL Hgb (14.0-18.0) g/dl Hct (42.0-52.0) % MCV (80.0-98.0) fL MCH (27.0-33.0) pg MCHC (31.0-36.0) g/dl RDW (11.0-16.0) % Plt Count (160-400) X10*3/uL MPV (9.4-12.4) fL Immature Gran % (Auto) (0.0-0.4) % Neut % (Auto) (45-73) % Lymph % (Auto) (20-40) % [place] % (Auto) (2-11) % Eos % (Auto) (0-4) % Baso % (Auto) (0-2) % Lymph # (Auto) (1.2-4.9) X10*3/uL [place] # (Auto) (0.1-1.2) X10*3/uL Eos # (Auto) (0.0-0.4) X10*3/uL Baso # (Auto) (0.0-0.2) X10*3/uL Abs Immat Gran (auto) (0.00-0.03) X10*3/uL Absolute Neuts (auto) (2.0-8.3) x10*3/uL Absolute Nucleated RBC (0.0-0.012) X10*3/uL Nucleated RBC % (auto) (0.0-0.2) /100WBC PT (11.1-13.3) SEC INR (0.9-1.1) aPTT Heparin Protocol (53-77.9) SEC D-Dimer High Sensitivty NG/ML Sodium (135-145) mmol/L Potassium (3.3-5.1) mmol/L Chloride (96-108) mmol/L Carbon Dioxide (22-29) mmol/L Anion Gap (12-20) BUN (9-16) mg/dL Creatinine (0.5-1.4) mg/dL Estim Creat Clear Calc Estimated GFR Random Glucose (60-115) mg/dL Calcium (8.4-10.2) mg/dL Magnesium (1.6-2.6) mg/dL Total Bilirubin (0.0-1.0) mg/dL AST (5-37) U/L ALT (0-40) U/L Alkaline Phosphatase (39-117) U/L Troponin I High Sens (<3.5-35.0) ng/L B-Natriuretic Peptide (<100) pg/mL Total Protein (6.5-8.0) g/dL Albumin (3.5-5.0) g/dL Urine Color Dark Yellow Urine Appearance Clear Urine pH 5.5 (5.0-9.0) Ur Specific [place] >= 1.030 H (1.005-1.025) Urine Protein Trace (Neg-Trace) mg/dL Urine Glucose (UA) Negative (Negative) mg/dL Urine Ketones Trace (Negative) mg/dL Urine Blood Negative (Negative) Urine Nitrite Positive H (Negative) Ur Leukocyte Esterase Trace H (Negative) Urine RBC 0-2 (0-2) /HPF Urine WBC 0-5 (0-5) /HPF Ur Squamous Epith Cells 0-2 (0-2) /HPF Urine Bacteria None Seen (None Seen) Hyaline Casts 0-2 (0-2) /LPF Peritoneal WBC Peritoneal RBC Periton Neutrophils Periton Lymphocytes Peritoneal Monocytes Peritoneal Eosinophils Peritoneal Basophils Peritoneal Other Cells Peritoneal Tot Protein Peritoneal LDH Peritoneal Glucose Pleural WBC X10*3/uL Pleural RBC X10*6/uL Pleural Neutrophils % Pleural Lymphocytes % Pleural Monocytes % Pleural Other Cells % Pleural Total Protein GM/DL Pleural LDH U/L Pleural Glucose MG/DL COVID-19 ([facility]) (Negative) COVID-19 Clin Com Independent Interpretation I performed an independent interpretation of an: EKG ( ventricular rate of 102, HI normal, QRS normal, QT / QTC normal. EKG with sinus tachycardia no ST elevations or inversions concerning for acute ischemia), Plain X-Ray and CT Scan ( VTEpositive large effusion and consolidation) Radiology Impression Discussion of test interpretation with radiology: I have reviewed the radiologist's reading. External Record Review External record reviewed: Inpatient record, Office record, Outpatient record, Prior outpatient labs, Prior outpatient radiology, Primary care record and Outside ED record Chronic Conditions Patient?s care impacted by: Diabetes and Other (alcoholism, cirrhosis ) Critical Care Time Critical Care Time Critical Care Time: Yes Total Critical Care Time: 45 Attestation: I attest to this time spent taking care of the patient, obtaining history, physical, reviewing labs, imaging, speaking to my attending, speaking to specialist. Discharge Plan Discharge Clinical Impression: Shortness of breath, Pleural effusion, Pulmonary embolism, bilateral Patient Disposition: Admitted As Inpatient
[2023-04-09 07:05] LABS: Basophils Absolute Auto 0.1 X10*3/uL (0.0-0.2); Basophils Percent Auto 1.8 % (0-2); Eosinophils Absolute Auto 0.3 X10*3/uL (0.0-0.4); Eosinophils Percent Auto 5.3 % (0-4); Hematocrit 32.1 % (42.0-52.0); Hemoglobin 10.2 g/dl (14.0-18.0); Imm Gran Abs Auto 0.02 X10*3/uL (0.00-0.03); Imm Gran Pct Auto 0.4 % (0.0-0.4); Lymphocytes Percent Auto 19.1 % (20-40); Mean Corpuscular HGB Conc 31.8 g/dl (31.0-36.0); Mean Corpuscular Hemoglobin 26.8 pg (27.0-33.0); Mean Corpuscular Volume 84.5 fL (80.0-98.0); Monocytes Absolute Auto 0.7 X10*3/uL (0.1-1.2); Monocytes Percent Auto 12.7 % (2-11); Neutrophils Absolute Auto 3.1 x10*3/uL (2.0-8.3); Neutrophils Percent Auto 60.7 % (45-73); Platelet Count 186 X10*3/uL (160-400); Red Cell Distribution Width 17.7 % (11.0-16.0); White Blood Count 5.1 X10*3/uL (4.8-10.8)
[2023-04-09 07:13] LABS: INTERNATIONAL NORM RATIO 1.1 (0.9-1.1); Prothrombin Time 13.9 SEC (11.1-13.3)
[2023-04-09 07:15] LABS: D Dimer High Sensitivity 971 NG/ML
[2023-04-09 07:20] LABS: COVID-19 Test Negative (Negative); IDNOW Serial# 08D9AD1C
[2023-04-09 07:21] LABS: Alanine Aminotransferase 21 U/L (0-40); Albumin Level 3.3 g/dL (3.5-5.0); Alkaline Phosphatase 227 U/L (39-117); Anion Gap 16 (12-20); Aspartate Amino Transferase 39 U/L (5-37); Bilirubin Total 1.6 mg/dL (0.0-1.0); Blood Urea Nitrogen 7 mg/dL (9-16); Calcium 8.7 mg/dL (8.4-10.2); Carbon Dioxide 22 mmol/L (22-29); Chloride 103 mmol/L (96-108); Creatinine Clr Calc Pharmacy 146.8; Estimated Glomerular Filt Rate > 60; Glucose Random 130 mg/dL (60-115); Magnesium 1.9 mg/dL (1.6-2.6); Potassium 3.2 mmol/L (3.3-5.1); Sodium 138 mmol/L (135-145)
[2023-04-09 07:25] LABS: B Type Natriuretic Peptide 20 pg/mL (<100)
[2023-04-09 07:29] LABS: Troponin-I High Sensitivity < 2.7 ng/L (<3.5-35.0)
--- NOTE | 2023-04-09 07:44 | PC.NURSE ---
alert, nad, asked for water, npo per PA, pt aware of care plan
[2023-04-09] MEDS: Potassium Chloride Packet 20 MEQ PACKET 40 MEQ PO (07:48)
[2023-04-09] MEDS: iohexoL 350 MG/ML 100 ML INFUS..BTL 65 ML IV (08:36)
--- NOTE | 2023-04-09 09:32 | HO.THORCON_ITS ---
History of Present Illness Consult details Consult date: 04/09/23 Narrative: Patient is a 57-year-old male with a known history of ETOH abuse, Ganesh cirrhosis with multiple complications from this including esophageal varices and ascites. Patient has had multiple paracenteses and thoracenteses in the past. Presents now with progressive worsening shortness of breath and workup demonstrates a recurrence of a left pleural effusion. Chart was reviewed patient evaluated. [facility] Past Medical History Medical History Cirrhosis of liver Diabetes Alcohol use disorder, moderate, dependence Recurrent left pleural effusion Pleural effusion Pericardial effusion Tachycardia Dyspnea Hydropneumothorax Pleural effusion on right Decompensation of cirrhosis of liver Cirrhosis GERD (gastroesophageal reflux disease) Esophageal varices Chronic abdominal pain Gout Peripheral neuropathy Alcoholism Elevated LFTs Family History Family History Mother Cancer Sister Cancer Surgical History Surgical History Hx of esophagogastroduodenoscopy History of thoracentesis H/O colonoscopy H/O cervical spine surgery H/O hemicolectomy Social History Social History Household Members: Other Household Members Other:: Roomate Housing: Apartment Do you presently have visiting nurse or other home services: No Alcohol intake: current Alcohol intake frequency: holidays/special occasions only Alcohol type: hard liquor Patient Tobacco Use Status: Former Tobacco user Quit Date: 1 mth ago Tobacco use type: Cigarette Years Smoked: 30 e-Cigarette/Vaping Use: Currently Using Second Hand Smoke Exposure: No Substance Use Type: Marijuana Advance Directives: Yes Advance Directives on File: Yes Advance Directives Date on File: 11/27/22 service: No Current occupational status: unemployed Meds Allergies Allergy/AdvReac Type Severity Reaction Status Date / Time No Known Drug Allergies Allergy Mild NONE Verified 02/05/23 09:30 [NO KNOWN DRUG ALLERGIES] Home Medications Medication Instructions Recorded Confirmed Last Taken Type bupropion HCl 300 mg 24 hr tablet, 300 mg PO DAILY 06/10/21 03/03/23 03/02/23 History extended release folic acid 1 mg tablet 1 mg PO DAILY 06/10/21 03/03/23 03/02/23 History thiamine HCl (vitamin B1) 100 mg 100 mg PO DAILY 06/10/21 03/03/23 03/02/23 History tablet albuterol sulfate 90 mcg/actuation 2 puff inhalation Q6H PRN 01/26/22 03/03/23 Unknown History aerosol inhaler (ProAir HFA) Shortness Of Breath hydroxyzine pamoate 25 mg capsule 25 mg PO DAILY itching 01/26/22 03/03/23 03/02/23 History lorazepam 0.5 mg tablet 0.5 mg PO DAILY PRN anxiety attack 07/13/22 03/03/23 10/27/22 History paroxetine HCl 20 mg tablet 20 mg PO DAILY 07/13/22 03/03/23 03/02/23 History insulin glargine 100 unit/mL (3 20 unit subcut DAILY 11/27/22 03/03/23 03/02/23 History mL) subcutaneous pen insulin lispro 100 unit/mL 1 sliding scale dose subcut QIDACHS 03/03/23 03/03/23 03/02/23 History subcutaneous pen Physical Exam 2 Vital Signs: Vital Signs: Last Vital Signs Temp 98.7 F 04/09/23 06:46 Pulse 107 H 04/09/23 06:46 Resp 22 H 04/09/23 06:46 BP 141/87 H 04/09/23 06:46 Pulse Ox 97 04/09/23 06:46 O2 Del Method Room Air 04/09/23 06:46 BMI result Body Mass Index 28.5 Chest: Other: Diminished breath sounds left base. GI: Other: Abdomen moderately distended. Soft, nontender. Results Labs 04/09/23 06:56 04/09/23 06:56 Labs: Abnormal lab results 04/09/23 Range/Units 06:56 RBC 3.80 L (4.60-5.80) X10*6/uL Hgb 10.2 L (14.0-18.0) g/dl Hct 32.1 L (42.0-52.0) % MCH 26.8 L (27.0-33.0) pg RDW 17.7 H (11.0-16.0) % MPV 9.0 L (9.4-12.4) fL Lymph % (Auto) 19.1 L (20-40) % Lane % (Auto) 12.7 H (2-11) % Eos % (Auto) 5.3 H (0-4) % Lymph # (Auto) 1.0 L (1.2-4.9) X10*3/uL PT 13.9 H (11.1-13.3) SEC Potassium 3.2 L D (3.3-5.1) mmol/L BUN 7 L (9-16) mg/dL Random Glucose 130 H (60-115) mg/dL Total Bilirubin 1.6 H (0.0-1.0) mg/dL AST 39 H (5-37) U/L Alkaline Phosphatase 227 H (39-117) U/L Albumin 3.3 L (3.5-5.0) g/dL Short CBC 04/09/23 Range/Units 06:56 WBC 5.1 (4.8-10.8) X10*3/uL Hgb 10.2 L (14.0-18.0) g/dl Hct 32.1 L (42.0-52.0) % Plt Count 186 (160-400) X10*3/uL BMP 04/09/23 06:56 Sodium 138 Potassium 3.2 L D Chloride 103 Carbon Dioxide 22 BUN 7 L Creatinine 0.78 Calcium 8.7 Liver Function 04/09/23 Range/Units 06:56 Total Bilirubin 1.6 H (0.0-1.0) mg/dL AST 39 H (5-37) U/L ALT 21 (0-40) U/L Alkaline Phosphatase 227 H (39-117) U/L Albumin 3.3 L (3.5-5.0) g/dL All other labs normal. Assessment and Plan (1) Pleural effusion: Status: Acute Plan Current recommendation is for interventional radiologic thoracentesis, similar to prior episodes of pleural effusion. Unfortunately, this will be a chronic problem secondary to his advanced cirrhosis. Because of this, Tube thoracostomy with pleurodesis is unlikely to resolve this issue. Time Spent With Patient Time: Total time managing care of this patient today ____ minutes. Procedures Date of Service Date of Service: 04/09/23
[2023-04-09 09:51] VITALS: BP 148/89; PULSE 101; RESP 21; O2SAT 96
[2023-04-09 10:01] VITALS: BMI 29.4
[2023-04-09 10:23] LABS: PTT Heparin Drip 30.3 SEC (53-77.9)
--- NOTE | 2023-04-09 12:04 | HO.RADPN ---
RADIOLOGY Narrative Narrative: Left thoracentesis using 4 fr yeuh needle. 1.5 mL serosanguinous to slightly blood tinged fluid removed. may start Heparin drip in one hour if needed but do not bolus with Heparin. Watch for signs of bleeding after starting Heparin
[2023-04-09] MEDS: Lidocaine HCl 1 % MPF 5 ML VIAL SUBCUT (12:15)
[2023-04-09 12:33] VITALS: BP 137/82; PULSE 97; RESP 18; O2SAT 95
[2023-04-09] MEDS: Heparin Sodium,Porcine/1/2NS 25,000 UNIT/250 ML IV.SOLN 15.75 UNIT IVCONT (12:42)
--- NOTE | 2023-04-09 12:44 | PC.NURSE ---
nad str 110 on the monitor, dressing on thoracentisis sight and no bleeding, heparin drip infusing, bolus held per PA
--- NOTE | 2023-04-09 12:52 | PHA.MEDREC ---
Addendum entered by Snow Gutierrez RPh 04/09/23 18:49: Oxycodone added to home list per ABBEY Blackmon. Last filled 03/20/23. Original Note: Pharmacy Consult ? Medication Reconciliation Pharmacy has completed the medication reconciliation. Patient states that nothing has changed since the last time they were here except the lasix and spironolactone are now two tablets each . Pt has a short acting insulin that he doesnt need to use Dani
[2023-04-09 13:00] LABS: MN% 93.7 %; PMN% 6.3 %; RBC Pleural Fluid 0.063 X10*6/uL
--- NOTE | 2023-04-09 13:07 | PM.IMHP ---
History of Present Illness Date of Service: 04/09/23 Attending physician on admission: Carson Lee Chief Complaint: cifuentes, pleural effusion 57-year-old male with history of insulin-dependent type 2 diabetes, alcohol use disorder with alcoholic cirrhosis, esophageal varices, portal hypertension, ascites, main portal vein thrombosis currently not on anticoagulation, GERD, COPD, and recurrent left-sided pleural effusion presents to the ED for evaluation of large left-sided pleural effusion noted on chest x-ray this morning per pulmonology. The patient is reporting that he has been experiencing dyspnea on exertion for some time and had upcoming appointment with his lna, Dr. Alvarez, and requested chest x-ray prior to appointment. He denies any fevers, chills, nausea, vomiting, abdominal pain, diarrhea, melena, hematochezia, lightheadedness, cough, presyncope, palpitations, or chest pain. On arrival, patient tachycardic to 107, slightly tachypneic to 22, vital signs otherwise stable. No hypoxia. Hematology studies baseline. Renal function normal, electrolyte levels normal except for mild hypokalemia of 3.2. Glucose 130. AST 39, ALT 21, total bilirubin 1.6, alkaline phosphatase 227. Troponin undetectable. BNP 20. Albumin 3.3. COVID-19 negative. D-dimer elevated >900. INR 1.1, PT 13.9, PTT 30.3. CTA chest shows filling defects in the upper lobes positive for pulmonary emboli though evaluation is limited by motion artifact and suboptimal contrast bolus timing. There is also left lower lobe consolidation and large left pleural effusion. There is also a nodular surface contour of the liver representing cirrhosis with moderate ascites. While in the ED, thoracic surgery consulted and patient underwent thoracentesis draining 1.5 L serosanguineous to slightly blood-tinged fluid. Radiologist recommending heparin drip be started 1 hour following procedure but hold bolus for 2 hours. Patient has now been started on heparin drip per protocol and given 40 mEq potassium chloride. Patient does follow with Dr. Candace leone and Gastroenterology but is not on transplant list. He continues to drink occasional alcohol but denies regular use. He denies cigarette smoking or illicit drug use but does smoke marijuana on a regular basis Review of Systems Review of Systems: General: No fevers, malaise, unintentional weight loss HEENT: No blurred vision, diplopia. No sore throat, nasal congestion, rhinorrhea, sinus pain, ear pain Cardiovascular: No chest pain, palpitations, or leg edema Respiratory: +CIFUENTES. No wheezing, cough GI: No abdominal pain, nausea, vomiting, diarrhea, constipation, melena, hematochezia : No dysuria, hematuria, increased urinary frequency, decreased urinary output MSK: No myalgia, back pain Neuro: No headaches, weakness, paresthesias Skin: No rashes or lesions [facility] Medical History Cirrhosis of liver Diabetes Alcohol use disorder, moderate, dependence Recurrent left pleural effusion Pleural effusion Pericardial effusion Tachycardia Dyspnea Hydropneumothorax Pleural effusion on right Decompensation of cirrhosis of liver Cirrhosis GERD (gastroesophageal reflux disease) Esophageal varices Chronic abdominal pain Gout Peripheral neuropathy Alcoholism Elevated LFTs Family History Mother Cancer Sister Cancer Surgical History Hx of esophagogastroduodenoscopy History of thoracentesis H/O colonoscopy H/O cervical spine surgery H/O hemicolectomy Social History Household Members: Other Household Members Other:: Roomate Housing: Apartment Do you presently have visiting nurse or other home services: No Alcohol intake: current Alcohol intake frequency: holidays/special occasions only Alcohol type: hard liquor Patient Tobacco Use Status: Former Tobacco user Quit Date: 1 mth ago Tobacco use type: Cigarette Years Smoked: 30 e-Cigarette/Vaping Use: Currently Using Second Hand Smoke Exposure: No Substance Use Type: Marijuana Advance Directives Date on File: 11/27/22 service: No Current occupational status: unemployed Meds Allergies Allergy/AdvReac Type Severity Reaction Status Date / Time No Known Drug Allergies Allergy Mild NONE Verified 02/05/23 09:30 [NO KNOWN DRUG ALLERGIES] Active Medications: Current Medications Acetaminophen (Acetaminophen 325 Mg Tablet) 650 mg PO Q6H PRN PRN Reason: Pain, Mild (Pain Scale 1-3) Albuterol Sulfate (Albuterol Sulfate 90 Mcg 8 Gm Inhaler) 2 puff INHALE Q6H PRN PRN Reason: Shortness Of Breath Bupropion HCl (Bupropion Hcl Xl 300 Mg Tab.Er.24h) 300 mg PO DAILY [facility] Docusate Sodium (Docusate Sodium 100 Mg Capsule) 100 mg PO DAILY PRN PRN Reason: Constipation Folic Acid (Folic Acid 1 Mg Tablet) 1 mg PO DAILY [facility] Furosemide (Furosemide 40 Mg Tablet) 80 mg PO DAILY [facility]; Protocol Heparin Sodium (Porcine) (Heparin Sodium,Porcine 5,000 Unit/Ml Vial) 9,000 unit 80 unit/kg (9000 unit) IVPUSH PROTOCOL BOLUS PRN; Protocol PRN Reason: 80 unit/kg - Heparin Protocol Heparin Sodium (Porcine) (Heparin Sodium,Porcine 5,000 Unit/Ml Vial) 4,500 unit 40 unit/kg (4500 unit) IVPUSH PROTOCOL BOLUS PRN; Protocol PRN Reason: 40 unit/kg - Heparin Protocol Hydroxyzine HCl (Hydroxyzine Hcl 25 Mg Tablet) 25 - 50 mg PO DAILY PRN PRN Reason: itching Heparin Sodium/Sodium Chloride (Heparin Sodium,Porcine/1/2ns) 25,000 unit in 250 mls @ 0 mls/hr IVCONT .Q0M [facility]; Protocol Last Admin: 04/09/23 12:42 Dose: 14 units/kg/hr, 15.75 mls/hr Insulin Glargine (Insulin Glargine,Hum.Rec.Anlog 100 Unit/Ml 10 Ml Vial) 15 unit SUBCUT DAILY [facility] Lactulose (Lactulose 20 Gm/30 Ml Solution) 20 gm PO TID [facility] Lorazepam (Lorazepam 0.5 Mg Tablet) 0.5 mg PO DAILY PRN PRN Reason: anxiety attack Nadolol (Nadolol 20 Mg Tablet) 20 mg PO DAILY [facility]; Protocol Omeprazole (Omeprazole 40 Mg Capsule.Dr) 40 mg PO DAILY@0630 [facility] Ondansetron HCl (Ondansetron Hcl 4 Mg/2 Ml Vial) 4 mg IVPUSH Q8H PRN PRN Reason: Nausea and Vomiting Paroxetine HCl (Paroxetine Hcl 20 Mg Tablet) 20 mg PO DAILY [facility] Rifaximin (Rifaximin 550 Mg Tablet) 550 mg PO BID [facility] Sodium Chloride (0.9 % Sodium Chloride Flush 3 Ml Syringe) 3 ml IVFLUSH QSHIFT [facility] Spironolactone (Spironolactone 25 Mg Tablet) 200 mg PO DAILY [facility]; Protocol Sucralfate (Sucralfate 1 Gm Tablet) 1 gm PO TIDAC [facility] Thiamine HCl (Thiamine Hcl 100 Mg Tablet) 100 mg PO DAILY [facility] Home Medications Medication Instructions Recorded Confirmed Last Taken Type bupropion HCl 300 mg 24 hr tablet, 300 mg PO DAILY 06/10/21 04/09/23 04/08/23 History extended release folic acid 1 mg tablet 1 mg PO DAILY 06/10/21 04/09/23 04/08/23 History thiamine HCl (vitamin B1) 100 mg 100 mg PO DAILY 06/10/21 04/09/23 04/08/23 History tablet albuterol sulfate 90 mcg/actuation 2 puff inhalation Q6H PRN 01/26/22 04/09/23 04/09/23 History aerosol inhaler (ProAir HFA) Shortness Of Breath hydroxyzine pamoate 25 mg capsule 25 - 50 mg PO DAILY PRN itching 01/26/22 04/09/23 04/08/23 History lorazepam 0.5 mg tablet 0.5 mg PO DAILY PRN anxiety attack 07/13/22 04/09/23 10/27/22 History paroxetine HCl 20 mg tablet 20 mg PO DAILY 07/13/22 04/09/23 04/08/23 History insulin glargine 100 unit/mL (3 20 unit subcut DAILY 11/27/22 04/09/23 04/08/23 History mL) subcutaneous pen insulin lispro 100 unit/mL 1 sliding scale dose subcut QIDACHS 03/03/23 04/09/23 03/02/23 History subcutaneous pen Physical Exam Vital Signs and Narrative: Vital Signs: Last Vital Signs Temp 98.7 F 04/09/23 06:46 Pulse 97 04/09/23 12:33 Resp 18 04/09/23 12:33 BP 137/82 04/09/23 12:33 Pulse Ox 95 04/09/23 12:33 O2 Del Method Room Air 04/09/23 12:33 BMI result Body Mass Index 29.4 Constitutional - Awake and Alert, No apparent distress Eyes - PERRLA, EOMI Cardiovascular - S1S2, RRR, No edema Respiratory - Normal lung expansion, Normal respiratory effort, No respiratory distress, CTA bilaterally Gastrointestinal - moderate abdominal distension without tenderness to palpation with positive fluid wave. +BS; No rebound or guarding Extremities - no calf tenderness bilaterally, no swelling Skin - Warm/Dry Neurological - Alert & oriented x3 Psychological - Appropriate affect Results Labs 04/09/23 06:56 04/09/23 06:56 Labs: Laboratory Results - last 24 hr 04/09/23 04/09/23 04/09/23 06:56 10:03 11:45 MCV 84.5 MCH 26.8 L MCHC 31.8 RDW 17.7 H Plt Count 186 MPV 9.0 L Immature Gran % (Auto) 0.4 Neut % (Auto) 60.7 Lymph % (Auto) 19.1 L [place]ois % (Auto) 12.7 H Eos % (Auto) 5.3 H Baso % (Auto) 1.8 Lymph # (Auto) 1.0 L [place] # (Auto) 0.7 Eos # (Auto) 0.3 Baso # (Auto) 0.1 Abs Immat Gran (auto) 0.02 Absolute Neuts (auto) 3.1 Absolute Nucleated RBC 0.000 Nucleated RBC % (auto) 0.0 PT 13.9 H INR 1.1 aPTT Heparin Protocol 30.3 L D-Dimer High Sensitivty 971 Anion Gap 16 Estim Creat Clear Calc 146.8 Estimated GFR > 60 Random Glucose 130 H Calcium 8.7 Magnesium 1.9 Total Bilirubin 1.6 H AST 39 H ALT 21 Alkaline Phosphatase 227 H B-Natriuretic Peptide 20 Total Protein 8.0 Albumin 3.3 L Peritoneal WBC Cancelled Peritoneal RBC Cancelled Periton Neutrophils Cancelled Periton Lymphocytes Cancelled Peritoneal Monocytes Cancelled Peritoneal Eosinophils Cancelled Peritoneal Basophils Cancelled Peritoneal Other Cells Cancelled Peritoneal Tot Protein Cancelled Peritoneal LDH Cancelled Peritoneal Glucose Cancelled Pleural WBC 3.000 Pleural RBC 0.063 COVID-19 ([facility]) Negative COVID-19 Clin Com See Note Imaging Radiologist's Impressions: Impressions Chest CTA 04/09/23 08:41 IMPRESSION: Filling defects are likely demonstrated within the upper lobes positive for pulmonary embolus. Evaluation is limited by motion artifact and suboptimal contrast bolus timing. Left lower lobe consolidation and large left pleural effusion. Nodular surface contour of the liver likely representing cirrhosis with moderate ascites. VTE: positive Assessment and Plan (1) Pulmonary embolism, bilateral: Status: Acute (2) Pleural effusion: Status: Acute Plan 57-year-old male with history of insulin-dependent type 2 diabetes, alcohol use disorder with alcoholic cirrhosis, esophageal varices, portal hypertension, ascites, main portal vein thrombosis currently not on anticoagulation, GERD, COPD, and recurrent left-sided pleural effusion admitted for bilateral pulmonary embolus with large left-sided pleural effusion. # bilateral pulmonary embolus -IV heparin per protocol -no hypoxia, troponin undetectable, BNP WNL -no evidence of right heart strain noted -echocardiogram ordered -monitor CBC, coags -monitor on telemetry # recurrent left-sided pleural effusion -thoracentesis performed by IR noting serosanguineous to blood tinged pleural fluid -CTA chest not noting any evidence of mass but does show consolidation of the left lower lobe. Patient is currently asymptomatic -pleural fluid analysis pending -pulmonology consult # hypokalemia -repleted in ED, follow BMP # insulin-dependent type 2 diabetes -dose adjusted basal insulin, Humalog sliding scale -POC glucose -diabetic diet # decompensated alcoholic cirrhosis complicated by esophageal varices, portal vein thrombosis, ascites -continue Lasix, spironolactone -continue nadolol, rifaximin -now on heparin per protocol, will need to be transition to NOAC -alcohol cessation advised # mood disorder -continue home med # GERD -continue PPI # COPD -no acute exacerbation -albuterol p.r.n. DVT prophylaxis-heparin Full code Patient requires inpatient stay at least 2 midnights for management of bilateral pulmonary embolus with left-sided pleural effusion s/p thoracentesis requiring IV heparin per protocol, close monitoring for decompensation, and expert consultation Time Spent With Patient Time: Total time managing care of this patient today ____ minutes. Quality Stroke Does the patient have a stroke diagnosis?: No VTE Prior VTE?: No VTE Risk Level:: Medical - moderate - high VTE Device Contraindication: Treatment Not Indicated VTE Drug Contraindication: N/A - Med Ordered
[2023-04-09 13:48] LABS: BF Shift QC OK YES; Lymphocytes Pleural Fluid 54 %; Monocytes Pleural Fluid 15 %; Neutrophils Pleural Fluid 6 %; Other Cells Plerual Fl 25 %
[2023-04-09 14:23] VITALS: BP 127/70; PULSE 103; RESP 20; O2SAT 96
[2023-04-09 15:33] VITALS: BP 125/93; PULSE 102; RESP 19; TEMP 36.9; O2SAT 97
[2023-04-09] MEDS: Lactulose 20 GM/30 ML SOLUTION PO (15:40)
[2023-04-09] MEDS: Heparin Sodium,Porcine 5,000 UNIT/ML VIAL 8700 UNIT IVPUSH (15:40)
--- NOTE | 2023-04-09 15:50 | PC.NURSE ---
this RN assumed care of patient at 1500, patient is resting on stretcher, respirations even and unlabored, skin pwd, alert and oriented x4. Pt offers no complaints to this RN besides 03/04 abd pain. Pt requesting Oxycodone per med list. Pt medicated per AUG. Pt verbalizes understanding to not get up and walk around at this time
[2023-04-09 16:22] LABS: Glucose Pleural Fluid 126 MG/DL; LDH Pleural Fluid 191 U/L; Total Protein Pleural Fluid 3.8 GM/DL
--- NOTE | 2023-04-09 17:53 | PC.NURSE ---
medications late due to dinner not being here yet and medications are dependent on food intake
[2023-04-09 18:05] VITALS: BP 123/89; PULSE 104; RESP 15; TEMP 37.1; O2SAT 96
[2023-04-09] MEDS: Sucralfate 1 GM TABLET PO (18:05)
[2023-04-09 18:24] LABS: Appearance Urine Clear; Color Urine Dark Yellow; Glucose Urine UA Negative (Negative); Leukocyte Esterase Urine Trace (Negative); Nitrite Urine Positive (Negative); PH 5.5 (5.0-9.0); Specific Gravity - Urine >= 1.030 (1.005-1.025); UMIC TRIGGER UACC YES; Urine Blood Negative (Negative); Urine Ketones Trace mg/dL (Negative); Urine Protein Trace mg/dL (Neg-Trace)
[2023-04-09 18:36] LABS: Bacteria Urine None Seen (None Seen); Hyaline Casts Urine 0-2 /LPF (0-2); RBC Urine 0-2 /HPF (0-2); Squamous Epithelial Cell Urine 0-2 /HPF (0-2); UACC Culture Trigger YES; WBC Urine 0-5 /HPF (0-5)
[2023-04-09] MEDS: oxyCODONE HCl Immed Release 5 MG TABLET PO (18:40)
[2023-04-09 19:28] LABS: PTT Heparin Drip 119.9 SEC (53-77.9)
[2023-04-09 21:23] LABS: PTT Heparin Drip 160.7 SEC (53-77.9)
[2023-04-09] MEDS: rifAXIMin 550 MG TABLET PO (22:07)
[2023-04-10] VITALS (9 sets, daily range): BP systolic 105–151; BP diastolic 70–94; PULSE 85–116; RESP 14–26; TEMP 36.1–36.9; O2SAT 93–98; BMI 29.4
[2023-04-10 00:26] LABS: PTT Heparin Drip 31.8 SEC (53-77.9)
--- NOTE | 2023-04-10 00:57 | PC.NURSE ---
Reviewed protocol with DANIA Cox regarding bolus rate and hourly rate, ptt <37. per protocol 80unit/kg/hr and increase rate by 4units, DANIA Cox with call provider to discuss Heparin and bolus rate.
[2023-04-10] MEDS: Heparin Sodium,Porcine 5,000 UNIT/ML VIAL 9000 UNIT IVPUSH (01:07)
[2023-04-10] MEDS: oxyCODONE HCl Immed Release 5 MG TABLET PO ×2 (03:02→20:20)
[2023-04-10 03:34] LABS: PTT Heparin Drip > 200.0 SEC (53-77.9)
--- NOTE | 2023-04-10 03:49 | PC.NURSE ---
crictial ptt 200, notified, DANIA Cox and Dr. Sultana
[2023-04-10 05:15] LABS: Basophils Absolute Auto 0.1 X10*3/uL (0.0-0.2); Basophils Percent Auto 1.4 % (0-2); Eosinophils Absolute Auto 0.2 X10*3/uL (0.0-0.4); Eosinophils Percent Auto 4.5 % (0-4); Hematocrit 29.3 % (42.0-52.0); Hemoglobin 9.3 g/dl (14.0-18.0); Imm Gran Abs Auto 0.01 X10*3/uL (0.00-0.03); Imm Gran Pct Auto 0.2 % (0.0-0.4); Lymphocytes Absolute Auto 1.1 X10*3/uL (1.2-4.9); Lymphocytes Percent Auto 21.7 % (20-40); MANUAL DIFF FLAG NO; Mean Corpuscular HGB Conc 31.7 g/dl (31.0-36.0); Mean Corpuscular Hemoglobin 26.9 pg (27.0-33.0); Mean Corpuscular Volume 84.7 fL (80.0-98.0); Mean Platelet Volume 9.2 fL (9.4-12.4); Monocytes Absolute Auto 0.6 X10*3/uL (0.1-1.2); Monocytes Percent Auto 12.6 % (2-11); Neutrophils Absolute Auto 2.9 x10*3/uL (2.0-8.3); Neutrophils Percent Auto 59.6 % (45-73); Platelet Count 160 X10*3/uL (160-400); Red Blood Count 3.46 X10*6/uL (4.60-5.80); Red Cell Distribution Width 17.9 % (11.0-16.0); White Blood Count 4.9 X10*3/uL (4.8-10.8)
[2023-04-10 05:25] LABS: PTT Heparin Drip 40.1 SEC (53-77.9)
[2023-04-10 05:32] LABS: Alanine Aminotransferase 18 U/L (0-40); Albumin Level 2.9 g/dL (3.5-5.0); Alkaline Phosphatase 224 U/L (39-117); Anion Gap 14 (12-20); Aspartate Amino Transferase 40 U/L (5-37); Bilirubin Total 2.9 mg/dL (0.0-1.0); Blood Urea Nitrogen 8 mg/dL (9-16); Calcium 8.7 mg/dL (8.4-10.2); Carbon Dioxide 23 mmol/L (22-29); Chloride 104 mmol/L (96-108); Estimated Glomerular Filt Rate > 60; Glucose Random 112 mg/dL (60-115); Potassium 3.7 mmol/L (3.3-5.1); Sodium 137 mmol/L (135-145); Total Protein 7.2 g/dL (6.5-8.0)
--- NOTE | 2023-04-10 05:51 | PC.NURSE ---
Per Dr. Sultana, do not give bolus and increase by 2 unit/kg/hr, Notified DANIA Cox.
--- NOTE | 2023-04-10 06:26 | PC.NURSE ---
This nurse ordered PTT at 2400 04/09 to check level. protocol states 6 hours after infusion and bolus. contacted provider for instruction. titrated heparin to 14 unit/kg/hr and bolus held per MD instruction.
--- NOTE | 2023-04-10 07:00 | CA_ITS ---
Transthoracic Echocardiogram Patient (Last, First, Middle): Akash Barboza J Gender: Male Date of : 1965 Age: 57 Procedure Date: 04/10/2023 Procedure Type: Transthoracic Echocardiogram Location: ER Height: 195.58 cm Weight: 112.49 kg BSA: 2.45 m2 Heart Rate: bpm BP: 135 / 89 mmHg Office Technician: SB Referring MD: Lorri POTTER Symptoms: bilateral PE Study Quality: Technically Difficult, contrast ECG Rhythm: Sinus Conclusions: - The left ventricular systolic function is normal. The visually estimated ejection fraction is between 65-70%. - Normal right ventricular cavity size and systolic function. Findings Procedure Information Contrast agent, definity, is being given per protocol without apparent complications. The study quality is limited by patients body habitus. Left Ventricle Normal left ventricular cavity size. The left ventricular systolic function is normal. The visually estimated ejection fraction is between 65-70%. Regional wall motion abnormalities can not be excluded due to suboptimal endocardial definition. Right Ventricle Normal right ventricular cavity size and systolic function. Tricuspid Valve Tricuspid regurgitation envelope is inadequate for calculation of right ventricular systolic pressure. Venous The inferior vena cava is normal in size and collapses greater than 50% with inspiration. Pericardium/Pleural Pleural effusion +/- ascites with exudative material. Prior Study Comparison No significant change compared to prior study dated: 03/13/2023. Measurements 2D Linear Measurements LVOT Diam: 2.40 3.0+(-)1.3 cm 2D Systolic Function EF 4C: 64.90 >55% LVOT LVOT Pk Atul: 1.13 LVOT Mn Atul: 0.78 LVOT VTI: 0.19 LVOT Pk Grad: 5.00 LVOT Mn Grad: 3.00 LVOT Diam: 2.40 LVOT Area: 4.52 Right Ventricle TAPSE (mm): 24.20 TVS' Atul: 16.00 Updated in Other Vendor System with Status of Final Juan C Bolivar MD electronically signed on 04/10/2023 11:14:57 AM with status of Final
[2023-04-10 07:29] LABS: Glucose, Whole Blood 134 mg/dL (60-115)
[2023-04-10 07:31] LABS: Glucose, Whole Blood 104 mg/dL (60-115)
[2023-04-10 07:45] LABS: Glucose, Whole Blood 114 mg/dL (60-115)
--- NOTE | 2023-04-10 08:03 | PC.NURSE ---
assumed care of pt at 0700. pt a&o x4, pleasant, calm, and cooperative. pt resting quietly on stretcher, laying on back. knows no ambulation except to commode. pt requesting breakfast, asking why he is NPO. Dr. Simms aware and notified, reviewing pt chart. pt reports 7/10 pain to back and lower ribs/abdomen. call zaidi within pt reach. all pt needs met gina. awaiting bed assignment. plan of care ongoing.
--- NOTE | 2023-04-10 08:37 | PC.NURSE ---
currently getting echocardiogram in room
[2023-04-10] MEDS: buPROPion HCl XL 300 MG TAB.ER.24H PO (10:19)
[2023-04-10] MEDS: Omeprazole 40 MG CAPSULE.DR PO (10:19)
[2023-04-10] MEDS: Thiamine HCL 100 MG TABLET PO (10:20)
[2023-04-10] MEDS: Folic Acid 1 MG TABLET PO (10:20)
[2023-04-10] MEDS: Furosemide 40 MG TABLET 80 MG PO (10:20)
[2023-04-10] MEDS: PARoxetine HCL 20 MG TABLET PO (10:20)
[2023-04-10] MEDS: Insulin Glargine,Hum.rec.anlog 100 UNIT/ML 10 ML VIAL 15 UNIT SUBCUT (10:23)
--- NOTE | 2023-04-10 10:25 | MHC.CM.PN ---
CM met with Patient and his Sister/HCP at bedside in the ED and addressed IMM with them (original given to Patient and a copy has been placed on the chart).Patient lives alone in a 2 family house on the second floor. Patient uses a cane to assist with mobility and home/self care is the goal. CM has initiated and will follow for dc planning. PCP is Dr. Martin Avilez.
[2023-04-10 11:29] LABS: PTT Heparin Drip 41.2 SEC (53-77.9)
--- NOTE | 2023-04-10 12:02 | P.CONPL_ITS ---
History of Present Illness History of Present Illness Consult date: 04/10/23 Reason for consult: pleural effusion and pulmonary embolism Chief complaint: Bilateral PE, large pleural effusion Narrative: PULMONARY CONSULTATION. This 57 years old gentleman is well known patient, He is followed up by Dr. Nawaf Alvarez has outpatient regularly, infect was supposed to have an office visit with him in the next few days. He has extensive past medical history, including insulin-dependent type 2 diabetes, alcohol use disorder with alcoholic cirrhosis, esophageal varices, portal hypertension, ascites, main portal vein thrombosis currently not on anticoagulation, GERD, COPD. Has history of recurrent pleural effusion on the left side and has had thoracenteses before. A few times Since he is on diuretic therapy, his Ascites as well as recurrence of left-sided pleural effusion has been slowed down. The patient does have increased dyspnea on exertion for several days . So in preparation to have follow-up visit with Dr. Alvarez he went for chest x-ray, which shows a large pleural effusion on the left side. He denies having had any fever chills or chest pain lately. He is here in the emergency room since yesterday, has had thoracenteses of the left chest, by Interventional Radiology, draining 1.5 L of fluid . Post thoracenteses chest x-ray does show a residual density in the left lower lobe Suggesting atelectasis versus pneumonia. This gentleman's main problem is cirrhosis of the liver related to his chronic alcohol disorder, he does have portal hypertension with recurrent ascites. The recurrent pleural effusion on the left side has been considered to be hepatic hydro thorax . Complicating the situation is the finding of perfusion defects in the upper lobes on CTA of the chest. C/W pulmonary embolism , and he has been started on heparin therapy as per protocol. Review of Systems 2 Review of Systems: Yes all other systems are reviewed and are negative PMFSH Past Medical History Medical History Cirrhosis of liver Diabetes Alcohol use disorder, moderate, dependence Recurrent left pleural effusion Pleural effusion Pericardial effusion Tachycardia Dyspnea Hydropneumothorax Pleural effusion on right Decompensation of cirrhosis of liver Cirrhosis GERD (gastroesophageal reflux disease) Esophageal varices Chronic abdominal pain Gout Peripheral neuropathy Alcoholism Elevated LFTs Family History Family History Mother Cancer Sister Cancer Surgical History Surgical History Hx of esophagogastroduodenoscopy History of thoracentesis H/O colonoscopy H/O cervical spine surgery H/O hemicolectomy Social History Social History Household Members: Other Household Members Other:: Roomate Housing: Apartment Do you presently have visiting nurse or other home services: No Alcohol intake: current Alcohol intake frequency: holidays/special occasions only Alcohol type: hard liquor Patient Tobacco Use Status: Former Tobacco user Quit Date: 1 mth ago Tobacco use type: Cigarette Years Smoked: 30 e-Cigarette/Vaping Use: Currently Using Second Hand Smoke Exposure: No Substance Use Type: Marijuana Advance Directives Date on File: 11/27/22 service: No Current occupational status: unemployed Meds Allergies Allergy/AdvReac Type Severity Reaction Status Date / Time No Known Drug Allergies Allergy Mild NONE Verified 04/10/23 08:30 [NO KNOWN DRUG ALLERGIES] Active Medications: Current Medications Acetaminophen (Acetaminophen 325 Mg Tablet) 650 mg PO Q6H PRN PRN Reason: Pain, Mild (Pain Scale 1-3) Albuterol Sulfate (Albuterol Sulfate 90 Mcg 8 Gm Inhaler) 2 puff INHALE Q6H PRN PRN Reason: Shortness Of Breath Bupropion HCl (Bupropion Hcl Xl 300 Mg Tab.Er.24h) 300 mg PO DAILY RYAN Last Admin: 04/10/23 10:19 Dose: 300 mg Dextrose (Dextrose 50 % 25 Gm/50 Ml Syringe) 25 gm IVPUSH Q15M PRN; Protocol PRN Reason: per Hypoglycemia Standing Ord. Docusate Sodium (Docusate Sodium 100 Mg Capsule) 100 mg PO DAILY PRN PRN Reason: Constipation Folic Acid (Folic Acid 1 Mg Tablet) 1 mg PO DAILY RYAN Last Admin: 04/10/23 10:20 Dose: 1 mg Furosemide (Furosemide 40 Mg Tablet) 80 mg PO DAILY RYAN; Protocol Last Admin: 04/10/23 10:20 Dose: 80 mg Glucose (Glucose Gel 15 Gm Gel..Gram.) 15 gm PO Q15M PRN; Protocol PRN Reason: per Hypoglycemia Standing Ord. Heparin Sodium (Porcine) (Heparin Sodium,Porcine 5,000 Unit/Ml Vial) 9,000 unit 80 unit/kg (9000 unit) IVPUSH PROTOCOL BOLUS PRN; Protocol PRN Reason: 80 unit/kg - Heparin Protocol Last Admin: 04/10/23 01:07 Dose: 9,000 unit Heparin Sodium (Porcine) (Heparin Sodium,Porcine 5,000 Unit/Ml Vial) 4,500 unit 40 unit/kg (4500 unit) IVPUSH PROTOCOL BOLUS PRN; Protocol PRN Reason: 40 unit/kg - Heparin Protocol Hydroxyzine HCl (Hydroxyzine Hcl 25 Mg Tablet) 25 - 50 mg PO DAILY PRN PRN Reason: itching Heparin Sodium/Sodium Chloride (Heparin Sodium,Porcine/1/2ns) 25,000 unit in 250 mls @ 0 mls/hr IVCONT .Q0M [facility]; Protocol Last Titration: 04/10/23 06:42 Dose: 12 units/kg/hr, 13.5 mls/hr Insulin Glargine (Insulin Glargine,Hum.Rec.Anlog 100 Unit/Ml 10 Ml Vial) 15 unit SUBCUT DAILY [facility] Last Admin: 04/10/23 10:23 Dose: 15 unit Insulin Human Lispro (Insulin Lispro 100 Unit/Ml 3 Ml Vial) 0 unit SUBCUT QIDACHS [facility]; Protocol Last Admin: 04/10/23 08:56 Dose: Not Given Lactulose (Lactulose 20 Gm/30 Ml Solution) 20 gm PO TID [facility] Last Admin: 04/10/23 10:26 Dose: Not Given Lorazepam (Lorazepam 0.5 Mg Tablet) 0.5 mg PO DAILY PRN PRN Reason: anxiety attack Nadolol (Nadolol 20 Mg Tablet) 20 mg PO DAILY [facility]; Protocol Omeprazole (Omeprazole 40 Mg Capsule.Dr) 40 mg PO DAILY@0630 [facility] Last Admin: 04/10/23 10:19 Dose: 40 mg Ondansetron HCl (Ondansetron Hcl 4 Mg/2 Ml Vial) 4 mg IVPUSH Q8H PRN PRN Reason: Nausea and Vomiting Paroxetine HCl (Paroxetine Hcl 20 Mg Tablet) 20 mg PO DAILY [facility] Last Admin: 04/10/23 10:20 Dose: 20 mg Rifaximin (Rifaximin 550 Mg Tablet) 550 mg PO BID [facility] Last Admin: 04/09/23 22:07 Dose: 550 mg Sodium Chloride (0.9 % Sodium Chloride Flush 3 Ml Syringe) 3 ml IVFLUSH QSHIFT [facility] Last Admin: 04/10/23 09:03 Dose: Not Given Spironolactone (Spironolactone 25 Mg Tablet) 200 mg PO DAILY [facility]; Protocol Sucralfate (Sucralfate 1 Gm Tablet) 1 gm PO TIDAC [facility] Last Admin: 04/09/23 18:05 Dose: 1 gm Thiamine HCl (Thiamine Hcl 100 Mg Tablet) 100 mg PO DAILY [facility] Last Admin: 04/10/23 10:20 Dose: 100 mg Home Medications Medication Instructions Recorded Confirmed Last Taken Type bupropion HCl 300 mg 24 hr tablet, 300 mg PO DAILY 06/10/21 04/09/23 04/08/23 History extended release folic acid 1 mg tablet 1 mg PO DAILY 06/10/21 04/09/23 04/08/23 History thiamine HCl (vitamin B1) 100 mg 100 mg PO DAILY 06/10/21 04/09/23 04/08/23 History tablet albuterol sulfate 90 mcg/actuation 2 puff inhalation Q6H PRN 01/26/22 04/09/23 04/09/23 History aerosol inhaler (ProAir HFA) Shortness Of Breath hydroxyzine pamoate 25 mg capsule 25 - 50 mg PO DAILY PRN itching 01/26/22 04/09/23 04/08/23 History lorazepam 0.5 mg tablet 0.5 mg PO DAILY PRN anxiety attack 07/13/22 04/09/23 10/27/22 History paroxetine HCl 20 mg tablet 20 mg PO DAILY 07/13/22 04/09/23 04/08/23 History insulin glargine 100 unit/mL (3 20 unit subcut DAILY 11/27/22 04/09/23 04/08/23 History mL) subcutaneous pen insulin lispro 100 unit/mL 1 sliding scale dose subcut QIDACHS 03/03/23 04/09/23 03/02/23 History subcutaneous pen oxycodone 5 mg capsule 5 mg PO Q4-6H PRN Pain 04/09/23 04/09/23 Unknown History Physical Exam 2 Vital Signs: Vital Signs: Last Vital Signs Temp 98.4 F 04/10/23 05:05 Pulse 112 H 04/10/23 10:25 Resp 22 H 04/10/23 10:25 BP 142/86 H 04/10/23 10:25 Pulse Ox 96 04/10/23 09:42 O2 Del Method Room Air 04/10/23 09:42 BMI result Body Mass Index 29.4 Const: General: comfortable, no acute distress, alert and awake O rientation/consciousness: patient oriented x3 HEENT: Head: Yes normal to inspection General nose exam: No nasal polyps present and No nasal discharge present Face and sinus: Yes sinuses nontender Mouth: oropharynx normal Throat: Yes posterior oropharynx normal Eyes: General: appearance normal, both eyes and all related structures Neck: Neck: Yes normal visual inspection, Yes no lymphadenopathy, Yes trachea midline and Yes no JVD Thyroid: Thyroid normal Chest: Chest palpation & inspection: normal inspection of the chest, normal palpation of entire chest wall and no tenderness Resp: Other: Percussion note: There is dullness over the left lower lobe area. Breath sounds are generally distant, much diminished over the left lower lobe. No wheezes or crepitations are heard. Cardio: Palpation: normal PMI Rate: regular rate Rhythm: regular rhythm Heart sounds: no gallops and no murmurs GI: Palpation (GI): Soft to palpation, nontender, No hepatosplenomegaly present, no masses and Other GI palpation findings present (Abdomen is moderately protuberant.) Auscultation: normal bowel sounds Back/Spine/Pelvis: Other: Not examined Skin: General skin exam: no rashes or lesions noted Neuro: General: patient oriented x3, no focal motor deficits and other (General muscular weakness noted) Cranial nerves: Yes CN's II-XII intact bilaterally Extrem: General: Yes normal to inspection, Yes no calf tenderness and Yes edema (Only mild pitting edema of the legs noted) Psych: Appearance: grossly normal and well kempt Speech and movement: N ormal speech and movement present Results Laboratory Findings 04/10/23 04:53 04/10/23 04:53 ABG, PT/INR, D-dimer: PT/INR, D-dimer PT 13.9 SEC (11.1-13.3) H 04/09/23 06:56 INR 1.1 (0.9-1.1) 04/09/23 06:56 Abnormal lab findings: Abnormal Labs 04/09/23 04/09/23 04/09/23 06:56 10:03 18:18 RBC 3.80 L Hgb 10.2 L Hct 32.1 L MCH 26.8 L RDW 17.7 H MPV 9.0 L Lymph % (Auto) 19.1 L [place] % (Auto) 12.7 H Eos % (Auto) 5.3 H Lymph # (Auto) 1.0 L PT 13.9 H aPTT Heparin Protocol 30.3 L Potassium 3.2 L D BUN 7 L POC Glucose Random Glucose 130 H Total Bilirubin 1.6 H AST 39 H Alkaline Phosphatase 227 H Albumin 3.3 L Ur Specific Erick >= 1.030 H Urine Nitrite Positive H Ur Leukocyte Esterase Trace H 04/09/23 04/09/23 04/09/23 18:56 20:54 21:37 RBC Hgb Hct MCH RDW MPV Lymph % (Auto) [place] % (Auto) Eos % (Auto) Lymph # (Auto) PT aPTT Heparin Protocol 119.9 H* D 160.7 H* D Potassium BUN POC Glucose 134 H Random Glucose Total Bilirubin AST Alkaline Phosphatase Albumin Ur Specific Erick Urine Nitrite Ur Leukocyte Esterase 04/09/23 04/10/23 04/10/23 23:57 03:06 04:53 RBC 3.46 L Hgb 9.3 L Hct 29.3 L MCH 26.9 L RDW 17.9 H MPV 9.2 L Lymph % (Auto) [place] % (Auto) 12.6 H Eos % (Auto) 4.5 H Lymph # (Auto) 1.1 L PT aPTT Heparin Protocol 31.8 L D > 200.0 H* D 40.1 L D Potassium BUN 8 L POC Glucose Random Glucose Total Bilirubin 2.9 H AST 40 H Alkaline Phosphatase 224 H Albumin 2.9 L Ur Specific Erick Urine Nitrite Ur Leukocyte Esterase 04/10/23 11:14 RBC Hgb Hct MCH RDW MPV Lymph % (Auto) [place] % (Auto) Eos % (Auto) Lymph # (Auto) PT aPTT Heparin Protocol 41.2 L Potassium BUN POC Glucose Random Glucose Total Bilirubin AST Alkaline Phosphatase Albumin Ur Specific Erick Urine Nitrite Ur Leukocyte Esterase Microbiology: Microbiology 04/09/23 18:37 Urine clean catch - Urine miranda top Urine Culture - Preliminary No growth to date. 04/09/23 11:45 Pleural Fluid Gram Stain - Final 04/09/23 11:45 Pleural Fluid Routine Culture - Preliminary No growth to date. 04/09/23 11:45 Pleural Fluid Anaerobic Culture - Preliminary No growth to date. Diagnostic Findings Chest x-ray: report reviewed and image reviewed CT scan - chest: report reviewed and image reviewed Assessment and Plan (1) Alcoholic cirrhosis of liver: Status: Acute (2) Portal vein thrombosis: Status: Acute (3) Recurrent left pleural effusion: Status: Acute (4) Pulmonary embolism, bilateral: Status: Acute Plan This 57 years old gentleman with multiple comorbidities primarily being cirrhosis of the liver due to his chronic alcohol abuse disorder. Has recurrent left pleural effusion secondary to HEPATIC HYDROTHORAX. Post thoracenteses , 1.5 L , fluid borderline exudative Protein content 3.8 , and lymphocytes 54% ( chronic inflammatory state) It should be noted that the recurrence of pleural effusion has been slowed down since he is on augmented diuretic therapy. At present his main issue is pulmonary embolism, bilateral perfusion defects and this needs to be treated with anticoagulation. I agree with the current management. The opacity in the left lower lobe is most likely secondary to atelectasis of the left lower lobe . For this patient should do deep breathing exercises with incentive spirometry. O2 supplementation only as needed to keep O2 sat above 92%. Patient may use albuterol HFA 2 puffs Q 4-6 hours p.r.n.. Doppler ultrasound of lower extremities to check for her DVT . Thank you very much for asthma to see this patient. Time Spent With Patient Time: Total time managing care of this patient today ____ minutes. Procedures Date of Service Date of Service: 04/10/23
--- NOTE | 2023-04-10 12:03 | PC.NURSE ---
confusion by nighttime RN with heparin drip protocols. per report given, heparin restarted at 12units/kg/hr per MD suggestion and PTT to be redrawn at 1030. will discuss with MD as to follow protocol with this result. waiting for MD callback.
--- NOTE | 2023-04-10 12:16 | PC.NURSE ---
Discussed 41.2 PTT reseult from [address] Simms stated that he wanted to begin following protocol again with this result. (IVP heparin dose to be given and rate increased to 14units/kg/hour per protocol; repeat PTT in 6 hours. Annie solis RN aware.
[2023-04-10] MEDS: Heparin Sodium,Porcine 5,000 UNIT/ML VIAL 4500 UNIT IVPUSH (12:19)
[2023-04-10 12:55] LABS: Glucose, Whole Blood 173 mg/dL (60-115)
[2023-04-10] MEDS: Heparin Sodium,Porcine/1/2NS 25,000 UNIT/250 ML IV.SOLN 15.75 UNIT IVCONT (14:29)
[2023-04-10] MEDS: Spironolactone 25 MG TABLET 200 MG PO (14:32)
[2023-04-10] MEDS: nadoloL 20 MG TABLET PO (14:33)
[2023-04-10] MEDS: rifAXIMin 550 MG TABLET PO ×2 (14:33→20:20)
[2023-04-10] MEDS: Sucralfate 1 GM TABLET PO ×2 (14:33→18:12)
[2023-04-10] MEDS: Lactulose 20 GM/30 ML SOLUTION PO (14:34)
[2023-04-10] MEDS: Insulin Lispro 100 UNIT/ML 3 ML VIAL SUBCUT (14:35)
--- NOTE | 2023-04-10 14:50 | PC.NURSE ---
unable to scan new heparin bag due to previous bag not flagging as ended . attempted to rectify the situation with Pk in pharmacy, unable due to system being down at this time. verified bag hung with nurse educator.
--- NOTE | 2023-04-10 15:39 | HO.PM.IMPN ---
Subjective Subjective Date of Service: 04/10/23 Interval History: sob ,pleural effusions Review of Systems Denies shortness of breath or chest pain or cough or phlegm or dizziness . Physical Exam Vital Signs: Vital Signs: Last Vital Signs Temp 98.4 F 04/10/23 05:05 Pulse 116 H 04/10/23 12:00 Resp 14 04/10/23 12:00 BP 151/79 H 04/10/23 12:00 Pulse Ox 98 04/10/23 12:00 O2 Del Method Room Air 04/10/23 12:00 BMI result Body Mass Index 29.4 Appearance: Alert.? Oriented X3?. cvs: rrr, [id number]. No res: air entery fair ,no rales or wheezing abd: no rebound or guarding ,nt, bs present. ext pulses present , no cyanosis ,. neuro: axo3 , nonfocal. Objective Data Active Medications Acetaminophen (Acetaminophen 325 Mg Tablet) 650 mg PO Q6H PRN PRN Reason: Pain, Mild (Pain Scale 1-3) Albuterol Sulfate (Albuterol Sulfate 90 Mcg 8 Gm Inhaler) 2 puff INHALE Q6H PRN PRN Reason: Shortness Of Breath Bupropion HCl (Bupropion Hcl Xl 300 Mg Tab.Er.24h) 300 mg PO DAILY [facility] Last Admin: 04/10/23 10:19 Dose: 300 mg Documented By: MARGARITO Dextrose (Dextrose 50 % 25 Gm/50 Ml Syringe) 25 gm IVPUSH Q15M PRN; Protocol PRN Reason: per Hypoglycemia Standing Ord. Docusate Sodium (Docusate Sodium 100 Mg Capsule) 100 mg PO DAILY PRN PRN Reason: Constipation Folic Acid (Folic Acid 1 Mg Tablet) 1 mg PO DAILY [facility] Last Admin: 04/10/23 10:20 Dose: 1 mg Documented By: MARGARITO Furosemide (Furosemide 40 Mg Tablet) 80 mg PO DAILY [facility]; Protocol Last Admin: 04/10/23 10:20 Dose: 80 mg Documented By: MARGARITO Glucose (Glucose Gel 15 Gm Gel..Gram.) 15 gm PO Q15M PRN; Protocol PRN Reason: per Hypoglycemia Standing Ord. Heparin Sodium (Porcine) (Heparin Sodium,Porcine 5,000 Unit/Ml Vial) 9,000 unit 80 unit/kg (9000 unit) IVPUSH PROTOCOL BOLUS PRN; Protocol PRN Reason: 80 unit/kg - Heparin Protocol Last Admin: 04/10/23 01:07 Dose: 9,000 unit Documented By: GABRIEL Heparin Sodium (Porcine) (Heparin Sodium,Porcine 5,000 Unit/Ml Vial) 4,500 unit 40 unit/kg (4500 unit) IVPUSH PROTOCOL BOLUS PRN; Protocol PRN Reason: 40 unit/kg - Heparin Protocol Last Admin: 04/10/23 12:19 Dose: 4,500 unit Documented By: MARGARITO Hydroxyzine HCl (Hydroxyzine Hcl 25 Mg Tablet) 25 - 50 mg PO DAILY PRN PRN Reason: itching Heparin Sodium/Sodium Chloride (Heparin Sodium,Porcine/1/2ns) 25,000 unit in 250 mls @ 0 mls/hr IVCONT .Q0M [facility]; Protocol Last Titration: 04/10/23 14:29 Dose: Infused Documented By: MARGARITO Co-signed By: BALWINDER Insulin Glargine (Insulin Glargine,Hum.Rec.Anlog 100 Unit/Ml 10 Ml Vial) 15 unit SUBCUT DAILY [facility] Last Admin: 04/10/23 10:23 Dose: 15 unit Documented By: MARGARITO Insulin Human Lispro (Insulin Lispro 100 Unit/Ml 3 Ml Vial) 0 unit SUBCUT QIDACHS [facility]; Protocol Last Admin: 04/10/23 14:35 Dose: 2 unit Documented By: MARGARITO Lactulose (Lactulose 20 Gm/30 Ml Solution) 20 gm PO TID [facility] Last Admin: 04/10/23 14:34 Dose: 20 gm Documented By: MARGARITO Lorazepam (Lorazepam 0.5 Mg Tablet) 0.5 mg PO DAILY PRN PRN Reason: anxiety attack Nadolol (Nadolol 20 Mg Tablet) 20 mg PO DAILY [facility]; Protocol Last Admin: 04/10/23 14:33 Dose: 20 mg Documented By: MARGARITO Omeprazole (Omeprazole 40 Mg Capsule.Dr) 40 mg PO DAILY@0630 [facility] Last Admin: 04/10/23 10:19 Dose: 40 mg Documented By: MARGARITO Ondansetron HCl (Ondansetron Hcl 4 Mg/2 Ml Vial) 4 mg IVPUSH Q8H PRN PRN Reason: Nausea and Vomiting Paroxetine HCl (Paroxetine Hcl 20 Mg Tablet) 20 mg PO DAILY [facility] Last Admin: 04/10/23 10:20 Dose: 20 mg Documented By: MARGARITO Rifaximin (Rifaximin 550 Mg Tablet) 550 mg PO BID [facility] Last Admin: 04/10/23 14:33 Dose: 550 mg Documented By: MARGARITO Sodium Chloride (0.9 % Sodium Chloride Flush 3 Ml Syringe) 3 ml IVFLUSH QSHIFT [facility] Last Admin: 04/10/23 09:03 Dose: Not Given Documented By: MARGARITO Non-Admin Reason: Med Not Available Spironolactone (Spironolactone 25 Mg Tablet) 200 mg PO DAILY [facility]; Protocol Last Admin: 04/10/23 14:32 Dose: 200 mg Documented By: MARGARITO Sucralfate (Sucralfate 1 Gm Tablet) 1 gm PO TIDAC [facility] Last Admin: 04/10/23 14:33 Dose: 1 gm Documented By: MARGARITO Thiamine HCl (Thiamine Hcl 100 Mg Tablet) 100 mg PO DAILY [facility] Last Admin: 04/10/23 10:20 Dose: 100 mg Documented By: MARGARITO Labs 04/10/23 04:53 04/10/23 04:53 Labs: Laboratory Results - last 24 hr 04/09/23 04/09/23 04/09/23 11:45 18:15 18:18 MCV MCH MCHC RDW Plt Count MPV Immature Gran % (Auto) Neut % (Auto) Lymph % (Auto) [place] % (Auto) Eos % (Auto) Baso % (Auto) Lymph # (Auto) [place] # (Auto) Eos # (Auto) Baso # (Auto) Abs Immat Gran (auto) Absolute Neuts (auto) Absolute Nucleated RBC Nucleated RBC % (auto) aPTT Heparin Protocol Anion Gap Estim Creat Clear Calc Estimated GFR POC Glucose 104 Random Glucose Calcium Total Bilirubin AST ALT Alkaline Phosphatase Total Protein Albumin Urine Color Dark Yellow Urine Appearance Clear Urine pH 5.5 Ur Specific [place] >= 1.030 H Urine Protein Trace Urine Glucose (UA) Negative Urine Ketones Trace Urine Blood Negative Urine Nitrite Positive H Ur Leukocyte Esterase Trace H Urine RBC 0-2 Urine WBC 0-5 Ur Squamous Epith Cells 0-2 Urine Bacteria None Seen Hyaline Casts 0-2 Pleural Total Protein 3.8 Pleural LDH 191 Pleural Glucose 126 04/09/23 04/09/23 04/09/23 18:56 20:54 21:37 MCV MCH MCHC RDW Plt Count MPV Immature Gran % (Auto) Neut % (Auto) Lymph % (Auto) [place] % (Auto) Eos % (Auto) Baso % (Auto) Lymph # (Auto) [place] # (Auto) Eos # (Auto) Baso # (Auto) Abs Immat Gran (auto) Absolute Neuts (auto) Absolute Nucleated RBC Nucleated RBC % (auto) aPTT Heparin Protocol 119.9 H* D 160.7 H* D Anion Gap Estim Creat Clear Calc Estimated GFR POC Glucose 134 H Random Glucose Calcium Total Bilirubin AST ALT Alkaline Phosphatase Total Protein Albumin Urine Color Urine Appearance Urine pH Ur Specific [place] Urine Protein Urine Glucose (UA) Urine Ketones Urine Blood Urine Nitrite Ur Leukocyte Esterase Urine RBC Urine WBC Ur Squamous Epith Cells Urine Bacteria Hyaline Casts Pleural Total Protein Pleural LDH Pleural Glucose 04/09/23 04/10/23 04/10/23 23:57 03:06 04:53 MCV 84.7 MCH 26.9 L MCHC 31.7 RDW 17.9 H Plt Count 160 MPV 9.2 L Immature Gran % (Auto) 0.2 Neut % (Auto) 59.6 Lymph % (Auto) 21.7 [place] % (Auto) 12.6 H Eos % (Auto) 4.5 H Baso % (Auto) 1.4 Lymph # (Auto) 1.1 L [place] # (Auto) 0.6 Eos # (Auto) 0.2 Baso # (Auto) 0.1 Abs Immat Gran (auto) 0.01 Absolute Neuts (auto) 2.9 Absolute Nucleated RBC 0.000 Nucleated RBC % (auto) 0.0 aPTT Heparin Protocol 31.8 L D > 200.0 H* D 40.1 L D Anion Gap 14 Estim Creat Clear Calc 157.0 Estimated GFR > 60 POC Glucose Random Glucose 112 Calcium 8.7 Total Bilirubin 2.9 H AST 40 H ALT 18 Alkaline Phosphatase 224 H Total Protein 7.2 Albumin 2.9 L Urine Color Urine Appearance Urine pH Ur Specific [place] Urine Protein Urine Glucose (UA) Urine Ketones Urine Blood Urine Nitrite Ur Leukocyte Esterase Urine RBC Urine WBC Ur Squamous Epith Cells Urine Bacteria Hyaline Casts Pleural Total Protein Pleural LDH Pleural Glucose 04/10/23 04/10/2304/10/23 07:39 11:14 12:45 MCV MCH MCHC RDW Plt Count MPV Immature Gran % (Auto) Neut % (Auto) Lymph % (Auto) [place] % (Auto) Eos % (Auto) Baso % (Auto) Lymph # (Auto) [place] # (Auto) Eos # (Auto) Baso # (Auto) Abs Immat Gran (auto) Absolute Neuts (auto) Absolute Nucleated RBC Nucleated RBC % (auto) aPTT Heparin Protocol 41.2 L Anion Gap Estim Creat Clear Calc Estimated GFR POC Glucose 114 173 H Random Glucose Calcium Total Bilirubin AST ALT Alkaline Phosphatase Total Protein Albumin Urine Color Urine Appearance Urine pH Ur Specific [place] Urine Protein Urine Glucose (UA) Urine Ketones Urine Blood Urine Nitrite Ur Leukocyte Esterase Urine RBC Urine WBC Ur Squamous Epith Cells Urine Bacteria Hyaline Casts Pleural Total Protein Pleural LDH Pleural Glucose Microbiology Microbiology Results: Microbiology 04/09/23 18:37 Urine Culture - Preliminary Urine clean catch - Urine miranda top No growth to date. 04/09/23 11:45 Gram Stain - Final Pleural Fluid Routine Culture - Preliminary No growth to date. Anaerobic Culture - Preliminary No growth to date. Assessment and Plan (1) Pulmonary embolism, bilateral: Status: Acute (2) Pleural effusion: Status: Acute Plan day -2. 57-year-old male with history of insulin-dependent type 2 diabetes, alcohol use disorder with alcoholic cirrhosis, esophageal varices, portal hypertension, ascites, main portal vein thrombosis currently not on anticoagulation, GERD, COPD, and recurrent left-sided pleural effusion admitted for bilateral pulmonary embolus with large left-sided pleural effusion. bilateral pulmonary embolus -IV heparin per pt/ptt per protocol -no hypoxia, troponin neg, BNP WNL -no evidence of right heart strain noted -echocardiogram: ef 65-70% ,Normal right ventricular cavity size and systolic function. recurrent left-sided pleural effusion-thoracentesis performed by IR noting serosanguineous to blood tinged pleural fluid CTA chest not noting any evidence of mass but does show consolidation of the left lower lobe. Patient is currently asymptomatic pleural fluid analysis reviewed and seen by pulmonology -possible hepatic cirrosis related pleural effusion hypokalemia -repleted and resolved. insulin-dependent type 2 diabetes fs 100-170's -dose adjusted basal insulin, Humalog sliding scale -POC glucose -diabetic diet decompensated alcoholic cirrhosis complicated by esophageal varices, portal vein thrombosis, ascites -continue Lasix, spironolactone nadolol, rifaximin -now on heparin per protocol, will need to be transition to NOAC -alcohol cessation advised mood disorder -continue home med GERD -continue PPI COPD -no acute exacerbation -albuterol p.r.n. DVT prophylaxis-heparin Full code ongoing hospitilisation need: management of bilateral pulmonary embolus with left-sided pleural effusion s/p thoracentesis requiring IV heparin per protocol, close monitoring for decompensation, and expert consultation. Time Spent With Patient Time: Total time managing care of this patient today ____ minutes. Quality Stroke Does the patient have a stroke diagnosis?: No VTE Prior VTE?: No VTE Risk Level:: Medical - moderate - high VTE Device Contraindication: Treatment Not Indicated VTE Drug Contraindication: N/A - Med Ordered
--- NOTE | 2023-04-10 17:13 | MHC.EDTECH ---
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
--- NOTE | 2023-04-10 17:23 | PC.NURSE ---
spoke with Snow, pharmacist about heparin bag documentation. new heparin bag scanned and back logged into the mar, matching up when the drip was due/initiated. report given to DANIA Miller and aware of heparin documentation.
[2023-04-10 17:55] LABS: Glucose, Whole Blood 133 mg/dL (60-115)
--- NOTE | 2023-04-10 18:20 | PC.NURSE ---
heparin drip infusing per AUG. sucralfate given before meal. no lispro given - no coverage needed POC 133
[2023-04-10 18:56] LABS: PTT Heparin Drip 54.3 SEC (53-77.9)
--- NOTE | 2023-04-10 19:23 | PC.NURSE ---
this rn assumed care of pt. pt reporting 5/10 pain in his chest when breathing in and out, reached out to . pt heparin drip titreated per aug and next PTT HD order placed. pt vss. normal sinus on tele .
--- NOTE | 2023-04-10 19:32 | PC.NURSE ---
report given to [facility] [place] nurse.
[2023-04-10 20:40] LABS: Glucose, Whole Blood 146 mg/dL (60-115)
[2023-04-11] VITALS: BP 119/73; PULSE 87; RESP 20; TEMP 36.3; O2SAT 94
[2023-04-11 01:22] LABS: PTT Heparin Drip 49.5 SEC (53-77.9)
[2023-04-11] MEDS: Heparin Sodium,Porcine 5,000 UNIT/ML VIAL 4500 UNIT IVPUSH (01:57)
[2023-04-11 03:21] VITALS: BP 107/61; PULSE 82; RESP 20; TEMP 36.8; O2SAT 92
[2023-04-11] MEDS: Heparin Sodium,Porcine/1/2NS 25,000 UNIT/250 ML IV.SOLN 18 UNIT IVCONT (04:48)
[2023-04-11] MEDS: Omeprazole 40 MG CAPSULE.DR PO (05:41)
--- NOTE | 2023-04-11 06:20 | PC.NURSE ---
pt came to the floor from ED with heparin drip running at 14units/kg/hr. next ptt was ordered for 0100 that draw came back at 49.5 so heparin bolus of 4,500 units and the infusion rate was increased to 16units/kg/hr per policy. pt has no bleeding and old bruises from lab draws. IV is patent and asymptomatic.
[2023-04-11 07:08] LABS: Glucose, Whole Blood 103 mg/dL (60-115)
[2023-04-11 07:45] VITALS: BP 121/74; PULSE 81; RESP 20; TEMP 36.6; O2SAT 96
[2023-04-11] MEDS: Sucralfate 1 GM TABLET PO (08:08)
[2023-04-11] MEDS: Furosemide 40 MG TABLET 80 MG PO (08:08)
[2023-04-11] MEDS: Thiamine HCL 100 MG TABLET PO (08:08)
[2023-04-11] MEDS: rifAXIMin 550 MG TABLET PO (08:09)
[2023-04-11] MEDS: Folic Acid 1 MG TABLET PO (08:09)
[2023-04-11] MEDS: Apixaban 5 MG TABLET 10 MG PO (08:09)
[2023-04-11] MEDS: nadoloL 20 MG TABLET PO (08:09)
[2023-04-11] MEDS: Spironolactone 25 MG TABLET 200 MG PO (08:10)
[2023-04-11] MEDS: PARoxetine HCL 20 MG TABLET PO (08:10)
[2023-04-11] MEDS: Lactulose 20 GM/30 ML SOLUTION PO (08:11)
[2023-04-11] MEDS: buPROPion HCl XL 300 MG TAB.ER.24H PO (08:11)
[2023-04-11] MEDS: 0.9 % Sodium Chloride Flush 3 ML SYRINGE IVFLUSH (08:11)
[2023-04-11] MEDS: Insulin Glargine,Hum.rec.anlog 100 UNIT/ML 10 ML VIAL 15 UNIT SUBCUT (08:12)
[2023-04-11 08:17] LABS: PTT Heparin Drip 95.8 SEC (53-77.9)
[2023-04-11 11:00] LABS: Glucose, Whole Blood 132 mg/dL (60-115)
--- NOTE | 2023-04-11 11:01 | MHC.CM.PN ---
PT MEDICALLY CLEARED FOR DC HOME SELF CARE AND NEW SCRIPT FOR ELIQUIS, PT PROVIDED W/ELIQUIS COUPON HOWEVER MEDICATION WILL BE COVDERED BY [facility], FAMILY FOR TRANSPORT
[2023-04-11 11:06] VITALS: BP 116/70; PULSE 84; RESP 20; TEMP 36.7; O2SAT 95
--- NOTE | 2023-04-11 11:07 | P.DS_ITS ---
DS: Providers Provider Date of Service: 04/11/23 Date of admission: 04/09/23 15:09 Date of discharge: 04/11/23 Primary care physician: Martin Avilez MD Consults: 04/09/23 13:36 Consult to Pulmonology Routine Consulting Provider: [facility] Pulmonology [facility] Reason for consultation: recurrent pleural effusions, bilateral PE Attending physician on discharge: Gretta Simms Discharging clinician: Gretta Simms DS: Diagnosis Discharge Diagnosis (1) Pulmonary embolism, bilateral: Status: Acute (2) Pleural effusion: Status: Acute DS: Summary Hospital Course Hospital Course: 57-year-old male with history of insulin-dependent type 2 diabetes, alcohol use disorder with alcoholic cirrhosis, esophageal varices, portal hypertension, ascites, main portal vein thrombosis currently not on anticoagulation, GERD, COPD, and recurrent left-sided pleural effusion presents to the ED for e valuation of large left-sided pleural effusion noted on chest x-ray this morning per pulmonology. The patient is reporting that he has been experiencing dyspnea on exertion for some time and had upcoming appointment with his event representative, Dr. Alvarez, and requested chest x-ray prior to appointment. He denies any fevers, chills, nausea, vomiting, abdominal pain, diarrhea, melena, hematochezia, lightheadedness, cough, presyncope, palpitations, or chest pain. On arrival, patient tachycardic to 107, slightly tachypneic to 22, vital signs otherwise stable. No hypoxia. Hematology studies baseline. Renal function normal, electrolyte levels normal except for mild hypokalemia of 3.2. Glucose 130. AST 39, ALT 21, total bilirubin 1.6, alkaline phosphatase 227. Troponin undetectable. BNP 20. Albumin 3.3. COVID-19 negative. D-dimer elevated >900. INR 1.1, PT 13.9, PTT 30.3. CTA chest shows filling defects in the upper lobes positive for pulmonary emboli though evaluation is limited by motion artifact and suboptimal contrast bolus timing. There is also left lower lobe consolidation and large left pleural effusion. There is also a nodular surface contour of the liver representing cirrhosis with moderate ascites. While in the ED, thoracic surgery consulted and patient underwent thoracentesis draining 1.5 L serosanguineous to slightly blood-tinged fluid. Radiologist recommending heparin drip be started 1 hour following procedure but hold bolus for 2 hours. Patient has now been started on heparin drip per protocol and given 40 mEq potassium chloride. Patient does follow with Dr. Candace leone and Gastroenterology but is not on transplant list. He continues to drink occasional alcohol but denies regular use. He denies cigarette smoking or illicit drug use but does smoke ma rijuana on a regular basis. Hospital course: Patient came to the hospital because of acute pulmonary embolism and also found to have large left pleural effusion: Patient was started on anticoagulation for pulmonary embolism as well as had thoracentesis for left pleural effusion. In addition patient had CTA done-which showed pulmonary embolism, as well as some consolidation on the left lower lobe. dvt studies ,trops ,bnp negative.echo seems fine-The left ventricular systolic function is normal. The visually estimated ejection fraction is between 65-70%. Normal right ventricular cavity size and systolic function. Pleural fluid seems mostly cirrhosis related. Thoracentesis cultures preliminary negative, cytology pending, Patient was seen by Pulmonary recommende d to continue anticoagulation for pulmonary embolism, left-sided opacity was likely due to atelectasis-patient was strongly advised for the breathing exercises and anti incentive spirometry. Consider outpatient hematology evaluation for further workup if needed for pulmonary embolism. Patient also has cirrhosis of liver: Patient was strongly advised to abstain from alcohol, continue home diuretic regimen. Follow-up with PCP outpatient. Hypokalemia: Resolved, monitor BMP outpatient. plan: Continue Eliquis 2 tabs p.o. b.i.d.until 04/17/23,then switch to Eliquis 1 tabs p.o. b.i.d. atelectasis-patient was strongly advised for the breathing exercises and anti incentive spirometry. follow thoracentesis fluid cytology outpatient . Consider outpatient hematology evaluation for further workup if needed for pulmonary embolism. Assessment plan coordination time spent 50 minute. Time Spent with Patient Time attestation: Total time managing care of this patient today ____ minutes. Discharge coordination time: Greater than 30 minutes Quality: Safe Use of Opioids Does Pt have an Active Cancer Diagnosis on the Problem List?: No Quality: Stroke Does the patient have a stroke diagnosis?: No Physical Exam Vital Signs: Vital Signs: Last Vital Signs Temp 97.9 F 04/11/23 07:45 Pulse 81 04/11/23 07:45 Resp 20 04/11/23 07:45 BP 121/74 04/11/23 07:45 Pulse Ox 96 04/11/23 07:45 O2 Del Method Room Air 04/11/23 07:45 BMI result Body Mass Index 29.4 Appearance: Alert.? Oriented X3?. cvs: rrr, [id number]. No res: air entery fair ,no rales or wheezing abd: no rebound or guarding ,nt, bs present. ext pulses present , no cyanosis . neuro: axo3 , nonfocal. DS: Data Data Completed and Pending Completed studies during hospitalization [Text1]: Procedures Control Bleeding in Gastrointestinal Tract, Via Natural or Artificial Opening Endoscopic (11/01/21) Detoxification Services for Substance Abuse Treatment (12/06/21) Drainage of Peritoneal Cavity, Percutaneous Approach (11/27/22) Drainage of Right Pleural Cavity, Percutaneous Approach (12/06/21) Introduction of Mineral-based Topical Hemostatic Agent into Upper GI, Via Natural or Artificial Opening Endoscopic, [employer] (11/27/22) Occlusion of Esophageal Vein with Extraluminal Device, Via Natural or Artificial Opening Endoscopic (11/27/22) Pending studies at discharge: Pending at discharge 04/09/23 12:01 Cytology [PTH] Routine Labs on day of discharge: Laboratory Results - last 24 hr 04/10/23 04/10/23 04/10/23 11:14 12:45 17:11 Hold Purple Top aPTT Heparin Protocol 41.2 L POC Glucose 173 H 133 H 04/10/23 04/10/23 04/11/23 18:42 20:37 00:58 Hold Purple Top aPTT Heparin Protocol 54.3 D 49.5 L POC Glucose 146 H 04/11/23 04/11/23 04/11/23 07:00 07:54 10:53 Hold Purple Top SEE NOTE aPTT Heparin Protocol 95.8 H D POC Glucose 103 132 H Preliminary micro results at discharge 04/09/23 11:45 Anaerobic Culture - Preliminary Pleural Fluid No growth to date. 04/09/23 18:37 Urine Culture - Preliminary Urine clean catch - Urine miranda top No growth to date. Imaging Chest x-ray: Radiologist's impression: ITS Impressions Chest CTA 04/09/23 08:41 IMPRESSION: Filling defects are likely demonstrated within the upper lobes positive for pulmonary embolus. Evaluation is limited by motion artifact and suboptimal contrast bolus timing. Left lower lobe consolidation and large left pleural effusion. Nodular surface contour of the liver likely representing cirrhosis with moderate ascites. VTE: positive Thoracentesis Ultrasound 04/09/23 12:00 IMPRESSION: Ultrasound-guided left thoracentesis. Chest X-Ray 04/09/23 12:15 IMPRESSION: Improved left pleural effusion status post thoracentesis with apparent significant residual pleural effusion with likely associated atelectasis. No pneumothorax identified. Venous Duplex 04/10/23 10:41 IMPRESSION: No DVT demonstrated in the bilateral lower extremity. Discharge Plan Discharge Anticipated Discharge Date/Time: 04/11/23 10:46 Patient Disposition: Home, Self-Care Discharge Diagnosis: pulmonary embolism ,hemoptysis Referrals: Becka Iqbal MD [Physician] - 1 Week Martin Avilez MD [Primary Care Provider] - 1 Week Discharge Medications: New Eliquis 5 mg Tablet 10 mg PO BID Qty: 40 0RF Rx Instructions: please take eliquis 2 tab(10 mg) twice daily for 7 days ( until 05/18/23),then switch to eliquis 1 tab(5 mg) bid . Continued furosemide 40 mg tablet 80 mg PO DAILY 90 Days Qty: 180 0RF Hold Instructions: Check with nephrology before restarting spironolactone 100 mg tablet 200 mg PO DAILY 90 Days Qty: 180 0RF Hold Instructions: Check with nephrology before restarting omeprazole 40 mg capsule,delayed release(DR/EC) 40 mg PO DAILY@0630 Qty: 90 1RF Xifaxan 550 mg tablet 550 mg PO BID Qty: 60 6RF paroxetine HCl 20 mg tablet 20 mg PO DAILY oxycodone 5 mg capsule 5 mg PO Q4-6H PRN (Reason: Pain) ondansetron 4 mg tablet,disintegrating 4 mg PO Q8H PRN (Reason: nausea and vomiting) Qty: 14 0RF (DME) FreeStyle Lite Strips Strip See Rx Instructions .ROUTE .MEDSUPPLY Qty: 100 2RF Rx Instructions: QID (DME) lancets Misc See Rx Instructions .ROUTE .MEDSUPPLY Qty: 200 2RF Rx Instructions: 4 times daily (DME) blood-glucose meter [FreeStyle Lite Meter] Kit See Rx Instructions .ROUTE .MEDSUPPLY Qty: 1 0RF Rx Instructions: As directed (DME) pen needle, diabetic [Pen Needle] 31 gauge x 5/16 needle See Rx Instructions .ROUTE .MEDSUPPLY Qty: 1200 0RF Rx Instructions: As directed insulin glargine 100 unit/mL (3 mL) insulin pen 20 unit subcut DAILY insulin lispro 100 unit/mL insulin pen 1 sliding scale dose subcut QIDACHS Protocol: Insulin Correction Scale Less than or equal to 110 ---- Give (units): 0 111 to 150 Give (units): 0 151 to 200 Give (units): 2 201 to 250 Give (units): 4 251 to 300 Give (units): 6 301 to 350 Give (units): 8 Greater than 350 Give (units): 10 Call MD if Blood Glucose > : 350 nadolol 20 mg Tablet 20 mg PO DAILY Qty: 30 0RF Protocol: Hold for SBP/HR < HOLD for SBP < : 90 HOLD for HR < : 60 sucralfate 1 gram Tablet 1 g PO TIDAC Qty: 90 0RF hydroxyzine pamoate 25 mg capsule 25 - 50 mg PO DAILY PRN (Reason: itching) Rx Instructions: ITCHING/ANXIETY albuterol sulfate [ProAir HFA] 90 mcg/actuation HFA aerosol inhaler 2 puff inhalation Q6H PRN (Reason: Shortness Of Breath) folic acid 1 mg tablet 1 mg PO DAILY bupropion HCl 300 mg tablet extended release 24 hr 300 mg PO DAILY thiamine HCl (vitamin B1) 100 mg tablet 100 mg PO DAILY lorazepam 0.5 mg tablet 0.5 mg PO DAILY PRN (Reason: anxiety attack) lactulose 10 gram/15 mL solution 30 ml PO TID 30 Days Qty: 2700 0RF Discharge Orders: Discharge Order (Routine); Ordered 04/11/23 Ordered By: Gretta Simms Diet: Advance to usual diet Activity on Discharge: As tolerated Stand Alone Forms: Patient Portal Discharge page Care Plan Goals: Patient came to the hospital because of acute pulmonary embolism and also found to have large left pleural effusion: Patient was started on anticoagulation for pulmonary embolism as well as had thoracentesis for left pleural effusion. In addition patient had CTA done-which showed pulmonary embolism, as well as some consolidation on the left lower lobe. Pleural fluid seems mostly cirrhosis related. Patient was seen by Pulmonary recommended to continue anticoagulation for pulmonary embolism, left-sided opacity was likely due to atelectasis-patient was strongly advised for the breathing exercises and anti incentive spirometry. Consider outpatient hematology evaluation for further workup if needed for pulmonary embolism. Patient also has cirrhosis of liver: Patient was strongly advised to abstain from alcohol, continue home diuretic regimen. Follow-up with PCP outpatient. Hypokalemia: Resolved, monitor BMP outpatient. Health Concerns: As above. Plan of Treatment: As above. Assessment: As above. Patient Instructions: Pulmonary Embolism (DC)
[2023-04-11] MEDS: oxyCODONE HCl Immed Release 5 MG TABLET PO (11:21)
== END 2023-04-11 11:44 | disposition home or self-care (01) | DRG 432 ==
LOC: HO.ED 11:33 → HO.EDOVER 23:22 → HO.IMC 04-10 19:13
PROVIDERS: Physician Assistant; Radiology Diagnostic Radiology; Student in an Organized Health Care Education/Training Program; Admitting Provider Physician Assistant; Emergency Provider Emergency Medicine; PCP Internal Medicine; Visit Provider Internal Medicine
DX: K70.31 Alcoholic cirrhosis of liver with ascites (principal); I26.99 Other pulmonary embolism without acute cor pulmonale; I81 Portal vein thrombosis; J91.8 Pleural effusion in other conditions classified elsewhere; I85.10 Secondary esophageal varices without bleeding; J98.11 Atelectasis; K76.6 Portal hypertension; F10.20 Alcohol dependence, uncomplicated; E87.6 Hypokalemia; F39 Unspecified mood [affective] disorder; E11.42 Type 2 diabetes mellitus with diabetic polyneuropathy; Z20.822 Contact with and (suspected) exposure to COVID-19; Z87.891 Personal history of nicotine dependence; Z79.4 Long term (current) use of insulin; Z79.899 Other long term (current) drug therapy
CPT/HCPCS: 32555; 36415; 71045; 71275; 80053; 81001; 82945; 82947; 83615; 83735; 83880; 84157; 84484; 85025; 85379; 85610; 85730; 87070; 87073; 87086; 87205; 87635; 88112; 88305; 89051; 93005; 93308; 93970; 99285; J1643; Q9957; Q9967

== ENCOUNTER → 2023-04-09 06:52 | Outpatient (BNV) | payer OTHER, SELFPAY | PROVIDERS: Emergency Provider Emergency Medicine; PCP Internal Medicine; Visit Provider Physician Assistant | DX: I26.99 Other pulmonary embolism without acute cor pulmonale (principal); J90 Pleural effusion, not elsewhere classified | CPT/HCPCS: 99223; 99232; 99239 ==

== ENCOUNTER → 2023-04-09 06:52 | Outpatient (BNV) | payer OTHER, SELFPAY | PROVIDERS: Emergency Provider Emergency Medicine; PCP Internal Medicine; Visit Provider Surgery | DX: J90 Pleural effusion, not elsewhere classified (principal) | CPT/HCPCS: 99222 ==

== ENCOUNTER → 2023-04-09 09:44 | Outpatient (BNV) | payer OTHER, SELFPAY | PROVIDERS: Emergency Provider Emergency Medicine; PCP Internal Medicine; Visit Provider Radiology Diagnostic Radiology | DX: J90 Pleural effusion, not elsewhere classified (principal) | CPT/HCPCS: 32555 ==

== ENCOUNTER 2023-04-09 15:09 | Outpatient (BNV) | payer OTHER, SELFPAY | END 2023-04-10 07:00 | PROVIDERS: Admitting Provider Physician Assistant; Emergency Provider Emergency Medicine; PCP Internal Medicine; Visit Provider Internal Medicine | DX: I26.99 Other pulmonary embolism without acute cor pulmonale (principal); J90 Pleural effusion, not elsewhere classified | CPT/HCPCS: 93308 ==

== ENCOUNTER → 2023-04-09 15:09 | Outpatient (BNV) | payer OTHER, SELFPAY | PROVIDERS: Admitting Provider Physician Assistant; Emergency Provider Emergency Medicine; PCP Internal Medicine; Visit Provider Internal Medicine | DX: K70.30 Alcoholic cirrhosis of liver without ascites (principal); I81 Portal vein thrombosis; J90 Pleural effusion, not elsewhere classified; I26.99 Other pulmonary embolism without acute cor pulmonale | CPT/HCPCS: 99222 ==

== ENCOUNTER → 2023-04-10 08:29 | Outpatient (BNVA) | payer OTHER, SELFPAY | PROVIDERS: PCP Internal Medicine; Visit Provider Hospitalist ==

== ENCOUNTER 2023-04-17 12:34 | Outpatient (REF) | payer OTHER, SELFPAY ==
--- NOTE | ~2023-04-17 | XR_ITS ---
EXAMINATION: XR CHEST CLINICAL INFORMATION: Pleural effusion COMPARISON: 04/09/2023 TECHNIQUE: 3 views of the chest FINDINGS: There is no gross pneumothorax. Imaged portion of the cardiomediastinal silhouette is stable. Redemonstration of left basilar consolidation with moderate left pleural effusion. No new focal consolidation identified in the right lung. XR/XR chest 2V IMPRESSION: Moderate left pleural effusion is slightly increased with persistent left basilar consolidation.
== END 2023-04-17 12:35 | disposition home or self-care (01) ==
LOC: HO.XRAY 12:34
PROVIDERS: PCP Internal Medicine; Visit Provider Hospitalist
DX: J90 Pleural effusion, not elsewhere classified (principal)
CPT/HCPCS: 71046

== ENCOUNTER 2023-04-26 10:22 | Outpatient (AMB) | payer OTHER, SELFPAY ==
[2023-04-26 10:26] VITALS: BP 122/60; PULSE 91; O2SAT 97; BMI 29.6
--- NOTE | 2023-04-26 10:26 | A.OFFVIS_ITS ---
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 Was most recently discharged 11/03/2021 after hospitalization GI bleed.? Patient now complaining of several days of right-sided chest pain, sharp, worse with inspiration.? Associated with shortness of breath worse on exertion, improved with rest, progressively worsening.? Patient continues to drink alcohol, last drink was 2 days prior to presentation.? He has also noticed to be feeling shaky.? In ED CTA was negative for PE but did show moderate right-sided effusion. the patient did undergo thoracentesis demonstrating what appeared to be a transudative process, lymphocytic predominant. His lymphocyte count was elevated In the pleural fluid. The patient did feel better after the thoracentesis. He did not have any abdominal interventions. After the procedure the patient felt better and subsequently was discharged. we did review his imaging studies including his CT scan demonstrating moderate to large pleural effusion on the right side. Explained to him that this is consistent with hepatic hydrothorax. the patient does have a history of varices in addition to portal vein thrombosis. He does have a prescription for Aldactone and Lasix. We talked about the importance of taking the medication. He also needs to take additional diuretic if he is getting any weight. His kidney function is stable. We did talk about his meld score demonstrating of 3 month mortality of 20%. Patient understands that this is very serious. His only potential intervention will be to quit drinking and being referred to a transplant center. The patient did have misconceptions about liver transplants. We did re-educated about the benefits of liver transplant specially with his worsening liver failure. The patient understands that alcohol withdrawal can be very serious. Once he starts withdrawal he needs to seek medical care. the cough 02/14/2022 the patient is here for a pulmonary follow-up visit. Overall he is feeling better. He was hospitalized in he did undergo a thoracentesis. The patient did develop a complication of a hydropneumothorax. He did have a repeat CT scan of the chest after thoracentesis. It appeared that the pleura for the most part appear to be thin without any evidence of any lung entrapment. This was out the possibility of lung entrapment as a cause of the pneumothorax. The patient also appeared to have slight amount of fluid in the subdiaphragmatic area consistent with ascites. He was recently evaluated by GI and his diuretics were increased. He feels fairly well. Denies any worsening of his shortness of breath. He does not feel like he needs further thoracentesis or interventions at this time which is extremely positive. He was given good occasional GI and he understands what he needs to do to stay well as much as possible. He is scheduled to undergo repeat ultrasound of the abdomen and will also have him get an x-ray around that time. He did ask the question about the possible etiologies. I did explain that hepatic hydrothorax was the likely process in view of the other medical issues that he has and the ascites noted on the CT scan as well as a transudative fluid and the saag of 1.3. I did review his recent chest x-ray which demonstrated interval resolution of the pneumothorax which is great. The pleural effusion appears to be stable. Patient may also have an elevation of his right hemidiaphragm making the effusion appeared to be worse. 07/11/2022 the patient is here for pulmon mariano follow-up visit. Patient complains of significant shortness of breath. Moderate severity. She is thinking of possibly go back to the ER because the breathing is getting much worse. Even at rest. His breathing was like this last week where he was seen in the ER noted to have a recurrent left-sided pleural effusion. Again he underwent a thoracentesis draining 2 L. This time the fluid was clear. Prior to that he had the pleural effusion drain in appear to be serous sanguinous. Unclear if she had any injury to the area are from was traumatic. Yet the LDH was not significantly elevated and cytology negative. Now again he started to develop increasing shortness of breath even after just a few days after having the thoracentesis. Unfortunately in further questions he states that he ran out of his Lasix and also out doctor so he has been without it for the last several days. His urine output has decreased significantly. And I do believe that the fact that he has been without the medication has resulted in the significant rebound pleural effusion. I did call Radiology to see if we can arrange for him to get a left-sided thoracentesis done for therapeutic purposes to avoid a ER visit. They cannot do it today but they will see about tomorrow. I will send a prescription a prescription over for both his Lasix and Aldactone which she should start today. Although, initially was getting infusions on the right side and now on the left there maybe a component of self pleurodesis that may have occurred on his right side in view of the multiple thoracentesis. Still the pleural effusions are still likely related to hepatic hydrothorax with increasing abdominal girth and ascites. If there is still a question of uncertainty as far as the etiology for the pleural effusions then a thoracoscopy or video-assisted thoracoscopy may be warranted. He was already referred to thoracic surgery in the past. 09/20/2022 the patient is here for a pulm onary follow-up visit. The patient overall has been doing good from a respiratory status. The last time he underwent a thoracentesis back in 07/07/2021. It left a residual small effusion. The patient tolerated procedure well. He has not required any additional thoracentesis or paracentesis. He has continued to uses diuretic as prescribed. The additional diuretics have been effective in controlling his hepatic hydrothorax. He recently did undergo an ultrasound of the liver demonstrating the cirrhosis. Also demonstrating mild ascites and small pleural effusion. We did look at the fusion or cells. He also has a nonocclusive portal vein clot. This point it is only nonocclusive. He was referred to Hematology. The patient understands that he is about develops sudden significant lower extremity edema and ascites he has to go to the ER for evaluation. In the meantime, if the patient develops any worsening shortness of breath he is able to get a chest x- ray in that knee now in order to assess the need for thoracentesis. 12/27/2022 the patient is here for a pulmonary follow-up visit. Recently was admitted to the hospital with a upper GI bleed secondary to esophageal varices. The patient underwent endoscopy and currently doing better. The patient also has a complication of the hepatic hydrothorax. Has not required thoracentesis since he is doing better with diuresis. Now recommended he consider tips procedure. Explained to the patient if he does undergo tips the risk for the recurrent pleural effusions will decrease. the patient is working on his alc ohol cessation. Currently drinking nonalcoholic beer which appears to be effective for him. Currently patient is doing well he will call he has any worsening symptoms otherwise will follow-up in 3-4 months. 04/26/2023 the patient is here for a pulm onary follow-up visit. The patient had been in the hospital he was diagnosed with a pulmonary embolism. In addition to that he had a left-sided pleural effusion. It was drained. It was a little bit more serosanguineous. Afterwards he was having some shortness of breath we did repeat the chest x-ray demonstrating interval worsening of the pleural effusion and we did request for thoracentesis. He has not have had the thoracentesis as of yet. However, he is feeling better. On examination I do appreciate some breath sounds at the left base which is reassuring. Therefore will hold off on the thoracentesis specially since he is on the blood thinners and will go ahead and repeat the x-ray in 2-3 weeks. If he has any worsening symptoms he can always get the x-ray sooner. He knows that for any procedure he would have to stop the Eliquis for a couple days. He also understands that with blood clots he needs to be on the blood thinners for at least 3 months. If not longer. The patient has had a history of blood clots I think in the portal vein system. No evidence of any lower extremity DVTs which is reassuring. He is tolerating the Eliquis without any evidence of any bleeding. Unfortunately the still drinking alcohol. We did talk about making sure that he quits drinking in order to consider the possibility of a lung transplant in the future. [facility] Medical History Cirrhosis of liver Diabetes Alcohol use disorder, moderate, dependence Recurrent left pleural effusion Pleural effusion Pericardial effusion Tachycardia Dyspnea Hydropneumothorax Pleural effusion on right Decompensation of cirrhosis of liver Cirrhosis GERD (gastroesophageal reflux disease) Esophageal varices Chronic abdominal pain Gout Peripheral neuropathy Alcoholism Elevated LFTs Surgical History Hx of esophagogastroduodenoscopy History of thoracentesis H/O colonoscopy H/O cervical spine surgery H/O hemicolectomy Family History Mother Cancer Sister Cancer Social History Household Members: Other Household Members Other:: Roomate Housing: Apartment Do you presently have visiting nurse or other home services: No Alcohol intake: current Alcohol intake frequency: holidays/special occasions only Alcohol type: hard liquor Patient Tobacco Use Status: Former Tobacco user Quit Date: 1 mth ago Tobacco use type: Cigarette Years Smoked: 30 e-Cigarette/Vaping Use: Currently Using Second Hand Smoke Exposure: No Substance Use Type: Marijuana Advance Directives Date on File: 11/27/22 service: No Current occupational status: unemployed Review of Systems Const Denies fatigue, Denies fever(s), Denies night sweats, Reports poor appetite and Reports weight loss Eyes Denies change in vision ENT Reports Normal hearing present Card Reports no additional complaints, Denies chest pain and Reports dyspnea on exertion Resp Denies chest congestion, Denies cough, Denies hemoptysis, Denies pain on inspiration, Denies pain with cough and Reports dyspnea on exertion GI Reports abdominal pain Musc Reports arthralgias Skin/Breast Denies pruritus Neuro Reports Normal hearing present and Denies Abnormal speech present Endo Denies fatigue Physical Exam Vital Signs: Last Vital Signs Pulse 91 04/26/23 10:26 BP 122/60 04/26/23 10:26 Pulse Ox 97 04/26/23 10:26 Oxygen Delivery Method Room Air 04/26/23 10:26 BMI result Body Mass Index 29.6 Const General: alert Orientation/consciousness: patient oriented x3 HEENT Head: Yes normal to inspection Eyes Conjunctivae: conjunctival abnormal bilateral conjunctival icterus Neck Neck: Yes supple Chest Chest palpation & inspection: normal inspection of the chest Resp Effort & Inspection: normal respiratory effort Auscultation: no rales and diminished lung sounds Percussion: no dullness to percussion Cardio Rate: regular rate Rhythm: regular rhythm Heart sounds: S1 normal heart sound present and S2 normal heart sound present GI Inspection: Yes distended Skin General skin exam: spider nevi Neuro General: patient oriented x3 Cranial nerves: Yes Normal hearing present Speech: No Abnormal speech present Extrem General: Yes no clubbing, cyanosis or edema Assessment & Plan Assessment & Plan (1) Pleural effusion: Code(s): J90 - Pleural effusion, not elsewhere classified (2) Pulmonary embolism, bilateral: Code(s): I26.99 - Other pulmonary embolism without acute cor pulmonale (3) Alcoholic cirrhosis of liver: Code(s): K70.30 - Alcoholic cirrhosis of liver without ascites Qualifiers: Ascites presence: with ascites Qualified Code(s): K70.31 - Alcoholic cirrhosis of liver with ascites Plan continue Eliquis for at least 3 months CXR in 3-4 weeks No need for thoracentesis at this time diuresis as tolerated Needs help with ETOH dependednce ?AA F/U 3-4 months Orders: Orders XR chest 2V Today J90 - Pleural effusion, not elsewhere classified Coding Level of Care Code Est Pt Level 4 (39331) Diagnoses Pleural effusion J90 Pulmonary embolism, bilateral I26.99 Alcoholic cirrhosis of liver with ascites K70.31 Ascites presence: with ascites Time Spent (min) 18
== END 2023-04-26 10:51 | disposition home or self-care (01) ==
PROVIDERS: PCP Internal Medicine; Visit Provider Hospitalist
DX: J90 Pleural effusion, not elsewhere classified (principal); I26.99 Other pulmonary embolism without acute cor pulmonale; K70.31 Alcoholic cirrhosis of liver with ascites
CPT/HCPCS: 99214

== ENCOUNTER → 2023-04-26 10:22 | Outpatient (BNVA) | payer OTHER, SELFPAY | PROVIDERS: PCP Internal Medicine; Visit Provider Hospitalist | DX: J90 Pleural effusion, not elsewhere classified (principal); I26.99 Other pulmonary embolism without acute cor pulmonale; K70.31 Alcoholic cirrhosis of liver with ascites | CPT/HCPCS: 99212 ==

== ENCOUNTER 2023-05-15 13:35 | Outpatient (AMB) | payer OTHER, SELFPAY ==
--- NOTE | 2023-05-15 13:38 | A.OFFVIS_ITS ---
Intake Vital Signs 05/15/23 13:44 Height 6 ft 5 in Weight 235 lb 14.314 oz BMI 28.0 Blood Pressure Location Lt brachial Position Sitting Intake Visit Reasons: Dr. Hawk PT follow up decomp cirrhosis Intake Note: Akash presents in the office as a follow up for decomposing cirrhosis. He is a Dr. Hawk patient. CC: He states that he is not having any concerns at this time. Allergies No Known Drug Allergies [NO KNOWN DRUG ALLERGIES] Allergy (Mild, Verified 05/15/23 13:45) NONE HPI Dr. Hawk PT follow up decomp cirrhosis HPI Details 57-YEAR-OLD MALE seen in the past by benito dobson alcoholic cirrhosis but then referred up to Dr. Candace leone for management because of a complex presentation with ascites and pleural fluid who is return to my schedule because Dr. Maria is on vacation. In the interim he has undergone a very complex course of affairs including a recent hospitalization for pulmonary embolus worry was put on Eliquis. Apparently culture of his pleural fluid seem to point to ascites. Dr. Candace shields summary of the patient is as follows:This is a 56-year-old gentleman with past medical history of severe alcohol use disorder that has led to cirrhosis complicated by portal hypertension (portal hypertension gastropathy, esophageal varices, ascites, hepatic hydrothorax, hepatic encephalopathy) MELD- Na 19, Child St class C, main portal vein thrombosis currently not on anticoagulation, who presents for q4w follow-up. Apparently her last visit with him was 02/05/2023 and in the interim he had 2 hospitalizations 1 in February for question of a GI bleed and then 1 in March for the pulmonary emboli. He has a history of a for esophageal banding of the last EGD did not show severe varices. Dr. Vizcarra saw him in the hospital and did not feel that this represented an upper GI bleed in February and this was prior to the initiation of anticoagulant therapy. He will be due for colonoscopy in 2024. . Plan from Dr. Candace shields note is as follows : Plan -Severe alcohol use disorder -Decompensated Cirrhosis (bleeding esoph ageal varices 11/2022, ascites, hepatic hydrothorax, hepatic encephalopathy MELD-Na 17 (11/2022 labs) Child [address] Class C Discussed with the pt to strongly consider follow up with addiction medicine to help with etOH use disorder treatment. Reminded that ongoing etOH use is leading to progression of liver disease. Needs to demonstrate at least 3-6 months of sobriety for transplant evaluation. He was also advised that while a referral has been placed for ? TIPS candidacy by Dr Santo (who saw the pt in the hospital), hx of hepatic encephalopathy may be a limiting factor. - Alcohol use disorder: Most recent nathan briceno 2 DAYS ago - Had a PETH of 810 in November 2022. Again counseled extensively on etOH cessation. However pt feels that he is not quite there yet. Declines follow up with Addiciton medicine at this time. - Ascites and Peripheral Edema: Has mode rate NON-tense ascites on exam today. Encouraged compliance with diuertics. INCREASE Lasix to 160mg and aldactone to 400mg. Encouraged compliance with the meds. Repeat BMP and urine lytes in 10 days. Echocardiogram with bubble study ordered. - Hepatic encephalopathy: No HE on exam today. Cont lactulose titrated to 2-3 soft bowel movements. Cont Rifaximin. - Secondary prophylaxis for gastroesopha geal varices: He is status post endoscopic variceal band ligation (EVBL) for BLEEDING large varices most recently in 01/16/23 with complete obliteration noted on 02/02/23 EGD. - Repeat EGD to be booked in 3-6 months - Carvedilol DECREASED to 6.25mg BID due to BP and uptitration of diuretics today. - HCC screening: Most recent ultrasound abdomen was in November 2022. Cirrhotic changes with patent PV. Next US due 05/2023. Reminder placed. - Vaccinations: Completed twinrix serie s September 2022. Encouraged to take flu shot when available for this season and covid booster. - Nutrition: As aforementioned, encour ed low salt diet and 'good' proteins (BCAA) such as eggs, milk, telugu yogurt, fish, chicken etc; avoid long periods of fasting. - Risk of NSAIDs: NSAIDs should be compl etely avoided to prevent GIB and renal injury. Tylenol is okay as long as not exceeded by 2g/day. - Personal hx of high risk polyps: Due f or colonoscopy 2024. Follow up in 3 months Orders: Orders CA echo transthoracic complete Today J90 - Pleural effusion, not elsewhere classified Marcia Hawk MD Potassium Urine Random Today Z79.899 - Other termite exterminator (current) drug therapy Marcia Hawk MD Sodium Urine Random Today Z79.899 - Other termite exterminator (current) drug therapy Marcia Hawk MD Basic Metabolic Panel Today Z79.899 - Other termite exterminator (current) drug therapy Marcia Hawk MD Medications: Changed From carvedilol must administer with a meal/food 12.5 mg PO BID 90 days 180 tabs 2RF To carvedilol must administer with a meal/food 6.25 mg PO BID 90 days 180 tabs 2RF Marcia Hawk MD From spironolactone 300 mg (3 x 100 mg) PO DAILY 90 tabs 2RF To spironolactone 400 mg (4 x 100 mg) PO DAILY 90 tabs 2RF Marcia Hawk MD From furosemide 120 mg (3 x 40 mg) PO DAILY 90 tabs 3RF To furosemide 160 mg (4 x 40 mg) PO DAILY 90 tabs 3RF Marcia Hawk MD Discontinued insulin glargine 20 units (0.2 mL) subcut QAM 15 mL 2RF González Self [facility] sucralfate (Carafate) 10 mL PO QID 560 mL 0RF 2 weeks Marcia Hawk MD furosemide 120 mg (3 x 40 mg) PO DAILY 90 tabs 2RF 30 days Cassandra Crystal [facility] Patient Instructions: Please note the following changes to your medications: - INCREASE lasix to 160 mg once daily in the morning - INCREASE spironolactone to 400mg once daily in the morning - DECREASE carvedilol back to 6.25mg twi ce a day - You may DISCONTINUE carafate - You will be due for labs next week, tr y to get these done by 02/14. - Please weigh yourself daily - if you g ain 3 lbs in 2 days or 5 lbs in a week, please call our office LABS: Laboratory Tests 02/14/23 02/14/23 04/09/23 13:40 21:40 06:56 WBC Hgb Hct MCV MCH Plt Count Sodium Potassium Estimated GFR Calcium Magnesium 1.9 Total Bilirubin AST ALT Alkaline Phosphata se Ur Random Sodium 100.0 Ur Random Potassiu m 47.2 04/10/23 04/10/23 04:53 04:53 WBC 4.9 Hgb 9.3 L Hct 29.3 L MCV 84.7 MCH 26.9 L Plt Count 160 Sodium 137 Potassium 3.7 Estimated GFR > 60 Calcium 8.7 Magnesium Total Bilirubin 2.9 H AST 40 H ALT 18 Alkaline Phosphata se 224 H Ur Random Sodium Ur Random Potassiu m CARDIAC ECHOCARDIOGRAM 03/13/23? Conclusions: - The left ventricular systolic function is normal. The calculated ejection fraction is 62% by biplane method. - No obvious valvular pathology seen on this study. Findings Procedure Information Contrast agent, definity, is being given per protocol without apparent complications. Left Ventricle Normal left ventricular cavity size. There is normal left ventricular wall thickness. The left ventricular systolic function is normal. The calculated ejection fraction is 62% by biplane method. There is no evidence of regional wall motion abnormalities. Evidence suggests grade I (mild) diastolic dysfunction. Right Ventricle Normal right ventricular cavity size and systolic function. Atria Both atria are normal in size. Aortic Valve There is a normal trileaflet aortic valve. There is mild calcification of the aortic valve. There is no aortic valve stenosis. There is no aortic valve regurgitation. Mitral Valve The mitral valve appears normal. There is no mitral valve regurgitation. There is no mitral valve stenosis. Pulmonic Valve The pulmonic valve is likely normal. Tricuspid Valve There is trace tricuspid valve regurgitation. There is no evidence of pulmonary hypertension. Great Vessels The asc aorta is normal in size. Venous The inferior vena cava is normal in size and collapses greater than 50% with inspiration. Pericardium/Pleural Prominent epicardial adipose tissue noted. There is a trivial pericardial effusion. There is a large left sided pleural effusion. He has a pericardial effusion and is followed by Dr. Bolivar in our Cardiology Department CORRESPONDENCE On 05/07/23 @ 19:48 Akash Barboza (Regarding Self / Same As Patient) Wrote To Marcia Hawk Hi, i'm am sorry, i'm not gonna be able to make it tomorrow at 9, My last Aunt i have is failing fast. She lives in [facility]. I have to get out there, She was my mom's best friend, and we are very close since my mom passed. Please send anything you need me to do and please try to rescedule me next week if possible. In the meantime, if you need to do anything before my next appt.., feel free to send me an email.. I'm am sorry and thank you.. Riley On 12/23/21 @ 14:47 Eligio Craft Wrote To Frances Pierre They usually don't require labs showing negative alcohol levels, documentation in notes is usually sufficient. They also like to see patient in some sort of rehabilitation program like AA or counseling. On 12/23/21 @ 07:49 Frances Pierre Wrote To Eligio Craft Zia Vleez, if I can get this pt to stop drinking, what would a liver transplant center require as proof that he has stopped? Urine and blood tests? I thought you may have done this with Dr. Silva in the past. Let me know if you have any insight... TODAY'S VISIT THERE IS A QUESTION OF NEW DIAGNOSIS OF DIABETES. This is along with hepatic portal vein thrombosis and pulmonary emboli. .He continues to drink ETOH but says he has cut way, way back and drinks 2 x a week 2-3 beers per his report. Continued variable dyspnea, Sees Dr. Alvarez for this. Needs repeat EGD in Jul, adding colonoscopy re: anemia to investigate adn has hx of multiple polyposis. He feel on stairs a week ago try ing to grab for a bad of 2L soda when the bag broke, pain in righ shoulder and bruise on left thoracic to flank. No head injury. Review labs, AST about the same as baseline. Ordering US for survey. He is on lactulose for hyperammonia, no diarrhea. Was referred to [facility] for TIPS but he decided against it I read all fo the bad s/e. ROV [address] Hawk. [facility] Medical History Pulmonary embolism, bilateral Cirrhosis of liver Diabetes Alcohol use disorder, moderate, dependence Recurrent left pleural effusion Pleural effusion Pericardial effusion Tachycardia Dyspnea Hydropneumothorax Pleural effusion on right Decompensation of cirrhosis of liver Cirrhosis GERD (gastroesophageal reflux disease) Esophageal varices Chronic abdominal pain Gout Peripheral neuropathy Alcoholism Elevated LFTs Surgical History Hx of esophagogastroduodenoscopy History of thoracentesis H/O colonoscopy H/O cervical spine surgery H/O hemicolectomy Family History Mother Cancer Sister Cancer Social History Household Members: Other Household Members Other:: Roomate Housing: Apartment Do you presently have visiting nurse or other home services: No Alcohol intake: current Alcohol intake frequency: holidays/special occasions only Alcohol type: hard liquor Patient Tobacco Use Status: Former Tobacco user Quit Date: 1 mth ago Tobacco use type: Cigarette Years Smoked: 30 e-Cigarette/Vaping Use: Currently Using Second Hand Smoke Exposure: No Substance Use Type: Marijuana Substance Use Frequency: Occasionally Are you DNR?: No Advance Directives: No Advance Directives Information Provided: Yes Advance Directives Date on File: 11/27/22 Nutrition Risks: No Nutritional Risk service: No Current occupational status: unemployed Review of Systems Const Denies fatigue, Denies fever(s), Denies night sweats, Denies poor appetite and Denies weight loss Eyes Details: glasses ENT Reports Normal hearing present, Denies dental pain, Denies dysphagia, Denies hearing loss, Denies mouth pain, Denies odynophagia, Denies throat swelling, Denies tongue swelling and Reports other (Dentition adequate) Card Reports no additional complaints and Reports dyspnea on exertion Resp Reports dyspnea on exertion GI Denies abdominal pain, Denies melena, Denies bloating, Denies hematochezia, Denies constipation, Denies GI cramping, Denies dysphagia, Denies excessive flatus, Denies early satiety, Denies heartburn, Denies diarrhea, Denies nausea, Denies odynophagia, Denies vomiting and Denies hematemesis Skin/Breast Denies pruritus, Denies lesions, Denies rash, Denies jaundice and Reports other (bruising thigh ? fall) Neuro Reports Normal hearing present and Denies Abnormal speech present Endo Denies fatigue Aller/Immun Denies throat swelling and Denies tongue swelling Physical Exam Vital Signs: BMI result Body Mass Index 28.0 Const General: cooperative, no acute distress, well developed and well groomed Nutritional Appearance: average body habitus and well nourished Orientation/consciousness: oriented to person, oriented to place and oriented to time Limitations: No language barrier HEENT Head: Yes normocephalic and Yes atraumatic Eyes General: appearance normal, both eyes and all related structures Pupils: Equal, round and reactive pupils present Neck Neck: Yes normal visual inspection and Yes no lymphadenopathy Thyroid: Thyroid normal Resp Effort & Inspection: normal respiratory effort and able to speak in complete sentences Auscultation: clear to auscultation bilaterally Cardio Rate: regular rate Rhythm: regular rhythm Heart sounds: Normal, physiologic split S2 sound present Peripheral pulses: radial pulses present and posterior tibial pulses present GI Inspection: No distended and No Abdominal panniculus present Palpation (GI): Soft to palpation, nontender, no guarding, not rigid and No hepatosplenomegaly present Percussion: Yes normal to percussion Auscultation: normal bowel sounds Rectal Exam - Male: Yes deferred Skin General skin exam: turgor normal, skin not dry, ecchymosis, no jaundice, No spider nevi and no striae Rashes: no rashes Nails: normal Neuro General: oriented to person, oriented to place and oriented to time Cranial nerves: Yes Equal, round and reactive pupils present and Yes Normal hearing present Speech: No Abnormal speech present Extrem General: Yes normal to inspection, No clubbing, No cyanosis and No edema Psych Appearance: grossly normal and well kempt Mental Status: mental status grossly normal Speech and movement: Normal speech and movement present Affect: normal affect Attitude: cooperative Thought process: Normal thought process present and not confabulating Thought content: Normal thought content present Insight: Limited insight present (Psych) and Poor insight present (Psych) Judgement: Limited judgement present (Psych) and Poor judgement present (Psych) Results Reviewed Results Reviewed: Laboratory Tests 02/14/23 02/14/23 04/09/23 13:40 21:40 06:56 WBC Hgb Hct MCV MCH Plt Count Sodium Potassium Estimated GFR Calcium Magnesium 1.9 Total Bilirubin AST ALT Alkaline Phosphatase Ur Random Sodium 100.0 Ur Random Potassium 47.2 04/10/23 04/10/23 04:53 04:53 WBC 4.9 Hgb 9.3 L Hct 29.3 L MCV 84.7 MCH 26.9 L Plt Count 160 Sodium 137 Potassium 3.7 Estimated GFR > 60 Calcium 8.7 Magnesium Total Bilirubin 2.9 H AST 40 H ALT 18 Alkaline Phosphatase 224 H Ur Random Sodium Ur Random Potassium CARDIAC ECHOCARDIOGRAM 03/13/23? Conclusions: - The left ventricular systolic function is normal. The calculated ejection fraction is 62% by biplane method. - No obvious valvular pathology seen on this study. Findings Procedure Information Contrast agent, definity, is being given per protocol without apparent complications. Left Ventricle Normal left ventricular cavity size. There is normal left ventricular wall thickness. The left ventricular systolic function is normal. The calculated ejection fraction is 62% by biplane method. There is no evidence of regional wall motion abnormalities. Evidence suggests grade I (mild) diastolic dysfunction. Right Ventricle Normal right ventricular cavity size and systolic function. Atria Both atria are normal in size. Aortic Valve There is a normal trileaflet aortic valve. There is mild calcification of the aortic valve. There is no aortic valve stenosis. There is no aortic valve regurgitation. Mitral Valve The mitral valve appears normal. There is no mitral valve regurgitation. There is no mitral valve stenosis. Pulmonic Valve The pulmonic valve is likely normal. Tricuspid Valve There is trace tricuspid valve regurgitation. There is no evidence of pulmonary hypertension. Great Vessels The asc aorta is normal in size. Venous The inferior vena cava is normal in size and collapses greater than 50% with inspiration. Pericardium/Pleural Prominent epicardial adipose tissue noted. There is a trivial pericardial effusion. There is a large left sided pleural effusion. He has a pericardial effusion and is followed by Dr. Bolviar in our Car diology Department Assessment & Plan Assessment & Plan (1) Alcoholic cirrhosis of liver: Code(s): K70.30 - Alcoholic cirrhosis of liver without ascites Qualifiers: Ascites presence: with ascites Qualified Code(s): K70.31 - Alcoholic cirrhosis of liver with ascites (2) Hydrothorax: Code(s): J94.8 - Other specified pleural conditions (3) Hepatopulmonary syndrome: Comment: Garlic (containing allium sativum) ? Garlic (containing allium sativum) is thought to decrease nitric oxide synthesis, thereby acting as a potential therapy for HPS. As an example, one prospective randomized, placebo-controlled trial evaluated the effects of oral garlic supplementation (1 to 2 g/m2/day) in 41 patients with HPS [64]. After nine months, compared with placebo, garlic supplementation resulted in a three-fold increase in baseline arterial oxygen levels and a decrease in alveolar-arterial oxygen gradient. Reversal of HPS was observed in 14 of 21 patients treated with garlic compared with only 1 of 20 patients in the placebo group (67 versus 5 percent). Mortality was also lower among patients receiving garlic (10 versus 35 percent). Code(s): K76.81 - Hepatopulmonary syndrome (4) Hyperammonemia: Code(s): E72.20 - Disorder of urea cycle metabolism, unspecified (5) Pericardial effusion: Code(s): I31.39 - Other pericardial effusion (noninflammatory) (6) Acute pancreatitis: Code(s): K85.90 - Acute pancreatitis without necrosis or infection, unspecified (7) Newly diagnosed diabetes: Code(s): E11.9 - Type 2 diabetes mellitus without complications (8) Varices of esophagus determined by endoscopy: Code(s): I85.00 - Esophageal varices without bleeding (9) Pleural effusion: Code(s): J90 - Pleural effusion, not elsewhere classified (10) Irritable bowel syndrome with diarrhea: Code(s): K58.0 - Irritable bowel syndrome with diarrhea (11) Multiple adenomatous polyps: Code(s): D36.9 - Benign neoplasm, unspecified site (12) Pulmonary embolism, bilateral: Code(s): I26.99 - Other pulmonary embolism without acute cor pulmonale Plan THERE IS A QUESTION OF NEW DIAGNOSIS OF DIABETES. This is along with hepatic portal vein thrombosis and pulmonary emboli. .He continues to drink ETOH but says he has cut way, way back and drinks 2 x a week 2-3 beers per his report. Continued variable dyspnea, Sees Dr. Alvarez for this. Needs repeat EGD in Jul, adding colonoscopy re: anemia to investigate adn has hx of multiple polyposis. He feel on stairs a week ago try ing to grab for a bad of 2L soda when the bag broke, pain in righ shoulder and bruise on left thoracic to flank. No head injury. Review labs, AST about the same as baseline. Ordering US for survey. He is on lactulose for hyperammonia, no diarrhea. Was referred to [facility] for TIPS but he decided against it I read all fo the bad s/e. ROV [address] Hawk. Orders: Orders Ammonia 05/15/23 D36.9 - Benign neoplasm, unspecified site Gamma Glutamyl Transpeptidase 05/15/23 D36.9 - Benign neoplasm, unspecified site Ferritin 05/15/23 D36.9 - Benign neoplasm, unspecified site Phosphatidylethanol, Blood 05/15/23 D36.9 - Benign neoplasm, unspecified site, I85.00 - Esophageal varices without bleeding US abdomen comp w elastography 05/15/23 K70.30 - Alcoholic cirrhosis of liver without ascites EGD/[place] Combo - GI Use Only 05/15/23 D36.9 - Benign neoplasm, unspecified site Medications: New peg 3350-electrolytes 236-22.74-6.74 -5.86 gram (Golytely) until fecal effluent is clear; do not exceed a total volume of 2,000 mL 240 mL PO Q10M 4,000 mL 0RF 1 day Z12.11 - Encounter for screening for malignant neoplasm of colon Coding Level of Care Code Est Pt Level 4 (31433) Diagnoses Alcoholic cirrhosis of liver with ascites K70.31 Ascites presence: with ascites Hydrothorax J94.8 Hepatopulmonary syndrome K76.81 Hyperammonemia E72.20 Pericardial effusion I31.39 Acute pancreatitis K85.90 Newly diagnosed diabetes E11.9 Varices of esophagus determined by endoscopy I85.00 Pleural effusion J90 Irritable bowel syndrome with diarrhea K58.0 Multiple adenomatous polyps D36.9 Pulmonary embolism, bilateral I26.99
[2023-05-15 13:44] VITALS: BMI 28.0
== END 2023-05-15 14:32 | disposition home or self-care (01) ==
PROVIDERS: PCP Internal Medicine; Visit Provider Nurse Practitioner
DX: K70.31 Alcoholic cirrhosis of liver with ascites (principal); J94.8 Other specified pleural conditions; K76.81 Hepatopulmonary syndrome; E72.20 Disorder of urea cycle metabolism, unspecified; I31.39 Other pericardial effusion (noninflammatory); K85.90 Acute pancreatitis without necrosis or infection, unspecified; E11.9 Type 2 diabetes mellitus without complications; I85.00 Esophageal varices without bleeding; J90 Pleural effusion, not elsewhere classified; K58.0 Irritable bowel syndrome with diarrhea; D36.9 Benign neoplasm, unspecified site; I26.99 Other pulmonary embolism without acute cor pulmonale
CPT/HCPCS: 99214

== ENCOUNTER → 2023-05-15 13:35 | Outpatient (BNVA) | payer OTHER, SELFPAY | PROVIDERS: PCP Internal Medicine; Visit Provider Nurse Practitioner | DX: K70.31 Alcoholic cirrhosis of liver with ascites (principal); J94.8 Other specified pleural conditions; K76.81 Hepatopulmonary syndrome; K85.90 Acute pancreatitis without necrosis or infection, unspecified; K58.0 Irritable bowel syndrome with diarrhea; E72.20 Disorder of urea cycle metabolism, unspecified; I31.39 Other pericardial effusion (noninflammatory); E11.9 Type 2 diabetes mellitus without complications; I85.00 Esophageal varices without bleeding; J90 Pleural effusion, not elsewhere classified; D36.9 Benign neoplasm, unspecified site; I26.99 Other pulmonary embolism without acute cor pulmonale | CPT/HCPCS: 99212 ==

== ENCOUNTER 2023-05-29 06:03 | Outpatient (REF) | payer OTHER, SELFPAY ==
--- NOTE | ~2023-05-29 | XR_ITS ---
EXAMINATION: XR CHEST CLINICAL INFORMATION: Pleural effusion. COMPARISON: 04/17/2023. TECHNIQUE: 2 views of the chest were obtained. FINDINGS: The cardiomediastinal silhouette is stable. There is a layering left mid to lower lung field opacity essentially unchanged compared to previous. The right lung is clear. The bony structures and soft tissues are unremarkable. XR/XR chest 2V IMPRESSION: Stable layering left mid to lower lung field opacity most consistent with a moderate left pleural effusion with likely associated atelectasis. No significant interval change.
[2023-05-29 06:55] LABS: Ammonia 50 umol/L (13-55)
[2023-05-29 07:04] LABS: Ferritin 122 ng/mL (20-250); Gamma Glutamyl Transpeptidase 1015 U/L (11-51)
[2023-06-05 08:27] LABS: Phosphatidylethanol 16:0-18:1 >400 (H)
[2023-06-05 08:28] LABS: Phosphatidylethanol 16:0-18:2 >400 (H)
== END 2023-05-29 06:04 | disposition home or self-care (01) ==
LOC: HO.XRAY 06:03
PROVIDERS: Absent Provider Hospitalist; PCP Internal Medicine; Visit Provider Nurse Practitioner
DX: D36.9 Benign neoplasm, unspecified site (principal); I85.00 Esophageal varices without bleeding; J90 Pleural effusion, not elsewhere classified; F19.11 Other psychoactive substance abuse, in remission
CPT/HCPCS: 36415; 71046; 80321; 82140; 82728; 82977

== ENCOUNTER 2023-07-02 09:01 | Day surgery (SDC) | payer OTHER, SELFPAY ==
[2023-07-02 09:56] VITALS: BMI 28.5
[2023-07-02 10:01] VITALS: BP 127/74; PULSE 77; RESP 18; TEMP 36.7; O2SAT 98
--- NOTE | 2023-07-02 10:12 | PC.NURSE ---
author contacted charlene vega to update him that patient is feeling much better since making appt. vs results and lung sounds shared as well. stated patient to go to IR dept. for preprocedure imaging r/t procedure.
[2023-07-02 11:05] VITALS: BP 128/86; PULSE 76; RESP 16; TEMP 37.1; O2SAT 96
[2023-07-02 11:20] VITALS: BP 135/86; PULSE 70; RESP 16; TEMP 36.9; O2SAT 97
== END 2023-07-02 11:23 | disposition home or self-care (01) ==
PROVIDERS: PCP Internal Medicine; Visit Provider Physician Assistant Surgical
DX: J90 Pleural effusion, not elsewhere classified (principal); Z79.01 Long term (current) use of anticoagulants; I26.99 Other pulmonary embolism without acute cor pulmonale; R06.02 Shortness of breath; F10.20 Alcohol dependence, uncomplicated; K70.31 Alcoholic cirrhosis of liver with ascites; I85.00 Esophageal varices without bleeding; E11.9 Type 2 diabetes mellitus without complications; G62.9 Polyneuropathy, unspecified; Z87.891 Personal history of nicotine dependence
CPT/HCPCS: 32555; 71045; 82947

== ENCOUNTER → 2023-07-02 10:17 | Outpatient (BNV) | payer OTHER, SELFPAY | PROVIDERS: PCP Internal Medicine; Visit Provider Radiology Diagnostic Radiology | DX: J90 Pleural effusion, not elsewhere classified (principal) | CPT/HCPCS: 32555 ==

== ENCOUNTER 2023-07-05 10:06 | Outpatient (REF) | payer OTHER, SELFPAY ==
--- NOTE | ~2023-07-05 | XR_ITS ---
EXAMINATION: XR CHEST CLINICAL INFORMATION: Chest pain COMPARISON: Chest radiograph from 07/02/2023 TECHNIQUE: 2 views of the chest were obtained. FINDINGS: Small left pleural effusion with subjacent atelectasis. No pneumothorax. Trachea is midline. Cardiac mediastinal silhouette is stable. Osseous structures are intact. Soft tissues are unremarkable. XR/XR chest 2V IMPRESSION: Small left pleural effusion with subjacent atelectasis.
--- NOTE | ~2023-07-05 | XR_ITS ---
EXAMINATION: XR ABDOMEN COMPLETE CLINICAL INDICATION: Nausea COMPARISON: CT abdomen/pelvis from 03/26/2012 and 06/09/2022 TECHNIQUE: 2 views of the abdomen. FINDINGS: Bowel gas pattern is normal. No dilated bowel loops. There appears to be a normal amount of fecal material within the colon or rectum. No fecal impaction within the rectum. No pneumoperitoneum. No radiographic evidence of renal stones. There are scattered peripheral vascular calcifications. Incidentally noted is an old geographic lucent lesion with sclerotic border of the intertrochanteric right femur. This was partially included in the [id number] on CT images from 03/26/2012 and had some fat attenuation suggestive of an intraosseous lipoma. There is osteophyte formation and subchondral cystic change of the mildly degenerated hips. XR/XR abdomen min 2V IMPRESSION: No acute radiographic abnormalities in the abdomen. No evidence of bowel obstruction.
== END 2023-07-05 10:07 | disposition home or self-care (01) ==
LOC: HO.XRAY 10:06
PROVIDERS: PCP Internal Medicine; Visit Provider Hospitalist
DX: R07.9 Chest pain, unspecified (principal); R11.0 Nausea
CPT/HCPCS: 71046; 74019

== ENCOUNTER 2023-07-17 08:26 | Outpatient (AMB) | payer OTHER, SELFPAY ==
[2023-07-17 08:36] VITALS: PULSE 92; O2SAT 94; BMI 28.5
--- NOTE | 2023-07-17 08:36 | MHC.OFFVIS ---
Intake Vital Signs 07/17/23 08:36 Height 6 ft 5 in Weight 240 lb BMI 28.5 Pulse 92 Pulse Source Pulse Oximeter Pulse Oximetry (%) 94 Oxygen Delivery Method Room Air Intake Visit Reasons: PE Care Assistant Required: No Allergies No Known Drug Allergies [NO KNOWN DRUG ALLERGIES] Allergy (Mild, Verified 07/17/23 08:37) NONE HPI HPI Comments History of Present Illness Details The patient is a 57 y/o man with a history of decompensated alcoholic cirrhosis with varices and right pleural effusion.? Was most recently discharged 11/03/2021 after hospitalization GI bleed.? Patient now complaining of several days of right-sided chest pain, sharp, worse with inspiration.? Associated with shortness of breath worse on exertion, improved with rest, progressively worsening.? Patient continues to drink alcohol, last drink was 2 days prior to presentation.? He has also noticed to be feeling shaky.? In ED CTA was negative for PE but did show moderate right-sided effusion. the patient did undergo thoracentesis demonstrating what appeared to be a transudative process, lymphocytic predominant. His lymphocyte count was elevated In the pleural fluid. The patient did feel better after the thoracentesis. He did not have any abdominal interventions. After the procedure the patient felt better and subsequently was discharged. we did review his imaging studies including his CT scan demonstrating moderate to large pleural effusion on the right side. Explained to him that this is consistent with hepatic hydrothorax. the patient does have a history of varices in addition to portal vein thrombosis. He does have a prescription for Aldactone and Lasix. We talked about the importance of taking the medication. He also needs to take additional diuretic if he is getting any weight. His kidney function is stable. We did talk about his meld score demonstrating of 3 month mortality of 20%. Patient understands that this is very serious. His only potential intervention will be to quit drinking and being referred to a transplant center. The patient did have misconceptions about liver transplants. We did re-educated about the benefits of liver transplant specially with his worsening liver failure. The patient understands that alcohol withdrawal can be very serious. Once he starts withdrawal he needs to seek medical care. the cough 02/14/2022 the patient is here for a pulmonary follow-up visit. Overall he is feeling better. He was hospitalized in he did undergo a thoracentesis. The patient did develop a complication of a hydropneumothorax. He did have a repeat CT scan of the chest after thoracentesis. It appeared that the pleura for the most part appear to be thin without any evidence of any lung entrapment. This was out the possibility of lung entrapment as a cause of the pneumothorax. The patient also appeared to have slight amount of fluid in the subdiaphragmatic area consistent with ascites. He was recently evaluated by GI and his diuretics were increased. He feels fairly well. Denies any worsening of his shortness of breath. He does not feel like he needs further thoracentesis or interventions at this time which is extremely positive. He was given good occasional GI and he understands what he needs to do to stay well as much as possible. He is scheduled to undergo repeat ultrasound of the abdomen and will also have him get an x-ray around that time. He did ask the question about the possible etiologies. I did explain that hepatic hydrothorax was the likely process in view of the other medical issues that he has and the ascites noted on the CT scan as well as a transudative fluid and the saag of 1.3. I did review his recent chest x-ray which demonstrated interval resolution of the pneumothorax which is great. The pleural effusion appears to be stable. Patient may also have an elevation of his right hemidiaphragm making the effusion appeared to be worse. 07/11/2022 the patient is here for pulmonary follow-up visit. Patient complains of significant shortness of breath. Moderate severity. She is thinking of possibly go back to the ER because the breathing is getting much worse. Even at rest. His breathing was like this last week where he was seen in the ER noted to have a recurrent left-sided pleural effusion. Again he underwent a thoracentesis draining 2 L. This time the fluid was clear. Prior to that he had the pleural effusion drain in appear to be serous sanguinous. Unclear if she had any injury to the area are from was traumatic. Yet the LDH was not significantly elevated and cytology negative. Now again he started to develop increasing shortness of breath even after just a few days after having the thoracentesis. Unfortunately in further questions he states that he ran out of his Lasix and also out doctor so he has been without it for the last several days. His urine output has decreased significantly. And I do believe that the fact that he has been without the medication has resulted in the significant rebound pleural effusion. I did call Radiology to see if we can arrange for him to get a left-sided thoracentesis done for therapeutic purposes to avoid a ER visit. They cannot do it today but they will see about tomorrow. I will send a prescription a prescription over for both his Lasix and Aldactone which she should start today. Although, initially was getting infusions on the right side and now on the left there maybe a component of self pleurodesis that may have occurred on his right side in view of the multiple thoracentesis. Still the pleural effusions are still likely related to hepatic hydrothorax with increasing abdominal girth and ascites. If there is still a question of uncertainty as far as the etiology for the pleural effusions then a thoracoscopy or video-assisted thoracoscopy may be warranted. He was already referred to thoracic surgery in the past. 09/20/2022 the patient is here for a pulmonary follow-up visit. The patient overall has been doing good from a respiratory status. The last time he underwent a thoracentesis back in 07/07/2021. It left a residual small effusion. The patient tolerated procedure well. He has not required any additional thoracentesis or paracentesis. He has continued to uses diuretic as prescribed. The additional diuretics have been effective in controlling his hepatic hydrothorax. He recently did undergo an ultrasound of the liver demonstrating the cirrhosis. Also demonstrating mild ascites and small pleural effusion. We did look at the fusion or cells. He also has a nonocclusive portal vein clot. This point it is only nonocclusive. He was referred to Hematology. The patient understands that he is about develops sudden significant lower extremity edema and ascites he has to go to the ER for evaluation. In the meantime, if the patient develops any worsening shortness of breath he is able to get a chest x-ray in that knee now in order to assess the need for thoracentesis. 12/27/2022 the patient is here for a pulmonary follow-up visit. Recently was admitted to the hospital with a upper GI bleed secondary to esophageal varices. The patient underwent endoscopy and currently doing better. The patient also has a complication of the hepatic hydrothorax. Has not required thoracentesis since he is doing better with diuresis. Now recommended he consider tips procedure. Explained to the patient if he does undergo tips the risk for the recurrent pleural effusions will decrease. the patient is working on his alcohol cessation. Currently drinking nonalcoholic beer which appears to be effective for him. Currently patient is doing well he will call he has any worsening symptoms otherwise will follow-up in 3-4 months. 04/26/2023 the patient is here for a pulmonary follow-up visit. The patient had been in the hospital he was diagnosed with a pulmonary embolism. In addition to that he had a left-sided pleural effusion. It was drained. It was a little bit more serosanguineous. Afterwards he was having some shortness of breath we did repeat the chest x-ray demonstrating interval worsening of the pleural effusion and we did request for thoracentesis. He has not have had the thoracentesis as of yet. However, he is feeling better. On examination I do appreciate some breath sounds at the left base which is reassuring. Therefore will hold off on the thoracentesis specially since he is on the blood thinners and will go ahead and repeat the x-ray in 2-3 weeks. If he has any worsening symptoms he can always get the x-ray sooner. He knows that for any procedure he would have to stop the Eliquis for a couple days. He also understands that with blood clots he needs to be on the blood thinners for at least 3 months. If not longer. The patient has had a history of blood clots I think in the portal vein system. No evidence of any lower extremity DVTs which is reassuring. He is tolerating the Eliquis without any evidence of any bleeding. Unfortunately the still drinking alcohol. We did talk about making sure that he quits drinking in order to consider the possibility of a lung transplant in the future. 07/17/2023 the patient is here for pulmonary follow-up visit. The patient since we spoke had a chest x-ray demonstrating moderate sided pleural effusion. Therefore we sent him for thoracentesis. He had to stop the Eliquis however. Therefore took a little longer. By the time that he was scheduled for the thoracentesis. By the time that he got a thoracentesis done he was already feeling better she was not sure if he should had a done. After the thoracentesis and drained about a L and a have the patient started having left-sided chest discomfort. He was then shoveling and snow blowing so had a hard time knowing for sure if the left-sided discomfort with musculoskeletal or if it was related to his procedure. Therefore we had and come back for chest x-ray. No evidence of any pneumothorax although it appears that the pleural effusion was increasing after the thoracentesis already occurred. Explained to the patient likely that he has a component of trapped lung on that side and therefore the negative pressure causes tugging of the lung causing pain and subsequently once the fluid comes back the symptoms do resolve. He does have the crease and diminished breath sounds absent breath sounds on the left base suggesting the fluid is already back. The patient also has been taking Eliquis and his hemoglobin has been dropping. He is scheduled for an endoscopy and also colonoscopy. In part is due to the blood thinners. This is because he had blood clots that were noted back in March 2023. Will go ahead and repeat a CTA in the coming months to make sure that the blood clots or gone in case he needs to stop the anticoagulation. [facility] Medical History (Updated 07/17/23 @ 12:31 by Nawaf Alvarez MD) Pulmonary embolism, bilateral Pleuritic chest pain Cirrhosis of liver Diabetes Alcohol use disorder, moderate, dependence Recurrent left pleural effusion Pleural effusion Pericardial effusion Tachycardia Dyspnea Hydropneumothorax Pleural effusion on right Decompensation of cirrhosis of liver Cirrhosis GERD (gastroesophageal reflux disease) Esophageal varices Chronic abdominal pain Gout Peripheral neuropathy Alcoholism Elevated LFTs Surgical History Hx of esophagogastroduodenoscopy History of thoracentesis H/O colonoscopy H/O cervical spine surgery H/O hemicolectomy Family History Mother Cancer Sister Cancer Social History Household Members: Other Household Members Other:: Roomate Housing: Apartment Do you presently have visiting nurse or other home services: No Alcohol intake: current Alcohol intake frequency: holidays/special occasions only Alcohol type: hard liquor Patient Tobacco Use Status: Former Tobacco user Quit Date: 1 mth ago Tobacco use type: Cigarette Years Smoked: 30 e-Cigarette/Vaping Use: Currently Using Second Hand Smoke Exposure: No Substance Use Type: Marijuana Advance Directives Date on File: 11/27/22 service: No Current occupational status: unemployed Review of Systems Const Denies fatigue, Denies fever(s), Denies night sweats, Reports poor appetite and Reports weight loss Eyes Denies change in vision ENT Reports Normal hearing present Card Reports no additional complaints, Reports chest pain and Reports dyspnea on exertion Resp Denies chest congestion, Denies cough, Denies hemoptysis, Denies pain on inspiration, Denies pain with cough and Reports dyspnea on exertion GI Reports abdominal pain Musc Reports arthralgias Skin/Breast Denies pruritus Neuro Reports Normal hearing present and Denies Abnormal speech present Endo Denies fatigue Physical Exam Vital Signs: Last Vital Signs Pulse 92 07/17/23 08:36 Pulse Ox 94 07/17/23 08:36 Oxygen Delivery Method Room Air 07/17/23 08:36 BMI result Body Mass Index 28.5 Const General: alert Orientation/consciousness: patient oriented x3 HEENT Head: Yes normal to inspection Eyes Conjunctivae: conjunctival abnormal bilateral conjunctival icterus Neck Neck: Yes supple Chest Chest palpation & inspection: normal inspection of the chest Resp Effort & Inspection: normal respiratory effort Auscultation: no rales, breath sounds absent on th left (base) and diminished lung sounds Percussion: no dullness to percussion Cardio Rate: regular rate Rhythm: regular rhythm Heart sounds: S1 normal heart sound present and S2 normal heart sound present GI Inspection: Yes distended Skin General skin exam: spider nevi Neuro General: patient oriented x3 Cranial nerves: Yes Normal hearing present Speech: No Abnormal speech present Extrem General: Yes no clubbing, cyanosis or edema Assessment & Plan Assessment & Plan (1) Pleural effusion: Code(s): J90 - Pleural effusion, not elsewhere classified (2) Pulmonary embolism, bilateral: Code(s): I26.99 - Other pulmonary embolism without acute cor pulmonale (3) Alcoholic cirrhosis of liver: Code(s): K70.30 - Alcoholic cirrhosis of liver without ascites Qualifiers: Ascites presence: with ascites Qualified Code(s): K70.31 - Alcoholic cirrhosis of liver with ascites (4) Pleuritic chest pain: Code(s): R07.81 - Pleurodynia Plan continue Eliquis for at least 2-3 months, monitoring Hb Ok to proceed to anesthesia and EGD/colonoscopy CTA to reassess PE/CP in 6-8 weeks diuresis as tolerated Needs help with ETOH dependednce ?AA F/U 3 months Orders: Orders Basic Metabolic Panel 8 Weeks I26.99 - Other pulmonary embolism without acute cor pulmonale, J90 - Pleural effusion, not elsewhere classified, R07.81 - Pleurodynia CT angio chest PE protocol 8 Weeks I26.99 - Other pulmonary embolism without acute cor pulmonale, J90 - Pleural effusion, not elsewhere classified, R07.81 - Pleurodynia Coding Level of Care Code Est Pt Level 4 (64414) Diagnoses Pleural effusion J90 Pulmonary embolism, bilateral I26.99 Alcoholic cirrhosis of liver with ascites K70.31 Ascites presence: with ascites Pleuritic chest pain R07.81 Time Spent (min) 17
== END 2023-07-17 08:52 | disposition home or self-care (01) ==
PROVIDERS: PCP Internal Medicine; Visit Provider Hospitalist
DX: J90 Pleural effusion, not elsewhere classified (principal); I26.99 Other pulmonary embolism without acute cor pulmonale; K70.31 Alcoholic cirrhosis of liver with ascites; R07.81 Pleurodynia
CPT/HCPCS: 99214

== ENCOUNTER → 2023-07-17 08:26 | Outpatient (BNVA) | payer OTHER, SELFPAY | PROVIDERS: PCP Internal Medicine; Visit Provider Hospitalist | DX: J90 Pleural effusion, not elsewhere classified (principal); I26.99 Other pulmonary embolism without acute cor pulmonale; K70.31 Alcoholic cirrhosis of liver with ascites; R07.81 Pleurodynia; Z79.01 Long term (current) use of anticoagulants | CPT/HCPCS: 99212 ==

== ENCOUNTER 2023-07-20 09:18 | Outpatient (REF) | payer OTHER, SELFPAY ==
--- NOTE | ~2023-07-20 | US_ITS ---
EXAMINATION: US COMPLETE ABDOMEN WITH LIVER ELASTOGRAPHY COMPLETE DUPLEX ULTRASOUND OF THE ABDOMEN CLINICAL INFORMATION: Alcoholic cirrhosis with ascites; question portal vein thrombosis. COMPARISON: Abdominal ultrasound dated 03/04/2023. TECHNIQUE: Real-time imaging of the abdominal viscera. Noninvasive ultrasound liver fibrosis assessment is performed using Ed ElastPQ point quantification shear wave elastography (2D-SWE) with a C5-2 MHz transducer. Multiple elastography samples are obtained. Abdominal duplex Doppler ultrasound and pulse wave Doppler with spectral analysis were also performed. FINDINGS: PANCREAS: Normal. The visualized pancreatic head and body are normal in appearance. The remainder of the pancreas is obscured from visualization by the overlying bowel gas. LIVER: The liver is enlarged, with a lobulated contour and increased echogenicity. No focal lesion or intrahepatic biliary duct dilatation. The right lobe measures 23.0 cm in length. The left lobe measures 12.6 cm in length. Shear wave liver elastography median stiffness is 1.67 m/s (reference: normal median stiffness is 1.3 m/s or less). IQR/median stiffness to assess sampling precision is 0.31 (reference: good quality data set is IQR/median stiffness of 0.15 or less). ABDOMINAL AORTA: The proximal, middle, and distal aortic segments are normal in caliber. INFERIOR VENA CAVA: Visualized portions are normal. VISCERAL VASCULAR: The main, right, and left portal veins demonstrate abnormal hepatofugal venous waveforms. The main portal vein shows diminished color flow, suggesting partial thrombosis. There are perihepatic varices. The right, middle, and left hepatic veins demonstrates normal hepatofugal venous waveforms. The splenic vein demonstrates normal direction of flow. No evidence for venous thrombosis. The main, right and left left hepatic arteries demonstrates normal arterial waveforms. GALLBLADDER: Echogenic, nonshadowing gallbladder polyps are seen measuring 1.0 cm, 3 mm and 4 mm. There is gallbladder wall thickening to 8 mm. The gallbladder is physiologically distended without evidence of stones, sludge or pericholecystic fluid. COMMON BILE DUCT: Normal in caliber measuring 0.4 cm in diameter. RIGHT KIDNEY: At the interpolar aspect, a 1.4 cm mildly complex cyst with posterior wall calcification is seen, consistent with the prior CT findings of 10/27/2022 (4:349) and 06/02/2022 (2:43). This shows a likely benign Bosniak 2 appearance, and it requires no imaging follow-up. No hydronephrosis. No renal calculi or focal parenchymal lesions. The kidney measures 12.2 cm in maximum dimension. LEFT KIDNEY: Normal. No hydronephrosis. No renal calculi or focal parenchymal lesions. The kidney measures 14.2 cm in maximum dimension. SPLEEN: No focal finding. The spleen measures 16.7 cm in maximum dimension. FREE FLUID: There is moderate ascites. US/US abdomen comp w elastography IMPRESSION: 1. There is generalized increase in hepatic echotexture and surface lobularity, consistent with the provided history of cirrhosis. No focal hepatic mass or intrahepatic biliary dilatation is seen. 2. There is hepatosplenomegaly. 3. Liver elastography: Although measurements are suggestive of compensated advanced chronic liver disease, there is statistical variability of the sampling which decreases accuracy. 4. There is hepatofugal portal venous flow, and partial thrombosis is suspected of the main portal vein. There are perihepatic varices. The findings are consistent with portal venous hypertension. 5. There are multiple gallbladder cholesterol polyps again seen, likely cholesterol polyps. This is increased from earlier ultrasound examinations, with the largest polyp presently seen measuring 10 mm versus the largest polyp previously noted measuring 8 mm (11/30/2022). As well, there is chronic gallbladder wall thickening to 8 mm, which is likely contributed to by generalized ascites. Consider General Surgery evaluation and management. Further ultrasound follow-up may be indicated. 6. There is moderate ascites. REFERENCE: Society of Radiologists in Ultrasound Liver Stiffness Thresholds (2020): LIVER STIFFNESS THRESHOLDS: *Liver Stiffness equal or less than 1.3 m/s: High probability of being normal. *Liver Stiffness less than 1.7 m/s: In the absence of other known clinical signs, rules out compensated advanced chronic liver disease. *Liver Stiffness 1.7-2.1 m/s: Suggestive of compensated advanced chronic liver disease but need further test for confirmation. *Liver Stiffness over 2.1 m/s: Rules in compensated advanced chronic liver disease. *Liver Stiffness over 2.4 m/s: Suggestive of clinically significant portal hypertension. QUALITY OF DATA SET: *IQR/Median value equal or less than 0.15 implies a quality data set. *IQR/Median value over 0.15 implies a poor quality data set. SIGNIFICANT CHANGE FROM PRIOR EXAM: Significant change if liver stiffness measurement is 10% or greater from prior exam. OTHER CONSIDERATIONS: The stage of liver fibrosis may be overestimated in the setting of acute hepatitis, liver inflammation, elevated liver function tests, hepatic vascular congestion, obstructive cholestasis, non-fasting state, and infiltrative diseases such as amyloidosis and lymphoma. In some patients with NAFLD, the liver stiffness thresholds for compensated advanced chronic liver disease may be lower. In causes other than viral hepatitis and NAFLD, liver stiffness thresholds are not well established.
== END 2023-07-20 09:19 | disposition home or self-care (01) ==
LOC: HO.US 09:18
PROVIDERS: PCP Internal Medicine; Visit Provider Nurse Practitioner
DX: K70.30 Alcoholic cirrhosis of liver without ascites (principal)
CPT/HCPCS: 76700; 76981; 93975

== ENCOUNTER 2023-07-26 06:15 | Day surgery (SDC) | payer OTHER, SELFPAY ==
[2023-07-24 09:41] VITALS: BMI 28.5
[2023-07-24 09:58] VITALS: BMI 28.5
[2023-07-26 06:56] VITALS: BP 137/86; PULSE 84; RESP 16; TEMP 36.6; O2SAT 98
[2023-07-26] MEDS: Lactated Ringers 1,000 ML 80 ML IVCONT (07:00)
[2023-07-26 07:07] LABS: Glucose, Whole Blood 92 mg/dL (60-115)
--- NOTE | 2023-07-26 07:48 | HO.ANESPROP2 ---
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) Acute pancreatitis (Acute) Blood D-dimer assay positive (Acute) Dyspnea (Acute) Pericardial effusion (Acute) Alcohol use disorder, moderate, in early remission (Acute) Hyperammonemia (Acute) Hepatopulmonary syndrome (Acute) Bronchopneumonia (Acute) Hydrothorax (Acute) Alcoholic cirrhosis of liver (Acute) Portal vein thrombosis (Acute) Alcohol withdrawal (Acute) Elevated liver function tests (Acute) Irritable bowel syndrome with diarrhea (Acute) Pleural effusion (Acute) Acute alcoholic pancreatitis (Acute) Neuropathic pain (Acute) Multiple adenomatous polyps (Acute) Degenerative disc disease, cervical (Acute) Chronic low back pain (Acute) Spinal stenosis (Acute) Pulmonary embolism, bilateral (Acute) Pleuritic chest pain (Acute) Recurrent left pleural effusion (Acute) Pleural effusion (Acute) Pericardial effusion (Acute) Tachycardia (Acute) Dyspnea (Acute) Past Medical History Medical History Pleuritic chest pain Pulmonary embolism, bilateral Cirrhosis of liver Diabetes Alcohol use disorder, moderate, dependence Recurrent left pleural effusion Pleural effusion Pericardial effusion Tachycardia Dyspnea Hydropneumothorax Pleural effusion on right Decompensation of cirrhosis of liver Cirrhosis GERD (gastroesophageal reflux disease) Esophageal varices Chronic abdominal pain Gout Peripheral neuropathy Alcoholism Elevated LFTs Functional capacity: independent ambulation Family History Family History Mother Cancer Sister Cancer Family history of problems with anesthesia: No Surgical History Surgical History History of abdominal paracentesis Hx of esophagogastroduodenoscopy History of thoracentesis H/O colonoscopy H/O cervical spine surgery H/O hemicolectomy History of Problems with Anesthesia: No Social History Social History Household Members: Other Household Members Other:: roommate Housing: Apartment Are you a primary customer care coordinator to a significant other at home: No Do you presently have visiting nurse or other home services: No Alcohol intake: current Alcohol intake frequency: former alcohol drinker Alcohol type: hard liquor Patient Tobacco Use Status: Former Tobacco user Quit Date: 1 mth ago Tobacco use type: Cigarette Years Smoked: 30 e-Cigarette/Vaping Use: Currently Using Second Hand Smoke Exposure: No Use of substances other than those prescribed or required for medical reasons: Yes Substance Use Type: Marijuana Are you DNR?: No Advance Directives: No Advance Directives Information Provided: Yes Advance Directives on File: Yes Advance Directives Date on File: 11/27/22 Recently lost weight without trying: No service: No Current occupational status: unemployed Meds Allergies Allergy/AdvReac Type Severity Reaction Status Date / Time No Known Drug Allergies Allergy Mild NONE Verified 07/26/23 06:43 [NO KNOWN DRUG ALLERGIES] Active Medications: Current Medications Lactated Ringer's (Lr) 1,000 mls @ 80 mls/hr IVCONT .[id number] RYAN Last Admin: 07/26/23 07:00 Dose: 80 mls/hr Home Medications Medication Instructions Recorded Confirmed Last Taken Type bupropion HCl 300 mg 24 hr tablet, 300 mg PO DAILY 06/10/21 07/24/23 04/08/23 History extended release folic acid 1 mg tablet 1 mg PO DAILY 06/10/21 07/24/23 04/08/23 History thiamine HCl (vitamin B1) 100 mg 100 mg PO DAILY 06/10/21 07/24/23 04/08/23 History tablet albuterol sulfate 90 mcg/actuation 2 puff inhalation Q6H PRN 01/26/22 07/24/23 04/09/23 History aerosol inhaler (ProAir HFA) Shortness Of Breath hydroxyzine pamoate 25 mg capsule 25 - 50 mg PO DAILY PRN itching 01/26/22 07/24/23 04/08/23 History lorazepam 0.5 mg tablet 0.5 mg PO DAILY PRN anxiety attack 07/13/22 07/24/23 10/27/22 History paroxetine HCl 20 mg tablet 20 mg PO DAILY 07/13/22 07/24/23 04/08/23 History insulin glargine 100 unit/mL (3 20 unit subcut QAM PRN elevated 11/27/22 07/24/23 04/08/23 History mL) subcutaneous pen blood sugar insulin lispro 100 unit/mL 1 sliding scale dose subcut QIDACHS 03/03/23 07/24/23 03/02/23 History subcutaneous pen oxycodone 5 mg capsule 5 mg PO Q4-6H PRN Pain 04/09/23 07/24/23 Unknown History Exam Height,Weight and Vital Signs: Height 6 ft 5 in Weight 108.862 kg Last Vital Signs Temp 97.8 F 07/26/23 06:56 Pulse 84 07/26/23 06:56 Resp 16 07/26/23 06:56 BP 137/86 07/26/23 06:56 Pulse Ox 98 07/26/23 06:56 O2 Del Method Room Air 07/26/23 06:56 Pertinent Lab Results Pertinent Lab Results: Laboratory Tests 07/26/23 06:59 POC Glucose 92 Airway Mallampati Class: II TM Dist: >3cm Neck ROM: Full Heart: RRR Lungs: CTA Assessment and Plan Assessment Anesthesia Assessment: Anesthesia Plan Discussed Final Anesthetic Review Family History of Problems with Anesthesia: No History of Problems with Anesthesia: No ASA Class: III Final Preanesthetic Review: Meds/Allgs Chart Reviewed, Consent Obtained/Reviewed and Anes Risks/Benef Reviewed Patient Risk: Intermediate Procedure Risk: Low Anesthetic Plan Anesthetic Plan: MAC: Disposition: Standard PACU
--- NOTE | 2023-07-26 08:09 | MHC.SHP ---
Pre-Procedural Eval Section A - 24 Hr Update-Section A only Date of Service: 07/26/23 Section B - Complete if H&P > 30 days Chief Complaint: Cirrhosis, anemia Details of Present Illness: Medical History Alcohol use disorder, moderate, dependence Alcoholism Chronic abdominal pain Cirrhosis Decompensation of cirrhosis of liver Diabetes Dyspnea Elevated LFTs Esophageal varices GERD (gastroesophageal reflux disease) Gout Hydropneumothorax Pericardial effusion Peripheral neuropathy Pleural effusion Pleural effusion on right Recurrent left pleural effusion Tachycardia Surgical History H/O cervical spine surgery H/O colonoscopy H/O hemicolectomy History of thoracentesis Hx of esophagogastroduodenoscopy Family History Mother Cancer Sister Cancer Allergies: Allergies Allergy/AdvReac Type Severity Reaction Status Date / Time No Known Drug Allergies Allergy Mild NONE Verified 07/26/23 06:43 [NO KNOWN DRUG ALLERGIES] Review of Systems Review of Systems Comment: 10 Point ROS negative except as above Exam Exam Comment: Gen appear: No acute distress HEENT: no icterus Chest: No overt resp distress Abd: soft, nontender, mildly distended Psych: Stable affect, answering questions appropriately Neuro: A/Ox3 noted to move all extremities spontaneously Ext: no peripheral edema Plan Diagnosis/Plan: Unchanged I have reviewed the history and physical and performed a pertinent physical examination on my patient. No changes have occurred unless specified. Time Spent With Patient Time: Total time managing care of this patient today ____ minutes.
--- NOTE | 2023-07-26 08:12 | P.OP_ITS ---
Operative Note Operative Note Date of Service: 07/26/23 Narrative: Procedure: Upper endoscopy and colonoscopy Indication: Cirrhosis, anemia, Personal history of polyps Endoscopist: Marcia Hawk MD Anesthesia Provider: Dr Lyubov Valladares Anesthesia type: MAC Instrument: Olympus GIF-190 and [id number] Consent: Indication, risks vs benefits, and alternatives were discussed with the patient who gave written informed consent to proceed. Monitoring: EKG, pulse, pulse oximetry and blood pressure were monitored throughout the procedure. Please see anesthesia flowsheet. Colonoscopy Procedure: The patient was brought to the procedure room and placed in the left lateral decubitus position. IV medications were administered by the anesthesia provider in attendance. A digital rectal exam was performed which was normal. A distal attachment cap was affixed to the colonoscope which was then inserted through the anus and advanced through the colon to the anastomosis at 65 cm and terminal ileum. Mucosa was carefully examined under high definition white light as the instrument was slowly withdrawn in a retrograde panoramic fashion. Retroflexion was performed in rectum. The procedure was not difficult. There were no immediate obvious complications. The quality of the prep was BBPS: 2+2+2 = adequate Withdrawal time 21 minutes. Limitations: No limitations. Colonoscopy Findings: Mucosa: Normal to ileocecal anastomosis and terminal ileum. Protruding lesions: * 9 sessile polyps of size 2-6 mm in desending colon. Cold snare polypectomy was performed. The polyps were completely removed and retrieved. * 3 sessile polyps of size 3-5 mm in sigmoid colon. Cold snare polypectomy was performed. The polyps were completely removed and retrieved. * Large internal hemorrhoids without stigmata of recent bleeding. ?? EGD Procedure:?? The patient was then turned for the upper endoscopy. The endoscope was introduced through the bite-block and advanced to the second part of duodenum. The mucosa was carefully examined on slow withdrawal of the endoscope. The patient tolerated the procedure well. There were no immediate complications.? ? EGD Findings:? * Oropharynx: Scant blood noted in pharynx ? from tongue bite * Esophagus:? 1 large varix and 2 small varices were noted in the esophagus from 36 to 45 cm. The Z line is at 45 cm. * Stomach:? Diffuse congestion and erythema in mosaic pattern consistent with portal hypertensive gastropathy was noted in the whole stomach. * Duodenum:? Diffuse congestion and edema in whole of the examined duodenum onsistent with portal hypertensive duodenopathy. Additional intervention: The scope was withdrawn and a [employer] scientific banding kit was affixed to the scope in the usual fashion. One band was deployed to the large varix at 42 cm. The varix was noted to decompress completely after. Impressions:? * Esophageal varices (banding x 1) * Portal hypertensive gastropathy * Portal hypertensive duodenopathy * Normal colon mucosa * Total of 12 polyps removed from the left side of the colon. * Internal hemorrhoids Recommendations:?? * Follow biopsy results. Our office will call or send a letter with results within 7-10 days. * Continue carvedilol for variceal bleeding prophylaxis * Repeat EGD in 6 months * Patient continues to drink, and was again counseled very strongly for cessation * If 3 or more polyps are adenoma, would recommend repeat colonoscopy in 3 years. * Given the polyp burden, we will also discuss referral to genetics for polyposis Above has been reviewed with the patient.
[2023-07-26 09:17] VITALS: BP 108/72; PULSE 99; RESP 16; TEMP 36.6; O2SAT 97
[2023-07-26 09:32] VITALS: BP 118/76; PULSE 91; RESP 18; TEMP 36.9; O2SAT 96
== END 2023-07-26 10:11 | disposition home or self-care (01) ==
PROVIDERS: PCP Internal Medicine; Visit Provider Internal Medicine
PROC: (CPT 45385; principal; 2023-07-26 07:30)
DX: D64.9 Anemia, unspecified (principal); Z86.010 Personal history of colon polyps; K63.5 Polyp of colon; K64.8 Other hemorrhoids; K58.0 Irritable bowel syndrome with diarrhea; K70.31 Alcoholic cirrhosis of liver with ascites; K76.81 Hepatopulmonary syndrome; I31.39 Other pericardial effusion (noninflammatory); K85.90 Acute pancreatitis without necrosis or infection, unspecified; E11.9 Type 2 diabetes mellitus without complications; I85.00 Esophageal varices without bleeding; K76.6 Portal hypertension; K31.89 Other diseases of stomach and duodenum; F10.20 Alcohol dependence, uncomplicated; J90 Pleural effusion, not elsewhere classified; J94.8 Other specified pleural conditions; I26.99 Other pulmonary embolism without acute cor pulmonale; K21.9 Gastro-esophageal reflux disease without esophagitis; M10.9 Gout, unspecified; G62.9 Polyneuropathy, unspecified; Z79.4 Long term (current) use of insulin; Z79.899 Other long term (current) drug therapy; Z90.49 Acquired absence of other specified parts of digestive tract; Z87.891 Personal history of nicotine dependence
CPT/HCPCS: 45385; 43244; 82947; 88305; J2704

== ENCOUNTER → 2023-07-26 06:15 | Outpatient (BNV) | payer OTHER, SELFPAY | PROVIDERS: PCP Internal Medicine; Visit Provider Internal Medicine | DX: Z12.11 Encounter for screening for malignant neoplasm of colon (principal); Z86.010 Personal history of colon polyps; D64.9 Anemia, unspecified; K74.69 Other cirrhosis of liver; K76.6 Portal hypertension; I85.00 Esophageal varices without bleeding; D12.4 Benign neoplasm of descending colon; D12.5 Benign neoplasm of sigmoid colon; K64.8 Other hemorrhoids | CPT/HCPCS: 43244; 45385 ==

== ENCOUNTER 2023-08-06 13:04 | Outpatient (AMB) | payer OTHER, SELFPAY ==
[2023-08-06 13:24] VITALS: BP 128/78; PULSE 87; BMI 29.2
--- NOTE | 2023-08-06 13:24 | A.OFFVIS_ITS ---
Intake Vital Signs 08/06/23 13:24 Height 6 ft 5 in Weight 246 lb BMI 29.2 BP 128/78 Blood Pressure Location Rt brachial Position Sitting Pulse 87 Intake Visit Reasons: Cholesterolosis of gallbladder Intake Note: Patient referred by Dr. Hawk for choleterolosis of gallbladder. Recent US on 07-20-23. Patient c/o: pain on abd due to pancreatitis and liver cirrhosis Regional Trainer Required: No Accompanied by: Self / Same As Patient Allergies No Known Drug Allergies [NO KNOWN DRUG ALLERGIES] Allergy (Mild, Verified 08/06/23 13:26) NONE HPI HPI Comments History of Present Illness Details Patient presents here because of evaluation of cholesterol polyps/lesions. He has no upper quadrant symptoms related to biliary disease. Patient has a very complex and interrogate past medical history including cirrhosis for which he has had multiple paracentesis and thoracentesis. He also has esophageal varices, pulmonary embolism, cirrhosis among other comorbidities Chart was reviewed patient evaluated [facility] Medical History Pleuritic chest pain Pulmonary embolism, bilateral Cirrhosis of liver Diabetes Alcohol use disorder, moderate, dependence Recurrent left pleural effusion Pleural effusion Pericardial effusion Tachycardia Dyspnea Hydropneumothorax Pleural effusion on right Decompensation of cirrhosis of liver Cirrhosis GERD (gastroesophageal reflux disease) Esophageal varices Chronic abdominal pain Gout Peripheral neuropathy Alcoholism Elevated LFTs Surgical History History of abdominal paracentesis Hx of esophagogastroduodenoscopy History of thoracentesis H/O colonoscopy H/O cervical spine surgery H/O hemicolectomy Family History Mother Cancer Sister Cancer Social History Household Members: Other Household Members Other:: roommate Housing: Apartment Are you a primary childcare administrator to a significant other at home: No Do you presently have visiting nurse or other home services: No Alcohol intake: current Alcohol intake frequency: former alcohol drinker Alcohol type: hard liquor Patient Tobacco Use Status: Former Tobacco user Quit Date: 1 mth ago Tobacco use type: Cigarette Years Smoked: 30 e-Cigarette/Vaping Use: Currently Using Second Hand Smoke Exposure: No Substance Use Type: Marijuana Advance Directives Date on File: 11/27/22 service: No Current occupational status: unemployed Physical Exam Vital Signs: Last Vital Signs Pulse 87 08/06/23 13:24 BP 128/78 08/06/23 13:24 BMI result Body Mass Index 29.2 Const Other: Tall thin male in no acute distress Chest Other: Chest breath sounds bilaterally GI Other: Abdomen soft, protuberant, benign. Incidental finding approximately 3 x 3 cm irreducible umbilical hernia. Assessment & Plan Assessment & Plan (1) Gallbladder polyp: Code(s): K82.4 - Cholesterolosis of gallbladder (2) Varices of esophagus determined by endoscopy: Code(s): I85.00 - Esophageal varices without bleeding (3) Elevated liver function tests: Code(s): R79.89 - Other specified abnormal findings of blood chemistry (4) Pulmonary embolism, bilateral: Code(s): I26.99 - Other pulmonary embolism without acute cor pulmonale Plan Present time, patient has a very high surgical risk because of his significant comorbidities. Current plan is to arrange for six-month follow-up ultrasound of his gallbladder for surveillance. Patient is also not interested in any surgical intervention at this time. We will see him after the six-month follow- up ultrasound or p.r.n.. All questions answered Coding Level of Care Code New Pt Level 4 (56997) Diagnoses Gallbladder polyp K82.4 Varices of esophagus determined by endoscopy I85.00 Elevated liver function tests R79.89 Pulmonary embolism, bilateral I26.99
== END 2023-08-06 13:50 | disposition home or self-care (01) ==
PROVIDERS: PCP Internal Medicine; Referring Provider Internal Medicine; Visit Provider Surgery
DX: K82.4 Cholesterolosis of gallbladder (principal); I85.00 Esophageal varices without bleeding; R79.89 Other specified abnormal findings of blood chemistry; I26.99 Other pulmonary embolism without acute cor pulmonale
CPT/HCPCS: 99204

== ENCOUNTER → 2023-08-06 13:04 | Outpatient (BNVA) | payer OTHER, SELFPAY | PROVIDERS: PCP Internal Medicine; Referring Provider Internal Medicine; Visit Provider Surgery | DX: K82.4 Cholesterolosis of gallbladder (principal); I85.00 Esophageal varices without bleeding; I26.99 Other pulmonary embolism without acute cor pulmonale; R79.89 Other specified abnormal findings of blood chemistry | CPT/HCPCS: 99202 ==

== ENCOUNTER 2023-08-15 08:39 | Outpatient (REF) | payer OTHER, SELFPAY ==
[2023-08-15 09:45] LABS: Anion Gap 13 (12-20); Blood Urea Nitrogen 8 mg/dL (9-16); Calcium 9.1 mg/dL (8.4-10.2); Carbon Dioxide 30 mmol/L (22-29); Chloride 99 mmol/L (96-108); Estimated Glomerular Filt Rate > 60; Glucose Random 172 mg/dL (60-115); Sodium 138 mmol/L (135-145)
== END 2023-08-15 08:40 | disposition home or self-care (01) ==
LOC: HO.LAB 08:39
PROVIDERS: PCP Internal Medicine; Visit Provider Hospitalist
DX: I26.99 Other pulmonary embolism without acute cor pulmonale (principal); K76.6 Portal hypertension; K74.60 Unspecified cirrhosis of liver; K72.90 Hepatic failure, unspecified without coma; K82.4 Cholesterolosis of gallbladder; R07.81 Pleurodynia; J90 Pleural effusion, not elsewhere classified; J94.8 Other specified pleural conditions; F10.21 Alcohol dependence, in remission; D36.9 Benign neoplasm, unspecified site
CPT/HCPCS: 36415; 80048; 99212

== ENCOUNTER 2023-08-15 10:36 | Outpatient (AMB) | payer OTHER, SELFPAY ==
--- NOTE | 2023-08-15 10:38 | A.OFFVIS_ITS ---
Intake Vital Signs 08/15/23 10:39 Height 6 ft 5 in Weight 242 lb BMI 28.7 BP 110/69 Blood Pressure Location Rt brachial Position Sitting Pulse 73 Pulse Source Monitor Intake Visit Reasons: 3 month follow up Intake Note: Patient states hes feeling well no current GI concerns. Waterproofer Helper Required: No Accompanied by: Self / Same As Patient Allergies No Known Drug Allergies [NO KNOWN DRUG ALLERGIES] Allergy (Mild, Verified 08/15/23 10:42) NONE HPI HPI Comments History of Present Illness Details This is a 56-year-old gentleman with past medical history of severe alcohol use disorder that has led to cirrhosis complicated by portal hypertension (portal hypertension gastropathy, esophageal varices, ascites, hepatic hydrothorax, hepatic encephalopathy) MELD-Na 19, Child St class C, main portal vein thrombosis currently not on anticoagulation, who presents for q4w follow-up. 01/2022: Main issue remains difficulty managing hepatic hydrothorax. This was noted i nitially in 07/2021 and worsened after development of PVT in 09/2021. He has undergone multiple thoracentesis since then, predominantly on the right side. Details of most recent thoras: 01/30/2022- 1.6 L dark clear eliseo fluid. No specimen sent. No immediate complications but small right pneumothorax was visualized after this procedure on CTA 02/05 which is persistent on chest x-ray done 02/07. 01/18/2022-1.5 L of eliseo colored fluid w ith intermittent hemorrhage. Fluid studies showed: 12/30/2021-2.4 L drained from the right si de. No fluid studies sent. Fluid studies from 10/19 show Light's criteria consistent with transudative effusion. SAAG of 1.3, however the total protein of the fluid was 3.6. (patient has never had an echocardiogram that I can see in our system). He is currently on Lasix 40 mg and spironolactone 100 mg. This was changed a month ago. His renal function has remained stable. No recent urine lytes in our system. In terms of his salt intake, he says that he does not add any extra salt from shaker. Cooks food himself but still ends up buying a lot of food from the deli/stores. Tends to have a lot of sausage, steak, chicken, which is heavily . Patien sees and t was not aware of checking nutrition labels. Last etOH intake was 6 weeks ago. Does not remember the quit date. He still currently smokes 5-6 cigarettes a day. Lives at home with his roommate and cat. Siblings are big support, especially his sister Tiny who is also present today. Additionally, on further questioning, he also notes significant difficulty with concentration and small past that he could do previously without any difficulty. He also has trouble sleeping at night. Reports decrease in stamina, can only walk a few feet before he feels tired. States this had been going on even before he had issue with pleural effusion. When he does not have any ascites, he denies any abdominal discomfort, nausea, vomiting, changes in bowel habits. Denies any new rashes. Endorses fatigue as above. 03/08/22: Here for follow up alone. Reports that has not had to get a thoracentesis done, in the past 4 weeks, however now feels that he may be reaching the point. Continues on Lasix 60 mg and Aldactone 150 mg. Tells me he did get the phone message increased dosage, but as he did not right now and that time, he could not remember later on which was to increase, and ended up not increasing to Lasix 80 and Aldactone 200 mg as had been planned. He has not taken his meds this morning, and plans to take the new dose of the diuretics today. He also h ad not been taking his lactulose, since he had been going to the bathroom at least 1-2 times every day, and thought that lactulose was prescribed as a laxative. Reviewed, that this is to help with hepatic encephalopathy, and that he should take at least 1-2 doses every day with goal 2-3 bowel movements. Can decrease dose if he reaches that goal. Continues to remain sober from alcohol. Places last alcohol intake sometime in November 2021, prior to his hospital admission. Still smoking, now down to 3-5 cigarettes a day. Labs were reviewed. I discussed my concern would high urine sodium, and likely an inverted and sodium indiscretion. He tells me that it has been really hard for him to give up salt completely, but that he is trying. Again encouraged to follow up with a certified prosthetist vice president to help with meal planning and to see if eligible for meals on wheels. In terms of variceal screening, last EGD was in October 2021. Will need a repeat EGD next number. He also reports having partial colectomy for large polyp at [facility] 5-6 years ago, followed by surveillance colonoscopies. Per documentation, last colonoscopy was in 2019. Will need records. Ultrasound abdomen is scheduled for later this month. Alk-phos remains high, albeit lower than what it has been in the past. Will check an AFP with the next labs. 04/05/22: Presents today with his sister. Reports occasional step up with alcohol. Most recent drink was last night, had 3 drinks of vodka. Trying to quit alcohol on his own, has not discussed pharmacological and nonpharmacological therapies for this. Also is not interested in support groups are AA meetings. Continues to smoke 3-4 cigarettes a day. Is more cognizant of sodium restriction, and tries to review every nutrition label when he gets the food. Shortness of breath is persistent, but has not worsened. He has not needed repeat thoracentesis ever since up titration of diuretics. Currently on Lasix 120 mg and spironolactone [address] Alvarez in pulmonology, but has not had a follow-up, as he did had an unpleasant experience with one of the office members when he was trying to reschedule an appointment and has not call them again since then. As mentioned his last visit as well, endorses numbness and paresthesias of his feet. Had seen a neurologist at one point and was told this was due to alcohol use. B12 level is high, tells me he has stopped taking the supplement. Records from [facility] were also reviewed. Last colonoscopy was in 2019 and had 1 subcentimeter tubular adenoma in the left colon. Will be due in 5 years from then. To recall, he also has a history of advanced adenoma for which he underwent right colectomy around 2016 (per patient's report). 05/2022: Hospital admission for abd pain , left AMA. 08/01/22: Reports no abd complaints to include abd pain, N,V. Had been taking lasix 80 and spironolactone 200 the past month and dose was just corrected last week to lasix 120 and spironolactone 300. Feels distention has not gotten worse since adjusting it. Shortness of breath persistent but reports takes a lot to get winded compared to before. Last thoracentesis 07/12/22. Continues to drink etOH. Last etOH 2 days ago and then a week before that. VOdka with diet coke. Quit smoke just last week. Has been taking buproprion to help with cravings. Still adding salt to diet, thought he should increase intake since he had low sodium in the hospital back in May. 12/05/22: Had hospitalisation last week for anemia 2/2 variceal bleeding s/p EVBL (Dr Santo). He was also referred for TIPS by him. For some reason did not get carvedilol started in house. Also was not aware to cont taking lactulose. Reports disturbance in sleep wake cycle and mood. Otherwise no abd pain, diarrhea, stools are well formed and brown. Has been abstinent from etOH per his report x 2 months. Current meds: Lasix 120 Spironolactone 300 Rifaximin 550 BID Salt restriction continues to be a barrier. Cont to eat hot dogs, hamburgers etc. Not checking nutritional labels. 02/02/23: EGD: * Small esophageal varices * Post-banding ulcer * Portal hypertensive gastropathy * Portal hypertensive duodenopathy 02/05/23: Reports having 12oz x5 beers over the weekend. Has also been noticing increased ascites and thinks that may have been due to missed doses in the last couple of weeks. Has been working on salt restriction. Weight is up from 234# dry weight to 244# today. BP noted to be low today. Took 6.25 coreg yest AM and then 12.5 coreg in PM yest. Does not have any lightheadedness or dizziness but does feel more tired this morning. 07/26/23: EGD/colo * Esophageal varices (banding x 1) * Portal hypertensive gastropathy * Portal hypertensive duodenopathy * Normal colon mucosa * Total of 12 polyps removed from the left side of the colon. * Internal hemorrhoids Path: Colon, left, polypectomies: Hyperplastic mucosal polyps 08/15/23: Here for post EGD/colo follow up. Reports constipation x 1 week despite taking lactulose twice a day. Has not increased dose. Also cont to drink 2-3 times a week. Meds reviewed. Lasix 80 Spironolactone 200 Nadolol 20 Lactulose 30ml TID Of note - was initially prescribed coreg however appears was switched to Nadolol during a hospitalisation in Feb. Will reinstate. Most recent US from Jun also showed large GB polyp measuring [address] Khan and plan for surveillance with q6m US. [facility] Medical History Pleuritic chest pain Pulmonary embolism, bilateral Cirrhosis of liver Diabetes Alcohol use disorder, moderate, dependence Recurrent left pleural effusion Pleural effusion Pericardial effusion Tachycardia Dyspnea Hydropneumothorax Pleural effusion on right Decompensation of cirrhosis of liver Cirrhosis GERD (gastroesophageal reflux disease) Esophageal varices Chronic abdominal pain Gout Peripheral neuropathy Alcoholism Elevated LFTs Surgical History History of abdominal paracentesis Hx of esophagogastroduodenoscopy History of thoracentesis H/O colonoscopy H/O cervical spine surgery H/O hemicolectomy Family History Mother Cancer Sister Cancer Social History Household Members: Other Household Members Other:: roommate Housing: Apartment Are you a primary animal care specialist to a significant other at home: No Do you presently have visiting nurse or other home services: No Alcohol intake: current Alcohol intake frequency: former alcohol drinker Al cohol type: hard liquor Patient Tobacco Use Status: Former Tobacco user Quit Date: 1 mth ago Tobacco use type: Cigarette Years Smoked: 30 e-Cigarette/Vaping Use: Currently Using Second Hand Smoke Exposure: No Substance Use Type: Marijuana Advance Directives Date on File: 11/27/22 service: No Current occupational status: unemployed Review of Systems Const All systems reviewed & are unremarkable except as noted in HPI and below Physical Exam Vital Signs: Last Vital Signs Pulse 73 08/15/23 10:39 BP 110/69 08/15/23 10:39 BMI result Body Mass Index 28.7 Gen Appear: NAD, HEENT: No scleral icterus, no bitemporal wasting noted Chest: CTA CVS: Regular S1/S2 no murmurs Abd: soft, nontender, mildly distended, shifting dullness to percussion Ext: No peripheral edema bilaterally Neuro: A/Ox3, no asterixis Assessment & Plan Assessment & Plan (1) Decompensation of cirrhosis of liver: Code(s): K72.90 - Hepatic failure, unspecified without coma; K74.60 - Unspecified cirrhosis of liver (2) Hydrothorax: Code(s): J94.8 - Other specified pleural conditions (3) Alcohol use disorder, severe, in early remission: Code(s): F10.21 - Alcohol dependence, in remission (4) Multiple adenomatous polyps: Code(s): D36.9 - Benign neoplasm, unspecified site (5) Smoker: Code(s): F17.200 - Nicotine dependence, unspecified, uncomplicated (6) Gallbladder polyp: Code(s): K82.4 - Cholesterolosis of gallbladder Plan -Severe alcohol use disorder -Decompensated Cirrhosis (bleeding esophageal varices 11/2022, ascites, hepatic hydrothorax, hepatic encephalopathy MELD-Na 15 (03/2023 labs) Child [address] Class C Discussed with the pt to strongly consider follow up with addiction medicine to help with etOH use disorder treatment. Reminded that ongoing etOH use is leading to progression of liver disease. Needs to demonstrate at least 3-6 months of sobriety for transplant evaluation. - Alcohol use disorder: Most recent drink 2 DAYS ago - Had a PETH of 810 in November 2022. Again counseled extensively on etOH cessation. He tells me he will call addiction medicine to follow up with Jannet Marion. - Ascites and Peripheral Edema: Has moderate NON-tense ascites on exam today. Encouraged compliance with diuretics. Has had indiscretion to salt intake. Given sensitivity to high doses of diuretics, reinforced need to adhere to 2g Na to avoid uptitration of diuretics. Cont lasix 80mg and aldactone 200mg. Encouraged compliance with the meds. - Hepatic encephalopathy: No HE on exam today. Cont lactulose titrated to 2-3 soft bowel movements, pt advised that can increase dose as needed to titrate to effect. Cont Rifaximin. ? - Secondary prophylaxis for gastroesophageal varices: He is status post endoscopic variceal band ligation (EVBL) for BLEEDING large varices most recently in 01/16/23. Most recent EGD for secondary prophylaxis this month again showed large varices in the context of ongoing etOH use. - STOP nadolol. - Start coreg 6.25 BID - Again etOH abstinence is of paramount importance to avoid progression of portal hypertension. - HCC screening: Most recent ultrasound abdomen was in Jun 2023. Cirrhotic changes with patent PV. Next US due 12/2023. Reminder placed. - Personal hx of high risk polyps: Repeat colo earlier this year with 13 HP polyps. Due for colonoscopy 2026. - GB polyps: Has multiple GB polyps with largest one measuring 1 cm. Due to underlying cirrhosis, plan to repeat US Abd in 6 months by gen surg. Follow up in 3 months Medications: New sennosides (Natural Senna Laxative) 17.2 mg (2 x 8.6 mg) PO BEDTIME 14 tabs 0RF carvedilol must administer with a meal/food 6.25 mg PO BID 90 days 180 tabs 1RF Discontinued nadolol Discontinued Reason: Doctor's Order 20 mg See Protocol PO DAILY 30 tabs 0RF Coding Level of Care Code Est Pt Level 5 (55162) Diagnoses Decompensation of cirrhosis of liver K72.90; K74.60 Hydrothorax J94.8 Alcohol use disorder, severe, in early remission F10.21 Multiple adenomatous polyps D36.9 Smoker F17.200 Gallbladder polyp K82.4
[2023-08-15 10:39] VITALS: BP 110/69; PULSE 73; BMI 28.7
== END 2023-08-15 11:36 | disposition home or self-care (01) ==
PROVIDERS: PCP Internal Medicine; Visit Provider Internal Medicine
DX: K72.90 Hepatic failure, unspecified without coma (principal); K74.60 Unspecified cirrhosis of liver; J94.8 Other specified pleural conditions; F10.21 Alcohol dependence, in remission; D36.9 Benign neoplasm, unspecified site; K82.4 Cholesterolosis of gallbladder
CPT/HCPCS: 99214

== ENCOUNTER 2023-09-04 15:11 | Outpatient (REF) | payer OTHER, SELFPAY ==
--- NOTE | ~2023-09-04 | CT_ITS ---
EXAMINATION: CT ANGIOGRAM OF THE CHEST WITH AND WITHOUT CONTRAST (CT PULMONARY ANGIOGRAM FOR PE) CLINICAL INFORMATION: Reason for Exam R07.81 - Pleurodynia COMPARISON: Chest x-ray 07/05/2023 and CTA chest 04/09/2023. TECHNIQUE: Prior to contrast administration, noncontrast localization images were obtained. Subsequently, multidetector volumetric imaging was performed from the thoracic inlet to below the diaphragms following the administration of 80 mL Omnipaque 350 intravenous contrast. No contrast reaction reported Sagittal, coronal, and MIP oblique sagittal reformatted images were obtained on the CT workstation, uploaded to PACS, and reviewed. This CT examination was performed using dose optimization techniques as appropriate, variously including the following: *Automated exposure control *Adjustment of mA and/or kV according to patient size (this includes techniques or standardized protocols for targeted exams where dose is matched to indication/reason for exam; i.e. extremities or head) *Use of iterative reconstruction technique Total exam dose-length product 187 mGy-cm FINDINGS: QUALITY OF STUDY/CONTRAST BOLUS: Satisfactory. PULMONARY ARTERIES: No pulmonary emboli. THORACIC AORTA: No aneurysm. LUNG: There is a left lower lobe consolidation. There is a 1 cm lingular nodule axial image 48/6. No additional pulmonary nodules, mass or groundglass density seen. PLEURA: Small to moderate left pleural effusion is visualized. MEDIASTINUM: Normal heart size. No pericardial effusion. There is a 7 mm lymph node in the aortic window. No evidence of septal bowing or right heart strain. CORONARY ARTERY CALCIFICATION: None visualized on this study. CHEST WALL/AXILLA: No axillary or internal mammary lymphadenopathy. Suspect bilateral gynecomastia OSSEOUS STRUCTURES: No aggressive lytic or sclerotic process seen. UPPER ABDOMEN: Visualized liver, spleen, pancreas and bilateral adrenal glands are unremarkable. No reflux of contrast into the hepatic veins to suggest elevated right heart pressures. CT/CT angio chest PE protocol IMPRESSION: No evidence of PE. No evidence of aortic aneurysm or dissection. Left lower lobe consolidation with pleural effusion. Solitary nodule, new in the lingula, suspicious. Recommend ultrasound-guided diagnostic left thoracentesis. VTE: negative
[2023-09-04] MEDS: iohexoL 350 MG/ML 100 ML INFUS..BTL 75 ML IV (15:43)
== END 2023-09-04 15:12 | disposition home or self-care (01) ==
LOC: HO.CT 15:11
PROVIDERS: PCP Internal Medicine; Visit Provider Hospitalist
DX: R07.81 Pleurodynia (principal); J90 Pleural effusion, not elsewhere classified; I26.99 Other pulmonary embolism without acute cor pulmonale
CPT/HCPCS: 71275; Q9967

== ENCOUNTER 2023-10-09 08:53 | Outpatient (REF) | payer OTHER, SELFPAY ==
--- NOTE | ~2023-10-09 | PE_ITS ---
EXAMINATION: FLUORINE-18 FDG PET/CT SCAN CLINICAL INFORMATION: Initial treatment management. Pleural-based solitary 1 cm lingular solid lung nodule seen on recent CTA of the chest done on 09/04/2023. Left lower lobar consolidation versus mass. Moderate volume left-sided pleural effusion. For follow-up. TECHNIQUE: 56 minutes following the intravenous administration of 22.3 mCi of fluorine 18 FDG, images from the base of skull to mid-thigh were obtained using a combined PET/CT scanner with CT scan based attenuation correction. No intravenous contrast was administered. Transverse, coronal, sagittal, and volume reconstruction projections were obtained. The patient's blood glucose as determined by a finger stick, was 143 mg/dL immediately prior to injection. The radiotracer was injected intravenously through the left antecubital superficial vein, without any complications. Total CT exam dose-length product 1115.61 mGy-cm. * These CT images were obtained using dose optimization techniques as appropriate, variously including the following: Automated exposure control * Adjustment of mA and/or kV according to patient size (this includes techniques or standardized protocols for targeted exams where dose is matched to indication/reason for exam; i.e. extremities or head) * Use of iterative reconstruction technique COMPARISON: CTA of the chest done on 09/04/2023. FINDINGS: SUV max REFERENCE: Blood: 2.2 (136/349). Liver: 3.2 (191/349). HEAD AND NECK: No abnormal radiotracer uptake. No large intracranial hemorrhage, acute territorial infarct or significant shift of midline structures. CHEST: Ports and Devices: None Lungs: Previously documented approximately 1 cm pleural-based lingular noncalcified solid-appearing lung nodule is reidentified (CT: 172/349) however, is not hypermetabolic on this study. Previously documented round masslike opacity seen at left lung base abutting the left-sided pleural effusion currently measures approximately 3.7 x 4.8 cm and shows mild tracer avidity with SUV max of 1.7 (125/267), may represent round atelectasis versus low-grade neoplasm. Pleura: Moderate size mild tracer avid left-sided pleural effusion is seen. Lymph Nodes: No tracer-avid mediastinal, hilar or internal mammary or axillary lymphadenopathy. Mediastinum: There is no significant pericardial effusion/thickening. Breasts/Chest Wall: Prominent bilateral retroareolar lobulated soft tissues within the breast likely represent bilateral diffuse gynecomastia. Clinical correlation and follow-up bilateral diagnostic mammogram with without ultrasound as appropriate may be considered for further clarification. ABDOMEN/PELVIS: Liver/Biliary System: No focal tracer-avid liver lesion. Hepatomegaly, measures 23.2 cm at its maximum craniocaudal dimension. The gallbladder appears unremarkable. Pancreas: Focal increased tracer avidity is noted in the region of the pancreaticoduodenal groove given the presence of misregistration artifact, not optimally localized, may represent changes secondary to the lesion localized to the proximal part of the duodenum versus pancreatic head (219/349), shows SUV max of 6.4. Pancreatic location is favored. Follow-up MRI of the pancreas with and without intravenous contrast per pancreatic mass protocol is recommended. Spleen: Splenomegaly, measures 18.4 cm at its maximum craniocaudal dimension. No evidence of any increased tracer avidity within the spleen or focal lesion. Adrenal Glands: No abnormal radiotracer uptake. Kidneys: No hydronephrosis, hydroureter or renal calculi bilaterally. Bowel: There is no significant bowel dilatation to suggest obstruction. Postsurgical changes are noted within the right mid anterior abdomen from prior bowel resection. Lymph Nodes: No tracer avid retroperitoneal, mesenteric or pelvic and/or groin lymphadenopathy. Multiple soft tissue nodules are noted within the retroperitoneum likely represent prominent portosystemic venous collaterals in this patient with history of cirrhosis and portal hypertension. Pelvic Organs: The urinary bladder is underdistended. Ascites: Moderate volume simple appearing ascites fluid is present within the peritoneal cavity extending into the pelvis. MUSCULOSKELETAL: No tracer avid focal disease. VASCULAR: Calcific atherosclerotic disease of the aorta and is branches without aneurysm formation. THE SITE(S) OF MOST INTENSE FDG AVIDITY AND SUV MAX: Focal tracer avidity in the region of the pancreaticoduodenal groove/head of the pancreas with SUV max of 6.4. PET/PET CT fusion skull to thigh IMPRESSION: Compared to most recent prior CT of the chest done on 09/04/2023: * Previously documented approximately 1 cm pleural-based solid nodule seen within the lingular segment of the left upper lobe is reidentified however is not hypermetabolic, not optimally characterized. Follow-up diagnostic CT scan of the chest to document stability and/or resolution as appropriate is recommended. * Left lower lobar round-shaped opacity/mass with minimal tracer avidity and SUV max of 1.7, may represent round atelectasis versus low-grade neoplasm. * Moderate size mild tracer avid left-sided pleural effusion. * Prominent soft tissue within both breasts in the retroareolar region, likely represent diffuse gynecomastia. Clinical correlation, diagnostic mammogram and if appropriate targeted ultrasound may be considered for further clarification. * Incidental note is made of focal tracer avidity in the region of the pancreaticoduodenal groove with SUV max of 6.4. Given the presence of misregistration artifact, not optimally localized, likely represent lesions in the pancreatic head and less likely to be in the duodenum. A follow-up MRI of the pancreas per pancreatic mass protocol with and without intravenous contrast is recommended for further clarification. * Moderate volume simple appearing ascites. * Hepatosplenomegaly and features of portal hypertension.
== END 2023-10-09 08:54 | disposition home or self-care (01) ==
LOC: HO.PET 08:53
PROVIDERS: PCP Internal Medicine; Visit Provider Hospitalist
DX: Z13.89 Encounter for screening for other disorder (principal)

== ENCOUNTER 2023-11-26 14:56 | Inpatient (IN) | payer OTHER, SELFPAY ==
--- NOTE | ~2023-11-26 | XR_ITS ---
EXAMINATION: XR KNEE, RIGHT CLINICAL INFORMATION: Right knee pain COMPARISON: None available. TECHNIQUE: Four views of the right knee. FINDINGS: No visible acute fracture. Alignment is anatomic. Joint spaces are maintained. Small-moderate joint effusion. No abnormal soft tissue calcification. XR/XR knee RT 3V IMPRESSION: Small-moderate joint effusion. No radiographic evidence of acute fracture.
[2023-11-26 14:58] VITALS: BP 148/86; PULSE 90; O2SAT 98
[2023-11-26 15:25] VITALS: BP 98/57; PULSE 84; RESP 16; TEMP 36.6; O2SAT 99; BMI 32.3
--- NOTE | 2023-11-26 15:35 | ED.GENADULT ---
HPI - General Adult General Chief complaint: Extremity Injury, Lower Stated complaint: R KNEE PAIN X2 DAYS, NO INJURY PER EMS Time Seen by Provider: 11/26/23 20:11 Source: patient Mode of arrival: ambulatory Limitations: no limitations History of Present Illness ED Provider: sudha NEWMAN narrative: Patient's alcoholic cirrhosis with ascites no joint problems in the past noticed atraumatic in is pain and swelling of the right knee for last 3 days got worse in last 24 hours no fever no chills no history of similar pain in the past no history of gout patient is on Eliquis for PE Related Data Home Medications ?Medication ?Instructions ?Recorded ?Confirmed bupropion HCl 300 mg 24 hr tablet, 300 mg PO DAILY 06/10/21 07/24/23 extended release folic acid 1 mg tablet 1 mg PO DAILY 06/10/21 07/24/23 thiamine HCl (vitamin B1) 100 mg 100 mg PO DAILY 06/10/21 07/24/23 tablet albuterol sulfate 90 mcg/actuation 2 puff inhalation Q6H PRN 01/26/22 07/24/23 aerosol inhaler (ProAir HFA) Shortness Of Breath hydroxyzine pamoate 25 mg capsule 25 - 50 mg PO DAILY PRN itching 01/26/22 07/24/23 lorazepam 0.5 mg tablet 0.5 mg PO DAILY PRN anxiety attack 07/13/22 07/24/23 paroxetine HCl 20 mg tablet 20 mg PO DAILY 07/13/22 07/24/23 insulin glargine 100 unit/mL (3 20 unit subcut QAM PRN elevated 11/27/22 07/24/23 mL) subcutaneous pen blood sugar insulin lispro 100 unit/mL 1 sliding scale dose subcut QIDACHS 03/03/23 07/24/23 subcutaneous pen oxycodone 5 mg capsule 5 mg PO Q4-6H PRN Pain 04/09/23 07/24/23 Previous Rx's ?Medication ?Instructions ?Recorded blood sugar diagnostic (FreeStyle #100 ea 10/30/22 Lite Strips) blood-glucose meter (FreeStyle #1 ea 10/30/22 Lite Meter kit) lancets #200 ea 10/30/22 ondansetron 4 mg disintegrating 4 mg PO Q8H PRN nausea and 10/30/22 tablet vomiting #14 tabs pen needle, diabetic 31 gauge x #1,200 ea 10/31/22 5/16 (Pen Needle) lactulose 10 gram/15 mL oral 30 ml PO TID 30 days #2,700 mL 12/05/22 solution sucralfate 1 gram tablet 1 g PO TIDAC #90 tabs 03/04/23 spironolactone 100 mg tablet 200 mg (2 x 100 mg) PO DAILY 90 03/14/23 days #180 tabs food supplemt, lactose-reduced 1 ea PO BID 30 days #14,220 mL 04/23/23 0.06 gram-1.5 kcal/mL oral liquid (Boost Plus) furosemide 40 mg tablet 80 mg (2 x 40 mg) PO DAILY 90 days 05/07/23 #180 tabs peg 3350-electrolytes 236 240 ml PO Q10M 1 day #4,000 mL 05/15/23 gram-22.74 gram-6.74 gram-5.86 gram solution (Golytely) peg 3350-electrolytes 236 240 ml PO Q10M #4,000 mL 07/19/23 gram-22.74 gram-6.74 gram-5.86 gram solution carvedilol 6.25 mg tablet 6.25 mg PO BID 90 days #180 tabs 08/15/23 sennosides 8.6 mg tablet (Natural 17.2 mg (2 x 8.6 mg) PO BEDTIME 08/15/23 Senna Laxative) #14 tabs apixaban 5 mg tablet (Eliquis) 5 mg PO BID #56 tabs 09/20/23 omeprazole 40 mg capsule,delayed 40 mg PO DAILY #28 caps 11/14/23 release rifaximin 550 mg tablet (Xifaxan) 550 mg PO BID #56 tabs 11/14/23 Allergies Allergy/AdvReac Type Severity Reaction Status Date / Time No Known Drug Allergies Allergy Mild NONE Verified 11/26/23 15:29 [NO KNOWN DRUG ALLERGIES] Review of Systems Review of Systems: Yes all other systems are reviewed and are negative PMFSH Past Medical History Medical History Pulmonary nodule 1 cm or greater in diameter Pleuritic chest pain Pulmonary embolism, bilateral Cirrhosis of liver Diabetes Alcohol use disorder, moderate, dependence Recurrent left pleural effusion Pleural effusion Pericardial effusion Tachycardia Dyspnea Hydropneumothorax Pleural effusion on right Decompensation of cirrhosis of liver Cirrhosis GERD (gastroesophageal reflux disease) Esophageal varices Chronic abdominal pain Gout Peripheral neuropathy Alcoholism Elevated LFTs Surgical History History of abdominal paracentesis Hx of esophagogastroduodenoscopy History of thoracentesis H/O colonoscopy H/O cervical spine surgery H/O hemicolectomy Family History Family History Mother Cancer Sister Cancer Social History Social History Household Members: Other Household Members Other:: roommate Housing: Apartment Are you a primary healthcare insurance sales agent to a significant other at home: No Do you presently have visiting nurse or other home services: No Alcohol intake: current Alcohol intake frequency: a few times a week Alcohol type: hard liquor Patient Tobacco Use Status: Former Tobacco user Tobacco use type: Cigarette Years Smoked: 30 Smoked in Last 30 Days: Yes e-Cigarette/Vaping Use: Currently Using Second Hand Smoke Exposure: No Use of substances other than those prescribed or required for medical reasons: No Substance Use Type: Marijuana Advance Directives: Yes Advance Directives Information Provided: No Advance Directives on File: No Advance Directives Date on File: 11/27/22 Do you have a plan to hurt others: No Plan service: No Current occupational status: unemployed Physical Exam ED Vital Signs: Vital Signs - 24 hr 11/26/23 15:25 11/26/23 19:51 11/26/23 23:09 Temperature 97.9 F 99.7 F 98.6 F Pulse Rate 84 92 72 Respiratory Rate 16 18 20 Blood Pressure 98/57 L 125/82 152/88 H Pulse Oximetry 99 97 96 Oxygen Delivery Method Room Air Room Air Room Air BMI result Body Mass Index 32.3 Appearance: Alert. Oriented X3. No acute distress. Eyes: PERRLA, No Nystagmus ENT: Pharynx normal. Oral Mucosa moist Neck: Normal inspection. Neck supple. CVS: Normal heart rate and rhythm. Pulses normal. Respiratory: No respiratory distress. Equal air entry bilateral, no wheezing/rales/rhonchi Abdomen: Soft and nontender. Bowel sounds are present, ascites+ Skin: Skin warm and dry. Normal skin color. Normal skin turgor. Extremities: No lower extremity edema. No calf tenderness right knee diffuse tenderness local warmth skin color normal effusion++ limited extension because of pain Neuro: Oriented X 3. No motor deficit. Course Course Course Narrative: RME, this is a rapid medical exam performed by Jani Britton please refer to primary provider for complete H&P- 58 year male presents for evaluation of atraumatic right knee pain that started today. He reports he is unable to stand the pain. He took oxycodone at home which did not help his pain. Plan for labs, x-ray Medications Administered Discontinued Medications Generic Name Dose Route Start Last Admin Trade Name Freq PRN Reason Stop Dose Admin Sodium Chloride 1,000 mls @ 999 mls/hr 11/26/23 22:47 11/27/23 00:11 Ns IV 11/26/23 23:47 Infused .Q1H1M ONE Infusion Vancomycin HCl 2,000 mg in 500 mls @ 250 mls/hr 11/26/23 22:47 11/26/23 23:52 Vancomycin/Ns IV 11/27/23 00:46 250 mls/hr ONCE ONE Administration Cefepime HCl 2 gm/ Sodium 50 mls @ 100 mls/hr 11/26/23 22:47 11/26/23 23:56 Chloride IV 11/26/23 23:16 Infused ONCE ONE Infusion Lidocaine HCl 10 ml 11/26/23 20:18 11/26/23 21:10 Lidocaine Hcl 1 % Mpf 5 Ml Vial INFILTRATI 11/26/23 20:19 10 ml ONCE ONE Administration Methylprednisolone Acetate 80 mg 11/26/23 20:18 11/26/23 21:10 Methylprednisolone Acetate 80 Mg Vial INTRAARTIC 11/26/23 20:19 80 mg ONCE ONE Administration Morphine Sulfate 4 mg 11/27/23 00:09 11/27/23 00:37 Morphine Sulfate 4 Mg/Ml Cartridge IVPUSH 11/27/23 00:10 4 mg ONCE ONE Administration Protocol Procedures Joint Aspiration/Injection Joint Asp./Inject. 1: Side of body: left Joint Aspirated: knee Ultrasound Guidance: No Skin Prep: Povidone-Iodine1% Local Anesthetic: lidocaine 1% Amount of anesthesia used (mL): 5 Needle Size Used: 20G Fluid Obtained: bloody Total fluid obtained (mL): 5 Medication Injected, if any: Methylprednisolone Amount of medication injected (mL): 5 Patient Tolerated Procedure: well and no complications Complications: none Medical Decision Making Medical Decision Making [facility] Narrative: Patient's right knee pain acute onset with leukocytosis more than 70,000 in joint fluid meeting criteria for septic arthritis will admit patient IV antibiotics started pending culture and Gram staining Differential Diagnosis Differential Diagnoses: The differential diagnosis associated with the presentation includes Gouty arthritis/osteoarthritis/septic arthritis Admission/Observation Consideration of admission/observation: Escalation of care including admission/observation considered Consult Healthcare Provider Management of the patient was discussed with: Hospitalist Lab Data [facility] Lab Attestation statement: I reviewed the patient's lab results. 11/26/23 17:32 11/26/23 17:32 Labs: Lab Results 11/26/23 11/26/23 11/26/23 Range/Units 17:32 21:37 22:58 WBC 7.6 (4.8-10.8) X10*3/uL RBC 3.92 L (4.60-5.80) X10*6/uL Hgb 10.9 L (14.0-18.0) g/dl Hct 33.2 L (42.0-52.0) % MCV 84.7 (80.0-98.0) fL MCH 27.8 (27.0-33.0) pg MCHC 32.8 (31.0-36.0) g/dl RDW 19.4 H (11.0-16.0) % Plt Count 124 L (160-400) X10*3/uL MPV 9.0 L (9.4-12.4) fL Immature Gran % (Auto) 0.7 H (0.0-0.4) % Neut % (Auto) 67.8 (45-73) % Lymph % (Auto) 10.4 L (20-40) % [place] % (Auto) 19.9 H (2-11) % Eos % (Auto) 0.3 (0-4) % Baso % (Auto) 0.9 (0-2) % Lymph # (Auto) 0.8 L (1.2-4.9) X10*3/uL [place] # (Auto) 1.5 H (0.1-1.2) X10*3/uL Eos # (Auto) 0.0 (0.0-0.4) X10*3/uL Baso # (Auto) 0.1 (0.0-0.2) X10*3/uL Abs Immat Gran (auto) 0.05 H (0.00-0.03) X10*3/uL Absolute Neuts (auto) 5.2 (2.0-8.3) x10*3/uL Absolute Nucleated RBC 0.000 (0.0-0.012) X10*3/uL Nucleated RBC % (auto) 0.0 (0.0-0.2) /100WBC Smear Tech's Comments VERIFIED ESR 66 H (0-15) MM/HR PT 19.8 H D (11.1-13.3) SEC INR 1.6 H (0.9-1.1) APTT 33.1 (26.0-36.8) SEC Sodium 131 L (135-145) mmol/L Potassium 3.9 (3.3-5.1) mmol/L Chloride 92 L (96-108) mmol/L Carbon Dioxide 26 (22-29) mmol/L Anion Gap 17 (12-20) BUN 8 L (9-16) mg/dL Creatinine 1.11 (0.5-1.4) mg/dL Estim Creat Clear Calc 97.1 Estimated GFR > 60 Random Glucose 134 H (60-115) mg/dL Lactic Acid 2.1 H* (0.5-2.0) mmol/L Uric Acid 7.9 H (3.4-7.0) mg/dL Calcium 9.4 (8.4-10.2) mg/dL Total Bilirubin 5.2 H (0.0-1.0) mg/dL AST 72 H (5-37) U/L ALT 20 (0-40) U/L Alkaline Phosphatase 358 H (39-117) U/L C-Reactive Protein 2.37 H (< or = 0.50) mg/dL Total Protein 8.8 H (6.5-8.0) g/dL Albumin 3.3 L (3.5-5.0) g/dL Lipase 69 (8-78) U/L Synovial Source knee R Synovial WBC 74.210 X10*3/uL Synovial RBC 0.136 X10*6/uL Synovial Neutrophils 92 % Synovial Monocytes 8 % Radiology Impression Discussion of test interpretation with radiology: I have reviewed the radiologist's reading. Discharge Plan Discharge Patient Disposition: Admitted As Inpatient Interventions: Admission Worksheet (ED) Last Done: 11/27/23 00:47
[2023-11-26 17:40] LABS: Basophils Absolute Auto 0.1 X10*3/uL (0.0-0.2); Basophils Percent Auto 0.9 % (0-2); Eosinophils Percent Auto 0.3 % (0-4); Hematocrit 33.2 % (42.0-52.0); Hemoglobin 10.9 g/dl (14.0-18.0); Imm Gran Abs Auto 0.05 X10*3/uL (0.00-0.03); Imm Gran Pct Auto 0.7 % (0.0-0.4); Lymphocytes Absolute Auto 0.8 X10*3/uL (1.2-4.9); Lymphocytes Percent Auto 10.4 % (20-40); MANUAL DIFF FLAG SCAN; Mean Corpuscular HGB Conc 32.8 g/dl (31.0-36.0); Mean Corpuscular Hemoglobin 27.8 pg (27.0-33.0); Mean Corpuscular Volume 84.7 fL (80.0-98.0); Monocytes Absolute Auto 1.5 X10*3/uL (0.1-1.2); Monocytes Percent Auto 19.9 % (2-11); Neutrophils Absolute Auto 5.2 x10*3/uL (2.0-8.3); Neutrophils Percent Auto 67.8 % (45-73); Platelet Count 124 X10*3/uL (160-400); Red Blood Count 3.92 X10*6/uL (4.60-5.80); Red Cell Distribution Width 19.4 % (11.0-16.0); SCAN SMEAR FLAG 1; White Blood Count 7.6 X10*3/uL (4.8-10.8)
[2023-11-26 18:01] LABS: SLIDE REVIEW VERIFIED
[2023-11-26 18:02] LABS: Alanine Aminotransferase 20 U/L (0-40); Albumin Level 3.3 g/dL (3.5-5.0); Alkaline Phosphatase 358 U/L (39-117); Anion Gap 17 (12-20); Aspartate Amino Transferase 72 U/L (5-37); Bilirubin Total 5.2 mg/dL (0.0-1.0); Blood Urea Nitrogen 8 mg/dL (9-16); C Reactive Protein 2.37 mg/dL (< or = 0.50); Calcium 9.4 mg/dL (8.4-10.2); Carbon Dioxide 26 mmol/L (22-29); Chloride 92 mmol/L (96-108); Creatinine Clr Calc Pharmacy 97.1; Estimated Glomerular Filt Rate > 60; Glucose Random 134 mg/dL (60-115); Lipase 69 U/L (8-78); Potassium 3.9 mmol/L (3.3-5.1); Sodium 131 mmol/L (135-145); Total Protein 8.8 g/dL (6.5-8.0)
[2023-11-26 18:18] LABS: Erythrocyte Sedimentation Rate 66 MM/HR (0-15)
[2023-11-26 19:51] VITALS: BP 125/82; PULSE 92; RESP 18; TEMP 37.6; O2SAT 97
[2023-11-26 20:48] LABS: Uric Acid 7.9 mg/dL (3.4-7.0)
[2023-11-26] MEDS: methylPREDNISolone acetate 80 MG VIAL INTRAARTIC (21:10)
[2023-11-26] MEDS: Lidocaine HCl 1 % MPF 5 ML VIAL 10 ML INFILTRATI (21:10)
[2023-11-26 22:16] LABS: RBC Synovial Fluid 0.136 X10*6/uL
[2023-11-26 23:09] VITALS: BP 152/88; PULSE 72; RESP 20; TEMP 37; O2SAT 96
[2023-11-26] MEDS: cefEPime HCl 2 GM in 0.9 % Sodium Chloride 50 ML IV (23:14)
[2023-11-26 23:15] LABS: INTERNATIONAL NORM RATIO 1.6 (0.9-1.1); Prothrombin Time 19.8 SEC (11.1-13.3)
[2023-11-26] MEDS: 0.9 % Sodium Chloride 1,000 ML 999 ML IV (23:15)
[2023-11-26 23:17] LABS: Partial Thromboplastin Time 33.1 SEC (26.0-36.8)
[2023-11-26 23:23] LABS: BF Shift QC OK YES; Man Diluent Bkgrd OK YES; Monocytes Synovial Fluid 8 %; Neutrophils Synovial Fluid 92 %
[2023-11-26 23:26] LABS: Lactic Acid 2.1 mmol/L (0.5-2.0)
[2023-11-26] MEDS: vancomycin/NS 2,000 MG/500 ML PLAST..BAG 250 MG IV (23:52)
[2023-11-27] VITALS (7 sets, daily range): BP systolic 142–165; BP diastolic 75–90; PULSE 91–97; RESP 12–20; TEMP 36.3–37; O2SAT 93–98; BMI 32.3
--- NOTE | 2023-11-27 00:30 | PM.IMHP ---
History of Present Illness Date of Service: 11/27/23 Chief Complaint: Knee swelling This is a 58-year-old male with pertinent history of alcoholic cirrhosis, history of PE on Eliquis, mood disorder, gastroesophageal reflux disease who presents to the emergency department for evaluation of knee pain. Patient states he started having right knee pain 3 days prior to presentation. No trauma to the right knee. It has been progressive over the last 3 days and associated with warmth and swelling. This has never happened before. He is unable to ambulate due to the pain. Denies fever, chills, nausea or vomiting. His last alcoholic drink was 1 day prior to presentation but he states he only had 1 drink. Never had alcohol withdrawal in the past. No history of IV drug use. No chest discomfort, palpitations, shortness of breath, abdominal pain, changes in urinary or bowel habits. In the emergency department, right knee joint was aspirated and patient was given empiric IV antibiotics Review of Systems Constitutional: Constitutional: Reports fatigue Cardiovascular: Cardiovascular: Reports no additional cardiovascular complaints Respiratory: Respiratory: Reports no additional respiratory complaints Gastrointestinal: Gastrointestinal: Reports no additional gastrointestinal complaints Genitourinary: Genitourinary: Reports no additional male genitourinary complaints Musculoskeletal: Musculoskeletal: Reports arthralgias, Reports joint swelling and Reports limited range of motion Endocrine: Endocrine: Reports fatigue PMFSH Medical History Pulmonary nodule 1 cm or greater in diameter Pleuritic chest pain Pulmonary embolism, bilateral Cirrhosis of liver Diabetes Alcohol use disorder, moderate, dependence Recurrent left pleural effusion Pleural effusion Pericardial effusion Tachycardia Dyspnea Hydropneumothorax Pleural effusion on right Decompensation of cirrhosis of liver Cirrhosis GERD (gastroesophageal reflux disease) Esophageal varices Chronic abdominal pain Gout Peripheral neuropathy Alcoholism Elevated LFTs Family History Mother Cancer Sister Cancer Surgical History History of abdominal paracentesis Hx of esophagogastroduodenoscopy History of thoracentesis H/O colonoscopy H/O cervical spine surgery H/O hemicolectomy Social History Household Members: Other Household Members Other:: roommate Housing: Apartment Are you a primary certified social workers in health care to a significant other at home: No Do you presently have visiting nurse or other home services: No Alcohol intake: current Alcohol intake frequency: a few times a week Alcohol type: hard liquor Patient Tobacco Use Status: Former Tobacco user Tobacco use type: Cigarette Years Smoked: 30 Smoked in Last 30 Days: Yes e-Cigarette/Vaping Use: Currently Using Second Hand Smoke Exposure: No Use of substances other than those prescribed or required for medical reasons: No Substance Use Type: Marijuana Advance Directives: Yes Advance Directives Information Provided: No Advance Directives on File: No Advance Directives Date on File: 11/27/22 Do you have a plan to hurt others: No Plan service: No Current occupational status: unemployed Meds Allergies Allergy/AdvReac Type Severity Reaction Status Date / Time No Known Drug Allergies Allergy Mild NONE Verified 11/26/23 15:29 [NO KNOWN DRUG ALLERGIES] Active Medications: Current Medications Vancomycin HCl (Vancomycin/Ns) 2,000 mg in 500 mls @ 250 mls/hr IV ONCE ONE Stop: 11/27/23 00:46 Last Admin: 11/26/23 23:52 Dose: 250 mls/hr Home Medications ?Medication ?Instructions ?Recorded ?Confirmed ?Last Taken ?Type bupropion HCl 300 mg 24 hr tablet, 300 mg PO DAILY 06/10/21 07/24/23 04/08/23 History extended release folic acid 1 mg tablet 1 mg PO DAILY 06/10/21 07/24/23 04/08/23 History thiamine HCl (vitamin B1) 100 mg 100 mg PO DAILY 06/10/21 07/24/23 04/08/23 History tablet albuterol sulfate 90 mcg/actuation 2 puff inhalation Q6H PRN 01/26/22 07/24/23 04/09/23 History aerosol inhaler (ProAir HFA) Shortness Of Breath hydroxyzine pamoate 25 mg capsule 25 - 50 mg PO DAILY PRN itching 01/26/22 07/24/23 04/08/23 History lorazepam 0.5 mg tablet 0.5 mg PO DAILY PRN anxiety attack 07/13/22 07/24/23 10/27/22 History paroxetine HCl 20 mg tablet 20 mg PO DAILY 07/13/22 07/24/23 04/08/23 History insulin glargine 100 unit/mL (3 20 unit subcut QAM PRN elevated 11/27/22 07/24/23 04/08/23 History mL) subcutaneous pen blood sugar insulin lispro 100 unit/mL 1 sliding scale dose subcut QIDACHS 03/03/23 07/24/23 03/02/23 History subcutaneous pen oxycodone 5 mg capsule 5 mg PO Q4-6H PRN Pain 04/09/23 07/24/23 Unknown History Physical Exam Vital Signs and Narrative: Vital Signs: Last Vital Signs Temp 98.6 F 11/26/23 23:09 Pulse 72 11/26/23 23:09 Resp 20 11/26/23 23:09 BP 152/88 H 11/26/23 23:09 Pulse Ox 96 11/26/23 23:09 O2 Del Method Room Air 11/26/23 23:09 BMI result Body Mass Index 32.3 Middle-aged male lying in bed in no distress Neck supple, no JVD Regular rate and rhythm, S1-S2 heard Regular breath sounds bilaterally, no wheezing or crackles appreciated Abdomen soft nontender, no guarding, no rigidity Patient is awake, alert and oriented to self, place, time and person ; no focal motor deficit Musculoskeletal: Right knee joint covered in bandage, limited range of motion No pedal edema Results Labs 11/26/23 17:32 11/26/23 17:32 Labs: Laboratory Results - last 24 hr 11/26/23 11/26/23 11/26/23 17:32 21:37 22:58 MCV 84.7 MCH 27.8 MCHC 32.8 RDW 19.4 H Plt Count 124 L MPV 9.0 L Immature Gran % (Auto) 0.7 H Neut % (Auto) 67.8 Lymph % (Auto) 10.4 L [place] % (Auto) 19.9 H Eos % (Auto) 0.3 Baso % (Auto) 0.9 Lymph # (Auto) 0.8 L [place] # (Auto) 1.5 H Eos # (Auto) 0.0 Baso # (Auto) 0.1 Abs Immat Gran (auto) 0.05 H Absolute Neuts (auto) 5.2 Absolute Nucleated RBC 0.000 Nucleated RBC % (auto) 0.0 Smear Tech's Comments VERIFIED ESR 66 H PT 19.8 H D INR 1.6 H APTT 33.1 Anion Gap 17 Estim Creat Clear Calc 97.1 Estimated GFR > 60 Random Glucose 134 H Lactic Acid 2.1 H* Uric Acid 7.9 H Calcium 9.4 Total Bilirubin 5.2 H AST 72 H ALT 20 Alkaline Phosphatase 358 H C-Reactive Protein 2.37 H Total Protein 8.8 H Albumin 3.3 L Lipase 69 Synovial Source knee R Synovial WBC 74.210 Synovial RBC 0.136 Synovial Neutrophils 92 Synovial Monocytes 8 Imaging Radiologist's Impressions: Impressions Knee X-Ray 11/26/23 16:54 IMPRESSION: Small-moderate joint effusion. No radiographic evidence of acute fracture. Assessment and Plan (1) Septic arthritis of knee: Status: Acute Plan This is a 58-year-old male with pertinent history of alcoholic cirrhosis, history of PE on Eliquis, mood disorder, gastroesophageal reflux disease who presents to the emergency department for evaluation of knee pain. #. Right knee septic arthritis: Joint aspiration done in the ER. Synovial WBC [id number] with 92% neutrophils. Will admit patient with empiric IV antibiotics and consult Infectious Disease. Follow Gram stain and cultures #. History of PE: On Eliquis #. Insulin-dependent diabetes mellitus: Reduced home basal insulin. Initiating Accu-Cheks with sliding scale insulin #. Alcoholic cirrhosis: Continue diuretics and lactulose/rifaximin. On thiamine and folate #. Gastroesophageal reflux disease: On PPI and sucralfate #. Mood disorder: Continue home mood stabilizers Med rec pending DVT prophylaxis: Eliquis Full code Admit as inpatient and will require two night minimum hospital stay for IV antibiotics (as above), which is not possible in a lesser acute setting. Specialist consult pending Quality Stroke Does the patient have a stroke diagnosis?: No VTE Prior VTE?: No VTE Risk Level:: Medical - moderate - high VTE Device Contraindication: Treatment Not Indicated VTE Drug Contraindication: N/A - Med Ordered
[2023-11-27] MEDS: Morphine Sulfate 4 MG/ML CARTRIDGE IVPUSH ×5 (00:37→20:40)
[2023-11-27 01:07] LABS: Reflex Lactate? Lactic Acid Added
[2023-11-27 06:27] LABS: Alanine Aminotransferase 17 U/L (0-40); Albumin Level 2.9 g/dL (3.5-5.0); Alkaline Phosphatase 303 U/L (39-117); Anion Gap 12 (12-20); Aspartate Amino Transferase 55 U/L (5-37); Bilirubin Total 5.1 mg/dL (0.0-1.0); Blood Urea Nitrogen 9 mg/dL (9-16); Calcium 8.4 mg/dL (8.4-10.2); Carbon Dioxide 26 mmol/L (22-29); Chloride 96 mmol/L (96-108); Creatinine Clr Calc Pharmacy 112.2; Estimated Glomerular Filt Rate > 60; Glucose Random 299 mg/dL (60-115); Potassium 3.1 mmol/L (3.3-5.1); Sodium 131 mmol/L (135-145); Total Protein 7.7 g/dL (6.5-8.0)
--- NOTE | 2023-11-27 07:22 | PC.NURSE ---
K level 3.1,NA level 131,Dr. Mathur notified
[2023-11-27 07:41] LABS: Glucose, Whole Blood 257 mg/dL (60-115)
--- NOTE | 2023-11-27 07:51 | PHA.PROG ---
Admission Date/Time: November 27, 2023 00:29 Indication: BONE AND JOINT Weight in k.13 kg Adjusted body weight in Kg: Badger body weight in Kg: Obesity Dosing Indication % IBW: Serum Creatinine - Last 168 Hours 11/26/23 11/27/23 17:32 05:16 Creatinine 1.11 0.96 Estimated CrCl and GFR - Last 168 Hours 11/26/23 11/27/23 17:32 05:16 Estim Creat Clear Calc 97.1 112.2 Estimated GFR > 60 > 60 Vancomycin Loading Dose: 2000 MG Current Vancomycin Dosing Regimen: 1250 MG Q12H Vancomycin Monitoring using AUC goal of 400 - 600 range with trough as surrogate marker: UUZ=883 TROUGH=16.1 Date and Time for next Vancomycin Level to be drawn: 11/28/2023 @1000 Pharmacist Comments on Vancomycin Plan: Vancomycin dosing will take advantage of [employer] as a clinical decision support tool that uses Bayesian modeling to calculate individual patient's pharmacokinetic parameters and forecast the patient's drug concentration time course with the target goal AUC 24 range of 400 - 600 mg/L/hr.
[2023-11-27] MEDS: cefEPime HCl 2 GM in 0.9 % Sodium Chloride 50 ML IV (07:53)
[2023-11-27] MEDS: Insulin Lispro 100 UNIT/ML 3 ML VIAL SUBCUT ×4 (07:53→20:38)
[2023-11-27] MEDS: 0.9 % Sodium Chloride Flush 3 ML SYRINGE IVFLUSH ×2 (07:55→14:25)
[2023-11-27] MEDS: Potassium Chloride ER 20 MEQ TAB.ER.PRT 40 MEQ PO (08:05)
--- NOTE | 2023-11-27 09:04 | MHC.CM.PN ---
IMM DELIVERED. PT LIVES WITH ROOMMATE. INDEPENDENT AT BASELINE. +HCP PCP DR. VALORIE GARCÍA. DP: HOME , NO SERVICES IS THE GOAL HOWEVER IF NEEDS [facility], PT IS OPEN TO A REFERRAL TO [facility]. PT HAS OWN RIDE HOME. CM WILL CONTINUE TO FOLLOW FOR ANY CHANGE IN DC PLAN/NEEDS.
--- NOTE | 2023-11-27 10:23 | PHA.MEDREC ---
Pharmacy Consult ? Medication Reconciliation Pharmacy has completed the medication reconciliation. patient states they haven't use insulin glargine in over 3 mounths because his blood sugar is normal at home. patients states hes hasn't taken lactulose in 6 months because he hasn't needed it
[2023-11-27 11:29] LABS: Glucose, Whole Blood 271 mg/dL (60-115)
--- NOTE | 2023-11-27 12:40 | P.CONOP_ITS ---
History of Present Illness HPI Consult date: 11/28/23 Chief complaint: Knee Pain Narrative: and on 11/24/23, he noticed pain in the knee and by sunday/sunday the pain and swelling was so severe he could not walk. He does have a h/o gout but has not have a huge flare up . He was seen in the ED, asp performed and he was admitted to the medical service for iv abx. He states since he started the abx the pain has improved and he is able to ambulate without pain. Review of Systems 2 Review of Systems: Yes all other systems are reviewed and are negative [facility] Past Medical History Medical History Pulmonary nodule 1 cm or greater in diameter Pleuritic chest pain Pulmonary embolism, bilateral Cirrhosis of liver Diabetes Alcohol use disorder, moderate, dependence Recurrent left pleural effusion Pleural effusion Pericardial effusion Tachycardia Dyspnea Hydropneumothorax Pleural effusion on right Decompensation of cirrhosis of liver Cirrhosis GERD (gastroesophageal reflux disease) Esophageal varices Chronic abdominal pain Gout Peripheral neuropathy Alcoholism Elevated LFTs Family History Family History Mother Cancer Sister Cancer Surgical History Surgical History History of abdominal paracentesis Hx of esophagogastroduodenoscopy History of thoracentesis H/O colonoscopy H/O cervical spine surgery H/O hemicolectomy Social History Social History Household Members: Friend(s) Household Members Other:: roommate Housing: Apartment Are you a primary care attendant to a significant other at home: No Do you presently have visiting nurse or other home services: No Alcohol intake: current Alcohol intake frequency: a few times a week Alcohol type: hard liquor Patient Tobacco Use Status: Former Tobacco user Tobacco use type: Cigarette Years Smoked: 30 e-Cigarette/Vaping Use: Currently Using Second Hand Smoke Exposure: No Substance Use Type: Marijuana Advance Directives Date on File: 11/27/22 service: No Current occupational status: unemployed Meds Allergies Allergy/AdvReac Type Severity Reaction Status Date / Time No Known Drug Allergies Allergy Mild NONE Verified 11/26/23 15:29 [NO KNOWN DRUG ALLERGIES] Active Medications: Current Medications Acetaminophen (Acetaminophen 325 Mg Tablet) 650 mg PO Q6H PRN PRN Reason: Pain, Mild (Pain Scale 1-3) Glucose (Glucose Gel 15 Gm Gel..Gram.) 15 gm PO Q15M PRN; Protocol PRN Reason: per Hypoglycemia Standing Ord. Dextrose (D10) 250 mls @ 750 mls/hr IV Q15M PRN; Protocol PRN Reason: per Hypoglycemia Standing Ord. Cefepime HCl 2 gm/ Sodium (Chloride) 50 mls @ 100 mls/hr IV Q8H [facility] Last Infusion: 11/27/23 08:46 Dose: Infused Vancomycin HCl 1,250 mg/ (Sodium Chloride) 250 mls @ 166.667 mls/hr IV Q12H [facility] Insulin Human Lispro (Insulin Lispro 100 Unit/Ml 3 Ml Vial) 0 unit SUBCUT QIDACHS [facility]; Protocol Last Admin: 11/27/23 12:22 Dose: 6 unit Melatonin (Melatonin 3 Mg Tablet) 6 mg PO BEDTIME PRN PRN Reason: Insomnia Morphine Sulfate (Morphine Sulfate 4 Mg/Ml Cartridge) 4 mg IVPUSH Q4H PRN; Protocol PRN Reason: Pain, Severe (Pain Scale 7-10) Last Admin: 11/27/23 10:47 Dose: 4 mg Ondansetron HCl (Ondansetron Hcl 4 Mg/2 Ml Vial) 4 mg IVPUSH Q8H PRN PRN Reason: Nausea and Vomiting Pharmacy Consult (Consult Rx Vancomycin Dosing) 1 each MISCELLANE DAILY PRN PRN Reason: Consult order Sodium Chloride (0.9 % Sodium Chloride Flush 3 Ml Syringe) [facility] Last Admin: 11/27/23 07:55 Dose: 3 ml Home Medications ?Medication ?Instructions ?Recorded ?Confirmed ?Last Taken ?Type bupropion HCl 300 mg 24 hr tablet, 300 mg PO DAILY 06/10/21 11/27/23 11/26/23 History extended release folic acid 1 mg tablet 1 mg PO DAILY 06/10/21 11/27/23 11/26/23 History thiamine HCl (vitamin B1) 100 mg 100 mg PO DAILY 06/10/21 11/27/23 11/26/23 History tablet albuterol sulfate 90 mcg/actuation 2 puff inhalation Q6H PRN 01/26/22 11/27/23 04/09/23 History aerosol inhaler (ProAir HFA) Shortness Of Breath hydroxyzine pamoate 25 mg capsule 50 mg PO DAILY PRN itching 01/26/22 11/27/23 04/08/23 History lorazepam 0.5 mg tablet 0.5 mg PO DAILY PRN anxiety attack 07/13/22 11/27/23 10/27/22 History paroxetine HCl 20 mg tablet 20 mg PO DAILY 07/13/22 11/27/23 11/26/23 History insulin glargine 100 unit/mL (3 20 unit subcut DAILY PRN elevated 11/27/22 11/27/23 04/08/23 History mL) subcutaneous pen blood sugar insulin lispro 100 unit/mL 1 sliding scale dose subcut QIDACHS 03/03/23 11/27/23 11/26/23 History subcutaneous pen oxycodone 5 mg capsule 5 - 10 mg PO DAILY PRN Pain 04/09/23 11/27/23 Unknown History acamprosate 333 mg tablet,delayed 333 mg PO Q8H PRN ALCOHOL 11/27/23 11/27/23 Unknown History release ABSTINENCE carvedilol 6.25 mg tablet 6.25 mg PO BIDWM 11/27/23 11/27/23 11/26/23 History lactulose 10 gram/15 mL oral 30 ml PO TID PRN hepatic 11/27/23 11/27/23 Unknown History solution encephalopathy omeprazole 40 mg capsule,delayed 40 mg PO DAILY@0630 11/27/23 11/27/23 11/26/23 History release Physical Exam 2 Vital Signs: Vital Signs: Last Vital Signs Temp 98.6 F 11/27/23 07:34 Pulse 91 11/27/23 07:34 Resp 18 11/27/23 07:34 BP 145/86 H 11/27/23 07:34 Pulse Ox 96 11/27/23 07:34 O2 Del Method Room Air 11/27/23 07:34 BMI result Body Mass Index 32.3 Extrem: Other: Rt knee without redness, mild swelling, He is able to ambulate without pain. Full ROM without pain Results Labs 11/28/23 04:57 11/28/23 04:57 Labs: Abnormal lab results 11/26/23 11/26/23 11/27/23 Range/Units 17:32 22:58 05:16 RBC 3.92 L (4.60-5.80) X10*6/uL Hgb 10.9 L (14.0-18.0) g/dl Hct 33.2 L (42.0-52.0) % RDW 19.4 H (11.0-16.0) % Plt Count 124 L (160-400) X10*3/uL MPV 9.0 L (9.4-12.4) fL Immature Gran % (Auto) 0.7 H (0.0-0.4) % Lymph % (Auto) 10.4 L (20-40) % [place] % (Auto) 19.9 H (2-11) % Lymph # (Auto) 0.8 L (1.2-4.9) X10*3/uL [place] # (Auto) 1.5 H (0.1-1.2) X10*3/uL Abs Immat Gran (auto) 0.05 H (0.00-0.03) X10*3/uL ESR 66 H (0-15) MM/HR PT 19.8 H D (11.1-13.3) SEC INR 1.6 H (0.9-1.1) Sodium 131 L 131 L (135-145) mmol/L Potassium 3.1 L D (3.3-5.1) mmol/L Chloride 92 L (96-108) mmol/L BUN 8 L (9-16) mg/dL POC Glucose (60-115) mg/dL Random Glucose 134 H 299 H (60-115) mg/dL Lactic Acid 2.1 H* (0.5-2.0) mmol/L Uric Acid 7.9 H (3.4-7.0) mg/dL Total Bilirubin 5.2 H 5.1 H (0.0-1.0) mg/dL AST 72 H 55 H (5-37) U/L Alkaline Phosphatase 358 H 303 H (39-117) U/L C-Reactive Protein 2.37 H (< or = 0.50) mg/dL Total Protein 8.8 H (6.5-8.0) g/dL Albumin 3.3 L 2.9 L (3.5-5.0) g/dL 11/27/23 11/27/23 Range/Units 07:32 11:21 RBC (4.60-5.80) X10*6/uL Hgb (14.0-18.0) g/dl Hct (42.0-52.0) % RDW (11.0-16.0) % Plt Count (160-400) X10*3/uL MPV (9.4-12.4) fL Immature Gran % (Auto) (0.0-0.4) % Lymph % (Auto) (20-40) % [place] % (Auto) (2-11) % Lymph # (Auto) (1.2-4.9) X10*3/uL [place] # (Auto) (0.1-1.2) X10*3/uL Abs Immat Gran (auto) (0.00-0.03) X10*3/uL ESR (0-15) MM/HR PT (11.1-13.3) SEC INR (0.9-1.1) Sodium (135-145) mmol/L Potassium (3.3-5.1) mmol/L Chloride (96-108) mmol/L BUN (9-16) mg/dL POC Glucose 257 H 271 H (60-115) mg/dL Random Glucose (60-115) mg/dL Lactic Acid (0.5-2.0) mmol/L Uric Acid (3.4-7.0) mg/dL Total Bilirubin (0.0-1.0) mg/dL AST (5-37) U/L Alkaline Phosphatase (39-117) U/L C-Reactive Protein (< or = 0.50) mg/dL Total Protein (6.5-8.0) g/dL Albumin (3.5-5.0) g/dL H & H 11/26/23 Range/Units 17:32 Hgb 10.9 L (14.0-18.0) g/dl Hct 33.2 L (42.0-52.0) % Coagulation 11/26/23 Range/Units 22:58 INR 1.6 H (0.9-1.1) All other labs normal. Assessment and Plan (1) Swelling of right knee joint: Status: Acute Plan Right knee does not appear to be septic with lack of pain, redness and warmth -no surgical intervention -ROM -COmpress -cultures pending Procedures Date of Service Date of Service: 11/28/23
--- NOTE | 2023-11-27 12:51 | PM.EVENT ---
Event Note Date of Service: 11/27/23 Event Note: Seen and evaluated this morning Pain better controlled have some range of motion in the knee NO crystals seen in synovial fluids Orthopedics doesnt think this is Septic arthritis Will continue IV antibotics for now pending final cultures Pending ID eval Time Spent With Patient Time: Total time managing care of this patient today ____ minutes.
[2023-11-27] MEDS: vancomycin HCL 1,250 MG in 0.9 % Sodium Chloride 250 ML 166.67 MG IV (13:42)
[2023-11-27] MEDS: Apixaban 5 MG TABLET PO ×2 (14:25→20:37)
[2023-11-27] MEDS: carvediloL 6.25 MG TABLET PO (16:24)
[2023-11-27] MEDS: cefTRIAXone sodium 1 GM in 0.9 % Sodium Chloride 50 ML IV (16:25)
[2023-11-27 16:29] LABS: Glucose, Whole Blood 318 mg/dL (60-115)
[2023-11-27 20:29] LABS: Glucose, Whole Blood 248 mg/dL (60-115)
[2023-11-27] MEDS: rifAXIMin 550 MG TABLET PO (20:37)
[2023-11-28] MEDS: vancomycin HCL 1,250 MG in 0.9 % Sodium Chloride 250 ML 166.67 MG IV (00:39)
[2023-11-28] MEDS: 0.9 % Sodium Chloride Flush 3 ML SYRINGE IVFLUSH ×2 (00:40→08:31)
[2023-11-28 04:00] VITALS: BP 109/66; PULSE 86; RESP 18; TEMP 36.3; O2SAT 96
[2023-11-28] MEDS: Omeprazole 40 MG CAPSULE.DR PO (05:29)
[2023-11-28 05:49] LABS: Hematocrit 30.7 % (42.0-52.0); Hemoglobin 9.9 g/dl (14.0-18.0); Mean Corpuscular HGB Conc 32.2 g/dl (31.0-36.0); Mean Corpuscular Hemoglobin 28.1 pg (27.0-33.0); Mean Corpuscular Volume 87.2 fL (80.0-98.0); Platelet Count 136 X10*3/uL (160-400); Red Blood Count 3.52 X10*6/uL (4.60-5.80); Red Cell Distribution Width 19.5 % (11.0-16.0); White Blood Count 10.5 X10*3/uL (4.8-10.8)
[2023-11-28 06:05] LABS: Anion Gap 13 (12-20); Blood Urea Nitrogen 11 mg/dL (9-16); Calcium 8.6 mg/dL (8.4-10.2); Carbon Dioxide 26 mmol/L (22-29); Chloride 101 mmol/L (96-108); Creatinine Clr Calc Pharmacy 136.4; Estimated Glomerular Filt Rate > 60; Glucose Random 220 mg/dL (60-115); Sodium 136 mmol/L (135-145)
[2023-11-28 06:56] VITALS: BP 139/69; PULSE 86; RESP 17; TEMP 36.6; O2SAT 94
[2023-11-28 07:09] LABS: Glucose, Whole Blood 199 mg/dL (60-115)
[2023-11-28] MEDS: Insulin Lispro 100 UNIT/ML 3 ML VIAL SUBCUT ×2 (08:28→12:15)
[2023-11-28] MEDS: rifAXIMin 550 MG TABLET PO (08:29)
[2023-11-28] MEDS: buPROPion HCl XL 300 MG TAB.ER.24H PO (08:29)
[2023-11-28] MEDS: Folic Acid 1 MG TABLET PO (08:29)
[2023-11-28 08:30] VITALS: BP 139/69; PULSE 86
[2023-11-28] MEDS: Thiamine HCL 100 MG TABLET PO (08:30)
[2023-11-28] MEDS: Spironolactone 25 MG TABLET 200 MG PO (08:30)
[2023-11-28] MEDS: carvediloL 6.25 MG TABLET PO (08:30)
[2023-11-28] MEDS: Apixaban 5 MG TABLET PO (08:30)
[2023-11-28] MEDS: Furosemide 40 MG TABLET 80 MG PO (08:30)
[2023-11-28] MEDS: Morphine Sulfate 4 MG/ML CARTRIDGE IVPUSH (08:42)
--- NOTE | 2023-11-28 10:31 | PM.DS ---
DS: Providers Provider Date of Service: 11/28/23 Date of admission: 11/27/23 00:29 Primary care physician: Martin Avilez MD Consults: 11/27/23 00:45 Consult to Infectious Diseases Routine Consulting Provider: [facility] Reason for consultation: knee septic arthritis 11/27/23 08:00 Consult to Orthopedics Routine Consulting Provider: [facility] Orth[facility] Surgeons Reason for consultation: septic arthirtis DS: Diagnosis Discharge Diagnosis (1) Septic arthritis of knee: Status: Acute DS: Summary Hospital Course Hospital Course: from initial hpi: 58-year-old male with pertinent history of alcoholic cirrhosis, history of PE on Eliquis, mood disorder, gastroesophageal reflux disease who presents to the emergency department for evaluation of knee pain. Patient states he started having right knee pain 3 days prior to presentation. No trauma to the right knee. It has been progressive over the last 3 days and associated with warmth and swelling. This has never happened before. He is unable to ambulate due to the pain. Denies fever, chills, nausea or vomiting. His last alcoholic drink was 1 day prior to presentation but he states he only had 1 drink. Never had alcohol withdrawal in the past. No history of IV drug use. No chest discomfort, palpitations, shortness of breath, abdominal pain, changes in urinary or bowel habits. In the emergency department, right knee joint was aspirated and patient was given empiric IV antibiotics hospital course: Patient initially admitted for concern for right knee septic arthritis due to 74,000 PMNs in right knee arthrocentesis. Was empirically covered with vancomycin ceftriaxone. G stain and cultures were negative. Was seen by Orthopedics and Infectious Disease who felt this was unlikely to be septic arthritis and more likely inflammatory. Symptoms resolved. Patient will be discharged home and should follow up with Rheumatology as outpatient. He can use anti-inflammatories as needed. He should follow-up Lyme studies and uric acid. For history of pulmonary embolism was continued on Eliquis. For diabetes was continue basal bolus insulin. For alcoholic cirrhosis was continued on Lasix, lactulose, rifaximin. For GERD was continued on PPI and Carafate. For mood disorder was continued on Atarax, Paxil, Ativan. Patient is feeling better will be discharged home. Time Attestation Discharge Coordination Time (in mins): 34 Quality: Safe Use of Opioids Does Pt have an Active Cancer Diagnosis on the Problem List?: No Quality: Stroke Does the patient have a stroke diagnosis?: No Physical Exam Vital Signs: Vital Signs: Last Vital Signs Temp 97.8 F 11/28/23 06:56 Pulse 86 11/28/23 08:30 Resp 17 11/28/23 06:56 BP 139/69 11/28/23 08:30 Pulse Ox 94 11/28/23 06:56 O2 Del Method Room Air 11/28/23 06:56 BMI result Body Mass Index 32.3 General: AO X 3, no acute distress Resp: CTA bilateral, no accessory muscles used CVS: S1,S2,RRR GI: soft, non tender, non distended Neuro: motor grossly intact, alert Psych: appropriate affect, appropriate insight DS: Data Data Completed and Pending Completed studies during hospitalization [Text1]: Procedures Control Bleeding in Gastrointestinal Tract, Via Natural or Artificial Opening Endoscopic (11/01/21) Detoxification Services for Substance Abuse Treatment (12/06/21) Drainage of Left Pleural Cavity, Percutaneous Approach (04/09/23) Drainage of Peritoneal Cavity, Percutaneous Approach (11/27/22) Drainage of Right Pleural Cavity, Percutaneous Approach (12/06/21) Introduction of Mineral-based Topical Hemostatic Agent into Upper GI, Via Natural or Artificial Opening Endoscopic, [employer] (11/27/22) Occlusion of Esophageal Vein with Extraluminal Device, Via Natural or Artificial Opening Endoscopic (11/27/22) Labs on day of discharge: Laboratory Results - last 24 hr 11/27/23 11/27/23 11/27/23 11:21 16:25 20:21 WBC RBC Hgb Hct MCV MCH MCHC RDW Plt Count MPV Absolute Nucleated RBC Nucleated RBC % (auto) Sodium Potassium Chloride Carbon Dioxide Anion Gap BUN Creatinine Estim Creat Clear Calc Estimated GFR POC Glucose 271 H 318 H 248 H Random Glucose Calcium 11/28/23 11/28/23 04:57 07:05 WBC 10.5 RBC 3.52 L Hgb 9.9 L Hct 30.7 L MCV 87.2 MCH 28.1 MCHC 32.2 RDW 19.5 H Plt Count 136 L MPV 10.0 Absolute Nucleated RBC 0.000 Nucleated RBC % (auto) 0.0 Sodium 136 Potassium 4.0 D Chloride 101 Carbon Dioxide 26 Anion Gap 13 BUN 11 Creatinine 0.79 Estim Creat Clear Calc 136.4 Estimated GFR > 60 POC Glucose 199 H Random Glucose 220 H Calcium 8.6 Preliminary micro results at discharge 11/26/23 21:37 Anaerobic Culture - Preliminary Knee aspirate No growth to date. Joint Fluid Culture - Preliminary Culture in progress. 11/26/23 22:58 Blood Culture - Preliminary Blood - Venous No growth after 24 hours. 11/26/23 22:58 Blood Culture - Preliminary Blood - Venous No growth after 24 hours. Discharge Plan Discharge Anticipated Discharge Date/Time: 11/28/23 10:28 Patient Disposition: Home, Self-Care Discharge Diagnosis: inflammatory arthritis Referrals: Martin Avilez MD [Primary Care Provider] - 1 Week Lyubov Caceres MD [Physician] - 1 Week (inflamamtory arthritis) Discharge Medications: Continued spironolactone 100 mg tablet 200 mg PO DAILY 90 Days Qty: 180 0RF Hold Instructions: Check with nephrology before restarting furosemide 40 mg tablet 80 mg PO DAILY 90 Days Qty: 180 0RF Hold Instructions: Check with nephrology before restarting Eliquis 5 mg tablet 5 mg PO BID Qty: 56 2RF Xifaxan 550 mg tablet 550 mg PO BID Qty: 56 0RF paroxetine HCl 20 mg tablet 20 mg PO DAILY oxycodone 5 mg capsule 5 - 10 mg PO DAILY PRN (Reason: Pain) acamprosate 333 mg tablet,delayed release (DR/EC) 333 mg PO Q8H PRN (Reason: ALCOHOL ABSTINENCE) carvedilol 6.25 mg tablet 6.25 mg PO BIDWM Rx Instructions: must administer with a meal/food omeprazole 40 mg capsule,delayed release(DR/EC) 40 mg PO DAILY@0630 lactulose 10 gram/15 mL solution 30 ml PO TID PRN (Reason: hepatic encephalopathy) ondansetron 4 mg tablet,disintegrating 4 mg PO Q8H PRN (Reason: nausea and vomiting) Qty: 14 0RF (DME) FreeStyle Lite Strips Strip See Rx Instructions .ROUTE .MEDSUPPLY Qty: 100 2RF Rx Instructions: QID (DME) lancets Misc See Rx Instructions .ROUTE .MEDSUPPLY Qty: 200 2RF Rx Instructions: 4 times daily (DME) blood-glucose meter [FreeStyle Lite Meter] Kit See Rx Instructions .ROUTE .MEDSUPPLY Qty: 1 0RF Rx Instructions: As directed (DME) pen needle, diabetic [Pen Needle] 31 gauge x 5/16 needle See Rx Instructions .ROUTE .MEDSUPPLY Qty: 1200 0RF Rx Instructions: As directed insulin glargine 100 unit/mL (3 mL) insulin pen 20 unit subcut DAILY PRN (Reason: elevated blood sugar) insulin lispro 100 unit/mL insulin pen 1 sliding scale dose subcut QIDACHS Protocol: Insulin Correction Scale Less than or equal to 110 ---- Give (units): 0 111 to 150 Give (units): 0 151 to 200 Give (units): 2 201 to 250 Give (units): 4 251 to 300 Give (units): 6 301 to 350 Give (units): 8 Greater than 350 Give (units): 10 Call MD if Blood Glucose > : 350 hydroxyzine pamoate 25 mg capsule 50 mg PO DAILY PRN (Reason: itching) Rx Instructions: ITCHING/ANXIETY albuterol sulfate [ProAir HFA] 90 mcg/actuation HFA aerosol inhaler 2 puff inhalation Q6H PRN (Reason: Shortness Of Breath) folic acid 1 mg tablet 1 mg PO DAILY bupropion HCl 300 mg tablet extended release 24 hr 300 mg PO DAILY thiamine HCl (vitamin B1) 100 mg tablet 100 mg PO DAILY lorazepam 0.5 mg tablet 0.5 mg PO DAILY PRN (Reason: anxiety attack) Discharge Orders: Discharge Order (Routine); Ordered 11/28/23 Ordered By: Robert Casas Diet: Advance to usual diet Activity on Discharge: As tolerated Stand Alone Forms: Patient Portal Discharge page Print Language: Kiswahili Care Plan Goals: maange inflammatory arthritis Health Concerns: Inflammatory arthritis Plan of Treatment: Follow-up arthrocentesis studies, can use anti-inflammatories as needed, follow-up with Rheumatology Assessment: See above
--- NOTE | 2023-11-28 10:45 | MHC.CM.PN ---
Addendum entered by Delores Leiva 11/28/23 14:12: PT HAS DECIDED TO LEAVE AMA Addendum entered by Delores Leiva 11/28/23 12:13: DC HAS BEEN CANCELLED Original Note: DP: PT HAS BEEN MEDICALLY CLEARED FOR DC HOME, NO SERVICES. PT HAS OWN RIDE HOME
[2023-11-28 11:05] LABS: Glucose, Whole Blood 243 mg/dL (60-115)
[2023-11-28 11:11] LABS: Vancomycin Random 11.1 mcg/mL (15-20)
--- NOTE | 2023-11-28 11:28 | HE.PHANOTE ---
RE: VANCO DOSING Random came back as 11.1. Dose is increased to 1250 mg q8h, next random is scheduled @1000 on 11/29/23.
--- NOTE | 2023-11-28 11:36 | HO.PM.IMPN ---
Subjective Subjective Date of Service: 11/28/23 Interval History: right knee feeling better Physical Exam Vital Signs: Vital Signs: Last Vital Signs Temp 97.8 F 11/28/23 06:56 Pulse 86 11/28/23 08:30 Resp 17 11/28/23 06:56 BP 139/69 11/28/23 08:30 Pulse Ox 94 11/28/23 06:56 O2 Del Method Room Air 11/28/23 06:56 BMI result Body Mass Index 32.3 General: AO X 3, no acute distress Resp: CTA bilateral, no accessory muscles used CVS: S1,S2,RRR GI: soft, non tender, non distended Neuro: motor grossly intact, alert Psych: appropriate affect, appropriate insight Objective Data Active Medications Acamprosate (Acamprosate Calcium 333 Mg Tablet.Dr) 333 mg PO Q8H PRN PRN Reason: ALCOHOL ABSTINENCE Acetaminophen (Acetaminophen 325 Mg Tablet) 650 mg PO Q6H PRN PRN Reason: Pain, Mild (Pain Scale 1-3) Albuterol Sulfate (Albuterol Sulfate 90 Mcg 8 Gm Inhaler) 2 puff INHALE Q6H PRN PRN Reason: Shortness Of Breath Apixaban (Apixaban 5 Mg Tablet) 5 mg PO BID [facility] Last Admin: 11/28/23 08:30 Dose: 5 mg Documented By: JOSE Bupropion HCl (Bupropion Hcl Xl 300 Mg Tab.Er.24h) 300 mg PO DAILY [facility] Last Admin: 11/28/23 08:29 Dose: 300 mg Documented By: JOSE Carvedilol (Carvedilol 6.25 Mg Tablet) 6.25 mg PO BIDWM [facility]; Protocol Last Admin: 11/28/23 08:30 Dose: 6.25 mg Documented By: JOSE Folic Acid (Folic Acid 1 Mg Tablet) 1 mg PO DAILY [facility] Last Admin: 11/28/23 08:29 Dose: 1 mg Documented By: JOSE Furosemide (Furosemide 40 Mg Tablet) 80 mg PO DAILY [facility]; Protocol Last Admin: 11/28/23 08:30 Dose: 80 mg Documented By: JOSE Glucose (Glucose Gel 15 Gm Gel..Gram.) 15 gm PO Q15M PRN; Protocol PRN Reason: per Hypoglycemia Standing Ord. Hydroxyzine HCl (Hydroxyzine Hcl 50 Mg Tablet) 50 mg PO DAILY PRN PRN Reason: itching Dextrose (D10) 250 mls @ 750 mls/hr IV Q15M PRN; Protocol PRN Reason: per Hypoglycemia Standing Ord. Ceftriaxone Sodium 1 gm/ (Sodium Chloride) 50 mls @ 100 mls/hr IV Q24H [facility] Last Infusion: 11/27/23 17:03 Dose: Infused Documented By: TYRONE Insulin Glargine (Insulin Glargine,Hum.Rec.Anlog 100 Unit/Ml 10 Ml Vial) 20 unit SUBCUT DAILY PRN PRN Reason: elevated blood sugar Insulin Human Lispro (Insulin Lispro 100 Unit/Ml 3 Ml Vial) 0 unit SUBCUT QIDACHS [facility]; Protocol Last Admin: 11/28/23 08:28 Dose: 2 unit Documented By: JOSE Lactulose (Lactulose 20 Gm/30 Ml Solution) 20 gm PO TID PRN PRN Reason: hepatic encephalopathy Lorazepam (Lorazepam 0.5 Mg Tablet) 0.5 mg PO DAILY PRN PRN Reason: anxiety attack Melatonin (Melatonin 3 Mg Tablet) 6 mg PO BEDTIME PRN PRN Reason: Insomnia Morphine Sulfate (Morphine Sulfate 4 Mg/Ml Cartridge) 4 mg IVPUSH Q4H PRN; Protocol PRN Reason: Pain, Severe (Pain Scale 7-10) Last Admin: 11/28/23 08:42 Dose: 4 mg Documented By: JOSE Omeprazole (Omeprazole 40 Mg Capsule.Dr) 40 mg PO DAILY@0630 [facility] Last Admin: 11/28/23 05:29 Dose: 40 mg Documented By: JESUS Ondansetron HCl (Ondansetron Hcl 4 Mg/2 Ml Vial) 4 mg IVPUSH Q8H PRN PRN Reason: Nausea and Vomiting Rifaximin (Rifaximin 550 Mg Tablet) 550 mg PO BID [facility] Last Admin: 11/28/23 08:29 Dose: 550 mg Documented By: JOSE Sodium Chloride (0.9 % Sodium Chloride Flush 3 Ml Syringe) 3 ml IVFLUSH QSHIFT [facility] Last Admin: 11/28/23 08:31 Dose: 3 ml Documented By: JOSE Spironolactone (Spironolactone 25 Mg Tablet) 200 mg PO DAILY [facility]; Protocol Last Admin: 11/28/23 08:30 Dose: 200 mg Documented By: JOSE Thiamine HCl (Thiamine Hcl 100 Mg Tablet) 100 mg PO DAILY [facility] Last Admin: 11/28/23 08:30 Dose: 100 mg Documented By: JOSE Labs 11/28/23 04:57 11/28/23 04:57 Labs: Laboratory Results - last 24 hr 11/27/23 11/27/23 11/28/23 16:25 20:21 04:57 MCV 87.2 MCH 28.1 MCHC 32.2 RDW 19.5 H Plt Count 136 L MPV 10.0 Absolute Nucleated RBC 0.000 Nucleated RBC % (auto) 0.0 Anion Gap 13 Estim Creat Clear Calc 136.4 Estimated GFR > 60 POC Glucose 318 H 248 H Random Glucose 220 H Calcium 8.6 Random Vancomycin 11/28/23 11/28/23 11/28/23 07:05 10:19 10:57 MCV MCH MCHC RDW Plt Count MPV Absolute Nucleated RBC Nucleated RBC % (auto) Anion Gap Estim Creat Clear Calc Estimated GFR POC Glucose 199 H 243 H Random Glucose Calcium Random Vancomycin 11.1 L Microbiology Microbiology Results: Microbiology 11/26/23 21:37 Gram Stain - Final Knee aspirate Anaerobic Culture - Preliminary Culture in progress. Fluid Crystals - Final Joint Fluid Culture - Preliminary Gram negative guerrero 11/26/23 22:58 Blood Culture - Preliminary Blood - Venous No growth after 24 hours. 11/26/23 22:58 Blood Culture - Preliminary Blood - Venous No growth after 24 hours. Assessment and Plan (1) Septic arthritis of knee, right: Status: Acute Plan 58M PMH alcoholic cirrhosis, history of PE on Eliquis, mood disorder, gastroesophageal reflux disease who presented to the emergency department for evaluation of right knee pain. Right knee septic arthritis: Joint aspiration done in the ER. Synovial WBC [id number] with 92% neutrophils. gram stain of aspirate growing gnr follow up id and ortho dced vanc continue rocephin History of PE Eliquis Insulin-dependent diabetes mellitus insulin sliding scale Alcoholic cirrhosis Continue diuretics and lactulose/rifaximin. On thiamine and folate portal hypertensive gastropathy On PPI and sucralfate DVT prophylaxis: Eliquis Full code reason for continued hospitalization:iv abx for septic arthritis Quality Stroke Does the patient have a stroke diagnosis?: No VTE Prior VTE?: No VTE Risk Level:: Medical - moderate - high VTE Device Contraindication: Treatment Not Indicated VTE Drug Contraindication: N/A - Med Ordered
--- NOTE | 2023-11-28 14:00 | PM.EVENT ---
Event Note Date of Service: 11/28/23 Event Note: Dr. Mosher reviewed the labs and saw the patient Offered to bring the patient to the OR for arthroscopic lavage The patient declines stating that he needs to go home to take care of some things Will continue to follow if patient does not leave AMA Time Spent With Patient Time: Total time managing care of this patient today ____ minutes.
--- NOTE | 2023-11-28 14:03 | P.DS_ITS ---
DS: Providers Provider Date of Service: 11/28/23 Date of admission: 11/27/23 00:29 Primary care physician: Martin Avilez MD Consults: 11/27/23 00:45 Consult to Infectious Diseases Routine Consulting Provider: [facility] Reason for consultation: knee septic arthritis 11/27/23 08:00 Consult to Orthopedics Routine Consulting Provider: [facility] Reason for consultation: septic arthirtis DS: Diagnosis Discharge Diagnosis (1) Septic arthritis of knee, right: Status: Acute DS: Summary Hospital Course Hospital Course: from initial hpi: 58-year-old male with pertinent history of alcoholic cirrhosis, history of PE on Eliquis, mood disorder, gastroesophageal reflux disease who presents to the emergency department for evaluation of knee pain. Patient states he started having right knee pain 3 days prior to presentation. No trauma to the right knee. It has been progressive over the last 3 days and associated with warmth and swelling. This has never happened before. He is unable to ambulate due to the pain. Denies fever, chills, nausea or vomiting. His last alcoholic drink was 1 day prior to presentation but he states he only had 1 drink. Never had alcohol withdrawal in the past. No history of IV drug use. No chest discomfort, palpitations, shortness of breath, abdominal pain, changes in urinary or bowel habits. In the emergency department, right knee joint was aspirated and patient was given empiric IV antibiotics hospital course: Patient admitted for right knee septic arthritis with 74,000 PMNs and GNR in right knee arthrocentesis. Was empirically covered with vancomycin ceftriaxone. Final culture still pending, however, patient wishes to leave against medical advice he has aware of the risks of doing so including . He will be discharged on 2 weeks of levofloxacin and final results should be followed up.. For history of pulmonary embolism was continued on Eliquis. For diabetes was continue basal bolus insulin. For alcoholic cirrhosis was continued on Lasix, lactulose, rifaximin. For GERD was continued on PPI and Carafate. For mood disorder was continued on Atarax, Paxil, Ativan. Time Attestation Discharge Coordination Time (in mins): 33 Quality: Safe Use of Opioids Does Pt have an Active Cancer Diagnosis on the Problem List?: No Quality: Stroke Does the patient have a stroke diagnosis?: No Physical Exam Vital Signs: Vital Signs: Last Vital Signs Temp 97.8 F 11/28/23 06:56 Pulse 86 11/28/23 08:30 Resp 17 11/28/23 06:56 BP 139/69 11/28/23 08:30 Pulse Ox 94 11/28/23 06:56 O2 Del Method Room Air 11/28/23 06:56 BMI result Body Mass Index 32.3 DS: Data Data Completed and Pending Completed studies during hospitalization [Text1]: Procedures Control Bleeding in Gastrointestinal Tract, Via Natural or Artificial Opening Endoscopic (11/01/21) Detoxification Services for Substance Abuse Treatment (12/06/21) Drainage of Left Pleural Cavity, Percutaneous Approach (04/09/23) Drainage of Peritoneal Cavity, Percutaneous Approach (11/27/22) Drainage of Right Pleural Cavity, Percutaneous Approach (12/06/21) Introduction of Mineral-based Topical Hemostatic Agent into Upper GI, Via Natural or Artificial Opening Endoscopic, [employer] (11/27/22) Occlusion of Esophageal Vein with Extraluminal Device, Via Natural or Artificial Opening Endoscopic (11/27/22) Labs on day of discharge: Laboratory Results - last 24 hr 11/27/23 11/27/23 11/28/23 16:25 20:21 04:57 WBC 10.5 RBC 3.52 L Hgb 9.9 L Hct 30.7 L MCV 87.2 MCH 28.1 MCHC 32.2 RDW 19.5 H Plt Count 136 L MPV 10.0 Absolute Nucleated RBC 0.000 Nucleated RBC % (auto) 0.0 Sodium 136 Potassium 4.0 D Chloride 101 Carbon Dioxide 26 Anion Gap 13 BUN 11 Creatinine 0.79 Estim Creat Clear Calc 136.4 Estimated GFR > 60 POC Glucose 318 H 248 H Random Glucose 220 H Calcium 8.6 Random Vancomycin 11/28/23 11/28/23 11/28/23 07:05 10:19 10:57 WBC RBC Hgb Hct MCV MCH MCHC RDW Plt Count MPV Absolute Nucleated RBC Nucleated RBC % (auto) Sodium Potassium Chloride Carbon Dioxide Anion Gap BUN Creatinine Estim Creat Clear Calc Estimated GFR POC Glucose 199 H 243 H Random Glucose Calcium Random Vancomycin 11.1 L Preliminary micro results at discharge 11/26/23 21:37 Anaerobic Culture - Preliminary Knee aspirate Culture in progress. Joint Fluid Culture - Preliminary Gram negative guerrero 11/26/23 22:58 Blood Culture - Preliminary Blood - Venous No growth after 24 hours. 11/26/23 22:58 Blood Culture - Preliminary Blood - Venous No growth after 24 hours. Discharge Plan Discharge Anticipated Discharge Date/Time: 11/28/23 10:28 Patient Disposition: Left Against Medical Advice Discharge Diagnosis: septic arthritis Referrals: Martin Avilez MD [Primary Care Provider] - 1 Week Discharge Medications: New levofloxacin 500 mg tablet 500 mg PO DAILY Qty: 14 0RF Continued spironolactone 100 mg tablet 200 mg PO DAILY 90 Days Qty: 180 0RF Hold Instructions: Check with nephrology before restarting furosemide 40 mg tablet 80 mg PO DAILY 90 Days Qty: 180 0RF Hold Instructions: Check with nephrology before restarting Eliquis 5 mg tablet 5 mg PO BID Qty: 56 2RF Xifaxan 550 mg tablet 550 mg PO BID Qty: 56 0RF paroxetine HCl 20 mg tablet 20 mg PO DAILY oxycodone 5 mg capsule 5 - 10 mg PO DAILY PRN (Reason: Pain) acamprosate 333 mg tablet,delayed release (DR/EC) 333 mg PO Q8H PRN (Reason: ALCOHOL ABSTINENCE) carvedilol 6.25 mg tablet 6.25 mg PO BIDWM Rx Instructions: must administer with a meal/food omeprazole 40 mg capsule,delayed release(DR/EC) 40 mg PO DAILY@0630 lactulose 10 gram/15 mL solution 30 ml PO TID PRN (Reason: hepatic encephalopathy) ondansetron 4 mg tablet,disintegrating 4 mg PO Q8H PRN (Reason: nausea and vomiting) Qty: 14 0RF (DME) FreeStyle Lite Strips Strip See Rx Instructions .ROUTE .MEDSUPPLY Qty: 100 2RF Rx Instructions: QID (DME) lancets Misc See Rx Instructions .ROUTE .MEDSUPPLY Qty: 200 2RF Rx Instructions: 4 times daily (DME) blood-glucose meter [FreeStyle Lite Meter] Kit See Rx Instructions .ROUTE .MEDSUPPLY Qty: 1 0RF Rx Instructions: As directed (DME) pen needle, diabetic [Pen Needle] 31 gauge x 5/16 needle See Rx Instructions .ROUTE .MEDSUPPLY Qty: 1200 0RF Rx Instructions: As directed insulin glargine 100 unit/mL (3 mL) insulin pen 20 unit subcut DAILY PRN (Reason: elevated blood sugar) insulin lispro 100 unit/mL insulin pen 1 sliding scale dose subcut QIDACHS Protocol: Insulin Correction Scale Less than or equal to 110 ---- Give (units): 0 111 to 150 Give (units): 0 151 to 200 Give (units): 2 201 to 250 Give (units): 4 251 to 300 Give (units): 6 301 to 350 Give (units): 8 Greater than 350 Give (units): 10 Call MD if Blood Glucose > : 350 hydroxyzine pamoate 25 mg capsule 50 mg PO DAILY PRN (Reason: itching) Rx Instructions: ITCHING/ANXIETY albuterol sulfate [ProAir HFA] 90 mcg/actuation HFA aerosol inhaler 2 puff inhalation Q6H PRN (Reason: Shortness Of Breath) folic acid 1 mg tablet 1 mg PO DAILY bupropion HCl 300 mg tablet extended release 24 hr 300 mg PO DAILY thiamine HCl (vitamin B1) 100 mg tablet 100 mg PO DAILY lorazepam 0.5 mg tablet 0.5 mg PO DAILY PRN (Reason: anxiety attack) Discharge Orders: Discharge Order (Routine); Ordered 11/28/23 Ordered By: Robert Casas Diet: Advance to usual diet Activity on Discharge: As tolerated Stand Alone Forms: Patient Portal Discharge page Print Language: [place] Care Plan Goals: septic arthtitis Health Concerns: septic arthritis Plan of Treatment: Follow-up arthrocentesis studies, gema 2 weeks Assessment: See above
[2023-11-28 15:27] LABS: Uric Acid Synovial Fluid 6.8
[2023-11-28 21:22] LABS: Lyme Abs Screen <0.90 index
--- NOTE | 2023-11-28 23:17 | P.CNID_ITS ---
History of Present Illness Data of Consult Service Date: 11/27/23 Requesting physician: Robert Casas Primary Care Provider: Martin Avilez MD [facility] Reason for consult: septic right knee He presents with three days right knee pain and swelling. He describes no fever or chills. Aspirate finally grew gram negative rods. He wants to go AMA. Review of Systems 2 Review of Systems: Yes all other systems are reviewed and are negative PMFSH Past Medical History Medical History Pulmonary nodule 1 cm or greater in diameter Pleuritic chest pain Pulmonary embolism, bilateral Cirrhosis of liver Diabetes Alcohol use disorder, moderate, dependence Recurrent left pleural effusion Pleural effusion Pericardial effusion Tachycardia Dyspnea Hydropneumothorax Pleural effusion on right Decompensation of cirrhosis of liver Cirrhosis GERD (gastroesophageal reflux disease) Esophageal varices Chronic abdominal pain Gout Peripheral neuropathy Alcoholism Elevated LFTs Family History Family History Mother Cancer Sister Cancer Family history: reviewed and not pertinent Surgical History Surgical History History of abdominal paracentesis Hx of esophagogastroduodenoscopy History of thoracentesis H/O colonoscopy H/O cervical spine surgery H/O hemicolectomy Social History Social History Household Members: Friend(s) Household Members Other:: roommate Housing: Apartment Are you a primary wound care center consultant to a significant other at home: No Do you presently have visiting nurse or other home services: No Alcohol intake: current Alcohol intake frequency: a few times a week Alcohol type: hard liquor Patient Tobacco Use Status: Former Tobacco user Tobacco use type: Cigarette Years Smoked: 30 e-Cigarette/Vaping Use: Currently Using Second Hand Smoke Exposure: No Substance Use Type: Marijuana Advance Directives Date on File: 11/27/22 service: No Current occupational status: unemployed Meds Allergies Allergy/AdvReac Type Severity Reaction Status Date / Time No Known Drug Allergies Allergy Mild NONE Verified 11/26/23 15:29 [NO KNOWN DRUG ALLERGIES] Home Medications ?Medication ?Instructions ?Recorded ?Confirmed ?Last Taken ?Type bupropion HCl 300 mg 24 hr tablet, 300 mg PO DAILY 06/10/21 11/27/23 11/26/23 History extended release folic acid 1 mg tablet 1 mg PO DAILY 06/10/21 11/27/23 11/26/23 History thiamine HCl (vitamin B1) 100 mg 100 mg PO DAILY 06/10/21 11/27/23 11/26/23 History tablet albuterol sulfate 90 mcg/actuation 2 puff inhalation Q6H PRN 01/26/22 11/27/23 04/09/23 History aerosol inhaler (ProAir HFA) Shortness Of Breath hydroxyzine pamoate 25 mg capsule 50 mg PO DAILY PRN itching 01/26/22 11/27/23 04/08/23 History lorazepam 0.5 mg tablet 0.5 mg PO DAILY PRN anxiety attack 07/13/22 11/27/23 10/27/22 History paroxetine HCl 20 mg tablet 20 mg PO DAILY 07/13/22 11/27/23 11/26/23 History insulin glargine 100 unit/mL (3 20 unit subcut DAILY PRN elevated 11/27/22 11/27/23 04/08/23 History mL) subcutaneous pen blood sugar insulin lispro 100 unit/mL 1 sliding scale dose subcut QIDACHS 03/03/23 11/27/23 11/26/23 History subcutaneous pen oxycodone 5 mg capsule 5 - 10 mg PO DAILY PRN Pain 04/09/23 11/27/23 Unknown History acamprosate 333 mg tablet,delayed 333 mg PO Q8H PRN ALCOHOL 11/27/23 11/27/23 Unknown History release ABSTINENCE carvedilol 6.25 mg tablet 6.25 mg PO BIDWM 11/27/23 11/27/23 11/26/23 History lactulose 10 gram/15 mL oral 30 ml PO TID PRN hepatic 11/27/23 11/27/23 Unknown History solution encephalopathy omeprazole 40 mg capsule,delayed 40 mg PO DAILY@0630 11/27/23 11/27/23 11/26/23 History release Physical Exam 2 Vital Signs: Vital Signs: Last Vital Signs Temp 97.8 F 11/28/23 06:56 Pulse 86 11/28/23 08:30 Resp 17 11/28/23 06:56 BP 139/69 11/28/23 08:30 Pulse Ox 94 11/28/23 06:56 O2 Del Method Room Air 11/28/23 06:56 BMI result Body Mass Index 32.3 Extrem: Other: right knee swelling Results Labs 11/28/23 04:57 11/28/23 04:57 Labs: Short CBC 11/28/23 Range/Units 04:57 WBC 10.5 (4.8-10.8) X10*3/uL Hgb 9.9 L (14.0-18.0) g/dl Hct 30.7 L (42.0-52.0) % Plt Count 136 L (160-400) X10*3/uL BMP 11/28/23 04:57 Sodium 136 Potassium 4.0 D Chloride 101 Carbon Dioxide 26 BUN 11 Creatinine 0.79 Calcium 8.6 Microbiology Microbiology Results: Microbiology 11/26/23 21:37 Knee aspirate Gram Stain - Final 11/26/23 21:37 Knee aspirate Anaerobic Culture - Preliminary Culture in progress. 11/26/23 21:37 Knee aspirate Fluid Crystals - Final 11/26/23 21:37 Knee aspirate Joint Fluid Culture - Preliminary Gram negative guerrero 11/26/23 22:58 Blood - Venous Blood Culture - Preliminary No growth after 24 hours. 11/26/23 22:58 Blood - Venous Blood Culture - Preliminary No growth after 24 hours. 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 Follow Orthopedics
[2023-11-29 05:03] LABS: Lyme PCR Source FLUID, SYNOVIAL; Lyme Synovial Fluid PCR NOT DETECTED (NOT DETECTED)
== END 2023-11-28 14:13 | disposition left against medical advice (07) | DRG 549 ==
LOC: HO.ED 20:11 → HO.EDOVER 11-27 00:33 → HO.S3 11-27 00:38
PROVIDERS: Physician Assistant; Student in an Organized Health Care Education/Training Program; Admitting Provider Student in an Organized Health Care Education/Training Program; Emergency Provider Internal Medicine; PCP Internal Medicine; Visit Provider Internal Medicine
DX: M00.862 Arthritis due to other bacteria, left knee (principal); K76.6 Portal hypertension; E11.42 Type 2 diabetes mellitus with diabetic polyneuropathy; K70.30 Alcoholic cirrhosis of liver without ascites; K31.89 Other diseases of stomach and duodenum; K21.9 Gastro-esophageal reflux disease without esophagitis; F39 Unspecified mood [affective] disorder; F10.20 Alcohol dependence, uncomplicated; Z87.891 Personal history of nicotine dependence; Z86.711 Personal history of pulmonary embolism; Z79.4 Long term (current) use of insulin; Z79.01 Long term (current) use of anticoagulants; Z79.899 Other long term (current) drug therapy
CPT/HCPCS: 36415; 73562; 80048; 80053; 80202; 82947; 83605; 83690; 84550; 84560; 85025; 85027; 85610; 85652; 85730; 86140; 86617; 86618; 87040; 87070; 87073; 87077; 87186; 87205; 87476; 89051; 89060; 99285; J0692; J0696; J1010; J2270; J2795; J3370; J3371

== ENCOUNTER → 2023-11-27 00:29 | Outpatient (BNV) | payer OTHER, SELFPAY | PROVIDERS: Admitting Provider Student in an Organized Health Care Education/Training Program; Emergency Provider Internal Medicine; PCP Internal Medicine; Visit Provider Student in an Organized Health Care Education/Training Program | DX: M00.9 Pyogenic arthritis, unspecified (principal) | CPT/HCPCS: 99222; 99239; 99499 ==

== ENCOUNTER → 2023-11-27 00:29 | Outpatient (BNV) | payer OTHER, SELFPAY | PROVIDERS: Admitting Provider Student in an Organized Health Care Education/Training Program; Emergency Provider Internal Medicine; PCP Internal Medicine; Visit Provider Physician Assistant | DX: M25.461 Effusion, right knee (principal) | CPT/HCPCS: 99221; 99499 ==

== ENCOUNTER → 2023-11-27 00:29 | Outpatient (BNV) | payer OTHER, SELFPAY | PROVIDERS: Admitting Provider Student in an Organized Health Care Education/Training Program; Emergency Provider Internal Medicine; PCP Internal Medicine; Visit Provider Internal Medicine | DX: M25.461 Effusion, right knee (principal); M00.9 Pyogenic arthritis, unspecified | CPT/HCPCS: 99222 ==

== ENCOUNTER 2023-11-29 08:01 | Outpatient (REF) | payer OTHER, SELFPAY ==
--- NOTE | ~2023-11-29 | MR_ITS ---
EXAMINATION: MR ABDOMEN WITHOUT AND WITH CONTRAST CLINICAL INFORMATION: Follow-up PET/CT. COMPARISON: PET/CT 10/09/2023 MRI abdomen 08/18/2021 CT abdomen/pelvis 10/27/2022 TECHNIQUE: MR abdomen was performed without and with use of 10 mL intravenous Gadavist gadolinium contrast. Postcontrast images are performed in multiphase dynamic sequences. Imaging was performed in 3 planes. FINDINGS: LUNG BASES: Small to moderate left pleural effusion and left basilar consolidation. LIVER, GALLBLADDER, AND BILIARY TREE: Nodular surface contour of the liver. The liver is enlarged and measures 23.8 cm in sagittal dimension. There is hepatic steatosis. No suspicious hepatic lesion. Mild irregular gallbladder wall thickening. No biliary ductal dilatation. PANCREAS: No ductal dilatation. SPLEEN: Enlarged. The spleen measures 16.3 cm in sagittal dimension. ADRENAL GLANDS: No adrenal mass. KIDNEYS AND URETERS: The kidneys are symmetric in size. There is a right midpole 1 cm lesion demonstrating precontrast T1 hyperintensity. No abnormal postcontrast enhancement. This likely represents a proteinaceous/hemorrhagic cyst or Bosniak 2 lesion. No hydronephrosis or perinephric fluid collection. GASTROINTESTINAL TRACT: Diffuse gastric wall thickening. This can be seen in the setting of portal gastropathy. Moderate ascites. LYMPH NODES: Prominent portacaval lymph node measuring 3.2 x 1.6 cm possibly corresponding to the FDG avid focus seen on the recent PET/CT. This lymph node is similar compared to 10/27/2022. There is amorphous enhancing soft tissue seen in the retroperitoneum anterior to the abdominal aorta inferior to the origin of the SMA. Approximate measurements are 3.3 x 11.2 cm in transverse. There is more conspicuous inflammatory stranding and nodular enhancing foci within the left paracolic gutter. VASCULAR: Normal caliber abdominal aorta. Upper abdominal varices. MR/MR abdomen wo/w con IMPRESSION: Stable enlarged portacaval lymph node possibly corresponding to the FDG avid focus seen on the recent PET/CT. Nodular surface contour of the liver. Hepatomegaly and hepatic steatosis. No suspicious hepatic lesion. Similar amorphous soft tissue in the retroperitoneum anterior to the abdominal aorta along the celiac axis and SMA measuring 3.3 x 11.2 cm in transverse. There is more conspicuous inflammatory stranding and nodular enhancing foci within the left paracolic gutter. Mild irregular gallbladder wall thickening. Advise correlation with right upper quadrant ultrasound.
[2023-11-29] MEDS: gadobutroL 10 ML VIAL IVPUSH (09:09)
== END 2023-11-29 08:02 | disposition home or self-care (01) ==
LOC: HO.MRI 08:01
PROVIDERS: PCP Internal Medicine; Visit Provider Internal Medicine
DX: R94.8 Abnormal results of function studies of other organs and systems (principal)
CPT/HCPCS: 74183; A9585

== ENCOUNTER 2023-11-29 12:13 | Inpatient (IN) | payer OTHER, SELFPAY ==
--- NOTE | 2023-11-29 12:20 | ED.GENADULT ---
HPI - General Adult General Chief complaint: General Medical Stated complaint: Seen yesterday Time Seen by Provider: 11/29/23 13:13 Source: patient Mode of arrival: ambulatory Limitations: no limitations History of Present Illness ED Provider: Dr. Kenny Jackson HPI narrative: 58-year-old female past medical history significant for alcohol cirrhosis has history of PEs on Eliquis mood disorder GERD septic arthritis of the right knee. Patient was admitted here the 4th and then left against medical advice yesterday patient already had an arthrocentesis and was covered with vancomycin and ceftriaxone cultures were done pending at the time of him leaving the hospital yesterday. He states he had an outpatient MRI that was scheduled for some lesions on his pancreas he states he has been gone for more than 12 hours he is agreeable to completing his treatment at this time. Related Data Home Medications ?Medication ?Instructions ?Recorded ?Confirmed bupropion HCl 300 mg 24 hr tablet, 300 mg PO DAILY 06/10/21 11/27/23 extended release folic acid 1 mg tablet 1 mg PO DAILY 06/10/21 11/27/23 thiamine HCl (vitamin B1) 100 mg 100 mg PO DAILY 06/10/21 11/27/23 tablet albuterol sulfate 90 mcg/actuation 2 puff inhalation Q6H PRN 01/26/22 11/27/23 aerosol inhaler (ProAir HFA) Shortness Of Breath hydroxyzine pamoate 25 mg capsule 50 mg PO DAILY PRN itching 01/26/22 11/27/23 lorazepam 0.5 mg tablet 0.5 mg PO DAILY PRN anxiety attack 07/13/22 11/27/23 paroxetine HCl 20 mg tablet 20 mg PO DAILY 07/13/22 11/27/23 insulin glargine 100 unit/mL (3 20 unit subcut DAILY PRN elevated 11/27/22 11/27/23 mL) subcutaneous pen blood sugar insulin lispro 100 unit/mL 1 sliding scale dose subcut QIDACHS 03/03/23 11/27/23 subcutaneous pen oxycodone 5 mg capsule 5 - 10 mg PO DAILY PRN Pain 04/09/23 11/27/23 acamprosate 333 mg tablet,delayed 333 mg PO Q8H PRN ALCOHOL 11/27/23 11/27/23 release ABSTINENCE carvedilol 6.25 mg tablet 6.25 mg PO BIDWM 11/27/23 11/27/23 lactulose 10 gram/15 mL oral 30 ml PO TID PRN hepatic 11/27/23 11/27/23 solution encephalopathy omeprazole 40 mg capsule,delayed 40 mg PO DAILY@0630 11/27/23 11/27/23 release Previous Rx's ?Medication ?Instructions ?Recorded blood sugar diagnostic (FreeStyle #100 ea 10/30/22 Lite Strips) blood-glucose meter (FreeStyle #1 ea 10/30/22 Lite Meter kit) lancets #200 ea 10/30/22 ondansetron 4 mg disintegrating 4 mg PO Q8H PRN nausea and 10/30/22 tablet vomiting #14 tabs pen needle, diabetic 31 gauge x #1,200 ea 10/31/2211/07 (Pen Needle) spironolactone 100 mg tablet 200 mg (2 x 100 mg) PO DAILY 90 03/14/23 days #180 tabs furosemide 40 mg tablet 80 mg (2 x 40 mg) PO DAILY 90 days 05/07/23 #180 tabs apixaban 5 mg tablet (Eliquis) 5 mg PO BID #56 tabs 09/20/23 rifaximin 550 mg tablet (Xifaxan) 550 mg PO BID #56 tabs 11/14/23 levofloxacin 500 mg tablet 500 mg PO DAILY #14 tabs 11/28/23 Allergies Allergy/AdvReac Type Severity Reaction Status Date / Time No Known Drug Allergies Allergy Mild NONE Verified 11/29/23 12:22 [NO KNOWN DRUG ALLERGIES] Review of Systems Review of Systems: Review of systems: General: Patient denies any fever chills recent illness or falls Musculoskeletal: Denies back pain or body aches or other injuries HEENT: denies headache, runny nose, ear pain Respiratory: denies shortness of breath, cough Cardiovascular: no chest pain or palpitations : denies dysuria, frequency Abdomen: no nausea vomiting denies abdominal pain Extremities: Right knee pain and swelling Skin: no diaphoresis Yes all other systems are reviewed and are negative PMFSH Past Medical History Medical History Pulmonary nodule 1 cm or greater in diameter Pleuritic chest pain Pulmonary embolism, bilateral Cirrhosis of liver Diabetes Alcohol use disorder, moderate, dependence Recurrent left pleural effusion Pleural effusion Pericardial effusion Tachycardia Dyspnea Hydropneumothorax Pleural effusion on right Decompensation of cirrhosis of liver Cirrhosis GERD (gastroesophageal reflux disease) Esophageal varices Chronic abdominal pain Gout Peripheral neuropathy Alcoholism Elevated LFTs Surgical History History of abdominal paracentesis Hx of esophagogastroduodenoscopy History of thoracentesis H/O colonoscopy H/O cervical spine surgery H/O hemicolectomy Family History Family History Mother Cancer Sister Cancer Social History Social History Household Members: Friend(s) Household Members Other:: roommate Housing: Apartment Are you a primary health care liaison to a significant other at home: No Do you presently have visiting nurse or other home services: No Alcohol intake: current Alcohol intake frequency: a few times a week Alcohol type: hard liquor Patient Tobacco Use Status: Former Tobacco user Tobacco use type: Cigarette Years Smoked: 30 e-Cigarette/Vaping Use: Currently Using Second Hand Smoke Exposure: No Substance Use Type: Marijuana Advance Directives Date on File: 11/27/22 service: No Current occupational status: unemployed Physical Exam ED Vital Signs: Vital Signs - 24 hr 11/29/23 12:21 Temperature 98 F Pulse Rate 99 Respiratory Rate 19 Blood Pressure 119/71 Pulse Oximetry 99 Oxygen Delivery Method Room Air BMI result Body Mass Index 29.0 General: Well-appearing well-nourished in no signs of distress HEENT: Normocephalic atraumatic Neck: No signs of JVD, no masses no tenderness or lymphadenopathy Cardiovascular: Regular rate and rhythm Respiratory: Clear to auscultation bilaterally Abdomen: Soft nontender no masses Extremities: Normal pedal pulses no signs of edema Skin: Dry warm no rashes Back: No tenderness full ROM Course Course Course Narrative: This is a Rapid Medical Examination (RME) performed by Ni Tinajero PA-C in triage. Full HPI, ROS, assessment and treatment plan per primary provider in the Main ED. 58 yo male hx of alcoholic cirrhosis, PE on eliquis, mood disorder, GERD here w/ right knee pain. clara was admitted to medicine on 11/27/23 for septic arthritis of right knee, left AMA yesterday because he had things to attend to at home. Reports returning today for further treatment. admits to right knee pain. no other concerns. Plan: labs, UA, lactic, blood cultures ordered Medical Decision Making Medical Decision Making [facility] Narrative: Male patient does have a lactic acidosis and a source of infection does not have a white blood cell count he has not tachycardic or showing any other signs of sepsis I do not think the patient needs septic fluids Differential Diagnosis Differential Diagnoses: The differential diagnosis associated with the presentation includes Septic arthritis of the knee patient also has a lactic acidosis some dehydration his blood culture did come back growing Serratia and is sensitive to ceftriaxone Consult Healthcare Provider Management of the patient was discussed with: Hospitalist and Bridge Maintenance Worker I spoke with the hospitalist as well as Orthopedics Lab Data [facility] Lab Attestation statement: I reviewed the patient's lab results. 11/29/23 12:38 11/29/23 12:38 Labs: Lab Results 11/29/23 Range/Units 12:38 WBC 5.1 (4.8-10.8) X10*3/uL RBC 3.73 L (4.60-5.80) X10*6/uL Hgb 10.4 L (14.0-18.0) g/dl Hct 32.4 L (42.0-52.0) % MCV 86.9 (80.0-98.0) fL MCH 27.9 (27.0-33.0) pg MCHC 32.1 (31.0-36.0) g/dl RDW 19.8 H (11.0-16.0) % Plt Count 175 D (160-400) X10*3/uL MPV 8.6 L (9.4-12.4) fL Immature Gran % (Auto) 0.8 H (0.0-0.4) % Neut % (Auto) 71.3 (45-73) % Lymph % (Auto) 12.5 L (20-40) % [place] % (Auto) 13.8 H (2-11) % Eos % (Auto) 1.0 (0-4) % Baso % (Auto) 0.6 (0-2) % Lymph # (Auto) 0.6 L (1.2-4.9) X10*3/uL [place] # (Auto) 0.7 (0.1-1.2) X10*3/uL Eos # (Auto) 0.1 (0.0-0.4) X10*3/uL Baso # (Auto) 0.0 (0.0-0.2) X10*3/uL Abs Immat Gran (auto) 0.04 H (0.00-0.03) X10*3/uL Absolute Neuts (auto) 3.6 (2.0-8.3) x10*3/uL Absolute Nucleated RBC 0.000 (0.0-0.012) X10*3/uL Nucleated RBC % (auto) 0.0 (0.0-0.2) /100WBC Sodium 135 (135-145) mmol/L Potassium 3.4 (3.3-5.1) mmol/L Chloride 98 (96-108) mmol/L Carbon Dioxide 25 (22-29) mmol/L Anion Gap 15 (12-20) BUN 11 (9-16) mg/dL Creatinine 0.92 (0.5-1.4) mg/dL Estim Creat Clear Calc 124.1 Estimated GFR > 60 Random Glucose 279 H (60-115) mg/dL Lactic Acid 3.7 H* (0.5-2.0) mmol/L Calcium 8.5 (8.4-10.2) mg/dL Magnesium 1.6 (1.6-2.6) mg/dL Total Bilirubin 3.5 H (0.0-1.0) mg/dL AST 61 H (5-37) U/L ALT 21 (0-40) U/L Alkaline Phosphatase 309 H (39-117) U/L Total Protein 7.7 (6.5-8.0) g/dL Albumin 2.9 L (3.5-5.0) g/dL Lipase 46 (8-78) U/L Independent Interpretation I performed an independent interpretation of an: Plain X-Ray Radiology Impression Discussion of test interpretation with radiology: I have reviewed the radiologist's reading. External Record Review External record reviewed: Inpatient record, Office record and Outpatient record Prescription Management I considered prescription management with: Pain Medication and Antibiotic Chronic Conditions Patient?s care impacted by: Diabetes Social Determinants Patient?s care significantly limited by Social Determinants of Health including: Alcoholism and drug addiction in family Discharge Plan Discharge Clinical Impression: Septic arthritis of knee, right Patient Disposition: Admitted As Inpatient Prescriptions: No Action spironolactone 100 mg tablet 200 mg PO DAILY 90 Days Qty: 180 0RF Hold Instructions: Check with nephrology before restarting furosemide 40 mg tablet 80 mg PO DAILY 90 Days Qty: 180 0RF Hold Instructions: Check with nephrology before restarting Eliquis 5 mg tablet 5 mg PO BID Qty: 56 2RF Xifaxan 550 mg tablet 550 mg PO BID Qty: 56 0RF paroxetine HCl 20 mg tablet 20 mg PO DAILY oxycodone 5 mg capsule 5 - 10 mg PO DAILY PRN (Reason: Pain) acamprosate 333 mg tablet,delayed release (DR/EC) 333 mg PO Q8H PRN (Reason: ALCOHOL ABSTINENCE) carvedilol 6.25 mg tablet 6.25 mg PO BIDWM Rx Instructions: must administer with a meal/food omeprazole 40 mg capsule,delayed release(DR/EC) 40 mg PO DAILY@0630 lactulose 10 gram/15 mL solution 30 ml PO TID PRN (Reason: hepatic encephalopathy) levofloxacin 500 mg tablet 500 mg PO DAILY Qty: 14 0RF ondansetron 4 mg tablet,disintegrating 4 mg PO Q8H PRN (Reason: nausea and vomiting) Qty: 14 0RF (DME) FreeStyle Lite Strips Strip See Rx Instructions .ROUTE .MEDSUPPLY Qty: 100 2RF Rx Instructions: QID (DME) lancets Misc See Rx Instructions .ROUTE .MEDSUPPLY Qty: 200 2RF Rx Instructions: 4 times daily (DME) blood-glucose meter [FreeStyle Lite Meter] Kit See Rx Instructions .ROUTE .MEDSUPPLY Qty: 1 0RF Rx Instructions: As directed (DME) pen needle, diabetic [Pen Needle] 31 gauge x 5/16 needle See Rx Instructions .ROUTE .MEDSUPPLY Qty: 1200 0RF Rx Instructions: As directed insulin glargine 100 unit/mL (3 mL) insulin pen 20 unit subcut DAILY PRN (Reason: elevated blood sugar) insulin lispro 100 unit/mL insulin pen 1 sliding scale dose subcut QIDACHS Protocol: Insulin Correction Scale Less than or equal to 110 ---- Give (units): 0 111 to 150 Give (units): 0 151 to 200 Give (units): 2 201 to 250 Give (units): 4 251 to 300 Give (units): 6 301 to 350 Give (units): 8 Greater than 350 Give (units): 10 Call MD if Blood Glucose > : 350 hydroxyzine pamoate 25 mg capsule 50 mg PO DAILY PRN (Reason: itching) Rx Instructions: ITCHING/ANXIETY albuterol sulfate [ProAir HFA] 90 mcg/actuation HFA aerosol inhaler 2 puff inhalation Q6H PRN (Reason: Shortness Of Breath) folic acid 1 mg tablet 1 mg PO DAILY bupropion HCl 300 mg tablet extended release 24 hr 300 mg PO DAILY thiamine HCl (vitamin B1) 100 mg tablet 100 mg PO DAILY lorazepam 0.5 mg tablet 0.5 mg PO DAILY PRN (Reason: anxiety attack) Print Language: Slovenian
[2023-11-29 12:21] VITALS: BP 119/71; PULSE 99; RESP 19; TEMP 36.6; O2SAT 99; BMI 29.0
[2023-11-29 12:49] LABS: MANUAL DIFF FLAG NO
[2023-11-29 12:50] LABS: Basophils Percent Auto 0.6 % (0-2); Eosinophils Absolute Auto 0.1 X10*3/uL (0.0-0.4); Hematocrit 32.4 % (42.0-52.0); Hemoglobin 10.4 g/dl (14.0-18.0); Imm Gran Abs Auto 0.04 X10*3/uL (0.00-0.03); Imm Gran Pct Auto 0.8 % (0.0-0.4); Lymphocytes Absolute Auto 0.6 X10*3/uL (1.2-4.9); Lymphocytes Percent Auto 12.5 % (20-40); Mean Corpuscular HGB Conc 32.1 g/dl (31.0-36.0); Mean Corpuscular Hemoglobin 27.9 pg (27.0-33.0); Mean Corpuscular Volume 86.9 fL (80.0-98.0); Mean Platelet Volume 8.6 fL (9.4-12.4); Monocytes Absolute Auto 0.7 X10*3/uL (0.1-1.2); Monocytes Percent Auto 13.8 % (2-11); Neutrophils Absolute Auto 3.6 x10*3/uL (2.0-8.3); Neutrophils Percent Auto 71.3 % (45-73); Platelet Count 175 X10*3/uL (160-400); Red Blood Count 3.73 X10*6/uL (4.60-5.80); Red Cell Distribution Width 19.8 % (11.0-16.0); White Blood Count 5.1 X10*3/uL (4.8-10.8)
[2023-11-29 13:09] LABS: Alanine Aminotransferase 21 U/L (0-40); Albumin Level 2.9 g/dL (3.5-5.0); Alkaline Phosphatase 309 U/L (39-117); Anion Gap 15 (12-20); Aspartate Amino Transferase 61 U/L (5-37); Bilirubin Total 3.5 mg/dL (0.0-1.0); Blood Urea Nitrogen 11 mg/dL (9-16); Calcium 8.5 mg/dL (8.4-10.2); Carbon Dioxide 25 mmol/L (22-29); Chloride 98 mmol/L (96-108); Creatinine Clr Calc Pharmacy 124.1; Estimated Glomerular Filt Rate > 60; Glucose Random 279 mg/dL (60-115); Lipase 46 U/L (8-78); Magnesium 1.6 mg/dL (1.6-2.6); Potassium 3.4 mmol/L (3.3-5.1); Sodium 135 mmol/L (135-145); Total Protein 7.7 g/dL (6.5-8.0)
[2023-11-29 13:13] LABS: Appearance Urine Clear; Color Urine Yellow; Glucose Urine UA Negative (Negative); Leukocyte Esterase Urine Negative (Negative); Nitrite Urine Negative (Negative); Urine Blood Negative (Negative); Urine Ketones Negative (Negative); Urine Protein Negative (Neg-Trace)
[2023-11-29 13:13] LABS: Lactic Acid 3.7 mmol/L (0.5-2.0)
[2023-11-29] MEDS: cefTRIAXone sodium 1 GM in 0.9 % Sodium Chloride 50 ML IV (13:29)
[2023-11-29] MEDS: 0.9 % Sodium Chloride 1,000 ML 999 ML IV ×2 (13:29)
[2023-11-29 13:47] VITALS: BP 121/76; PULSE 87; RESP 18; O2SAT 97
[2023-11-29] MEDS: Morphine Sulfate 4 MG/ML CARTRIDGE IVPUSH ×3 (13:55→23:51)
--- NOTE | 2023-11-29 14:10 | PM.IMHP ---
History of Present Illness Date of Service: 11/29/23 Attending physician on admission: Robert Casas Chief Complaint: Right knee pain Pt is a 58-year-old male with a PMH significant for alcoholic cirrhosis, history of PE on Eliquis, mood disorder, and GERD who presents initially to the ED on 11/27/2023 for right knee pain, warmth, and swelling 3 days prior to presentation. ?Patient was admitted to the hospital for right knee septic arthritis with 74,000 PMNs and GNR in right knee arthrocentesis. Was empirically covered with vancomycin ceftriaxone as cultures at that time were still pending. However, patient left AMA as he had an outpatient MRI he did not want to miss or reschedule. Was sent home on 2 weeks of levofloxacin. Knee aspirate cultures have since grown Serratia marcescens susceptible to ceftriaxone. Pt represents today after MRI to complete his treatment. Continues to have right knee pain, warmth, and minor swelling, though has been able to ambulate and does not appear to be worsening. Denies fever, chills, nausea, vomiting, abdominal pain. No chest pressure or palpitations. Denies shortness of breath. In the ED pt with elevated HR of 99, vitals otherwise WNL. Labs were significant for chronic normocytic anemia of 10.4/32.4, lactic acid 3.7, bilirubin 3.5, AST 61, alk-phos 309, and albumin 2.9. UA negative for UTI. Pt was treated with IVF, ceftriaxone, and morphine. Pt will be admitted to the hospital for treatment and further evaluation of septic arthritis of right knee. Review of Systems Review of Systems: Right knee pain, swelling, warmth Otherwise has no acute medical complaints [facility] Medical History Pulmonary nodule 1 cm or greater in diameter Pleuritic chest pain Pulmonary embolism, bilateral Cirrhosis of liver Diabetes Alcohol use disorder, moderate, dependence Recurrent left pleural effusion Pleural effusion Pericardial effusion Tachycardia Dyspnea Hydropneumothorax Pleural effusion on right Decompensation of cirrhosis of liver Cirrhosis GERD (gastroesophageal reflux disease) Esophageal varices Chronic abdominal pain Gout Peripheral neuropathy Alcoholism Elevated LFTs Family History Mother Cancer Sister Cancer Surgical History History of abdominal paracentesis Hx of esophagogastroduodenoscopy History of thoracentesis H/O colonoscopy H/O cervical spine surgery H/O hemicolectomy Social History Household Members: Friend(s) Household Members Other:: roommate Housing: Apartment Are you a primary field care advocate to a significant other at home: No Do you presently have visiting nurse or other home services: No Alcohol intake: current Alcohol intake frequency: a few times a week Alcohol type: hard liquor Patient Tobacco Use Status: Former Tobacco user Tobacco use type: Cigarette Years Smoked: 30 Smoked in Last 30 Days: Yes e-Cigarette/Vaping Use: Currently Using Second Hand Smoke Exposure: No Use of substances other than those prescribed or required for medical reasons: Yes Substance Use Type: Marijuana Substance Use Frequency: Occasionally Advance Directives: Yes Advance Directives on File: Yes Advance Directives Date on File: 11/27/22 Do you have a plan to hurt others: No Plan service: No Current occupational status: unemployed Meds Allergies Allergy/AdvReac Type Severity Reaction Status Date / Time No Known Drug Allergies Allergy Mild NONE Verified 11/29/23 12:22 [NO KNOWN DRUG ALLERGIES] Active Medications: Current Medications Sodium Chloride (Ns) 1,000 mls @ 999 mls/hr IV .Q1H1M RYAN Stop: 11/29/23 14:30 Last Admin: 11/29/23 13:29 Dose: 999 mls/hr Sodium Chloride (Ns) 1,000 mls @ 999 mls/hr IV .Q1H1M RYAN Stop: 11/29/23 14:30 Last Admin: 11/29/23 13:29 Dose: 999 mls/hr Home Medications ?Medication ?Instructions ?Recorded ?Confirmed ?Last Taken ?Type bupropion HCl 300 mg 24 hr tablet, 300 mg PO DAILY 06/10/21 11/29/23 11/26/23 History extended release folic acid 1 mg tablet 1 mg PO DAILY 06/10/21 11/29/23 11/26/23 History thiamine HCl (vitamin B1) 100 mg 100 mg PO DAILY 06/10/21 11/29/23 11/26/23 History tablet albuterol sulfate 90 mcg/actuation 2 puff inhalation Q6H PRN 0811/29/23 04/09/23 History aerosol inhaler (ProAir HFA) Shortness Of Breath hydroxyzine pamoate 25 mg capsule 50 mg PO DAILY PRN itching 01/26/22 11/29/23 04/08/23 History lorazepam 0.5 mg tablet 0.5 mg PO DAILY PRN anxiety attack 07/13/22 11/29/23 10/27/22 History paroxetine HCl 20 mg tablet 20 mg PO DAILY 07/13/22 11/29/23 11/26/23 History insulin glargine 100 unit/mL (3 20 unit subcut DAILY PRN elevated 11/27/22 11/29/23 04/08/23 History mL) subcutaneous pen blood sugar insulin lispro 100 unit/mL 1 sliding scale dose subcut QIDACHS 03/03/23 11/29/23 11/26/23 History subcutaneous pen oxycodone 5 mg capsule 5 - 10 mg PO DAILY PRN Pain 04/09/23 11/29/23 Unknown History acamprosate 333 mg tablet,delayed 333 mg PO Q8H PRN ALCOHOL 11/27/23 11/29/23 Unknown History release ABSTINENCE carvedilol 6.25 mg tablet 6.25 mg PO BIDWM 11/27/23 11/29/23 11/26/23 History lactulose 10 gram/15 mL oral 30 ml PO TID PRN hepatic 11/27/23 11/29/23 Unknown History solution encephalopathy omeprazole 40 mg capsule,delayed 40 mg PO DAILY@0630 11/27/23 11/29/23 11/26/23 History release Physical Exam Vital Signs and Narrative: Vital Signs: Last Vital Signs Temp 98 F 11/29/23 12:21 Pulse 87 11/29/23 13:47 Resp 18 11/29/23 13:47 BP 121/76 11/29/23 13:47 Pulse Ox 97 11/29/23 13:47 O2 Del Method Room Air 11/29/23 13:47 BMI result Body Mass Index 29.0 General: AOx3, no acute distress Resp: CTA bilaterally CVS: S1, S2, RRR GI: +BS, NT, no distention Skin: Warm, dry Neuro: Cranial nerves II-XII grossly intact bilaterally. Motor grossly intact bilaterally Extremities: Right knee with warmth and minor swelling. No erythema. No lower leg pitting. Psych: Appropriate affect Results Labs 11/29/23 12:38 11/29/23 12:38 Labs: Laboratory Results - last 24 hr 11/29/23 11/29/23 12:38 12:49 MCV 86.9 MCH 27.9 MCHC 32.1 RDW 19.8 H Plt Count 175 D MPV 8.6 L Immature Gran % (Auto) 0.8 H Neut % (Auto) 71.3 Lymph % (Auto) 12.5 L [place] % (Auto) 13.8 H Eos % (Auto) 1.0 Baso % (Auto) 0.6 Lymph # (Auto) 0.6 L [place] # (Auto) 0.7 Eos # (Auto) 0.1 Baso # (Auto) 0.0 Abs Immat Gran (auto) 0.04 H Absolute Neuts (auto) 3.6 Absolute Nucleated RBC 0.000 Nucleated RBC % (auto) 0.0 Anion Gap 15 Estim Creat Clear Calc 124.1 Estimated GFR > 60 Random Glucose 279 H Lactic Acid 3.7 H* Calcium 8.5 Magnesium 1.6 Total Bilirubin 3.5 H AST 61 H ALT 21 Alkaline Phosphatase 309 H Total Protein 7.7 Albumin 2.9 L Lipase 46 Urine Color Yellow Urine Appearance Clear Urine pH 7.0 Ur Specific [place] 1.010 Urine Protein Negative Urine Glucose (UA) Negative Urine Ketones Negative Urine Blood Negative Urine Nitrite Negative Ur Leukocyte Esterase Negative Assessment and Plan (1) Septic arthritis of knee, right: Status: Acute Plan Pt is a 58-year-old male with a PMH significant for alcoholic cirrhosis, history of PE on Eliquis, mood disorder, and GERD who presents initially to the ED on 11/27/2023 for right knee pain, warmth, and swelling 3 days prior to presentation. Initially left AMA to get outpatient MRI, and now represents for readmission to complete treatment for septic arthritis of right knee. Right knee septic arthritis Synovial WBC 74,000 with 92% neutrophils Cultures grew Serratia susceptible to ceftriaxone Will treat with ceftriaxone, started 11/27/2023 Does not meet sepsis criteria: HR>90, but no tachypnea, fever, or leukocytosis NPO after midnight Orthopedics consult for possible washout in the a.m. Infectious disease consult Follow blood cultures Lactic acidosis Lactic acid 3.7 at time of re-presentation Patient received IVF and restarted on broad-spectrum antibiotics in the ED Patient does not meet SIRS criteria; clinically is well-appearing and does not look septic Will trend lactic acid Hx of PE Hold Eliquis pending possible washout tomorrow Resume postprocedure Insulin-dependent type 2 diabetes SSI, Lantus Diabetic diet Alcoholic cirrhosis Continue diuretics, lactulose, rifaximin Continue thiamine and folate GERD Continue PPI, sulfate Mood disorder Continue mood stabilizers Full Code Attending:?Dr. Casas DVT Prophylaxis: Pneumatic boots for now, Eliquis on hold for possible OR procedure Pt will require a hospitalization of at least two nights for treatment of?right knee septic arthritis. Patient will be treated with IV antibiotics, possible OR procedure, and will need specialist consultation with Orthopedics and Infectious Disease. Quality Stroke Does the patient have a stroke diagnosis?: No VTE Prior VTE?: No VTE Risk Level:: Medical - moderate - high VTE Device Contraindication: N/A - Device Ordered VTE Drug Contraindication: Treatment Not Indicated
--- NOTE | 2023-11-29 14:14 | PC.NURSE ---
pt presents to dept w02/01 right knee pain. pt was admitted to the hospital 2 days ago for septic arthritis, however pt left AMA to have outpatient [place] (unrelated to knee pain) [place] [facility] [place] has returned and wishes to stay for treatment of his septic joint. 20G iv was placed in left wrist, pt rec 2L NS and 1g of rocephin on arrival. Morphine 4mg given for pain. pt awaiting hospitalist eval and bed assignment
--- NOTE | 2023-11-29 14:16 | PHA.MEDREC ---
Pharmacy Consult ? Medication Reconciliation Pharmacy has completed the medication reconciliation.Patient was here on 11-28-23 confirmed med list through discharge packet.
--- NOTE | 2023-11-29 14:30 | PC.NURSE ---
ABBEY Barnes at bedside discussing plans for admission
[2023-11-29 14:34] VITALS: BP 136/83; PULSE 88
[2023-11-29 14:47] LABS: Reflex Lactate? Lactic Acid Added
[2023-11-29 14:50] VITALS: BP 135/77; PULSE 92
[2023-11-29 15:04] VITALS: BP 140/80; PULSE 90
[2023-11-29 15:28] LABS: ~Lactic Acid-LAB USE ONLY 2.7 mmol/L (0.5-2.0)
[2023-11-29] MEDS: 0.9 % Sodium Chloride Flush 3 ML SYRINGE IVFLUSH (16:37)
[2023-11-29 17:06] LABS: Reflex Lactate? 2 Y
[2023-11-29 17:43] LABS: ~Lactic Acid-LAB USE ONLY 1.2 mmol/L (0.5-2.0)
[2023-11-29 18:37] LABS: Glucose, Whole Blood 156 mg/dL (60-115)
[2023-11-29 18:46] VITALS: BP 140/80; PULSE 90
[2023-11-29] MEDS: carvediloL 6.25 MG TABLET PO (18:46)
[2023-11-29] MEDS: Insulin Lispro 100 UNIT/ML 3 ML VIAL SUBCUT ×2 (18:47→20:59)
[2023-11-29 20:34] LABS: Glucose, Whole Blood 183 mg/dL (60-115)
[2023-11-29] MEDS: rifAXIMin 550 MG TABLET PO (21:00)
[2023-11-30] VITALS (16 sets, daily range): BP systolic 120–155; BP diastolic 66–96; PULSE 79–99; RESP 16–20; TEMP 36.1–37; O2SAT 94–99; BMI 29.5
[2023-11-30] MEDS: Omeprazole 40 MG CAPSULE.DR PO (06:19)
[2023-11-30] MEDS: 0.9 % Sodium Chloride Flush 3 ML SYRINGE IVFLUSH ×3 (07:23→20:38)
[2023-11-30 07:29] LABS: Glucose, Whole Blood 147 mg/dL (60-115)
[2023-11-30] MEDS: Morphine Sulfate 4 MG/ML CARTRIDGE IVPUSH ×4 (07:37→21:06)
--- NOTE | 2023-11-30 08:17 | PM.HPOR ---
History of Present Illness History of Present Illness Date of Service: 11/30/23 Chief complaint: right knee septic arthritis Narrative: Akash Barboza is a 58 year old male who presented to the ED on 11/26/23 for right knee swelling, redness and pain. The ED aspirated the right knee and sent for culture. He was admitted to the medicine service for abx. Orthopedics was consulted. Synovial fluid was suggestive of infection. On 11/28/23 Dr. Mosher saw the patient and discussed bringing the patient to the OR for arthroscopic lavage, however the patient was unable to stay and left AMA. Review of Systems Review of Systems: Yes all other systems are reviewed and are negative PMFSH Past Medical History Medical History Pulmonary nodule 1 cm or greater in diameter Pleuritic chest pain Pulmonary embolism, bilateral Cirrhosis of liver Diabetes Alcohol use disorder, moderate, dependence Recurrent left pleural effusion Pleural effusion Pericardial effusion Tachycardia Dyspnea Hydropneumothorax Pleural effusion on right Decompensation of cirrhosis of liver Cirrhosis GERD (gastroesophageal reflux disease) Esophageal varices Chronic abdominal pain Gout Peripheral neuropathy Alcoholism Elevated LFTs Family History Family History Mother Cancer Sister Cancer Surgical History Surgical History History of abdominal paracentesis Hx of esophagogastroduodenoscopy History of thoracentesis H/O colonoscopy H/O cervical spine surgery H/O hemicolectomy Social History Social History Household Members: Other Household Members Other:: 1 Housing: Apartment Are you a primary animal care supervisor to a significant other at home: No Do you presently have visiting nurse or other home services: No Alcohol intake: current Alcohol intake frequency: a few times a week Alcohol type: hard liquor Patient Tobacco Use Status: Former Tobacco user Tobacco use type: Cigarette Years Smoked: 35 e-Cigarette/Vaping Use: Currently Using Second Hand Smoke Exposure: No Substance Use Type: Marijuana and Opiates Advance Directives Date on File: 11/27/22 service: No Current occupational status: unemployed Meds Allergies Allergy/AdvReac Type Severity Reaction Status Date / Time No Known Drug Allergies Allergy Mild NONE Verified 11/29/23 12:22 [NO KNOWN DRUG ALLERGIES] Active Medications: Current Medications Acamprosate (Acamprosate Calcium 333 Mg Tablet.Dr) 333 mg PO Q8H PRN PRN Reason: ALCOHOL ABSTINENCE Acetaminophen (Acetaminophen 325 Mg Tablet) 650 mg PO Q6H PRN PRN Reason: Pain, Mild (Pain Scale 1-3) Albuterol Sulfate (Albuterol Sulfate 90 Mcg 8 Gm Inhaler) 2 puff INHALE Q6H PRN PRN Reason: Shortness Of Breath Benzonatate (Benzonatate 100 Mg Capsule) 100 mg PO TID PRN PRN Reason: Cough Bupropion HCl (Bupropion Hcl Xl 300 Mg Tab.Er.24h) 300 mg PO DAILY RYAN Carvedilol (Carvedilol 6.25 Mg Tablet) 6.25 mg PO BIDWM [facility]; Protocol Last Admin: 11/29/23 18:46 Dose: 6.25 mg Docusate Sodium (Docusate Sodium 100 Mg Capsule) 100 mg PO DAILY PRN PRN Reason: Constipation Folic Acid (Folic Acid 1 Mg Tablet) 1 mg PO DAILY [facility] Furosemide (Furosemide 40 Mg Tablet) 80 mg PO DAILY [facility]; Protocol Glucose (Glucose Gel 15 Gm Gel..Gram.) 15 gm PO Q15M PRN; Protocol PRN Reason: per Hypoglycemia Standing Ord. Hydroxyzine HCl (Hydroxyzine Hcl 50 Mg Tablet) 50 mg PO DAILY PRN PRN Reason: itching Dextrose (D10) 250 mls @ 750 mls/hr IV Q15M PRN; Protocol PRN Reason: per Hypoglycemia Standing Ord. Dextrose/Sodium Chloride (D5ns) 1,000 mls @ 50 mls/hr IVCONT .Q20H [facility] Insulin Human Lispro (Insulin Lispro 100 Unit/Ml 3 Ml Vial) 0 unit SUBCUT QIDACHS [facility]; Protocol Last Admin: 11/30/23 07:26 Dose: Not Given Lactulose (Lactulose 20 Gm/30 Ml Solution) 20 gm PO TID PRN PRN Reason: hepatic encephalopathy Lorazepam (Lorazepam 0.5 Mg Tablet) 0.5 mg PO DAILY PRN PRN Reason: anxiety attack Melatonin (Melatonin 3 Mg Tablet) 6 mg PO BEDTIME PRN PRN Reason: Insomnia Morphine Sulfate (Morphine Sulfate 4 Mg/Ml Cartridge) 4 mg IVPUSH Q4H PRN; Protocol PRN Reason: Pain, Severe (Pain Scale 7-10) Last Admin: 11/30/23 07:37 Dose: 4 mg Omeprazole (Omeprazole 40 Mg Capsule.Dr) 40 mg PO DAILY@0630 [facility] Last Admin: 11/30/23 06:19 Dose: 40 mg Ondansetron HCl (Ondansetron Hcl 4 Mg/2 Ml Vial) 4 mg IVPUSH Q8H PRN PRN Reason: Nausea and Vomiting Paroxetine HCl (Paroxetine Hcl 20 Mg Tablet) 20 mg PO DAILY [facility] Rifaximin (Rifaximin 550 Mg Tablet) 550 mg PO BID [facility] Last Admin: 11/29/23 21:00 Dose: 550 mg Sodium Chloride (0.9 % Sodium Chloride Flush 3 Ml Syringe) 3 ml IVFLUSH QSHIFT [facility] Last Admin: 11/30/23 07:23 Dose: 3 ml Spironolactone (Spironolactone 25 Mg Tablet) 200 mg PO DAILY [facility]; Protocol Thiamine HCl (Thiamine Hcl 100 Mg Tablet) 100 mg PO DAILY [facility] Home Medications ?Medication ?Instructions ?Recorded ?Confirmed ?Last Taken ?Type bupropion HCl 300 mg 24 hr tablet, 300 mg PO DAILY 06/10/21 11/29/23 11/26/23 History extended release folic acid 1 mg tablet 1 mg PO DAILY 06/10/21 11/29/23 11/26/23 History thiamine HCl (vitamin B1) 100 mg 100 mg PO DAILY 06/10/21 11/29/23 11/26/23 History tablet albuterol sulfate 90 mcg/actuation 2 puff inhalation Q6H PRN 01/26/22 11/29/23 04/09/23 History aerosol inhaler (ProAir HFA) Shortness Of Breath hydroxyzine pamoate 25 mg capsule 50 mg PO DAILY PRN itching 01/26/22 11/29/23 04/08/23 History lorazepam 0.5 mg tablet 0.5 mg PO DAILY PRN anxiety attack 07/13/22 11/29/23 10/27/22 History paroxetine HCl 20 mg tablet 20 mg PO DAILY 07/13/22 11/29/23 11/26/23 History insulin glargine 100 unit/mL (3 20 unit subcut DAILY PRN elevated 11/27/22 11/29/23 04/08/23 History mL) subcutaneous pen blood sugar insulin lispro 100 unit/mL 1 sliding scale dose subcut QIDACHS 03/03/23 11/29/23 11/26/23 History subcutaneous pen oxycodone 5 mg capsule 5 - 10 mg PO DAILY PRN Pain 04/09/23 11/29/23 Unknown History acamprosate 333 mg tablet,delayed 333 mg PO Q8H PRN ALCOHOL 11/27/23 11/29/23 Unknown History release ABSTINENCE carvedilol 6.25 mg tablet 6.25 mg PO BIDWM 11/27/23 11/29/23 11/26/23 History lactulose 10 gram/15 mL oral 30 ml PO TID PRN hepatic 11/27/23 11/29/23 Unknown History solution encephalopathy omeprazole 40 mg capsule,delayed 40 mg PO DAILY@0630 11/27/23 11/29/23 11/26/23 History release Physical Exam Vital Signs: Vital Signs: Last Vital Signs Temp 97.7 F 11/30/23 07:16 Pulse 88 11/30/23 07:16 Resp 18 11/30/23 07:16 BP 128/76 11/30/23 07:16 Pulse Ox 96 11/30/23 07:16 O2 Del Method Room Air 11/30/23 07:16 BMI result Body Mass Index 29.5 Extrem: Other: Rt knee without redness, or ecchymosis. Llarge effusion. He is able to ambulate without pain. Full ROM without pain Results Labs 11/29/23 12:38 11/29/23 12:38 Labs: Abnormal lab results 11/29/23 11/29/23 11/29/23 Range/Units 12:38 15:03 18:33 RBC 3.73 L (4.60-5.80) X10*6/uL Hgb 10.4 L (14.0-18.0) g/dl Hct 32.4 L (42.0-52.0) % RDW 19.8 H (11.0-16.0) % MPV 8.6 L (9.4-12.4) fL Immature Gran % (Auto) 0.8 H (0.0-0.4) % Lymph % (Auto) 12.5 L (20-40) % [place] % (Auto) 13.8 H (2-11) % Lymph # (Auto) 0.6 L (1.2-4.9) X10*3/uL Abs Immat Gran (auto) 0.04 H (0.00-0.03) X10*3/uL POC Glucose 156 H (60-115) mg/dL Random Glucose 279 H (60-115) mg/dL Lactic Acid 3.7 H* (0.5-2.0) mmol/L Lactic Acid F/U @ 2Hr 2.7 H* (0.5-2.0) mmol/L Total Bilirubin 3.5 H (0.0-1.0) mg/dL AST 61 H (5-37) U/L Alkaline Phosphatase 309 H (39-117) U/L Albumin 2.9 L (3.5-5.0) g/dL 11/29/23 11/30/23 Range/Units 20:31 07:16 RBC (4.60-5.80) X10*6/uL Hgb (14.0-18.0) g/dl Hct (42.0-52.0) % RDW (11.0-16.0) % MPV (9.4-12.4) fL Immature Gran % (Auto) (0.0-0.4) % Lymph % (Auto) (20-40) % [place] % (Auto) (2-11) % Lymph # (Auto) (1.2-4.9) X10*3/uL Abs Immat Gran (auto) (0.00-0.03) X10*3/uL POC Glucose 183 H 147 H (60-115) mg/dL Random Glucose (60-115) mg/dL Lactic Acid (0.5-2.0) mmol/L Lactic Acid F/U @ 2Hr (0.5-2.0) mmol/L Total Bilirubin (0.0-1.0) mg/dL AST (5-37) U/L Alkaline Phosphatase (39-117) U/L Albumin (3.5-5.0) g/dL H & H 11/29/23 Range/Units 12:38 Hgb 10.4 L (14.0-18.0) g/dl Hct 32.4 L (42.0-52.0) % All other labs normal. Assessment and Plan (1) Septic arthritis of knee, right: Status: Acute I discussed the case with Dr. Mosher and explained the extent of the injury to the patient and options available which include surgical intervention. I explained the procedure in detail along with the length of recovery and rehab course. I explained the risk, benefits and alternatives. Risk including, but not limited to infection, blood clots, bleeding, non union or malunion and nerve/tissue damage to surrounding areas. I answered all their questions and with their understanding they have consented to move forward with arthroscopic lavage of the right knee.The patient will remain NPO. (2) Swelling of right knee joint: Status: Acute Quality Stroke Does the patient have a stroke diagnosis?: No VTE Prior VTE?: No VTE Risk Level:: Medical - moderate - high VTE Device Contraindication: N/A - Device Ordered VTE Drug Contraindication: Treatment Not Indicated Procedures Date of Service Date of Service: 11/30/23
--- NOTE | 2023-11-30 09:36 | HO.PM.IMPN ---
Subjective Subjective Date of Service: 11/30/23 Interval History: no copmlaints Physical Exam Vital Signs: Vital Signs: Last Vital Signs Temp 97.7 F 11/30/23 07:16 Pulse 88 11/30/23 07:16 Resp 18 11/30/23 07:16 BP 128/76 11/30/23 07:16 Pulse Ox 96 11/30/23 07:16 O2 Del Method Room Air 11/30/23 07:16 BMI result Body Mass Index 29.5 Extrem: Other: right knee swelling Objective Data Active Medications Acamprosate (Acamprosate Calcium 333 Mg Tablet.Dr) 333 mg PO Q8H PRN PRN Reason: ALCOHOL ABSTINENCE Acetaminophen (Acetaminophen 325 Mg Tablet) 650 mg PO Q6H PRN PRN Reason: Pain, Mild (Pain Scale 1-3) Albuterol Sulfate (Albuterol Sulfate 90 Mcg 8 Gm Inhaler) 2 puff INHALE Q6H PRN PRN Reason: Shortness Of Breath Benzonatate (Benzonatate 100 Mg Capsule) 100 mg PO TID PRN PRN Reason: Cough Bupropion HCl (Bupropion Hcl Xl 300 Mg Tab.Er.24h) 300 mg PO DAILY RYAN Carvedilol (Carvedilol 6.25 Mg Tablet) 6.25 mg PO BIDWM [facility]; Protocol Last Admin: 11/29/23 18:46 Dose: 6.25 mg Documented By: LJ Docusate Sodium (Docusate Sodium 100 Mg Capsule) 100 mg PO DAILY PRN PRN Reason: Constipation Folic Acid (Folic Acid 1 Mg Tablet) 1 mg PO DAILY RYAN Furosemide (Furosemide 40 Mg Tablet) 80 mg PO DAILY RYAN; Protocol Glucose (Glucose Gel 15 Gm Gel..Gram.) 15 gm PO Q15M PRN; Protocol PRN Reason: per Hypoglycemia Standing Ord. Hydroxyzine HCl (Hydroxyzine Hcl 50 Mg Tablet) 50 mg PO DAILY PRN PRN Reason: itching Dextrose (D10) 250 mls @ 750 mls/hr IV Q15M PRN; Protocol PRN Reason: per Hypoglycemia Standing Ord. Dextrose/Sodium Chloride (D5ns) 1,000 mls @ 50 mls/hr IVCONT .Q20H [facility] Insulin Human Lispro (Insulin Lispro 100 Unit/Ml 3 Ml Vial) 0 unit SUBCUT QIDACHS [facility]; Protocol Last Admin: 11/30/23 07:26 Dose: Not Given Documented By: TYRONE Non-Admin Reason: No Insulin Coverage Lactulose (Lactulose 20 Gm/30 Ml Solution) 20 gm PO TID PRN PRN Reason: hepatic encephalopathy Lorazepam (Lorazepam 0.5 Mg Tablet) 0.5 mg PO DAILY PRN PRN Reason: anxiety attack Melatonin (Melatonin 3 Mg Tablet) 6 mg PO BEDTIME PRN PRN Reason: Insomnia Morphine Sulfate (Morphine Sulfate 4 Mg/Ml Cartridge) 4 mg IVPUSH Q4H PRN; Protocol PRN Reason: Pain, Severe (Pain Scale 7-10) Last Admin: 11/30/23 07:37 Dose: 4 mg Documented By: TYRONE Omeprazole (Omeprazole 40 Mg Capsule.Dr) 40 mg PO DAILY@629 [facility] Last Admin: 11/30/23 06:19 Dose: 40 mg Documented By: VIOLETTA Ondansetron HCl (Ondansetron Hcl 4 Mg/2 Ml Vial) 4 mg IVPUSH Q8H PRN PRN Reason: Nausea and Vomiting Paroxetine HCl (Paroxetine Hcl 20 Mg Tablet) 20 mg PO DAILY [facility] Rifaximin (Rifaximin 550 Mg Tablet) 550 mg PO BID [facility] Last Admin: 11/29/23 21:00 Dose: 550 mg Documented By: LJ Sodium Chloride (0.9 % Sodium Chloride Flush 3 Ml Syringe) 3 ml IVFLUSH QSHIFT [facility] Last Admin: 11/30/23 07:23 Dose: 3 ml Documented By: TYRONE Spironolactone (Spironolactone 25 Mg Tablet) 200 mg PO DAILY [facility]; Protocol Thiamine HCl (Thiamine Hcl 100 Mg Tablet) 100 mg PO DAILY [facility] Labs 11/29/23 12:38 11/29/23 12:38 Labs: Laboratory Results - last 24 hr 11/29/23 11/29/23 11/29/23 12:38 12:49 15:03 MCV 86.9 MCH 27.9 MCHC 32.1 RDW 19.8 H Plt Count 175 D MPV 8.6 L Immature Gran % (Auto) 0.8 H Neut % (Auto) 71.3 Lymph % (Auto) 12.5 L [place] % (Auto) 13.8 H Eos % (Auto) 1.0 Baso % (Auto) 0.6 Lymph # (Auto) 0.6 L [place] # (Auto) 0.7 Eos # (Auto) 0.1 Baso # (Auto) 0.0 Abs Immat Gran (auto) 0.04 H Absolute Neuts (auto) 3.6 Absolute Nucleated RBC 0.000 Nucleated RBC % (auto) 0.0 Anion Gap 15 Estim Creat Clear Calc 124.1 Estimated GFR > 60 POC Glucose Random Glucose 279 H Lactic Acid 3.7 H* Lactic Acid F/U @ 2Hr 2.7 H* Lactic Acid F/U @ 4Hr Calcium 8.5 Magnesium 1.6 Total Bilirubin 3.5 H AST 61 H ALT 21 Alkaline Phosphatase 309 H Total Protein 7.7 Albumin 2.9 L Lipase 46 Urine Color Yellow Urine Appearance Clear Urine pH 7.0 Ur Specific [place] 1.010 Urine Protein Negative Urine Glucose (UA) Negative Urine Ketones Negative Urine Blood Negative Urine Nitrite Negative Ur Leukocyte Esterase Negative 11/29/23 11/29/23 11/29/23 17:15 18:33 20:31 MCV MCH MCHC RDW Plt Count MPV Immature Gran % (Auto) Neut % (Auto) Lymph % (Auto) [place] % (Auto) Eos % (Auto) Baso % (Auto) Lymph # (Auto) [place] # (Auto) Eos # (Auto) Baso # (Auto) Abs Immat Gran (auto) Absolute Neuts (auto) Absolute Nucleated RBC Nucleated RBC % (auto) Anion Gap Estim Creat Clear Calc Estimated GFR POC Glucose 156 H 183 H Random Glucose Lactic Acid Lactic Acid F/U @ 2Hr Lactic Acid F/U @ 4Hr 1.2 Calcium Magnesium Total Bilirubin AST ALT Alkaline Phosphatase Total Protein Albumin Lipase Urine Color Urine Appearance Urine pH Ur Specific [place] Urine Protein Urine Glucose (UA) Urine Ketones Urine Blood Urine Nitrite Ur Leukocyte Esterase 11/30/23 07:16 MCV MCH MCHC RDW Plt Count MPV Immature Gran % (Auto) Neut % (Auto) Lymph % (Auto) [place] % (Auto) Eos % (Auto) Baso % (Auto) Lymph # (Auto) [place] # (Auto) Eos # (Auto) Baso # (Auto) Abs Immat Gran (auto) Absolute Neuts (auto) Absolute Nucleated RBC Nucleated RBC % (auto) Anion Gap Estim Creat Clear Calc Estimated GFR POC Glucose 147 H Random Glucose Lactic Acid Lactic Acid F/U @ 2Hr Lactic Acid F/U @ 4Hr Calcium Magnesium Total Bilirubin AST ALT Alkaline Phosphatase Total Protein Albumin Lipase Urine Color Urine Appearance Urine pH Ur Specific [place] Urine Protein Urine Glucose (UA) Urine Ketones Urine Blood Urine Nitrite Ur Leukocyte Esterase Assessment and Plan (1) Septic arthritis of knee, right: Status: Acute Plan 58M PMH alcoholic cirrhosis, history of PE on Eliquis, mood disorder, gastroesophageal reflux disease who presented to the emergency department for evaluation of right knee pain. Right knee septic arthritis: Joint aspiration done in the ER last admission. Synovial WBC [id number] with 92% neutrophils. grew serratia follow up id continue rocephin plan for washout today with ortho History of PE Eliquis to restart after washout Insulin-dependent diabetes mellitus insulin sliding scale Alcoholic cirrhosis Continue diuretics and lactulose/rifaximin. On thiamine and folate portal hypertensive gastropathy On PPI and sucralfate DVT prophylaxis: restart Eliquis after washout Full code reason for continued hospitalization:iv abx for septic arthritis Quality Stroke Does the patient have a stroke diagnosis?: No VTE Prior VTE?: No VTE Risk Level:: Medical - moderate - high VTE Device Contraindication: N/A - Device Ordered VTE Drug Contraindication: Treatment Not Indicated
--- NOTE | 2023-11-30 09:39 | MHC.CM.PN ---
IMM DELIVERED PT LIVES WITH DAUGHTER, INDEPENDENT AT BASELINE. +HCP ON FILE BUT PT WISHES TO NAME SOMEONE ELSE. PCP DR. VALORIE GARCÍA DP:HOME, NO SERVICES IS THE GOAL BUT IF RECOMMENDED, PT IS OPEN TO [facility]. PT HAS OWN [facility] HOME. CM WILL CONTINUE TO FOLLOW FOR ANY CHANGE TO DC PLAN/NEEDS.
[2023-11-30] MEDS: Dextrose 5 % and 0.9 % NaCl 1,000 ML 50 ML IVCONT (09:58)
[2023-11-30] MEDS: rifAXIMin 550 MG TABLET PO ×2 (10:00→20:37)
[2023-11-30] MEDS: buPROPion HCl XL 300 MG TAB.ER.24H PO (10:00)
[2023-11-30] MEDS: carvediloL 6.25 MG TABLET PO ×2 (10:01→17:11)
[2023-11-30] MEDS: PARoxetine HCL 20 MG TABLET PO (10:01)
[2023-11-30] MEDS: Thiamine HCL 100 MG TABLET PO (10:01)
[2023-11-30] MEDS: Furosemide 40 MG TABLET 80 MG PO (10:01)
[2023-11-30] MEDS: Folic Acid 1 MG TABLET PO (10:02)
[2023-11-30] MEDS: Spironolactone 25 MG TABLET 200 MG PO (10:02)
[2023-11-30 11:21] LABS: Glucose, Whole Blood 148 mg/dL (60-115)
[2023-11-30 12:46] LABS: Glucose, Whole Blood 128 mg/dL (60-115)
--- NOTE | 2023-11-30 13:55 | MHC.SHP ---
Pre-Procedural Eval Section A - 24 Hr Update-Section A only Date of Service: 11/30/23 The patient is an INPATIENT: Yes Changes since office visit: No Cold of Flu in the past 2 weeks, No New Medical Problems, No Changes in Medication and No Patient answered all questions The patient has been examined within 24 hours of the surgical procedure. The History & Physical has been completed within 30 days and I have reviewed it.: Yes Section B - Complete if H&P > 30 days Chief Complaint: right knee septic arthritis Allergies: Allergies Allergy/AdvReac Type Severity Reaction Status Date / Time No Known Drug Allergies Allergy Mild NONE Verified 11/29/23 12:22 [NO KNOWN DRUG ALLERGIES] Plan I have reviewed the history and physical and performed a pertinent physical examination on my patient. No changes have occurred unless specified. Time Spent With Patient Time: Total time managing care of this patient today ____ minutes.
--- NOTE | 2023-11-30 14:08 | PC.NURSE ---
Patient in SSS. Dr. Mosher at bedside. Per him, no preop antibiotics needed.
--- NOTE | 2023-11-30 14:45 | P.CONAN_ITS ---
HPI - Anesthesia Eval Consult details Narrative: for right knee scope PMFSH Active Problems Active Problems: All Active Problems Septic arthritis of knee, right (Acute) Swelling of right knee joint (Acute) Septic arthritis of knee, right (Acute) Septic arthritis of knee (Acute) Abnormal gastrointestinal PET scan (Acute) Pulmonary nodule 1 cm or greater in diameter (Acute) Gallbladder polyp (Acute) Nausea (Acute) Pleural effusion (Acute) Shortness of breath (Acute) Anemia (Acute) Varices of esophagus determined by endoscopy (Acute) Ascites (Acute) Newly diagnosed diabetes (Acute) care home current use of diuretic (Acute) Acute pancreatitis (Acute) Blood D-dimer assay positive (Acute) Dyspnea (Acute) Pericardial effusion (Acute) Alcohol use disorder, moderate, in early remission (Acute) Hyperammonemia (Acute) Hepatopulmonary syndrome (Acute) Bronchopneumonia (Acute) Hydrothorax (Acute) Alcoholic cirrhosis of liver (Acute) Portal vein thrombosis (Acute) Alcohol withdrawal (Acute) Elevated liver function tests (Acute) Irritable bowel syndrome with diarrhea (Acute) Pleural effusion (Acute) Acute alcoholic pancreatitis (Acute) Neuropathic pain (Acute) Multiple adenomatous polyps (Acute) Degenerative disc disease, cervical (Acute) Chronic low back pain (Acute) Spinal stenosis (Acute) Pulmonary embolism, bilateral (Acute) Pleuritic chest pain (Acute) Recurrent left pleural effusion (Acute) Pleural effusion (Acute) Pericardial effusion (Acute) Tachycardia (Acute) Dyspnea (Acute) Past Medical History Medical History Pulmonary nodule 1 cm or greater in diameter Pleuritic chest pain Pulmonary embolism, bilateral Cirrhosis of liver Diabetes Alcohol use disorder, moderate, dependence Recurrent left pleural effusion Pleural effusion Pericardial effusion Tachycardia Dyspnea Hydropneumothorax Pleural effusion on right Decompensation of cirrhosis of liver Cirrhosis GERD (gastroesophageal reflux disease) Esophageal varices Chronic abdominal pain Gout Peripheral neuropathy Alcoholism Elevated LFTs Family History Family History Mother Cancer Sister Cancer Family history of problems with anesthesia: No Surgical History Surgical History History of abdominal paracentesis Hx of esophagogastroduodenoscopy History of thoracentesis H/O colonoscopy H/O cervical spine surgery H/O hemicolectomy History of Problems with Anesthesia: No Social History Social History Household Members: Other Household Members Other:: 1 Housing: Apartment Are you a primary caregivers non medical to a significant other at home: No Do you presently have visiting nurse or other home services: No Alcohol intake: current Alcohol intake frequency: a few times a week Alcohol type: hard liquor Patient Tobacco Use Status: Former Tobacco user Tobacco use type: Cigarette Years Smoked: 35 e-Cigarette/Vaping Use: Currently Using Second Hand Smoke Exposure: No Substance Use Type: Marijuana and Opiates Advance Directives Date on File: 11/27/22 service: No Current occupational status: unemployed Meds Allergies Allergy/AdvReac Type Severity Reaction Status Date / Time No Known Drug Allergies Allergy Mild NONE Verified 11/29/23 12:22 [NO KNOWN DRUG ALLERGIES] Active Medications: Current Medications Acamprosate (Acamprosate Calcium 333 Mg Tablet.Dr) 333 mg PO Q8H PRN PRN Reason: ALCOHOL ABSTINENCE Acetaminophen (Acetaminophen 325 Mg Tablet) 650 mg PO Q6H PRN PRN Reason: Pain, Mild (Pain Scale 1-3) Albuterol Sulfate (Albuterol Sulfate 90 Mcg 8 Gm Inhaler) 2 puff INHALE Q6H PRN PRN Reason: Shortness Of Breath Benzonatate (Benzonatate 100 Mg Capsule) 100 mg PO TID PRN PRN Reason: Cough Bupropion HCl (Bupropion Hcl Xl 300 Mg Tab.Er.24h) 300 mg PO DAILY [facility] Last Admin: 11/30/23 10:00 Dose: 300 mg Carvedilol (Carvedilol 6.25 Mg Tablet) 6.25 mg PO BIDWM [facility]; Protocol Last Admin: 11/30/23 10:01 Dose: 6.25 mg Docusate Sodium (Docusate Sodium 100 Mg Capsule) 100 mg PO DAILY PRN PRN Reason: Constipation Folic Acid (Folic Acid 1 Mg Tablet) 1 mg PO DAILY [facility] Last Admin: 11/30/23 10:02 Dose: 1 mg Furosemide (Furosemide 40 Mg Tablet) 80 mg PO DAILY [facility]; Protocol Last Admin: 11/30/23 10:01 Dose: 80 mg Glucose (Glucose Gel 15 Gm Gel..Gram.) 15 gm PO Q15M PRN; Protocol PRN Reason: per Hypoglycemia Standing Ord. Hydroxyzine HCl (Hydroxyzine Hcl 50 Mg Tablet) 50 mg PO DAILY PRN PRN Reason: itching Dextrose (D10) 250 mls @ 750 mls/hr IV Q15M PRN; Protocol PRN Reason: per Hypoglycemia Standing Ord. Dextrose/Sodium Chloride (D5ns) 1,000 mls @ 50 mls/hr IVCONT .Q20H [facility] Last Admin: 11/30/23 09:58 Dose: 50 mls/hr Insulin Human Lispro (Insulin Lispro 100 Unit/Ml 3 Ml Vial) 0 unit SUBCUT Q IDACHS [facility]; Protocol Last Admin: 11/30/23 11:20 Dose: Not Given Lactulose (Lactulose 20 Gm/30 Ml Solution) 20 gm PO TID PRN PRN Reason: hepatic encephalopathy Lorazepam (Lorazepam 0.5 Mg Tablet) 0.5 mg PO DAILY PRN PRN Reason: anxiety attack Melatonin (Melatonin 3 Mg Tablet) 6 mg PO BEDTIME PRN PRN Reason: Insomnia Morphine Sulfate (Morphine Sulfate 4 Mg/Ml Cartridge) 4 mg IVPUSH Q4H PRN; Protocol PRN Reason: Pain, Severe (Pain Scale 7-10) Last Admin: 11/30/23 12:12 Dose: 4 mg Omeprazole (Omeprazole 40 Mg Capsule.Dr) 40 mg PO DAILY@0630 [facility] Last Admin: 11/30/23 06:19 Dose: 40 mg Ondansetron HCl (Ondansetron Hcl 4 Mg/2 Ml Vial) 4 mg IVPUSH Q8H PRN PRN Reason: Nausea and Vomiting Paroxetine HCl (Paroxetine Hcl 20 Mg Tablet) 20 mg PO DAILY [facility] Last Admin: 11/30/23 10:01 Dose: 20 mg Rifaximin (Rifaximin 550 Mg Tablet) 550 mg PO BID [facility] Last Admin: 11/30/23 10:00 Dose: 550 mg Sodium Chloride (0.9 % Sodium Chloride Flush 3 Ml Syringe) 3 ml IVFLUSH QSHIFT [facility] Last Admin: 11/30/23 07:23 Dose: 3 ml Spironolactone (Spironolactone 25 Mg Tablet) 200 mg PO DAILY [facility]; Protocol Last Admin: 11/30/23 10:02 Dose: 200 mg Thiamine HCl (Thiamine Hcl 100 Mg Tablet) 100 mg PO DAILY [facility] Last Admin: 11/30/23 10:01 Dose: 100 mg Home Medications ?Medication ?Instructions ?Recorded ?Confirmed ?Last Taken ?Type bupropion HCl 300 mg 24 hr tablet, 300 mg PO DAILY 06/10/21 11/29/23 11/26/23 History extended release folic acid 1 mg tablet 1 mg PO DAILY 06/10/21 11/29/23 11/26/23 History thiamine HCl (vitamin B1) 100 mg 100 mg PO DAILY 06/10/21 11/29/23 11/26/23 History tablet albuterol sulfate 90 mcg/actuation 2 puff inhalation Q6H PRN 01/26/22 11/29/23 04/09/23 History aerosol inhaler (ProAir HFA) Shortness Of Breath hydroxyzine pamoate 25 mg capsule 50 mg PO DAILY PRN itching 01/26/22 11/29/23 04/08/23 History lorazepam 0.5 mg tablet 0.5 mg PO DAILY PRN anxiety attack 07/13/22 11/29/23 10/27/22 History paroxetine HCl 20 mg tablet 20 mg PO DAILY 07/13/22 11/29/23 11/26/23 History insulin glargine 100 unit/mL (3 20 unit subcut DAILY PRN elevated 11/27/22 11/29/23 04/08/23 History mL) subcutaneous pen blood sugar insulin lispro 100 unit/mL 1 sliding scale dose subcut QIDACHS 03/03/23 11/29/23 11/26/23 History subcutaneous pen oxycodone 5 mg capsule 5 - 10 mg PO DAILY PRN Pain 04/09/23 11/29/23 Unknown History acamprosate 333 mg tablet,delayed 333 mg PO Q8H PRN ALCOHOL 11/27/23 11/29/23 Unknown History release ABSTINENCE carvedilol 6.25 mg tablet 6.25 mg PO BIDWM 11/27/23 11/29/23 11/26/23 History lactulose 10 gram/15 mL oral 30 ml PO TID PRN hepatic 11/27/23 11/29/23 Unknown History solution encephalopathy omeprazole 40 mg capsule,delayed 40 mg PO DAILY@0630 11/27/23 11/29/23 11/26/23 History release Exam Height,Weight and Vital Signs: Height 6 ft 5 in Weight 112.7 kg Last Vital Signs Temp 98.6 F 11/30/23 12:40 Pulse 85 06/07/24 12:40 Resp 18 11/30/23 12:40 BP 134/89 11/30/23 12:40 Pulse Ox 97 11/30/23 12:40 O2 Del Method Room Air 11/30/23 12:40 Pertinent Lab Results Pertinent Lab Results: Laboratory Tests 11/29/23 11/29/23 11/29/23 12:38 12:49 15:03 WBC 5.1 RBC 3.73 L Hgb 10.4 L Hct 32.4 L MCV 86.9 MCH 27.9 MCHC 32.1 RDW 19.8 H Plt Count 175 D MPV 8.6 L Immature Gran % (Auto) 0.8 H Neut % (Auto) 71.3 Lymph % (Auto) 12.5 L [place] % (Auto) 13.8 H Eos % (Auto) 1.0 Baso % (Auto) 0.6 Lymph # (Auto) 0.6 L [place] # (Auto) 0.7 Eos # (Auto) 0.1 Baso # (Auto) 0.0 Abs Immat Gran (auto) 0.04 H Absolute Neuts (auto) 3.6 Absolute Nucleated RBC 0.000 Nucleated RBC % (auto) 0.0 Sodium 135 Potassium 3.4 Chloride 98 Carbon Dioxide 25 Anion Gap 15 BUN 11 Creatinine 0.92 Estim Creat Clear Calc 124.1 Estimated GFR > 60 POC Glucose Random Glucose 279 H Lactic Acid 3.7 H* Lactic Acid F/U @ 2Hr 2.7 H* Lactic Acid F/U @ 4Hr Calcium 8.5 Magnesium 1.6 Total Bilirubin 3.5 H AST 61 H ALT 21 Alkaline Phosphatase 309 H Total Protein 7.7 Albumin 2.9 L Lipase 46 Urine Color Yellow Urine Appearance Clear Urine pH 7.0 Ur Specific [place] 1.010 Urine Protein Negative Urine Glucose (UA) Negative Urine Ketones Negative Urine Blood Negative Urine Nitrite Negative Ur Leukocyte Esterase Negative 11/29/23 11/29/23 11/29/23 17:15 18:33 20:31 WBC RBC Hgb Hct MCV MCH MCHC RDW Plt Count MPV Immature Gran % (Auto) Neut % (Auto) Lymph % (Auto) [place] % (Auto) Eos % (Auto) Baso % (Auto) Lymph # (Auto) [place] # (Auto) Eos # (Auto) Baso # (Auto) Abs Immat Gran (auto) Absolute Neuts (auto) Absolute Nucleated RBC Nucleated RBC % (auto) Sodium Potassium Chloride Carbon Dioxide Anion Gap BUN Creatinine Estim Creat Clear Calc Estimated GFR POC Glucose 156 H 183 H Random Glucose Lactic Acid Lactic Acid F/U @ 2Hr Lactic Acid F/U @ 4Hr 1.2 Calcium Magnesium Total Bilirubin AST ALT Alkaline Phosphatase Total Protein Albumin Lipase Urine Color Urine Appearance Urine pH Ur Specific [place] Urine Protein Urine Glucose (UA) Urine Ketones Urine Blood Urine Nitrite Ur Leukocyte Esterase 11/30/23 11/30/23 11/30/23 07:16 11:16 12:42 WBC RBC Hgb Hct MCV MCH MCHC RDW Plt Count MPV Immature Gran % (Auto) Neut % (Auto) Lymph % (Auto) [place] % (Auto) Eos % (Auto) Baso % (Auto) Lymph # (Auto) [place] # (Auto) Eos # (Auto) Baso # (Auto) Abs Immat Gran (auto) Absolute Neuts (auto) Absolute Nucleated RBC Nucleated RBC % (auto) Sodium Potassium Chloride Carbon Dioxide Anion Gap BUN Creatinine Estim Creat Clear Calc Estimated GFR POC Glucose 147 H 148 H 128 H Random Glucose Lactic Acid Lactic Acid F/U @ 2Hr Lactic Acid F/U @ 4Hr Calcium Magnesium Total Bilirubin AST ALT Alkaline Phosphatase Total Protein Albumin Lipase Urine Color Urine Appearance Urine pH Ur Specific [place] Urine Protein Urine Glucose (UA) Urine Ketones Urine Blood Urine Nitrite Ur Leukocyte Esterase Airway Mallampati Class: II TM Dist: >3cm Neck ROM: Full Loose/Missing/Broken Teeth: Yes, Upper and Lower Heart: ok Lungs: ok. SpO2 96% RA. Assessment and Plan Assessment Anesthesia Assessment: Anesthesia Plan Discussed and Chart Reviewed Final Anesthetic Review Family History of Problems with Anesthesia: No History of Problems with Anesthesia: No NPO: Yes ASA Class: IV Final Preanesthetic Review: No Changes in Pt Med Stat, Meds/Allgs Chart Reviewed, Consent Obtained/Reviewed and Anes Risks/Benef Reviewed Patient Risk: High Procedure Risk: Low Anesthetic Plan Anesthetic Plan: GA and Agree w/ Assess. and Plan Disposition: Standard PACU
--- NOTE | 2023-11-30 15:54 | PM.OP ---
Brief Operative Note Date of Service: 11/30/23 Pre-op diagnosis: RIght septic knee Post-op diagnosis: same Procedure: Arthroscopic lavage right knee Implants: none Surgeon: Sudheer Mosher MD Anesthesia: GETA Was an Alternative [employer] used for this Procedure?: No Estimated blood loss (mL): 25 IV fluids (mL): 500 Pathology: other Condition: stable Disposition: PACU
--- NOTE | 2023-11-30 16:34 | W.PM.IDCN ---
History of Present Illness Data of Consult Service Date: 11/30/23 Requesting physician: Robert Casas Primary Care Provider: MD TRENT Obando Reason for consult: right knee swelling He was admitted for right knee pain and swelling. He left AMA on po Levaquin and came back. It is not clear if taking Levaquin. Review of Systems Review of Systems: Yes all other systems are reviewed and are negative [facility] Past Medical History Medical History Pulmonary nodule 1 cm or greater in diameter Pleuritic chest pain Pulmonary embolism, bilateral Cirrhosis of liver Diabetes Alcohol use disorder, moderate, dependence Recurrent left pleural effusion Pleural effusion Pericardial effusion Tachycardia Dyspnea Hydropneumothorax Pleural effusion on right Decompensation of cirrhosis of liver Cirrhosis GERD (gastroesophageal reflux disease) Esophageal varices Chronic abdominal pain Gout Peripheral neuropathy Alcoholism Elevated LFTs Family History Family History Mother Cancer Sister Cancer Surgical History Surgical History S/P right knee arthroscopy History of abdominal paracentesis Hx of esophagogastroduodenoscopy History of thoracentesis H/O colonoscopy H/O cervical spine surgery H/O hemicolectomy Social History Social History Household Members: Other Household Members Other:: 1 Housing: Apartment Are you a primary rn urgent care to a significant other at home: No Do you presently have visiting nurse or other home services: No Alcohol intake: current Alcohol intake frequency: holidays/special occasions only Alcohol type: beer Comment: counts correct Patient Tobacco Use Status: Former Tobacco user Tobacco use type: Smokeless Tobacco Years Smoked: 35 e-Cigarette/Vaping Use: Currently Using Second Hand Smoke Exposure: No Substance Use Type: Marijuana Advance Directives Date on File: 11/27/22 service: No Current occupational status: unemployed Meds Allergies Allergy/AdvReac Type Severity Reaction Status Date / Time No Known Drug Allergies Allergy Mild NONE Verified 05/20/24 08:26 [NO KNOWN DRUG ALLERGIES] Active Medications: Current Medications Acamprosate (Acamprosate Calcium 333 Mg Jason.) 333 mg PO Q8H PRN PRN Reason: ALCOHOL ABSTINENCE Acetaminophen (Acetaminophen 325 Mg Tablet) 650 mg PO Q6H PRN PRN Reason: Pain, Mild (Pain Scale 1-3) Albuterol Sulfate (Albuterol Sulfate 90 Mcg 8 Gm Inhaler) 2 puff INHALE Q6H PRN PRN Reason: Shortness Of Breath Benzonatate (Benzonatate 100 Mg Capsule) 100 mg PO TID PRN PRN Reason: Cough Bupropion HCl (Bupropion Hcl Xl 300 Mg Tab.Er.24h) 300 mg PO DAILY [facility] Last Admin: 11/30/23 10:00 Dose: 300 mg Carvedilol (Carvedilol 6.25 Mg Tablet) 6.25 mg PO BIDWM [facility]; Protocol Last Admin: 11/30/23 10:01 Dose: 6.25 mg Docusate Sodium (Docusate Sodium 100 Mg Capsule) 100 mg PO DAILY PRN PRN Reason: Constipation Fentanyl (Fentanyl Citrate/Pf 100 Mcg/2 Ml Vial) 50 mcg IVPUSH Q5M PRN; Protocol PRN Reason: Pain, Moderate(Pain Scale 4-6) Stop: 11/30/23 21:26 Folic Acid (Folic Acid 1 Mg Tablet) 1 mg PO DAILY [facility] Last Admin: 11/30/23 10:02 Dose: 1 mg Furosemide (Furosemide 40 Mg Tablet) 80 mg PO DAILY [facility]; Protocol Last Admin: 11/30/23 10:01 Dose: 80 mg Glucose (Glucose Gel 15 Gm Gel..Gram.) 15 gm PO Q15M PRN; Protocol PRN Reason: per Hypoglycemia Standing Ord. Hydroxyzine HCl (Hydroxyzine Hcl 50 Mg Tablet) 50 mg PO DAILY PRN PRN Reason: itching Dextrose (D10) 250 mls @ 750 mls/hr IV Q15M PRN; Protocol PRN Reason: per Hypoglycemia Standing Ord. Dextrose/Sodium Chloride (D5ns) 1,000 mls @ 50 mls/hr IVCONT .Q20H [facility] Last Admin: 11/30/23 09:58 Dose: 50 mls/hr Insulin Human Lispro (Insulin Lispro 100 Unit/Ml 3 Ml Vial) 0 unit SUBCUT QIDACHS [facility]; Protocol Last Admin: 11/30/23 11:20 Dose: Not Given Lactulose (Lactulose 20 Gm/30 Ml Solution) 20 gm PO TID PRN PRN Reason: hepatic encephalopathy Lorazepam (Lorazepam 0.5 Mg Tablet) 0.5 mg PO DAILY PRN PRN Reason: anxiety attack Melatonin (Melatonin 3 Mg Tablet) 6 mg PO BEDTIME PRN PRN Reason: Insomnia Morphine Sulfate (Morphine Sulfate 4 Mg/Ml Cartridge) 4 mg IVPUSH Q4H PRN; Protocol PRN Reason: Pain, Severe (Pain Scale 7-10) Last Admin: 11/30/23 12:12 Dose: 4 mg Omeprazole (Omeprazole 40 Mg Capsule.Dr) 40 mg PO DAILY@0630 [facility] Last Admin: 11/30/23 06:19 Dose: 40 mg Ondansetron HCl (Ondansetron Hcl 4 Mg/2 Ml Vial) 4 mg IVPUSH Q8H PRN PRN Reason: Nausea and Vomiting Ondansetron HCl (Ondansetron Hcl 4 Mg/2 Ml Vial) 4 mg IVPUSH ONCE PRN PRN Reason: Nausea and Vomiting Stop: 11/30/23 21:27 Oxycodone HCl (Oxycodone Hcl Immed Release 5 Mg Tablet) 10 mg PO ONCE PRN PRN Reason: Pain, Severe (Pain Scale 7-10) Stop: 11/30/23 21:27 Paroxetine HCl (Paroxetine Hcl 20 Mg Tablet) 20 mg PO DAILY [facility] Last Admin: 11/30/23 10:01 Dose: 20 mg Rifaximin (Rifaximin 550 Mg Tablet) 550 mg PO BID [facility] Last Admin: 11/30/23 10:00 Dose: 550 mg Sodium Chloride (0.9 % Sodium Chloride Flush 3 Ml Syringe) [facility] Last Admin: 11/30/23 07:23 Dose: 3 ml Spironolactone (Spironolactone 25 Mg Tablet) 200 mg PO DAILY [facility]; Protocol Last Admin: 11/30/23 10:02 Dose: 200 mg Thiamine HCl (Thiamine Hcl 100 Mg Tablet) 100 mg PO DAILY [facility] Last Admin: 11/30/23 10:01 Dose: 100 mg Home Medications ?Medication ?Instructions ?Recorded ?Confirmed ?Last Taken ?Type bupropion HCl 300 mg 24 hr tablet, 300 mg PO DAILY 06/10/21 05/20/24 04/16/24 History extended release folic acid 1 mg tablet 1 mg PO DAILY 06/10/21 05/20/24 04/16/24 History thiamine HCl (vitamin B1) 100 mg 100 mg PO DAILY 06/10/21 05/20/24 04/16/24 History tablet hydroxyzine pamoate 25 mg capsule 50 mg PO DAILY PRN itching 01/26/22 05/20/24 04/16/24 History lorazepam 0.5 mg tablet 0.5 mg PO DAILY PRN anxiety attack 07/13/22 05/20/24 04/16/24 History oxycodone 5 mg tablet 5 mg PO BID PRN Pain 03/31/24 05/20/24 04/16/24 History albuterol sulfate 90 mcg/actuation 2 puff inhalation Q6H PRN 04/18/24 05/20/24 04/16/24 History aerosol inhaler Shortness Of Breath Or Wheezing Physical Exam Vital Signs: Vital Signs: Last Vital Signs Temp 97.3 F 11/30/23 16:22 Pulse 79 11/30/23 16:22 Resp 18 11/30/23 16:22 BP 153/84 H 11/30/23 16:22 Pulse Ox 96 11/30/23 16:22 O2 Del Method Room Air 11/30/23 16:22 BMI result Body Mass Index 29.5 Const: General: cooperative HEENT: Head: Yes normal to inspection Face and sinus: Yes normal facial exam Mouth: Normal oral and palatal mucosa present Teeth and gingiva: dentition normal Eyes: General: appearance normal, both eyes and all related structures Pupils: Equal, round and reactive pupils present Resp: Effort & Inspection: normal respiratory effort Cardio: Rate: regular rate Rhythm: regular rhythm GI: Palpation (GI): Soft to palpation and nontender : General: Yes no CVA tenderness Back/Spine/Pelvis: Back: no CVA tenderness Skin: General skin exam: no rashes or lesions noted Neuro: General: moves all extremities Cranial nerves: Yes Equal, round and reactive pupils present Extrem: Other: right knee swelling Psych: Appearance: grossly normal Results Labs 12/02/23 06:17 12/02/23 06:17 Microbiology Microbiology Results: Microbiology 11/29/23 12:38 Blood - Venous Blood Culture - Preliminary No growth after 24 hours. 11/29/23 12:38 Blood - Venous Blood Culture - Preliminary No growth after 24 hours. Assessment and Plan (1) Septic arthritis of knee, right: Status: Acute Plan Serratia marcescans Po Levaquin for six weeks F/u orthopedics.
[2023-11-30 17:09] LABS: Glucose, Whole Blood 114 mg/dL (60-115)
[2023-11-30] MEDS: oxyCODONE HCl Immed Release 5 MG TABLET 10 MG PO (19:45)
[2023-11-30 20:28] LABS: Glucose, Whole Blood 180 mg/dL (60-115)
[2023-11-30] MEDS: Insulin Lispro 100 UNIT/ML 3 ML VIAL SUBCUT (20:37)
[2023-12-01] VITALS (8 sets, daily range): BP systolic 114–139; BP diastolic 69–85; PULSE 87–101; RESP 16–18; TEMP 36–36.6; O2SAT 93–96
[2023-12-01] MEDS: Omeprazole 40 MG CAPSULE.DR PO (05:38)
[2023-12-01] MEDS: Morphine Sulfate 4 MG/ML CARTRIDGE IVPUSH ×2 (05:48→09:56)
[2023-12-01 06:48] LABS: Hematocrit 34.3 % (42.0-52.0); Hemoglobin 10.8 g/dl (14.0-18.0); Mean Corpuscular HGB Conc 31.5 g/dl (31.0-36.0); Mean Corpuscular Hemoglobin 27.3 pg (27.0-33.0); Mean Corpuscular Volume 86.8 fL (80.0-98.0); Mean Platelet Volume 9.1 fL (9.4-12.4); Platelet Count 260 X10*3/uL (160-400); Red Blood Count 3.95 X10*6/uL (4.60-5.80); Red Cell Distribution Width 19.9 % (11.0-16.0); White Blood Count 7.7 X10*3/uL (4.8-10.8)
[2023-12-01 07:09] LABS: Anion Gap 12 (12-20); Blood Urea Nitrogen 10 mg/dL (9-16); Calcium 8.8 mg/dL (8.4-10.2); Carbon Dioxide 30 mmol/L (22-29); Chloride 96 mmol/L (96-108); Creatinine Clr Calc Pharmacy 126.3; Estimated Glomerular Filt Rate > 60; Glucose Fasting 136 mg/dL (60-99); Potassium 3.4 mmol/L (3.3-5.1); Sodium 135 mmol/L (135-145)
--- NOTE | 2023-12-01 07:33 | PM.PNORT ---
Subjective Subjective Date of Service: 12/01/23 Interval history: POD1 s/p right knee arhtroscopic lavage Patient is resting in bed in pain No overnight events Pain is uncontrolled No additional complaints Physical Exam Vital Signs: Vital Signs: Last Vital Signs Temp 96.9 F 12/01/23 04:00 Pulse 92 12/01/23 04:00 Resp 16 12/01/23 04:00 BP 125/81 12/01/23 04:00 Pulse Ox 95 12/01/23 04:00 O2 Del Method Room Air 12/01/23 04:00 BMI result Body Mass Index 29.5 Const: General: cooperative, healthy appearing and no acute distress Resp: Effort & Inspection: normal respiratory effort and able to speak in complete sentences Cardio: Rate: regular rate Peripheral pulses: Peripheral pulses 2+ throughout GI: Palpation (GI): Soft to palpation Skin: Lesions: no lesions Rashes: no rashes Extrem: Other: Rt knee pain with any ROM. Drain intact with bloody drainage. Sensation intact. Able to dorsi/plantar flex. NVI. Procedures Date of Service Date of Service: 12/01/23 Progress Note: A&P Assessment and plan (1) Septic arthritis of knee, right: Status: Acute Assessment and Plan: Continue pain mgmnt - Medications adjusted due to uncontrolled pain Begin PT for ROM and gait training Continue abx Anticipate drain pull tomorrow Dispo planning-Pain mgmnt, abx treatment for septic arthritis (2) Swelling of right knee joint: Status: Acute Time Spent With Patient Time: Total time managing care of this patient today ____ minutes. Quality Stroke Does the patient have a stroke diagnosis?: No VTE Prior VTE?: No VTE Risk Level:: Medical - moderate - high VTE Device Contraindication: N/A - Device Ordered VTE Drug Contraindication: Treatment Not Indicated
[2023-12-01 07:38] LABS: Glucose, Whole Blood 137 mg/dL (60-115)
[2023-12-01] MEDS: Apixaban 5 MG TABLET PO (07:53)
[2023-12-01] MEDS: PARoxetine HCL 20 MG TABLET PO (07:53)
[2023-12-01] MEDS: Folic Acid 1 MG TABLET PO (07:53)
[2023-12-01] MEDS: carvediloL 6.25 MG TABLET PO ×2 (07:54→17:34)
[2023-12-01] MEDS: Spironolactone 25 MG TABLET 200 MG PO (07:54)
[2023-12-01] MEDS: 0.9 % Sodium Chloride Flush 3 ML SYRINGE IVFLUSH ×2 (07:54→20:24)
[2023-12-01] MEDS: levoFLOXacin 500 MG TABLET PO (07:54)
[2023-12-01] MEDS: Thiamine HCL 100 MG TABLET PO (07:54)
[2023-12-01] MEDS: buPROPion HCl XL 300 MG TAB.ER.24H PO (07:54)
[2023-12-01] MEDS: Furosemide 40 MG TABLET 80 MG PO (07:54)
[2023-12-01] MEDS: rifAXIMin 550 MG TABLET PO ×2 (07:54→20:23)
--- NOTE | 2023-12-01 08:14 | HO.POSTANES ---
Post Anesthesia Evaluation Post Anesthesia Evaluation Date of Service: 12/01/23 Vital Signs: Vital Signs Temp Pulse Resp BP Pulse Ox O2 Del Method 12/01/23 07:30 97.0 F 93 18 139/83 95 Room Air 12/01/23 04:00 96.9 F 92 16 125/81 95 Room Air 11/30/23 23:29 97.1 F 99 16 129/85 94 Room Air Anesthesia: General LMA Mental Status: Awake Pain Control: Satisfactory Nausea/Vomiting: None Hydration: Adequate Anesthesia-Related Issues: No Anes. Related Issues
--- NOTE | 2023-12-01 10:29 | HO.PM.IMPN ---
Subjective Subjective Date of Service: 12/01/23 Interval History: severe right knee pain Physical Exam Vital Signs: Vital Signs: Last Vital Signs Temp 97.0 F 12/01/23 07:30 Pulse 93 12/01/23 07:30 Resp 18 12/01/23 07:30 BP 139/83 12/01/23 07:30 Pulse Ox 95 12/01/23 07:30 O2 Del Method Room Air 12/01/23 07:30 BMI result Body Mass Index 29.5 Const: General: cooperative, healthy appearing and no acute distress Resp: Effort & Inspection: normal respiratory effort and able to speak in complete sentences Cardio: Rate: regular rate Peripheral pulses: Peripheral pulses 2+ throughout GI: Palpation (GI): Soft to palpation Skin: Lesions: no lesions Rashes: no rashes Extrem: Other: Rt knee without redness, or ecchymosis. Llarge effusion. He is able to ambulate without pain. Full ROM without pain Objective Data Active Medications Acamprosate (Acamprosate Calcium 333 Mg Tablet.) 333 mg PO Q8H PRN PRN Reason: ALCOHOL ABSTINENCE Acetaminophen (Acetaminophen 325 Mg Tablet) 650 mg PO Q6H PRN PRN Reason: Pain, Mild (Pain Scale 1-3) Albuterol Sulfate (Albuterol Sulfate 90 Mcg 8 Gm Inhaler) 2 puff INHALE Q6H PRN PRN Reason: Shortness Of Breath Apixaban (Apixaban 5 Mg Tablet) 5 mg PO BID [facility] Last Admin: 12/01/23 07:53 Dose: 5 mg Documented By: RASHARD Benzonatate (Benzonatate 100 Mg Capsule) 100 mg PO TID PRN PRN Reason: Cough Bupropion HCl (Bupropion Hcl Xl 300 Mg Tab.Er.24h) 300 mg PO DAILY [facility] Last Admin: 12/01/23 07:54 Dose: 300 mg Documented By: RASHARD Carvedilol (Carvedilol 6.25 Mg Tablet) 6.25 mg PO BIDWM [facility]; Protocol Last Admin: 12/01/23 07:54 Dose: 6.25 mg Documented By: RASHARD Docusate Sodium (Docusate Sodium 100 Mg Capsule) 100 mg PO DAILY PRN PRN Reason: Constipation Folic Acid (Folic Acid 1 Mg Tablet) 1 mg PO DAILY [facility] Last Admin: 12/01/23 07:53 Dose: 1 mg Documented By: RASHARD Furosemide (Furosemide 40 Mg Tablet) 80 mg PO DAILY [facility]; Protocol Last Admin: 12/01/23 07:54 Dose: 80 mg Documented By: ARSHARD Glucose (Glucose Gel 15 Gm Gel..Gram.) 15 gm PO Q15M PRN; Protocol PRN Reason: per Hypoglycemia Standing Ord. Hydroxyzine HCl (Hydroxyzine Hcl 50 Mg Tablet) 50 mg PO DAILY PRN PRN Reason: itching Dextrose (D10) 250 mls @ 750 mls/hr IV Q15M PRN; Protocol PRN Reason: per Hypoglycemia Standing Ord. Insulin Human Lispro (Insulin Lispro 100 Unit/Ml 3 Ml Vial) 0 unit SUBCUT QIDACHS [facility]; Protocol Last Admin: 12/01/23 07:40 Dose: Not Given Documented By: RASHARD Non-Admin Reason: No Insulin Coverage Lactulose (Lactulose 20 Gm/30 Ml Solution) 20 gm PO TID PRN PRN Reason: hepatic encephalopathy Levofloxacin (Levofloxacin 500 Mg Tablet) 500 mg PO Q24H [facility] Last Admin: 12/01/23 07:54 Dose: 500 mg Documented By: RASHARD Lorazepam (Lorazepam 0.5 Mg Tablet) 0.5 mg PO DAILY PRN PRN Reason: anxiety attack Melatonin (Melatonin 3 Mg Tablet) 6 mg PO BEDTIME PRN PRN Reason: Insomnia Morphine Sulfate (Morphine Sulfate 4 Mg/Ml Cartridge) 4 mg IVPUSH Q4H PRN; Protocol PRN Reason: Pain, Severe (Pain Scale 7-10) Last Admin: 12/01/23 09:56 Dose: 4 mg Documented By: RASHARD Omeprazole (Omeprazole 40 Mg Capsule.) 40 mg PO DAILY@0630 [facility] Last Admin: 12/01/23 05:38 Dose: 40 mg Documented By: TEMITOPE Ondansetron HCl (Ondansetron Hcl 4 Mg/2 Ml Vial) 4 mg IVPUSH Q8H PRN PRN Reason: Nausea and Vomiting Oxycodone HCl (Oxycodone Hcl Immed Release 5 Mg Tablet) 5 mg PO Q4H PRN PRN Reason: Pain, Moderate(Pain Scale 4-6) Oxycodone HCl (Oxycodone Hcl Er 10 Mg Tab.Er.12h) 10 mg PO BID [facility] Paroxetine HCl (Paroxetine Hcl 20 Mg Tablet) 20 mg PO DAILY [facility] Last Admin: 12/01/23 07:53 Dose: 20 mg Documented By: RASHARD Rifaximin (Rifaximin 550 Mg Tablet) 550 mg PO BID [facility] Last Admin: 12/01/23 07:54 Dose: 550 mg Documented By: RASHARD Sodium Chloride (0.9 % Sodium Chloride Flush 3 Ml Syringe) 3 ml IVFLUSH QSHIFT [facility] Last Admin: 12/01/23 07:54 Dose: 3 ml Documented By: RASHARD Spironolactone (Spironolactone 25 Mg Tablet) 200 mg PO DAILY [facility]; Protocol Last Admin: 12/01/23 07:54 Dose: 200 mg Documented By: RASHARD Thiamine HCl (Thiamine Hcl 100 Mg Tablet) 100 mg PO DAILY [facility] Last Admin: 12/01/23 07:54 Dose: 100 mg Documented By: RASHARD Labs 12/01/23 05:58 12/01/23 05:58 Labs: Laboratory Results - last 24 hr 11/30/23 11/30/23 11/30/23 11:16 12:42 17:06 MCV MCH MCHC RDW Plt Count MPV Absolute Nucleated RBC Nucleated RBC % (auto) Anion Gap Estim Creat Clear Calc Estimated GFR POC Glucose 148 H 128 H 114 Fasting Glucose Calcium 11/30/23 12/01/23 12/01/23 20:24 05:58 07:29 MCV 86.8 MCH 27.3 MCHC 31.5 RDW 19.9 H Plt Count 260 D MPV 9.1 L Absolute Nucleated RBC 0.000 Nucleated RBC % (auto) 0.0 Anion Gap 12 Estim Creat Clear Calc 126.3 Estimated GFR > 60 POC Glucose 180 H 137 H Fasting Glucose 136 H Calcium 8.8 Microbiology Microbiology Results: Microbiology 11/30/23 15:00 Gram Stain - Final Knee,Right 11/29/23 12:38 Blood Culture - Preliminary Blood - Venous No growth after 24 hours. 11/29/23 12:38 Blood Culture - Preliminary Blood - Venous No growth after 24 hours. Assessment and Plan (1) Septic arthritis of knee, right: Status: Acute Plan 58M PMH alcoholic cirrhosis, history of PE on Eliquis, mood disorder, gastroesophageal reflux disease who presented to the emergency department for evaluation of right knee pain. Right knee septic arthritis: Joint aspiration done in the ER last admission. Synovial WBC 55361 with 92% neutrophils. grew serratia continue levaquin po (6 weeks, end january 11, 2024) s/p washout 11/30/23, drain in place History of PE Eliquis to restart tonight Insulin-dependent diabetes mellitus insulin sliding scale Alcoholic cirrhosis Continue diuretics and lactulose/rifaximin. On thiamine and folate portal hypertensive gastropathy On PPI and sucralfate DVT prophylaxis: restart Eliquis tonight Full code reason for continued hospitalization: severe pain right knee Quality Stroke Does the patient have a stroke diagnosis?: No VTE Prior VTE?: No VTE Risk Level:: Medical - moderate - high VTE Device Contraindication: N/A - Device Ordered VTE Drug Contraindication: Treatment Not Indicated
[2023-12-01] MEDS: HYDROmorphone HCl 1 MG/ML SYRINGE IVPUSH ×2 (10:49→11:52)
[2023-12-01 11:36] LABS: Glucose, Whole Blood 122 mg/dL (60-115)
[2023-12-01] MEDS: Ketorolac Tromethamine 15 MG/ML VIAL IVPUSH (11:51)
[2023-12-01] MEDS: HYDROmorphone HCl 1 MG/ML SYRINGE 2 MG IVPUSH ×3 (14:04→21:10)
[2023-12-01 16:58] LABS: Glucose, Whole Blood 133 mg/dL (60-115)
[2023-12-01 20:07] LABS: Glucose, Whole Blood 144 mg/dL (60-115)
[2023-12-01] MEDS: oxyCODONE HCl ER 10 MG TAB.ER.12H PO (20:23)
--- NOTE | 2023-12-01 22:02 | PC.NURSE ---
Pt draining large amts of bloody drainage from neal drain pm dose of eliquis held.
[2023-12-02 03:12] VITALS: BP 108/71; PULSE 100; RESP 17; TEMP 36.6; O2SAT 95
[2023-12-02] MEDS: HYDROmorphone HCl 1 MG/ML SYRINGE 2 MG IVPUSH ×3 (03:15→09:40)
[2023-12-02] MEDS: Omeprazole 40 MG CAPSULE.DR PO (05:22)
[2023-12-02] MEDS: levoFLOXacin 500 MG TABLET PO (06:33)
[2023-12-02 06:39] LABS: Hematocrit 29.6 % (42.0-52.0); Hemoglobin 9.4 g/dl (14.0-18.0); Mean Corpuscular HGB Conc 31.8 g/dl (31.0-36.0); Mean Corpuscular Hemoglobin 27.5 pg (27.0-33.0); Mean Corpuscular Volume 86.5 fL (80.0-98.0); Mean Platelet Volume 8.8 fL (9.4-12.4); Platelet Count 207 X10*3/uL (160-400); Red Blood Count 3.42 X10*6/uL (4.60-5.80); Red Cell Distribution Width 19.2 % (11.0-16.0); White Blood Count 7.8 X10*3/uL (4.8-10.8)
[2023-12-02 07:07] LABS: Anion Gap 11 (12-20); Blood Urea Nitrogen 12 mg/dL (9-16); Calcium 8.7 mg/dL (8.4-10.2); Carbon Dioxide 27 mmol/L (22-29); Chloride 95 mmol/L (96-108); Creatinine Clr Calc Pharmacy 149.3; Estimated Glomerular Filt Rate > 60; Glucose Fasting 135 mg/dL (60-99); Potassium 3.4 mmol/L (3.3-5.1); Sodium 130 mmol/L (135-145)
[2023-12-02 07:42] VITALS: BP 132/88; PULSE 96; RESP 14; TEMP 36.1; O2SAT 95
[2023-12-02 07:48] LABS: Glucose, Whole Blood 126 mg/dL (60-115)
[2023-12-02] MEDS: Folic Acid 1 MG TABLET PO (08:49)
[2023-12-02] MEDS: Thiamine HCL 100 MG TABLET PO (08:49)
[2023-12-02] MEDS: rifAXIMin 550 MG TABLET PO (08:49)
[2023-12-02] MEDS: Furosemide 40 MG TABLET 80 MG PO (08:49)
[2023-12-02] MEDS: oxyCODONE HCl ER 10 MG TAB.ER.12H PO (08:49)
--- NOTE | 2023-12-02 08:49 | HO.PM.IMPN ---
Subjective Subjective Date of Service: 12/02/23 Interval History: still with right knee pain, though better Physical Exam Vital Signs: Vital Signs: Last Vital Signs Temp 97.0 F 12/02/23 07:42 Pulse 96 12/02/23 07:42 Resp 14 12/02/23 07:42 BP 132/88 12/02/23 07:42 Pulse Ox 95 12/02/23 07:42 O2 Del Method Room Air 12/02/23 07:42 BMI result Body Mass Index 29.5 Const: General: cooperative, healthy appearing and no acute distress Resp: Effort & Inspection: normal respiratory effort and able to speak in complete sentences Cardio: Rate: regular rate Peripheral pulses: Peripheral pulses 2+ throughout GI: Palpation (GI): Soft to palpation Skin: Lesions: no lesions Rashes: no rashes Extrem: Other: Rt knee without redness, or ecchymosis. Llarge effusion. He is able to ambulate without pain. Full ROM without pain Objective Data Active Medications Acamprosate (Acamprosate Calcium 333 Mg Tablet.Dr) 333 mg PO Q8H PRN PRN Reason: ALCOHOL ABSTINENCE Acetaminophen (Acetaminophen 325 Mg Tablet) 650 mg PO Q6H PRN PRN Reason: Pain, Mild (Pain Scale 1-3) Albuterol Sulfate (Albuterol Sulfate 90 Mcg 8 Gm Inhaler) 2 puff INHALE Q6H PRN PRN Reason: Shortness Of Breath Apixaban (Apixaban 5 Mg Tablet) 5 mg PO BID [facility] Last Admin: 12/01/23 20:20 Dose: Not Given Documented By: TEMITOPE Non-Admin Reason: large amt of blood in neal drain Benzonatate (Benzonatate 100 Mg Capsule) 100 mg PO TID PRN PRN Reason: Cough Bupropion HCl (Bupropion Hcl Xl 300 Mg Tab.Er.24h) 300 mg PO DAILY [facility] Last Admin: 12/01/23 07:54 Dose: 300 mg Documented By: RASHARD Carvedilol (Carvedilol 6.25 Mg Tablet) 6.25 mg PO BIDWM [facility]; Protocol Last Admin: 12/01/23 17:34 Dose: 6.25 mg Documented By: RASHARD Docusate Sodium (Docusate Sodium 100 Mg Capsule) 100 mg PO DAILY PRN PRN Reason: Constipation Folic Acid (Folic Acid 1 Mg Tablet) 1 mg PO DAILY [facility] Last Admin: 12/01/23 07:53 Dose: 1 mg Documented By: RASHARD Furosemide (Furosemide 40 Mg Tablet) 80 mg PO DAILY [facility]; Protocol Last Admin: 12/01/23 07:54 Dose: 80 mg Documented By: RASHARD Glucose (Glucose Gel 15 Gm Gel..Gram.) 15 gm PO Q15M PRN; Protocol PRN Reason: per Hypoglycemia Standing Ord. Hydromorphone HCl (Hydromorphone Hcl 1 Mg/Ml Syringe) 2 mg IVPUSH Q3H PRN; Protocol PRN Reason: moderate pain Last Admin: 12/02/23 06:33 Dose: 2 mg Documented By: TEMITOPE Hydroxyzine HCl (Hydroxyzine Hcl 50 Mg Tablet) 50 mg PO DAILY PRN PRN Reason: itching Dextrose (D10) 250 mls @ 750 mls/hr IV Q15M PRN; Protocol PRN Reason: per Hypoglycemia Standing Ord. Insulin Human Lispro (Insulin Lispro 100 Unit/Ml 3 Ml Vial) 0 unit SUBCUT QIDACHS [facility]; Protocol Last Admin: 12/02/23 07:49 Dose: Not Given Documented By: RASHARD Non-Admin Reason: No Insulin Coverage Lactulose (Lactulose 20 Gm/30 Ml Solution) 20 gm PO TID PRN PRN Reason: hepatic encephalopathy Levofloxacin (Levofloxacin 500 Mg Tablet) 500 mg PO Q24H [facility] Last Admin: 12/02/23 06:33 Dose: 500 mg Documented By: TEMITOPE Lorazepam (Lorazepam 0.5 Mg Tablet) 0.5 mg PO DAILY PRN PRN Reason: anxiety attack Melatonin (Melatonin 3 Mg Tablet) 6 mg PO BEDTIME PRN PRN Reason: Insomnia Omeprazole (Omeprazole 40 Mg Capsule.) 40 mg PO DAILY@0630 [facility] Last Admin: 12/02/23 05:22 Dose: 40 mg Documented By: TEMITOPE Ondansetron HCl (Ondansetron Hcl 4 Mg/2 Ml Vial) 4 mg IVPUSH Q8H PRN PRN Reason: Nausea and Vomiting Oxycodone HCl (Oxycodone Hcl Immed Release 5 Mg Tablet) 5 mg PO Q4H PRN PRN Reason: Pain, Moderate(Pain Scale 4-6) Oxycodone HCl (Oxycodone Hcl Er 10 Mg Tab.Er.12h) 10 mg PO BID [facility] Last Admin: 12/01/23 20:23 Dose: 10 mg Documented By: TEMITOPE Paroxetine HCl (Paroxetine Hcl 20 Mg Tablet) 20 mg PO DAILY [facility] Last Admin: 12/01/23 07:53 Dose: 20 mg Documented By: RASHARD Rifaximin (Rifaximin 550 Mg Tablet) 550 mg PO BID [facility] Last Admin: 12/01/23 20:23 Dose: 550 mg Documented By: TEMITOPE Sodium Chloride (0.9 % Sodium Chloride Flush 3 Ml Syringe) 3 ml IVFLUSH QSHIFT [facility] Last Admin: 12/01/23 20:24 Dose: 3 ml Documented By: TEMITOPE Spironolactone (Spironolactone 25 Mg Tablet) 200 mg PO DAILY [facility]; Protocol Last Admin: 12/01/23 07:54 Dose: 200 mg Documented By: RASHARD Thiamine HCl (Thiamine Hcl 100 Mg Tablet) 100 mg PO DAILY [facility] Last Admin: 12/01/23 07:54 Dose: 100 mg Documented By: RASHARD Labs 12/02/23 06:17 12/02/23 06:17 Labs: Laboratory Results - last 24 hr 12/01/23 12/01/23 12/01/23 11:30 16:53 20:03 MCV MCH MCHC RDW Plt Count MPV Absolute Nucleated RBC Nucleated RBC % (auto) Anion Gap Estim Creat Clear Calc Estimated GFR POC Glucose 122 H 133 H 144 H Fasting Glucose Calcium 12/02/23 12/02/23 06:17 07:40 MCV 86.5 MCH 27.5 MCHC 31.8 RDW 19.2 H Plt Count 207 MPV 8.8 L Absolute Nucleated RBC 0.000 Nucleated RBC % (auto) 0.0 Anion Gap 11 L Estim Creat Clear Calc 149.3 Estimated GFR > 60 POC Glucose 126 H Fasting Glucose 135 H Calcium 8.7 Microbiology Microbiology Results: Microbiology 11/30/23 15:00 Gram Stain - Final Knee,Right Anaerobic Culture - Preliminary No growth to date. Joint Fluid Culture - Preliminary No growth to date. 11/29/23 12:38 Blood Culture - Preliminary Blood - Venous No growth after 48 hours. 11/29/23 12:38 Blood Culture - Preliminary Blood - Venous No growth after 48 hours. Assessment and Plan (1) Septic arthritis of knee, right: Status: Acute Plan 58M PMH alcoholic cirrhosis, history of PE on Eliquis, mood disorder, gastroesophageal reflux disease who presented to the emergency department for evaluation of right knee pain. Right knee septic arthritis: Joint aspiration done in the ER last admission. Synovial WBC 18957 with 92% neutrophils. grew serratia continue levaquin po (6 weeks, end january 11, 2024) s/p washout 11/30/23, drain in place with significant blood drainage still with significant pain requiring high dose iv opiates History of PE Eliquis Insulin-dependent diabetes mellitus insulin sliding scale Alcoholic cirrhosis Continue diuretics and lactulose/rifaximin. On thiamine and folate portal hypertensive gastropathy On PPI and sucralfate DVT prophylaxis: Eliquis Full code reason for continued hospitalization: severe pain right knee Quality Stroke Does the patient have a stroke diagnosis?: No VTE Prior VTE?: No VTE Risk Level:: Medical - moderate - high VTE Device Contraindication: N/A - Device Ordered VTE Drug Contraindication: Treatment Not Indicated
[2023-12-02 08:50] VITALS: BP 132/88; PULSE 96
[2023-12-02] MEDS: buPROPion HCl XL 300 MG TAB.ER.24H PO (08:50)
[2023-12-02] MEDS: PARoxetine HCL 20 MG TABLET PO (08:50)
[2023-12-02] MEDS: carvediloL 6.25 MG TABLET PO (08:50)
[2023-12-02] MEDS: Spironolactone 25 MG TABLET 200 MG PO (08:50)
[2023-12-02] MEDS: 0.9 % Sodium Chloride Flush 3 ML SYRINGE IVFLUSH (08:51)
--- NOTE | 2023-12-02 10:38 | PM.PNORT ---
Subjective Subjective Date of Service: 12/02/23 Interval history: POD2 s/p right knee arhtroscopic lavage Patient is resting in bed - pain is better controlled today No overnight events No additional complaints Physical Exam Vital Signs: Vital Signs: Last Vital Signs Temp 97.0 F 12/02/23 07:42 Pulse 96 12/02/23 08:50 Resp 14 12/02/23 07:42 BP 132/88 12/02/23 08:50 Pulse Ox 95 12/02/23 07:42 O2 Del Method Room Air 12/02/23 07:42 BMI result Body Mass Index 29.5 Const: General: cooperative, healthy appearing and no acute distress Resp: Effort & Inspection: normal respiratory effort and able to speak in complete sentences Cardio: Rate: regular rate Peripheral pulses: Peripheral pulses 2+ throughout GI: Palpation (GI): Soft to palpation Skin: Lesions: no lesions Rashes: no rashes Extrem: Other: Rt knee pain with ROM but has significantly improved since yesterdays exam. Drain intact with bloody drainage. Sensation intact. Able to dorsi/plantar flex. NVI. Procedures Date of Service Date of Service: 12/02/23 Progress Note: A&P Assessment and plan (1) Septic arthritis of knee, right: Status: Acute Assessment and Plan: Continue pain mgmnt Begin PT for ROM and gait training Continue abx Drain pulled at bedside Dispo planning-Pain mgmnt, abx treatment for septic arthritis, stable for d/c once medically cleared (2) Swelling of right knee joint: Status: Acute Time Spent With Patient Time: Total time managing care of this patient today ____ minutes. Quality Stroke Does the patient have a stroke diagnosis?: No VTE Prior VTE?: No VTE Risk Level:: Medical - moderate - high VTE Device Contraindication: N/A - Device Ordered VTE Drug Contraindication: Treatment Not Indicated
[2023-12-02 11:09] LABS: Glucose, Whole Blood 143 mg/dL (60-115)
--- NOTE | 2023-12-02 12:11 | PM.DS ---
DS: Providers Provider Date of Service: 12/02/23 Date of admission: 11/29/23 14:42 Primary care physician: Martin Avilez MD Consults: 11/29/23 14:47 Consult to Infectious Diseases Routine Consulting Provider: [facility] Reason for consultation: Right knee septic arthritis Consult to Orthopedics Routine Consulting Provider: [facility] Reason for consultation: Right knee septic arthritis DS: Diagnosis Discharge Diagnosis (1) Septic arthritis of knee, right: Status: Acute (2) Swelling of right knee joint: Status: Acute DS: Summary Hospital Course Hospital Course: from initial hpi: 58-year-old male with a PMH significant for alcoholic cirrhosis, history of PE on Eliquis, mood disorder, and GERD who presents initially to the ED on 11/27/2023 for right knee pain, warmth, and swelling 3 days prior to presentation. ?Patient was admitted to the hospital for right knee septic arthritis with 74,000 PMNs and GNR in right knee arthrocentesis. Was empirically covered with vancomycin ceftriaxone as cultures at that time were still pending. However, patient left AMA as he had an outpatient MRI he did not want to miss or reschedule. Was sent home on 2 weeks of levofloxacin. Knee aspirate cultures have since grown Serratia marcescens susceptible to ceftriaxone. Pt represents today after MRI to complete his treatment. Continues to have right knee pain, warmth, and minor swelling, though has been able to ambulate and does not appear to be worsening. Denies fever, chills, nausea, vomiting, abdominal pain. No chest pressure or palpitations. Denies shortness of breath. In the ED pt with elevated HR of 99, vitals otherwise WNL. Labs were significant for chronic normocytic anemia of 10.4/32.4, lactic acid 3.7, bilirubin 3.5, AST 61, alk-phos 309, and albumin 2.9. UA negative for UTI. Pt was treated with IVF, ceftriaxone, and morphine. Pt will be admitted to the hospital for treatment and further evaluation of septic arthritis of right knee. hospital course: Patient was admitted for right knee septic arthritis. He underwent washout on 11/30/2023, he was treated with IV ceftriaxone and then seen by infectious disease who recommended 6 weeks of p.o. Levaquin to be completed 01/11/2024. Pain was eventually controlled and will be discharged home to follow with Orthopedics. For history of pulmonary embolism was continued on Eliquis. For diabetes was continue insulin sliding scale. For alcoholic cirrhosis was continued on diuretics, lactulose, rifaximin. For portal hypertensive gastropathy was continued on PPI and Carafate. Time Attestation Discharge Coordination Time (in mins): 35 Quality: Safe Use of Opioids Does Pt have an Active Cancer Diagnosis on the Problem List?: No Quality: Stroke Does the patient have a stroke diagnosis?: No Physical Exam Vital Signs: Vital Signs: Last Vital Signs Temp 97.0 F 12/02/23 07:42 Pulse 96 12/02/23 08:50 Resp 14 12/02/23 07:42 BP 132/88 12/02/23 08:50 Pulse Ox 95 12/02/23 07:42 O2 Del Method Room Air 12/02/23 07:42 BMI result Body Mass Index 29.5 Const: General: cooperative, healthy appearing and no acute distress Resp: Effort & Inspection: normal respiratory effort and able to speak in complete sentences Cardio: Rate: regular rate Peripheral pulses: Peripheral pulses 2+ throughout GI: Palpation (GI): Soft to palpation Skin: Lesions: no lesions Rashes: no rashes Extrem: Other: Rt knee pain with ROM but has significantly improved since yesterdays exam. Drain intact with bloody drainage. Sensation intact. Able to dorsi/plantar flex. NVI. DS: Data Data Completed and Pending Completed studies during hospitalization [Text1]: Procedures Control Bleeding in Gastrointestinal Tract, Via Natural or Artificial Opening Endoscopic (11/01/21) Detoxification Services for Substance Abuse Treatment (12/06/21) Drainage of Left Pleural Cavity, Percutaneous Approach (04/09/23) Drainage of Peritoneal Cavity, Percutaneous Approach (11/27/22) Drainage of Right Pleural Cavity, Percutaneous Approach (12/06/21) Introduction of Mineral-based Topical Hemostatic Agent into Upper GI, Via Natural or Artificial Opening Endoscopic, [employer] (11/27/22) Occlusion of Esophageal Vein with Extraluminal Device, Via Natural or Artificial Opening Endoscopic (11/27/22) Labs on day of discharge: Laboratory Results - last 24 hr 12/01/23 12/01/23 12/02/23 16:53 20:03 06:17 WBC 7.8 RBC 3.42 L Hgb 9.4 L Hct 29.6 L MCV 86.5 MCH 27.5 MCHC 31.8 RDW 19.2 H Plt Count 207 MPV 8.8 L Absolute Nucleated RBC 0.000 Nucleated RBC % (auto) 0.0 Sodium 130 L Potassium 3.4 Chloride 95 L Carbon Dioxide 27 Anion Gap 11 L BUN 12 Creatinine 0.77 Estim Creat Clear Calc 149.3 Estimated GFR > 60 POC Glucose 133 H 144 H Fasting Glucose 135 H Calcium 8.7 12/02/23 12/02/23 07:40 11:04 WBC RBC Hgb Hct MCV MCH MCHC RDW Plt Count MPV Absolute Nucleated RBC Nucleated RBC % (auto) Sodium Potassium Chloride Carbon Dioxide Anion Gap BUN Creatinine Estim Creat Clear Calc Estimated GFR POC Glucose 126 H 143 H Fasting Glucose Calcium Preliminary micro results at discharge 11/30/23 15:00 Anaerobic Culture - Preliminary Knee,Right No growth to date. Joint Fluid Culture - Preliminary No growth to date. 11/29/23 12:38 Blood Culture - Preliminary Blood - Venous No growth after 48 hours. 11/29/23 12:38 Blood Culture - Preliminary Blood - Venous No growth after 48 hours. Discharge Plan Discharge Anticipated Discharge Date/Time: 12/02/23 12:05 Patient Disposition: Home, Self-Care Discharge Diagnosis: spetic arthritis Referrals: Sudheer Mosher MD [Physician] - 1 Week Martin Avilez MD [Primary Care Provider] - 1 Week Discharge Medications: New hydromorphone 2 mg tablet 2 mg PO Q4H PRN (Reason: moderate pain (scale score 5-6)) Qty: 20 0RF Rx Instructions: Partial Fill upon patient request. Continued spironolactone 100 mg tablet 200 mg PO DAILY 90 Days Qty: 180 0RF Hold Instructions: Check with nephrology before restarting furosemide 40 mg tablet 80 mg PO DAILY 90 Days Qty: 180 0RF Hold Instructions: Check with nephrology before restarting Eliquis 5 mg tablet 5 mg PO BID Qty: 56 2RF Xifaxan 550 mg tablet 550 mg PO BID Qty: 56 0RF paroxetine HCl 20 mg tablet 20 mg PO DAILY oxycodone 5 mg capsule 5 - 10 mg PO DAILY PRN (Reason: Pain) acamprosate 333 mg tablet,delayed release (DR/EC) 333 mg PO Q8H PRN (Reason: ALCOHOL ABSTINENCE) carvedilol 6.25 mg tablet 6.25 mg PO BIDWM Rx Instructions: must administer with a meal/food omeprazole 40 mg capsule,delayed release(DR/EC) 40 mg PO DAILY@0630 lactulose 10 gram/15 mL solution 30 ml PO TID PRN (Reason: hepatic encephalopathy) levofloxacin 500 mg tablet 500 mg PO DAILY Qty: 28 0RF Rx Instructions: End date 12-12-23 ondansetron 4 mg tablet,disintegrating 4 mg PO Q8H PRN (Reason: nausea and vomiting) Qty: 14 0RF (DME) FreeStyle Lite Strips Strip See Rx Instructions .ROUTE .MEDSUPPLY Qty: 100 2RF Rx Instructions: QID (DME) lancets Misc See Rx Instructions .ROUTE .MEDSUPPLY Qty: 200 2RF Rx Instructions: 4 times daily (DME) blood-glucose meter [FreeStyle Lite Meter] Kit See Rx Instructions .ROUTE .MEDSUPPLY Qty: 1 0RF Rx Instructions: As directed ([facility]) pen needle, diabetic [Pen Needle] 31 gauge x 5/16 needle See Rx Instructions .ROUTE .MEDSUPPLY Qty: 1200 0RF Rx Instructions: As directed insulin glargine 100 unit/mL (3 mL) insulin pen 20 unit subcut DAILY PRN (Reason: elevated blood sugar) insulin lispro 100 unit/mL insulin pen 1 sliding scale dose subcut QIDACHS Protocol: Insulin Correction Scale Less than or equal to 110 ---- Give (units): 0 111 to 150 Give (units): 0 151 to 200 Give (units): 2 201 to 250 Give (units): 4 251 to 300 Give (units): 6 301 to 350 Give (units): 8 Greater than 350 Give (units): 10 Call MD if Blood Glucose > : 350 hydroxyzine pamoate 25 mg capsule 50 mg PO DAILY PRN (Reason: itching) Rx Instructions: ITCHING/ANXIETY albuterol sulfate [ProAir HFA] 90 mcg/actuation HFA aerosol inhaler 2 puff inhalation Q6H PRN (Reason: Shortness Of Breath) folic acid 1 mg tablet 1 mg PO DAILY bupropion HCl 300 mg tablet extended release 24 hr 300 mg PO DAILY thiamine HCl (vitamin B1) 100 mg tablet 100 mg PO DAILY lorazepam 0.5 mg tablet 0.5 mg PO DAILY PRN (Reason: anxiety attack) Discharge Orders: Discharge Order (Routine); Ordered 12/02/23 Ordered By: Robert Casas Diet: Advance to usual diet Activity on Discharge: As tolerated Stand Alone Forms: Patient Portal Discharge page Print Language: Upper Sorbian Care Plan Goals: recovery Health Concerns: septic arthritis Plan of Treatment: 6 weeks gema, follow up with orthopedics Assessment: see above
--- NOTE | 2023-12-02 12:36 | MHC.CM.PN ---
EMR reviewed. Patient medically cleared for dc home self care. Sister will provide transport at 1pm. RN aware.
[2023-12-02] MEDS: oxyCODONE HCl Immed Release 5 MG TABLET PO (13:06)
--- NOTE | 2023-12-07 17:13 | P.OP_ITS ---
Operative Note Operative Note Date of Service: 11/30/23 Narrative: Date of Service: 11/30/23 Pre-op diagnosis: RIght septic knee Post-op diagnosis: same Procedure: Arthroscopic lavage right knee Implants: none Surgeon: Sudheer Mosher MD Anesthesia: GETA Was an Transportation Engineering Technician used for this Procedure?: No Estimated blood loss (mL): 25 IV fluids (mL): 500 Pathology: other Condition: stable Disposition: PACU Procedure in detail: Patient was brought to the operating room placed supine on the arthroscopic table and prepped and draped in standard sterile fashion. A time-out was called to identify proper site proper procedure proper surgeon and IV antibiotics per weight were administered. I began by insufflating the tourniquet to 300 mm Hg. Then made a standard anterolateral stab incision. The knee was insufflated with water and 30 degree arthroscope was placed. There was copious purulent fluid. I made a medial portal under direct visualization. I then used a shave to debride fibrinous material in the anterior interval and the suprapatellar pouch. I then made an lateral parapatellar portal and lavaged for 5 minutes. I then removed all instrumentation and closed the portals with nylon. A #7 neal drain was left in and sutured in. Patient was then placed in sterile dressing extubated brought recovery room stable condition. There were no known complications.
== END 2023-12-02 13:13 | disposition home or self-care (01) | DRG 549 ==
LOC: HO.ED 13:20 → HO.EDOVER 14:51 → HO.S3 11-30 04:57
PROVIDERS: Orthopaedic Surgery; Physician Assistant Medical; Admitting Provider Student in an Organized Health Care Education/Training Program; Emergency Provider Student in an Organized Health Care Education/Training Program; PCP Internal Medicine; Visit Provider Internal Medicine
PROC: 3E1U48Z Irrigation of Joints using Irrigating Substance, Percutaneous Endoscopic Approach (ICD-10-PCS; CPT 29870; principal; 2023-11-30 14:20)
DX: M00.861 Arthritis due to other bacteria, right knee (principal); K76.6 Portal hypertension; K70.30 Alcoholic cirrhosis of liver without ascites; K21.9 Gastro-esophageal reflux disease without esophagitis; D64.9 Anemia, unspecified; F10.20 Alcohol dependence, uncomplicated; K31.89 Other diseases of stomach and duodenum; B96.89 Other specified bacterial agents as the cause of diseases classified elsewhere; Z86.711 Personal history of pulmonary embolism; Z79.4 Long term (current) use of insulin; Z79.01 Long term (current) use of anticoagulants; Z79.899 Other long term (current) drug therapy
CPT/HCPCS: 36415; 80048; 80053; 81003; 82947; 83605; 83690; 83735; 85025; 85027; 87040; 87070; 87073; 87205; 99285; J0696; J1170; J1885; J2270; J2704; J2795; J3010

== ENCOUNTER → 2023-11-29 14:42 | Outpatient (BNV) | payer OTHER, SELFPAY | PROVIDERS: Admitting Provider Student in an Organized Health Care Education/Training Program; Emergency Provider Student in an Organized Health Care Education/Training Program; PCP Internal Medicine; Visit Provider Internal Medicine | DX: M00.9 Pyogenic arthritis, unspecified (principal) | CPT/HCPCS: 99499 ==

== ENCOUNTER → 2023-11-29 14:42 | Outpatient (BNV) | payer OTHER, SELFPAY | PROVIDERS: Admitting Provider Student in an Organized Health Care Education/Training Program; Emergency Provider Student in an Organized Health Care Education/Training Program; PCP Internal Medicine; Visit Provider Physician Assistant | DX: M00.9 Pyogenic arthritis, unspecified (principal); M25.461 Effusion, right knee | CPT/HCPCS: 29871; 99024; 99221 ==

== ENCOUNTER → 2023-11-29 14:42 | Outpatient (BNV) | payer OTHER, SELFPAY | PROVIDERS: Admitting Provider Student in an Organized Health Care Education/Training Program; Emergency Provider Student in an Organized Health Care Education/Training Program; PCP Internal Medicine; Visit Provider Student in an Organized Health Care Education/Training Program | DX: M00.9 Pyogenic arthritis, unspecified (principal); M25.461 Effusion, right knee | CPT/HCPCS: 99223; 99232; 99239 ==

== ENCOUNTER 2023-12-05 13:20 | Inpatient (IN) | payer OTHER, SELFPAY ==
--- NOTE | ~2023-12-05 | US_ITS ---
EXAMINATION: US VENOUS ULTRASOUND WITH DOPPLER LOWER EXTREMITY, RIGHT CLINICAL INFORMATION: Arthroscopically of the right knee, erythema COMPARISON: None available. TECHNIQUE: Ultrasound of the deep veins is performed from the hip to the calf with compression sonography and color and pulse Doppler assessment. Spectral analysis with color-flow imaging is performed. FINDINGS: There is normal venous compression and respiratory variation and augmented flow. The visualized common femoral vein, superficial femoral vein, profunda femoral vein, popliteal vein, and the trifurcation region shows no evidence of deep venous thrombosis. There is no significant popliteal fossa cyst. If the patient's symptoms persist, followup ultrasound in 5 days 7 days might be of value to exclude proximal propagation from a non-visualized calf vein. US/US venous duplex LE RT IMPRESSION: No DVT demonstrated in the right lower extremity.
[2023-12-05 14:04] VITALS: BP 106/67; PULSE 98; RESP 16; TEMP 36.3; O2SAT 97; BMI 29.0
--- NOTE | 2023-12-05 14:05 | ED_ITS ---
HPI - General Adult General Chief complaint: General Medical Stated complaint: Post op infection (?) R knee Time Seen by Provider: 12/05/23 16:55 History of Present Illness ED Provider: sudha NEWMAN narrative: Patient 58 years old with history of alcoholic cirrhosis right knee septic arthritis diagnose on 11/28 discharged on 12/01 on Levaquin knee fluid grew Serratia marcescens unlikely septic arthritis per Orthopedics but agreed for p.o. antibiotics of Levaquin which he is taking patient comes here as knee has more swollen since discharge spreading to the thigh patient had arthroscopic lavage of the right knee during stay. No fever no chills Related Data Home Medications ?Medication ?Instructions ?Recorded ?Confirmed bupropion HCl 300 mg 24 hr tablet, 300 mg PO DAILY 06/10/21 12/05/23 extended release folic acid 1 mg tablet 1 mg PO DAILY 06/10/21 12/05/23 thiamine HCl (vitamin B1) 100 mg 100 mg PO DAILY 06/10/21 12/05/23 tablet albuterol sulfate 90 mcg/actuation 2 puff inhalation Q6H PRN 01/26/22 12/05/23 aerosol inhaler (ProAir HFA) Shortness Of Breath hydroxyzine pamoate 25 mg capsule 50 mg PO DAILY PRN itching 01/26/22 12/05/23 lorazepam 0.5 mg tablet 0.5 mg PO DAILY PRN anxiety attack 07/13/22 12/05/23 paroxetine HCl 20 mg tablet 20 mg PO DAILY 07/13/22 12/05/23 insulin glargine 100 unit/mL (3 20 unit subcut DAILY PRN elevated 11/27/22 12/05/23 mL) subcutaneous pen blood sugar insulin lispro 100 unit/mL 1 sliding scale dose subcut QIDACHS 03/03/23 12/05/23 subcutaneous pen oxycodone 5 mg capsule 5 - 10 mg PO DAILY PRN Pain 04/09/23 12/05/23 acamprosate 333 mg tablet,delayed 333 mg PO Q8H PRN ALCOHOL 11/27/23 12/05/23 release ABSTINENCE carvedilol 6.25 mg tablet 6.25 mg PO BIDWM 11/27/23 12/05/23 lactulose 10 gram/15 mL oral 30 ml PO TID PRN hepatic 06/04/24 06/12/24 solution encephalopathy omeprazole 40 mg capsule,delayed 40 mg PO DAILY@0630 11/27/23 12/05/23 release Previous Rx's ?Medication ?Instructions ?Recorded blood sugar diagnostic (FreeStyle #100 ea 10/30/22 Lite Strips) blood-glucose meter (FreeStyle #1 ea 10/30/22 Lite Meter kit) lancets #200 ea 10/30/22 ondansetron 4 mg disintegrating 4 mg PO Q8H PRN nausea and 10/30/22 tablet vomiting #14 tabs pen needle, diabetic 31 gauge x #1,200 ea 10/31/22 5/16 (Pen Needle) spironolactone 100 mg tablet 200 mg (2 x 100 mg) PO DAILY 90 03/14/23 days #180 tabs furosemide 40 mg tablet 80 mg (2 x 40 mg) PO DAILY 90 days 05/07/23 #180 tabs apixaban 5 mg tablet (Eliquis) 5 mg PO BID #56 tabs 09/20/23 rifaximin 550 mg tablet (Xifaxan) 550 mg PO BID #56 tabs 11/14/23 hydromorphone 2 mg tablet 2 mg PO Q4H PRN moderate pain 12/02/23 (Dilaudid) (scale score 5-6) #20 tabs levofloxacin 500 mg tablet 500 mg PO DAILY #28 tabs 12/02/23 walker #1 ea 12/04/23 Allergies Allergy/AdvReac Type Severity Reaction Status Date / Time No Known Drug Allergies Allergy Mild NONE Verified 12/05/23 14:05 [NO KNOWN DRUG ALLERGIES] Review of Systems 2 Review of Systems: Yes all other systems are reviewed and are negative FOR[facility]LY [facility] Past Medical History Medical History Pulmonary nodule 1 cm or greater in diameter Pleuritic chest pain Pulmonary embolism, bilateral Cirrhosis of liver Diabetes Alcohol use disorder, moderate, dependence Recurrent left pleural effusion Pleural effusion Pericardial effusion Tachycardia Dyspnea Hydropneumothorax Pleural effusion on right Decompensation of cirrhosis of liver Cirrhosis GERD (gastroesophageal reflux disease) Esophageal varices Chronic abdominal pain Gout Peripheral neuropathy Alcoholism Elevated LFTs Surgical History History of abdominal paracentesis Hx of esophagogastroduodenoscopy History of thoracentesis H/O colonoscopy H/O cervical spine surgery H/O hemicolectomy Family History Family History Mother Cancer Sister Cancer Social History Social History Household Members: Other Household Members Other:: 1 Housing: Apartment Are you a primary respiratory care instructor to a significant other at home: No Do you presently have visiting nurse or other home services: No Alcohol intake: current Alcohol intake frequency: 3 or more drinks per day Alcohol type: hard liquor Patient Tobacco Use Status: Former Tobacco user Tobacco use type: Cigarette Years Smoked: 35 Smoked in Last 30 Days: No e-Cigarette/Vaping Use: Currently Using Second Hand Smoke Exposure: No Use of substances other than those prescribed or required for medical reasons: Yes Substance Use Type: Marijuana Substance Use Frequency: Monthly Advance Directives: Yes Advance Directives on File: Yes Advance Directives Date on File: 11/27/22 Nutrition Risks: No Nutritional Risk service: No Current occupational status: unemployed Physical Exam ED Vital Signs: Vital Signs - 24 hr 12/05/23 14:04 12/05/23 15:44 12/05/23 18:03 Temperature 97.4 F 97.4 F Pulse Rate 98 99 Respiratory Rate 16 20 18 Blood Pressure 106/67 132/74 Pulse Oximetry 97 100 Oxygen Delivery Method Room Air Room Air 12/05/23 18:29 12/05/23 18:41 12/05/23 20:52 Temperature 98.3 F 98.5 F Pulse Rate 91 100 Respiratory Rate 16 16 20 Blood Pressure 105/65 143/79 H Pulse Oximetry 97 98 Oxygen Delivery Method Room Air Room Air BMI result Body Mass Index 29.0 Appearance: Alert. Oriented X3. No acute distress. Afebrile Eyes: Icterus+ ENT: Pharynx normal. Oral Mucosa moist Neck: Normal inspection. Neck supple. CVS: Normal heart rate and rhythm. Pulses normal. Respiratory: No respiratory distress. Equal air entry bilateral, Abdomen: Soft and nontender. Bowel sounds are present, no mass palpable, no CVA tenderness Skin: Skin warm and dry. Normal skin color. Normal skin turgor. Extremities:2+ lower extremity edema. No calf tenderness significant swelling with knee effusion right knee with redness spreading to the thigh limited range of movement because of significant effusion and pain Neuro: Oriented X 3. Course Course Course Narrative: This is a rapid medical exam performed by Brenden Mujica NP: Additional HPI, ROS, PE not included below will be deferred to primary provider. Patient is a 58-year-old male recently inpatient for septic arthritis of R knee. Had arthroscopy and washout on 11/29, discharged on 12/01. Patient states he has had erythema proximal to knee since discharge but the erythema and swelling is progressing proximally. Currently on antibiotics. Denies fever. Plan: labs, U/S Medications Administered Generic Name Dose Route Start Last Admin Trade Name Freq PRN Reason Stop Dose Admin Morphine Sulfate 4 mg 12/05/23 23:08 12/05/23 23:51 Morphine Sulfate 4 Mg/Ml Cartridge IVPUSH 4 mg Q4H PRN Administration Pain, Severe (Pain Scale 7-10) Protocol Sodium Chloride 3 ml 12/06/23 00:00 12/06/23 01:03 0.9 % Sodium Chloride Flush 3 Ml Syringe IVFLUSH 3 ml QSHIFT RYAN Administration Discontinued Medications Generic Name Dose Route Start Last Admin Trade Name Freq PRN Reason Stop Dose Admin Vancomycin HCl 2,000 mg in 500 mls @ 250 mls/hr 12/05/23 17:16 12/05/23 20:38 Vancomycin/Ns IV 12/05/23 19:15 Infused ONCE ONE Infusion Sodium Chloride 1,000 mls @ 999 mls/hr 12/05/23 18:09 12/05/23 20:38 Ns IV 12/05/23 19:09 Infused .Q1H1M ONE Infusion Levofloxacin 750 mg in 150 mls @ 100 mls/hr 12/05/23 18:09 12/05/23 22:25 Levaquin IV 12/05/23 19:38 Infused ONCE ONE Infusion Morphine Sulfate 4 mg 12/05/23 17:53 12/05/23 18:03 Morphine Sulfate 4 Mg/Ml Cartridge IVPUSH 12/05/23 17:54 4 mg ONCE ONE Administration Protocol Ondansetron HCl 4 mg 12/05/23 17:53 12/05/23 18:03 Ondansetron Hcl 4 Mg/2 Ml Vial IVPUSH 12/05/23 17:54 4 mg ONCE ONE Administration Medical Decision Making Medical Decision Making MDM Narrative: Patient with septic arthritis of the right knee status post arthroscopy washout culture showed atypical bacteria Serratia sensitive to Levaquin which she had been getting comes here for increased swelling and redness spreading from knee to the thigh lab workup showed normal leukocyte count slightly elevated lactic acid 2.3. Case discussed with orthopedic advised to keep the patient NPO after midnight for possible arthroscopic washout again. Will give meanwhile vancomycin and Levaquin Differential Diagnosis Differential Diagnoses: The differential diagnosis associated with the presentation includes Admission/Observation Consideration of admission/observation: Escalation of care including admission/observation considered Consult Healthcare Provider Management of the patient was discussed with: Hospitalist Lab Data [facility] Lab Attestation statement: I reviewed the patient's lab results. 12/05/23 14:23 12/05/23 14:23 Labs: Lab Results 12/05/23 12/05/23 12/05/23 Range/Units 14:23 17:47 20:06 WBC 8.2 (4.8-10.8) X10*3/uL RBC 3.36 L (4.60-5.80) X10*6/uL Hgb 9.3 L (14.0-18.0) g/dl Hct 28.2 L (42.0-52.0) % MCV 83.9 (80.0-98.0) fL MCH 27.7 (27.0-33.0) pg MCHC 33.0 (31.0-36.0) g/dl RDW 18.6 H (11.0-16.0) % Plt Count 302 D (160-400) X10*3/uL MPV 8.4 L (9.4-12.4) fL Immature Gran % (Auto) 1.2 H (0.0-0.4) % Neut % (Auto) 69.3 (45-73) % Lymph % (Auto) 12.0 L (20-40) % Hudspeth % (Auto) 15.5 H (2-11) % Eos % (Auto) 1.0 (0-4) % Baso % (Auto) 1.0 (0-2) % Lymph # (Auto) 1.0 L (1.2-4.9) X10*3/uL Hudspeth # (Auto) 1.3 H (0.1-1.2) X10*3/uL Eos # (Auto) 0.1 (0.0-0.4) X10*3/uL Baso # (Auto) 0.1 (0.0-0.2) X10*3/uL Abs Immat Gran (auto) 0.10 H (0.00-0.03) X10*3/uL Absolute Neuts (auto) 5.7 (2.0-8.3) x10*3/uL Absolute Nucleated RBC 0.000 (0.0-0.012) X10*3/uL Nucleated RBC % (auto) 0.0 (0.0-0.2) /100WBC PT 20.5 H (11.1-13.3) SEC INR 1.7 H (0.9-1.1) Sodium 131 L (135-145) mmol/L Potassium 3.1 L (3.3-5.1) mmol/L Chloride 93 L (96-108) mmol/L Carbon Dioxide 28 (22-29) mmol/L Anion Gap 13 (12-20) BUN 6 L (9-16) mg/dL Creatinine 0.82 (0.5-1.4) mg/dL Estim Creat Clear Calc 139.3 Estimated GFR > 60 Random Glucose 149 H (60-115) mg/dL Lactic Acid 2.3 H* (0.5-2.0) mmol/L Lactic Acid F/U @ 2Hr 2.3 H* (0.5-2.0) mmol/L Lactic Acid F/U @ 4Hr 1.9 (0.5-2.0) mmol/L Calcium 8.4 (8.4-10.2) mg/dL Total Bilirubin 4.0 H (0.0-1.0) mg/dL AST 61 H (5-37) U/L ALT 26 (0-40) U/L Alkaline Phosphatase 333 H (39-117) U/L Total Protein 7.9 (6.5-8.0) g/dL Albumin 2.9 L (3.5-5.0) g/dL Independent Interpretation I performed an independent interpretation of an: Plain X-Ray Radiology Impression Discussion of test interpretation with radiology: I have reviewed the radiologist's reading. Discharge Plan Discharge Clinical Impression: Septic arthritis of knee, right Patient Disposition: Admitted As Inpatient
[2023-12-05 14:29] LABS: MANUAL DIFF FLAG NO
--- OUTSIDE RECORDS SUMMARY | 2023-12-05 14:29 | XMS_ITS | Continuity of Care Document ---
Author Organization [facility] ter Address [address] [place] [id number]- Care Team Providers Care Therapeutic Riding Instructor Name Role Phone Martin Avilez MD Primary Care Physician Encounter [facility] [place] Date(s): 03/21/23 - 05/31/[address] [address]- Attending Physician: Jeff Buchanan MD Admitting Physician: Jeff Buchanan MD Referring Physician: Jeff Buchanan MD Allergies, Adverse Reactions, Alerts No Known Allergies Immunizations Given and Recorded Vaccine Date Status Refusal Reason SARS-CoV-2 (COVID-19) Ad26 vaccine 12/07/20 Given Medications buPROPion 300 mg/24 hours (XL) oral tablet, extended release 1 tablet = 300 mg, By Mouth, Every 24 hours, 0 Refills, Maintenance, 09/24/18 12:21:17 EDT Start Date: 09/24/18 Status: Ordered Folic Acid Daily, 0 Refills, Maintenance, 10/27/20 12:36:00 EDT, Partial fill upon patient request if the prescription is for a schedule II opioid drug. Start Date: 10/27/20 Status: Ordered furosemide 20 mg oral tablet 1, capsule, By Mouth, Once, # 1 tablet, Refills 0, Maintenance, 10/26/21 13:14:00 EDT, Partial fillupon patient request if the prescription is for a schedule II opioid drug. Start Date: 10/26/21 Status: Ordered hydrOXYzine pamoate 25 mg oral capsule 0 Refills, Maintenance, 03/19/23 8:01:00 EDT, Partial fill upon patient request if the prescriptionis for a schedule II opioid drug. Start Date: 03/19/23 Status: Ordered hyoscyamine 0.125 mg oral tablet 0.125 mg, 1, tablet, By Mouth, 4 times a day, PRN, # 60 tablet, Refills 4, Tot. Refills 4, Maintenance, for spasm, 10/27/20 13:16:00 EDT, Route to Pharmacy Electronically, [facility], Partial fill upon patient request if the prescription... Start Date: 10/27/20 Status: Ordered Insulin Lispro KwikPen 100 units/mL injectable solution 0 Refills, Maintenance, 03/19/23 8:01:00 EDT, Partial fill upon patient request if the prescriptionis for a schedule II opioid drug. Start Date: 03/19/23 Status: Ordered lactulose 10 gm/15 ml oral syrup 0 Refills, Maintenance, 03/19/23 8:01:00 EDT, Partial fill upon patient request if the prescriptionis for a schedule II opioid drug. Start Date: 03/19/23 Status: Ordered Lantus Solostar Pen 100 units/mL subcutaneous solution 0 Refills, Maintenance, 03/19/23 8:01:00 EDT, Partial fill upon patient request if the prescriptionis for a schedule II opioid drug. Start Date: 03/19/23 Status: Ordered LORazepam 0.5 mg oral tablet 0 Refills, Maintenance, 03/19/23 8:01:00 EDT, Partial fill upon patient request if the prescriptionis for a schedule II opioid drug. Start Date: 03/19/23 Status: Ordered nadolol 20 mg oral tablet Refills 0, Maintenance, 03/19/23 8:01:00 EDT, Partial fill upon patient request if the prescriptionis for a schedule II opioid drug. Start Date: 03/19/23 Status: Ordered omeprazole 40 mg oral enteric coated capsule 1 capsule, By Mouth, Daily, # 30 capsule, 11 Refills, [facility], 195, cm, 10/26/21 13:11:00 EDT, Height Start Date: 01/30/22 Status: Ordered ondansetron 4 mg oral tablet, disintegrating 0 Refills, Maintenance, 03/19/23 8:01:00 EDT, Partial fill upon patient request if the prescriptionis for a schedule II opioid drug. Start Date: 03/19/23 Status: Ordered oxyCODONE 5 mg oral tablet Refills 0, Tot. Refills 0, Maintenance, 03/19/23 8:01:00 EDT, Partial fill upon patient request if the prescription is for a schedule II opioid drug. Start Date: 03/19/23 Status: Ordered PARoxetine 20 mg oral tablet 20 mg, 1, tablet, By Mouth, Daily, # 30 tablet, Refills 0, Maintenance, 10/26/21 13:17:00 EDT, Partial fill upon patient request if the prescription is for a schedule II opioid drug. Start Date: 10/26/21 Status: Ordered Spironolactone By Mouth, 0 Refills, Maintenance, 10/26/21 13:13:00 EDT, Partial fill upon patient request if the prescription is for a schedule II opioid drug. Start Date: 10/26/21 Status: Ordered sucralfate 1 gm oral tablet 1 Gm, 1, tablet, By Mouth, Daily, Refills 0, Maintenance, 10/26/21 13:15:00 EDT, Partial fill upon patient request if the prescription is for a schedule II opioid drug. Start Date: 10/26/21 Status: Ordered thiamine 100 mg oral tablet 100 mg, 1, tablet, By Mouth, Daily, Refills 0, Maintenance, 03/15/20 13:45:00 EDT Start Date: 03/15/20 Status: Ordered topiramate 25 mg oral tablet See Instructions, TAKE 1 TABLET BY MOUTH AT BEDTIME FOR 1 WEEK THEN TAKE 2 TABLETS AT BEDTIME, # 60Unknown, 5 Refills, Maintenance, [facility], 195, cm, 10/27/20 12:32:00 EDT, Height Start Date: 11/19/20 Status: Ordered Xifaxan 550 mg oral tablet 0 Refills, Maintenance, 03/19/23 8:01:00 EDT, Partial fill upon patient request if the prescriptionis for a schedule II opioid drug. Start Date: 03/19/23 Status: Ordered Problem List Condition Confirmation Course Effective Dates Status Health St atus Informant Epigastric abdominal pain Confirmed Active Hypertension Confirmed Active Colon polyp Confirmed Active Dry heaves Confirmed Active Social History Social History Type Response Smoking Status Former smoker, quit more than 30 days ago entered on: 03/19/23 Sex Patient Care team information Care Team Personnel Name: Martin Avilez MD Position: S Physician - Primary Care Member Role: PCP Address: Address: [address], [address] [facility] [place] [address]- Care Team Related Persons Name: ROSALBA NAIR Address: home [address] [place] [address] Name: SINDHU WASHINGTON Address: home [address] [place] [address]
--- OUTSIDE RECORDS SUMMARY | 2023-12-05 14:29 | XMS_ITS | Continuity of Care Document ---
Author Organization [facility] Address [address] [place] [address]- Care Team Providers Care Seo Consultant Name Role Phone Martin Avilez MD Primary Care Physician Encounter [facility] [place] Date(s): 03/20/23 - 04/19/23 [facility] [address] [place] [id number] Allergies, Adverse Reactions, Alerts No Known Allergies [...] Primary Care Member Role: PCP Address: Address: [address] [place] [address], [address] [place] [address]- Care Team Related Persons Name: ROSALBA NAIR Address: home [address] [place] [address] Name: SINDHU WASHINGTON Address: [address] [place] [address]
--- OUTSIDE RECORDS SUMMARY | 2023-12-05 14:29 | XMS_ITS | Continuity of Care Document ---
Author Organization [facility] ter Address [address] [place] [address]- Care Team Providers Care Extrusion Process Operator Name Role Phone Martin Avilez MD Primary Care Physician Encounter [facility] [place] Date(s): 03/21/23 - 05/31/[address] [address]- Attending Physician: Jeff Buchanan MD Admitting Physician: [...] Care Member Role: PCP Address: Address: [address], [address] [facility] [place] [address]- Care Team Related Persons Name: ROSALBA NAIR Address: home [address] [place] [address] Name: SINDHU WASHINGTON Address: home [address] [address]
--- OUTSIDE RECORDS SUMMARY | 2023-12-05 14:29 | XMS_ITS | Continuity of Care Document ---
Author Organization [facility] Address [address] [place] [address]- Care Team Providers Care Family Living Educator Name Role Phone Martin Avilez MD Primary Care Physician Encounter [facility] [place] Date(s): 02/27/23 - 04/21/23 [facility] [address] [place] [id number] Attending Physician: Not on Staff, Attending MD Referring Physician: Marcia Hawk MD Allergies, Adverse Reactions, Alerts No Known [...] EDT, Route to Pharmacy Electronically, [facility], Partial fill upon patient request [...] Primary Care Member Role: PCP Address: Address: [address] [place] [address], [address] [facility] [place] [address]- [place] Care Team Related Persons Name: ROSALBA NAIR Address: home [address] [place] [address] Name: SINDHU WASHINGTON Address: home [address] [address]
--- OUTSIDE RECORDS SUMMARY | 2023-12-05 14:29 | XMS_ITS | Continuity of Care Document ---
Author Organization [facility] Address [address] [place] [address]- Care Team Providers Care Substation Inspector Name Role Phone Martin Avilez MD Primary Care Physician [phone] Encounter [facility] [place] Date(s): 04/16/23 - 05/16/23 [facility] [address] [place], [place] [address] Attending Physician: Erin Rosado Admitting Physician: AdmErin huang Referring Physician: AdmtrErin Allergies, Adverse Reactions, Alerts No Known Allergies [...] Primary Care Member Role: PCP Address: Address: [address] [place] [address], [address] [facility] [place] [address]- Care Team Related Persons Name: ROSALBA NAIR Address: home [address] [place] [address] Name: SINDHU WASHINGTON Address: home [address], [place] [address]
--- OUTSIDE RECORDS SUMMARY | 2023-12-05 14:29 | XMS_ITS | Continuity of Care Document ---
Author Organization [facility] Address [address] [place] [id number]- Care Team Providers Care Wildlife Biology Technician Name Role Phone Raghav BURDEN, Martin Quintanilla Primary Care Physician Encounter [facility] [place] Date(s): 03/19/23 - 03/26/23 [facility] [address] [place], [place] [address] Attending Physician: Jeff Buchanan MD Admitting Physician: Jeff Buchanan MD Referring Physician: Marcia Hawk MD Allergies, [...] polyp Confirmed Active Dry heaves Confirmed Active Vital Signs Most recent to oldest [Reference Range]: 1 Height 195 cm (03/19/23 7:54 AM) Weight 111.36 kg (03/19/23 7:54 AM) Oxygen Saturation [94-100 %] 96 % (03/19/23 7:54 AM) Pulse Rate [55-90 bpm] 88 bpm (03/19/23 7:54 AM) Body Mass Index [18.5-24.99 kg/m2] 29.29 kg/m2 *H* (03/19/23 7:54 AM) Blood Pressure [90-138/55-84 mm Hg] 100/ 52mm Hg (03/19/23 7:54 AM) Mode of Delivery (Oxygen) Room air (03/19/23 7:54 AM) Blood pressure sites Arm, left (03/19/23 7:54 AM) Weight Obtained Via Patient/family state d (03/19/23 7:54 AM) Social History Social History Type Response Smoking Status Former smoker, quit more than 30 days ago entered on: 03/19/23 Sex Radiology * Dewayne BURDEN, Jeff: MODIFY, MODIFY, MODIFY, MODIFY, MODIFY, MODIFY, PERFORM Event Display: IR Office Initial Note Authored Date: [id number] Patient: ??DIAZ HER ? Age:??57 Years?Sex:??Male?:??1965?? Provider Clinical Summary 57 yo patient with alcohol related cirrhosis, ascites, bleeding gastric varices s/p banding presenting for discussion of possible TIPS creation Chief Complaint NPV Cirrhosis, recurrent ascites, varices with prior bleeding History of Present Illness 57 yo patient with h/o prior right hemicolectomy, alcohol-related [place] [address] class C cirrhosis, recurrent ascites, bleeding varices s/p banding 11/2022??referred to IR by Dr. Kenn Kennedy of [facility] for discussion of TIPS creation. ?? His recent liver disease history??is notable for bleeding esophageal varices requiring hospital admission in November 2022, s/p banding x4 and hemospray use on 11/28/22, no gastric varices seen. Most recent EGD on 02/02/23 showed small esophageal varices, a post-banding ulcer, portal hypertensive gastropathy and duodenopathy. He also has recurrent abdominal ascites requiring large volume paracentesesof??6.2L on 12/14/22 and??6.5L on 11/27/22, no ascitic collection on OSH U/S on 01/03/23. 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 ?? On today's visit, the patient report's his most recent hospital admission was in early February 2023, could not recall exact date and documentation regarding this is not available to us, however patient reports he was kept overnight for observation after a tarry stool. No EGD or cross-sectional imaging performed during that admission. He has not required a paracentesis in months per his report. His abdomen feels somewhat distended to him today, but not to an uncomfortable degree, stating I??can tell??when I am ready to have my belly drained . His appetite is so-so , but improves with marijuana (which he uses once a week). Most recent alcohol use two days prior (4 drinks). +shakes/tremors with prior alcohol withdrawal, denies any alcohol-related seizures. He presently lives in [place], [place] with a roommate, both of them are disable due to medical disease and assist one another with ADLswhenever possible, ECOG 2. ? Review of Systems Review of systems is as detailed above in the HPI, otherwise negative. Physical Exam Vitals & Measurements HR:??88??(Peripheral)?? BP:??100/52?? SpO2:??96%?? WT:??111.36??kg?? Constitutional: Alert, in no distress. Mental Status: Oriented to person, place and time. Head: Normocephalic. Atraumatic. Eyes: No scleral icterus. Respiratory: Clear to auscultation bilaterally. Cardiovascular: Regular rate and rhythm. No auscultated murmurs, rubs or gallops. Gastrointestinal: Abdomen soft, non-tender, mildly obese and mildly distended. Easily reducible terri-umbilical hernia, non-tender to palpation. Skin: No jaundice. Extremities: No lower extremity edema bilaterally. Assessment/Plan 57 yo patient with alcohol-related cirrhosis, bleeding esophageal varices s/p banding in 11/2022, recurrent ascites (most recent LVP in 11/2022), prior thoracenteses for ascites, prior h/o right hemicolectomy who presented today for discussion of TIPS creation. He is currently drinking alcohol, albeit significantly decreased overall intake compared to one year prior per his report,??which presently excludes his transplant candidacy. We had an extensive conversation with the patient regarding the TIPS procedure, including the risks, benefits and alternatives. We discussed the most??significantadverse risk to him apart from procedural risk of hemorrhage, would be hepatic encephalopathy. He is currently doing very well with compliance with his medication regimen- which includes lactulose. He is presently mentating well and without any signs of encephalopathy and therefore TIPS would not be contraindicated in him, we would monitor for HE along with other possible post-TIPS complications and treat this medically if it were to occur, as well as additional options such as constraining of TIPS, etc also exist and would be available to us.? His MELD-Na is 14 based on labwork from 03/13,??improved from prior MELD of 19 in November 2022. Based on current MELD score of 14, his estimated 90 day mortality is <2%.??He has had a hospitalizationwith bleeding esophageal varices requiring banding recently in November 2022, he had small esophageal varices from EGD in January 2023. Currently ascites volume is small, he??has required prior large volume paracenteses (as recently as November 2022) and prior thoracenteses.??Due to medical management, he is currently doing well, however this balance is a tenuous one and his underlying portal hypertensionremains??untreated, placing him at risk of recurrent variceal hemorrhage and other hypertension related complications. He??is currently at the most optimized position he will likely be for TIPS creation. Alternatively, he can opt to continue medical treatment and defer TIPS. The patient stated he would like to proceed with TIPS creation, we will proceed to schedule this with General Anesthesia and overnight admission to hospital medicine for??monitoring. ?? ADDENDUM at 5:30 PM on 03/20: Patient messaged via online portal stating he would now like to hold off on TIPS procedure at this time. Appointment was cancelled by schedulers. We will set-up follow-up with??me in IR clinic in 4-6weeks to reassess the patient and follow- up with him. I believe continued??counseling is required to make the patient aware that his current balance is a tenuous one, with an underlying progressive liver disease, continued alcohol-use and untreated portal hypertension placing him at risk of life-threatening hemorrhage and continued fluid drainage procedures. I will also send a copy of my note to his PCP Dr. Avilez and his GI Dr. Hawk. Attending Attestation ??Entire visit and documentation completed by myself. Total Time Spent I personally spent a total of??55 minutes, including both [id number]-cp-rmuc and nlp-iknj-wc-face time onthe date of the encounter, addressing the above diagnoses. Activities performed in this time include chart review, obtaining / reviewing history, performing amedically necessary evaluation, documentation and Counseling ?? Problem List/Past Medical History Ongoing Colon polyp Dry heaves Epigastric abdominal pain Hypertension Procedure/Surgical History ???Hemicolectomy Laparoscopic Right (Right) (09/13/2015) Medications Inpatient No active inpatient medications Home buPROPion 300 mg/24 hours (XL) oral tablet, extended release, 300 mg= 1 tablet, By Mouth, Every 24 hours Folic Acid, Daily furosemide 20 mg oral tablet, 1 capsule, By Mouth, Once hydrOXYzine pamoate 25 mg oral capsule hyoscyamine 0.125 mg oral tablet, 0.125 mg= 1 tablet, By Mouth, 4 times a day, PRN, 4 refills Insulin Lispro KwikPen 100 units/mL injectable solution lactulose 10 gm/15 ml oral syrup Lantus Solostar Pen 100 units/mL subcutaneous solution LORazepam 0.5 mg oral tablet nadolol 20 mg oral tablet omeprazole 40 mg oral enteric coated capsule, 1 capsule, By Mouth, Daily ondansetron 4 mg oral tablet, disintegrating oxyCODONE 5 mg oral tablet PARoxetine 20 mg oral tablet, 20 mg= 1 tablet, By Mouth, Daily Spironolactone, By Mouth sucralfate 1 gm oral tablet, 1 Gm= 1 tablet, By Mouth, Daily thiamine 100 mg oral tablet, 100 mg= 1 tablet, By Mouth, Daily topiramate 25 mg oral tablet, See Instructions Xifaxan 550 mg oral tablet Allergies NKA Social History Alcohol Use: Current. Frequency: Daily. Type: Liquor. Other: drinks 5 drinks per day. Tobacco Use: Former smoker, quit more than 30 days ago. Family History Bone cancer: Mother. Cancer of colon: Mat. Grandmother. Liver cancer: Mat. Grandmother. Father: History is unknown Immunizations Vaccine Date Status SARS-CoV-2 (COVID-19) Ad26 vaccine 12/07/2020 Given Lab Results No recent labwork available within [facility] system. Patient has brought updated labwork from [facility] with him for today's visit, he states labwork is usually performed on a weekly basis. ?? From 03/13/23: WBC 6.2, H/H 04/24, Platelet count 244, Na 137, K 4.4, Creatinine 0.94, eGFR >60, TBili 1.9, AST 47, ALT 22, Alk Phos 238, Total Protein 7.1, Albumin 3.1, INR 1.3, PT 15.2s Images On review of his imaging, CT A/P from 08/19/20 from [facility] showed diffuse hepatic steatosis with patent portal vein. More recently, CT A/P 10/27/22 performed at [facility] showed nodular cirrhotic liver with mild ascites, esophageal varices, recanalized umbilical vein and pancreatic inflammatory changes concerning for acute on chronic pancreatitis. A CTA Chest was performed on 11/27/22 which showed incompletely visualized moderate to large terri-hepatic ascites with cirrhotic liver and??an abdominal ultrasound was performed on 11/27/22, which confirmed cirrhotic liver and mild to moderate ascites, patent main portal vein. Limited four quadrant abdominal ultrasound from 03/04/23 showed small volume ascites in the RLQ. Images from the 11/27/22 abdominal ultrasound were not available for review, all other imaging studies were reviewed by myself with pertinent findings as above. Note * Jackie Fay: PERFORM, SIGN, VERIFY Event Display: Patient Education/Instruction Authored Date: [id number] [facility] *[facility] [address] Clinical Summary Name DIAZ HER Age 57 Years 1965 PCP Raghav BURDEN, Martin Quintanilla PCP Visit Date 03/19/2023 07:41:00 Additional Instructions: Scheduled Appointments?? Future Appointments ?No Future Appointments Scheduled Follow-Up Instructions ?? With: Address: When: Please schedule for TIPS creation with Dr. Buchanan with General Anesthesia at next available date, overnight admission with Hospital Medicine to follow procedure under OBS status Diagnosis Medications: Please continue your medications until treatment is completed or stopped by your provider. Discuss any questions related to medications with your provider. Medications to Continue with No Changes These medications were not printed or sent to your pharmacy BuPROpion (buPROPion 300 mg/24 hours (XL) oral tablet, extended release) 1 tab(s) Oral every 24 hours. Next Dose: Folic Acid Daily. Next Dose: Furosemide (furosemide 20 mg oral tablet) 1 capsule Oral once. Next Dose: HydrOXYzine (hydrOXYzine pamoate 25 mg oral capsule) Next Dose: Hyoscyamine (hyoscyamine 0.125 mg oral tablet) 1 tab(s) Oral 4 times a day as needed for spasm. Refills: 4. Next Dose: Insulin Glargine (Lantus Solostar Pen 100 units/mL subcutaneous solution) Next Dose: Insulin Lispro (Insulin Lispro KwikPen 100 units/mL injectable solution) Next Dose: Lactulose (lactulose 10 gm/15 ml oral syrup) Next Dose: Lorazepam (LORazepam 0.5 mg oral tablet) Next Dose: Nadolol (nadolol 20 mg oral tablet) Next Dose: Omeprazole (omeprazole 40 mg oral enteric coated capsule) 1 capsule Oral Daily. Refills: 11. Next Dose: Ondansetron (ondansetron 4 mg oral tablet, disintegrating) Next Dose: Oxycodone (oxyCODONE 5 mg oral tablet) Next Dose: Paroxetine (PARoxetine 20 mg oral tablet) 1 tab(s) Oral Daily. Next Dose: Rifaximin (Xifaxan 550 mg oral tablet) Next Dose: Spironolactone Oral. Next Dose: Sucralfate (sucralfate 1 gm oral tablet) 1 tab(s) Oral Daily. Next Dose: Thiamine (thiamine 100 mg oral tablet) 1 tab(s) Oral Daily. Next Dose: Topiramate (topiramate 25 mg oral tablet) TAKE 1 TABLET BY MOUTH AT BEDTIME FOR 1 WEEK THEN TAKE 2 TABLETS AT BEDTIME. Refills: 5. Next Dose: Allergy Info:?? NKA Medications Given This Visit Future Orders ?No future orders Vital Signs Height 195 cm Weight 111.36 kg BMI 29.29 kg/m2 Blood Pressure 100 mm Hg/52 mm Hg Temperature Pulse Rate 88 bpm Respiratory Rate 02 Sat Mode of Delivery 96 %/Room air You can now view a summary of your hospital visit from the comfort of your home through a free online portal called [employer]. [employer] is a website that allows you to securely view your medical information including discharge summary, medications and follow-up visits. ??You can alsosend a secure electronic message to your doctor???s office to request appointments, renew medications or just ask a question. You can enroll at [email or web address] or register during your next office visit. Disclaimer:?? The information provided is of a general nature and is intended to be used in conjunction with the recommendations and advice of your health care practitioner. ??Every effort has been made to ensure that the information provided is accurate and complete at the time it is provided to you however, as your needs change, or, as new ??information becomes available, different or additional instructions may be required. If you have questions, please consult with your primary care provider or pharmacist, as appropriate. ??This information is not intended to serve as substitution for assessment and evaluation by a qualified health care provider. If you do not have a primary care provider, you may find a [facility] provider by calling [email or web address] at [phone]. [facility], in keeping with [facility] guidance, no longer requires face masks for staff, patientsor visitors in most situations. Similar to time spent indoors at other locations, there is the chance that you were exposed to respiratory viruses during your time with us (such as flu or COVID-19).? If you develop symptoms concerning for a viral respiratory infection, please seek testing (and treatment if indicated) from your medical provider or home test kit. For information about the plan of care including goals and instructions for your diagnosis, please see the patient education orders section of this document. Patient Education Materials?? The content of this educational material or handout may have been modified, supplemented, or adapted from its original content and format to support your individualized medical care. Patient Care team information Care Team Personnel Name: Martin Avilez MD Position: S Physician - Primary Care Member Role: PCP Address: Address: [address] [place] [address], [facility] [address] [place] [address]- [place] Care Team Related Persons Name: ROSALBA NAIR Address: home [address] [place] [address] Name: SINDHU WASHINGTON Address: [address] [address]
--- OUTSIDE RECORDS SUMMARY | 2023-12-05 14:30 | XMS_ITS | Continuity of Care Document ---
Author Organization [facility] Address [address] [place] [address]- Care Team Providers Care Extension Service Agent Name Role Phone Martin Avilez MD Primary Care Physician [phone] Encounter [facility] Date(s): 03/26/23 - 04/25/23 [facility] [address] [place] [id number] Allergies, Adverse Reactions, Alerts No Known Allergies [...] Primary Care Member Role: PCP Address: Address: [address] [place] [address], [address] [place] [address]- Care Team Related Persons Name: ROSALBA NAIR Address: home [address] [place] [address] Name: SINDHU WASHINGTON Address: [address] [place] [address]
--- OUTSIDE RECORDS SUMMARY | 2023-12-05 14:30 | XMS_ITS | Continuity of Care Document ---
Author Organization [facility] Address [address] [place] [address]- Care Team Providers Care Router Operator Radial Name Role Phone Martin Avilez MD Primary Care Physician [place] [facility] [place](s[place] 04/02/23 - 05/16/23 [facility] [address] [place] [address] Attending Physician: Jeff Buchanan MD Admitting Physician: Jeff Buchanan MD Allergies, Adverse Reactions, [...] Primary Care Member Role: PCP Address: Address: [address] [place] [address], [address] [facility] [place] [address]- [place] Care Team Related Persons Name: ROSALBA NAIR Address: home [address] [place] [address] Name: SINDHU WASHINGTON Address: home [address], [place] [address]
[2023-12-05 14:33] LABS: Basophils Absolute Auto 0.1 X10*3/uL (0.0-0.2); Eosinophils Absolute Auto 0.1 X10*3/uL (0.0-0.4); Hematocrit 28.2 % (42.0-52.0); Hemoglobin 9.3 g/dl (14.0-18.0); Imm Gran Pct Auto 1.2 % (0.0-0.4); Mean Corpuscular Hemoglobin 27.7 pg (27.0-33.0); Mean Corpuscular Volume 83.9 fL (80.0-98.0); Mean Platelet Volume 8.4 fL (9.4-12.4); Monocytes Absolute Auto 1.3 X10*3/uL (0.1-1.2); Monocytes Percent Auto 15.5 % (2-11); Neutrophils Absolute Auto 5.7 x10*3/uL (2.0-8.3); Neutrophils Percent Auto 69.3 % (45-73); Platelet Count 302 X10*3/uL (160-400); Red Blood Count 3.36 X10*6/uL (4.60-5.80); Red Cell Distribution Width 18.6 % (11.0-16.0); White Blood Count 8.2 X10*3/uL (4.8-10.8)
[2023-12-05 14:35] LABS: INTERNATIONAL NORM RATIO 1.7 (0.9-1.1); Prothrombin Time 20.5 SEC (11.1-13.3)
[2023-12-05 14:44] LABS: Lactic Acid 2.3 mmol/L (0.5-2.0)
[2023-12-05 14:46] LABS: Alanine Aminotransferase 26 U/L (0-40); Albumin Level 2.9 g/dL (3.5-5.0); Alkaline Phosphatase 333 U/L (39-117); Anion Gap 13 (12-20); Aspartate Amino Transferase 61 U/L (5-37); Blood Urea Nitrogen 6 mg/dL (9-16); Calcium 8.4 mg/dL (8.4-10.2); Carbon Dioxide 28 mmol/L (22-29); Chloride 93 mmol/L (96-108); Creatinine Clr Calc Pharmacy 139.3; Estimated Glomerular Filt Rate > 60; Glucose Random 149 mg/dL (60-115); Potassium 3.1 mmol/L (3.3-5.1); Sodium 131 mmol/L (135-145); Total Protein 7.9 g/dL (6.5-8.0)
[2023-12-05 15:44] VITALS: BP 132/74; PULSE 99; RESP 20; TEMP 36.3; O2SAT 100
[2023-12-05 16:28] LABS: Reflex Lactate? Lactic Acid Added
[2023-12-05] MEDS: vancomycin/NS 2,000 MG/500 ML PLAST..BAG 250 MG IV (17:57)
[2023-12-05 18:03] VITALS: RESP 18
[2023-12-05] MEDS: Morphine Sulfate 4 MG/ML CARTRIDGE IVPUSH ×2 (18:03→23:51)
[2023-12-05] MEDS: ondansetron HCL 4 MG/2 ML VIAL IVPUSH (18:03)
[2023-12-05 18:08] LABS: ~Lactic Acid-LAB USE ONLY 2.3 mmol/L (0.5-2.0)
[2023-12-05 18:29] VITALS: BP 105/65; PULSE 91; RESP 16; TEMP 36.8; O2SAT 97
[2023-12-05 18:41] VITALS: RESP 16
[2023-12-05] MEDS: 0.9 % Sodium Chloride 1,000 ML 999 ML IV (18:41)
--- NOTE | 2023-12-05 19:34 | PHA.MEDREC ---
Pharmacy Consult ? Medication Reconciliation Pharmacy has completed the medication reconciliation. .Patient was here on 11-28-23 and on 11-29-23 confirmed med list through discharge packet and claims.
[2023-12-05 19:52] LABS: Reflex Lactate? 2 Y
[2023-12-05 20:26] LABS: ~Lactic Acid-LAB USE ONLY 1.9 mmol/L (0.5-2.0)
--- NOTE | 2023-12-05 20:28 | PM.IMHP ---
History of Present Illness Date of Service: 12/05/23 Attending physician on admission: Ryan Molina Chief Complaint: Right knee swelling and pain Pt is a 58-year-old male with a PMH significant for?alcoholic cirrhosis, history of PE on Eliquis, insulin dependent type 2 diabetes, portal hypertensive gastropathy, and mood disorder who presents to the ED with?worsening right lower extremity swelling and pain. Patient was previously admitted to the hospital from 11/26 to 12/01 treatment of right knee septic arthritis with 74,000 PMNs and GNR in right knee arthrocentesis. Knee aspirate cultures grew Serratia marcescens and was initially treated with ceftriaxone. Underwent washout on 11/30/2023 and seen by infectious disease who recommended 6 weeks of p.o. Levaquin to be completed 01/11/2024. Patient reports after discharge pain and swelling in left extremity continue to worsen. Swelling began in the knee and extended proximally and distally until it covered the entire extremity. Patient reports limited range of motion secondary to pain. Denies fever, chills. No nausea, vomiting, diarrhea, or abdominal pain. No chest pain/pressure, palpitations. Denies shortness of breath or difficulty breathing. In the ED pt was tachycardic up to 99, vitals otherwise WNL. Labs were significant for stable normocytic anemia of 9.3/28.2, sodium 131, potassium 3.1, chloride 93, lactic acid 2.3 with repeat 2.2 and then 1.9, bilirubin 4.0, AST 61, alk-phos 333, and albumin 2.9. Venous duplex of right lower extremity negative for DVT. Patient was treated with vancomycin, morphine, ondansetron, and IVF. Pt will be admitted to the hospital for treatment further evaluation of lower extremity swelling concerning for worsening septic arthritis of right knee. Review of Systems Review of Systems: Right lower extremity swelling, pain, and redness Otherwise patient denies any acute medical complaints No fever, chills Denies nausea, vomiting, diarrhea, abdominal pain Denies chest pain/pressure, palpitations No shortness a breath or difficulty breathing [facility] Medical History Pulmonary nodule 1 cm or greater in diameter Pleuritic chest pain Pulmonary embolism, bilateral Cirrhosis of liver Diabetes Alcohol use disorder, moderate, dependence Recurrent left pleural effusion Pleural effusion Pericardial effusion Tachycardia Dyspnea Hydropneumothorax Pleural effusion on right Decompensation of cirrhosis of liver Cirrhosis GERD (gastroesophageal reflux disease) Esophageal varices Chronic abdominal pain Gout Peripheral neuropathy Alcoholism Elevated LFTs Family History Mother Cancer Sister Cancer Surgical History History of abdominal paracentesis Hx of esophagogastroduodenoscopy History of thoracentesis H/O colonoscopy H/O cervical spine surgery H/O hemicolectomy Social History Household Members: Other Household Members Other:: 1 Housing: Apartment Are you a primary primary health care nurse to a significant other at home: No Do you presently have visiting nurse or other home services: No Alcohol intake: current Alcohol intake frequency: 3 or more drinks per day Alcohol type: hard liquor Patient Tobacco Use Status: Former Tobacco user Tobacco use type: Cigarette Years Smoked: 35 Smoked in Last 30 Days: No e-Cigarette/Vaping Use: Currently Using Second Hand Smoke Exposure: No Use of substances other than those prescribed or required for medical reasons: Yes Substance Use Type: Marijuana Substance Use Frequency: Monthly Advance Directives: Yes Advance Directives on File: Yes Advance Directives Date on File: 11/27/22 service: No Current occupational status: unemployed Meds Allergies Allergy/AdvReac Type Severity Reaction Status Date / Time No Known Drug Allergies Allergy Mild NONE Verified 12/05/23 14:05 [NO KNOWN DRUG ALLERGIES] Home Medications ?Medication ?Instructions ?Recorded ?Confirmed ?Last Taken ?Type bupropion HCl 300 mg 24 hr tablet, 300 mg PO DAILY 06/10/21 12/05/23 11/26/23 History extended release folic acid 1 mg tablet 1 mg PO DAILY 06/10/21 12/05/23 11/26/23 History thiamine HCl (vitamin B1) 100 mg 100 mg PO DAILY 06/10/21 12/05/23 11/26/23 History tablet albuterol sulfate 90 mcg/actuation 2 puff inhalation Q6H PRN 01/26/22 12/05/23 04/09/23 History aerosol inhaler (ProAir HFA) Shortness Of Breath hydroxyzine pamoate 25 mg capsule 50 mg PO DAILY PRN itching 01/26/22 12/05/23 04/08/23 History lorazepam 0.5 mg tablet 0.5 mg PO DAILY PRN anxiety attack 07/13/22 12/05/23 10/27/22 History paroxetine HCl 20 mg tablet 20 mg PO DAILY 07/13/22 12/05/23 11/26/23 History insulin glargine 100 unit/mL (3 20 unit subcut DAILY PRN elevated 11/27/22 12/05/23 04/08/23 History mL) subcutaneous pen blood sugar insulin lispro 100 unit/mL 1 sliding scale dose subcut QIDACHS 03/03/23 12/05/23 11/26/23 History subcutaneous pen oxycodone 5 mg capsule 5 - 10 mg PO DAILY PRN Pain 04/09/23 12/05/23 Unknown History acamprosate 333 mg tablet,delayed 333 mg PO Q8H PRN ALCOHOL 11/27/23 12/05/23 Unknown History release ABSTINENCE carvedilol 6.25 mg tablet 6.25 mg PO BIDWM 11/27/23 12/05/23 11/26/23 History lactulose 10 gram/15 mL oral 30 ml PO TID PRN hepatic 11/27/23 12/05/23 Unknown History solution encephalopathy omeprazole 40 mg capsule,delayed 40 mg PO DAILY@0630 11/27/23 12/05/23 11/26/23 History release Physical Exam Vital Signs and Narrative: Vital Signs: Last Vital Signs Temp 98.3 F 12/05/23 18:29 Pulse 91 12/05/23 18:29 Resp 16 12/05/23 18:41 BP 105/65 12/05/23 18:29 Pulse Ox 97 12/05/23 18:29 O2 Del Method Room Air 12/05/23 18:29 BMI result Body Mass Index 29.0 General: AOx3, no acute distress Resp: CTA bilaterally CVS: S1, S2, RRR GI: +BS, NT, no distention Skin: Warm, dry Neuro: Cranial nerves II-XII grossly intact bilaterally. Motor grossly intact bilaterally Extremities: Range of motion of right lower extremity limited secondary to pain. Lower right extremity swelling and warmth with posterior ecchymosis of right thigh extending to just below the knee. As pictured below Psych: Appropriate affect Results Labs 12/05/23 14:23 12/05/23 14:23 Labs: Laboratory Results - last 24 hr 12/05/23 12/05/23 12/05/23 14:23 17:47 20:06 MCV 83.9 MCH 27.7 MCHC 33.0 RDW 18.6 H Plt Count 302 D MPV 8.4 L Immature Gran % (Auto) 1.2 H Neut % (Auto) 69.3 Lymph % (Auto) 12.0 L [place] % (Auto) 15.5 H Eos % (Auto) 1.0 Baso % (Auto) 1.0 Lymph # (Auto) 1.0 L [place] # (Auto) 1.3 H Eos # (Auto) 0.1 Baso # (Auto) 0.1 Abs Immat Gran (auto) 0.10 H Absolute Neuts (auto) 5.7 Absolute Nucleated RBC 0.000 Nucleated RBC % (auto) 0.0 PT 20.5 H INR 1.7 H Anion Gap 13 Estim Creat Clear Calc 139.3 Estimated GFR > 60 Random Glucose 149 H Lactic Acid 2.3 H* Lactic Acid F/U @ 2Hr 2.3 H* Lactic Acid F/U @ 4Hr 1.9 Calcium 8.4 Total Bilirubin 4.0 H AST 61 H ALT 26 Alkaline Phosphatase 333 H Total Protein 7.9 Albumin 2.9 L Imaging Radiologist's Impressions: Impressions Venous Duplex 12/05/23 14:49 IMPRESSION: No DVT demonstrated in the right lower extremity. Assessment and Plan (1) Septic arthritis of knee, right: Status: Acute Plan Pt is a 58-year-old male with a PMH significant for?alcoholic cirrhosis, history of PE on Eliquis, insulin dependent type 2 diabetes, portal hypertensive gastropathy, and mood disorder who presents to the ED with?worsening right lower extremity swelling and pain. Patient was previously admitted to the hospital from 11/26 to 12/01 treatment of right knee septic arthritis with 74,000 PMNs and GNR in right knee arthrocentesis. Pt will be admitted to the hospital for treatment and further evaluation of lower extremity swelling concerning for worsening septic arthritis of right knee. Right lower extremity swelling and pain In the setting of right knee septic arthritis S/P right knee arthroscopic lavage on 11/30/2023 U/S venous Doppler negative for DVT Patient does not meet sepsis criteria: HR>90, but no tachypnea, fever, or leukocytosis Will treat with Levaquin 750 mg IV daily Orthopedic consult NPO after midnight for possible surgical procedure in the morning Follow blood Lactic acidosis, resolved Initial lactic acid 2.3 with repeat 2.3 and then 1.9 Patient received IVF and continued on broad-spectrum antibiotics in the ED Patient does not meet SIRS criteria; clinically is well-appearing and does not look septic No further treatment or workup indicated at this time Hyponatremia, mild Sodium 131 at time of presentation Roughly in line with previous, patient chronically hypernatremic or at low normal Follow BMP History of PE Hold Eliquis for likely orthopedic surgical procedure Insulin-dependent type 2 diabetes mellitus Sliding-scale insulin Will hold Lantus for now as patient will be NPO after midnight Diabetic diet Alcoholic cirrhosis Continue diuretics, rifaximin, thiamine, folate Lactulose p.r.n. Portal hypertensive gastropathy Continue PPI and sucralfate Mood disorder Continue mood stabilizers Full Code Attending:?Dr. Solis DVT Prophylaxis: Pneumatic boots for now, Eliquis on hold for possible OR procedure Pt will require a hospitalization of at least two nights for treatment of?right lower extremity pain and swelling in the setting of right knee septic arthritis. Patient will be treated with IV antibiotics, possible OR procedure, and specialist consultation with Orthopedics. Quality Stroke Does the patient have a stroke diagnosis?: No VTE Prior VTE?: No VTE Risk Level:: Medical - moderate - high VTE Device Contraindication: Treatment Not Indicated VTE Drug Contraindication: N/A - Med Ordered
[2023-12-05] MEDS: levoFLOXacin/D5W 750 MG/150 ML PIGGYBACK 100 MG IV (20:45)
--- NOTE | 2023-12-05 20:47 | PC.NURSE ---
this rn assumed care of pt, pt medicated per mar at this time. pt ambulated to bathroom with steady gait. pt noted to have redness and swelling to the right knee and upper leg, pt reports it is tender to touch. Hospitalist at bedside.
[2023-12-05 20:52] VITALS: BP 143/79; PULSE 100; RESP 20; TEMP 36.9; O2SAT 98
[2023-12-06] VITALS (15 sets, daily range): BP systolic 122–158; BP diastolic 81–90; PULSE 70–99; RESP 14–20; TEMP 36.2–37; O2SAT 94–99; BMI 29.1
[2023-12-06] MEDS: 0.9 % Sodium Chloride Flush 3 ML SYRINGE IVFLUSH ×3 (01:03→15:49)
[2023-12-06 06:30] LABS: Anion Gap 8 (12-20); Blood Urea Nitrogen 6 mg/dL (9-16); Carbon Dioxide 30 mmol/L (22-29); Chloride 97 mmol/L (96-108); Creatinine Clr Calc Pharmacy 163.1; Estimated Glomerular Filt Rate > 60; Glucose Random 138 mg/dL (60-115); Potassium 3.1 mmol/L (3.3-5.1); Sodium 132 mmol/L (135-145)
[2023-12-06 07:27] LABS: Glucose, Whole Blood 148 mg/dL (60-115)
[2023-12-06] MEDS: Morphine Sulfate 4 MG/ML CARTRIDGE IVPUSH ×2 (08:21→21:28)
[2023-12-06] MEDS: ondansetron HCL 4 MG/2 ML VIAL IVPUSH (08:21)
[2023-12-06] MEDS: Spironolactone 25 MG TABLET 200 MG PO (08:21)
[2023-12-06] MEDS: Furosemide 40 MG TABLET 80 MG PO (08:22)
[2023-12-06] MEDS: Thiamine HCL 100 MG TABLET PO (08:22)
[2023-12-06] MEDS: Folic Acid 1 MG TABLET PO (08:22)
--- NOTE | 2023-12-06 08:40 | PC.NURSE ---
patient medicated per the MAR, dropped one medication on floor. patient utilizing prn pain medications at this time. ambulating independently to bathroom with cane. remains alert and oriented with even and unlabored respirations.
--- NOTE | 2023-12-06 09:41 | P.PNIM_ITS ---
Subjective Subjective Date of Service: 12/06/23 Interval History: seen and evaluated this morning complaining of pain in right leg with swelling and bruises no erythema or warmth noticed no fever Review of Systems Review of Systems: Yes all other systems are reviewed and are negative Physical Exam 2 Vital Signs: Vital Signs: Last Vital Signs Temp 98.0 F 12/06/23 07:51 Pulse 96 12/06/23 07:51 Resp 16 12/06/23 07:51 BP 158/89 H 12/06/23 07:51 Pulse Ox 96 12/06/23 07:51 O2 Del Method Room Air 12/06/23 07:51 BMI result Body Mass Index 29.0 Const: Other: Constitutional : Awake, interactive, not in distress Neck : Normal inspection, Supple Cardiovascular : RRR, no JVP, no lower extremity edema Respiratory : good bilateral air entry, no crackles, wheezes or rhonchi Gastrointestinal: soft, lax, Normal bowel sounds, Non tender Skin : Warm, Dry Extremities: RLE with swelling all over the leg, tense over the thigh, bruises on the back of leg, normal pulses Neurological : Alert & oriented x3, No focal deficit Objective Data Active Medications Acamprosate (Acamprosate Calcium 333 Mg Tablet.Dr) 333 mg PO Q8H PRN PRN Reason: ALCOHOL ABSTINENCE Acetaminophen (Acetaminophen 325 Mg Tablet) 650 mg PO Q6H PRN PRN Reason: Pain, Mild (Pain Scale 1-3) Albuterol Sulfate (Albuterol Sulfate 90 Mcg 8 Gm Inhaler) 2 puff INHALE Q6H PRN PRN Reason: Shortness Of Breath Benzonatate (Benzonatate 100 Mg Capsule) 100 mg PO TID PRN PRN Reason: Cough Bupropion HCl (Bupropion Hcl Xl 300 Mg Tab.Er.24h) 300 mg PO DAILY [facility] Carvedilol (Carvedilol 6.25 Mg Tablet) 6.25 mg PO BIDWM [facility]; Protocol Last Admin: 12/06/23 08:22 Dose: Not Given Documented By: ERNESTO Non-Admin Reason: NPO Docusate Sodium (Docusate Sodium 100 Mg Capsule) 100 mg PO DAILY PRN PRN Reason: Constipation Folic Acid (Folic Acid 1 Mg Tablet) 1 mg PO DAILY [facility] Last Admin: 12/06/23 08:22 Dose: 1 mg Documented By: ERNESTO Furosemide (Furosemide 40 Mg Tablet) 80 mg PO DAILY [facility]; Protocol Last Admin: 12/06/23 08:22 Dose: 80 mg Documented By: ERNESTO Glucose (Glucose Gel 15 Gm Gel..Gram.) 15 gm PO Q15M PRN; Protocol PRN Reason: per Hypoglycemia Standing Ord. Hydromorphone HCl (Hydromorphone Hcl 2 Mg Tablet) 2 mg PO Q4H PRN PRN Reason: moderate pain (scale score 5-6) Hydroxyzine HCl (Hydroxyzine Hcl 50 Mg Tablet) 50 mg PO DAILY PRN PRN Reason: itching Levofloxacin (Levaquin) 750 mg in 150 mls @ 100 mls/hr IV Q24H RYAN Dextrose (D10) 250 mls @ 750 mls/hr IV Q15M PRN; Protocol PRN Reason: per Hypoglycemia Standing Ord. Insulin Glargine (Insulin Glargine,Hum.Rec.Anlog 100 Unit/Ml 10 Ml Vial) 14 unit SUBCUT DAILY PRN PRN Reason: elevated blood sugar Insulin Human Lispro (Insulin Lispro 100 Unit/Ml 3 Ml Vial) 0 unit SUBCUT QIDACHS [facility]; Protocol Last Admin: 12/06/23 07:32 Dose: Not Given Documented By: ERNESTO Non-Admin Reason: No Insulin Coverage Lactulose (Lactulose 20 Gm/30 Ml Solution) 20 gm PO TID PRN PRN Reason: hepatic encephalopathy Lorazepam (Lorazepam 0.5 Mg Tablet) 0.5 mg PO DAILY PRN PRN Reason: anxiety attack Melatonin (Melatonin 3 Mg Tablet) 6 mg PO BEDTIME PRN PRN Reason: Insomnia Morphine Sulfate (Morphine Sulfate 4 Mg/Ml Cartridge) 4 mg IVPUSH Q4H PRN; Protocol PRN Reason: Pain, Severe (Pain Scale 7-10) Last Admin: 12/06/23 08:21 Dose: 4 mg Documented By: ERNESTO Omeprazole (Omeprazole 40 Mg Capsule.Dr) 40 mg PO DAILY@0630 [facility] Ondansetron HCl (Ondansetron Hcl 4 Mg/2 Ml Vial) 4 mg IVPUSH Q8H PRN PRN Reason: Nausea and Vomiting Last Admin: 12/06/23 08:21 Dose: 4 mg Documented By: ERNESTO Rifaximin (Rifaximin 550 Mg Tablet) 550 mg PO BID [facility] Sodium Chloride (0.9 % Sodium Chloride Flush 3 Ml Syringe) 3 ml IVFLUSH QSHIFT [facility] Last Admin: 12/06/23 08:21 Dose: 3 ml Documented By: ERNESTO Spironolactone (Spironolactone 25 Mg Tablet) 200 mg PO DAILY [facility]; Protocol Last Admin: 12/06/23 08:21 Dose: 175 mg Documented By: ERNESTO Thiamine HCl (Thiamine Hcl 100 Mg Tablet) 100 mg PO DAILY [facility] Last Admin: 12/06/23 08:22 Dose: 100 mg Documented By: ERNESTO Labs 12/05/23 14:23 12/06/23 04:40 Labs: Laboratory Results - last 24 hr 12/05/23 12/05/23 12/05/23 14:23 17:47 20:06 MCV 83.9 MCH 27.7 MCHC 33.0 RDW 18.6 H Plt Count 302 D MPV 8.4 L Immature Gran % (Auto) 1.2 H Neut % (Auto) 69.3 Lymph % (Auto) 12.0 L [place] % (Auto) 15.5 H Eos % (Auto) 1.0 Baso % (Auto) 1.0 Lymph # (Auto) 1.0 L [place] # (Auto) 1.3 H Eos # (Auto) 0.1 Baso # (Auto) 0.1 Abs Immat Gran (auto) 0.10 H Absolute Neuts (auto) 5.7 Absolute Nucleated RBC 0.000 Nucleated RBC % (auto) 0.0 PT 20.5 H INR 1.7 H Anion Gap 13 Estim Creat Clear Calc 139.3 Estimated GFR > 60 POC Glucose Random Glucose 149 H Lactic Acid 2.3 H* Lactic Acid F/U @ 2Hr 2.3 H* Lactic Acid F/U @ 4Hr 1.9 Calcium 8.4 Total Bilirubin 4.0 H AST 61 H ALT 26 Alkaline Phosphatase 333 H Total Protein 7.9 Albumin 2.9 L 12/06/23 12/06/23 04:40 07:23 MCV MCH MCHC RDW Plt Count MPV Immature Gran % (Auto) Neut % (Auto) Lymph % (Auto) [place] % (Auto) Eos % (Auto) Baso % (Auto) Lymph # (Auto) [place] # (Auto) Eos # (Auto) Baso # (Auto) Abs Immat Gran (auto) Absolute Neuts (auto) Absolute Nucleated RBC Nucleated RBC % (auto) PT INR Anion Gap 8 L Estim Creat Clear Calc 163.1 Estimated GFR > 60 POC Glucose 148 H Random Glucose 138 H Lactic Acid Lactic Acid F/U @ 2Hr Lactic Acid F/U @ 4Hr Calcium 8.0 L Total Bilirubin AST ALT Alkaline Phosphatase Total Protein Albumin Assessment and Plan (1) Septic arthritis of knee, right: Status: Acute (2) Swelling of right knee joint: Status: Acute Plan Pt is a 58-year-old male with a PMH significant for?alcoholic cirrhosis, history of PE on Eliquis, insulin dependent type 2 diabetes, portal hypertensive gastropathy, and mood disorder who presents to the ED with?worsening right lower extremity swelling and pain. Patient was previously admitted to the hospital from 11/26 to 12/01 treatment of right knee septic arthritis with 74,000 PMNs and GNR in right knee arthrocentesis. Pt will be admitted to the hospital for treatment and further evaluation of lower extremity swelling concerning for worsening septic arthritis of right knee. Right lower extremity swelling and pain In the setting of right knee septic arthritis S/P right knee arthroscopic lavage on 11/30/2023 U/S venous Doppler negative for DVT Continue Levaquin 750 mg IV daily Orthopedic consult ID consult NPO for surgical procedure this afternoon Follow blood cultures Lactic acidosis, resolved acute hypokalemia K 3.1, replacement given. Hyponatremia, mild Sodium 132 patient chronically hypernatremic or at low normal Follow BMP History of PE Hold Eliquis for likely orthopedic surgical procedure Insulin-dependent type 2 diabetes mellitus Sliding-scale insulin hold Lantus for now Diabetic diet Alcoholic cirrhosis Continue diuretics, rifaximin, thiamine, folate Lactulose p.r.n. Portal hypertensive gastropathy Continue PPI and sucralfate Mood disorder Continue mood stabilizers Full Code DVT Prophylaxis: Pneumatic boots for now, Eliquis on hold for possible OR procedure Pt will require a hospitalization of at least two nights for treatment of?right lower extremity pain and swelling in the setting of right knee septic arthritis. Patient will be treated with IV antibiotics and OR procedure, and specialist consultation with Orthopedics. Quality Stroke Does the patient have a stroke diagnosis?: No VTE Prior VTE?: No VTE Risk Level:: Medical - moderate - high VTE Device Contraindication: Treatment Not Indicated VTE Drug Contraindication: N/A - Med Ordered
--- NOTE | 2023-12-06 10:11 | PM.CNOR ---
History of Present Illness HPI Consult date: 12/06/23 <Clay Mello PA-C - Last Filed: 12/06/23 13:17> Chief complaint: Worsening Right Septic Knee <ABBEY Garcia - Last Filed: 12/06/23 12:31> Narrative: Patient is a 58-year-old male previously treated for septic arthritis of his right knee, status post arthroscopy and washout of his right knee with Dr. Mosher on 11/30/2023, and discharged on 12/02/2023, who presented to the emergency department yesterday with complaints of pain in his lateral thigh, swelling throughout the entire right lower extremity, and erythema spreading from his knee proximally up into his thigh. During his previous visit, cultures of his synovial fluid in his right knee were drawn, and grew Serratia. Patient was discharged previously on Levaquin. Patient reports that redness and swelling in his knee have been persistent since time of his procedure, but he came back to the hospital when he noticed pain in his right lateral thigh, worsening RLE swelling, and erythema of previously present in his knee migrating proximally up his thigh. Today, he reports significant pain remaining on the lateral aspect of his thigh, erythema in his knee and thigh, and swelling throughout his right lower extremity. Patient reports no fevers or chills. <ABBEY Garcia - Last Filed: 12/06/23 12:31> Review of Systems Review of Systems: Yes all other systems are reviewed and are negative <ABBEY Garcia - Last Filed: 12/06/23 12:31> [facility] Past Medical History Medical History: Medical History Pulmonary nodule 1 cm or greater in diameter Pleuritic chest pain Pulmonary embolism, bilateral Cirrhosis of liver Diabetes Alcohol use disorder, moderate, dependence Recurrent left pleural effusion Pleural effusion Pericardial effusion Tachycardia Dyspnea Hydropneumothorax Pleural effusion on right Decompensation of cirrhosis of liver Cirrhosis GERD (gastroesophageal reflux disease) Esophageal varices Chronic abdominal pain Gout Peripheral neuropathy Alcoholism Elevated LFTs <ABBEY Garcia - Last Filed: 12/06/23 12:31> Family History Family History: Family History Mother Cancer Sister Cancer <ABBEY Garcia - Last Filed: 12/06/23 12:31> Surgical History Surgical History: Surgical History History of abdominal paracentesis Hx of esophagogastroduodenoscopy History of thoracentesis H/O colonoscopy H/O cervical spine surgery H/O hemicolectomy <ABBEY Garcia - Last Filed: 12/06/23 12:31> Social History Social History: Social History Household Members: Other Household Members Other:: 1 Housing: Apartment Are you a primary child care lead teacher to a significant other at home: No Do you presently have visiting nurse or other home services: No Alcohol intake: current Alcohol intake frequency: 3 or more drinks per day Alcohol type: hard liquor Patient Tobacco Use Status: Former Tobacco user Tobacco use type: Cigarette Years Smoked: 35 Smoked in Last 30 Days: No e-Cigarette/Vaping Use: Currently Using Second Hand Smoke Exposure: No Use of substances other than those prescribed or required for medical reasons: Yes Substance Use Type: Marijuana Substance Use Frequency: Monthly Advance Directives: Yes Advance Directives on File: Yes Advance Directives Date on File: 11/27/22 Do you have a plan to hurt others: No Plan Nutrition Risks: No Nutritional Risk service: No Current occupational status: unemployed <ABBEY Garcia - Last Filed: 12/06/23 12:31> Meds Allergies/Adverse reactions: Allergies Allergy/AdvReac Type Severity Reaction Status Date / Time No Known Drug Allergies Allergy Mild NONE Verified 12/05/23 14:05 [NO KNOWN DRUG ALLERGIES] <ABBEY Garcia - Last Filed: 12/06/23 12:31> Active Medications: Current Medications Acamprosate (Acamprosate Calcium 333 Mg Tablet.) 333 mg PO Q8H PRN PRN Reason: ALCOHOL ABSTINENCE Acetaminophen (Acetaminophen 325 Mg Tablet) 650 mg PO Q6H PRN PRN Reason: Pain, Mild (Pain Scale 1-3) Albuterol Sulfate (Albuterol Sulfate 90 Mcg 8 Gm Inhaler) 2 puff INHALE Q6H PRN PRN Reason: Shortness Of Breath Benzonatate (Benzonatate 100 Mg Capsule) 100 mg PO TID PRN PRN Reason: Cough Bupropion HCl (Bupropion Hcl Xl 300 Mg Tab.Er.24h) 300 mg PO DAILY [facility] Carvedilol (Carvedilol 6.25 Mg Tablet) 6.25 mg PO BIDWM [facility]; Protocol Last Admin: 12/06/23 08:22 Dose: Not Given Docusate Sodium (Docusate Sodium 100 Mg Capsule) 100 mg PO DAILY PRN PRN Reason: Constipation Folic Acid (Folic Acid 1 Mg Tablet) 1 mg PO DAILY [facility] Last Admin: 12/06/23 08:22 Dose: 1 mg Furosemide (Furosemide 40 Mg Tablet) 80 mg PO DAILY [facility]; Protocol Last Admin: 12/06/23 08:22 Dose: 80 mg Glucose (Glucose Gel 15 Gm Gel..Gram.) 15 gm PO Q15M PRN; Protocol PRN Reason: per Hypoglycemia Standing Ord. Hydromorphone HCl (Hydromorphone Hcl 2 Mg Tablet) 2 mg PO Q4H PRN PRN Reason: moderate pain (scale score 5-6) Hydroxyzine HCl (Hydroxyzine Hcl 50 Mg Tablet) 50 mg PO DAILY PRN PRN Reason: itching Levofloxacin (Levaquin) 750 mg in 150 mls @ 100 mls/hr IV Q24H [facility] Dextrose (D10) 250 mls @ 750 mls/hr IV Q15M PRN; Protocol PRN Reason: per Hypoglycemia Standing Ord. Insulin Glargine (Insulin Glargine,Hum.Rec.Anlog 100 Unit/Ml 10 Ml Vial) 14 unit SUBCUT DAILY PRN PRN Reason: elevated blood sugar Insulin Human Lispro (Insulin Lispro 100 Unit/Ml 3 Ml Vial) 0 unit SUBCUT QIDACHS [facility]; Protocol Last Admin: 12/06/23 07:32 Dose: Not Given Lactulose (Lactulose 20 Gm/30 Ml Solution) 20 gm PO TID PRN PRN Reason: hepatic encephalopathy Lorazepam (Lorazepam 0.5 Mg Tablet) 0.5 mg PO DAILY PRN PRN Reason: anxiety attack Melatonin (Melatonin 3 Mg Tablet) 6 mg PO BEDTIME PRN PRN Reason: Insomnia Morphine Sulfate (Morphine Sulfate 4 Mg/Ml Cartridge) 4 mg IVPUSH Q4H PRN; Protocol PRN Reason: Pain, Severe (Pain Scale 7-10) Last Admin: 12/06/23 08:21 Dose: 4 mg Omeprazole (Omeprazole 40 Mg Capsule.Dr) 40 mg PO DAILY@0630 [facility] Ondansetron HCl (Ondansetron Hcl 4 Mg/2 Ml Vial) 4 mg IVPUSH Q8H PRN PRN Reason: Nausea and Vomiting Last Admin: 12/06/23 08:21 Dose: 4 mg Rifaximin (Rifaximin 550 Mg Tablet) 550 mg PO BID [facility] Sodium Chloride (0.9 % Sodium Chloride Flush 3 Ml Syringe) 3 ml IVFLUSH QSHIFT [facility] Last Admin: 12/06/23 08:21 Dose: 3 ml Spironolactone (Spironolactone 25 Mg Tablet) 200 mg PO DAILY [facility]; Protocol Last Admin: 12/06/23 08:21 Dose: 175 mg Thiamine HCl (Thiamine Hcl 100 Mg Tablet) 100 mg PO DAILY [facility] Last Admin: 12/06/23 08:22 Dose: 100 mg <ABBEY Garcia - Last Filed: 12/06/23 12:31> Home medications: Home Medications ?Medication ?Instructions ?Recorded ?Confirmed ?Last Taken ?Type bupropion HCl 300 mg 24 hr tablet, 300 mg PO DAILY 06/10/21 12/05/23 11/26/23 History extended release folic acid 1 mg tablet 1 mg PO DAILY 06/10/21 12/05/23 11/26/23 History thiamine HCl (vitamin B1) 100 mg 100 mg PO DAILY 06/10/21 12/05/23 11/26/23 History tablet albuterol sulfate 90 mcg/actuation 2 puff inhalation Q6H PRN 01/26/22 12/05/23 04/09/23 History aerosol inhaler (ProAir HFA) Shortness Of Breath hydroxyzine pamoate 25 mg capsule 50 mg PO DAILY PRN itching 01/26/22 12/05/23 04/08/23 History lorazepam 0.5 mg tablet 0.5 mg PO DAILY PRN anxiety attack 07/13/22 12/05/23 10/27/22 History paroxetine HCl 20 mg tablet 20 mg PO DAILY 07/13/22 12/05/23 11/26/23 History insulin glargine 100 unit/mL (3 20 unit subcut DAILY PRN elevated 11/27/22 12/05/23 04/08/23 History mL) subcutaneous pen blood sugar insulin lispro 100 unit/mL 1 sliding scale dose subcut QIDACHS 03/03/23 12/05/23 11/26/23 History subcutaneous pen oxycodone 5 mg capsule 5 - 10 mg PO DAILY PRN Pain 04/09/23 12/05/23 Unknown History acamprosate 333 mg tablet,delayed 333 mg PO Q8H PRN ALCOHOL 11/27/23 12/05/23 Unknown History release ABSTINENCE carvedilol 6.25 mg tablet 6.25 mg PO BIDWM 11/27/23 12/05/23 11/26/23 History lactulose 10 gram/15 mL oral 30 ml PO TID PRN hepatic 11/27/23 12/05/23 Unknown History solution encephalopathy omeprazole 40 mg capsule,delayed 40 mg PO DAILY@0630 11/27/23 12/05/23 11/26/23 History release <ABBEY Garcia Last Filed: 12/06/23 12:31> Physical Exam Vital Signs: Vital Signs: Last Vital Signs Temp 98.0 F 12/06/23 07:51 Pulse 96 12/06/23 07:51 Resp 16 12/06/23 07:51 BP 158/89 H 12/06/23 07:51 Pulse Ox 96 12/06/23 07:51 O2 Del Method Room Air 12/06/23 07:51 BMI result Body Mass Index 29.0 <ABBEY Garcia - Last Filed: 12/06/23 12:31> Const: Other: Patient is alert, oriented, cooperative, and in no acute distress <ABBEY Garcia Last Filed: 12/06/23 12:31> HEENT: Head: Yes normocephalic and Yes atraumatic <ABBEY Garcia Last Filed: 12/06/23 12:31> Resp: Effort & Inspection: normal respiratory effort and able to speak in complete sentences <ABBEY Garcia Last Filed: 12/06/23 12:31> Cardio: Jugular venous distension: no JVD <ABBEY Garcia Last Filed: 12/06/23 12:31> Neuro: General: gait normal <ABBEY Garcia Last Filed: 12/06/23 12:31> Cognition (Neuro): normal cognition <ABBEY Garcia Last Filed: 12/06/23 12:31> Extrem: Other: Inspection of the patient's right lower extremity reveals swelling from his thigh down to his toes, significant ecchymosis on the lateral aspect of his thigh, erythema extending from his knee up into the anterior aspect of his thigh, and erythema of his posterior calf. Patient reports significant tenderness to palpation over the lateral aspect of his thigh. He reports no tenderness to palpation in his knee. No tenderness to palpation of his calf or calf squeeze. ROM at the knee limited. Patient is able to plantar flex and dorsiflex his foot as well as flex and extend his toes. NVI. Unable to appreciate pedal pulses, likely secondary to edema, however cap refill brisk. <ABBEY Garcia - Last Filed: 12/06/23 12:31> Psych: Appearance: grossly normal <ABBEY Garcia - Last Filed: 12/06/23 12:31> Mental Status: mental status grossly normal <ABBEY Garcia - Last Filed: 12/06/23 12:31> Results Labs Result Diagrams: 12/05/23 14:23 12/06/23 04:40 <ABBEY Garcia - Last Filed: 12/06/23 12:31> Labs: Abnormal lab results 12/05/23 12/05/23 12/06/23 Range/Units 14:23 17:47 04:40 RBC 3.36 L (4.60-5.80) X10*6/uL Hgb 9.3 L (14.0-18.0) g/dl Hct 28.2 L (42.0-52.0) % RDW 18.6 H (11.0-16.0) % MPV 8.4 L (9.4-12.4) fL Immature Gran % (Auto) 1.2 H (0.0-0.4) % Lymph % (Auto) 12.0 L (20-40) % [place] % (Auto) 15.5 H (2-11) % Lymph # (Auto) 1.0 L (1.2-4.9) X10*3/uL [place] # (Auto) 1.3 H (0.1-1.2) X10*3/uL Abs Immat Gran (auto) 0.10 H (0.00-0.03) X10*3/uL PT 20.5 H (11.1-13.3) SEC INR 1.7 H (0.9-1.1) Sodium 131 L 132 L (135-145) mmol/L Potassium 3.1 L 3.1 L (3.3-5.1) mmol/L Chloride 93 L (96-108) mmol/L Carbon Dioxide 30 H (22-29) mmol/L Anion Gap 8 L (12-20) BUN 6 L 6 L (9-16) mg/dL POC Glucose (60-115) mg/dL Random Glucose 149 H 138 H (60-115) mg/dL Lactic Acid 2.3 H* (0.5-2.0) mmol/L Lactic Acid F/U @ 2Hr 2.3 H* (0.5-2.0) mmol/L Calcium 8.0 L (8.4-10.2) mg/dL Total Bilirubin 4.0 H (0.0-1.0) mg/dL AST 61 H (5-37) U/L Alkaline Phosphatase 333 H (39-117) U/L Albumin 2.9 L (3.5-5.0) g/dL / Range/Units 07:23 RBC (4.60-5.80) X10*6/uL Hgb (14.0-18.0) g/dl Hct (42.0-52.0) % RDW (11.0-16.0) % MPV (9.4-12.4) fL Immature Gran % (Auto) (0.0-0.4) % Lymph % (Auto) (20-40) % [place] % (Auto) (2-11) % Lymph # (Auto) (1.2-4.9) X10*3/uL [place] # (Auto) (0.1-1.2) X10*3/uL Abs Immat Gran (auto) (0.00-0.03) X10*3/uL PT (11.1-13.3) SEC INR (0.9-1.1) Sodium (135-145) mmol/L Potassium (3.3-5.1) mmol/L Chloride (96-108) mmol/L Carbon Dioxide (22-29) mmol/L Anion Gap (12-20) BUN (9-16) mg/dL POC Glucose 148 H (60-115) mg/dL Random Glucose (60-115) mg/dL Lactic Acid (0.5-2.0) mmol/L Lactic Acid F/U @ 2Hr (0.5-2.0) mmol/L Calcium (8.4-10.2) mg/dL Total Bilirubin (0.0-1.0) mg/dL AST (5-37) U/L Alkaline Phosphatase (39-117) U/L Albumin (3.5-5.0) g/dL H & H 12/05/23 Range/Units 14:23 Hgb 9.3 L (14.0-18.0) g/dl Hct 28.2 L (42.0-52.0) % Coagulation 12/05/23 Range/Units 14:23 INR 1.7 H (0.9-1.1) All other labs normal. <ABBEY Garcia Last Filed: 12/06/23 12:31> Assessment and Plan (1) Swelling of right knee joint: Status: Acute <ABBEY Garcia Last Filed: 12/06/23 12:31> I discussed the case with Dr. Mosher and explained the extent of the injury to the patient and options available which include surgical intervention. I explained the procedure in detail along with the length of recovery and rehab course. I explained the risk, benefits and alternatives. Risk including, but not limited to infection, blood clots, bleeding, non union or malunion and nerve/tissue damage to surrounding areas. I answered all their questions and with their understanding they have consented to move forward with arthroscopic lavage of the right knee.The patient will remain NPO. <Clay Mello PA-C - Last Filed: 12/06/23 13:17> Procedures Date of Service Date of Service: 12/06/23 <ABBEY Garcia Last Filed: 12/06/23 12:31> 12/06/23 <Clay Mello PA-C - Last Filed: 12/06/23 13:17>
--- NOTE | 2023-12-06 10:47 | MHC.CM.PN ---
IMM 12/06/23, Pt lives with a roommate, he does not have any home health services. HCP on file and confirmed: Tiny,PCP confirmed: Martin Avilez, sister to transport home at [place]. DME: cane and toilet riser. DCP: home, self care, CM to follow for DC needs.
[2023-12-06] MEDS: rifAXIMin 550 MG TABLET PO ×2 (11:20→20:22)
[2023-12-06] MEDS: buPROPion HCl XL 300 MG TAB.ER.24H PO (11:20)
[2023-12-06] MEDS: Potassium Chloride/H20 10 MEQ/100 ML PIGGYBACK 100 MEQ IV ×2 (11:20→12:32)
--- NOTE | 2023-12-06 13:58 | PC.NURSE ---
report given to surgery, unsure of time for patient to be going to procedure. patient remains NPO at this time, potassium has infused. continues to rest quietly in room, call zaidi w/in reach
[2023-12-06] MEDS: HYDROmorphone HCl 2 MG TABLET PO ×2 (16:14→20:23)
--- NOTE | 2023-12-06 16:38 | MHC.SHP ---
Pre-Procedural Eval Section A - 24 Hr Update-Section A only Date of Service: 12/06/23 The patient is an INPATIENT: Yes Changes since office visit: No Cold of Flu in the past 2 weeks, No New Medical Problems, No Changes in Medication and No Patient answered all questions The patient has been examined within 24 hours of the surgical procedure. The History & Physical has been completed within 30 days and I have reviewed it.: Yes Section B - Complete if H&P > 30 days Chief Complaint: Worsening Right Septic Knee Allergies: Allergies Allergy/AdvReac Type Severity Reaction Status Date / Time No Known Drug Allergies Allergy Mild NONE Verified 12/05/23 14:05 [NO KNOWN DRUG ALLERGIES] Plan I have reviewed the history and physical and performed a pertinent physical examination on my patient. No changes have occurred unless specified. Time Spent With Patient Time: Total time managing care of this patient today ____ minutes.
--- NOTE | 2023-12-06 16:48 | HO.ANESPROP2 ---
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) Acute pancreatitis (Acute) Blood D-dimer assay positive (Acute) Dyspnea (Acute) Pericardial effusion (Acute) Alcohol use disorder, moderate, in early remission (Acute) Hyperammonemia (Acute) Hepatopulmonary syndrome (Acute) Bronchopneumonia (Acute) Hydrothorax (Acute) Alcoholic cirrhosis of liver (Acute) Portal vein thrombosis (Acute) Alcohol withdrawal (Acute) Elevated liver function tests (Acute) Irritable bowel syndrome with diarrhea (Acute) Pleural effusion (Acute) Acute alcoholic pancreatitis (Acute) Neuropathic pain (Acute) Multiple adenomatous polyps (Acute) Degenerative disc disease, cervical (Acute) Chronic low back pain (Acute) Spinal stenosis (Acute) Pulmonary embolism, bilateral (Acute) Pleuritic chest pain (Acute) Recurrent left pleural effusion (Acute) Pleural effusion (Acute) Pericardial effusion (Acute) Tachycardia (Acute) Dyspnea (Acute) Past Medical History Medical History Pulmonary nodule 1 cm or greater in diameter Pleuritic chest pain Pulmonary embolism, bilateral Cirrhosis of liver Diabetes Alcohol use disorder, moderate, dependence Recurrent left pleural effusion Pleural effusion Pericardial effusion Tachycardia Dyspnea Hydropneumothorax Pleural effusion on right Decompensation of cirrhosis of liver Cirrhosis GERD (gastroesophageal reflux disease) Esophageal varices Chronic abdominal pain Gout Peripheral neuropathy Alcoholism Elevated LFTs Family History Family History Mother Cancer Sister Cancer Family history of problems with anesthesia: No Surgical History Surgical History History of abdominal paracentesis Hx of esophagogastroduodenoscopy History of thoracentesis H/O colonoscopy H/O cervical spine surgery H/O hemicolectomy History of Problems with Anesthesia: No Social History Social History Household Members: Other Household Members Other:: 1 Housing: Apartment Are you a primary urgent care physician to a significant other at home: No Do you presently have visiting nurse or other home services: No Alcohol intake: current Alcohol intake frequency: 0-2 drinks per day Alcohol type: hard liquor Patient Tobacco Use Status: Former Tobacco user Tobacco use type: Cigarette Years Smoked: 35 Smoked in Last 30 Days: No e-Cigarette/Vaping Use: Currently Using Second Hand Smoke Exposure: No Use of substances other than those prescribed or required for medical reasons: No Substance Use Type: Marijuana Substance Use Frequency: Monthly Are you DNR?: No Advance Directives: Yes Advance Directives on File: Yes Advance Directives Date on File: 11/27/22 Do you have a plan to hurt others: No Plan Nutrition Risks: No Nutritional Risk service: No Current occupational status: unemployed Meds Allergies Allergy/AdvReac Type Severity Reaction Status Date / Time No Known Drug Allergies Allergy Mild NONE Verified 12/05/23 14:05 [NO KNOWN DRUG ALLERGIES] Active Medications: Current Medications Acamprosate (Acamprosate Calcium 333 Mg Tablet.Dr) 333 mg PO Q8H PRN PRN Reason: ALCOHOL ABSTINENCE Acetaminophen (Acetaminophen 325 Mg Tablet) 650 mg PO Q6H PRN PRN Reason: Pain, Mild (Pain Scale 1-3) Albuterol Sulfate (Albuterol Sulfate 90 Mcg 8 Gm Inhaler) 2 puff INHALE Q6H PRN PRN Reason: Shortness Of Breath Benzonatate (Benzonatate 100 Mg Capsule) 100 mg PO TID PRN PRN Reason: Cough Bupropion HCl (Bupropion Hcl Xl 300 Mg Tab.Er.24h) 300 mg PO DAILY RYAN Last Admin: 12/06/23 11:20 Dose: 300 mg Carvedilol (Carvedilol 6.25 Mg Tablet) 6.25 mg PO BIDWM [facility]; Protocol Last Admin: 12/06/23 16:45 Dose: Not Given Docusate Sodium (Docusate Sodium 100 Mg Capsule) 100 mg PO DAILY PRN PRN Reason: Constipation Fentanyl (Fentanyl Citrate/Pf 100 Mcg/2 Ml Vial) 25 mcg IVPUSH Q5M PRN; Protocol PRN Reason: Pain, Moderate(Pain Scale 4-6) Stop: 12/06/23 22:46 Folic Acid (Folic Acid 1 Mg Tablet) 1 mg PO DAILY [facility] Last Admin: 12/06/23 08:22 Dose: 1 mg Furosemide (Furosemide 40 Mg Tablet) 80 mg PO DAILY [facility]; Protocol Last Admin: 12/06/23 08:22 Dose: 80 mg Glucose (Glucose Gel 15 Gm Gel..Gram.) 15 gm PO Q15M PRN; Protocol PRN Reason: per Hypoglycemia Standing Ord. Hydromorphone HCl (Hydromorphone Hcl 2 Mg Tablet) 2 mg PO Q4H PRN PRN Reason: moderate pain (scale score 5-6) Last Admin: 12/06/23 16:14 Dose: 2 mg Hydroxyzine HCl (Hydroxyzine Hcl 50 Mg Tablet) 50 mg PO DAILY PRN PRN Reason: itching Levofloxacin (Levaquin) 750 mg in 150 mls @ 100 mls/hr IV Q24H [facility] Dextrose (D10) 250 mls @ 750 mls/hr IV Q15M PRN; Protocol PRN Reason: per Hypoglycemia Standing Ord. Insulin Glargine (Insulin Glargine,Hum.Rec.Anlog 100 Unit/Ml 10 Ml Vial) 14 unit SUBCUT DAILY PRN PRN Reason: elevated blood sugar Insulin Human Lispro (Insulin Lispro 100 Unit/Ml 3 Ml Vial) 0 unit SUBCUT QIDACHS [facility]; Protocol Last Admin: 12/06/23 14:41 Dose: Not Given Lactulose (Lactulose 20 Gm/30 Ml Solution) 20 gm PO TID PRN PRN Reason: hepatic encephalopathy Lorazepam (Lorazepam 0.5 Mg Tablet) 0.5 mg PO DAILY PRN PRN Reason: anxiety attack Melatonin (Melatonin 3 Mg Tablet) 6 mg PO BEDTIME PRN PRN Reason: Insomnia Morphine Sulfate (Morphine Sulfate 4 Mg/Ml Cartridge) 4 mg IVPUSH Q4H PRN; Protocol PRN Reason: Pain, Severe (Pain Scale 7-10) Last Admin: 12/06/23 08:21 Dose: 4 mg Omeprazole (Omeprazole 40 Mg Capsule.Dr) 40 mg PO DAILY@0630 RYAN Ondansetron HCl (Ondansetron Hcl 4 Mg/2 Ml Vial) 4 mg IVPUSH Q8H PRN PRN Reason: Nausea and Vomiting Last Admin: 12/06/23 08:21 Dose: 4 mg Ondansetron HCl (Ondansetron Hcl 4 Mg/2 Ml Vial) 4 mg IVPUSH ONCE PRN PRN Reason: Nausea and Vomiting Stop: 12/06/23 22:46 Rifaximin (Rifaximin 550 Mg Tablet) 550 mg PO BID [facility] Last Admin: 12/06/23 11:20 Dose: 550 mg Sodium Chloride (0.9 % Sodium Chloride Flush 3 Ml Syringe) [facility] Last Admin: 12/06/23 15:49 Dose: 3 ml Spironolactone (Spironolactone 25 Mg Tablet) 200 mg PO DAILY [facility]; Protocol Last Admin: 12/06/23 08:21 Dose: 175 mg Thiamine HCl (Thiamine Hcl 100 Mg Tablet) 100 mg PO DAILY [facility] Last Admin: 12/06/23 08:22 Dose: 100 mg Home Medications ?Medication ?Instructions ?Recorded ?Confirmed ?Last Taken ?Type bupropion HCl 300 mg 24 hr tablet, 300 mg PO DAILY 06/10/21 12/05/23 11/26/23 History extended release folic acid 1 mg tablet 1 mg PO DAILY 06/10/21 12/05/23 11/26/23 History thiamine HCl (vitamin B1) 100 mg 100 mg PO DAILY 06/10/21 12/05/23 11/26/23 History tablet albuterol sulfate 90 mcg/actuation 2 puff inhalation Q6H PRN 01/26/22 12/05/23 04/09/23 History aerosol inhaler (ProAir HFA) Shortness Of Breath hydroxyzine pamoate 25 mg capsule 50 mg PO DAILY PRN itching 01/26/22 12/05/23 04/08/23 History lorazepam 0.5 mg tablet 0.5 mg PO DAILY PRN anxiety attack 07/13/22 12/05/23 10/27/22 History paroxetine HCl 20 mg tablet 20 mg PO DAILY 07/13/22 12/05/23 11/26/23 History insulin glargine 100 unit/mL (3 20 unit subcut DAILY PRN elevated 11/27/22 12/05/23 04/08/23 History mL) subcutaneous pen blood sugar insulin lispro 100 unit/mL 1 sliding scale dose subcut QIDACHS 03/03/23 12/05/23 11/26/23 History subcutaneous pen oxycodone 5 mg capsule 5 - 10 mg PO DAILY PRN Pain 04/09/23 12/05/23 Unknown History acamprosate 333 mg tablet,delayed 333 mg PO Q8H PRN ALCOHOL 11/27/23 12/05/23 Unknown History release ABSTINENCE carvedilol 6.25 mg tablet 6.25 mg PO BIDWM 11/27/23 12/05/23 11/26/23 History lactulose 10 gram/15 mL oral 30 ml PO TID PRN hepatic 11/27/23 12/05/23 Unknown History solution encephalopathy omeprazole 40 mg capsule,delayed 40 mg PO DAILY@0630 11/27/23 12/05/23 11/26/23 History release Exam Height,Weight and Vital Signs: Height 6 ft 5 in Weight 111.13 kg Last Vital Signs Temp 98.2 F 12/06/23 15:13 Pulse 89 12/06/23 15:13 Resp 16 12/06/23 15:13 BP 122/81 12/06/23 15:13 Pulse Ox 97 12/06/23 15:13 O2 Del Method Room Air 12/06/23 15:13 Pertinent Lab Results Pertinent Lab Results: Laboratory Tests 12/05/23 12/05/23 12/05/23 14:23 17:47 20:06 WBC 8.2 RBC 3.36 L Hgb 9.3 L Hct 28.2 L MCV 83.9 MCH 27.7 MCHC 33.0 RDW 18.6 H Plt Count 302 D MPV 8.4 L Immature Gran % (Auto) 1.2 H Neut % (Auto) 69.3 Lymph % (Auto) 12.0 L [place] % (Auto) 15.5 H Eos % (Auto) 1.0 Baso % (Auto) 1.0 Lymph # (Auto) 1.0 L [place] # (Auto) 1.3 H Eos # (Auto) 0.1 Baso # (Auto) 0.1 Abs Immat Gran (auto) 0.10 H Absolute Neuts (auto) 5.7 Absolute Nucleated RBC 0.000 Nucleated RBC % (auto) 0.0 PT 20.5 H INR 1.7 H Sodium 131 L Potassium 3.1 L Chloride 93 L Carbon Dioxide 28 Anion Gap 13 BUN 6 L Creatinine 0.82 Estim Creat Clear Calc 139.3 Estimated GFR > 60 POC Glucose Random Glucose 149 H Lactic Acid 2.3 H* Lactic Acid F/U @ 2Hr 2.3 H* Lactic Acid F/U @ 4Hr 1.9 Calcium 8.4 Total Bilirubin 4.0 H AST 61 H ALT 26 Alkaline Phosphatase 333 H Total Protein 7.9 Albumin 2.9 L 12/06/23 12/06/23 04:40 07:23 WBC RBC Hgb Hct MCV MCH MCHC RDW Plt Count MPV Immature Gran % (Auto) Neut % (Auto) Lymph % (Auto) [place] % (Auto) Eos % (Auto) Baso % (Auto) Lymph # (Auto) [place] # (Auto) Eos # (Auto) Baso # (Auto) Abs Immat Gran (auto) Absolute Neuts (auto) Absolute Nucleated RBC Nucleated RBC % (auto) PT INR Sodium 132 L Potassium 3.1 L Chloride 97 Carbon Dioxide 30 H Anion Gap 8 L BUN 6 L Creatinine 0.70 Estim Creat Clear Calc 163.1 Estimated GFR > 60 POC Glucose 148 H Random Glucose 138 H Lactic Acid Lactic Acid F/U @ 2Hr Lactic Acid F/U @ 4Hr Calcium 8.0 L Total Bilirubin AST ALT Alkaline Phosphatase Total Protein Albumin Airway Mallampati Class: III TM Dist: >3cm Neck ROM: Limited Heart: rrr Lungs: cta Assessment and Plan Assessment Anesthesia Assessment: Anesthesia Plan Discussed and Chart Reviewed Final Anesthetic Review Family History of Problems with Anesthesia: No History of Problems with Anesthesia: No NPO: Yes ASA Class: III Final Preanesthetic Review: No Changes in Pt Med Stat, Meds/Allgs Chart Reviewed, Consent Obtained/Reviewed and Anes Risks/Benef Reviewed Patient Risk: Intermediate Procedure Risk: Low Anesthetic Plan Anesthetic Plan: GA Disposition: Standard PACU
[2023-12-06 16:52] LABS: Glucose, Whole Blood 140 mg/dL (60-115)
--- NOTE | 2023-12-06 17:33 | P.BOP_ITS ---
Brief Operative Note Date of Service: 12/06/23 Pre-op diagnosis: right knee sepsis Post-op diagnosis: same Procedure: arthroscopic lavage right knee Implants: none Surgeon: Sudheer Mosher MD Anesthesia: GLMA and local Was an Mailing Machine Helper used for this Procedure?: No Estimated blood loss (mL): 25 IV fluids (mL): 500 Pathology: none sent Condition: stable Disposition: PACU
[2023-12-06] MEDS: levoFLOXacin/D5W 750 MG/150 ML PIGGYBACK 100 MG IV (18:25)
[2023-12-06] MEDS: fentaNYL citrate/PF 100 MCG/2 ML VIAL 25 MCG IVPUSH ×2 (19:32→19:41)
[2023-12-06 20:15] LABS: Glucose, Whole Blood 226 mg/dL (60-115)
[2023-12-06] MEDS: Insulin Lispro 100 UNIT/ML 3 ML VIAL SUBCUT (20:27)
[2023-12-06] MEDS: Melatonin 3 MG TABLET 6 MG PO (21:29)
[2023-12-07] VITALS (8 sets, daily range): BP systolic 113–139; BP diastolic 72–78; PULSE 94–104; RESP 17–18; TEMP 36.2–37; O2SAT 96–98
[2023-12-07] MEDS: HYDROmorphone HCl 2 MG TABLET PO ×4 (00:41→21:53)
[2023-12-07] MEDS: Morphine Sulfate 4 MG/ML CARTRIDGE IVPUSH ×3 (02:10→16:50)
[2023-12-07] MEDS: 0.9 % Sodium Chloride Flush 3 ML SYRINGE IVFLUSH ×4 (02:16→20:55)
[2023-12-07 07:07] LABS: Hematocrit 27.5 % (42.0-52.0); Hemoglobin 9.2 g/dl (14.0-18.0); Mean Corpuscular HGB Conc 33.5 g/dl (31.0-36.0); Mean Corpuscular Hemoglobin 28.2 pg (27.0-33.0); Mean Corpuscular Volume 84.4 fL (80.0-98.0); Mean Platelet Volume 8.8 fL (9.4-12.4); Platelet Count 264 X10*3/uL (160-400); Red Blood Count 3.26 X10*6/uL (4.60-5.80); Red Cell Distribution Width 18.7 % (11.0-16.0); White Blood Count 8.4 X10*3/uL (4.8-10.8)
[2023-12-07 07:23] LABS: Anion Gap 10 (12-20); Blood Urea Nitrogen 8 mg/dL (9-16); Calcium 8.8 mg/dL (8.4-10.2); Carbon Dioxide 28 mmol/L (22-29); Chloride 99 mmol/L (96-108); Creatinine Clr Calc Pharmacy 150.4; Estimated Glomerular Filt Rate > 60; Glucose Random 224 mg/dL (60-115); Potassium 3.9 mmol/L (3.3-5.1); Sodium 133 mmol/L (135-145)
[2023-12-07 08:14] LABS: Glucose, Whole Blood 200 mg/dL (60-115)
[2023-12-07] MEDS: Insulin Lispro 100 UNIT/ML 3 ML VIAL SUBCUT ×4 (08:30→20:54)
[2023-12-07] MEDS: Thiamine HCL 100 MG TABLET PO (08:31)
[2023-12-07] MEDS: Spironolactone 25 MG TABLET 200 MG PO (08:31)
[2023-12-07] MEDS: Furosemide 40 MG TABLET 80 MG PO (08:31)
[2023-12-07] MEDS: carvediloL 6.25 MG TABLET PO ×2 (08:32→16:49)
[2023-12-07] MEDS: Folic Acid 1 MG TABLET PO (08:32)
[2023-12-07] MEDS: buPROPion HCl XL 300 MG TAB.ER.24H PO (08:32)
[2023-12-07] MEDS: rifAXIMin 550 MG TABLET PO ×2 (08:32→20:53)
--- NOTE | 2023-12-07 08:33 | PM.PNORT ---
Subjective Subjective Date of Service: 12/07/23 <BABEY Garcia Last Filed: 12/07/23 08:45> 12/07/23 <Clay Mello PA-C - Last Filed: 12/07/23 08:54> Interval history: Patient is a 58-year-old male with septic arthritis of the right knee, status post 2 arthroscopies and washouts, most recent performed 12/06/2023. Today, the patient reports that he is feeling much better, with less pain in his knee and less redness and swelling in his RLE. The patient also inquires if an insect bite could have caused his current condition, as he was bitten by an unknown insect on the back of his right knee ?a few days before this happened?. <ABBEY Garcia Last Filed: 12/07/23 08:45> Physical Exam Vital Signs: Vital Signs: Last Vital Signs Temp 97.2 F 12/07/23 08:00 Pulse 98 12/07/23 08:00 Resp 18 12/07/23 08:00 BP 139/72 12/07/23 08:00 Pulse Ox 98 12/07/23 08:00 O2 Del Method Room Air 12/07/23 08:00 O2 Flow Rate 6 12/06/23 17:54 BMI result Body Mass Index 29.1 <ABBEY Garcia Last Filed: 12/07/23 08:45> Const: Other: Patient is alert, oriented, cooperative, and in no acute distress <ABBEY Garcia Last Filed: 12/07/23 08:45> HEENT: Head: Yes normocephalic and Yes atraumatic <ABBEY Garcia Last Filed: 12/07/23 08:45> Resp: Effort & Inspection: normal respiratory effort and able to speak in complete sentences <ABBEY Garcia Last Filed: 12/07/23 08:45> Cardio: Jugular venous distension: no JVD <ABBEY Garcia Last Filed: 12/07/23 08:45> Neuro: General: gait normal <ABBEY Garcia Last Filed: 12/07/23 08:45> Cognition (Neuro): normal cognition <ABBEY Garcia Last Filed: 12/07/23 08:45> Extrem: Other: On inspection, the erythema and ecchymosis on the patient's right lower extremity has lessened. The swelling in his right lower extremity has also diminished slightly. No tenderness to palpation. The patient is able to flex and extend at the knee, dorsiflex and plantar flex at the ankle, and flex and extend his toes. NVI. <ABBEY Garcia Last Filed: 12/07/23 08:45> Psych: Appearance: grossly normal <ABBEY Garcia Last Filed: 12/07/23 08:45> Mental Status: mental status grossly normal <ABBEY Garcia Last Filed: 12/07/23 08:45> Procedures Date of Service Date of Service: 12/07/23 <ABBEY Garcia Last Filed: 12/07/23 08:45> 12/07/23 <Clay Mello PA-C - Last Filed: 12/07/23 08:54> Progress Note: A&P Assessment and plan (1) Septic arthritis of knee, right: Status: Acute <ABBEY Garcia Last Filed: 12/07/23 08:45> Assessment and Plan: At this time, plan is to continue IV antibiotics as prescribed by Medicine. Physical therapy will also be ordered for range of motion, quad strengthening, and weight-bearing as tolerated. Orthopedics will continue to follow. <ABBEY Garcia Last Filed: 12/07/23 08:45> Time Spent With Patient Time: Total time managing care of this patient today ____ minutes. <ABBEY Garcia Last Filed: 12/07/23 08:45> Quality Stroke Does the patient have a stroke diagnosis?: No <ABBEY Garcia Last Filed: 12/07/23 08:45> VTE Prior VTE?: No <ABBEY Garcia Last Filed: 12/07/23 08:45> VTE Risk Level:: Medical - moderate - high <ABBEY Garcia Last Filed: 12/07/23 08:45> VTE Device Contraindication: Treatment Not Indicated <ABBEY Garcia Last Filed: 12/07/23 08:45> VTE Drug Contraindication: N/A - Med Ordered <ABBEY Garcia - Last Filed: 12/07/23 08:45>
[2023-12-07 12:07] LABS: Glucose, Whole Blood 235 mg/dL (60-115)
--- NOTE | 2023-12-07 13:04 | P.PNIM_ITS ---
Subjective Subjective Date of Service: 12/07/23 Interval History: seen and evaluated this morning improving pain and swelling in right leg with less bruises no erythema or warmth noticed no fever Review of Systems Review of Systems: Yes all other systems are reviewed and are negative Physical Exam 2 Vital Signs: Vital Signs: Last Vital Signs Temp 97.2 F 12/07/23 11:27 Pulse 104 H 12/07/23 11:27 Resp 18 12/07/23 11:27 BP 137/78 12/07/23 11:27 Pulse Ox 96 12/07/23 11:27 O2 Del Method Room Air 12/07/23 11:27 O2 Flow Rate 6 12/06/23 17:54 BMI result Body Mass Index 29.1 Const: Other: Constitutional : Awake, interactive, not in distress Neck : Normal inspection, Supple Cardiovascular : RRR, no JVP, no lower extremity edema Respiratory : good bilateral air entry, no crackles, wheezes or rhonchi Gastrointestinal: soft, lax, Normal bowel sounds, Non tender Skin : Warm, Dry Extremities: RLE with swelling all over the leg, tense over the thigh, bruises on the back of leg, normal pulses Neurological : Alert & oriented x3, No focal deficit Objective Data Active Medications Acamprosate (Acamprosate Calcium 333 Mg Tablet.Dr) 333 mg PO Q8H PRN PRN Reason: ALCOHOL ABSTINENCE Acetaminophen (Acetaminophen 325 Mg Tablet) 650 mg PO Q6H PRN PRN Reason: Pain, Mild (Pain Scale 1-3) Albuterol Sulfate (Albuterol Sulfate 90 Mcg 8 Gm Inhaler) 2 puff INHALE Q6H PRN PRN Reason: Shortness Of Breath Benzonatate (Benzonatate 100 Mg Capsule) 100 mg PO TID PRN PRN Reason: Cough Bupropion HCl (Bupropion Hcl Xl 300 Mg Tab.Er.24h) 300 mg PO DAILY [facility] Last Admin: 12/07/23 08:32 Dose: 300 mg Documented By: ELLIE Carvedilol (Carvedilol 6.25 Mg Tablet) 6.25 mg PO BIDWM [facility]; Protocol Last Admin: 12/07/23 08:32 Dose: 6.25 mg Documented By: ELLIE Docusate Sodium (Docusate Sodium 100 Mg Capsule) 100 mg PO DAILY PRN PRN Reason: Constipation Folic Acid (Folic Acid 1 Mg Tablet) 1 mg PO DAILY [facility] Last Admin: 12/07/23 08:32 Dose: 1 mg Documented By: ELLIE Furosemide (Furosemide 40 Mg Tablet) 80 mg PO DAILY [facility]; Protocol Last Admin: 12/07/23 08:31 Dose: 80 mg Documented By: ELLIE Glucose (Glucose Gel 15 Gm Gel..Gram.) 15 gm PO Q15M PRN; Protocol PRN Reason: per Hypoglycemia Standing Ord. Hydromorphone HCl (Hydromorphone Hcl 2 Mg Tablet) 2 mg PO Q4H PRN PRN Reason: moderate pain (scale score 5-6) Last Admin: 12/07/23 12:16 Dose: 2 mg Documented By: ELLIE Hydroxyzine HCl (Hydroxyzine Hcl 50 Mg Tablet) 50 mg PO DAILY PRN PRN Reason: itching Levofloxacin (Levaquin) 750 mg in 150 mls @ 100 mls/hr IV Q24H [facility] Last Infusion: 12/07/23 07:30 Dose: Infused Documented By: ELLIE Dextrose (D10) 250 mls @ 750 mls/hr IV Q15M PRN; Protocol PRN Reason: per Hypoglycemia Standing Ord. Insulin Glargine (Insulin Glargine,Hum.Rec.Anlog 100 Unit/Ml 10 Ml Vial) 14 unit SUBCUT DAILY PRN PRN Reason: elevated blood sugar Insulin Human Lispro (Insulin Lispro 100 Unit/Ml 3 Ml Vial) 0 unit SUBCUT QIDACHS [facility]; Protocol Last Admin: 12/07/23 12:17 Dose: 4 unit Documented By: ELLIE Lactulose (Lactulose 20 Gm/30 Ml Solution) 20 gm PO TID PRN PRN Reason: hepatic encephalopathy Lorazepam (Lorazepam 0.5 Mg Tablet) 0.5 mg PO DAILY PRN PRN Reason: anxiety attack Melatonin (Melatonin 3 Mg Tablet) 6 mg PO BEDTIME PRN PRN Reason: Insomnia Last Admin: 12/06/23 21:29 Dose: 6 mg Documented By: EKATERINA Morphine Sulfate (Morphine Sulfate 4 Mg/Ml Cartridge) 4 mg IVPUSH Q4H PRN; Protocol PRN Reason: Pain, Severe (Pain Scale 7-10) Last Admin: 12/07/23 10:20 Dose: 4 mg Documented By: ELLIE Ondansetron HCl (Ondansetron Hcl 4 Mg/2 Ml Vial) 4 mg IVPUSH Q8H PRN PRN Reason: Nausea and Vomiting Last Admin: 12/06/23 08:21 Dose: 4 mg Documented By: ERNESTO Rifaximin (Rifaximin 550 Mg Tablet) 550 mg PO BID [facility] Last Admin: 12/07/23 08:32 Dose: 550 mg Documented By: ELLIE Sodium Chloride (0.9 % Sodium Chloride Flush 3 Ml Syringe) 3 ml IVFLUSH QSHIFT [facility] Last Admin: 12/07/23 08:34 Dose: 3 ml Documented By: ELLIE Spironolactone (Spironolactone 25 Mg Tablet) 200 mg PO DAILY [facility]; Protocol Last Admin: 12/07/23 08:31 Dose: 200 mg Documented By: ELLIE Thiamine HCl (Thiamine Hcl 100 Mg Tablet) 100 mg PO DAILY [facility] Last Admin: 12/07/23 08:31 Dose: 100 mg Documented By: ELLIE Labs 12/07/23 06:47 12/07/23 06:47 Labs: Laboratory Results - last 24 hr 12/06/23 12/06/23 12/07/23 16:46 20:11 06:47 MCV 84.4 MCH 28.2 MCHC 33.5 RDW 18.7 H Plt Count 264 MPV 8.8 L Absolute Nucleated RBC 0.000 Nucleated RBC % (auto) 0.0 Anion Gap 10 L Estim Creat Clear Calc 150.4 Estimated GFR > 60 POC Glucose 140 H 226 H Random Glucose 224 H Calcium 8.8 D 12/07/23 12/07/23 07:55 11:49 MCV MCH MCHC RDW Plt Count MPV Absolute Nucleated RBC Nucleated RBC % (auto) Anion Gap Estim Creat Clear Calc Estimated GFR POC Glucose 200 H 235 H Random Glucose Calcium Microbiology Microbiology Results: Microbiology 12/05/23 17:47 Blood Culture - Preliminary Blood - Venous No growth after 24 hours. 12/05/23 14:23 Blood Culture - Preliminary Blood - Venous No growth after 24 hours. Assessment and Plan (1) Septic arthritis of knee, right: Status: Acute (2) Swelling of right knee joint: Status: Acute Plan Pt is a 58-year-old male with a PMH significant for?alcoholic cirrhosis, history of PE on Eliquis, insulin dependent type 2 diabetes, portal hypertensive gastropathy, and mood disorder who presents to the ED with?worsening right lower extremity swelling and pain. Patient was previously admitted to the hospital from 11/26 to 12/01 treatment of right knee septic arthritis with 74,000 PMNs and GNR in right knee arthrocentesis. Pt will be admitted to the hospital for treatment and further evaluation of lower extremity swelling concerning for worsening septic arthritis of right knee. Right lower extremity swelling and pain In the setting of right knee septic arthritis S/P right knee arthroscopic lavage on 11/30/2023 U/S venous Doppler negative for DVT Pending blood cultures Continue Levaquin 750 mg IV daily Orthopedic following , A 2nd knee wash done 12/05 ID consult, Continue Levaquin and watch cultures for now Lactic acidosis, resolved acute hypokalemia, replaced, resolved chronic Hyponatremia, mild Sodium 133 Follow BMP History of PE restart Eliquis 12/06 Insulin-dependent type 2 diabetes mellitus Sliding-scale insulin hold Lantus for now Diabetic diet Alcoholic cirrhosis Continue diuretics, rifaximin, thiamine, folate Lactulose p.r.n. Portal hypertensive gastropathy Continue PPI and sucralfate Mood disorder Continue mood stabilizers Full Code DVT Prophylaxis: Pneumatic boots for now, Eliquis on hold for possible OR procedure s Pt will require a hospitalization of at least two nights for treatment of?right lower extremity pain and swelling in the setting of right knee septic arthritis. Patient will be treated with IV antibiotics pending specialist consultation and final blood cultures Quality Stroke Does the patient have a stroke diagnosis?: No VTE Prior VTE?: No VTE Risk Level:: Medical - moderate - high VTE Device Contraindication: Treatment Not Indicated VTE Drug Contraindication: N/A - Med Ordered
[2023-12-07] MEDS: Apixaban 5 MG TABLET PO ×2 (15:15→20:53)
--- NOTE | 2023-12-07 16:17 | MHC.CM.PN ---
Pt not ready for DC, requiring further treatment for septic arthritis of knee. Referral into [facility] for home PT at DC. CM will follow for DC needs.
[2023-12-07 16:51] LABS: Glucose, Whole Blood 183 mg/dL (60-115)
--- NOTE | 2023-12-07 17:10 | W.PM.OPN ---
Operative Note Operative Note Date of Service: 12/06/23 Narrative: Date of Service: 12/06/23 Pre-op diagnosis: right knee sepsis Post-op diagnosis: same Procedure: arthroscopic lavage right knee Implants: none Surgeon: Sudheer Mosher MD Anesthesia: GLMA and local Was an Database Marketing Manager used for this Procedure?: No Estimated blood loss (mL): 25 IV fluids (mL): 500 Pathology: none sent Condition: stable Disposition: PACU Procedure in detail: Patient was brought to the operating room placed supine on the arthroscopic table and prepped and draped in standard sterile fashion. A time-out was called to identify proper site proper procedure proper surgeon. I then made a standard anterolateral stab incision throught the prior arthroscopy incision. There was copisou serosanguinous fluid without stella purulence. The knee was insufflated with water and 30 degree arthroscope was placed. I then made a medial portal, through the previous portal and placed an outflow cannula. I then lavaged for ~ 5 mintues. I then placed a shaver and removed fibrinous tissue in the supra patellar pouch and the anterior interval. I used a cuatery to stop any bleeding. I then removed all instrumentation and closed the portals with nylon. 25 mL of 2% Marcaine with epinephrine was injected into the joint and the surrounding soft tissues. Patient was then placed in sterile dressing extubated brought recovery room stable condition. There were no known complications.
--- NOTE | 2023-12-07 17:13 | P.OP_ITS ---
Operative Note Operative Note Date of Service: 11/30/23 Narrative: Date of Service: 11/30/23 Pre-op diagnosis: RIght septic knee Post-op diagnosis: same Procedure: Arthroscopic lavage right knee Implants: none Surgeon: Sudheer Mosher MD Anesthesia: GETA Was an [employer] used for this Procedure?: No Estimated blood loss (mL): 25 IV fluids (mL): 500 Pathology: other Condition: stable Disposition: PACU Procedure in detail: Patient was brought to the operating room placed supine on the arthroscopic table and prepped and draped in standard sterile fashion. A time-out was called to identify proper site proper procedure proper surgeon and IV antibiotics per weight were administered. I began by insufflating the tourniquet to 300 mm Hg. Then made a standard anterolateral stab incision. The knee was insufflated with water and 30 degree arthroscope was placed. There was copious purulent fluid. I made a medial portal under direct visualization. I then used a shave to debride fibrinous material in the anterior interval and the suprapatellar pouch. I then made an lateral parapatellar portal and lavaged for 5 minutes. I then removed all instrumentation and closed the portals with nylon. A #7 neal drain was left in and sutured in. Patient was then placed in sterile dressing extubated brought recovery room stable condition. There were no known complications.
--- NOTE | 2023-12-07 17:59 | HO.POSTANES ---
Post Anesthesia Evaluation Post Anesthesia Evaluation Date of Service: 12/07/23 Vital Signs: Vital Signs Temp Pulse Resp BP Pulse Ox O2 Del Method 12/07/23 16:49 104 H 137/78 12/07/23 11:27 97.2 F 104 H 18 137/78 96 Room Air 12/07/23 10:54 98 139/72 12/07/23 08:32 98 139/72 12/07/23 08:31 139/72 12/07/23 08:31 139/72 12/07/23 08:00 97.2 F 98 18 139/72 98 Room Air Anesthesia: General LMA Mental Status: Awake Pain Control: Satisfactory Nausea/Vomiting: None Hydration: Adequate Anesthesia-Related Issues: No Anes. Related Issues
[2023-12-07] MEDS: levoFLOXacin/D5W 750 MG/150 ML PIGGYBACK 100 MG IV (18:21)
[2023-12-07 20:20] LABS: Glucose, Whole Blood 185 mg/dL (60-115)
--- NOTE | 2023-12-07 22:34 | W.PM.IDCN ---
History of Present Illness Data of Consult Service Date: 12/07/23 Requesting physician: Kalyan Moore Primary Care Provider: Martin Avilez MD HPI Reason for consult: swollen right knee He was in hospital 11/28-12/01 for swollen knee He had no fever Culture serratia only He was discharged po Levaquin He comes in again due to pain. Review of Systems Review of Systems: Yes all other systems are reviewed and are negative [facility] Past Medical History Medical History Pulmonary nodule 1 cm or greater in diameter Pleuritic chest pain Pulmonary embolism, bilateral Cirrhosis of liver Diabetes Alcohol use disorder, moderate, dependence Recurrent left pleural effusion Pleural effusion Pericardial effusion Tachycardia Dyspnea Hydropneumothorax Pleural effusion on right Decompensation of cirrhosis of liver Cirrhosis GERD (gastroesophageal reflux disease) Esophageal varices Chronic abdominal pain Gout Peripheral neuropathy Alcoholism Elevated LFTs Family History Family History Mother Cancer Sister Cancer Family history: reviewed and not pertinent Surgical History Surgical History History of abdominal paracentesis Hx of esophagogastroduodenoscopy History of thoracentesis H/O colonoscopy H/O cervical spine surgery H/O hemicolectomy Social History Social History Household Members: Spouse Household Members Other:: 1 Housing: House Are you a primary transitional care manager to a significant other at home: No Do you presently have visiting nurse or other home services: No Alcohol intake: current Alcohol intake frequency: 0-2 drinks per day Alcohol type: hard liquor Comment: counts correct Patient Tobacco Use Status: Former Tobacco user Tobacco use type: Cigarette Years Smoked: 35 e-Cigarette/Vaping Use: Never Used Second Hand Smoke Exposure: No Substance Use Type: Marijuana Advance Directives Date on File: 11/27/22 service: No Current occupational status: unemployed Meds Allergies Allergy/AdvReac Type Severity Reaction Status Date / Time No Known Drug Allergies Allergy Mild NONE Verified 12/05/23 14:05 [NO KNOWN DRUG ALLERGIES] Active Medications: Current Medications Acamprosate (Acamprosate Calcium 333 Mg Tablet.Dr) 333 mg PO Q8H PRN PRN Reason: ALCOHOL ABSTINENCE Acetaminophen (Acetaminophen 325 Mg Tablet) 650 mg PO Q6H PRN PRN Reason: Pain, Mild (Pain Scale 1-3) Albuterol Sulfate (Albuterol Sulfate 90 Mcg 8 Gm Inhaler) 2 puff INHALE Q6H PRN PRN Reason: Shortness Of Breath Apixaban (Apixaban 5 Mg Tablet) 5 mg PO BID [facility] Last Admin: 12/07/23 20:53 Dose: 5 mg Benzonatate (Benzonatate 100 Mg Capsule) 100 mg PO TID PRN PRN Reason: Cough Bupropion HCl (Bupropion Hcl Xl 300 Mg Tab.Er.24h) 300 mg PO DAILY [facility] Last Admin: 12/07/23 08:32 Dose: 300 mg Carvedilol (Carvedilol 6.25 Mg Tablet) 6.25 mg PO BIDWM [facility]; Protocol Last Admin: 12/07/23 16:49 Dose: 6.25 mg Docusate Sodium (Docusate Sodium 100 Mg Capsule) 100 mg PO DAILY PRN PRN Reason: Constipation Folic Acid (Folic Acid 1 Mg Tablet) 1 mg PO DAILY [facility] Last Admin: 12/07/23 08:32 Dose: 1 mg Furosemide (Furosemide 40 Mg Tablet) 80 mg PO DAILY [facility]; Protocol Last Admin: 12/07/23 08:31 Dose: 80 mg Glucose (Glucose Gel 15 Gm Gel..Gram.) 15 gm PO Q15M PRN; Protocol PRN Reason: per Hypoglycemia Standing Ord. Hydromorphone HCl (Hydromorphone Hcl 2 Mg Tablet) 2 mg PO Q4H PRN PRN Reason: moderate pain (scale score 5-6) Last Admin: 12/07/23 21:53 Dose: 2 mg Hydroxyzine HCl (Hydroxyzine Hcl 50 Mg Tablet) 50 mg PO DAILY PRN PRN Reason: itching Levofloxacin (Levaquin) 750 mg in 150 mls @ 100 mls/hr IV Q24H [facility] Last Infusion: 12/07/23 19:51 Dose: Infused Dextrose (D10) 250 mls @ 750 mls/hr IV Q15M PRN; Protocol PRN Reason: per Hypoglycemia Standing Ord. Insulin Glargine (Insulin Glargine,Hum.Rec.Anlog 100 Unit/Ml 10 Ml Vial) 14 unit SUBCUT DAILY PRN PRN Reason: elevated blood sugar Insulin Human Lispro (Insulin Lispro 100 Unit/Ml 3 Ml Vial) 0 unit SUBCUT QIDACHS [facility]; Protocol Last Admin: 12/07/23 20:54 Dose: 2 unit Lactulose (Lactulose 20 Gm/30 Ml Solution) 20 gm PO TID PRN PRN Reason: hepatic encephalopathy Lorazepam (Lorazepam 0.5 Mg Tablet) 0.5 mg PO DAILY PRN PRN Reason: anxiety attack Melatonin (Melatonin 3 Mg Tablet) 6 mg PO BEDTIME PRN PRN Reason: Insomnia Last Admin: 12/06/23 21:29 Dose: 6 mg Morphine Sulfate (Morphine Sulfate 4 Mg/Ml Cartridge) 4 mg IVPUSH Q4H PRN; Protocol PRN Reason: Pain, Severe (Pain Scale 7-10) Last Admin: 12/07/23 16:50 Dose: 4 mg Ondansetron HCl (Ondansetron Hcl 4 Mg/2 Ml Vial) 4 mg IVPUSH Q8H PRN PRN Reason: Nausea and Vomiting Last Admin: 12/06/23 08:21 Dose: 4 mg Rifaximin (Rifaximin 550 Mg Tablet) 550 mg PO BID [facility] Last Admin: 12/07/23 20:53 Dose: 550 mg Sodium Chloride (0.9 % Sodium Chloride Flush 3 Ml Syringe) [address] [facility] Last Admin: 12/07/23 20:55 Dose: 3 ml Spironolactone (Spironolactone 25 Mg Tablet) 200 mg PO DAILY [facility]; Protocol Last Admin: 12/07/23 08:31 Dose: 200 mg Thiamine HCl (Thiamine Hcl 100 Mg Tablet) 100 mg PO DAILY [facility] Last Admin: 12/07/23 08:31 Dose: 100 mg Home Medications ?Medication ?Instructions ?Recorded ?Confirmed ?Last Taken ?Type bupropion HCl 300 mg 24 hr tablet, 300 mg PO DAILY 06/10/21 12/05/23 11/26/23 History extended release folic acid 1 mg tablet 1 mg PO DAILY 06/10/21 12/05/23 11/26/23 History thiamine HCl (vitamin B1) 100 mg 100 mg PO DAILY 06/10/21 12/05/23 11/26/23 History tablet albuterol sulfate 90 mcg/actuation 2 puff inhalation Q6H PRN 01/26/22 12/05/23 04/09/23 History aerosol inhaler (ProAir HFA) Shortness Of Breath hydroxyzine pamoate 25 mg capsule 50 mg PO DAILY PRN itching 01/26/22 12/05/23 04/08/23 History lorazepam 0.5 mg tablet 0.5 mg PO DAILY PRN anxiety attack 07/13/22 12/05/23 10/27/22 History paroxetine HCl 20 mg tablet 20 mg PO DAILY 07/13/22 12/05/23 11/26/23 History insulin glargine 100 unit/mL (3 20 unit subcut DAILY PRN elevated 11/27/22 12/05/23 04/08/23 History mL) subcutaneous pen blood sugar insulin lispro 100 unit/mL 1 sliding scale dose subcut QIDACHS 03/03/23 12/05/23 11/26/23 History subcutaneous pen oxycodone 5 mg capsule 5 - 10 mg PO DAILY PRN Pain 04/09/23 12/05/23 Unknown History acamprosate 333 mg tablet,delayed 333 mg PO Q8H PRN ALCOHOL 11/27/23 12/05/23 Unknown History release ABSTINENCE carvedilol 6.25 mg tablet 6.25 mg PO BIDWM 11/27/23 12/05/23 11/26/23 History lactulose 10 gram/15 mL oral 30 ml PO TID PRN hepatic 11/27/23 12/05/23 Unknown History solution encephalopathy omeprazole 40 mg capsule,delayed 40 mg PO DAILY@0630 11/27/23 12/05/23 11/26/23 History release Physical Exam Vital Signs: Vital Signs: Last Vital Signs Temp 97.4 F 12/07/23 19:30 Pulse 102 H 12/07/23 19:30 Resp 18 12/07/23 19:30 BP 113/77 12/07/23 19:30 Pulse Ox 96 12/07/23 19:30 O2 Del Method Room Air 12/07/23 19:30 O2 Flow Rate 6 12/06/23 17:54 BMI result Body Mass Index 29.1 Const: General: cooperative HEENT: Head: Yes normal to inspection Face and sinus: Yes normal facial exam Mouth: Normal oral and palatal mucosa present Teeth and gingiva: dentition normal Eyes: General: appearance normal, both eyes and all related structures Pupils: Equal, round and reactive pupils present Resp: Effort & Inspection: normal respiratory effort Cardio: Rate: regular rate Rhythm: regular rhythm GI: Palpation (GI): Soft to palpation and nontender : General: Yes no CVA tenderness Back/Spine/Pelvis: Back: no CVA tenderness Skin: General skin exam: no rashes or lesions noted Neuro: General: moves all extremities Cranial nerves: Yes Equal, round and reactive pupils present Extrem: Other: right knee swelling,no cellulitis Psych: Appearance: grossly normal Results Labs 12/07/23 06:47 12/07/23 06:47 Labs: Short CBC 12/07/23 Range/Units 06:47 WBC 8.4 (4.8-10.8) X10*3/uL Hgb 9.2 L (14.0-18.0) g/dl Hct 27.5 L (42.0-52.0) % Plt Count 264 (160-400) X10*3/uL BMP 12/07/23 06:47 Sodium 133 L Potassium 3.9 D Chloride 99 Carbon Dioxide 28 BUN 8 L Creatinine 0.76 Calcium 8.8 D Microbiology Microbiology Results: Microbiology 12/05/23 17:47 Blood - Venous Blood Culture - Preliminary No growth after 48 hours. 12/05/23 14:23 Blood - Venous Blood Culture - Preliminary No growth after 48 hours. Assessment and Plan (1) Swelling of right knee joint: Status: Acute Plan Maybe some arthropathy due to liver failure. Serratia may be contaminant but po Levaquin 14 d Follow Orthopedics
[2023-12-08] VITALS (7 sets, daily range): BP systolic 114–128; BP diastolic 72–80; PULSE 81–91; RESP 17–18; TEMP 36.2; O2SAT 95–97
[2023-12-08] MEDS: Morphine Sulfate 4 MG/ML CARTRIDGE IVPUSH ×4 (00:26→12:51)
[2023-12-08 07:30] LABS: Glucose, Whole Blood 126 mg/dL (60-115)
[2023-12-08] MEDS: Spironolactone 25 MG TABLET 200 MG PO (07:35)
[2023-12-08] MEDS: buPROPion HCl XL 300 MG TAB.ER.24H PO (07:35)
[2023-12-08] MEDS: rifAXIMin 550 MG TABLET PO (07:35)
[2023-12-08] MEDS: Furosemide 40 MG TABLET 80 MG PO (07:35)
[2023-12-08] MEDS: Apixaban 5 MG TABLET PO (07:36)
[2023-12-08] MEDS: Folic Acid 1 MG TABLET PO (07:36)
[2023-12-08] MEDS: carvediloL 6.25 MG TABLET PO (07:36)
[2023-12-08] MEDS: Thiamine HCL 100 MG TABLET PO (07:36)
[2023-12-08] MEDS: 0.9 % Sodium Chloride Flush 3 ML SYRINGE IVFLUSH (07:37)
[2023-12-08 07:54] LABS: Hematocrit 28.9 % (42.0-52.0); Hemoglobin 9.3 g/dl (14.0-18.0); Mean Corpuscular HGB Conc 32.2 g/dl (31.0-36.0); Mean Platelet Volume 8.8 fL (9.4-12.4); Platelet Count 298 X10*3/uL (160-400); Red Blood Count 3.32 X10*6/uL (4.60-5.80); Red Cell Distribution Width 18.9 % (11.0-16.0); White Blood Count 10.3 X10*3/uL (4.8-10.8)
[2023-12-08 08:02] LABS: Anion Gap 16 (12-20); Blood Urea Nitrogen 13 mg/dL (9-16); C Reactive Protein 6.32 mg/dL (< or = 0.50); Calcium 8.5 mg/dL (8.4-10.2); Carbon Dioxide 27 mmol/L (22-29); Chloride 95 mmol/L (96-108); Creatinine Clr Calc Pharmacy 137.7; Estimated Glomerular Filt Rate > 60; Glucose Random 141 mg/dL (60-115); Potassium 3.4 mmol/L (3.3-5.1); Sodium 135 mmol/L (135-145)
[2023-12-08 08:53] LABS: Erythrocyte Sedimentation Rate 72 MM/HR (0-15)
[2023-12-08 11:15] LABS: Glucose, Whole Blood 166 mg/dL (60-115)
--- NOTE | 2023-12-08 11:29 | W.MHC.F2F ---
Service Date Service Date: 12/08/23 Encounter Date of encounter: 12/08/23 Reasons for Services Signs and symptoms assessed: R knee postop/swelling Reason for physical therapy: home safety and mobility, therapeutic exercises, restore joint function, gait/transfer training, assess need for DME, ADL training and energy conservation MD Overseeing Care: Martin Avilez Homebound: Leaving the home is medically contraindicated at this time without the asist of a device and/or another person due th the listed conditions above and below. Reason homebound: unsteady gait / fall risk and pain with ambulation Homebound supporting statement: Please attach PT evaluation from 12/07/23 Certification: Based on the above findings, I certify that this patient is confined to the home and needs intermittent jail care, physical therapy and/or speech therapy, or continues to need occupational therapy. The patient is under my care, and I have initiated the establishment of the plan of care. The patient will be followed by a physician who will periodically review the plan of care. Time Spent With Patient Time: Total time managing care of this patient today ____ minutes.
--- NOTE | 2023-12-08 11:30 | P.DS_ITS ---
DS: Providers Provider Date of Service: 12/08/23 Date of admission: 12/05/23 23:09 Date of discharge: 12/08/23 Primary care physician: Martin Avilez MD Consults: 12/05/23 23:13 Consult to Orthopedics Routine Consulting Provider: [facility] Reason for consultation: RLE, s/p washout on 11/29 for septic knee 12/06/23 07:32 Consult to Infectious Diseases Routine Consulting Provider: [facility] Reason for consultation: Worsening septic arthritis DS: Diagnosis Discharge Diagnosis (1) Septic arthritis of knee, right: Status: Acute DS: Summary Hospital Course Hospital Course: From the history and physical by the admitting hospitalist, ABBEY Corcoran, 12/05/23: Pt is a 58-year-old male with a PMH significant for?alcoholic cirrhosis, history of PE on Eliquis, insulin dependent type 2 diabetes, portal hypertensive gastropathy, and mood disorder who presents to the ED with?worsening right lower extremity swelling and pain. Patient was previously admitted to the hospital from 11/26 to 12/01 treatment of right knee septic arthritis with 74,000 PMNs and GNR in right knee arthrocentesis. Knee aspirate cultures grew Serratia marces cens and was initially treated with ceftriaxone. Underwent washout on 11/30/2023 and seen by infectious dsease who recommended 6 weeks of p.o. Levaquin to be completed 01/11/2024. Patient reports after discharge pain and swelling in left extremity continue to worsen. Swelling began in the knee and extended proximally and distally until it covered the entire extremity. Patient reports limited range of motion secondary to pain. Denies fever, chills. No nausea, vomiting, diarrhea, or abdominal pain. No chest pain/pressure, palpitations. Denies shortness of breath or difficulty breathing. In the ED pt was tachycardic up to 99, vitals otherwise WNL. Labs were significant for stable normocytic anemia of 9.3/28.2, sodium 131, potassium 3.1, chloride 93, lactic acid 2.3 with repeat 2.2 and then 1.9, bilirubin 4.0, AST 61, alk-phos 333, and albumin 2.9. Venous duplex of right lower extremity negative for DVT. Patient was treated with vancomycin, morphine, ondansetron, and IVF. Pt will be admitted to the hospital for treatment further evaluation of lower extremity swelling concerning for worsening septic arthritis of right knee. He was admitted to the medical-surgical unit with consultations from Infectious Disease and Orthopedics. He was treated with IV levofloxacin. On 12/06/23, Dr Sudheer Mosher performed a repeat arthroscopic lavage with return of serosanguinous fluid without stella purulence. Blood cultures were negative. He was seen by PT and home services were arranged. He was discharged home with 14 days of PO levofloxacin 750 mg daily and will need Orthopedics follow-up in 2 weeks. Time Attestation Discharge Coordination Time (in mins): 40 Quality: Safe Use of Opioids Does Pt have an Active Cancer Diagnosis on the Problem List?: No Quality: Stroke Does the patient have a stroke diagnosis?: No Physical Exam Vital Signs: Vital Signs: Last Vital Signs Temp 97.1 F 12/08/23 07:23 Pulse 81 12/08/23 07:36 Resp 18 12/08/23 07:23 BP 123/73 12/08/23 07:36 Pulse Ox 97 12/08/23 07:23 O2 Del Method Room Air 12/08/23 07:23 O2 Flow Rate 6 12/06/23 17:54 BMI result Body Mass Index 29.1 Gen: in no acute distress HEENT: sclera anicteric, moist mucus membranes Neck: supple Lungs: clear to auscultation bilaterally Heart: regular rate and rhythm, no murmurs Abd: soft, non-tender, non-distended Ext: no edema, R knee swollen without erythema, incisions with clean sutures Skin: warm/well-perfused Neuro: alert and oriented x3, no focal findings Psych: appropriate affect DS: Data Data Completed and Pending Completed studies during hospitalization [Text1]: Laboratory Results WBC 10.3 X10*3/uL (4.8-10.8) 12/08/23 05:47 RBC 3.32 X10*6/uL (4.60-5.80) L 12/08/23 05:47 Hgb 9.3 g/dl (14.0-18.0) L 12/08/23 05:47 Hct 28.9 % (42.0-52.0) L 12/08/23 05:47 MCV 87.0 fL (80.0-98.0) 12/08/23 05:47 MCH 28.0 pg (27.0-33.0) 12/08/23 05:47 MCHC 32.2 g/dl (31.0-36.0) 12/08/23 05:47 RDW 18.9 % (11.0-16.0) H 12/08/23 05:47 Plt Count 298 X10*3/uL (160-400) 12/08/23 05:47 MPV 8.8 fL (9.4-12.4) L 12/08/23 05:47 Immature Gran % (Auto) 1.2 % (0.0-0.4) H 12/05/23 14:23 Neut % (Auto) 69.3 % (45-73) 12/05/23 14:23 Lymph % (Auto) 12.0 % (20-40) L 12/05/23 14:23 [place] % (Auto) 15.5 % (2-11) H 12/05/23 14:23 Eos % (Auto) 1.0 % (0-4) 12/05/23 14:23 Baso % (Auto) 1.0 % (0-2) 12/05/23 14:23 Lymph # (Auto) 1.0 X10*3/uL (1.2-4.9) L 12/05/23 14:23 [place] # (Auto) 1.3 X10*3/uL (0.1-1.2) H 12/05/23 14:23 Eos # (Auto) 0.1 X10*3/uL (0.0-0.4) 12/05/23 14:23 Baso # (Auto) 0.1 X10*3/uL (0.0-0.2) 12/05/23 14:23 Abs Immat Gran (auto) 0.10 X10*3/uL (0.00-0.03) H 12/05/23 14:23 Absolute Neuts (auto) 5.7 x10*3/uL (2.0-8.3) 12/05/23 14:23 Absolute Nucleated RBC 0.000 X10*3/uL (0.0-0.012) 12/08/23 05:47 Nucleated RBC % (auto) 0.0 /100WBC (0.0-0.2) 12/08/23 05:47 ESR 72 MM/HR (0-15) H 12/08/23 05:47 PT 20.5 SEC (11.1-13.3) H 12/05/23 14:23 INR 1.7 (0.9-1.1) H 12/05/23 14:23 Sodium 135 mmol/L (135-145) 12/08/23 05:47 Potassium 3.4 mmol/L (3.3-5.1) 12/08/23 05:47 Chloride 95 mmol/L (96-108) L 12/08/23 05:47 Carbon Dioxide 27 mmol/L (22-29) 12/08/23 05:47 Anion Gap 16 (12-20) 12/08/23 05:47 BUN 13 mg/dL (9-16) 12/08/23 05:47 Creatinine 0.83 mg/dL (0.5-1.4) 12/08/23 05:47 Estim Creat Clear Calc 137.7 12/08/23 05:47 Estimated GFR > 60 12/08/23 05:47 POC Glucose 166 mg/dL (60-115) H 12/08/23 11:02 Random Glucose 141 mg/dL (60-115) H 12/08/23 05:47 Lactic Acid 2.3 mmol/L (0.5-2.0) H* 12/05/23 14:23 Lactic Acid F/U @ 2Hr 2.3 mmol/L (0.5-2.0) H* 12/05/23 17:47 Lactic Acid F/U @ 4Hr 1.9 mmol/L (0.5-2.0) 12/05/23 20:06 Calcium 8.5 mg/dL (8.4-10.2) 12/08/23 05:47 Total Bilirubin 4.0 mg/dL (0.0-1.0) H 12/05/23 14:23 AST 61 U/L (5-37) H 12/05/23 14:23 ALT 26 U/L (0-40) 12/05/23 14:23 Alkaline Phosphatase 333 U/L (39-117) H 12/05/23 14:23 C-Reactive Protein 6.32 mg/dL (< or = 0.50) H 12/08/23 05:47 Total Protein 7.9 g/dL (6.5-8.0) 12/05/23 14:23 Albumin 2.9 g/dL (3.5-5.0) L 12/05/23 14:23 Impressions Venous Duplex 12/05/23 14:49 IMPRESSION: No DVT demonstrated in the right lower extremity. Labs on day of discharge: Laboratory Results - last 24 hr 12/07/23 12/07/23 12/07/23 11:49 16:42 20:14 WBC RBC Hgb Hct MCV MCH MCHC RDW Plt Count MPV Absolute Nucleated RBC Nucleated RBC % (auto) ESR Sodium Potassium Chloride Carbon Dioxide Anion Gap BUN Creatinine Estim Creat Clear Calc Estimated GFR POC Glucose 235 H 183 H 185 H Random Glucose Calcium C-Reactive Protein 12/08/23 12/08/23 12/08/23 05:47 07:21 11:02 WBC 10.3 RBC 3.32 L Hgb 9.3 L Hct 28.9 L MCV 87.0 MCH 28.0 MCHC 32.2 RDW 18.9 H Plt Count 298 MPV 8.8 L Absolute Nucleated RBC 0.000 Nucleated RBC % (auto) 0.0 ESR 72 H Sodium 135 Potassium 3.4 Chloride 95 L Carbon Dioxide 27 Anion Gap 16 BUN 13 Creatinine 0.83 Estim Creat Clear Calc 137.7 Estimated GFR > 60 POC Glucose 126 H 166 H Random Glucose 141 H Calcium 8.5 C-Reactive Protein 6.32 H Preliminary micro results at discharge 12/05/23 17:47 Blood Culture - Preliminary Blood - Venous No growth after 48 hours. 12/05/23 14:23 Blood Culture - Preliminary Blood - Venous No growth after 48 hours. Discharge Plan Discharge Anticipated Discharge Date/Time: 12/08/23 11:22 Patient Disposition: Home Health Service Discharge Diagnosis: R knee septic arthritis Referrals: Sudheer Mosher MD [Physician] - 2 Weeks Martin Avilez MD [Primary Care Provider] - 1 Week Discharge Medications: New levofloxacin 750 mg Tablet 750 mg PO Q24H Qty: 14 0RF Continued spironolactone 100 mg tablet 200 mg PO DAILY 90 Days Qty: 180 0RF Hold Instructions: Check with nephrology before restarting furosemide 40 mg tablet 80 mg PO DAILY 90 Days Qty: 180 0RF Hold Instructions: Check with nephrology before restarting Eliquis 5 mg tablet 5 mg PO BID Qty: 56 2RF Xifaxan 550 mg tablet 550 mg PO BID Qty: 56 0RF paroxetine HCl 20 mg tablet 20 mg PO DAILY acamprosate 333 mg tablet,delayed release (DR/EC) 333 mg PO Q8H PRN (Reason: ALCOHOL ABSTINENCE) carvedilol 6.25 mg tablet 6.25 mg PO BIDWM Rx Instructions: must administer with a meal/food omeprazole 40 mg capsule,delayed release(DR/EC) 40 mg PO DAILY@0630 lactulose 10 gram/15 mL solution 30 ml PO TID PRN (Reason: hepatic encephalopathy) (DME) walker Misc See Rx Instructions .Route Qty: 1 0RF Rx Instructions: As directed hydromorphone [Dilaudid] 2 mg tablet 2 mg PO Q4H PRN (Reason: severe pain) Qty: 20 0RF Rx Instructions: Partial Fill upon patient request. ondansetron 4 mg tablet,disintegrating 4 mg PO Q8H PRN (Reason: nausea and vomiting) Qty: 14 0RF [place] FreeStyle Lite Strips Strip See Rx Instructions .ROUTE .MEDSUPPLY Qty: 100 2RF Rx Instructions: QID (DME) lancets Misc See Rx Instructions .ROUTE .MEDSUPPLY Qty: 200 2RF Rx Instructions: 4 times daily ([facility] blood-glucose meter [FreeStyle Lite Meter] Kit See Rx Instructions .ROUTE .MEDSUPPLY Qty: 1 0RF Rx Instructions: As directed ([facility] pen needle, diabetic [Pen Needle] 31 gauge x 5/16 needle See Rx Instructions .ROUTE .MEDSUPPLY Qty: 1200 0RF Rx Instructions: As directed insulin glargine 100 unit/mL (3 mL) insulin pen 20 unit subcut DAILY PRN (Reason: elevated blood sugar) insulin lispro 100 unit/mL insulin pen 1 sliding scale dose subcut QIDACHS Protocol: Insulin Correction Scale Less than or equal to 110 ---- Give (units): 0 111 to 150 Give (units): 0 151 to 200 Give (units): 2 201 to 250 Give (units): 4 251 to 300 Give (units): 6 301 to 350 Give (units): 8 Greater than 350 Give (units): 10 Call MD if Blood Glucose > : 350 hydroxyzine pamoate 25 mg capsule 50 mg PO DAILY PRN (Reason: itching) Rx Instructions: ITCHING/ANXIETY albuterol sulfate [ProAir HFA] 90 mcg/actuation HFA aerosol inhaler 2 puff inhalation Q6H PRN (Reason: Shortness Of Breath) folic acid 1 mg tablet 1 mg PO DAILY bupropion HCl 300 mg tablet extended release 24 hr 300 mg PO DAILY thiamine HCl (vitamin B1) 100 mg tablet 100 mg PO DAILY lorazepam 0.5 mg tablet 0.5 mg PO DAILY PRN (Reason: anxiety attack) Discontinued oxycodone 5 mg capsule 5 - 10 mg PO DAILY PRN (Reason: Pain) levofloxacin 500 mg tablet 500 mg PO DAILY Qty: 28 0RF Rx Instructions: End date 12-12-23 Discharge Orders: Discharge Order (Routine); Ordered 12/08/23 Ordered By: Kostas Mcgowan Diet: Advance to usual diet Activity on Discharge: As tolerated Stand Alone Forms: Patient Portal Discharge page Print Language: Martiniquais Care Plan Goals: cure of infection safe ambulation Health Concerns: R knee septic arthritis Plan of Treatment: take levofloxacin 750 mg daily for 14 days follow up with [facility] Orthopedics in 1-2 weeks home PT for mild-moderate pain, take acetaminophen [Tylenol] not to exceed 2000 mg/d for severe pain, take hydromorphone 2 mg every 4 hours as needed avoid alcohol Please follow up with your primary care doctor within 1 week. Return to the hospital if you experience recurrent or worsening symptoms. Assessment: See Discharge Summary.
[2023-12-08] MEDS: Insulin Lispro 100 UNIT/ML 3 ML VIAL SUBCUT (11:41)
== END 2023-12-08 13:19 | disposition home health service (06) | DRG 549 ==
LOC: HO.ED 16:55 → HO.EDOVER 23:18 → HO.IMC 12-06 19:35 → HO.S3 12-07 17:49
PROVIDERS: Orthopaedic Surgery; Registered Nurse Emergency; Student in an Organized Health Care Education/Training Program; Admitting Provider Student in an Organized Health Care Education/Training Program; Emergency Provider Internal Medicine; PCP Internal Medicine; Visit Provider Family Medicine
PROC: 3E1U48Z Irrigation of Joints using Irrigating Substance, Percutaneous Endoscopic Approach (ICD-10-PCS; CPT 29870; principal; 2023-12-06 16:10)
DX: M00.9 Pyogenic arthritis, unspecified (principal); E87.1 Hypo-osmolality and hyponatremia; K76.6 Portal hypertension; F11.20 Opioid dependence, uncomplicated; E11.42 Type 2 diabetes mellitus with diabetic polyneuropathy; F39 Unspecified mood [affective] disorder; D64.9 Anemia, unspecified; K70.30 Alcoholic cirrhosis of liver without ascites; E87.6 Hypokalemia; K31.89 Other diseases of stomach and duodenum; Z86.711 Personal history of pulmonary embolism; Z87.891 Personal history of nicotine dependence; Z79.4 Long term (current) use of insulin; Z79.899 Other long term (current) drug therapy
CPT/HCPCS: 36415; 80048; 80053; 82947; 83605; 85025; 85027; 85610; 85652; 86140; 87040; 93971; 97162; 99285; J1100; J1956; J2270; J2405; J2704; J2795; J3010; J3370; J3480

== ENCOUNTER → 2023-12-05 23:09 | Outpatient (BNV) | payer OTHER, SELFPAY | PROVIDERS: Admitting Provider Student in an Organized Health Care Education/Training Program; Emergency Provider Internal Medicine; PCP Internal Medicine; Visit Provider Student in an Organized Health Care Education/Training Program | DX: M00.9 Pyogenic arthritis, unspecified (principal); M25.461 Effusion, right knee | CPT/HCPCS: 99223; 99232; 99239; G0180 ==

== ENCOUNTER → 2023-12-05 23:09 | Outpatient (BNV) | payer OTHER, SELFPAY | PROVIDERS: Admitting Provider Student in an Organized Health Care Education/Training Program; Emergency Provider Internal Medicine; PCP Internal Medicine; Visit Provider Internal Medicine | DX: M25.461 Effusion, right knee (principal) | CPT/HCPCS: 99222 ==

== ENCOUNTER → 2023-12-05 23:09 | Outpatient (BNV) | payer OTHER, SELFPAY | PROVIDERS: Admitting Provider Student in an Organized Health Care Education/Training Program; Emergency Provider Internal Medicine; PCP Internal Medicine; Visit Provider Physician Assistant | DX: M00.9 Pyogenic arthritis, unspecified (principal) | CPT/HCPCS: 29871; 99024 ==

== ENCOUNTER 2023-12-13 13:42 | Outpatient (AMB) | payer OTHER, SELFPAY ==
--- NOTE | 2023-12-13 13:48 | MHC.OFFVIS ---
Intake Visit Reasons: PO RT knee arthroscopic lavage 11/30/23 NE Intake Note: Akash is a 58 year old male who presents today for a post op appointment s/p RT knee arthroscopic lavage 11/30/23 NE. Patient reports having sharp and sometimes throbbing pain. Allergies No Known Drug Allergies [NO KNOWN DRUG ALLERGIES] Allergy (Mild, Verified 12/13/23 13:50) NONE HPI HPI PO RT knee arthroscopic lavage 11/30/23 NE: Details: 58-year-old male who presents in the office today 1 week status post right knee arthroscopic lavage, which was performed on 12/06/[address] Mosher. Patient also underwent a right knee arthroscopic lavage on 11/30/[address] Mosher. While in the office today the patient reports having a sharp pain with occasional throbbing. PFSH Medical History Pulmonary nodule 1 cm or greater in diameter Pleuritic chest pain Pulmonary embolism, bilateral Cirrhosis of liver Diabetes Alcohol use disorder, moderate, dependence Recurrent left pleural effusion Pleural effusion Pericardial effusion Tachycardia Dyspnea Hydropneumothorax Pleural effusion on right Decompensation of cirrhosis of liver Cirrhosis GERD (gastroesophageal reflux disease) Esophageal varices Chronic abdominal pain Gout Peripheral neuropathy Alcoholism Elevated LFTs Surgical History History of abdominal paracentesis Hx of esophagogastroduodenoscopy History of thoracentesis H/O colonoscopy H/O cervical spine surgery H/O hemicolectomy Family History Mother Cancer Sister Cancer Social History Household Members: Spouse Household Members Other:: 1 Housing: House Are you a primary before and after school daycare worker to a significant other at home: No Do you presently have visiting nurse or other home services: No Alcohol intake: current Alcohol intake frequency: 0-2 drinks per day Alcohol type: hard liquor Comment: counts correct Patient Tobacco Use Status: Former Tobacco user Tobacco use type: Cigarette Years Smoked: 35 e-Cigarette/Vaping Use: Never Used Second Hand Smoke Exposure: No Substance Use Type: Marijuana Advance Directives Date on File: 11/27/22 service: No Current occupational status: unemployed Review of Systems Const All systems reviewed & are unremarkable except as noted in HPI and below Physical Exam Const General: cooperative, healthy appearing and no acute distress Resp Effort & Inspection: normal respiratory effort and able to speak in complete sentences Cardio Rate: regular rate Peripheral pulses: Peripheral pulses 2+ throughout GI Palpation (GI): Soft to palpation Skin Lesions: no lesions Rashes: no rashes Extrem Other: Right knee: Incision site is clean, dry, and intact. Sutures intact. No surrounding erythema or drainage. No signs of infection. Moderate effusion. Edema that extends down the right lower extremity into the right foot. +2 pitting edema. Slightly able to flex and extend at the knee but is limited due to pain. NVI. Assessment & Plan Assessment & Plan (1) S/P right knee arthroscopy: Comment: Right knee arthroscopic lavage: 11/30/2023 and 12/06/[address] Mosher Code(s): Z98.890 - Other specified postprocedural states Category: Surgical Plan Mr. Barboza is a 58-year-old male who presents in the office today 1 week status post right knee arthroscopic lavage, which was performed on 12/06/[address] Mosher. Patient also underwent a right knee arthroscopic lavage on 11/30/[address] Mosher. While in the office today the patient reports having a sharp pain with occasional throbbing. Suture were removed, and steri-stripes were applied. Dr. Mosher was available to see the patient with me while in the office today and a collaborative treatment plan was made. The patient will continue to take the oral antibiotics until his course is complete. He requested a refill of his pain medication, which is hydromorphone 2 mg PO Q4H PRN. This was refilled as hydromorphone 2 mg PO Q6H PRN with 20 tablets. This is a one-time refill. Patient was re-educated of increased signs of infections and symptoms. Follow-up will be in one week for a wound check, or sooner if needed. Medications: Changed From hydromorphone (Dilaudid) Partial Fill upon patient request. 2 mg PO Q4H PRN 20 tabs 0RF severe pain To hydromorphone (Dilaudid) Partial Fill upon patient request. 2 mg PO Q6H PRN 20 tabs 0RF severe pain 7 days Patient Instructions: Scribed by Vero Singh medical imaging tech, for Le Carpio PA-C on 12/13/2023 at 1:43 pm, EST. Coding Level of Care Code Global (95372) Diagnoses S/P right knee arthroscopy Z98.890
== END 2023-12-13 14:46 | disposition home or self-care (01) ==
PROVIDERS: PCP Internal Medicine; Visit Provider Physician Assistant
DX: Z98.890 Other specified postprocedural states (principal)
CPT/HCPCS: 99024

== ENCOUNTER → 2023-12-13 13:42 | Outpatient (BNVA) | payer OTHER, SELFPAY | PROVIDERS: PCP Internal Medicine; Visit Provider Physician Assistant | DX: Z98.890 Other specified postprocedural states (principal) | CPT/HCPCS: 99212 ==

== ENCOUNTER 2024-01-02 08:09 | Inpatient (IN) | payer OTHER, SELFPAY ==
[2024-01-02] VITALS (9 sets, daily range): BP systolic 122–134; BP diastolic 65–82; PULSE 88–102; RESP 16–20; TEMP 36.2–37.1; O2SAT 95–99; BMI 29.6; BMI 31.2
--- NOTE | ~2024-01-02 | US_ITS ---
EXAMINATION: US VENOUS ULTRASOUND WITH DOPPLER LOWER EXTREMITY, RIGHT CLINICAL INFORMATION: Pain, swelling, warmth COMPARISON: Right lower extremity duplex on 12/05/2023 TECHNIQUE: Ultrasound of the deep veins is performed from the hip to the calf with compression sonography and color and pulse Doppler assessment. Spectral analysis with color-flow imaging is performed. FINDINGS: There is normal venous compression and respiratory variation and augmented flow. The visualized common femoral vein, superficial femoral vein, profunda femoral vein, popliteal vein, and the trifurcation region shows no evidence of deep venous thrombosis. There is no significant popliteal fossa cyst. If the patient's symptoms persist, followup ultrasound in 5 days 7 days might be of value to exclude proximal propagation from a non-visualized calf vein. Prominent right inguinal lymph node. US/US venous duplex LE RT IMPRESSION: No DVT demonstrated in the right lower extremity.
--- NOTE | ~2024-01-02 | CT_ITS ---
EXAMINATION: CT ABDOMEN WITHOUT CONTRAST CLINICAL INFORMATION: Abdominal distention, question ascites COMPARISON: MRI of the abdomen 11/29/2023 TECHNIQUE: Contiguous axial thin section helical images of the abdomen were performed without contrast. The data set was reformatted in the coronal and sagittal planes and reviewed on an independent workstation. This CT examination was performed using dose optimization techniques as appropriate, variously including the following: *Automated exposure control *Adjustment of mA and/or kV according to patient size (this includes techniques or standardized protocols for targeted exams where dose is matched to indication/reason for exam; i.e. extremities or head) *Use of iterative reconstruction technique DLP: 534 mGy-cm FINDINGS: LUNG BASES: Small left-sided pleural effusion with consolidation versus atelectasis in the left lower lobe. LIVER, GALLBLADDER, BILIARY TREE: There is moderate ascites. Cirrhotic morphology of the liver. No intrahepatic biliary ductal dilatation. Cholelithiasis. PANCREAS: Unremarkable. SPLEEN: Enlarged spleen measuring 16 cm ADRENAL GLANDS AND KIDNEYS: No adrenal nodules. Kidneys are symmetric in size. No calculi or hydronephrosis. BOWEL LOOPS: Small hiatal hernia. Debris in the stomach. No bowel obstruction. Bowel anastomotic sutures in the right upper quadrant. LYMPH NODES: There are prominent lymph nodes in the torres hepatis, the lack of intravenous contrast limits evaluation. VASCULAR: Atherosclerotic calcification in the aorta without aneurysm. BONES: No acute abnormalities. CT/CT abdomen wo IV con IMPRESSION: 1. Cirrhotic morphology of the liver. Moderate ascites. Splenomegaly. 2. Cholelithiasis. 3. Small left-sided pleural effusion with consolidation versus atelectasis in the left lower lobe. Fleischner guidelines were followed.
--- NOTE | ~2024-01-02 | CT_ITS ---
EXAMINATION: CT KNEE WITH CONTRAST, RIGHT CLINICAL INFORMATION: Recurrent infections. COMPARISON: No recent relevant comparison available. TECHNIQUE: Multidetector CT imaging examination of the right knee is performed. Axial images and multiplanar reformatted images are reviewed. A total of 85 mL Omnipaque 350 was given intravenously. This CT examination was performed using dose optimization techniques as appropriate, variously including the following: *Automated exposure control *Adjustment of mA and/or kV according to patient size (this includes techniques or standardized protocols for targeted exams where dose is matched to indication/reason for exam; i.e. extremities or head) *Use of iterative reconstruction technique DLP: 258 mGy-cm FINDINGS: Alignment is normal at patellofemoral and tibiofemoral compartments. Joint spaces are maintained. No fracture, erosions or periostitis. The cruciate ligaments and collateral ligament is grossly intact. Quadriceps tendon and patellar tendon are normal. Small knee joint effusion and thickened, enhancing synovium without focal synovial lesion or intra-articular gas. No Lomeli's cyst. Diffuse edema of the subcutaneous tissues of the visualized extremity. The intermuscular fat planes are well-preserved. No focal muscle inflammation or soft tissue abscess. No popliteal lymphadenopathy. The visualized popliteal and proximal leg vessels are patent. No venous thrombosis. CT/CT knee RT w IV con IMPRESSION: * Small knee joint effusion and thickened enhancing synovium could represent either noninfectious or infectious synovitis. * No evidence of osteomyelitis. * Diffuse edema of the subcutaneous tissues of the visualized extremity is nonspecific but cellulitis would be considered if in the proper clinical context. There is no soft tissue abscess.
--- NOTE | 2024-01-02 08:50 | ED.GENADULT ---
HPI - General Adult General Chief complaint: General Medical Stated complaint: antibiotics not working Time Seen by Provider: 01/02/24 08:34 Source: patient and old records reviewed Mode of arrival: ambulatory Limitations: no limitations History of Present Illness ED Provider: AZAEL NEWMAN narrative: 58 yo male with PMH of alcoholic cirrhosis, mood disorder, IDDM2, PE on eliquis, prior R knee septic arthritis first treated 11/26 to 12/01 with washout on 11/29 by Vidhi that grew serratia marcescens who has been on levofloxacin daily - he then returned again stating leg was worsening and had another wash out on 12/05 but it was SS fluid and no purulence. He completed 750mg daily of levofloxacin on 12/22. He returns back to our ER today with c/o leg getting worse then admits to me he didn't really take the medicine missed doses and admits to not taking the last 4 doses due to it making him weird and angry at home he states the leg never got better MD complaint: R knee and leg pain Onset (ago): month(s) (1+) Location: right and lower extremity Radiation: non-radiation Severity: moderate Quality: aching Pain Consistency: constant Relieving factors: immobilization Exacerbating factors: movement Associated symptoms: fever/chills and malaise Treatments prior to arrival: none Related Data Home Medications ?Medication ?Instructions ?Recorded ?Confirmed bupropion HCl 300 mg 24 hr tablet, 300 mg PO DAILY 06/10/21 12/05/23 extended release folic acid 1 mg tablet 1 mg PO DAILY 06/10/21 12/05/23 thiamine HCl (vitamin B1) 100 mg 100 mg PO DAILY 06/10/21 12/05/23 tablet albuterol sulfate 90 mcg/actuation 2 puff inhalation Q6H PRN 01/26/22 12/05/23 aerosol inhaler (ProAir HFA) Shortness Of Breath hydroxyzine pamoate 25 mg capsule 50 mg PO DAILY PRN itching 01/26/22 12/05/23 lorazepam 0.5 mg tablet 0.5 mg PO DAILY PRN anxiety attack 07/13/22 12/05/23 paroxetine HCl 20 mg tablet 20 mg PO DAILY 07/13/22 12/05/23 insulin glargine 100 unit/mL (3 20 unit subcut DAILY PRN elevated 11/27/22 12/05/23 mL) subcutaneous pen blood sugar insulin lispro 100 unit/mL 1 sliding scale dose subcut QIDACHS 03/03/23 12/05/23 subcutaneous pen acamprosate 333 mg tablet,delayed 333 mg PO Q8H PRN ALCOHOL 11/27/23 12/05/23 release ABSTINENCE carvedilol 6.25 mg tablet 6.25 mg PO BIDWM 11/27/23 12/05/23 lactulose 10 gram/15 mL oral 30 ml PO TID PRN hepatic 11/27/23 12/05/23 solution encephalopathy Previous Rx's ?Medication ?Instructions ?Recorded blood sugar diagnostic (FreeStyle #100 ea 10/30/22 Lite Strips) blood-glucose meter (FreeStyle #1 ea 10/30/22 Lite Meter kit) lancets #200 ea 10/30/22 ondansetron 4 mg disintegrating 4 mg PO Q8H PRN nausea and 10/30/22 tablet vomiting #14 tabs pen needle, diabetic 31 gauge x #1,200 ea 10/31/22/16 (Pen Needle) spironolactone 100 mg tablet 200 mg (2 x 100 mg) PO DAILY 90 03/14/23 days #180 tabs furosemide 40 mg tablet 80 mg (2 x 40 mg) PO DAILY 90 days 05/07/23 #180 tabs walker #1 ea 12/04/23 levofloxacin 750 mg tablet 750 mg PO Q24H #14 tabs 12/08/23 apixaban 5 mg tablet (Eliquis) 5 mg PO BID #56 tabs 12/12/23 omeprazole 40 mg capsule,delayed 40 mg PO DAILY #28 caps 12/12/23 release rifaximin 550 mg tablet (Xifaxan) 550 mg PO BID #56 tabs 12/12/23 hydromorphone 2 mg tablet 2 mg PO .Q8 PRN severe pain 7 days 12/28/23 (Dilaudid) #20 tabs Allergies Allergy/AdvReac Type Severity Reaction Status Date / Time No Known Drug Allergies Allergy Mild NONE Verified 01/02/24 08:30 [NO KNOWN DRUG ALLERGIES] Review of Systems Review of Systems: Constitutional : No Fever, pos Chills ENT/Mouth : No sore throat, No Rhinorrhea Eyes: No Eye Pain, No Swelling, No Redness Cardiovascular : No Chest Pain, No SOB Respiratory : No Cough, No Sputum Gastrointestinal : No Nausea, No Vomiting, No Diarrhea, No abdominal Pain Genitourinary : No Dysuria, No Hematuria Musculoskeletal : pos joint pain, No Myalgias, pos Joint Swelling Skin : No Skin Lesions, positive skin rash Neuro : No Weakness, No Numbness, No Headache Psych : No Anxiety, No Depression Heme/Lymph: No Bruising, No Bleeding,No Lymphadenopathy Endocrine : No Polyuria, No Polydipsia All other systems reviewed and are negative [facility]LY [facility] Past Medical History Attestation statement: The following information was validated with the patient. Source: old records reviewed Medical History Pulmonary nodule 1 cm or greater in diameter Pleuritic chest pain Pulmonary embolism, bilateral Cirrhosis of liver Diabetes Alcohol use disorder, moderate, dependence Recurrent left pleural effusion Pleural effusion Pericardial effusion Tachycardia Dyspnea Hydropneumothorax Pleural effusion on right Decompensation of cirrhosis of liver Cirrhosis GERD (gastroesophageal reflux disease) Esophageal varices Chronic abdominal pain Gout Peripheral neuropathy Alcoholism Elevated LFTs Surgical History History of abdominal paracentesis Hx of esophagogastroduodenoscopy History of thoracentesis H/O colonoscopy H/O cervical spine surgery H/O hemicolectomy Family History Family History Mother Cancer Sister Cancer Social History Social History Household Members: Spouse Household Members Other:: 1 Housing: House Are you a primary career representative to a significant other at home: No Do you presently have visiting nurse or other home services: No Alcohol intake: current Alcohol intake frequency: 0-2 drinks per day Alcohol type: hard liquor Comment: counts correct Patient Tobacco Use Status: Former Tobacco user Tobacco use type: Cigarette Years Smoked: 35 e-Cigarette/Vaping Use: Never Used Second Hand Smoke Exposure: No Substance Use Type: Marijuana Advance Directives: Yes Advance Directives on File: Yes Advance Directives Date on File: 11/27/22 service: No Current occupational status: unemployed Physical Exam ED Vital Signs: Vital Signs - 24 hr 01/02/24 08:27 01/02/24 08:44 Temperature 98.8 F 98.0 F Pulse Rate 95 97 Respiratory Rate 16 Blood Pressure 127/78 Pulse Oximetry 98 99 Oxygen Delivery Method Room Air Room Air BMI result Body Mass Index 29.6 Appearance: Alert. Oriented X3. No acute distress. Eyes: Pupils equal, round and reactive to light. ENT: Pharynx normal. Neck: Normal inspection. Neck supple. CVS: Normal heart rate and rhythm. Pulses normal. Respiratory: No respiratory distress. Breath sounds normal. Abdomen: Soft and nontender. Skin: Skin warm and dry. R leg around covarrubias and ankle warm ttp and hot to touch knee itself is not red but it is swollen moderate and pain with any ROM - he is NV intact, no absscess noted no crepitus. see pics below Extremities: R leg trace to 1+ pitting edema around ankles Neuro: Oriented X 3. No motor deficit. No sensory deficit. Medications Administered Discontinued Medications Generic Name Dose Route Start Last Admin Trade Name Freq PRN Reason Stop Dose Admin Ceftriaxone Sodium 1 gm/ 50 mls @ 100 mls/hr 01/02/24 09:14 01/02/24 10:45 Sodium Chloride IV 01/02/24 09:43 Infused ONCE ONE Infusion Sodium Chloride 250 mls @ 250 mls/hr 01/02/24 10:05 01/02/24 11:32 Ns IV 01/02/24 11:04 Infused .Q1H ONE Infusion Oxycodone HCl 5 mg 01/02/24 09:17 01/02/24 10:02 Oxycodone Hcl Immed Release 5 Mg Tablet PO 01/02/24 09:18 5 mg ONCE ONE Administration Medical Decision Making Medical Decision Making MDM Narrative: 58 yo male with PMH of alcoholic cirrhosis, mood disorder, IDDM2, PE on eliquis, prior R knee septic arthritis found to have serratia marcescens who completed levofloxacin therapy on 12/18 as he admits he was not compliant presents with persistent pain in R knee swelling now redness on R leg. He notes it never got better but is more painful now. At this time will obtain labs, cultures, his culture is amenable to ceftriaxone. Will start with that and discuss with orthopedics Differential Diagnosis Differential Diagnoses: The differential diagnosis associated with the presentation includes noncompliance, cellulitis, subacute septic arthrits Admission/Observation Consideration of admission/observation: Escalation of care including admission/observation considered will admit for further management hospitalist requesting CT scan of knee Dr. Sultana will follow result Consult Healthcare Provider Management of the patient was discussed with: Hospitalist (will admit) and Air Conditioning Mechanic (discussed with orthopedics [place] no need to repeat aspiration) Lab Data MDM Lab Attestation statement: I reviewed the patient's lab results. 01/02/24 09:36 01/02/24 09:36 Labs: Lab Results 01/02/24 Range/Units 09:36 WBC 5.0 (4.8-10.8) X10*3/uL RBC 3.40 L (4.60-5.80) X10*6/uL Hgb 9.1 L (14.0-18.0) g/dl Hct 29.0 L (42.0-52.0) % MCV 85.3 (80.0-98.0) fL MCH 26.8 L (27.0-33.0) pg MCHC 31.4 (31.0-36.0) g/dl RDW 17.6 H (11.0-16.0) % Plt Count 191 D (160-400) X10*3/uL MPV 8.9 L (9.4-12.4) fL Immature Gran % (Auto) 0.6 H (0.0-0.4) % Neut % (Auto) 70.6 (45-73) % Lymph % (Auto) 11.4 L (20-40) % [place] % (Auto) 14.8 H (2-11) % Eos % (Auto) 1.0 (0-4) % Baso % (Auto) 1.6 (0-2) % Lymph # (Auto) 0.6 L (1.2-4.9) X10*3/uL [place] # (Auto) 0.7 (0.1-1.2) X10*3/uL Eos # (Auto) 0.1 (0.0-0.4) X10*3/uL Baso # (Auto) 0.1 (0.0-0.2) X10*3/uL Abs Immat Gran (auto) 0.03 (0.00-0.03) X10*3/uL Absolute Neuts (auto) 3.5 (2.0-8.3) x10*3/uL Absolute Nucleated RBC 0.000 (0.0-0.012) X10*3/uL Nucleated RBC % (auto) 0.0 (0.0-0.2) /100WBC ESR 49 H (0-15) MM/HR Sodium 135 (135-145) mmol/L Potassium 3.4 (3.3-5.1) mmol/L Chloride 99 (96-108) mmol/L Carbon Dioxide 26 (22-29) mmol/L Anion Gap 13 (12-20) BUN 6 L (9-16) mg/dL Creatinine 0.76 (0.5-1.4) mg/dL Estim Creat Clear Calc 151.6 Estimated GFR > 60 Random Glucose 129 H (60-115) mg/dL Lactic Acid 2.1 H* (0.5-2.0) mmol/L Calcium 8.3 L (8.4-10.2) mg/dL Magnesium 1.7 (1.6-2.6) mg/dL Total Bilirubin 3.2 H (0.0-1.0) mg/dL Direct Bilirubin 1.9 H (0.0-0.5) mg/dL AST 41 H (5-37) U/L ALT 13 (0-40) U/L Alkaline Phosphatase 327 H (39-117) U/L C-Reactive Protein 1.45 H (< or = 0.50) mg/dL Total Protein 7.3 (6.5-8.0) g/dL Albumin 2.8 L (3.5-5.0) g/dL External Record Review External record reviewed: Inpatient record Discharge Plan Discharge Clinical Impression: Cellulitis, Non-compliance, Acidosis, lactic Patient Disposition: Admitted As Inpatient Prescriptions: No Action spironolactone 100 mg tablet 200 mg PO DAILY 90 Days Qty: 180 0RF Hold Instructions: Check with nephrology before restarting furosemide 40 mg tablet 80 mg PO DAILY 90 Days Qty: 180 0RF Hold Instructions: Check with nephrology before restarting omeprazole 40 mg capsule,delayed release(DR/EC) 40 mg PO DAILY Qty: 28 0RF Xifaxan 550 mg tablet 550 mg PO BID Qty: 56 0RF Eliquis 5 mg tablet 5 mg PO BID Qty: 56 0RF hydromorphone [Dilaudid] 2 mg tablet 2 mg PO .Q8 PRN (Reason: severe pain) 7 Days Qty: 20 0RF Rx Instructions: Partial Fill upon patient request. paroxetine HCl 20 mg tablet 20 mg PO DAILY acamprosate 333 mg tablet,delayed release (DR/EC) 333 mg PO Q8H PRN (Reason: ALCOHOL ABSTINENCE) carvedilol 6.25 mg tablet 6.25 mg PO BIDWM Rx Instructions: must administer with a meal/food lactulose 10 gram/15 mL solution 30 ml PO TID PRN (Reason: hepatic encephalopathy) (DME) walker Mis See Rx Instructions .Route Qty: 1 0RF Rx Instructions: As directed levofloxacin 750 mg Tablet 750 mg PO Q24H Qty: 14 0RF ondansetron 4 mg tablet,disintegrating 4 mg PO Q8H PRN (Reason: nausea and vomiting) Qty: 14 0RF [place] [place] FreeStyle Lite Strips Strip See Rx Instructions .ROUTE .MEDSUPPLY Qty: 100 2RF Rx Instructions: QID [place] [facility] [place]ROUTE .MEDSUPPLY Qty: 200 2RF Rx Instructions: 4 times daily ([facility] blood-glucose meter [FreeStyle Lite Meter] Kit See Rx Instructions .ROUTE .MEDSUPPLY Qty: 1 0RF Rx Instructions: As directed ([facility] pen needle, diabetic [Pen Needle] 31 gauge x 5/16 needle See Rx Instructions .ROUTE .MEDSUPPLY Qty: 1200 0RF Rx Instructions: As directed insulin glargine 100 unit/mL (3 mL) insulin pen 20 unit subcut DAILY PRN (Reason: elevated blood sugar) insulin lispro 100 unit/mL insulin pen 1 sliding scale dose subcut QIDACHS Protocol: Insulin Correction Scale Less than or equal to 110 ---- Give (units): 0 111 to 150 Give (units): 0 151 to 200 Give (units): 2 201 to 250 Give (units): 4 251 to 300 Give (units): 6 301 to 350 Give (units): 8 Greater than 350 Give (units): 10 Call MD if Blood Glucose > : 350 hydroxyzine pamoate 25 mg capsule 50 mg PO DAILY PRN (Reason: itching) Rx Instructions: ITCHING/ANXIETY albuterol sulfate [ProAir HFA] 90 mcg/actuation HFA aerosol inhaler 2 puff inhalation Q6H PRN (Reason: Shortness Of Breath) folic acid 1 mg tablet 1 mg PO DAILY bupropion HCl 300 mg tablet extended release 24 hr 300 mg PO DAILY thiamine HCl (vitamin B1) 100 mg tablet 100 mg PO DAILY lorazepam 0.5 mg tablet 0.5 mg PO DAILY PRN (Reason: anxiety attack) Print Language: Omani
[2024-01-02 09:44] LABS: MANUAL DIFF FLAG NO
[2024-01-02 09:47] LABS: Basophils Absolute Auto 0.1 X10*3/uL (0.0-0.2); Basophils Percent Auto 1.6 % (0-2); Eosinophils Absolute Auto 0.1 X10*3/uL (0.0-0.4); Hemoglobin 9.1 g/dl (14.0-18.0); Imm Gran Abs Auto 0.03 X10*3/uL (0.00-0.03); Imm Gran Pct Auto 0.6 % (0.0-0.4); Lymphocytes Absolute Auto 0.6 X10*3/uL (1.2-4.9); Lymphocytes Percent Auto 11.4 % (20-40); Mean Corpuscular HGB Conc 31.4 g/dl (31.0-36.0); Mean Corpuscular Hemoglobin 26.8 pg (27.0-33.0); Mean Corpuscular Volume 85.3 fL (80.0-98.0); Mean Platelet Volume 8.9 fL (9.4-12.4); Monocytes Absolute Auto 0.7 X10*3/uL (0.1-1.2); Monocytes Percent Auto 14.8 % (2-11); Neutrophils Absolute Auto 3.5 x10*3/uL (2.0-8.3); Neutrophils Percent Auto 70.6 % (45-73); Platelet Count 191 X10*3/uL (160-400); Red Cell Distribution Width 17.6 % (11.0-16.0)
[2024-01-02 10:01] LABS: Anion Gap 13 (12-20); Blood Urea Nitrogen 6 mg/dL (9-16); Calcium 8.3 mg/dL (8.4-10.2); Carbon Dioxide 26 mmol/L (22-29); Chloride 99 mmol/L (96-108); Creatinine Clr Calc Pharmacy 151.6; Estimated Glomerular Filt Rate > 60; Glucose Random 129 mg/dL (60-115); Potassium 3.4 mmol/L (3.3-5.1); Sodium 135 mmol/L (135-145)
[2024-01-02 10:02] LABS: Lactic Acid 2.1 mmol/L (0.5-2.0)
[2024-01-02] MEDS: oxyCODONE HCl Immed Release 5 MG TABLET PO (10:02)
[2024-01-02 10:03] LABS: Alanine Aminotransferase 13 U/L (0-40); Albumin Level 2.8 g/dL (3.5-5.0); Alkaline Phosphatase 327 U/L (39-117); Aspartate Amino Transferase 41 U/L (5-37); Bilirubin Direct 1.9 mg/dL (0.0-0.5); Bilirubin Total 3.2 mg/dL (0.0-1.0); C Reactive Protein 1.45 mg/dL (< or = 0.50); Magnesium 1.7 mg/dL (1.6-2.6); Total Protein 7.3 g/dL (6.5-8.0)
[2024-01-02] MEDS: cefTRIAXone sodium 1 GM in 0.9 % Sodium Chloride 50 ML IV (10:03)
[2024-01-02 10:26] LABS: Erythrocyte Sedimentation Rate 49 MM/HR (0-15)
[2024-01-02] MEDS: 0.9 % Sodium Chloride 250 ML IV (10:30)
[2024-01-02 11:43] LABS: Reflex Lactate? Lactic Acid Added
[2024-01-02] MEDS: iohexoL 350 MG/ML 100 ML INFUS..BTL IV (12:04)
--- NOTE | 2024-01-02 12:07 | P.HPHOSP_ITS ---
History of Present Illness Date of Service: 01/02/24 Chief Complaint: leg infection This is a 58-year-old male with pertinent history of alcoholic cirrhosis, history of PE on Eliquis, insulin-dependent diabetes mellitus, mood disorder, gastroesophageal reflux disease who presents to the emergency department for concerns of right leg infection. Patient initially presented to the ED on 11/27/2023 with right knee pain and swelling. Joint aspiration was done and patient was admitted for right knee septic arthritis. Patient had a washout on 11/29 by Orthopedic surgery. Patient left against medical advice on 12/01. P.o. antibiotics was sent but patient did not take them. Returned to the ER on 12/04 for worsening right lower extremity swelling and pain. Patient underwent repeat arthroscopic lavage by Orthopedic surgery on 12/05 and was discharged with 2 weeks of p.o. levofloxacin. Knee aspirate grew Serratia. Patient states that since returning home on 12/07 he did miss his doses of p.o. levofloxacin. Patient has been noncompliant with p.o. antibiotic as he stated that it causes mood changes. Patient states his leg did not get better and he continues to have right lower extremity swelling, warmth, pain. Also has noticed swelling of the knee joint with difficulty with movement. No fever, chills, chest discomfort, palpitations, shortness of breath, abdominal pain, changes in urinary or bowel habits. Review of Systems 2 Constitutional: Constitutional: Reports no additional constitutional complaints Cardiovascular: Cardiovascular: Reports no additional cardiovascular complaints Respiratory: Respiratory: Reports no additional respiratory complaints Gastrointestinal: Gastrointestinal: Reports no additional gastrointestinal complaints Genitourinary: Genitourinary: Reports no additional male genitourinary complaints Musculoskeletal: Musculoskeletal: Reports arthralgias and Reports joint swelling [facility] Medical History Pulmonary nodule 1 cm or greater in diameter Pleuritic chest pain Pulmonary embolism, bilateral Cirrhosis of liver Diabetes Alcohol use disorder, moderate, dependence Recurrent left pleural effusion Pleural effusion Pericardial effusion Tachycardia Dyspnea Hydropneumothorax Pleural effusion on right Decompensation of cirrhosis of liver Cirrhosis GERD (gastroesophageal reflux disease) Esophageal varices Chronic abdominal pain Gout Peripheral neuropathy Alcoholism Elevated LFTs Family History Mother Cancer Sister Cancer Surgical History History of abdominal paracentesis Hx of esophagogastroduodenoscopy History of thoracentesis H/O colonoscopy H/O cervical spine surgery H/O hemicolectomy Social History Household Members: Spouse Household Members Other:: 1 Housing: House Are you a primary residential caregiver to a significant other at home: No Do you presently have visiting nurse or other home services: No Alcohol intake: current Alcohol intake frequency: 0-2 drinks per day Alcohol type: hard liquor Comment: counts correct Patient Tobacco Use Status: Former Tobacco user Tobacco use type: Cigarette Years Smoked: 35 e-Cigarette/Vaping Use: Never Used Second Hand Smoke Exposure: No Substance Use Type: Marijuana Advance Directives: Yes Advance Directives on File: Yes Advance Directives Date on File: 11/27/22 service: No Current occupational status: unemployed Meds Allergies Allergy/AdvReac Type Severity Reaction Status Date / Time No Known Drug Allergies Allergy Mild NONE Verified 01/02/24 08:30 [NO KNOWN DRUG ALLERGIES] Home Medications ?Medication ?Instructions ?Recorded ?Confirmed ?Last Taken ?Type bupropion HCl 300 mg 24 hr tablet, 300 mg PO DAILY 06/10/21 01/02/24 01/01/24 History extended release folic acid 1 mg tablet 1 mg PO DAILY 06/10/21 01/02/24 01/01/24 History thiamine HCl (vitamin B1) 100 mg 100 mg PO DAILY 06/10/21 01/02/24 01/01/24 History tablet albuterol sulfate 90 mcg/actuation 2 puff inhalation Q6H PRN 01/26/22 01/02/24 01/01/24 History aerosol inhaler (ProAir HFA) Shortness Of Breath hydroxyzine pamoate 25 mg capsule 50 mg PO DAILY PRN itching 01/26/22 01/02/24 01/01/24 History lorazepam 0.5 mg tablet 0.5 mg PO DAILY PRN anxiety attack 07/13/22 01/02/24 01/01/24 History paroxetine HCl 20 mg tablet 20 mg PO DAILY 07/13/22 01/02/24 01/01/24 History insulin glargine 100 unit/mL (3 20 unit subcut DAILY PRN elevated 11/27/22 01/02/24 01/01/24 History mL) subcutaneous pen blood sugar insulin lispro 100 unit/mL 1 sliding scale dose subcut QIDACHS 03/03/23 01/02/24 01/01/24 History subcutaneous pen acamprosate 333 mg tablet,delayed 333 mg PO Q8H PRN ALCOHOL 11/27/23 01/02/24 01/01/24 History release ABSTINENCE carvedilol 6.25 mg tablet 6.25 mg PO BIDWM 11/27/23 01/02/24 01/01/24 History lactulose 10 gram/15 mL oral 30 ml PO TID PRN hepatic 11/27/23 01/02/24 01/01/24 History solution encephalopathy hydromorphone 2 mg tablet 2 mg PO Q4H PRN severe pain 01/02/24 01/02/24 01/01/24 History (Dilaudid) omeprazole 40 mg capsule,delayed 40 mg PO DAILY@0630 01/02/24 01/02/24 01/01/24 History release Physical Exam 2 Vital Signs and Narrative: Vital Signs: Last Vital Signs Temp 98.0 F 01/02/24 08:44 Pulse 97 01/02/24 08:44 Resp 16 01/02/24 08:27 BP 127/78 01/02/24 08:44 Pulse Ox 99 01/02/24 08:44 O2 Del Method Room Air 01/02/24 08:44 BMI result Body Mass Index 29.6 Middle-aged male lying in bed in no distress Neck supple, no JVD Regular rate and rhythm, S1-S2 heard Regular breath sounds bilaterally, no wheezing or crackles appreciated Abdomen soft nontender, no guarding, no rigidity Patient is awake, alert and oriented to self, place, time and person ; no focal motor deficit Psych: Normal mood Right lower extremity with swelling, warmth and pain Results Labs 01/02/24 09:36 01/02/24 09:36 Labs: Laboratory Results - last 24 hr 01/02/24 09:36 MCV 85.3 MCH 26.8 L MCHC 31.4 RDW 17.6 H Plt Count 191 D MPV 8.9 L Immature Gran % (Auto) 0.6 H Neut % (Auto) 70.6 Lymph % (Auto) 11.[address] [place] % (Auto) 14.8 H Eos % (Auto) 1.0 Baso % (Auto) 1.6 Lymph # (Auto) 0.[address] [place] # (Auto) 0.7 Eos # (Auto) 0.1 Baso # (Auto) 0.1 Abs Immat Gran (auto) 0.03 Absolute Neuts (auto) 3.5 Absolute Nucleated RBC 0.000 Nucleated RBC % (auto) 0.0 ESR 49 H Anion Gap 13 Estim Creat Clear Calc 151.6 Estimated GFR > 60 Random Glucose 129 H Lactic Acid 2.1 H* Calcium 8.3 L Magnesium 1.7 Total Bilirubin 3.2 H Direct Bilirubin 1.9 H AST 41 H ALT 13 Alkaline Phosphatase 327 H C-Reactive Protein 1.45 H Total Protein 7.3 Albumin 2.8 L Assessment and Plan (1) Cellulitis: Qualifiers: Laterality: right Site of cellulitis: extremity Site of cellulitis of extremity: lower extremity Qualified Code(s): L03.115 - Cellulitis of right lower limb Status: Acute Plan This is a 58-year-old male with pertinent history of alcoholic cirrhosis, history of PE on Eliquis, insulin-dependent diabetes mellitus, mood disorder, gastroesophageal reflux disease who presents to the emergency department for concerns of right leg infection. #. Right lower extremity cellulitis with right knee joint effusion concerning for recurrent septic arthritis: Is noncompliant with p.o. antibiotics (did not finish previous antibiotic course for septic arthritis). Will admit patient and initiate empiric IV vancomycin and ceftriaxone. Will obtain venous Doppler to rule out DVT. Will consult Orthopedic surgery and Infectious Disease. #. History of PE: On Eliquis. Hold until orthopedic surgical evaluation #. Insulin-dependent diabetes mellitus: Initiating Accu-Cheks with sliding scale insulin. Patient not taking his Lantus at home #. Alcoholic cirrhosis: On rifaximin, thiamine, folate and diuretics. Lactulose p.r.n. #. Gastroesophageal reflux disease: On PPI and sucralfate #. Mood disorder: Continue home mood stabilizers Med rec pending DVT prophylaxis: Mechanical Full code Admit as inpatient and will require two night minimum hospital stay for IV antibiotics (as above), which is not possible in a lesser acute setting. Quality Stroke Does the patient have a stroke diagnosis?: No VTE Prior VTE?: No VTE Risk Level:: Medical - moderate - high VTE Device Contraindication: N/A - Device Ordered VTE Drug Contraindication: Treatment Not Indicated
[2024-01-02 13:01] LABS: Glucose, Whole Blood 113 mg/dL (60-115)
[2024-01-02 13:20] LABS: ~Lactic Acid-LAB USE ONLY 1.5 mmol/L (0.5-2.0)
[2024-01-02] MEDS: vancomycin/NS 2,000 MG/500 ML PLAST..BAG 250 MG IV (13:21)
--- NOTE | 2024-01-02 13:44 | PHA.MEDREC ---
Addendum entered by Bere Fulton 01/02/24 13:48: Also confirmed medications with discharge packet from 12/08/2023 Original Note: Pharmacy Consult ? Medication Reconciliation Pharmacy has completed the medication reconciliation. Confirmed medications with patient. I asked him about using his lantus and he stated to me that he has not had to use them in a while due to his blood sugar levels being normal. He also confirmed he took his medications last yesterday.
--- NOTE | 2024-01-02 13:49 | PHA.PROG ---
Admission Date/Time: January 02, 2024 12:21 Indication: Skin Weight in k.398 kg Serum Creatinine - Last 168 Hours 01/02/24 09:36 Creatinine 0.76 Estimated CrCl and GFR - Last 168 Hours 01/02/24 09:36 Estim Creat Clear Calc 151.6 Estimated GFR > 60 Vancomycin Loading Dose: 2,000 mg Current Vancomycin Dosing Regimen: 750 mg Q8H Vancomycin Monitoring using AUC goal of 400 - 600 range with trough as surrogate marker: 414 mg/L and predicted trough 14.3 Date and Time for next Vancomycin Level to be drawn: 01/02 @ 1100 Pharmacist Comments on Vancomycin Plan: Vancomycin dosing will take advantage of [employer] as a clinical decision support tool that uses Bayesian modeling to calculate individual patient's pharmacokinetic parameters and forecast the patient's drug concentration time course with the target goal AUC 24 range of 400 - 600 mg/L/hr.
[2024-01-02] MEDS: Morphine Sulfate 2 MG/ML CARTRIDGE IVPUSH ×2 (13:50→19:27)
--- NOTE | 2024-01-02 14:49 | PM.EVENT ---
Event Note Date of Service: 01/02/24 Event Note: Discussed the case with Dr. Sultana, the patient needs to continue abx. There is no surgical intervention needed at this time. small effusion does not warrant aspiration. Time Spent With Patient Time: Total time managing care of this patient today ____ minutes.
[2024-01-02 18:12] LABS: Glucose, Whole Blood 109 mg/dL (60-115)
[2024-01-02] MEDS: carvediloL 6.25 MG TABLET PO (18:32)
[2024-01-02] MEDS: 0.9 % Sodium Chloride Flush 3 ML SYRINGE IVFLUSH ×2 (18:34→22:03)
[2024-01-02] MEDS: rifAXIMin 550 MG TABLET PO (20:54)
[2024-01-02] MEDS: vancomycin HCL 750 MG in 0.9 % Sodium Chloride 250 ML 265 MG IV (20:54)
[2024-01-02 21:04] LABS: Glucose, Whole Blood 116 mg/dL (60-115)
--- NOTE | 2024-01-02 21:19 | HO.SKINPHOTO ---
Location: Left Knee Category: Stage: Length: Width: Depth: cm
[2024-01-03 03:47] VITALS: BP 125/67; PULSE 89; RESP 18; TEMP 36; O2SAT 97
[2024-01-03] MEDS: HYDROmorphone HCl 2 MG TABLET PO ×4 (03:53→20:51)
[2024-01-03] MEDS: vancomycin HCL 750 MG in 0.9 % Sodium Chloride 250 ML 265 MG IV ×3 (05:01→20:53)
[2024-01-03] MEDS: Omeprazole 40 MG CAPSULE.DR PO (05:01)
[2024-01-03 06:41] LABS: MANUAL DIFF FLAG NO
[2024-01-03 07:11] VITALS: BP 125/83; PULSE 91; RESP 18; TEMP 36.4; O2SAT 98
[2024-01-03 07:12] LABS: Glucose, Whole Blood 121 mg/dL (60-115)
[2024-01-03 07:20] LABS: Basophils Absolute Auto 0.1 X10*3/uL (0.0-0.2); Basophils Percent Auto 1.4 % (0-2); Eosinophils Absolute Auto 0.1 X10*3/uL (0.0-0.4); Eosinophils Percent Auto 2.8 % (0-4); Hematocrit 27.3 % (42.0-52.0); Hemoglobin 8.5 g/dl (14.0-18.0); Imm Gran Abs Auto 0.02 X10*3/uL (0.00-0.03); Imm Gran Pct Auto 0.4 % (0.0-0.4); Lymphocytes Absolute Auto 0.8 X10*3/uL (1.2-4.9); Lymphocytes Percent Auto 15.9 % (20-40); Mean Corpuscular HGB Conc 31.1 g/dl (31.0-36.0); Mean Corpuscular Hemoglobin 26.7 pg (27.0-33.0); Mean Corpuscular Volume 85.8 fL (80.0-98.0); Mean Platelet Volume 9.4 fL (9.4-12.4); Monocytes Absolute Auto 0.8 X10*3/uL (0.1-1.2); Monocytes Percent Auto 15.3 % (2-11); Neutrophils Absolute Auto 3.2 x10*3/uL (2.0-8.3); Neutrophils Percent Auto 64.2 % (45-73); Platelet Count 179 X10*3/uL (160-400); Red Blood Count 3.18 X10*6/uL (4.60-5.80); Red Cell Distribution Width 17.8 % (11.0-16.0)
[2024-01-03] MEDS: Spironolactone 25 MG TABLET 200 MG PO (07:58)
[2024-01-03] MEDS: Folic Acid 1 MG TABLET PO (07:59)
[2024-01-03] MEDS: carvediloL 6.25 MG TABLET PO ×2 (07:59→16:24)
[2024-01-03] MEDS: buPROPion HCl XL 300 MG TAB.ER.24H PO (07:59)
[2024-01-03] MEDS: PARoxetine HCL 20 MG TABLET PO (07:59)
[2024-01-03] MEDS: rifAXIMin 550 MG TABLET PO ×2 (07:59→20:49)
[2024-01-03] MEDS: Thiamine HCL 100 MG TABLET PO (07:59)
[2024-01-03] MEDS: Furosemide 40 MG TABLET 80 MG PO (07:59)
[2024-01-03 08:00] VITALS: BP 144/77; PULSE 84; RESP 16; TEMP 36.4; O2SAT 93
[2024-01-03] MEDS: 0.9 % Sodium Chloride Flush 3 ML SYRINGE IVFLUSH ×3 (08:00→20:53)
[2024-01-03 08:01] LABS: Anion Gap 12 (12-20); Blood Urea Nitrogen 5 mg/dL (9-16); Calcium 8.6 mg/dL (8.4-10.2); Carbon Dioxide 24 mmol/L (22-29); Chloride 106 mmol/L (96-108); Creatinine Clr Calc Pharmacy 157.5; Estimated Glomerular Filt Rate > 60; Glucose Random 108 mg/dL (60-115); Sodium 138 mmol/L (135-145)
--- NOTE | 2024-01-03 09:06 | MHC.CM.PN ---
IMM DELIVERED PT LIVES WITH ROOMMATE, USES CANE FOR MOBILITY, USES WALKER PRN FOR LONG DISTANCES. +HCP ON FILE. PCP DR. GARCÍA DP: HOME, NO SERVICES IS THE GOAL. PT MAY NEED A RIDE VIA [employer] SHUTTLE OR LYFT. CM WILL CONTINUE TO FOLLOW FOR ANY CHANGE INN DC PLAN/NEEDS.
--- NOTE | 2024-01-03 09:22 | HO.PM.IMPN ---
Subjective Subjective Date of Service: 01/03/24 Interval History: No significant nursing events overnight. Improvement in leg swelling, redness and warmth. Constitutional Constitutional: Reports no additional constitutional complaints Cardiovascular Cardiovascular: Reports no additional cardiovascular complaints Respiratory Respiratory: Reports no additional respiratory complaints Gastrointestinal Gastrointestinal: Reports no additional gastrointestinal complaints Genitourinary Genitourinary: Reports no additional male genitourinary complaints Musculoskeletal Musculoskeletal: Reports arthralgias and Reports joint swelling Physical Exam Vital Signs: Vital Signs: Last Vital Signs Temp 97.6 F 01/03/24 08:00 Pulse 84 01/03/24 08:00 Resp 16 01/03/24 08:00 BP 144/77 H 01/03/24 08:00 Pulse Ox 93 01/03/24 08:00 O2 Del Method Room Air 01/03/24 08:00 BMI result Body Mass Index 31.2 Middle-aged male lying in bed in no distress Neck supple, no JVD Regular rate and rhythm, S1-S2 heard Regular breath sounds bilaterally, no wheezing or crackles appreciated Abdomen soft nontender, no guarding, no rigidity Patient is awake, alert and oriented to self, place, time and person ; no focal motor deficit Psych: Normal mood Right lower extremity with swelling, warmth and pain Objective Data Active Medications Acamprosate (Acamprosate Calcium 333 Mg Tablet.Dr) 333 mg PO Q8H PRN PRN Reason: ALCOHOL ABSTINENCE Acetaminophen (Acetaminophen 325 Mg Tablet) 650 mg PO Q6H PRN PRN Reason: Pain, Mild (Pain Scale 1-3), fever or headache Bupropion HCl (Bupropion Hcl Xl 300 Mg Tab.Er.24h) 300 mg PO DAILY [facility] Last Admin: 01/03/24 07:59 Dose: 300 mg Documented By: SWETA Calcium Carbonate (Calcium Carbonate 750 Mg Tab.Chew) 750 mg PO Q4H PRN PRN Reason: Heartburn Carvedilol (Carvedilol 6.25 Mg Tablet) 6.25 mg PO BIDWM [facility]; Protocol Last Admin: 01/03/24 07:59 Dose: 6.25 mg Documented By: SWETA Folic Acid (Folic Acid 1 Mg Tablet) 1 mg PO DAILY [facility] Last Admin: 01/03/24 07:59 Dose: 1 mg Documented By: SWETA Furosemide (Furosemide 40 Mg Tablet) 80 mg PO DAILY [facility]; Protocol Last Admin: 01/03/24 07:59 Dose: 80 mg Documented By: SWETA Glucose (Glucose Gel 15 Gm Gel..Gram.) 15 gm PO Q15M PRN; Protocol PRN Reason: per Hypoglycemia Standing Ord. Hydromorphone HCl (Hydromorphone Hcl 2 Mg Tablet) 2 mg PO Q4H PRN PRN Reason: Pain, Severe (Pain Scale 7-10) Last Admin: 01/03/24 08:36 Dose: 2 mg Documented By: EDISON Hydroxyzine HCl (Hydroxyzine Hcl 50 Mg Tablet) 50 mg PO DAILY PRN PRN Reason: itching Ceftriaxone Sodium 1 gm/ (Sodium Chloride) 50 mls @ 100 mls/hr IV Q24H [facility] Dextrose (D10) 250 mls @ 750 mls/hr IV Q15M PRN; Protocol PRN Reason: per Hypoglycemia Standing Ord. Vancomycin HCl 750 mg/ Sodium (Chloride) 265 mls @ 265 mls/hr IV Q8H [facility] Last Infusion: 01/03/24 06:08 Dose: Infused Documented By: TEMITOPE Insulin Human Lispro (Insulin Lispro 100 Unit/Ml 3 Ml Vial) 0 unit SUBCUT QIDACHS [facility]; Protocol Last Admin: 01/03/24 07:14 Dose: Not Given Documented By: SWETA Non-Admin Reason: No Insulin Coverage Lactulose (Lactulose 20 Gm/30 Ml Solution) 20 gm PO TID PRN PRN Reason: hepatic encephalopathy Lorazepam (Lorazepam 0.5 Mg Tablet) 0.5 mg PO DAILY PRN PRN Reason: anxiety attack Magnesium Hydroxide (Milk Of Magnesia 30 Ml Oral.Susp) 30 ml PO DAILY PRN PRN Reason: Constipation Melatonin (Melatonin 3 Mg Tablet) 6 mg PO BEDTIME PRN PRN Reason: Insomnia Morphine Sulfate (Morphine Sulfate 2 Mg/Ml Cartridge) 2 mg IVPUSH Q4H PRN; Protocol PRN Reason: Pain, Severe (Pain Scale 7-10) Last Admin: 01/02/24 19:27 Dose: 2 mg Documented By: ALAN Omeprazole (Omeprazole 40 Mg Capsule.Dr) 40 mg PO DAILY@0630 [facility] Last Admin: 01/03/24 05:01 Dose: 40 mg Documented By: TEMITOPE Ondansetron HCl (Ondansetron Hcl 4 Mg/2 Ml Vial) 4 mg IVPUSH Q8H PRN PRN Reason: Nausea and Vomiting Oxycodone HCl (Oxycodone Hcl Immed Release 5 Mg Tablet) 5 mg PO Q6H PRN PRN Reason: Pain, Severe (Pain Scale 7-10) Paroxetine HCl (Paroxetine Hcl 20 Mg Tablet) 20 mg PO DAILY [facility] Last Admin: 01/03/24 07:59 Dose: 20 mg Documented By: SWETA Pharmacy Consult (Consult Rx Vancomycin Dosing) 1 each MISCELLANE DAILY PRN PRN Reason: Consult order Rifaximin (Rifaximin 550 Mg Tablet) 550 mg PO BID [facility] Last Admin: 01/03/24 07:59 Dose: 550 mg Documented By: SWETA Sodium Chloride (0.9 % Sodium Chloride Flush 3 Ml Syringe) 3 ml IVFLUSH QSHIFT [facility] Last Admin: 01/03/24 08:00 Dose: 3 ml Documented By: SWETA Spironolactone (Spironolactone 25 Mg Tablet) 200 mg PO DAILY [facility]; Protocol Last Admin: 01/03/24 07:58 Dose: 200 mg Documented By: SWETA Thiamine HCl (Thiamine Hcl 100 Mg Tablet) 100 mg PO DAILY [facility] Last Admin: 01/03/24 07:59 Dose: 100 mg Documented By: SWETA Labs 01/03/24 05:18 01/03/24 05:18 Labs: Laboratory Results - last 24 hr 01/02/24 01/02/24 01/02/24 09:36 12:50 12:57 MCV 85.3 MCH 26.8 L MCHC 31.4 RDW 17.6 H Plt Count 191 D MPV 8.9 L Immature Gran % (Auto) 0.6 H Neut % (Auto) 70.6 Lymph % (Auto) 11.4 L [place] % (Auto) 14.8 H Eos % (Auto) 1.0 Baso % (Auto) 1.6 Lymph # (Auto) 0.6 L [place] # (Auto) 0.7 Eos # (Auto) 0.1 Baso # (Auto) 0.1 Abs Immat Gran (auto) 0.03 Absolute Neuts (auto) 3.5 Absolute Nucleated RBC 0.000 Nucleated RBC % (auto) 0.0 ESR 49 H Anion Gap 13 Estim Creat Clear Calc 151.6 Estimated GFR > 60 POC Glucose 113 Random Glucose 129 H Lactic Acid 2.1 H* Lactic Acid F/U @ 2Hr 1.5 Calcium 8.3 L Magnesium 1.7 Total Bilirubin 3.2 H Direct Bilirubin 1.9 H AST 41 H ALT 13 Alkaline Phosphatase 327 H C-Reactive Protein 1.45 H Total Protein 7.3 Albumin 2.8 L 01/02/24 01/02/24 01/03/24 18:08 20:51 05:18 MCV 85.8 MCH 26.7 L MCHC 31.1 RDW 17.8 H Plt Count 179 MPV 9.4 Immature Gran % (Auto) 0.4 Neut % (Auto) 64.2 Lymph % (Auto) 15.9 L [place] % (Auto) 15.3 H Eos % (Auto) 2.8 Baso % (Auto) 1.4 Lymph # (Auto) 0.8 L [place] # (Auto) 0.8 Eos # (Auto) 0.1 Baso # (Auto) 0.1 Abs Immat Gran (auto) 0.02 Absolute Neuts (auto) 3.2 Absolute Nucleated RBC 0.000 Nucleated RBC % (auto) 0.0 ESR Anion Gap 12 Estim Creat Clear Calc 157.5 Estimated GFR > 60 POC Glucose 109 116 H Random Glucose 108 Lactic Acid Lactic Acid F/U @ 2Hr Calcium 8.6 Magnesium Total Bilirubin Direct Bilirubin AST ALT Alkaline Phosphatase C-Reactive Protein Total Protein Albumin 01/03/24 07:08 MCV MCH MCHC RDW Plt Count MPV Immature Gran % (Auto) Neut % (Auto) Lymph % (Auto) [place] % (Auto) Eos % (Auto) Baso % (Auto) Lymph # (Auto) [place] # (Auto) Eos # (Auto) Baso # (Auto) Abs Immat Gran (auto) Absolute Neuts (auto) Absolute Nucleated RBC Nucleated RBC % (auto) ESR Anion Gap Estim Creat Clear Calc Estimated GFR POC Glucose 121 H Random Glucose Lactic Acid Lactic Acid F/U @ 2Hr Calcium Magnesium Total Bilirubin Direct Bilirubin AST ALT Alkaline Phosphatase C-Reactive Protein Total Protein Albumin Assessment and Plan (1) Cellulitis: Status: Acute Plan This is a 58-year-old male with pertinent history of alcoholic cirrhosis, history of PE on Eliquis, insulin-dependent diabetes mellitus, mood disorder, gastroesophageal reflux disease who presents to the emergency department for concerns of right leg infection. #. Right lower extremity cellulitis with right knee joint effusion concerning for ?recurrent septic arthritis: Is noncompliant with p.o. antibiotics (did not finish previous antibiotic course for septic arthritis). Continue empiric IV vancomycin and ceftriaxone (start date: 01/01). Venous Doppler negative for DVT. No surgical intervention as per Orthopedic surgery, awaiting Infectious Disease input. #. History of PE: Continue Eliquis. #. Insulin-dependent diabetes mellitus: Initiating Accu-Cheks with sliding scale insulin. Patient not taking his Lantus at home #. Alcoholic cirrhosis: On rifaximin, thiamine, folate and diuretics. Lactulose p.r.n. #. Hyponatremia, mild: Appears chronic. #. Gastroesophageal reflux disease: On PPI and sucralfate #. Mood disorder: Continue home mood stabilizers DVT prophylaxis: Eliquis Full code Reason for continued hospitalization: IV antibiotics (as above), which is not possible in a lesser acute setting. Infectious disease evaluation pending Quality Stroke Does the patient have a stroke diagnosis?: No VTE Prior VTE?: No VTE Risk Level:: Medical - moderate - high VTE Device Contraindication: N/A - Device Ordered VTE Drug Contraindication: Treatment Not Indicated
[2024-01-03] MEDS: Apixaban 5 MG TABLET PO ×2 (10:18→20:49)
[2024-01-03] MEDS: cefTRIAXone sodium 1 GM in 0.9 % Sodium Chloride 50 ML IV (10:18)
[2024-01-03 11:35] LABS: Vancomycin Random 13.7 mcg/mL (15-20)
[2024-01-03 11:51] LABS: Glucose, Whole Blood 128 mg/dL (60-115)
--- NOTE | 2024-01-03 11:51 | HE.PHANOTE ---
Re: Vanco Renally improving. Trough returned at 13.7. Continue dose at 750 Q8H, predicted AUC 497, predicted trough 17.5. Next trough to be drawn 01/03 @ 1100.
[2024-01-03 15:50] VITALS: BP 117/71; PULSE 85; RESP 16; TEMP 36.3; O2SAT 97
[2024-01-03 16:23] LABS: Glucose, Whole Blood 112 mg/dL (60-115)
[2024-01-03] MEDS: Morphine Sulfate 2 MG/ML CARTRIDGE IVPUSH (16:24)
[2024-01-03 19:23] VITALS: BP 111/69; PULSE 84; RESP 18; TEMP 36.1; O2SAT 97
[2024-01-03 20:15] LABS: Glucose, Whole Blood 120 mg/dL (60-115)
[2024-01-03 23:59] VITALS: BP 119/61; PULSE 91; RESP 18; TEMP 36.4; O2SAT 96
[2024-01-04 03:28] VITALS: BP 119/65; PULSE 95; RESP 17; TEMP 36.1; O2SAT 96
[2024-01-04] MEDS: vancomycin HCL 750 MG in 0.9 % Sodium Chloride 250 ML 265 MG IV ×3 (04:50→20:26)
[2024-01-04] MEDS: HYDROmorphone HCl 2 MG TABLET PO ×4 (04:56→20:24)
[2024-01-04] MEDS: Omeprazole 40 MG CAPSULE.DR PO (05:52)
[2024-01-04 06:37] LABS: Creatinine Clr Calc Pharmacy 153.4; Estimated Glomerular Filt Rate > 60
[2024-01-04 07:12] VITALS: BP 121/73; PULSE 93; RESP 16; TEMP 36.3; O2SAT 95
[2024-01-04 07:22] LABS: Glucose, Whole Blood 102 mg/dL (60-115)
[2024-01-04] MEDS: carvediloL 6.25 MG TABLET PO ×2 (08:11→17:02)
[2024-01-04] MEDS: Spironolactone 25 MG TABLET 200 MG PO (08:11)
[2024-01-04] MEDS: Furosemide 40 MG TABLET 80 MG PO (08:11)
[2024-01-04] MEDS: PARoxetine HCL 20 MG TABLET PO (08:12)
[2024-01-04] MEDS: buPROPion HCl XL 300 MG TAB.ER.24H PO (08:12)
[2024-01-04] MEDS: 0.9 % Sodium Chloride Flush 3 ML SYRINGE IVFLUSH ×3 (08:12→23:29)
[2024-01-04] MEDS: rifAXIMin 550 MG TABLET PO ×2 (08:12→20:24)
[2024-01-04] MEDS: Folic Acid 1 MG TABLET PO (08:12)
[2024-01-04] MEDS: Thiamine HCL 100 MG TABLET PO (08:12)
--- NOTE | 2024-01-04 08:47 | HO.PM.IMPN ---
Subjective Subjective Date of Service: 01/04/24 Interval History: No significant nursing events overnight. Improvement in leg swelling, redness and warmth but still not at baseline. Abdominal distention seen Constitutional Constitutional: Reports no additional constitutional complaints Cardiovascular Cardiovascular: Reports no additional cardiovascular complaints Respiratory Respiratory: Reports no additional respiratory complaints Gastrointestinal Gastrointestinal: Reports no additional gastrointestinal complaints Genitourinary Genitourinary: Reports no additional male genitourinary complaints Musculoskeletal Musculoskeletal: Reports arthralgias and Reports joint swelling Physical Exam Vital Signs: Vital Signs: Last Vital Signs Temp 97.4 F 01/04/24 07:12 Pulse 93 01/04/24 07:12 Resp 16 01/04/24 07:12 BP 121/73 01/04/24 07:12 Pulse Ox 95 01/04/24 07:12 O2 Del Method Room Air 01/04/24 07:12 BMI result Body Mass Index 31.2 Middle-aged male lying in bed in no distress Neck supple, no JVD Regular rate and rhythm, S1-S2 heard Regular breath sounds bilaterally, no wheezing or crackles appreciated Abdomen distended, nontender, no guarding, no rigidity Patient is awake, alert and oriented to self, place, time and person ; no focal motor deficit Psych: Normal mood Right lower extremity with swelling, warmth and pain Objective Data Active Medications Acamprosate (Acamprosate Calcium 333 Mg Tablet.Dr) 333 mg PO Q8H PRN PRN Reason: ALCOHOL ABSTINENCE Acetaminophen (Acetaminophen 325 Mg Tablet) 650 mg PO Q6H PRN PRN Reason: Pain, Mild (Pain Scale 1-3), fever or headache Apixaban (Apixaban 5 Mg Tablet) 5 mg PO BID [facility] Last Admin: 01/03/24 20:49 Dose: 5 mg Documented By: URIAH Bupropion HCl (Bupropion Hcl Xl 300 Mg Tab.Er.24h) 300 mg PO DAILY [facility] Last Admin: 01/04/24 08:12 Dose: 300 mg Documented By: SWETA Calcium Carbonate (Calcium Carbonate 750 Mg Tab.Chew) 750 mg PO Q4H PRN PRN Reason: Heartburn Carvedilol (Carvedilol 6.25 Mg Tablet) 6.25 mg PO BIDWM [facility]; Protocol Last Admin: 01/04/24 08:11 Dose: 6.25 mg Documented By: SWETA Folic Acid (Folic Acid 1 Mg Tablet) 1 mg PO DAILY [facility] Last Admin: 01/04/24 08:12 Dose: 1 mg Documented By: SWETA Furosemide (Furosemide 40 Mg Tablet) 80 mg PO DAILY [facility]; Protocol Last Admin: 01/04/24 08:11 Dose: 80 mg Documented By: SWETA Glucose (Glucose Gel 15 Gm Gel..Gram.) 15 gm PO Q15M PRN; Protocol PRN Reason: per Hypoglycemia Standing Ord. Hydromorphone HCl (Hydromorphone Hcl 2 Mg Tablet) 2 mg PO Q4H PRN PRN Reason: Pain, Severe (Pain Scale 7-10) Last Admin: 01/04/24 04:56 Dose: 2 mg Documented By: URIAH Hydroxyzine HCl (Hydroxyzine Hcl 50 Mg Tablet) 50 mg PO DAILY PRN PRN Reason: itching Ceftriaxone Sodium 1 gm/ (Sodium Chloride) 50 mls @ 100 mls/hr IV Q24H [facility] Last Infusion: 01/03/24 11:04 Dose: Infused Documented By: SWETA Dextrose (D10) 250 mls @ 750 mls/hr IV Q15M PRN; Protocol PRN Reason: per Hypoglycemia Standing Ord. Vancomycin HCl 750 mg/ Sodium (Chloride) 265 mls @ 265 mls/hr IV Q8H [facility] Last Infusion: 01/04/24 05:50 Dose: Infused Documented By: URIAH Insulin Human Lispro (Insulin Lispro 100 Unit/Ml 3 Ml Vial) 0 unit SUBCUT QIDACHS [facility]; Protocol Last Admin: 01/04/24 07:35 Dose: Not Given Documented By: SWETA Non-Admin Reason: No Insulin Coverage Lactulose (Lactulose 20 Gm/30 Ml Solution) 20 gm PO TID PRN PRN Reason: hepatic encephalopathy Lorazepam (Lorazepam 0.5 Mg Tablet) 0.5 mg PO DAILY PRN PRN Reason: anxiety attack Magnesium Hydroxide (Milk Of Magnesia 30 Ml Oral.Susp) 30 ml PO DAILY PRN PRN Reason: Constipation Melatonin (Melatonin 3 Mg Tablet) 6 mg PO BEDTIME PRN PRN Reason: Insomnia Morphine Sulfate (Morphine Sulfate 2 Mg/Ml Cartridge) 2 mg IVPUSH Q4H PRN; Protocol PRN Reason: Pain, Severe (Pain Scale 7-10) Last Admin: 01/03/24 16:24 Dose: 2 mg Documented By: SWETA Omeprazole (Omeprazole 40 Mg Capsule.Dr) 40 mg PO DAILY@0630 [facility] Last Admin: 01/04/24 05:52 Dose: 40 mg Documented By: URIAH Ondansetron HCl (Ondansetron Hcl 4 Mg/2 Ml Vial) 4 mg IVPUSH Q8H PRN PRN Reason: Nausea and Vomiting Oxycodone HCl (Oxycodone Hcl Immed Release 5 Mg Tablet) 5 mg PO Q6H PRN PRN Reason: Pain, Severe (Pain Scale 7-10) Paroxetine HCl (Paroxetine Hcl 20 Mg Tablet) 20 mg PO DAILY [facility] Last Admin: 01/04/24 08:12 Dose: 20 mg Documented By: SWETA Pharmacy Consult (Consult Rx Vancomycin Dosing) 1 each MISCELLANE DAILY PRN PRN Reason: Consult order Rifaximin (Rifaximin 550 Mg Tablet) 550 mg PO BID [facility] Last Admin: 01/04/24 08:12 Dose: 550 mg Documented By: SWETA Sodium Chloride (0.9 % Sodium Chloride Flush 3 Ml Syringe) 3 ml IVFLUSH QSHIFT [facility] Last Admin: 01/04/24 08:12 Dose: 3 ml Documented By: SWETA Spironolactone (Spironolactone 25 Mg Tablet) 200 mg PO DAILY [facility]; Protocol Last Admin: 01/04/24 08:11 Dose: 200 mg Documented By: SWETA Thiamine HCl (Thiamine Hcl 100 Mg Tablet) 100 mg PO DAILY [facility] Last Admin: 01/04/24 08:12 Dose: 100 mg Documented By: SWETA Labs 01/03/24 05:18 01/04/24 05:24 Labs: Laboratory Results - last 24 hr 01/03/24 01/03/24 01/03/24 11:03 11:47 16:19 Estim Creat Clear Calc Estimated GFR POC Glucose 128 H 112 Random Vancomycin 13.7 L 01/03/24 01/04/24 01/04/24 20:12 05:24 07:18 Estim Creat Clear Calc 153.4 Estimated GFR > 60 POC Glucose 120 H 102 Random Vancomycin Microbiology Microbiology Results: Microbiology 01/02/24 09:36 Blood Culture - Preliminary Blood - Venous No growth after 24 hours. 01/02/24 09:36 Blood Culture - Preliminary Blood - Venous No growth after 24 hours. Assessment and Plan (1) Cellulitis: Status: Acute Plan This is a 58-year-old male with pertinent history of alcoholic cirrhosis, history of PE on Eliquis, insulin-dependent diabetes mellitus, mood disorder, gastroesophageal reflux disease who presents to the emergency department for concerns of right leg infection. #. Right lower extremity cellulitis with right knee joint effusion concerning for ?recurrent septic arthritis: Is noncompliant with p.o. antibiotics (did not finish previous antibiotic course for septic arthritis). Continue empiric IV vancomycin and ceftriaxone (start date: 01/01). Venous Doppler negative for DVT. No surgical intervention as per Orthopedic surgery, awaiting Infectious Disease input. #. History of PE: Continue Eliquis. #. Insulin-dependent diabetes mellitus: Initiating Accu-Cheks with sliding scale insulin. Patient not taking his Lantus at home #. Alcoholic cirrhosis: On rifaximin, thiamine, folate and diuretics. Lactulose p.r.n. Abdominal distention seen, will obtain imaging. If significant ascites seen on imaging, will need paracentesis #. Gastroesophageal reflux disease: On PPI and sucralfate #. Mood disorder: Continue home mood stabilizers DVT prophylaxis: Eliquis Full code Reason for continued hospitalization: IV antibiotics (as above), which is not possible in a lesser acute setting. Infectious disease evaluation pending Quality Stroke Does the patient have a stroke diagnosis?: No VTE Prior VTE?: No VTE Risk Level:: Medical - moderate - high VTE Device Contraindication: N/A - Device Ordered VTE Drug Contraindication: Treatment Not Indicated
[2024-01-04] MEDS: cefTRIAXone sodium 1 GM in 0.9 % Sodium Chloride 50 ML IV (10:31)
[2024-01-04 11:16] LABS: Glucose, Whole Blood 116 mg/dL (60-115)
--- NOTE | 2024-01-04 11:22 | MHC.CM.PN ---
EMR REVIEWED AND PER MD ROUNDS, PT IS NOT MEDICALLY CLEARED FOR DC (WILL NEED PARACENTESIS TODAY, ID CONSULT PENDING) CM WILL CONTINUE TO FOLLOW FOR ANY CHANGE TO DC PLAN/NEEDS.
[2024-01-04 11:24] LABS: Vancomycin Random 15.8 mcg/mL (15-20)
--- NOTE | 2024-01-04 11:49 | HE.PHANOTE ---
RE: VANCO DOSING Trough came back as 15.8 which is higher than predicted 13.5. Continue with dose of 750 mg q8h, next random is scheduled for 01/05/24 @1100.
--- NOTE | 2024-01-04 12:42 | HO.WOUND ---
Wound Consult: Initial 58yr old? [place] [facility] [place] See progress notes and H&P for detailed history.? Wound consult placed for Left Knee Abrasion.? Patient agreeable to assessment and photo documentation.? Patient reports it is from a fall. Left Knee Etiology: ??Present on Admission Measurements: 1.2cm x 1.2cm x 0.1cm Wound Bed: red dry scab stable Drainage / Odor: None Edges: ? Irregular and attached Josette wound: ? Intact No Induration, Fluctuance or Warmth noted Pain: denies Goals of Treatment: ? Foam dressing to allow for autolytic healing Recommendations: 1. Left Knee - Cleanse with NS. moist gauze or routine bathing. Pat dry. Apply foam dressing - change every 3 days. Re-consult wound care Nurse for wound deterioration or wound changes.
[2024-01-04 15:07] VITALS: BP 112/72; PULSE 89; RESP 18; TEMP 36.6; O2SAT 95
[2024-01-04 16:08] LABS: Glucose, Whole Blood 94 mg/dL (60-115)
[2024-01-04 17:01] VITALS: BP 112/75; PULSE 96; RESP 18; TEMP 36.4; O2SAT 96
[2024-01-04 19:22] VITALS: BP 106/67; PULSE 92; RESP 18; TEMP 36.7; O2SAT 97
[2024-01-04 20:03] LABS: Glucose, Whole Blood 90 mg/dL (60-115)
[2024-01-04 23:28] VITALS: BP 110/58; PULSE 98; RESP 16; TEMP 36.8; O2SAT 92
[2024-01-05] MEDS: HYDROmorphone HCl 2 MG TABLET PO ×6 (00:35→23:36)
--- NOTE | 2024-01-05 00:38 | P.CNID_ITS ---
History of Present Illness Data of Consult Service Date: 01/04/24 Requesting physician: Domenico Sultana Primary Care Provider: Martin Avilez MD HPI Reason for consult: right knee swelling He presents with right knee swelling and pain. He has bilateral leg swelling also He drinks alcohol with cirrhosis and has mood disorder. He had serratia isolate in November and was discharge December 22 on po Levaquin. He said it made him feel strange and argumentative and stopped taking it after four days? Review of Systems 2 Review of Systems: Yes all other systems are reviewed and are negative Musculoskeletal: Musculoskeletal: Reports arthralgias PMFSH Past Medical History Medical History Pulmonary nodule 1 cm or greater in diameter Pleuritic chest pain Pulmonary embolism, bilateral Cirrhosis of liver Diabetes Alcohol use disorder, moderate, dependence Recurrent left pleural effusion Pleural effusion Pericardial effusion Tachycardia Dyspnea Hydropneumothorax Pleural effusion on right Decompensation of cirrhosis of liver Cirrhosis GERD (gastroesophageal reflux disease) Esophageal varices Chronic abdominal pain Gout Peripheral neuropathy Alcoholism Elevated LFTs Family History Family History Mother Cancer Sister Cancer Surgical History Surgical History History of abdominal paracentesis Hx of esophagogastroduodenoscopy History of thoracentesis H/O colonoscopy H/O cervical spine surgery H/O hemicolectomy Social History Social History Household Members: None Household Members Other:: 1 Housing: Apartment Are you a primary care management associate to a significant other at home: No Do you presently have visiting nurse or other home services: No Alcohol intake: current Alcohol intake frequency: holidays/special occasions only Alcohol type: hard liquor Comment: counts correct Patient Tobacco Use Status: Former Tobacco user Tobacco use type: Cigarette Years Smoked: 35 e-Cigarette/Vaping Use: Never Used Second Hand Smoke Exposure: No Substance Use Type: Marijuana Advance Directives Date on File: 11/27/22 service: No Current occupational status: unemployed Meds Allergies Allergy/AdvReac Type Severity Reaction Status Date / Time No Known Drug Allergies Allergy Mild NONE Verified 01/02/24 08:30 [NO KNOWN DRUG ALLERGIES] Active Medications: Current Medications Acamprosate (Acamprosate Calcium 333 Mg Tablet.Dr) 333 mg PO Q8H PRN PRN Reason: ALCOHOL ABSTINENCE Acetaminophen (Acetaminophen 325 Mg Tablet) 650 mg PO Q6H PRN PRN Reason: Pain, Mild (Pain Scale 1-3), fever or headache Apixaban (Apixaban 5 Mg Tablet) 5 mg PO BID [facility] Last Admin: 01/04/24 20:35 Dose: Not Given Bupropion HCl (Bupropion Hcl Xl 300 Mg Tab.Er.24h) 300 mg PO DAILY [facility] Last Admin: 01/04/24 08:12 Dose: 300 mg Calcium Carbonate (Calcium Carbonate 750 Mg Tab.Chew) 750 mg PO Q4H PRN PRN Reason: Heartburn Carvedilol (Carvedilol 6.25 Mg Tablet) 6.25 mg PO BIDWM [facility]; Protocol Last Admin: 01/04/24 17:02 Dose: 6.25 mg Folic Acid (Folic Acid 1 Mg Tablet) 1 mg PO DAILY [facility] Last Admin: 01/04/24 08:12 Dose: 1 mg Furosemide (Furosemide 40 Mg Tablet) 80 mg PO DAILY [facility]; Protocol Last Admin: 01/04/24 08:11 Dose: 80 mg Glucose (Glucose Gel 15 Gm Gel..Gram.) 15 gm PO Q15M PRN; Protocol PRN Reason: per Hypoglycemia Standing Ord. Hydromorphone HCl (Hydromorphone Hcl 2 Mg Tablet) 2 mg PO Q4H PRN PRN Reason: Pain, Severe (Pain Scale 7-10) Last Admin: 01/05/24 00:35 Dose: 2 mg Hydroxyzine HCl (Hydroxyzine Hcl 50 Mg Tablet) 50 mg PO DAILY PRN PRN Reason: itching Ceftriaxone Sodium 1 gm/ (Sodium Chloride) 50 mls @ 100 mls/hr IV Q24H [facility] Last Infusion: 01/04/24 11:19 Dose: Infused Dextrose (D10) 250 mls @ 750 mls/hr IV Q15M PRN; Protocol PRN Reason: per Hypoglycemia Standing Ord. Vancomycin HCl 750 mg/ Sodium (Chloride) 265 mls @ 265 mls/hr IV Q8H [facility] Last Infusion: 01/04/24 21:32 Dose: Infused Insulin Human Lispro (Insulin Lispro 100 Unit/Ml 3 Ml Vial) 0 unit SUBCUT QIDACHS [facility]; Protocol Last Admin: 01/04/24 20:07 Dose: Not Given Lactulose (Lactulose 20 Gm/30 Ml Solution) 20 gm PO TID PRN PRN Reason: hepatic encephalopathy Lorazepam (Lorazepam 0.5 Mg Tablet) 0.5 mg PO DAILY PRN PRN Reason: anxiety attack Magnesium Hydroxide (Milk Of Magnesia 30 Ml Oral.Susp) 30 ml PO DAILY PRN PRN Reason: Constipation Melatonin (Melatonin 3 Mg Tablet) 6 mg PO BEDTIME PRN PRN Reason: Insomnia Morphine Sulfate (Morphine Sulfate 2 Mg/Ml Cartridge) 2 mg IVPUSH Q4H PRN; Protocol PRN Reason: Pain, Severe (Pain Scale 7-10) Last Admin: 01/03/24 16:24 Dose: 2 mg Omeprazole (Omeprazole 40 Mg Capsule.Dr) 40 mg PO DAILY@0630 [facility] Last Admin: 01/04/24 05:52 Dose: 40 mg Ondansetron HCl (Ondansetron Hcl 4 Mg/2 Ml Vial) 4 mg IVPUSH Q8H PRN PRN Reason: Nausea and Vomiting Oxycodone HCl (Oxycodone Hcl Immed Release 5 Mg Tablet) 5 mg PO Q6H PRN PRN Reason: Pain, Severe (Pain Scale 7-10) Paroxetine HCl (Paroxetine Hcl 20 Mg Tablet) 20 mg PO DAILY [facility] Last Admin: 01/04/24 08:12 Dose: 20 mg Pharmacy Consult (Consult Rx Vancomycin Dosing) 1 each MISCELLANE DAILY PRN PRN Reason: Consult order Rifaximin (Rifaximin 550 Mg Tablet) 550 mg PO BID [facility] Last Admin: 01/04/24 20:24 Dose: 550 mg Sodium Chloride (0.9 % Sodium Chloride Flush 3 Ml Syringe) 3 ml IVFLUSH QSHIFT [facility] Last Admin: 01/04/24 23:29 Dose: 3 ml Spironolactone (Spironolactone 25 Mg Tablet) 200 mg PO DAILY [facility]; Protocol Last Admin: 01/04/24 08:11 Dose: 200 mg Thiamine HCl (Thiamine Hcl 100 Mg Tablet) 100 mg PO DAILY [facility] Last Admin: 01/04/24 08:12 Dose: 100 mg Home Medications ?Medication ?Instructions ?Recorded ?Confirmed ?Last Taken ?Type bupropion HCl 300 mg 24 hr tablet, 300 mg PO DAILY 06/10/21 01/02/24 01/01/24 History extended release folic acid 1 mg tablet 1 mg PO DAILY 06/10/21 01/02/24 01/01/24 History thiamine HCl (vitamin B1) 100 mg 100 mg PO DAILY 06/10/21 01/02/24 01/01/24 History tablet albuterol sulfate 90 mcg/actuation 2 puff inhalation Q6H PRN 01/26/22 01/02/24 01/01/24 History aerosol inhaler (ProAir HFA) Shortness Of Breath hydroxyzine pamoate 25 mg capsule 50 mg PO DAILY PRN itching 01/26/22 01/02/24 01/01/24 History lorazepam 0.5 mg tablet 0.5 mg PO DAILY PRN anxiety attack 07/13/22 01/02/24 01/01/24 History paroxetine HCl 20 mg tablet 20 mg PO DAILY 07/13/22 01/02/24 01/01/24 History insulin glargine 100 unit/mL (3 20 unit subcut DAILY PRN elevated 11/27/22 01/02/24 01/01/24 History mL) subcutaneous pen blood sugar insulin lispro 100 unit/mL 1 sliding scale dose subcut QIDACHS 03/03/23 01/02/24 01/01/24 History subcutaneous pen acamprosate 333 mg tablet,delayed 333 mg PO Q8H PRN ALCOHOL 11/27/23 01/02/24 01/01/24 History release ABSTINENCE carvedilol 6.25 mg tablet 6.25 mg PO BIDWM 11/27/23 01/02/24 01/01/24 History lactulose 10 gram/15 mL oral 30 ml PO TID PRN hepatic 11/27/23 01/02/24 01/01/24 History solution encephalopathy hydromorphone 2 mg tablet 2 mg PO Q4H PRN severe pain 01/02/24 01/02/24 01/01/24 History (Dilaudid) omeprazole 40 mg capsule,delayed 40 mg PO DAILY@0630 01/02/24 01/02/24 01/01/24 History release Physical Exam 2 Vital Signs: Vital Signs: Last Vital Signs Temp 98.2 F 01/04/24 23:28 Pulse 98 01/04/24 23:28 Resp 16 01/04/24 23:28 BP 110/58 L 01/04/24 23:28 Pulse Ox 92 01/04/24 23:28 O2 Del Method Room Air 01/04/24 19:22 BMI result Body Mass Index 31.2 Results Labs 01/03/24 05:18 01/04/24 05:24 Labs: BMP 01/04/24 05:24 Creatinine 0.77 Microbiology Microbiology Results: Microbiology 01/02/24 09:36 Blood - Venous Blood Culture - Preliminary No growth after 48 hours. 01/02/24 09:36 Blood - Venous Blood Culture - Preliminary No growth after 48 hours. Assessment and Plan (1) Cellulitis: Qualifiers: Laterality: right Site of cellulitis: extremity Site of cellulitis of extremity: lower extremity Qualified Code(s): L03.115 - Cellulitis of right lower limb Status: Acute (2) S/P right knee arthroscopy: Status: Acute Plan Joint swelling,persistent right knee. Possible infection and/or gout If cultures negative or show sensistive serratia again then po Ceftin for two weeks 500 mg bid and treat for gout as well.
[2024-01-05 01:29] VITALS: RESP 16
[2024-01-05 06:05] LABS: MANUAL DIFF FLAG NO
[2024-01-05 06:14] LABS: Basophils Absolute Auto 0.1 X10*3/uL (0.0-0.2); Basophils Percent Auto 1.2 % (0-2); Eosinophils Absolute Auto 0.1 X10*3/uL (0.0-0.4); Eosinophils Percent Auto 2.5 % (0-4); Hematocrit 27.5 % (42.0-52.0); Hemoglobin 8.3 g/dl (14.0-18.0); Imm Gran Abs Auto 0.02 X10*3/uL (0.00-0.03); Imm Gran Pct Auto 0.4 % (0.0-0.4); Lymphocytes Percent Auto 20.3 % (20-40); Mean Corpuscular HGB Conc 30.2 g/dl (31.0-36.0); Mean Corpuscular Hemoglobin 25.9 pg (27.0-33.0); Mean Corpuscular Volume 85.7 fL (80.0-98.0); Mean Platelet Volume 9.3 fL (9.4-12.4); Monocytes Absolute Auto 0.9 X10*3/uL (0.1-1.2); Monocytes Percent Auto 17.4 % (2-11); Neutrophils Absolute Auto 2.8 x10*3/uL (2.0-8.3); Neutrophils Percent Auto 58.2 % (45-73); Platelet Count 165 X10*3/uL (160-400); Red Blood Count 3.21 X10*6/uL (4.60-5.80); Red Cell Distribution Width 17.6 % (11.0-16.0); White Blood Count 4.9 X10*3/uL (4.8-10.8)
[2024-01-05] MEDS: Omeprazole 40 MG CAPSULE.DR PO (06:27)
[2024-01-05 06:49] LABS: Creatinine Clr Calc Pharmacy 140.6; Estimated Glomerular Filt Rate > 60
[2024-01-05 06:50] LABS: Anion Gap 12 (12-20); Blood Urea Nitrogen 9 mg/dL (9-16); Carbon Dioxide 28 mmol/L (22-29); Chloride 100 mmol/L (96-108); Creatinine Clr Calc Pharmacy 140.6; Estimated Glomerular Filt Rate > 60; Glucose Random 104 mg/dL (60-115); Sodium 136 mmol/L (135-145)
[2024-01-05 07:22] VITALS: BP 124/76; PULSE 94; RESP 16; TEMP 36.5; O2SAT 96
[2024-01-05 07:31] LABS: Glucose, Whole Blood 114 mg/dL (60-115)
[2024-01-05] MEDS: buPROPion HCl XL 300 MG TAB.ER.24H PO (08:16)
[2024-01-05] MEDS: Furosemide 40 MG TABLET 80 MG PO (08:16)
[2024-01-05] MEDS: carvediloL 6.25 MG TABLET PO ×2 (08:16→17:00)
[2024-01-05] MEDS: Folic Acid 1 MG TABLET PO (08:16)
[2024-01-05] MEDS: PARoxetine HCL 20 MG TABLET PO (08:16)
[2024-01-05] MEDS: rifAXIMin 550 MG TABLET PO ×2 (08:17→20:58)
[2024-01-05] MEDS: Thiamine HCL 100 MG TABLET PO (08:17)
[2024-01-05] MEDS: Spironolactone 25 MG TABLET 200 MG PO (08:17)
[2024-01-05] MEDS: 0.9 % Sodium Chloride Flush 3 ML SYRINGE IVFLUSH ×3 (08:18→23:37)
--- NOTE | 2024-01-05 08:21 | PC.NURSE ---
Margot De La Rosa,patient states he may have a procedure today,Dr. Roberts notified
--- NOTE | 2024-01-05 09:10 | P.PNIM_ITS ---
Subjective Subjective Date of Service: 01/05/24 Interval History: f/u on right leg cellulitis and concern for septic knee Ortho doesn't think he needs arthrocentesis, has no fever blood cultures so far are negative. Redness of the leg has much improved Physical Exam 2 Vital Signs: Vital Signs: Last Vital Signs Temp 97.7 F 01/05/24 07:22 Pulse 94 01/05/24 07:22 Resp 16 01/05/24 07:22 BP 124/76 01/05/24 07:22 Pulse Ox 96 01/05/24 07:22 O2 Del Method Room Air 01/05/24 07:22 BMI result Body Mass Index 31.2 alert and oriented x 3, NAD Neck supple, no JVD Regular rate and rhythm, S1-S2 heard Regular breath sounds bilaterally, no wheezing or crackles appreciated Abdomen distended, nontender, no guarding, no rigidity Patient is awake, alert and oriented to self, place, time and person ; no focal motor deficit Psych: Normal mood Right lower extremity with swelling, warmth and pain Objective Data Active Medications Acamprosate (Acamprosate Calcium 333 Mg Tablet.Dr) 333 mg PO Q8H PRN PRN Reason: ALCOHOL ABSTINENCE Acetaminophen (Acetaminophen 325 Mg Tablet) 650 mg PO Q6H PRN PRN Reason: Pain, Mild (Pain Scale 1-3), fever or headache Apixaban (Apixaban 5 Mg Tablet) 5 mg PO BID [facility] Last Admin: 01/05/24 08:19 Dose: Not Given Documented By: TYRONE Non-Admin Reason: possible procedure, Bupropion HCl (Bupropion Hcl Xl 300 Mg Tab.Er.24h) 300 mg PO DAILY [facility] Last Admin: 01/05/24 08:16 Dose: 300 mg Documented By: TYRONE Calcium Carbonate (Calcium Carbonate 750 Mg Tab.Chew) 750 mg PO Q4H PRN PRN Reason: Heartburn Carvedilol (Carvedilol 6.25 Mg Tablet) 6.25 mg PO BIDWM [facility]; Protocol Last Admin: 01/05/24 08:16 Dose: 6.25 mg Documented By: TYRONE Folic Acid (Folic Acid 1 Mg Tablet) 1 mg PO DAILY [facility] Last Admin: 01/05/24 08:16 Dose: 1 mg Documented By: TYRONE Furosemide (Furosemide 40 Mg Tablet) 80 mg PO DAILY [facility]; Protocol Last Admin: 01/05/24 08:16 Dose: 80 mg Documented By: TYRONE Glucose (Glucose Gel 15 Gm Gel..Gram.) 15 gm PO Q15M PRN; Protocol PRN Reason: per Hypoglycemia Standing Ord. Hydromorphone HCl (Hydromorphone Hcl 2 Mg Tablet) 2 mg PO Q4H PRN PRN Reason: Pain, Severe (Pain Scale 7-10) Last Admin: 01/05/24 06:27 Dose: 2 mg Documented By: LELA Hydroxyzine HCl (Hydroxyzine Hcl 50 Mg Tablet) 50 mg PO DAILY PRN PRN Reason: itching Ceftriaxone Sodium 1 gm/ (Sodium Chloride) 50 mls @ 100 mls/hr IV Q24H [facility] Last Infusion: 01/04/24 11:19 Dose: Infused Documented By: SWETA Dextrose (D10) 250 mls @ 750 mls/hr IV Q15M PRN; Protocol PRN Reason: per Hypoglycemia Standing Ord. Insulin Human Lispro (Insulin Lispro 100 Unit/Ml 3 Ml Vial) 0 unit SUBCUT QIDACHS [facility]; Protocol Last Admin: 01/05/24 08:08 Dose: Not Given Documented By: TYRONE Non-Admin Reason: No Insulin Coverage Lactulose (Lactulose 20 Gm/30 Ml Solution) 20 gm PO TID PRN PRN Reason: hepatic encephalopathy Lorazepam (Lorazepam 0.5 Mg Tablet) 0.5 mg PO DAILY PRN PRN Reason: anxiety attack Magnesium Hydroxide (Milk Of Magnesia 30 Ml Oral.Susp) 30 ml PO DAILY PRN PRN Reason: Constipation Melatonin (Melatonin 3 Mg Tablet) 6 mg PO BEDTIME PRN PRN Reason: Insomnia Morphine Sulfate (Morphine Sulfate 2 Mg/Ml Cartridge) 2 mg IVPUSH Q4H PRN; Protocol PRN Reason: Pain, Severe (Pain Scale 7-10) Last Admin: 01/03/24 16:24 Dose: 2 mg Documented By: SWETA Omeprazole (Omeprazole 40 Mg Capsule.Dr) 40 mg PO DAILY@0630 [facility] Last Admin: 01/05/24 06:27 Dose: 40 mg Documented By: LELA Ondansetron HCl (Ondansetron Hcl 4 Mg/2 Ml Vial) 4 mg IVPUSH Q8H PRN PRN Reason: Nausea and Vomiting Oxycodone HCl (Oxycodone Hcl Immed Release 5 Mg Tablet) 5 mg PO Q6H PRN PRN Reason: Pain, Severe (Pain Scale 7-10) Paroxetine HCl (Paroxetine Hcl 20 Mg Tablet) 20 mg PO DAILY [facility] Last Admin: 01/05/24 08:16 Dose: 20 mg Documented By: TYRONE Pharmacy Consult (Consult Rx Vancomycin Dosing) 1 each MISCELLANE DAILY PRN PRN Reason: Consult order Rifaximin (Rifaximin 550 Mg Tablet) 550 mg PO BID [facility] Last Admin: 01/05/24 08:17 Dose: 550 mg Documented By: TYRONE Sodium Chloride (0.9 % Sodium Chloride Flush 3 Ml Syringe) 3 ml IVFLUSH QSHIFT [facility] Last Admin: 01/05/24 08:18 Dose: 3 ml Documented By: TYRONE Spironolactone (Spironolactone 25 Mg Tablet) 200 mg PO DAILY [facility]; Protocol Last Admin: 01/05/24 08:17 Dose: 200 mg Documented By: TYRONE Thiamine HCl (Thiamine Hcl 100 Mg Tablet) 100 mg PO DAILY [facility] Last Admin: 01/05/24 08:17 Dose: 100 mg Documented By: TYRONE Labs 01/05/24 05:36 01/05/24 05:36 Labs: Laboratory Results - last 24 hr 01/04/24 01/04/24 01/04/24 10:47 11:11 16:05 MCV MCH MCHC RDW Plt Count MPV Immature Gran % (Auto) Neut % (Auto) Lymph % (Auto) Vance % (Auto) Eos % (Auto) Baso % (Auto) Lymph # (Auto) Vance # (Auto) Eos # (Auto) Baso # (Auto) Abs Immat Gran (auto) Absolute Neuts (auto) Absolute Nucleated RBC Nucleated RBC % (auto) Anion Gap Estim Creat Clear Calc Estimated GFR POC Glucose 116 H 94 Random Glucose Calcium Random Vancomycin 15.8 01/04/24 01/05/24 01/05/24 20:00 05:36 05:36 MCV 85.7 MCH 25.9 L MCHC 30.2 L RDW 17.6 H Plt Count 165 MPV 9.3 L Immature Gran % (Auto) 0.4 Neut % (Auto) 58.2 Lymph % (Auto) 20.3 Vance % (Auto) 17.4 H Eos % (Auto) 2.5 Baso % (Auto) 1.2 Lymph # (Auto) 1.0 L Vance # (Auto) 0.9 Eos # (Auto) 0.1 Baso # (Auto) 0.1 Abs Immat Gran (auto) 0.02 Absolute Neuts (auto) 2.8 Absolute Nucleated RBC 0.000 Nucleated RBC % (auto) 0.0 Anion Gap 12 Estim Creat Clear Calc 140.6 140.6 Estimated GFR > 60 POC Glucose 90 Random Glucose Calcium Random Vancomycin 01/05/24 01/05/24 05:36 07:25 MCV MCH MCHC RDW Plt Count MPV Immature Gran % (Auto) Neut % (Auto) Lymph % (Auto) Vance % (Auto) Eos % (Auto) Baso % (Auto) Lymph # (Auto) Vance # (Auto) Eos # (Auto) Baso # (Auto) Abs Immat Gran (auto) Absolute Neuts (auto) Absolute Nucleated RBC Nucleated RBC % (auto) Anion Gap Estim Creat Clear Calc Estimated GFR > 60 POC Glucose 114 Random Glucose 104 Calcium 9.0 Random Vancomycin Microbiology Microbiology Results: Microbiology 01/02/24 09:36 Blood Culture - Preliminary Blood - Venous No growth after 48 hours. 01/02/24 09:36 Blood Culture - Preliminary Blood - Venous No growth after 48 hours. Assessment and Plan (1) Cellulitis: Status: Acute Plan 58-year-old male with pertinent history of alcoholic cirrhosis, history of PE on Eliquis, insulin-dependent diabetes mellitus, mood disorder, gastroesophageal reflux disease who presents to the emergency department for concerns of right leg infection. Right lower extremity cellulitis with right knee joint effusion concerning for ?recurrent septic arthritis: Is noncompliant with p.o. antibiotics (did not finish previous antibiotic course for septic arthritis). Continue empiric IV vancomycin and ceftriaxone (start date: 01/01). Venous Doppler negative for DVT. No surgical intervention as per Orthopedic surgery. Will likely need to finish PO Abx at this point History of PE: Continue Eliquis. Insulin-dependent diabetes mellitus: Initiating Accu-Cheks with sliding scale insulin. Patient not taking his Lantus at home Alcoholic cirrhosis: On rifaximin, thiamine, folate and diuretics. Lactulose p.r.n. Abdominal distention seen, will obtain imaging. If significant ascites seen on imaging, will need paracentesis Gastroesophageal reflux disease: On PPI and sucralfate Mood disorder: Continue home mood stabilizers DVT prophylaxis: Arleenqualyson Full code Reason for continued hospitalization: IV antibiotics (as above), which is not possible in a lesser acute setting. Infectious disease evaluation pending Quality Stroke Does the patient have a stroke diagnosis?: No VTE Prior VTE?: No VTE Risk Level:: Medical - moderate - high VTE Device Contraindication: N/A - Device Ordered VTE Drug Contraindication: Treatment Not Indicated
[2024-01-05] MEDS: cefTRIAXone sodium 1 GM in 0.9 % Sodium Chloride 50 ML IV (10:35)
--- NOTE | 2024-01-05 10:38 | PC.NURSE ---
OK to adminisrer Rj per Dr. Holcomb
[2024-01-05] MEDS: Apixaban 5 MG TABLET PO ×2 (10:44→20:58)
[2024-01-05 11:19] LABS: Glucose, Whole Blood 124 mg/dL (60-115)
[2024-01-05 11:25] LABS: Vancomycin Random 10.3 mcg/mL (15-20)
[2024-01-05] MEDS: hydrOXYzine HCL 50 MG TABLET PO (14:46)
[2024-01-05 15:20] VITALS: BP 119/71; PULSE 93; RESP 18; TEMP 36.6; O2SAT 96
[2024-01-05 16:28] LABS: Glucose, Whole Blood 107 mg/dL (60-115)
[2024-01-05 16:59] VITALS: BP 133/81; PULSE 96
[2024-01-05 19:44] VITALS: BP 128/69; PULSE 95; RESP 18; TEMP 36.3; O2SAT 95
[2024-01-05 20:27] LABS: Glucose, Whole Blood 129 mg/dL (60-115)
[2024-01-05] MEDS: oxyCODONE HCl Immed Release 5 MG TABLET PO (21:08)
[2024-01-05 23:28] VITALS: BP 123/73; PULSE 92; RESP 16; TEMP 36; O2SAT 95
[2024-01-06] MEDS: Omeprazole 40 MG CAPSULE.DR PO (05:57)
[2024-01-06] MEDS: HYDROmorphone HCl 2 MG TABLET PO ×2 (05:57→10:39)
[2024-01-06 06:54] LABS: Estimated Glomerular Filt Rate > 60
[2024-01-06 07:07] VITALS: BP 119/74; PULSE 98; RESP 16; TEMP 36.7; O2SAT 96
[2024-01-06 07:13] LABS: Glucose, Whole Blood 105 mg/dL (60-115)
[2024-01-06 08:10] VITALS: BP 118/68; PULSE 94
[2024-01-06] MEDS: buPROPion HCl XL 300 MG TAB.ER.24H PO (08:10)
[2024-01-06] MEDS: Folic Acid 1 MG TABLET PO (08:10)
[2024-01-06] MEDS: rifAXIMin 550 MG TABLET PO (08:10)
[2024-01-06] MEDS: carvediloL 6.25 MG TABLET PO (08:10)
[2024-01-06] MEDS: PARoxetine HCL 20 MG TABLET PO (08:10)
[2024-01-06] MEDS: Thiamine HCL 100 MG TABLET PO (08:10)
[2024-01-06 08:11] VITALS: BP 118/68
[2024-01-06] MEDS: Spironolactone 25 MG TABLET 200 MG PO (08:11)
[2024-01-06] MEDS: 0.9 % Sodium Chloride Flush 3 ML SYRINGE IVFLUSH (08:15)
[2024-01-06 08:16] VITALS: BP 118/68
[2024-01-06] MEDS: Furosemide 40 MG TABLET 80 MG PO (08:16)
[2024-01-06] MEDS: Apixaban 5 MG TABLET PO (08:16)
--- NOTE | 2024-01-06 08:52 | P.DS_ITS ---
DS: Providers Provider Date of Service: 01/06/24 Date of admission: 01/02/24 12:21 Primary care physician: Martin Avilez MD Consults: 01/02/24 14:13 Consult to Infectious Diseases Routine Consulting Provider: [facility] [place] [facility] Reason for consultation: ?septic arthritis Consult to Orthopedics Routine Consulting Provider: [facility] [place] Orthopedic Surgeons Reason for consultation: knee joint effusion, ?septic arthritis 01/02/24 21:18 Consult to Wound Care Routine Reason for consultation: L Knee abrasion DS: Diagnosis Discharge Diagnosis (1) Cellulitis: Status: Acute DS: Summary Hospital Course Hospital Course: Chief Complaint: leg infection This is a 58-year-old male with pertinent history of alcoholic cirrhosis, history of PE on Eliquis, insulin-dependent diabetes mellitus, mood disorder, gastroesophageal reflux disease who presents to the emergency department for concerns of right leg infection. Patient initially presented to the ED on 11/27/2023 with right knee pain and swelling. Joint aspiration was done and patient was admitted for right knee septic arthritis. Patient had a washout on 11/29 by Orthopedic surgery. Patient left against medical advice on 12/01. P.o. antibiotics was sent but patient did not take them. Returned to the ER on 12/04 for worsening right lower extremity swelling and pain. Patient underwent repeat arthroscopic lavage by Orthopedic surgery on 12/05 and was discharged with 2 weeks of p.o. levofloxacin. Knee aspirate grew Serratia. Patient states that since returning home on 12/07 he did miss his doses of p.o. levofloxacin. Patient has been noncompliant with p.o. antibiotic as he stated that it causes mood changes. Patient states his leg did not get better and he continues to have right lower extremity swelling, warmth, pain. Also has noticed swelling of the knee joint with difficulty with movement. No fever, chills, chest discomfort, palpitations, shortness of breath, abdominal pain, changes in urinary or bowel habits. Hospital course: The patient has a known history of a right knee infection from a prior hospitalization, where cultures showed Serratia. At that time, he was prescribed Levaquin for 14 days, but he reported that the medication messed me up, so he did not take it. He has now presented with some redness of the leg and knee. Blood cultures are negative, and he has been evaluated by orthopedics, who determined that there is no indication for arthrocentesis. Infectious Disease recommends Ceftin for 2 weeks and treatment for gout. Although he is not currently experiencing gouty pain, allopurinol will be prescribed. Compliance with medications, including antibiotics and all other medications, is stressed. Additionally, a routine CT of the abdomen confirmed cirrhosis and moderate ascites. The ascites is asymptomatic, so paracentesis will be avoided at this time, and the patient will continue with diuretics. Final diagnoses: Cellulitis of the leg cirrhosis of liver gout Time Attestation Discharge Coordination Time (in mins): 35 Quality: Safe Use of Opioids Does Pt have an Active Cancer Diagnosis on the Problem List?: No Quality: Stroke Does the patient have a stroke diagnosis?: No Physical Exam Vital Signs: Vital Signs: Last Vital Signs Temp 98.0 F 01/06/24 07:07 Pulse 94 01/06/24 08:10 Resp 16 01/06/24 07:07 BP 118/68 01/06/24 08:16 Pulse Ox 96 01/06/24 07:07 O2 Del Method Room Air 01/06/24 07:07 BMI result Body Mass Index 31.2 DS: Data Data Completed and Pending Completed studies during hospitalization [Text1]: \ Labs on day of discharge: Laboratory Results - last 24 hr 01/05/24 01/05/24 01/05/24 10:54 11:15 16:23 Hold Purple Top Creatinine Estim Creat Clear Calc Estimated GFR POC Glucose 124 H 107 Random Vancomycin 10.3 L 01/05/24 01/06/24 01/06/24 19:57 05:48 07:10 Hold Purple Top SEE NOTE Creatinine 0.82 Estim Creat Clear Calc 144.0 Estimated GFR > 60 POC Glucose 129 H 105 Random Vancomycin Preliminary micro results at discharge 01/02/24 09:36 Blood Culture - Preliminary Blood - Venous No growth after 48 hours. 01/02/24 09:36 Blood Culture - Preliminary Blood - Venous No growth after 48 hours. Discharge Plan Discharge Anticipated Discharge Date/Time: 01/06/24 08:53 Patient Disposition: Home, Self-Care Discharge Diagnosis: Cellulitis of the leg Referrals: Le Carpio PA-C [Physician Margin Trimmer] - 1 Week Martin Avilez MD [Primary Care Provider] - 1 Week Discharge Medications: New cefuroxime axetil 500 mg Tablet 500 mg PO Q12H Qty: 27 0RF Continued spironolactone 100 mg tablet 200 mg PO DAILY 90 Days Qty: 180 0RF Hold Instructions: Check with nephrology before restarting furosemide 40 mg tablet 80 mg PO DAILY 90 Days Qty: 180 0RF Hold Instructions: Check with nephrology before restarting Xifaxan 550 mg tablet 550 mg PO BID Qty: 56 0RF Eliquis 5 mg tablet 5 mg PO BID Qty: 56 0RF paroxetine HCl 20 mg tablet 20 mg PO DAILY acamprosate 333 mg tablet,delayed release (DR/EC) 333 mg PO Q8H PRN (Reason: ALCOHOL ABSTINENCE) carvedilol 6.25 mg tablet 6.25 mg PO BIDWM Rx Instructions: must administer with a meal/food lactulose 10 gram/15 mL solution 30 ml PO TID PRN (Reason: hepatic encephalopathy) (DME) walker Misc See Rx Instructions .Route Qty: 1 0RF Rx Instructions: As directed ondansetron 4 mg tablet,disintegrating 4 mg PO Q8H PRN (Reason: nausea and vomiting) Qty: 14 0RF ([facility]) FreeStyle Lite Strips Strip See Rx Instructions .ROUTE .MEDSUPPLY Qty: 100 2RF Rx Instructions: QID ([facility]) lancets Misc See Rx Instructions .ROUTE .MEDSUPPLY Qty: 200 2RF Rx Instructions: 4 times daily ([facility]) blood-glucose meter [FreeStyle Lite Meter] Kit See Rx Instructions .ROUTE .MEDSUPPLY Qty: 1 0RF Rx Instructions: As directed ([facility]) pen needle, diabetic [Pen Needle] 31 gauge x 5/16 needle See Rx Instructions .ROUTE .MEDSUPPLY Qty: 1200 0RF Rx Instructions: As directed insulin glargine 100 unit/mL (3 mL) insulin pen 20 unit subcut DAILY PRN (Reason: elevated blood sugar) insulin lispro 100 unit/mL insulin pen 1 sliding scale dose subcut QIDACHS Protocol: Insulin Correction Scale Less than or equal to 110 ---- Give (units): 0 111 to 150 Give (units): 0 151 to 200 Give (units): 2 201 to 250 Give (units): 4 251 to 300 Give (units): 6 301 to 350 Give (units): 8 Greater than 350 Give (units): 10 Call MD if Blood Glucose > : 350 omeprazole 40 mg capsule,delayed release(DR/EC) 40 mg PO DAILY@0630 hydromorphone [Dilaudid] 2 mg tablet 2 mg PO Q4H PRN (Reason: severe pain) Rx Instructions: Partial Fill upon patient request. hydroxyzine pamoate 25 mg capsule 50 mg PO DAILY PRN (Reason: itching) Rx Instructions: ITCHING/ANXIETY albuterol sulfate [ProAir HFA] 90 mcg/actuation HFA aerosol inhaler 2 puff inhalation Q6H PRN (Reason: Shortness Of Breath) folic acid 1 mg tablet 1 mg PO DAILY bupropion HCl 300 mg tablet extended release 24 hr 300 mg PO DAILY thiamine HCl (vitamin B1) 100 mg tablet 100 mg PO DAILY lorazepam 0.5 mg tablet 0.5 mg PO DAILY PRN (Reason: anxiety attack) Discharge Orders: Discharge Order (Routine); Ordered 01/06/24 Ordered By: Demetrius Holcomb Diet: Advance to usual diet Activity on Discharge: As tolerated Stand Alone Forms: Patient Portal Discharge page Print Language: Citizen [place] Care Plan Goals: resolution of infection in the leg and knee Health Concerns: cellulitis of the leg Plan of Treatment: take ceftin (cefuroxime) as directed and follow up with your Doctor in a week, call for appointment follow up with orthopedic office take all other medication as directed Assessment: see above Discharge Date/Time: 01/06/24 13:00
[2024-01-06 10:18] LABS: MANUAL DIFF FLAG NO
--- NOTE | 2024-01-06 10:31 | MHC.CM.PN ---
Patient medically cleared for dc home self care. Will be transported via Lyft. IMM delivered.
[2024-01-06] MEDS: cefuroxime axetiL 500 MG TABLET PO (10:35)
[2024-01-06 10:47] LABS: Anion Gap 15 (12-20); Blood Urea Nitrogen 9 mg/dL (9-16); Calcium 8.8 mg/dL (8.4-10.2); Carbon Dioxide 26 mmol/L (22-29); Chloride 98 mmol/L (96-108); Glucose Random 96 mg/dL (60-115); Potassium 4.4 mmol/L (3.3-5.1); Sodium 135 mmol/L (135-145); Uric Acid 8.1 mg/dL (3.4-7.0)
[2024-01-06 11:21] LABS: Basophils Absolute Auto 0.1 X10*3/uL (0.0-0.2); Basophils Percent Auto 1.5 % (0-2); Eosinophils Absolute Auto 0.1 X10*3/uL (0.0-0.4); Eosinophils Percent Auto 2.6 % (0-4); Hemoglobin 8.9 g/dl (14.0-18.0); Imm Gran Abs Auto 0.01 X10*3/uL (0.00-0.03); Imm Gran Pct Auto 0.2 % (0.0-0.4); Lymphocytes Percent Auto 18.4 % (20-40); Mean Corpuscular HGB Conc 30.7 g/dl (31.0-36.0); Mean Corpuscular Hemoglobin 26.4 pg (27.0-33.0); Mean Corpuscular Volume 86.1 fL (80.0-98.0); Mean Platelet Volume 9.5 fL (9.4-12.4); Neutrophils Absolute Auto 3.2 x10*3/uL (2.0-8.3); Neutrophils Percent Auto 59.3 % (45-73); Platelet Count 199 X10*3/uL (160-400); Red Blood Count 3.37 X10*6/uL (4.60-5.80); Red Cell Distribution Width 17.7 % (11.0-16.0); White Blood Count 5.4 X10*3/uL (4.8-10.8)
[2024-01-06 11:47] LABS: Glucose, Whole Blood 133 mg/dL (60-115)
== END 2024-01-06 13:00 | disposition home or self-care (01) | DRG 603 ==
LOC: HO.ED 11:48 → HO.EDOVER 12:21 → HO.S3 19:15
PROVIDERS: Admitting Provider Student in an Organized Health Care Education/Training Program; Emergency Provider Emergency Medicine; PCP Internal Medicine; Visit Provider Internal Medicine
DX: L03.115 Cellulitis of right lower limb (principal); E11.9 Type 2 diabetes mellitus without complications; K21.9 Gastro-esophageal reflux disease without esophagitis; K70.31 Alcoholic cirrhosis of liver with ascites; M10.9 Gout, unspecified; E03.9 Hypothyroidism, unspecified; T36.8X6A Underdosing of other systemic antibiotics, initial encounter; Z86.711 Personal history of pulmonary embolism; Z87.891 Personal history of nicotine dependence; Z79.4 Long term (current) use of insulin; Z79.01 Long term (current) use of anticoagulants; Z79.899 Other long term (current) drug therapy
CPT/HCPCS: 36415; 73701; 74150; 80048; 80076; 80202; 82565; 82947; 83605; 83735; 84550; 85025; 85652; 86140; 87040; 93971; 99285; J0696; J2270; J3370; Q9967

== ENCOUNTER → 2024-01-02 12:21 | Outpatient (BNV) | payer OTHER, SELFPAY | PROVIDERS: Admitting Provider Student in an Organized Health Care Education/Training Program; Emergency Provider Emergency Medicine; PCP Internal Medicine; Visit Provider Student in an Organized Health Care Education/Training Program | DX: L03.115 Cellulitis of right lower limb (principal) | CPT/HCPCS: 99223; 99232; 99239 ==

== ENCOUNTER → 2024-01-02 12:21 | Outpatient (BNV) | payer OTHER, SELFPAY | PROVIDERS: Admitting Provider Student in an Organized Health Care Education/Training Program; Emergency Provider Emergency Medicine; PCP Internal Medicine; Visit Provider Internal Medicine | DX: L03.115 Cellulitis of right lower limb (principal); Z98.890 Other specified postprocedural states | CPT/HCPCS: 99222 ==

== ENCOUNTER 2024-01-09 10:52 | Outpatient (AMB) | payer OTHER, SELFPAY ==
--- NOTE | 2024-01-09 10:54 | A.OFFVIS_ITS ---
Intake Visit Reasons: PO RT knee arthroscopic lavage 11/30/23 NE Intake Note: Akash is a 58 year old male who presents today for a post op appointment s/p RT knee arthroscopic lavage 11/30/23 NE. Patient reports he is still having pain in his right knee. He states that his pain is a 7.5 out of 10 on the pain scale. Allergies No Known Drug Allergies [NO KNOWN DRUG ALLERGIES] Allergy (Mild, Verified 01/09/24 10:57) NONE HPI HPI PO RT knee arthroscopic lavage 11/30/23 NE: Details: 61-year-old male who presents in the office today 1 month status post right knee arthroscopic lavage, which was performed on 12/06/[address] Mosher. I last saw the patient in the office on 12/13/2023 when the patient was to continue oral antibiotics. A refill for hydromorphone 2 mg PO Q6H PRN was sent to the pharmacy for a one-time refill. ? ? The patient presented to the ED on 01/02/2024 with a complaint that his right lower extremity ?was getting worse? He confirmed in the ED he did not take the antibiotic as prescribed and missed the last four doses due to it making him ?weird and angry at home?. The patient was admitted to the hospital from 01/02/2024-01/06/2024 and treated by infectious disease for cellulitis. Upon discharge the patient was prescribed cefuroxime axetil 500 mg PO Q12H. ? ? While in the office today, the patient reports having continued pain in the right knee. He states his pain is a 7.5/10 in the office today. ? ? Patient has a significant medical history of diabetes mellitus. ? PFSH Medical History Pulmonary nodule 1 cm or greater in diameter Pleuritic chest pain Pulmonary embolism, bilateral Cirrhosis of liver Diabetes Alcohol use disorder, moderate, dependence Recurrent left pleural effusion Pleural effusion Pericardial effusion Tachycardia Dyspnea Hydropneumothorax Pleural effusion on right Decompensation of cirrhosis of liver Cirrhosis GERD (gastroesophageal reflux disease) Esophageal varices Chronic abdominal pain Gout Peripheral neuropathy Alcoholism Elevated LFTs Surgical History History of abdominal paracentesis Hx of esophagogastroduodenoscopy History of thoracentesis H/O colonoscopy H/O cervical spine surgery H/O hemicolectomy Family History Mother Cancer Sister Cancer Social History Household Members: None Household Members Other:: 1 Housing: Apartment Are you a primary auto care center manager to a significant other at home: No Do you presently have visiting nurse or other home services: No Alcohol intake: current Alcohol intake frequency: holidays/special occasions only Alcohol type: hard liquor Comment: counts correct Patient Tobacco Use Status: Former Tobacco user Tobacco use type: Cigarette Years Smoked: 35 e-Cigarette/Vaping Use: Never Used Second Hand Smoke Exposure: No Substance Use Type: Marijuana Advance Directives Date on File: 11/27/22 service: No Current occupational status: unemployed Review of Systems Const All systems reviewed & are unremarkable except as noted in HPI and below Physical Exam Const General: cooperative, healthy appearing and no acute distress Resp Effort & Inspection: normal respiratory effort and able to speak in complete sentences Cardio Rate: regular rate Peripheral pulses: Peripheral pulses 2+ throughout GI Palpation (GI): Soft to palpation Skin Lesions: no lesions Rashes: no rashes Extrem Other: Right knee no erythema, mild-moderate effusion. Prior incision sites are c/d/i. Cellulitic skin changes noted mid tibia distally. Full ROM. NVI. Assessment & Plan Assessment & Plan (1) S/P right knee arthroscopy: Comment: Right knee arthroscopic lavage: 11/30/2023 and 12/06/[address] Mosher Code(s): Z98.890 - Other specified postprocedural states Category: Surgical Plan Mr. Garcia is a 61-year-old male who presents in the office today 1 month status post right knee arthroscopic lavage, which was performed on 12/06/[address] Mosher. I last saw the patient in the office on 12/13/2023 when the patient was to continue oral antibiotics. A refill for hydromorphone 2 mg PO Q6H PRN was sent to the pharmacy for a one-time refill. ? ? The patient presented to the ED on 01/02/2024 with a complaint that his right lower extremity ?was getting worse? He confirmed in the ED he did not take the antibiotic as prescribed and missed the last four doses due to it making him ?weird and angry at home?. The patient was admitted to the hospital from 01/02/2024-01/06/2024 and treated by infectious disease for cellulitis. Upon discharge the patient was prescribed cefuroxime axetil 500 mg PO Q12H. ? ? While in the office today, the patient reports having continued pain in the right knee. He states his pain is a 7.5/10 in the office today. ? ? Patient has a significant medical history of diabetes mellitus.? ? I have placed a stat referral to infectious disease. The patient requested a refill on pain medication and this was declined at this time. He should continue to take his antibiotic as prescribed. There is no additional orthopedic intervention needed at this time. Follow-up will be PRN, or sooner if needed. ? ? Ultrasound of the right lower extremity, obtained on 01/02/2024, revealed:? No DVT demonstrated in the right lower extremity.? ? CT of the right knee, obtained on 01/02/2024, revealed:? * Small knee joint effusion and thickened enhancing synovium could? represent either noninfectious or infectious synovitis.? * No evidence of osteomyelitis.? * Diffuse edema of the subcutaneous tissues of the visualized? extremity is nonspecific but cellulitis would be considered if in the? proper clinical context. There is no soft tissue abscess.? ? Orders: Referrals Infectious Disease Referral M00.9 - Pyogenic arthritis, unspecified Patient Instructions: Scribed by Vero Singh medical equipment repair technician, for Le Carpio PA-C on 01/09/2024 at 11:05 am, EST.? Coding Level of Care Code Global (78228) Diagnoses S/P right knee arthroscopy Z98.890
== END 2024-01-09 11:37 | disposition home or self-care (01) ==
PROVIDERS: PCP Internal Medicine; Visit Provider Physician Assistant
DX: Z98.890 Other specified postprocedural states (principal)
CPT/HCPCS: 99024

== ENCOUNTER → 2024-01-09 10:52 | Outpatient (BNVA) | payer OTHER, SELFPAY | PROVIDERS: PCP Internal Medicine; Visit Provider Physician Assistant | DX: M00.9 Pyogenic arthritis, unspecified (principal); M25.561 Pain in right knee; Z09 Encounter for follow-up examination after completed treatment for conditions other than malignant neoplasm; Z98.890 Other specified postprocedural states; Z79.2 Long term (current) use of antibiotics | CPT/HCPCS: 99212 ==

== ENCOUNTER 2024-01-17 07:08 | Outpatient (REF) | payer OTHER, SELFPAY ==
--- NOTE | ~2024-01-17 | XR_ITS ---
EXAMINATION: XR CHEST CLINICAL INFORMATION: Pleural effusion. COMPARISON: CT abdomen January 04, 2024 TECHNIQUE: 2 views of the chest were obtained. FINDINGS: Dense left lung base due to left pleural effusion and consolidation/atelectasis at the left lung base is seen on CT abdomen study of January 04, 2024. Right lung is normally aerated. No pulmonary vascular congestion. Heart size is normal. Cardiac and mediastinal contours are normal. XR/XR chest 2V IMPRESSION: Dense left lung base due to left pleural effusion and consolidation/atelectasis.
== END 2024-01-17 07:09 | disposition home or self-care (01) ==
LOC: HO.XRAY 07:08
PROVIDERS: PCP Internal Medicine; Visit Provider Hospitalist
DX: J90 Pleural effusion, not elsewhere classified (principal)
CPT/HCPCS: 71046

== ENCOUNTER 2024-01-23 14:08 | Outpatient (REF) | payer OTHER, SELFPAY ==
--- NOTE | ~2024-01-23 | US_ITS ---
EXAMINATION: US VENOUS ULTRASOUND WITH DOPPLER LOWER EXTREMITY, LEFT CLINICAL INFORMATION: Left leg pain COMPARISON: None available. TECHNIQUE: Ultrasound of the deep veins is performed from the hip to the calf with compression sonography and color and pulse Doppler assessment. Spectral analysis with color-flow imaging is performed. FINDINGS: There is normal venous compression and respiratory variation and augmented flow. The visualized common femoral vein, superficial femoral vein, profunda femoral vein, popliteal vein, and the trifurcation region shows no evidence of deep venous thrombosis. There is no significant popliteal fossa cyst. Subcutaneous edema seen within the thigh and calf If the patient's symptoms persist, followup ultrasound in 5 days 7 days might be of value to exclude proximal propagation from a non-visualized calf vein. US/US venous duplex LE IMPRESSION: No DVT demonstrated in the left lower extremity. Diffuse subcutaneous edema
[2024-01-23 15:59] LABS: Estimated Average Glucose 88 mg/dL; Hemoglobin A1c % 4.7 % (<6.0)
[2024-01-23 16:17] LABS: Alanine Aminotransferase 13 U/L (0-40); Albumin Level 2.9 g/dL (3.5-5.0); Alkaline Phosphatase 265 U/L (39-117); Anion Gap 10 (12-20); Aspartate Amino Transferase 40 U/L (5-37); Blood Urea Nitrogen 4 mg/dL (9-16); Calcium 8.6 mg/dL (8.4-10.2); Carbon Dioxide 26 mmol/L (22-29); Chloride 102 mmol/L (96-108); Estimated Glomerular Filt Rate > 60; Glucose Random 96 mg/dL (60-115); Potassium 3.4 mmol/L (3.3-5.1); Sodium 135 mmol/L (135-145); Total Protein 7.8 g/dL (6.5-8.0)
[2024-01-23 16:24] LABS: B Type Natriuretic Peptide 48 pg/mL (<100)
== END 2024-01-23 14:09 | disposition home or self-care (01) ==
LOC: HO.US 14:08
PROVIDERS: PCP Internal Medicine; Visit Provider Physician Assistant Medical
DX: Z13.1 Encounter for screening for diabetes mellitus (principal); M79.604 Pain in right leg; M79.605 Pain in left leg; M00.9 Pyogenic arthritis, unspecified
CPT/HCPCS: 36415; 80053; 83036; 83880; 93971; 99212

== ENCOUNTER 2024-01-23 14:53 | Outpatient (AMB) | payer OTHER, SELFPAY ==
--- NOTE | 2024-01-28 00:28 | MHC.OFFVIS ---
Intake Visit Reasons: reff ER cellulitis Allergies No Known Drug Allergies [NO KNOWN DRUG ALLERGIES] Allergy (Mild, Verified 01/09/24 10:57) NONE HPI HPI reff ER cellulitis: Details: He is feeling better. There is no redness knee. He finished cephalosporin. PFSH Medical History Pulmonary nodule 1 cm or greater in diameter Pleuritic chest pain Pulmonary embolism, bilateral Cirrhosis of liver Diabetes Alcohol use disorder, moderate, dependence Recurrent left pleural effusion Pleural effusion Pericardial effusion Tachycardia Dyspnea Hydropneumothorax Pleural effusion on right Decompensation of cirrhosis of liver Cirrhosis GERD (gastroesophageal reflux disease) Esophageal varices Chronic abdominal pain Gout Peripheral neuropathy Alcoholism Elevated LFTs Surgical History S/P right knee arthroscopy History of abdominal paracentesis Hx of esophagogastroduodenoscopy History of thoracentesis H/O colonoscopy H/O cervical spine surgery H/O hemicolectomy Family History Mother Cancer Sister Cancer Social History Household Members: None Household Members Other:: 1 Housing: Apartment Are you a primary healthcare consulting manager to a significant other at home: No Do you presently have visiting nurse or other home services: No Alcohol intake: current Alcohol intake frequency: holidays/special occasions only Alcohol type: hard liquor Comment: counts correct Patient Tobacco Use Status: Former Tobacco user Tobacco use type: Cigarette Years Smoked: 35 e-Cigarette/Vaping Use: Never Used Second Hand Smoke Exposure: No Substance Use Type: Marijuana Advance Directives Date on File: 11/27/22 service: No Current occupational status: unemployed Review of Systems Const All systems reviewed & are unremarkable except as noted in HPI and below Physical Exam Const General: cooperative Orientation/consciousness: patient oriented x3 HEENT Head: Yes normal to inspection Mouth: Normal oral and palatal mucosa present Eyes General: appearance normal, both eyes and all related structures Pupils: Equal, round and reactive pupils present Resp Effort & Inspection: normal respiratory effort Cardio Rate: regular rate Rhythm: regular rhythm GI Palpation (GI): Soft to palpation and nontender General: Yes no CVA tenderness Back/Spine/Pelvis Back: no CVA tenderness Skin Other: knee improved General skin exam: no rashes or lesions noted Neuro General: patient oriented x3 Cranial nerves: Yes CN's II-XII intact bilaterally and Yes Equal, round and reactive pupils present Extrem General: Yes normal to inspection Psych Appearance: grossly normal Assessment & Plan Assessment & Plan (1) Septic arthritis of knee, right: Comment: Serratia marcescens,improved No further treatment at this time. Code(s): M00.9 - Pyogenic arthritis, unspecified Category: Medical Plan: as above Plan as above Coding Level of Care Code Est Pt Level 3 (62279) Diagnoses Septic arthritis of knee, right M00.9
== END 2024-01-23 15:45 | disposition home or self-care (01) ==
LOC: HO.HID 14:53
PROVIDERS: PCP Internal Medicine; Visit Provider Internal Medicine
DX: M00.9 Pyogenic arthritis, unspecified (principal)
CPT/HCPCS: 99213

== ENCOUNTER 2024-02-04 09:59 | Outpatient (REF) | payer OTHER, SELFPAY ==
--- NOTE | ~2024-02-04 | US_ITS ---
EXAMINATION: US ABDOMEN LIMITED CLINICAL INFORMATION: Cholesterolosis of the gallbladder. Surveillance of gallbladder polyps. Very high operative risk patient with multiple comorbidities. COMPARISON: CT abdomen 01/04/2024, MRI abdomen 11/29/2023, ultrasound abdomen 07/20/2023, x-ray abdomen 07/05/2023 TECHNIQUE: Real-time imaging of the right upper quadrant abdominal viscera. FINDINGS: PANCREAS: Limited. The visualized pancreatic head and proximal body are normal in appearance. The remainder of the pancreas is obscured from visualization by the overlying bowel gas. LIVER: The liver is diminutive. The liver contour is lobular. Parenchymal echogenicity is heterogeneously increased. No focal hepatic lesion. There is no intrahepatic biliary duct dilatation seen. GALLBLADDER: The gallbladder is physiologically distended. A 9 mm gallstone is seen. No evidence of pericholecystic fluid. COMMON BILE DUCT: Normal in caliber measuring 0.3 cm in diameter. RIGHT KIDNEY: No hydronephrosis or renal calculi. At the interpolar aspect, a 1.2 x 1.0 x 1.3 cm cyst is seen, with wall calcification. This is diminished from prior ultrasound examinations including 07/21/2022, and it is considered benign. The kidney measures 12.1 cm in maximum dimension. FREE FLUID: None. US/US abdomen limited IMPRESSION: 1. There is a cirrhotic appearance of the liver. No focal hepatic mass or intrahepatic biliary ductal dilatation is seen. 2. There is cholelithiasis. 3. There is a diminished, benign mildly complex right renal interpolar cyst, with wall calcification. 4. Technically limited ultrasound examination of the pancreas.
[2024-02-04 11:08] LABS: Hematocrit 28.4 % (42.0-52.0); Hemoglobin 8.9 g/dl (14.0-18.0); Mean Corpuscular HGB Conc 31.3 g/dl (31.0-36.0); Mean Corpuscular Hemoglobin 25.7 pg (27.0-33.0); Mean Corpuscular Volume 82.1 fL (80.0-98.0); Mean Platelet Volume 9.2 fL (9.4-12.4); Platelet Count 195 X10*3/uL (160-400); Red Blood Count 3.46 X10*6/uL (4.60-5.80)
== END 2024-02-04 10:00 | disposition home or self-care (01) ==
LOC: HO.US 09:59
PROVIDERS: Absent Provider Internal Medicine; PCP Internal Medicine; Visit Provider Surgery
DX: Z13.89 Encounter for screening for other disorder (principal)
CPT/HCPCS: 36415; 76705; 85027

== ENCOUNTER 2024-02-04 10:25 | Day surgery (SDC) | payer OTHER, SELFPAY ==
--- NOTE | ~2024-02-04 | US_ITS ---
Ultrasound paracentesis History: Ascites. Risks and benefits and possible complications were discussed with the patient and consent form was signed. A safe pocket of ascitic fluid was identified using ultrasound guidance, and the overlying skin was marked. The abdomen prepped and draped in sterile fashion. 1% lidocaine was used as a local anesthetic. Using ultrasound guidance, a 5 fr catheter was placed into the ascitic pocket. 7.8 liters of yellow fluid was removed passively. The catheter was then removed. 50 mg of albumin was administered to the patient. A few entry level sales representative images from before and after the examination were obtained. The procedure was performed by Lenard Sandra PA-C and supervised by Dr. El. US/US paracentesis abd w/image Impression: Ultrasound-guided paracentesis as described above. No immediate complications
[2024-02-04 10:48] VITALS: BP 135/80; PULSE 95; RESP 16; TEMP 36.6; O2SAT 99; BMI 32.6
[2024-02-04 11:02] LABS: Glucose, Whole Blood 107 mg/dL (60-115)
[2024-02-04 14:35] VITALS: BP 132/81; PULSE 95; RESP 16; TEMP 36.8
[2024-02-04] MEDS: Albumin Human 25 % 100 ML IV (14:42)
[2024-02-04 14:50] VITALS: BP 133/82; PULSE 93; RESP 16; TEMP 36.8; O2SAT 97
[2024-02-04 15:05] VITALS: BP 131/84; PULSE 95; RESP 16; O2SAT 98
[2024-02-04 15:19] VITALS: BP 139/82; PULSE 89; RESP 18; TEMP 36.8; O2SAT 100
== END 2024-02-04 15:22 | disposition home or self-care (01) ==
PROVIDERS: Physician Assistant Surgical; PCP Internal Medicine; Visit Provider Hospitalist
DX: R18.8 Other ascites (principal); Z79.01 Long term (current) use of anticoagulants
CPT/HCPCS: 36415; 49083; 76705; 82947; 85027; P9047

== ENCOUNTER → 2024-02-04 12:34 | Outpatient (BNV) | payer OTHER, SELFPAY | PROVIDERS: PCP Internal Medicine; Visit Provider Physician Assistant Surgical | DX: R18.8 Other ascites (principal) | CPT/HCPCS: 49083 ==

== ENCOUNTER 2024-02-05 12:57 | Outpatient (REF) | payer OTHER, SELFPAY ==
[2024-02-06 14:42] LABS: CDiff Gene PCR NEGATIVE (Negative)
[2024-02-06 15:06] LABS: Adenovirus F 40/41 Not Detected (Not Detect.); Astrovirus Not Detected (Not Detect.); Campylobacter Not Detected (Not Detect.); Cryptosporidium Not Detected (Not Detect.); Cyclospora cayetanensis Not Detected (Not Detect.); E. coli EAEC Not Detected (Not Detect.); E. coli EPEC Not Detected (Not Detect.); E. coli ETEC Not Detected (Not Detect.); E. coli STEC Not Detected (Not Detect.); Entamoeba histolytica Not Detected (Not Detect.); Giardia lamblia Not Detected (Not Detect.); Norovirus GI/GII Not Detected (Not Detect.); Plesiomonas shigelloides Not Detected (Not Detect.); Rotavirus A Not Detected (Not Detect.); Salmonella Not Detected (Not Detect.); Sapovirus Not Detected (Not Detect.); Shigella sp./EIEC Not Detected (Not Detect.); Vibrio Not Detected (Not Detect.); Vibrio Cholerae Not Detected (Not Detect.); Yersinia enterocolitica Not Detected (Not Detect.)
== END 2024-02-05 12:58 | disposition home or self-care (01) ==
LOC: HO.LNP 12:57
PROVIDERS: Visit Provider Internal Medicine
DX: R19.7 Diarrhea, unspecified (principal)
CPT/HCPCS: 87493; 87507

== ENCOUNTER 2024-02-12 10:59 | Outpatient (AMB) | payer OTHER, SELFPAY ==
[2024-02-12 11:06] VITALS: BP 102/68; PULSE 89
--- NOTE | 2024-02-12 11:06 | A.OFFVIS_ITS ---
Vital Signs 02/12/24 11:06 Weight 260 lb BP 102/68 Blood Pressure Location Rt brachial Position Sitting Pulse 89 Intake Visit Reasons: Follow up for 02/04/24 US Abd Intake Note: Patient here to discuss ABD US results from 02-04-2024. Audio Visual Production Specialist Required: No Accompanied by: Self / Same As Patient Allergies No Known Drug Allergies [NO KNOWN DRUG ALLERGIES] Allergy (Mild, Verified 02/12/24 11:07) NONE HPI Comments Details: Patient presents for follow-up. He still gets periodic paracentesis for symptomatic ascites secondary to his cirrhosis. Recent ultrasound of gallbladder essentially status quo. Patient has no upper abdominal symptoms or complaints related to his gallbladder. He is tolerating a diet. Having regular bowel habits.. Recent ultrasound just demonstrates [facility] Medical History Pulmonary nodule 1 cm or greater in diameter Pleuritic chest pain Pulmonary embolism, bilateral Cirrhosis of liver Diabetes Alcohol use disorder, moderate, dependence Recurrent left pleural effusion Pleural effusion Pericardial effusion Tachycardia Dyspnea Hydropneumothorax Pleural effusion on right Decompensation of cirrhosis of liver Cirrhosis GERD (gastroesophageal reflux disease) Esophageal varices Chronic abdominal pain Gout Peripheral neuropathy Alcoholism Elevated LFTs Surgical History S/P right knee arthroscopy History of abdominal paracentesis Hx of esophagogastroduodenoscopy History of thoracentesis H/O colonoscopy H/O cervical spine surgery H/O hemicolectomy Family History Mother Cancer Sister Cancer Social History Household Members: None Household Members Other:: 1 Housing: Apartment Are you a primary client care specialist to a significant other at home: No Do you presently have visiting nurse or other home services: No Alcohol intake: current Alcohol intake frequency: holidays/special occasions only Alcohol type: hard liquor Comment: counts correct Patient Tobacco Use Status: Former Tobacco user Tobacco use type: Cigarette Years Smoked: 35 e-Cigarette/Vaping Use: Never Used Second Hand Smoke Exposure: No Substance Use Type: Marijuana Advance Directives Date on File: 11/27/22 service: No Current occupational status: unemployed Physical Exam Vital Signs: Last Vital Signs Pulse 89 02/12/24 11:06 BP 102/68 02/12/24 11:06 GI Other: Markedly distended abdomen consistent with significant ascites. Abdomen otherwise soft and benign Assessment & Plan Assessment & Plan (1) Gallbladder polyp: Code(s): K82.4 - Cholesterolosis of gallbladder Category: Surgical Plan At present, no acute surgical issues regarding gallbladder. Patient will otherwise follow-up p.r.n.. He is to continue follow-up with his gastroenterology doctors. All questions answered. Coding Level of Care Code Est Pt Level 4 (57771) Diagnoses Gallbladder polyp K82.4
== END 2024-02-12 11:16 | disposition home or self-care (01) ==
PROVIDERS: PCP Internal Medicine; Visit Provider Surgery
DX: K82.4 Cholesterolosis of gallbladder (principal)
CPT/HCPCS: 99213

== ENCOUNTER → 2024-02-12 10:59 | Outpatient (BNVA) | payer OTHER, SELFPAY | PROVIDERS: PCP Internal Medicine; Visit Provider Surgery | DX: K82.4 Cholesterolosis of gallbladder (principal) | CPT/HCPCS: 99212 ==

== ENCOUNTER 2024-02-20 11:09 | Day surgery (SDC) | payer OTHER, SELFPAY ==
--- NOTE | ~2024-02-20 | US_ITS ---
ULTRASOUND GUIDED PARACENTESIS HISTORY: Ascites. Therapeutic and diagnostic. TECHNIQUE: Risks and benefits and possible complications were discussed with the patient and consent form was signed. A safe pocket of ascitic fluid was identified using ultrasound guidance, and the overlying skin was marked. The abdomen prepped and draped in sterile fashion. 1% lidocaine was used as a local anesthetic. Using ultrasound guidance, a 5 fr catheter was placed into the ascitic pocket. 6.0 liters of yellow fluid was removed passively. The catheter was then removed. A few artists' booking representative images from before and after the examination were obtained. A small sample of ascites was sent for laboratory analysis. The procedure was performed by Lenard Sandra PA-C and supervised by Dr. El. US/US paracentesis abd w/image IMPRESSION: Ultrasound-guided paracentesis as described above. No immediate complications Electronically signed by: Dao El MD 02/22/2024 03:00 PM EDT
[2024-02-20 12:05] VITALS: BMI 31.4
[2024-02-20 12:18] LABS: Glucose, Whole Blood 107 mg/dL (60-115)
[2024-02-20 14:15] VITALS: BP 141/87; PULSE 100; RESP 24; TEMP 36.9; O2SAT 100
[2024-02-20] MEDS: Lidocaine HCl 1 % 20 ML VIAL 5 ML SUBCUT (14:36)
[2024-02-20 14:57] LABS: MN% 96.6 %; PMN% 3.4 %; RBC Peritoneal Fluid 0.002 X10*6/uL; WBC Peritoneal Fluid 0.202 X10*3/uL
[2024-02-20 15:27] LABS: Lymphocyte Peritoneal Fl 33 %; Neutrophils Peritoneal Fluid 4 %
[2024-02-20 15:28] LABS: BF Shift QC OK YES; Man Diluent Bkgrd OK YES; Monocytes Peritoneal Fl 6 %; Other Peritioneal Fl 57 %
[2024-02-21 13:33] LABS: Total Protein Peritoneal Fluid 2.1
[2024-02-21 13:34] LABS: Glucose Peritoneal Fluid 115
== END 2024-02-20 14:46 | disposition home or self-care (01) ==
PROVIDERS: Internal Medicine Medical Oncology; PCP Orthopaedic Surgery; Visit Provider Physician Assistant Surgical
DX: R18.8 Other ascites (principal); K74.60 Unspecified cirrhosis of liver; R16.1 Splenomegaly, not elsewhere classified; E11.9 Type 2 diabetes mellitus without complications; Z80.0 Family history of malignant neoplasm of digestive organs; J90 Pleural effusion, not elsewhere classified; Z79.4 Long term (current) use of insulin; Z79.899 Other long term (current) drug therapy; Z87.891 Personal history of nicotine dependence
CPT/HCPCS: 49083; 82945; 82947; 84157; 87070; 87073; 87205; 88112; 88305; 88341; 88342; 89051; C1729; P9047

== ENCOUNTER → 2024-02-20 12:59 | Outpatient (BNV) | payer OTHER, SELFPAY | PROVIDERS: PCP Orthopaedic Surgery; Visit Provider Radiology Diagnostic Radiology | DX: R18.8 Other ascites (principal) | CPT/HCPCS: 49083 ==

== ENCOUNTER 2024-02-21 13:44 | Emergency (ER) | payer OTHER, SELFPAY ==
[2024-02-21] VITALS (7 sets, daily range): BP systolic 110–161; BP diastolic 75–95; PULSE 102–120; RESP 16–20; TEMP 36.8–37.1; O2SAT 97–100; BMI 29.5
--- NOTE | ~2024-02-21 | XR_ITS ---
EXAMINATION: XR CHEST CLINICAL INFORMATION: Chest pain, hematemesis COMPARISON: Chest x-ray on 01/17/2024 TECHNIQUE: Frontal view of the chest was obtained. FINDINGS: HEART & VASCULARITY: There are normal cardiac size and pulmonary vascularity. LUNGS: Unchanged crescent-shaped asymmetric density is seen in lateral posterior mid and lower lung field. A round masslike alveolar density is seen in medial left lower lung retrocardiac region measuring 5.0 cm in diameter. No pneumothorax is seen. BONES: Bony skeleton is intact. XR/XR chest 1V IMPRESSION: Unchanged moderate loculated left pleural effusion and round masslike left retrocardiac alveolar density, reported as possible round atelectasis on FDG PET/CT scan on 10/09/2023. Electronically signed by: Andriy Manuel MD 02/21/2024 05:03 PM EDT
--- NOTE | 2024-02-21 13:52 | ECG_ITS ---
Test Reason : chest pain Blood Pressure : / mmHG Vent. Rate : 111 BPM Atrial Rate : 111 BPM P-R Int : 166 ms QRS Dur : 076 ms QT Int : 352 ms P-R-T Axes : 054 043 041 degrees QTc Int : 478 ms Sinus tachycardia Cannot rule out Anterior infarct , age undetermined Abnormal ECG When compared with ECG of 09-APR-2023 07:05, No significant change was found Referred By: Benji Lam Electronically Signed By:LINDA SANDERS
--- NOTE | 2024-02-21 13:52 | ED_ITS ---
HPI - General Adult General Chief complaint: GI Bleed Stated complaint: CP, VOMITTING BLOOD Time Seen by Provider: 02/21/24 13:52 History of Present Illness ED Provider: Genaro NEWMAN narrative: The patient is a 58-year-old male with a history of chronic liver disease who has known varices and previous variceal bleeding and also has a history of ascites. He also has a history of pulmonary emboli and is on oral anticoagulation with apixaban. The patient had a paracentesis as an outpatient here at the hospital yesterday. The patient says that he has been vomiting fairly bright red blood this morning since 06:00. He has had several episodes of vomiting. He says that despite the vomiting of blood he took his dose of apixaban this morning. Ultimately he called an ambulance. He says that he has had a previous episode of variceal bleeding and that he vomited blood in a similar manner at that time. He says he also has epigastric pain today which she did not have when he had his previous episode of variceal bleeding. The patient was apparently given a dose of aspirin by paramedics in route to the hospital because of what seemed to possibly be chest pain. Related Data Home Medications ?Medication ?Instructions ?Recorded ?Confirmed bupropion HCl 300 mg 24 hr tablet, 300 mg PO DAILY 06/10/21 02/19/24 extended release folic acid 1 mg tablet 1 mg PO DAILY 06/10/21 02/19/24 thiamine HCl (vitamin B1) 100 mg 100 mg PO DAILY 06/10/21 02/19/24 tablet albuterol sulfate 90 mcg/actuation 2 puff inhalation Q6H PRN 01/26/22 02/19/24 aerosol inhaler (ProAir HFA) Shortness Of Breath hydroxyzine pamoate 25 mg capsule 50 mg PO DAILY PRN itching 01/26/22 02/19/24 lorazepam 0.5 mg tablet 0.5 mg PO DAILY PRN anxiety attack 07/13/22 02/19/24 paroxetine HCl 20 mg tablet 20 mg PO DAILY 07/13/22 02/19/24 insulin glargine 100 unit/mL (3 20 unit subcut DAILY PRN elevated 11/27/22 02/19/24 mL) subcutaneous pen blood sugar insulin lispro 100 unit/mL 1 sliding scale dose subcut QIDACHS 03/03/23 02/19/24 subcutaneous pen acamprosate 333 mg tablet,delayed 333 mg PO Q8H PRN ALCOHOL 11/27/23 02/19/24 release ABSTINENCE lactulose 10 gram/15 mL oral 30 ml PO TID PRN hepatic 11/27/23 02/19/24 solution encephalopathy hydromorphone 2 mg tablet 2 mg PO Q4H PRN severe pain 01/02/24 02/19/24 (Dilaudid) Previous Rx's ?Medication ?Instructions ?Recorded blood sugar diagnostic (FreeStyle #100 ea 10/30/22 Lite Strips) blood-glucose meter (FreeStyle #1 ea 10/30/22 Lite Meter kit) lancets #200 ea 10/30/22 ondansetron 4 mg disintegrating 4 mg PO Q8H PRN nausea and 10/30/22 tablet vomiting #14 tabs pen needle, diabetic 31 gauge x #1,200 ea 10/31/22 5/16 (Pen Needle) spironolactone 100 mg tablet 200 mg (2 x 100 mg) PO DAILY 90 03/14/23 days #180 tabs furosemide 40 mg tablet 80 mg (2 x 40 mg) PO DAILY 90 days 05/07/23 #180 tabs walker #1 ea 12/04/23 apixaban 5 mg tablet (Eliquis) 5 mg PO BID #56 tabs 12/12/23 cefuroxime axetil 500 mg tablet 500 mg PO Q12H #27 tabs 01/06/24 apixaban 2.5 mg tablet (Eliquis) 2.5 mg PO BID 30 days #60 tabs 01/28/24 carvedilol 6.25 mg tablet 6.25 mg PO BID #56 tabs 02/18/24 omeprazole 40 mg capsule,delayed 40 mg PO DAILY #28 caps 02/18/24 release rifaximin 550 mg tablet (Xifaxan) 550 mg PO BID #56 tabs 02/18/24 Allergies Allergy/AdvReac Type Severity Reaction Status Date / Time No Known Drug Allergies Allergy Mild NONE Verified 02/21/24 14:43 [NO KNOWN DRUG ALLERGIES] Review of Systems 2 Review of Systems: Yes all other systems are reviewed and are negative PMFSH Past Medical History Medical History Pulmonary nodule 1 cm or greater in diameter Pleuritic chest pain Pulmonary embolism, bilateral Cirrhosis of liver Diabetes Alcohol use disorder, moderate, dependence Recurrent left pleural effusion Pleural effusion Pericardial effusion Tachycardia Dyspnea Hydropneumothorax Pleural effusion on right Decompensation of cirrhosis of liver Cirrhosis GERD (gastroesophageal reflux disease) Esophageal varices Chronic abdominal pain Gout Peripheral neuropathy Alcoholism Elevated LFTs Surgical History S/P right knee arthroscopy History of abdominal paracentesis Hx of esophagogastroduodenoscopy History of thoracentesis H/O colonoscopy H/O cervical spine surgery H/O hemicolectomy Family History Family History Mother Cancer Sister Cancer Social History Social History (Updated 02/19/24 @ 13:32 by Felix Craft) Household Members: None Household Members Other:: 1 Housing: Apartment Are you a primary vehicle care specialist to a significant other at home: No Do you presently have visiting nurse or other home services: No Alcohol intake: current Alcohol intake frequency: holidays/special occasions only Alcohol type: hard liquor Comment: counts correct Patient Tobacco Use Status: Former Tobacco user Tobacco use type: Cigarette Years Smoked: 35 Smoked in Last 30 Days: No e-Cigarette/Vaping Use: Never Used Second Hand Smoke Exposure: No Use of substances other than those prescribed or required for medical reasons: No Substance Use Type: Marijuana Advance Directives: Yes Advance Directives on File: Yes Advance Directives Date on File: 11/27/22 Do you have a plan to hurt others: No Plan service: No Current occupational status: unemployed Physical Exam ED Vital Signs: Vital Signs - 24 hr 02/21/24 14:36 02/21/24 15:04 02/21/24 17:03 Temperature 98.3 F Pulse Rate 116 H 116 H 103 H Respiratory Rate 20 20 17 Blood Pressure 120/75 120/75 144/81 H Pulse Oximetry 98 98 98 Oxygen Delivery Method Room Air Room Air Room Air 02/21/24 18:36 02/21/24 19:27 02/21/24 19:34 Temperature 98.6 F 98.7 F Pulse Rate 111 H 103 H 104 H Respiratory Rate 16 18 18 Blood Pressure 150/91 H 161/95 H 128/83 Pulse Oximetry 98 100 99 Oxygen Delivery Method Room Air Room Air Room Air BMI result Body Mass Index 29.5 Const Other: The patient is awake and alert. He is pleasant and cheerful. He does not appear in obvious distress. He looks somewhat chronically ill. HENMT Other: Face is symmetrical. Mucous membranes moist. Airway is clear. Eyes Other: Pupils are round equal, conjunctivae are clear, extraocular movements intact. Neck Other: No obvious JVD Resp Effort & Inspection: normal respiratory effort Auscultation: clear to auscultation bilaterally Cardio Rate: tachycardic Rhythm: regular rhythm Heart sounds: S1 normal heart sound present and S2 normal heart sound present GI Other: The abdomen is soft and nontender. Skin Other: The skin is sallow. There is nonpitting edema of the lower legs. Neuro Other: The patient is awake and alert with a normal mental status. Cranial nerves are grossly intact. He moves his extremities normally and seems grossly neurologically intact. Extrem Other: The patient's lower legs are somewhat thick with nonpitting edema. No asymmetry. No tenderness. Medications Administered Generic Name Dose Route Start Last Admin Trade Name Freq PRN Reason Stop Dose Admin Octreotide Acetate 500 mcg/ 501 mls @ 50.1 mls/hr 02/21/24 14:30 02/21/24 14:27 Sodium Chloride IVCONT 50 mcg/hr .Q10H RYAN 50.1 mls/hr Administration 50 MCG/HR Discontinued Medications Generic Name Dose Route Start Last Admin Trade Name Freq PRN Reason Stop Dose Admin Ceftriaxone Sodium 1 gm/ 50 mls @ 100 mls/hr 02/21/24 13:56 02/21/24 17:42 Sodium Chloride IV 02/21/24 14:25 Infused ONCE ONE Infusion Sodium Chloride 100 mls @ 100 mls/hr 02/21/24 14:24 02/21/24 18:29 Ns IV 02/21/24 15:23 Infused ONCE ONE Infusion Sodium Chloride 100 mls @ 100 mls/hr 02/21/24 14:24 02/21/24 18:29 Ns IV 02/21/24 15:23 Infused ONCE ONE Infusion Sodium Chloride 100 mls @ 100 mls/hr 02/21/24 14:30 02/21/24 18:29 Ns IV 02/21/24 15:29 Infused ONCE ONE Infusion Sodium Chloride 100 mls @ 100 mls/hr 02/21/24 14:30 02/21/24 18:29 Ns IV 02/21/24 15:29 Infused ONCE ONE Infusion Sodium Chloride 100 mls @ 100 mls/hr 02/21/24 14:30 02/21/24 18:30 Ns IV 02/21/24 15:29 Infused ONCE ONE Infusion Sodium Chloride 100 mls @ 100 mls/hr 02/21/24 14:30 02/21/24 18:30 Ns IV 02/21/24 15:29 Infused ONCE ONE Infusion Prothrombin Complex Concent ( 80 mls @ 480 mls/hr 02/21/24 14:31 02/21/24 17:43 Human) 2,000 unit/ IV IV 02/21/24 14:40 Infused Miscellaneous Supplies .Q10M ONE Infusion Erythromycin Lactobionate 250 100 mls @ 100 mls/hr 02/21/24 14:56 02/21/24 17:16 mg/ Sodium Chloride IV 02/21/24 15:55 Not Given ONCE ONE Metoclopramide HCl 10 mg 02/21/24 14:24 02/21/24 14:27 Metoclopramide Hcl 10 Mg/2 Ml Vial IVPUSH 02/21/24 14:25 10 mg ONCE ONE Administration Octreotide Acetate 50 mcg 02/21/24 13:55 02/21/24 14:27 Octreotide Acetate 100 Mcg/Ml Ampul IVPUSH 02/21/24 13:56 50 mcg ONCE ONE Administration Ondansetron HCl 4 mg 02/21/24 18:00 02/21/24 18:29 Ondansetron Hcl 4 Mg/2 Ml Vial IVPUSH 02/21/24 18:01 4 mg ONCE ONE Administration Pantoprazole Sodium 80 mg 02/21/24 13:53 02/21/24 14:10 Pantoprazole Sodium 40 Mg/10 Ml Vial IVPUSH 02/21/24 13:54 80 mg ONCE ONE Administration Medical Decision Making Medical Decision Making [facility] Narrative: The patient is a 58-year-old male with a history of alcoholic liver disease and prior variceal bleeding who was also on apixaban because of a history of pulmonary emboli who presents with vomiting of red blood. The patient was identified as probably being a recurrent variceal bleed. Initially a plan was for checking labs and transfusion. Additionally the patient was given 1 g of IV ceftriaxone, 80 mg of IV pantoprazole, 50 mcg of octreotide as well as a 50 microgram/hour octreotide drip. The patient was also given 2000 units of Kcentra to reverse his apixaban. The patient started to vomit a great deal and so a massive transfusion protocol was called. The patient's initial hemoglobin came back at 7.3, a drop from 9.12 days prior. Just before the 1st blood components were administered his hemoglobin had fallen to 6.7. As part of the massive transfusion protocol the patient received 4 units of packed red blood cells as well as 1 unit of platelets and 1 unit of FFP. Additionally Dr. Graham of Gastroenterology was consulted and originally planned to take the patient to the operating room for upper endoscopy but subsequently was concerned that the patient might have gastric varices. Dr. Graham was concerned that if gastric varices with a source of bleeding that endoscopy in the may not be effective in controlling the bleeding and therefore recommended that the patient be transferred to a tertiary care center as we did not have Interventional Radiology in case a TIPS procedure might be needed. I therefore contacted [facility]. I spoke with the on-call solar project coordination specialist who felt that he could not accept the patient until an ICU bed was available. I subsequently spoke to the ICU fellow and the patient was accepted to the medical ICU under Dr. Lim. The patient has remained hemodynamically stable.. Lab Data 02/21/24 18:44 02/21/24 18:44 Labs: Lab Results 02/21/24 02/21/24 02/21/24 Range/Units 14:14 14:21 14:41 WBC 7.2 7.9 (4.8-10.8) X10*3/uL RBC 2.94 L 2.64 L (4.60-5.80) X10*6/uL Hgb 7.3 L 6.7 L* (14.0-18.0) g/dl Hct 23.7 L 21.4 L (42.0-52.0) % MCV 80.6 81.1 (80.0-98.0) fL MCH 24.8 L 25.4 L (27.0-33.0) pg MCHC 30.8 L 31.3 (31.0-36.0) g/dl RDW 20.4 H 20.3 H (11.0-16.0) % Plt Count 232 206 (160-400) X10*3/uL MPV 8.9 L 8.3 L (9.4-12.4) fL Immature Gran % (Auto) 0.7 H (0.0-0.4) % Neut % (Auto) 68.5 (45-73) % Lymph % (Auto) 13.1 L (20-40) % Powell % (Auto) 13.2 H (2-11) % Eos % (Auto) 2.6 (0-4) % Baso % (Auto) 1.9 (0-2) % Lymph # (Auto) 0.9 L (1.2-4.9) X10*3/uL Powell # (Auto) 1.0 (0.1-1.2) X10*3/uL Eos # (Auto) 0.2 (0.0-0.4) X10*3/uL Baso # (Auto) 0.1 (0.0-0.2) X10*3/uL Abs Immat Gran (auto) 0.05 H (0.00-0.03) X10*3/uL Absolute Neuts (auto) 4.9 (2.0-8.3) x10*3/uL Absolute Nucleated RBC 0.000 0.000 (0.0-0.012) X10*3/uL Nucleated RBC % (auto) 0.0 0.0 (0.0-0.2) /100WBC Hold Purple Top SEE NOTE PT 16.2 H 16.9 H (11.1-13.3) SEC INR 1.3 H 1.4 H (0.9-1.1) Fibrinogen 239 L (259-690) MG/DL VBG pH 7.51 H (7.32-7.43) VBG pCO2 31 mmHg VBG pO2 35 mmHg VBG HCO3 25 (22-26) mmol/L VBG O2 Saturation TNP VBG Base Excess 2.8 mmol/L Sodium 135 (135-145) mmol/L Potassium 4.2 (3.3-5.1) mmol/L Chloride 105 (96-108) mmol/L Carbon Dioxide 23 (22-29) mmol/L Anion Gap 11 L (12-20) BUN 7 L (9-16) mg/dL Creatinine 0.76 (0.5-1.4) mg/dL Estim Creat Clear Calc TNP Estimated GFR > 60 Random Glucose 122 H (60-115) mg/dL Calcium 8.4 D 7.5 L D (8.4-10.2) mg/dL Magnesium 2.1 (1.6-2.6) mg/dL Total Bilirubin 1.9 H (0.0-1.0) mg/dL Direct Bilirubin 1.2 H (0.0-0.5) mg/dL AST 37 (5-37) U/L ALT 11 (0-40) U/L Alkaline Phosphatase 250 H (39-117) U/L Total Protein 6.7 (6.5-8.0) g/dL Albumin 2.7 L 2.4 L (3.5-5.0) g/dL Lipase 22 (8-78) U/L Ethyl Alcohol < 10 mg/dL Blood Type Antibody Screen Crossmatch 02/21/24 02/21/24 02/21/24 Range/Units 15:12 15:42 18:44 WBC 10.1 10.6 (4.8-10.8) X10*3/uL RBC 3.33 L D 3.57 L (4.60-5.80) X10*6/uL Hgb 8.8 L D 9.5 L (14.0-18.0) g/dl Hct 27.1 L D 29.8 L (42.0-52.0) % MCV 81.4 83.5 (80.0-98.0) fL MCH 26.4 L 26.6 L (27.0-33.0) pg MCHC 32.5 31.9 (31.0-36.0) g/dl RDW 19.0 H 18.6 H (11.0-16.0) % Plt Count 205 204 (160-400) X10*3/uL MPV 8.8 L 8.8 L (9.4-12.4) fL Immature Gran % (Auto) 0.8 H (0.0-0.4) % Neut % (Auto) 73.2 H (45-73) % Lymph % (Auto) 9.4 L (20-40) % Powell % (Auto) 13.1 H (2-11) % Eos % (Auto) 2.1 (0-4) % Baso % (Auto) 1.4 (0-2) % Lymph # (Auto) 1.0 L (1.2-4.9) X10*3/uL Powell # (Auto) 1.3 H (0.1-1.2) X10*3/uL Eos # (Auto) 0.2 (0.0-0.4) X10*3/uL Baso # (Auto) 0.1 (0.0-0.2) X10*3/uL Abs Immat Gran (auto) 0.08 H (0.00-0.03) X10*3/uL Absolute Neuts (auto) 7.4 (2.0-8.3) x10*3/uL Absolute Nucleated RBC 0.000 0.000 (0.0-0.012) X10*3/uL Nucleated RBC % (auto) 0.0 0.0 (0.0-0.2) /100WBC Hold Purple Top PT (11.1-13.3) SEC INR (0.9-1.1) Fibrinogen (259-690) MG/DL VBG pH (7.32-7.43) VBG pCO2 mmHg VBG pO2 mmHg VBG HCO3 (22-26) mmol/L VBG O2 Saturation VBG Base Excess mmol/L Sodium 136 (135-145) mmol/L Potassium 5.2 H D (3.3-5.1) mmol/L Chloride 106 (96-108) mmol/L Carbon Dioxide 22 (22-29) mmol/L Anion Gap 13 (12-20) BUN 10 (9-16) mg/dL Creatinine 0.81 (0.5-1.4) mg/dL Estim Creat Clear Calc 141.9 Estimated GFR > 60 Random Glucose 148 H (60-115) mg/dL Calcium 8.2 L D (8.4-10.2) mg/dL Magnesium (1.6-2.6) mg/dL Total Bilirubin (0.0-1.0) mg/dL Direct Bilirubin (0.0-0.5) mg/dL AST (5-37) U/L ALT (0-40) U/L Alkaline Phosphatase (39-117) U/L Total Protein (6.5-8.0) g/dL Albumin (3.5-5.0) g/dL Lipase (8-78) U/L Ethyl Alcohol mg/dL Blood Type A Positive Antibody Screen NEGATIVE Crossmatch See Detail Independent Interpretation I performed an independent interpretation of an: EKG Interpretation: EKG at 13:56 shows sinus tachycardia at 111 beats per minute. No definite acute ischemic changes. Critical Care Time Critical Care Time Critical Care Time: No Total Critical Care Time: 65 Attestation: The patient was critically ill with a high probability of imminent or life- threatening deterioration. ?I spent greater than 30 minutes of discontinuous time evaluating the patient, delivering critical care at the bedside, discussing evaluating data with consultants. ?Critical care time does not include time spent performing separately billable procedures or teaching. ?Time spent performing critical care with 65 minutes. Discharge Plan Discharge Clinical Impression: Gastrointestinal hemorrhage with hematemesis, Esophageal varices, Chronic alcoholic liver disease Patient Disposition: [facility] Transfer Details: [facility] Prescriptions: No Action spironolactone 100 mg tablet 200 mg PO DAILY 90 Days Qty: 180 0RF furosemide 40 mg tablet 80 mg PO DAILY 90 Days Qty: 180 0RF Eliquis 5 mg tablet 5 mg PO BID Qty: 56 0RF Eliquis 2.5 mg tablet 2.5 mg PO BID 30 Days Qty: 60 2RF carvedilol 6.25 mg tablet 6.25 mg PO BID Qty: 56 0RF omeprazole 40 mg capsule,delayed release(DR/EC) 40 mg PO DAILY Qty: 28 0RF Xifaxan 550 mg tablet 550 mg PO BID Qty: 56 0RF paroxetine HCl 20 mg tablet 20 mg PO DAILY acamprosate 333 mg tablet,delayed release (DR/EC) 333 mg PO Q8H PRN (Reason: ALCOHOL ABSTINENCE) lactulose 10 gram/15 mL solution 30 ml PO TID PRN (Reason: hepatic encephalopathy) (DME) walker Misc See Rx Instructions .Route Qty: 1 0RF Rx Instructions: As directed ondansetron 4 mg tablet,disintegrating 4 mg PO Q8H PRN (Reason: nausea and vomiting) Qty: 14 0RF (DME) FreeStyle Lite Strips Strip See Rx Instructions .ROUTE .MEDSUPPLY Qty: 100 2RF Rx Instructions: QID (DME) lancets Misc See Rx Instructions .ROUTE .MEDSUPPLY Qty: 200 2RF Rx Instructions: 4 times daily (DME) blood-glucose meter [FreeStyle Lite Meter] Kit See Rx Instructions .ROUTE .MEDSUPPLY Qty: 1 0RF Rx Instructions: As directed (DME) pen needle, diabetic [Pen Needle] 31 gauge x 5/16 needle See Rx Instructions .ROUTE .MEDSUPPLY Qty: 1200 0RF Rx Instructions: As directed insulin glargine 100 unit/mL (3 mL) insulin pen 20 unit subcut DAILY PRN (Reason: elevated blood sugar) insulin lispro 100 unit/mL insulin pen 1 sliding scale dose subcut QIDACHS Protocol: Insulin Correction Scale Less than or equal to 110 ---- Give (units): 0 111 to 150 Give (units): 0 151 to 200 Give (units): 2 201 to 250 Give (units): 4 251 to 300 Give (units): 6 301 to 350 Give (units): 8 Greater than 350 Give (units): 10 Call MD if Blood Glucose > : 350 hydromorphone [Dilaudid] 2 mg tablet 2 mg PO Q4H PRN (Reason: severe pain) Rx Instructions: Partial Fill upon patient request. cefuroxime axetil 500 mg Tablet 500 mg PO Q12H Qty: 27 0RF hydroxyzine pamoate 25 mg capsule 50 mg PO DAILY PRN (Reason: itching) Rx Instructions: ITCHING/ANXIETY albuterol sulfate [ProAir HFA] 90 mcg/actuation HFA aerosol inhaler 2 puff inhalation Q6H PRN (Reason: Shortness Of Breath) folic acid 1 mg tablet 1 mg PO DAILY bupropion HCl 300 mg tablet extended release 24 hr 300 mg PO DAILY thiamine HCl (vitamin B1) 100 mg tablet 100 mg PO DAILY lorazepam 0.5 mg tablet 0.5 mg PO DAILY PRN (Reason: anxiety attack) Print Language: Georgian
[2024-02-21] MEDS: Pantoprazole Sodium 40 MG/10 ML VIAL 80 MG IVPUSH (14:10)
[2024-02-21 14:19] LABS: MANUAL DIFF FLAG NO
[2024-02-21 14:25] LABS: VBG Base Excess 2.8 mmol/L; VBG HCO3 25 mmol/L (22-26); VBG pCO2 31 mmHg; VBG pH 7.51 (7.32-7.43); VBG pO2 35 mmHg
[2024-02-21] MEDS: Octreotide Acetate 100 MCG/ML AMPUL 50 MCG IVPUSH (14:27)
[2024-02-21] MEDS: Octreotide Acetate 500 MCG in 0.9 % Sodium Chloride 500 ML 50.1 MCG IVCONT (14:27)
[2024-02-21] MEDS: Metoclopramide HCl 10 MG/2 ML VIAL IVPUSH (14:27)
[2024-02-21 14:28] LABS: Basophils Absolute Auto 0.1 X10*3/uL (0.0-0.2); Basophils Percent Auto 1.9 % (0-2); Eosinophils Absolute Auto 0.2 X10*3/uL (0.0-0.4); Eosinophils Percent Auto 2.6 % (0-4); Hematocrit 23.7 % (42.0-52.0); Hemoglobin 7.3 g/dl (14.0-18.0); Imm Gran Abs Auto 0.05 X10*3/uL (0.00-0.03); Imm Gran Pct Auto 0.7 % (0.0-0.4); Lymphocytes Absolute Auto 0.9 X10*3/uL (1.2-4.9); Lymphocytes Percent Auto 13.1 % (20-40); Mean Corpuscular HGB Conc 30.8 g/dl (31.0-36.0); Mean Corpuscular Hemoglobin 24.8 pg (27.0-33.0); Mean Corpuscular Volume 80.6 fL (80.0-98.0); Mean Platelet Volume 8.9 fL (9.4-12.4); Monocytes Percent Auto 13.2 % (2-11); Neutrophils Absolute Auto 4.9 x10*3/uL (2.0-8.3); Neutrophils Percent Auto 68.5 % (45-73); Platelet Count 232 X10*3/uL (160-400); Red Blood Count 2.94 X10*6/uL (4.60-5.80); Red Cell Distribution Width 20.4 % (11.0-16.0); White Blood Count 7.2 X10*3/uL (4.8-10.8)
--- NOTE | 2024-02-21 14:30 | PC.NURSE ---
Pt vomited approx 1500ml of stella blood, pt pale and jaundiced. Dr Lam to beside. Decision to initiate MTP protocol.
[2024-02-21 14:31] LABS: INTERNATIONAL NORM RATIO 1.3 (0.9-1.1); Prothrombin Time 16.2 SEC (11.1-13.3)
[2024-02-21 14:40] LABS: Ethanol < 10 mg/dL
--- NOTE | 2024-02-21 14:40 | MHC.EDTECH ---
@[id number] CODE MTP CALLED OVERHEAD [address] REQUEST OF [address] NAYLOR
[2024-02-21 14:42] LABS: Alanine Aminotransferase 11 U/L (0-40); Albumin Level 2.7 g/dL (3.5-5.0); Alkaline Phosphatase 250 U/L (39-117); Anion Gap 11 (12-20); Aspartate Amino Transferase 37 U/L (5-37); Bilirubin Direct 1.2 mg/dL (0.0-0.5); Bilirubin Total 1.9 mg/dL (0.0-1.0); Blood Urea Nitrogen 7 mg/dL (9-16); Calcium 8.4 mg/dL (8.4-10.2); Carbon Dioxide 23 mmol/L (22-29); Chloride 105 mmol/L (96-108); Estimated Glomerular Filt Rate > 60; Glucose Random 122 mg/dL (60-115); Lipase 22 U/L (8-78); Magnesium 2.1 mg/dL (1.6-2.6); Potassium 4.2 mmol/L (3.3-5.1); Sodium 135 mmol/L (135-145); Total Protein 6.7 g/dL (6.5-8.0)
[2024-02-21 14:47] LABS: Hematocrit 21.4 % (42.0-52.0); Mean Corpuscular HGB Conc 31.3 g/dl (31.0-36.0); Mean Corpuscular Hemoglobin 25.4 pg (27.0-33.0); Mean Corpuscular Volume 81.1 fL (80.0-98.0); Mean Platelet Volume 8.3 fL (9.4-12.4); Platelet Count 206 X10*3/uL (160-400); Red Blood Count 2.64 X10*6/uL (4.60-5.80); Red Cell Distribution Width 20.3 % (11.0-16.0); White Blood Count 7.9 X10*3/uL (4.8-10.8)
[2024-02-21] MEDS: Hum Prothrombin Cplx(PCC)4Fact 2,000 UNIT in Container,Empty 0 ML 480 UNIT IV (14:47)
[2024-02-21 14:50] LABS: Hemoglobin 6.7 g/dl (14.0-18.0)
[2024-02-21 14:55] LABS: Fibrinogen 239 MG/DL (259-690); INTERNATIONAL NORM RATIO 1.4 (0.9-1.1); Prothrombin Time 16.9 SEC (11.1-13.3)
[2024-02-21 14:57] LABS: Venous Blood Gas Refer to POC result
[2024-02-21] MEDS: cefTRIAXone sodium 1 GM in 0.9 % Sodium Chloride 50 ML IV (14:57)
[2024-02-21 15:01] LABS: Albumin Level 2.4 g/dL (3.5-5.0); Calcium 7.5 mg/dL (8.4-10.2)
--- NOTE | 2024-02-21 15:16 | PM.GICN ---
History of Present Illness Data of Consult Service Date: 02/21/24 Requesting physician: Benji Lam Primary Care Provider: Unknown Physician HPI Reason for consult: UGI bleeding 58 YM with ESLD complicated by ascites, portal hypertension and known esophageal varices (status post multiple EGDs in the past with band ligation - last EGD in 07/2023) brought to [facility] by ambulance with upper GI bleed. He also has a history of pulmonary emboli and is on oral anticoagulation with apixaban. The patient had a paracentesis as an outpatient here at the hospital yesterday. Pt reported he has been vomiting BRB since 6 am this morning since 06:00. He has had several episodes of vomiting. Pt denies having a BM since this am. He says that despite the vomiting of blood he took his dose of apixaban this morning. Pt reports he was waiting for the bleeding to subside on its own and ultimately he called an ambulance. He says that he has had a previous episode of variceal bleeding and that he vomited blood in a similar manner at that time. The patient was apparently given a dose of aspirin by paramedics in route to the hospital because of what seemed to possibly be chest pain Pt stated he has cut back on drinking to 3 times a week instead of daily PAST GI HISTORY BY REVIEW OF MEDICAL RECORDS: Pt was seen by Dr Hawk on 08/15/23 Severe alcohol use disorder -Decompensated Cirrhosis (bleeding esophageal varices 11/2022, ascites, hepatic hydrothorax, hepatic encephalopathy MELD-Na 15 (03/2023 labs) Child St Class C Discussed with the pt to strongly consider follow up with addiction medicine to help with etOH use disorder treatment. Reminded that ongoing etOH use is leading to progression of liver disease. Needs to demonstrate at least 3-6 months of sobriety for transplant evaluation. - Alcohol use disorder: Most recent drink 2 DAYS ago - Had a PETH of 810 in November 2022. Again counseled extensively on etOH cessation. He tells me he will call addiction medicine to follow up with Jannet Marion. - Ascites and Peripheral Edema: Has moderate NON-tense ascites on exam today. Encouraged compliance with diuretics. Has had indiscretion to salt intake. Given sensitivity to high doses of diuretics, reinforced need to adhere to 2g Na to avoid uptitration of diuretics. Cont lasix 80mg and aldactone 200mg. Encouraged compliance with the meds. - Hepatic encephalopathy: No HE on exam today. Cont lactulose titrated to 2-3 soft bowel movements, pt advised that can increase dose as needed to titrate to effect. Cont Rifaximin. ? - Secondary prophylaxis for gastroesophageal varices: He is status post endoscopic variceal band ligation (EVBL) for BLEEDING large varices most recently in 01/16/23. Most recent EGD for secondary prophylaxis this month again showed large varices in the context of ongoing etOH use. - STOP nadolol. - Start coreg 6.25 BID - Again etOH abstinence is of paramount importance to avoid progression of portal hypertension. - HCC screening: Most recent ultrasound abdomen was in Jun 2023. Cirrhotic changes with patent PV. Next US due 12/2023. Reminder placed. - Personal hx of high risk polyps: Repeat colo earlier this year with 13 HP polyps. Due for colonoscopy 2026. - GB polyps: Has multiple GB polyps with largest one measuring 1 cm. Due to underlying cirrhosis, plan to repeat US Abd in 6 months by gen surg. Follow up in 3 months Review of Systems Review of Systems: Yes all other systems are reviewed and are negative PMFSH Past Medical History Medical History Pulmonary nodule 1 cm or greater in diameter Pleuritic chest pain Pulmonary embolism, bilateral Cirrhosis of liver Diabetes Alcohol use disorder, moderate, dependence Recurrent left pleural effusion Pleural effusion Pericardial effusion Tachycardia Dyspnea Hydropneumothorax Pleural effusion on right Decompensation of cirrhosis of liver Cirrhosis GERD (gastroesophageal reflux disease) Esophageal varices Chronic abdominal pain Gout Peripheral neuropathy Alcoholism Elevated LFTs Family History Family History Mother Cancer Sister Cancer Surgical History Surgical History S/P right knee arthroscopy History of abdominal paracentesis Hx of esophagogastroduodenoscopy History of thoracentesis H/O colonoscopy H/O cervical spine surgery H/O hemicolectomy Social History Social History Household Members: None Household Members Other:: 1 Housing: Apartment Are you a primary hearing care professional to a significant other at home: No Do you presently have visiting nurse or other home services: No Alcohol intake: current Alcohol intake frequency: 0-2 drinks per day Alcohol type: beer Comment: counts correct Patient Tobacco Use Status: Former Tobacco user Tobacco use type: Cigarette Years Smoked: 35 Smoked in Last 30 Days: Yes e-Cigarette/Vaping Use: Currently Using Second Hand Smoke Exposure: No Use of substances other than those prescribed or required for medical reasons: Yes Substance Use Type: Marijuana Advance Directives: Yes Advance Directives on File: Yes Advance Directives Date on File: 11/27/22 Do you have a plan to hurt others: No Plan service: No Current occupational status: unemployed Meds Allergies Allergy/AdvReac Type Severity Reaction Status Date / Time No Known Drug Allergies Allergy Mild NONE Verified 04/18/24 11:49 [NO KNOWN DRUG ALLERGIES] Active Medications: Current Medications Octreotide Acetate 500 mcg/ (Sodium Chloride) 501 mls @ 50.1 mls/hr IVCONT .Q10H RYAN Last Admin: 02/21/24 14:27 Dose: 50 mcg/hr, 50.1 mls/hr Sodium Chloride (Ns) 100 mls @ 100 mls/hr IV ONCE ONE Stop: 02/21/24 15:23 Sodium Chloride (Ns) 100 mls @ 100 mls/hr IV ONCE ONE Stop: 02/21/24 15:23 Sodium Chloride (Ns) 100 mls @ 100 mls/hr IV ONCE ONE Stop: 02/21/24 15:29 Sodium Chloride (Ns) 100 mls @ 100 mls/hr IV ONCE ONE Stop: 02/21/24 15:29 Sodium Chloride (Ns) 100 mls @ 100 mls/hr IV ONCE ONE Stop: 02/21/24 15:29 Sodium Chloride (Ns) 100 mls @ 100 mls/hr IV ONCE ONE Stop: 02/21/24 15:29 Erythromycin Lactobionate 250 (mg/ Sodium Chloride) 100 mls @ 100 mls/hr IV ONCE ONE Stop: 02/21/24 15:55 Home Medications ?Medication ?Instructions ?Recorded ?Confirmed ?Last Taken ?Type bupropion HCl 300 mg 24 hr tablet, 300 mg PO DAILY 06/10/21 04/18/24 04/16/24 History extended release folic acid 1 mg tablet 1 mg PO DAILY 06/10/21 04/18/24 04/16/24 History thiamine HCl (vitamin B1) 100 mg 100 mg PO DAILY 06/10/21 04/18/2424 History tablet hydroxyzine pamoate 25 mg capsule 50 mg PO DAILY PRN itching 01/26/22 04/18/24 04/16/24 History lorazepam 0.5 mg tablet 0.5 mg PO DAILY PRN anxiety attack 07/13/22 04/18/24 04/16/24 History apixaban 5 mg tablet (Eliquis) 5 mg PO BID 03/27/24 04/18/24 04/16/24 History oxycodone 5 mg tablet 5 mg PO BID PRN Pain 03/31/24 04/18/24 04/16/24 History albuterol sulfate 90 mcg/actuation 2 puff inhalation Q6H PRN 04/18/24 04/18/24 04/16/24 History aerosol inhaler Shortness Of Breath Or Wheezing Physical Exam Vital Signs: Vital Signs: Last Vital Signs Temp 98.3 F 02/21/24 15:04 Pulse 116 H 02/21/24 15:04 Resp 20 02/21/24 15:04 BP 120/75 02/21/24 15:04 Pulse Ox 98 02/21/24 15:04 O2 Del Method Room Air 02/21/24 15:04 BMI result Body Mass Index 29.5 Const: Other: The patient is awake and alert. He is pleasant and cheerful. He does not appear in obvious distress. He looks somewhat chronically ill. HENMT Other: Face is symmetrical. Mucous membranes moist. Airway is clear. Eyes Other: Pupils are round equal, conjunctivae are clear, extraocular movements intact. Neck Other: No obvious JVD Resp Effort & Inspection: normal respiratory effort Auscultation: clear to auscultation bilaterally Cardio Rate: tachycardic Rhythm: regular rhythm Heart sounds: S1 normal heart sound present and S2 normal heart sound present GI Other: The abdomen is soft and nontender. Skin Other: The skin is sallow. There is nonpitting edema of the lower legs. Neuro Other: The patient is awake and alert with a normal mental status. Cranial nerves are grossly intact. He moves his extremities normally and seems grossly neurologically intact. Extrem Other: The patient's lower legs are somewhat thick with nonpitting edema. No asymmetry. No tenderness. Results Labs 02/21/24 18:44 02/21/24 18:44 Labs: Short CBC 02/21/24 02/21/24 Range/Units 14:14 14:41 WBC 7.2 7.9 (4.8-10.8) X10*3/uL Hgb 7.3 L 6.7 L* (14.0-18.0) g/dl Hct 23.7 L 21.4 L (42.0-52.0) % Plt Count 232 206 (160-400) X10*3/uL BMP 02/21/24 02/21/24 14:14 14:41 Sodium 135 Potassium 4.2 Chloride 105 Carbon Dioxide 23 BUN 7 L Creatinine 0.76 Calcium 8.4 D 7.5 L D Liver Function 02/21/24 02/21/24 Range/Units 14:14 14:41 Total Bilirubin 1.9 H (0.0-1.0) mg/dL Direct Bilirubin 1.2 H (0.0-0.5) mg/dL AST 37 (5-37) U/L ALT 11 (0-40) U/L Alkaline Phosphatase 250 H (39-117) U/L Albumin 2.7 L 2.4 L (3.5-5.0) g/dL Assessment and Plan (1) Upper GI bleeding: Status: Acute Plan 58 YM with ESLD complicated by ascites, portal hypertension and known esophageal varices (status post multiple EGDs in the past with band ligation - last EGD in 07/2023) brought to [facility] ED by ambulance with upper GI bleed. Pt noted to have non-bleeding gastrci varices on a previous EGD He also has a history of pulmonary emboli and is on oral anticoagulation with apixaban - last dose this am. After arrival in the ED, Pt had repeated episodes of vomiting consisting of BRB He was given 4 U PRBC (Uncrossmatched), FFP, platelets and KCentra in the ED and started on IV PPI and octreotide infusion. Repeat labs showed improvement in H & H from 6.7 & 21.4 to 8.8 & 27.1 post transfusion RECOMMENDATIONS: 1. Agree with IV PPI, antiemetics and octreotide infusion 2. Given massive UGI bleed, recent use of Apixiban and a history of gastric varices on past EGD, I would recommend transfer to tertiary care facility where IR back up is available Risky to perform EGD at [facility] due to lack of IR availability incase bleeding cannot be controlled during endoscopy and an emergent TIPPS is needed. Procedures Date of Service Date of Service: 04/18/24
--- NOTE | 2024-02-21 15:44 | PC.NURSE ---
see written documentation for details
[2024-02-21 15:48] LABS: MANUAL DIFF FLAG NO
[2024-02-21 15:49] LABS: Basophils Absolute Auto 0.1 X10*3/uL (0.0-0.2); Basophils Percent Auto 1.4 % (0-2); Eosinophils Absolute Auto 0.2 X10*3/uL (0.0-0.4); Eosinophils Percent Auto 2.1 % (0-4); Hematocrit 27.1 % (42.0-52.0); Hemoglobin 8.8 g/dl (14.0-18.0); Imm Gran Abs Auto 0.08 X10*3/uL (0.00-0.03); Imm Gran Pct Auto 0.8 % (0.0-0.4); Lymphocytes Percent Auto 9.4 % (20-40); Mean Corpuscular HGB Conc 32.5 g/dl (31.0-36.0); Mean Corpuscular Hemoglobin 26.4 pg (27.0-33.0); Mean Corpuscular Volume 81.4 fL (80.0-98.0); Mean Platelet Volume 8.8 fL (9.4-12.4); Monocytes Absolute Auto 1.3 X10*3/uL (0.1-1.2); Monocytes Percent Auto 13.1 % (2-11); Neutrophils Absolute Auto 7.4 x10*3/uL (2.0-8.3); Neutrophils Percent Auto 73.2 % (45-73); Platelet Count 205 X10*3/uL (160-400); Red Blood Count 3.33 X10*6/uL (4.60-5.80); White Blood Count 10.1 X10*3/uL (4.8-10.8)
--- NOTE | 2024-02-21 17:39 | PC.NURSE ---
Pt resting comfortably; VSS. Awaiting dispo and plan for transport to [facility].
[2024-02-21] MEDS: ondansetron HCL 4 MG/2 ML VIAL IVPUSH (18:29)
--- NOTE | 2024-02-21 18:53 | PC.NURSE ---
Attempted to call [facility] x2 no answer at this time
[2024-02-21 19:12] LABS: Anion Gap 13 (12-20); Blood Urea Nitrogen 10 mg/dL (9-16); Calcium 8.2 mg/dL (8.4-10.2); Carbon Dioxide 22 mmol/L (22-29); Chloride 106 mmol/L (96-108); Creatinine Clr Calc Pharmacy 141.9; Estimated Glomerular Filt Rate > 60; Glucose Random 148 mg/dL (60-115); Potassium 5.2 mmol/L (3.3-5.1); Sodium 136 mmol/L (135-145)
[2024-02-21 19:18] LABS: Hematocrit 29.8 % (42.0-52.0); Hemoglobin 9.5 g/dl (14.0-18.0); Mean Corpuscular HGB Conc 31.9 g/dl (31.0-36.0); Mean Corpuscular Hemoglobin 26.6 pg (27.0-33.0); Mean Corpuscular Volume 83.5 fL (80.0-98.0); Mean Platelet Volume 8.8 fL (9.4-12.4); Platelet Count 204 X10*3/uL (160-400); Red Blood Count 3.57 X10*6/uL (4.60-5.80); Red Cell Distribution Width 18.6 % (11.0-16.0); White Blood Count 10.6 X10*3/uL (4.8-10.8)
--- NOTE | 2024-02-21 19:28 | MHC.EDTECH ---
This tech took over care of patient at 1900, upon my entry to room patient was in the bathroom,patient stated he went a moderate amount of liquid black stool, this tech educated patient that walking to the bathroom at this it me is not safe ,patient agreed to use commode,RN is aware, Hourly rounds and vitals completed, patient is waiting for EMS arrival to be transferred to [facility] at this time, belongings list completed by previous shift call zaidi is within reach
[2024-02-21 19:37] LABS: Appearance Urine Clear; Color Urine Dark Yellow; Glucose Urine UA Negative (Negative); Leukocyte Esterase Urine Negative (Negative); Nitrite Urine Negative (Negative); Specific Gravity - Urine 1.025 (1.005-1.025); Urine Blood Negative (Negative); Urine Ketones Trace mg/dL (Negative); Urine Protein Trace mg/dL (Neg-Trace)
--- NOTE | 2024-02-21 19:43 | PC.NURSE ---
Assumed care ofpt at 1900, pt awaiting transport to [facility] Room 9 ICU. This RN attempted to call report, previous RN attempted to call twice prior to end of shift.
[2024-02-21 20:11] LABS: Influenza A PCR NEGATIVE (Negative); Influenza B PCR NEGATIVE (Negative); Resp Syncy Virus RNA Qual PCR NEGATIVE (Negative); SARS COV2 PCR INHOUSE NEGATIVE (Negative)
== END 2024-02-22 09:40 | disposition short-term general hospital (02) ==
PROVIDERS: Emergency Provider Emergency Medicine
DX: I85.01 Esophageal varices with bleeding (principal); K92.0 Hematemesis; K70.9 Alcoholic liver disease, unspecified; R00.0 Tachycardia, unspecified; D50.0 Iron deficiency anemia secondary to blood loss (chronic); R07.89 Other chest pain; R10.13 Epigastric pain; E11.9 Type 2 diabetes mellitus without complications; R60.0 Localized edema; Z03.818 Encounter for observation for suspected exposure to other biological agents ruled out; Z86.711 Personal history of pulmonary embolism; Z87.891 Personal history of nicotine dependence; Z79.899 Other long term (current) drug therapy; Z79.4 Long term (current) use of insulin; Z79.01 Long term (current) use of anticoagulants
CPT/HCPCS: 0241U; 36415; 71045; 80048; 80076; 80307; 81003; 82040; 82310; 82803; 83690; 83735; 85025; 85027; 85384; 85610; 86850; 86900; 86901; 86920; 86923; 93005; 96361; 96365; 96366; 96375; 99285; 99291; J0171; J0330; J0696; J2354; J2405; J2470; J2765; J3010; J7168; P9016; P9017; P9073

== ENCOUNTER → 2024-02-21 14:45 | Outpatient (BNV) | payer OTHER, SELFPAY | PROVIDERS: Emergency Provider Emergency Medicine; Visit Provider Internal Medicine Gastroenterology | DX: K92.2 Gastrointestinal hemorrhage, unspecified (principal) | CPT/HCPCS: 99283 ==

== ENCOUNTER 2024-03-07 10:32 | Outpatient (AMB) | payer OTHER, SELFPAY ==
[2024-03-07 10:45] VITALS: BP 124/60; PULSE 76; O2SAT 98; BMI 31.5
--- NOTE | 2024-03-07 10:45 | MHC.OFFVIS ---
Vital Signs 03/07/24 10:45 Height 6 ft 5 in Weight 265 lb 10.512 oz BMI 31.5 BP 124/60 Blood Pressure Location Rt brachial Position Sitting Pulse 76 Pulse Source Pulse Oximeter Pulse Oximetry (%) 98 Oxygen Delivery Method Room Air Intake Visit Reasons: PET Scan Results/Solitary Pulmonary Nodule Net Maker Required: No Allergies No Known Drug Allergies [NO KNOWN DRUG ALLERGIES] Allergy (Mild, Verified 03/07/24 10:49) NONE HPI Comments Details: The patient is a 58 y/o man with a history of decompensated alcoholic cirrhosis with varices and right pleural effusion.? Was most recently discharged 11/03/2021 after hospitalization GI bleed.? Patient now complaining of several days of right-sided chest pain, sharp, worse with inspiration.? Associated with shortness of breath worse on exertion, improved with rest, progressively worsening.? Patient continues to drink alcohol, last drink was 2 days prior to presentation.? He has also noticed to be feeling shaky.? In ED CTA was negative for PE but did show moderate right-sided effusion. the patient did undergo thoracentesis demonstrating what appeared to be a transudative process, lymphocytic predominant. His lymphocyte count was elevated In the pleural fluid. The patient did feel better after the thoracentesis. He did not have any abdominal interventions. After the procedure the patient felt better and subsequently was discharged. we did review his imaging studies including his CT scan demonstrating moderate to large pleural effusion on the right side. Explained to him that this is consistent with hepatic hydrothorax. the patient does have a history of varices in addition to portal vein thrombosis. He does have a prescription for Aldactone and Lasix. We talked about the importance of taking the medication. He also needs to take additional diuretic if he is getting any weight. His kidney function is stable. We did talk about his meld score demonstrating of 3 month mortality of 20%. Patient understands that this is very serious. His only potential intervention will be to quit drinking and being referred to a transplant center. The patient did have misconceptions about liver transplants. We did re-educated about the benefits of liver transplant specially with his worsening liver failure. The patient understands that alcohol withdrawal can be very serious. Once he starts withdrawal he needs to seek medical care. the cough 02/14/2022 the patient is here for a pulmonary follow-up visit. Overall he is feeling better. He was hospitalized in he did undergo a thoracentesis. The patient did develop a complication of a hydropneumothorax. He did have a repeat CT scan of the chest after thoracentesis. It appeared that the pleura for the most part appear to be thin without any evidence of any lung entrapment. This was out the possibility of lung entrapment as a cause of the pneumothorax. The patient also appeared to have slight amount of fluid in the subdiaphragmatic area consistent with ascites. He was recently evaluated by GI and his diuretics were increased. He feels fairly well. Denies any worsening of his shortness of breath. He does not feel like he needs further thoracentesis or interventions at this time which is extremely positive. He was given good occasional GI and he understands what he needs to do to stay well as much as possible. He is scheduled to undergo repeat ultrasound of the abdomen and will also have him get an x-ray around that time. He did ask the question about the possible etiologies. I did explain that hepatic hydrothorax was the likely process in view of the other medical issues that he has and the ascites noted on the CT scan as well as a transudative fluid and the saag of 1.3. I did review his recent chest x-ray which demonstrated interval resolution of the pneumothorax which is great. The pleural effusion appears to be stable. Patient may also have an elevation of his right hemidiaphragm making the effusion appeared to be worse. 07/11/2022 the patient is here for pulmonary follow-up visit. Patient complains of significant shortness of breath. Moderate severity. She is thinking of possibly go back to the ER because the breathing is getting much worse. Even at rest. His breathing was like this last week where he was seen in the ER noted to have a recurrent left-sided pleural effusion. Again he underwent a thoracentesis draining 2 L. This time the fluid was clear. Prior to that he had the pleural effusion drain in appear to be serous sanguinous. Unclear if she had any injury to the area are from was traumatic. Yet the LDH was not significantly elevated and cytology negative. Now again he started to develop increasing shortness of breath even after just a few days after having the thoracentesis. Unfortunately in further questions he states that he ran out of his Lasix and also out doctor so he has been without it for the last several days. His urine output has decreased significantly. And I do believe that the fact that he has been without the medication has resulted in the significant rebound pleural effusion. I did call Radiology to see if we can arrange for him to get a left-sided thoracentesis done for therapeutic purposes to avoid a ER visit. They cannot do it today but they will see about tomorrow. I will send a prescription a prescription over for both his Lasix and Aldactone which she should start today. Although, initially was getting infusions on the right side and now on the left there maybe a component of self pleurodesis that may have occurred on his right side in view of the multiple thoracentesis. Still the pleural effusions are still likely related to hepatic hydrothorax with increasing abdominal girth and ascites. If there is still a question of uncertainty as far as the etiology for the pleural effusions then a thoracoscopy or video-assisted thoracoscopy may be warranted. He was already referred to thoracic surgery in the past. 09/20/2022 the patient is here for a pulmonary follow-up visit. The patient overall has been doing good from a respiratory status. The last time he underwent a thoracentesis back in 07/07/2021. It left a residual small effusion. The patient tolerated procedure well. He has not required any additional thoracentesis or paracentesis. He has continued to uses diuretic as prescribed. The additional diuretics have been effective in controlling his hepatic hydrothorax. He recently did undergo an ultrasound of the liver demonstrating the cirrhosis. Also demonstrating mild ascites and small pleural effusion. We did look at the fusion or cells. He also has a nonocclusive portal vein clot. This point it is only nonocclusive. He was referred to Hematology. The patient understands that he is about develops sudden significant lower extremity edema and ascites he has to go to the ER for evaluation. In the meantime, if the patient develops any worsening shortness of breath he is able to get a chest x-ray in that knee now in order to assess the need for thoracentesis. 12/27/2022 the patient is here for a pulmonary follow-up visit. Recently was admitted to the hospital with a upper GI bleed secondary to esophageal varices. The patient underwent endoscopy and currently doing better. The patient also has a complication of the hepatic hydrothorax. Has not required thoracentesis since he is doing better with diuresis. Now recommended he consider tips procedure. Explained to the patient if he does undergo tips the risk for the recurrent pleural effusions will decrease. the patient is working on his alcohol cessation. Currently drinking nonalcoholic beer which appears to be effective for him. Currently patient is doing well he will call he has any worsening symptoms otherwise will follow-up in 3-4 months. 04/26/2023 the patient is here for a pulmonary follow-up visit. The patient had been in the hospital he was diagnosed with a pulmonary embolism. In addition to that he had a left-sided pleural effusion. It was drained. It was a little bit more serosanguineous. Afterwards he was having some shortness of breath we did repeat the chest x-ray demonstrating interval worsening of the pleural effusion and we did request for thoracentesis. He has not have had the thoracentesis as of yet. However, he is feeling better. On examination I do appreciate some breath sounds at the left base which is reassuring. Therefore will hold off on the thoracentesis specially since he is on the blood thinners and will go ahead and repeat the x-ray in 2-3 weeks. If he has any worsening symptoms he can always get the x-ray sooner. He knows that for any procedure he would have to stop the Eliquis for a couple days. He also understands that with blood clots he needs to be on the blood thinners for at least 3 months. If not longer. The patient has had a history of blood clots I think in the portal vein system. No evidence of any lower extremity DVTs which is reassuring. He is tolerating the Eliquis without any evidence of any bleeding. Unfortunately the still drinking alcohol. We did talk about making sure that he quits drinking in order to consider the possibility of a lung transplant in the future. 07/17/2023 the patient is here for pulmonary follow-up visit. The patient since we spoke had a chest x-ray demonstrating moderate sided pleural effusion. Therefore we sent him for thoracentesis. He had to stop the Eliquis however. Therefore took a little longer. By the time that he was scheduled for the thoracentesis. By the time that he got a thoracentesis done he was already feeling better she was not sure if he should had a done. After the thoracentesis and drained about a L and a have the patient started having left-sided chest discomfort. He was then shoveling and snow blowing so had a hard time knowing for sure if the left-sided discomfort with musculoskeletal or if it was related to his procedure. Therefore we had and come back for chest x-ray. No evidence of any pneumothorax although it appears that the pleural effusion was increasing after the thoracentesis already occurred. Explained to the patient likely that he has a component of trapped lung on that side and therefore the negative pressure causes tugging of the lung causing pain and subsequently once the fluid comes back the symptoms do resolve. He does have the crease and diminished breath sounds absent breath sounds on the left base suggesting the fluid is already back. The patient also has been taking Eliquis and his hemoglobin has been dropping. He is scheduled for an endoscopy and also colonoscopy. In part is due to the blood thinners. This is because he had blood clots that were noted back in March 2023. Will go ahead and repeat a CTA in the coming months to make sure that the blood clots or gone in case he needs to stop the anticoagulation. 03/07/2024 the patient is here for a pulmonary follow-up visit. He had been admitted to the hospital with upper GI bleed secondary to variceal bleed. Subsequently transferred to [facility] for potential tips. The patient was reluctant. He needs to talk further with his regular GI doctor. In the meantime has been having shortness of breath. We did have him get a chest x-ray and does not appear to be having significant fluid buildup of these in the left lung. Appears to be slightly loculated. No need for thoracentesis right now. The patient did have a CT scan of the chest demonstrating pulmonary nodules however. Therefore he would need to get a repeat CT scan of the chest at this time to further address the nodular densities. He continues on the diuresis therapy. He is also working on his sobriety. [facility] Medical History Pulmonary nodule 1 cm or greater in diameter Pleuritic chest pain Pulmonary embolism, bilateral Cirrhosis of liver Diabetes Alcohol use disorder, moderate, dependence Recurrent left pleural effusion Pleural effusion Pericardial effusion Tachycardia Dyspnea Hydropneumothorax Pleural effusion on right Decompensation of cirrhosis of liver Cirrhosis GERD (gastroesophageal reflux disease) Esophageal varices Chronic abdominal pain Gout Peripheral neuropathy Alcoholism Elevated LFTs Surgical History S/P right knee arthroscopy History of abdominal paracentesis Hx of esophagogastroduodenoscopy History of thoracentesis H/O colonoscopy H/O cervical spine surgery H/O hemicolectomy Family History Mother Cancer Sister Cancer Social History (Updated 02/19/24 @ 13:32 by Felix Craft) Household Members: None Household Members Other:: 1 Housing: Apartment Are you a primary career services representative to a significant other at home: No Do you presently have visiting nurse or other home services: No Alcohol intake: current Alcohol intake frequency: holidays/special occasions only Alcohol type: hard liquor Comment: counts correct Patient Tobacco Use Status: Former Tobacco user Tobacco use type: Cigarette Years Smoked: 35 e-Cigarette/Vaping Use: Never Used Second Hand Smoke Exposure: No Substance Use Type: Marijuana Advance Directives Date on File: 11/27/22 service: No Current occupational status: unemployed Review of Systems Const Denies fatigue, Denies fever(s), Denies night sweats, Reports poor appetite and Reports weight loss Eyes Denies change in vision ENT Reports Normal hearing present Card Reports no additional complaints, Reports chest pain and Reports dyspnea on exertion Resp Denies chest congestion, Denies cough, Denies hemoptysis, Denies pain on inspiration, Denies pain with cough and Reports dyspnea on exertion GI Reports abdominal pain Musc Reports arthralgias Skin/Breast Denies pruritus Neuro Reports Normal hearing present and Denies Abnormal speech present Endo Denies fatigue Physical Exam Vital Signs: Last Vital Signs Pulse 76 03/07/24 10:45 BP 124/60 03/07/24 10:45 Pulse Ox 98 03/07/24 10:45 Oxygen Delivery Method Room Air 03/07/24 10:45 BMI result Body Mass Index 31.5 Const General: alert Orientation/consciousness: patient oriented x3 HEENT Head: Yes normal to inspection Eyes Conjunctivae: conjunctival abnormal bilateral conjunctival icterus Neck Neck: Yes supple Chest Chest palpation & inspection: normal inspection of the chest Resp Effort & Inspection: normal respiratory effort Auscultation: no rales and diminished lung sounds Percussion: no dullness to percussion Cardio Rate: regular rate Rhythm: regular rhythm Heart sounds: S1 normal heart sound present and S2 normal heart sound present GI Inspection: Yes distended Skin General skin exam: spider nevi Neuro General: patient oriented x3 Cranial nerves: Yes Normal hearing present Speech: No Abnormal speech present Extrem General: Yes no clubbing, cyanosis or edema Assessment & Plan Assessment & Plan (1) Pleural effusion: Code(s): J90 - Pleural effusion, not elsewhere classified Category: Medical (2) Pulmonary embolism, bilateral: Code(s): I26.99 - Other pulmonary embolism without acute cor pulmonale Category: Medical (3) Alcoholic cirrhosis of liver: Code(s): K70.30 - Alcoholic cirrhosis of liver without ascites Category: Medical Qualifiers: Ascites presence: with ascites Qualified Code(s): K70.31 - Alcoholic cirrhosis of liver with ascites (4) Pleuritic chest pain: Code(s): R07.81 - Pleurodynia Category: Medical Plan continue Eliquis, monitoring Hb Ok to proceed to anesthesia and EGD/colonoscopy CT chest diuresis as tolerated considering TIPS F/U 3 months Orders: Orders CT chest wo IV con 03/07/24 R91.8 - Other nonspecific abnormal finding of lung field Coding Level of Care Code Est Pt Level 4 (53256) Diagnoses Pleural effusion J90 Pulmonary embolism, bilateral I26.99 Alcoholic cirrhosis of liver with ascites K70.31 Ascites presence: with ascites Pleuritic chest pain R07.81 Time Spent (min) 16
== END 2024-03-07 11:13 | disposition home or self-care (01) ==
PROVIDERS: PCP Internal Medicine; Visit Provider Hospitalist
DX: J90 Pleural effusion, not elsewhere classified (principal); I26.99 Other pulmonary embolism without acute cor pulmonale; K70.31 Alcoholic cirrhosis of liver with ascites; R07.81 Pleurodynia
CPT/HCPCS: 99214

== ENCOUNTER → 2024-03-07 10:32 | Outpatient (BNVA) | payer OTHER, SELFPAY | PROVIDERS: PCP Internal Medicine; Visit Provider Hospitalist | DX: J90 Pleural effusion, not elsewhere classified (principal); I26.99 Other pulmonary embolism without acute cor pulmonale; K70.31 Alcoholic cirrhosis of liver with ascites; R07.81 Pleurodynia; R91.8 Other nonspecific abnormal finding of lung field | CPT/HCPCS: 99212 ==

== ENCOUNTER 2024-03-12 08:17 | Outpatient (REF) | payer OTHER, SELFPAY ==
--- NOTE | ~2024-03-12 | CT_ITS ---
EXAMINATION: CT CHEST WITHOUT CONTRAST CLINICAL INFORMATION: Lung length COMPARISON: Chest radiograph from February 21, [address] angiogram from September 04, 2023 TECHNIQUE: Multidetector volumetric CT imaging of the chest was done. Axial MIP volume rendering provided. Sagittal and coronal reformatted images were obtained. This CT examination was performed using dose optimization techniques as appropriate, variously including the following: *Automated exposure control *Adjustment of mA and/or kV according to patient size (this includes techniques or standardized protocols for targeted exams where dose is matched to indication/reason for exam; i.e. extremities or head) *Use of iterative reconstruction technique DLP: 226 mGy-cm FINDINGS: BEAN SNAPPER: There is left-sided pleural effusion LUNGS: Mild changes of emphysema. Right lung is unremarkable. Left lung revealed left lower lobe scarring and rounded atelectasis adjacent to pleural effusion. MEDIASTINUM: The mediastinum is normal. CORONARY ARTERY CALCIFICATION: None visualized on this study. PLEURA: There is small pleural effusion AXILLA: No lymphadenopathy. There is bilateral gynecomastia UPPER ABDOMEN: Partially visualized upper abdomen reveals large amount of ascites surrounding liver with nodular contour. Spleen is unremarkable. There is corticated tenderness. There is small hiatal hernia. OSSEOUS STRUCTURES: Unremarkable. CT/CT chest wo IV con IMPRESSION: 1. Small left-sided pleural effusion and adjacent rounded atelectasis. 2. Mild changes of emphysema. 3. Cirrhosis with ascites. 4. Gynecomastia. 5. Small hiatal hernia. Fleischner guidelines were followed. Electronically signed by: Say Jackson MD 03/12/2024 11:46 AM EDT
== END 2024-03-12 08:18 | disposition home or self-care (01) ==
LOC: HO.CT 08:17
PROVIDERS: PCP Internal Medicine; Visit Provider Hospitalist
DX: R91.8 Other nonspecific abnormal finding of lung field (principal)
CPT/HCPCS: 71250

== ENCOUNTER → 2024-03-27 11:12 | Day surgery (SDC) | payer OTHER, SELFPAY ==
--- NOTE | ~2024-03-27 | US_ITS ---
EXAMINATION: US GUIDED PARACENTESIS CLINICAL INFORMATION: Ascites, therapeutic drainage. COMPARISON: Numerous priors, most recently 03/22/2024. PROCEDURE DETAILS: Following the discussion of the risks, benefits and alternatives to the procedure, written informed consent was obtained from the patient. The patient was placed supine on the exam table. A preprocedure time-out was performed per [facility] protocol. The right lower quadrant was marked, using ultrasound guidance, prepped and draped using sterile fashion. Using an ultrasound to identify the largest pocket of fluid to safely access, the right lower quadrant overlying skin was marked for paracentesis. Skin and subcutaneous tissues were anesthetized with 7 mL of 1% lidocaine sterile solution. Subsequently, a 5-Kazakh trochar catheter ([employer]) was advanced into the ascites and upon aspiration of fluid, trocar was removed, and catheter left in place. The catheter was connected to Vacutainer suction. 15,600 mL of eliseo-colored serous fluid was drained via vacuum bottle. The patient tolerated the procedure well without complications. The catheter was removed, area cleansed, puncture site sealed with Dermabond, and a sterile dressing applied. Ascitic samples were sent to laboratory for analysis. Patient tolerated the procedure well with no immediate complication. Vitals remained stable despite high volume drainage. Albumin was given IV postprocedural in the PACU. FINDINGS: Large volume abdominopelvic ascites. US/US paracentesis abd w/image IMPRESSION: RLQ therapeutic paracentesis, yielding 15,600 mL of serous ascites. Electronically signed by: Dao El MD 03/27/2024 04:35 PM EDT
[2024-03-27 11:53] VITALS: BP 132/80; PULSE 70; RESP 18; TEMP 36.1; O2SAT 96; BMI 30.4
[2024-03-27 12:08] LABS: Glucose, Whole Blood 106 mg/dL (60-115)
[2024-03-27 14:55] VITALS: BP 121/70; PULSE 97; RESP 16; TEMP 36.3; O2SAT 99
[2024-03-27] MEDS: Lidocaine HCl 1 % MPF 5 ML VIAL 10 ML SUBCUT (15:03)
[2024-03-27 15:15] VITALS: BP 127/72; PULSE 97; RESP 16; O2SAT 98
[2024-03-27 15:30] VITALS: BP 131/71; PULSE 100; RESP 16; O2SAT 98
[2024-03-27 15:45] VITALS: BP 112/73; PULSE 105; RESP 16; O2SAT 98
[2024-03-27 15:58] VITALS: BP 123/65; PULSE 99; RESP 16; TEMP 36.1; O2SAT 98
== END | disposition home or self-care (01) ==
PROVIDERS: Student in an Organized Health Care Education/Training Program; PCP Internal Medicine; Visit Provider Internal Medicine Gastroenterology
DX: K70.31 Alcoholic cirrhosis of liver with ascites (principal); R14.0 Abdominal distension (gaseous); E11.9 Type 2 diabetes mellitus without complications
CPT/HCPCS: 49083; 82947; J2003; P9047

== ENCOUNTER → 2024-03-27 13:03 | Outpatient (BNV) | payer OTHER, SELFPAY | PROVIDERS: PCP Internal Medicine; Visit Provider Radiology Diagnostic Radiology | DX: R18.8 Other ascites (principal) | CPT/HCPCS: 49083 ==

== ENCOUNTER 2024-03-31 13:14 | Outpatient (AMB) | payer OTHER, SELFPAY ==
--- NOTE | 2024-03-31 13:15 | A.OFFVIS_ITS ---
Vital Signs 3 03/31/24 13:21 Height 6 ft 5 in Weight 260 lb 4 oz BMI 30.9 BP 106/59 L Blood Pressure Location Rt brachial Position Sitting Pulse 79 Pulse Source Pulse Oximeter Oxygen Delivery Method Room Air Intake Visit Reasons: Bilateral Knee and leg pain Intake Note: Pain today 09/01 Lead Operator Required: No Accompanied by: Self / Same As Patient Allergies No Known Drug Allergies [NO KNOWN DRUG ALLERGIES] Allergy (Mild, Verified 03/31/24 13:20) NONE HPI HPI Bilateral Knee and leg pain: Details: Patient is a 58-year-old male with history of bilateral knee pain, diabetes, peripheral neuropathy, alcohol abuse complicated by liver cirrhosis and ascites, presents today for initial evaluation bilateral knee pain, worse on the left side. Denies any recent trauma, injury, or falls. Patient reports recent history of right knee septic arthritis and cellulitis and similar symptoms are happening on the left side as well. Patient has upcoming paracentesis and reports distended abdomen increases his swelling and bilateral lower extremities. He reports having pending bilateral knee MRI to rule out infection in both knees and reports persistent swelling, tenderness and localized anterior and medial aspects of bilateral knee pain. Currently left knee worse than the right. He is planning to follow-up with Orthopedic provider. At this time he is not candidate for interventional treatments but would like to discuss available treatments for chronic knee pain to consider in the near future. Denies any fever or chills, back pain, weakness, knee locking or buckling, bladder or bowel dysfunction or saddle anesthesia. Orthopedic Notes 01/09/24 by Le POTTER: 61-year-old male who presents in the office today 1 month status post right knee arthroscopic lavage, which was performed on 12/06/[address] Mosher. I last saw the patient in the office on 12/13/2023 when the patient was to continue oral antibiotics. A refill for hydromorphone 2 mg PO Q6H PRN was sent to the pharmacy for a one-time refill. The patient presented to the ED on 01/02/2024 with a complaint that his right lower extremity ?was getting worse? He confirmed in the ED he did not take the antibiotic as prescribed and missed the last four doses due to it making him ?weird and angry at home?. The patient was admitted to the hospital from 01/02/2024-01/06/2024 and treated by infectious disease for cellulitis. Upon discharge the patient was prescribed cefuroxime axetil 500 mg PO Q12H. While in the office today, the patient reports having continued pain in the right knee. He states his pain is a 7.5/10 in the office today. Patient has a significant medical history of diabetes mellitus. Location: Bilateral knees, left worse than right Duration: Chronic pain >1 year Characteristics of symptom or complaint: Burning, sharp, stabbing, cramping, throbbing, aching Aggravating or associated factors: Any movement, walking, climbing or descending stairs, bending Relieving factors: Sitting, keeping legs apart ice/heat, topical applications, elevation Treatment: Right knee arthroscopy, [facility] Medical History Pulmonary nodule 1 cm or greater in diameter Pleuritic chest pain Pulmonary embolism, bilateral Cirrhosis of liver Diabetes Alcohol use disorder, moderate, dependence Recurrent left pleural effusion Pleural effusion Pericardial effusion Tachycardia Dyspnea Hydropneumothorax Pleural effusion on right Decompensation of cirrhosis of liver Cirrhosis GERD (gastroesophageal reflux disease) Esophageal varices Chronic abdominal pain Gout Peripheral neuropathy Alcoholism Elevated LFTs Surgical History S/P right knee arthroscopy History of abdominal paracentesis Hx of esophagogastroduodenoscopy History of thoracentesis H/O colonoscopy H/O cervical spine surgery H/O hemicolectomy Family History Mother Cancer Sister Cancer Social History (Updated 03/31/24 @ 13:22 by Susan Jorge) Household Members: None Household Members Other:: 1 Housing: Apartment Are you a primary healthcare network pricing consultant to a significant other at home: No Do you presently have visiting nurse or other home services: No Alcohol intake: current Alcohol intake frequency: holidays/special occasions only Alcohol type: hard liquor Comment: counts correct Patient Tobacco Use Status: Former Tobacco user Tobacco use type: Cigarette Years Smoked: 35 e-Cigarette/Vaping Use: Currently Using Second Hand Smoke Exposure: No Substance Use Type: Marijuana Advance Directives Date on File: 11/27/22 service: No Current occupational status: unemployed Review of Systems Const All systems reviewed & are unremarkable except as noted in HPI and below Physical Exam Vital Signs: Last Vital Signs Pulse 79 03/31/24 13:21 BP 106/59 L 03/31/24 13:21 Oxygen Delivery Method Room Air 03/31/24 13:21 BMI result Body Mass Index 30.9 General: Appears afebrile. Alert and oriented. Mood and affect appropriate. Follows and participates in conversation appropriately. Respiratory effort is unlabored. No cough. No nasal discharge. Able to transition from sit to stand unassisted. Ambulates with bilaterally normal heel strike and toe off. GI Inspection: Yes Abdominal wall edema, Yes distended and Yes obesity Palpation (GI): Tenderness to palpation present (GI) (global tenderness due to ascites), no guarding and Ascites present Extrem General: Yes edema (BLE non pitting edema) Right lower extremity: knee (Limited ROM due to pain) Details: tenderness Location: of the medial joint line and of the lateral joint line, swelling (global knee), crepitus and warmth (lower extremity) Left lower extremity: knee (Limited ROM due to pain and swelling) Details: tenderness Location: of the patella and of the medial joint line, swelling (global knee), crepitus and warmth (left lower leg); no ecchymosis Results Reviewed Results Reviewed: CT knee RT w IV con 01/02/24 IMPRESSION: * Small knee joint effusion and thickened enhancing synovium could represent either noninfectious or infectious synovitis. * No evidence of osteomyelitis. * Diffuse edema of the subcutaneous tissues of the visualized extremity is nonspecific but cellulitis would be considered if in the proper clinical context. There is no soft tissue abscess. XR KNEE, RIGHT 11/26/23 CLINICAL INFORMATION: Right knee pain FINDINGS: No visible acute fracture. Alignment is anatomic. Joint spaces are maintained. Small-moderate joint effusion. No abnormal soft tissue calcification. IMPRESSION: Small-moderate joint effusion. No radiographic evidence of acute fracture. Assessment & Plan Assessment & Plan (1) Bilateral knee pain: Code(s): M25.561 - Pain in right knee; M25.562 - Pain in left knee Category: Medical (2) Septic arthritis of knee, right: Comment: Serratia marcescens,improved No further treatment at this time. Code(s): M00.9 - Pyogenic arthritis, unspecified Category: Medical (3) Bilateral knee pain: Code(s): M25.561 - Pain in right knee; M25.562 - Pain in left knee Category: Medical Plan Discussed interventional treatments for bilateral knee pain including diagnostic nerve blocks for potential genicular RFA or neuromodulation with Sprint PNS trial, therapeutic injections such as cortisone injections or gel injections. Patient reports he has pending bilateral knee MRI as he continues to report bilateral knee effusion and pain. Recent history of right knee arthritis and cellulitis s/p right knee arthroscopy and lavage noted. Patient will notify our office once he is cleared by Orthopedics. Informational pamphlets provided to patient. All questions and concerns have been answered and patient agreed with the treatment plan. Follow-up as needed. Medications: New 2 lidocaine 5% Apply to affected areas up to 12 hours a day 2 patches topical DAILY 30 days 60 ea 0RF pain M25.561 - Pain in right knee, M25.562 - Pain in left knee diclofenac sodium 1% (Arthritis Pain (diclofenac)) 4 grams topical QID 100 grams 0RF pain M25.561 - Pain in right knee, M25.562 - Pain in left knee Coding Level of Care Code New Pt Level 3 (37019) Complex EM visit Add On G2211 Diagnoses Bilateral knee pain M25.561; M25.562 Septic arthritis of knee, right M00.9
[2024-03-31 13:21] VITALS: BP 106/59; PULSE 79; BMI 30.9
== END 2024-03-31 13:53 | disposition home or self-care (01) ==
PROVIDERS: PCP Internal Medicine; Visit Provider Nurse Practitioner Family
DX: M25.561 Pain in right knee (principal); M25.562 Pain in left knee; M00.9 Pyogenic arthritis, unspecified
CPT/HCPCS: 99203; G2211

== ENCOUNTER → 2024-03-31 13:14 | Outpatient (BNVA) | payer OTHER, SELFPAY | PROVIDERS: PCP Internal Medicine; Visit Provider Nurse Practitioner Family | DX: M25.561 Pain in right knee (principal); M25.562 Pain in left knee; M00.9 Pyogenic arthritis, unspecified | CPT/HCPCS: 99202 ==

== ENCOUNTER 2024-04-10 07:53 | Day surgery (SDC) | payer OTHER, SELFPAY ==
--- NOTE | ~2024-04-10 | US_ITS ---
ULTRASOUND GUIDED PARACENTESIS HISTORY: Ascites. Therapeutic drainage. TECHNIQUE: Risks and benefits and possible complications were discussed with the patient and consent form was signed. A safe pocket of ascitic fluid was identified using ultrasound guidance, and the overlying skin was marked. The abdomen prepped and draped in sterile fashion. 1% lidocaine was used as a local anesthetic. Using ultrasound guidance, a 5 fr catheter was placed into the ascitic pocket. 10.0 liters of yellow fluid was removed passively. The catheter was then removed. 75 g of albumin was administered to the patient. A few healthcare sales representative images from before and after the examination were obtained. The procedure was performed by Lenard Sandra PA-C and supervised by Dr. El. US/US paracentesis abd w/image IMPRESSION: Ultrasound-guided paracentesis as described above. No immediate complications Electronically signed by: Dao El MD 04/18/2024 01:48 PM EDT
[2024-04-10 08:14] VITALS: BMI 33.0
[2024-04-10 08:16] LABS: Glucose, Whole Blood 119 mg/dL (60-115)
[2024-04-10 08:33] LABS: Anion Gap 12 (12-20); Blood Urea Nitrogen 11 mg/dL (9-16); Calcium 8.4 mg/dL (8.4-10.2); Carbon Dioxide 23 mmol/L (22-29); Chloride 104 mmol/L (96-108); Creatinine Clr Calc Pharmacy 115.4; Estimated Glomerular Filt Rate > 60; Glucose Random 128 mg/dL (60-115); Potassium 4.7 mmol/L (3.3-5.1); Sodium 134 mmol/L (135-145)
[2024-04-10] MEDS: Lidocaine HCl 1 % MPF 5 ML VIAL SUBCUT (10:48)
[2024-04-10 10:57] VITALS: BP 124/62; PULSE 101; RESP 16; TEMP 36.3; O2SAT 99
[2024-04-10] MEDS: Albumin Human 25 % 100 ML IV (10:57)
[2024-04-10 11:12] VITALS: BP 115/59; PULSE 100; RESP 16; O2SAT 99
[2024-04-10 11:25] VITALS: BP 125/50; PULSE 105; RESP 16; O2SAT 99
[2024-04-10 11:40] VITALS: BP 128/71; PULSE 106; RESP 16; TEMP 36.3; O2SAT 99
== END 2024-04-10 11:51 | disposition home or self-care (01) ==
PROVIDERS: Physician Assistant Surgical; PCP Internal Medicine; Visit Provider Internal Medicine Gastroenterology
DX: K70.31 Alcoholic cirrhosis of liver with ascites (principal)
CPT/HCPCS: 36415; 49083; 80048; 82947; J2003; P9047

== ENCOUNTER → 2024-04-10 09:08 | Outpatient (BNV) | payer OTHER, SELFPAY | PROVIDERS: PCP Internal Medicine; Visit Provider Physician Assistant Surgical | DX: R18.8 Other ascites (principal) | CPT/HCPCS: 49083 ==

== ENCOUNTER 2024-04-18 07:13 | Outpatient (AMB) | payer OTHER, SELFPAY ==
--- NOTE | 2024-04-18 07:16 | A.OFFVIS_ITS ---
Vital Signs 04/18/24 07:23 Height 6 ft 5 in Weight 263 lb BMI 31.2 BP 125/60 Blood Pressure Location Lt brachial Position Sitting Pulse 109 H Intake Visit Reasons: Anemia Intake Note: Patient follow up for Anemia. Patient cc: fatigue, tiredness, poor appetite, denies any other GI issues for today. 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: No Accompanied by: Self / Same As Patient Allergies No Known Drug Allergies [NO KNOWN DRUG ALLERGIES] Allergy (Mild, Verified 04/22/24 07:24) NONE Medication List - Last Reconciled 04/18/24 by Jannet Graham MD acamprosate 333 mg PO Q8H PRN albuterol sulfate 90 mcg/actuation (ProAir HFA) 2 puffs inhalation Q6H PRN apixaban (Eliquis) 5 mg PO BID blood sugar diagnostic (FreeStyle Lite Strips) QID blood-glucose meter (FreeStyle Lite Meter kit) As directed bupropion HCl XL 300 mg PO DAILY carvedilol 6.25 mg PO BID 30 days cefuroxime axetil 500 mg PO Q12H diclofenac sodium 1% (Arthritis Pain (diclofenac)) 4 grams topical QID folic acid 1 mg PO DAILY furosemide 80 mg (2 x 40 mg) PO DAILY 90 days hydroxyzine pamoate 50 mg PO DAILY PRN insulin glargine 20 units subcut DAILY PRN insulin lispro 1 sliding scale dose See Protocol subcut QIDACHS lactulose 30 mL PO TID PRN lancets 4 times daily lidocaine 5% 2 patches topical DAILY 30 days lorazepam 0.5 mg PO DAILY PRN omeprazole 40 mg PO DAILY 90 days ondansetron 4 mg PO Q8H PRN oxycodone 5 mg PO BID PRN paroxetine HCl 20 mg PO DAILY pen needle, diabetic (Pen Needle) As directed rifaximin (Xifaxan) 550 mg PO BID 30 days spironolactone 200 mg (2 x 100 mg) PO DAILY 90 days thiamine HCl (vitamin B1) 100 mg PO DAILY walker As directed HPI HPI Anemia: Details: GI clinic visit for this 58 YM for FU of ESLD complicated by ascites, esophageal varices (status post banding x 4 in 2022), hepatic hydrothorax and hepatic encephalopathy, portal hypertensive gastropathy, GERD, hypertension, depression, hyperlipidemia. Patient was diagnosed with PE in early 2023 and was started on apixaban. He is status post terminal ileal resection (7 cms) and right hemicolectomy (25 cms) for adenomatous right colon polyps Patient was seen by IR at [facility] [place] in 03/14/2023 and offered a tips placement which he declined. Pt was scheduled for periportal lymph node biopsy at [facility] [place]. Procedure was canceled due to presence of tense ascites. Procedure was not rescheduled due to concern for complications from FNA and ad vised monitoring with imaging Also pt is considered a poor candidate for systemic therapy incase malignancy is diagnosed. Pt previously followed by Frances Pierre NP and Dr. Mendoza since 06/13/2021 TODAY'S VISIT: Patient cc: fatigue, tiredness, poor appetite, denies any other GI issues for today. Pt has an appt on 05/14/24 at [facility] [place] - unsure if it is for a TIPPS placement. Always feels fatigued with nausea, poor appetite, intermittent abdominal pain which improves after paracentesis Takes ondansetron SL which helps Gets SOB on climbing stairs Patient denies symptoms of heartburn, dysphagia, nausea, change in weight. Denies recent change in bowel habits, constipation, diarrhea, black stools or rectal bleeding. Pt was started on Eliquis by Dr Alvarez 6 months ago for PE Patient is unsure if he has loud snoring or sleep apnea Denies problems with anesthesia in the past. Drinking 2 beers a day. Thinks he is able to quit Patient denies known family history of liver disease, colon cancer or other GI malignancies. 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 Stigmata of cirrhosis and portal hypertension with [id number] ascites noted. Mima hepatis adenopathy again noted. Evidence of portosystemic collateral vessels including in a small type 1 hiatal hernia and in the gastrohepatic ligament and splenic hilum as well as a small splenorenal shunt 2. Portal veins a small within the liver. Hepatic veins are not well seen due to contrast timing. 3. Chronic lesion in the proximal right femur considered benign. 4. Small to moderate sized umbilical hernia containing ascitic fluid in the anterior wall with a small bowel loop without associated obstruction ENDOSCOPIC STUDIES: 02/21/24 EGD was performed at [facility] [place] which showed portal hypertensive gastropathy and esophageal varices with bleeding and band ligation x 3 was performed 07/26/23 EGD AND COLONOSCOPY WERE PERFORMED BY DR MENDOZA: Impressions:? * Esophageal varices (banding x 1) * Portal hypertensive gastropathy * Portal hypertensive duodenopathy * Normal colon mucosa * Total of 12 polyps removed from the left side of the colon - hyperplastic on biopsy. * Internal hemorrhoids Recommendations:?? * Follow biopsy results. Our office will call or send a letter with results within 7-10 days. * Continue carvedilol for variceal bleeding prophylaxis * Repeat EGD in 6 months * Patient continues to drink, and was again counseled very strongly for cessation * If 3 or more polyps are adenoma, would recommend repeat colonoscopy in 3 years. * Given the polyp burden, we will also discuss referral to genetics for polyposis PAST GI HISTORY BY REVIEW OF MEDICAL RECORDS: LAST SEEN BY DR MENDOZA IN JUL, 2023: -Severe alcohol use disorder -Decompensated Cirrhosis (bleeding esophageal varices 11/2022, ascites, hepatic hydrothorax, hepatic encephalopathy MELD-Na 15 (03/2023 labs) Child St Class C Discussed with the pt to strongly consider follow up with addiction medicine to help with etOH use disorder treatment. Reminded that ongoing etOH use is leading to progression of liver disease. Needs to demonstrate at least 3-6 months of sobriety for transplant evaluation. - Alcohol use disorder: Most recent drink 2 DAYS ago - Had a PETH of 810 in November 2022. Again counseled extensively on etOH cessation. He tells me he will call addiction medicine to follow up with Jannet Marion. - Ascites and Peripheral Edema: Has moderate NON-tense ascites on exam today. Encouraged compliance with diuretics. Has had indiscretion to salt intake. Given sensitivity to high doses of diuretics, reinforced need to adhere to 2g Na to avoid uptitration of diuretics. Cont lasix 80mg and aldactone 200mg. Encouraged compliance with the meds. - Hepatic encephalopathy: No HE on exam today. Cont lactulose titrated to 2-3 soft bowel movements, pt advised that can increase dose as needed to titrate to effect. Cont Rifaximin. ? - Secondary prophylaxis for gastroesophageal varices: He is status post endoscopic variceal band ligation (EVBL) for BLEEDING large varices most recently in 01/16/23. Most recent EGD for secondary prophylaxis this month again showed large varices in the context of ongoing etOH use. - STOP nadolol. - Start coreg 6.25 BID - Again etOH abstinence is of paramount importance to avoid progression of portal hypertension. - HCC screening: Most recent ultrasound abdomen was in Jun 2023. Cirrhotic changes with patent PV. Next US due 12/2023. Reminder placed. - Personal hx of high risk polyps: Repeat colo earlier this year with 13 HP polyps. Due for colonoscopy 2026. - GB polyps: Has multiple GB polyps with largest one measuring 1 cm. Due to underlying cirrhosis, plan to repeat US Abd in 6 months by gen surg. Follow up in 3 month [facility] Medical History Pulmonary nodule 1 cm or greater in diameter Pleuritic chest pain Pulmonary embolism, bilateral Cirrhosis of liver Diabetes Alcohol use disorder, moderate, dependence Recurrent left pleural effusion Pleural effusion Pericardial effusion Tachycardia Dyspnea Hydropneumothorax Pleural effusion on right Decompensation of cirrhosis of liver Cirrhosis GERD (gastroesophageal reflux disease) Esophageal varices Chronic abdominal pain Gout Peripheral neuropathy Alcoholism Elevated LFTs Surgical History S/P right knee arthroscopy History of abdominal paracentesis Hx of esophagogastroduodenoscopy History of thoracentesis H/O colonoscopy H/O cervical spine surgery H/O hemicolectomy Family History Mother Cancer Sister Cancer Social History Household Members: Other Household Members Other:: 1 Housing: Apartment Are you a primary transitional care manager to a significant other at home: No Do you presently have visiting nurse or other home services: No Alcohol intake: current Alcohol intake frequency: holidays/special occasions only Alcohol type: beer Comment: counts correct Patient Tobacco Use Status: Former Tobacco user Tobacco use type: Cigarette Years Smoked: 35 e-Cigarette/Vaping Use: Currently Using Second Hand Smoke Exposure: No Substance Use Type: Marijuana Advance Directives Date on File: 11/27/22 service: No Current occupational status: unemployed Review of Systems Const Reports fatigue, Denies fever(s), Reports headache(s), Reports weight gain (of 15 lbs) and Denies weight loss Eyes Denies eye discharge and Denies irritation ENT Reports Normal hearing present, Denies dysphagia, Denies dizziness and Reports headache(s) Card Denies chest pain, Denies leg edema, Reports dyspnea and Reports dyspnea on exertion Resp Reports cough, Reports dyspnea, Reports dyspnea on exertion and Reports wheezing GI Reports abdominal pain, Reports bloating, Denies change in bowel habits, Denies dysphagia, Reports early satiety, Reports heartburn, Reports nausea and Reports other (loss of appetite) Denies dysuria and Reports urinary frequency Musc Denies back pain, Reports arthralgias and Reports other (arthritis) Skin/Breast Denies pruritus, Denies rash and Denies jaundice Neuro Reports Normal hearing present, Denies Abnormal speech present, Denies dizziness, Reports headache(s) and Denies seizure-like activity Psych Reports anxiety, Reports depression and Denies panic attacks Endo Denies cold intolerance, Reports fatigue, Denies flushing and Denies heat intolerance Regan/Lymph Denies easy bleeding and Denies easy bruising Aller/Immun Reports wheezing Physical Exam Vital Signs: Last Vital Signs Pulse 109 H 04/18/24 07:23 BP 125/60 04/18/24 07:23 BMI result Body Mass Index 31.2 Const General: no acute distress and ill appearing Nutritional Appearance: obese Orientation/consciousness: patient oriented x3 Limitations: physical limitations HEENT Head: Yes normal to inspection Ears: hearing grossly normal bilaterally Eyes Sclerae: sclerae normal Pupils: Equal, round and reactive pupils present Neck Neck: Yes normal visual inspection Chest Chest palpation & inspection: normal inspection of the chest Resp Effort & Inspection: normal respiratory effort Auscultation: clear to auscultation bilaterally Cardio Palpation: normal PMI Rate: regular rate Rhythm: regular rhythm Heart sounds: S1 normal heart sound present, S2 normal heart sound present and no murmurs GI Inspection: Yes distended and Yes visible herniation (reducible umbilical hernia) Palpation (GI): Soft to palpation, nontender and No hepatosplenomegaly present Auscultation: normal bowel sounds Rectal Exam - Male: Yes deferred Skin General skin exam: no rashes or lesions noted Neuro General: patient oriented x3, gait normal and moves all extremities Cranial nerves: Yes Equal, round and reactive pupils present and Yes Normal hearing present Speech: No Abnormal speech present Extrem General: Yes pedal edema and Yes other (no asterixis) Psych Appearance: grossly normal Mental Status: mental status grossly normal Assessment & Plan Assessment & Plan (1) Alcoholic cirrhosis of liver with ascites: Code(s): K70.31 - Alcoholic cirrhosis of liver with ascites Category: Medical (2) Retroperitoneal mass: Code(s): R19.00 - Intra-abdominal and pelvic swelling, mass and lump, unspecified site Category: Medical (3) Gallbladder polyp: Code(s): K82.4 - Cholesterolosis of gallbladder Category: Surgical (4) Varices of esophagus determined by endoscopy: Code(s): I85.00 - Esophageal varices without bleeding Category: Medical (5) Hepatopulmonary syndrome: Comment: Garlic (containing allium sativum) ? Garlic (containing allium sativum) is thought to decrease nitric oxide synthesis, thereby acting as a potential therapy for HPS. As an example, one prospective randomized, placebo-controlled trial evaluated the effects of oral garlic supplementation (1 to 2 g/m2/day) in 41 patients with HPS [64]. After nine months, compared with placebo, garlic supplementation resulted in a three-fold increase in baseline arterial oxygen levels and a decrease in alveolar-arterial oxygen gradient. Reversal of HPS was observed in 14 of 21 patients treated with garlic compared with only 1 of 20 patients in the placebo group (67 versus 5 percent). Mortality was also lower among patients receiving garlic (10 versus 35 percent). Code(s): K76.81 - Hepatopulmonary syndrome Category: Medical Plan 58 YM with ESLD complicated by ascites, esophageal varices (status post banding x 4 in 2022), hepatic hydrothorax and hepatic encephalopathy, portal hypertensive gastropathy, GERD, hypertension, depression, hyperlipidemia. Patient was diagnosed with PE in early 2023 and was started on apixaban (Followed by Pulmonary - Dr Alvarez). He is status post terminal ileal resection (7 cms) and right hemicolectomy (25 cms) for adenomatous right colon polyps Patient was seen by IR at [facility] [place] in 03/14/2023 and offered a TIPPs placement which he declined. Pt was scheduled for periportal lymph node biopsy by IR at [facility] [place] and procedure was canceled due to presence of tense ascites. Biopsy was not rescheduled due to unfavorable risk benefit profile and concern for complications from FNA and advised monitoring with imaging Also pt is considered a poor candidate for systemic therapy in case malignancy is diagnosed. Pt has an appt on 05/14/24 at [facility] [place] - unsure if it is for a TIPPS placement. REDUCING THE RISK OF LIVER PROGRESSION: patient was advised to completely avoid use of alcohol and lose weight. HCC SURVEILLANCE: the patient is at risk of developing hepatocellular carcinoma given the presence of cirrhosis and need 6 monthly imaging surveillance with either abdominal ultrasound (US) or multiphase cross-sectional imaging (CT or MRI). Last Abd US on 02/04/24 had shown no focal liver lesions suspicious of HCC. He will be scheduled for follow-up liver ultrasound for ongoing surveillance. SURVEILLANCE FOR GASTROESOPHAGEAL VARICES: I will plan schedule an EGD for FU of varices. QUESTION OF LIVER TRANSPLANTATION: Pt is not a candidate for liver transplantation at present due to ongoing ETOH and drug abuse. Pt is scheduled for a therapeutic paracentesis on 04/24/24 for management of recurrent ascites despite taking diuretics. FU in 5 weeks - scheduled 06/05/24 Orders: Orders Complete Blood Count Auto Diff 04/21/24 K70.31 - Alcoholic cirrhosis of liver with ascites Comprehensive Met. Panel 04/21/24 K70.31 - Alcoholic cirrhosis of liver with ascites Coding Level of Care Code Est Pt Level 4 (38959) Complex EM visit Add On G2211 Diagnoses Alcoholic cirrhosis of liver with ascites K70.31 Retroperitoneal mass R19.00 Gallbladder polyp K82.4 Varices of esophagus determined by endoscopy I85.00 Hepatopulmonary syndrome K76.81 Time Spent (min) 30
[2024-04-18 07:23] VITALS: BP 125/60; PULSE 109; BMI 31.2
== END 2024-04-18 11:31 | disposition home or self-care (01) ==
PROVIDERS: PCP Internal Medicine; Visit Provider Internal Medicine Gastroenterology
DX: K70.31 Alcoholic cirrhosis of liver with ascites (principal); R19.00 Intra-abdominal and pelvic swelling, mass and lump, unspecified site; K82.4 Cholesterolosis of gallbladder; I85.00 Esophageal varices without bleeding; K76.81 Hepatopulmonary syndrome
CPT/HCPCS: 99214; G2211

== ENCOUNTER → 2024-04-18 07:13 | Outpatient (BNVA) | payer OTHER, SELFPAY | PROVIDERS: PCP Internal Medicine; Visit Provider Internal Medicine Gastroenterology ==

== ENCOUNTER 2024-04-18 11:28 | Inpatient (IN) | payer OTHER, SELFPAY ==
[2024-04-18] VITALS (13 sets, daily range): BP systolic 99–136; BP diastolic 67–82; PULSE 94–105; RESP 14–22; TEMP 36.6–36.9; O2SAT 97–100; BMI 31.6; BMI 32.7
--- NOTE | ~2024-04-18 | CT_ITS ---
EXAMINATION: CT ABDOMEN AND PELVIS WITH CONTRAST CLINICAL INFORMATION: Anemia. Ascites. COMPARISON: CT dated January 04, 2024 TECHNIQUE: Multidetector volumetric images were obtained from the superior aspect of the liver through the pubic symphysis following administration 85 mL of Omnipaque 350 intravenous contrast. Sagittal and coronal reformatted images were obtained on the technologist's workstation. Oral contrast: No This CT examination was performed using dose optimization techniques as appropriate, variously including the following: *Automated exposure control *Adjustment of mA and/or kV according to patient size (this includes techniques or standardized protocols for targeted exams where dose is matched to indication/reason for exam; i.e. extremities or head) *Use of iterative reconstruction technique DLP: 973 mGy-cm FINDINGS: LUNG BASES: Left-sided pleural effusion, moderate volume. LIVER, GALLBLADDER, AND BILIARY TREE: Liver measures 22 cm with a nodular surface and heterogeneous enhancement with central decreased enhancement involving mostly the right hepatic lobe. No intrahepatic biliary ductal dilatation. Cholelithiasis. No extrahepatic biliary ductal dilatation. PANCREAS: No focal pancreatic lesion or main pancreatic ductal dilatation. SPLEEN: 15 cm. No focal mass. ADRENAL GLANDS: No nodular lesions. KIDNEYS AND URETERS: No renal mass or hydronephrosis. BLADDER: Fluid-filled. GASTROINTESTINAL TRACT: Ascites, large volume. No intestinal obstruction pattern. No pneumoperitoneum. No pneumatosis intestinalis. Sutures in the mid transverse colon likely related to prior right hemicolectomy ABDOMINAL WALL: Fat and fluid-filled large-volume umbilical hernia. LYMPH NODES: Nonspecific prominent lymph nodes, mesenteric and retroperitoneal. VASCULAR: Prominent vessels at the gastroesophageal junction. Abdominal aorta wall and iliac arteries without aneurysm or dissection. OSSEOUS STRUCTURES: Multilevel thoracolumbar spondylosis. No acute fracture or listhesis. Degenerative changes in the coxofemoral joints. Sclerotic lytic lesion with trabeculation proximal right femur CT/CT abdomen pelvis w IV con IMPRESSION: Cirrhosis with large volume of ascites likely related to portal hypertension. Spontaneous bacterial peritonitis cannot be excluded. Cholelithiasis Large fluid-filled umbilical hernia. Left-sided pleural effusion, moderate volume.. Electronically signed by: Krish Paredes MD 04/18/2024 04:02 PM EDT
--- NOTE | 2024-04-18 11:45 | PC.NURSE ---
pt presents to the ED from oncology d/t abnormal labs (HgB 5.0). hx pancreatic mass. large abdominal girth - ascites noted. pt denies pain. pt reports increased dizziness/FERMIN. scheduled for routine paracentesis every 2 weeks - next appt 04/24. upon ED arrival - a&ox4. vss and up to date. nsr on the personnel monitor. 18gIV placed in the left forearm - labs obtained/sent to lab. pt aware urine sample is needed - states he does not have to go at this time. pt currently does not display w/ any sob/wob. pt positioned upright to promote patent airway regardless. respirations even/unlabored. plan of care ongoing. call zaidi placed within reach.
[2024-04-18 12:11] LABS: Basophils Absolute Auto 0.1 X10*3/uL (0.0-0.2); Imm Gran Abs Auto 0.02 X10*3/uL (0.00-0.03); Imm Gran Pct Auto 0.5 % (0.0-0.4); Lymphocytes Absolute Auto 0.7 X10*3/uL (1.2-4.9); Lymphocytes Percent Auto 17.4 % (20-40); MANUAL DIFF FLAG SCAN; Mean Corpuscular HGB Conc 29.5 g/dl (31.0-36.0); Mean Corpuscular Hemoglobin 20.4 pg (27.0-33.0); Mean Corpuscular Volume 69.2 fL (80.0-98.0); Mean Platelet Volume 8.8 fL (9.4-12.4); Monocytes Absolute Auto 0.8 X10*3/uL (0.1-1.2); Monocytes Percent Auto 20.3 % (2-11); Neutrophils Absolute Auto 2.4 x10*3/uL (2.0-8.3); Neutrophils Percent Auto 58.8 % (45-73); Platelet Count 205 X10*3/uL (160-400); SCAN SMEAR FLAG 1
[2024-04-18 12:14] LABS: Hemoglobin 5.1 g/dl (14.0-18.0)
[2024-04-18 12:15] LABS: Hematocrit 17.3 % (42.0-52.0)
[2024-04-18 12:16] LABS: INTERNATIONAL NORM RATIO 1.3 (0.9-1.1); Prothrombin Time 15.4 SEC (10.9-12.4)
[2024-04-18 12:19] LABS: Partial Thromboplastin Time 30.2 SEC (26.0-36.8)
--- NOTE | 2024-04-18 12:31 | PC.NURSE ---
another 18gIV placed in the right AC - patent/intact. pt continues to rest comfortably in no apparent distress. no sob/wob noted. respirations remain even/unlabored. plan of care ongoing. call zaidi placed within reach.
[2024-04-18 12:34] LABS: SLIDE REVIEW VERIFIED
[2024-04-18 12:36] LABS: Alanine Aminotransferase 10 U/L (0-40); Albumin Level 2.7 g/dL (3.5-5.0); Alkaline Phosphatase 217 U/L (39-117); Anion Gap 10 (12-20); Aspartate Amino Transferase 33 U/L (5-37); Bilirubin Total 1.5 mg/dL (0.0-1.0); Blood Urea Nitrogen 10 mg/dL (9-16); Calcium 8.4 mg/dL (8.4-10.2); Carbon Dioxide 23 mmol/L (22-29); Chloride 105 mmol/L (96-108); Creatinine Clr Calc Pharmacy 122.4; Estimated Glomerular Filt Rate > 60; Ethanol < 10 mg/dL; Glucose Random 113 mg/dL (60-115); Magnesium 2.2 mg/dL (1.6-2.6); Potassium 4.5 mmol/L (3.3-5.1); Sodium 133 mmol/L (135-145); Total Protein 6.8 g/dL (6.5-8.0)
--- NOTE | 2024-04-18 13:44 | ED_ITS ---
HPI - Recheck/Abnormal Lab/Rx General Chief Complaint: Recheck/Abnormal Lab/Rx Stated Complaint: Abnormal labs Time Seen by Provider: 04/18/24 11:31 Source: patient Mode of arrival: wheelchair Limitations: no limitations History of Present Illness ED Provider: Dr. Keaton Rouse HPI narrative: 58-year-old male with pertinent history of alcoholic cirrhosis, history of PE on Eliquis, insulin-dependent diabetes mellitus, mood disorder, gastroesophageal reflux disease, pancreatic head mass followed by Dr. De Leon who was referred to the emergency department by Dr. De Leon for evaluation microcytic anemia. The patient had a routine follow-up with Dr. Rojas today to discuss the pancreatic head mass and he was found to be severely anemic on his laboratory evaluation. Patient states that he does feel lightheaded but this is normal. He states that he was chronic weakness secondary to muscle atrophy. Patient does have significant ascites but he states that he gets anywhere from 5-10 L drained on a regular basis from interventional radiology. He has not noticed any dark tarry stools or bloody stools. Related Data Home Medications ?Medication ?Instructions ?Recorded ?Confirmed bupropion HCl 300 mg 24 hr tablet, 300 mg PO DAILY 06/10/21 04/18/24 extended release folic acid 1 mg tablet 1 mg PO DAILY 06/10/21 04/18/24 thiamine HCl (vitamin B1) 100 mg 100 mg PO DAILY 06/10/21 04/18/24 tablet hydroxyzine pamoate 25 mg capsule 50 mg PO DAILY PRN itching 01/26/22 04/18/24 lorazepam 0.5 mg tablet 0.5 mg PO DAILY PRN anxiety attack 07/13/22 04/18/24 apixaban 5 mg tablet (Eliquis) 5 mg PO BID 03/27/24 04/18/24 oxycodone 5 mg tablet 5 mg PO BID PRN Pain 03/31/24 04/18/24 albuterol sulfate 90 mcg/actuation 2 puff inhalation Q6H PRN 04/18/24 04/18/24 aerosol inhaler Shortness Of Breath Or Wheezing Previous Rx's ?Medication ?Instructions ?Recorded blood sugar diagnostic (FreeStyle #100 ea 10/30/22 Lite Strips) blood-glucose meter (FreeStyle #1 ea 10/30/22 Lite Meter kit) lancets #200 ea 10/30/22 ondansetron 4 mg disintegrating 4 mg PO Q8H PRN nausea and 10/30/22 tablet vomiting #14 tabs pen needle, diabetic 31 gauge x #1,200 ea 10/31/22 5/16 (Pen Needle) furosemide 40 mg tablet 80 mg (2 x 40 mg) PO DAILY 90 days 05/07/23 #180 tabs walker #1 ea 12/04/23 carvedilol 6.25 mg tablet 6.25 mg PO BID 30 days #60 tabs 04/03/24 omeprazole 40 mg capsule,delayed 40 mg PO DAILY 90 days #90 caps 04/03/24 release rifaximin 550 mg tablet (Xifaxan) 550 mg PO BID 30 days #60 tabs 04/03/24 Allergies Allergy/AdvReac Type Severity Reaction Status Date / Time No Known Drug Allergies Allergy Mild NONE Verified 04/18/24 11:49 [NO KNOWN DRUG ALLERGIES] Review of Systems 2 Review of Systems: Yes all other systems are reviewed and are negative [facility] Past Medical History [facility] Narrative: Social history: The patient does vape nicotine occasionally but does not smoke cigarettes. He states that he does drink 1-2 beers and rum and Coke once a week. He does use marijuana edibles to help stimulate his appetite. Medical History Pulmonary nodule 1 cm or greater in diameter Pleuritic chest pain Pulmonary embolism, bilateral Cirrhosis of liver Diabetes Alcohol use disorder, moderate, dependence Recurrent left pleural effusion Pleural effusion Pericardial effusion Tachycardia Dyspnea Hydropneumothorax Pleural effusion on right Decompensation of cirrhosis of liver Cirrhosis GERD (gastroesophageal reflux disease) Esophageal varices Chronic abdominal pain Gout Peripheral neuropathy Alcoholism Elevated LFTs Surgical History S/P right knee arthroscopy History of abdominal paracentesis Hx of esophagogastroduodenoscopy History of thoracentesis H/O colonoscopy H/O cervical spine surgery H/O hemicolectomy Family History Family History Mother Cancer Sister Cancer Social History Social History Household Members: Other Household Members Other:: 1 Housing: Apartment Are you a primary caregivers homecare to a significant other at home: No Do you presently have visiting nurse or other home services: No Alcohol intake: current Alcohol intake frequency: 0-2 drinks per day Alcohol type: beer Comment: counts correct Patient Tobacco Use Status: Former Tobacco user Tobacco use type: Cigarette Years Smoked: 35 e-Cigarette/Vaping Use: Currently Using Second Hand Smoke Exposure: No Substance Use Type: Marijuana Advance Directives Date on File: 11/27/22 service: No Current occupational status: unemployed Physical Exam 2 Vital Signs: Vital Signs: Last Vital Signs Temp 98.0 F 04/19/24 07:54 Pulse 94 04/19/24 07:54 Resp 12 04/19/24 07:54 BP 117/72 04/19/24 07:54 Pulse Ox 96 04/19/24 07:16 O2 Del Method Room Air 04/19/24 07:16 BMI result Body Mass Index 31.6 Exam: General: Awake, , pleasant, cooperative in no distress Head: Normocephalic, atraumatic EENT: PERRL, Lids normal, sclera normal, conjunctiva normal, nose normal , ears normal, throat without erythema or exudates Neck: Supple, no adenopathy Lung: breath sounds symmetric, no wheezing, rales or rhonchi Chest: symmetric movement, nontender Heart: regular rate and rhythm, normal S1, S2 no murmurs or rubs Abdomen: soft, markedly distended abdomen secondary to ascites, no abdominal tenderness, diminished bowel sounds, no voluntary or involuntary guarding Rectal exam: Normal sphincter tone, no external hemorrhoids, no mass on digital exam, stool was loose and brown, strongly Hemoccult positive Back: no vertebral tenderness, no CVAT Extremities: Edema lower extremities bilaterally symmetric Neuro: Awake, alert, oriented, normal speech, cranial nerves intact, moves all extremities symmetrically Psych: Pleasant, cooperative Medications Administered Generic Name Dose Route Start Last Admin Trade Name Freq PRN Reason Stop Dose Admin Carvedilol 6.25 mg 04/18/24 21:00 04/18/24 21:39 Carvedilol 6.25 Mg Tablet PO 6.25 mg BID RYAN Administration Protocol Pantoprazole Sodium 40 mg 04/18/24 17:15 04/19/24 06:30 Pantoprazole Sodium 40 Mg/10 Ml Vial IVPUSH 40 mg BID@0630,1630 RYAN Administration Rifaximin 550 mg 04/18/24 21:00 04/18/24 21:40 Rifaximin 550 Mg Tablet PO 550 mg BID RYAN Administration Sodium Chloride 3 ml 04/19/24 00:00 04/19/24 00:29 0.9 % Sodium Chloride Flush 3 Ml Syringe IVFLUSH Not Given QSHIFT RYAN Discontinued Medications Generic Name Dose Route Start Last Admin Trade Name Freq PRN Reason Stop Dose Admin Iohexol 85 ml 04/18/24 14:45 04/18/24 14:50 Iohexol 350 Mg/Ml 75 Ml Infus..Btl IV 04/18/24 14:46 85 ml ONCE ONE Administration Medical Decision Making Medical Decision Making MDM Narrative: 58-year-old male with pertinent history of alcoholic cirrhosis, history of PE on Eliquis, insulin-dependent diabetes mellitus, mood disorder, gastroesophageal reflux disease, pancreatic head mass followed by Dr. De Leon who was referred to the emergency department by Dr. De Leon for evaluation microcytic anemia. The patient had a routine follow-up with Dr. Rojas today to discuss the pancreatic head mass sent to ED from Dr. De Leon's office for severe anemia with an H&H of 5.0 and 17.2. Abdomen is consistent with his cirrhosis and ascites. Rectal exam did reveal loose brown stool which was strongly Hemoccult positive. Differential diagnosis: ?Includes but is not limited to GI bleed, retroperitoneal bleed, electrolyte abnormalities Course: 15:13 My independent interpretation patient's laboratory evaluation as follows: WBC low 4000 with normal ANC 2.4, microcytic anemia H&H 5.1 and 17.3 with an MCV of 69.2. Platelet count was 330763. PT INR elevated 15.4 and 1.3. Total bilirubin elevated 1.5. Alk-phos elevated to 17. Albumin low 2.7. Urinalysis was negative. Occult stool was positive. Urine tox is positive for oxycodone, cocaine and marijuana. Patient's microcytic anemia and positive occult stool suggested the patient has a GI bleed. The patient's graphic coordinator, Dr. Graham did evaluate the patient and states that once the patient was stabilize they will do an endoscopy and colonoscopy on the patient. Dr. De Leon recommended CT abdomen pelvis with IV contrast to rule out intraperitoneal/fracture peritoneal-this study is pending. I did order 2 units of packed red blood cells to be transfused. Patient's presentation was discussed over tiger text with the covering hospitalist ,Dr. Casas Lab Data 04/19/24 06:03 04/19/24 06:03 Labs: Lab Results 04/18/24 04/18/24 04/18/24 Range/Units 12:01 12:02 13:59 WBC 4.0 L (4.8-10.8) X10*3/uL RBC 2.50 L (4.60-5.80) X10*6/uL Hgb 5.1 L* (14.0-18.0) g/dl Hct 17.3 L* (42.0-52.0) % MCV 69.2 L (80.0-98.0) fL MCH 20.4 L (27.0-33.0) pg MCHC 29.5 L (31.0-36.0) g/dl RDW 19.0 H (11.0-16.0) % Plt Count 205 (160-400) X10*3/uL MPV 8.8 L (9.4-12.4) fL Immature Gran % (Auto) 0.5 H (0.0-0.4) % Neut % (Auto) 58.8 (45-73) % Lymph % (Auto) 17.4 L (20-40) % [place] % (Auto) 20.3 H (2-11) % Eos % (Auto) 1.0 (0-4) % Baso % (Auto) 2.0 (0-2) % Lymph # (Auto) 0.7 L (1.2-4.9) X10*3/uL [place] # (Auto) 0.8 (0.1-1.2) X10*3/uL Eos # (Auto) 0.0 (0.0-0.4) X10*3/uL Baso # (Auto) 0.1 (0.0-0.2) X10*3/uL Abs Immat Gran (auto) 0.02 (0.00-0.03) X10*3/uL Absolute Neuts (auto) 2.4 (2.0-8.3) x10*3/uL Absolute Nucleated RBC 0.000 (0.0-0.012) X10*3/uL Nucleated RBC % (auto) 0.0 (0.0-0.2) /100WBC Smear Tech's Comments VERIFIED PT 15.4 H (10.9-12.4) SEC INR 1.3 H (0.9-1.1) APTT 30.2 (26.0-36.8) SEC Sodium 133 L (135-145) mmol/L Potassium 4.5 (3.3-5.1) mmol/L Chloride 105 (96-108) mmol/L Carbon Dioxide 23 (22-29) mmol/L Anion Gap 10 L (12-20) BUN 10 (9-16) mg/dL Creatinine 0.97 (0.5-1.4) mg/dL Estim Creat Clear Calc 122.4 Estimated GFR > 60 Random Glucose 113 (60-115) mg/dL Calcium 8.4 (8.4-10.2) mg/dL Magnesium 2.2 (1.6-2.6) mg/dL Total Bilirubin 1.5 H (0.0-1.0) mg/dL AST 33 (5-37) U/L ALT 10 (0-40) U/L Alkaline Phosphatase 217 H (39-117) U/L Total Protein 6.8 (6.5-8.0) g/dL Albumin 2.7 L (3.5-5.0) g/dL Urine Color Dark Yellow Urine Appearance Cloudy Urine pH 5.5 (5.0-9.0) Ur Specific [place] 1.020 (1.005-1.025) Urine Protein Negative (Neg-Trace) mg/dL Urine Glucose (UA) Negative (Negative) mg/dL Urine Ketones Negative (Negative) mg/dL Urine Blood Negative (Negative) Urine Nitrite Negative (Negative) Ur Leukocyte Esterase Negative (Negative) Urine RBC 0-2 (0-2) /HPF Urine WBC 0-5 (0-5) /HPF Ur Squamous Epith Cells 0-2 (0-2) /HPF Urine Bacteria None Seen (None Seen) Hyaline Casts 3-5 (0-2) /LPF Stool Occult Blood POSITIVE (NEGATIVE) Urine Opiates Screen Not Detected (Not Detect) Ur Buprenorphine Scrn Not Detected (Not Detect) ng/mL Ur Oxycodone Screen Positive H (Not Detect) ng/mL Urine Methadone Screen Not Detected (Not Detect) ng/mL Urine Fentanyl Screen Not Detected (Not Detect) Ur Barbiturates Screen Not Detected (Not Detect) Ur Phencyclidine Scrn Not Detected (Not Detect) Ur Amphetamines Screen Not Detected (Not Detect) U Benzodiazepines Scrn Not Detected (Not Detect) Urine Cocaine Screen POSITIVE H (Not Detect) U Marijuana (THC) Screen POSITIVE H (Not Detect) Ethyl Alcohol < 10 mg/dL Blood Type A Positive Antibody Screen NEGATIVE Crossmatch See Detail Critical Care Time Critical Care Time Critical Care Time: Yes Total Critical Care Time: 45 Attestation: Critical Care: The patient was critically ill with a high probability of imminent or life threatening deterioration. I spent greater than 30 minutes of discontinuous time evaluating the patient,delivering critical care at the bedside, discussing and evaluating pertinent data with consultants. Critical care time does not include time spent performing separately billable procedures or teaching. Total time spent performing critical care was 45 minutes. Discharge Plan Discharge Clinical Impression: Alcoholic cirrhosis of liver with ascites Patient Disposition: Admitted As Inpatient Interventions: Admission Worksheet (ED) Last Done: 04/18/24 17:49 Discharge Date/Time: 04/18/24 18:50
[2024-04-18 14:08] LABS: OBS Int Ctl Valid YES; OBS1 POSITIVE (NEGATIVE)
[2024-04-18 14:09] LABS: Appearance Urine Cloudy; Color Urine Dark Yellow; Glucose Urine UA Negative (Negative); Leukocyte Esterase Urine Negative (Negative); Nitrite Urine Negative (Negative); PH 5.5 (5.0-9.0); Urine Blood Negative (Negative); Urine Ketones Negative (Negative); Urine Protein Negative (Neg-Trace)
[2024-04-18 14:13] LABS: Bacteria Urine None Seen (None Seen); RBC Urine 0-2 /HPF (0-2); Squamous Epithelial Cell Urine 0-2 /HPF (0-2); WBC Urine 0-5 /HPF (0-5)
--- NOTE | 2024-04-18 14:15 | PC.NURSE ---
pt currently receiving first 15min of PRBC infusion. pt tolerating well w/o any complications. VS remain stable. nsr on the pvc monitor. no sob/wob noted. respirations remain even/unlabored. plan of care ongoing.
[2024-04-18 14:17] LABS: Amphetamine Screen Urine Not Detected (Not Detect); Barbiturates, Urine Not Detected (Not Detect); Benzodiazepines Screen Urine Not Detected (Not Detect); Buprenorphine Scr Not Detected (Not Detect); Cannabinoid Screen Urine POSITIVE (Not Detect); Cocaine Screen Urine POSITIVE (Not Detect); Fentanyl, urine Not Detected (Not Detect); Methadone Screen, Urine Not Detected (Not Detect); Opiate Screen Urine Not Detected (Not Detect); Oxycodone Screen Urine Positive (Not Detect); Phencyclidine Screen Urine Not Detected (Not Detect)
--- NOTE | 2024-04-18 14:27 | PC.NURSE ---
pt tolerated first 15 min of PRBC infusion well c/o complications. infusion currently running @ 180mls/hr. vss and up to date. nsr on the monitoring manager. respirations remain even/unlabored. lights dimmed to promote comfort. call zaidi placed within reach.
[2024-04-18] MEDS: iohexoL 350 MG/ML 75 ML INFUS..BTL 85 ML IV (14:50)
--- NOTE | 2024-04-18 16:04 | P.HPHOSP_ITS ---
History of Present Illness Date of Service: 04/18/24 Attending physician on admission: Robert Casas Chief Complaint: Abnormal labs, anemia Pt is a 58-year-old male with a complicated PMH significant for?alcoholic cirrhosis with recurrent ascites requiring bi-weekly paracentesis, history of PE in early 2023 on Eliquis, portal hypertension gastropathy, esophageal varices bleedings/p banding x4 in 2022, hx of recurrent right knee septic arthritis, adenoma colon s/p terminal ileum resection and right hemicolectomy, mood disorder, and pancreatic head mass followed by Dr. De Leon who presents to the ED from referral by Dr. De Leon as routine labs found microcytic anemia with H&H 5.0/70.2 and MCV 69.6. Patient himself denies any acute medical complaints at this time saying he feels ?the exact same as I always do?. However, has significant comorbidities in many chronic conditions, including chronic lightheadedness and dizziness with position changes, fatigue, FERMIN especially going upstairs, increasing abdominal swelling and left-sided abdominal pain, and chills. Denies fever. No productive cough. Of note, patient presented to the ED here on 02/20 for hematemesis and noted to have recurrent esophageal variceal bleeding that required massive transfusion protocol where he received 4 PRBCs, 1 unit platelets, and 1 unit FFP. Was transferred [place] [facility] where he underwent elective intubation and had EGD demonstrating esophageal varices with bleeding s/p banding x3. Recommendation was for in-house TIPs, but pt declined and left AMA on 02/23 before procedure could be done. Patient currently denies hematemesis, coffee-ground emesis, hemoptysis, hematuria, hematochezia, or melena. No recent fall or trauma with bleeding. Reports next scheduled paracentesis is on 04/24. The patient states that he has significantly cut back on his drinking. Reports last drink ?a few beers a few days ago. Denies symptoms. In the ED pt was tachycardic up to 109, tachypneic up to 22 and initially hypertensive at 143/73. Labs were significant for H&H 5.1/17.3, WBCs 4.0, and MCV 69.2, sodium 133, bilirubin 1.5, and alk-phos 217. Stool positive for occult blood. UA negative for UTI. Tox screen positive for oxycodone, cocaine, and marijuana. CT of abdomen and pelvis showing cirrhosis with large volume of ascites, large fluid-filled umbilical hernia, and left-sided pleural effusion moderate in volume. Pt was transfused 2 units of PRBCs. Pt will be admitted to the hospital for treatment and further evaluation of acute anemia requiring transfusion of multiple units likely secondary from GI bleed. Review of Systems 2 Review of Systems: Yes all other systems are reviewed and are negative [facility] Medical History Pulmonary nodule 1 cm or greater in diameter Pleuritic chest pain Pulmonary embolism, bilateral Cirrhosis of liver Diabetes Alcohol use disorder, moderate, dependence Recurrent left pleural effusion Pleural effusion Pericardial effusion Tachycardia Dyspnea Hydropneumothorax Pleural effusion on right Decompensation of cirrhosis of liver Cirrhosis GERD (gastroesophageal reflux disease) Esophageal varices Chronic abdominal pain Gout Peripheral neuropathy Alcoholism Elevated LFTs Family History Mother Cancer Sister Cancer Surgical History S/P right knee arthroscopy History of abdominal paracentesis Hx of esophagogastroduodenoscopy History of thoracentesis H/O colonoscopy H/O cervical spine surgery H/O hemicolectomy Social History Household Members: None Household Members Other:: 1 Housing: Apartment Are you a primary direct care provider to a significant other at home: No Do you presently have visiting nurse or other home services: No Alcohol intake: current Alcohol intake frequency: 0-2 drinks per day Alcohol type: beer Comment: counts correct Patient Tobacco Use Status: Former Tobacco user Tobacco use type: Cigarette Years Smoked: 35 e-Cigarette/Vaping Use: Currently Using Second Hand Smoke Exposure: No Substance Use Type: Marijuana Advance Directives Date on File: 11/27/22 service: No Current occupational status: unemployed Meds Allergies Allergy/AdvReac Type Severity Reaction Status Date / Time No Known Drug Allergies Allergy Mild NONE Verified 04/18/24 11:49 [NO KNOWN DRUG ALLERGIES] Home Medications ?Medication ?Instructions ?Recorded ?Confirmed ?Last Taken ?Type bupropion HCl 300 mg 24 hr tablet, 300 mg PO DAILY 06/10/21 04/18/24 04/16/24 History extended release folic acid 1 mg tablet 1 mg PO DAILY 06/10/21 04/18/24 04/16/24 History thiamine HCl (vitamin B1) 100 mg 100 mg PO DAILY 06/10/21 04/18/24 04/16/24 History tablet hydroxyzine pamoate 25 mg capsule 50 mg PO DAILY PRN itching 01/26/22 04/18/24 04/16/24 History lorazepam 0.5 mg tablet 0.5 mg PO DAILY PRN anxiety attack 07/13/22 04/18/24 04/16/24 History apixaban 5 mg tablet (Eliquis) 5 mg PO BID 03/27/24 04/18/24 04/16/24 History oxycodone 5 mg tablet 5 mg PO BID PRN Pain 03/31/24 04/18/24 04/16/24 History albuterol sulfate 90 mcg/actuation 2 puff inhalation Q6H PRN 04/18/24 04/18/24 04/16/24 History aerosol inhaler Shortness Of Breath Or Wheezing Physical Exam 2 Vital Signs and Narrative: Vital Signs: Last Vital Signs Temp 98.0 F 04/18/24 14:26 Pulse 94 04/18/24 14:26 Resp 14 04/18/24 14:26 BP 130/74 04/18/24 14:26 Pulse Ox 98 04/18/24 13:58 O2 Del Method Room Air 04/18/24 13:58 BMI result Body Mass Index 31.6 General: AOx3, no acute distress Resp: CTA bilaterally CVS: S1, S2, RRR GI: +BS, soft, moderately distended w/reducible umbilical hernia. Mild right- sided tenderness. Skin: Warm, dry Neuro: Cranial nerves II-XII grossly intact bilaterally. Motor grossly intact bilaterally Extremities: 1-2+ bilateral pitting edema, especially in the amkles Psych: Appropriate affect Results Labs 04/18/24 12:01 04/18/24 12:01 Labs: Laboratory Results - last 24 hr 04/18/24 04/18/24 04/18/24 12:01 12:02 13:59 MCV 69.2 L MCH 20.4 L MCHC 29.5 L RDW 19.0 H Plt Count 205 MPV 8.8 L Immature Gran % (Auto) 0.5 H Neut % (Auto) 58.8 Lymph % (Auto) 17.4 L [place] % (Auto) 20.3 H Eos % (Auto) 1.0 Baso % (Auto) 2.0 Lymph # (Auto) 0.7 L [place] # (Auto) 0.8 Eos # (Auto) 0.0 Baso # (Auto) 0.1 Abs Immat Gran (auto) 0.02 Absolute Neuts (auto) 2.4 Absolute Nucleated RBC 0.000 Nucleated RBC % (auto) 0.0 Smear Tech's Comments VERIFIED PT 15.4 H INR 1.3 H APTT 30.2 Anion Gap 10 L Estim Creat Clear Calc 122.4 Estimated GFR > 60 Random Glucose 113 Calcium 8.4 Magnesium 2.2 Total Bilirubin 1.5 H AST 33 ALT 10 Alkaline Phosphatase 217 H Total Protein 6.8 Albumin 2.7 L Urine Color Dark Yellow Urine Appearance Cloudy Urine pH 5.5 Ur Specific [place] 1.020 Urine Protein Negative Urine Glucose (UA) Negative Urine Ketones Negative Urine Blood Negative Urine Nitrite Negative Ur Leukocyte Esterase Negative Urine RBC 0-2 Urine WBC 0-5 Ur Squamous Epith Cells 0-2 Urine Bacteria None Seen Hyaline Casts 3-5 Stool Occult Blood POSITIVE Urine Opiates Screen Not Detected Ur Buprenorphine Scrn Not Detected Ur Oxycodone Screen Positive H Urine Methadone Screen Not Detected Urine Fentanyl Screen Not Detected Ur Barbiturates Screen Not Detected Ur Phencyclidine Scrn Not Detected Ur Amphetamines Screen Not Detected U Benzodiazepines Scrn Not Detected Urine Cocaine Screen POSITIVE H U Marijuana (THC) Screen POSITIVE H Ethyl Alcohol < 10 Blood Type A Positive Antibody Screen NEGATIVE Crossmatch See Detail Assessment and Plan (1) Acute blood loss anemia: Status: Acute Plan Pt is a 58-year-old male with a complicated PMH significant for?alcoholic cirrhosis with recurrent ascites requiring bi-weekly paracentesis, history of PE in early 2023 on Eliquis, portal hypertension gastropathy, esophageal varices bleedings/p banding x4 in 2022, hx of recurrent right knee septic arthritis, adenoma colon s/p terminal ileum resection and right hemicolectomy, mood disorder, and pancreatic head mass followed by Dr. De Leon who presents to the ED from referral by Dr. De Leon as routine labs found microcytic anemia with H&H 5.0/70.2 and MCV 69.6. Pt will be admitted to the hospital for treatment and further evaluation of acute anemia requiring transfusion of multiple units likely secondary from GI bleed. Acute anemia Likely multifactorial: Acute GI bleed and iron deficiency H&H 5.1/17.3 with MCV 69.2, down from 9 0.5/29.8 with MCV 83.5 on 02/21/24 FOBT+, iron 8, iron saturation 3% Patient with hx recurrent esophageal variceal bleeding, currently denies hematemesis, melena, hematochezia Patient asymptomatic, clinically looks stable Patient transfused 2 units PRBCs in the ED Protonix IV b.i.d. Will hold on octreotide as no witnessed esophageal bleeding Will hold Eliquis Heme/Onc consult GI consult NPO past midnight for likely EGD in the morning Hx of PE Hold Eliquis due to anemia Alcoholic cirrhosis Continue diuretics, rifaximin, thiamine, folate Lactulose p.r.n. Portal hypertensive gastropathy Will give IV Protonix Continue sucralfate Mood disorder Continue mood stabilizers Full Code Attending:?Dr. Casas DVT Prophylaxis: Pneumatic boots due to blood loss anemia Given patient's history of esophageal varices requiring emergent banding, as well as severity of acute blood loss from likely GI bleed, pt will require inpatient level of care for at least two nights for close monitoring of labs, specialist consults with GI and heme/onc, and likely EGD in the morning. Quality Stroke Does the patient have a stroke diagnosis?: No VTE Prior VTE?: No VTE Risk Level:: Medical - moderate - high VTE Device Contraindication: N/A - Device Ordered VTE Drug Contraindication: Treatment Not Indicated
--- NOTE | 2024-04-18 16:18 | P.CNGI_ITS ---
History of Present Illness Data of Consult Service Date: 04/18/24 Requesting physician: Keaton Rouse Primary Care Provider: Unknown Physician HPI Reason for consult: severe acute on chronic anemia 58 YM with ESLD complicated by ascites, portal hypertension and known esophageal varices (status post multiple EGDs in the past with band ligation - last EGD in 01/2024) sent to [facility] ED by Oncology after labs showed severe acute on chronic anemia with H & H of 5 & 17.2, repeat labs after 1 hour was stable at 5.1 & 7.3) (Of note pt has a baseline Hb of 9) He also has a history of pulmonary emboli and is on oral anticoagulation with apixaban (pt reports last dose was on 04/16/24). Patient has therapeutic paracentesis every 2 weeks and last paracentesis was performed on 04/10/24 as an outpatient. Pt complains of worsening fatigue and orthostatic dizziness and denies recent nausea, vomiting, hematemesis, melena or hematochezia Pt was last seen at [facility] ED on 02/21/24 with massive UGI bleeding and was transferred to [facility]. He had an EGD at [facility] which showed esophageal varices which were banded. Pt reports he is scheduled for a TIPPS placement on 05/14/24 at [facility] Pt stated he continues to drink 2 beers a day In the ED labs showed WBCs 4.0, and MCV 69.2, sodium 133, bilirubin 1.5, and alk-phos 217. Stool positive for occult blood. UA negative for UTI. Tox screen positive for oxycodone, cocaine, and marijuana. 04/18/[address] SCAN SHOWED: Cirrhosis with large volume of ascites likely related to portal hypertension. Spontaneous bacterial peritonitis cannot be excluded. Cholelithiasis Large fluid-filled umbilical hernia. Left-sided pleural effusion, moderate volume.. Review of Systems 2 Review of Systems: Yes all other systems are reviewed and are negative PMFSH Past Medical History Medical History Pulmonary nodule 1 cm or greater in diameter Pleuritic chest pain Pulmonary embolism, bilateral Cirrhosis of liver Diabetes Alcohol use disorder, moderate, dependence Recurrent left pleural effusion Pleural effusion Pericardial effusion Tachycardia Dyspnea Hydropneumothorax Pleural effusion on right Decompensation of cirrhosis of liver Cirrhosis GERD (gastroesophageal reflux disease) Esophageal varices Chronic abdominal pain Gout Peripheral neuropathy Alcoholism Elevated LFTs Family History Family History Mother Cancer Sister Cancer Surgical History Surgical History S/P right knee arthroscopy History of abdominal paracentesis Hx of esophagogastroduodenoscopy History of thoracentesis H/O colonoscopy H/O cervical spine surgery H/O hemicolectomy Social History Social History Household Members: Other Household Members Other:: 1 Housing: Apartment Are you a primary regular senior care provider to a significant other at home: No Do you presently have visiting nurse or other home services: No Alcohol intake: current Alcohol intake frequency: holidays/special occasions only Alcohol type: beer Comment: counts correct Patient Tobacco Use Status: Former Tobacco user Tobacco use type: Cigarette Years Smoked: 35 e-Cigarette/Vaping Use: Currently Using Second Hand Smoke Exposure: No Substance Use Type: Marijuana Advance Directives Date on File: 11/27/22 service: No Current occupational status: unemployed Meds Allergies Allergy/AdvReac Type Severity Reaction Status Date / Time No Known Drug Allergies Allergy Mild NONE Verified 04/22/24 07:24 [NO KNOWN DRUG ALLERGIES] Home Medications ?Medication ?Instructions ?Recorded ?Confirmed ?Last Taken ?Type bupropion HCl 300 mg 24 hr tablet, 300 mg PO DAILY 06/10/21 04/22/24 04/16/24 History extended release folic acid 1 mg tablet 1 mg PO DAILY 06/10/21 04/22/24 04/16/24 History thiamine HCl (vitamin B1) 100 mg 100 mg PO DAILY 06/10/21 04/22/24 04/16/24 History tablet hydroxyzine pamoate 25 mg capsule 50 mg PO DAILY PRN itching 01/26/22 04/22/24 04/16/24 History lorazepam 0.5 mg tablet 0.5 mg PO DAILY PRN anxiety attack 07/13/22 04/22/24 04/16/24 History apixaban 5 mg tablet (Eliquis) 5 mg PO BID 03/27/24 04/22/24 04/17/24 History oxycodone 5 mg tablet 5 mg PO BID PRN Pain 03/31/24 04/22/24 04/16/24 History albuterol sulfate 90 mcg/actuation 2 puff inhalation Q6H PRN 04/18/24 04/22/24 04/16/24 History aerosol inhaler Shortness Of Breath Or Wheezing Physical Exam 2 Vital Signs: Vital Signs: Last Vital Signs Temp 98.4 F 04/18/24 16:12 Pulse 101 H 04/18/24 16:12 Resp 18 04/18/24 16:12 BP 127/78 04/18/24 16:12 Pulse Ox 98 04/18/24 13:58 O2 Del Method Room Air 04/18/24 13:58 BMI result Body Mass Index 31.6 Const: General: no acute distress and ill appearing Nutritional Appearance: obese Orientation/consciousness: patient oriented x3 Limitations: physical limitations HEENT: Head: Yes normal to inspection Ears: hearing grossly normal bilaterally Eyes: Sclerae: sclerae normal Pupils: Equal, round and reactive pupils present Neck: Neck: Yes normal visual inspection Chest: Chest palpation & inspection: normal inspection of the chest Resp: Effort & Inspection: normal respiratory effort Auscultation: clear to auscultation bilaterally Cardio: Palpation: normal PMI Rate: regular rate Rhythm: regular rhythm Heart sounds: S1 normal heart sound present, S2 normal heart sound present and no murmurs GI: Inspection: Yes distended and Yes visible herniation (reducible umbilical hernia) Palpation (GI): Soft to palpation, nontender and No hepatosplenomegaly present Auscultation: normal bowel sounds Rectal Exam - Male: Yes deferred Skin: General skin exam: no rashes or lesions noted Neuro: General: patient oriented x3, gait normal and moves all extremities Cranial nerves: Yes Equal, round and reactive pupils present Extrem: General: Yes pedal edema and Yes other (no asterixis) Psych: Appearance: grossly normal Mental Status: mental status grossly normal Results Labs 04/19/24 06:03 04/19/24 06:03 Labs: Short CBC 04/18/24 Range/Units 12:01 WBC 4.0 L (4.8-10.8) X10*3/uL Hgb 5.1 L* (14.0-18.0) g/dl Hct 17.3 L* (42.0-52.0) % Plt Count 205 (160-400) X10*3/uL BMP 04/18/24 12:01 Sodium 133 L Potassium 4.5 Chloride 105 Carbon Dioxide 23 BUN 10 Creatinine 0.97 Calcium 8.4 Liver Function 04/18/24 Range/Units 12:01 Total Bilirubin 1.5 H (0.0-1.0) mg/dL AST 33 (5-37) U/L ALT 10 (0-40) U/L Alkaline Phosphatase 217 H (39-117) U/L Albumin 2.7 L (3.5-5.0) g/dL Urine 04/18/24 Range/Units 13:59 Urine Color Dark Yellow Urine Appearance Cloudy Urine pH 5.5 (5.0-9.0) Ur Specific [place] 1.020 (1.005-1.025) Urine Protein Negative (Neg-Trace) mg/dL Urine Glucose (UA) Negative (Negative) mg/dL Assessment and Plan (1) Acute blood loss anemia: Status: Acute (2) Alcoholic cirrhosis of liver: Qualifiers: Ascites presence: with ascites Qualified Code(s): K70.31 - Alcoholic cirrhosis of liver with ascites Status: Acute Plan 58 YM with ESLD complicated by ascites, portal hypertension and known esophageal varices (status post multiple EGDs in the past with band ligation - last EGD in 01/2024) sent to [facility] ED by Oncology after labs showed severe acute on chronic anemia with H & H of 5 & 17.2, repeat labs after 1 hour was stable at 5.1 & 7.3) (Of note pt has a baseline Hb of 9) He also has a history of pulmonary emboli and is on oral anticoagulation with apixaban (pt reports last dose was on 04/16/24). Patient has therapeutic paracentesis every 2 weeks and last paracentesis was performed on 04/10/24 as an outpatient. Pt complains of worsening fatigue and orthostatic dizziness and denies recent nausea, vomiting, hematemesis, melena or hematochezia Pt was last seen at [facility] ED on 02/21/24 with massive UGI bleeding and was transferred to [facility]. He had an EGD at [facility] which showed esophageal varices which were banded. Pt reports he is scheduled for a TIPPS placement on 05/14/24 at [facility] for management of ascites and esophageal varices Source of anemia is unclear - ? slow variceal bleed/bleeding from portal gastropathy versus hemolysis. RECOMMENDATIONS: 1. Agree with transfusion of 4 U PRBC and monitor CBC twice daily post blood transfusion. 2. Octreotide infusion and IV PPI twice daily 3. Hemolysis workup 4. Pt scheduled for EGD on Sunday. Please contact oncall GI provider if pt develops overt GI bleeding Pt signed out to Dr Vizcarra. ADDENDUM: hospital course: Patient was admitted for chronic blood loss anemia. He was transfused 4 units rBC. Hemoglobin is 6.2 at time of discharge. Was treated with IV PPI and octreotide plan was for EGD on 04/21/2024 however patient decided to leave against medical advice. He was aware of risks of doing so. For history of pulmonary embolism is apixaban was on hold for severe anemia. For alcoholic cirrhosis he was continued on rifaximin Lasix. For mood disorder was continued on bupropion and Ativan. Procedures Date of Service Date of Service: 05/12/24
--- NOTE | 2024-04-18 16:31 | PC.NURSE ---
pt currently receiving 2nd unit of PRBC at this time. pt tolerating well. hospitalist bedside assessing/speaking w/ pt in regards to plan of care moving forward. pt pending admission at this time. respirations remain even/unlabored. plan of care ongoing. call zaidi placed within reach.
--- NOTE | 2024-04-18 16:57 | PHA.MEDREC ---
Addendum entered by González Self RPh 04/18/24 17:49: MED REC CHECKED BY [facility] Original Note: Pharmacy Consult ? Medication Reconciliation Pharmacy has completed the medication reconciliation. Spoke with patient and he confirmed what he is taking. Patient confirmed his Eliquis 2.5mg tab 1 tab BID but states he has not taking that medication in 2 days along with all his other medications, he states he forgot to take it yesterday and didn't take any this morning. I also asked about his Insulins and he states he has not taken either his Glargine and Lispro in months due to everything my levels are checked in the hospital or doctors office it has not been normal. He was not sure if he was still taking Paroxitine 20mg tab or Spironolactone 100mg and states the names do not seem familair.
[2024-04-18] MEDS: Pantoprazole Sodium 40 MG/10 ML VIAL IVPUSH (18:00)
--- NOTE | 2024-04-18 18:29 | PC.NURSE ---
2nd unit of PRBCs completely infused at this time. pt tolerated infusion well. no signs of reactions/complications noted. vss and up to date. nsr/slightly sinus tachy on the shelter monitor. pt waiting to be transported to bed assignment at this time. plan of care ongoing.
[2024-04-18] MEDS: carvediloL 6.25 MG TABLET PO (21:39)
[2024-04-18] MEDS: rifAXIMin 550 MG TABLET PO (21:40)
[2024-04-19 03:42] VITALS: BP 109/60; PULSE 93; RESP 18; TEMP 36.8; O2SAT 97
[2024-04-19 06:27] LABS: Mean Corpuscular HGB Conc 29.7 g/dl (31.0-36.0); Mean Corpuscular Hemoglobin 21.4 pg (27.0-33.0); Mean Corpuscular Volume 72.1 fL (80.0-98.0); Mean Platelet Volume 9.1 fL (9.4-12.4); Platelet Count 191 X10*3/uL (160-400); Red Cell Distribution Width 20.2 % (11.0-16.0); White Blood Count 3.8 X10*3/uL (4.8-10.8)
[2024-04-19] MEDS: Pantoprazole Sodium 40 MG/10 ML VIAL IVPUSH ×2 (06:30→17:07)
[2024-04-19 06:32] LABS: Hematocrit 20.9 % (42.0-52.0); Hemoglobin 6.2 g/dl (14.0-18.0)
[2024-04-19 06:43] LABS: Anion Gap 10 (12-20); Blood Urea Nitrogen 8 mg/dL (9-16); Calcium 8.2 mg/dL (8.4-10.2); Carbon Dioxide 22 mmol/L (22-29); Chloride 106 mmol/L (96-108); Creatinine Clr Calc Pharmacy 147.1; Estimated Glomerular Filt Rate > 60; Glucose Random 103 mg/dL (60-115); Potassium 3.9 mmol/L (3.3-5.1); Sodium 134 mmol/L (135-145)
[2024-04-19 07:16] VITALS: BP 116/71; PULSE 95; RESP 16; TEMP 36.9; O2SAT 96
[2024-04-19 07:38] VITALS: BP 116/71; PULSE 95; RESP 12; TEMP 36.9
[2024-04-19 07:46] LABS: Lactate Dehydrogenase 165 U/L (118-273)
[2024-04-19 07:54] VITALS: BP 117/72; PULSE 94; RESP 12; TEMP 36.7
--- NOTE | 2024-04-19 08:47 | P.PNIM_ITS ---
Subjective Subjective Date of Service: 04/19/24 Interval History: no bleeding, feeling better Physical Exam 2 Vital Signs: Vital Signs: Last Vital Signs Temp 98.0 F 04/19/24 07:54 Pulse 94 04/19/24 07:54 Resp 12 04/19/24 07:54 BP 117/72 04/19/24 07:54 Pulse Ox 96 04/19/24 07:16 O2 Del Method Room Air 04/19/24 07:16 BMI result Body Mass Index 32.7 General: AO X 3, no acute distress Resp: CTA bilateral, no accessory muscles used CVS: S1,S2,RRR GI: soft, non tender, distended Neuro: motor grossly intact, alert Psych: appropriate affect, appropriate insight Objective Data Active Medications Acetaminophen (Acetaminophen 325 Mg Tablet) 650 mg PO Q6H PRN PRN Reason: Pain, Mild (Pain Scale 1-3), fever or headache Albuterol Sulfate (Albuterol Sulfate 90 Mcg 8 Gm Inhaler) 2 puff INHALE Q6H PRN PRN Reason: Shortness Of Breath Or Wheezing Benzonatate (Benzonatate 100 Mg Capsule) 100 mg PO TID PRN PRN Reason: Cough Bupropion HCl (Bupropion Hcl Xl 300 Mg Tab.Er.24h) 300 mg PO DAILY RYAN Calcium Carbonate (Calcium Carbonate 750 Mg Tab.Chew) 750 mg PO Q4H PRN PRN Reason: Heartburn Carvedilol (Carvedilol 6.25 Mg Tablet) 6.25 mg PO BID RYAN; Protocol Last Admin: 04/18/24 21:39 Dose: 6.25 mg Documented By: JESUS Folic Acid (Folic Acid 1 Mg Tablet) 1 mg PO DAILY RYAN Furosemide (Furosemide 40 Mg Tablet) 80 mg PO DAILY RYAN; Protocol Hydroxyzine HCl (Hydroxyzine Hcl 50 Mg Tablet) 50 mg PO DAILY PRN PRN Reason: itching Lorazepam (Lorazepam 0.5 Mg Tablet) 0.5 mg PO DAILY PRN PRN Reason: anxiety attack Magnesium Hydroxide (Milk Of Magnesia 30 Ml Oral.Susp) 30 ml PO DAILY PRN PRN Reason: Constipation Melatonin (Melatonin 3 Mg Tablet) 6 mg PO BEDTIME PRN PRN Reason: Insomnia Octreotide Acetate (Octreotide Acetate 100 Mcg/Ml Ampul) 50 mcg IVPUSH Q8H RYAN Ondansetron HCl (Ondansetron Hcl 4 Mg/2 Ml Vial) 4 mg IVPUSH Q8H PRN PRN Reason: Nausea and Vomiting Oxycodone HCl (Oxycodone Hcl Immed Release 5 Mg Tablet) 5 mg PO BID PRN PRN Reason: Pain, Moderate(Pain Scale 4-6) Pantoprazole Sodium (Pantoprazole Sodium 40 Mg/10 Ml Vial) 40 mg IVPUSH BID@0630,1630 [facility] Last Admin: 04/19/24 06:30 Dose: 40 mg Documented By: JESUS Rifaximin (Rifaximin 550 Mg Tablet) 550 mg PO BID [facility] Last Admin: 04/18/24 21:40 Dose: 550 mg Documented By: JESUS Sodium Chloride (0.9 % Sodium Chloride Flush 3 Ml Syringe) 3 ml IVFLUSH QSHIFT [facility] Last Admin: 04/19/24 00:29 Dose: Not Given Documented By: JESUS Non-Admin Reason: Previously Administered Thiamine HCl (Thiamine Hcl 100 Mg Tablet) 100 mg PO DAILY [facility] Labs 04/19/24 06:03 04/19/24 06:03 Labs: Laboratory Results - last 24 hr 04/18/24 04/18/24 04/18/24 12:01 12:02 13:59 MCV 69.2 L MCH 20.4 L MCHC 29.5 L RDW 19.0 H Plt Count 205 MPV 8.8 L Immature Gran % (Auto) 0.5 H Neut % (Auto) 58.8 Lymph % (Auto) 17.4 L [place] % (Auto) 20.3 H Eos % (Auto) 1.0 Baso % (Auto) 2.0 Lymph # (Auto) 0.7 L [place] # (Auto) 0.8 Eos # (Auto) 0.0 Baso # (Auto) 0.1 Abs Immat Gran (auto) 0.02 Absolute Neuts (auto) 2.4 Absolute Nucleated RBC 0.000 Nucleated RBC % (auto) 0.0 Smear Tech's Comments VERIFIED PT 15.4 H INR 1.3 H APTT 30.2 Anion Gap 10 L Estim Creat Clear Calc 122.4 Estimated GFR > 60 Random Glucose 113 Calcium 8.4 Magnesium 2.2 Total Bilirubin 1.5 H AST 33 ALT 10 Alkaline Phosphatase 217 H Lactate Dehydrogenase Total Protein 6.8 Albumin 2.7 L Urine Color Dark Yellow Urine Appearance Cloudy Urine pH 5.5 Ur Specific [place] 1.020 Urine Protein Negative Urine Glucose (UA) Negative Urine Ketones Negative Urine Blood Negative Urine Nitrite Negative Ur Leukocyte Esterase Negative Urine RBC 0-2 Urine WBC 0-5 Ur Squamous Epith Cells 0-2 Urine Bacteria None Seen Hyaline Casts 3-5 Stool Occult Blood POSITIVE Urine Opiates Screen Not Detected Ur Buprenorphine Scrn Not Detected Ur Oxycodone Screen Positive H Urine Methadone Screen Not Detected Urine Fentanyl Screen Not Detected Ur Barbiturates Screen Not Detected Ur Phencyclidine Scrn Not Detected Ur Amphetamines Screen Not Detected U Benzodiazepines Scrn Not Detected Urine Cocaine Screen POSITIVE H U Marijuana (THC) Screen POSITIVE H Ethyl Alcohol < 10 Blood Type A Positive Antibody Screen NEGATIVE Crossmatch See Detail 04/19/24 06:03 MCV 72.1 L MCH 21.4 L MCHC 29.7 L RDW 20.2 H Plt Count 191 MPV 9.1 L Immature Gran % (Auto) Neut % (Auto) Lymph % (Auto) [place] % (Auto) Eos % (Auto) Baso % (Auto) Lymph # (Auto) [place] # (Auto) Eos # (Auto) Baso # (Auto) Abs Immat Gran (auto) Absolute Neuts (auto) Absolute Nucleated RBC 0.000 Nucleated RBC % (auto) 0.0 Smear Tech's Comments PT INR APTT Anion Gap 10 L Estim Creat Clear Calc 147.1 Estimated GFR > 60 Random Glucose 103 Calcium 8.2 L Magnesium Total Bilirubin AST ALT Alkaline Phosphatase Lactate Dehydrogenase 165 Total Protein Albumin Urine Color Urine Appearance Urine pH Ur Specific [place] Urine Protein Urine Glucose (UA) Urine Ketones Urine Blood Urine Nitrite Ur Leukocyte Esterase Urine RBC Urine WBC Ur Squamous Epith Cells Urine Bacteria Hyaline Casts Stool Occult Blood Urine Opiates Screen Ur Buprenorphine Scrn Ur Oxycodone Screen Urine Methadone Screen Urine Fentanyl Screen Ur Barbiturates Screen Ur Phencyclidine Scrn Ur Amphetamines Screen U Benzodiazepines Scrn Urine Cocaine Screen U Marijuana (THC) Screen Ethyl Alcohol Blood Type Antibody Screen Crossmatch Assessment and Plan (1) Alcoholic cirrhosis of liver with ascites: Status: Acute Plan 57M PMH etoh cirrhosis, history of pulmonary embolism in 2023 on Eliquis, portal hypertensive gastropathy and esophageal varices, right knee septic arthritis, adenoma of colon status post terminal ileum resection and right hemicolectomy, mood disorder, pancreatic head mass followed by Dr. De Leon presented with anemia with a hemoglobin of 5 Chronic blood loss anemia Transfuse 2 units of PRBC and hemoglobin improved from 5 to 6 Transfusing another 2 units, continue to monitor, ppi and octreotide, GI following plan for EGD on 04/21/2024 Normal LDH and minimally elevated total bili make hemolysis less likely History of pulmonary embolism Apixaban on hold for severe anemia, follow up Hematology Alcoholic cirrhosis Continue rifaximin, Lasix May need therapeutic paracentesis in near future Mood disorder Continue bupropion, Ativan DVT prophylaxis-mechanical due to GI bleed Full code reason for continued hospitalization: Severe anemia Quality Stroke Does the patient have a stroke diagnosis?: No VTE Prior VTE?: No VTE Risk Level:: Medical - moderate - high VTE Device Contraindication: N/A - Device Ordered VTE Drug Contraindication: Treatment Not Indicated
[2024-04-19] MEDS: Octreotide Acetate 100 MCG/ML AMPUL 50 MCG IVPUSH ×2 (09:26→17:07)
[2024-04-19] MEDS: 0.9 % Sodium Chloride Flush 3 ML SYRINGE IVFLUSH ×2 (09:26→17:11)
[2024-04-19] MEDS: Furosemide 40 MG TABLET 80 MG PO (09:27)
[2024-04-19] MEDS: buPROPion HCl XL 300 MG TAB.ER.24H PO (09:27)
[2024-04-19] MEDS: Folic Acid 1 MG TABLET PO (09:27)
[2024-04-19] MEDS: carvediloL 6.25 MG TABLET PO (09:27)
[2024-04-19] MEDS: rifAXIMin 550 MG TABLET PO (09:27)
[2024-04-19] MEDS: Thiamine HCL 100 MG TABLET PO (09:27)
--- NOTE | 2024-04-19 10:28 | MHC.CM.PN ---
IMM DELIVERED. COMES FROM HOME W/ ROOMMATE. AMBULATES W/ CANE, USES [facility] PR[facility] FOR LONGER DISTANCES. NO SERVICES. PCP VALORIE GARCÍA MD HCP ON FILE AND VERIFIED DP: GOAL IS HOME NO SERVICES. REPORTS HIS TRUCK [facility] LOT AND WOULD PREFER TO DRIVE HOME IF APPROPRIATE. MAY CALL A FRIEND FOR A RIDE. CM WILL CONTINUE TO FOLLOW.
[2024-04-19 11:01] VITALS: BP 120/78; PULSE 90; RESP 12; TEMP 36.8
[2024-04-19 15:36] VITALS: BP 111/75; PULSE 94; RESP 17; TEMP 37.1; O2SAT 99
--- NOTE | 2024-04-19 18:36 | PM.EVENT ---
Event Note Date of Service: 04/19/24 Event Note: Patient decided to leave hospital against medical advice, he wants to follow up with Dr. Graham as outpatient He denies hematemesis, melena and does not wish to wait till Sunday for endoscopy, he admits that he has an outpatient appointment on Sunday with Dr. Graham and understand that he is not going to take blood thinners Patient seen by Dr. Vizcarra this evening, he agreed with current plan of treatment including IV octreotide, IV Protonix upper endoscopy on Sunday Informed him about risk of bleeding, including , patient is adamant to leave and signed paperwork. Time Spent With Patient Time: Total time managing care of this patient today ____ minutes.
--- NOTE | 2024-04-19 19:24 | P.PNGI_ITS ---
Subjective Subjective Date of Service: 04/19/24 Interval History: GI Coverage. History from patient and RN. s/p 3 u PRBC's Denies any signs of bleeding. Eating is fair. Denies significant abdominal pain. He wants to go home and come back as an outpatient for his procedure. Critical Care Time (minutes): 0 Physical Exam 2 Vital Signs: Vital Signs: Last Vital Signs Temp 98.8 F 04/19/24 15:36 Pulse 94 04/19/24 15:36 Resp 17 04/19/24 15:36 BP 111/75 04/19/24 15:36 Pulse Ox 99 04/19/24 15:36 O2 Del Method Room Air 04/19/24 15:36 BMI result Body Mass Index 32.7 Const: General: cooperative, comfortable, alert and awake GI: Other: Abd-Soft but distended with ascites, NT, +BS Neuro: Other: Alert, answers questions appropriately Objective Data Labs 04/19/24 06:03 04/19/24 06:03 Labs: Laboratory Results - last 24 hr 04/18/24 04/19/24 12:02 06:03 WBC 3.8 L RBC 2.90 L Hgb 6.2 L* D Hct 20.9 L* D MCV 72.1 L MCH 21.4 L MCHC 29.7 L RDW 20.2 H Plt Count 191 MPV 9.1 L Absolute Nucleated RBC 0.000 Nucleated RBC % (auto) 0.0 Sodium 134 L Potassium 3.9 Chloride 106 Carbon Dioxide 22 Anion Gap 10 L BUN 8 L Creatinine 0.82 Estim Creat Clear Calc 147.1 Estimated GFR > 60 Random Glucose 103 Calcium 8.2 L Lactate Dehydrogenase 165 Blood Type A Positive Antibody Screen NEGATIVE Crossmatch See Detail Procedures Date of Service Date of Service: 04/19/24 Progress Note: A&P Assessment and plan (1) Alcoholic cirrhosis of liver with ascites: Status: Acute (2) Anemia: Status: Acute Assessment and Plan: Imp: Advanced cirrhosis with ascites and significant anemia. Presently stable without any active bleeding, signs of SBP, nor encephalopthy. Rec: I encouraged the patient to stay in the hospital so he can have his procedure on Sunday. Continue PPI and F/U labs. Continue to hold Eliquis for now. Please call if any problems over the weekend. Thanks. Time Spent With Patient Time: Total time managing care of this patient today ____ minutes. Quality Stroke Does the patient have a stroke diagnosis?: No VTE Prior VTE?: No VTE Risk Level:: Medical - moderate - high VTE Device Contraindication: N/A - Device Ordered VTE Drug Contraindication: Treatment Not Indicated
--- NOTE | 2024-04-20 07:07 | PM.DS ---
DS: Providers Provider Date of Service: 04/19/24 Date of admission: 04/18/24 16:54 Date of discharge: 04/19/24 Primary care physician: Unknown Physician Consults: 04/18/24 17:05 Consult to Gastroenterology Routine Consulting Provider: Cash Vizcarra Reason for consultation: H&H 5.07/11.3, hx variceal bleeding, FOBT+, ?GIB Consult to Hematology / Oncology Routine [place]ing Provider[place] [facility] [place] Reason for consultation: From Dr. De Leon's office for anemia 5.07/11.3 DS: Diagnosis Discharge Diagnosis (1) Alcoholic cirrhosis of liver with ascites: Status: Acute (2) Anemia: Status: Acute DS: Summary Hospital Course Hospital Course: from initial hpi: 58-year-old male with a complicated PMH significant for?alcoholic cirrhosis with recurrent ascites requiring bi-weekly paracentesis, history of PE in early 2023 on Eliquis, portal hypertension gastropathy, esophageal varices bleedings/p banding x4 in 2022, hx of recurrent right knee septic arthritis, adenoma colon s/p terminal ileum resection and right hemicolectomy, mood disorder, and pancreatic head mass followed by Dr. De Leon who presents to the ED from referral by Dr. De Leon as routine labs found microcytic anemia with H&H 5.0/70.2 and MCV 69.6. Patient himself denies any acute medical complaints at this time saying he feels ?the exact same as I always do?. However, has significant comorbidities in many chronic conditions, including chronic lightheadedness and dizziness with position changes, fatigue, FERMIN especially going upstairs, increasing abdominal swelling and left-sided abdominal pain, and chills. Denies fever. No productive cough. Of note, patient presented to the ED here on 02/20 for hematemesis and noted to have recurrent esophageal variceal bleeding that required massive transfusion protocol where he received 4 PRBCs, 1 unit platelets, and 1 unit FFP. Was transferred [place] [facility] [place] [facility] [place] he underwent elective intubation and had EGD demonstrating esophageal varices with bleeding s/p banding x3. Recommendation was for in-house TIPs, but pt declined and left AMA on 02/23 before procedure could be done. Patient currently denies hematemesis, coffee-ground emesis, hemoptysis, hematuria, hematochezia, or melena. No recent fall or trauma with bleeding. Reports next scheduled paracentesis is on 04/24. The patient states that he has significantly cut back on his drinking. Reports last drink ?a few beers a few days ago. Denies symptoms. In the ED pt was tachycardic up to 109, tachypneic up to 22 and initially hypertensive at 143/73. Labs were significant for H&H 5.1/17.3, WBCs 4.0, and MCV 69.2, sodium 133, bilirubin 1.5, and alk-phos 217. Stool positive for occult blood. UA negative for UTI. Tox screen positive for oxycodone, cocaine, and marijuana. CT of abdomen and pelvis showing cirrhosis with large volume of ascites, large fluid-filled umbilical hernia, and left-sided pleural effusion moderate in volume. Pt was transfused 2 units of PRBCs. Pt will be admitted to the hospital for treatment and further evaluation of acute anemia requiring transfusion of multiple units likely secondary from GI bleed. hospital course: Patient was admitted for chronic blood loss anemia. He was transfused 4 units rBC. Hemoglobin is 6.2 at time of discharge. Was treated with IV PPI and octreotide plan was for EGD on 04/21/2024 however patient decided to leave against medical advice. He was aware of risks of doing so. For history of pulmonary embolism is apixaban was on hold for severe anemia. For alcoholic cirrhosis he was continued on rifaximin Lasix. For mood disorder was continued on bupropion and Ativan. Time Attestation Discharge Coordination Time (in mins): 10 Quality: Safe Use of Opioids Does Pt have an Active Cancer Diagnosis on the Problem List?: No Quality: Stroke Does the patient have a stroke diagnosis?: No Physical Exam Vital Signs: Vital Signs: Last Vital Signs Temp 98.8 F 04/19/24 15:36 Pulse 94 04/19/24 15:36 Resp 17 04/19/24 15:36 BP 111/75 04/19/24 15:36 Pulse Ox 99 04/19/24 15:36 O2 Del Method Room Air 04/19/24 15:36 BMI result Body Mass Index 32.7 Const: General: cooperative, comfortable, alert and awake GI: Other: Abd-Soft but distended with ascites, NT, +BS Neuro: Other: Alert, answers questions appropriately DS: Data Data Completed and Pending Completed studies during hospitalization [Text1]: Procedures Control Bleeding in Gastrointestinal Tract, Via Natural or Artificial Opening Endoscopic (11/01/21) Detoxification Services for Substance Abuse Treatment (12/06/21) Drainage of Left Knee Joint, Percutaneous Approach (11/27/23) Drainage of Left Pleural Cavity, Percutaneous Approach (04/09/23) Drainage of Peritoneal Cavity, Percutaneous Approach (11/27/22) Drainage of Right Pleural Cavity, Percutaneous Approach (12/06/21) Introduction of Mineral-based Topical Hemostatic Agent into Upper GI, Via Natural or Artificial Opening Endoscopic, [employer] (11/27/22) Irrigation of Joints using Irrigating Substance, Percutaneous Endoscopic Approach (12/05/23) Occlusion of Esophageal Vein with Extraluminal Device, Via Natural or Artificial Opening Endoscopic (11/27/22) Labs on day of discharge: Laboratory Results - last 24 hr 04/18/24 04/19/24 12:02 06:03 Lactate Dehydrogenase 165 Blood Type A Positive Antibody Screen NEGATIVE Crossmatch See Detail Discharge Plan Discharge Patient Disposition: Left Against Medical Advice Discharge Diagnosis: GI Bleed Referrals: Physician,Unknown J [Primary Care Provider] - 1 Week Discharge Medications: No Action furosemide 40 mg tablet 80 mg PO DAILY 90 Days Qty: 180 0RF omeprazole 40 mg capsule,delayed release(DR/EC) 40 mg PO DAILY 90 Days Qty: 90 1RF carvedilol 6.25 mg tablet 6.25 mg PO BID 30 Days Qty: 60 3RF Xifaxan 550 mg tablet 550 mg PO BID 30 Days Qty: 60 3RF (DME) walker Misc See Rx Instructions .Route Qty: 1 0RF Rx Instructions: As directed Eliquis 5 mg tablet 5 mg PO BID ondansetron 4 mg tablet,disintegrating 4 mg PO Q8H PRN (Reason: nausea and vomiting) Qty: 14 0RF (DME) FreeStyle Lite Strips Strip See Rx Instructions .ROUTE .MEDSUPPLY Qty: 100 2RF Rx Instructions: QID (DME) lancets Misc See Rx Instructions .ROUTE .MEDSUPPLY Qty: 200 2RF Rx Instructions: 4 times daily (DME) blood-glucose meter [FreeStyle Lite Meter] Kit See Rx Instructions .ROUTE .MEDSUPPLY Qty: 1 0RF Rx Instructions: As directed (DME) pen needle, diabetic [Pen Needle] 31 gauge x 5/16 needle See Rx Instructions .ROUTE .MEDSUPPLY Qty: 1200 0RF Rx Instructions: As directed albuterol sulfate 90 mcg/actuation Hfa Aerosol Inhaler 2 puff INHALATION Q6H PRN (Reason: Shortness Of Breath Or Wheezing) hydroxyzine pamoate 25 mg capsule 50 mg PO DAILY PRN (Reason: itching) Rx Instructions: ITCHING/ANXIETY folic acid 1 mg tablet 1 mg PO DAILY bupropion HCl 300 mg tablet extended release 24 hr 300 mg PO DAILY thiamine HCl (vitamin B1) 100 mg tablet 100 mg PO DAILY lorazepam 0.5 mg tablet 0.5 mg PO DAILY PRN (Reason: anxiety attack) oxycodone 5 mg tablet 5 mg PO BID PRN (Reason: Pain) Discharge Orders: Discharge Order (Routine); Ordered 04/20/24 Ordered By: Robert Casas Print Language: Hebrew Care Plan Goals: Left AMA Health Concerns: Left AMA Plan of Treatment: Left AMA Assessment: Left AMA Discharge Date/Time: 04/19/24 18:45
--- NOTE | 2024-04-22 13:44 | PC.NURSE ---
Late entry for04/19/24. Patient left AMA after discussion with RN regarding plan for care, stated he could wait at home rather than stay here for pending procedure. Dr Amaya spoke the patient, discussed risks of leaving AMA and explained potential risks to patient. Pt who is alert and oriented and stable on his feet, stated he understood, but still would like to leave. IV was removed, AMA form signed by pt and witnessed by 2 RNs.
== END 2024-04-19 18:45 | disposition left against medical advice (07) | DRG 432 ==
LOC: HO.ED 13:55 → HO.EDOVER 17:20 → HO.S3 17:44
PROVIDERS: Admitting Provider Student in an Organized Health Care Education/Training Program; Emergency Provider Emergency Medicine Emergency Medical Services; PCP Internal Medicine; Visit Provider Internal Medicine
DX: K70.31 Alcoholic cirrhosis of liver with ascites (principal); I85.11 Secondary esophageal varices with bleeding; K76.6 Portal hypertension; D50.0 Iron deficiency anemia secondary to blood loss (chronic); F39 Unspecified mood [affective] disorder; K86.9 Disease of pancreas, unspecified; K31.89 Other diseases of stomach and duodenum; Z86.711 Personal history of pulmonary embolism; Z79.01 Long term (current) use of anticoagulants; Z79.899 Other long term (current) drug therapy
CPT/HCPCS: 36415; 74177; 80048; 80053; 80307; 81001; 82272; 83615; 83735; 85025; 85027; 85610; 85730; 86850; 86900; 86901; 86923; 99212; 99285; J2354; J2470; P9016; Q9967

== ENCOUNTER → 2024-04-18 14:12 | Outpatient (BNV) | payer OTHER, SELFPAY | PROVIDERS: Emergency Provider Emergency Medicine Emergency Medical Services; Visit Provider Radiology Diagnostic Radiology | DX: D64.9 Anemia, unspecified (principal) | CPT/HCPCS: 74177 ==

== ENCOUNTER → 2024-04-18 16:54 | Outpatient (BNV) | payer OTHER, SELFPAY | PROVIDERS: Admitting Provider Student in an Organized Health Care Education/Training Program; Emergency Provider Emergency Medicine Emergency Medical Services; Visit Provider Student in an Organized Health Care Education/Training Program | DX: D62 Acute posthemorrhagic anemia (principal) | CPT/HCPCS: 99223; 99238; 99499 ==

== ENCOUNTER → 2024-04-18 16:54 | Outpatient (BNV) | payer OTHER, SELFPAY | PROVIDERS: Admitting Provider Student in an Organized Health Care Education/Training Program; Emergency Provider Emergency Medicine Emergency Medical Services; PCP Internal Medicine; Visit Provider Internal Medicine Gastroenterology | DX: D62 Acute posthemorrhagic anemia (principal); K70.31 Alcoholic cirrhosis of liver with ascites | CPT/HCPCS: 99221 ==

== ENCOUNTER 2024-04-21 13:42 | Outpatient (REF) | payer OTHER, SELFPAY ==
[2024-04-21 13:56] LABS: MANUAL DIFF FLAG NO
[2024-04-21 14:31] LABS: Basophils Absolute Auto 0.1 X10*3/uL (0.0-0.2); Basophils Percent Auto 2.3 % (0-2); Eosinophils Absolute Auto 0.1 X10*3/uL (0.0-0.4); Eosinophils Percent Auto 2.3 % (0-4); Hematocrit 24.3 % (42.0-52.0); Hemoglobin 7.1 g/dl (14.0-18.0); Imm Gran Abs Auto 0.01 X10*3/uL (0.00-0.03); Imm Gran Pct Auto 0.2 % (0.0-0.4); Lymphocytes Absolute Auto 0.7 X10*3/uL (1.2-4.9); Lymphocytes Percent Auto 15.6 % (20-40); Mean Corpuscular HGB Conc 29.2 g/dl (31.0-36.0); Mean Corpuscular Hemoglobin 21.7 pg (27.0-33.0); Mean Corpuscular Volume 74.3 fL (80.0-98.0); Mean Platelet Volume 9.2 fL (9.4-12.4); Monocytes Absolute Auto 0.9 X10*3/uL (0.1-1.2); Monocytes Percent Auto 19.7 % (2-11); Neutrophils Absolute Auto 2.6 x10*3/uL (2.0-8.3); Neutrophils Percent Auto 59.9 % (45-73); Platelet Count 241 X10*3/uL (160-400); Red Blood Count 3.27 X10*6/uL (4.60-5.80); Red Cell Distribution Width 22.2 % (11.0-16.0); White Blood Count 4.4 X10*3/uL (4.8-10.8)
[2024-04-21 14:54] LABS: D Dimer High Sensitivity 599 NG/ML
[2024-04-21 15:06] LABS: Alanine Aminotransferase 10 U/L (0-40); Albumin Level 2.7 g/dL (3.5-5.0); Alkaline Phosphatase 198 U/L (39-117); Anion Gap 10 (12-20); Aspartate Amino Transferase 29 U/L (5-37); Bilirubin Total 2.1 mg/dL (0.0-1.0); Blood Urea Nitrogen 8 mg/dL (9-16); Calcium 8.3 mg/dL (8.4-10.2); Carbon Dioxide 22 mmol/L (22-29); Chloride 104 mmol/L (96-108); Estimated Glomerular Filt Rate > 60; Glucose Random 127 mg/dL (60-115); Potassium 3.8 mmol/L (3.3-5.1); Sodium 132 mmol/L (135-145); Total Protein 6.8 g/dL (6.5-8.0)
[2024-04-21 15:21] LABS: Erythrocyte Sedimentation Rate 39 MM/HR (0-15)
== END 2024-04-21 13:43 | disposition home or self-care (01) ==
LOC: HO.LAB 13:42
PROVIDERS: Hospitalist; PCP Internal Medicine; Visit Provider Internal Medicine Gastroenterology
DX: I26.99 Other pulmonary embolism without acute cor pulmonale (principal); K70.31 Alcoholic cirrhosis of liver with ascites
CPT/HCPCS: 36415; 80053; 85025; 85379; 85652

== ENCOUNTER → 2024-04-22 07:00 | Day surgery (SDC) | payer OTHER, SELFPAY ==
--- OUTSIDE RECORDS SUMMARY | 2024-04-22 07:03 | XMS_ITS | Continuity of Care Document ---
Author Organization [facility] Address [address] [place] [id number]- Care Team Providers Care Claims Adjudicator Name Role Phone Martin Avilez MD Primary Care Physician Encounter [facility] [place] Date(s): 02/26/24 - 03/27/24 [facility] [address] [place] [id number]- [place] Allergies, Adverse Reactions, Alerts No Known Allergies Immunizations Given and Recorded Vaccine Date Status Refusal Reason SARS-CoV-2 (COVID-19) Ad26 vaccine 12/07/20 Given Medications acamprosate 333 mg oral delayed release tablet 1 tablet = 333 mg, By Mouth, 3 times a day, # 90 tablet, 0 Refills, Maintenance, 02/22/24 6:21:00 EDT, EC Tablet, Partial fill upon patient request if the prescription is for a schedule II opioid drug. Start Date: 02/22/24 Status: Ordered albuterol CFC free 90 mcg/inh inhalation aerosol 1, puffs, Inhalation, 4 times a day, PRN, # 6.7 Gm, Refills 0, Maintenance, 02/22/24 6:17:00 EDT, Aerosol Start Date: 02/22/24 Status: Ordered apixaban 2.5 mg oral tablet 1 tablet = 2.5 mg, By Mouth, 2 times a day, # 60 tablet, 0 Refills, Maintenance, 02/22/24 6:21:00 EDT, Tablet, Partial fill upon patient request if the prescription is for a schedule II opioid drug. Start Date: 02/22/24 Status: Ordered buPROPion 300 mg/24 hours (XL) oral tablet, extended release 1 tablet = 300 mg, By Mouth, Daily, # 30 tablet, 0 Refills, Maintenance, 02/22/24 6:17:00 EDT, ER Tablet, Partial fill upon patient request if the prescription is for a schedule II opioid drug. Start Date: 02/22/24 Status: Ordered carvedilol 6.25 mg oral tablet 6.25 mg, 1, tablet, By Mouth, 2 times a day, # 60 tablet, Refills 0, Maintenance, 02/22/24 6:21:00 EDT, Partial fill upon patient request if the prescription is for a schedule II opioid drug. Start Date: 02/22/24 Status: Ordered folic acid 1 mg oral tablet 1 mg, 1, tablet, By Mouth, Daily, # 30 tablet, Refills 0, Maintenance, 02/22/24 6:17:00 EDT, Partial fill upon patient request if the prescription is for a schedule II opioid drug. Start Date: 02/22/24 Status: Ordered furosemide 40 mg oral tablet 80 mg, 2, tablet, By Mouth, Daily, # 30 tablet, Refills 0, Maintenance, 02/22/24 6:19:00 EDT, Partial fill upon patient request if the prescription is for a schedule II opioid drug. Start Date: 02/22/24 Status: Ordered hydrOXYzine pamoate 25 mg oral capsule 1 capsule = 25 mg, By Mouth, 4 times a day, PRN for itching, # 40 capsule, 0 Refills, Maintenance, 02/22/24 6:18:00 EDT, Capsule, Partial fill upon patient request if the prescription is for a schedule II opioid drug. Start Date: 02/22/24 Status: Ordered lactulose 10 gm/15 ml oral syrup 30 mL = 20 Gm, By Mouth, 3 times a day, # 480 mL, 0 Refills, Maintenance, 02/22/24 6:21:00 EDT, Syrup, Partial fill upon patient request if the prescription is for a schedule II opioid drug. Start Date: 02/22/24 Status: Ordered LORazepam 0.5 mg oral tablet 1 tablet = 0.5 mg, By Mouth, Daily at bedtime, 0 Refills, Maintenance, 02/22/24 6:18:00 EDT, Tablet, Partial fill upon patient request if the prescription is for a schedule II opioid drug. Start Date: 02/22/24 Status: Ordered omeprazole 40 mg oral enteric coated capsule 1 capsule = 40 mg, By Mouth, Daily, # 30 capsule, 0 Refills, Maintenance, 02/22/24 6:22:00 EDT, EC Capsule, Partial fill upon patient request if the prescription is for a schedule II opioid drug. Start Date: 02/22/24 Status: Ordered ondansetron 4 mg oral tablet 1 tablet = 4 mg, By Mouth, Every 8 hours, # 12 tablet, 0 Refills, Maintenance, 02/22/24 6:18:00 EDT, Tablet, Partial fill upon patient request if the prescription is for a schedule II opioid drug. Start Date: 02/22/24 Status: Ordered PARoxetine 20 mg oral tablet 20 mg, 1, tablet, By Mouth, Daily, # 30 tablet, Refills 0, Maintenance, 02/22/24 6:18:00 EDT, Partial fill upon patient request if the prescription is for a schedule II opioid drug. Start Date: 02/22/24 Status: Ordered rifAXIMin 550 mg oral tablet 1 tablet = 550 mg, By Mouth, 2 times a day, # 60 tablet, 0 Refills, Maintenance, 02/22/24 6:22:00 EDT, Tablet, Partial fill upon patient request if the prescription is for a schedule II opioid drug. Start Date: 02/22/24 Status: Ordered spironolactone 100 mg oral tablet 200 mg, 2, tablet, By Mouth, Daily, # 30 tablet, Refills 0, Maintenance, 02/22/24 6:19:00 EDT, Partial fill upon patient request if the prescription is for a schedule II opioid drug. Start Date: 02/22/24 Status: Ordered thiamine 100 mg oral tablet 100 mg, 1, tablet, By Mouth, Daily, # 7 tablet, Refills 0, Maintenance, 02/22/24 6:17:00 EDT, Partial fill upon patient request if the prescription is for a schedule II opioid drug. Start Date: 02/22/24 Stop Date: 02/29/24 Status: Ordered Problem List Condition Confirmation Course Effective Dates Status Health St [facility]us Informant Epigastric abdominal pain Confirmed Active Hypertension Confirmed Active Colon polyp Confirmed Active Dry heaves Confirmed Active Social History Social History Type Response Smoking Status Former smoker, quit more than 30 days ago entered on: 03/19/23 Sex Patient Care team information Care Team Personnel Name: German Plascencia RN Position: [facility] RN Member Role: Primary Care Nurse Name: Ophelia Mcgowan Position: [facility] RN Member Role: Primary Care Nurse Name: Mohini Dowd RN Position: [facility] RN Supv Member Role: Primary Care Nurse Name: Byron Rosales RN Position: [facility] RN Member Role: Primary Care Nurse Name: Shanique Torrez RN Position: [facility] RN Supv Member Role: Primary Care Nurse Name: Martin Avilez MD Position: [facility] Physician - Primary Care Member Role: PCP Address: Address: [address] [place] [address], [address] [place] [address]- Care Team Related Persons Name: ROSALBA NAIR Address: [address] [place] [address] Name: SINDHU WASHINGTON Address: home [address], [place] [address]
--- OUTSIDE RECORDS SUMMARY | 2024-04-22 07:04 | XMS_ITS | Continuity of Care Document ---
Author Organization [facility] ter Address [address] [place] [id number] Care Team Providers Care Principle Software Engineer Name Role Phone Raghav BURDEN, Martin Quintanilla Primary Care Physician Encounter [facility] Date(s): 02/21/24 - 02/24/[address] [address]- Discharge Disposition: A-D/C AMA Attending Physician: Mohini Lebron MD Admitting Physician: Roverto Lim MD Referring Physician: Not on Staff, Referring MD Allergies, Adverse Reactions, Alerts No Known [...] polyp Confirmed Active Dry heaves Confirmed Active Results Radiology Reports * Exam Date Time Procedure Performing Provider Status 02/23/24 7:[address] Abd/Pelvis W/ IV Contrast Only Saray Guzman; Auth (Verified) Notes: (CT Abd/Pelvis W/ IV Contrast Only) Reason For Exam: For pending TIPS;Other: RESULT: CT Abd/Pelvis W/ IV Contrast Only PROCEDURE: CT Abd/Pelvis W/ IV Contrast Only CLINICAL INDICATION: 58-year-old male with past medical history of tubular adenoma of the left colon, right tubular adenoma status post terminal ileum resection and right hemicolectomy as well as alcohol related cirrhosis with recurrent ascites, hepatic hydrothorax, portal hypertensive gastropathy and esophageal varices status post banding x 4 in 2022, hypertension, hyperlipidemia and recently diagnosed PE in early 2023 on apixaban. Patient was admitted to the ICU at [facility] as a transfer from outside hospital due to GI bleeding requiring massive transfusion. Due to patient's known cirrhosis with varices, he was offered TIPS in February 2023, however patient declined at that time. Per chart review, on 02/20, he woke up coughing blood. He also felt overall lightheaded and fatigued and presented to [place] emergency department where he was found to be anemic with hemoglobin of 6.7. He had large-volume hematemesis and massive transfusion protocol was initiated. His apixaban was reversed with Kcentra and he received 4 units PRBC, 1 unit platelet and 1 unit FFP. Patient is transferred to [facility] for escalation of care and interventional radiology was consulted forTIPS. On 02/22/2024, patient underwent endoscopy which demonstrated bleeding esophageal varices and 4 bands were applied for hemostasis. There was also blood within the stomach. After endoscopy, patient was extubated successfully. His MELD?Na score is [address] abdomen pelvis with contrast to evaluate anatomy in anticipation of TIPS placement. Anticipate TIPS procedure in the next few days. TECHNIQUE: During the uneventful IV administration of 100 cc of Omnipaque 300 contrast, helical 3 mm axial images are obtained of the abdomen and pelvis. Coronal and sagittal reformations performed. Enteric contrast also given. Weight-based protocol using automatic tube modulation utilized to optimize exposure parameters. CTDIvol Body: 15.10 mGy, DLP Body: 942 mGy*cm. COMPARISONS: Enhanced CT abdomen and pelvis July 19, 2015, 06/19/2017 and 2020. FINDINGS: Water And [employer] Helper View Findings, Lines and Tubes: None. Visualized Chest: New small to moderate loculated LEFT pleural effusion with a pleural rind and moderate rounded atelectasis medially in the LEFT lower lobe. No evidence of RIGHT pleural effusion. Mild aortic valve mild coronary artery calcifications noted. No cardiomegaly. No pericardial effusion. Diaphragm: Unremarkable. Liver: The liver is shrunken and lobulated in contour consistent with cirrhosis. No evidence of focal lesion on this single portal phase exam. Normal attenuation. Portal venous system: No thrombosis involving the portal, splenic or superior mesenteric veins. Bilateral LEFT portal veins are small within the liver. The hepatic veins also appear small. Gallbladder: At least two gallstones are seen within the lumen without wall thickening, gallstones measuring up to 0.8 cm. Bile ducts: No intra or extra hepatic bile duct dilation. Spleen: Splenomegaly, moderate noted the spleen measuring 16.4 cm in length, unchanged. Pancreas: Mild to moderate atrophy. No focal lesions. No pancreatic ductal dilatation. Adrenal Glands: Normal. Kidneys, ureters and bladder: Kidneys are normal in size and location. No evidence of calculi or hydronephrosis. No focal lesions. No perinephric collections. No evidence of ureteral calculi or dilatation. Urinary bladder is well-distended by urine. No evidence of wall thickening, calculi or gas. Bowel: No oral contrast. Small type I hiatal hernia. Small serpiginous vessels within the hiatal hernia consistent with varices. Portosystemic collateral vessels also noted in the gastrohepatic ligament and splenic hilum. Small splenorenal shunt present. Evidence of RIGHT hemicolectomy and ileocolic anastomosis anterior mid abdomen is again noted.. Omentum, mesentery and peritoneal cavity: No omental or mesenteric lesions. Moderate to large volume of ascites in the abdomen and pelvis with water attenuation. Ascites is also noted within a periumbilical hernia which contains the anterior wall of a small bowel loop without associated obstruction, new finding. No evidence of pneumoperitoneum. Aorta and iliac vessels: Normal caliber of the abdominal aorta and pelvic arteries. Moderate degreeof arterial calcifications. Please see under bowel resection for description of portosystemic collateral vessels. Lymph nodes:Several enlarged lymph nodes are seen in the torres hepatis. Interestingly, a lymph nodethat currently measures 1.1 cm in short axis diameter previously measured 1.7 cm in short axis diameter. Abdominal and pelvic wall: Small to moderate-sized umbilical hernia containing ascitic fluid in theanterior wall of the small bowel loop without associated obstruction.. Reproductive pelvic organs: Prostate gland is not enlarged. Seminal vesicles are symmetric and unremarkable bilaterally. Bones: No fractures or dislocations. Mild degenerative end plate changes in the lumbar spine. Mild degenerative changes at the hip joints bilaterally. None partially visualized lesion in the proximalshaft of the RIGHT femur starting at the intertrochanteric region with peripheral sclerosis and central lucency is unchanged as visualized by CT since 2015 and was evaluated by MRI scan September 14, 2020. Please refer to that report. This believed to represent a benign lesion, possibly an area of bonemarrow infarction. IMPRESSION: 1. Stigmata of cirrhosis and portal hypertension with moderate to large ascites noted, new finding since 2020. Torres hepatis adenopathy again noted. Evidence of portosystemic collateral vessels including in a small type I hiatal hernia and in the gastrohepatic ligament and splenic hilum as well as a small splenorenal shunt. 2. Portal veins are small within the liver. Hepatic veins are not well seen due to contrast timing. 3. Chronic lesion in the proximal RIGHT femur considered benign. 4. Small to moderate-sized umbilical hernia containing ascitic fluid in the anterior wall of the small bowel loop without associated obstruction.. 5. No evidence of active hemorrhage. Thank you for allowing me to participate in the care of this patient. WSN: [id number] Ordering Physician: Lenka Abernathy Dictated By: Marcelo Hall MD Dictated Date/Time: 02/23/24 11:14 p Reviewed By: Marcelo Hall MD Signed By: Marcelo Hall MD Signed Date/Time: 02/23/24 11:14 pm Transcribed By: МАРИНА Transcribed Date/Time: 02/23/24 10:56 pm * Exam Date Time Procedure Performing Provider Status 02/22/24 10:16 AM Chest Portable Tomas Ya; Auth (Verified) Notes: (Chest Portable) Reason For Exam: Tube Placement RESULT: Chest Portable Chest Portable Reason: Tube Placement; Clinical Question(s): Tube Placement COMPARISON: 08/21/2017. FINDINGS: LINES AND TUBES: An endotracheal tube is in place. It terminates 6.2 cm above the neno. LUNGS AND PLEURA: There is left basilar atelectasis present. There is a tiny stable granuloma in the left apex. A left pleural effusion is present. No pneumothorax. HEART, MEDIASTINUM AND TAVO: Heart is normal in size. Normal mediastinal and hilar contour. BONES AND SOFT TISSUES: No acute abnormality. IMPRESSION: Left basilar atelectasis. A left pleural effusion. A endotracheal tube which terminates 6.2 cm above the neno. WSN: [id number] Ordering Physician: Pippa Tubbs Dictated By: Tj Bhtati MD Dictated Date/Time: 02/22/24 10:29 a Reviewed By: Tj Bhatti MD Signed By: jT Bhatti MD Signed Date/Time: 02/22/24 10:29 am Transcribed By: МАРИНА Transcribed Date/Time: 02/22/24 10:26 am Vital Signs Most recent to oldest [Reference Range]: 1 2 3 Height 199 cm (02/24/24 12:22 AM) 199 cm (02/23/24 8:08 PM) 199 cm (02/21/24 9:02 PM) Weight 109.2 kg (02/21/24 10:13 PM) 109.2 kg (02/21/24 9:02 PM) Oxygen Saturation [94-100 %] 100 % (02/24/24 12:00 PM) 100 % (02/24/24 6:00 AM) 99 % (02/24/24 12:22 AM) Pulse Rate [55-90 bpm] 101 bpm *H* (02/24/24 12:00 PM) 111 bpm *H* (02/24/24 6:00 AM) 110 bpm *H* (02/24/24 12:22 AM) Body Mass Index [18.5-24.99 kg/m2] 27.58 kg/m2 *H* (02/21/24 9:02 PM) Blood Pressure [90-138/55-84 mm Hg] 132/87mm Hg (02/24/24 12:00 PM) 126/76mm Hg (02/24/24 6:00 AM) 121/71mm Hg (02/24/24 12:22 AM) Respiratory Rate [16-30 br/min] 19 br/min (02/24/24 12:00 PM) 19 br/min (02/24/24 6:00 AM) 19 br/min (02/24/24 12:22 AM) Temperature [96.8-100.4 DegF] 97.2 DegF (02/24/24 12:00 PM) 98.2 DegF (02/24/24 6:00 AM) 98.4 DegF (02/24/24 12:22 AM) Mode of Delivery (Oxygen) Room air (02/24/24 12:00 PM) Room air (02/24/24 6:00 AM) Room air (02/24/24 12:22 AM) Blood pressure sites Arm, left (02/24/24 12:00 PM) Arm, right (02/24/24 6:00 AM) Arm, left (02/24/24 12:22 AM) Temperature Route Oral (02/24/24 12:00 PM) Oral (02/24/24 6:00 AM) Oral (02/24/24 12:22 AM) Dry Weight 109.2 kg (02/21/24 10:13 PM) 109.2 kg (02/21/24 9:02 PM) Weight Obtained Via Bed scale (02/21/24 10:13 PM) Dry Weight Obtained Via Bed scale (02/21/24 10:13 PM) Bed scale (02/21/24 9:02 PM) Social History Social History Type Response Smoking Status Former smoker, quit more than 30 days ago entered on: 03/19/23 Sex Clinical Note * Event Display: GG EGD Please click on pdf link to open report Consult note * Rachel BURDEN, Feliberto D: PERFORM Event Display: Consult Authored Date: [id number] Patient: ??DIAZ BARBOZA ? Age:??58 Years?Sex:??Male?:??1965?? Diaz Barboza is a 58-year-old male with past medical history of tubular adenoma of the left colon, right tubular adenoma status post terminal ileum resection and right hemicolectomy as well as alcohol related cirrhosis with recurrent ascites, hepatic hydrothorax, portal hypertensive gastropathy and esophageal varices status post banding x 4 in 2022, hypertension, hyperlipidemia and recently diagnosed PE in early 2023 on apixaban. ?? Patient is admitted to the ICU at [facility] as a transfer from outside hospital due to GI bleeding requiring massive transfusion.?? Due to patient's known cirrhosis with varices, he wasoffered TIPS in February 2023, however patient declined at that time. ?? Per chart review, on 02/20, he woke up coughing blood.?? He also felt overall lightheaded and fatigued and presented to [place] emergency department where he was found to be anemic with hemoglobin of 6.7.?? He had large-volume hematemesis and massive transfusion protocol was initiated.?? His apixaban was reversed with Kcentra and he received 4 units PRBC, 1 unit platelet and 1 unit FFP. ?? Patient is transferred to [facility] for escalation of care and interventional radiology was consulted forTIPS. ?? On 02/22/2024, patient underwent endoscopy which demonstrated bleeding esophageal varices and 4 bands were applied for hemostasis.?? There was also blood within the stomach.?? After endoscopy, patientwas extubated successfully. ?? Patient slightly tachycardic to 110, however is otherwise hemodynamically stable.?? Most recent labs demonstrate hemoglobin of 8.2, platelet 237, INR 1.5 and PT 15.6.?? LFTs demonstrate alk phos 213,AST 28, ALT 10 and total bilirubin 4.0.?? His MELD???Na score is 16 points. ?? He has been started on octreotide drip and he is currently receiving 1 g of ceftriaxone every 24 hours for gram-negative coverage. ?? Plan: ??? Recommend CT abdomen pelvis with contrast to evaluate anatomy in anticipation of TIPS placement. ??? Please obtain echocardiogram to evaluate right heart function. ??? Anticipate TIPS procedure in the next few days.?? If there are acute changes to patient's hemodynamic status or patient has additional episodes of hematemesis, please do not hesitate to contact interventional radiology. ?? FELIBERTO NAVA MD Interventional Radiology ?? I spent a total of 25 minutes today reviewing the chart/medical records, speaking with the referring clinical service, formulating and discussing the treatment plan, and documenting the findings and encounter. * Felix BURDEN, Bharath H: MODIFY, MODIFY, MODIFY, PERFORM, MODIFY Event Display: Consultation Note Authored Date: [id number] Patient: ??DIAZ BARBOZA ? Age:??58 Years?Sex:??Male?:??1965?? Referrring Provider Nany Mireles Reason for Consultation UGIB History of Present Illness 57-year-old male with reported past medical history of decompensated alcoholic liver cirrhosis withhistory of recurrent ascites, variceal bleeding, recently diagnosed PE in early 2023 now on apixaban, hypertension, GERD, hyperlipidemia, depression, presented to the [facility] ICU as a transfer from [facility] due to concern for variceal bleeding. ?? Patient has had alcoholic liver cirrhosis for a few years.?? He continues drinking alcohol.?? He isdecompensation with recurrent ascites requiring therapeutic paracentesis with the last one being done 2 days back.?? He reportedly has also required thoracentesis for hepatic hydrothorax in 2021.?? He follows with Dr. Hawk at [facility] gastroenterology.?? He has had esophageal variceal bleeding requiring hospital admission in November 2022 s/p banding X4 and Hemospray use on 11/28/2022.?? No gastric varices were seen then.?? Recent EGD in January 2023 showed small esophageal varices, post banding ulcer, portal hypertensive gastropathy and portal hypertensive duodenopathy.?? Patient was on carvedilol 12.5 mg twice daily with plan for 1 year follow-up EGD.?? Patient was evaluated by [facility] interventionalradiology in February 2023 for possible TIPS procedure.?? His MELD score was 14 at the time and hewas offered TIPS creation however patient later declined TIPS and said he would like to hold off. ?? Patient presented to [facility] with acute onset large-volume hematemesis which started yesterday around 6 AM.?? He reports seeing bright red blood with some large clots.?? He has had a recent diagnostic paracentesis 2 days ago.?? He admits to continued alcohol intake.?? He states he drinks afew beers every 3-4 days and his last drink was 2 days ago when he consumed 2 bottles of beer.?? He smokes and consumes edible marijuana.?? He lives with his roommate and is on disability.?? Patient apparently received 4 units of PRBC, 1 FFP, Kcentra, 1 unit of platelets.?? Patient apparently had large-volume hematemesis at [facility] ED however afterwards was able to maintain appropriate mentation and had no further bleeding and was not intubated.?? He was transferred over to [facility] ICU in case he needsemergent IR intervention which was not available at [facility].?? He did not undergo EGD at outside hospital yet. ? Review of Systems Full review of systems completed and was negative except as mentioned above in HPI Physical Exam Vitals & Measurements T:??98.1?F?? TMIN:??98.1?F?? TMAX:??98.7?F?? HR:??112??(Monitored)?? RR:??21?? BP:??128/75?? SpO2:??98%?? WT:??109.2??kg?? Constitutional: Alert, in no distress. Mental Status: Oriented to person, place and time. Gastrointestinal: Abdomen soft, no tenderness, non-distended.??No pulsatile mass. Neurologic: Cranial nerves II-XII grossly intact. No focal neurological deficits. Moves all extremities spontaneously. Skin:?? No petechiae or purpura.??No jaundice Musculoskeletal: No cyanosis or clubbing. No gross deformities. Normal range of motion. Psychiatric: Appropriate mood and affect? Assessment/Plan ?? Hematemesis Suspected variceal bleeding Decompensated alcoholic liver cirrhosis with ascites and Hx of variceal bleeding Meld Na: 16, Child-st class C ?? 57-year-old male with reported past medical history of decompensated alcoholic liver cirrhosis withhistory of recurrent ascites, variceal bleeding, recently diagnosed PE in early 2023 now on apixaban, hypertension, GERD, hyperlipidemia, depression, presented to the [facility] ICU as a transfer from [facility] due to concern for variceal bleeding.?? Patient continues to drink alcohol, gets periodic therapeutic paracentesis and presenting with large-volume hematemesis which began yesterday morning.?? He was recently diagnosed with PE and started on apixaban.?? He has had recent esophagealvariceal bleeding s/p EGD with banding X4 and Hemospray in November 2022.?? He has previously refused TIPS procedure.?? He received massive transfusion protocol with at [facility] with 4 units PRBC, 1 FFP, Kcentra and a unit of platelets.?? Initial plan was for intubation and transferred to [facility] for IR availability however patient stopped bleeding and was mentating fine and was hence not intubated.?? At [facility] patient remains mildly tachycardic, normotensive.?? He has not required any vasopressors.?? His hemoglobin was 7.2 and repeat hemoglobin was 8.2 at [facility].?? [facility] any [facility]?? Patient will need urgent EGD with possible variceal banding.?? Patient not had intubated.?? We will need patient to be intubated before EGD can be performed, ideally in the ICU with IR on backup. ?? Plan: Plan for urgent EGD today in ICU after patient is intubated.?? Will coordinate with ICU team Please keep patient NPO?? Maintain 2 large-bore IV lines. can consider central line access if he bleeds Watch for evidence of active bleeding (drop in Hgb, hypotension, hematochezia, hematemesis). Continue monitoring Hb and transfuse pRBC to keep Hgb 7 -9 gm/dL. Pantoprazole 40 mg IV bid. Octreotide ??50 mcg/hr IV infusion. Ceftriaxone 1 gm IV daily x 5 days AVOID routine correction of PT/INR and platelet counts; these do not reflect bleeding risk accurately in cirrhosis. Please do not check serum ammonia levels; this has no clinical utility in patients with cirrhosis. Restrict antithrombotic therapy to the extent acceptable from the point of thrombotic risk.??Defer decision of anticoagulating this pt for his PE to primary team. His varices do put him at a high risk of bleeding. ? Please check Hep A IgM and IgG, Hep B cAb/sAb/sAg, and Hep C Ab Monitor MELD labs daily including bilirubin, INR, creatinine, sodium Abdominal ultrasound with doppler to assess for ascites, and portal or hepatic vein thrombus Complete infectious work up including UA, blood culture, CXR, and diagnostic paracentesis (cell count and culture) Addiction medicine consult afterwards Avoid all NSAIDS Low sodium (less than 2 grams/day) diet once resumed Transplant candidacy: not a candidate given ongoing alcohol use. ? Thank you for referring this patient to the Division of Gastroenterology, [facility].?Please feel free to reach out with any questions or concerns. ?? The patient's case and management was discussed with Dr. Sheridan and Dr. Tracey Washington MD Gastroenterology Fellow PGY5 Division of Gastroenterology, [facility] (The above document was created using [employer] voice recognition software. As such, comfort advisor errors may occur. Please contact the provider for additional questions and if clarification is needed.)? Problem List/Past Medical History Ongoing Colon polyp Dry heaves Epigastric abdominal pain Hypertension Procedure/Surgical History ???Hemicolectomy Laparoscopic Right (Right) (09/13/2015) Medications Inpatient Ceftriaxone Inj, 1 Gm, IVPB, Every 24 hours HYDROmorphone Inj, 0.5 mg= 0.5 mL, IV Push Slowly, Every 4 hours, PRN NaCL 0.9% Flush, 3 mL, IV Push, Every 8 hours, PRN Octreotide Cont IV 1.25 mg [50 mcg/hr] + NaCL 0.9% Normalized 100 mL Pantoprazole Inj, 40 mg, IV Push Slowly, Every 12 hours Home acamprosate 333 mg oral delayed release tablet, 333 mg= 1 tablet, By Mouth, 3 times a day albuterol CFC free 90 mcg/inh inhalation aerosol, 1 puffs, Inhalation, 4 times a day, PRN apixaban 2.5 mg oral tablet, 2.5 mg= 1 tablet, By Mouth, 2 times a day buPROPion 300 mg/24 hours (XL) oral tablet, extended release, 300 mg= 1 tablet, By Mouth, Daily carvedilol 6.25 mg oral tablet, 6.25 mg= 1 tablet, By Mouth, 2 times a day folic acid 1 mg oral tablet, 1 mg= 1 tablet, By Mouth, Daily furosemide 40 mg oral tablet, 80 mg= 2 tablet, By Mouth, Daily hydrOXYzine pamoate 25 mg oral capsule, 25 mg= 1 capsule, By Mouth, 4 times a day, PRN lactulose 10 gm/15 ml oral syrup, 20 Gm= 30 mL, By Mouth, 3 times a day LORazepam 0.5 mg oral tablet, 0.5 mg= 1 tablet, By Mouth, Daily at bedtime omeprazole 40 mg oral enteric coated capsule, 40 mg= 1 capsule, By Mouth, Daily ondansetron 4 mg oral tablet, 4 mg= 1 tablet, By Mouth, Every 8 hours PARoxetine 20 mg oral tablet, 20 mg= 1 tablet, By Mouth, Daily rifAXIMin 550 mg oral tablet, 550 mg= 1 tablet, By Mouth, 2 times a day spironolactone 100 mg oral tablet, 200 mg= 2 tablet, By Mouth, Daily thiamine 100 mg oral tablet, 100 mg= 1 tablet, By Mouth, Daily Allergies NKA Social History Alcohol Use: Current. Frequency: Daily. Type: Liquor. Other: drinks 5 drinks per day. Tobacco Use: Former smoker, quit more than 30 days ago. Family History Bone cancer: Mother. Cancer of colon: Mat. Grandmother. Liver cancer: Mat. Grandmother. Father: History is unknown * Tracey BURDEN, Veronica: PERFORM Event Display: Consultation Note Authored Date: ?I saw and evaluated the patient. Discussed with the fellow and agree with the findings and plan as documented in the fellow's note.?See EGD note for full recs Admission evaluation note * Chi BURDEN, Nany: MODIFY, MODIFY, MODIFY, PERFORM, MODIFY, MODIFY, MODIFY Event Display: Admission Note Authored Date: Patient: ??DIAZ BARBOZA ? Age:??58 Years?Sex:??Male?:??1965?? History of Present Illness Diaz is a 58 yo M with PMH of tubular adenoma left colon, right tubular adenomas s/p terminal ileum resection (7 cm) and right hemicolectomy (25 cm), alcohol related [address] class C cirrhosis with recurrent ascites, hepatic hydrothorax, portal hypertensive gastropathy and esophageal varices s/p banding x4 in 2022 + hemospray, HTN, depression, GERD, HLD, recently diagnosed PE in early 2023 now on apixaban. Of note he was seen by IR in Feb 2023 and offered TIPS but he declined. ?? He is presenting as a transfer from outside hospital for GI bleeding requiring mass transfusion protocol in [place]. ?? He was in his usual state of health without sick contacts or any infectious symptoms, no shortness of breath or chest pain, no melena.?? 1 month ago he had received arthrocentesis and IV antibiotics for right knee septic arthritis and completed his antibiotic course for this he was on cefuroxime. 4 to 5 months ago he received a thoracentesis for hepatic hydrothorax.?? The day prior to presentation to [place] he received an outpatient therapeutic paracentesis where 8 L was removed.?? his last therapeutic paracentesis was only 2 weeks before hand.?? Prior to that he said he had gone several months without needing a therapeutic paracentesis.?? He denies ever having SBP. ?? On 02/20 at 6 in the morning he woke up coughing blood.?? He took his scheduled dose of apixaban.?? Later on in the day he felt lightheaded and had overall malaise, also developed abdominal pain so hepresented to [place] ED where he was found to be anemic to hemoglobin 7.2 then 6.7 on recheck.?? Hehad large-volume hematemesis 1.5 L of gross blood so mass transfusion protocol was initiated.?? He received 2000 units of Kcentra to reverse his apixaban as well as 4 PRBCs, 1 unit platelets, 1 unit FFP. Initially plan was to intubate him for airway protection in the setting of large-volume hematemesisbut after his vomiting he maintained appropriate mentation, was able to protect his airway, and hadno hypoxia or increased respiratory effort so intubation was deferred. ?? Hemoglobin after transfusion was 7.3 but this was obtained immediately after his transfusion.?? GI was consulted at [place] but they had recommended transfer to [facility] in case he needs emergent IR intervention. Review of Systems Constitutional: No fevers, chills, fatigue. HEENT: No headache, sinus??pressure,??teary eyes, eye discharge,??rhinorrhea, or sore throat. Cardiovascular: No chest pain or palpitations. Pulmonary: No dyspnea, shortness of breath, or cough. GI: as above : No dysuria, frequency, urgency??or hematuria. MSK: No myalgias or joint pain. Skin: No rash, discoloration, or sweats. Objective Vital Signs?? Temperature: 98.1 DegF (02/22/24 04:00:00) Temperature Route: Oral (02/22/24 04:00:00) Pulse Rate:??115 bpm??High (02/21/24 21:02:00) Heart Rate Monitored:??112 bpm??High (02/22/24 07:00:00) Respiratory Rate: 21 br/min (02/22/24 07:00:00) Systolic Blood Pressure: 128 mm Hg (02/22/24 07:00:00) Diastolic Blood Pressure: 75 mm Hg (02/22/24 07:00:00) Blood pressure sites: Arm, right (02/22/24 07:00:00) Mean Arterial Pressure: 110 mm Hg (02/21/24 21:02:00) Pulse Pressure: 53 mm Hg (02/22/24 07:00:00) Oxygen Saturation: 98 % (02/22/24 07:00:00) Mode of Delivery (Oxygen): Room air (02/22/24 07:00:00) ? Intake/Output? 02/20 20:54 02/21 07:00 02/20 07:00 02/19 07:00 02/18 07:00 ?? 02/21 07:11 02/21 07:11 02/21 06:59 02/20 06:59 02/19 06:59 Intake ? 50 ?0 ? 50 ?0 ?0 Output ?350 ?0 ?350 ?0 ?0 Net Total ? -300 ?0 ? -300 ?0 ?0 ? Physical Exam General: No acute distress, comfortable. HEENT: Normocephalic, atraumatic. Sclera anicteric, moist mucous membranes, oropharynx clear. Neck: Supple, full range of motion, trachea midline, no thyromegaly. Cardiovascular: Heart regular rate and rhythm, S1 and S2 heard, no murmurs appreciated. Radial pulses 2+ bilaterally. Pulmonary: Bibasilar crackles mild, good air movement, good effort.?? Abdomen: Soft, distended, nontender. Normal bowel sounds appreciated. : Good rectal tone, scant amounts of melena on digital rectal exam, no gross blood, small external hemorrhoids not bleeding. Extremities: Trace pitting edema. Skin: Warm and dry, mildly jaundiced. No skin breakdown. Neuro: AOx3, answers questions appropriately. Pupils equal round and reactive to light and accommodation. Extraocular movements intact. Moves 4 extremities spontaneously and symmetrically with 5/5 strength.?? Lymph: No cervical, occipital, or??auricular lymphadenopathy.?? Psych: Euthymic, spontaneous speech.?? 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 Of note he was seen by IR in Feb 2023 and offered TIPS but he declined. ?? He is presenting as a transfer from outside hospital for GI bleeding requiring mass transfusion protocol in [place]. On arrival to [facility] he is hemodynamically stable, protecting his airway, andHgb stable, no active bleeding. ? Neuro #Depression/Anxiety #Alcohol use disorder #Nicotine use (rare, a few uses of vape per week) No AMS, no hepatic encephalopathy. hold bupropion and paroxetine while strict NPO, can resume once able to take PO. Not taking acamprosate at home. Still drinking would benefit from addiction consult once GI bleed stabilized. Hold vitamins. CIWA ativan protocol. ? Cardiovascular #Sinus tachycardia #HTN Secondary to GI bleeding, BPs stable never required pressors. Can bolus PRN. Hold home Coreg. ? Pulmonary #Hepatic hydrothorax' #Pulmonary embolism Mild left pleural effusion on CXR in [place] likely repeat hepatic hydrothorax. Indwelling chest tube contraindicated for recurrent ascites and on room air, no urgent thoracentesis needed. Per GI, he will need to be intubated prior to endoscopy given high risk for bleeding and aspiration. Was on apixaban for PE that occured 5-6 months ago - Intubate 8 AM in preparation for endoscopy - Vent bundle - CXR once intubated ? Infectious Disease Never had SBP. On Ceftriaxone for GI bleeding and SBP PPX. Abdomen nontender, low concern for current SBP. ? GI/Heme #GI bleed, current esophageal variceal bleed suspected #ETOH Decompensated cirrhosis, Blank St class C #Recurrent ascities #Portal hypertensive gastropathy #Esophageal varices #Esophageal variceal bleed s/p bands x4 in 2022 #Ilectomy and Right hemicolectomy 1.5L large volume hematemesis stella blood in [place] ED 02/20 s/p mass transfusion protocol with 4pRBC, 1 unit PLTs, 1 unit FFP, 2000 units Kcentra for apixaban reversal. Since last GI bleed in 2022 the biggest change is he was started on apixaban for PE. Just had large volume paracentesis done in the outpatient setting on 02/19. ?? Plan: - strict NPO no meds by mouth - Hold lactulose, rifaximin - hold hydroxyzine for bilirubin related itching - hold lasix and spironolactone - s/p octreotide 50 mg bolus and now octreotide gtt - Pantoprazole 40 mg IV q12h - 2 units pRBC on hold - GI consult - urgent scope in AM, if significant bleeding will need IR for emergent TIPS ? Renal no active issues ? Endocrine q6h pocs, hypoglycemia emergency orders ? Code: DNR but okay for intubation DVT PPX: SCDs, holding apixaban. GI PPX: Famotidine once intubated.?? HCP notified by health care proxy.??He??named Emma Nair (in facesheet) as his HCP. HCP form names his son but he doesn't want him to be the health care proxy. ? Nany Mireles MD Medicine-Pediatrics PGY4 Pager # [phone] Available on [employer] ?? This note was transcribed using dictation software. ?? This note is not final until signed by the attending physician.?? The patient was seen and discussed with attending physician,?Dr. Gimenez. ? Histories Allergies Allergies ?(Active and Proposed Allergies Only) NKA? (Severity: Unknown severity, Onset: Unknown) ? Past Medical History/Problem List Active Problems(4) Colon polyp Dry heaves Epigastric abdominal pain Hypertension ? Past Surgical History No surgery history documented. ? Social History Alcohol Details:??Use: Current. ??Frequency: Daily. ??Type: Liquor. ??Other: drinks 5 drinks per day. Tobacco Details:??Use: Former smoker, quit more than 30 days ago. ? Family History Mother: Bone cancer Mat. Grandmother: Cancer of colon; Liver cancer ? Medications Home Medications Acamprosate (acamprosate 333 mg oral delayed release tablet)?1?tab(s)?333?Milligram?By Mouth?3 times a day Albuterol (albuterol CFC free 90 mcg/inh inhalation aerosol)?1?puff(s)?Inhalation?4 times a day?as needed?as needed for wheezing apixaban (apixaban 2.5 mg oral tablet)?1?tab(s)?2.5?Milligram?By Mouth?2 times a day BuPROpion (buPROPion 300 mg/24 hours (XL) oral tablet, extended release)?1?tab(s)?300?Milligram?By Mouth?Daily Carvedilol (carvedilol 6.25 mg oral tablet)?6.25?Milligram?1?tablet?By Mouth?2 times a day Folic Acid (folic acid 1 mg oral tablet)?1?Milligram?1?tablet?By Mouth?Daily Furosemide (furosemide 40 mg oral tablet)?80?Milligram?2?tablet?By Mouth?Daily HydrOXYzine (hydrOXYzine pamoate 25 mg oral capsule)?1?capsule?25?Milligram?By Mouth?4 times a day?as needed?for itching Lactulose (lactulose 10 gm/15 ml oral syrup)?30?Milliliter?20?gram?By Mouth?3 times a day Lorazepam (LORazepam 0.5 mg oral tablet)?1?tab(s)?0.5?Milligram?By Mouth?Daily atbedtime Omeprazole (omeprazole 40 mg oral enteric coated capsule)?1?capsule?40?Milligram?By Mouth?Daily Ondansetron (ondansetron 4 mg oral tablet)?1?tab(s)?4?Milligram?By Mouth?Every 8 hours Paroxetine (PARoxetine 20 mg oral tablet)?20?Milligram?1?tablet?By Mouth?Daily Rifaximin (rifAXIMin 550 mg oral tablet)?1?tab(s)?550?Milligram?By Mouth?2 times a day Spironolactone (spironolactone 100 mg oral tablet)?200?Milligram?2?tablet?By Mouth?Daily Thiamine (thiamine 100 mg oral tablet)?100?Milligram?1?tablet?By Mouth?Daily?for 7?Days ? Inpatient Medications Medications (8) Active SCHEDULED: (2) Ceftriaxone 1 Gm Inj (Ceftriaxone Inj) ??1 Gm, IVPB, Every 24 hours Pantoprazole 40 mg Inj (Pantoprazole Inj) ??40 mg, IV Push Slowly, Every 12 hours CONTINUOUS: (1) Octreotide 500 mcg Inj 1.25 mg [50 mcg/hr] + NaCL 0.9% (100 mL) Cont IV 100 mL (Octreotide Cont IV 1.25 mg [50 mcg/hr] + NaCL 0.9% Normalized 100 mL) ??100 mL, IV Infusion, 4 mL/hr PRN: (5) HYDROmorphone 0.5 mg/0.5 mL Inj Syringe (HYDROmorphone Inj) ??0.5 mg 0.5 mL, IV Push Slowly, Every 4 hours Lorazepam 2 mg Inj Syringe (Ativan Inj) ??1 mg, IV Push Slowly, Every 2 hours Lorazepam 2 mg Inj Syringe (Ativan Inj) ??2 mg, IV Push Slowly, Every 2 hours Lorazepam 2 mg Inj Syringe (Ativan Inj) ??2 mg, IV Push Slowly, Every hour NaCl 0.9% Flush 3ml (NaCL 0.9% Flush) ??3 mL, IV Push, Every 8 hours ? Results Recent Labs No labs resulted between 02/20/2024 00:00 and 02/21/2024 18:44? Blood Gases?? No qualifying data available. ? EKG study * Event Display: EKG Authored Date: * Event Display: ECG 12-Lead Authored Date: Please click on pdf link to open report * Event Display: ECG 12-Lead Authored Date: Ventricular Rate: 104 BPM Atrial Rate: 104 BPM P-R Interval: 168 ms QRS Duration: 82 ms Q-T Interval: 380 ms QTC Calculation(Bazett): 499 ms P [place]: 65 degrees R [place]: 55 degrees T [place]: 52 degrees Sinus tachycardia Otherwise normal ECG When compared with ECG of 21-AUG-2017 06:20, QT has lengthened Confirmed by ADDY BARRAGAN MD ([id number]) on 02/22/2024 8:51:49 AM Hanna: ADDY BARRAGAN MD US Heart * Event Display: Echocardiogram - Complete Authored Date: Transthoracic Echocardiography Report (TTE) Patient Demographics Patient Name DIAZ BARBOZA Date of Study 02/24/2024 Corporate Gender Male Facility Race .[id number] Ethnicity Date of 1965 Height: 78.35 inches Age 58 year(s) Weight: 240.31 pounds Accession Number [id number] BSA: 2.45 m2 Room Number [id number] BMI: 27.52 kg/m2 Referring Josemanuel Og MD Interpreting Flakito Velez MD Physician Physician Job Estimator Kwasi [facility] [place] Indications Heart failure. Clinical History Hypertension. Tobacco use. Alcohol abuse. Study Data Type of Study TTE procedure:Echo Complete-(Doppler, Colorflow) with Contrast. Procedure Information:Definity was administered by Flight Communications Operator . Study Date02/24/2024 Start Time: 10:47 AM Study Location: [facility] Adult Echo Study Status: Echo lab Patient Status: Routine Technical Quality: Adequate due to poor acoustical window. Blood Pressure:126/76 mmHg EKG: Within normal limits HR: 98 bpm Contrast Medium: Definity. Amount - 2 ml 2D Measurements LV Diastolic Dimension: 4.5 cm LV Systolic Dimension: 2.7 cm LV Septum Diastolic: 0.9 cm LV PW Diastolic: 0.9 cm AO Root Dimension: 3.8 cm LA Dimension: 3.6 cm LA ESV (BP):79 ml LVOT Stroke Volume: 87.39 ml LA ESV Index: 32 ml/m2 Stroke Volume Index35.67 ml/m2 LVOT: 2.2 cm Cardiac Index:3.49 l/min/m2 Ascending Aorta:3.8 cm Doppler Measurements AV Peak Velocity: 199 cm/s MV Peak E-Wave: 72 cm/s AV Peak Gradient: 15.84 mmHg MV Peak A-Wave: 100 cm/s AV Mean Gradient: 7 mmHg MV E/A Ratio: 0.72 AV VTI:26.8 cm MV P1/2t: 48 msec LVOT Peak Velocity: 133 cm/s LVOT VTI23 cm MV Deceleration Time: 163 msec AV Area (Continuity):3.26 cm2 MV Area (PHT): 4.58 cm2 TR Velocity:177 cm/s PV Peak Velocity: 127 cm/s TR Gradient:12.53 mmHg PV Peak Gradient: 6.45 mmHg E' Septal Velocity: 10.6 cm/s E' Lateral Velocity: 15.9 cm/s E/Med E':[id number] E/Lat E':4.913148 Cardiac Anatomy Left Ventricle/Interventricular Septum The left ventricular size is normal. Left ventricular wall thickness is normal. The LV systolic function is normal . The left ventricular ejection fraction is 60-65 %. There are no regional wall motion abnormalities. Grade I, mild diastolic dysfunction with impaired LV relaxation, which may be normal for the patient's age. Left Atrium/Interatrial Septum The left atrium is normal in size. The interatrial septum appears intact. Aortic Valve The aortic valve is trileaflet and normal in structure and function. There is no aortic stenosis or insufficiency. Mitral Valve The mitral valve is normal in structure and function. There is no mitral stenosis or insufficiency. Aorta The ascending aorta and aortic root are normal in size when indexed to patient's size. Right Ventricle The right ventricle is normal in size and function. Right Atrium The right atrium is normal in size. Pulmonic Valve The pulmonic valve appears grossly normal. Tricuspid Valve The tricuspid valve is normal in structure and function. There is no stenosis or insufficiency. Pumonary Artery The pulmonary artery is not well visualized. An accurate pulmonary artery pressure could not be obtained. Venous Structures The inferior vena cava appears normal. Pericardium/Extracardiac There is no pericardial effusion. Summary The right ventricle is normal in size and function. The left ventricular size is normal. Left ventricular wall thickness is normal. The LV systolic function is normal . The left ventricular ejection fraction is 60-65 %. There are no regional wall motion abnormalities. Grade I, mild diastolic dysfunction with impaired LV relaxation, which may be normal for the patient's age. There is no hemodynamically significant valvular disease. Comparison No prior study available for comparison. Signature * Event Display: Echocardiogram - Complete Authored Date: Hospital Progress note * German Plascencia RN: PERFORM, MODIFY, MODIFY, SIGN, VERIFY, SIGN, MODIFY, SIGN, MODIFY Event Display: Progress Note Hospital Authored Date: Patient: DIAZ BARBOZA Age: 58 years Sex: Male : 1965 Associated Diagnoses: None Author: German Plascencia RN Findings Problem Related to Alteration in Gastrointestinal : Alteration in Gastrointestinal Func/new 02/24/2024 13:00 EDT Alteration in GI status Related to Gastric Hemorrhage Goals & Outcomes, Gastrointestinal Establish a regular pattern of elimination for pt, Nutritional intake is adequate for metabolic needs, Pt will achieve normal/improved fluid balance, Pt will have a bowel movement prior to discharge, Pt will maintain adequate GI function appropriate for pt, Ptwill maintain normal elimination patterns, Pt will resume/maintain adequate hemodynamic status, Pt w ill tolerate age appropriate diet prior to discharge, Gastric drainage will exhibit progressive clearing, Tissue perfusion will return to baseline Interventions, Gastrointestinal Assess/monitor abdomen for distention, tenderness, Assess/monitor abdominal girth & bowel function, Assess/monitor bowel pattern, bowel sounds, flatus, Assess/monitor number of bowel movements, Assess/monitor color, quantity, quality, consistency of stoo, Assess/monitor pt for nausea, vomiting, Assess/monitor effects of re-hydration, Assess/monitor intake &output, Assess if pt tolerating diet BH Goals/Interventions, Gastrointestinal Yes Gastrointestinal, Problem Start 02/21/2024 22:11 Reviewed plan with, Gastrointestinal Patient Patient Progression, Gastrointestinal Pt progressing according to plan Comment: Gastrointestinal GIB . Evaluation Patient is alert oriented X4. Denies pain, N/V/D. LS clear on RA , denies SOB. +BS in all quadrants, ABD distended tender to touch, BM X1, soft formed. +PP. +CMS. VSS. Skin intact. Ambulates independently to the bathroom. IV octreotide infusing, 4mls/ hr. Pt remains on clear liquid. IV antibiotics administered per order. Patient in room bed locked and in lowest position call zaidi within reach hourly rounds maintained. . Discharge Information Pulmonary Rehab Discharge : Pulmonary Rehab Discharge Status 02/22/2024 16:53 EDT PEEP 5 02/22/2024 16:32 EDT PEEP 6 02/22/2024 15:00 EDT PEEP 6 02/22/2024 14:00 EDT PEEP 6 02/22/2024 13:00 EDT PEEP 6 02/22/2024 12:14 EDT PEEP 6 02/22/2024 11:00 EDT PEEP 6 02/22/2024 10:00 EDT PEEP 6 02/22/2024 9:55 EDT PEEP 6 * German Plascencia RN: PERFORM Event Display: Progress Note Hospital Authored Date: Patient came out of the room dressed with belongings packed wants to leave AMA DR informed. * German Plascencia RN: PERFORM Event Display: Progress Note Hospital Authored Date: PT walked off unit after signing the ama form. IV removed site WNL * Vi BURDEN, Mohini: MODIFY, MODIFY, MODIFY, MODIFY, PERFORM Event Display: Progress Note Hospital Authored Date: Patient: ??TAINA, DIAZ ? Age:??58 Years?Sex:??Male?:??1965?? Subjective ?? no bleeding overnight continues on PPI/ceftriaxone/ trending H/H Hg 7.2 this AM ?? he was eager to have crackers added to his clear liquid diet ? Review of Systems Objective Vital Signs?? Temperature: 98.2 DegF (02/24/24 06:00:00) Temperature Route: Oral (02/24/24 06:00:00) Pulse Rate:??111 bpm??High (02/24/24 06:00:00) Heart Rate Monitored:??108 bpm??High (02/23/24 11:00:00) Respiratory Rate: 19 br/min (02/24/24 06:00:00) Systolic Blood Pressure: 126 mm Hg (02/24/24 06:00:00) Diastolic Blood Pressure: 76 mm Hg (02/24/24 06:00:00) Blood pressure sites: Arm, right (02/24/24 06:00:00) Mean Arterial Pressure: 88 mm Hg (02/24/24 00:22:00) Pulse Pressure: 50 mm Hg (02/24/24 06:00:00) Oxygen Saturation: 100 % (02/24/24 06:00:00) Mode of Delivery (Oxygen): Room air (02/24/24 06:00:00) Early Warning Score: 5 (02/24/24 07:46:22) SOFA Calculated: -1 (02/23/24 10:17:33) ? Physical Exam General:??alert, fatigued but no acute distress conversant and lucid; able to recount details of recent hx no JVD HR 108 resp non labored, 100% on RA w/o wheezing/stridor abd soft, moderately distended but not tense no bleeding noted no new focal deficits; speech clear, no asterixis observed AAox3 ?? Results Test Name Test Result Date/Time WBC 6.5 k/mm3 02/24/2024 07:00 EDT Hgb 7.2 Gm/dL 02/24/2024 07:00 EDT Hgb 7.4 Gm/dL 02/23/2024 15:13 EDT Platelet Count 169 k/mm3 02/24/2024 07:00 EDT Sodium 136 mmol/L 02/24/2024 07:00 EDT Potassium 4.1 mmol/L 02/24/2024 07:00 EDT Glucose Level 132 mg/dL 02/24/2024 07:00 EDT Creatinine-Blood 0.83 mg/dL 02/24/2024 07:00 EDT Alkaline Phosphatase 187 units/L 02/24/2024 07:00 EDT Alkaline Phosphatase 213 units/L 02/22/2024 04:21 EDT AST (SGOT) 29 units/L 02/24/2024 07:00 EDT ALT (SGPT) 8 units/L 02/24/2024 07:00 EDT Bilirubin, Total 2.4 mg/dL 02/24/2024 07:00 EDT Bilirubin, Total 4.0 mg/dL 02/22/2024 04:21 EDT ?? Assessment/Plan Assessment:?? This is a 58 yo man with complex??PMHx including??tubular adenoma left colon, right tubular adenomas s/p terminal ileum resection (7 cm) and right hemicolectomy (25 cm), alcoho- related Blank St class C cirrhosis with recurrent ascites, s/p recent??large volume paracentesis 02/19 prior to admissio n, hepatic hydrothorax, portal hypertensive gastropathy and esophageal varices s/p banding x4 in 2022 + hemospray, HTN, depression, GERD, HLD, recently diagnosed PE in early 2023??and subsequently??on apixaban, who was transferred to [facility] MICU from [place] on 02/20 due to GI bleeding requiring massive transfusion protocol. He underwent elective intubation and had EGD demonstrating esophageal??varices with bleeding s/p banding x 3??as well as portal hypertensive gastropathy??with recommendation for in-house TIPS. ?? Of note, he was seen by IR in Feb 2023 and offered TIPS but he declined. Now open to proceeding. He transferred out of ICU on 02/22 PM, and is hemodynamically stable.? GI bleed (K92.2): Esophageal varices with bleeding (I85.01):?? Upon initial presentation to [place], found to be anemic and had about 1.5L of large volume hematemesis/stella blood s/p mass transfusion protocol with 4pRBC, 1 unit PLTs, 1 unit FFP, and 2000 units Kcentra for apixaban reversal. Hgb upon MICU arrival here 7.2, with repeat 8.2. Stable at this time. VSS.?? Total bili elevated at 4.0. AST/ALT WNL.?? Prior history of bleeding varices s/p banding x4 and hemospray??11/2022.?? Last EGD 02/02/23 with small esophageal varices w post banding ulcer, portal HTN gastropathy and duodenopathy. Was referred to IR for TIPS but deferred from further proceeding.?? Hx of recurrent ascities requiring paracenteses in the past. Most recent 02/19 with removal of ~8L of fluid.?? Since last GI bleed in 2022 the biggest change is he was started on apixaban for PE. Just had large volume paracentesis done in the outpatient setting on 02/19. EGD 02/21 showed esophageal varices??with bleeding s/p banding X3,??Portal hypertensive gastropathy.??GI recommending in-house TIPS.??Reached out to IR?placed IR generic order for??insertion of TIPS. Advancing??to clear liquid diet today. ?? Plan: - Clear liquid diet, advance as tolerated - Resume lactulose - holding lasix and spironolactone?? - s/p octreotide 50 mg bolus and now octreotide gtt running at 50 mcg/hr??- continue. - Pantoprazole 40 mg IV q12h - 2 units pRBC on hold - Pending IR placement of in-house TIPS. - If concern for rebleed and hemodynamic instability page IR ?? Hypertension (I10):??monitor BP w/ vitals?? currently, diuretics are on hold resuming carvedilol 9 PM w/ hold parameters ? Acute blood loss anemia (D62):??trend H/H and transfuse if Hg < 7; currently > 7, but gradualdowntrend-- ordered Type and screen for AM and will trend H/H daily unless new bleeding apparent orotherwise unstable ?? Portal hypertension (K76.6):?? Ascites of liver (R18.8): Decompensated liver disease (K74.69):? Alcohol use disorder: Cirrhosis of liver (K74.60):??with ascites, recent LVP 02/19 prior to admission reports drinking a few beers every 3-4 days. Last drink was 24days ago and consisted of 2 beers. Hxof shakes/tremors but no seizures. Currently denies any withdrawal sxs. Does not take Acamprosate at home. Could benefit from addiction medicine consult Former smoker - smoked 1 ppd; quit 2 months ago. Also few uses of vape per week. ?? Plan:?? added thiamine + folate supplements - CIWA protocol. No concern for active withdrawal at this time.?? STOP all ETOH encouraged ongoing tobacco cessation trend hepatic labs and INR? continues on ceftriaxone 1 gm daily for SBP prophylaxis in setting of ascites + variceal bleed ?? Anxiety/Depression: -??resume paroxetine.? VTE Prophylaxis:??had been on apixaban; currently held d/t bleeding; pneumoboots?VTE Prophylaxis Assessment:??VTE Prophylaxis Ordered ?? Discharge Planning:??pending further eval/tx ?? Ongoing Medical Necessity:??pending IR eval,??further monitoring and treatment? Code Status:??DNR (NO CPR) but ok for INTUBATION?Order Code Status:??Code Status Ordered ? * Ophelia Mcgowan: PERFORM, SIGN, VERIFY Event Display: Progress Note Hospital Authored Date: [id number] Patient: DIAZ BARBOZA Age: 58 years Sex: Male : 1965 Associated Diagnoses: None Author: Ophelia Mcgowan Findings Problem Related to Alteration in Gastrointestinal : Alteration in Gastrointestinal Func/new 02/23/2024 19:00 EDT Alteration in GI status Related to Gastric Hemorrhage Goals & Outcomes, Gastrointestinal Establish a regular pattern of elimination for pt, Nutritional intake is adequate for metabolic needs, Pt will achieve normal/improved fluid balance, Pt will have a bowel movement prior to discharge, Pt will maintain adequate GI function appropriate for pt, Ptwill maintain normal elimination patterns, Pt will resume/maintain adequate hemodynamic status, Pt w ill tolerate age appropriate diet prior to discharge, Gastric drainage will exhibit progressive clearing, Tissue perfusion will return to baseline Interventions, Gastrointestinal Assess/monitor intake & output, Establish toileting schedule for patient, Taking PO: Encourage/monitor intake & swallowing ability, Assess/monitor/manage pt's GI/ status BH Goals/Interventions, Gastrointestinal Yes Gastrointestinal, Problem Start 02/21/2024 22:11 Reviewed plan with, Gastrointestinal Patient Patient Progression, Gastrointestinal Pt progressing according to plan . Nursing Data Gastrointestinal Data. : Gastrointestinal Data. 02/23/2024 19:47 EDT Gastrointestinal Symptoms None Abdomen Tender, Distended, Round LLQ Tenderness To palpation LUQ Tenderness To palpation RLQ Tenderness To palpation RUQ Tenderness To palpation Bowel Sounds LUQ Present Bowel Sounds RUQ Present Bowel Sounds LLQ Present Bowel Sounds RLQ Present Last Bowel Movement 02/23/2024 GI WNL except . Evaluation Received patient at bedside awake and alert with no sign of respiratory distress or discomfort. Patient is on RA, LS is dim and clear, denies any SOB, chest pain, N/V, but complains of abdominal painand requests Oxycodone, made aware and Oxy was administered with good effects. Patient is NS on Tele, continuous Ocyeotride is running well, patient tolerates it without any issues. Call zaidi is within reach and patient is able to make his need known. Bed in lowest locked position. Frequent rounds maintained throughout the shift. See CIS for a full assessment. . Discharge Information Pulmonary Rehab Discharge : Pulmonary Rehab Discharge Status 02/22/2024 16:53 EDT PEEP 5 02/22/2024 16:32 EDT PEEP 6 02/22/2024 15:00 EDT PEEP 6 02/22/2024 14:00 EDT PEEP 6 02/22/2024 13:00 EDT PEEP 6 02/22/2024 12:14 EDT PEEP 6 02/22/2024 11:00 EDT PEEP 6 02/22/2024 10:00 EDT PEEP 6 02/22/2024 9:55 EDT PEEP 6 Patient Care team information Care Team Personnel Name: German Plascencia RN Position: [facility] RN Member Role: Primary Care Nurse Name: Ophelia Mcgowan Position: [facility] RN Member Role: Primary Care Nurse Name: Mohini Dowd RN Position: [facility] RN Supv Member Role: Primary Care Nurse Name: Byron Rosales RN Position: [facility] RN Member Role: Primary Care Nurse Name: Shanique Torrez RN Position: [facility] RN Supv Member Role: Primary Care Nurse Name: Martin Avilez MD Position: [facility] Physician - Primary Care Member Role: PCP Address: Address: [address] [place] [address], [address] [facility] [place] [address]- Care Team Related Persons Name: EMMA NAIR Address: [address] [place] [address] Name: SINDHU WASHINGTON Address: home [address], [place] [address]
[2024-04-22 07:18] VITALS: BMI 32.0
[2024-04-22 07:40] VITALS: BP 133/84; PULSE 106; RESP 18; TEMP 36.7; O2SAT 97
[2024-04-22] MEDS: Lactated Ringers 1,000 ML 80 ML IVCONT (08:17)
--- NOTE | 2024-04-22 08:22 | HO.ANESPROP2 ---
HPI - Anesthesia Eval Consult details Narrative: 58 yo male patient for EGD. Recently admitted. 3units PRBC 04/18-04/19. Not actively bleeding PMFSH Active Problems Active Problems: All Active Problems Acute blood loss anemia (Acute) Bilateral knee pain (Acute) Alcoholic cirrhosis of liver with ascites (Acute) Lung mass (Acute) Upper GI bleeding (Acute) Pancreatic malignant neoplasm (Acute) Diarrhea (Acute) Retroperitoneal mass (Acute) Non-compliance (Acute) Cellulitis (Acute) Septic arthritis of knee, right (Acute) Septic arthritis of knee, right (Acute) Swelling of right knee joint (Acute) Septic arthritis of knee, right (Acute) Abnormal gastrointestinal PET scan (Acute) Pulmonary nodule 1 cm or greater in diameter (Acute) Gallbladder polyp (Acute) Nausea (Acute) Pleural effusion (Acute) Shortness of breath (Acute) Anemia (Acute) Varices of esophagus determined by endoscopy (Acute) Ascites (Acute) Newly diagnosed diabetes (Acute) group home current use of diuretic (Acute) Acute pancreatitis (Acute) Blood D-dimer assay positive (Acute) Dyspnea (Acute) Pericardial effusion (Acute) Alcohol use disorder, moderate, in early remission (Acute) Hyperammonemia (Acute) Hepatopulmonary syndrome (Acute) Bronchopneumonia (Acute) Hydrothorax (Acute) Alcoholic cirrhosis of liver (Acute) Portal vein thrombosis (Acute) Alcohol withdrawal (Acute) Elevated liver function tests (Acute) Irritable bowel syndrome with diarrhea (Acute) Pleural effusion (Acute) Acute alcoholic pancreatitis (Acute) Neuropathic pain (Acute) Multiple adenomatous polyps (Acute) Degenerative disc disease, cervical (Acute) Chronic low back pain (Acute) Spinal stenosis (Acute) Pulmonary embolism, bilateral (Acute) Pleuritic chest pain (Acute) Recurrent left pleural effusion (Acute) Pleural effusion (Acute) Pericardial effusion (Acute) Tachycardia (Acute) Dyspnea (Acute) Past Medical History Medical History Pulmonary nodule 1 cm or greater in diameter Pleuritic chest pain Pulmonary embolism, bilateral Cirrhosis of liver Diabetes Alcohol use disorder, moderate, dependence Recurrent left pleural effusion Pleural effusion Pericardial effusion Tachycardia Dyspnea Hydropneumothorax Pleural effusion on right Decompensation of cirrhosis of liver Cirrhosis GERD (gastroesophageal reflux disease) Esophageal varices Chronic abdominal pain Gout Peripheral neuropathy Alcoholism Elevated LFTs Family History Family History Mother Cancer Sister Cancer Family history of problems with anesthesia: No Surgical History Surgical History S/P right knee arthroscopy History of abdominal paracentesis Hx of esophagogastroduodenoscopy History of thoracentesis H/O colonoscopy H/O cervical spine surgery H/O hemicolectomy History of Problems with Anesthesia: No Social History Social History Household Members: Other Household Members Other:: 1 Housing: Apartment Are you a primary early breastfeeding care specialist to a significant other at home: No Do you presently have visiting nurse or other home services: No Alcohol intake: current Alcohol intake frequency: 0-2 drinks per day Alcohol type: beer Comment: counts correct Patient Tobacco Use Status: Former Tobacco user Tobacco use type: Cigarette Years Smoked: 35 e-Cigarette/Vaping Use: Currently Using Second Hand Smoke Exposure: No Substance Use Type: Marijuana Substance Use Type Other:: patient denies other substances Substance Use Frequency: Daily Have you been hit, kicked, punched, or otherwise hurt by someone within the past year? If so, by whom?: No Are you DNR?: No Advance Directives: No Advance Directives Information Provided: Yes Advance Directives Date on File: 11/27/22 Recently lost weight without trying: No Nutrition Risks: No Nutritional Risk service: No Current occupational status: unemployed Meds Allergies Allergy/AdvReac Type Severity Reaction Status Date / Time No Known Drug Allergies Allergy Mild NONE Verified 04/22/24 07:24 [NO KNOWN DRUG ALLERGIES] Active Medications: Current Medications Lactated Ringer's (Lr) 1,000 mls @ 80 mls/hr IVCONT .[id number] RYAN Last Admin: 04/22/24 08:17 Dose: 80 mls/hr Home Medications ?Medication ?Instructions ?Recorded ?Confirmed ?Last Taken ?Type bupropion HCl 300 mg 24 hr tablet, 300 mg PO DAILY 06/10/21 04/22/24 04/16/24 History extended release folic acid 1 mg tablet 1 mg PO DAILY 06/10/21 04/22/24 04/16/24 History thiamine HCl (vitamin B1) 100 mg 100 mg PO DAILY 06/10/21 04/22/2424 History tablet hydroxyzine pamoate 25 mg capsule 50 mg PO DAILY PRN itching 01/26/22 04/22/24 04/16/24 History lorazepam 0.5 mg tablet 0.5 mg PO DAILY PRN anxiety attack 07/13/22 04/22/24 04/16/24 History apixaban 5 mg tablet (Eliquis) 5 mg PO BID 03/27/24 04/22/24 04/17/24 History oxycodone 5 mg tablet 5 mg PO BID PRN Pain 03/31/24 04/22/24 04/16/24 History albuterol sulfate 90 mcg/actuation 2 puff inhalation Q6H PRN 04/18/24 04/22/24 04/16/24 History aerosol inhaler Shortness Of Breath Or Wheezing Exam Height,Weight and Vital Signs: Height 6 ft 5 in Weight 122.47 kg Last Vital Signs Temp 98.1 F 04/22/24 07:40 Pulse 106 H 04/22/24 07:40 Resp 18 04/22/24 07:40 BP 133/84 04/22/24 07:40 Pulse Ox 97 04/22/24 07:40 O2 Del Method Room Air 04/22/24 07:40 Assessment and Plan Final Anesthetic Review Family History of Problems with Anesthesia: No History of Problems with Anesthesia: No
[2024-04-22 08:29] LABS: Amphetamine Screen Urine Not Detected (Not Detect); Barbiturates, Urine Not Detected (Not Detect); Benzodiazepines Screen Urine Not Detected (Not Detect); Buprenorphine Scr Not Detected (Not Detect); Cannabinoid Screen Urine POSITIVE (Not Detect); Cocaine Screen Urine POSITIVE (Not Detect); Fentanyl, urine Not Detected (Not Detect); Methadone Screen, Urine Not Detected (Not Detect); Opiate Screen Urine Not Detected (Not Detect); Oxycodone Screen Urine Positive (Not Detect); Phencyclidine Screen Urine Not Detected (Not Detect)
--- NOTE | 2024-04-22 08:54 | PC.NURSE ---
Patient had a positive tox screen and Dr. Graham talked with patient and today's procedure is cancelled. Dr. Graham stated she will reschedule patient for EGD. IV removed. Patient left with all belongings and signed belongings list.
== END ==
LOC: HO.SSS 07:01
PROVIDERS: Anesthesiology; PCP Internal Medicine; Visit Provider Internal Medicine Gastroenterology
DX: K21.9 Gastro-esophageal reflux disease without esophagitis (principal); Z53.9 Procedure and treatment not carried out, unspecified reason; R82.5 Elevated urine levels of drugs, medicaments and biological substances
CPT/HCPCS: 80307; J0171; J0330; J2704; J3010; P9047

== ENCOUNTER 2024-04-23 11:13 | Day surgery (SDC) | payer OTHER, SELFPAY ==
--- NOTE | ~2024-04-23 | US_ITS ---
Ultrasound paracentesis History: Ascites. Risks and benefits and possible complications were discussed with the patient and consent form was signed. A safe pocket of ascitic fluid was identified using ultrasound guidance, and the overlying skin was marked. The abdomen prepped and draped in sterile fashion. 1% lidocaine was used as a local anesthetic. Using ultrasound guidance, a 5 fr catheter was placed into the ascitic pocket. 10.0 liters of yellow fluid was removed passively. The catheter was then removed. The patient received 75 g of albumin. A few medical office representative images from before and after the examination were obtained. The procedure was performed by Lenard Sandra PA-C and supervised by Dr. Salazar. US/US paracentesis abd w/image Impression: Ultrasound-guided paracentesis as described above. No immediate complications Electronically signed by: Darrion Salazar MD 04/24/2024 03:44 PM EDT
[2024-04-23 11:35] VITALS: BMI 33.2
[2024-04-23] MEDS: Albumin Human 25 % 100 ML IV ×2 (11:44→13:48)
[2024-04-23] MEDS: Lidocaine HCl 1 % MPF 5 ML VIAL SUBCUT (13:37)
[2024-04-23 13:45] VITALS: BP 121/69; PULSE 104; RESP 16; TEMP 36.9; O2SAT 98
[2024-04-23 14:00] VITALS: BP 124/67; PULSE 105; RESP 16; O2SAT 98
[2024-04-23 14:15] VITALS: BP 124/71; PULSE 107; RESP 16; O2SAT 98
== END 2024-04-23 14:34 | disposition home or self-care (01) ==
PROVIDERS: Physician Assistant Surgical; PCP Internal Medicine; Visit Provider Internal Medicine Gastroenterology
DX: R18.8 Other ascites (principal); D64.9 Anemia, unspecified; I10 Essential (primary) hypertension; E78.5 Hyperlipidemia, unspecified; K21.9 Gastro-esophageal reflux disease without esophagitis; K70.30 Alcoholic cirrhosis of liver without ascites; Z86.711 Personal history of pulmonary embolism; Z79.4 Long term (current) use of insulin; Z79.01 Long term (current) use of anticoagulants; Z79.899 Other long term (current) drug therapy
CPT/HCPCS: 49083; J2003; P9047

== ENCOUNTER → 2024-04-23 12:45 | Outpatient (BNV) | payer OTHER, SELFPAY | PROVIDERS: PCP Internal Medicine; Visit Provider Physician Assistant Surgical | DX: R18.8 Other ascites (principal) | CPT/HCPCS: 49083 ==

== ENCOUNTER 2024-04-28 10:08 | Outpatient (REF) | payer OTHER, SELFPAY ==
[2024-04-28 12:28] LABS: Basophils Absolute Auto 0.1 X10*3/uL (0.0-0.2); Basophils Percent Auto 1.9 % (0-2); Eosinophils Absolute Auto 0.1 X10*3/uL (0.0-0.4); Eosinophils Percent Auto 3.7 % (0-4); Hematocrit 23.9 % (42.0-52.0); Imm Gran Abs Auto 0.01 X10*3/uL (0.00-0.03); Imm Gran Pct Auto 0.3 % (0.0-0.4); Immature Retic Fraction 27.7 % (2.3-13.4); Lymphocytes Absolute Auto 0.7 X10*3/uL (1.2-4.9); Lymphocytes Percent Auto 17.5 % (20-40); MANUAL DIFF FLAG SCAN; Mean Corpuscular HGB Conc 28.9 g/dl (31.0-36.0); Mean Corpuscular Hemoglobin 21.4 pg (27.0-33.0); Mean Corpuscular Volume 74.2 fL (80.0-98.0); Mean Platelet Volume 9.2 fL (9.4-12.4); Monocytes Absolute Auto 0.6 X10*3/uL (0.1-1.2); Monocytes Percent Auto 16.9 % (2-11); Neutrophils Absolute Auto 2.3 x10*3/uL (2.0-8.3); Neutrophils Percent Auto 59.7 % (45-73); Platelet Count 267 X10*3/uL (160-400); Red Blood Count 3.22 X10*6/uL (4.60-5.80); Retic HGB Equivalent 18.3 pg (30.0-35.0); Reticulocyte Percent 2.3 % (0.5-1.8); Reticulocytes Absolute 0.074 X10*6/uL (0.026-0.095); SCAN SMEAR FLAG 1; White Blood Count 3.8 X10*3/uL (4.8-10.8)
[2024-04-28 12:35] LABS: Hemoglobin 6.9 g/dl (14.0-18.0)
[2024-04-28 13:23] LABS: SLIDE REVIEW VERIFIED
[2024-04-28 14:34] LABS: Haptoglobin 129 mg/dL (14-258)
== END 2024-04-28 10:09 | disposition home or self-care (01) ==
LOC: HO.LAB 10:08
PROVIDERS: Internal Medicine Gastroenterology; PCP Physician Assistant Medical; Visit Provider Physician Assistant Medical
DX: K70.31 Alcoholic cirrhosis of liver with ascites (principal); D62 Acute posthemorrhagic anemia; D64.9 Anemia, unspecified
CPT/HCPCS: 36415; 83010; 85025; 85027; 85045; 86880

== ENCOUNTER 2024-05-08 08:00 | Day surgery (SDC) | payer OTHER, SELFPAY ==
[2024-05-08] VITALS (11 sets, daily range): BP systolic 116–136; BP diastolic 74–86; PULSE 92–111; RESP 15–20; TEMP 36.1–36.6; O2SAT 98–100; BMI 35.8
--- NOTE | ~2024-05-08 | US_ITS ---
ULTRASOUND GUIDED PARACENTESIS HISTORY: Ascites. Therapeutic drainage. TECHNIQUE: Risks and benefits and possible complications were discussed with the patient and consent form was signed. A safe pocket of ascitic fluid was identified using ultrasound guidance, and the overlying skin was marked. The abdomen prepped and draped in sterile fashion. 1% lidocaine was used as a local anesthetic. Using ultrasound guidance, a 5 fr catheter was placed into the ascitic pocket. 10 liters of yellow fluid was removed passively. The catheter was then removed. 75 g of albumin was administered to the patient. A few pharmaceutical sales representative images from before and after the examination were obtained. The procedure was performed by Lenard Sandra PA-C and supervised by Dr. El. US/US paracentesis abd w/image IMPRESSION: Ultrasound-guided paracentesis as described above. No immediate complications Electronically signed by: Dao El MD 05/09/2024 12:58 PM [facility]
[2024-05-08 08:29] LABS: Glucose, Whole Blood 171 mg/dL (60-115)
[2024-05-08] MEDS: Albumin Human 25 % 100 ML IV ×3 (09:42→10:37)
[2024-05-08] MEDS: Lidocaine HCl 1 % MPF 5 ML VIAL SUBCUT (10:19)
== END 2024-05-08 11:30 | disposition home or self-care (01) ==
PROVIDERS: Physician Assistant Surgical; PCP Internal Medicine; Visit Provider Internal Medicine Gastroenterology
DX: K70.31 Alcoholic cirrhosis of liver with ascites (principal); K76.81 Hepatopulmonary syndrome; F10.20 Alcohol dependence, uncomplicated; E11.9 Type 2 diabetes mellitus without complications; D64.9 Anemia, unspecified; R53.83 Other fatigue; R63.0 Anorexia; Z68.31 Body mass index [BMI] 31.0-31.9, adult; I26.99 Other pulmonary embolism without acute cor pulmonale; Z79.01 Long term (current) use of anticoagulants; Z79.4 Long term (current) use of insulin; Z79.899 Other long term (current) drug therapy; Z87.891 Personal history of nicotine dependence
CPT/HCPCS: 49083; 82947; J2003; P9047

== ENCOUNTER → 2024-05-08 08:57 | Outpatient (BNV) | payer OTHER, SELFPAY | PROVIDERS: PCP Internal Medicine; Visit Provider Physician Assistant Surgical | DX: R18.8 Other ascites (principal) | CPT/HCPCS: 49083 ==

== ENCOUNTER 2024-05-20 07:54 | Day surgery (SDC) | payer OTHER, SELFPAY ==
[2024-05-20] VITALS (10 sets, daily range): BP systolic 110–123; BP diastolic 68–75; PULSE 75–88; RESP 11–20; TEMP 36.4–36.7; O2SAT 97–100; BMI 29.6
--- NOTE | ~2024-05-20 | US_ITS ---
Ultrasound paracentesis History: Ascites. Risks and benefits and possible complications were discussed with the patient and consent form was signed. A safe pocket of ascitic fluid was identified using ultrasound guidance, and the overlying skin was marked. The abdomen prepped and draped in sterile fashion. 1% lidocaine was used as a local anesthetic. Using ultrasound guidance, a 5 fr catheter was placed into the ascitic pocket. 9.9 liters of eliseo fluid was removed passively. The catheter was then removed. Patient received a total of 75 g albumin A few commissary representative images from before and after the examination were obtained. The procedure was performed by Lenard Sandra PA-C and supervised by Dr. Singleton. US/US paracentesis abd w/image Impression: Ultrasound-guided paracentesis as described above. No immediate complications Electronically signed by: Darrion Salazar MD 05/26/2024 04:21 PM SHERRY SEGOVIA
--- OUTSIDE RECORDS SUMMARY | 2024-05-20 07:57 | XMS_ITS | Continuity of Care Document ---
Author Organization [facility] Address [address] [place] [address]- Care Team Providers Care Skin Grader Name Role Phone Martin Avilez MD Primary Care Physician Encounter [facility] [place] [facility] [place] Date(s): 03/24/24 - 04/23/24 [facility] [address] [place] [address]- [place] Allergies, Adverse Reactions, Alerts No Known [...] Care Nurse Name: Mohini Dowd RN Position: [facility] RN Supv Member Role: Primary Care Nurse Name: Byron Rosales RN Position: [facility] RN Member Role: Primary Care Nurse Name: Shanique Torrez RN Position: [facility] RN Supv Member Role: Primary Care Nurse Name: Martin Avilez MD Position: [facility] Physician - Primary Care Member Role: PCP Address: Address: [address] [place] [address], [address] [place] [address]- Care Team Related Persons Name: ROSALBA NAIR Address: [address] [place] [address] Name: SINDHU WASHINGTON Address: home [address] [address]
--- OUTSIDE RECORDS SUMMARY | 2024-05-20 07:57 | XMS_ITS | Continuity of Care Document ---
Author Organization [facility] Address [address] [place] [address]- Care Team Providers Care Manhole Stripper Name Role Phone Martin Avilez MD Primary Care Physician [phone] Encounter [facility] [place] Date(s): 02/28/24 - 04/23/[address] [address] Attending Physician: Jesus Sheridan Jr, MD Admitting Physician: Jesus Sheridan Jr, MD Allergies, Adverse Reactions, Alerts No Known [...] Team Personnel Name: German Plascencia RN Position: [facility] RN Member Role: Primary Care Nurse Name: pOhelia Mcgowan Position: [facility] RN Member Role: Primary Care Nurse Name: Mohini Dowd RN Position: [facility] RN Supv Member Role: Primary Care Nurse Name: Byron Rosales RN Position: [facility] RN Member Role: Primary Care Nurse Name: Shanique Torrez RN Position: [facility] RN Supv Member Role: Primary Care Nurse Name: Martin Avilez MD Position: [facility] Physician - Primary Care Member Role: PCP Address: Address: [address] [place] [address], [address] [facility] [place] [address]- Care Team Related Persons Name: ROSALBA NAIR Address: home [address] [place] [address] Name: SINDHU WASHINGTON Address: home [address] [address]
--- OUTSIDE RECORDS SUMMARY | 2024-05-20 07:57 | XMS_ITS | Continuity of Care Document ---
Author Organization [facility] Address [address] [place] [address]- Care Team Providers Care Voice Studies Director Name Role Phone Raghav BURDEN, Martin Quintanilla Primary Care Physician [phone] Encounter [facility] [place] Date(s): 03/25/24 - 04/24/24 [facility] [address] [place], [place] [address] Allergies, Adverse Reactions, Alerts No Known [...] Primary Care Nurse Name: Ophelia Mcgowan Position: [facility] RN Member Role: Primary Care Nurse Name: Mohini Dowd RN Position: [facility] RN Supv Member Role: Primary Care Nurse Name: Byron Rosales RN Position: [facility] RN Member Role: Primary Care Nurse Name: Shanique Torrez RN Position: [facility] RN Supv Member Role: Primary Care Nurse Name: Martin Avilez MD Position: [facility] Physician - Primary Care Member Role: PCP Address: Address: [address] [place] [address], [address] [facility] [place] [address]- Care Team Related Persons Name: ROSALBA NAIR Address: [address] [place] [address] Name: SINDHU WASHINGTON Address: [address], [place] [address]
--- OUTSIDE RECORDS SUMMARY | 2024-05-20 07:57 | XMS_ITS | Continuity of Care Document ---
Author Organization [facility] Address [address] [place] [id number] Care Team Providers Care Care Specialist Name Role Phone Martin Avilez MD Primary Care Physician Encounter [facility] [id number] Date(s): 05/12/24 - 05/19/24 [facility] [address] [place] [id number] Attending Physician: Jeff Buchanan MD Admitting Physician: Jeff Buchanan MD Referring Physician: Martin Avilez MD Encounter Type: Office Visit Allergies, Adverse Reactions, Alerts No Known Allergies Immunizations Given and Recorded Vaccine Date Status Refusal Reason SARS-CoV-2 (COVID-19) Ad26 vaccine 12/07/20 Given Medications acamprosate 333 mg oral delayed release tablet 2 tablet = 666 mg, By Mouth, 3 times a day, # 180 tablet, 2 Refills, Maintenance, 05/15/24 4:35:00 PM EST, Tablet, [facility], Partial fill upon patient request if the prescription is for a schedule II opioid drug., 199, cm, 05/15/24 15:42:00 EST, Height, 120.5, kg, 05/14/24 12:22:00 EST, Dry Weight Start Date: 05/15/24 Status: Ordered Quantity: 180.0 Unit: tablet Repeat number: 3 albuterol CFC free 90 mcg/inh inhalation aerosol 1, puffs, Inhalation, 4 times a day, PRN, # 6.7 Gm, Refills 0, Maintenance, 02/22/24 6:17:00 AM EDT,Aerosol Start Date: 02/22/24 Status: Ordered Quantity: 6.7 Unit: g Repeat number: 1 apixaban 2.5 mg oral tablet 1 tablet = 2.5 mg, By Mouth, 2 times a day, HOLD FOR NEXT 3 DAYS, UNTIL 05/18/24, GET BLOOD IN 3 DAYS, FOR ANEMIA, AND TALK TO YOUR PCP / CLINICAL DOCUMENTATION SPEC TO RESTART APIXABAN, # 60 tablet, 0 Refills, Maintenance, 02/22/24 6:21:00 AM EDT, Tablet, Partial fill upon patient request if the prescription is for a schedule II opioid drug. Start Date: 02/22/24 Status: Ordered Quantity: 60.0 Unit: tablet Repeat number: 1 buPROPion 300 mg/24 hours (XL) oral tablet, extended release 1 tablet = 300 mg, By Mouth, Daily, # 30 tablet, 0 Refills, Maintenance, 02/22/24 6:17:00 AM EDT, ERTablet, Partial fill upon patient request if the prescription is for a schedule II opioid drug. Start Date: 02/22/24 Status: Ordered Quantity: 30.0 Unit: tablet Repeat number: 1 carvedilol 6.25 mg oral tablet 6.25 mg, 1, tablet, By Mouth, 2 times a day, # 60 tablet, Refills 0, Maintenance, 02/22/24 6:21:00 AM EDT, Partial fill upon patient request if the prescription is for a schedule II opioid drug. Start Date: 02/22/24 Status: Ordered Quantity: 60.0 Unit: tablet Repeat number: 1 ferrous sulfate 325 mg oral tablet 1 tablet = 325 mg, By Mouth, Daily, # 30 tablet, 2 Refills, Maintenance, 05/15/24 4:43:00 PM EST, Tablet, [facility], Partial fill upon patient request if the prescription is for a schedule II opioid drug., 199, cm, 05/15/24 15:42:00 EST, Height, 120.5, kg, 05/14/24 12:22:00 EST, Dry Weight Start Date: 05/15/24 Status: Ordered Quantity: 30.0 Unit: tablet Repeat number: 3 folic acid 1 mg oral tablet 1 mg, 1, tablet, By Mouth, Daily, # 30 tablet, Refills 0, Maintenance, 02/22/24 6:17:00 AM EDT, Partial fill upon patient request if the prescription is for a schedule II opioid drug. Start Date: 02/22/24 Status: Ordered Quantity: 30.0 Unit: tablet Repeat number: 1 furosemide 40 mg oral tablet 40 mg, 1, tablet, By Mouth, 2 times a day, 9am and 1 pm, # 30 tablet, Refills 0, Maintenance, 02/22/24 6:19:00 AM EDT, Partial fill upon patient request if the prescription is for a schedule II opioiddrug. Start Date: 02/22/24 Status: Ordered Quantity: 30.0 Unit: tablet Repeat number: 1 gabapentin 300 mg oral capsule 300 mg, 1, capsule, By Mouth, Daily, # 30 capsule, Refills 2, Tot. Refills 2, Maintenance, :51:00 PM EST, Route to Pharmacy Electronically, [facility], Partial fill upon patient request if the prescription is for a schedule II opioid drug., 199, cm, 05/15/24 15:42:00 EST, Height, 120.5, kg, 05/14/24 12:22:00 EST, Dry Weight Start Date: 05/15/24 Status: Ordered Quantity: 30.0 Unit: capsule Repeat number: 3 hydrOXYzine pamoate 25 mg oral capsule 1 capsule = 25 mg, By Mouth, 4 times a day, PRN for itching, # 40 capsule, 0 Refills, Maintenance, 02/22/24 6:18:00 AM EDT, Capsule, Partial fill upon patient request if the prescription is for a schedule II opioid drug. Start Date: 02/22/24 Status: Ordered Quantity: 40.0 Unit: capsule Repeat number: 1 LORazepam 0.5 mg oral tablet 1 tablet = 0.5 mg, By Mouth, Daily, PRN as needed for anxiety, 0 Refills, Maintenance, 02/22/24 6:18:00 AM EDT, Tablet, Partial fill upon patient request if the prescription is for a schedule II opioid drug. Start Date: 02/22/24 Status: Ordered Repeat number: 1 omeprazole 40 mg oral enteric coated capsule 1 capsule = 40 mg, By Mouth, Daily, # 30 capsule, 0 Refills, Maintenance, 02/22/24 6:22:00 AM EDT, EC Capsule, Partial fill upon patient request if the prescription is for a schedule II opioid drug. Start Date: 02/22/24 Status: Ordered Quantity: 30.0 Unit: capsule Repeat number: 1 ondansetron 4 mg oral tablet 1 tablet = 4 mg, By Mouth, Every 8 hours, PRN Nausea & Vomiting, # 12 tablet, 0 Refills, Maintenance, 02/22/24 6:18:00 AM EDT, Tablet, Partial fill upon patient request if the prescription is for a schedule II opioid drug. Start Date: 02/22/24 Status: Ordered Quantity: 12.0 Unit: tablet Repeat number: 1 PARoxetine 20 mg oral tablet 20 mg, 1, tablet, By Mouth, Daily, # 30 tablet, Refills 0, Maintenance, 02/22/24 6:18:00 AM EDT, Partial fill upon patient request if the prescription is for a schedule II opioid drug. Start Date: 02/22/24 Status: Ordered Quantity: 30.0 Unit: tablet Repeat number: 1 rifAXIMin 550 mg oral tablet 1 tablet = 550 mg, By Mouth, 2 times a day, # 60 tablet, 0 Refills, Maintenance, 02/22/24 6:22:00 AMEDT, Tablet, Partial fill upon patient request if the prescription is for a schedule II opioid drug. Start Date: 02/22/24 Status: Ordered Quantity: 60.0 Unit: tablet Repeat number: 1 spironolactone 100 mg oral tablet 200 mg, 2, tablet, By Mouth, Daily, # 30 tablet, Refills 0, Maintenance, 02/22/24 6:19:00 AM EDT, Partial fill upon patient request if the prescription is for a schedule II opioid drug. Start Date: 02/22/24 Status: Ordered Quantity: 30.0 Unit: tablet Repeat number: 1 thiamine 100 mg oral tablet 100 mg, 1, tablet, By Mouth, Daily, # 7 tablet, Refills 0, Maintenance, 02/22/24 6:17:00 AM EDT, Partial fill upon patient request if the prescription is for a schedule II opioid drug. Start Date: 02/22/24 Stop Date: 02/29/24 Status: Ordered Quantity: 7.0 Unit: tablet Repeat number: 1 Problem List Condition Confirmation Course Effective Dates Status H ealth Status Informant Alcoholic cirrhosis Confirmed Active Depression Confirmed Active Epigastric abdominal pain Confirmed Active Esophageal varices Confirmed Active GERD (gastroesophageal reflux disease) Confirmed Active Hyperlipidemia Confirmed Active Hypertension Confirmed Active Colon polyp Confirmed Active Portal hypertensive gastropathy Confirmed Active Dry heaves Confirmed Active Social History Social History Type Response Smoking Status Former smoker, quit more than 30 days ago entered on: 03/19/23 Sex Sex Representation Male (finding) Radiology * Dewayne BURDEN, Jeff: PERFORM, MODIFY Event Display: IR Office Follow-up Note Authored Date: [id number] Patient: ??DIAZ HER ? Age:??58 Years?Sex:??Male?:??1965?? Telemedicine Service was provided using telemedicine Chief Complaint Cirrhosis, ascites, bleeding varices Reason For Visit Discuss upcoming TIPS creation History of Present Illness 57 yo patient with alcohol-related cirrhosis, bleeding esophageal varices s/p prior bandings (most recently in January 2024), recurrent ascites currently requiring large volume paracentesis every two weeks, prior hepatic hydrothorax (last??thoracentesis??over one year prior per patient), anemia requiring blood transfusions, HTN, diabetes, prior PE (previously on Eliquis, last taken 04/16/24), GERD, gout, prior tubular adenoma of the colon s/p right hemicolectomy, who presented today via telephone for discussion of upcoming TIPS creation tentatively scheduled for Sunday05/14/24. He attendedthe visit by himself. ?? I first met with the patient??in clinic in February 2023, at which time elective TIPS creation wasdiscussed.?? He was actively??drinking alcohol at the time, which excluded him from transplant candidacy. ??Following an extensive discussion with the patient regarding the procedure, as well as discussion regarding the risks, benefits and alternatives, after initially agreeing to the procedure, the patient subsequently declined, and rescheduled and then canceled follow-up IR visits.?? He was then admitted to [facility] [place] [place] [facility] [place]??presentation with anemia,??an episode of massive hematemesis??requiring massive transfusion protocol??and intubation in end January 2024. ??He underwent endoscopy??on 02/22/24, which demonstrated bleeding esophageal varices and 4 bands were appliedfor hemostasis.?? After endoscopy, patient was extubated successfully.?? MELD-Na at the time was 16. ??The patient was tentatively planned for??TIPS creation as an inpatient, and was actively undergoing workup??including cross-sectional imaging and echocardiogram??(performed 02/24/2024, grossly normal), at which time he discharged against??medical medicine. ?? The patient reports that since that time, he has been in his usual state of health and??with no repeat episodes??of hematemesis,??melena or hematochezia. ??The patient reported that his most recent paracentesis was for 10 L at [facility] on Sunday or Sunday of last week, he has routine large-volume paracenteses performed he will??every 2 weeks, and undergoes albumin replacement??at the time of paracentesis.?? He stated he has not had a thoracentesis??for??history of hepatic hydrothorax for at least 1 year.?? He does not smoke cigarettes. ??He??vapes once in a while . ??He is u sing??marijuana??edibles on a near-daily basis to assist with sleep.?? He drinks approximately 5 alcoholic drinks??per week??(mix of beer and hard liquor) per his report.?Patient denies any history of??alcohol??withdrawal symptoms including tremors or??seizures. ??He has progressive dyspnea??once there is buildup of ascitic fluid.?? No chest pain. ??No nausea or vomiting. ??No fevers or chills.?? He has not taken his Eliquis for at least 2 weeks, per report on??the advice of his physician [facility]??( I was told I no longer need to take that ). ?? With the patient's consent, I obtained a copy of his most recent medical records??from [facility].?? It appears that he was admitted??as an inpatient there??on 04/18/2024 due to??acuteon chronic anemia,??following??an H&H of 5 and 17.2.?? He underwent??transfusion of multiple units of blood at [facility] (at least 3 per outside notes). ??Note from 04/18/2024??stated patient had ongoing fatigue, orthostatic dizziness, no??nausea, vomiting, hematemesis, melena or hematochezia.?? Drinking 2 beers per day.?? A CT of the abdomen and pelvis performed??on 04/18/2024 demonstrated cirrhosis with large volume ascites,??cholelithiasis, large fluid-filled umbilical hernia, moderate volume l eft-sided pleural effusion.?? We will request a copy of this imaging.?? OSH lab work from 04/18/2024??included CBC with WBC??4.0,??Hgb 5.1, HCT 17.3, PLT??205, 000;??BMP with??sodium 133, potassium 4.5, chloride 105, carbon dioxide 23, BUN 10, creatinine 0.97, calcium 8.4; LFTs??with total bilirubin 1.5, AST 33, ALT 10,??alk phos 217, albumin 2.7; urinalysis??with cloudy dark yellow appearance, negative for protein??and negative for glucose.?? Repeat lab work on 04/19/2024??was??also present inthe scanned notes.?? CBC from this date with??WBC 3.8, Hgb 6.2, HCT 20.9,??PLT 191, 000; BMP??with sodium 134, potassium 3.9, chloride 106,??carbon dioxide 22, BUN 8, creatinine 0.82,??glucose 103; ca lcium 8.2 and lactate dehydrogenase approximately 5.?? Per [facility] [place] [facility] notes,??on 04/19/2024 the patient was??stable without signs of active bleeding, no signs of SBP or encephalopathy. ??Per the notes,??outpatient EGD was planned for follow- up of varices. ??Due to the patient's ongoing??alcohol and substance use, he is not a candidate for liver transplantation at present. Review of Systems As per HPI above, otherwise negative. Physical Exam Deferred, telehealth visit. Assessment/Plan 57 yo patient with alcohol-related cirrhosis, bleeding esophageal varices s/p prior bandings (most recently banding x4 in January 2024), recurrent ascites currently requiring large volume paracentesisevery two weeks, prior hepatic hydrothorax (last??thoracentesis??over one year prior per patient), anemia requiring blood transfusions, HTN, diabetes, prior PE (previously on Eliquis, last taken 04/16/24), GERD, gout, prior tubular adenoma of the colon s/p right hemicolectomy now planned for TIPS creation under General Anesthesia on Sunday05/14/24. Patient previously declined TIPS creation onelective basis in February 2023, and left hospital against medical advice when being worked up forinpatient TIPS creation in early February 2024. Since the time of hospital admission in january-early February 2024 for massive hematemesis requiring massive transfusion protocol, intubation andEGD with banding x4 of spurting varices, he has also had an outpatient admission at [facility] around 04/18/24 for severe anemia (Hgb 5), with partial response to transfusion of 3 u pRBC.He had no evidence of active bleeding during [facility] [place] and was reported to be hemodynamically stable per OSH notes. ??We will request his most recent OSH imaging from 04/18/2024.?? Most recent large-volume paracentesis approximately 6 days prior for 10 L.?? He is actively drinking alcohol, denies prior history of withdrawal symptoms.?? We are unable to calculate his most recent MELD-NA??due to no coag panel available with OSH lab work from??end March 2024, however his previous MELD scores have ranged between 14-19.?? He is presently mentating well, and no overt signs of e ncephalopathy during today's telephone visit. ?? We discussed the technique for TIPS creation, which involves accessing a vein in the neck??once the patient is under anesthesia,??using contrast and carbon dioxide to assess the veins of the liver, and then attempting to connect the??portal venous system with the hepatic venous system with the use??of the??needle, trocar system and subsequent stent placement.?? Based on??venography findings, he may require??embolization of varices as well.?? He may require??therapeutic paracentesis prior to the intervention, particularly if a??transhepatic approach is needed. ??Risks of the procedure??include but are not limited to bleeding, infection, damage to the liver and bile ducts,??damage to nearby and surrounding organs and structures,??hepatic encephalopathy, liver failure and .?? Benefits of the procedure would be lowering his risk for repeat life-threatening variceal hemorrhage??due to portal hypertension,??and possible??resolution??versus significant reduction??of ascites??and hepatic hydrothorax, reducing the need for serial interventions.?? Alternative to the procedure would nas not undergo TIPS creation.?? After a detailed discussion of the??risks, benefits and alternatives of TIPS creation, the patient would like to proceed as scheduled. ??He is agreeable to overnight admission??to hospital medicine following the procedure.?? Due to recent anemia, and need for updated lab work??(including to calculate MELD-Na score), we will obtain updated CBC, BMP, LFTs, coag paneland type and screen immediately upon arrival on the day of the intervention.?This will allow us to plan for possible pre-procedural transfusion if needed, and optimize the patient from??an anesthesia perspective as well??(at the discretion and expertise??of our anesthesia colleagues).?? All questions were answered to the patient's satisfaction. Telehealth Time of direct telehealth encounter/medical discussion:??16 minutes The patient was located in a home setting in the [facility] during this Phone electronic televisit, and gave consent to conduct the visit via telehealth. Provider was located in a [facility] office . Persons other than patient involved in televisit included: none Total Time Spent I personally spent a total of??52 minutes, including both [id number]-cycl and vct-qlhz-na-face time onthe date of the encounter, addressing the above diagnoses. Activities performed in this time include chart review, obtaining / reviewing history, performing amedically necessary evaluation, documentation and Counseling including medical decision making of High Complexity (40-54 minutes for established patient) Problem List/Past Medical History Ongoing Colon polyp Dry heaves Epigastric abdominal pain Hypertension Procedure/Surgical History No qualifying data available. Medications acamprosate 333 mg oral delayed release tablet, [...] Mouth, Daily furosemide 40 mg oral tablet, 40 mg= 1 tablet, By Mouth, 2 times a day hydrOXYzine pamoate 25 mg oral capsule, 25 mg= 1 capsule, By Mouth, 4 times a day, PRN LORazepam 0.5 mg oral tablet, 0.5 mg= 1 tablet, By Mouth, Daily, PRN omeprazole 40 mg oral enteric coated capsule, 40 mg= 1 capsule, By Mouth, Daily ondansetron 4 mg oral tablet, 4 mg= 1 tablet, By Mouth, Every 8 hours, PRN PARoxetine 20 mg oral tablet, 20 mg= [...] more than 30 days ago. Family History Mother: Bone cancer Mat. Grandmother: Cancer of colon; Liver cancer Lab Results Test Name Test Result Date/Time WBC 6.5 k/mm3 02/24/2024 07:00 EDT RBC 2.69 m/mm3 02/24/2024 07:00 EDT Hgb 7.2 Gm/dL 02/24/2024 07:00 EDT Hct 23.2 % 02/24/2024 07:00 EDT MCV 86.2 femtoliters 02/24/2024 07:00 EDT MCH 26.8 pg 02/24/2024 07:00 EDT MCHC 31.0 g/dL 02/24/2024 07:00 EDT Platelet Count 169 k/mm3 02/24/2024 07:00 EDT RDW-SD 60.2 femtoliters 02/24/2024 07:00 EDT MPV 8.6 femtoliters 02/24/2024 07:00 EDT Nucleated RBC (Automated) 0.0 #/100 WBC'S 02/24/2024 07:00 EDT Abs. NRBC 0.0 k/mm3 02/24/2024 07:00 EDT Sodium 136 mmol/L 02/24/2024 07:00 EDT Potassium 4.1 mmol/L 02/24/2024 07:00 EDT Chloride 103 mmol/L 02/24/2024 07:00 EDT Bicarbonate Level 21 mmol/L 02/24/2024 07:00 EDT Anion Gap 12 02/24/2024 07:00 EDT Glucose Level 132 mg/dL 02/24/2024 07:00 EDT BUN 10 mg/dL 02/24/2024 07:00 EDT Creatinine-Blood 0.83 mg/dL 02/24/2024 07:00 EDT Estimated GFR Creatinine 103 ML/MIN/1.73 M2 02/24/2024 07:00 EDT Calcium 8.0 mg/dL 02/24/2024 07:00 EDT Protein, Total 5.7 Gm/dL 02/24/2024 07:00 EDT Albumin 2.7 Gm/dL 02/24/2024 07:00 EDT AG Ratio 0.9 02/24/2024 07:00 EDT Alkaline Phosphatase 187 units/L 02/24/2024 07:00 EDT AST (SGOT) 29 units/L 02/24/2024 07:00 EDT ALT (SGPT) 8 units/L 02/24/2024 07:00 EDT Bilirubin, Total 2.4 mg/dL 02/24/2024 07:00 EDT Images (02/23/2024 19:[address] Abd/Pelvis W/ IV Contrast Only) IMPRESSION:? 1. ?? Stigmata of cirrhosis and portal hypertension with moderate to large ascites noted, new finding since 2020. Mima hepatis adenopathy again noted. Evidence of portosystemic collateral vessels including in a small type I hiatal hernia and in the gastrohepatic ligament and splenic hilum as well as a small splenorenal shunt. 2. ??Portal veins are small within the liver. Hepatic veins are not well seen due to contrast timing. 3. ??Chronic lesion in the proximal RIGHT femur considered benign. 4. ??Small to moderate-sized umbilical hernia containing ascitic fluid in the anterior wall of the small bowel loop without associated obstruction..?? 5. ??No evidence of active hemorrhage. [1] [1]??CT Abd/Pelvis W/ IV Contrast Only; Marcelo Hall MD 02/23/2024 19:08 EDT Patient Care team information Care Team Personnel Name: German Plascencia RN Position: S RN Member Role: Primary Care Nurse Name: Ophelia Mcgowan Position: S RN Member Role: Primary Care Nurse Name: Mohini Dowd RN Position: [facility] RN Supv Member Role: Primary Care Nurse Name: Byron Rosales RN Position: S RN Member Role: Primary Care Nurse Name: Regi Bacon RN Position: S RN Member Role: Primary Care Nurse Name: Shanique Torrez RN Position: [facility] RN Supv Member Role: Primary Care Nurse Name: Martin Avilez MD Position: [facility] Physician - Primary Care Member Role: PCP Address: [address] [place] [address], [address] [facility] [address] Telecom: Name: Halima Zapata RN Position: [facility] RN Member Role: Primary Care Nurse Care Team Related Persons Name: ROSALBA NAIR Name: SINDHU WASHINGTON Insurance Providers Guarantor name: DIAZ HER Health Plan Information #: 1 Payer: [facility] [employer] Member Number: [id number] Policy Number: NA Group Number: [facility] Health Plan Information #: 2 Payer: NA Member Number: [id number] Policy Number: NA Group Number: NA
--- OUTSIDE RECORDS SUMMARY | 2024-05-20 07:58 | XMS_ITS | Continuity of Care Document ---
Author Organization [facility] ter Address [address] [place] [id number] Care Team Providers Care Floatlight Loading Supervisor Name Role Phone Raghav BURDEN, Martin Quintanilla Primary Care Physician [phone] Encounter [facility] Date(s): 05/14/24 - 05/15/[address] [id number] Discharge Disposition: A-D/C AMA Attending Physician: Nemesio Early MD Admitting Physician: Jeff Buchanan MD Referring Physician: Jeff Buchanan MD Encounter Type: Disch IP Allergies, Adverse Reactions, Alerts No Known Allergies Immunizations Given and Recorded Vaccine Date Status Refusal Reason SARS-CoV-2 (COVID-19) Ad26 vaccine 12/07/20 Given Medications acamprosate 333 mg oral delayed release tablet 2 tablet = 666 mg, By Mouth, 3 times a day, # 180 tablet, 2 Refills, Maintenance, 05/15/24 4:35:00 PM EST, Tablet, [facility], Partial fill upon patient request [...] ANEMIA, AND TALK TO YOUR 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 / 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, # 60 tablet, 0 [...] Refills, Maintenance, 05/15/24 4:43:00 PM EST, Tablet, [facility] 3, Partial fill upon patient request if [...] :51:00 PM EST, Route to Pharmacy Electronically, [facility], Partial fill upon patient request if [...] gastropathy Confirmed Active Dry heaves Confirmed Active Results Radiology Reports * Exam Date Time Procedure Performing Provider Status 05/15/24 9:21 AM IR End of Case Report Au th (Verified) IR End of Case Report * Exam Date Time Procedure Performing Provider Status 05/15/24 9:21 AM IR Insertion of TIPSS Au th (Verified) Notes: (IR Insertion of TIPSS) Reason For Exam: Other: IR Insertion of TIPSS Patient: DIAZ HER Study Date: 05/15/2024 Performing: Jeff Buchanan MD Referring: : 1965 Age: 58 Gender: MALE Pre-procedure diagnosis and Indication: 57 yo patient with alcohol-related cirrhosis, bleeding esophageal varices s/p prior bandings (most recently banding x4 in January 2024), recurrent ascites currently requiring large volume paracentesis every two weeks, prior hepatic hydrothorax (last thoracentesis over one year prior per patient), anemia requiring blood transfusions, HTN, diabetes, prior PE (previously on Eliquis, last taken 04/16/24), GERD, gout, prior tubular adenoma of the colon s/p right hemicolectomy who presented for planned for TIPS creation under General Anesthesia on Sunday05/14/24. Upon presentation, patient with Hgb 6.3 (compared to prior Hgbs in the 7s) and abdominal distension and discomfort now s/p 10 L paracentesis and 1 u pRBC transfusion on 05/14. Hgb improved to 7s s/p transfusion. Patient now returns on 05/15 morning as planned for TIPS creation attempt with Anesthesia following optimization. Exam: Prior to the procedure, the patient was seen and the nature of the procedure explained along with its attendant risks and benefits to the patient. Informed consent was obtained from, the patient. The patient underwent a pre-anesthesia assessment. On completion of this it was determined the patient is appropriate for the planned procedure. The patient arrived in IR room 2 for attempted New TIPS placement, paracentesis. PROCEDURE: The patient was positioned supine and secured with arm boards. Sedation and monitoring by Anesthesia, see Anesthesia record. Empiric antibiotic (Ceftriaxone 1 gm IV) was administered. Initial ultrasound demonstrated patent and compressible right internal jugular vein. After administering local analgesia, access to the right IJ vein was obtained using micropuncture technique under ultrasound and fluoroscopic guidance, a 7 Mosotho sheath was placed. A 5 Mosotho 65 cm angled catheter was advanced over a 0.035 inch angled Glidewire, and attempts were made to select the right hepatic vein without success. A 5 Mosotho C2 catheter was then advanced over a 0.035 inch angled Glidewire, and the right hepatic vein was selected. The catheter tip was advanced to the periphery of the right hepatic lobe under fluoroscopic guidance over the angled Glidewire. Wedged position of the catheter within the right hepatic lobe parenchyma was confirmed with hand-injection of contrast. CO2 wedged portography was then performed, which demonstrated significantly diminutive right and left portal vein branches, and small caliber and short segment length of a patent main portal vein. Suitable landmarks were marked based on the portogram and the C2 catheter was exchanged [facility] a [facility] TIPS kit over a 0.035 inch Amplatz guidewire. Several passes were made using the access needle from the kit, directed anteriorly and medially towards the expected location of the right portal vein. These attempts were unsuccessful. The 10 Mosotho sheath from the TIPS kit retracted from the right hepatic vein into the IVC during access attempts. Access to the peripheral right hepatic lobe parenchyma was once again obtained with a diagnostic catheter advanced over a 0.035 inch angled Glidewire and repeat wedged portogram was performed with carbon dioxide, which once again demonstrated diminutive target right and left portal veins, and short segment and small caliber of the main portal vein. The diagnostic catheter was exchanged for the TIPS kit trocar once again over a 0.035 inch Amplatz guidewire, and repeat attempts at accessing the right portal vein were made with careful passes made with the access needle under fluoroscopic guidance. These attempts were also not successful, again due to the diminutive caliber of the target vessel and the patient's navajo anatomy. Access to a more craniad lateral right hepatic vein branch was obtained with the 5 Mosotho 65 cm angled catheter over a 0.035 inch angled Glidewire. The 10 Mosotho sheath was advanced into this vessel. Given unsuccessful attempts at transjugular access, sterile prep and drape of the patient's right upper abdomen was then performed, with decision made to attempt percutaneous access of the portal vein to assist with target for transjugular access versus attempting transportal variceal embolization. The patient had moderate volume ascites despite large volume ascites performed for 10 L drained 1 day prior. After administering local analgesia, a 5 Mosotho Yueh needle was advanced via the right lateral abdominal wall into the perihepatic ascites under continuous ultrasound guidance. Once needle position within the target fluid was confirmed, an image was stored. The catheter was advanced off the needle, and the needle was removed. The catheter was connected to suction assisted drainage, with a total of 6.25 L of serous yellow ascites removed. Once drainage ceased, the catheter was removed and hemostasis at the skin was obtained with gentle manual compression. The patient was given intravenous albumin replacement by the anesthesiology staff, please see their documentation for additional details. Once paracentesis had drained a significant majority of the ascitic fluid, a suitable access site into the central right portal vein was identified. After administering local analgesia, access into this vein was attempted with a 21-gauge needle under continuous ultrasound guidance. Once needle position within the vessel was confirmed, contrast injection was performed. Upon opacifying the portal system, a 0.018 inch introducer wire was advanced and the needle was removed. Due to the significantly nodular nature of the patient's liver, a GREG-NV access system could not be advanced. There was kinking of the wire, and the 0.018 inch wire had to be removed. Repeat access attempts were made. The biliary tree was incidentally opacified during the access attempt. Access to the right portal vein was once again obtained with a 21-gauge access needle. A 0.018 inch wire was successfully navigated towards the main portal vein under ultrasound and fluoroscopic guidance. Repeat attempts at advancing a 6 Mosotho introducer and 4 Mosotho introducer resulted in kinking of the access wire. Catheter then risk loss of access once again, the 0.018 inch wire was then used as a fluoroscopic marker to attempt repeat access attempts via transjugular access. We returned to the right neck access, where intermittent flushing of the angled catheter was being performed on a routine basis with sterile saline during the percutaneous transhepatic access attempts. Repeat attempts at advancing the [facility] open access system towards the target 0.018 inch percutaneously placed portal venous access was not successful. The angled catheter was again used to select a peripheral right hepatic vein branch over a 0.035 inch angled Glidewire, and the 10 Mosotho sheath was once again advanced to the peripheral/lateral right hepatic vein. We returned to the transhepatic portal venous access. After great difficulty and use of several different micropuncture and GREG-NV introducers and access wires, the 4 Mosotho introducer with a micropuncture kit was advanced over the microwire and into the right hepatic vein. This small catheter had a tortuous course owing to the patient's significantly firm cirrhotic liver. Catheter tip within the portal vein was confirmed with hand-injection of contrast, which opacified hepatopetal flow within the right portal venous vasculature. Attempts to advance a 0.035 inch stiffened angled Glidewire were not successful. A 0.035 inch angled Glidewire was then carefully navigated through the existing access and into the expected region of the inferior mesenteric vein under careful continuous fluoroscopic guidance. We then attempted to use various access catheters including regular micropuncture, stiffened micropuncture, dilators, GREG-NV access systems, angled catheters, to advance over the 0.035 inch angled Glidewire into the portal venous access. Due to the significantly firm cirrhotic nature of the patient's liver, none of these were able to be successfully advanced despite multiple efforts. I asked my colleague Dr. Padron for his assessment and input at this stage of the intervention. He recommended similar catheters and wires for access, which were not successful. He then scrubbed into the procedure to assist with securing the percutaneous transhepatic access into the portal venous system. Unfortunately, the access was lost when the tip of a 4 Mosotho introducer did not successfully sit within the right portal vein vasculature despite being readvanced over the Glidewire. This was confirmed with hand-injection of contrast. Dr. Padron then made access attempts with a 0.014 inch Transcend microwire wire and the existing access catheter, which were also not successful. At this stage of the intervention, we performed an assessment of the procedure programs. The diminutive portal venous anatomy, and significantly firm cirrhotic liver had precluded both transjugular and percutaneous access attempts despite use of multiple catheters, wires and techniques. Given time duration under anesthesia, fluoroscopy time and radiation dose without successful access at this stage, and given that the patient had remained hemodynamically stable throughout this elective intervention, and was not critically ill, we decided to conclude the procedure. A Gelfoam slurry was carefully administered via the 4 Mosotho introducer used for the percutaneous access attempt, and the introducer was removed. Hemostasis at the skin access site was obtained with gentle manual compression and application of liquid topical skin adhesive. The angled catheter was removed via the right neck access. Hand-injection of contrast was performed via the existing 10 Mosotho sheath positioned in the right hepatic vein. This confirmed patency of the access vein, without overt evidence of active extravasation within the cannulated vessel. The sheath was removed and hemostasis at the right neck access site was obtained with gentle manual compression. Liquid tissue adhesive was also applied at this access site. Dressings were applied at both right neck and right upper abdominal access sites, as well as the right lateral abdominal paracentesis access site. The patient was awoken from anesthesia and transferred to the PACU in stable condition. The sterile field was maintained throughout the procedure and patient tolerated the procedure well with no complications of the procedure. Estimated blood loss: <20 mL Specimens/samples: no specimens or samples were sent for this procedure [facility] 1. Carbon dioxide wedge portogram demonstrated patent, however significantly diminutive right and left portal veins. The main portal vein was patent, however also diminutive in caliber and length. Unsuccessful attempt at TIPS creation via transjugular access. 2. Percutaneous access into the portal venous system was successfully obtained via a transhepatic access in the right upper abdomen, however we were unable to proceed further with the intervention due to intensely fibrotic/firm cirrhotic liver parenchyma precluding advancement of multiple different access catheters and wires. 3. Given unsuccessful attempts at transjugular and transhepatic intervention due to aforementioned factors despite multiple steps and techniques utilized, and in light of procedure length, fluoroscopy time and radiation dose, we decided to conclude this elective intervention without TIPS creation. The patient remained hemodynamically stable throughout the procedure. 4. Ultrasound-guided paracentesis via the right lateral abdomen, with 6.25 L of serous yellow ascites removed. 5. Due to the patient's navajo anatomy, including diminutive portal venous vasculature, and firm cirrhotic liver, repeat elective TIPS attempt would be of low yield. Due to nature and distribution of variceal disease, he would also not be a suitable candidate for BRTO attempt. Therefore there are limited IR options available for optimizing his liver disease at this time. Recommend continued therapeutic paracentesis and/or thoracentesis as needed. Recommend continued close follow-up with GI (follows with Dr. Graham at [facility], to whom I will send a copy of this note). Recommend cessation of active alcohol consumption as best possible. 6. Tentative plan was for continued patient stay for overnight hemodynamic monitoring and pain control, as discussed with and agreed by the patient prior to the intervention. Unfortunately, following the intervention and uneventful recovery in the postanesthesia care unit, the patient elected to leave against medical advice despite detailed discussion with primary team attending Dr. Early. Fluoroscopy time and dose Total Fluoro Time: 45.4 mins Total dose 958 mGy Total DAP 61447.22 - ?Gy/m2 Contrast used Contrast used: IsoVue_300 130 Local Anesthetic Lidocaine 1% 10 ml's SQ Lidocaine 1% 2 ml's SQ abdomen Anesthesia care Sedation and monitoring by Anesthesia, see Anesthesia record Signed By Jeff Buchanan MD On 05/15/2024 9:13:40 PM Jeff Buchanan MD Dictated By: Jeff Buchanan MD Dictated Date/Time: 05/15/24 9:21 am Reviewed By: Jeff Buchanan MD Signed By: Jeff Buchanan MD Signed Date/Time: 05/15/24 9:21 am Transcribed By: ARVIN Transcribed Date/Time: 05/15/24 9:21 am * Exam Date Time Procedure Performing Provider Status 05/14/24 2:54 PM IR End of Case Report Au th (Verified) IR End of Case Report * Exam Date Time Procedure Performing Provider Status 05/14/24 2:54 PM IR Drainage/Tube Change Auth (Verified) Notes: (IR Drainage/Tube Change) Reason For Exam: Paracentesis;Other: IR Drainage/Tube Change Patient: DIAZ HER Study Date: 05/14/2024 Performing: Jeff Buchanan MD Referring: : 1965 Age: 58 Gender: MALE Pre-procedure diagnosis and Indication: 57 yo patient with alcohol-related cirrhosis, bleeding esophageal varices s/p prior bandings (most recently banding x4 in January 2024), recurrent ascites currently requiring large volume paracentesis every two weeks, prior hepatic hydrothorax (last thoracentesis over one year prior per patient), anemia requiring blood transfusions, HTN, diabetes, prior PE (previously on Eliquis, last taken 04/16/24), GERD, gout, prior tubular adenoma of the colon s/p right hemicolectomy now planned for TIPS creation under General Anesthesia on Sunday05/14/24. Upon presentation, patient with Hgb 6.3 (compared to prior Hgbs in the 7s) and abdominal distension and discomfort. Last paracentesis approximately 1 week prior per patient report for approximately 10L drained at OSH. Anesthesia recommends paracentesis today followed by blood transfusion for medical optimization, and rescheduling TIPS to tomorrow morning. Exam: Prior to the procedure, the patient was seen and the nature of the procedure explained along with its attendant risks and benefits to the patient. Informed consent was obtained from, the patient. The patient underwent a pre-procedure assessment. On completion of this it was determined the patient requires therapeutic large volume paracentesis followed by blood transfusion to be medically optimized for TIPS creation. The patient arrived in IR room 2 for a paracentesis. PROCEDURE: The patient was positioned semi kelly in bed or stretcher and secured with the left side rails up. The access site was evaluated, then prepped with chloraprep and draped in the usual sterile fashion. Targeted ultrasound of the right lateral abdomen demonstrated large volume ascites. After measuring local analgesia, a 5 Mosotho Yueh needle was advanced into the ascitic fluid under continuous ultrasound guidance. Once needle tip positioned within the ascitic fluid was confirmed, a permanent image was stored. The catheter was advanced off the needle, and the needle was removed. A specimen was obtained for cell count and culture. The catheter was then connected to suction assisted drainage, with a total of 10 L of serous yellow fluid removed. Repeat ultrasound demonstrated small residual abdominal ascites compared to prior. Removed and hemostasis at the skin was obtained with gentle manual compression. A dressing was applied. The sterile field was maintained throughout the procedure and patient tolerated the procedure well with no complications of the procedure. estimated blood loss was minimal Specimens/samples: Serous yellow ascites Patient transferred to [address] Impression: Diagnostic and therapeutic paracentesis performed via the right lateral abdominal wall, with 10 L of serous yellow ascitic fluid removed. Specimen submitted for Gram stain and culture. Patient will return to [address], plan for admission to medicine service, transfusion of PRBCs as part of medical optimization for TIPS, which is tentatively scheduled for tomorrow morning 05/15/2024. Fluid drained: 67864 ml's of dark yellow fluid Fluoroscopy time and dose Total Fluoro Time: 0 mins Total dose 0 mGy Total DAP 0 - ?Gy/m2 No contrast was used for this procedure Local Anesthetic Lidocaine 1% 10 ml's SQ Signed By Jeff Buchanan MD On 05/14/2024 4:46:34 PM Jeff Buchanan MD Dictated By: Jeff Buchanan MD Dictated Date/Time: 05/14/24 2:54 pm Reviewed By: Jeff Buchanan MD Signed By: Jeff Buchanan MD Signed Date/Time: 05/14/24 2:54 pm Transcribed By: ARVIN Transcribed Date/Time: 05/14/24 2:54 pm Vital Signs Most recent to oldest [Reference Range]: 1 2 3 Height 199 cm (05/15/24 3:42 PM) 199 cm (05/15/24 7:11 AM) 199 cm (05/15/24 3:17 AM) Weight 120.5 kg (05/14/24 12:05 PM) Oxygen Saturation [94-100 %] 98 % (05/15/24 3:42 PM) 94 % (05/15/24 2:30 PM) 90 % *L* (05/15/24 2:18 PM) Pulse Rate [55-90 bpm] 94 bpm *H* (05/15/24 3:42 PM) 82 bpm (05/15/24 7:11 AM) 85 bpm (05/15/24 3:17 AM) Blood Pressure [90-138/55-84 mm Hg] 136/78mm Hg (05/15/24 3:42 PM) 136/88mm Hg (05/15/24 2:30 PM) 116/82mm Hg (05/15/24 2:15 PM) Respiratory Rate [16-30 br/min] 19 br/min (05/15/24 3:42 PM) 21 br/min (05/15/24 2:35 PM) 18 br/min (05/15/24 2:18 PM) Temperature [96.8-100.4 DegF] 98.0 DegF (05/15/24 3:42 PM) 98.2 DegF (05/15/24 2:30 PM) 97.8 DegF (05/15/24 2:00 PM) Liters per Minute 2 L/min (05/15/24 2:30 PM) Mode of Delivery (Oxygen) Room air (05/15/24 3:42 PM) Nasal cannula (05/15/24 2:30 PM) Room air (05/15/24 2:00 PM) Blood pressure sites Arm, right (05/15/24 3:42 PM) Arm, right (05/15/24 2:00 PM) Arm, right (05/15/24 7:11 AM) Temperature Route Oral (05/15/24 3:42 PM) Temporal (05/15/24 2:30 PM) Temporal (05/15/24 2:00 PM) Dry Weight 120.5 kg (05/14/24 12:05 PM) Social History Social History Type Response Smoking Status Former smoker, quit more than 30 days ago entered on: 03/19/23 Sex Sex Representation Male (finding) History and physical note * Karthikeyan Cisneros DO: MODIFY, MODIFY, MODIFY, MODIFY, PERFORM Event Display: History and Physical Hospital Authored Date: [id number] Patient: ??DIAZ HER ? Age:??58 Years?Sex:??Male?:??1965?? Chief Complaint/Reason for Consultation Presented for TIPS procedure but noted to be anemic and had abdominal distention History of Present Illness This is a 58-year-old male with past medical history including alcoholic related cirrhosis, bleeding esophageal varices status post prior banding's (most recently banding x 4 in January 2024), recurrent ascites with requiring large- volume paracentesis every 2 weeks, prior hepatic hydrothorax, anemiarequiring blood transfusions, hypertension, diabetes, history of PE previously on Eliquis but stopped over 2023, GERD, gout, prior tubular adenoma of the colon status post right hemicolectomy, who presented to the hospital for TIPS creation under general anesthesia.?? The patient was noted to have a low hemoglobin of 6.3 with abdominal distention and discomfort, so his TIPS procedure was not done.?? He underwent paracentesis followed by blood transfusion for medical optimization, and TIPS procedure is being rescheduled to tomorrow.?? The patient did undergo 10 L paracentesis with serous yellow ascitic fluid removed.?? He has been ordered transfusion of 2 units packed red blood cells aswell.?? He is now admitted for further monitoring.?? Of note, patient??states that his??pain has been??on hold??for approximately the last 2 weeks. Review of Systems A complete review of systems was obtained and noted to be negative except as stated above in the HPI. Objective Measurements?? Height: 199 cm (05/14/24) Weight: 120.5 kg (05/14/24) Dry Weight: 120.5 kg (05/14/24) ? Vital Signs?? Temperature: 98.7 DegF (05/14/24 16:49:00) Temperature Route: Oral (05/14/24 16:49:00) Pulse Rate:??93 bpm??High (05/14/24 16:49:00) Respiratory Rate: 20 br/min (05/14/24 16:49:00) Systolic Blood Pressure: 114 mm Hg (05/14/24 16:49:00) Diastolic Blood Pressure: 72 mm Hg (05/14/24 16:49:00) Blood pressure sites: Arm, left (05/14/24 16:49:00) Mean Arterial Pressure: 86 mm Hg (05/14/24 16:49:00) Pulse Pressure: 42 mm Hg (05/14/24 16:49:00) Oxygen Saturation: 100 % (05/14/24 16:49:00) Mode of Delivery (Oxygen): Room air (05/14/24 16:49:00) Early Warning Score: 4 (05/14/24 17:00:42) ? Physical Exam General: Alert, in no acute cardiopulmonary distress. Mental Status: Oriented to person, place and time. Normal affect. Head: Normocephalic. Eyes: Pupils are equal, round and reactive to light. Extraocular muscles intact. Ear, Nose and Throat: Oropharynx clear, mucous membranes moist. Ears and nose without masses, lesions or deformities. Trachea midline. Neck: Supple, Full range of motion. Respiratory: Clear to auscultation and percussion. No wheezing, rales or rhonchi. Cardiovascular: Heart sounds normal. Regular rate and rhythm, no murmurs, rubs or gallops. Gastrointestinal: Abdomen soft, non-tender, non-distended. Normal bowel sounds. No pulsatile mass. No hepatosplenomegaly. Neurologic: Cranial nerves II-XII grossly intact. No focal neurological deficits. Moves all extremities spontaneously. Sensation intact bilaterally. Skin: No rashes or lesions. No petechiae or purpura. No edema. Musculoskeletal: No cyanosis or clubbing. No gross deformities. Normal range of motion. Assessment/Plan Assessment:??This is a 58-year-old male with past medical history??as noted above,??who presented to the hospital for TIPS procedure.??He was noted??prior to the procedure though to have abdominal distention??and lab work showing anemia,??so his procedure has tentatively been rescheduled??till tomorrow.??He did undergo??paracentesis in the ED with 10 L of??fluid drained from his abdomen.??In addition, he has been ordered transfusion of 2 units??packed red blood cells. ?? Abdominal distention (R14.0) Ascites (R18.8) ? This patient will be admitted to an inpatient??medical bed.??He presented??for??TIPS procedure but was noted to??have abdominal distention??as well as anemia.??He is status post??drainage of 10??L of ascitic fluid.??Cell count and differential were obtained on the fluid and show 86 WBCs with 22% segs.??Gram stain and culture are still pending. ?? Anemia (D64.9) Patient was noted to be anemic and has been ordered transfusion of 2 units packed red blood cells.?He does have a microcytic anemia.??We will add on some iron studies for further assessment.?? He also describes??recent dark stool for the last couple days, though he states that??his stool has been??black and tarry appearing in the past, which currently is not. ?? Hypertension, portal (K76.6) Cirrhosis of liver (K74.60) Alcohol use disorder (F10.90) ? We will maintain this patient on thiamine and folate supplements, as well as multivitamin.??No concern for acute active alcohol withdrawal presently. ?? Anxiety with depression (F41.8) Patient on paroxetine which we will continue. ?? VTE Prophylaxis Given patient's anemia??and history of??esophageal varices with bleed,??we will avoid pharmacological DVT prophylaxis presently and just use pneumoboots and encourage early mobilization.?? Of note, patient??on apixaban??due to history of pulmonary embolism, but he??states that he has been holding??for about 2 weeks??(instructions prior to TIPS were??to only hold for??2 days before procedure).?? Following his TIPS procedure,??will need to determine??when his anticoagulation can be resumed. ?? Code Status Patient in the past??has been??DNR but okay for intubation.?? Presently, the patient states??that he wishes to be a full resuscitation.?? This will be ordered accordingly. ?? Patient seen on May 14, 2024.?? Total time spent with patient and in coordination of care: including reviewing the chart/medical records, speaking with the patient, formulating and discussing the treatment plan, and documenting the findings and encounter:?50 + min ? Histories Allergies Allergies ?(Active and Proposed Allergies Only) NKA? (Severity: Unknown severity, Onset: Unknown) ? Past Medical History/Problem List Active Problems(10) Alcoholic cirrhosis Colon polyp Depression Dry heaves Epigastric abdominal pain Esophageal varices GERD (gastroesophageal reflux disease) Hyperlipidemia Hypertension Portal hypertensive gastropathy Pulmonary embolism ? Past Surgical History I&D right knee x 2 Cervical spine surgery Terminal ileum resection and right hemicolectomy ? Social History Patient lives with his roommate Alcohol Details:??Use: Current. ??Frequency: Daily. ??Type: Liquor. ??Other: drinks 5 drinks per day. Tobacco Details:??Use: Former smoker, 1 pack a day from age 20 to age 53.?? Patient will occasionally vape??presently. Drug use Patient denies ?? Family Medical History Mother at 72 with bone cancer.?? Father but his history is unknown. Medications Home Medications??(Confirmed with the patient) Albuterol (albuterol CFC free 90 mcg/inh inhalation aerosol)?1?puff(s)?Inhalation?4 times a day?as needed?as needed for wheezing apixaban (apixaban 2.5 mg oral tablet)?1?tab(s)?2.5?Milligram?By Mouth?2 times a daypatient states that he has not been taking this for about 2 weeks;??he states that he was told to stop this??due to bleeding BuPROpion (buPROPion 300 mg/24 hours (XL) oral tablet, extended release)?1?tab(s)?300?Milligram?By Mouth?Daily Carvedilol (carvedilol 6.25 mg oral tablet)?6.25?Milligram?1?tablet?By Mouth?2 times a day Folic Acid (folic acid 1 mg oral tablet)?1?Milligram?1?tablet?By Mouth?Daily Furosemide (furosemide 40 mg oral tablet)?80?Milligram?2?tablet?By Mouth?Daily?40?1?2 times a day?9am and 1 pm HydrOXYzine (hydrOXYzine pamoate 25 mg oral capsule)?1?capsule?25?Milligram?By Mouth?4 times a day?as needed?for itching Lorazepam (LORazepam 0.5 mg oral tablet)?1?tab(s)?0.5?Milligram?By Mouth?Daily at bedtime?Daily?as needed?as needed for anxiety Omeprazole (omeprazole 40 mg oral enteric coated capsule)?1?capsule?40?Milligram?By Mouth?Daily Ondansetron (ondansetron 4 mg oral tablet)?1?tab(s)?4?Milligram?By Mouth?Every 8 hours?Nausea & Vomiting Paroxetine (PARoxetine 20 mg oral tablet)?20?Milligram?1?tablet?By Mouth?Dailypatient unsure if he is taking but??was filled??multiple times, most recently in March 2024 Rifaximin (rifAXIMin 550 mg oral tablet)?1?tab(s)?550?Milligram?By Mouth?2 times a day Spironolactone (spironolactone 100 mg oral tablet)?200?Milligram?2?tablet?By Mouth?Daily Thiamine (thiamine 100 mg oral tablet)?100?Milligram?1?tablet?By Mouth?Daily?for 7?Days ? Results Recent Labs BLOOD BANK Blood Type A Positive ()?? 05/14/2024 11:37 Antibody Screen Negative ()?? 05/14/2024 11:37 RBC Unit ID [id number] ()?? 05/14/2024 15:03 RBC Available IS ()?? 05/14/2024 15:03 ?? BLOOD COUNT & DIFF WBC 3.6 k/mm3 (Low)?? 05/14/2024 11:41 RBC 3.02 m/mm3 (Low)?? 05/14/2024 11:41 Hgb 6.3 Gm/dL (Critical)?? 05/14/2024 11:41 Hct 21.9 % (Low)?? 05/14/2024 11:41 MCV 72.5 femtoliters (Low)?? 05/14/2024 11:41 MCH 20.9 pg (Low)?? 05/14/2024 11:41 MCHC 28.8 Gm/dL (Low)?? 05/14/2024 11:41 Platelet Count 196 k/mm3 ()?? 05/14/2024 11:41 RDW-SD 60.1 femtoliters (High)?? 05/14/2024 11:41 MPV 9.0 femtoliters (Low)?? 05/14/2024 11:41 Nucleated RBC (Automated) 0.0 #/100 WBC'S ()?? 05/14/2024 11:41 Abs. NRBC 0.0 k/mm3 ()?? 05/14/2024 11:41 ?? CHEM GENERAL Sodium 135 mmol/L ()?? 05/14/2024 11:41 Potassium 4.0 mmol/L ()?? 05/14/2024 11:41 Chloride 104 mmol/L ()?? 05/14/2024 11:41 Bicarbonate Level 22 mmol/L ()?? 05/14/2024 11:41 Anion Gap 9 ()?? 05/14/2024 11:41 Glucose, POC 97 mg/dL ()?? 05/14/2024 16:59 BUN 8 mg/dL ()?? 05/14/2024 11:41 Creatinine-Blood 0.72 mg/dL ()?? 05/14/2024 11:41 Estimated GFR Creatinine 107 ML/MIN/1.73 M2 ()?? 05/14/2024 11:41 Albumin 2.9 Gm/dL (Low)?? 05/14/2024 11:41 Alkaline Phosphatase 219 units/L (High)?? 05/14/2024 11:41 AST (SGOT) 27 units/L ()?? 05/14/2024 11:41 ALT (SGPT) 9 units/L ()?? 05/14/2024 11:41 Bilirubin, Total 1.6 mg/dL (High)?? 05/14/2024 11:41 ?? COAG INR 1.3 (High)?? 05/14/2024 11:41 Protime (PT) 13.2 seconds (High)?? 05/14/2024 11:41 APTT 26.6 seconds ()?? 05/14/2024 11:41 ?? FLUID STUDIES Color, Fluid YELLOW ()?? 05/14/2024 15:09 Appearance, Fluid CLEAR ()?? 05/14/2024 15:09 WBC, Fluid 86 per Cubic Millimeter ()?? 05/14/2024 15:09 RBC, Fluid <3000 per Cubic Millimeter ()?? 05/14/2024 15:09 Seg, Fluid 22 % ()?? 05/14/2024 15:09 Lymph, Fluid 63 % ()?? 05/14/2024 15:09 [place], Fluid 9 % ()?? 05/14/2024 15:09 Other, Fluid 6 % ()?? 05/14/2024 15:09 ?? MISC. CHEMISTRY Ammonia, Venous 43 ??mole/L ()?? 05/14/2024 12:29 ?? URINE OTHER Est Creatinine Clearance 149.39 mL/min ()?? 05/14/2024 12:52 ? Hospital Progress note * Patrick Mays RN: PERFORM, SIGN, VERIFY Event Display: Progress Note Hospital Authored Date: [id number] Patient: DIAZ HER Age: 58 years Sex: Male : 1965 Associated Diagnoses: None Author: Patrick Mays RN Patient demanded to leave AMA, attempted to educate patient about benefits of staying, patient refused and signed AMA form. * Halima Zapata RN: VERIFY, PERFORM, SIGN Event Display: Progress Note Hospital Authored Date: [id number] Patient: DIAZ HER Age: 58 years Sex: Male : 1965 Associated Diagnoses: None Author: Halima Zapata RN Findings Narrative/Incidental First unit RBC's infusing. VSS. No S/S transfusion reaction. Ambulating on unit to bathroom. Steadygait. Dressing intact to RL abd intact with small amount of staining. Patient denies any pain.. * Halima Zapata RN: PERFORM, SIGN, VERIFY Event Display: Progress Note Hospital Authored Date: [id number] Patient: DIAZ HER Age: 58 years Sex: Male : 1965 Associated Diagnoses: None Author: Halima Zapata RN Findings Narrative/Incidental Patient returned from IR. Dressing intact to RL abd. Llight staining observed on dressing. Denies pain.. Note * Sharath BURDEN, Nemesio Quintanilla: PERFORM Event Display: Discharge/Transfer Note Hospital Authored Date: [id number] Patient: ??DIAZ HER ? Age:??58 Years?Sex:??Male?:??1965?? Patient Information Discharge Location: [facility] Primary Care Physician: Martin Avilez MD Admit Date/Time: 05/14/2024 11:37 Discharge Disposition Discharge Disposition: ?? Discharge Diagnosis ?? Decompensated liver disease,??with ascites, status post failed TI PS Anemia???acute on chronic Abdominal distention (R14.0) Anemia (D64.9) Ascites (R18.8) Hypertension, portal (K76.6) Cirrhosis of liver (K74.60) Alcohol use disorder (F10.90) Anxiety with depression (F41.8) _ Discharge Medications Acamprosate (acamprosate 333 mg oral delayed release tablet)?2?tab(s)?666?Milligram?By Mouth?3 times a day Albuterol (albuterol CFC free 90 mcg/inh inhalation aerosol)?1?puff(s)?Inhalation?4 times a day?as needed?as needed for wheezing apixaban (apixaban 2.5 mg oral tablet)?1?tab(s)?2.5?Milligram?By Mouth?2 times a day?HOLD FOR NEXT 3 DAYS, UNTIL 05/18/24, ??GET BLOOD IN 3 DAYS, FOR ANEMIA, AND TALK TO YOUR PCP/ 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 BuPROpion (buPROPion 300 mg/24 hours (XL) oral tablet, extended release)?1?tab(s)?300?Milligram?By Mouth?Daily Carvedilol (carvedilol 6.25 mg oral tablet)?6.25?Milligram?1?tablet?By Mouth?2 times a day Ferrous Sulfate (ferrous sulfate 325 mg oral tablet)?1?tab(s)?325?Milligram?By Mouth?Daily Folic Acid (folic acid 1 mg oral tablet)?1?Milligram?1?tablet?By Mouth?Daily Furosemide (furosemide 40 mg oral tablet)?80?Milligram?2?tablet?By Mouth?Daily?40?1?2 times a day?9am and 1 pm HydrOXYzine (hydrOXYzine pamoate 25 mg oral capsule)?1?capsule?25?Milligram?By Mouth?4 times a day?as needed?for itching Lorazepam (LORazepam 0.5 mg oral tablet)?1?tab(s)?0.5?Milligram?By Mouth?Daily at bedtime?Daily?as needed?as needed for anxiety Omeprazole (omeprazole 40 mg oral enteric coated capsule)?1?capsule?40?Milligram?By Mouth?Daily Ondansetron (ondansetron 4 mg oral tablet)?1?tab(s)?4?Milligram?By Mouth?Every 8 hours?Nausea & Vomiting Paroxetine (PARoxetine 20 mg oral tablet)?20?Milligram?1?tablet?By Mouth?Daily Rifaximin (rifAXIMin 550 mg oral tablet)?1?tab(s)?550?Milligram?By Mouth?2 times a day Spironolactone (spironolactone 100 mg oral tablet)?200?Milligram?2?tablet?By Mouth?Daily Thiamine (thiamine 100 mg oral tablet)?100?Milligram?1?tablet?By Mouth?Daily?for 7?Days ? Hospital Course ?? This is a 58-year-old male with past medical history??as noted above,??who presented to the hospital for TIPS procedure.??He was noted??prior to the procedure though to have abdominal distention??andlab work showing anemia,??so his procedure has tentatively been rescheduled??till tomorrow.??He did undergo??paracentesis in the ED with 10 L of??fluid drained from his abdomen.??In addition, he has been ordered transfusion of 2 units??packed red blood cells. ?? Cirrhosis of liver with ascites [K74.60)???refractory ascites Ascites (R18.8) Hypertension, portal (K76.6) Cirrhosis of liver (K74.60) Alcohol use disorder (F10.90) History of esophageal variceal bleed status post ligation/banding ???Presented for TIPS procedure??with IR/Dr. Buchanan.?? TIPS was indicated due to refractory ascites,needing frequent paracentesis,??he has also had significant variceal bleeding requiring ligation/banding.???On prior hospitalization in?01/2024, GI recommended IR evaluation for TIPS, was seen by IR and subsequently brought in for elective TIPS procedure. ??? Discussed with IR/Dr. Buchanan, TIPS creation was unsuccessful, he had very diminutive right and left portal veins, and unsuccessful transjugular attempts at TIPS creation.?? Percutaneous hepatic access was successful in accessing the portal vein, but had intensely fibrotic liver capsule, and TIPScreation was unsuccessful.? . ?Discussed monitoring overnight,??given that he had??anemia,??paracentesis initially with 10 L removal on 05/14 and another 6 L removal 05/15,??and was also given IV albumin.?? However patient was adamant about being discharged and would not stay in the hospital despite extensive discussion, and left AMA 05/15/2024 as stated below. ?For alcohol use disorder, counseled him extensively on cessation of alcohol, he states he still drinks about 3 drinks per week.?? In the past was a heavy alcohol??user.?? Have prescribed??gabapentin on discharge,??acamprosate and national shortage,??and??held off on naltrexone, given advanced cirrhosis??and liver disease ??? Continue thiamine and folate. ???She had no signs of alcohol withdrawal during his stay. Anemia (D64.9) ?he had denied melena or hematochezia??on admission ?However, on my discussion with patient today, 05/15, he states he has had??brown and??blackstool over the last 2 days. ???No??hematochezia, no hematemesis ?Hemoglobin was 6.3 ???3 on admission, and received 2 units PRBCs, with improvement of hemoglobin to 7.9 prior to TI PS ??? He had no overt bleeding in the hospital ??? He is on apixaban for history of PE early 2023, and follows with manual plate filler, Dr. Walter Alvarez ??? He has held his apixaban over the last 2 weeks, he states he holds it for a few days prior to repeat steroid and frequent paracentesis, and also had upcoming TIPS procedure ? Have asked him to hold apixaban for the next 3 days, get blood work with PCP for CBC in 3 days,to monitor hemoglobin, and then subsequently discussed with PCP and restart apixaban, if hemoglobinstable ?? ? Discussed monitoring hemodynamics and H&H today, however patient was adamant about not staying overnight and refused to be in the hospital further, despite extensive discussion about risk of bleeding and life-threatening bleeding.?? So he left AGAINST MEDICAL ADVICE, however I have givenscripts for gabapentin for alcohol cessation, as acamprosate is not available nationally due to shortage. ??? Also sent in iron pills ? We will maintain this patient on thiamine and folate supplements, as well as multivitamin.??No concern for acute active alcohol withdrawal presently. ?? Anxiety with depression (F41.8) Patient on paroxetine which we will continue. ? Code Status Full resuscitation. ?? Histories Allergies Allergies ?(Active and Proposed Allergies Only) NKA? (Severity: Unknown severity, Onset: Unknown) ? Past Medical History/Problem List Active Problems(10) Alcoholic cirrhosis Colon polyp Depression Dry heaves Epigastric abdominal pain Esophageal varices GERD (gastroesophageal reflux disease) Hyperlipidemia Hypertension Portal hypertensive gastropathy Pulmonary embolism ? Past Surgical History I&D right knee x 2 Cervical spine surgery Terminal ileum resection and right hemicolectomy ? Social History Patient lives with his roommate Alcohol Details:??Use: Current. ??Frequency: Daily. ??Type: Liquor. ??Other: drinks 5 drinks per day. Tobacco Details:??Use: Former smoker, 1 pack a day from age 20 to age 53.?? Patient will occasionally vape??presently. Drug use Patient denies ?? Family Medical History Mother at 72 with bone cancer.?? Father but his history is unknown. Medications Home Medications??(Confirmed with the patient) Albuterol (albuterol CFC free 90 mcg/inh inhalation aerosol)?1?puff(s)?Inhalation?4 times a day?as needed?as needed for wheezing apixaban (apixaban 2.5 mg oral tablet)?1?tab(s)?2.5?Milligram?By Mouth?2 times a daypatient states that he has not been taking this for about 2 weeks;??he states that he was told to stop this??due to bleeding BuPROpion (buPROPion 300 mg/24 hours (XL) oral tablet, extended release)?1?tab(s)?300?Milligram?By Mouth?Daily Carvedilol (carvedilol 6.25 mg oral tablet)?6.25?Milligram?1?tablet?By Mouth?2 times a day Folic Acid (folic acid 1 mg oral tablet)?1?Milligram?1?tablet?By Mouth?Daily Furosemide (furosemide 40 mg oral tablet)?80?Milligram?2?tablet?By Mouth?Daily?40?1?2 times a day?9am and 1 pm HydrOXYzine (hydrOXYzine pamoate 25 mg oral capsule)?1?capsule?25?Milligram?By Mouth?4 times a day?as needed?for itching Lorazepam (LORazepam 0.5 mg oral tablet)?1?tab(s)?0.5?Milligram?By Mouth?Daily at bedtime?Daily?as needed?as needed for anxiety Omeprazole (omeprazole 40 mg oral enteric coated capsule)?1?capsule?40?Milligram?By Mouth?Daily Ondansetron (ondansetron 4 mg oral tablet)?1?tab(s)?4?Milligram?By Mouth?Every 8 hours?Nausea & Vomiting Paroxetine (PARoxetine 20 mg oral tablet)?20?Milligram?1?tablet?By Mouth?Dailypatient unsure if he is taking but??was filled??multiple times, most recently in March 2024 Rifaximin (rifAXIMin 550 mg oral tablet)?1?tab(s)?550?Milligram?By Mouth?2 times a day Spironolactone (spironolactone 100 mg oral tablet)?200?Milligram?2?tablet?By Mouth?Daily Thiamine (thiamine 100 mg oral tablet)?100?Milligram?1?tablet?By Mouth?Daily?for 7?Days ? Results Recent Labs BLOOD BANK Blood Type A Positive ()?? 05/14/2024 11:37 Antibody Screen Negative ()?? 05/14/2024 11:37 RBC Unit ID [id number] ()?? 05/14/2024 15:03 RBC Available IS ()?? 05/14/2024 15:03 ?? BLOOD COUNT & DIFF WBC 3.6 k/mm3 (Low)?? 05/14/2024 11:41 RBC 3.02 m/mm3 (Low)?? 05/14/2024 11:41 Hgb 6.3 Gm/dL (Critical)?? 05/14/2024 11:41 Hct 21.9 % (Low)?? 05/14/2024 11:41 MCV 72.5 femtoliters (Low)?? 05/14/2024 11:41 MCH 20.9 pg (Low)?? 05/14/2024 11:41 MCHC 28.8 Gm/dL (Low)?? 05/14/2024 11:41 Platelet Count 196 k/mm3 ()?? 05/14/2024 11:41 RDW-SD 60.1 femtoliters (High)?? 05/14/2024 11:41 MPV 9.0 femtoliters (Low)?? 05/14/2024 11:41 Nucleated RBC (Automated) 0.0 #/100 WBC'S ()?? 05/14/2024 11:41 Abs. NRBC 0.0 k/mm3 ()?? 05/14/2024 11:41 ?? CHEM GENERAL Sodium 135 mmol/L ()?? 05/14/2024 11:41 Potassium 4.0 mmol/L ()?? 05/14/2024 11:41 Chloride 104 mmol/L ()?? 05/14/2024 11:41 Bicarbonate Level 22 mmol/L ()?? 05/14/2024 11:41 Anion Gap 9 ()?? 05/14/2024 11:41 Objective Assessment and Plan Discharge Planning:? Vital Signs?? Temperature: 98 DegF (05/15/24 15:42:00) Temperature Route: Oral (05/15/24 15:42:00) Pulse Rate:??94 bpm??High (05/15/24 15:42:00) Heart Rate Monitored:??92 bpm??High (05/15/24 14:35:32) Respiratory Rate: 19 br/min (05/15/24 15:42:00) Systolic Blood Pressure: 136 mm Hg (05/15/24 15:42:00) Diastolic Blood Pressure: 78 mm Hg (05/15/24 15:42:00) Blood pressure sites: Arm, right (05/15/24 15:42:00) Mean Arterial Pressure: 97 mm Hg (05/15/24 15:42:00) Pulse Pressure: 58 mm Hg (05/15/24 15:42:00) Oxygen Saturation: 98 % (05/15/24 15:42:00) Liters per Minute: 2 L/min (05/15/24 14:30:00) Mode of Delivery (Oxygen): Room air (05/15/24 15:42:00) Early Warning Score: 6 (05/15/24 15:56:15) ? . Physical Exam General: ??PERRLA, NAD, Moist mucus membranes Neck: Rt IJ catheter entry site c/d/i, ??No JVD, no carotid bruit CVS: Regular S1 S2, No M/R/G Resp: CTAB, no crepitations or wheezing Abdo: Soft, NT, distended, NABS, no organomegaly, no masses HIMS CLERK: AO x 3, No focal neurological deficits. Extremities: No edema, peripheral pulses palpable. Pending Results Add On Lab Order ordered on 05/15/2024 Add On Lab Order ordered on 05/15/2024 Add On Lab Order ordered on 05/15/2024 Body Fluid Smear Review ordered on 05/14/2024 IR Generic Order ordered on 05/15/2024 IR US Images ordered on 05/14/2024 RBCs on Hold ordered on 05/15/2024 Transfuse RBCs ordered on 05/14/2024 Follow-Up Appointments Added Follow Up ?Time Frame ?Comments Jannet Graham?1 to 2 weeks Nawaf Alvarez?5 to 7 days Martin Avilez?1 week Patient Instructions WE recommended monitoring your Hemoglobin and vital signs until tomorrow in hospital Please get blood work through PCP in 3 days, to check anemia, and then talk to PCP and Pulmonary and resume Apixaban if no drop in Hemoglobin and no bleeding in stool or black stool Please refrain from alcohol , as we discussed. Acamprosate and Iron pills have been sent to our pharmacy?? [facility] Results Discharge Labs BLOOD BANK Blood Type A Positive ()?? 05/14/2024 11:37 Antibody Screen Negative ()?? 05/14/2024 11:37 RBC Unit ID [id number] ()?? 05/15/2024 10:22 RBC Available XM ()?? 05/15/2024 10:22 ?? BLOOD COUNT & DIFF WBC 3.1 k/mm3 (Low)?? 05/15/2024 11:49 RBC 3.60 m/mm3 (Low)?? 05/15/2024 11:49 Hgb 7.9 Gm/dL (Low)?? 05/15/2024 11:49 Hct 26.4 % (Low)?? 05/15/2024 11:49 MCV 73.3 femtoliters (Low)?? 05/15/2024 11:49 MCH 21.9 pg (Low)?? 05/15/2024 11:49 MCHC 29.9 Gm/dL (Low)?? 05/15/2024 11:49 Platelet Count 193 k/mm3 ()?? 05/15/2024 11:49 RDW-SD 58.8 femtoliters (High)?? 05/15/2024 11:49 MPV 8.5 femtoliters (Low)?? 05/15/2024 11:49 Nucleated RBC (Automated) 0.0 #/100 WBC'S ()?? 05/15/2024 11:49 Abs. NRBC 0.0 k/mm3 ()?? 05/15/2024 11:49 ?? CHEM GENERAL Sodium 138 mmol/L ()?? 05/15/2024 02:59 Potassium 3.9 mmol/L ()?? 05/15/2024 02:59 Chloride 107 mmol/L ()?? 05/15/2024 02:59 Bicarbonate Level 21 mmol/L (Low)?? 05/15/2024 02:59 Anion Gap 10 ()?? 05/15/2024 02:59 Glucose, POC 153 mg/dL (High)?? 05/15/2024 15:49 BUN 7 mg/dL ()?? 05/15/2024 02:59 Creatinine-Blood 0.72 mg/dL ()?? 05/15/2024 02:59 Estimated GFR Creatinine 107 ML/MIN/1.73 M2 ()?? 05/15/2024 02:59 Protein, Total 5.9 Gm/dL (Low)?? 05/15/2024 02:59 Albumin 2.6 Gm/dL (Low)?? 05/15/2024 02:59 Alkaline Phosphatase 202 units/L (High)?? 05/15/2024 02:59 AST (SGOT) 21 units/L ()?? 05/15/2024 02:59 ALT (SGPT) 10 units/L ()?? 05/15/2024 02:59 Bilirubin, Total 2.9 mg/dL (High)?? 05/15/2024 02:59 Bilirubin, Direct 1.2 mg/dL (High)?? 05/15/2024 02:59 Bilirubin, Indirect 1.7 mg/dL (High)?? 05/15/2024 02:59 Vitamin B12 Level 734 pg/mL ()?? 05/15/2024 02:59 Iron Level 16 mcg/dL (Low)?? 05/14/2024 11:41 Iron Binding Capacity, Unsaturated 254 mcg/dL ()?? 05/14/2024 11:41 Iron Binding Capacity, Estimated Total 270 mcg/dL ()?? 05/14/2024 11:41 % Iron Saturation 6 % (Low)?? 05/14/2024 11:41 Ferritin Level 31 ng/mL ()?? 05/14/2024 11:41 ? COAG INR 1.3 (High)?? 05/15/2024 02:59 Protime (PT) 13.4 seconds (High)?? 05/15/2024 02:59 APTT 26.6 seconds ()?? 05/14/2024 11:41 ? FLUID STUDIES Color, Fluid YELLOW ()?? 05/14/2024 15:09 Appearance, Fluid CLEAR ()?? 05/14/2024 15:09 WBC, Fluid 86 per Cubic Millimeter ()?? 05/14/2024 15:09 RBC, Fluid <3000 per Cubic Millimeter ()?? 05/14/2024 15:09 Seg, Fluid 22 % ()?? 05/14/2024 15:09 Lymph, Fluid 63 % ()?? 05/14/2024 15:09 [place], Fluid 9 % ()?? 05/14/2024 15:09 Other, Fluid 6 % ()?? 05/14/2024 15:09 ?? HEME OTHER Hold Lavender Top SPECIMEN DISCARDED AFTER 24 HOURS. ()?? 05/14/2024 11:41 ? MISC. CHEMISTRY Ammonia, Venous 43 ??mole/L ()?? 05/14/2024 12:29 ? URINE OTHER Est Creatinine Clearance 149.39 mL/min ()?? 05/14/2024 12:52 ? _35minutes spent on discharge * Patrick Mays RN: PERFORM, MODIFY Event Display: Patient Education/Instruction Authored Date: Inpatient Adult Discharge Instructions. [place] [id number] Name: DIAZ HER : 1965?? Visit: 05/14/2024 11:37?? Current Date: 05/15/2024 16:49 ?? Account: [id number]?? Inpatient Adult Discharge Instructions We would like to thank you for allowing us to assist you with your healthcare needs. The following includes patient education materials and information regarding your injury/illness. Our entire staffstrives to provide an excellent experience for our patients and their families. PLEASE ENSURE YOU FOLLOW-UP PER THE INSTRUCTIONS BELOW! ?? YOUR OPINION IS IMPORTANT TO US! Please complete the survey you may receive by mail or email. Your feedback will be used to make improvements to the healthcare experiences of our patients and their families. Surveys are administered by [employer] ?? If further treatment with your primary care physician or another doctor is recommended, it is important for you to keep the appointment. Call your primary care physician or return to the Emergency Department immediately if your condition worsens, fails to improve, or new symptoms develop. If you need to find a doctor, you can call [facility] Link for a referral at [phone] or toll free at [phone]) or log in to [email or web address].. ?? [facility], in keeping with [facility] guidance, no longer requires face masks for staff, patientsor visitors in most situations. Similiar to time spent indoors at other locations, there is the chance that you were exposed to repiratory viruses during your time with us (such as flu or COVID-19). If you develop symptoms concerning for a viral respiratory infection, please seek testing (and treatment if indicated) from your medical provider or home test kit. ?? You can view and manage your care through the patient portal or by using a [facility] [place] of your choosing. [employer] is a website that allows you to securely view your medical information including your hospital discharge summary, office visit summaries, medications and follow-up visits. You can also request appointments, renew medications, and request access to your medical information using a [facility] [place] of your choosing, or just ask a question. You can enroll at [email or web address] or register during your next office visit. You have been discharged from [facility], Patient Care Unit: D3B??. If you have any questions regarding these instructions, including results of studies pending, afteryou leave, please call us and we will be happy to assist you 15/01. [facility] Your Care Team Attending Physician Nemesio Early MD?? Consulting Providers Nemesio Early MD?? Reason for Your Visit Presented for TIPS procedure but noted to be anemic and had abdominal distention?? Your Diagnosis Abdominal distention Anemia Ascites Alcohol use disorder Anxiety with depression Cirrhosis of liver Hypertension, portal Tests Performed Below is a partial list of the tests performed during your hospitalization. You may have had other tests and procedures not included in this list. Please discuss all test results with your provider. Albumin Level Alk Phos ALT Ammonia Venous AST Bilirubin Total BODY FLUID SMEAR REVIEW?-- Results Pending -- BUN CBC Cell Count and Differential Fluid Creatinine Electrolytes FERRITIN GLUCOSE POC HOLD LAVENDER TUBE INR IRON & TIBC LFT's Lytes PT (INR) PTT Type and Screen VITAMIN B12 IR Generic Order IR US Images?-- Results Pending -- ALT?? AST?? Add On Lab Order?? Albumin Level?? Alk Phos?? Ammonia Venous?? BUN?? Bilirubin Total?? Body Fluid Smear Review?? CBC?? Cell Count and Differential Fluid?? Creatinine?? Electrolytes (Lytes)?? Ferritin?? Glucose POC?? Hepatic Function Panel (LFT's)?? Hold Lavender Top Tube (HOLD LAVENDER TUBE)?? INR (PT (INR))?? IR Generic Order?? IR US Images?? Iron + Iron Binding Capacity (IRON & TIBC)?? PTT?? RBCs on Hold?? Transfuse RBCs?? Type and Screen?? Vitamin B12 Level (VITAMIN B12)?? Primary Care Provider Martin Avilez MD? Advance Directive Health Care Proxy on File Yes - Health Care Proxy Discharge Vitals Temperature: 98 DegF Height: 199 cm Pulse Rate:??94 bpm??High Weight: 120.5 kg Respiratory Rate: 19 br/min ?? Systolic Blood Pressure: 136 mm Hg ?? Diastolic Blood Pressure: 78 mm Hg ?? Oxygen Saturation: 98 % ?? Studies Pending All studies ordered during this hospital stay have been completed unless listed below. Please discuss all pending results with your provider listed above in these instructions. ?? Add On Lab Order?? Body Fluid Smear Review?? IR Generic Order?? IR US Images?? RBCs on Hold?? Transfuse RBCs?? What to do next Instructions From Your Doctor WE recommended monitoring your Hemoglobin and vital signs until tomorrow in hospital Please get blood work through PCP in 3 days, to check anemia, and then talk to PCP and Pulmonary and resume Apixaban if no drop in Hemoglobin and no bleeding in stool or black stool Please refrain from alcohol , as we discussed. Acamprosate and Iron pills have been sent to our pharmacy? Orders?? You Need to Schedule the Following Appointments Follow Up with??Jannet Graham When:??Within 1 to 2 weeks Where: [address] [place] [address]- Business (1) Follow Up with??Nawaf Alvarez When:??Within 5 to 7 days Where: [address] [place] [address] [place] [address]- Business (1) Follow Up with??Martin Avilez When:??Within 1 week Where: [address] [place] [address], [address] [facility] [place] [address]- Business (1) Discharge Medications DIAZ HER :1965 Visit Date:05/14/2024 Medications: Please continue your medications until treatment is completed or stopped by your provider. Medications not listed below should be discontinued. Discuss any questions related to medications with your provider. 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 Unchanged Albuterol (albuterol CFC free 90 mcg/ inh inhalation aerosol) 1 puff(s) Inhalation 4 times a day as needed for as needed for wheezing Unchanged BuPROpion (buPROPion 300 mg/ 24 hours (XL) oral tablet, extended release) 1 tab(s) Oral Daily Unchanged Carvedilol (carvedilol 6.25 mg oral tablet) 1 tab(s) Oral Twice a day Unchanged Folic Acid (folic acid 1 mg oral tablet) 1 tab(s) Oral Daily Unchanged Furosemide (furosemide 40 mg oral tablet) 1 tab(s) Oral Twice a day 9am and 1 pm ?? Unchanged HydrOXYzine (hydrOXYzine pamoate 25 mg oral capsule) 1 capsule Oral 4 times a day as needed for for itching Unchanged Lorazepam (LORazepam 0.5 mg oral tablet) 1 tab(s) Oral Daily as needed for as needed for anxiety Unchanged Omeprazole (omeprazole 40 mg oral enteric coated capsule) 1 capsule Oral Daily Unchanged Ondansetron (ondansetron 4 mg oral tablet) 1 tab(s) Oral Every 8 hours as needed for Nausea & Vomiting Unchanged Paroxetine (PARoxetine 20 mg oral tablet) 1 tab(s) Oral Daily Unchanged Rifaximin (rifAXIMin 550 mg oral tablet) 1 tab(s) Oral Twice a day Unchanged Spironolactone (spironolactone 100 mg oral tablet) 2 tab(s) Oral Daily Unchanged Thiamine (thiamine 100 mg oral tablet) 1 tab(s) Oral Daily Duration: 7 Days Pharmacy Information [facility]: [address] [place], [place] [phone] Prescription Given During Visit Acamprosate (acamprosate 333 mg oral delayed release tablet) - 2 tablet = 666 mg, By Mouth, 3 timesa day, # 180 tablet, 2 Refills, [facility], [address] [place] [phone]?? Ferrous Sulfate (ferrous sulfate 325 mg oral tablet) - 1 tablet = 325 mg, By Mouth, Daily, # 30 tablet, 2 Refills, [facility], [address] [place] [phone]?? Laboratory Results Below is a partial list of the most recent Laboratory test results done prior to this discharge. You may have had other tests and procedures not included in this list. Please discuss all test resultswith your provider. Est Creatinine Clearance - 149.39 mL/min (05/14/2024) RBC Available - XM (05/15/2024) RBC Unit ID - [id number] (05/15/2024) Albumin Level (05/14/2024) ???Albumin - 2.9 Gm/dL Alk Phos (05/14/2024) ???Alkaline Phosphatase - 219 units/L ALT (05/14/2024) ???ALT (SGPT) - 9 units/L Ammonia Venous (05/14/2024) ???Ammonia, Venous - 43 ??mole/L AST (05/14/2024) ???AST (SGOT) - 27 units/L Bilirubin Total (05/14/2024) ???Bilirubin, Total - 1.6 mg/dL BUN (05/15/2024) ???BUN - 7 mg/dL CBC (05/15/2024) ???WBC - 3.1 k/mm3???RBC - 3.60 m/mm3???Hgb - 7.9 Gm/dL???Hct - 26.4 %???MCV - 73.3 femtoliters???MCH - 21.9 pg???MCHC - 29.9 Gm/dL???Platelet Count - 193 k/mm3???RDW-SD - 58.8 femtoliters???MPV - 8.5 femtoliters???Nucleated RBC (Automated) - 0.0 #/100 WBC'S???Abs. NRBC - 0.0 k/mm3 Cell Count and Differential Fluid (05/14/2024) ???Color, Fluid - YELLOW???Appearance, Fluid - CLEAR???WBC, Fluid - 86 per Cubic Millimeter???RBC, Fluid - <3000 per Cubic Millimeter? ?Seg, Fluid - 22 %? ?Lymph, Fluid - 63 %? ?[place], Fluid - 9 %? ?Other, Fluid - 6 % Creatinine (05/15/2024) ???Creatinine-Blood - 0.72 mg/dL???Estimated GFR Creatinine - 107 ML/MIN/1.73 M2 Electrolytes (05/14/2024) ???Sodium - 135 mmol/L???Potassium - 4.0 mmol/L???Chloride - 104 mmol/L???Bicarbonate Level - 22 mmol/L???Anion Gap - 9 FERRITIN (05/14/2024) ???Ferritin Level - 31 ng/mL GLUCOSE POC (05/15/2024) ???Glucose, POC - 153 mg/dL HOLD LAVENDER TUBE (05/14/2024) ???Hold Lavender Top - SPECIMEN DISCARDED AFTER 24 HOURS. INR (05/14/2024) ???INR - 1.3???Protime (PT) - 13.2 seconds IRON & TIBC (05/14/2024) ???Iron Level - 16 mcg/dL???Iron Binding Capacity, Unsaturated - 254 mcg/dL???Iron Binding Capacity, Estimated Total - 270 mcg/dL???% Iron Saturation - 6 % LFT's (05/15/2024) ???Protein, Total - 5.9 Gm/dL???Albumin - 2.6 Gm/dL???Alkaline Phosphatase - 202 units/L???AST (SGOT) - 21 units/L???ALT (SGPT) - 10 units/L???Bilirubin, Total - 2.9 mg/dL???Bilirubin, Direct - 1.2 mg/dL???Bilirubin, Indirect - 1.7 mg/dL Lytes (05/15/2024) ???Sodium - 138 mmol/L???Potassium - 3.9 mmol/L???Chloride - 107 mmol/L???Bicarbonate Level - 21 mmol/L???Anion Gap - 10 PT (INR) (05/15/2024) ???INR - 1.3???Protime (PT) - 13.4 seconds PTT (05/14/2024) ???APTT - 26.6 seconds Type and Screen (05/14/2024) ???Blood Type - A Positive???Antibody Screen - Negative VITAMIN B12 (05/15/2024) ???Vitamin B12 Level - 734 pg/mL You will be contacted within 72 hours with your results. Allergies (NKA means No Known Allergies) NKA Problems Active Problems??(10) Alcoholic cirrhosis?? Colon polyp?? Depression?? Dry heaves?? Epigastric abdominal pain?? Esophageal varices?? GERD (gastroesophageal reflux disease)?? Hyperlipidemia?? Hypertension?? Portal hypertensive gastropathy?? Education Materials Below is the list of Educational Leaflet Providered with your Discharge Instructions. Valuables and Belongings I fully understand and agree that [facility] accepts no responsibility for all my personal property including clothing, toilet articles, radios, jewelry, dentures, hearing aids, rings, money, or any other property that is in my possession or is brought to me after admission. I understand certain valuables may be placed in a hospital safe for a short period of time. I understand that the hospital is not liable for loss or damage due to accident, fire, or other natural occurrence while said property is in the safe. I accept full responsibility for any personal property that I keep with me, and will not hold the hospital responsible in case of loss or disappearance. I acknowledge that i have been encouraged to send valuables and belongings home. ? Other Discharge Information ? Pulmonary Rehab Status?? Pulmonary Rehab Discharge Status?? Respiratory Rate: 19 br/min ? Common Emergency Awareness Tips IS IT A STROKE? Act FAST and Check for these signs: FACE Does the face look uneven? ARM Does one arm drift down? SPEECH Does their speech sound strange? TIME Call at any sign of stroke ?? Heart Attack Signs Chest discomfort: Most heart attacks involve discomfort in the center of the chest and lasts more than a few minutes, or goes away and comes back. It can feel like uncomfortable pressure, squeezing, fullness or pain. Discomfort in upper body: Symptoms can include pain or discomfort in one or both arms, back, neck, jaw or stomach. Shortness of breath: With or without discomfort. Other signs: Breaking out in a cold sweat, nausea, or lightheaded. Remember, MINUTES DO MATTER. If you experience any of these heart attack warning signs, call to get immediate medical attention! ?? Smoking can increase your chances of developing chronic health problems and can cause harmful effects to other family members in your house. If you smoke, you are strongly encouraged to quit. Please call [facility] Link at [phone] or [phone] or log in to [email or web address] for referrals to smoking cessation programs. ?? 125 Suicide & Crisis Lifeline is available 15/01 if you or someone you know needs to find a reason to keep living. By calling 763 you'll be connected to a skilled, trained counselor at a crisis center in your area. INPATIENT DISCHARGE INSTRUCTIONS SIGNATURE PAGE DIAZ HER Location:[facility] Registration Date and Time:05/14/2024 11:37 EST Primary Care Physician: Martin Avilez MD, Attending Physician: Nemesio Early MD, I DIAZ HER, have received the above patient education materials/instructions and have verbalized understanding. If ambulance or transport services are being used I further acknowledge being given a choice of service. ?? If you need to contact me, please call me at this number: . Patient/Pipe Fitter Name: Patient/Pipe Fitter Signature: Relationship to Patient: Witness Name/Signature: Date: * Nemesio Early MD D: SIGN, PERFORM, SIGN, VERIFY Event Display: Patient Education Handout Authored Date: [id number] Patient Care team information Care Team Personnel Name: German Plascencia RN Position: S RN Member Role: Primary Care Nurse Name: Ophelia Mcgowan Position: S RN Member Role: Primary Care Nurse Name: Mohini Dowd RN Position: S RN Supv Member Role: Primary Care Nurse Name: Byron Rosales RN Position: S RN Member Role: Primary Care Nurse Name: Regi Bacon RN Position: S RN Member Role: Primary Care Nurse Name: Shanique Torrez RN Position: [facility] RN Supv Member Role: Primary Care Nurse Name: Martin Avilez MD Position: [facility] Physician - Primary Care Member Role: PCP Address: [address] [place] [address], [address] [place] [id number] Telecom: Name: Halima Zapata RN Position: [facility] RN Member Role: Primary Care Nurse Care Team Related Persons Name: ROSALBA NAIR Name: SINDHU W[place] Insurance Providers Guarantor name: DIAZ TAINA Health Plan Information #: 1 Payer: [facility] [employer]/[facility] Member Number: [id number] Policy Number: NA Group Number: [facility] Health Plan Information #: 2 Payer: NA Member Number: [id number] Policy Number: NA Group Number: NA
--- OUTSIDE RECORDS SUMMARY | 2024-05-20 07:58 | XMS_ITS | Continuity of Care Document ---
Author Organization [facility] Address [address] [place] [address]- Care Team Providers Care Double Cut Off Saw Operator Name Role Phone Raghav BURDEN, Martin Quintanilla Primary Care Physician Encounter [facility] Date(s): 03/25/24 - 04/24/24 [facility] [address] [place], [place] [address] Allergies, Adverse Reactions, Alerts No Known Allergies [...] Primary Care Nurse Name: Ophelia Mcgowan Position: [facility] RN Member Role: Primary Care Nurse Name: Mohini Dowd RN Position: [facility] RN Supv Member Role: Primary Care Nurse Name: Byron Rosales RN Position: [facility] RN Member Role: Primary Care Nurse Name: Shanique Torrez RN Position: [facility] RN Supv Member Role: Primary Care Nurse Name: Martin Avilez MD Position: [facility] Physician - Primary Care Member Role: PCP Address: Address: [address] [place] [address], [address] [facility] [place] [address]- Care Team Related Persons Name: ROSALBA NAIR Address: home [address] [place] [address] Name: SINDHU WASHINGTON Address: home [address], [place] [address]
[2024-05-20 08:34] LABS: Anion Gap 11 (12-20); Blood Urea Nitrogen 10 mg/dL (9-16); Calcium 8.4 mg/dL (8.4-10.2); Carbon Dioxide 24 mmol/L (22-29); Chloride 104 mmol/L (96-108); Creatinine Clr Calc Pharmacy 153.7; Estimated Glomerular Filt Rate > 60; Glucose Random 153 mg/dL (60-115); Potassium 4.5 mmol/L (3.3-5.1); Sodium 134 mmol/L (135-145)
[2024-05-20] MEDS: Albumin Human 25 % 100 ML IV ×4 (09:24→10:33)
[2024-05-20] MEDS: Lidocaine HCl 1 % MPF 5 ML VIAL SUBCUT (09:56)
== END 2024-05-20 11:08 | disposition home or self-care (01) ==
PROVIDERS: Physician Assistant Surgical; PCP Internal Medicine; Visit Provider Internal Medicine Gastroenterology
DX: K70.31 Alcoholic cirrhosis of liver with ascites (principal); R19.00 Intra-abdominal and pelvic swelling, mass and lump, unspecified site; I85.00 Esophageal varices without bleeding; K76.81 Hepatopulmonary syndrome; F10.21 Alcohol dependence, in remission; K85.20 Alcohol induced acute pancreatitis without necrosis or infection; E11.9 Type 2 diabetes mellitus without complications; D62 Acute posthemorrhagic anemia; I81 Portal vein thrombosis; F12.90 Cannabis use, unspecified, uncomplicated; C25.9 Malignant neoplasm of pancreas, unspecified; Z87.891 Personal history of nicotine dependence; Z86.711 Personal history of pulmonary embolism; Z79.899 Other long term (current) drug therapy; Z79.01 Long term (current) use of anticoagulants; Z79.4 Long term (current) use of insulin
CPT/HCPCS: 36415; 49083; 80048; J2003; P9047

== ENCOUNTER → 2024-05-20 09:30 | Outpatient (BNV) | payer OTHER, SELFPAY | PROVIDERS: PCP Internal Medicine; Visit Provider Physician Assistant Surgical | DX: R18.8 Other ascites (principal) | CPT/HCPCS: 49083 ==

== ENCOUNTER 2024-05-26 14:06 | Outpatient (AMB) | payer OTHER, SELFPAY ==
[2024-05-26 14:07] VITALS: BP 122/62; PULSE 90; O2SAT 100; BMI 28.4
--- NOTE | 2024-05-26 14:07 | MHC.OFFVIS ---
Vital Signs 05/26/24 14:07 Height 6 ft 5 in Weight 239 lb 3.225 oz BMI 28.4 BP 122/62 Blood Pressure Location Lt brachial Position Sitting Pulse 90 Pulse Source Doppler Pulse Oximetry (%) 100 Oxygen Delivery Method Room Air Intake Visit Reasons: Pulmonary Nodule Allergies No Known Drug Allergies [NO KNOWN DRUG ALLERGIES] Allergy (Mild, Verified 05/20/24 08:26) NONE HPI Comments Details: The patient is a 58 y/o man with a history of decompensated alcoholic cirrhosis with varices and right pleural effusion.? Was most recently discharged 11/03/2021 after hospitalization GI bleed.? Patient now complaining of several days of right-sided chest pain, sharp, worse with inspiration.? Associated with shortness of breath worse on exertion, improved with rest, progressively worsening.? Patient continues to drink alcohol, last drink was 2 days prior to presentation.? He has also noticed to be feeling shaky.? In ED CTA was negative for PE but did show moderate right-sided effusion. the patient did undergo thoracentesis demonstrating what appeared to be a transudative process, lymphocytic predominant. His lymphocyte count was elevated In the pleural fluid. The patient did feel better after the thoracentesis. He did not have any abdominal interventions. After the procedure the patient felt better and subsequently was discharged. we did review his imaging studies including his CT scan demonstrating moderate to large pleural effusion on the right side. Explained to him that this is consistent with hepatic hydrothorax. the patient does have a history of varices in addition to portal vein thrombosis. He does have a prescription for Aldactone and Lasix. We talked about the importance of taking the medication. He also needs to take additional diuretic if he is getting any weight. His kidney function is stable. We did talk about his meld score demonstrating of 3 month mortality of 20%. Patient understands that this is very serious. His only potential intervention will be to quit drinking and being referred to a transplant center. The patient did have misconceptions about liver transplants. We did re-educated about the benefits of liver transplant specially with his worsening liver failure. The patient understands that alcohol withdrawal can be very serious. Once he starts withdrawal he needs to seek medical care. the cough 02/14/2022 the patient is here for a pulmonary follow-up visit. Overall he is feeling better. He was hospitalized in he did undergo a thoracentesis. The patient did develop a complication of a hydropneumothorax. He did have a repeat CT scan of the chest after thoracentesis. It appeared that the pleura for the most part appear to be thin without any evidence of any lung entrapment. This was out the possibility of lung entrapment as a cause of the pneumothorax. The patient also appeared to have slight amount of fluid in the subdiaphragmatic area consistent with ascites. He was recently evaluated by GI and his diuretics were increased. He feels fairly well. Denies any worsening of his shortness of breath. He does not feel like he needs further thoracentesis or interventions at this time which is extremely positive. He was given good occasional GI and he understands what he needs to do to stay well as much as possible. He is scheduled to undergo repeat ultrasound of the abdomen and will also have him get an x-ray around that time. He did ask the question about the possible etiologies. I did explain that hepatic hydrothorax was the likely process in view of the other medical issues that he has and the ascites noted on the CT scan as well as a transudative fluid and the saag of 1.3. I did review his recent chest x-ray which demonstrated interval resolution of the pneumothorax which is great. The pleural effusion appears to be stable. Patient may also have an elevation of his right hemidiaphragm making the effusion appeared to be worse. 07/11/2022 the patient is here for pulmonary follow-up visit. Patient complains of significant shortness of breath. Moderate severity. She is thinking of possibly go back to the ER because the breathing is getting much worse. Even at rest. His breathing was like this last week where he was seen in the ER noted to have a recurrent left-sided pleural effusion. Again he underwent a thoracentesis draining 2 L. This time the fluid was clear. Prior to that he had the pleural effusion drain in appear to be serous sanguinous. Unclear if she had any injury to the area are from was traumatic. Yet the LDH was not significantly elevated and cytology negative. Now again he started to develop increasing shortness of breath even after just a few days after having the thoracentesis. Unfortunately in further questions he states that he ran out of his Lasix and also out doctor so he has been without it for the last several days. His urine output has decreased significantly. And I do believe that the fact that he has been without the medication has resulted in the significant rebound pleural effusion. I did call Radiology to see if we can arrange for him to get a left-sided thoracentesis done for therapeutic purposes to avoid a ER visit. They cannot do it today but they will see about tomorrow. I will send a prescription a prescription over for both his Lasix and Aldactone which she should start today. Although, initially was getting infusions on the right side and now on the left there maybe a component of self pleurodesis that may have occurred on his right side in view of the multiple thoracentesis. Still the pleural effusions are still likely related to hepatic hydrothorax with increasing abdominal girth and ascites. If there is still a question of uncertainty as far as the etiology for the pleural effusions then a thoracoscopy or video-assisted thoracoscopy may be warranted. He was already referred to thoracic surgery in the past. 09/20/2022 the patient is here for a pulmonary follow-up visit. The patient overall has been doing good from a respiratory status. The last time he underwent a thoracentesis back in 07/07/2021. It left a residual small effusion. The patient tolerated procedure well. He has not required any additional thoracentesis or paracentesis. He has continued to uses diuretic as prescribed. The additional diuretics have been effective in controlling his hepatic hydrothorax. He recently did undergo an ultrasound of the liver demonstrating the cirrhosis. Also demonstrating mild ascites and small pleural effusion. We did look at the fusion or cells. He also has a nonocclusive portal vein clot. This point it is only nonocclusive. He was referred to Hematology. The patient understands that he is about develops sudden significant lower extremity edema and ascites he has to go to the ER for evaluation. In the meantime, if the patient develops any worsening shortness of breath he is able to get a chest x-ray in that knee now in order to assess the need for thoracentesis. 12/27/2022 the patient is here for a pulmonary follow-up visit. Recently was admitted to the hospital with a upper GI bleed secondary to esophageal varices. The patient underwent endoscopy and currently doing better. The patient also has a complication of the hepatic hydrothorax. Has not required thoracentesis since he is doing better with diuresis. Now recommended he consider tips procedure. Explained to the patient if he does undergo tips the risk for the recurrent pleural effusions will decrease. the patient is working on his alcohol cessation. Currently drinking nonalcoholic beer which appears to be effective for him. Currently patient is doing well he will call he has any worsening symptoms otherwise will follow-up in 3-4 months. 04/26/2023 the patient is here for a pulmonary follow-up visit. The patient had been in the hospital he was diagnosed with a pulmonary embolism. In addition to that he had a left-sided pleural effusion. It was drained. It was a little bit more serosanguineous. Afterwards he was having some shortness of breath we did repeat the chest x-ray demonstrating interval worsening of the pleural effusion and we did request for thoracentesis. He has not have had the thoracentesis as of yet. However, he is feeling better. On examination I do appreciate some breath sounds at the left base which is reassuring. Therefore will hold off on the thoracentesis specially since he is on the blood thinners and will go ahead and repeat the x-ray in 2-3 weeks. If he has any worsening symptoms he can always get the x-ray sooner. He knows that for any procedure he would have to stop the Eliquis for a couple days. He also understands that with blood clots he needs to be on the blood thinners for at least 3 months. If not longer. The patient has had a history of blood clots I think in the portal vein system. No evidence of any lower extremity DVTs which is reassuring. He is tolerating the Eliquis without any evidence of any bleeding. Unfortunately the still drinking alcohol. We did talk about making sure that he quits drinking in order to consider the possibility of a lung transplant in the future. 07/17/2023 the patient is here for pulmonary follow-up visit. The patient since we spoke had a chest x-ray demonstrating moderate sided pleural effusion. Therefore we sent him for thoracentesis. He had to stop the Eliquis however. Therefore took a little longer. By the time that he was scheduled for the thoracentesis. By the time that he got a thoracentesis done he was already feeling better she was not sure if he should had a done. After the thoracentesis and drained about a L and a have the patient started having left-sided chest discomfort. He was then shoveling and snow blowing so had a hard time knowing for sure if the left-sided discomfort with musculoskeletal or if it was related to his procedure. Therefore we had and come back for chest x-ray. No evidence of any pneumothorax although it appears that the pleural effusion was increasing after the thoracentesis already occurred. Explained to the patient likely that he has a component of trapped lung on that side and therefore the negative pressure causes tugging of the lung causing pain and subsequently once the fluid comes back the symptoms do resolve. He does have the crease and diminished breath sounds absent breath sounds on the left base suggesting the fluid is already back. The patient also has been taking Eliquis and his hemoglobin has been dropping. He is scheduled for an endoscopy and also colonoscopy. In part is due to the blood thinners. This is because he had blood clots that were noted back in March 2023. Will go ahead and repeat a CTA in the coming months to make sure that the blood clots or gone in case he needs to stop the anticoagulation. 03/07/2024 the patient is here for a pulmonary follow-up visit. He had been admitted to the hospital with upper GI bleed secondary to variceal bleed. Subsequently transferred to [facility] for potential tips. The patient was reluctant. He needs to talk further with his regular GI doctor. In the meantime has been having shortness of breath. We did have him get a chest x-ray and does not appear to be having significant fluid buildup of these in the left lung. Appears to be slightly loculated. No need for thoracentesis right now. The patient did have a CT scan of the chest demonstrating pulmonary nodules however. Therefore he would need to get a repeat CT scan of the chest at this time to further address the nodular densities. He continues on the diuresis therapy. He is also working on his sobriety. 05/26/2024 the patient is here for a pulmonary follow-up visit. Since we last spoke she was evaluated at [facility] in the tips procedure was attempted although they could not completed because of his vessels were too small. Multiple people tried in the were able to do so. He did undergo a significant paracentesis or a 9-10 L. the patient has been getting frequent paracentesis. We did look at his last CT scan of the chest demonstrating what appears to be a small loculated pleural effusion and some scarring in the left base. Not enough to tap. In addition to that he has had issues with anemia. Specially with his gastric varices and esophageal varices. His hemoglobin is down. He has been off the Eliquis and has been doing well. Will go ahead and keep him off the Eliquis at this time. Will request a D-dimer to make sure that is staying within normal. The patient had a CTA back in 09/12/2023 demonstrating resolution of the blood clots. At this point if we can keep him off the anticoagulation or probably best because of his significant risk of bleeding. The patient is trying to stay sober. He is drinking nonalcoholic beer. He says it is more expensive but the taste the same. He knows that his only option will be a liver transplantation. He potentially is a candidate but he needs to quit any kind of alcoholic beverages and follow-up with GI to see if he can be referred. Again this is a long shot for him but is some something that he can still try to achieve. [facility] Medical History Pulmonary nodule 1 cm or greater in diameter Pleuritic chest pain Pulmonary embolism, bilateral Cirrhosis of liver Diabetes Alcohol use disorder, moderate, dependence Recurrent left pleural effusion Pleural effusion Pericardial effusion Tachycardia Dyspnea Hydropneumothorax Pleural effusion on right Decompensation of cirrhosis of liver Cirrhosis GERD (gastroesophageal reflux disease) Esophageal varices Chronic abdominal pain Gout Peripheral neuropathy Alcoholism Elevated LFTs Surgical History S/P right knee arthroscopy History of abdominal paracentesis Hx of esophagogastroduodenoscopy History of thoracentesis H/O colonoscopy H/O cervical spine surgery H/O hemicolectomy Family History Mother Cancer Sister Cancer Social History Household Members: Other Household Members Other:: 1 Housing: Apartment Are you a primary cardiac care nurse to a significant other at home: No Do you presently have visiting nurse or other home services: No Alcohol intake: current Alcohol intake frequency: holidays/special occasions only Alcohol type: beer Comment: counts correct Patient Tobacco Use Status: Former Tobacco user Tobacco use type: Smokeless Tobacco Years Smoked: 35 e-Cigarette/Vaping Use: Currently Using Second Hand Smoke Exposure: No Substance Use Type: Marijuana Advance Directives Date on File: 11/27/22 service: No Current occupational status: unemployed Review of Systems Const Unobtainable due to mental condition Denies fatigue, Denies fever(s), Denies night sweats, Reports poor appetite and Reports weight loss Eyes Denies change in vision ENT Reports Normal hearing present Card Reports no additional complaints, Reports chest pain and Reports dyspnea on exertion Resp Denies chest congestion, Denies cough, Denies hemoptysis, Denies pain on inspiration, Denies pain with cough and Reports dyspnea on exertion GI Reports abdominal pain Musc Reports arthralgias Skin/Breast Denies pruritus Neuro Reports Normal hearing present and Denies Abnormal speech present Endo Denies fatigue Physical Exam Vital Signs: Last Vital Signs Pulse 90 05/26/24 14:07 BP 122/62 05/26/24 14:07 Pulse Ox 100 05/26/24 14:07 Oxygen Delivery Method Room Air 05/26/24 14:07 BMI result Body Mass Index 28.4 Const General: alert Orientation/consciousness: patient oriented x3 HEENT Head: Yes normal to inspection Eyes Conjunctivae: conjunctival abnormal bilateral conjunctival icterus Neck Neck: Yes supple Chest Chest palpation & inspection: normal inspection of the chest Resp Effort & Inspection: normal respiratory effort Auscultation: no rales and diminished lung sounds Percussion: no dullness to percussion Cardio Rate: regular rate Rhythm: regular rhythm Heart sounds: S1 normal heart sound present and S2 normal heart sound present GI Inspection: Yes distended Skin General skin exam: spider nevi Neuro General: patient oriented x3 Cranial nerves: Yes Normal hearing present Speech: No Abnormal speech present Extrem General: Yes no clubbing, cyanosis or edema Assessment & Plan Assessment & Plan (1) Pleural effusion: Code(s): J90 - Pleural effusion, not elsewhere classified Category: Medical (2) Pulmonary embolism, bilateral: Code(s): I26.99 - Other pulmonary embolism without acute cor pulmonale Category: Medical (3) Alcoholic cirrhosis of liver: Code(s): K70.30 - Alcoholic cirrhosis of liver without ascites Category: Medical Qualifiers: Ascites presence: with ascites Qualified Code(s): K70.31 - Alcoholic cirrhosis of liver with ascites (4) Pleuritic chest pain: Code(s): R07.81 - Pleurodynia Category: Medical Plan stopping Eliquis, monitoring for symptoms, will check ddimer diuresis as tolerated needs to stay sober, non alcoholic beer F/U 3-4 months Orders: Orders Basic Metabolic Panel Today R07.81 - Pleurodynia D Dimer High Sensitivity Today R07.81 - Pleurodynia Coding Level of Care Code Est Pt Level 4 (06316) Diagnoses Pleural effusion J90 Pulmonary embolism, bilateral I26.99 Alcoholic cirrhosis of liver with ascites K70.31 Ascites presence: with ascites Pleuritic chest pain R07.81 Time Spent (min) 16
== END 2024-05-26 14:34 | disposition home or self-care (01) ==
PROVIDERS: PCP Internal Medicine; Visit Provider Hospitalist
DX: J90 Pleural effusion, not elsewhere classified (principal); I26.99 Other pulmonary embolism without acute cor pulmonale; K70.31 Alcoholic cirrhosis of liver with ascites; R07.81 Pleurodynia
CPT/HCPCS: 99214

== ENCOUNTER 2024-05-26 14:29 | Outpatient (REF) | payer OTHER, SELFPAY ==
[2024-05-26 15:09] LABS: MANUAL DIFF FLAG NO
[2024-05-26 15:39] LABS: Basophils Absolute Auto 0.1 X10*3/uL (0.0-0.2); Basophils Percent Auto 1.8 % (0-2); Eosinophils Absolute Auto 0.1 X10*3/uL (0.0-0.4); Eosinophils Percent Auto 2.6 % (0-4); Hematocrit 29.6 % (42.0-52.0); Hemoglobin 8.7 g/dl (14.0-18.0); Imm Gran Abs Auto 0.03 X10*3/uL (0.00-0.03); Imm Gran Pct Auto 0.5 % (0.0-0.4); Lymphocytes Absolute Auto 0.9 X10*3/uL (1.2-4.9); Lymphocytes Percent Auto 16.2 % (20-40); Mean Corpuscular HGB Conc 29.4 g/dl (31.0-36.0); Mean Corpuscular Hemoglobin 22.5 pg (27.0-33.0); Mean Corpuscular Volume 76.5 fL (80.0-98.0); Mean Platelet Volume 8.5 fL (9.4-12.4); Monocytes Absolute Auto 0.9 X10*3/uL (0.1-1.2); Monocytes Percent Auto 16.9 % (2-11); Neutrophils Absolute Auto 3.4 x10*3/uL (2.0-8.3); Platelet Count 222 X10*3/uL (160-400); Red Blood Count 3.87 X10*6/uL (4.60-5.80); Red Cell Distribution Width 25.3 % (11.0-16.0); White Blood Count 5.5 X10*3/uL (4.8-10.8)
[2024-05-26 15:54] LABS: Estimated Average Glucose 94 mg/dL; Hemoglobin A1C 68.4732 umol/L; Hemoglobin A1c % 4.9 % (<6.0); Total Hemoglobin (HGBA1C) 2258.7911 umol/L
[2024-05-26 17:06] LABS: D Dimer High Sensitivity 635 NG/ML
[2024-05-26 17:26] LABS: Anion Gap 9 (12-20); Blood Urea Nitrogen 9 mg/dL (9-16); Calcium 8.7 mg/dL (8.4-10.2); Carbon Dioxide 24 mmol/L (22-29); Chloride 108 mmol/L (96-108); Estimated Glomerular Filt Rate > 60; Glucose Random 113 mg/dL (60-115); Potassium 4.6 mmol/L (3.3-5.1); Sodium 136 mmol/L (135-145)
== END 2024-05-26 14:30 | disposition home or self-care (01) ==
LOC: HO.LAB 14:29
PROVIDERS: Absent Provider Hospitalist; PCP Internal Medicine; Visit Provider Physician Assistant Medical
DX: D64.9 Anemia, unspecified (principal); R07.81 Pleurodynia; Z13.1 Encounter for screening for diabetes mellitus; J90 Pleural effusion, not elsewhere classified; I26.99 Other pulmonary embolism without acute cor pulmonale; K70.31 Alcoholic cirrhosis of liver with ascites
CPT/HCPCS: 36415; 80048; 83036; 85025; 85379; 99212

== ENCOUNTER 2024-06-03 07:54 | Day surgery (SDC) | payer OTHER, SELFPAY ==
[2024-06-03] VITALS (11 sets, daily range): BP systolic 115–134; BP diastolic 66–89; PULSE 91–99; RESP 11–20; O2SAT 95–100; BMI 29.4
--- NOTE | ~2024-06-03 | US_ITS ---
Ultrasound paracentesis History: Ascites. Risks and benefits and possible complications were discussed with the patient and consent form was signed. A safe pocket of ascitic fluid was identified using ultrasound guidance, and the overlying skin was marked. The abdomen prepped and draped in sterile fashion. 1% lidocaine was used as a local anesthetic. Using ultrasound guidance, a 5 fr catheter was placed into the ascitic pocket. 10 liters of yellow fluid was removed passively. The catheter was then removed. The patient received 75 g albumin. A few outside industrial sales representative images from before and after the examination were obtained. The procedure was performed by Lenard Sandra PA-C and supervised by Dr. Jimenez. US/US paracentesis abd w/image Impression: Ultrasound-guided paracentesis as described above. No immediate complications Electronically signed by: Santino Jimenez MD 06/12/2024 02:51 PM SHERRY SEGOVIA
[2024-06-03] MEDS: Albumin Human 25 % 100 ML IV ×3 (08:55→11:00)
[2024-06-03] MEDS: Lidocaine HCl 1 % MPF 5 ML VIAL 10 ML SUBCUT (10:52)
--- OUTSIDE RECORDS SUMMARY | 2024-06-04 18:39 | XMS_ITS | Data Portability ---
Author Organization [employer] [place] [facility] [employer] Address [address] [place] [address] Care Team Providers Care Vehicle Mechanic Name Role Phone HIM CCA OTHER VALORIE GARCÍA Primary Care Provider Assessment Encounter Date Assessment Date Assessment LastModified by Organization Details LastModified Time 12/05/2023 12/05/2023 I have reviewed and agree with the assessment and plan as documented by the field checker. I provided real time medical direction for this encounter and was immediately available to provide additional phone based assistance as needed. History as noted by field checker. Pt with recent diagnosis of R knee septic arthritis, had knee arthroscopy and wash out performed at [facility] on November 29 and was discharged home on December 01, still taking levaquin. Pt reports that he had some pain and redness of his right upper leg on the day of discharge but he was told that it was normal . Pt now reports that the pain and redness of his upper leg and thigh has been worsening. No fevers or chills. Knee swelling has been stable. On exam, pt afebrile, mildly tachycardic. R leg with diffuse redness, swelling and warmth of the anterior and posterior thigh with tenderness and feels very firm to palpation. Impression: Discussed with pt that the worsening proximal redness, swelling, pain and tenderness is concerning for a post op infection, possibly cellulitis or an infected hematoma. I inform the pt that he needs to return to [facility] today to have orthopedics evaluate his leg. I stress the importance of having his leg evaluated urgently today to rule out worsening infection. We offer to arrange for an ambulance to take him to the ED, but pt prefers to have his sister take him to the [facility] ED today for evaluation. He states he will go there in about an hour. I have called an expect to the ambulance paramedic at the [facility] ED. btils Not available 12/05/2023 11:27:29 Plan of Treatment Reminders Order Date Submit Date Provider Last Modified By Organization Details Last Modified Time Details Appointments None record ed. Lab None record ed. Referral None record ed. Procedures None record ed. Surgeries None record ed. Imaging None record ed. Medication Orders None record ed. Patient TargetsNo targets recorded. Patient InstructionsNo instructions recorded. Reason for Referral None Reported. Medical Equipment None Reported. Medications Name Sig Start Date Stop Date Status Note LastModified by Organization Details LastModified Time delivery fee active Not Available Not Available Not Available furosemide 40 mg tablet TAKE TWO TABLETS BY MOUTH EVERY DAY active Not Available Not Available No t Available carvedilol 6.25 mg tablet TAKE ONE TABLET BY MOUTH TWICE A DAY WITH A MEAL/FOOD active Not Available Not Available Not Available carvedilol 12.5 mg tablet TAKE 1 TABLET BY MOUTH TWO TIMES A DAY WITH A MEAL/FOOD active Not Available Not Available No t Available senna 8.6 mg tablet active Not Available Not Available Not Available sucralfate 100 mg/mL oral suspension TAKE 10ML BY MOUTH FOUR TIMES A DAY FOR 2 WEEKS active Not Available Not Available No t Available sucralfate 1 gram tablet TAKE ONE TABLET BY MOUTH THREE TIMES A DAY BEFORE MEALS active Not Available Not Available No t Available FreeStyle Lancets 28 gauge TEST FOUR TIMES A DAY active Not Available Not Available Not Available spironolacto ne 100 mg tablet TAKE TWO TABLETS BY MOUTH EVERY DAY active Not Available Not Available No t Available thiamine HCl (vitamin B1) 100 mg tablet TAKE ONE TABLET BY MOUTH EVERY DAY active Not Available Not Available No t Available meclizine 12.5 mg tablet TAKE ONE TABLET BY MOUTH THREE TIMES A DAY NEEDED active Not Available Not Available No t Available omeprazole 40 mg capsule,cisco yed release TAKE ONE CAPSULE BY MOUTH EVERY DAY AT 6:30 active Not Available Not Available Not Available carvedilol 3.125 mg tablet TAKE TWO TABLETS BY MOUTH TWICE A DAY active Not Available Not Available No t Available nadolol 20 mg tablet TAKE ONE TABLET BY MOUTH EVERY DAY active Not Available Not Available No t Available hydromorphon e 2 mg tablet TAKE 1 TABLET BY MOUTH EVERY 4 HOURS NEEDED FOR MODERATE PAIN SCALE 5-6 active Not Available Not Available No t Available lorazepam 0.5 mg tablet TAKE 1 TABLET BY MOUTH DAILY NEEDED FOR ACUTE ANXIETY active Not Available Not Available No t Available paroxetine 20 mg tablet TAKE 1 TABLET BY MOUTH DAILY active Not Available Not Available Not Available oxycodone 5 mg capsule TAKE ONE CAPSULE BY MOUTH EVERY 4 TO 6 HOURS NEEDED active Not Available Not Available No t Available folic acid 1 mg tablet TAKE ONE TABLET BY MOUTH EVERY DAY active Not Available Not Available No t Available levofloxacin 500 mg tablet active Not Available Not Available Not Available albuterol sulfate HFA 90 mcg/actuatio n aerosol inhaler INHALE ONE TO TWO PUFFS BY MOUTH EVERY 4 TO 6 HOURS NEEDED active Not Available Not Available No t Available ondansetron 4 mg disintegrati ng tablet DISSOLVE ONE TABLET BY MOUTH UNDER THE TONGUE EVERY 8 HOURS NEEDED active Not Available Not Available No t Available oxycodone 5 mg tablet TAKE 1 TO 2 TABLETS BY MOUTH DAILY NEEDED FOR PAIN active Not Available Not Available No t Available hydroxyzine pamoate 25 mg capsule TAKE 1-2 CAPSULES BY MOUTH ONCE DAILY active Not Available Not Available No t Available insulin lispro (U-100) 100 unit/mL subcutaneous pen FOLLOW PROTOCOL AND USE SUBCUTANEOU SLY FOUR TIMES A DAY BEFORE MEALS AND AT BEDTIME DIRECTED active Not Available Not Available Not Available bupropion HCl XL 300 mg 24 hr tablet, extended release TAKE 1 TABLET BY MOUTH EVERY MORNING active Not Available Not Available No t Available acamprosate 333 mg tablet,delay ed release TAKE ONE TABLET BY MOUTH EVERY 8 HOURS NEEDED FOR ALCOHOL ABSTINENCE active Not Available Not Available N ot Available lactulose 10 gram/15 mL oral solution TAKE 30ML BY MOUTH THREE TIMES A DAY active Not Available Not Available No t Available BD Ultra-Fine Short Pen Needle 31 gauge x 5/16 USE 5 TIMES A DAY active Not Available Not Available No t Available FreeStyle Lite Strips USE 1 STRIP 4 TIMES DAILY TO TEST BLOOD SUGAR active Not Available Not Available No t Available Lantus Solostar U-100 Insulin 100 unit/mL (3 mL) subcutaneous pen INJECT 20 UNITS SUBCUTANEOU SLY IN THE MORNING active Not Available Not Available No t Available GaviLyte-G 236 gram-22.74 gram-6.74 gram-5.86 gram oral solution REFER TO PREP INSTURCTION S PROVIDED BY GI OFFICE. DRINK 240ML EVERY 10 MINUTES STARTING AT 5PM THE EVENING BEFORE PROCEDURE UNTIL FECAL EFFL active Not Available Not Available No t Available Xifaxan 550 mg tablet TAKE ONE TABLET BY MOUTH TWICE A DAY active Not Available Not Available No t Available Eliquis 5 mg tablet TAKE ONE TABLET BY MOUTH TWICE A DAY active Not Available Not Available No t Available Vitals Date Recorded Oxygen saturation Oxygen saturation in Arterial blood by Pulse oximetry Body weight Respiratory rate Body temperature Heart rate Systolic blood pressure Diastolic blood pressure Provider Name and Address Organization Details Last Updated DateTime 4 98 % 98 % 906575. 04 g 18 /min 98.2 [degF] 101 /min 104 mm[Hg] 64 mm[Hg] Not Available [facility] - production 4 11:02:34 Social History None recorded. Functional Status None recorded. Mental Status None recorded. Family History Nothing Reported. Medical History No medical history recorded. Past Encounters Encounter ID Performer Location Encounter Start Date Encounter Closed Date Diagnosis/Indication Diagnosis SNOMED-CT Code Diagnosis ICD10 Code [id number] Amadou Baez MD [facility] - [facility] [address] [place] [id number] 12/05/2023 11:02:27 12/06/2023 10:03:23 Cellulitis of right lower limb [id number] 2429202 L03.115 Health Concerns Section Related Observation LastModified by Organization Detai ls LastModified Time None Recorded Concern Status LastModified by Organization Details LastModified Time None Recorded Advance Directives Directive None Recorded Payers Encounter Date Sequence Insurance Name Policy Number Policy Booth Covered Member ID Booth Member ID Guarantor Name 12/05/2023 1 [facility] - DOS ON OR AFTER 2022 - DUAL ELIGIBLE - JAIL OPTIONS AND ONE CARE (MEDICARE REPLACEMENT/ADV ANTAGE - HMO) Akash Barboza [id number] Akash Barboza Notes Date Note Type Note Provider Name and Address Organization Details Recorded Time 12/05/2023 text/html This was a supervised home visit with field checker Deon Diaz. [facility] Nurse Triage Notes (Claudia Joseph): Reason For Request: knee pain radiating/foot swollen after procedure Chief Complaints: Edema, Pain PMH: Other Allergies: Unknown Comments: Member calling in to place a referral, identified via name and . Member who had septic arthritis to his knee and underwent an arthroscopy.Member has c/o right leg pain and swelling. Member had sx on Sunday. Member had knee debridement. Member has follow-up next week. Per member bandage is falling off. Member states that some part is red but mostly swollen. The member was told this is normal but is concerned it is not improving. The member was sent home on antibiotics and pain meds. The member's levofloxacin has not been completed. The member has called the sx, and they can't get him earlier than next week. MEmber denies f/n/v/d PMH cirrhosis of the liver and pancreatitis .................. .................. .................. .................. .................. .................. .................. ............... Strip Picker Note From Deon Diaz: Pt co pain and redness in right leg after surgery this past Sunday. Pt on antibiotics and pain management already. Pt denies fever NVD CP sob. Pt sts redness and pain has increased since release. Baseline vitals assessed, area warm to touch ..afebrile. [facility] contacted and advised pt to go to ER today. Pt declined ambulance and sts his sister will take him to [facility]. Pt education on the risks of not going to ER. .................. .................. .................. .................. .................. .................. .................. ............... Disposition: Fulfilled Amadou Baez MD [address] [facility],[address], [place], [phone], [place] [employer] 12/05/2023 11:58:49
== END 2024-06-03 11:24 | disposition home or self-care (01) ==
PROVIDERS: Physician Assistant Surgical; PCP Internal Medicine; Visit Provider Internal Medicine Gastroenterology
DX: K70.31 Alcoholic cirrhosis of liver with ascites (principal); D64.9 Anemia, unspecified; R53.83 Other fatigue; K76.81 Hepatopulmonary syndrome; I85.00 Esophageal varices without bleeding; R63.8 Other symptoms and signs concerning food and fluid intake; I10 Essential (primary) hypertension; E11.9 Type 2 diabetes mellitus without complications; I26.99 Other pulmonary embolism without acute cor pulmonale; Z79.01 Long term (current) use of anticoagulants; Z90.49 Acquired absence of other specified parts of digestive tract; F17.290 Nicotine dependence, other tobacco product, uncomplicated; Z56.0 Unemployment, unspecified
CPT/HCPCS: 49083; J2003; P9047

== ENCOUNTER → 2024-06-03 09:40 | Outpatient (BNV) | payer OTHER, SELFPAY | PROVIDERS: PCP Internal Medicine; Visit Provider Physician Assistant Surgical | DX: R18.8 Other ascites (principal) | CPT/HCPCS: 49083 ==

== ENCOUNTER 2024-06-05 13:17 | Outpatient (AMB) | payer OTHER, SELFPAY ==
--- NOTE | 2024-06-05 13:26 | A.OFFVIS_ITS ---
Vital Signs 06/05/24 13:41 Height 6 ft 5 in Weight 233 lb BMI 27.6 BP 120/64 Blood Pressure Location Lt brachial Position Sitting Pulse 82 Intake Visit Reasons: Anemia Intake Note: Patient 5 weeks follow up for Alcoholic cirrhosis of liver with ascites also A cute blood loss anemia. Patient cc: dizziness/fatigue on and off, no good appetite and weight loss, also patient have blood work done from last visit. Security Operations Specialist Required: No Accompanied by: Self / Same As Patient Allergies No Known Drug Allergies [NO KNOWN DRUG ALLERGIES] Allergy (Mild, Verified 07/04/24 09:35) NONE Medication List - Last Reconciled 06/05/24 by Jannet Graham MD albuterol sulfate 90 mcg/actuation 2 puffs inhalation Q6H PRN blood sugar diagnostic (FreeStyle Lite Strips) QID blood-glucose meter (FreeStyle Lite Meter kit) As directed bupropion HCl XL 300 mg PO DAILY carvedilol 6.25 mg PO BID 30 days ferrous sulfate 324 mg PO DAILY 90 days folic acid 1 mg PO DAILY furosemide 80 mg (2 x 40 mg) PO DAILY 90 days gabapentin 300 mg PO DAILY hydroxyzine pamoate 50 mg PO DAILY PRN lancets 4 times daily lorazepam 0.5 mg PO DAILY PRN omeprazole 40 mg PO DAILY 90 days ondansetron 4 mg PO Q8H PRN oxycodone 5 mg PO BID PRN pen needle, diabetic (Pen Needle) As directed thiamine HCl (vitamin B1) 100 mg PO DAILY walker As directed HPI HPI Anemia: Details: GI clinic visit for this 58 YM for FU of ESLD complicated by ascites, esophageal varices (status post banding x 4 in 2022), hepatic hydrothorax and hepatic encephalopathy, portal hypertensive gastropathy, GERD, hypertension, depression, hyperlipidemia. Patient was diagnosed with PE in early 2023 and was started on apixaban. He is status post terminal ileal resection (7 cms) and right hemicolectomy (25 cms) for adenomatous right colon polyps Patient was seen by [place] [facility] [place] and offered a tips placement which he declined. Pt was scheduled for periportal lymph node biopsy at [facility]. Procedure was canceled due to presence of tense ascites. Procedure was not rescheduled due to concern for complications from FNA and advised monitoring with imaging Also pt is considered a poor candidate for systemic therapy incase malignancy is diagnosed. Pt previously followed by Frances Pierre NP and Dr. Mendoza since 06/13/2021 TODAY'S VISIT: Patient 5 weeks follow up for Alcoholic cirrhosis of liver with ascites also Acute blood loss anemia. Patient cc: dizziness/fatigue on and off, no good appetite and weight loss, also patient have blood work done from last visit. The patient is trying to stay sober. He is drinking nonalcoholic beer. He says it is more expensive but the taste the same. Last ETOH intake was 2 days ago. He knows that his only option will be a liver transplantation. Having therapeutic paracentesis every 2 weeks. Continues to have intermittent nausea and decreased appetite. Pt has an appt on 05/14/24 at [facility] - unsure if it is for a TIPPS placement. Always feels fatigued with nausea, poor appetite, intermittent abdominal pain which improves after paracentesis Takes ondansetron SL which helps Gets SOB on climbing stairs Patient denies symptoms of heartburn, dysphagia, nausea, change in weight. Denies recent change in bowel habits, constipation, diarrhea, black stools or rectal bleeding. Pt was started on Eliquis by Dr Alvarez 6 months ago for PE Patient is unsure if he has loud snoring or sleep apnea Denies problems with anesthesia in the past. Drinking 2 beers a day. Thinks he is able to quit Patient denies known family history of liver disease, colon cancer or other GI malignancies. 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 Stigmata of cirrhosis and portal hypertension with [id number] ascites noted. Mima hepatis adenopathy again noted. Evidence of portosystemic collateral vessels including in a small type 1 hiatal hernia and in the gastrohepatic ligament and splenic hilum as well as a small splenorenal shunt 2. Portal veins a small within the liver. Hepatic veins are not well seen due to contrast timing. 3. Chronic lesion in the proximal right femur considered benign. 4. Small to moderate sized umbilical hernia containing ascitic fluid in the anterior wall with a small bowel loop without associated obstruction ENDOSCOPIC STUDIES: 02/21/24 EGD was performed at [facility] which showed portal hypertensive gastropathy and esophageal varices with bleeding and band ligation x 3 was performed 07/26/23 EGD AND COLONOSCOPY WERE PERFORMED BY DR MENDOZA: Impressions:? * Esophageal varices (banding x 1) * Portal hypertensive gastropathy * Portal hypertensive duodenopathy * Normal colon mucosa * Total of 12 polyps removed from the left side of the colon - hyperplastic on biopsy. * Internal hemorrhoids Recommendations:?? * Follow biopsy results. Our office will call or send a letter with results with in 7-10 days. * Continue carvedilol for variceal bleeding prophylaxis * Repeat EGD in 6 months * Patient continues to drink, and was again counseled very strongly for cessation * If 3 or more polyps are adenoma, would recommend repeat colonoscopy in 3 years. * Given the polyp burden, we will also discuss referral to genetics for polyposis [facility] Medical History (Updated 07/03/24 @ 10:34 by Sugar Biggs RN) Septic arthritis Hx of transfusion of packed red blood cells Umbilical hernia Anxiety Pulmonary nodule 1 cm or greater in diameter Pleuritic chest pain Pulmonary embolism, bilateral Cirrhosis of liver Diabetes Alcohol use disorder, moderate, dependence Recurrent left pleural effusion Pleural effusion Pericardial effusion Tachycardia Dyspnea Hydropneumothorax Pleural effusion on right Decompensation of cirrhosis of liver Cirrhosis GERD (gastroesophageal reflux disease) Esophageal varices Chronic abdominal pain Gout Peripheral neuropathy Alcoholism Elevated LFTs Surgical History (Updated 07/03/24 @ 10:35 by Sugar Biggs RN) History of carpal tunnel surgery of left wrist S/P right knee arthroscopy History of abdominal paracentesis Hx of esophagogastroduodenoscopy History of thoracentesis H/O colonoscopy H/O cervical spine surgery H/O hemicolectomy Family History Mother Cancer Sister Cancer Social History Household Members: Other Household Members Other:: 1 Housing: Apartment Are you a primary care aid to a significant other at home: No Do you presently have visiting nurse or other home services: No Alcohol intake: current Alcohol intake frequency: a few times a week Alcohol type: beer Comment: counts correct Patient Tobacco Use Status: Never used Tobacco Tobacco use type: Smokeless Tobacco Years Smoked: 35 e-Cigarette/Vaping Use: Currently Using Second Hand Smoke Exposure: No Substance Use Type: Marijuana Advance Directives: No Advance Directives Information Provided: Yes Advance Directives Date on File: 11/27/22 service: No Current occupational status: unemployed Review of Systems Const All systems reviewed & are unremarkable except as noted in HPI and below Physical Exam Vital Signs: Last Vital Signs Pulse 82 06/05/24 13:41 BP 120/64 06/05/24 13:41 BMI result Body Mass Index 27.6 Const Other: Const General: no acute distress and ill appearing Nutritional Appearance: obese Orientation/consciousness: patient oriented x3 Limitations: physical limitations HEENT Head: Yes normal to inspection Ears: hearing grossly normal bilaterally Eyes Sclerae: sclerae normal Pupils: Equal, round and reactive pupils present Neck Neck: Yes normal visual inspection Chest Chest palpation & inspection: normal inspection of the chest Resp Effort & Inspection: normal respiratory effort Auscultation: clear to auscultation bilaterally Cardio Palpation: normal PMI Rate: regular rate Rhythm: regular rhythm Heart sounds: S1 normal heart sound present, S2 normal heart sound present and no murmurs GI Inspection: Yes distended and Yes visible herniation (reducible umbilical hernia) Palpation (GI): Soft to palpation, nontender and No hepatosplenomegaly present Auscultation: normal bowel sounds Rectal Exam - Male: Yes deferred Skin General skin exam: no rashes or lesions noted Neuro General: patient oriented x3, gait normal and moves all extremities Cranial nerves: Yes Equal, round and reactive pupils present and Yes Normal hearing present Speech: No Abnormal speech present Extrem General: Yes pedal edema and Yes other (no asterixis) Psych Appearance: grossly normal Mental Status: mental status grossly normal Assessment & Plan Assessment & Plan (1) Elevated liver function tests: Code(s): R79.89 - Other specified abnormal findings of blood chemistry Category: Medical (2) Varices of esophagus determined by endoscopy: Code(s): I85.00 - Esophageal varices without bleeding Category: Medical (3) Anemia: Code(s): D64.9 - Anemia, unspecified Category: Medical (4) Alcoholic cirrhosis of liver with ascites: Code(s): K70.31 - Alcoholic cirrhosis of liver with ascites Category: Medical Plan 58 YM with ESLD complicated by ascites, esophageal varices (status post banding x 4 in 2022), hepatic hydrothorax and hepatic encephalopathy, portal hypertensiv e gastropathy, GERD, hypertension, depression, hyperlipidemia. Patient was diagnosed with PE in early 2023 and was started on apixaban (Followed by Pulmonary - Dr Alvarez). He is status post terminal ileal resection (7 cms) and right hemicolectomy (25 cms) for adenomatous right colon polyps Patient was seen by IR [place] [facility] [place] and offered a TIPPs placement which he declined. Pt was scheduled for periportal lymph node biopsy by IR at [facility] and procedure was canceled due to presence of tense ascites. Biopsy was not rescheduled due to unfavorable risk benefit profile and concern for complications from FNA and advised monitoring with imaging Also pt is considered a poor candidate for systemic therapy in case malignancy is diagnosed. 05/14/24 TIPS procedure was attempted at [facility] and was unsuccesful He is being scheduled for a 2nd attempt at TIPS placement at [facility]. REDUCING THE RISK OF LIVER PROGRESSION: patient was advised to completely avoid use of alcohol and lose weight. HCC SURVEILLANCE: the patient is at risk of developing hepatocellular carcinoma given the presence of cirrhosis and need 6 monthly imaging surveillance with either abdominal ultrasound (US) or multiphase cross-sectional imaging (CT or MRI). Last Abd US on 02/04/24 had shown no focal liver lesions suspicious of HCC. He will be scheduled for follow-up liver ultrasound for ongoing surveillance. SURVEILLANCE FOR GASTROESOPHAGEAL VARICES: I will plan schedule an EGD for FU of varices. QUESTION OF LIVER TRANSPLANTATION: Pt is not a candidate for liver transplantation at present due to ongoing ETOH and drug abuse. Pt is scheduled for a regular therapeutic paracentesis for management of recurrent ascites despite taking diuretics. 05/15/24 TIPS placement was attempted via transjugular and transhepatic approach by Dr Buchanan at [facility] and was felt to be unsuccessful due to a firm and cirrhotic liver and portal venous anatomy Pt was not considered a good candidate for BRTO and advised continued management with regular therapeutic paracentesis. Repeat attempt at TIPS placement was offered by Dr Salazar (IR at [facility]) and pt would like to proceed FU in 8 weeks Orders: Orders IR TIPS insertion 06/03/24 K70.31 - Alcoholic cirrhosis of liver with ascites, I85.00 - Esophageal varices without bleeding US paracentesis abd w/image 06/05/24 K70.31 - Alcoholic cirrhosis of liver with ascites Coding Level of Care Code Est Pt Level 4 (83649) Diagnoses Elevated liver function tests R79.89 Varices of esophagus determined by endoscopy I85.00 Anemia D64.9 Alcoholic cirrhosis of liver with ascites K70.31 Time Spent (min) 23
[2024-06-05 13:41] VITALS: BP 120/64; PULSE 82; BMI 27.6
== END 2024-06-05 14:29 | disposition home or self-care (01) ==
PROVIDERS: PCP Internal Medicine; Visit Provider Internal Medicine Gastroenterology
DX: R79.89 Other specified abnormal findings of blood chemistry (principal); I85.00 Esophageal varices without bleeding; D64.9 Anemia, unspecified; K70.31 Alcoholic cirrhosis of liver with ascites
CPT/HCPCS: 99214

== ENCOUNTER → 2024-06-05 13:17 | Outpatient (BNVA) | payer OTHER, SELFPAY | PROVIDERS: PCP Internal Medicine; Visit Provider Internal Medicine Gastroenterology | DX: K70.31 Alcoholic cirrhosis of liver with ascites (principal); K21.9 Gastro-esophageal reflux disease without esophagitis; R79.89 Other specified abnormal findings of blood chemistry; I85.00 Esophageal varices without bleeding; D62 Acute posthemorrhagic anemia | CPT/HCPCS: 99212 ==

== ENCOUNTER 2024-06-13 07:55 | Day surgery (SDC) | payer OTHER, SELFPAY ==
--- OUTSIDE RECORDS SUMMARY | 2024-06-06 10:46 | XMS_ITS | Data Portability ---
Author Organization [employer] Address [address] [place] [address] Care Team Providers Care Marketing Effectiveness Manager Name Role Phone HIM CCA OTHER VALORIE GARCÍA Primary Care Provider Assessment Encounter Date Assessment Date Assessment LastModified by Organization Details LastModified Time 12/05/2023 12/05/2023 I have reviewed and agree with the assessment and plan as documented by the layout designer. I provided real time medical direction for this encounter and was immediately available to provide additional phone based assistance as needed. History as noted by layout designer. Pt with recent diagnosis of R knee septic arthritis, had knee arthroscopy and wash out performed at [facility] on November 29 and was discharged home [...] pt that he needs to return to [facility] today to have orthopedics evaluate his leg. I stress the importance of having his leg evaluated urgently today to rule out worsening infection. We offer to arrange for an ambulance to take him to the ED, but pt prefers to have his sister take him to the [facility] ED today for evaluation. He states he will go there in about an hour. I have called an expect to the forging die sinker at the [facility] ED. btils Not [...] Updated DateTime 4 98 % 98 % 759448. 04 g 18 /min 98.2 [degF] 101 /min 104 mm[Hg] 64 mm[Hg] Not Available [facility] - production 4 11:02:34 Social History None recorded. Functional Status None recorded. Mental Status None recorded. Family History Nothing Reported. Medical History No medical history recorded. Past Encounters Encounter ID Performer Location Encounter Start Date Encounter Closed Date Diagnosis/Indication Diagnosis SNOMED-CT Code Diagnosis ICD10 Code [id number] Amadou Baez MD Main - [facility] [address] [place] [phone] 12/05/2023 11:02:27 12/06/2023 10:03:23 Cellulitis of right lower limb [id number] L03.115 Health Concerns Section Related Observation LastModified by Organization Detai ls LastModified Time None Recorded Concern Status LastModified by Organization Details LastModified Time None Recorded Advance Directives Directive None Recorded Payers Encounter Date Sequence Insurance Name Policy Number Policy Booth Covered Member ID Booth Member ID Guarantor Name 12/05/2023 1 [facility] - DOS ON OR AFTER 2022 - DUAL ELIGIBLE - LONG-TERM OPTIONS AND ONE CARE (MEDICARE REPLACEMENT/ADV ANTAGE - HMO) Akash Barboza [id number] Akash Barboza Notes Date Note Type Note Provider Name and Address Organization Details Recorded Time 12/05/2023 text/html This was a supervised home visit with layout designer Doen Diaz. CRC Nurse Triage Notes (Claudia Joseph): [...] .................. .................. .................. .................. .................. .................. ............... Building Trades Teacher Note From Deon Diaz: Pt co pain and redness in right leg after surgery this past Sunday. Pt on antibiotics and pain management already. Pt denies fever NVD CP sob. Pt sts redness and pain has increased since release. Baseline vitals assessed, area warm to touch ..afebrile. [facility] contacted and advised pt to go to ER today. Pt declined ambulance and sts his sister will take him to [facility]. Pt education on the risks of not going to ER. .................. .................. .................. .................. .................. .................. .................. ............... Disposition: Fulfilled Amadou Baez MD [address] [facility],[address], [place], [address], [place] 12/05/2023 11:58:49
[2024-06-13] VITALS (10 sets, daily range): BP systolic 114–127; BP diastolic 70–80; PULSE 91–96; RESP 10–19; TEMP 36.8–37.1; O2SAT 96–100; BMI 30.6
--- NOTE | ~2024-06-13 | US_ITS ---
Ultrasound paracentesis History: Ascites. Risks and benefits and possible complications were discussed with the patient and consent form was signed. A safe pocket of ascitic fluid was identified using ultrasound guidance, and the overlying skin was marked. The abdomen prepped and draped in sterile fashion. 1% lidocaine was used as a local anesthetic. Using ultrasound guidance, a 5 fr catheter was placed into the ascitic pocket. 10.0 liters of yellow fluid was removed passively. The catheter was then removed. 75 g of albumin was administered to the patient. A few solar sales representative and assessor images from before and after the examination were obtained. The procedure was performed by Lenard Sandra PA-C and supervised by Dr. Jimenez. US/US paracentesis abd w/image Impression: Ultrasound-guided paracentesis as described above. No immediate complications Electronically signed by: Santino Jimenez MD 07/04/2024 03:15 PM [facility] Workstation: [id number]
[2024-06-13 09:05] LABS: Glucose, Whole Blood 121 mg/dL (60-115)
[2024-06-13] MEDS: Albumin Human 25 % 100 ML IV ×3 (09:07→10:28)
[2024-06-13] MEDS: Lidocaine HCl 1 % MPF 5 ML VIAL SUBCUT (11:45)
== END 2024-06-13 11:26 | disposition home or self-care (01) ==
PROVIDERS: Physician Assistant Surgical; PCP Internal Medicine; Visit Provider Internal Medicine Gastroenterology
DX: K70.31 Alcoholic cirrhosis of liver with ascites (principal); I85.00 Esophageal varices without bleeding; D62 Acute posthemorrhagic anemia; K76.6 Portal hypertension; R79.89 Other specified abnormal findings of blood chemistry; K31.89 Other diseases of stomach and duodenum; Z86.0101 Personal history of adenomatous and serrated colon polyps; Z90.49 Acquired absence of other specified parts of digestive tract; K21.9 Gastro-esophageal reflux disease without esophagitis; E11.9 Type 2 diabetes mellitus without complications; R63.0 Anorexia; Z68.27 Body mass index [BMI] 27.0-27.9, adult; R53.83 Other fatigue; I26.99 Other pulmonary embolism without acute cor pulmonale; R91.1 Solitary pulmonary nodule; J90 Pleural effusion, not elsewhere classified; F17.290 Nicotine dependence, other tobacco product, uncomplicated; Z79.899 Other long term (current) drug therapy; Z98.890 Other specified postprocedural states; Z56.0 Unemployment, unspecified
CPT/HCPCS: 49083; 82947; J2003; P9047

== ENCOUNTER → 2024-06-13 09:13 | Outpatient (BNV) | payer OTHER, SELFPAY | PROVIDERS: PCP Internal Medicine; Visit Provider Physician Assistant Surgical | DX: R18.8 Other ascites (principal) | CPT/HCPCS: 49083 ==

== ENCOUNTER 2024-06-26 07:59 | Day surgery (SDC) | payer OTHER, SELFPAY ==
--- OUTSIDE RECORDS SUMMARY | 2024-06-09 06:55 | XMS_ITS | Data Portability ---
Author Organization [employer] Address [address] [place] [address] Care Team Providers Care Director Patient Financial Services Name Role Phone HIM CCA OTHER VALORIE GARCÍA Primary Care Provider [phone] Assessment Encounter Date Assessment Date Assessment LastModified by Organization Details LastModified Time 12/05/2023 12/05/2023 I have reviewed and agree with the assessment and plan as documented by the stacker attendant. I provided real time medical direction for this encounter and was immediately available to provide additional phone based assistance as needed. History as noted by stacker attendant. Pt with recent diagnosis of R knee septic arthritis, had knee arthroscopy and wash out performed at [facility] on November 29 and was discharged home [...] pt that he needs to return to [facility] today to have orthopedics evaluate his leg. I stress the importance of having his leg evaluated urgently today to rule out worsening infection. We offer to arrange for an ambulance to take him to the ED, but pt prefers to have his sister take him to the [facility] ED today for evaluation. He states he will go there in about an hour. I have called an expect to the internet sales representative at the [facility] ED. btils Not available 12/05/2023 11:27:29 Plan [...] Updated DateTime 4 98 % 98 % 996015. 04 g 18 /min 98.2 [degF] 101 /min 104 mm[Hg] 64 mm[Hg] Not Available [facility] - production 4 11:02:34 Social History None recorded. Functional Status None recorded. Mental Status None recorded. Family History Nothing Reported. Medical History No medical history recorded. Past Encounters Encounter ID Performer Location Encounter Start Date Encounter Closed Date Diagnosis/Indication Diagnosis SNOMED-CT Code Diagnosis ICD10 Code [id number] Amadou Baez MD Main - [facility] [address] [place] [phone] 12/05/2023 11:02:27 12/06/2023 10:03:23 Cellulitis of right lower limb [id number] L03.115 Health Concerns Section Related Observation LastModified by Organization Detai ls LastModified Time None Recorded Concern Status LastModified by Organization Details LastModified Time None Recorded Advance Directives Directive None Recorded Payers Encounter Date Sequence Insurance Name Policy Number Policy Booth Covered Member ID Booth Member ID Guarantor Name 12/05/2023 1 [facility] - DOS ON OR AFTER 2022 - DUAL ELIGIBLE - ALF OPTIONS AND ONE CARE (MEDICARE REPLACEMENT/ADV ANTAGE - HMO) Akash Barboza [id number] Akash Barboza Notes Date Note Type Note Provider Name and Address Organization Details Recorded Time 12/05/2023 text/html This was a supervised home visit with stacker attendant Deon Diaz. CRC Nurse Triage Notes (Claudia [...] .................. .................. .................. .................. .................. .................. ............... Functional Tester Typewriters Note From Deon Diaz: Pt co pain and redness in right leg after surgery this past Sunday. Pt on antibiotics and pain management already. Pt denies fever NVD CP sob. Pt sts redness and pain has increased since release. Baseline vitals assessed, area warm to touch ..afebrile. [facility] contacted and advised pt to go to ER today. Pt declined ambulance and sts his sister will take him to [facility]. Pt education on the risks of not going to ER. .................. .................. .................. .................. .................. .................. .................. ............... Disposition: Fulfilled Amadou Baez MD [address] [facility],[address], [place], [address], [place] 12/05/2023 11:58:49
[2024-06-26] VITALS (9 sets, daily range): BP systolic 115–141; BP diastolic 64–83; PULSE 90–105; RESP 12–18; TEMP 36.5–37.2; O2SAT 96–100; BMI 30.2
--- NOTE | ~2024-06-26 | US_ITS ---
Ultrasound paracentesis History: Ascites. Risks and benefits and possible complications were discussed with the patient and consent form was signed. A safe pocket of ascitic fluid was identified using ultrasound guidance, and the overlying skin was marked. The abdomen prepped and draped in sterile fashion. 1% lidocaine was used as a local anesthetic. Using ultrasound guidance, a 5 fr catheter was placed into the ascitic pocket. 8.9 liters of yellow fluid was removed passively. The catheter was then removed. 75 g of albumin was administered to the patient. A few telecommunications sales representative images from before and after the examination were obtained. The procedure was performed by Lenard Sandra PA-C and supervised by Dr. Jimenez. US/US paracentesis abd w/image Impression: Ultrasound-guided paracentesis as described above. No immediate complications Electronically signed by: Santino Jimenez MD 07/04/2024 03:16 PM [facility] Workstation: [id number]
--- OUTSIDE RECORDS SUMMARY | 2024-06-26 08:01 | XMS_ITS | Continuity of Care Document ---
Author Organization [facility] Address [address] [place] [address]- Care Team Providers Care Men'S Golf Coach Name Role Phone Raghav BURDEN, Martin Quintanilla Primary Care Physician [phone] Encounter [facility] Date(s): 05/15/24 - 06/14/24 [facility] [address], [place] [address] Referring Physician: Yovana Barraza Encounter Type: Triage Allergies, Adverse Reactions, Alerts No Known Allergies Immunizations Given and Recorded Vaccine Date Status Refusal Reason SARS-CoV-2 (COVID-19) Ad26 vaccine 12/07/20 Given Medications acamprosate 333 mg oral delayed release tablet 2 tablet = 666 mg, By Mouth, 3 times a day, # 180 tablet, 2 Refills, Maintenance, 05/15/24 4:35:00 PM EST, Tablet, [facility], Partial fill upon [...] ANEMIA, AND TALK TO YOUR PCP / SALES LEDGER ADMINISTRATOR TO RESTART APIXABAN, # 60 tablet, 0 [...] Refills, Maintenance, 05/15/24 4:43:00 PM EST, Tablet, [facility] 3, Partial fill upon patient request if [...] :51:00 PM EST, Route to Pharmacy Electronically, [facility], Partial fill upon patient request if [...] on: 03/19/23 Sex Sex Representation Male (finding) Patient Care team information Care Team Personnel [...] Care Nurse Name: Shanique Torrez RN Position: [facility] RN Supv Member Role: Primary Care Nurse Name: Martin Avilez MD Position: [facility] Physician - Primary Care Member Role: PCP Address: [address] [place] [address], [address] [facility] [place], [place] [address] Telecom: Name: Halima Zapata RN Position: [facility] RN Member Role: Primary Care Nurse Care Team Related Persons Name: ROSALBA NAIR Name: SINDHU WASHINGTON Insurance Providers Guarantor name: DIAZ TAINA Health Plan Information #: 1 [address]ayer: [facility] C[facility] ALLIANCE/[facility] C[facility] Member Number: NA Policy Number: NA Group Number: NA
--- OUTSIDE RECORDS SUMMARY | 2024-06-26 08:01 | XMS_ITS | Continuity of Care Document ---
Author Organization [facility] Address [address] [place] [address]- Care Team Providers Care Bush And Vine Farmer Fruit Crops Name Role Phone Raghav BURDEN, Martin Quintanilla Primary Care Physician [phone] Encounter [facility] Date(s): 05/12/24 - 06/11/24 [facility] [address] [place] [id number] Attending Physician: Erin Rosado Admitting Physician: Erin Rosado Referring Physician: AdmtrErin Encounter Type: Triage Allergies, Adverse Reactions, Alerts No Known Allergies Immunizations Given and Recorded Vaccine Date Status Refusal Reason SARS-CoV-2 (COVID-19) Ad26 vaccine 12/07/20 Given Medications acamprosate 333 mg oral delayed release tablet 2 tablet = 666 mg, By Mouth, 3 times a day, # 180 tablet, 2 Refills, Maintenance, 05/15/24 4:35:00 PM EST, Tablet, [facility], Partial fill upon patient request [...] ANEMIA, AND TALK TO YOUR PCP / RENAL CASE MANAGER TO RESTART APIXABAN, # 60 tablet, 0 [...] Refills, Maintenance, 05/15/24 4:43:00 PM EST, Tablet, [facility] 3, Partial fill upon patient request [...] :51:00 PM EST, Route to Pharmacy Electronically, [facility], Partial fill upon patient request [...] Care Nurse Name: Mohini Dowd RN Position: [facility] RN Supv Member Role: Primary Care Nurse Name: Byron Rosales RN Position: S RN Member Role: Primary Care Nurse Name: Regi Bacon RN Position: S RN Member Role: Primary Care Nurse Name: Shanique Torrez RN Position: [facility] RN Supv Member Role: Primary Care Nurse Name: Martin Avilez MD Position: [facility] Physician - Primary Care Member Role: PCP Address: [address] [place] [address], [facility] [[email or web address] [address] Telecom: Name: Halima Zapata RN Position: S RN Member Role: Primary Care Nurse Care Team Related Persons Name: ROSALBA NAIR Name: SINDHU WASHINGTON Insurance Providers Guarantor name: DIAZ Shaker Health Plan Information #: 1 Payer: [facility] CARE ALLIANCE/[facility] CARE Member Number: NA Policy Number: NA Group Number: NA
--- OUTSIDE RECORDS SUMMARY | 2024-06-26 08:01 | XMS_ITS | Data Portability ---
Author Organization [employer] Address [address] [place] [address] Care Team Providers Care Information Technology Advisor Name Role Phone HIM CCA OTHER VALORIE GARCÍA Primary Care Provider [phone] Assessment Encounter Date Assessment Date Assessment LastModified by Organization Details LastModified Time 12/05/2023 12/05/2023 I have reviewed and agree with the assessment and plan as documented by the printed circuit layout taper. I provided real time medical direction for this encounter and was immediately available to provide additional phone based assistance as needed. History as noted by printed circuit layout taper. Pt with recent diagnosis of R knee septic arthritis, had knee arthroscopy and wash out performed at [facility] on November 29 and was discharged [...] pt that he needs to return to [facility] today to have orthopedics evaluate his leg. I stress the importance of having his leg evaluated urgently today to rule out worsening infection. We offer to arrange for an ambulance to take him to the ED, but pt prefers to have his sister take him to the [facility] ED today for evaluation. He states he will go there in about an hour. I have called an expect to the asphalt plant worker at the [facility] ED. btils Not [...] Updated DateTime 4 98 % 98 % 625738. 04 g 18 /min 98.2 [degF] 101 /min 104 mm[Hg] 64 mm[Hg] Not Available [facility] - production 4 11:02:34 Social History None recorded. Functional Status None recorded. Mental Status None recorded. Family History Nothing Reported. Medical History No medical history recorded. Past Encounters Encounter ID Performer Location Encounter Start Date Encounter Closed Date Diagnosis/Indication Diagnosis SNOMED-CT Code Diagnosis ICD10 Code [id number] Amadou Baez MD Main - [facility] [address] [place] [phone] 0 12/05/2023 11:02:27 12/06/2023 10:03:23 Cellulitis of right lower limb [id number] L03.115 Health Concerns Section Related Observation LastModified by Organization Detai ls LastModified Time None Recorded Concern Status LastModified by Organization Details LastModified Time None Recorded Advance Directives Directive None Recorded Payers Encounter Date Sequence Insurance Name Policy Number Policy Booth Covered Member ID Booth Member ID Guarantor Name 12/05/2023 1 [facility] - DOS ON OR AFTER 2022 - DUAL ELIGIBLE - SHELTER OPTIONS AND ONE CARE (MEDICARE REPLACEMENT/ADV ANTAGE - HMO) Akash Barboza [id number] Akash Barboza Notes Date Note Type Note Provider Name and Address Organization Details Recorded Time 12/05/2023 text/html This was a supervised home visit with printed circuit layout taper Deon Diaz. CRC Nurse Triage Notes (Claudia [...] .................. .................. .................. .................. .................. .................. ............... Lung Splitter Note From Deon Diaz: Pt co pain and redness in right leg after surgery this past Sunday. Pt on antibiotics and pain management already. Pt denies fever NVD CP sob. Pt sts redness and pain has increased since release. Baseline vitals assessed, area warm to touch ..afebrile. [facility] contacted and advised pt to go to ER today. Pt declined ambulance and sts his sister will take him to [facility]. Pt education on the risks of not going to ER. .................. .................. .................. .................. .................. .................. .................. ............... Disposition: Fulfilled Amadou Baez MD [address] [facility],[address], [place], [address], [place] 12/05/2023 11:58:49
[2024-06-26] MEDS: Albumin Human 25 % 100 ML IV ×3 (08:27→09:21)
[2024-06-26 08:33] LABS: Glucose, Whole Blood 125 mg/dL (60-115)
[2024-06-26] MEDS: Lidocaine HCl 1 % MPF 5 ML VIAL SUBCUT (10:30)
== END 2024-06-26 10:45 | disposition home or self-care (01) ==
PROVIDERS: Physician Assistant Surgical; PCP Internal Medicine; Visit Provider Internal Medicine Gastroenterology
DX: K70.31 Alcoholic cirrhosis of liver with ascites (principal); K72.10 Chronic hepatic failure without coma; I85.00 Esophageal varices without bleeding; K76.6 Portal hypertension; R79.89 Other specified abnormal findings of blood chemistry; K31.89 Other diseases of stomach and duodenum; K21.9 Gastro-esophageal reflux disease without esophagitis; D62 Acute posthemorrhagic anemia; I26.99 Other pulmonary embolism without acute cor pulmonale; E11.9 Type 2 diabetes mellitus without complications; E78.5 Hyperlipidemia, unspecified; F32.A Depression, unspecified; Z79.01 Long term (current) use of anticoagulants; Z79.899 Other long term (current) drug therapy; Z90.49 Acquired absence of other specified parts of digestive tract; Z87.891 Personal history of nicotine dependence; Z56.0 Unemployment, unspecified
CPT/HCPCS: 49083; 82947; J2003; P9047

== ENCOUNTER → 2024-06-26 09:13 | Outpatient (BNV) | payer OTHER, SELFPAY | PROVIDERS: PCP Internal Medicine; Visit Provider Physician Assistant Surgical | DX: R18.8 Other ascites (principal) | CPT/HCPCS: 49083 ==

== ENCOUNTER 2024-07-04 08:53 | Day surgery (SDC) | payer OTHER, SELFPAY ==
--- OUTSIDE RECORDS SUMMARY | 2024-07-03 15:12 | XMS_ITS | Continuity of Care Document ---
Author Organization [facility] ter Address [address] [place] [id number]- Care Team Providers Care Separator Tender Name Role Phone Raghav BURDEN, Martin Quintanilla Primary Care Physician [phone] Encounter [facility] Date(s): 05/14/24 - 06/14/[address] [address] Attending Physician: Jeff Buchanan MD Admitting Physician: Jeff Buchanan MD Referring Physician: Jeff Buchanan MD Encounter Type: Preadmit Daystay Allergies, Adverse Reactions, Alerts No Known Allergies Immunizations Given and Recorded Vaccine Date Status Refusal Reason SARS-CoV-2 (COVID-19) Ad26 vaccine 12/07/20 Given Medications acamprosate 333 mg oral delayed release tablet 2 tablet = 666 mg, By Mouth, 3 times a day, # 180 tablet, 2 Refills, Maintenance, 05/15/24 4:35:00 PM EST, Tablet, [facility], Partial fill upon patient [...] ANEMIA, AND TALK TO YOUR PCP / TRANSPORT TECHNICIAN TO RESTART APIXABAN, # 60 tablet, 0 [...] Refills, Maintenance, 05/15/24 4:43:00 PM EST, Tablet, [facility], Partial fill upon patient request if [...] :51:00 PM EST, Route to Pharmacy Electronically, [facility], Partial fill upon patient request if [...] Care Nurse Name: Shanique Torrez RN Position: [facility] RN Supv Member Role: Primary Care Nurse Name: Martin Avilez MD Position: [facility] Physician - Primary Care Member Role: PCP Address: [address] [place] [address], [facility] [address] Telecom: Name: Halima Zapata RN Position: S RN Member Role: Primary Care Nurse Care Team Related Persons Name: ROSALBA NAIR Name: SINDHU WASHINGTON Insurance Providers Guarantor name: DIAZ TAINA Health Plan Information #: 1 Payer: [employer] Member Number: [id number] Policy Number: NA Group Number: [facility] Health Plan Information #: 2 Payer: [employer] Member Number: [id number] Policy Number: NA Group Number: NA
[2024-07-04] VITALS (7 sets, daily range): BP systolic 116–126; BP diastolic 72–83; PULSE 94; RESP 11–22; TEMP 37.2; O2SAT 98–100; BMI 30.5
--- NOTE | ~2024-07-04 | US_ITS ---
Ultrasound paracentesis History: Ascites. Risks and benefits and possible complications were discussed with the patient and consent form was signed. A safe pocket of ascitic fluid was identified using ultrasound guidance, and the overlying skin was marked. The abdomen prepped and draped in sterile fashion. 1% lidocaine was used as a local anesthetic. Using ultrasound guidance, a 5 fr catheter was placed into the ascitic pocket. 10.0 liters of yellow fluid was removed passively. The catheter was then removed. 75 g of albumin was administered. A few in home sales representative images from before and after the examination were obtained. The procedure was performed by Lenard Sadnra PA-C and supervised by Dr. Jimenez. US/US paracentesis abd w/image Impression: Ultrasound-guided paracentesis as described above. No immediate complications Electronically signed by: Santino Jimenez MD 07/04/2024 03:17 PM [facility] Workstation: [id number]
--- OUTSIDE RECORDS SUMMARY | 2024-07-04 08:59 | XMS_ITS | Data Portability ---
Author Organization [facility] Address [address] [place] [address] Care Team Providers Care Applications Systems Engineer Name Role Phone HIM CCA OTHER VALORIE GARCÍA Primary Care Provider [phone] Assessment Encounter Date Assessment Date Assessment LastModified by Organization Details LastModified Time 12/05/2023 12/05/2023 I have reviewed and agree with the assessment and plan as documented by the tax processor. I provided real time medical direction for this encounter and was immediately available to provide additional phone based assistance as needed. History as noted by tax processor. Pt with recent diagnosis of R knee septic arthritis, had knee arthroscopy and wash out performed at [facility] on November 29 and was discharged [...] pt that he needs to return to [facility] today to have orthopedics evaluate his leg. I stress the importance of having his leg evaluated urgently today to rule out worsening infection. We offer to arrange for an ambulance to take him to the ED, but pt prefers to have his sister take him to the [facility] ED today for evaluation. He states he will go there in about an hour. I have called an expect to the grapple operator at the [facility] ED. btils Not available 12/05/2023 11:27:29 Plan [...] Updated DateTime 4 98 % 98 % 497533. 04 g 18 /min 98.2 [degF] 101 /min 104 mm[Hg] 64 mm[Hg] Not Available [facility] - production 4 11:02:34 Social History None recorded. Functional Status None recorded. Mental Status None recorded. Family History Nothing Reported. Medical History No medical history recorded. Past Encounters Encounter ID Performer Location Encounter Start Date Encounter Closed Date Diagnosis/Indication Diagnosis SNOMED-CT Code Diagnosis ICD10 Code Diagnosis Note [id number] Amadou Baez MD Main - [facility] [address] [place] [phone] 12/05/2023 11:02:27 12/06/2023 10:03:23 Cellulitis of right lower limb [id number] 7007728 L03.115 Health Concerns Section Related Observation LastModified by Organization Detai ls LastModified Time None Recorded Concern Status LastModified by Organization Details LastModified Time None Recorded Advance Directives Directive None Recorded Payers Encounter Date Sequence Insurance Name Policy Number Policy Booth Covered Member ID Booth Member ID Guarantor Name 12/05/2023 1 [facility] - DOS ON OR AFTER 2022 - DUAL ELIGIBLE - CARE HOME OPTIONS AND ONE CARE (MEDICARE REPLACEMENT/ADV ANTAGE - HMO) Akash Barboza [id number] Akash Barboza Notes Date Note Type Note Provider Name and Address Organization Details Recorded Time 12/05/2023 text/html This was a supervised home visit with tax processor Deon Diaz. [facility] Nurse Triage Notes (Claduia Joseph): Reason For Request: knee pain radiating/foot [...] .................. .................. .................. .................. .................. .................. ............... Manager Reimbursement Note From Deon Diaz: Pt co pain and redness in right leg after surgery this past Sunday. Pt on antibiotics and pain management already. Pt denies fever NVD CP sob. Pt sts redness and pain has increased since release. Baseline vitals assessed, area warm to touch ..afebrile. [facility] contacted and advised pt to go to ER today. Pt declined ambulance and sts his sister will take him to [facility]. Pt education on the risks of not going to ER. .................. .................. .................. .................. .................. .................. .................. ............... Disposition: Fulfilled Amadou Baez MD [address] [facility],[address], [place], [address], [facility] 12/05/2023 11:58:49
[2024-07-04] MEDS: Albumin Human 25 % 100 ML IV ×3 (09:42→10:37)
--- NOTE | 2024-07-04 11:33 | PC.NURSE ---
total of 10.10L drained pt viktor well. pt to PACU
[2024-07-04] MEDS: Lidocaine HCl 1 % MPF 5 ML VIAL SUBCUT (11:47)
== END 2024-07-04 12:01 | disposition home or self-care (01) ==
PROVIDERS: Physician Assistant Surgical; PCP Internal Medicine; Visit Provider Internal Medicine Gastroenterology
DX: K70.31 Alcoholic cirrhosis of liver with ascites (principal); D62 Acute posthemorrhagic anemia; E11.9 Type 2 diabetes mellitus without complications; I10 Essential (primary) hypertension; E78.5 Hyperlipidemia, unspecified; C25.9 Malignant neoplasm of pancreas, unspecified; F10.21 Alcohol dependence, in remission; Z86.711 Personal history of pulmonary embolism; Z79.01 Long term (current) use of anticoagulants; Z79.899 Other long term (current) drug therapy
CPT/HCPCS: 49083; J2003; P9047

== ENCOUNTER → 2024-07-04 10:30 | Outpatient (BNV) | payer OTHER, SELFPAY | PROVIDERS: PCP Internal Medicine; Visit Provider Physician Assistant Surgical | DX: R18.8 Other ascites (principal) | CPT/HCPCS: 49083 ==

== ENCOUNTER → 2024-07-09 11:57 | Outpatient (BNV) | payer OTHER, SELFPAY | PROVIDERS: Admitting Provider Internal Medicine Critical Care Medicine; PCP Internal Medicine; Visit Provider Radiology Vascular & Interventional Radiology | DX: K74.69 Other cirrhosis of liver (principal); R18.8 Other ascites | CPT/HCPCS: 37182; 49083 ==

== ENCOUNTER 2024-07-09 17:49 | Inpatient (IN) | payer OTHER, SELFPAY ==
--- NOTE | 2024-07-03 10:22 | HO.ANESPROP2 ---
Documented by User: Pari Arreola NP 07/08/24 13:13 HPI - Anesthesia Eval Consult details Narrative: 58yo M for TIPS, 07/09/23 Previous unsuccessful TIPS at [facility] d/t too small vessels . Case discussed with Dr Castaneda. Cirrhosis. Last paracentesis 07/04/24 with ~ 10L removed No recent illness No CP/SOB with ambulating with cane Hx PE: None on 2023 CTA Follows [facility] pulmo. Stable at 05/2024 office visit [facility] Active Problems Active Problems: All Active Problems (Updated 04/26/24 @ 00:02 by Zohra Cuevas) Acute blood loss anemia (Acute) Bilateral knee pain (Acute) Alcoholic cirrhosis of liver with ascites (Acute) Lung mass (Acute) Upper GI bleeding (Acute) Pancreatic malignant neoplasm (Acute) Diarrhea (Acute) Retroperitoneal mass (Acute) Non-compliance (Acute) Cellulitis (Acute) Septic arthritis of knee, right (Acute) Septic arthritis of knee, right (Acute) Swelling of right knee joint (Acute) Septic arthritis of knee, right (Acute) Abnormal gastrointestinal PET scan (Acute) Pulmonary nodule 1 cm or greater in diameter (Acute) Gallbladder polyp (Acute) Nausea (Acute) Pleural effusion (Acute) Shortness of breath (Acute) Anemia (Acute) Varices of esophagus determined by endoscopy (Acute) Ascites (Acute) Newly diagnosed diabetes (Acute) 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 (Acute) Acute pancreatitis (Acute) Blood D-dimer assay positive (Acute) Dyspnea (Acute) Pericardial effusion (Acute) Alcohol use disorder, moderate, in early remission (Acute) Hyperammonemia (Acute) Hepatopulmonary syndrome (Acute) Bronchopneumonia (Acute) Hydrothorax (Acute) Alcoholic cirrhosis of liver (Acute) Portal vein thrombosis (Acute) Alcohol withdrawal (Acute) Elevated liver function tests (Acute) Irritable bowel syndrome with diarrhea (Acute) Pleural effusion (Acute) Acute alcoholic pancreatitis (Acute) Neuropathic pain (Acute) Multiple adenomatous polyps (Acute) Degenerative disc disease, cervical (Acute) Chronic low back pain (Acute) Spinal stenosis (Acute) Pulmonary embolism, bilateral (Acute) Pleuritic chest pain (Acute) Recurrent left pleural effusion (Acute) Pleural effusion (Acute) Pericardial effusion (Acute) Tachycardia (Acute) Dyspnea (Acute) Past Medical History Medical History (Updated 07/03/24 @ 10:34 by Sugar Biggs RN) Septic arthritis Hx of transfusion of packed red blood cells Umbilical hernia Anxiety Pulmonary nodule 1 cm or greater in diameter Pleuritic chest pain Pulmonary embolism, bilateral Cirrhosis of liver Diabetes Alcohol use disorder, moderate, dependence Recurrent left pleural effusion Pleural effusion Pericardial effusion Tachycardia Dyspnea Hydropneumothorax Pleural effusion on right Decompensation of cirrhosis of liver Cirrhosis GERD (gastroesophageal reflux disease) Esophageal varices Chronic abdominal pain Gout Peripheral neuropathy Alcoholism Elevated LFTs Family History Family History Mother Cancer Sister Cancer Family history of problems with anesthesia: No Surgical History Surgical History (Updated 07/03/24 @ 10:35 by Sugar Biggs RN) History of carpal tunnel surgery of left wrist S/P right knee arthroscopy History of abdominal paracentesis Hx of esophagogastroduodenoscopy History of thoracentesis H/O colonoscopy H/O cervical spine surgery H/O hemicolectomy History of Problems with Anesthesia: No Social History Social History Household Members: Other Household Members Other:: 1 Housing: Apartment Are you a primary day care worker to a significant other at home: No Do you presently have visiting nurse or other home services: No Alcohol intake: current Alcohol intake frequency: a few times a week Alcohol type: beer Comment: counts correct Patient Tobacco Use Status: Never used Tobacco Tobacco use type: Smokeless Tobacco Years Smoked: 35 e-Cigarette/Vaping Use: Currently Using Second Hand Smoke Exposure: No Substance Use Type: Marijuana Advance Directives: No Advance Directives Information Provided: Yes Advance Directives Date on File: 11/27/22 service: No Current occupational status: unemployed Meds Allergies Allergy/AdvReac Type Severity Reaction Status Date / Time No Known Drug Allergies Allergy Mild NONE Verified 07/04/24 09:35 [NO KNOWN DRUG ALLERGIES] Home Medications ?Medication ?Instructions ?Recorded ?Confirmed ?Last Taken ?Type folic acid 1 mg tablet 1 mg PO DAILY 06/10/21 07/04/24 04/16/24 History thiamine HCl (vitamin B1) 100 mg 100 mg PO DAILY 06/10/21 07/04/24 04/16/24 History tablet hydroxyzine pamoate 25 mg capsule 50 mg PO DAILY PRN itching 01/26/22 07/04/24 04/16/24 History lorazepam 0.5 mg tablet 0.5 mg PO DAILY PRN anxiety attack 07/13/22 07/04/24 04/16/24 History oxycodone 5 mg tablet 5 mg PO BID PRN Pain 03/31/24 07/04/24 04/16/24 History albuterol sulfate 90 mcg/actuation 2 puff inhalation Q6H PRN 04/18/24 07/04/24 04/16/24 History aerosol inhaler Shortness Of Breath Or Wheezing gabapentin 300 mg capsule 300 mg PO DAILY 06/03/24 07/04/24 Unknown History furosemide 40 mg tablet 40 mg PO BID 07/03/24 07/04/24 Unknown History spironolactone 100 mg tablet 100 mg PO BID 07/03/24 07/04/24 Unknown History Exam Pertinent Lab Results Pertinent Lab Results: Lab Results 07/03/24 Range/Units 11:15 WBC 3.6 L (4.8-10.8) X10*3/uL RBC 3.66 L (4.60-5.80) X10*6/uL Hgb 9.1 L (14.0-18.0) g/dl Hct 29.6 L (42.0-52.0) % MCV 80.9 (80.0-98.0) fL MCH 24.9 L (27.0-33.0) pg MCHC 30.7 L (31.0-36.0) g/dl RDW 18.3 H (11.0-16.0) % Plt Count 198 (160-400) X10*3/uL MPV 8.2 L (9.4-12.4) fL Absolute Nucleated RBC 0.000 (0.0-0.012) X10*3/uL Nucleated RBC % (auto) 0.0 (0.0-0.2) /100WBC PT 13.7 H (10.9-12.4) SEC INR 1.2 H (0.9-1.1) APTT 31.5 (26.0-36.8) SEC Sodium 137 (135-145) mmol/L Potassium 4.8 (3.3-5.1) mmol/L Chloride 105 (96-108) mmol/L Carbon Dioxide 29 (22-29) mmol/L Anion Gap 8 L (12-20) BUN 8 L (9-16) mg/dL Creatinine 0.70 (0.5-1.4) mg/dL Estim Creat Clear Calc 167.1 Estimated GFR > 60 Random Glucose 114 (60-115) mg/dL Calcium 8.5 (8.4-10.2) mg/dL Total Bilirubin 1.1 H (0.0-1.0) mg/dL AST 42 H (5-37) U/L ALT 14 (0-40) U/L Alkaline Phosphatase 204 H (39-117) U/L Total Protein 6.9 (6.5-8.0) g/dL Albumin 3.1 L (3.5-5.0) g/dL Narrative Narrative: EKG 01/2024 Vent. Rate : 111 BPM Atrial Rate : 111 BPM P-R Int : 166 ms QRS Dur : 076 ms QT Int : 352 ms P-R-T Axes : 054 043 041 degrees QTc Int : 478 ms Sinus tachycardia Cannot rule out Anterior infarct , age undetermined Abnormal ECG When compared with ECG of 09-APR-2023 07:05, No significant change was found ECHO 2023 Summary The right ventricle is normal in size and function. The left ventricular size is normal. Left ventricular wall thickness is normal. The LV systolic function is normal . The left ventricular ejection fraction is 60-65 %. There are no regional wall motion abnormalities. Grade I, mild diastolic dysfunction with impaired LV relaxation, which may be normal for the patient's age. There is no hemodynamically significant valvular disease. CT angio chest PE protocol 2023 IMPRESSION: No evidence of PE. No evidence of aortic aneurysm or dissection. Left lower lobe consolidation with pleural effusion. Solitary nodule, new in the lingula, suspicious. Recommend ultrasound-guided diagnostic left thoracentesis. VTE: negative Assessment and Plan Assessment Anesthesia Assessment: Anesthesia Plan Discussed and PAT Visit Final Anesthetic Review Family History of Problems with Anesthesia: No History of Problems with Anesthesia: No Documented by User: Miri Ram MD 07/09/24 11:00 [facility] Past Medical History Medical History (Updated 07/03/24 @ 10:34 by Sugar Biggs RN) Septic arthritis Hx of transfusion of packed red blood cells Umbilical hernia Anxiety Pulmonary nodule 1 cm or greater in diameter Pleuritic chest pain Pulmonary embolism, bilateral Cirrhosis of liver Diabetes Alcohol use disorder, moderate, dependence Recurrent left pleural effusion Pleural effusion Pericardial effusion Tachycardia Dyspnea Hydropneumothorax Pleural effusion on right Decompensation of cirrhosis of liver Cirrhosis GERD (gastroesophageal reflux disease) Esophageal varices Chronic abdominal pain Gout Peripheral neuropathy Alcoholism Elevated LFTs Family History Family History Mother Cancer Sister Cancer Surgical History Surgical History (Updated 07/03/24 @ 10:35 by Sugar Biggs RN) History of carpal tunnel surgery of left wrist S/P right knee arthroscopy History of abdominal paracentesis Hx of esophagogastroduodenoscopy History of thoracentesis H/O colonoscopy H/O cervical spine surgery H/O hemicolectomy Social History Social History Household Members: Other Household Members Other:: 1 Housing: Apartment Are you a primary day care worker to a significant other at home: No Do you presently have visiting nurse or other home services: No Alcohol intake: current Alcohol intake frequency: a few times a week Alcohol type: beer Comment: counts correct Patient Tobacco Use Status: Never used Tobacco Tobacco use type: Smokeless Tobacco Years Smoked: 35 e-Cigarette/Vaping Use: Currently Using Second Hand Smoke Exposure: No Substance Use Type: Marijuana Advance Directives: No Advance Directives Information Provided: Yes Advance Directives Date on File: 11/27/22 service: No Current occupational status: unemployed Meds Allergies Allergy/AdvReac Type Severity Reaction Status Date / Time No Known Drug Allergies Allergy Mild NONE Verified 07/04/24 09:35 [NO KNOWN DRUG ALLERGIES] Home Medications ?Medication ?Instructions ?Recorded ?Confirmed ?Last Taken ?Type folic acid 1 mg tablet 1 mg PO DAILY 06/10/21 07/04/24 04/16/24 History thiamine HCl (vitamin B1) 100 mg 100 mg PO DAILY 06/10/21 07/04/24 04/16/24 History tablet hydroxyzine pamoate 25 mg capsule 50 mg PO DAILY PRN itching 01/26/22 07/04/24 04/16/24 History lorazepam 0.5 mg tablet 0.5 mg PO DAILY PRN anxiety attack 07/13/22 07/04/24 04/16/24 History oxycodone 5 mg tablet 5 mg PO BID PRN Pain 03/31/24 07/04/24 04/16/24 History albuterol sulfate 90 mcg/actuation 2 puff inhalation Q6H PRN 04/18/24 07/04/24 04/16/24 History aerosol inhaler Shortness Of Breath Or Wheezing gabapentin 300 mg capsule 300 mg PO DAILY 06/03/24 07/04/24 Unknown History furosemide 40 mg tablet 40 mg PO BID 07/03/24 07/04/24 Unknown History spironolactone 100 mg tablet 100 mg PO BID 07/03/24 07/04/24 Unknown History Exam Airway Mallampati Class: III TM Dist: >3cm Neck ROM: Full Other: Ascites Assessment and Plan Assessment Anesthesia Assessment: Chart Reviewed Final Anesthetic Review NPO: Yes ASA Class: IV Final Preanesthetic Review: No Changes in Pt Med Stat, Meds/Allgs Chart Reviewed, Consent Obtained/Reviewed, Anes Risks/Benef Reviewed and DNR Form (If Appl.) Patient Risk: High Procedure Risk: Intermediate Anesthetic Plan Anesthetic Plan: GA Disposition: Standard PACU
[2024-07-03 10:45] VITALS: BP 115/73; PULSE 91; RESP 18; O2SAT 96; BMI 30.6
[2024-07-03 11:22] LABS: Hematocrit 29.6 % (42.0-52.0); Hemoglobin 9.1 g/dl (14.0-18.0); Mean Corpuscular HGB Conc 30.7 g/dl (31.0-36.0); Mean Corpuscular Hemoglobin 24.9 pg (27.0-33.0); Mean Corpuscular Volume 80.9 fL (80.0-98.0); Mean Platelet Volume 8.2 fL (9.4-12.4); Platelet Count 198 X10*3/uL (160-400); Red Blood Count 3.66 X10*6/uL (4.60-5.80); Red Cell Distribution Width 18.3 % (11.0-16.0); White Blood Count 3.6 X10*3/uL (4.8-10.8)
[2024-07-03 11:29] LABS: INTERNATIONAL NORM RATIO 1.2 (0.9-1.1); Prothrombin Time 13.7 SEC (10.9-12.4)
[2024-07-03 11:31] LABS: Partial Thromboplastin Time 31.5 SEC (26.0-36.8)
[2024-07-03 12:22] LABS: Alanine Aminotransferase 14 U/L (0-40); Albumin Level 3.1 g/dL (3.5-5.0); Alkaline Phosphatase 204 U/L (39-117); Anion Gap 8 (12-20); Aspartate Amino Transferase 42 U/L (5-37); Bilirubin Total 1.1 mg/dL (0.0-1.0); Blood Urea Nitrogen 8 mg/dL (9-16); Calcium 8.5 mg/dL (8.4-10.2); Carbon Dioxide 29 mmol/L (22-29); Chloride 105 mmol/L (96-108); Creatinine Clr Calc Pharmacy 167.1; Estimated Glomerular Filt Rate > 60; Glucose Random 114 mg/dL (60-115); Potassium 4.8 mmol/L (3.3-5.1); Sodium 137 mmol/L (135-145); Total Protein 6.9 g/dL (6.5-8.0)
[2024-07-09] VITALS (7 sets, daily range): BP systolic 113–140; BP diastolic 51–82; PULSE 82–106; RESP 13–27; TEMP 36.7–36.8; O2SAT 95–99; BMI 28.7
--- NOTE | ~2024-07-09 | IR_ITS ---
History: Patient with cirrhotic liver and history of hepatocellular hydrothorax, ascites, and hemorrhagic varices. The patient is not actively bleeding. He presents for a TIPS. He had a failed prior attempt at [facility]. Procedures performed: 1. Ultrasound-guided paracentesis. 2. Ultrasound guided percutaneous catheterization of the splenic vein with selective venography and subsequent catheterization of the main and right portal veins with selective venography in each. 3. From the trans-splenic access, placement of a tri-loop snare as a target for TIPS procedure. 4. Ultrasound-guided catheterization of the right internal jugular vein. 5. Catheterization of the right hepatic vein with selective venography. 6. Catheterization of the right portal vein using a Scorpion X portal venous access needle. 7. Measurement of a pre-TIPS portosystemic gradient. 8. Deployment of two Viatorr stent grafts as a TIPS. 9. Sequential balloon dilatation of the deployed TIPS with portovenography and measurement of a portosystemic gradient after each balloon dilatation. 10. Gelfoam embolization of the transsplenic access. Physician: Genevieve Salazar MD FS Anesthesia: General. See anesthesiologist note. At the transcolonic percutaneous access site, 9 mL of 1% lidocaine was administered. At the right internal jugular vein access site, an additional 8 mL of 1% lidocaine was administered. 5 mL of 1% lidocaine was used for the paracentesis. The patient was positioned supine on the ultrasound examination table. Ultrasound showed moderate to large volume ascites. An appropriate access site in the left abdomen was marked. 1% lidocaine was administered here for local anesthesia. A small incision was made with a #11 blade. Through the incision, a 5 [place] ESILLAGEeh catheter was advanced into the peritoneal cavity. Approximately 7 L of yellow fluid was aspirated. Follow-up ultrasound showed minimal residual fluid. The paracentesis catheter was left in place to monitor for bleeding during the TIPS procedure. Next, the patient was brought to the angiography suite and placed on the table. General anesthesia was induced. The left abdomen was prepped and draped. Ultrasound showed a normal appearance of the spleen with hepatofugal flow in the splenic vein. 1% lidocaine was injected subcutaneously. A small incision was made in the skin with a #11 blade. Through the incision and under ultrasound guidance, an AccuStick needle was used to catheterize the splenic vein through the parenchyma of the spleen. An injection of contrast confirmed a normal appearance of the splenic vein. Using the Seldinger technique, a 6 [place] sheath was placed. We then catheterized the main portal vein and subsequently the right portal vein with selective venography performed in each showing hepatopetal blood flow within the portal venous vasculature and a varix emanating from the left gastric vein. We placed an Argon tri-loop snare in the right portal vein as a target. This was done given that prior attempts at the TIPS at [facility] failed and from preprocedural imaging, we knew that this would be a difficult TIPS given the very small size of the liver and its fibrotic nature. The snare was secured in place. Ultrasound of the right internal jugular vein showed wide patency of the vein. 1% lidocaine was injected subcutaneously and extended the vein. A small incision was made in the skin with a #11 blade. Through the incision and under ultrasound guidance with permanent recordings and direct visualization of needle entry into the vein, the right internal jugular vein was catheterized in an antegrade fashion. From here, a multipurpose catheter was used to catheterize the right atrium and subsequently the right hepatic vein was selected with venography confirming appropriate catheter location. The catheter position in the right hepatic vein was verified with a steep TORRE oblique image. We then exchanged for an Amplatz wire over which we delivered the 10 [place] x 40 cm Cook Flexor sheath. Through the sheath, the Argon Scorpion X needle was advanced. We chose the Scorpion X because of its unique steerability and excellent visualization properties. We then used it to cannulate the right portal vein using the snare as a target. This required three passes. We then threaded a stiff Glidewire centrally. We exchanged for a stiff Amplatz wire. We removed the Scorpion X and predilated the track with a 7 x 40 mm EV3 balloon. We obtained a pre-TIPS portosystemic gradient. The pre-portosystemic gradient was 22 mmHg. Next, we deployed a Viatorr stent graft with a maximal diameter of 8-10 mm. The stent graft has a 2 cm uncovered length and a 7 cm covered length. We needed a longer stent, but this was not available so we extended it with an additional Viatorr with a maximal diameter of 8-10 mm and a 2 cm uncovered length and a 5 cm covered length. The stent grafts overlap by approximately 4 cm. The two stent grafts were then angioplastied to 7 mm with the EV3 balloon, but the portosystemic gradient was still very high, close to 16 mmHg. Additional angioplasty was performed with an 8 mm Athletis balloon, which brought the gradient down to 6 mmHg. Portography after the balloon inflations demonstrated preferential flow into the TIPS. There was sluggish blood flow still within the aforementioned varix. At this point, we had been in the procedure for a prolonged period of time. I elected to defer embolization at this time since he is not bleeding and I want to first assess how he is handling the TIPS and whether or not there is any evidence of encephalopathy. This may require embolization or modification of the diameter at a later date. The transplenic access was removed and a Gelfoam slurry was used along the tract. The right internal jugular vein sheath was removed and hemostasis was obtained with manual pressure alone. Summary: Successful, but challenging TIPS procedure. We used a transplenic access to create a portal venous target with placement of a snare. The strategy worked and there is a successful TIPS in place. The preportosystemic gradient was 22 mmHg and the final portosystemic gradient was 6 mmHg. We are going to monitor the patient carefully for encephalopathy. There is sluggish filling of the patient's varix emanating from the left gastric vein but there is no active bleeding at this time. This may require embolization, but we will first assess how he is handling the TIPS with respect to encephalopathy and coordinate further care with gastroenterology. Electronically signed by: Darrion Salazar MD 07/09/2024 05:20 PM SHERRY SEGOVIA
[2024-07-09 10:21] LABS: Amphetamine Screen Urine Not Detected (Not Detect); Barbiturates, Urine Not Detected (Not Detect); Benzodiazepines Screen Urine Not Detected (Not Detect); Buprenorphine Scr Not Detected (Not Detect); Cannabinoid Screen Urine POSITIVE (Not Detect); Cocaine Screen Urine Not Detected (Not Detect); Fentanyl, urine Not Detected (Not Detect); Methadone Screen, Urine Not Detected (Not Detect); Opiate Screen Urine Not Detected (Not Detect); Oxycodone Screen Urine Positive (Not Detect); Phencyclidine Screen Urine Not Detected (Not Detect)
[2024-07-09 10:44] LABS: Hematocrit 30.5 % (42.0-52.0); Hemoglobin 9.5 g/dl (14.0-18.0); Mean Corpuscular HGB Conc 31.1 g/dl (31.0-36.0); Mean Corpuscular Hemoglobin 25.1 pg (27.0-33.0); Mean Corpuscular Volume 80.7 fL (80.0-98.0); Mean Platelet Volume 8.7 fL (9.4-12.4); Platelet Count 172 X10*3/uL (160-400); Red Blood Count 3.78 X10*6/uL (4.60-5.80); Red Cell Distribution Width 17.6 % (11.0-16.0); White Blood Count 3.9 X10*3/uL (4.8-10.8)
[2024-07-09 10:50] LABS: Anion Gap 12 (12-20); Carbon Dioxide 24 mmol/L (22-29); Chloride 105 mmol/L (96-108); Potassium 4.5 mmol/L (3.3-5.1); Sodium 136 mmol/L (135-145)
[2024-07-09] MEDS: Albumin Human 25 % 100 ML IV ×3 (11:08→12:53)
[2024-07-09] MEDS: Lactated Ringers 1,000 ML 50 ML IVCONT (11:09)
--- NOTE | 2024-07-09 12:52 | MHC.SHP ---
Pre-Procedural Eval Section A - 24 Hr Update-Section A only Date of Service: 07/09/24 Section B - Complete if H&P > 30 days Chief Complaint: Esophageal varices without bleeding Details of Present Illness: 58 y/o man with decompensated cirrhosis due to alcohol abuse who requires frequent large volume paracentesis (10L). GI requests a TIPS Relevant Family History (Specify if Yes): No Relevant Social History: Alcohol Use Present Medications: see Short Stay Collaborative assessment Medical History: Significant History History of Previous Operations: Relevant previous surgery/procedure and date(s) Allergies: Allergies Allergy/AdvReac Type Severity Reaction Status Date / Time No Known Drug Allergies Allergy Mild NONE Verified 07/09/24 11:46 [NO KNOWN DRUG ALLERGIES] Review of Systems Sugical H&P ROS: Negative: Constitution, Cardiovascular and Respiratory and Yes, Specify: Gastrointestinal (abd distension from ascites) Exam Surgical H&P Exam: Normal: Heart, Normal: Lungs and Normal: Neurological and Significant Findings: Abdomen (soft, protuberant) and Significant Findings: Skin (abdominal wall varices) Plan 58 y/o man with decompensated cirrhosis due to alcohol abuse who requires frequent large volume paracentesis (10L). -TIPS -Paracentesis pre-procedure Time Spent With Patient Time: Total time managing care of this patient today ____ minutes.
[2024-07-09 17:01] LABS: Glucose, Whole Blood 115 mg/dL (60-115)
[2024-07-09] MEDS: ondansetron HCL 4 MG/2 ML VIAL IVPUSH (17:50)
--- NOTE | 2024-07-09 18:05 | PM.CCHP ---
History of Present Illness Date of Service: 07/09/24 <Saray Antonio MD - Last Filed: 07/09/24 18:13> Attending physician on admission: Saray Antonio <Saray Antonio MD - Last Filed: 07/09/24 18:13> Chief Complaint: s/p TIPS <Saray Antonio MD - Last Filed: 07/09/24 18:13> Patient is a 58 Y M w/ diabetes mellitus, alcohol misuse c/b cirrhosis, esophageal varices c/b upper GI bleed, ascites, colon cancer s/p terminal ileal resection and R hemicolectomy, pancreatic cancer, pulmonary embolism on apixaban, presenting on 07/09 for elective TIPS <Saray Antonio MD - Last Filed: 07/09/24 18:13> Review of Systems Review of Systems: Yes all other systems are reviewed and are negative <Saray Antonio MD - Last Filed: 07/09/24 18:13> PMFSH Past Medical History Medical History: Medical History (Updated 07/09/24 @ 18:12 by Saray Antonio MD) Cirrhosis of liver Septic arthritis Hx of transfusion of packed red blood cells Umbilical hernia Anxiety Pulmonary nodule 1 cm or greater in diameter Pleuritic chest pain Pulmonary embolism, bilateral Diabetes Alcohol use disorder, moderate, dependence Recurrent left pleural effusion Pleural effusion Pericardial effusion Tachycardia Dyspnea Hydropneumothorax Pleural effusion on right Decompensation of cirrhosis of liver Cirrhosis GERD (gastroesophageal reflux disease) Esophageal varices Chronic abdominal pain Gout Peripheral neuropathy Alcoholism Elevated LFTs <Saray Antonio MD - Last Filed: 07/09/24 18:13> Family History Family History: Family History Mother Cancer Sister Cancer <Saray Antonio MD - Last Filed: 07/09/24 18:13> Surgical History Surgical History: Surgical History (Updated 07/09/24 @ 18:12 by Saray Antonio MD) History of carpal tunnel surgery of left wrist S/P right knee arthroscopy History of abdominal paracentesis Hx of esophagogastroduodenoscopy History of thoracentesis H/O colonoscopy H/O cervical spine surgery H/O hemicolectomy <Saray Antonio MD - Last Filed: 07/09/24 18:13> Social History Social History: Social History Household Members: Other Household Members Other:: roommate Housing: Apartment Are you a primary rn acute care to a significant other at home: No Do you presently have visiting nurse or other home services: No Alcohol intake: current Alcohol intake frequency: a few times a week Alcohol type: beer Comment: counts correct Patient Tobacco Use Status: Never used Tobacco Tobacco use type: Smokeless Tobacco Years Smoked: 35 e-Cigarette/Vaping Use: Currently Using Second Hand Smoke Exposure: No Use of substances other than those prescribed or required for medical reasons: Yes Substance Use Type: Marijuana Substance Use Type Other:: vape Substance Use Frequency: Monthly Currently Displaying Signs/Symptoms of Drug Intoxication Withdrawal: No Have you been hit, kicked, punched, or otherwise hurt by someone within the past year? If so, by whom?: No Do you feel safe in your current relationship?: No Current Relationship Is there a partner from a previous relationship who is making you feel unsafe now?: No Are you made to feel afraid or neglected: No Are you DNR?: No Advance Directives: Yes Advance Directives Information Provided: No Advance Directives on File: Yes Advance Directives Date on File: 12/03/23 Do you have a plan to hurt others: No Plan Recently lost weight without trying: No Eating poorly because of decreased appetite: No Nutrition Risks: Dental problems and Diabetes new onset/Uncontrolled Poor oral hygiene: Yes (missing teeth) service: No Current occupational status: unemployed <Saray Antonio MD - Last Filed: 07/09/24 18:13> Meds Allergies/Adverse reactions: Allergies Allergy/AdvReac Type Severity Reaction Status Date / Time No Known Drug Allergies Allergy Mild NONE Verified 07/09/24 11:46 [NO KNOWN DRUG ALLERGIES] <Saray Antonio MD - Last Filed: 07/09/24 18:13> Active Medications: Current Medications Acetaminophen (Acetaminophen 325 Mg Tablet) 650 mg PO Q6H PRN PRN Reason: Pain, Mild 1-3,fever,headache Albuterol Sulfate (Albuterol Sulfate 90 Mcg 8 Gm Inhaler) 2 puff INHALE Q6H PRN PRN Reason: Shortness Of Breath Or Wheezing Calcium Carbonate (Calcium Carbonate 750 Mg Tab.Chew) 750 mg PO Q4H PRN PRN Reason: Heartburn Ferrous Sulfate (Ferrous Sulfate 324 Mg Tablet.Dr) 324 mg PO DAILY [facility] Folic Acid (Folic Acid 1 Mg Tablet) 1 mg PO DAILY [facility] Furosemide (Furosemide 40 Mg Tablet) 40 mg PO BID@0900,1800 [facility]; Protocol Gabapentin (Gabapentin 300 Mg Capsule) 300 mg PO DAILY [facility] Hydroxyzine HCl (Hydroxyzine Hcl 50 Mg Tablet) 50 mg PO DAILY PRN PRN Reason: itching Lactulose (Lactulose 20 Gm/30 Ml Solution) 30 gm PO BID [facility] Lorazepam (Lorazepam 0.5 Mg Tablet) 0.5 mg PO DAILY PRN PRN Reason: anxiety attack Magnesium Hydroxide (Milk Of Magnesia 30 Ml Oral.Susp) 30 ml PO DAILY PRN PRN Reason: Constipation Naloxone HCl (Naloxone Hcl 0.4 Mg/Ml Vial) 0.04 mg IVPUSH Q5M PRN PRN Reason: Excessive sedation or RR < 8 Ondansetron HCl (Ondansetron Hcl 4 Mg/2 Ml Vial) 4 mg IVPUSH Q8H PRN PRN Reason: Nausea and Vomiting Last Admin: 07/09/24 17:50 Dose: 4 mg Sodium Chloride (0.9 % Sodium Chloride Flush 3 Ml Syringe) 3 [facility] Thiamine HCl (Thiamine Hcl 100 Mg Tablet) 100 mg PO DAILY [facility] <Saray Antonio MD - Last Filed: 07/09/24 18:13> Home medications: Home Medications ?Medication ?Instructions ?Recorded ?Confirmed ?Last Taken ?Type folic acid 1 mg tablet 1 mg PO DAILY 06/10/21 07/04/24 07/08/24 History thiamine HCl (vitamin B1) 100 mg 100 mg PO DAILY 06/10/21 07/04/24 07/08/24 History tablet hydroxyzine pamoate 25 mg capsule 50 mg PO DAILY PRN itching 01/26/22 07/04/24 04/16/24 History lorazepam 0.5 mg tablet 0.5 mg PO DAILY PRN anxiety attack 07/13/22 07/04/24 04/16/24 History oxycodone 5 mg tablet 5 mg PO BID PRN Pain 03/31/24 07/04/24 07/08/24 History albuterol sulfate 90 mcg/actuation 2 puff inhalation Q6H PRN 04/18/24 07/04/24 04/16/24 History aerosol inhaler Shortness Of Breath Or Wheezing gabapentin 300 mg capsule 300 mg PO DAILY 06/03/24 07/04/24 07/09/24 07:00 History furosemide 40 mg tablet 40 mg PO BID 07/03/24 07/04/24 07/08/24 History spironolactone 100 mg tablet 100 mg PO BID 07/03/24 07/04/24 07/08/24 History bupropion HCl 300 mg 24 hr tablet, 300 mg PO DAILY 07/09/24 07/09/24 Unknown History extended release paroxetine HCl 20 mg tablet 20 mg PO DAILY 07/09/24 07/09/24 Unknown History rifaximin 550 mg tablet (Xifaxan) 550 mg PO BID 07/09/24 07/09/24 Unknown History ropinirole 0.25 mg tablet 0.25 - 0.5 mg PO DAILY PRN 07/09/24 07/09/24 Unknown History restless legs <Saray Antonio MD - Last Filed: 07/09/24 18:13> Physical Exam Vital Signs: Vital Signs: Last Vital Signs Temp 98.0 F 07/09/24 10:40 Pulse 87 07/09/24 18:00 Resp 16 07/09/24 18:00 BP 131/77 07/09/24 18:00 Pulse Ox 96 07/09/24 18:00 O2 Del Method Nasal Cannula 07/09/24 18:00 O2 Flow Rate 2 07/09/24 18:00 BMI result Body Mass Index 28.7 <Saray Antonio MD - Last Filed: 07/09/24 18:13> ?General:? Alert oriented x3 no acute distress. Following all commands. ?HEENT:? Head is normocephalic, atraumatic, pupils equal round reactive to light accommodation bilaterally.? Extraocular movements appear intact.? Buccal mucosa is dry, Neck is supple ?Cardiac:? Clear S1-S2, no murmurs rubs or gallops. ?Pulmonary:? Clear to auscultation, no wheezes, rales or rhonchi. ?Abdomen:? ?Abdomen distended, semi firm non-tender, Drain on LLQ. Normal bowel sounds. ?Musculoskeletal:? Moving all 4 extremities upon request a major joints, there is no crepitus or tenderness.? The strength is 5/5 bilaterally and throughout all 4 extremities.? Gait not assessed at this point. ?Neurologic:? cranial nerves 2-12 are grossly intact.? No focal deficits noted.Motor strength as above.?? ?Skin:? BLE trace edema. Intact, no lesions,, clubbing or cyanosis.? No ulcers. Vascular:? 2+ pulses upper and lower extremities distally.? <Richard Reynolds NP - Last Filed: 07/09/24 19:47> Results Labs CBC and Chem 7: 07/09/24 18:10 07/09/24 18:10 <Saray Antonio MD - Last Filed: 07/09/24 18:13> Labs: Laboratory Results - last 24 hr 07/09/24 07/09/24 07/09/24 10:00 10:31 11:41 MCV 80.7 MCH 25.1 L MCHC 31.1 RDW 17.6 H Plt Count 172 MPV 8.7 L Absolute Nucleated RBC 0.000 Nucleated RBC % (auto) 0.0 Anion Gap 12 POC Glucose 115 Urine Opiates Screen Not Detected Ur Buprenorphine Scrn Not Detected Ur Oxycodone Screen Positive H Urine Methadone Screen Not Detected Urine Fentanyl Screen Not Detected Ur Barbiturates Screen Not Detected Ur Phencyclidine Scrn Not Detected Ur Amphetamines Screen Not Detected U Benzodiazepines Scrn Not Detected Urine Cocaine Screen Not Detected U Marijuana (THC) Screen POSITIVE H Blood Type A Positive Antibody Screen NEGATIVE <Saray Antonio MD - Last Filed: 07/09/24 18:13> Assessment and Plan (1) S/P TIPS (transjugular intrahepatic portosystemic shunt): Status: Acute <Saray Antonio MD - Last Filed: 07/09/24 18:13> (2) Cirrhosis of liver: Status: Acute <Saray Antonio MD - Last Filed: 07/09/24 18:13> Patient is a 58 Y M w/ diabetes mellitus, alcohol misuse c/b cirrhosis, esophageal varices c/b upper GI bleed, ascites, colon cancer s/p terminal ileal resection and R hemicolectomy, pancreatic cancer, pulmonary embolism on apixaban, presenting on 07/09 for elective TIPS N: no acute issues; empiric lactulose CV: no acute issues R: no acute issues GI: NPO; advance diet as tolerated : no acute issues H: chronic anemia; transfuse Hb <7, PLT <100 ID: no acute issues E: diabetes mellitus; insulin?sliding scale P: active alcohol misuse; addiction medicine <Saray Antonio MD - Last Filed: 07/09/24 18:13>
[2024-07-09 18:31] LABS: MANUAL DIFF FLAG NO
[2024-07-09 18:33] LABS: Eosinophils Percent Auto 0.3 % (0-4); Hematocrit 28.9 % (42.0-52.0); Hemoglobin 8.9 g/dl (14.0-18.0); Imm Gran Abs Auto 0.01 X10*3/uL (0.00-0.03); Imm Gran Pct Auto 0.3 % (0.0-0.4); Lymphocytes Absolute Auto 0.2 X10*3/uL (1.2-4.9); Lymphocytes Percent Auto 6.3 % (20-40); Mean Corpuscular HGB Conc 30.8 g/dl (31.0-36.0); Mean Corpuscular Hemoglobin 25.2 pg (27.0-33.0); Mean Corpuscular Volume 81.9 fL (80.0-98.0); Mean Platelet Volume 8.6 fL (9.4-12.4); Monocytes Absolute Auto 0.1 X10*3/uL (0.1-1.2); Monocytes Percent Auto 3.5 % (2-11); Neutrophils Absolute Auto 2.8 x10*3/uL (2.0-8.3); Neutrophils Percent Auto 88.6 % (45-73); Platelet Count 163 X10*3/uL (160-400); Red Blood Count 3.53 X10*6/uL (4.60-5.80); Red Cell Distribution Width 17.2 % (11.0-16.0); White Blood Count 3.2 X10*3/uL (4.8-10.8)
--- NOTE | 2024-07-09 18:41 | PHA.MEDREC ---
Pharmacy Consult ? Medication Reconciliation Pharmacy has completed the medication reconciliation.
[2024-07-09 18:53] LABS: Anion Gap 8 (12-20); Blood Urea Nitrogen 10 mg/dL (9-16); Calcium 8.3 mg/dL (8.4-10.2); Carbon Dioxide 25 mmol/L (22-29); Chloride 107 mmol/L (96-108); Creatinine Clr Calc Pharmacy 145.6; Estimated Glomerular Filt Rate > 60; Glucose Random 144 mg/dL (60-115); Phosphorus 3.5 mg/dL (2.7-4.5); Potassium 4.5 mmol/L (3.3-5.1); Sodium 135 mmol/L (135-145)
--- OUTSIDE RECORDS SUMMARY | 2024-07-09 19:12 | XMS_ITS | Data Portability ---
Author Organization [employer] [employer] [facility] [employer] Address [address] [place] [address] Care Team Providers Care Geodetic Survey Director Name Role Phone HIM CCA OTHER VALORIE GARCÍA Primary Care Provider [phone] Assessment Encounter Date Assessment Date Assessment LastModified by Organization Details LastModified Time 12/05/2023 12/05/2023 I have reviewed and agree with the assessment and plan as documented by the beauty artist. I provided real time medical direction for this encounter and was immediately available to provide additional phone based assistance as needed. History as noted by beauty artist. Pt with recent diagnosis of R knee septic arthritis, had knee arthroscopy and wash out performed at [facility] on November 29 and was discharged home [...] pt that he needs to return to [facility] today to have orthopedics evaluate his leg. I stress the importance of having his leg evaluated urgently today to rule out worsening infection. We offer to arrange for an ambulance to take him to the ED, but pt prefers to have his sister take him to the [facility] ED today for evaluation. He states he will go there in about an hour. I have called an expect to the metal trades instructor at the [place] ED. [email or web address] Not available 12/05/2023 11:27:29 Plan [...] Updated DateTime 4 98 % 98 % 983531. 04 g 18 /min 98.2 [degF] 101 /min 104 mm[Hg] 64 mm[Hg] Not Available [facility] - production 4 11:02:34 Social History None recorded. Functional Status None recorded. Mental Status None recorded. Family History Nothing Reported. Medical History No medical history recorded. Past Encounters Encounter ID Performer Location Encounter Start Date Encounter Closed Date Diagnosis/Indication Diagnosis SNOMED-CT Code Diagnosis ICD10 Code Diagnosis Note [id number] Amadou Baez MD [facility] - [facility] [address] [place] [phone] 12/05/2023 11:02:27 12/06/2023 10:03:23 Cellulitis of right lower limb [id number] L03.115 Health Concerns Section Related Observation LastModified by Organization Detai ls LastModified Time None Recorded Concern Status LastModified by Organization Details LastModified Time None Recorded Advance Directives Directive None Recorded Payers Encounter Date Sequence Insurance Name Policy Number Policy Booth Covered Member ID Booth Member ID Guarantor Name 12/05/2023 1 [facility] [employer] - DOS ON OR AFTER 2022 - DUAL ELIGIBLE - PENITENTIARY OPTIONS AND ONE CARE (MEDICARE REPLACEMENT/ADV ANTAGE - HMO) Akash Barboza [id number] Akash Barboza Notes Date Note Type Note Provider Name and Address Organization Details Recorded Time 12/05/2023 text/html This was a supervised home visit with beauty artist Deon Diaz. [facility] Nurse Triage Notes (Claudia [...] .................. .................. .................. .................. .................. .................. ............... Thaw Shed Heater Tender Note From Deon Diaz: Pt co pain and redness in right leg after surgery this past Sunday. Pt on antibiotics and pain management already. Pt denies fever NVD CP sob. Pt sts redness and pain has increased since release. Baseline vitals assessed, area warm to touch ..afebrile. [facility] contacted and advised pt to go to ER today. Pt declined ambulance and sts his sister will take him to [facility]. Pt education on the risks of not going to ER. .................. .................. .................. .................. .................. .................. .................. ............... Disposition: Fulfilled Amadou Baez MD [address] [facility],[address], [place], [address], [facility] 12/05/2023 11:58:49
[2024-07-09] MEDS: Calcium Gluconate/NaCl,Iso-Osm 1 GM/50 ML PLAST..BAG IV (19:50)
[2024-07-09] MEDS: Lactulose 20 GM/30 ML SOLUTION 30 GM PO (20:42)
[2024-07-09] MEDS: oxyCODONE HCl Immed Release 5 MG TABLET PO (20:42)
[2024-07-09 20:43] LABS: Glucose, Whole Blood 181 mg/dL (60-115)
[2024-07-10] VITALS (12 sets, daily range): BP systolic 112–129; BP diastolic 63–79; PULSE 88–100; RESP 12–25; TEMP 36.7–36.9; O2SAT 95–100; BMI 27.0
[2024-07-10 04:35] LABS: MANUAL DIFF FLAG NO
[2024-07-10 04:37] LABS: Basophils Percent Auto 0.2 % (0-2); Hematocrit 28.9 % (42.0-52.0); Hemoglobin 8.9 g/dl (14.0-18.0); Imm Gran Abs Auto 0.03 X10*3/uL (0.00-0.03); Imm Gran Pct Auto 0.5 % (0.0-0.4); Lymphocytes Absolute Auto 0.4 X10*3/uL (1.2-4.9); Lymphocytes Percent Auto 6.2 % (20-40); Mean Corpuscular HGB Conc 30.8 g/dl (31.0-36.0); Mean Corpuscular Hemoglobin 25.1 pg (27.0-33.0); Mean Corpuscular Volume 81.6 fL (80.0-98.0); Mean Platelet Volume 8.5 fL (9.4-12.4); Monocytes Absolute Auto 0.7 X10*3/uL (0.1-1.2); Monocytes Percent Auto 11.5 % (2-11); Neutrophils Absolute Auto 5.1 x10*3/uL (2.0-8.3); Neutrophils Percent Auto 81.6 % (45-73); Platelet Count 163 X10*3/uL (160-400); Red Blood Count 3.54 X10*6/uL (4.60-5.80); White Blood Count 6.3 X10*3/uL (4.8-10.8)
[2024-07-10 04:41] LABS: Ammonia 42 umol/L (13-55)
[2024-07-10 04:55] LABS: Albumin Level 3.1 g/dL (3.5-5.0); Anion Gap 9 (12-20); Blood Urea Nitrogen 9 mg/dL (9-16); Calcium 8.6 mg/dL (8.4-10.2); Carbon Dioxide 23 mmol/L (22-29); Chloride 107 mmol/L (96-108); Creatinine Clr Calc Pharmacy 155.6; Estimated Glomerular Filt Rate > 60; Glucose Random 183 mg/dL (60-115); Magnesium 2.1 mg/dL (1.6-2.6); Phosphorus 2.6 mg/dL (2.7-4.5); Potassium 4.3 mmol/L (3.3-5.1); Sodium 135 mmol/L (135-145)
[2024-07-10] MEDS: Albumin Human 25 % 100 ML IV (06:25)
[2024-07-10] MEDS: oxyCODONE HCl Immed Release 5 MG TABLET PO (06:42)
[2024-07-10 07:36] LABS: Glucose, Whole Blood 148 mg/dL (60-115)
--- NOTE | 2024-07-10 07:51 | P.PNCC_ITS ---
Subjective Subjective Date of Service: 07/10/24 Interval History: no significant overnight events Critical Care Time (minutes): 0 Physical Exam 2 Vital Signs: Vital Signs: Last Vital Signs Temp 98.1 F 07/10/24 04:00 Pulse 97 07/10/24 07:00 Resp 25 H 07/10/24 07:00 BP 118/70 07/10/24 07:00 Pulse Ox 99 07/10/24 07:00 O2 Del Method Room Air 07/10/24 07:00 O2 Flow Rate 2 07/09/24 20:00 BMI result Body Mass Index 27.0 Const: General: cooperative, healthy appearing, comfortable, no acute distress, well developed, alert, awake and Physically active O rientation/consciousness: patient oriented x3 HEENT: Head: Yes normal to inspection, Yes normocephalic and Yes atraumatic Eyes: General: appearance normal, both eyes and all related structures Neck: Neck: Yes normal visual inspection, Yes full ROM, Yes no meningeal signs, Yes trachea midline and Yes supple Chest: Chest palpation & inspection: normal inspection of the chest Resp: Other: no appreciable rales, rhonchi, wheezing Effort & Inspection: normal respiratory effort Cardio: Rate: regular rate Rhythm: regular rhythm GI: Other: distended, though soft, compressible; no appreciable tenderness to palpation; appreciable ventral hernia w/o overlying skin changes; LLQ drain in place, clean, dry, intact Skin: General skin exam: no rashes or lesions noted Neuro: General: patient oriented x3, tone normal, moves all extremities, no meningeal signs and no focal motor deficits Extrem: General: Yes normal to inspection, Yes full ROM, Yes capillary refill normal and Yes no clubbing, cyanosis or edema Psych: Appearance: grossly normal Objective Data Labs 07/10/24 04:02 07/10/24 04:02 Labs: Laboratory Results - last 24 hr 07/09/24 07/09/24 07/09/24 10:00 10:31 11:41 WBC 3.9 L RBC 3.78 L Hgb 9.5 L Hct 30.5 L MCV 80.7 MCH 25.1 L MCHC 31.1 RDW 17.6 H Plt Count 172 MPV 8.7 L Immature Gran % (Auto) Neut % (Auto) Lymph % (Auto) [place] % (Auto) Eos % (Auto) Baso % (Auto) Lymph # (Auto) [place] # (Auto) Eos # (Auto) Baso # (Auto) Abs Immat Gran (auto) Absolute Neuts (auto) Absolute Nucleated RBC 0.000 Nucleated RBC % (auto) 0.0 Sodium 136 Potassium 4.5 Chloride 105 Carbon Dioxide 24 Anion Gap 12 BUN Creatinine Estim Creat Clear Calc Estimated GFR POC Glucose 115 Random Glucose Calcium Phosphorus Magnesium Ammonia Albumin Urine Opiates Screen Not Detected Ur Buprenorphine Scrn Not Detected Ur Oxycodone Screen Positive H Urine Methadone Screen Not Detected Urine Fentanyl Screen Not Detected Ur Barbiturates Screen Not Detected Ur Phencyclidine Scrn Not Detected Ur Amphetamines Screen Not Detected U Benzodiazepines Scrn Not Detected Urine Cocaine Screen Not Detected U Marijuana (THC) Screen POSITIVE H Blood Type A Positive Antibody Screen NEGATIVE 07/09/24 07/09/24 07/10/24 18:10 20:39 04:02 WBC 3.2 L 6.3 RBC 3.53 L 3.54 L Hgb 8.9 L 8.9 L Hct 28.9 L 28.9 L MCV 81.9 81.6 MCH 25.2 L 25.1 L MCHC 30.8 L 30.8 L RDW 17.2 H 17.0 H Plt Count 163 163 MPV 8.6 L 8.5 L Immature Gran % (Auto) 0.3 0.5 H Neut % (Auto) 88.6 H 81.6 H Lymph % (Auto) 6.3 L 6.2 L Bro[place] % (Auto) 3.5 11.5 H Eos % (Auto) 0.3 0.0 Baso % (Auto) 1.0 0.2 Lymph # (Auto) 0.2 L 0.4 L Bro[place] # (Auto) 0.1 0.7 Eos # (Auto) 0.0 0.0 Baso # (Auto) 0.0 0.0 Abs Immat Gran (auto) 0.01 0.03 Absolute Neuts (auto) 2.8 5.1 Absolute Nucleated RBC 0.000 0.000 Nucleated RBC % (auto) 0.0 0.0 Sodium 135 135 Potassium 4.5 4.3 Chloride 107 107 Carbon Dioxide 25 23 Anion Gap 8 L 9 L BUN 10 9 Creatinine 0.78 0.73 Estim Creat Clear Calc 145.6 155.6 Estimated GFR > 60 > 60 POC Glucose 181 H Random Glucose 144 H 183 H Calcium 8.3 L 8.6 Phosphorus 3.5 2.6 L Magnesium 2.0 2.1 Ammonia 42 Albumin 3.1 L Urine Opiates Screen Ur Buprenorphine Scrn Ur Oxycodone Screen Urine Methadone Screen Urine Fentanyl Screen Ur Barbiturates Screen Ur Phencyclidine Scrn Ur Amphetamines Screen U Benzodiazepines Scrn Urine Cocaine Screen U Marijuana (THC) Screen Blood Type Antibody Screen 07/10/24 07:33 WBC RBC Hgb Hct MCV MCH MCHC RDW Plt Count MPV Immature Gran % (Auto) Neut % (Auto) Lymph % (Auto) Bro[place] % (Auto) Eos % (Auto) Baso % (Auto) Lymph # (Auto) [place] # (Auto) Eos # (Auto) Baso # (Auto) Abs Immat Gran (auto) Absolute Neuts (auto) Absolute Nucleated RBC Nucleated RBC % (auto) Sodium Potassium Chloride Carbon Dioxide Anion Gap BUN Creatinine Estim Creat Clear Calc Estimated GFR POC Glucose 148 H Random Glucose Calcium Phosphorus Magnesium Ammonia Albumin Urine Opiates Screen Ur Buprenorphine Scrn Ur Oxycodone Screen Urine Methadone Screen Urine Fentanyl Screen Ur Barbiturates Screen Ur Phencyclidine Scrn Ur Amphetamines Screen U Benzodiazepines Scrn Urine Cocaine Screen U Marijuana (THC) Screen Blood Type Antibody Screen Progress Note: A&P Assessment and plan (1) S/P TIPS (transjugular intrahepatic portosystemic shunt): Status: Acute (2) Cirrhosis of liver: Status: Acute Plan Patient is a 58 Y M w/ diabetes mellitus, alcohol misuse c/b cirrhosis, esophageal varices c/b upper GI bleed, ascites, colon cancer s/p terminal ileal resection and R hemicolectomy, pancreatic cancer, pulmonary embolism on apixaban, presenting on 07/09 for elective TIPS N: no acute issues; empiric lactulose CV: no acute issues R: no acute issues GI: diabetic diet : no acute issues H: chronic anemia; transfuse Hb <7, PLT <100; to hold chemical DVT prophylaxis terri-procedurally ID: no acute issues E: diabetes mellitus; insulin?sliding scale P: active alcohol misuse; addiction medicine Quality Stroke Does the patient have a stroke diagnosis?: No VTE Prior VTE?: No VTE Risk Level:: Medical - moderate - high VTE Device Contraindication: N/A - Device Ordered VTE Drug Contraindication: Treatment Not Tolerated
--- NOTE | 2024-07-10 08:21 | PM.GICN ---
History of Present Illness Data of Consult Service Date: 07/10/24 Requesting physician: Saray Antonio Primary Care Provider: Martin Avilez MD HPI Reason for consult: Status post TIPPS placement 58 YM with ESLD complicated by ascites, portal hypertension and known esophageal varices (status post multiple EGDs in the past with band ligation - last EGD in 04/2024), colon cancer s/p terminal ileal resection and R hemicolectomy, pancreatic cancer, pulmonary embolism on apixaban admitted to [facility] after a successful TIPPS placement (for refractory ascites and esophageal and gastric varices) on 07/09/24. Patient has therapeutic paracentesis every 2 weeks and last paracentesis was performed on 07/09/24 before TIPPS was performed. Pt states he is feels well and denies abdominal pain. Review of Systems Review of Systems: Yes all other systems are reviewed and are negative [facility] Past Medical History Medical History (Updated 07/09/24 @ 18:12 by Saray Antonio MD) Cirrhosis of liver Septic arthritis Hx of transfusion of packed red blood cells Umbilical hernia Anxiety Pulmonary nodule 1 cm or greater in diameter Pleuritic chest pain Pulmonary embolism, bilateral Diabetes Alcohol use disorder, moderate, dependence Recurrent left pleural effusion Pleural effusion Pericardial effusion Tachycardia Dyspnea Hydropneumothorax Pleural effusion on right Decompensation of cirrhosis of liver Cirrhosis GERD (gastroesophageal reflux disease) Esophageal varices Chronic abdominal pain Gout Peripheral neuropathy Alcoholism Elevated LFTs Family History Family History Mother Cancer Sister Cancer Surgical History Surgical History (Updated 07/09/24 @ 18:12 by Saray Antonio MD) History of carpal tunnel surgery of left wrist S/P right knee arthroscopy History of abdominal paracentesis Hx of esophagogastroduodenoscopy History of thoracentesis H/O colonoscopy H/O cervical spine surgery H/O hemicolectomy Social History Social History Household Members: Other Household Members Other:: roommate Housing: Apartment Are you a primary regular senior care provider to a significant other at home: No Do you presently have visiting nurse or other home services: No Alcohol intake: current Alcohol intake frequency: a few times a week Alcohol type: beer Comment: counts correct Patient Tobacco Use Status: Never used Tobacco Tobacco use type: Smokeless Tobacco Years Smoked: 35 e-Cigarette/Vaping Use: Currently Using Second Hand Smoke Exposure: No Substance Use Type: Marijuana Advance Directives Date on File: 12/03/23 service: No Current occupational status: unemployed Meds Allergies Allergy/AdvReac Type Severity Reaction Status Date / Time No Known Drug Allergies Allergy Mild NONE Verified 07/09/24 11:46 [NO KNOWN DRUG ALLERGIES] Active Medications: Current Medications Acetaminophen (Acetaminophen 325 Mg Tablet) 650 mg PO Q6H PRN PRN Reason: Pain, Mild 1-3,fever,headache Albuterol Sulfate (Albuterol Sulfate 90 Mcg 8 Gm Inhaler) 2 puff INHALE Q6H PRN PRN Reason: Shortness Of Breath Or Wheezing Calcium Carbonate (Calcium Carbonate 750 Mg Tab.Chew) 750 mg PO Q4H PRN PRN Reason: Heartburn Ferrous Sulfate (Ferrous Sulfate 324 Mg Tablet.Dr) 324 mg PO DAILY [facility] Folic Acid (Folic Acid 1 Mg Tablet) 1 mg PO DAILY [facility] Furosemide (Furosemide 40 Mg Tablet) 40 mg PO BID@0900,1800 [facility]; Protocol Last Admin: 07/09/24 18:14 Dose: Not Given Gabapentin (Gabapentin 300 Mg Capsule) 300 mg PO DAILY [facility] Glucose (Glucose Gel 15 Gm Gel..Gram.) 15 gm PO Q15M PRN; Protocol PRN Reason: per Hypoglycemia Standing Ord. Hydroxyzine HCl (Hydroxyzine Hcl 50 Mg Tablet) 50 mg PO DAILY PRN PRN Reason: itching Dextrose (D10) 250 mls @ 750 mls/hr IV Q15M PRN; Protocol PRN Reason: per Hypoglycemia Standing Ord. Albumin Human (Kedbumin 25 %) 100 mls @ 100 mls/hr IV Q6H [facility] Stop: 07/11/24 00:29 Last Infusion: 07/10/24 07:27 Dose: Infused Potassium Phosphate (Kphos) 15 mmol in 250 mls @ 62.5 mls/hr IV ONCE ONE Stop: 07/10/24 11:51 Insulin Human Lispro (Insulin Lispro 100 Unit/Ml 3 Ml Vial) 0 unit SUBCUT QIDACHS [facility]; Protocol Last Admin: 07/10/24 07:34 Dose: Not Given Lactulose (Lactulose 20 Gm/30 Ml Solution) 30 gm PO BID [facility] Last Admin: 07/09/24 20:42 Dose: 30 gm Lorazepam (Lorazepam 0.5 Mg Tablet) 0.5 mg PO DAILY PRN PRN Reason: anxiety attack Magnesium Hydroxide (Milk Of Magnesia 30 Ml Oral.Susp) 30 ml PO DAILY PRN PRN Reason: Constipation Naloxone HCl (Naloxone Hcl 0.4 Mg/Ml Vial) 0.04 mg IVPUSH Q5M PRN PRN Reason: Excessive sedation or RR < 8 Ondansetron HCl (Ondansetron Hcl 4 Mg/2 Ml Vial) 4 mg IVPUSH Q8H PRN PRN Reason: Nausea and Vomiting Last Admin: 07/09/24 17:50 Dose: 4 mg Oxycodone HCl (Oxycodone Hcl Immed Release 5 Mg Tablet) 5 mg PO BID PRN PRN Reason: Pain, Severe (Pain Scale 7-10) Last Admin: 07/10/24 06:42 Dose: 5 mg Sodium Chloride (0.9 % Sodium Chloride Flush 3 Ml Syringe) 3 ml IVFLUSH [facility] Last Admin: 07/10/24 00:00 Dose: 3 ml Spironolactone (Spironolactone 25 Mg Tablet) 100 mg PO BID@0900,1800 [facility]; Protocol Thiamine HCl (Thiamine Hcl 100 Mg Tablet) 100 mg PO DAILY [facility] Home Medications ?Medication ?Instructions ?Recorded ?Confirmed ?Last Taken ?Type folic acid 1 mg tablet 1 mg PO DAILY 06/10/21 07/04/24 07/08/24 History thiamine HCl (vitamin B1) 100 mg 100 mg PO DAILY 06/10/21 07/04/24 07/08/24 History tablet hydroxyzine pamoate 25 mg capsule 50 mg PO DAILY PRN itching 01/26/22 07/04/24 04/16/24 History lorazepam 0.5 mg tablet 0.5 mg PO DAILY PRN anxiety attack 07/13/22 07/04/24 04/16/24 History oxycodone 5 mg tablet 5 mg PO BID PRN Pain 03/31/24 07/04/24 07/08/24 History albuterol sulfate 90 mcg/actuation 2 puff inhalation Q6H PRN 04/18/24 07/04/24 04/16/24 History aerosol inhaler Shortness Of Breath Or Wheezing gabapentin 300 mg capsule 300 mg PO DAILY 06/03/24 07/04/24 07/09/24 07:00 History furosemide 40 mg tablet 40 mg PO BID 07/03/24 07/04/24 07/08/24 History spironolactone 100 mg tablet 100 mg PO BID 07/03/24 07/04/24 07/08/24 History bupropion HCl 300 mg 24 hr tablet, 300 mg PO DAILY 07/09/24 07/09/24 Unknown History extended release paroxetine HCl 20 mg tablet 20 mg PO DAILY 07/09/24 07/09/24 Unknown History rifaximin 550 mg tablet (Xifaxan) 550 mg PO BID 07/09/24 07/09/24 Unknown History ropinirole 0.25 mg tablet 0.25 - 0.5 mg PO DAILY PRN 07/09/24 07/09/24 Unknown History restless legs Physical Exam Vital Signs: Vital Signs: Last Vital Signs Temp 98.5 F 07/10/24 08:00 Pulse 97 07/10/24 08:00 Resp 23 H 07/10/24 08:00 BP 125/71 07/10/24 08:00 Pulse Ox 99 07/10/24 08:00 O2 Del Method Room Air 07/10/24 08:00 O2 Flow Rate 2 07/09/24 20:00 BMI result Body Mass Index 27.0 Const: General: no acute distress and ill appearing (Chronically ill-appearing) Nutritional Appearance: overweight Orientation/consciousness: patient oriented x3 Limitations: no limitations HEENT: Head: Yes normal to inspection Ears: hearing grossly normal bilaterally Eyes: Sclerae: sclerae normal Pupils: Equal, round and reactive pupils present Neck: Neck: Yes normal visual inspection Chest: Chest palpation & inspection: normal inspection of the chest Resp: Effort & Inspection: normal respiratory effort Auscultation: clear to auscultation bilaterally Cardio: Palpation: normal PMI Rate: regular rate Rhythm: regular rhythm Heart sounds: S1 normal heart sound present, S2 normal heart sound present and no murmurs GI: Inspection: Yes distended and Yes visible herniation (large umblical hernia) Palpation (GI): Soft to palpation, nontender and No hepatosplenomegaly present Auscultation: normal bowel sounds Rectal Exam - Male: Yes deferred Skin: General skin exam: no rashes or lesions noted Neuro: General: patient oriented x3, gait normal and moves all extremities Cranial nerves: Yes Equal, round and reactive pupils present Psych: Appearance: grossly normal Mental Status: mental status grossly normal Results Labs 07/10/24 04:02 07/10/24 04:02 Labs: Short CBC 07/09/24 07/09/24 07/10/24 Range/Units 10:31 18:10 04:02 WBC 3.9 L 3.2 L 6.3 (4.8-10.8) X10*3/uL Hgb 9.5 L 8.9 L 8.9 L (14.0-18.0) g/dl Hct 30.5 L 28.9 L 28.9 L (42.0-52.0) % Plt Count 172 163 163 (160-400) X10*3/uL BMP 07/09/24 07/09/24 07/10/24 10:31 18:10 04:02 Sodium 136 135 135 Potassium 4.5 4.5 4.3 Chloride 105 107 107 Carbon Dioxide 24 25 23 BUN 10 9 Creatinine 0.78 0.73 Calcium 8.3 L 8.6 Liver Function 07/10/24 Range/Units 04:02 Albumin 3.1 L (3.5-5.0) g/dL Assessment and Plan (1) Cirrhosis of liver: Status: Acute (2) S/P TIPS (transjugular intrahepatic portosystemic shunt): Status: Acute Plan 58 YM with ESLD complicated by ascites, portal hypertension and known esophageal varices (status post multiple EGDs in the past with band ligation - last EGD in 04/2024), colon cancer s/p terminal ileal resection and R hemicolectomy, pancreatic cancer, pulmonary embolism on apixaban admitted to [facility] ICU after a successful TIPPS placement (for refractory ascites and esophageal and gastric varices) on 07/09/24. Patient has therapeutic paracentesis every 2 weeks and last paracentesis was performed on 07/09/24 before TIPPS was performed. RECOMMENDATIONS: 1. Continue Diabetic diet 2. Continue Omeprazole for GERD and Furosemide 40 mg twice daily and Spironolactone 100 mg twice daily for ascites 3. Continue Carvedilol 6.25 mg twice daily for GI bleeding prophylaxis 4. Continue Lactulose for hepatic encephalopathy Ok to DC home once pt has recovered from the procedure I will arrange outpatient FU in the GI clinic and readjust his diuretics as needed Procedures Date of Service Date of Service: 07/10/24
--- NOTE | 2024-07-10 08:30 | PM.EVENT ---
Event Note Date of Service: 07/10/24 Event Note: Interventional Radiology Progress Note S: Feels great, minimal discomfort. Nausea overnight resolved and eating breakfast O: 98.5/ 97/ (125/71)/ 99& RA NAD Abdomen: soft, TTP at umbilical hernia. LLQ drain with 700 cc eliseo fluid Skin: warm and dry Ammonia- 44 A/P 58 y/o man with etoh cirrhosis POD#1 s/p TIPS and paracentesis -HCT stable -Ammonia nml -Ascites drain removed -Will arrange for outpatient follow up with US to assess TIPS patency is 4-6 weeks -Patient can be discharged from IR standpoint. Seen in combination with GI. Continue current diuretic regimen and f/u in 1 week -D/W Dr. Martin Sandra PA Time Spent With Patient Time: Total time managing care of this patient today ____ minutes.
[2024-07-10] MEDS: Potassium Phosphate/NS 15 MMOL/250 ML PLAST..BAG 62.5 MMOL IV (08:39)
[2024-07-10] MEDS: Gabapentin 300 MG CAPSULE PO (08:39)
[2024-07-10] MEDS: Furosemide 40 MG TABLET PO (08:39)
[2024-07-10] MEDS: Thiamine HCL 100 MG TABLET PO (08:40)
[2024-07-10] MEDS: Folic Acid 1 MG TABLET PO (08:40)
[2024-07-10] MEDS: Sodium,Potassium Phosphates POWD.PACK 2 PACKET PO (08:40)
[2024-07-10] MEDS: Spironolactone 25 MG TABLET 100 MG PO (08:40)
[2024-07-10] MEDS: Ferrous Sulfate 324 MG TABLET.DR PO (08:40)
[2024-07-10] MEDS: Lactulose 20 GM/30 ML SOLUTION 30 GM PO (08:40)
[2024-07-10] MEDS: 0.9 % Sodium Chloride Flush 3 ML SYRINGE IVFLUSH ×2 (08:48)
--- NOTE | 2024-07-10 09:00 | HO.POSTANES ---
Post Anesthesia Evaluation Post Anesthesia Evaluation Date of Service: 07/10/24 Vital Signs: Vital Signs Temp Pulse Resp BP Pulse Ox O2 Del Method 07/10/24 08:00 98.5 F 97 23 H 125/71 99 Room Air 07/10/24 07:00 97 25 H 118/70 99 Room Air 07/10/24 06:00 93 12 116/69 97 Room Air 07/10/24 05:00 98 18 129/63 99 Room Air 07/10/24 04:00 98.1 F 98 14 122/73 99 Room Air 07/10/24 03:00 94 12 120/71 99 Room Air 07/10/24 02:00 100 17 122/79 98 Room Air 07/10/24 01:00 97 17 112/67 95 Room Air 07/10/24 00:00 98.3 F 98 14 115/68 95 Room Air 07/09/24 22:59 106 H 20 127/70 96 Room Air 07/09/24 22:00 102 H 27 H 113/51 L 95 Room Air Anesthesia: General Endotracheal-GETA Mental Status: Awake Pain Control: Satisfactory Nausea/Vomiting: None Hydration: Adequate Anesthesia-Related Issues: No Anes. Related Issues
--- NOTE | 2024-07-10 13:39 | MHC.CM.PN ---
Met with pt to review d/c planning needs: Pt resides alone, has no DME or services - states he has barriers with transportation and will need a ride to home. [facility] shuttle arranged for a 2pm transport today. ICU care team aware of d/c plan. Pt declines HCP completion or service needs.
--- NOTE | 2024-07-11 09:07 | PM.DS ---
DS: Providers Provider Date of Service: 07/10/24 Date of admission: 07/09/24 17:49 Date of discharge: 07/10/24 Primary care physician: Martin Avilez MD Attending physician on discharge: Saray Antonio DS: Diagnosis Discharge Diagnosis (1) Cirrhosis of liver: Status: Acute (2) S/P TIPS (transjugular intrahepatic portosystemic shunt): Status: Acute DS: Summary Hospital Course Hospital Course: Patient is a 58 Y M w/ diabetes mellitus, alcohol misuse c/b cirrhosis, esophageal varices c/b upper GI bleed, ascites, colon cancer s/p terminal ileal resection and R hemicolectomy, pancreatic cancer, pulmonary embolism on apixaban, presenting on 07/09 for elective TIPS; operative course reportedly uneventful; patient admitted to ICU for monitoring; per interventional radiology, discharged following day on 07/10 Status at Discharge Functional status at discharge: independent ambulation Overall status at discharge: patient is back to baseline Time Attestation Discharge Coordination Time (in mins): 30 Quality: Safe Use of Opioids Does Pt have an Active Cancer Diagnosis on the Problem List?: No Quality: Stroke Does the patient have a stroke diagnosis?: No Physical Exam Vital Signs: Vital Signs: Last Vital Signs Temp 98.5 F 07/10/24 08:00 Pulse 89 07/10/24 11:00 Resp 20 07/10/24 11:00 BP 118/68 07/10/24 11:00 Pulse Ox 100 07/10/24 11:00 O2 Del Method Room Air 07/10/24 11:00 O2 Flow Rate 2 07/09/24 20:00 BMI result Body Mass Index 27.0 Const: General: cooperative, healthy appearing, comfortable, no acute distress, well developed, alert, awake and Physically active Orientation/consciousness: patient oriented x3 HEENT: Head: Yes normal to inspection, Yes normocephalic and Yes atraumatic Eyes: General: appearance normal, both eyes and all related structures Neck: Neck: Yes normal visual inspection, Yes full ROM, Yes no meningeal signs, Yes trachea midline and Yes supple Chest: Chest palpation & inspection: normal inspection of the chest Resp: Other: no appreciable rales, rhonchi, wheezing Effort & Inspection: normal respiratory effort Cardio: Rate: regular rate Rhythm: regular rhythm GI: Other: LLQ drain in place w/ overlying bandage, clean, dry, intact, to be removed by interventional radiology prior to discharge Inspection: Yes normal to inspection, No Abdominal wall edema and No distended Palpation (GI): Soft to palpation, not firm, nontender, no guarding and not rigid Skin: General skin exam: no rashes or lesions noted Neuro: General: patient oriented x3, tone normal, moves all extremities, no meningeal signs and no focal motor deficits Extrem: General: Yes normal to inspection, Yes full ROM, Yes capillary refill normal and Yes no clubbing, cyanosis or edema Psych: Appearance: grossly normal DS: Data Data Completed and Pending Completed studies during hospitalization [Text1]: Procedures Control Bleeding in Gastrointestinal Tract, Via Natural or Artificial Opening Endoscopic (11/01/21) Detoxification Services for Substance Abuse Treatment (12/06/21) Drainage of Left Knee Joint, Percutaneous Approach (11/27/23) Drainage of Left Pleural Cavity, Percutaneous Approach (04/09/23) Drainage of Peritoneal Cavity, Percutaneous Approach (11/27/22) Drainage of Right Pleural Cavity, Percutaneous Approach (12/06/21) Introduction of Mineral-based Topical Hemostatic Agent into Upper GI, Via Natural or Artificial Opening Endoscopic, [employer] (11/27/22) Irrigation of Joints using Irrigating Substance, Percutaneous Endoscopic Approach (12/05/23) Occlusion of Esophageal Vein with Extraluminal Device, Via Natural or Artificial Opening Endoscopic (11/27/22) Transfusion of Nonautologous Red Blood Cells into Peripheral Vein, Percutaneous Approach (04/18/24) Discharge Plan Discharge Anticipated Discharge Date/Time: 07/10/24 10:52 Patient Disposition: Home, Self-Care Discharge Diagnosis: TIPS Placement Referrals: Martin Avilez MD [Primary Care Provider] - 1 Week Discharge Medications: Continued omeprazole 40 mg capsule,delayed release(DR/EC) 40 mg PO DAILY 90 Days Qty: 90 1RF carvedilol 6.25 mg tablet 6.25 mg PO BID 30 Days Qty: 60 3RF ferrous sulfate 324 mg (65 mg iron) tablet,delayed release (DR/EC) 324 mg PO DAILY 90 Days Qty: 90 1RF lactulose 20 gram/30 mL Solution 20 g PO TID-QID Qty: 946 10RF (SUZANNA) maria esther Villegas See Rx Instructions .Route Qty: 1 0RF Rx Instructions: As directed gabapentin 300 mg capsule 300 mg PO DAILY ondansetron 4 mg tablet,disintegrating 4 mg PO Q8H PRN (Reason: nausea and vomiting) Qty: 14 0RF (DME) FreeStyle Lite Strips Strip See Rx Instructions .ROUTE .MEDSUPPLY Qty: 100 2RF Rx Instructions: QID (DME) lancets Misc See Rx Instructions .ROUTE .MEDSUPPLY Qty: 200 2RF Rx Instructions: 4 times daily (DME) blood-glucose meter [FreeStyle Lite Meter] Kit See Rx Instructions .ROUTE .MEDSUPPLY Qty: 1 0RF Rx Instructions: As directed (DME) pen needle, diabetic [Pen Needle] 31 gauge x 5/16 needle See Rx Instructions .ROUTE .MEDSUPPLY Qty: 1200 0RF Rx Instructions: As directed albuterol sulfate 90 mcg/actuation Hfa Aerosol Inhaler 2 puff INHALATION Q6H PRN (Reason: Shortness Of Breath Or Wheezing) spironolactone 100 mg tablet 100 mg PO BID furosemide 40 mg tablet 40 mg PO BID ropinirole 0.25 mg tablet 0.25 - 0.5 mg PO DAILY PRN (Reason: restless legs) paroxetine HCl 20 mg tablet 20 mg PO DAILY bupropion HCl 300 mg tablet extended release 24 hr 300 mg PO DAILY Xifaxan 550 mg tablet 550 mg PO BID hydroxyzine pamoate 25 mg capsule 50 mg PO DAILY PRN (Reason: itching) Rx Instructions: ITCHING/ANXIETY folic acid 1 mg tablet 1 mg PO DAILY thiamine HCl (vitamin B1) 100 mg tablet 100 mg PO DAILY lorazepam 0.5 mg tablet 0.5 mg PO DAILY PRN (Reason: anxiety attack) oxycodone 5 mg tablet 5 mg PO BID PRN (Reason: Pain) Discharge Orders: Discharge Order (Routine); Ordered 07/10/24 Ordered By: Saray Antonio Diet: Advance to usual diet Activity on Discharge: As tolerated Stand Alone Forms: Patient Portal Discharge page Print Language: Arabic Care Plan Goals: You received a TIPS. Please follow-up with gastroenterology and interventional radiology. Please return to the emergency department with any concerning symptoms, including, but not limited to fever, chills, abdominal pain, vomiting, blood in vomit, and blood in stool, or any other concerning signs or symptoms. Health Concerns: You received a TIPS. Please follow-up with gastroenterology and interventional radiology. Please return to the emergency department with any concerning symptoms, including, but not limited to fever, chills, abdominal pain, vomiting, blood in vomit, and blood in stool, or any other concerning signs or symptoms. Plan of Treatment: You received a TIPS. Please follow-up with gastroenterology and interventional radiology. Please return to the emergency department with any concerning symptoms, including, but not limited to fever, chills, abdominal pain, vomiting, blood in vomit, and blood in stool, or any other concerning signs or symptoms. Assessment: You received a TIPS. Please follow-up with gastroenterology and interventional radiology. Please return to the emergency department with any concerning symptoms, including, but not limited to fever, chills, abdominal pain, vomiting, blood in vomit, and blood in stool, or any other concerning signs or symptoms. Patient Instructions: TIPS (Transjugular Intrahepatic Portosystemic Shunt) (DC) Discharge Date/Time: 07/10/24 12:54
== END 2024-07-10 12:54 | disposition home or self-care (01) | DRG 406 ==
LOC: HO.ICU 07-10 09:57 → HO.S3 07-10 10:30 → HO.ICU 07-10 11:16
PROVIDERS: Nurse Practitioner; Radiology Vascular & Interventional Radiology; Admitting Provider Internal Medicine Critical Care Medicine; PCP Internal Medicine; Visit Provider Internal Medicine
PROC: 06183J4 Bypass Portal Vein to Hepatic Vein with Synthetic Substitute, Percutaneous Approach (ICD-10-PCS; principal; 2024-07-09 12:30)
DX: K70.31 Alcoholic cirrhosis of liver with ascites (principal); I85.10 Secondary esophageal varices without bleeding; E11.42 Type 2 diabetes mellitus with diabetic polyneuropathy; I86.4 Gastric varices; Z85.038 Personal history of other malignant neoplasm of large intestine; Z86.711 Personal history of pulmonary embolism; Z85.07 Personal history of malignant neoplasm of pancreas; Z87.891 Personal history of nicotine dependence; Z79.01 Long term (current) use of anticoagulants; Z79.899 Other long term (current) drug therapy
CPT/HCPCS: 36415; 37182; 49083; 80048; 80051; 80053; 80307; 82040; 82140; 82947; 83735; 84100; 85025; 85027; 85610; 85730; 86850; 86900; 86901; C1725; C1769; C1874; C1894; J0613; J0696; J1100; J2003; J2405; J2704; J3010; P9047

== ENCOUNTER → 2024-07-09 17:49 | Outpatient (BNV) | payer OTHER, SELFPAY | PROVIDERS: Admitting Provider Internal Medicine Critical Care Medicine; PCP Internal Medicine; Visit Provider Internal Medicine Gastroenterology | DX: K74.60 Unspecified cirrhosis of liver (principal); Z95.828 Presence of other vascular implants and grafts | CPT/HCPCS: 99222 ==

== ENCOUNTER → 2024-07-09 17:49 | Outpatient (BNV) | payer OTHER, SELFPAY | PROVIDERS: Admitting Provider Internal Medicine Critical Care Medicine; PCP Internal Medicine; Visit Provider Internal Medicine Critical Care Medicine | DX: K74.60 Unspecified cirrhosis of liver (principal); Z95.828 Presence of other vascular implants and grafts | CPT/HCPCS: 99223; 99232; 99238 ==

== ENCOUNTER 2024-07-11 06:17 | Inpatient (IN) | payer OTHER, SELFPAY ==
[2024-07-11] VITALS (21 sets, daily range): BP systolic 118–149; BP diastolic 75–97; PULSE 93–109; RESP 16–20; TEMP 36.4–37.4; O2SAT 95–100; BMI 25.3
--- NOTE | ~2024-07-11 | CT_ITS ---
EXAMINATION: CT ABDOMEN AND PELVIS WITH CONTRAST CLINICAL INFORMATION: Abdominal pain. Vomiting. Status post TIPS. COMPARISON: CT abdomen dated April 18, 2024. TECHNIQUE: Multidetector volumetric images were obtained from the superior aspect of the liver through the pubic symphysis following administration 85 mL of Omnipaque 350 intravenous contrast. Sagittal and coronal reformatted images were obtained on the technologist's workstation. Oral contrast: No This CT examination was performed using dose optimization techniques as appropriate, variously including the following: *Automated exposure control *Adjustment of mA and/or kV according to patient size (this includes techniques or standardized protocols for targeted exams where dose is matched to indication/reason for exam; i.e. extremities or head) *Use of iterative reconstruction technique. DLP: 690 mGy centimeter. FINDINGS: LUNG BASES: Left-sided pleural effusion, moderate volume. There is a round atelectasis versus airspace disease in the left lung base. LIVER, GALLBLADDER, AND BILIARY TREE: Liver measures 22 cm. Nodular surface. Status post TIPS. Cholelithiasis. No intrahepatic or extrahepatic biliary ductal dilatation. PANCREAS: Reduced volume. No main pancreatic ductal dilatation. No peripancreatic fluid collections. SPLEEN: 17 cm. ADRENAL GLANDS: No nodular lesions. KIDNEYS AND URETERS: No hydronephrosis or nephrolithiasis. No gross renal mass. BLADDER: Fluid-filled. GASTROINTESTINAL TRACT: There is sutures in the mid transverse colon and absent right hemicolon. Multiple air-fluid levels involving mostly the jejunal loops with decompression of the ileal loops and a transitional pole and at the abdominal wall defect/hernia/eventration, periumbilical. No pneumatosis intestinalis. Ascites, moderate to large volume. ABDOMINAL WALL: There is an abdominal wall defect in the umbilical/periumbilical to the right with herniation of a fluid-filled prominent segmental small bowel loops with the a twisting/swirling morphology pattern. There is dilatation of the proximal small bowel loops with multiple air-fluid levels and decompression of the distal ileal loops. . LYMPH NODES: Prominent lymph nodes in the torres hepatic, retroperitoneal and to a lesser extent mesentery. VASCULAR: Mixed plaques throughout the abdominal aorta wall without aneurysm or dissection. Mixed plaques in the iliac arteries. PELVIC VISCERA: Prostate gland is not enlarged. OSSEOUS STRUCTURES: Multilevel thoracolumbar spondylosis without acute fracture or gross listhesis. Degenerative changes in the coxofemoral joints and sacroiliac joints. CT/CT abdomen pelvis w IV con IMPRESSION: Concerning incarcerated hernia, periumbilical/right midline resulting in partial/intermittent mid small bowel obstruction. Ascites, moderate to large volume. Status post TIPS. Persistent portal hypertension should be considered. Hepatosplenomegaly and torres hepatic and retroperitoneal lymphadenopathy likely related to cirrhosis. Round atelectasis versus airspace disease, left lung base. Left-sided pleural effusion, moderate volume. Discussed with the requesting physician of the emergency department Dr. Benji Lam at the time of the interpretation, 8:49 AM. Fleischner guidelines were followed. Electronically signed by: Krish Paredes MD 07/11/2024 09:02 AM [facility]
--- NOTE | ~2024-07-11 | XR_ITS ---
EXAMINATION: XR CHEST CLINICAL INFORMATION: abdo pain, vomiting, 2 days s/p TIPS procedure COMPARISON: 02/01/2024. Correlation made with CT abdomen and pelvis performed earlier same day. TECHNIQUE: Frontal view of the chest was obtained. FINDINGS: The cardiac, hilar, and mediastinal contours are normal. There is a small layering effusion left base with rounded opacity, which on CT of same day represents rounded atelectasis. There is associated left lower lobe volume loss. Left apical granuloma. The right lung is clear and well pneumatized. No right effusion. No pneumothorax. No suspicious soft tissue or bony abnormalities. Mild degenerative changes of the spine and shoulder joints. XR/XR chest 1V IMPRESSION: 1. Small left effusion with round atelectasis left base. 2. The right lung is clear. Electronically signed by: Dao El MD 07/11/2024 10:03 AM [facility]
--- NOTE | 2024-07-11 06:45 | PC.NURSE ---
pt states he took 5mg oxycodone 07/10 in evening around 2100 and another one hour later with no relief in abd pain. pt states he had this precribed from previous pancreatitis treatment
[2024-07-11 06:52] LABS: MANUAL DIFF FLAG NO
[2024-07-11 06:53] LABS: Basophils Percent Auto 0.7 % (0-2); Eosinophils Percent Auto 0.7 % (0-4); Hematocrit 33.7 % (42.0-52.0); Hemoglobin 10.7 g/dl (14.0-18.0); Imm Gran Abs Auto 0.03 X10*3/uL (0.00-0.03); Imm Gran Pct Auto 0.5 % (0.0-0.4); Lymphocytes Absolute Auto 0.6 X10*3/uL (1.2-4.9); Lymphocytes Percent Auto 9.8 % (20-40); Mean Corpuscular HGB Conc 31.8 g/dl (31.0-36.0); Mean Corpuscular Hemoglobin 24.9 pg (27.0-33.0); Mean Corpuscular Volume 78.4 fL (80.0-98.0); Mean Platelet Volume 8.5 fL (9.4-12.4); Monocytes Absolute Auto 0.9 X10*3/uL (0.1-1.2); Monocytes Percent Auto 14.3 % (2-11); Neutrophils Absolute Auto 4.5 x10*3/uL (2.0-8.3); Platelet Count 196 X10*3/uL (160-400); Red Cell Distribution Width 17.2 % (11.0-16.0); White Blood Count 6.1 X10*3/uL (4.8-10.8)
--- NOTE | 2024-07-11 07:23 | ED.ABDPAIN ---
HPI - Abdominal Pain General Chief Complaint: Abdominal Pain Stated Complaint: TIPs Procedure done here yesterday , AB pain Time Seen by Provider: 07/11/24 07:23 History of Present Illness ED Provider: Genaro NEWMAN narrative: The patient is a 58-year-old male with a history of multiple medical problems including alcoholic cirrhosis, esophageal varices, pancreatic cancer, pulmonary embolism on apixaban, as well as other issues. Because of his chronic liver disease the patient had an elective tips procedure 2 days ago on Sunday. He was admitted to the ICU overnight for observation following the procedure. He was felt to have done well and so was discharged. However the patient says that he started to feel unwell as soon as he had gotten downstairs in the hospital waiting for a ride home. He developed abdominal pain and nausea that persisted throughout the afternoon and evening and finally he returns this morning because of severe abdominal pain and retching. He says he has been producing only clear looking fluid when he reaches. He does not know if he has had a fever. He has diffuse abdominal pain. He does not feel that he has a reaccumulation of ascites however. Related Data Home Medications ?Medication ?Instructions ?Recorded ?Confirmed folic acid 1 mg tablet 1 mg PO DAILY 06/10/21 07/04/24 thiamine HCl (vitamin B1) 100 mg 100 mg PO DAILY 06/10/21 07/04/24 tablet hydroxyzine pamoate 25 mg capsule 50 mg PO DAILY PRN itching 01/26/22 07/04/24 lorazepam 0.5 mg tablet 0.5 mg PO DAILY PRN anxiety attack 07/13/22 07/04/24 oxycodone 5 mg tablet 5 mg PO BID PRN Pain 03/31/24 07/04/24 albuterol sulfate 90 mcg/actuation 2 puff inhalation Q6H PRN 04/18/24 07/04/24 aerosol inhaler Shortness Of Breath Or Wheezing gabapentin 300 mg capsule 300 mg PO DAILY 06/03/24 07/04/24 furosemide 40 mg tablet 40 mg PO BID 07/03/24 07/04/24 spironolactone 100 mg tablet 100 mg PO BID 07/03/24 07/04/24 bupropion HCl 300 mg 24 hr tablet, 300 mg PO DAILY 07/09/24 07/09/24 extended release paroxetine HCl 20 mg tablet 20 mg PO DAILY 07/09/24 07/09/24 rifaximin 550 mg tablet (Xifaxan) 550 mg PO BID 07/09/24 07/09/24 ropinirole 0.25 mg tablet 0.25 - 0.5 mg PO DAILY PRN 07/09/24 07/09/24 restless legs Previous Rx's ?Medication ?Instructions ?Recorded blood sugar diagnostic (FreeStyle #100 ea 10/30/22 Lite Strips) blood-glucose meter (FreeStyle #1 ea 10/30/22 Lite Meter kit) lancets #200 ea 10/30/22 ondansetron 4 mg disintegrating 4 mg PO Q8H PRN nausea and 10/30/22 tablet vomiting #14 tabs pen needle, diabetic 31 gauge x #1,200 ea 10/31/22 5/16 (Pen Needle) walker #1 ea 12/04/23 carvedilol 6.25 mg tablet 6.25 mg PO BID 30 days #60 tabs 04/03/24 omeprazole 40 mg capsule,delayed 40 mg PO DAILY 90 days #90 caps 04/03/24 release ferrous sulfate 324 mg (65 mg 324 mg PO DAILY 90 days #90 tabs 04/28/24 iron) tablet,delayed release lactulose 20 gram/30 mL oral 20 g (30 mL) PO TID-QID #946 mL 07/11/24 solution Allergies Allergy/AdvReac Type Severity Reaction Status Date / Time No Known Drug Allergies Allergy Mild NONE Verified 07/11/24 06:38 [NO KNOWN DRUG ALLERGIES] Review of Systems Review of Systems Yes all other systems are reviewed and are negative PMFSH Past Medical History Medical History (Updated 07/11/24 @ 10:42 by Benji Lam MD) Cirrhosis of liver Septic arthritis Hx of transfusion of packed red blood cells Umbilical hernia Anxiety Pulmonary nodule 1 cm or greater in diameter Pleuritic chest pain Pulmonary embolism, bilateral Diabetes Alcohol use disorder, moderate, dependence Recurrent left pleural effusion Pleural effusion Pericardial effusion Tachycardia Dyspnea Hydropneumothorax Pleural effusion on right Decompensation of cirrhosis of liver Cirrhosis GERD (gastroesophageal reflux disease) Esophageal varices Chronic abdominal pain Gout Peripheral neuropathy Alcoholism Elevated LFTs Surgical History (Updated 07/09/24 @ 18:12 by Saray Antonio MD) History of carpal tunnel surgery of left wrist S/P right knee arthroscopy History of abdominal paracentesis Hx of esophagogastroduodenoscopy History of thoracentesis H/O colonoscopy H/O cervical spine surgery H/O hemicolectomy Family History Family History Mother Cancer Sister Cancer Social History Social History Household Members: Other Household Members Other:: roommate Housing: Apartment Are you a primary adult live in caregiver to a significant other at home: No Do you presently have visiting nurse or other home services: No Alcohol intake: current Alcohol intake frequency: a few times a week Alcohol type: beer Comment: counts correct Patient Tobacco Use Status: Never used Tobacco Tobacco use type: Smokeless Tobacco Years Smoked: 35 Smoked in Last 30 Days: No e-Cigarette/Vaping Use: Currently Using Second Hand Smoke Exposure: No Use of substances other than those prescribed or required for medical reasons: Yes Substance Use Type: Marijuana Substance Use Frequency: Chronic Longstanding Advance Directives: Yes Advance Directives on File: Yes Advance Directives Date on File: 12/03/23 Do you have a plan to hurt others: No Plan service: No Current occupational status: unemployed Physical Exam ED Vital Signs: Vital Signs - 24 hr 07/11/24 06:35 07/11/24 06:44 07/11/24 08:07 Temperature 97.7 F Pulse Rate 98 99 102 H Respiratory Rate 20 18 Blood Pressure 130/97 H 140/81 H 144/86 H Pulse Oximetry 100 98 Oxygen Delivery Method Room Air Room Air 07/11/24 08:36 Temperature Pulse Rate Respiratory Rate 20 Blood Pressure Pulse Oximetry Oxygen Delivery Method BMI result Body Mass Index 25.3 Const Other: The patient is a chronically ill-appearing 58-year-old male who was retching a lot. He was only bringing up small amounts of clear fluid. He looks quite chronically ill and uncomfortable. Mental status is normal however HENMT Other: Face is symmetrical. Mucous membranes moist. Eyes Other: Pupils are round equal, conjunctivae are clear, extraocular movements intact Neck Neck: Yes no JVD Resp Effort & Inspection: normal respiratory effort Auscultation: clear to auscultation bilaterally Cardio Rate: regular rate Rhythm: regular rhythm Heart sounds: S1 normal heart sound present and S2 normal heart sound present GI Other: The patient's abdomen is diffusely tender. The patient has an obvious umbilical hernia that is about the size of a lemon. This also seems diffusely tender. Skin Other: Skin is pale and dry Neuro Other: The patient is awake and alert with a normal mental status. Cranial nerves are grossly intact. He moves his extremities symmetrically and appropriately. He seems grossly neurologically intact. Extrem Other: No calf asymmetry or peripheral edema Medical Decision Making Medical Decision Making MDM Narrative: The patient is a 58-year-old male who had a tips procedure on an elective basis 2 days ago. He was kept in the hospital overnight and discharged yesterday. Since leaving the hospital he has developed abdominal pain and vomiting. On exam he has diffuse abdominal tenderness as well as an obvious umbilical hernia although he says he has a chronic umbilical hernia. Labs are not terribly abnormal. A CT scan of the abdomen suggests a small bowel obstruction related to his umbilical hernia. I was unable to reduce this umbilical hernia at the bedside. I consulted Dr. Khan who will be taking the patient to the operating room. Lab Data 07/11/24 06:44 07/11/24 06:44 Labs: Lab Results 07/11/24 07/11/24 07/11/24 Range/Units 06:44 09:09 09:24 WBC 6.1 (4.8-10.8) X10*3/uL RBC 4.30 L D (4.60-5.80) X10*6/uL Hgb 10.7 L D (14.0-18.0) g/dl Hct 33.7 L (42.0-52.0) % MCV 78.4 L (80.0-98.0) fL MCH 24.9 L (27.0-33.0) pg MCHC 31.8 (31.0-36.0) g/dl RDW 17.2 H (11.0-16.0) % Plt Count 196 (160-400) X10*3/uL MPV 8.5 L (9.4-12.4) fL Immature Gran % (Auto) 0.5 H (0.0-0.4) % Neut % (Auto) 74.0 H (45-73) % Lymph % (Auto) 9.8 L (20-40) % [place] % (Auto) 14.3 H (2-11) % Eos % (Auto) 0.7 (0-4) % Baso % (Auto) 0.7 (0-2) % Lymph # (Auto) 0.6 L (1.2-4.9) X10*3/uL [place] # (Auto) 0.9 (0.1-1.2) X10*3/uL Eos # (Auto) 0.0 (0.0-0.4) X10*3/uL Baso # (Auto) 0.0 (0.0-0.2) X10*3/uL Abs Immat Gran (auto) 0.03 (0.00-0.03) X10*3/uL Absolute Neuts (auto) 4.5 (2.0-8.3) x10*3/uL Absolute Nucleated RBC 0.000 (0.0-0.012) X10*3/uL Nucleated RBC % (auto) 0.0 (0.0-0.2) /100WBC PT 17.6 H D (10.9-12.4) SEC INR 1.5 H (0.9-1.1) APTT 33.4 (26.0-36.8) SEC Sodium 135 (135-145) mmol/L Potassium 3.7 (3.3-5.1) mmol/L Chloride 104 (96-108) mmol/L Carbon Dioxide 22 (22-29) mmol/L Anion Gap 13 (12-20) BUN 8 L (9-16) mg/dL Creatinine 0.73 (0.5-1.4) mg/dL Estim Creat Clear Calc 142.3 Estimated GFR > 60 Random Glucose 161 H (60-115) mg/dL Calcium 8.9 (8.4-10.2) mg/dL Total Bilirubin 2.1 H (0.0-1.0) mg/dL Direct Bilirubin 0.9 H (0.0-0.5) mg/dL AST 46 H (5-37) U/L ALT 15 (0-40) U/L Alkaline Phosphatase 177 H (39-117) U/L Ammonia 29 (13-55) umol/L C-Reactive Protein 1.18 H (< or = 0.50) mg/dL Total Protein 7.1 (6.5-8.0) g/dL Albumin 3.4 L (3.5-5.0) g/dL Independent Interpretation I performed an independent interpretation of an: EKG Interpretation: EKG at 10:58 shows normal sinus rhythm at 90 beats per minute. QTC is 504. Medications Administered Discontinued Medications Generic Name Dose Route Start Last Admin Trade Name Freq PRN Reason Stop Dose Admin Hydromorphone HCl 1 mg 07/11/24 07:31 07/11/24 07:42 Hydromorphone Hcl 1 Mg/Ml Syringe IVPUSH 07/11/24 07:32 1 mg ONCE ONE Administration Protocol Hydromorphone HCl 1 mg 07/11/24 08:32 07/11/24 08:36 Hydromorphone Hcl 1 Mg/Ml Syringe IVPUSH 07/11/24 08:33 1 mg ONCE ONE Administration Protocol Hydromorphone HCl 1 mg 07/11/24 10:55 07/11/24 11:00 Hydromorphone Hcl 1 Mg/Ml Syringe IVPUSH 07/11/24 10:56 1 mg ONCE ONE Administration Protocol Lactated Ringer's 1,000 mls @ 999 mls/hr 07/11/24 07:45 07/11/24 10:45 Lr IV 07/11/24 08:45 Infused .Q1H1M RYAN Infusion Iohexol 100 ml 07/11/24 08:30 07/11/24 08:35 Iohexol 350 Mg/Ml 100 Ml Infus..Btl IV 07/11/24 08:31 85 ml ONCE ONE Administration Ondansetron HCl 4 mg 07/11/24 07:31 07/11/24 07:42 Ondansetron Hcl 4 Mg/2 Ml Vial IVPUSH 07/11/24 07:32 4 mg ONCE ONE Administration Critical Care Time Critical Care Time Critical Care Time: Yes Total Critical Care Time: 35 Attestation: The patient was critically ill with a high probability of imminent or life-threatening deterioration. ?I spent greater than 30 minutes of discontinuous time evaluating the patient, delivering critical care at the bedside, discussing evaluating data with consultants. ?Critical care time does not include time spent performing separately billable procedures or teaching. ?Time spent performing critical care with 35 minutes. Discharge Plan Discharge Clinical Impression: Small bowel obstruction, Umbilical hernia, incarcerated Patient Disposition: Admitted As Inpatient
[2024-07-11 07:26] LABS: Alanine Aminotransferase 15 U/L (0-40); Albumin Level 3.4 g/dL (3.5-5.0); Alkaline Phosphatase 177 U/L (39-117); Anion Gap 13 (12-20); Aspartate Amino Transferase 46 U/L (5-37); Bilirubin Total 2.1 mg/dL (0.0-1.0); Blood Urea Nitrogen 8 mg/dL (9-16); Calcium 8.9 mg/dL (8.4-10.2); Carbon Dioxide 22 mmol/L (22-29); Chloride 104 mmol/L (96-108); Creatinine Clr Calc Pharmacy 142.3; Estimated Glomerular Filt Rate > 60; Glucose Random 161 mg/dL (60-115); Potassium 3.7 mmol/L (3.3-5.1); Sodium 135 mmol/L (135-145); Total Protein 7.1 g/dL (6.5-8.0)
[2024-07-11] MEDS: ondansetron HCL 4 MG/2 ML VIAL IVPUSH (07:42)
[2024-07-11] MEDS: HYDROmorphone HCl 1 MG/ML SYRINGE IVPUSH ×3 (07:42→11:00)
[2024-07-11] MEDS: Lactated Ringers 1,000 ML 999 ML IV (08:07)
[2024-07-11 08:08] LABS: Bilirubin Direct 0.9 mg/dL (0.0-0.5); C Reactive Protein 1.18 mg/dL (< or = 0.50)
[2024-07-11] MEDS: iohexoL 350 MG/ML 100 ML INFUS..BTL IV (08:35)
--- NOTE | 2024-07-11 08:41 | PC.NURSE ---
Patient reporting little improvement in pain control , MD aware, new orders obtained
[2024-07-11 09:22] LABS: Ammonia 29 umol/L (13-55)
[2024-07-11 09:52] LABS: INTERNATIONAL NORM RATIO 1.5 (0.9-1.1); Prothrombin Time 17.6 SEC (10.9-12.4)
[2024-07-11 09:55] LABS: Partial Thromboplastin Time 33.4 SEC (26.0-36.8)
--- NOTE | 2024-07-11 10:45 | PC.NURSE ---
report given to SS
--- NOTE | 2024-07-11 10:54 | ECG_ITS ---
Test Reason : vomiting Blood Pressure : */* mmHG Vent. Rate : 90 BPM Atrial Rate : 90 BPM P-R Int : 164 ms QRS Dur : 84 ms QT Int : 412 ms P-R-T Axes : 48 50 41 degrees QTcB Int : 504 ms Normal sinus rhythm Prolonged QT Abnormal ECG When compared with ECG of 21-Feb-2024 13:56, No significant change was found Referred By: Benji Lam Electronically Signed By: KEVEN ZAMORANO MD
--- NOTE | 2024-07-11 11:17 | PM.HPGS ---
History of Present Illness History of Present Illness Date of Service: 07/11/24 <Karey Saldaña PA-C - Last Filed: 07/11/24 11:38> 07/11/24 <Rory Khan MD - Last Filed: 07/11/24 11:45> Chief complaint: TIPs Procedure done here yesterday , AB pain <Karey Saldaña PA-C - Last Filed: 07/11/24 11:38> Narrative: Akash Barboza is a 58 year old male with PMH diabetes mellitus, colon cancer s/p R hemicolectomy, pancreatic cancer, hx of pulmonary embolism, 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 Procedure was uncomplicated and hospital stay was uneventful. He was discharged on POD#1, yesterday. He reports he has a known umbilical hernia and developed severe pain last night at the hernia site. He developed nausea, vomiting. He reports his last BM was in the ICU yesterday. He denies passing flatus. Given the severity of the pain he presented the to the ED where the umbilical hernia was attempted to be reduced however was unsuccessful by the ED provider and advertising copywriter. CT scan performed which showed the umbilical/periumbilical herniation of a fluid-filled prominent segmental small bowel loops with a twisting/swirling morphology pattern with dilatation of the proximal small bowel loops with multiple air-fluid levels and decompression of the distal ileal loops. CBC, BMP, LFTs obtained. H/H increased to 10.7/33.7, plt 196, total bili 2.1. PT/INR 17.6/1.5. He reports continued severe pain at the hernia site and nausea. He has a hx of PE and was previously on apixaban however has been taken off this by Pulmonology (Antonio) and has been doing well. <Karey Saldaña PA-C - Last Filed: 07/11/24 11:38> Review of Systems Constitutional: Constitutional: Denies fever(s) <Karey Saldaña PA-C - Last Filed: 07/11/24 11:38> ENT: Denies dizziness <Karey Saldaña PA-C - Last Filed: 07/11/24 11:38> Cardiovascular: Cardiovascular: Denies chest pain and Denies dyspnea <Karey Saldaña PA-C Last Filed: 07/11/24 11:38> Respiratory: Respiratory: Denies dyspnea <Karey Saldaña PA-C Last Filed: 07/11/24 11:38> Gastrointestinal: Gastrointestinal: Reports as per HPI <Karey Saldaña PA-C Last Filed: 07/11/24 11:38> Neurologic: Denies dizziness <Karey Saldaña PA-C Last Filed: 07/11/24 11:38> PMF Past Medical History Medical History: Medical History (Updated 07/11/24 @ 10:42 by Benji Lam MD) Cirrhosis of liver Septic arthritis Hx of transfusion of packed red blood cells Umbilical hernia Anxiety Pulmonary nodule 1 cm or greater in diameter Pleuritic chest pain Pulmonary embolism, bilateral Diabetes Alcohol use disorder, moderate, dependence Recurrent left pleural effusion Pleural effusion Pericardial effusion Tachycardia Dyspnea Hydropneumothorax Pleural effusion on right Decompensation of cirrhosis of liver Cirrhosis GERD (gastroesophageal reflux disease) Esophageal varices Chronic abdominal pain Gout Peripheral neuropathy Alcoholism Elevated LFTs <Karey Saldaña PA-C Last Filed: 07/11/24 11:38> Family History Family History: Family History Mother Cancer Sister Cancer <LARRY Law Last Filed: 07/11/24 11:38> Surgical History Surgical History: Surgical History (Updated 07/09/24 @ 18:12 by Saray Antonio MD) History of carpal tunnel surgery of left wrist S/P right knee arthroscopy History of abdominal paracentesis Hx of esophagogastroduodenoscopy History of thoracentesis H/O colonoscopy H/O cervical spine surgery H/O hemicolectomy <Karey Saldaña PA-C Last Filed: 07/11/24 11:38> Social History Social History: Social History Household Members: Other Household Members Other:: roommate Housing: Apartment Are you a primary medicare contact specialist to a significant other at home: No Do you presently have visiting nurse or other home services: No Alcohol intake: current Alcohol intake frequency: a few times a week Alcohol type: beer Comment: counts correct Patient Tobacco Use Status: Never used Tobacco Tobacco use type: Smokeless Tobacco Years Smoked: 35 Smoked in Last 30 Days: No e-Cigarette/Vaping Use: Currently Using Second Hand Smoke Exposure: No Use of substances other than those prescribed or required for medical reasons: Yes Substance Use Type: Marijuana Substance Use Frequency: Chronic Longstanding Advance Directives: Yes Advance Directives on File: Yes Advance Directives Date on File: 12/03/23 Do you have a plan to hurt others: No Plan service: No Current occupational status: unemployed <Karey Saldaña PA-C - Last Filed: 07/11/24 11:38> Meds Allergies/Adverse reactions: Allergies Allergy/AdvReac Type Severity Reaction Status Date / Time No Known Drug Allergies Allergy Mild NONE Verified 07/11/24 06:38 [NO KNOWN DRUG ALLERGIES] <Karey Saldaña PA-C - Last Filed: 07/11/24 11:38> Home medications: Home Medications ?Medication ?Instructions ?Recorded ?Confirmed ?Last Taken ?Type folic acid 1 mg tablet 1 mg PO DAILY 06/10/21 07/04/24 07/08/24 History thiamine HCl (vitamin B1) 100 mg 100 mg PO DAILY 06/10/21 07/04/24 07/08/24 History tablet hydroxyzine pamoate 25 mg capsule 50 mg PO DAILY PRN itching 01/26/22 07/04/24 04/16/24 History lorazepam 0.5 mg tablet 0.5 mg PO DAILY PRN anxiety attack 07/13/22 07/04/24 04/16/24 History oxycodone 5 mg tablet 5 mg PO BID PRN Pain 03/31/24 07/04/24 07/08/24 History albuterol sulfate 90 mcg/actuation 2 puff inhalation Q6H PRN 04/18/24 07/04/24 04/16/24 History aerosol inhaler Shortness Of Breath Or Wheezing gabapentin 300 mg capsule 300 mg PO DAILY 06/03/24 07/04/24 07/09/24 07:00 History furosemide 40 mg tablet 40 mg PO BID 07/03/24 07/04/24 07/08/24 History spironolactone 100 mg tablet 100 mg PO BID 01/03/1907/04/24 07/08/24 History bupropion HCl 300 mg 24 hr tablet, 300 mg PO DAILY 07/09/24 07/09/24 Unknown History extended release paroxetine HCl 20 mg tablet 20 mg PO DAILY 07/09/24 07/09/24 Unknown History rifaximin 550 mg tablet (Xifaxan) 550 mg PO BID 07/09/24 07/09/24 Unknown History ropinirole 0.25 mg tablet 0.25 - 0.5 mg PO DAILY PRN 07/09/24 07/09/24 Unknown History restless legs <LARRY Law Last Filed: 07/11/24 11:38> Physical Exam Vital Signs: Vital Signs: Last Vital Signs Temp 97.7 F 07/11/24 06:35 Pulse 102 H 07/11/24 08:07 Resp 20 07/11/24 08:36 BP 144/86 H 07/11/24 08:07 Pulse Ox 98 07/11/24 08:07 O2 Del Method Room Air 07/11/24 08:07 BMI result Body Mass Index 25.3 <Karey Saldaña PA-C [employer] Last Filed: 07/11/24 11:38> Const: General: comfortable, no acute distress and alert <LARRY Law Last Filed: 07/11/24 11:38> Orientation/consciousness: patient oriented x3 <LARRY Law Last Filed: 07/11/24 11:38> Resp: Effort & Inspection: normal respiratory effort <LARRY Law Last Filed: 07/11/24 11:38> GI: Other: large incarcerated umbilical hernia, very tender to palpation, no overlying erythema <LARRY Law Last Filed: 07/11/24 11:38> Inspection: Yes distended <LARRY Law Last Filed: 07/11/24 11:38> Palpation (GI): Soft to palpation, Tenderness to palpation present (GI) and no guarding <LARRY Law Last Filed: 07/11/24 11:38> Skin: General skin exam: no rashes or lesions noted <Kraey Saldaña PA-C [facility] Last Filed: 07/11/24 11:38> Neuro: General: patient oriented x3 <Karey Saldaña PA-C [facility] Last Filed: 07/11/24 11:38> Results Results Labs: Short CBC 07/11/24 Range/Units 06:44 WBC 6.1 (4.8-10.8) X10*3/uL Hgb 10.7 L D (14.0-18.0) g/dl Hct 33.7 L (42.0-52.0) % Plt Count 196 (160-400) X10*3/uL BMP 07/11/24 06:44 Sodium 135 Potassium 3.7 Chloride 104 Carbon Dioxide 22 BUN 8 L Creatinine 0.73 Calcium 8.9 Liver Function 07/11/24 Range/Units 06:44 Total Bilirubin 2.1 H (0.0-1.0) mg/dL Direct Bilirubin 0.9 H (0.0-0.5) mg/dL AST 46 H (5-37) U/L ALT 15 (0-40) U/L Alkaline Phosphatase 177 H (39-117) U/L Albumin 3.4 L (3.5-5.0) g/dL <Karey Saldaña PA-C [facility] Last Filed: 07/11/24 11:38> Chest x-ray: report reviewed and image reviewed <Karey Saldaña PA-C Last Filed: 07/11/24 11:38> Abdomen CT scan report/results: report reviewed and image reviewed <Karey Saldaña PA-C [facility] Last Filed: 07/11/24 11:38> Assessment and Plan (1) Small bowel obstruction: Status: Acute <Karey Saldaña PA-C [facility] Last Filed: 07/11/24 11:38> (2) Umbilical hernia, incarcerated: Status: Acute <Karey Saldaña PA-C [facility] Last Filed: 07/11/24 11:38> (3) Cirrhosis of liver: Status: Acute <Karey Saldaña PA-C [facility] Last Filed: 07/11/24 11:38> 58 year old male with PMH diabetes mellitus, colon cancer s/p R hemicolectomy, pancreatic cancer, hx of pulmonary embolism, ESLD complicated by ascites, portal hypertension, esophageal varices who underwent uneventful TIPS and paracentesis on 07/09/24 now presenting with acute onset of pain at his umbilical hernia with associated nausea, vomiting. CT scan shows umbilical hernia containing a small bowel loop with dilated proximal loops consistent with incarcerated umbilical hernia with SBO. Patient has been admitted to the surgical service for further treatment of the incarcerated umbilical hernia, SBO. Given his significant comorbidities he is a high surgical risk and this was discussed with him however given the incarcerated umbilical hernia containing small bowel and obstruction, it was recommended to proceed with repair of the umbilical hernia, possible small bowel resection. Will currently hold off on NGT given the known esophageal varices and discuss insertion with anesthesia. Will consult hospitalists for management of medical comorbidities. <Karey Saldaña PA-C - Last Filed: 07/11/24 11:38> 58 year old male with PMH diabetes mellitus, colon cancer s/p R hemicolectomy, pancreatic cancer, hx of pulmonary embolism, ESLD complicated by ascites, portal hypertension, esophageal varices who underwent uneventful TIPS and paracentesis on 07/09/24 now presenting with acute onset of pain at his umbilical hernia with associated nausea, vomiting. CT scan shows umbilical hernia containing a small bowel loop with dilated proximal loops consistent with incarcerated umbilical hernia with SBO. Patient has been admitted to the surgical service for further treatment of the incarcerated umbilical hernia, SBO. Given his significant comorbidities he is a high surgical risk and this was discussed with him however given the incarcerated umbilical hernia containing small bowel and obstruction, it was recommended to proceed with repair of the umbilical hernia, possible small bowel resection. Will currently hold off on NGT given the known esophageal varices and discuss insertion with anesthesia. Will consult hospitalists for management of medical comorbidities. As noted above, the patient's situation was extensively reviewed with him. He has very significant comorbidities and poses a very high operative risk. Unfortunately based on his clinical and CT scan findings he has an incarcerated strangulated umbilical hernia which requires intervention. As noted above the risks, benefits and alternatives were extensively reviewed which included but not limited to bleeding, infection, recurrence, numbness, pain, scarring, vent dependence, prolonged ICU stay, even and the patient wishes to proceed. All questions answered. Patient is being added as an emergent case to the OR now. <Rory Khan MD - Last Filed: 07/11/24 11:45> Quality Stroke Does the patient have a stroke diagnosis?: No <Karey Saldaña PA-C - Last Filed: 07/11/24 11:38> VTE Prior VTE?: Yes <Karey Saldaña PA-C - Last Filed: 07/11/24 11:38> VTE Risk Level:: Surgical - high <Karey Saldaña PA-C - Last Filed: 07/11/24 11:38> VTE Device Contraindication: N/A - Device Ordered <Karey Saldaña PA-C - Last Filed: 07/11/24 11:38> VTE Drug Contraindication: Treatment Not Indicated (hx of GI bleed, anemia ) <Karey Saldaña PA-C - Last Filed: 07/11/24 11:38> Procedures Date of Service Date of Service: 07/11/24 <Karey Saldaña PA-C - Last Filed: 07/11/24 11:38> 07/11/24 <Rory Khan MD - Last Filed: 07/11/24 11:45>
[2024-07-11 11:29] LABS: Magnesium 1.8 mg/dL (1.6-2.6)
[2024-07-11] MEDS: Lactated Ringers 1,000 ML 80 ML IVCONT ×2 (11:51→18:11)
[2024-07-11] MEDS: Erythromycin Lactobionate 250 MG in 0.9 % Sodium Chloride 100 ML 100 MG IV (12:35)
--- NOTE | 2024-07-11 14:40 | HO.ANESPROP2 ---
HPI - Anesthesia Eval Consult details Narrative: 58 yo M s/p TIPS on 07/09/24 admitted with incarcerated umbilical hernia PMFSH Active Problems Active Problems: All Active Problems Umbilical hernia, incarcerated (Acute) Small bowel obstruction (Acute) Cirrhosis of liver (Acute) S/P TIPS (transjugular intrahepatic portosystemic shunt) (Acute) Acute blood loss anemia (Acute) Bilateral knee pain (Acute) Alcoholic cirrhosis of liver with ascites (Acute) Lung mass (Acute) Upper GI bleeding (Acute) Pancreatic malignant neoplasm (Acute) Diarrhea (Acute) Retroperitoneal mass (Acute) Non-compliance (Acute) Cellulitis (Acute) Septic arthritis of knee, right (Acute) Septic arthritis of knee, right (Acute) Swelling of right knee joint (Acute) Septic arthritis of knee, right (Acute) Abnormal gastrointestinal PET scan (Acute) Gallbladder polyp (Acute) Nausea (Acute) Pleural effusion (Acute) Shortness of breath (Acute) Anemia (Acute) Varices of esophagus determined by endoscopy (Acute) Ascites (Acute) Newly diagnosed diabetes (Acute) 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 (Acute) Acute pancreatitis (Acute) Blood D-dimer assay positive (Acute) Dyspnea (Acute) Pericardial effusion (Acute) Alcohol use disorder, moderate, in early remission (Acute) Hyperammonemia (Acute) Hepatopulmonary syndrome (Acute) Bronchopneumonia (Acute) Hydrothorax (Acute) Alcoholic cirrhosis of liver (Acute) Portal vein thrombosis (Acute) Alcohol withdrawal (Acute) Elevated liver function tests (Acute) Irritable bowel syndrome with diarrhea (Acute) Pleural effusion (Acute) Acute alcoholic pancreatitis (Acute) Neuropathic pain (Acute) Multiple adenomatous polyps (Acute) Degenerative disc disease, cervical (Acute) Chronic low back pain (Acute) Spinal stenosis (Acute) Pulmonary nodule 1 cm or greater in diameter (Acute) Pulmonary embolism, bilateral (Acute) Pleuritic chest pain (Acute) Recurrent left pleural effusion (Acute) Pleural effusion (Acute) Pericardial effusion (Acute) Tachycardia (Acute) Dyspnea (Acute) Past Medical History Medical History (Updated 07/11/24 @ 10:42 by eBnji Lam MD) Cirrhosis of liver Septic arthritis Hx of transfusion of packed red blood cells Umbilical hernia Anxiety Pulmonary nodule 1 cm or greater in diameter Pleuritic chest pain Pulmonary embolism, bilateral Diabetes Alcohol use disorder, moderate, dependence Recurrent left pleural effusion Pleural effusion Pericardial effusion Tachycardia Dyspnea Hydropneumothorax Pleural effusion on right Decompensation of cirrhosis of liver Cirrhosis GERD (gastroesophageal reflux disease) Esophageal varices Chronic abdominal pain Gout Peripheral neuropathy Alcoholism Elevated LFTs Family History Family History Mother Cancer Sister Cancer Family history of problems with anesthesia: No Surgical History Surgical History (Updated 07/09/24 @ 18:12 by Saray Antonio MD) History of carpal tunnel surgery of left wrist S/P right knee arthroscopy History of abdominal paracentesis Hx of esophagogastroduodenoscopy History of thoracentesis H/O colonoscopy H/O cervical spine surgery H/O hemicolectomy History of Problems with Anesthesia: No Social History Social History Household Members: Other Household Members Other:: roommate Housing: Apartment Are you a primary medicare specialist to a significant other at home: No Do you presently have visiting nurse or other home services: No Alcohol intake: current Alcohol intake frequency: does not drink Alcohol type: beer Comment: counts correct Patient Tobacco Use Status: Current everyday Tobacco user Tobacco use type: Smokeless Tobacco Years Smoked: 35 Smoked in Last 30 Days: No e-Cigarette/Vaping Use: Currently Using Second Hand Smoke Exposure: No Use of substances other than those prescribed or required for medical reasons: Yes Substance Use Type: Marijuana Substance Use Frequency: Chronic Longstanding Have you been hit, kicked, punched, or otherwise hurt by someone within the past year? If so, by whom?: No Are you DNR?: No Advance Directives: Yes Advance Directives Information Provided: No Advance Directives on File: Yes Advance Directives Date on File: 12/03/23 Do you have a plan to hurt others: No Plan Recently lost weight without trying: No Eating poorly because of decreased appetite: No Nutrition Risks: No Nutritional Risk Poor oral hygiene: No service: No Current occupational status: unemployed Meds Allergies Allergy/AdvReac Type Severity Reaction Status Date / Time No Known Drug Allergies Allergy Mild NONE Verified 07/11/24 06:38 [NO KNOWN DRUG ALLERGIES] Active Medications: Current Medications Lactated Ringer's (Lr) 1,000 mls @ 80 mls/hr IVCONT .[id number] RYAN Last Admin: 07/11/24 11:51 Dose: 80 mls/hr Home Medications ?Medication ?Instructions ?Recorded ?Confirmed ?Last Taken ?Type folic acid 1 mg tablet 1 mg PO DAILY 06/10/21 07/04/24 07/08/24 History thiamine HCl (vitamin B1) 100 mg 100 mg PO DAILY 06/10/21 07/04/24 07/08/24 History tablet hydroxyzine pamoate 25 mg capsule 50 mg PO DAILY PRN itching 01/26/22 07/04/24 04/16/24 History lorazepam 0.5 mg tablet 0.5 mg PO DAILY PRN anxiety attack 07/13/22 07/04/24 04/16/24 History oxycodone 5 mg tablet 5 mg PO BID PRN Pain 03/31/24 07/04/24 07/08/24 History albuterol sulfate 90 mcg/actuation 2 puff inhalation Q6H PRN 04/18/24 07/04/24 04/16/24 History aerosol inhaler Shortness Of Breath Or Wheezing gabapentin 300 mg capsule 300 mg PO DAILY 06/03/24 07/04/24 07/09/24 07:00 History furosemide 40 mg tablet 40 mg PO BID 07/03/24 07/04/24 07/08/24 History spironolactone 100 mg tablet 100 mg PO BID 07/03/24 07/04/24 07/08/24 History bupropion HCl 300 mg 24 hr tablet, 300 mg PO DAILY 07/09/24 07/09/24 Unknown History extended release paroxetine HCl 20 mg tablet 20 mg PO DAILY 07/09/24 07/09/24 Unknown History rifaximin 550 mg tablet (Xifaxan) 550 mg PO BID 07/09/24 07/09/24 Unknown History ropinirole 0.25 mg tablet 0.25 - 0.5 mg PO DAILY PRN 07/09/24 07/09/24 Unknown History restless legs Exam Exam Date and Time: 07/11/24 1315 Height,Weight and Vital Signs: Height 6 ft 5 in Weight 96.7 kg Last Vital Signs Temp 99.3 F 07/11/24 13:49 Pulse 97 07/11/24 13:49 Resp 16 07/11/24 13:49 BP 139/86 07/11/24 13:49 Pulse Ox 98 07/11/24 11:26 O2 Del Method Room Air 07/11/24 11:26 Pertinent Lab Results Pertinent Lab Results: Laboratory Tests 07/11/24 07/11/24 07/11/24 06:44 09:09 09:24 WBC 6.1 RBC 4.30 L D Hgb 10.7 L D Hct 33.7 L MCV 78.4 L MCH 24.9 L MCHC 31.8 RDW 17.2 H Plt Count 196 MPV 8.5 L Immature Gran % (Auto) 0.5 H Neut % (Auto) 74.0 H Lymph % (Auto) 9.8 L [place] % (Auto) 14.3 H Eos % (Auto) 0.7 Baso % (Auto) 0.7 Lymph # (Auto) 0.6 L [place] # (Auto) 0.9 Eos # (Auto) 0.0 Baso # (Auto) 0.0 Abs Immat Gran (auto) 0.03 Absolute Neuts (auto) 4.5 Absolute Nucleated RBC 0.000 Nucleated RBC % (auto) 0.0 PT 17.6 H D INR 1.5 H APTT 33.4 Sodium 135 Potassium 3.7 Chloride 104 Carbon Dioxide 22 Anion Gap 13 BUN 8 L Creatinine 0.73 Estim Creat Clear Calc 142.3 Estimated GFR > 60 Random Glucose 161 H Calcium 8.9 Magnesium 1.8 Total Bilirubin 2.1 H Direct Bilirubin 0.9 H AST 46 H ALT 15 Alkaline Phosphatase 177 H Ammonia 29 C-Reactive Protein 1.18 H Total Protein 7.1 Albumin 3.4 L Blood Type Antibody Screen 07/11/24 11:59 WBC RBC Hgb Hct MCV MCH MCHC RDW Plt Count MPV Immature Gran % (Auto) Neut % (Auto) Lymph % (Auto) [place] % (Auto) Eos % (Auto) Baso % (Auto) Lymph # (Auto) [place] # (Auto) Eos # (Auto) Baso # (Auto) Abs Immat Gran (auto) Absolute Neuts (auto) Absolute Nucleated RBC Nucleated RBC % (auto) PT INR APTT Sodium Potassium Chloride Carbon Dioxide Anion Gap BUN Creatinine Estim Creat Clear Calc Estimated GFR Random Glucose Calcium Magnesium Total Bilirubin Direct Bilirubin AST ALT Alkaline Phosphatase Ammonia C-Reactive Protein Total Protein Albumin Blood Type A Positive Antibody Screen NEGATIVE Airway Mallampati Class: III TM Dist: >3cm Neck ROM: Full Loose/Missing/Broken Teeth: Yes (very poor dentition - multiple broken and missing teeth) Heart: S1S2 Lungs: CTAB Assessment and Plan Assessment Anesthesia Assessment: Anesthesia Plan Discussed and Chart Reviewed Final Anesthetic Review Family History of Problems with Anesthesia: No History of Problems with Anesthesia: No NPO: Yes ASA Class: IV Final Preanesthetic Review: No Changes in Pt Med Stat, Meds/Allgs Chart Reviewed, Consent Obtained/Reviewed and Anes Risks/Benef Reviewed Patient Risk: High Procedure Risk: Intermediate Anesthetic Plan Anesthetic Plan: MAC: and Agree w/ Assess. and Plan Disposition: Standard PACU
[2024-07-11] MEDS: HYDROmorphone HCl 0.5 MG/0.5 ML SYRINGE IVPUSH ×2 (15:55→16:00)
--- NOTE | 2024-07-11 16:51 | W.PM.OPN ---
Operative Note Operative Note Date of Service: 07/11/24 Narrative: Preoperative diagnosis: [] Incarcerated strangulated umbilical hernia Postop diagnosis: [] The same Procedure [] 1. open umbilical herniorrhaphy with Bard mesh 2. placement of peritoneal dialysis catheter 3. Drainage of ascitic fluid Surgeon: [] Bill Mechanical Cad Designer: [] Piper Martin Type of Anesthesia: [] Mac Indication for surgery: [] Patient is a 58-year-old male with a plethora of intercurrent medical problems and comorbidities including advanced cirrhosis for which he has high-volume paracentesis periodically (sometimes 10 L of the time), he underwent tips procedure 2 days ago here at [facility] and now presents with an incarcerated strangulated umbilical hernia. Intraoperative findings demonstrated 2600 cc of ascitic fluid, and incarcerated large (roughly 5 cm) incarcerated umbilical hernia with small bowel contents. Small bowel was mildly ischemic but once relieved of the obstruction, and was pink and viable and returned into the abdominal cavity. Findings: [] Because of his highly tenuous health status, patient underwent the above procedure under MAC with local wound infiltration. Patient brought to the operating room, placed on operative table supine position, after an adequate level of MAC anesthesia was induced, the patient's abdomen was prepped and draped in usual sterile fashion with this was profoundly distended secondary to the ascites. Patient had also a protruding hernia which stuck out at least 6-7 cm from the abdominal wall. A supraumbilical curvilinear incision was made and carried down through skin, subcutaneous tissue where a multiloculated air hernia sac was encountered. This was from the posterior aspect of the umbilicus and dissected down through the fascia with the sac was opened, ascitic fluid drained, and the knuckle of small bowel incarcerated and strangulated was reduced by opening of the fascia and findings noted above. The fascia was circumferentially cleared. The redundant protruding skin and soft tissue u of the umbilicus was amputated using cutting Bovie. It was decided because of the significant history of recurrent high-volume ascites, to place a peritoneal dialysis catheter to help alleviate pressure on the hernia repair/incision. This was accomplished through the left lower quadrant were an incision was made and the peritoneal dialysis catheter tunneled into the abdominal cavity. An exit site 2nd incision was made for the exit portion. This was secured to the skin using 2-0 nylon. Next the hernia was addressed by patient was in the appropriate sized dual mesh and circumferentially sutured in the superficial layer of the mesh to the surrounding fascia using interrupted 0 Ethibond suture. At completion of procedure, mesh was in good position with no gaps or tension. The subcutaneous tissue was reapproximated using interrupted 3-0 Vicryl sutures. Skin was closed using interrupted inverted dermal 3-0 Vicryl sutures followed by Steri-Strips and sterile dressings. Wound was infiltrated at the beginning at the end of the case with 0.5% Marcaine/1% lidocaine. Sponge, needle, and instrument counts reported correct. Patient tolerated the procedure well and emerged from anesthesia stable condition. EBL minimal
[2024-07-11 16:58] LABS: Glucose, Whole Blood 139 mg/dL (60-115)
[2024-07-11] MEDS: 0.9 % Sodium Chloride Flush 3 ML SYRINGE IVFLUSH ×2 (18:16→19:50)
[2024-07-11] MEDS: HYDROmorphone HCl 1 MG/ML SYRINGE 0.5 MG IVPUSH (18:28)
--- NOTE | 2024-07-11 19:15 | PHA.MEDREC ---
Pharmacy Consult ? Medication Reconciliation Pharmacy has completed the medication reconciliation. Spoke with patient. Patient confirmed he is no longer taking Eliquis and also confirmed he is on no diabetes medications.
[2024-07-11 20:47] LABS: Glucose, Whole Blood 192 mg/dL (60-115)
[2024-07-12] VITALS (7 sets, daily range): BP systolic 129–147; BP diastolic 74–86; PULSE 84–99; RESP 16–18; TEMP 36.2–36.7; O2SAT 98–100
[2024-07-12] MEDS: Spironolactone 25 MG TABLET 100 MG PO ×2 (00:36→09:18)
[2024-07-12] MEDS: HYDROmorphone HCl 1 MG/ML SYRINGE 0.5 MG IVPUSH ×3 (00:36→09:27)
[2024-07-12] MEDS: carvediloL 6.25 MG TABLET PO ×2 (00:36→09:17)
[2024-07-12] MEDS: Lactated Ringers 1,000 ML 80 ML IVCONT (05:10)
[2024-07-12] MEDS: oxyCODONE HCl Immed Release 5 MG TABLET PO (06:22)
[2024-07-12 06:35] LABS: MANUAL DIFF FLAG NO
[2024-07-12 06:37] LABS: Basophils Percent Auto 0.3 % (0-2); Hematocrit 30.2 % (42.0-52.0); Hemoglobin 9.4 g/dl (14.0-18.0); Imm Gran Abs Auto 0.02 X10*3/uL (0.00-0.03); Imm Gran Pct Auto 0.3 % (0.0-0.4); Lymphocytes Absolute Auto 0.5 X10*3/uL (1.2-4.9); Mean Corpuscular HGB Conc 31.1 g/dl (31.0-36.0); Mean Corpuscular Hemoglobin 25.2 pg (27.0-33.0); Mean Platelet Volume 8.5 fL (9.4-12.4); Monocytes Absolute Auto 0.9 X10*3/uL (0.1-1.2); Monocytes Percent Auto 12.6 % (2-11); Neutrophils Absolute Auto 5.9 x10*3/uL (2.0-8.3); Neutrophils Percent Auto 79.8 % (45-73); Platelet Count 171 X10*3/uL (160-400); Red Blood Count 3.73 X10*6/uL (4.60-5.80); White Blood Count 7.4 X10*3/uL (4.8-10.8)
[2024-07-12 06:55] LABS: Anion Gap 11 (12-20); Blood Urea Nitrogen 9 mg/dL (9-16); Calcium 8.6 mg/dL (8.4-10.2); Carbon Dioxide 25 mmol/L (22-29); Chloride 102 mmol/L (96-108); Creatinine Clr Calc Pharmacy 162.4; Estimated Glomerular Filt Rate > 60; Glucose Random 121 mg/dL (60-115); Sodium 134 mmol/L (135-145)
[2024-07-12] MEDS: Omeprazole 40 MG CAPSULE.DR PO (09:17)
[2024-07-12] MEDS: Ferrous Sulfate 324 MG TABLET.DR PO (09:19)
[2024-07-12] MEDS: Thiamine HCL 100 MG TABLET PO (09:19)
[2024-07-12] MEDS: Folic Acid 1 MG TABLET PO (09:19)
[2024-07-12] MEDS: Gabapentin 300 MG CAPSULE PO (09:19)
[2024-07-12] MEDS: 0.9 % Sodium Chloride Flush 3 ML SYRINGE IVFLUSH (09:23)
--- NOTE | 2024-07-12 10:36 | MHC.CM.PN ---
Addendum entered by Rosie Farrar 07/12/24 15:44: PT UNABLE TO FIND A RIDE, LYFT TRANSPORT ARRANGED Addendum entered by Rosie Farrar 07/12/24 15:14: PT CLEARED FOR DC HOME TODAY WITH VNA SERVICES REFERRAL PLACED TO SEVERAL AGENCIES, TWO HAVE DECLINED, AND SEVERAL HAVE NOT ANSWERED PT STATES HE WOULD LIKE TO DC NOW WHILE HE HAS A RIDE PER DISCUSSION, PT WILL DC AND CM WILL CONTACT HIM ONCE REFERRALS HAVE BEEN ANSWERED PT UNDERSTANDS THERE IS A CHANCE NO AGENCIES WILL ACCEPT, HE STATES HE WILL SEE HIS SPECIALIST IF NEEDED AND WILL BE FOLLOWING UP WITH SURGERY THIS WEEK. PT WILL SELF ARRANGE TRANSPORT Original Note: PT REPORTS HE LIVES WITH A ROOMMATE AND IS INDEPENDENT WITH CARE HE HAS NO SERVICES AND A [facility] FOR DME HCP ON FILE PCP: VALORIE GARCÍA IMM DELIVERED DCP: HOME NO SERVICES PT WILL NEED LYFT/SHUTTLE TRANSPORT ARRANGED
--- NOTE | 2024-07-12 10:57 | HO.POSTANES ---
Post Anesthesia Evaluation Post Anesthesia Evaluation Date of Service: 07/12/24 Vital Signs: Vital Signs Temp Pulse Resp BP Pulse Ox O2 Del Method 07/12/24 07:01 98.1 F 91 18 147/79 H 99 Room Air 07/12/24 05:40 16 07/12/24 05:10 18 07/12/24 03:14 97.9 F 92 16 129/74 98 Room Air 07/12/24 00:36 18 07/12/24 00:25 97.2 F 99 18 140/86 H 98 Room Air Anesthesia: Monitored Mental Status: Awake Pain Control: Satisfactory Nausea/Vomiting: None Hydration: Adequate Anesthesia-Related Issues: No Anes. Related Issues
--- NOTE | 2024-07-12 11:24 | P.CONHOSP_ITS ---
History of Present Illness Data of Consult Service Date: 07/12/24 Primary Care Provider: Martin Avilez MD [facility] Reason for consult: Medical management Pt is a 58 year old male with a complicated PMH with numerous medical issues including alcoholic liver cirrhosis, hx of PE in 2023 on Eliquis, portal hypertension gastropathy, esophageal varices, adenoma of the colon, pancreatic cancer, and mood disorder who recently underwent elective TIPS procedure 3 days prior on 07/09/2024. Pt was discharged from the hospital on 07/10/2024 and re- presented to the ED the following morning complaining of severe abdominal pain with nausea and vomiting. Workup in the ED showed pt had incarcerated strangulated umbilical hernia and pt was admitted under general surgery services for emergent hernia repair. Hospitalist consult for medical management. POD1. Pt seen and evaluated in his room where he is up and out of bed and sitting comfortably in a chair by the window. Pt reports pain currently well-controlled and has had no difficulties ambulating. Reports already had 2 small bowel movements earlier in the morning. No bleeding. Denies any acute medical complaints and says overall he feels well. No chest pain/pressure, palpitations. Denies nausea, vomiting. No lightheadedness or dizziness. Review of Systems 2 Review of Systems: Negative except for that which is stated in the HPI [facility] Medical History Cirrhosis of liver Septic arthritis Hx of transfusion of packed red blood cells Umbilical hernia Anxiety Pulmonary nodule 1 cm or greater in diameter Pleuritic chest pain Pulmonary embolism, bilateral Diabetes Alcohol use disorder, moderate, dependence Recurrent left pleural effusion Pleural effusion Pericardial effusion Tachycardia Dyspnea Hydropneumothorax Pleural effusion on right Decompensation of cirrhosis of liver Cirrhosis GERD (gastroesophageal reflux disease) Esophageal varices Chronic abdominal pain Gout Peripheral neuropathy Alcoholism Elevated LFTs Family History Mother Cancer Sister Cancer Surgical History History of carpal tunnel surgery of left wrist S/P right knee arthroscopy History of abdominal paracentesis Hx of esophagogastroduodenoscopy History of thoracentesis H/O colonoscopy H/O cervical spine surgery H/O hemicolectomy Social History Household Members: Other Household Members Other:: roomate Housing: Apartment Are you a primary customer care consultant to a significant other at home: No Do you presently have visiting nurse or other home services: No Alcohol intake: current Alcohol intake frequency: does not drink Alcohol type: beer Comment: counts correct Patient Tobacco Use Status: Former Tobacco user Tobacco use type: Smokeless Tobacco Years Smoked: 35 e-Cigarette/Vaping Use: Former Use Second Hand Smoke Exposure: No Substance Use Type: Marijuana Advance Directives Date on File: 12/03/23 service: No Current occupational status: unemployed Meds Allergies Allergy/AdvReac Type Severity Reaction Status Date / Time No Known Drug Allergies Allergy Mild NONE Verified 07/11/24 06:38 [NO KNOWN DRUG ALLERGIES] Active Medications: Current Medications Acetaminophen (Acetaminophen 325 Mg Tablet) 650 mg PO Q6H PRN PRN Reason: Pain, Mild 1-3,fever,headache Albuterol Sulfate (Albuterol Sulfate 90 Mcg 8 Gm Inhaler) 2 puff INHALE Q6H PRN PRN Reason: Shortness Of Breath Or Wheezing Calcium Carbonate (Calcium Carbonate 750 Mg Tab.Chew) 750 mg PO Q4H PRN PRN Reason: Heartburn Carvedilol (Carvedilol 6.25 Mg Tablet) 6.25 mg PO BID [facility]; Protocol Last Admin: 07/12/24 09:17 Dose: 6.25 mg Ferrous Sulfate (Ferrous Sulfate 324 Mg Tablet.Dr) 324 mg PO DAILY [facility] Last Admin: 07/12/24 09:19 Dose: 324 mg Folic Acid (Folic Acid 1 Mg Tablet) 1 mg PO DAILY [facility] Last Admin: 07/12/24 09:19 Dose: 1 mg Gabapentin (Gabapentin 300 Mg Capsule) 300 mg PO DAILY [facility] Last Admin: 07/12/24 09:19 Dose: 300 mg Hydromorphone HCl (Hydromorphone Hcl 1 Mg/Ml Syringe) 0.5 mg IVPUSH Q4H PRN; Protocol PRN Reason: Pain, Severe (Pain Scale 7-10) Last Admin: 07/12/24 09:27 Dose: 0.5 mg Hydroxyzine HCl (Hydroxyzine Hcl 50 Mg Tablet) 50 mg PO DAILY PRN PRN Reason: itching Lactated Ringer's (Lr) 1,000 mls @ 80 mls/hr IVCONT .[id number] [facility] Last Admin: 07/12/24 05:10 Dose: 80 mls/hr Lorazepam (Lorazepam 0.5 Mg Tablet) 0.5 mg PO DAILY PRN PRN Reason: anxiety attack Magnesium Hydroxide (Milk Of Magnesia 30 Ml Oral.Susp) 30 ml PO DAILY PRN PRN Reason: Constipation Melatonin (Melatonin 3 Mg Tablet) 6 mg PO BEDTIME PRN PRN Reason: Insomnia Naloxone HCl (Naloxone Hcl 0.4 Mg/Ml Vial) 0.04 mg IVPUSH Q5M PRN PRN Reason: Excessive sedation or RR < 8 Omeprazole (Omeprazole 40 Mg Capsule.Dr) 40 mg PO DAILY [facility] Last Admin: 07/12/24 09:17 Dose: 40 mg Ondansetron HCl (Ondansetron Hcl 4 Mg/2 Ml Vial) 4 mg IVPUSH Q8H PRN PRN Reason: Nausea and Vomiting Oxycodone HCl (Oxycodone Hcl Immed Release 5 Mg Tablet) 5 mg PO Q4H PRN PRN Reason: Pain, Moderate(Pain Scale 4-6) Last Admin: 07/12/24 06:22 Dose: 5 mg Sodium Chloride (0.9 % Sodium Chloride Flush 3 Ml Syringe) [facility] Last Admin: 07/12/24 09:23 Dose: 3 ml Spironolactone (Spironolactone 25 Mg Tablet) 100 mg PO BID [facility]; Protocol Last Admin: 07/12/24 09:18 Dose: 100 mg Thiamine HCl (Thiamine Hcl 100 Mg Tablet) 100 mg PO DAILY [facility] Last Admin: 07/12/24 09:19 Dose: 100 mg Home Medications ?Medication ?Instructions ?Recorded ?Confirmed ?Last Taken ?Type folic acid 1 mg tablet 1 mg PO DAILY 06/10/21 07/11/24 07/08/24 History thiamine HCl (vitamin B1) 100 mg 100 mg PO DAILY 06/10/21 07/11/24 07/08/24 History tablet hydroxyzine pamoate 25 mg capsule 50 mg PO DAILY PRN itching 01/26/22 07/11/24 04/16/24 History lorazepam 0.5 mg tablet 0.5 mg PO DAILY PRN anxiety attack 07/13/22 07/11/24 04/16/24 History oxycodone 5 mg tablet 5 mg PO BID PRN Pain 10/07/24 01/17/25 01/14/25 History albuterol sulfate 90 mcg/actuation 2 puff inhalation Q6H PRN 04/18/24 07/11/24 04/16/24 History aerosol inhaler Shortness Of Breath Or Wheezing gabapentin 300 mg capsule 300 mg PO DAILY 06/03/24 07/11/24 07/09/24 07:00 History furosemide 40 mg tablet 40 mg PO BID 07/03/24 07/11/24 07/08/24 History spironolactone 100 mg tablet 100 mg PO BID 07/03/24 07/11/24 07/08/24 History bupropion HCl 300 mg 24 hr tablet, 300 mg PO DAILY 07/09/24 07/11/24 Unknown History extended release paroxetine HCl 20 mg tablet 20 mg PO DAILY 07/09/24 07/11/24 Unknown History rifaximin 550 mg tablet (Xifaxan) 550 mg PO BID 07/09/24 07/11/24 Unknown History ropinirole 0.25 mg tablet 0.25 - 0.5 mg PO DAILY PRN 07/09/24 07/11/24 Unknown History restless legs Physical Exam 2 Vital Signs and Narrative: Vital Signs: Last Vital Signs Temp 98.1 F 07/12/24 07:01 Pulse 91 07/12/24 07:01 Resp 18 07/12/24 07:01 BP 147/79 H 07/12/24 07:01 Pulse Ox 99 07/12/24 07:01 O2 Del Method Room Air 07/12/24 07:01 O2 Flow Rate 2 07/11/24 16:43 BMI result Body Mass Index 25.3 General: AOx3, no acute distress Resp: CTA bilaterally CVS: S1, S2, RRR GI: +BS, mild lower abd tenderness, abd with drain and wrapped in clean dressing Skin: Warm, dry Neuro: Cranial nerves II-XII grossly intact bilaterally. Motor grossly intact bilaterally Extremities: No edema Psych: Appropriate affect Results Labs 07/12/24 06:30 07/12/24 06:30 Labs: Laboratory Results - last 24 hr 07/11/24 07/11/24 07/11/24 06:44 11:59 16:54 MCV MCH MCHC RDW Plt Count MPV Immature Gran % (Auto) Neut % (Auto) Lymph % (Auto) [place] % (Auto) Eos % (Auto) Baso % (Auto) Lymph # (Auto) [place] # (Auto) Eos # (Auto) Baso # (Auto) Abs Immat Gran (auto) Absolute Neuts (auto) Absolute Nucleated RBC Nucleated RBC % (auto) Anion Gap Estim Creat Clear Calc Estimated GFR POC Glucose 139 H Random Glucose Calcium Magnesium 1.8 Blood Type A Positive Antibody Screen NEGATIVE 07/11/24 07/12/24 20:40 06:30 MCV 81.0 MCH 25.2 L MCHC 31.1 RDW 17.0 H Plt Count 171 MPV 8.5 L Immature Gran % (Auto) 0.3 Neut % (Auto) 79.8 H Lymph % (Auto) 7.0 L [place] % (Auto) 12.6 H Eos % (Auto) 0.0 Baso % (Auto) 0.3 Lymph # (Auto) 0.5 L [place] # (Auto) 0.9 Eos # (Auto) 0.0 Baso # (Auto) 0.0 Abs Immat Gran (auto) 0.02 Absolute Neuts (auto) 5.9 Absolute Nucleated RBC 0.000 Nucleated RBC % (auto) 0.0 Anion Gap 11 L Estim Creat Clear Calc 162.4 Estimated GFR > 60 POC Glucose 192 H Random Glucose 121 H Calcium 8.6 Magnesium Blood Type Antibody Screen Assessment and Plan (1) Umbilical hernia, incarcerated: Status: Acute Plan Pt is a 58 year old male with a complicated PMH with numerous medical issues including alcoholic liver cirrhosis, hx of PE in 2023 on Eliquis, portal hypertension gastropathy, esophageal varices, adenoma of the colon, pancreatic cancer, and mood disorder who recently underwent elective TIPS procedure 3 days prior on 07/09/2024. Pt was discharged from the hospital on 07/10/2024 and re- presented to the ED the following morning complaining of severe abdominal pain with nausea and vomiting. Workup in the ED showed pt had incarcerated strangulated umbilical hernia and pt was admitted under general surgery services for emergent hernia repair. Hospitalist consult for medical management. POD1. Incarcerated strangulated umbilical hernia Pain well-controlled, drain in place Plan as per General surgery Alcoholic cirrhosis S/p TIPS procedure 3 days ago Continue Lasix, spironolactone, rifaximin, folic acid, thiamine, and lactulose HTN Continue carvedilol Restless legs syndrome Continue gabapentin, ropinirole Mood disorder Continue bupropion, lorazepam, Thank you for allowing us to participate in the care of this patient. Pt appears clinically stable. Will sign off for now. Please re-consult if any acute complaints or issues arise.
[2024-07-12] MEDS: Furosemide 40 MG TABLET PO (11:58)
[2024-07-12] MEDS: PARoxetine HCL 20 MG TABLET PO (11:59)
[2024-07-12] MEDS: rifAXIMin 550 MG TABLET PO (12:00)
[2024-07-12] MEDS: Lactulose 20 GM/30 ML SOLUTION PO ×2 (12:01→12:02)
--- NOTE | 2024-07-12 13:35 | W.MHC.F2F ---
Service Date Service Date: 07/12/24 Encounter Date of encounter: 07/12/24 Encounter: Patient will need q.o.d. peritoneal dialysis catheter drainage for his significant ascites. Patient had incarcerated ventral/umbilical hernia repair and temporary peritoneal catheter placed to allow frequent drainage of his ascites which is very high volume (10 L) to avoid excessive tension on the umbilical hernia repair. Reasons for Services Signs and symptoms assessed: Advanced cirrhosis, massive ascites, status post incarcerated strangulated hernia repair Homebound: Leaving the home is medically contraindicated at this time without the asist of a device and/or another person due th the listed conditions above and below. Reason homebound: unsteady gait / fall risk and leg weakness Certification: Based on the above findings, I certify that this patient is confined to the home and needs intermittent retirement care, physical therapy and/or speech therapy, or continues to need occupational therapy. The patient is under my care, and I have initiated the establishment of the plan of care. The patient will be followed by a physician who will periodically review the plan of care. Time Spent With Patient Time: Total time managing care of this patient today ____ minutes.
--- NOTE | 2024-07-12 13:37 | P.PNGS_ITS ---
Subjective Subjective Date of Service: 07/12/24 Interval history: Patient was doing well. He is sitting up. He is tolerating his diet. He is ambulating. He wishes to be discharged home. He says if he is not discharged home was leaving anyway. Physical Exam 2 Vital Signs: Vital Signs: Last Vital Signs Temp 98.1 F 07/12/24 07:01 Pulse 91 07/12/24 07:01 Resp 18 07/12/24 07:01 BP 147/79 H 07/12/24 07:01 Pulse Ox 99 07/12/24 07:01 O2 Del Method Room Air 07/12/24 07:01 O2 Flow Rate 2 07/11/24 16:43 BMI result Body Mass Index 25.3 GI: Other: Abdomen moderately distended. Incision dressing clean dry and intact. Peritoneum dialysis catheter in place Objective Data Active Medications Acetaminophen (Acetaminophen 325 Mg Tablet) 650 mg PO Q6H PRN PRN Reason: Pain, Mild 1-3,fever,headache Albuterol Sulfate (Albuterol Sulfate 90 Mcg 8 Gm Inhaler) 2 puff INHALE Q6H PRN PRN Reason: Shortness Of Breath Or Wheezing Bupropion HCl (Bupropion Hcl Xl 300 Mg Tab.Er.24h) 300 mg PO DAILY [facility] Last Admin: 07/12/24 13:25 Dose: Not Given Documented By: MAHENDRA Non-Admin Reason: Patient Refused Calcium Carbonate (Calcium Carbonate 750 Mg Tab.Chew) 750 mg PO Q4H PRN PRN Reason: Heartburn Carvedilol (Carvedilol 6.25 Mg Tablet) 6.25 mg PO BID [facility]; Protocol Last Admin: 07/12/24 09:17 Dose: 6.25 mg Documented By: MAHENDRA Ferrous Sulfate (Ferrous Sulfate 324 Mg Tablet.) 324 mg PO DAILY [facility] Last Admin: 07/12/24 09:19 Dose: 324 mg Documented By: MAHENDRA Folic Acid (Folic Acid 1 Mg Tablet) 1 mg PO DAILY [facility] Last Admin: 07/12/24 09:19 Dose: 1 mg Documented By: MAHENDRA Furosemide (Furosemide 40 Mg Tablet) 40 mg PO BID [facility]; Protocol Last Admin: 07/12/24 11:58 Dose: 40 mg Documented By: MAHENDRA Gabapentin (Gabapentin 300 Mg Capsule) 300 mg PO DAILY [facility] Last Admin: 07/12/24 09:19 Dose: 300 mg Documented By: MAHENDRA Hydromorphone HCl (Hydromorphone Hcl 1 Mg/Ml Syringe) 0.5 mg IVPUSH Q4H PRN; Protocol PRN Reason: Pain, Severe (Pain Scale 7-10) Last Admin: 07/12/24 09:27 Dose: 0.5 mg Documented By: MAHENDRA Hydroxyzine HCl (Hydroxyzine Hcl 50 Mg Tablet) 50 mg PO DAILY PRN PRN Reason: itching Lactated Ringer's (Lr) 1,000 mls @ 80 mls/hr IVCONT .[id number] [facility] Last Admin: 07/12/24 05:10 Dose: 80 mls/hr Documented By: DONNA Lactulose (Lactulose 20 Gm/30 Ml Solution) 20 gm PO QID [facility] Last Admin: 07/12/24 12:02 Dose: 20 gm Documented By: MAHENDRA Lorazepam (Lorazepam 0.5 Mg Tablet) 0.5 mg PO DAILY PRN PRN Reason: anxiety attack Magnesium Hydroxide (Milk Of Magnesia 30 Ml Oral.Susp) 30 ml PO DAILY PRN PRN Reason: Constipation Melatonin (Melatonin 3 Mg Tablet) 6 mg PO BEDTIME PRN PRN Reason: Insomnia Naloxone HCl (Naloxone Hcl 0.4 Mg/Ml Vial) 0.04 mg IVPUSH Q5M PRN PRN Reason: Excessive sedation or RR < 8 Omeprazole (Omeprazole 40 Mg Capsule.Dr) 40 mg PO DAILY [facility] Last Admin: 07/12/24 09:17 Dose: 40 mg Documented By: MAHENDRA Ondansetron HCl (Ondansetron Hcl 4 Mg/2 Ml Vial) 4 mg IVPUSH Q8H PRN PRN Reason: Nausea and Vomiting Oxycodone HCl (Oxycodone Hcl Immed Release 5 Mg Tablet) 5 mg PO Q4H PRN PRN Reason: Pain, Moderate(Pain Scale 4-6) Last Admin: 07/12/24 06:22 Dose: 5 mg Documented By: DONNA Paroxetine HCl (Paroxetine Hcl 20 Mg Tablet) 20 mg PO DAILY [facility] Last Admin: 07/12/24 11:59 Dose: 20 mg Documented By: MAHENDRA Rifaximin (Rifaximin 550 Mg Tablet) 550 mg PO BID [facility] Last Admin: 07/12/24 12:00 Dose: 550 mg Documented By: MAHENDRA Ropinirole HCl (Ropinirole Hcl 0.25 Mg Tablet) 0.25 - 0.5 mg PO DAILY PRN PRN Reason: restless legs Sodium Chloride (0.9 % Sodium Chloride Flush 3 Ml Syringe) 3 ml IVFLUSH QSHIFT [facility] Last Admin: 07/12/24 09:23 Dose: 3 ml Documented By: MAHENDRA Spironolactone (Spironolactone 25 Mg Tablet) 100 mg PO BID [facility]; Protocol Last Admin: 07/12/24 09:18 Dose: 100 mg Documented By: MAHENDRA Thiamine HCl (Thiamine Hcl 100 Mg Tablet) 100 mg PO DAILY [facility] Last Admin: 07/12/24 09:19 Dose: 100 mg Documented By: MAHENDRA Labs 07/12/24 06:30 07/12/24 06:30 Labs: Laboratory Results - last 24 hr 07/11/24 07/11/24 07/11/24 11:59 16:54 20:40 MCV MCH MCHC RDW Plt Count MPV Immature Gran % (Auto) Neut % (Auto) Lymph % (Auto) [place] % (Auto) Eos % (Auto) Baso % (Auto) Lymph # (Auto) [place] # (Auto) Eos # (Auto) Baso # (Auto) Abs Immat Gran (auto) Absolute Neuts (auto) Absolute Nucleated RBC Nucleated RBC % (auto) Anion Gap Estim Creat Clear Calc Estimated GFR POC Glucose 139 H 192 H Random Glucose Calcium Blood Type A Positive Antibody Screen NEGATIVE 07/12/24 06:30 MCV 81.0 MCH 25.2 L MCHC 31.1 RDW 17.0 H Plt Count 171 MPV 8.5 L Immature Gran % (Auto) 0.3 Neut % (Auto) 79.8 H Lymph % (Auto) 7.0 L [place] % (Auto) 12.6 H Eos % (Auto) 0.0 Baso % (Auto) 0.3 Lymph # (Auto) 0.5 L [place] # (Auto) 0.9 Eos # (Auto) 0.0 Baso # (Auto) 0.0 Abs Immat Gran (auto) 0.02 Absolute Neuts (auto) 5.9 Absolute Nucleated RBC 0.000 Nucleated RBC % (auto) 0.0 Anion Gap 11 L Estim Creat Clear Calc 162.4 Estimated GFR > 60 POC Glucose Random Glucose 121 H Calcium 8.6 Blood Type Antibody Screen Procedures Date of Service Date of Service: 07/12/24 Progress Note: A&P Assessment and plan (1) Strangulated umbilical hernia: Status: Acute (2) S/P TIPS (transjugular intrahepatic portosystemic shunt): Status: Acute (3) Cirrhosis of liver: Status: Acute Plan Current plan is to discharge patient home with follow-up with me as directed. VNA services will be arranged for q.o.d. peritoneal dialysis catheter drainage of his recurrent massive ascites. Patient was analgesics at home. He should avoid strenuous activities. Discharge instructions were reviewed and are on the discharge instructions. All questions answered. Time Spent With Patient Time: Total time managing care of this patient today ____ minutes. Quality Stroke Does the patient have a stroke diagnosis?: No VTE Prior VTE?: Yes VTE Risk Level:: Surgical - high VTE Device Contraindication: N/A - Device Ordered VTE Drug Contraindication: Treatment Not Tolerated
--- NOTE | 2024-07-12 14:29 | P.F2F_ITS ---
Service Date Service Date: 07/12/24 Encounter Date of encounter: 07/12/24 Encounter: Q.o.d.. Ascites drainage via peritoneal dialysis catheter to avoid excessive tension on recently performed surgery for incarcerated strangulated umbilical hernia Reasons for Services Signs and symptoms assessed: Multiple comorbidities, advanced cirrhosis, status post tips procedure early this week and then repair of incarcerated strangulated umbilical hernia. Required periodic drainage of recurrent massive ascites to avoid stress of surgical repair Homebound: Leaving the home is medically contraindicated at this time without the asist of a device and/or another person due th the listed conditions above and below. Reason homebound: weakness related to hospital stay and other Certification: Based on the above findings, I certify that this patient is confined to the home and needs intermittent custodial care, physical therapy and/or speech therapy, or continues to need occupational therapy. The patient is under my care, and I have initiated the establishment of the plan of care. The patient will be followed by a physician who will periodically review the plan of care. Time Spent With Patient Time: Total time managing care of this patient today ____ minutes.
--- NOTE | 2024-07-12 15:13 | PM.DS ---
DS: Providers Provider Date of Service: 07/12/24 Date of admission: 07/11/24 15:21 Date of discharge: 07/12/24 Primary care physician: Martin Avilez MD Attending physician on admission: Rory Khan Consults: 07/11/24 15:15 Consult to Hospitalist Routine Comment: Consulting Provider: [facility] [place] Hospitalists Reason For Exam: ESLD, s/p TIPS, s/p repair of umbilcal hernia 07/11/24 17:46 Addiction Medicine Routine Consulting Provider: Addiction Covering Reason for consultation: history of ETOH Attending physician on discharge: Rory Khan DS: Diagnosis Discharge Diagnosis (1) Strangulated umbilical hernia: Status: Acute (2) S/P TIPS (transjugular intrahepatic portosystemic shunt): Status: Acute (3) Cirrhosis of liver: Status: Acute DS: Summary Hospital Course Hospital Course: HPI AT ADMISSION: Akash Barboza is a 58 year old male with PMH diabetes mellitus, colon cancer s/p R hemicolectomy, pancreatic cancer, hx of pulmonary embolism, 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 Procedure was uncomplicated and hospital stay was uneventful. He was discharged on POD#1, yesterday. He reports he has a known umbilical hernia and developed severe pain last night at the hernia site. He developed nausea, vomiting. He reports his last BM was in the ICU yesterday. He denies passing flatus. Given the severity of the pain he presented the to the ED where the umbilical hernia was attempted to be reduced however was unsuccessful by the ED provider and technical publications writer. CT scan performed which showed the umbilical/periumbilical herniation of a fluid-filled prominent segmental small bowel loops with a twisting/swirling morphology pattern with dilatation of the proximal small bowel loops with multiple air-fluid levels and decompression of the distal ileal loops. CBC, BMP, LFTs obtained. H/H increased to 10.7/33.7, plt 196, total bili 2.1. PT/INR 17.6/1.5. He reports continued severe pain at the hernia site and nausea. He has a hx of PE and was previously on apixaban however has been taken off this by Pulmonology (Antonio) and has been doing well. HOSPITAL COURSE: He was admitted to the surgical service for further treatment of the incarcerated umbilical hernia. He had very significant comorbidities and poses a very high operative risk however based on his clinical and CT scan findings, the incarcerated possibly strangulated umbilical hernia required surgical intervention. He was added onto the OR schedule emergently for that day. On 07/11/24, open umbilical herniorrhaphy with Bard mesh, placement of peritoneal dialysis catheter, drainage of ascitic fluid was performed by Dr. Khan without complication. The patient tolerated the procedure well. He had an uneventful post operative course. On POD #1, he was tolerating a solid diet. He was comfortable and pain controlled. His abdomen was benign with clean/intact dressings and peritoneal catheter in place. He was hemodynamically stable. His labs were virtually unchanged. He was discharged to home on 07/12/24 with VNA services for q.o.d. peritoneal dialysis catheter drainage of his recurrent massive ascites. He is to follow up in the office in 1 week. Status at Discharge Functional status at discharge: independent ambulation Overall status at discharge: patient is progressing back to baseline Time Attestation Discharge Coordination Time (in mins): 35 Quality: Safe Use of Opioids Does Pt have an Active Cancer Diagnosis on the Problem List?: No Quality: Stroke Does the patient have a stroke diagnosis?: No Physical Exam Vital Signs: Vital Signs: Last Vital Signs Temp 97.2 F 07/12/24 15:03 Pulse 84 07/12/24 15:03 Resp 18 07/12/24 15:03 BP 133/74 07/12/24 15:03 Pulse Ox 100 07/12/24 15:03 O2 Del Method Room Air 07/12/24 15:03 O2 Flow Rate 2 07/11/24 16:43 BMI result Body Mass Index 25.3 Const: General: comfortable, no acute distress and alert GI: Other: Incision dressing clean dry and intact. Peritoneum dialysis catheter in place, abd moderately distended DS: Data Data Completed and Pending Completed studies during hospitalization [Text1]: Procedures Control Bleeding in Gastrointestinal Tract, Via Natural or Artificial Opening Endoscopic (11/01/21) Detoxification Services for Substance Abuse Treatment (12/06/21) Drainage of Left Knee Joint, Percutaneous Approach (11/27/23) Drainage of Left Pleural Cavity, Percutaneous Approach (04/09/23) Drainage of Peritoneal Cavity, Percutaneous Approach (11/27/22) Drainage of Right Pleural Cavity, Percutaneous Approach (12/06/21) Introduction of Mineral-based Topical Hemostatic Agent into Upper GI, Via Natural or Artificial Opening Endoscopic, [employer] (11/27/22) Irrigation of Joints using Irrigating Substance, Percutaneous Endoscopic Approach (12/05/23) Occlusion of Esophageal Vein with Extraluminal Device, Via Natural or Artificial Opening Endoscopic (11/27/22) Transfusion of Nonautologous Red Blood Cells into Peripheral Vein, Percutaneous Approach (04/18/24) Pending studies at discharge: Pending at discharge 07/11/24 14:41 Surgical [PTH] Routine Discharge Plan Discharge Anticipated Discharge Date/Time: 07/12/24 13:32 Patient Disposition: Home Health Service Discharge Diagnosis: Incarcerated strangulated umbilical hernia Referrals: Martin Avilez MD [Primary Care Provider] - 1 Week Rory Khan MD [Physician] - 1 Week Discharge Medications: Continued omeprazole 40 mg capsule,delayed release(DR/EC) 40 mg PO DAILY 90 Days Qty: 90 1RF carvedilol 6.25 mg tablet 6.25 mg PO BID 30 Days Qty: 60 3RF ferrous sulfate 324 mg (65 mg iron) tablet,delayed release (DR/EC) 324 mg PO DAILY 90 Days Qty: 90 1RF (DME) [place] [facility] Rx Instructions .Route Qty: 1 0RF Rx Instructions: As directed gabapentin 300 mg capsule 300 mg PO DAILY ondansetron 4 mg tablet,disintegrating 4 mg PO Q8H PRN (Reason: nausea and vomiting) Qty: 14 0RF (DME) FreeStyle Lite Strips Strip See Rx Instructions .ROUTE .MEDSUPPLY Qty: 100 2RF Rx Instructions: QID (DME) lancets [facility] [place] Rx Instructions .ROUTE .MEDSUPPLY Qty: 200 2RF Rx Instructions: 4 times daily (DME) blood-glucose meter [FreeStyle Lite Meter] Kit See Rx Instructions .ROUTE .MEDSUPPLY Qty: 1 0RF Rx Instructions: As directed (DME) pen needle, diabetic [Pen Needle] 31 gauge x 5/16 needle See Rx Instructions .ROUTE .MEDSUPPLY Qty: 1200 0RF Rx Instructions: As directed albuterol sulfate 90 mcg/actuation Hfa Aerosol Inhaler 2 puff INHALATION Q6H PRN (Reason: Shortness Of Breath Or Wheezing) spironolactone 100 mg tablet 100 mg PO BID furosemide 40 mg tablet 40 mg PO BID ropinirole 0.25 mg tablet 0.25 - 0.5 mg PO DAILY PRN (Reason: restless legs) paroxetine HCl 20 mg tablet 20 mg PO DAILY bupropion HCl 300 mg tablet extended release 24 hr 300 mg PO DAILY Xifaxan 550 mg tablet 550 mg PO BID lactulose 20 gram/30 mL Solution 20 g PO TID-QID Qty: 946 10RF hydroxyzine pamoate 25 mg capsule 50 mg PO DAILY PRN (Reason: itching) Rx Instructions: ITCHING/ANXIETY folic acid 1 mg tablet 1 mg PO DAILY thiamine HCl (vitamin B1) 100 mg tablet 100 mg PO DAILY lorazepam 0.5 mg tablet 0.5 mg PO DAILY PRN (Reason: anxiety attack) oxycodone 5 mg tablet 5 mg PO BID PRN (Reason: Pain) No Action lactulose 20 gram/30 mL Solution 20 g PO TID-QID Qty: 946 10RF Rx Instructions: Take 3-4x daily. Goal is to have 2-3 bowel movements daily Discharge Orders: Discharge Order (Routine); Ordered 07/12/24 Ordered By: Rory Khan Diet: Advance to usual diet Activity on Discharge: No heavy lifting Stand Alone Forms: Patient Portal Discharge page Print Language: Syriac Activity Restrictions/Additional Instructions: Ice to wound 20 minutes several times today and tomorrow. May shower i tomorrow. Remove outside dressing only. Leave Steri-Strips intact. No strenuous activities. Wear abdominal binder. VNA for paracentesis via peritoneal dialysis catheter q.o.d. Care Plan Goals: Convalescence from tips procedure earlier in the week and incarcerated hernia surgery Health Concerns: Patient has multiple comorbidities that will need to be addressed by his appropriate physicians and health sciences department chair Plan of Treatment: Convalescence Assessment: Stable Discharge Date/Time: 07/12/24 15:41
== END 2024-07-12 15:41 | disposition home health service (06) | DRG 354 ==
LOC: HO.ED 10:42 → HO.SSS 10:47 → HO.SSSA 15:23 → HO.S3 15:41
PROVIDERS: Physician Assistant Surgical; Admitting Provider Surgery; Emergency Provider Emergency Medicine; PCP Internal Medicine; Visit Provider Surgery
PROC: 0WUF0JZ Supplement Abdominal Wall with Synthetic Substitute, Open Approach (ICD-10-PCS; principal; 2024-07-11 13:30)
DX: K42.0 Umbilical hernia with obstruction, without gangrene (principal); K76.6 Portal hypertension; K70.31 Alcoholic cirrhosis of liver with ascites; E11.9 Type 2 diabetes mellitus without complications; F39 Unspecified mood [affective] disorder; I10 Essential (primary) hypertension; G25.81 Restless legs syndrome; Z86.711 Personal history of pulmonary embolism; Z79.899 Other long term (current) drug therapy
CPT/HCPCS: 36415; 71045; 74177; 80048; 80053; 82140; 82248; 82947; 83735; 85025; 85610; 85730; 86140; 86850; 86900; 86901; 88302; 93005; 99284; C1752; C1781; J0690; J1100; J1171; J1364; J2003; J2405; J2598; J2704; J2795; J3010; J7120; P9017; P9047; Q9967

== ENCOUNTER → 2024-07-11 07:41 | Outpatient (BNV) | payer OTHER, SELFPAY | PROVIDERS: Emergency Provider Emergency Medicine; PCP Internal Medicine; Visit Provider Radiology Diagnostic Radiology | DX: J98.11 Atelectasis (principal); J90 Pleural effusion, not elsewhere classified; R18.8 Other ascites; K56.690 Other partial intestinal obstruction; K40.30 Unilateral inguinal hernia, with obstruction, without gangrene, not specified as recurrent | CPT/HCPCS: 71045; 74177 ==

== ENCOUNTER → 2024-07-11 10:47 | Outpatient (BNV) | payer OTHER, SELFPAY | PROVIDERS: Emergency Provider Emergency Medicine; PCP Internal Medicine; Visit Provider Physician Assistant Surgical | DX: K42.0 Umbilical hernia with obstruction, without gangrene (principal); Z95.828 Presence of other vascular implants and grafts; K74.60 Unspecified cirrhosis of liver | CPT/HCPCS: 49324; 49616; 99024; 99223; G0180 ==

== ENCOUNTER → 2024-07-11 10:54 | Outpatient (BNV) | payer OTHER, SELFPAY | PROVIDERS: Admitting Provider Surgery; Emergency Provider Emergency Medicine; PCP Internal Medicine; Visit Provider Internal Medicine Cardiovascular Disease | DX: R94.31 Abnormal electrocardiogram [ECG] [EKG] (principal) | CPT/HCPCS: 93010 ==

== ENCOUNTER → 2024-07-11 15:21 | Outpatient (BNV) | payer OTHER, SELFPAY | PROVIDERS: Admitting Provider Surgery; Emergency Provider Emergency Medicine; PCP Internal Medicine; Visit Provider Student in an Organized Health Care Education/Training Program | DX: K42.0 Umbilical hernia with obstruction, without gangrene (principal) | CPT/HCPCS: 99222 ==

== ENCOUNTER 2024-07-21 09:47 | Outpatient (AMB) | payer OTHER, SELFPAY ==
--- NOTE | 2024-07-21 09:49 | MHC.OFFVIS ---
Intake Visit Reasons: s/p umbilical hernia Intake Note: Patient here s/p 1. open umbilical herniorrhaphy with Bard mesh 2. placement of peritoneal dialysis catheter 3. Drainage of ascitic fluid. Reports incision healing well. Dialysis catheter healing well. Patient c/o: no longer taking rx pain meds. Surgery: 07-11-2024 Long Term Care Administrator Required: No Accompanied by: Self / Same As Patient Allergies No Known Drug Allergies [NO KNOWN DRUG ALLERGIES] Allergy (Mild, Verified 07/21/24 09:49) NONE HPI Comments Details: Patient presents for follow-up. He has been undergoing VNA services for every other day drainage of his ascites through the temporary peritoneal dialysis catheter. He is tolerating a diet. Having regular bowel habits. He is slowly but steadily increasing his activity level . He is wearing his abdominal binder. In the grand scheme of things, all things considered, patient was doing quite well. No drainage through his incision he states [facility] Medical History (Updated 07/18/24 @ 10:23 by DORON Leon) Strangulated umbilical hernia (07/11/24) Cirrhosis of liver Septic arthritis Hx of transfusion of packed red blood cells Umbilical hernia Anxiety Pulmonary nodule 1 cm or greater in diameter Pleuritic chest pain Pulmonary embolism, bilateral Diabetes Alcohol use disorder, moderate, dependence Recurrent left pleural effusion Pleural effusion Pericardial effusion Tachycardia Dyspnea Hydropneumothorax Pleural effusion on right Decompensation of cirrhosis of liver Cirrhosis GERD (gastroesophageal reflux disease) Esophageal varices Chronic abdominal pain Gout Peripheral neuropathy Alcoholism Elevated LFTs Surgical History (Updated 07/21/24 @ 10:21 by Rory Khan MD) History of carpal tunnel surgery of left wrist S/P right knee arthroscopy History of abdominal paracentesis Hx of esophagogastroduodenoscopy History of thoracentesis H/O colonoscopy H/O cervical spine surgery H/O hemicolectomy Family History Mother Cancer Sister Cancer Social History Household Members: Other Household Members Other:: roomate Housing: Apartment Are you a primary day care center director to a significant other at home: No Do you presently have visiting nurse or other home services: No Alcohol intake: current Alcohol intake frequency: does not drink Alcohol type: beer Comment: counts correct Patient Tobacco Use Status: Former Tobacco user Tobacco use type: Smokeless Tobacco Years Smoked: 35 e-Cigarette/Vaping Use: Former Use Second Hand Smoke Exposure: No Substance Use Type: Marijuana Advance Directives Date on File: 12/03/23 service: No Current occupational status: unemployed Physical Exam GI Other: Abdomen moderately protuberant secondary to patient's ascites. Incision is healing uneventfully. There is some mild erythema which I am not sure as either ecchymosis or superficial cellulitis. Peritoneal the os catheter in place Assessment & Plan Assessment & Plan (1) Encounter for postoperative wound check: Code(s): Z48.89 - Encounter for other specified surgical aftercare Category: Surgical Plan Current plan is see the patient will weeks time. He will be given a script for Keflex antibiotics regarding his abdominal wall issues. He is to continue every other day peritoneal dialysis drainage with VNA. If all goes well next week, consideration will be made for removal of catheter. All questions answered. Patient was seen me as noted above were p.r.n.. Medications: New oxycodone Partial Fill upon patient request. 5 mg PO Q8H PRN 30 tabs 0RF pain cephalexin 500 mg PO TID 30 caps 0RF Coding Level of Care Code Global (71384) Diagnoses Encounter for postoperative wound check Z48.89
--- OUTSIDE RECORDS SUMMARY | 2024-07-21 14:18 | XMS_ITS | Data Portability ---
Author Organization [employer] [facility] [employer] Address [address] [place] [address] Care Team Providers Care Senior Property Accountant Name Role Phone HIM CCA OTHER VALORIE GARCÍA Primary Care Provider Assessment Encounter Date Assessment Date Assessment LastModified by Organization Details LastModified Time 12/05/2023 12/05/2023 I have reviewed and agree with the assessment and plan as documented by the knitter wire mesh. I provided real time medical direction for this encounter and was immediately available to provide additional phone based assistance as needed. History as noted by knitter wire mesh. Pt with recent diagnosis of R knee septic arthritis, had knee arthroscopy and wash out performed at [facility] on November 29 and was discharged [...] that he needs to return to [facility] today to have orthopedics evaluate his leg. I stress the importance of having his leg evaluated urgently today to rule out worsening infection. We offer to arrange for an ambulance to take him to the ED, but pt prefers to have his sister take him to the [facility] ED today for evaluation. He states he will go there in about an hour. I have called an expect to the retail client solutions consultant at the [facility] ED. btils Not available 12/05/2023 11:27:29 Plan [...] Updated DateTime 4 98 % 98 % 753706. 04 g 18 /min 98.2 [degF] 101 /min 104 mm[Hg] 64 mm[Hg] Not Available [facility] - production 4 11:02:34 Social History None recorded. Functional Status None recorded. Mental Status None recorded. Family History Nothing Reported. Medical History No medical history recorded. Past Encounters Encounter ID Performer Location Encounter Start Date Encounter Closed Date Diagnosis/Indication Diagnosis SNOMED-CT Code Diagnosis ICD10 Code Diagnosis Note [id number] Amadou Baez MD Main - [facility] [address] [place] [id number] 12/05/2023 11:02:27 12/06/2023 10:03:23 Cellulitis of right lower limb [id number] L03.115 Health Concerns Section Related Observation LastModified by Organization Detai ls LastModified Time None Recorded Concern Status LastModified by Organization Details LastModified Time None Recorded Advance Directives Directive None Recorded Payers Encounter Date Sequence Insurance Name Policy Number Policy Booth Covered Member ID Booth Member ID Guarantor Name 12/05/2023 1 [facility] - DOS ON OR AFTER 2022 - DUAL ELIGIBLE - CUSTODIAL OPTIONS AND ONE CARE (MEDICARE REPLACEMENT/ADV ANTAGE - HMO) Akash Barboza [id number] Akash Barboza Notes Date Note Type Note Provider Name and Address Organization Details Recorded Time 12/05/2023 text/html This was a supervised home visit with knitter wire mesh Deon Diaz. [facility] Nurse Triage Notes (Claudia [...] .................. .................. .................. .................. .................. .................. ............... All Terrain Vehicle Racer Note From Deon Diaz: Pt co pain and redness in right leg after surgery this past Sunday. Pt on antibiotics and pain management already. Pt denies fever NVD CP sob. Pt sts redness and pain has increased since release. Baseline vitals assessed, area warm to touch ..afebrile. [facility] contacted and advised pt to go to ER today. Pt declined ambulance and sts his sister will take him to [facility]. Pt education on the risks of not going to ER. .................. .................. .................. .................. .................. .................. .................. ............... Disposition: Fulfilled Amadou Baez MD [address] [facility],[address], [place], [phone], [facility] 12/05/2023 11:58:49
== END 2024-07-21 10:05 | disposition home or self-care (01) ==
PROVIDERS: PCP Internal Medicine; Visit Provider Surgery
DX: Z48.89 Encounter for other specified surgical aftercare (principal)
CPT/HCPCS: 99024

== ENCOUNTER → 2024-07-21 09:47 | Outpatient (BNVA) | payer OTHER, SELFPAY | PROVIDERS: PCP Internal Medicine; Visit Provider Surgery | DX: Z09 Encounter for follow-up examination after completed treatment for conditions other than malignant neoplasm (principal); Z96.89 Presence of other specified functional implants; Z98.890 Other specified postprocedural states | CPT/HCPCS: 99212 ==

== ENCOUNTER 2024-07-25 06:14 | Outpatient (REF) | payer OTHER, SELFPAY ==
[2024-07-25 07:33] LABS: Blood Urea Nitrogen 10 mg/dL (9-16); Estimated Glomerular Filt Rate > 60
== END 2024-07-25 06:15 | disposition home or self-care (01) ==
LOC: HO.LAB 06:14
PROVIDERS: PCP Internal Medicine; Visit Provider Radiology Vascular & Interventional Radiology
DX: R79.9 Abnormal finding of blood chemistry, unspecified (principal); R94.4 Abnormal results of kidney function studies
CPT/HCPCS: 36415; 82565; 84520

== ENCOUNTER 2024-07-28 09:53 | Outpatient (AMB) | payer OTHER, SELFPAY ==
--- NOTE | 2024-07-28 10:01 | A.OFFVIS_ITS ---
Intake Visit Reasons: 1wk s/p umbilical hernia Intake Note: Patient here for 1wk follow up. Would like to discuss peritoneal catheter removal. Patient c/o: keflex course finished. Reports wound healing better. Maintenance Journeyman Required: No Accompanied by: Self / Same As Patient Allergies No Known Drug Allergies [NO KNOWN DRUG ALLERGIES] Allergy (Mild, Verified 07/28/24 10:02) NONE HPI Comments Details: Patient was asked for follow-up. He is still undergoing every other day VNA peritoneal dialysis catheter drainage were over 2 L each session is retrieved. In the meantime, patient was going to have his tips procedure revised this . Patient was tolerating a diet. Having regular bowel habits. He has no wound issues or complaints [facility] Medical History (Updated 07/23/24 @ 13:12 by Jannet Graham MD) Esophageal varices Strangulated umbilical hernia (07/11/24) Cirrhosis of liver Septic arthritis Hx of transfusion of packed red blood cells Umbilical hernia Anxiety Pulmonary nodule 1 cm or greater in diameter Pleuritic chest pain Pulmonary embolism, bilateral Diabetes Alcohol use disorder, moderate, dependence Recurrent left pleural effusion Pleural effusion Pericardial effusion Tachycardia Dyspnea Hydropneumothorax Pleural effusion on right Decompensation of cirrhosis of liver Cirrhosis GERD (gastroesophageal reflux disease) Chronic abdominal pain Gout Peripheral neuropathy Alcoholism Elevated LFTs Surgical History (Updated 07/28/24 @ 10:06 by Rory Khan MD) History of carpal tunnel surgery of left wrist S/P right knee arthroscopy History of abdominal paracentesis Hx of esophagogastroduodenoscopy History of thoracentesis H/O colonoscopy H/O cervical spine surgery H/O hemicolectomy Family History Mother Cancer Sister Cancer Social History Household Members: Other Household Members Other:: roomate Housing: Apartment Are you a primary caregiver assisted living to a significant other at home: No Do you presently have visiting nurse or other home services: No Alcohol intake: current Alcohol intake frequency: does not drink Alcohol type: beer Comment: counts correct Patient Tobacco Use Status: Former Tobacco user Tobacco use type: Smokeless Tobacco Years Smoked: 35 e-Cigarette/Vaping Use: Former Use Second Hand Smoke Exposure: No Substance Use Type: Marijuana Advance Directives Date on File: 12/03/23 service: No Current occupational status: unemployed Physical Exam GI Other: Abdomen moderately distended secondary to ascites. Umbilical incision clean dry and intact healing very well. Peritoneal dialysis catheter in place. Patient has been wearing his abdominal binder Assessment & Plan Assessment & Plan (1) Postop check: Code(s): Z09 - Encounter for follow-up examination after completed treatment for conditions other than malignant neoplasm Category: Surgical Plan Current plan is see the patient and proximally 1-1/2 weeks time after he has had this test procedure revision. Eventual plan is that his tips we will relieve his ascites at which time his peritoneal dialysis catheter can then be removed. In the meantime he is encouraged to continue wearing his abdominal binder and continue VNA services for ascites drainage. All questions answered Coding Level of Care Code Global (16251) Diagnoses Postop check Z09
--- OUTSIDE RECORDS SUMMARY | 2024-07-28 10:25 | XMS_ITS | Clinical Summary ---
Author Organization [facility] Facility Address [address] [address] Care Team Providers Care Lead Business Systems Analyst Name Role Phone Unavailable Primary Care Provider Unavailabl e Social History Tobacco Use Types Packs/Day Years Used Date Smoking Tobacco: Never Assessed Sex and Gender Information Value Date Recorded Sex Assigned at Not on file Legal Sex Male 10:04 AM EDT Gender Identity Not on file Sexual Orientation Not on file Plan of Treatment Health Maintenance Due Date Last Done Comments Hepatitis B Vaccine (1 of 3 - 19+ 3-dose series) 1986 Colorectal Cancer Screening: Annual FOBT 2016 Colorectal Cancer Screening: Colonoscopy 2016 Colorectal Cancer Screening: Sigmoidoscopy 2016 Influenza Vaccine (#1) 2024 Pneumococcal Vaccine: Pediat rics (0 to 5 Years) and At-Risk Patients (6 to 64 Years) Aged Out No longer eligible b ased on patient's age to complete this topic [place]
--- OUTSIDE RECORDS SUMMARY | 2024-07-28 10:25 | XMS_ITS | Clinical Summary ---
Author Organization [facility] Address [address] [place] [address] Care Team Providers Care Bulldozer/Loader/Compactor/Scraper Name Role Phone Martin Avilez MD Primary Care Provider [phone] Medical History Medical History Date Comments Hypertension DX:Hypertension High cholesterol DX:High cholest gal Social History Tobacco Use Types Packs/Day Years Used Date Smoking Tobacco: Every Day Smokeless Tobacco: Never Alcohol Use Standard Drinks/Week Comments Yes 0 (1 standard drink = 0.6 oz pur e alcohol) Sex and Gender Information Value Date Recorded Sex Assigned at Not on file Gender Identity Not on file Sexual Orientation Not on file Obstetrics History Plan of Treatment Health Maintenance Due Date Last Done Comments Pneumococcal Vaccine: Pediat rics (0 to 5 Years) and At-Risk Patients (6 to 64 Years) (1 of 2 - PCV) 1973 DTaP,Tdap,and Td Vaccines (1 - Tdap) 1986 Hepatitis B Vaccines (1 of 3 - 19+ 3-dose series) 1986 Zoster Vaccines (1 of 2) 2017 Cholesterol Screening (Lipid Panel) 05/28/2022 Colorectal Cancer Screening: Colonoscopy 05/28/2022 Depression Screening 05/28/2022 HIV Screening 05/28/2022 Hepatitis C Screening 05/28/2022 Social Influencers of Health Screening 05/28/2022 COVID-19 Vaccine ( - 2023-2 5 season) 2024 Influenza Vaccine (#1) 2024 HIB Vaccines Aged Out No longer eligi ble based on patient's age to complete this topic HPV Vaccines Aged Out No longer eligi ble based on patient's age to complete this topic Hepatitis A Vaccines Aged Out No long er eligible based on patient's age to complete this topic IPV Vaccines Aged Out No longer eligi ble based on patient's age to complete this topic MMR Vaccines Aged Out No longer eligi ble based on patient's age to complete this topic Meningococcal ACWY Vaccine Aged Out N o longer eligible based on patient's age to complete this topic RSV Immunization Patients Un hailey 20 months Aged Out No longer eligible b ased on patient's age to complete this topic Varicella Vaccines Aged Out No longer eligible based on patient's age to complete this topic Care Teams Bulldozer/Loader/Compactor/Scraper Relationship Specialty Start Date End Date Martin Avilez MD [address] [place] [address] [address] [place], [place] PCP - General 02/25/18
--- OUTSIDE RECORDS SUMMARY | 2024-07-28 10:25 | XMS_ITS | Data Portability ---
Author Organization [employer] Address [address] [place] [address] Care Team Providers Care Internal Medicine Specialist Name Role Phone HIM [facility] OTHER VALORIE GARCÍA Primary Care Provider Assessment Encounter Date Assessment Date Assessment LastModified by Organization Details LastModified Time 12/05/2023 12/05/2023 I have reviewed and agree with the assessment and plan as documented by the chart computer. I provided real time medical direction for this encounter and was immediately available to provide additional phone based assistance as needed. History as noted by chart computer. Pt with recent diagnosis of R knee septic arthritis, had knee arthroscopy and wash out performed at [facility] on November 29 and was discharged home [...] that he needs to return to [facility] today to have orthopedics evaluate his leg. I stress the importance of having his leg evaluated urgently today to rule out worsening infection. We offer to arrange for an ambulance to take him to the ED, but pt prefers to have his sister take him to the [facility] ED today for evaluation. He states he will go there in about an hour. I have called an expect to the planer off bearer at the [facility]. btils Not available 12/05/2023 11:27:29 Plan [...] Updated DateTime 4 98 % 98 % 626559. 04 g 18 /min 98.2 [degF] 101 /min 104 mm[Hg] 64 mm[Hg] Not Available [facility] - production 4 11:02:34 Social History None recorded. Functional Status None recorded. Mental Status None recorded. Family History Nothing Reported. Medical History No medical history recorded. Past Encounters Encounter ID Performer Location Encounter Start Date Encounter Closed Date Diagnosis/Indication Diagnosis SNOMED-CT Code Diagnosis ICD10 Code Diagnosis Note [id number] Amadou Baez MD Main - [facility] [address] [place] [phone] 12/05/2023 11:02:27 12/06/2023 10:03:23 Cellulitis of right lower limb [id number] L03.115 Health Concerns Section Related Observation LastModified by Organization Detai ls LastModified Time None Recorded Concern Status LastModified by Organization Details LastModified Time None Recorded Advance Directives Directive None Recorded Payers Encounter Date Sequence Insurance Name Policy Number Policy Booth Covered Member ID Booth Member ID Guarantor Name 12/05/2023 1 [facility] - DOS ON OR AFTER 2022 - DUAL ELIGIBLE - SHELTER OPTIONS AND ONE CARE (MEDICARE REPLACEMENT/ADV ANTAGE - HMO) Akash Barboza [id number] Akash Barboza Notes Date Note Type Note Provider Name and Address Organization Details Recorded Time 12/05/2023 text/html This was a supervised home visit with chart computer Deon Diaz. CRC Nurse Triage Notes (Claudia [...] .................. .................. .................. .................. .................. .................. ............... Induction Heat Treater Note From Deon Diaz: Pt co pain and redness in right leg after surgery this past Sunday. Pt on antibiotics and pain management already. Pt denies fever NVD CP sob. Pt sts redness and pain has increased since release. Baseline vitals assessed, area warm to touch ..afebrile. [facility] contacted and advised pt to go to ER today. Pt declined ambulance and sts his sister will take him to [facility]. Pt education on the risks of not going to ER. .................. .................. .................. .................. .................. .................. .................. ............... Disposition: Fulfilled Amadou Baez MD [address] [facility],[address], [place], [address], [facility] 12/05/2023 11:58:49
== END 2024-07-28 10:02 | disposition home or self-care (01) ==
PROVIDERS: PCP Internal Medicine; Visit Provider Surgery
DX: Z09 Encounter for follow-up examination after completed treatment for conditions other than malignant neoplasm (principal)
CPT/HCPCS: 99024

== ENCOUNTER → 2024-07-28 09:53 | Outpatient (BNVA) | payer OTHER, SELFPAY | PROVIDERS: PCP Internal Medicine; Visit Provider Surgery | DX: Z09 Encounter for follow-up examination after completed treatment for conditions other than malignant neoplasm (principal); Z87.19 Personal history of other diseases of the digestive system | CPT/HCPCS: 99212 ==

== ENCOUNTER 2024-08-06 07:13 | Outpatient (AMB) | payer OTHER, SELFPAY ==
--- OUTSIDE RECORDS SUMMARY | 2024-08-06 07:15 | XMS_ITS | Data Portability ---
Author Organization [employer] Address [address] [place] [address] Care Team Providers Care Supervisor Ditching Name Role Phone HIM CCA OTHER VALORIE GARCÍA Primary Care Provider [phone] Assessment Encounter Date Assessment Date Assessment LastModified by Organization Details LastModified Time 12/05/2023 12/05/2023 I have reviewed and agree with the assessment and plan as documented by the protection officer. I provided real time medical direction for this encounter and was immediately available to provide additional phone based assistance as needed. History as noted by protection officer. Pt with recent diagnosis of R knee septic arthritis, had knee arthroscopy and wash out performed at [facility] on November 29 and was [...] pt that he needs to return to [facility] today to have orthopedics evaluate his leg. I stress the importance of having his leg evaluated urgently today to rule out worsening infection. We offer to arrange for an ambulance to take him to the ED, but pt prefers to have his sister take him to the [facility] ED today for evaluation. He states he will go there in about an hour. I have called an expect to the dye room helper at the [facility] ED. btils Not available 12/05/2023 11:27:29 Plan [...] Updated DateTime 4 98 % 98 % 778480. 04 g 18 /min 98.2 [degF] 101 /min 104 mm[Hg] 64 mm[Hg] Not Available [facility] - production 4 11:02:34 Social History None recorded. Functional Status None recorded. Mental Status None recorded. Family History Nothing Reported. Medical History No medical history recorded. Past Encounters Encounter ID Performer Location Encounter Start Date Encounter Closed Date Diagnosis/Indication Diagnosis SNOMED-CT Code Diagnosis ICD10 Code Diagnosis Note [id number] Amadou Baez MD Main - [facility] [address] [place] [phone] 12/05/2023 11:02:27 12/06/2023 10:03:23 Cellulitis of right lower limb [id number] L03.115 Health Concerns Section Related Observation LastModified by Organization Detai ls LastModified Time None Recorded Concern Status LastModified by Organization Details LastModified Time None Recorded Advance Directives Directive None Recorded Payers Encounter Date Sequence Insurance Name Policy Number Policy Booth Covered Member ID Booth Member ID Guarantor Name 12/05/2023 1 [facility] - DOS ON OR AFTER 2022 - DUAL ELIGIBLE - LONG-TERM OPTIONS AND ONE CARE (MEDICARE REPLACEMENT/ADV ANTAGE - HMO) Akash Barboza [id number] Akash Barboza Notes Date Note Type Note Provider Name and Address Organization Details Recorded Time 12/05/2023 text/html This was a supervised home visit with protection officer Deon Diaz. [facility] Nurse Triage Notes (Claudia [...] .................. .................. .................. .................. .................. .................. ............... Supervisor Electronics Assembly Note From Deon Diaz: Pt co pain [...] sts his sister will take him to [facility]. Pt education on the risks of not going to ER. .................. .................. .................. .................. .................. .................. .................. ............... Disposition: Fulfilled Amadou Baez MD [address] [facility],[address], [place], [address], [facility] 12/05/2023 11:58:49
--- OUTSIDE RECORDS SUMMARY | 2024-08-06 07:15 | XMS_ITS | Clinical Summary ---
Author Organization [facility] Address [address] [address] Care Team Providers Care Metal Spinner Name Role Phone Unavailable Primary Care Provider [...] age to complete this topic [place]
--- OUTSIDE RECORDS SUMMARY | 2024-08-06 07:16 | XMS_ITS | Clinical Summary ---
Author Organization [facility] Address [address] [place] [address] Care Team Providers Care Mailing Machine Assistant Name Role Phone Martin Avilez MD Primary Care Provider [phone] Medical History Medical History Date Comments Hypertension DX:Hypertension High cholesterol DX:High cholest gal Social History Tobacco Use Types Packs/Day Years Used Date Smoking Tobacco: Every Day Smokeless Tobacco: Never Alcohol Use Standard Drinks/Week Comments Yes 0 (1 standard drink = 0.6 oz pur e alcohol) Sex and Gender Information Value Date Recorded Sex Assigned at Not on file Legal Sex Male 3:43 AM EST Gender Identity Not on file Sexual Orientation [...] Influencers of Health Screening 05/28/2022 COVID-19 Vaccine (2023-2 5 season) 2024 Influenza Vaccine (#1) 2024 [...] age to complete this topic Care Teams Mailing Machine Assistant Relationship Specialty Start Date End Date Martin Avielz MD [address] [place] [address] [address] [place], [place] PCP - General 02/25/18
--- NOTE | 2024-08-06 07:41 | A.OFFVIS_ITS ---
Intake Visit Reasons: 1wk s/p umbilical hernia Intake Note: Patient here s/p open umbilical herniorrhaphy with Bard mesh 2. placement of peritoneal dialysis catheter 3. Drainage of ascitic fluid. Incision healing well. Patient c/o: would like abd tube removed. Reports minimal drainage. Sugery: 07-11-2024 Chairlift Operator Required: No Accompanied by: Self / Same As Patient Allergies No Known Drug Allergies [NO KNOWN DRUG ALLERGIES] Allergy (Mild, Verified 08/06/24 07:43) NONE Medication List - Last Reconciled 08/06/24 by Rory Khan MD albuterol sulfate 90 mcg/actuation 2 puffs inhalation Q6H PRN blood sugar diagnostic (FreeStyle Lite Strips) QID blood-glucose meter (FreeStyle Lite Meter kit) As directed bupropion HCl XL 300 mg PO DAILY carvedilol 6.25 mg PO BID ferrous sulfate 324 mg PO DAILY 90 days folic acid 1 mg PO DAILY furosemide 40 mg PO BID gabapentin 300 mg PO DAILY hydroxyzine pamoate 50 mg PO DAILY PRN lactulose 20 grams (30 mL) PO TID-QID lactulose 20 grams (30 mL) PO TID-QID lancets 4 times daily lorazepam 0.5 mg PO DAILY PRN omeprazole 40 mg PO DAILY 90 days ondansetron 4 mg PO Q8H PRN paroxetine HCl 20 mg PO DAILY pen needle, diabetic (Pen Needle) As directed rifaximin (Xifaxan) 550 mg PO BID 90 days ropinirole 0.25 - 0.5 mg PO DAILY PRN spironolactone 100 mg PO BID thiamine HCl (vitamin B1) 100 mg PO DAILY walker As directed HPI Comments Details: Patient was asked to follow up. His revision of his tips procedure apparently he was working and he has less ascites retrieved by the temporary peritoneal felipa lysis catheter which was placed. In the meantime, patient was tolerating diet. Having regular bowel habits. No abdominal issues or complaints. [facility] Medical History (Updated 07/23/24 @ 13:12 by Jannet Graham MD) Esophageal varices Strangulated umbilical hernia (07/11/24) Cirrhosis of liver Septic arthritis Hx of transfusion of packed red blood cells Umbilical hernia Anxiety Pulmonary nodule 1 cm or greater in diameter Pleuritic chest pain Pulmonary embolism, bilateral Diabetes Alcohol use disorder, moderate, dependence Recurrent left pleural effusion Pleural effusion Pericardial effusion Tachycardia Dyspnea Hydropneumothorax Pleural effusion on right Decompensation of cirrhosis of liver Cirrhosis GERD (gastroesophageal reflux disease) Chronic abdominal pain Gout Peripheral neuropathy Alcoholism Elevated LFTs Surgical History (Updated 08/06/24 @ 09:26 by Rory Khan MD) History of carpal tunnel surgery of left wrist S/P right knee arthroscopy History of abdominal paracentesis Hx of esophagogastroduodenoscopy History of thoracentesis H/O colonoscopy H/O cervical spine surgery H/O hemicolectomy Family History Mother Cancer Sister Cancer Social History Household Members: Other Household Members Other:: roomate Housing: Apartment Are you a primary acute care physical therapist to a significant other at home: No Do you presently have visiting nurse or other home services: No Alcohol intake: current Alcohol intake frequency: does not drink Alcohol type: beer Comment: counts correct Patient Tobacco Use Status: Former Tobacco user Tobacco use type: Smokeless Tobacco Years Smoked: 35 e-Cigarette/Vaping Use: Former Use Second Hand Smoke Exposure: No Substance Use Type: Marijuana Advance Directives Date on File: 12/03/23 service: No Current occupational status: unemployed Physical Exam GI Other: Incision is well healed. Current plan is to remove the peritoneal dialysis catheter in the office today. Office Procedures Excision Details: Unable to find a code for peritoneal dialysis catheter removal. Risks, benefits, alternatives of procedure reviewed with the patient and included but not limited to bleeding, infection, numbness, pain, scarring, leakage and the patient wished to proceed. All questions answered. After appropriate positioning, patient underwent 1% lidocaine and Betadine prep in the left lower quadrant of the exit site of the peritoneal dialysis catheter. A counter incision from the original insertion site was also opened. The 2 cuffs were dissected free from the surrounding tissues and catheter removed in toto uneventfully. Each wound was irrigated, secured hemostasis, and closed using interrupted inverted dermal 3-0 Vicryl sutures followed by Steri-Strips and sterile dressings. Patient tolerated procedure well. Procedure code (CPT) selection complete Office Meds lidocaine 1 %-epinephrine 1:100,000 injection solution Performing Provider: Rory Khan MD Performing Location: [facility] General Surgeons Administered by: Rory Khan MD on 08/06/24 09:25 2 Dose Route Admin Location Dispensed Lot Number Expiration Date NDC Banquet Waiter/Waitress 20 mL Infiltration 20 mL Assessment & Plan Assessment & Plan (1) Peritoneal dialysis catheter fitting or adjustment: Code(s): Z49.02 - Encounter for fitting and adjustment of peritoneal dialysis catheter Category: Surgical Plan: Patient was been given local wound instructions including avoiding strenuous activities, and will otherwise follow-up p.r.n.. All questions answered. Orders: Orders AMB Excision Today Z49.02 - Encounter for fitting and adjustment of peritoneal dialysis catheter Medications: New lidocaine-epinephrine 1 %-1:100,000 20 mL Infiltration ONCE 30 mL 0RF Z49.02 - Encounter for fitting and adjustment of peritoneal dialysis catheter Coding Level of Care Code Est Pt Level 5 (16413) Diagnoses Peritoneal dialysis catheter fitting or adjustment Z49.02
== END 2024-08-06 08:13 | disposition home or self-care (01) ==
PROVIDERS: PCP Internal Medicine; Visit Provider Surgery
DX: Z49.02 Encounter for fitting and adjustment of peritoneal dialysis catheter (principal)
CPT/HCPCS: 49422; 99214

== ENCOUNTER → 2024-08-06 07:13 | Outpatient (BNVA) | payer OTHER, SELFPAY | PROVIDERS: PCP Internal Medicine; Visit Provider Surgery | DX: Z49.02 Encounter for fitting and adjustment of peritoneal dialysis catheter (principal); Z09 Encounter for follow-up examination after completed treatment for conditions other than malignant neoplasm | CPT/HCPCS: 99212; J2004 ==

== ENCOUNTER 2024-08-14 13:33 | Outpatient (AMB) | payer OTHER, SELFPAY ==
--- NOTE | 2024-08-14 13:52 | A.OFFVIS_ITS ---
Vital Signs 08/14/24 14:02 Height 6 ft 5 in Weight 238 lb BMI 28.2 BP 106/61 Blood Pressure Location Lt brachial Position Sitting Pulse 84 Pulse Oximetry (%) 98 Oxygen Delivery Method Room Air Intake Visit Reasons: follow up Intake Note: Patient FU after TIPS placement/Cirrhosis of liver. Patient cc: abdominal bloating on and off, poor appetite, and denies any other GI issues. Accountant Tax Required: No Accompanied by: Self / Same As Patient Allergies No Known Drug Allergies [NO KNOWN DRUG ALLERGIES] Allergy (Mild, Verified 08/14/24 13:51) NONE Medication List - Last Reconciled 08/14/24 by Jannet Graham MD albuterol sulfate 90 mcg/actuation 2 puffs inhalation Q6H PRN blood sugar diagnostic (FreeStyle Lite Strips) QID blood-glucose meter (FreeStyle Lite Meter kit) As directed bupropion HCl XL 300 mg PO DAILY carvedilol 6.25 mg PO BID ferrous sulfate 324 mg PO DAILY 90 days folic acid 1 mg PO DAILY furosemide 40 mg PO BID gabapentin 300 mg PO DAILY hydroxyzine pamoate 50 mg PO DAILY PRN lactulose 20 grams (30 mL) PO TID-QID lancets 4 times daily lorazepam 0.5 mg PO DAILY PRN omeprazole 40 mg PO DAILY 90 days ondansetron 4 mg PO Q8H PRN paroxetine HCl 20 mg PO DAILY pen needle, diabetic (Pen Needle) As directed rifaximin (Xifaxan) 550 mg PO BID 90 days ropinirole 0.25 - 0.5 mg PO DAILY PRN spironolactone 100 mg PO BID thiamine HCl (vitamin B1) 100 mg PO DAILY walker As directed HPI HPI follow up: Details: GI clinic visit for this 58 for FU of ESLD complicated by ascites, esophageal varices (status post banding x 4 in 2022), hepatic hydrothorax and hepatic encephalopathy, portal hypertensive gastropathy, GERD, hypertension, depression, hyperlipidemia. Patient was diagnosed with PE in early 2023 and was started on apixaban. He is status post terminal ileal resection (7 cms) and right hemicolectomy (25 cms) for adenomatous right colon polyps Patient was seen by IR at [facility] in 03/14/2023 and offered a tips placement which he declined. Pt was scheduled for periportal lymph node biopsy at [facility]. Procedure was canceled due to presence of tense ascites. Procedure was not rescheduled due to concern for complications from FNA and advised monitoring with imaging Also pt is considered a poor candidate for systemic therapy incase malignancy is diagnosed. Pt previously followed by Frances Pierre NP and Dr. Mendoza since 06/13/2021 TODAY'S VISIT: Patient cc: abdominal bloating on and off, poor appetite, and denies any other GI issues. Had peritoneal catheter removed on 08/06/24 Wt gain from 232 to 235 lbs Has been eating more at night. Patient 5 weeks follow up for Alcoholic cirrhosis of liver with ascites also Acute blood loss anemia. Patient cc: dizziness/fatigue on and off, no good appetite and weight loss, also patient have blood work done from last visit. The patient is trying to stay sober. He is drinking nonalcoholic beer. He says it is more expensive but the taste the same. Last ETOH intake was 2 days ago. He knows that his only option will be a liver transplantation. Having therapeutic paracentesis every 2 weeks. Continues to have intermittent nausea and decreased appetite. Takes alcohol a few times a week and non alcoholic beer sometimes PAST VISIT: Pt has an appt on 05/14/24 at [facility] - unsure if it is for a TIPPS placement. Always feels fatigued with nausea, poor appetite, intermittent abdominal pain which improves after paracentesis Takes ondansetron SL which helps Gets SOB on climbing stairs Patient denies symptoms of heartburn, dysphagia, nausea, change in weight. Denies recent change in bowel habits, constipation, diarrhea, black stools or rectal bleeding. Pt was started on Eliquis by Dr Alvarez 6 months ago for PE Patient is unsure if he has loud snoring or sleep apnea Denies problems with anesthesia in the past. Drinking 2 beers a day. Thinks he is able to quit Patient denies known family history of liver disease, colon cancer or other GI malignancies. 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 Stigmata of cirrhosis and portal hypertension with [id number] ascites noted. Mima hepatis adenopathy again noted. Evidence of portosystemic collateral vessels including in a small type 1 hiatal hernia and in the gastrohepatic ligament and splenic hilum as well as a small splenorenal shunt 2. Portal veins a small within the liver. Hepatic veins are not well seen due to contrast timing. 3. Chronic lesion in the proximal right femur considered benign. 4. Small to moderate sized umbilical hernia containing ascitic fluid in the anterior wall with a small bowel loop without associated obstruction ENDOSCOPIC STUDIES: 02/21/24 EGD was performed at [facility] which showed portal hypertensive gastropathy and esophageal varices with bleeding and band ligation x 3 was performed 07/26/23 EGD AND COLONOSCOPY WERE PERFORMED BY DR MENDOZA: Impressions:? * Esophageal varices (banding x 1) * Portal hypertensive gastropathy * Portal hypertensive duodenopathy * Normal colon mucosa * Total of 12 polyps removed from the left side of the colon - hyperplastic on biopsy. * Internal hemorrhoids Recommendations:?? * Follow biopsy results. Our office will call or send a letter with results within 7-10 days. * Continue carvedilol for variceal bleeding prophylaxis * Repeat EGD in 6 months * Patient continues to drink, and was again counseled very strongly for cessa tion * If 3 or more polyps are adenoma, would recommend repeat colonoscopy in 3 years. * Given the polyp burden, we will also discuss referral to genetics for polyposis [facility] Medical History (Updated 07/23/24 @ 13:12 by Jannet Graham MD) Esophageal varices Strangulated umbilical hernia (07/11/24) Cirrhosis of liver Septic arthritis Hx of transfusion of packed red blood cells Umbilical hernia Anxiety Pulmonary nodule 1 cm or greater in diameter Pleuritic chest pain Pulmonary embolism, bilateral Diabetes Alcohol use disorder, moderate, dependence Recurrent left pleural effusion Pleural effusion Pericardial effusion Tachycardia Dyspnea Hydropneumothorax Pleural effusion on right Decompensation of cirrhosis of liver Cirrhosis GERD (gastroesophageal reflux disease) Chronic abdominal pain Gout Peripheral neuropathy Alcoholism Elevated LFTs Surgical History History of carpal tunnel surgery of left wrist S/P right knee arthroscopy History of abdominal paracentesis Hx of esophagogastroduodenoscopy History of thoracentesis H/O colonoscopy H/O cervical spine surgery H/O hemicolectomy Family History Mother Cancer Sister Cancer Social History Household Members: Other Household Members Other:: roomate Housing: Apartment Are you a primary healthcare financial analyst to a significant other at home: No Do you presently have visiting nurse or other home services: No Alcohol intake: current Alcohol intake frequency: does not drink Alcohol type: beer Comment: counts correct Patient Tobacco Use Status: Former Tobacco user Tobacco use type: Smokeless Tobacco Years Smoked: 35 e-Cigarette/Vaping Use: Former Use Second Hand Smoke Exposure: No Substance Use Type: Marijuana Advance Directives Date on File: 12/03/23 service: No Current occupational status: unemployed Review of Systems Const All systems reviewed & are unremarkable except as noted in HPI and below Physical Exam Vital Signs: Last Vital Signs Pulse 84 08/14/24 14:02 BP 106/61 08/14/24 14:02 Pulse Ox 98 08/14/24 14:02 Oxygen Delivery Method Room Air 08/14/24 14:02 BMI result Body Mass Index 28.2 Const General: no acute distress Nutritional Appearance: overweight Orientation/consciousness: patient oriented x3 Limitations: ambulation with cane HEENT Head: Yes normal to inspection Ears: hearing grossly normal bilaterally Eyes Sclerae: sclerae normal Pupils: Equal, round and reactive pupils present Neck Neck: Yes normal visual inspection Chest Chest palpation & inspection: normal inspection of the chest Resp Effort & Inspection: normal respiratory effort Auscultation: clear to auscultation bilaterally Cardio Palpation: normal PMI Rate: regular rate Rhythm: regular rhythm Heart sounds: S1 normal heart sound present, S2 normal heart sound present and no murmurs GI Inspection: Yes distended (due to ascites) and Yes incision (healing transverse mid abd incision) Palpation (GI): Soft to palpation, nontender and hepatosplenomegaly present Auscultation: normal bowel sounds Rectal Exam - Male: Yes deferred Skin General skin exam: no rashes or lesions noted Neuro General: patient oriented x3, gait normal and moves all extremities Cranial nerves: Yes Equal, round and reactive pupils present Extrem General: Yes pedal edema Psych Appearance: grossly normal Mental Status: mental status grossly normal Assessment & Plan Assessment & Plan (1) Esophageal varices: Comment: Determined on endoscopy at [facility] requesting records Code(s): I85.00 - Esophageal varices without bleeding Category: Medical (2) Multiple adenomatous polyps: Code(s): D36.9 - Benign neoplasm, unspecified site Category: Medical (3) Acute alcoholic pancreatitis: Code(s): K85.20 - Alcohol induced acute pancreatitis without necrosis or infection Category: Medical Qualifiers: Acute pancreatitis complication: no infection or necrosis Qualified Code(s): K85.20 - Alcohol induced acute pancreatitis without necrosis or infection (4) Alcoholic cirrhosis of liver with ascites: Code(s): K70.31 - Alcoholic cirrhosis of liver with ascites Category: Medical (5) S/P TIPS (transjugular intrahepatic portosystemic shunt): Code(s): Z95.828 - Presence of other vascular implants and grafts Category: Surgical (6) Hepatic encephalopathy: Code(s): K76.82 - Hepatic encephalopathy Category: Medical Plan 58 YM with ESLD complicated by ascites, esophageal varices (status post banding x 4 in 2022), hepatic hydrothorax and hepatic encephalopathy, portal hypertensive gastropathy, GERD, hypertension, depression, hyperlipidemia. Patient was diagnosed with PE in early 2023 and was started on apixaban (Followed by Pulmonary - Dr Alvarez). He is status post terminal ileal resection (7 cms) and right hemicolectomy (25 cms) for adenomatous right colon polyps Patient was seen by IR at [facility] in 03/14/2023 and offered a TIPPs placement which he declined. Pt was scheduled for periportal lymph node biopsy by IR at [facility] and procedure was canceled due to presence of tense ascites. Biopsy was not rescheduled due to unfavorable risk benefit profile and concern for complications from FNA and advised monitoring with imaging Also pt is considered a poor candidate for systemic therapy in case malignancy is diagnosed. 05/14/24 TIPS procedure was attempted at [facility] and was unsuccesful He is being scheduled for a 2nd attempt at TIPS placement [place] [facility] REDUCING THE RISK OF LIVER PROGRESSION: patient was advised to completely avoid use of alcohol and lose weight. HCC SURVEILLANCE: the patient is at risk of developing hepatocellular carcinoma given the presence of cirrhosis and need 6 monthly imaging surveillance with either abdominal ultrasound (US) or multiphase cross-sectional imaging (CT or MRI). Last Abd US on 02/04/24 had shown no focal liver lesions suspicious of HCC. He will be scheduled for follow-up liver imaging for ongoing surveillance. SURVEILLANCE FOR GASTROESOPHAGEAL VARICES: I will plan schedule an EGD for FU of varices. QUESTION OF LIVER TRANSPLANTATION: Pt is not a candidate for liver transplantation at present due to ongoing ETOH and drug abuse. Pt is scheduled for a regular therapeutic paracentesis for management of recurrent ascites despite taking diuretics. 05/15/24 TIPS placement was attempted via transjugular and transhepatic approach by Dr Buchanan at [facility] and was felt to be unsuccessful due to a firm and cirrhotic liver and portal venous anatomy Pt was not considered a good candidate for BRTO and advised continued management with regular therapeutic paracentesis. 07/09/24 Pt had a successful TIPS placement by Dr Salazar ([place] at [facility] Pt reports he had the TIPS readjusted at an Imaging office in [place] a few weeks ago and has a FU appt 07/11/24 Pt had an open umbilical herniorrhaphy with Bard mesh, placement of peritoneal dialysis catheter and drainage of ascitic fluid. 08/14/24 Pt advised to have a therapeutic paracentesis in 1-2 weeks. Continue Furosemide 40 mg twice daily and spironolactone 100 mg twice a day. FU in 2 months Orders: Orders US paracentesis abd w/image Today K70.31 - Alcoholic cirrhosis of liver with ascites Coding Level of Care Code Est Pt Level 4 (32287) Diagnoses Esophageal varices I85.00 Multiple adenomatous polyps D36.9 Acute alcoholic pancreatitis K85.20 Acute pancreatitis complication: no infection or necrosis Alcoholic cirrhosis of liver with ascites K70.31 S/P TIPS (transjugular intrahepatic portosystemic shunt) Z95.828 Hepatic encephalopathy K76.82 Time Spent (min) 25
[2024-08-14 14:02] VITALS: BP 106/61; PULSE 84; O2SAT 98; BMI 28.2
--- OUTSIDE RECORDS SUMMARY | 2024-08-14 14:31 | XMS_ITS | Data Portability ---
Author Organization [email or web address] Address [address] [place] [address] Care Team Providers Care Detective Supervisor Name Role Phone HIM CCA OTHER VALORIE GARCÍA Primary Care Provider [phone] Assessment Encounter Date Assessment Date Assessment LastModified by Organization Details LastModified Time 12/05/2023 12/05/2023 I have reviewed and agree with the assessment and plan as documented by the string cutter. I provided real time medical direction for this encounter and was immediately available to provide additional phone based assistance as needed. History as noted by string cutter. Pt with recent diagnosis of R knee [...] pt that he needs to return to [facility] today to have orthopedics evaluate his leg. I stress the importance of having his leg evaluated urgently today to rule out worsening infection. We offer to arrange for an ambulance to take him to the ED, but pt prefers to have his sister take him to the [facility] ED today for evaluation. He states he will go there in about an hour. I have called an expect to the sexton helper at the [facility]. btils Not available 12/05/2023 11:27:29 Plan [...] Updated DateTime 4 98 % 98 % 414000. 04 g 18 /min 98.2 [degF] 101 /min 104 mm[Hg] 64 mm[Hg] Not Available [facility] - production 4 11:02:34 Social History None recorded. Functional Status None recorded. Mental Status None recorded. Family History Nothing Reported. Medical History No medical history recorded. Past Encounters Encounter ID Performer Location Encounter Start Date Encounter Closed Date Diagnosis/Indication Diagnosis SNOMED-CT Code Diagnosis ICD10 Code Diagnosis Note [id number] Amadou Baez MD [facility] - [facility] [address] [place] [address] [phone] 12/05/2023 11:02:27 12/06/2023 10:03:23 Cellulitis of right lower limb [id number] L03.115 Health Concerns Section Related Observation LastModified by Organization Detai ls LastModified Time None Recorded Concern Status LastModified by Organization Details LastModified Time None Recorded Advance Directives Directive None Recorded Payers Encounter Date Sequence Insurance Name Policy Number Policy Booth Covered Member ID Booth Member ID Guarantor Name 12/05/2023 1 [facility] - DOS ON OR AFTER 2022 - DUAL ELIGIBLE - FDC OPTIONS AND ONE CARE (MEDICARE REPLACEMENT/ADV ANTAGE - HMO) Akash Barboza [id number] Akash Barboza Notes Date Note Type Note Provider Name and Address Organization Details Recorded Time 12/05/2023 text/html This was a supervised home visit with string cutter Deon Daiz. [facility] Nurse Triage Notes (Claudia Joseph): Reason [...] .................. .................. .................. .................. .................. .................. ............... Golf Range Attendant Note From Deon Diaz: Pt co pain and redness in right leg after surgery this past Sunday. Pt on antibiotics and pain management already. Pt denies fever NVD CP sob. Pt sts redness and pain has increased since release. Baseline vitals assessed, area warm to touch ..afebrile. [facility] contacted and advised pt to go to ER today. Pt declined ambulance and sts his sister will take him [place] [facility]. Pt education on the risks of not going to ER. .................. .................. .................. .................. .................. .................. .................. ............... Disposition: Fulfilled Amadou Baez MD [address] [facility],[address], [place], [address], [facility] 12/05/2023 11:58:49
--- OUTSIDE RECORDS SUMMARY | 2024-08-14 14:31 | XMS_ITS | Clinical Summary ---
Author Organization [facility] [[email or web address]] Address [address] [place] [address] Care Team Providers Care Skin Specialist Name Role Phone Martin Avilez MD Primary Care Provider [phone] Medical History Medical History Date Comments Hypertension [...] Health Maintenance Due Date Last Done Comments DTaP,Tdap,and Td Vaccines (1 - Tdap) 1986 Hepatitis B Vaccines (1 of 3 - 19+ 3-dose series) 1986 Pneumococcal Vaccine: 50+ Ye ars (1 of 2 - PCV) 1986 Pneumococcal Vaccine: Pediat rics (0 to 5 Years) and At-Risk Patients (6 to 64 Years) (1 of 2 - PCV) 1986 Zoster Vaccines (1 of 2) 2017 [...] patient's age to complete this topic Meningococcal B Vacine Aged Out No lo nger eligible based on patient's age to complete this topic RSV Immunization Patients Un hailey 20 months Aged Out No longer eligible b ased on patient's age to complete this topic Varicella Vaccines Aged Out No longer eligible based on patient's age to complete this topic Care Teams Skin Specialist Relationship Specialty Start Date End Date Martin Avilez MD [address] [place] [address] [address] [place], [place] PCP - General 02/25/18
--- OUTSIDE RECORDS SUMMARY | 2024-08-14 14:31 | XMS_ITS | Clinical Summary ---
Author Organization [facility] Facility Address [address] [address] Care Team Providers Care Digester Hand Name Role Phone Unavailable Primary Care Provider [...] age to complete this topic [place]
== END 2024-08-14 14:57 | disposition home or self-care (01) ==
PROVIDERS: PCP Internal Medicine; Visit Provider Internal Medicine Gastroenterology
DX: I85.00 Esophageal varices without bleeding (principal); D36.9 Benign neoplasm, unspecified site; K85.20 Alcohol induced acute pancreatitis without necrosis or infection; K70.31 Alcoholic cirrhosis of liver with ascites; Z95.828 Presence of other vascular implants and grafts; K76.82 Hepatic encephalopathy
CPT/HCPCS: 99214

== ENCOUNTER → 2024-08-14 13:33 | Outpatient (BNVA) | payer OTHER, SELFPAY | PROVIDERS: PCP Internal Medicine; Visit Provider Internal Medicine Gastroenterology | DX: K70.31 Alcoholic cirrhosis of liver with ascites (principal); K85.20 Alcohol induced acute pancreatitis without necrosis or infection; K76.82 Hepatic encephalopathy; I85.00 Esophageal varices without bleeding; D36.9 Benign neoplasm, unspecified site; Z95.828 Presence of other vascular implants and grafts | CPT/HCPCS: 99212 ==

== ENCOUNTER 2024-08-21 06:54 | Day surgery (SDC) | payer OTHER, SELFPAY ==
--- OUTSIDE RECORDS SUMMARY | 2024-08-15 11:26 | XMS_ITS | Clinical Summary ---
Author Organization [facility] Address [address] [place] [address] Care Team Providers Care Cell Feed Department Supervisor Name Role Phone Martin Avilez MD Primary Care Provider [phone] Medical History Medical History Date Comments Hypertension [...] age to complete this topic Care Teams Cell Feed Department Supervisor Relationship Specialty Start Date End Date Martin Avilez MD [address] [place] [address] [address] [place], [place] PCP - General 02/25/18
--- OUTSIDE RECORDS SUMMARY | 2024-08-15 11:26 | XMS_ITS | Clinical Summary ---
Author Organization [facility] Facility Address [address] [address] Care Team Providers Care Senior It Project Manager Name Role Phone Unavailable Primary Care Provider [...] age to complete this topic [place]
[2024-08-21] VITALS (8 sets, daily range): BP systolic 109–126; BP diastolic 67–77; PULSE 78–93; RESP 15–19; TEMP 36.6–37.2; O2SAT 95–99; BMI 27.6
--- NOTE | ~2024-08-21 | US_ITS ---
Ultrasound paracentesis History: Ascites. Risks and benefits and possible complications were discussed with the patient and consent form was signed. A safe pocket of ascitic fluid was identified using ultrasound guidance, and the overlying skin was marked. The abdomen prepped and draped in sterile fashion. 1% lidocaine was used as a local anesthetic. Using ultrasound guidance, a 5 fr catheter was placed into the ascitic pocket. 4.5 liters of yellow fluid was removed passively. The catheter was then removed. A few open claims representative images from before and after the examination were obtained. The procedure was performed by Lenard Sandra PA-C and supervised by Dr. El. US/US paracentesis abd w/image Impression: Ultrasound-guided paracentesis as described above. No immediate complications Electronically signed by: Dao El MD 08/22/2024 05:07 PM [facility]
[2024-08-21] MEDS: Albumin Human 25 % 100 ML 200 ML IV (07:53)
[2024-08-21] MEDS: Lidocaine HCl 1 % MPF 5 ML VIAL SUBCUT (09:31)
== END 2024-08-21 09:41 | disposition home or self-care (01) ==
PROVIDERS: Physician Assistant Surgical; PCP Internal Medicine; Visit Provider Internal Medicine Gastroenterology
DX: K70.31 Alcoholic cirrhosis of liver with ascites (principal); K72.10 Chronic hepatic failure without coma; K76.6 Portal hypertension; I85.00 Esophageal varices without bleeding; E11.9 Type 2 diabetes mellitus without complications; D62 Acute posthemorrhagic anemia; I10 Essential (primary) hypertension; E78.5 Hyperlipidemia, unspecified; F32.A Depression, unspecified; I26.99 Other pulmonary embolism without acute cor pulmonale; Z79.01 Long term (current) use of anticoagulants; Z79.899 Other long term (current) drug therapy; Z90.49 Acquired absence of other specified parts of digestive tract
CPT/HCPCS: 49083; J2003; P9047

== ENCOUNTER → 2024-08-21 08:14 | Outpatient (BNV) | payer OTHER, SELFPAY | PROVIDERS: PCP Internal Medicine; Visit Provider Physician Assistant Surgical | DX: R18.8 Other ascites (principal) | CPT/HCPCS: 49083 ==

== ENCOUNTER 2024-08-28 11:04 | Outpatient (AMB) | payer OTHER, SELFPAY ==
--- NOTE | 2024-08-28 11:21 | A.OFFVIS_ITS ---
Vital Signs 08/28/24 11:23 Height 6 ft 5 in Weight 232 lb 9.403 oz BMI 27.6 BP 98/60 Blood Pressure Location Rt brachial Position Sitting Pulse 87 Pulse Source Pulse Oximeter Pulse Oximetry (%) 96 Oxygen Delivery Method Room Air Intake Visit Reasons: Pulmonary Nodule Allergies No Known Drug Allergies [NO KNOWN DRUG ALLERGIES] Allergy (Mild, Verified 08/28/24 11:26) NONE HPI Comments Details: The patient is a 59 y/o man with a history of decompensated alcoholic cirrhosis with varices and right pleural effusion.? Was most recently discharged 11/03/2021 after hospitalization GI bleed.? Patient now complaining of several days of right-sided chest pain, sharp, worse with inspiration.? Associated with shortness of breath worse on exertion, improved with rest, progressively worsening.? Patient continues to drink alcohol, last drink was 2 days prior to presentation.? He has also noticed to be feeling shaky.? In ED CTA was negative for PE but did show moderate right-sided effusion. the patient did undergo thoracentesis demonstrating what appeared to be a transudative process, lymphocytic predominant. His lymphocyte count was elevated In the pleural fluid. The patient did feel better after the thoracentesis. He did not have any abdominal interventions. After the procedure the patient felt better and subsequently was discharged. we did review his imaging studies including his CT scan demonstrating moderate to large pleural effusion on the right side. Explained to him that this is consistent with hepatic hydrothorax. the patient does have a history of varices in addition to portal vein thrombosis. He does have a prescription for Aldactone and Lasix. We talked about the importance of taking the medication. He also needs to take additional diuretic if he is getting any weight. His kidney function is stable. We did talk about his meld score demonstrating of 3 month mortality of 20%. Patient understands that this is very serious. His only potential intervention will be to quit drinking and being referred to a transplant center. The patient did have misconceptions about liver transplants. We did re-educated about the benefits of liver transplant specially with his worsening liver failure. The patient understands that alcohol withdrawal can be very serious. Once he starts withdrawal he needs to seek medical care. the cough 04/26/2023 the patient is here for a pulmonary follow-up visit. The patient had been in the hospital he was diagnosed with a pulmonary embolism. In addition to that he had a left-sided pleural effusion. It was drained. It was a little bit more serosanguineous. Afterwards he was having some shortness of breath we did repeat the chest x-ray demonstrating interval worsening of the pleural effusion and we did request for thoracentesis. He has not have had the thoracentesis as of yet. However, he is feeling better. On examination I do appreciate some breath sounds at the left base which is reassuring. Therefore will hold off on the thoracentesis specially since he is on the blood thinners and will go ahead and repeat the x-ray in 2-3 weeks. If he has any worsening symptoms he can always get the x-ray sooner. He knows that for any procedure he would have to stop the Eliquis for a couple days. He also understands that with blood clots he needs to be on the blood thinners for at least 3 months. If not longer. The patient has had a history of blood clots I think in the portal vein system. No evidence of any lower extremity DVTs which is reassuring. He is tolerating the Eliquis without any evidence of any bleeding. Unfortunately the still drinking alcohol. We did talk about making sure that he quits drinking in order to c onsider the possibility of a lung transplant in the future. 07/17/2023 the patient is here for pulmonary follow-up visit. The patient since we spoke had a chest x-ray demonstrating moderate sided pleural effusion. Therefore we sent him for thoracentesis. He had to stop the Eliquis however. Therefore took a little longer. By the time that he was scheduled for the thoracentesis. By the time that he got a thoracentesis done he was already feeling better she was not sure if he should had a done. After the thoracentesis and drained about a L and a have the patient started having left- sided chest discomfort. He was then shoveling and snow blowing so had a hard time knowing for sure if the left-sided discomfort with musculoskeletal or if it was related to his procedure. Therefore we had and come back for chest x-ray. No evidence of any pneumothorax although it appears that the pleural effusion was increasing after the thoracentesis already occurred. Explained to the patient likely that he has a component of trapped lung on that side and therefore the negative pressure causes tugging of the lung causing pain and subsequently once the fluid comes back the symptoms do resolve. He does have the crease and diminished breath sounds absent breath sounds on the left base suggesting the fluid is already back. The patient also has been taking Eliquis and his hemoglobin has been dropping. He is scheduled for an endoscopy and also colonoscopy. In part is due to the blood thinners. This is because he had blood clots that were noted back in March 2023. Will go ahead and repeat a CTA in the coming months to make sure that the blood clots or gone in case he needs to stop the anticoagulation. 03/07/2024 the patient is here for a pulmonary follow-up visit. He had been admitted to the hospital with upper GI bleed secondary to variceal bleed. Subsequently transferred to [facility] for potential tips. The patient was reluctant. He needs to talk further with his regular GI doctor. In the meantime has been having shortness of breath. We did have him get a chest x-ray and does not appear to be having significant fluid buildup of these in the left lung. Appears to be slightly loculated. No need for thoracentesis right now. The patient did have a CT scan of the chest demonstrating pulmonary nodules however. Therefore he would need to get a repeat CT scan of the chest at this time to further address the nodular densities. He continues on the diuresis therapy. He is also working on his sobriety. 05/26/2024 the patient is here for a pulmonary follow-up visit. Since we last spoke she was evaluated at [facility] in the tips procedure was attempted although they could not completed because of his vessels were too small. Multiple people tried in the were able to do so. He did undergo a significant paracentesis or a 9-10 L. the patient has been getting frequent paracentesis. We did look at his last CT scan of the chest demonstrating what appears to be a small loculated pleural effusion and some scarring in the left base. Not enough to tap. In addition to that he has had issues with anemia. Specially with his gastric varices and esophageal varices. His hemoglobin is down. He has been off the Eliquis and has been doing well. Will go ahead and keep him off the Eliquis at this time. Will request a D-dimer to make sure that is staying within normal. The patient had a CTA back in 09/12/2023 demonstrating resolution of the blood clots. At this point if we can keep him off the anticoagulation or probably best because of his significant risk of bleeding. The patient is trying to stay sober. He is drinking nonalcoholic beer. He says it is more expensive but the taste the same. He knows that his only option will be a liver transplantation. He potentially is a candidate but he needs to quit any kind of alcoholic beverages and follow-up with GI to see if he can be referred. Again this is a long shot for him but is some something that he can still try to achieve. 08/28/2024 The patient is here for a pulmonary follow up visit. He is s/p TIPS procedure and his ascites and pleural effusions have been better. Still complaining of dyspnea, moderate in severity with worsening with activity. His last CTA demonstrated also pulmonary nodules. He continues drinking alcohol unfortunately. Hopefully, he can quit. He has been off the Eliquis for many months. In the meantime we did have him undergo bloodwork today. He did have a critically high ddimer and needs to have a CTA to r/o PE. [facility], [facility] Medical History (Updated 08/28/24 @ 21:37 by Nawaf Alvarez MD) Esophageal varices Strangulated umbilical hernia (07/11/24) Cirrhosis of liver Septic arthritis Hx of transfusion of packed red blood cells Umbilical hernia Anxiety Pulmonary nodule 1 cm or greater in diameter Pleuritic chest pain Pulmonary embolism, bilateral Diabetes Alcohol use disorder, moderate, dependence Recurrent left pleural effusion Pleural effusion Pericardial effusion Tachycardia Dyspnea Hydropneumothorax Pleural effusion on right Decompensation of cirrhosis of liver Cirrhosis GERD (gastroesophageal reflux disease) Chronic abdominal pain Gout Peripheral neuropathy Alcoholism Elevated LFTs Surgical History History of carpal tunnel surgery of left wrist S/P right knee arthroscopy History of abdominal paracentesis Hx of esophagogastroduodenoscopy History of thoracentesis H/O colonoscopy H/O cervical spine surgery H/O hemicolectomy Family History Mother Cancer Sister Cancer Social History Household Members: Other Household Members Other:: roomate Housing: Apartment Are you a primary direct support professional caregiver to a significant other at home: No Do you presently have visiting nurse or other home services: No Alcohol intake: current Alcohol intake frequency: does not drink Alcohol type: beer Comment: counts correct Patient Tobacco Use Status: Current everyday Tobacco user Tobacco use type: Smokeless Tobacco Years Smoked: 35 e-Cigarette/Vaping Use: Former Use Second Hand Smoke Exposure: No Substance Use Type: Marijuana Advance Directives Date on File: 12/03/23 service: No Current occupational status: unemployed Review of Systems Const Unobtainable due to mental condition Denies fatigue, Denies fever(s), Denies night sweats, Reports poor appetite and Reports weight loss Eyes Denies change in vision ENT Reports Normal hearing present Card Reports no additional complaints, Reports chest pain and Reports dyspnea on exertion Resp Denies chest congestion, Denies cough, Denies hemoptysis, Denies pain on inspiration, Denies pain with cough and Reports dyspnea on exertion GI Reports abdominal pain Musc Reports arthralgias Skin/Breast Denies pruritus Neuro Reports Normal hearing present and Denies Abnormal speech present Endo Denies fatigue Physical Exam Vital Signs: Last Vital Signs Pulse 87 08/28/24 11:23 BP 98/60 08/28/24 11:23 Pulse Ox 96 08/28/24 11:23 Oxygen Delivery Method Room Air 08/28/24 11:23 BMI result Body Mass Index 27.6 Const General: alert Orientation/consciousness: patient oriented x3 HEENT Head: Yes normal to inspection Eyes Conjunctivae: conjunctival abnormal bilateral conjunctival icterus Neck Neck: Yes supple Chest Chest palpation & inspection: normal inspection of the chest Resp Effort & Inspection: normal respiratory effort Auscultation: no rales and diminished lung sounds Percussion: no dullness to percussion Cardio Rate: regular rate Rhythm: regular rhythm Heart sounds: S1 normal heart sound present and S2 normal heart sound present GI Inspection: Yes distended Skin General skin exam: spider nevi Neuro General: patient oriented x3 Cranial nerves: Yes Normal hearing present Speech: No Abnormal speech present Extrem General: Yes no clubbing, cyanosis or edema Assessment & Plan Assessment & Plan (1) Pleural effusion: Code(s): J90 - Pleural effusion, not elsewhere classified Category: Medical (2) Pulmonary embolism, bilateral: Code(s): I26.99 - Other pulmonary embolism without acute cor pulmonale Category: Medical (3) Alcoholic cirrhosis of liver: Code(s): K70.30 - Alcoholic cirrhosis of liver without ascites Category: Medical Qualifiers: Ascites presence: with ascites Qualified Code(s): K70.31 - Alcoholic cirrhosis of liver with ascites (4) Pulmonary emboli: Code(s): I26.99 - Other pulmonary embolism without acute cor pulmonale Category: Medical Qualifiers: Pulmonary embolism type: unspecified Chronicity: unspecified Acute cor pulmonale presence: without acute cor pulmonale Qualified Code(s): I26.99 - Other pulmonary embolism without acute cor pulmonale (5) D-dimer, elevated: Code(s): R79.89 - Other specified abnormal findings of blood chemistry Category: Medical Plan CTA to reassess to PE and need for anticoagulation Bloodwork diuresis as tolerated needs to stay sober, non alcoholic beer F/U 3-4 months Orders: Orders D Dimer High Sensitivity Today I26.99 - Other pulmonary embolism without acute cor pulmonale Basic Metabolic Panel Today I26.99 - Other pulmonary embolism without acute cor pulmonale Erythrocyte Sedimentation Rate Today I26.99 - Other pulmonary embolism without acute cor pulmonale Complete Blood Count Auto Diff Today I26.99 - Other pulmonary embolism without acute cor pulmonale CT angio chest PE protocol Today I26.99 - Other pulmonary embolism without acute cor pulmonale, R79.89 - Other specified abnormal findings of blood chemistry Coding Level of Care Code Est Pt Level 4 (76962) Complex EM visit Add On G2211 Diagnoses Pleural effusion J90 Pulmonary embolism, bilateral I26.99 Alcoholic cirrhosis of liver with ascites K70.31 Ascites presence: with ascites Pulmonary embolism without acute cor pulmonale, unspecified chronicity, unspecified pulmonary embolism type I26.99 Pulmonary embolism type: unspecified Chronicity: unspecified Acute cor pulmonale presence: without acute cor pulmonale D-dimer, elevated R79.89 Time Spent (min) 17
[2024-08-28 11:23] VITALS: BP 98/60; PULSE 87; O2SAT 96; BMI 27.6
--- OUTSIDE RECORDS SUMMARY | 2024-08-28 13:33 | XMS_ITS | Clinical Summary ---
Author Organization [facility] Address [address] [place] [address] Care Team Providers Care Social Service Assistant Name Role Phone Martin Avilez MD Primary Care Provider [phone] Medical History Medical History Date Comments Hypertension [...] age to complete this topic Care Teams Social Service Assistant Relationship Specialty Start Date End Date Martin Avilez MD [address] [place] [address] [address] [place], [place] PCP - General 02/25/18
--- OUTSIDE RECORDS SUMMARY | 2024-08-28 13:33 | XMS_ITS | Data Portability ---
Author Organization [employer] [employer] Address [address] [place] [address] Care Team Providers Care State Epidemiologist Name Role Phone HIM CCA OTHER VALORIE GARCÍA Primary Care Provider Assessment Encounter Date Assessment Date Assessment LastModified by Organization Details LastModified Time 12/05/2023 12/05/2023 I have reviewed and agree with the assessment and plan as documented by the seal delivery vehicle officer. I provided real time medical direction for this encounter and was immediately available to provide additional phone based assistance as needed. History as noted by seal delivery vehicle officer. Pt with recent diagnosis of R knee septic arthritis, had knee arthroscopy and wash out performed at [facility] on November 29 and was discharged home [...] pt that he needs to return to [facility] today to have orthopedics evaluate his [...] I have called an expect to the clinical review specialist at the [facility] ED. btils Not available 12/05/2023 11:27:29 Plan [...] Updated DateTime 4 98 % 98 % 546835. 04 g 18 /min 98.2 [degF] 101 /min 104 mm[Hg] 64 mm[Hg] Not Available [facility] - production 4 11:02:34 Social History None recorded. Functional Status None recorded. Mental Status None recorded. Family History Nothing Reported. Medical History No medical history recorded. Past Encounters Encounter ID Performer Location Encounter Start Date Encounter Closed Date Diagnosis/Indication Diagnosis SNOMED-CT Code Diagnosis ICD10 Code Diagnosis Note [id number] Amadou Baez MD Main - [facility] [address] [place] [phone] 12/05/2023 11:02:27 12/06/2023 10:03:23 Cellulitis of right lower limb [id number] L03.115 Health Concerns Section Related Observation LastModified by Organization Detai ls LastModified Time None Recorded Concern Status LastModified by Organization Details LastModified Time None Recorded Advance Directives Directive None Recorded Payers Encounter Date Sequence Insurance Name Policy Number Policy Booth Covered Member ID Booth Member ID Guarantor Name 12/05/2023 1 [facility] - DOS ON OR AFTER 2022 - DUAL ELIGIBLE - ASSISTED OPTIONS AND ONE CARE (MEDICARE REPLACEMENT/ADV ANTAGE - HMO) Akash Barboza [id number] Akash Barboza Notes Date Note Type Note Provider Name and Address Organization Details Recorded Time 12/05/2023 text/html This was a supervised home visit with seal delivery vehicle officer Deon Diaz. CRC Nurse Triage Notes [...] .................. .................. .................. .................. .................. .................. ............... Academic Department Chair Note From Deon Diaz: Pt co pain and redness in right leg after surgery this past Sunday. Pt on antibiotics and pain management already. Pt denies fever NVD CP sob. Pt sts redness and pain has increased since release. Baseline vitals assessed, area warm to touch ..afebrile. [facility] contacted and advised pt to go to ER today. Pt declined ambulance and sts his sister will take him to [facility]. Pt education on the risks of not going to ER. .................. .................. .................. .................. .................. .................. .................. ............... Disposition: Fulfilled Amadou Baez MD [address] [facility],[address], [place], [address], [facility] 12/05/2023 11:58:49
--- OUTSIDE RECORDS SUMMARY | 2024-08-28 13:33 | XMS_ITS | Clinical Summary ---
Author Organization [facility] Address [address] [address] Care Team Providers Care Pasting Machine Operator Name Role Phone Unavailable Primary Care Provider [...] age to complete this topic [place]
== END 2024-08-28 11:53 | disposition home or self-care (01) ==
PROVIDERS: PCP Internal Medicine; Visit Provider Hospitalist
DX: J90 Pleural effusion, not elsewhere classified (principal); I26.99 Other pulmonary embolism without acute cor pulmonale; K70.31 Alcoholic cirrhosis of liver with ascites; R79.89 Other specified abnormal findings of blood chemistry
CPT/HCPCS: 99214; G2211

== ENCOUNTER 2024-08-28 11:04 | Outpatient (REF) | payer OTHER, SELFPAY ==
[2024-08-28 14:02] LABS: MANUAL DIFF FLAG NO
[2024-08-28 14:35] LABS: Basophils Absolute Auto 0.1 X10*3/uL (0.0-0.2); Basophils Percent Auto 2.1 % (0-2); Eosinophils Absolute Auto 0.2 X10*3/uL (0.0-0.4); Eosinophils Percent Auto 5.1 % (0-4); Hematocrit 35.5 % (42.0-52.0); Hemoglobin 11.3 g/dl (14.0-18.0); Imm Gran Abs Auto 0.01 X10*3/uL (0.00-0.03); Imm Gran Pct Auto 0.3 % (0.0-0.4); Lymphocytes Absolute Auto 0.6 X10*3/uL (1.2-4.9); Lymphocytes Percent Auto 16.2 % (20-40); Mean Corpuscular HGB Conc 31.8 g/dl (31.0-36.0); Mean Corpuscular Hemoglobin 27.2 pg (27.0-33.0); Mean Corpuscular Volume 85.5 fL (80.0-98.0); Mean Platelet Volume 8.5 fL (9.4-12.4); Monocytes Absolute Auto 0.6 X10*3/uL (0.1-1.2); Monocytes Percent Auto 15.7 % (2-11); Neutrophils Absolute Auto 2.3 x10*3/uL (2.0-8.3); Neutrophils Percent Auto 60.6 % (45-73); Platelet Count 173 X10*3/uL (160-400); Red Blood Count 4.15 X10*6/uL (4.60-5.80); Red Cell Distribution Width 18.4 % (11.0-16.0); White Blood Count 3.8 X10*3/uL (4.8-10.8)
[2024-08-28 14:45] LABS: D Dimer High Sensitivity 722 NG/ML
[2024-08-28 15:18] LABS: Erythrocyte Sedimentation Rate 31 MM/HR (0-15)
[2024-08-28 15:24] LABS: Anion Gap 11 (12-20); Blood Urea Nitrogen 8 mg/dL (9-16); Calcium 8.7 mg/dL (8.4-10.2); Carbon Dioxide 24 mmol/L (22-29); Chloride 107 mmol/L (96-108); Estimated Glomerular Filt Rate > 60; Glucose Random 148 mg/dL (60-115); Potassium 4.1 mmol/L (3.3-5.1); Sodium 138 mmol/L (135-145)
--- OUTSIDE RECORDS SUMMARY | 2024-08-28 16:51 | XMS_ITS | Clinical Summary ---
Author Organization [facility] Address [address] [place] [address] Care Team Providers Care Peanut Blancher Name Role Phone Martin Avilez MD Primary Care Provider [phone] Medical History Medical History Date Comments Hypertension [...] age to complete this topic Care Teams Peanut Blancher Relationship Specialty Start Date End Date Martin Avilez MD [address] [place] [address] [address] [place], [place] PCP - General 02/25/18
--- OUTSIDE RECORDS SUMMARY | 2024-08-28 16:51 | XMS_ITS | Clinical Summary ---
Author Organization [facility] Facility Address [address] [address] Care Team Providers Care Electronic Repair Troubleshooter Name Role Phone Unavailable Primary Care Provider [...] age to complete this topic [place]
== END 2024-08-28 11:05 | disposition home or self-care (01) ==
LOC: HO.LAB 11:04
PROVIDERS: PCP Internal Medicine; Visit Provider Hospitalist
DX: R07.81 Pleurodynia (principal); I26.99 Other pulmonary embolism without acute cor pulmonale
CPT/HCPCS: 36415; 80048; 85025; 85379; 85652; 99212

== ENCOUNTER 2024-09-01 09:06 | Outpatient (REF) | payer OTHER, SELFPAY ==
--- NOTE | ~2024-09-01 | CT_ITS ---
EXAMINATION: CT CHEST ANGIOGRAPHY WITH IV CONTRAST INDICATION: I26.99 - Other pulmonary embolism without acute cor pulmonale COMPARISON: Comparison is made with the prior examination dated 03/12/2024. TECHNIQUE: Helical CT scan of the chest was performed following administration of intravenous contrast (65 mL Omnipaque 350). The contrast bolus was timed to optimally opacify the pulmonary arteries. Thin sections were obtained through the pulmonary arteries. Coronal and sagittal reformatted images were generated. 3D/MIP reconstructed images are also obtained and reviewed. This CT exam was performed with one or more of the following dose reduction techniques: automated exposure control, adjustment of the mA and/or kV according to patient size, use of iterative reconstruction technique. DLP: 177 mGy-cm CHEST: THYROID: The thyroid gland is unremarkable. PULMONARY ARTERIES: No intraluminal filling defects are identified within the pulmonary arteries to suggest pulmonary emboli. LUNGS: There is airspace opacity at the right lung base, consistent with atelectasis or pneumonia. Again seen is rounded atelectasis in the left lower lobe. MEDIASTINUM: There is no mediastinal lymphadenopathy. TAVO: There is no hilar lymphadenopathy. CARDIOVASCULATURE: The heart is normal in size. There is no pericardial effusion. The thoracic aorta is normal in caliber. DEGREE OF CORONARY CALCIFICATION: none PLEURA: There are small bilateral pleural effusions. No pneumothorax. MAIN AIRWAYS: The mainstem bronchi and proximal branches are patent. AXILLA: There is no axillary lymphadenopathy. UPPER ABDOMEN: Again seen is cirrhosis of the liver. A TIPS shunt is seen in place. There is a moderate amount of ascites in the upper abdomen. The spleen is enlarged. BONES AND SOFT TISSUES: There is gynecomastia. The bones are intact. CT/CT angio chest PE protocol IMPRESSION: 1. No evidence of pulmonary emboli. 2. Right lower lobe atelectasis versus pneumonia. 3. Rounded atelectasis in the left lower lobe as seen previously. 4. Small bilateral pleural effusions. 5. Cirrhosis of the liver and splenomegaly. TIPS shunt in place. Moderate upper abdominal ascites. Electronically signed by: Cash Davidson MD 09/01/2024 10:38 AM EDT RP
--- OUTSIDE RECORDS SUMMARY | 2024-09-01 09:40 | XMS_ITS | Data Portability ---
Author Organization [employer] [employer] [facility] [employer] Address [address] [place] [address] Care Team Providers Care District Manager Major Accounts Sales Name Role Phone HIM CCA OTHER VALORIE GARCÍA Primary Care Provider Assessment Encounter Date Assessment Date Assessment LastModified by Organization Details LastModified Time 12/05/2023 12/05/2023 I have reviewed and agree with the assessment and plan as documented by the technical services representative. I provided real time medical direction for this encounter and was immediately available to provide additional phone based assistance as needed. History as noted by technical services representative. Pt with recent diagnosis of R knee septic arthritis, had knee arthroscopy and wash out performed at [facility] on November 29 and was discharged [...] that he needs to return to [facility] today to have orthopedics evaluate his leg. I stress the importance of having his leg evaluated urgently today to rule out worsening infection. We offer to arrange for an ambulance to take him to the ED, but pt prefers to have his sister take him to the [facility] ED today for evaluation. He states he will go there in about an hour. I have called an expect to the tubing mill setter at the [facility] ED. btils Not available 12/05/2023 11:27:29 Plan [...] Updated DateTime 4 98 % 98 % 266896. 04 g 18 /min 98.2 [degF] 101 /min 104 mm[Hg] 64 mm[Hg] Not Available [facility] - production 4 11:02:34 Social History None recorded. Functional Status None recorded. Mental Status None recorded. Family History Nothing Reported. Medical History No medical history recorded. Past Encounters Encounter ID Performer Location Encounter Start Date Encounter Closed Date Diagnosis/Indication Diagnosis SNOMED-CT Code Diagnosis ICD10 Code Diagnosis Note [id number] Amadou Baez MD Main - [facility] [address] [place] [phone] 12/05/2023 11:02:27 12/06/2023 10:03:23 Cellulitis of right lower limb [id number] L03.115 Health Concerns Section Related Observation LastModified [...] (MEDICARE REPLACEMENT/ADV ANTAGE - HMO) Akash Barboza [id number] Akash Barboza Notes Date Note Type Note Provider Name and Address Organization Details Recorded Time 12/05/2023 text/html This was a supervised home visit with technical services representative Deon Diaz. CRC Nurse Triage Notes (Claudia [...] .................. .................. .................. .................. .................. .................. ............... Garage Construction Equipment Mechanic Note From Deon Diaz: Pt co pain and redness in right leg after surgery this past Sunday. Pt on antibiotics and pain management already. Pt denies fever NVD CP sob. Pt sts redness and pain has increased since release. Baseline vitals assessed, area warm to touch ..afebrile. [facility] contacted and advised pt to go to ER today. Pt declined ambulance and sts his sister will take him to [facility]. Pt education on the risks of not going to ER. .................. .................. .................. .................. .................. .................. .................. ............... Disposition: Fulfilled Amadou Baez MD [address] [facility],[address], [place], [address], [facility] 12/05/2023 11:58:49
--- OUTSIDE RECORDS SUMMARY | 2024-09-01 09:40 | XMS_ITS | Clinical Summary ---
Author Organization [facility] Address [address] [place] [address] Care Team Providers Care Trim Machine Adjuster Name Role Phone Martin Avilez MD Primary Care Provider [phone] Medical History Medical History Date Comments Hypertension [...] age to complete this topic Care Teams Trim Machine Adjuster Relationship Specialty Start Date End Date Martin Avilez MD [address] [place] [address] [address] [place], [place] PCP - General 02/25/18
--- OUTSIDE RECORDS SUMMARY | 2024-09-01 09:40 | XMS_ITS | Clinical Summary ---
Author Organization [facility] Facility Address [address] [address] Care Team Providers Care Floor Surfacer Name Role Phone Unavailable Primary Care Provider [...] age to complete this topic [place]
[2024-09-01] MEDS: iohexoL 350 MG/ML 100 ML INFUS..BTL IV (10:18)
== END 2024-09-01 09:07 | disposition home or self-care (01) ==
LOC: HO.CT 09:06
PROVIDERS: PCP Internal Medicine; Visit Provider Hospitalist
DX: I26.99 Other pulmonary embolism without acute cor pulmonale (principal); R79.89 Other specified abnormal findings of blood chemistry
CPT/HCPCS: 71275; Q9967

== ENCOUNTER → 2024-09-01 09:08 | Outpatient (BNV) | payer OTHER, SELFPAY | PROVIDERS: PCP Internal Medicine; Visit Provider Radiology Diagnostic Radiology | DX: J98.11 Atelectasis (principal); J90 Pleural effusion, not elsewhere classified; K74.60 Unspecified cirrhosis of liver; R16.1 Splenomegaly, not elsewhere classified; R18.8 Other ascites | CPT/HCPCS: 71275 ==

== ENCOUNTER 2024-09-04 11:15 | Day surgery (SDC) | payer OTHER, SELFPAY ==
[2024-09-04] VITALS (10 sets, daily range): BP systolic 116–141; BP diastolic 65–84; PULSE 84–103; RESP 15–23; TEMP 36.4–37.1; O2SAT 97–99; BMI 28.2
--- NOTE | ~2024-09-04 | US_ITS ---
EXAMINATION: US GUIDED PARACENTESIS CLINICAL INFORMATION: Alcoholic cirrhosis. COMPARISON: None available. TECHNIQUE: Following explaining ultrasound-guided paracentesis procedure, benefits and risk, a written consent was obtained. Patient was placed supine on fluoroscopy table and preliminary ultrasound imaging was obtained through the abdomen. An optimal site was selected and marked along the right lower quadrant. There are marked was cleaned and draped in usual sterile manner. 1% lidocaine was administered at puncture site. There is small skin incision a 5 Slovak Yueh catheter was advanced into the peritoneal space right lower quadrant. After observing fluid return the stylet was removed and catheter connective to vacuum bottle and drained connecting cannula. After obtaining all fluid and observing no more fluid return, catheter was withdrawn and complete hemostasis achieved at puncture site. Sterile dressing applied post procedure. FINDINGS: There is moderate free fluid seen in the abdomen on preliminary ultrasound imaging. Approximately 3.6 L of eliseo color fluid was removed from the right lower quadrant. None of this fluid was sent to lab. US/US paracentesis abd w/image IMPRESSION: Successful ultrasound-guided paracentesis performed without immediate complications. Electronically signed by: Maxi Lucia MD 09/04/2024 04:38 PM EDT
[2024-09-04 12:34] LABS: INTERNATIONAL NORM RATIO 1.2 (0.9-1.1); Prothrombin Time 13.5 SEC (10.9-12.4)
[2024-09-04 12:36] LABS: Partial Thromboplastin Time 34.4 SEC (26.0-36.8)
[2024-09-04] MEDS: Lidocaine HCl 1 % MPF 5 ML VIAL SUBCUT (14:06)
== END 2024-09-04 15:05 | disposition home or self-care (01) ==
PROVIDERS: Radiology Diagnostic Radiology; PCP Internal Medicine; Visit Provider Internal Medicine Gastroenterology
DX: K70.31 Alcoholic cirrhosis of liver with ascites (principal); K76.6 Portal hypertension; I10 Essential (primary) hypertension; E78.5 Hyperlipidemia, unspecified; I26.99 Other pulmonary embolism without acute cor pulmonale; Z79.01 Long term (current) use of anticoagulants; E11.9 Type 2 diabetes mellitus without complications; Z98.890 Other specified postprocedural states; Z56.0 Unemployment, unspecified
CPT/HCPCS: 36415; 49083; 85610; 85730; J2003; P9047

== ENCOUNTER → 2024-09-04 13:00 | Outpatient (BNV) | payer OTHER, SELFPAY | PROVIDERS: PCP Internal Medicine; Visit Provider Radiology Diagnostic Radiology | DX: K70.30 Alcoholic cirrhosis of liver without ascites (principal) | CPT/HCPCS: 49083 ==

== ENCOUNTER 2024-10-01 14:34 | Outpatient (REF) | payer OTHER, SELFPAY ==
--- NOTE | ~2024-10-01 | US_ITS ---
CLINICAL HISTORY: LOCALIZED EDEMA Left lower extremity duplex venous Doppler Comparison: US/SR - US VENOUS DUPLEX LE LT - 01/23/24 14:22 EDT Technique: Grayscale/Color/Duplex Doppler sonographic evaluation of the deep venous system within the left lower extremity. Findings: Left lower extremity Common femoral vein: Patent bilaterally CFV/GSV junction: Patent Femoral vein: Patent Popliteal vein: Patent Infrapopliteal veins: Patent where seen Soft tissue: No focal abnormality Impression: 1. Negative for left lower extremity DVT. 2. No Lomeli's cyst This document has been electronically signed by: Kingsley Cali MD on 10/02/2024 08:52:30
--- OUTSIDE RECORDS SUMMARY | 2024-10-01 16:48 | XMS_ITS | Data Portability ---
Author Organization [employer] [facility] [employer] Address [address] [place] [address] Care Team Providers Care Pigment Making Supervisor Name Role Phone HIM CCA OTHER VALORIE GARCÍA Primary Care Provider Assessment Encounter Date Assessment Date Assessment LastModified by Organization Details LastModified Time 12/05/2023 12/05/2023 I have reviewed and agree with the assessment and plan as documented by the brick and block mason. I provided real time medical direction for this encounter and was immediately available to provide additional phone based assistance as needed. History as noted by brick and block mason. Pt with recent diagnosis of R knee septic arthritis, had knee arthroscopy and wash out performed at [facility] on November 29 and was discharged [...] pt that he needs to return to [facility] today to have orthopedics evaluate his leg. I stress the importance of having his leg evaluated urgently today to rule out worsening infection. We offer to arrange for an ambulance to take him to the ED, but pt prefers to have his sister take him to the [facility] ED today for evaluation. He states he will go there in about an hour. I have called an expect to the deburrer at [place] [facility] [place]. btils Not available [...] Updated DateTime 4 98 % 98 % 368920. 04 g 18 /min 98.2 [degF] 101 /min 104 mm[Hg] 64 mm[Hg] Not Available [facility] - production 4 11:02:34 Social History None recorded. Functional Status None recorded. Mental Status None recorded. Family History Nothing Reported. Medical History No medical history recorded. Past Encounters Encounter ID Performer Location Encounter Start Date Encounter Closed Date Diagnosis/Indication Diagnosis SNOMED-CT Code Diagnosis ICD10 Code Diagnosis Note [id number] Amadou Baez MD Main - [facility] [address] [place] [phone] 12/05/2023 11:02:27 12/06/2023 10:03:23 Cellulitis of right lower limb [id number] L03.115 Health Concerns Section Related Observation LastModified by Organization Detai ls LastModified Time None Recorded Concern Status LastModified by Organization Details LastModified Time None Recorded Advance Directives Directive None Recorded Payers Encounter Date Sequence Insurance Name Policy Number Policy Booth Covered Member ID Booth Member ID Guarantor Name 12/05/2023 1 [facility] - DOS ON OR AFTER 2022 - DUAL ELIGIBLE - JAIL OPTIONS AND ONE CARE (MEDICARE REPLACEMENT/ADV ANTAGE - HMO) Akash Barboza [id number] Akash Barboza Notes Date Note Type Note Provider Name and Address Organization Details Recorded Time 12/05/2023 text/html This was a supervised home visit with brick and block mason Deon Diaz. CRC Nurse Triage Notes (Claudia [...] .................. .................. .................. .................. .................. .................. ............... Substation Inspector Note From Deon Diaz: Pt co pain [...] sts his sister will take him [place] [facility] Pt education on the risks of not going to ER. .................. .................. .................. .................. .................. .................. .................. ............... Disposition: Fulfilled Amadou Baez MD [address] [facility], [place], [address], [facility] 12/05/2023 11:58:49
--- OUTSIDE RECORDS SUMMARY | 2024-10-01 16:48 | XMS_ITS | Clinical Summary ---
Author Organization [facility] Address [address] [address] Care Team Providers Care School Operations Manager Name Role Phone Unavailable Primary Care [...] Colorectal Cancer Screening: Sigmoidoscopy 2016 Influenza Vaccine (Season Ended) 2025 Pneumococcal Vaccine: Pediat rics (0 to 5 Years) and At-Risk Patients (6 to 64 Years) Aged Out No longer eligible b ased on patient's age to complete this topic [place]
--- OUTSIDE RECORDS SUMMARY | 2024-10-01 16:48 | XMS_ITS | Clinical Summary ---
Author Organization [facility] Address [address] [place] [address] Care Team Providers Care Suede Brusher Name Role Phone Martin Avilez MD Primary Care Provider [phone] Medical History Medical History Date Comments Hypertension [...] age to complete this topic Meningococcal B Vaccine Aged Out No l onger eligible based on patient's age to complete this topic RSV Immunization Patients Un hailey 20 months Aged Out No longer eligible b ased on patient's age to complete this topic Varicella Vaccines Aged Out No longer eligible based on patient's age to complete this topic Care Teams Suede Brusher Relationship Specialty Start Date End Date Martin Avilez MD [address] [place] [address] [address] [place], [place] PCP - General 02/25/18
== END 2024-10-01 14:35 | disposition home or self-care (01) ==
LOC: HO.US 14:34
PROVIDERS: PCP Internal Medicine; Visit Provider Physician Assistant Medical
DX: R60.0 Localized edema (principal)
CPT/HCPCS: 93971

== ENCOUNTER → 2024-10-01 14:44 | Outpatient (BNV) | payer OTHER, SELFPAY | PROVIDERS: PCP Internal Medicine; Visit Provider Radiology Diagnostic Radiology | DX: R60.0 Localized edema (principal) | CPT/HCPCS: 93971 ==

== ENCOUNTER 2024-10-09 08:23 | Outpatient (REF) | payer OTHER, SELFPAY ==
--- OUTSIDE RECORDS SUMMARY | 2024-10-09 08:45 | XMS_ITS | Data Portability ---
Author Organization [employer] [place] [facility] - [employer] Address [address] [place] [address] Care Team Providers Care Trade Mark Attorney Name Role Phone HIM CCA OTHER VALORIE GARCÍA Primary Care Provider Assessment Encounter Date Assessment Date Assessment LastModified by Organization Details LastModified Time 12/05/2023 12/05/2023 I have reviewed and agree with the assessment and plan as documented by the life scientists. I provided real time medical direction for this encounter and was immediately available to provide additional phone based assistance as needed. History as noted by life scientists. Pt with recent diagnosis of R knee septic arthritis, had knee arthroscopy and wash out performed at [facility] on November 29 and was [...] pt that he needs to return to [facility] today to have orthopedics evaluate his leg. I stress the importance of having his leg evaluated urgently today to rule out worsening infection. We offer to arrange for an ambulance to take him to the ED, but pt prefers to have his sister take him to the [facility] ED today for evaluation. He states he will go there in about an hour. I have called an expect to the philosophy faculty at [place] [facility] [place]. btils Not available 12/05/2023 11:27:29 Plan [...] Updated DateTime 4 98 % 98 % 986632. 04 g 18 /min 98.2 [degF] 101 /min 104 mm[Hg] 64 mm[Hg] Not Available [facility] - production 4 11:02:34 Social History None recorded. Functional Status None recorded. Mental Status None recorded. Family History Nothing Reported. Medical History No medical history recorded. Past Encounters Encounter ID Performer Location Encounter Start Date Encounter Closed Date Diagnosis/Indication Diagnosis SNOMED-CT Code Diagnosis ICD10 Code Diagnosis Note [id number] Amadou Baez MD Main - [facility] [address] [place] [phone] 12/05/2023 11:02:27 12/06/2023 10:03:23 Cellulitis of right lower limb [id number] L03.115 Health Concerns Section Related Observation LastModified by Organization Detai ls LastModified Time None Recorded Concern Status LastModified by Organization Details LastModified Time None Recorded Advance Directives Directive None Recorded Payers Encounter Date Sequence Insurance Name Policy Number Policy Booth Covered Member ID Booth Member ID Guarantor Name 12/05/2023 1 [facility] - DOS ON OR AFTER 2022 - DUAL ELIGIBLE - PENITENTIARY OPTIONS AND ONE CARE (MEDICARE REPLACEMENT/ADV ANTAGE - HMO) Akash Barboza [id number] Akash Barboza Notes Date Note Type Note Provider Name and Address Organization Details Recorded Time 12/05/2023 text/html This was a supervised home visit with life scientists Deon Diaz. CRC Nurse Triage Notes (Claudia [...] .................. .................. .................. .................. .................. .................. ............... Red Leader Note From Deon Diaz: Pt co pain and redness in right leg after surgery this past Sunday. Pt on antibiotics and pain management already. Pt denies fever NVD CP sob. Pt sts redness and pain has increased since release. Baseline vitals assessed, area warm to touch ..afebrile. [facility] contacted and advised pt to go to ER today. Pt declined ambulance and sts his sister will take him to [facility]. Pt education on the risks of not going to ER. .................. .................. .................. .................. .................. .................. .................. ............... Disposition: Fulfilled Amadou Baez MD [address] [facility],[address], [place], [address], [facility] 12/05/2023 11:58:49
--- OUTSIDE RECORDS SUMMARY | 2024-10-09 08:45 | XMS_ITS | Clinical Summary ---
Author Organization [facility] Address [address] [address] Care Team Providers Care Dragsaw Operator Name Role Phone Unavailable Primary Care [...] (1 of 3 - 19+ 3-dose series) 08/19 Colorectal Cancer Screening: Annual FOBT 2016 Colorectal Cancer Screening: Colonoscopy 2016 Colorectal Cancer Screening: Sigmoidoscopy 2016 Pneumococcal Vaccine: 50+ Years (1 of 1 - PCV) 018 Influenza Vaccine (Season Ended) 2025 [place]
--- OUTSIDE RECORDS SUMMARY | 2024-10-09 08:46 | XMS_ITS | Clinical Summary ---
Author Organization [facility] Address [address] [place] [address] Care Team Providers Care Men'S Swim Coach Name Role Phone Martin Avilez MD Primary Care Provider [phone] Medical History Medical History Date Comments Hypertension [...] - 2023-2 5 season) 2024 Influenza Vaccine (Season Ended) 2025 HIB Vaccines Aged Out No longer eligi [...] age to complete this topic Care Teams Men'S Swim Coach Relationship Specialty Start Date End Date Martin Avilez MD [address] [place] [address] [address] [place], [place] PCP - General 02/25/18
[2024-10-09 10:00] LABS: MANUAL DIFF FLAG NO
[2024-10-09 10:20] LABS: Basophils Absolute Auto 0.1 X10*3/uL (0.0-0.2); Basophils Percent Auto 2.6 % (0-2); Eosinophils Absolute Auto 0.2 X10*3/uL (0.0-0.4); Eosinophils Percent Auto 5.3 % (0-4); Hematocrit 38.6 % (42.0-52.0); Hemoglobin 12.9 g/dl (14.0-18.0); Imm Gran Abs Auto 0.01 X10*3/uL (0.00-0.03); Imm Gran Pct Auto 0.3 % (0.0-0.4); Lymphocytes Absolute Auto 0.6 X10*3/uL (1.2-4.9); Lymphocytes Percent Auto 16.7 % (20-40); Mean Corpuscular HGB Conc 33.4 g/dl (31.0-36.0); Mean Corpuscular Hemoglobin 30.4 pg (27.0-33.0); Mean Corpuscular Volume 90.8 fL (80.0-98.0); Mean Platelet Volume 8.6 fL (9.4-12.4); Monocytes Absolute Auto 0.6 X10*3/uL (0.1-1.2); Monocytes Percent Auto 18.1 % (2-11); Platelet Count 162 X10*3/uL (160-400); Red Blood Count 4.25 X10*6/uL (4.60-5.80); Red Cell Distribution Width 14.7 % (11.0-16.0); White Blood Count 3.4 X10*3/uL (4.8-10.8)
[2024-10-09 10:59] LABS: Erythrocyte Sedimentation Rate 38 MM/HR (0-15)
[2024-10-09 11:07] LABS: Rheumatoid Factor < 13.0 IU/mL (<15.0)
[2024-10-13 20:15] LABS: Cyclic Citrullinated Peptide 26 UNITS
== END 2024-10-09 08:24 | disposition home or self-care (01) ==
LOC: HO.LAB 08:23
PROVIDERS: PCP Internal Medicine; Visit Provider Physician Assistant Medical
DX: D64.9 Anemia, unspecified (principal); E11.65 Type 2 diabetes mellitus with hyperglycemia; F10.20 Alcohol dependence, uncomplicated; F33.9 Major depressive disorder, recurrent, unspecified; F41.9 Anxiety disorder, unspecified; G89.4 Chronic pain syndrome; G90.09 Other idiopathic peripheral autonomic neuropathy; I10 Essential (primary) hypertension; M25.50 Pain in unspecified joint; I85.00 Esophageal varices without bleeding; Z95.828 Presence of other vascular implants and grafts; K76.82 Hepatic encephalopathy; K74.60 Unspecified cirrhosis of liver; R18.8 Other ascites; D36.9 Benign neoplasm, unspecified site; R93.2 Abnormal findings on diagnostic imaging of liver and biliary tract
CPT/HCPCS: 36415; 85025; 85652; 86140; 86200; 86431; 99212

== ENCOUNTER 2024-10-09 08:29 | Outpatient (AMB) | payer OTHER, SELFPAY ==
--- NOTE | 2024-10-09 08:42 | MHC.OFFVIS ---
Vital Signs 10/09/24 08:44 Height 6 ft 5 in Weight 244 lb BMI 28.9 BP 132/70 Blood Pressure Location Lt brachial Position Sitting Pulse 90 Pulse Oximetry (%) 98 Oxygen Delivery Method Room Air Intake Visit Reasons: Cirrhosis Intake Note: Patient follow up for Acute alcoholic pancreatitis and US result Patient cc: justo ad he is eating much better with boost are helping him. Automotive Collision Estimator Required: No Accompanied by: Self / Same As Patient Allergies No Known Drug Allergies [NO KNOWN DRUG ALLERGIES] Allergy (Mild, Verified 09/04/24 12:15) NONE Medication List - Last Reconciled 10/09/24 by Jannet Graham MD albuterol sulfate 90 mcg/actuation 2 puffs inhalation Q6H PRN blood sugar diagnostic (FreeStyle Lite Strips) QID blood-glucose meter (FreeStyle Lite Meter kit) As directed carvedilol 6.25 mg PO BID ferrous sulfate 324 mg PO DAILY 90 days folic acid 1 mg PO DAILY furosemide 40 mg PO BID gabapentin 300 mg PO DAILY hydroxyzine pamoate 50 mg PO DAILY PRN lactulose 20 grams (30 mL) PO TID-QID lancets 4 times daily lorazepam 0.5 mg PO DAILY PRN omeprazole 40 mg PO DAILY 90 days ondansetron 4 mg PO Q8H PRN oxycodone-acetaminophen 10-325 mg tabs PO PRN paroxetine HCl 20 mg PO DAILY pen needle, diabetic (Pen Needle) As directed rifaximin (Xifaxan) 550 mg PO BID 90 days ropinirole 0.25 - 0.5 mg PO DAILY PRN spironolactone 100 mg PO BID thiamine HCl (vitamin B1) 100 mg PO DAILY walker As directed HPI HPI Cirrhosis: Details: GI clinic visit for this 59 for FU of ESLD complicated by ascites, esophageal varices (status post banding x 4 in 2022), hepatic hydrothorax and hepatic encephalopathy, portal hypertensive gastropathy, GERD, hypertension, depression, hyperlipidemia. Patient was diagnosed with PE in early 2023 and was started on apixaban. He is status post terminal ileal resection (7 cms) and right hemicolectomy (25 cms) for adenomatous right colon polyps Patient was seen by IR at [facility] in 03/14/2023 and offered a TIPPS placement which he declined. Pt previously followed by Frances Pierre NP and Dr. Mendoza since 06/13/2021 Last paracentesis was performed on 09/04/24 and 3.6 L of fluid was removed TODAY'S VISIT: Patient cc: Patient cc: justo ad he is eating much better with boost are helping him. Had an US last week and no significant fluid found Scheduled for an US for TIPPS FU next week Notes generalized body aches when he wakes up in the am. Had peritoneal catheter removed on 08/06/24 Wt gain from 232 to 235 lbs Has been eating more at night. Continues to drink a few times a week (usually twice a week). Also drinks flavoured water and non-alcoholic beer. Taking lactulose once a day and has two BMs daily Takes Boost 2-3 times a day. PAST VISIT: The patient is trying to stay sober. He is drinking nonalcoholic beer. He says it is more expensive but the taste the same. Last ETOH intake was 2 days ago. He knows that his only option will be a liver transplantation. Having therapeutic paracentesis every 2 weeks. Continues to have intermittent nausea and decreased appetite. Takes alcohol a few times a week and non alcoholic beer sometimes Pt has an appt on 05/14/24 at [facility] - unsure if it is for a TIPPS placement. Always feels fatigued with nausea, poor appetite, intermittent abdominal pain which improves after paracentesis Takes ondansetron SL which helps Gets SOB on climbing stairs Patient denies symptoms of heartburn, dysphagia, nausea, change in weight. Denies recent change in bowel habits, constipation, diarrhea, black stools or rectal bleeding. Pt was started on Eliquis by Dr Alvarez 6 months ago for PE Patient is unsure if he has loud snoring or sleep apnea Denies problems with anesthesia in the past. Drinking 2 beers a day. Thinks he is able to quit Patient denies known family history of liver disease, colon cancer or other GI malignancies. 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 Stigmata of cirrhosis and portal hypertension with [id number] ascites noted. Mima hepatis adenopathy again noted. Evidence of portosystemic collateral vessels including in a small type 1 hiatal hernia and in the gastrohepatic ligament and splenic hilum as well as a small splenorenal shunt 2. Portal veins a small within the liver. Hepatic veins are not well seen due to contrast timing. 3. Chronic lesion in the proximal right femur considered benign. 4. Small to moderate sized umbilical hernia containing ascitic fluid in the anterior wall with a small bowel loop without associated obstruction ENDOSCOPIC STUDIES: 02/21/24 EGD was performed at [facility] which showed portal hypertensive gastropathy and esophageal varices with bleeding and band ligation x 3 was performed 07/26/23 EGD AND COLONOSCOPY WERE PERFORMED BY DR MENDOZA: Impressions:? Esophageal varices (banding x 1) Portal hypertensive gastropathy Portal hypertensive duodenopathy Normal colon mucosa Total of 12 polyps removed from the left side of the colon - hyperplastic on biopsy. Internal hemorrhoids Recommendations:?? Follow biopsy results. Our office will call or send a letter with results within 7-10 days. Continue carvedilol for variceal bleeding prophylaxis Repeat EGD in 6 months Patient continues to drink, and was again counseled very strongly for cessation If 3 or more polyps are adenoma, would recommend repeat colonoscopy in 3 years. Given the polyp burden, we will also discuss referral to genetics for polyposis PENDING SALE TO [facility] Medical History (Updated 10/09/24 @ 09:27 by Jannet Graham MD) Esophageal varices Strangulated umbilical hernia (07/11/24) Cirrhosis of liver Septic arthritis Hx of transfusion of packed red blood cells Umbilical hernia Anxiety Pulmonary nodule 1 cm or greater in diameter Pleuritic chest pain Pulmonary embolism, bilateral Diabetes Alcohol use disorder, moderate, dependence Recurrent left pleural effusion Pleural effusion Pericardial effusion Tachycardia Dyspnea Hydropneumothorax Pleural effusion on right Decompensation of cirrhosis of liver Cirrhosis GERD (gastroesophageal reflux disease) Chronic abdominal pain Gout Peripheral neuropathy Alcoholism Elevated LFTs Surgical History (Updated 10/09/24 @ 08:48 by Jannet Graham MD) History of carpal tunnel surgery of left wrist S/P right knee arthroscopy History of abdominal paracentesis Hx of esophagogastroduodenoscopy History of thoracentesis H/O colonoscopy H/O cervical spine surgery H/O hemicolectomy Family History Mother Cancer Sister Cancer Social History Household Members: Other Household Members Other:: roomate Housing: Apartment Are you a primary patient care nursing assistant to a significant other at home: No Do you presently have visiting nurse or other home services: No Alcohol intake: current Alcohol intake frequency: a few times a week Alcohol type: beer Comment: counts correct Patient Tobacco Use Status: Former Tobacco user Tobacco use type: Smokeless Tobacco Years Smoked: 35 e-Cigarette/Vaping Use: Former Use Second Hand Smoke Exposure: No Substance Use Type: Marijuana Advance Directives Date on File: 12/03/23 service: No Current occupational status: unemployed Physical Exam Vital Signs: Last Vital Signs Pulse 90 10/09/24 08:44 BP 132/70 10/09/24 08:44 Pulse Ox 98 10/09/24 08:44 Oxygen Delivery Method Room Air 10/09/24 08:44 BMI result Body Mass Index 28.9 Const General: no acute distress Nutritional Appearance: overweight Orientation/consciousness: patient oriented x3 Limitations: ambulation with cane HEENT Head: Yes normal to inspection Ears: hearing grossly normal bilaterally Eyes Sclerae: sclerae normal Pupils: Equal, round and reactive pupils present Neck Neck: Yes normal visual inspection Chest Chest palpation & inspection: normal inspection of the chest Resp Effort & Inspection: normal respiratory effort Auscultation: clear to auscultation bilaterally Cardio Palpation: normal PMI Rate: regular rate Rhythm: regular rhythm Heart sounds: S1 normal heart sound present, S2 normal heart sound present and no murmurs GI Palpation (GI): Soft to palpation, nontender and Hepatomegaly present (Liver palpable 4 cms below RCM) Auscultation: normal bowel sounds Rectal Exam - Male: Yes deferred Skin General skin exam: no rashes or lesions noted Neuro General: patient oriented x3, gait normal and moves all extremities Cranial nerves: Yes Equal, round and reactive pupils present Extrem General: Yes pedal edema (trace pitting edema) Psych Appearance: grossly normal Mental Status: mental status grossly normal Assessment & Plan Assessment & Plan (1) Esophageal varices: Comment: Determined on endoscopy at [facility] requesting records Code(s): I85.00 - Esophageal varices without bleeding Category: Medical (2) S/P TIPS (transjugular intrahepatic portosystemic shunt): Onset Date: ~06/2024 Comment: 07/09/24 Pt had a successful TIPS placement by Dr Salazar (IR at [facility]) Pt reports he had the TIPS readjusted at an Imaging office in [place] a few weeks ago Code(s): Z95.828 - Presence of other vascular implants and grafts Category: Surgical (3) Hepatic encephalopathy: Code(s): K76.82 - Hepatic encephalopathy Category: Medical (4) Cirrhosis of liver with ascites: Code(s): K74.60 - Unspecified cirrhosis of liver; R18.8 - Other ascites Category: Medical (5) Multiple adenomatous polyps: Code(s): D36.9 - Benign neoplasm, unspecified site Category: Medical (6) Abnormal CT scan, liver: Code(s): R93.2 - Abnormal findings on diagnostic imaging of liver and biliary tract Category: Medical Plan 59 YM with ESLD complicated by ascites, esophageal varices (status post banding x 4 in 2022), hepatic hydrothorax and hepatic encephalopathy, portal hypertensive gastropathy, GERD, hypertension, depression, hyperlipidemia. Patient was diagnosed with PE in early 2023 and was started on apixaban (Followed by Pulmonary - Dr Alvarez). He is status post terminal ileal resection (7 cms) and right hemicolectomy (25 cms) for adenomatous right colon polyps Patient was seen by IR at [facility] in 03/14/2023 and offered a TIPPs placement which he declined. Pt was scheduled for periportal lymph node biopsy by IR at [facility] and procedure was canceled due to presence of tense ascites. Biopsy was not rescheduled due to unfavorable risk benefit profile and concern for complications from FNA and advised monitoring with imaging Also pt is considered a poor candidate for systemic therapy in case malignancy is diagnosed. 05/14/24 TIPS procedure was attempted at [facility] and was unsuccesful He is being scheduled for a 2nd attempt at TIPS placement at [facility]. REDUCING THE RISK OF LIVER PROGRESSION: patient was advised to completely avoid use of alcohol and lose weight. Continues to drink a few times a week (usually twice a week). HCC SURVEILLANCE: the patient is at risk of developing hepatocellular carcinoma given the presence of cirrhosis and need 6 monthly imaging surveillance with either abdominal ultrasound (US) or multiphase cross-sectional imaging (CT or MRI). Last Abd US on 02/04/24 had shown no focal liver lesions suspicious of HCC. He will be scheduled for follow-up liver imaging for ongoing surveillance. 11/2023 ABD MRI SHOWED: Stable enlarged portacaval lymph node possibly corresponding to the FDG avid focus seen on the recent PET/CT. Similar amorphous soft tissue in the retroperitoneum anterior to the abdominal aorta along the celiac axis and SMA measuring 3.3 x 11.2 cm in transverse. Nodular surface contour of the liver. Hepatomegaly and hepatic steatosis. No suspicious hepatic lesion. Pt was scheduled for periportal lymph node biopsy at [facility]. Procedure was canceled due to presence of tense ascites. Procedure was not rescheduled due to concern for complications from FNA and advised monitoring with imaging Also pt is considered a poor candidate for systemic therapy incase malignancy is diagnosed. SURVEILLANCE FOR GASTROESOPHAGEAL VARICES: Past EGD showed esophageal varices which were treated with band ligation. Patient had a successful tips placement on 07/09/2024 QUESTION OF LIVER TRANSPLANTATION: Pt is not a candidate for liver transplantation at present due to ongoing ETOH and drug abuse. Pt is scheduled for a regular therapeutic paracentesis for management of recurrent ascites despite taking diuretics. 05/15/24 TIPS placement was attempted via transjugular and transhepatic approach by Dr Buchanan at [facility] and was felt to be unsuccessful due to a firm and cirrhotic liver and portal venous anatomy Pt was not considered a good candidate for BRTO and advised continued management with regular therapeutic paracentesis. 07/09/24 Pt had a successful TIPS placement by Dr Salazar (IR at [facility]) Pt reports he had the TIPS readjusted at an Imaging office in [place] a few weeks later and has a FU appt 07/11/24 Pt had an open umbilical herniorrhaphy with Bard mesh, placement of peritoneal dialysis catheter and drainage of ascitic fluid. Peritoneal dialysis catheter were was subsequently removed. 08/14/24 Pt advised to have a therapeutic paracentesis in 1-2 weeks. Continue Furosemide 40 mg twice daily and spironolactone 100 mg twice a day. 10/09/24 patient had an US last week at [facility] and no significant fluid was detected. [facility] [address], [place]. [address] , FU in 2 months - scheduled 12/11/24 Orders: Orders CT abdomen pelvis w IV con 10/09/24 R93.2 - Abnormal findings on diagnostic imaging of liver and biliary tract Coding Level of Care Code Est Pt Level 4 (32498) Complex EM visit Add On G2211 Diagnoses Esophageal varices I85.00 S/P TIPS (transjugular intrahepatic portosystemic shunt) Z95.828 Hepatic encephalopathy K76.82 Cirrhosis of liver with ascites K74.60; R18.8 Multiple adenomatous polyps D36.[address] scan, liver R93.2 Time Spent (min) 22
[2024-10-09 08:44] VITALS: BP 132/70; PULSE 90; O2SAT 98; BMI 28.9
== END 2024-10-09 09:29 | disposition home or self-care (01) ==
LOC: HO.HGI 08:30
PROVIDERS: PCP Internal Medicine; Visit Provider Internal Medicine Gastroenterology
DX: I85.00 Esophageal varices without bleeding (principal); Z95.828 Presence of other vascular implants and grafts; K76.82 Hepatic encephalopathy; K74.60 Unspecified cirrhosis of liver; R18.8 Other ascites; D36.9 Benign neoplasm, unspecified site; R93.2 Abnormal findings on diagnostic imaging of liver and biliary tract
CPT/HCPCS: 99214; G2211

== ENCOUNTER 2024-11-07 09:01 | Outpatient (REF) | payer OTHER, SELFPAY ==
--- NOTE | ~2024-11-07 | CT_ITS ---
EXAMINATION: CT ABDOMEN AND PELVIS WITH CONTRAST CLINICAL INFORMATION: Follow-up prominent lymph nodes in torres hepatis. COMPARISON: CTPA 1025. CT abdomen and pelvis 07/11/2024. CT chest 03/12/2024. TECHNIQUE: Multidetector volumetric images were obtained from the superior aspect of the liver through the pubic symphysis following administration 85 mL of Omnipaque 350 intravenous contrast. Sagittal and coronal reformatted images were obtained on the technologist's workstation. Oral contrast: Yes This CT examination was performed using dose optimization techniques as appropriate, variously including the following: *Automated exposure control *Adjustment of mA and/or kV according to patient size (this includes techniques or standardized protocols for targeted exams where dose is matched to indication/reason for exam; i.e. extremities or head) *Use of iterative reconstruction technique FINDINGS: LUNG BASES: Rounded atelectasis again noted in the left base, with a tiny pleural effusion associated. There is a nodular consolidative opacity in the medial right lower lobe, measuring 3.9 x 3.0 cm in axial plane, possibly airspace disease although given the appearance, other etiologies not excluded. This appears to have been enlarging over time since 07/11/2024. Neoplasm is a consideration. There is a trace right pleural effusion. LIVER, GALLBLADDER, AND BILIARY TREE: Liver is diffusely cirrhotic. There is a TIPS catheter in place. No definite focal suspicious hepatic mass identified. There are stigmata of portal hypertension. The gallbladder demonstrates small gallstones and minimal wall thickening, likely secondary to cirrhotic changes. PANCREAS: Unremarkable. SPLEEN: Mild splenomegaly. There are splenic varices and splenorenal varices. ADRENAL GLANDS: Unremarkable. KIDNEYS AND URETERS: The kidneys are normal in size, shape, and attenuation. No hydronephrosis, hydroureter, or calculi seen. No perinephric stranding. BLADDER: Essentially collapsed, limiting evaluation. GASTROINTESTINAL TRACT: The stomach is decompressed, limiting evaluation, particularly of the fundus and body. Normal duodenal sweep. The small bowel has normal caliber and course throughout. No wall thickening or inflammation. There has been a right colectomy. The ileocolonic anastomosis in the superior mid abdomen is unremarkable in appearance. No rectal abnormalities. PERITONEUM: There is small to moderate volume ascites within the abdomen and pelvis. There is no free intraperitoneal air. ABDOMINAL WALL: There is a tiny left fat-containing inguinal hernia. LYMPH NODES: No abnormal lymphadenopathy is noted. Specifically, no abnormal lymph nodes in the torres hepatis, aortocaval region, or retroperitoneal region. VASCULAR: Moderate atheromatous calcification of the aorta and iliac arteries as well as their branches. There is no aneurysm. There is coil material present within the gastroduodenal artery. PELVIC VISCERA: The prostate and seminal vesicles are unremarkable. OSSEOUS STRUCTURES: No lytic or blastic bone lesions identified. Mild spinal degenerative changes. Mild to moderate bilateral hip joint degenerative changes. CT/CT abdomen pelvis w IV con IMPRESSION: 1. No abnormal lymphadenopathy within the torres hepatis, aortocaval region, or retroperitoneum currently identified. 2. Slightly increasing rounded airspace opacity in the medial right lower lobe, probably round atelectasis given appearance, although appears to have been enlarging over time since 03/12/2024 CT exam. Attention to this abnormality on close interval follow-up examinations recommended. 3. There is rounded atelectasis in the left lower lobe with a small pleural effusion. 4. Hepatic cirrhosis with stigmata of portal hypertension. No suspicious hepatic lesion. TIPS catheter in place. Coil material within the GDA. 5. Right hemicolectomy with unremarkable appearing ileocolonic anastomosis. 6. Small to moderate volume abdominal and pelvic ascites. Electronically signed by: Dao El MD 11/07/2024 10:09 AM EDT
--- OUTSIDE RECORDS SUMMARY | 2024-11-07 09:14 | XMS_ITS | Data Portability ---
Author Organization [employer] [place] [facility] - [employer] Address [address] [place] [address] Care Team Providers Care Contract Recruiter Name Role Phone HIM CCA OTHER VALORIE GARCÍA Primary Care Provider Assessment Encounter Date Assessment Date Assessment LastModified by Organization Details LastModified Time 12/05/2023 12/05/2023 I have reviewed and agree with the assessment and plan as documented by the awning erector. I provided real time medical direction for this encounter and was immediately available to provide additional phone based assistance as needed. History as noted by awning erector. Pt with recent diagnosis of R knee septic arthritis, had knee arthroscopy and wash out performed at [facility] on November 29 and was [...] that he needs to return to [facility] today to have orthopedics evaluate his leg. I stress the importance of having his leg evaluated urgently today to rule out worsening infection. We offer to arrange for an ambulance to take him to the ED, but pt prefers to have his sister take him to the [facility] ED today for evaluation. He states he will go there in about an hour. I have called an expect to the forest fire specialist supervisor at the [facility] ED. btils Not available [...] Updated DateTime 4 98 % 98 % 279694. 04 g 18 /min 98.2 [degF] 101 /min 104 mm[Hg] 64 mm[Hg] Not Available [facility] - production 4 11:02:34 Social History None recorded. Functional Status None recorded. Mental Status None recorded. Family History Nothing Reported. Medical History No medical history recorded. Past Encounters Encounter ID Performer Location Encounter Start Date Encounter Closed Date Diagnosis/Indication Diagnosis SNOMED-CT Code Diagnosis ICD10 Code Diagnosis Note [id number] Amadou Baez MD Main - [facility] [address] [place] [phone] 12/05/2023 11:02:27 12/06/2023 10:03:23 Cellulitis of right lower limb [id number] L03.115 Health Concerns Section Related Observation LastModified by Organization Detai ls LastModified Time None Recorded Concern Status LastModified by Organization Details LastModified Time None Recorded Advance Directives Directive None Recorded Payers Insurance Date Sequence Insurance Name Policy Number Policy Booth Covered Member ID Booth Member ID Guarantor Name 12/05/2023 1 [facility] - DOS ON OR AFTER 2022 - DUAL ELIGIBLE - [facility] OPTIONS AND ONE CARE (MEDICARE REPLACEMENT/ADV ANTAGE - HMO) Akash Barboza [id number] Akash Barboza Notes Date Note Type Note Provider Name and Address Organization Details Recorded Time 12/05/2023 text/html This was a supervised home visit with awning erector Deon Diaz. [facility] Nurse Triage Notes (Claudia [...] .................. .................. .................. .................. .................. .................. ............... Exchange Operator Note From Deon Diaz: Pt co pain and redness in right leg after surgery this past Sunday. Pt on antibiotics and pain management already. Pt denies fever NVD CP sob. Pt sts redness and pain has increased since release. Baseline vitals assessed, area warm to touch ..afebrile. [facility] contacted and advised pt to go to ER today. Pt declined ambulance and sts his sister will take him to [facility]. Pt education on the risks of not going to ER. .................. .................. .................. .................. .................. .................. .................. ............... Disposition: Fulfilled Amadou Baez MD [address] [facility],[address], [place], [address], [facility] 12/05/2023 11:58:49
--- OUTSIDE RECORDS SUMMARY | 2024-11-07 09:14 | XMS_ITS | Clinical Summary ---
Author Organization [facility] Address [address] [place] [address] Care Team Providers Care Management Expert Name Role Phone Martin Avilez MD Primary Care Provider [phone] Medical History Medical History Date Comments Hypertension [...] age to complete this topic Care Teams Management Expert Relationship Specialty Start Date End Date Martin Avilez MD [address] [place] [address] [address] [place], [place] PCP - General 02/25/18
--- OUTSIDE RECORDS SUMMARY | 2024-11-07 09:14 | XMS_ITS | Clinical Summary ---
Author Organization [facility] Facility Address [address] [address] Care Team Providers Care Perishable Fruit Inspector Name Role Phone Unavailable Primary Care Provider [...] Influenza Vaccine (Season Ended) 2025 Insurance Medicaid [place] Medicaid [place]
[2024-11-07] MEDS: iohexoL 350 MG/ML 100 ML INFUS..BTL IV (09:44)
[2024-11-10 09:25] LABS: Creatinine POC 0.7 mg/dL (0.5-1.4); GFR POC > 60
== END 2024-11-07 09:02 | disposition home or self-care (01) ==
LOC: HO.CT 09:01
PROVIDERS: PCP Internal Medicine; Visit Provider Internal Medicine Gastroenterology
DX: R93.2 Abnormal findings on diagnostic imaging of liver and biliary tract (principal)
CPT/HCPCS: 74177; 82565; Q9967

== ENCOUNTER → 2024-11-07 09:03 | Outpatient (BNV) | payer OTHER, SELFPAY | PROVIDERS: PCP Internal Medicine; Visit Provider Radiology Diagnostic Radiology | DX: K74.60 Unspecified cirrhosis of liver (principal); J90 Pleural effusion, not elsewhere classified; J98.11 Atelectasis; R18.8 Other ascites | CPT/HCPCS: 74177 ==

== ENCOUNTER → 2024-12-03 09:53 | Outpatient (REF) | payer OTHER, SELFPAY ==
--- NOTE | ~2024-12-03 | NM_ITS ---
EXAMINATION: NM BONE SCAN WHOLE BODY HISTORY: DISORDER BONE. TECHNIQUE: A total body bone scan was performed following intravenous administration of 35 mCi technetium 99m-MDP. COMPARISON: There are no prior studies available for comparison. FINDINGS: There is a small focus of increased uptake in the right occiput, of uncertain significance. A focus of uptake in the right posterior elements of L5 appears degenerative in nature on an abdominal/pelvic CT scan dated 11/07/2024. Mild increased activity at the knees and shoulders is symmetric, and likely degenerative in nature. The remainder of the visualized osseous structures demonstrate a normal distribution of activity. There is normal bilateral renal uptake. NM/NM bone scan whole body IMPRESSION: 1. Small focus of increased uptake in the right occiput, of uncertain significance. This could be further evaluated with head CT if indicated. 2. Findings consistent with degenerative uptake in the lower lumbar spine, shoulders, and knees. Electronically signed by: Cash Davidson MD 12/03/2024 02:39 PM EDT
== END ==
LOC: HO.NUCMED 09:53
PROVIDERS: PCP Internal Medicine; Visit Provider Physician Assistant Medical
DX: M89.9 Disorder of bone, unspecified (principal); M25.50 Pain in unspecified joint; M79.10 Myalgia, unspecified site
CPT/HCPCS: 78306; A9503

== ENCOUNTER → 2024-12-03 12:03 | Outpatient (BNV) | payer OTHER, SELFPAY | PROVIDERS: PCP Internal Medicine; Visit Provider Radiology Diagnostic Radiology | DX: M85.9 Disorder of bone density and structure, unspecified (principal) | CPT/HCPCS: 78306 ==

== ENCOUNTER 2024-12-31 09:58 | Outpatient (AMB) | payer OTHER, SELFPAY ==
[2024-12-31 10:00] VITALS: BP 116/64; PULSE 84; O2SAT 97; BMI 29.7
--- NOTE | 2024-12-31 10:00 | A.OFFVIS_ITS ---
Vital Signs 12/31/24 10:00 Height 6 ft 5 in Weight 250 lb 3.594 oz BMI 29.7 BP 116/64 Blood Pressure Location Lt brachial Position Sitting Pulse 84 Pulse Source Pulse Oximeter Pulse Oximetry (%) 97 Oxygen Delivery Method Room Air Intake Visit Reasons: Pulmonary Nodule Board Setter Required: No Accompanied by: Self / Same As Patient Allergies No Known Drug Allergies (NO KNOWN DRUG ALLERGIES) Allergy (Mild, Verified 12/31/24 10:06) NONE HPI Comments Details: The patient is a 59 y/o man with a history of decompensated alcoholic cirrhosis with varices and right pleural effusion.? Was most recently discharged 11/03/2021 after hospitalization GI bleed.? Patient now complaining of several days of right-sided chest pain, sharp, worse with inspiration.? Associated with shortness of breath worse on exertion, improved with rest, progressively worsening.? Patient continues to drink alcohol, last drink was 2 days prior to presentation.? He has also noticed to be feeling shaky.? In ED CTA was negative for PE but did show moderate right-sided effusion. the patient did undergo thoracentesis demonstrating what appeared to be a transudative process, lymphocytic predominant. His lymphocyte count was elevated In the pleural fluid. The patient did feel better after the thoracentesis. He did not have any abdominal interventions. After the procedure the patient felt better and subsequently was discharged. we did review his imaging studies including his CT scan demonstrating moderate to large pleural effusion on the right side. Explained to him that this is consistent with hepatic hydrothorax. the patient does have a history of varices in addition to portal vein thrombosis. He does have a prescription for Aldactone and Lasix. We talked about the importance of taking the medication. He also needs to take additional diuretic if he is getting any weight. His kidney function is stable. We did talk about his meld score demonstrating of 3 month mortality of 20%. Patient understands that this is very serious. His only potential intervention will be to quit drinking and being referred to a transplant center. The patient did have misconceptions about liver transplants. We did re-educated about the benefits of liver transplant specially with his worsening liver failure. The patient understands that alcohol withdrawal can be very serious. Once he starts withdrawal he needs to seek medical care. the cough 04/26/2023 the patient is here for a pulmonary follow-up visit. The patient had been in the hospital he was diagnosed with a pulmonary embolism. In addition to that he had a left-sided pleural effusion. It was drained. It was a little bit more serosanguineous. Afterwards he was having some shortness of breath we did repeat the chest x-ray demonstrating interval worsening of the pleural effusion and we did request for thoracentesis. He has not have had the thoracentesis as of yet. However, he is feeling better. On examination I do appreciate some breath sounds at the left base which is reassuring. Therefore will hold off on the thoracentesis specially since he is on the blood thinners and will go ahead and repeat the x-ray in 2-3 weeks. If he has any worsening symptoms he can always get the x-ray sooner. He knows that for any procedure he would have to stop the Eliquis for a couple days. He also understands that with blood clots he needs to be on the blood thinners for at least 3 months. If not longer. The patient has had a history of blood clots I think in the portal vein system. No evidence of any lower extremity DVTs which is reassuring. He is tolerating the Eliquis without any evidence of any bleeding. Unfortunately the still drinking alcohol. We did talk about making sure that he quits drinking in order to consider the possibility of a lung transplant in the future. 07/17/2023 the patient is here for pulmonary follow-up visit. The patient since we spoke had a chest x-ray demonstrating moderate sided pleural effusion. Therefore we sent him for thoracentesis. He had to stop the Eliquis however. Therefore took a little longer. By the time that he was scheduled for the thoracentesis. By the time that he got a thoracentesis done he was already feeling better she was not sure if he should had a done. After the thoracentesis and drained about a L and a have the patient started having left- sided chest discomfort. He was then shoveling and snow blowing so had a hard time knowing for sure if the left-sided discomfort with musculoskeletal or if it was related to his procedure. Therefore we had and come back for chest x-ray. No evidence of any pneumothorax although it appears that the pleural effusion was increasing after the thoracentesis already occurred. Explained to the patient likely that he has a component of trapped lung on that side and therefore the negative pressure causes tugging of the lung causing pain and subsequently once the fluid comes back the symptoms do resolve. He does have the crease and diminished breath sounds absent breath sounds on the left base suggesting the fluid is already back. The patient also has been taking Eliquis and his hemoglobin has been dropping. He is scheduled for an endoscopy and also colonoscopy. In part is due to the blood thinners. This is because he had blood clots that were noted back in March 2023. Will go ahead and repeat a CTA in the coming months to make sure that the blood clots or gone in case he needs to stop the anticoagulation. 03/07/2024 the patient is here for a pulmonary follow-up visit. He had been admitted to the hospital with upper GI bleed secondary to variceal bleed. Subsequently transferred to [facility] for potential tips. The patient was reluctant. He needs to talk further with his regular GI doctor. In the meantime has been having shortness of breath. We did have him get a chest x-ray and does not appear to be having significant fluid buildup of these in the left lung. Appears to be slightly loculated. No need for thoracentesis right now. The patient did have a CT scan of the chest demonstrating pulmonary nodules however. Therefore he would need to get a repeat CT scan of the chest at this time to further address the nodular densities. He continues on the diuresis therapy. He is also working on his sobriety. 05/26/2024 the patient is here for a pulmonary follow-up visit. Since we last spoke she was evaluated at [facility] in the tips procedure was attempted although they could not completed because of his vessels were too small. Multiple people tried in the were able to do so. He did undergo a significant paracentesis or a 9-10 L. the patient has been getting frequent paracentesis. We did look at his last CT scan of the chest demonstrating what appears to be a small loculated pleural effusion and some scarring in the left base. Not enough to tap. In addition to that he has had issues with anemia. Specially with his gastric varices and esophageal varices. His hemoglobin is down. He has been off the Eliquis and has been doing well. Will go ahead and keep him off the Eliquis at this time. Will request a D-dimer to make sure that is staying within normal. The patient had a CTA back in 09/12/2023 demonstrating resolution of the blood cl ots. At this point if we can keep him off the anticoagulation or probably best because of his significant risk of bleeding. The patient is trying to stay sober. He is drinking nonalcoholic beer. He says it is more expensive but the taste the same. He knows that his only option will be a liver transplantation. He potentially is a candidate but he needs to quit any kind of alcoholic beverages and follow-up with GI to see if he can be referred. Again this is a long shot for him but is some something that he can still try to achieve. 08/28/2024 The patient is here for a pulmonary follow up visit. He is s/p TIPS procedure and his ascites and pleural effusions have been better. Still complaining of dyspnea, moderate in severity with worsening with activity. His last CTA demonstrated also pulmonary nodules. He continues drinking alcohol unfortunately. Hopefully, he can quit. He has been off the Eliquis for many months. In the meantime we did have him undergo bloodwork today. He did have a critically high ddimer and needs to have a CTA to r/o PE. 12/31/2024 the patient is here for pulmonary follow-up visit. The patient overall has been doing well after getting the tips procedure. Seems to be working very well. He has not required any paracentesis or thoracentesis. He has been off the anticoagulation he has been tolerating that well. He does have underlying pulmonary nodules and he does have a CAT scan pending. Continues to drink alcohol unfortunately. We did talk about getting sober in order for him to be able to qualify for liver transplant. The patient appears to be in part motivated. Will continue to try to encourage him to do so. The patient is doing well on the current therapy will follow-up sometime in the spring. If any issues arise he will call for an earlier assessment. [facility] Medical History (Updated 12/31/24 @ 21:58 by Nawaf Alvarez MD) Pulmonary nodule Esophageal varices Strangulated umbilical hernia (07/11/24) Cirrhosis of liver Septic arthritis Hx of transfusion of packed red blood cells Umbilical hernia Anxiety Pulmonary nodule 1 cm or greater in diameter Pleuritic chest pain Pulmonary embolism, bilateral Diabetes Alcohol use disorder, moderate, dependence Recurrent left pleural effusion Pleural effusion Pericardial effusion Tachycardia Dyspnea Hydropneumothorax Pleural effusion on right Decompensation of cirrhosis of liver Cirrhosis GERD (gastroesophageal reflux disease) Chronic abdominal pain Gout Peripheral neuropathy Alcoholism Elevated LFTs Surgical History (Updated 10/09/24 @ 08:48 by Jannet Graham MD) History of carpal tunnel surgery of left wrist S/P right knee arthroscopy History of abdominal paracentesis Hx of esophagogastroduodenoscopy History of thoracentesis H/O colonoscopy H/O cervical spine surgery H/O hemicolectomy Family History Mother Cancer Sister Cancer Social History Household Members: Other Household Members Other:: roomate Housing: Apartment Are you a primary care transition coordinator to a significant other at home: No Do you presently have visiting nurse or other home services: No Alcohol intake: current Alcohol intake frequency: a few times a week Alcohol type: beer Comment: counts correct Patient Tobacco Use Status: Former Tobacco user Tobacco use type: Smokeless Tobacco Years Smoked: 35 e-Cigarette/Vaping Use: Former Use Second Hand Smoke Exposure: No Substance Use Type: Marijuana Advance Directives Date on File: 12/03/23 service: No Current occupational status: unemployed Review of Systems Const Unobtainable due to mental condition Denies fatigue, Denies fever(s), Denies night sweats and Reports weight gain Eyes Denies change in vision ENT Reports Normal hearing present Card Reports no additional complaints, Denies chest pain and Reports dyspnea on exertion Resp Denies chest congestion, Denies cough, Denies hemoptysis, Denies pain on inspiration, Denies pain with cough and Reports dyspnea on exertion GI Reports as per HPI Musc Reports arthralgias Skin/Breast Denies pruritus Neuro Reports Normal hearing present and Denies Abnormal speech present Endo Denies fatigue Physical Exam Vital Signs: Last Vital Signs Pulse 84 12/31/24 10:00 BP 116/64 12/31/24 10:00 Pulse Ox 97 12/31/24 10:00 Oxygen Delivery Method Room Air 12/31/24 10:00 BMI result Body Mass Index 29.7 Const General: alert Orientation/consciousness: patient oriented x3 HEENT Head: Yes normal to inspection Neck Neck: Yes supple Chest Chest palpation & inspection: normal inspection of the chest Resp Effort & Inspection: normal respiratory effort Auscultation: no rales and diminished lung sounds Percussion: no dullness to percussion Cardio Rate: regular rate Rhythm: regular rhythm Heart sounds: S1 normal heart sound present and S2 normal heart sound present GI Inspection: Yes distended Skin General skin exam: spider nevi Neuro General: patient oriented x3 Cranial nerves: Yes Normal hearing present Speech: No Abnormal speech present Extrem General: Yes no clubbing, cyanosis or edema Assessment & Plan Assessment & Plan (1) Pleural effusion: Code(s): J90 - Pleural effusion, not elsewhere classified Category: Medical (2) Alcoholic cirrhosis of liver: Code(s): K70.30 - Alcoholic cirrhosis of liver without ascites Category: Medical Qualifiers: Ascites presence: with ascites Qualified Code(s): K70.31 - Alcoholic cirrhosis of liver with ascites (3) Lung mass: Comment: ?rounded atelectasis Code(s): R91.8 - Other nonspecific abnormal finding of lung field Category: Medical Plan diuresis as tolerated needs to stay sober, non alcoholic beer CT chest 08/2025 F/U Spring 2025 Orders: Orders CT chest wo IV con 08/23/25 R91.8 - Other nonspecific abnormal finding of lung field Coding Level of Care Code Est Pt Level 4 (10060) Complex EM visit Add On G2211 Diagnoses Pleural effusion J90 Alcoholic cirrhosis of liver with ascites K70.31 Ascites presence: with ascites Lung mass R91.8 Time Spent (min) 16
--- OUTSIDE RECORDS SUMMARY | 2024-12-31 10:39 | XMS_ITS | Data Portability ---
Author Organization [facility] Address [address] [place] [address] Care Team Providers Care Production Clerks Supervisor Name Role Phone HIM CCA OTHER VALORIE GARCÍA Primary Care Provider [phone] Assessment Encounter Date Assessment Date Assessment LastModified by Organization Details LastModified Time 12/05/2023 12/05/2023 I have reviewed and agree with the assessment and plan as documented by the key account manager. I provided real time medical direction for this encounter and was immediately available to provide additional phone based assistance as needed. History as noted by key account manager. Pt with recent diagnosis of R knee septic arthritis, had knee arthroscopy and wash out performed at [facility] on November 29 and was discharged home [...] pt that he needs to return to [facility] today to have orthopedics evaluate his leg. I stress the importance of having his leg evaluated urgently today to rule out worsening infection. We offer to arrange for an ambulance to take him to the ED, but pt prefers to have his sister take him to the [facility] ED today for evaluation. He states he will go there in about an hour. I have called an expect to the computer forensics technician at the [facility] [...] Respiratory rate Body temperature Heart rate Systolic And Diastolic Provider Name and Address Organization Details Last Updated DateTime 4 98 % 98 % 081257. 04 g 18 /min 98.2 [degF] 101 /min 104/64 mm[Hg] Not Available [facility] - production 4 11:02:34 Social History None recorded. Functional Status None recorded. Mental Status None recorded. Family History Nothing Reported. Medical History No medical history recorded. Past Encounters Encounter ID Performer Location Encounter Start Date Encounter Closed Date Diagnosis/Indication Diagnosis SNOMED-CT Code Diagnosis ICD10 Code Diagnosis Note [id number] Amadou Baez MD Main - [address] [address] 12/05/2023 11:02:27 12/06/2023 10:03:23 Cellulitis of right lower limb [id number] L03.115 Health Concerns Section Related Observation LastModified by Organization Detai ls LastModified Time None Recorded Concern Status LastModified by Organization Details LastModified Time None Recorded Advance Directives Directive None Recorded Payers Insurance Date Sequence Insurance Name Policy Number Policy Booth Covered Member ID Booth Member ID Guarantor Name 12/05/2023 1 [facility] - DOS ON OR AFTER 2022 - DUAL ELIGIBLE - LONG TERM OPTIONS AND ONE CARE (MEDICARE REPLACEMENT/ADV ANTAGE - HMO) Akash Barboza [id number] Akash Barboza Notes Date Note Type Note Provider Name and Address Organization Details Recorded Time 12/05/2023 text/html This was a supervised home visit with key account manager Deon Diaz. [facility] Nurse Triage Notes (Claudia [...] .................. .................. .................. .................. .................. .................. ............... Engineering Department Chair Note From Deon Diaz: Pt co pain and redness in right leg after surgery this past Sunday. Pt on antibiotics and pain management already. Pt denies fever NVD CP sob. Pt sts redness and pain has increased since release. Baseline vitals assessed, area warm to touch ..afebrile. [facility] contacted and advised pt to go to ER today. Pt declined ambulance and sts his sister will take him to [facility]. Pt education on the risks of not going to ER. .................. .................. .................. .................. .................. .................. .................. ............... Disposition: Fulfilled Amadou Baez MD [address] [facility], [place], [address], NEGAR ROTH 12/05/2023 11:58:49
--- OUTSIDE RECORDS SUMMARY | 2024-12-31 10:39 | XMS_ITS | Clinical Summary ---
Author Organization [facility] Address [address] [place] [address] Care Team Providers Care Signal Apprentice Name Role Phone Martin Avilez MD Primary Care Provider [phone] Medical History Medical History Date Comments Hypertension [...] 5 Years) and At-Risk Patients (6 to 49 Years) (1 of 2 - PCV) 1986 Zoster Vaccines (1 of 2) 2017 Cholesterol Screening (Lipid Panel) 05/28/2022 Colorectal Cancer Screening: Colonoscopy 05/28/2022 Depression Screening 05/28/2022 HIV Screening 05/28/2022 Hepatitis C Screening 05/28/2022 Social Influencers of Health Screening 05/28/2022 COVID-19 Vaccine ( - 2023-2 5 season) 2024 Influenza Vaccine (#1) 2025 HIB Vaccines Aged Out No longer [...] age to complete this topic Care Teams Signal Apprentice Relationship Specialty Start Date End Date Martin Avilez MD [address] [place] [address] [address] [place], [place] PCP - General 02/25/18
--- OUTSIDE RECORDS SUMMARY | 2024-12-31 10:39 | XMS_ITS | Clinical Summary ---
Author Organization [facility] Address [address] [address] Care Team Providers Care Leach Tank Tender Name Role Phone Unavailable Primary Care Provider [...] of 1 - PCV) 018 Influenza Vaccine (#1) 2025 Insurance Medicaid [place] Medicaid [place]
== END 2024-12-31 10:24 | disposition home or self-care (01) ==
LOC: HO.HPS 09:59
PROVIDERS: PCP Internal Medicine; Visit Provider Hospitalist
DX: J90 Pleural effusion, not elsewhere classified (principal); K70.31 Alcoholic cirrhosis of liver with ascites; R91.8 Other nonspecific abnormal finding of lung field
CPT/HCPCS: 99214; G2211

== ENCOUNTER → 2024-12-31 09:58 | Outpatient (BNVA) | payer OTHER, SELFPAY | PROVIDERS: PCP Internal Medicine; Visit Provider Hospitalist | DX: J90 Pleural effusion, not elsewhere classified (principal); R07.81 Pleurodynia; R91.8 Other nonspecific abnormal finding of lung field; K70.31 Alcoholic cirrhosis of liver with ascites | CPT/HCPCS: 99212 ==

== ENCOUNTER 2025-01-23 14:18 | Outpatient (REF) | payer OTHER, SELFPAY ==
--- NOTE | ~2025-01-23 | XR_ITS ---
EXAMINATION: XR CHEST CLINICAL INFORMATION: R06.00 - Dyspnea, unspecified COMPARISON: July 11, 2024. Correlated to CT chest dated September 01, 2024. TECHNIQUE: 2 views of the chest were obtained. FINDINGS: Haziness in the mid to lower left hemithorax and blunting of the left costophrenic angle. Mild prominence of the interstitial markings in the perihilar regions. No gross pneumothorax. Lateral projection demonstrated a semicircular opacity in the posterior lower hemithorax overlapping the thoracic spine. Cardiomediastinal silhouette size is normal. Mild multilevel thoracic spondylosis. Degenerative changes in the acromioclavicular joints. XR/XR chest 2V IMPRESSION: Left-sided effusion, moderate volume with questionable loculated effusion. Recommend CT chest. Mild interstitial lung edema versus acute small airway inflammatory process. Electronically signed by: Krish Paredes MD 01/23/2025 02:42 PM EDT
--- OUTSIDE RECORDS SUMMARY | 2025-01-23 14:21 | XMS_ITS | Clinical Summary ---
Author Organization [facility] Address [address] [place] [id number] Phone Care Team Providers Care Agronomy Technician Name Role Phone Unavailable Primary Care Provider Unavailabl e Social History Tobacco Use Types Packs/Day Years Used Date Smoking Tobacco: Never Assessed Education Answer Date Recorded Are you interested in more education? Not on colton e 10/21/2022 Are you concerned about learning? Not on file 10/21/2022 No 10/21/2022 No 10/21/2022 Digital Access Answer Date Recorded No 11/21/2022 No 11/21/2022 Reliable internet access at home? Not on file 11/21/2022 Device with a working camera? Not on file Sex and Gender Information Value Date Recorded Sex Assigned at Not on file Legal Sex Male 3:27 PM EDT Gender Identity Not on file Sexual Orientation Not on file Plan of Treatment Not on file Medical Devices Not on file Additional Source Comments The information contained in this document represents components of the legal health record. It is not the complete legal health record.[facility]
--- OUTSIDE RECORDS SUMMARY | 2025-01-23 14:21 | XMS_ITS | Clinical Summary ---
Author Organization [facility] Facility Address [address] [address] Care Team Providers Care Pin Cleaner Name Role Phone Unavailable Primary Care Provider [...] 018 Influenza Vaccine (#1) 2025 Insurance Medicaid [place] Medicaid [place]
--- OUTSIDE RECORDS SUMMARY | 2025-01-23 14:21 | XMS_ITS | Clinical Summary ---
Author Organization [facility] Address [address] [place] [address] Care Team Providers Care Assembler Latches And Springs Name Role Phone Martin Avilez MD Primary Care Provider [phone] Medical History Medical History Date Comments Hypertension [...] ars (1 of 2 - PCV) 1986 Zoster Vaccines (1 of 2) 2017 Cholesterol Screening (Lipid Panel) 05/28/2022 Colorectal Cancer Screening: Colonoscopy 05/28/2022 HIV Screening 05/28/2022 Hepatitis C Screening 05/28/2022 Social Influencers of Health Screening 05/28/2022 COVID-19 Vaccine (1 - 2023-2 5 season) 2024 Depression Screening 06/25/2024 Influenza Vaccine (#1) 2025 HIB Vaccines Aged [...] age to complete this topic Care Teams Assembler Latches And Springs Relationship Specialty Start Date End Date Martin Avilez MD [address] [facility] [address] [place], [place] PCP - General 02/25/18
== END 2025-01-23 14:19 | disposition home or self-care (01) ==
LOC: HO.XRAY 14:18
PROVIDERS: PCP Internal Medicine; Visit Provider Hospitalist
DX: R07.81 Pleurodynia (principal); R06.00 Dyspnea, unspecified
CPT/HCPCS: 71046

== ENCOUNTER → 2025-01-23 14:21 | Outpatient (BNV) | payer OTHER, SELFPAY | PROVIDERS: PCP Internal Medicine; Visit Provider Radiology Diagnostic Radiology | DX: J90 Pleural effusion, not elsewhere classified (principal) | CPT/HCPCS: 71046 ==

== ENCOUNTER 2025-02-15 09:02 | Outpatient (REF) | payer OTHER, SELFPAY ==
--- NOTE | ~2025-02-15 | MR_ITS ---
CLINICAL HISTORY: hernández, abn findings on dx imaging MR Brain without gadolinium Comparison: None provided Findings: No restricted diffusion. No intra-axial mass or hemorrhage. Age appropriate cerebral volume loss. Patchy high FLAIR signal within the periventricular and subcortical white matter. No midline shift. No hydrocephalus. Vascular flow voids are intact. The orbits are normal. Mild bilateral ethmoid sinus mucosal thickening. Mastoids are clear. No focal bone lesion. IMPRESSION: Unremarkable brain MRI. This document has been electronically signed by: Chance Pollock MD on 02/16/2025 15:49:27
== END 2025-02-15 09:03 | disposition home or self-care (01) ==
LOC: HO.MRI 09:02
PROVIDERS: PCP Internal Medicine; Visit Provider Physician Assistant Medical
DX: R51.9 Headache, unspecified (principal); R93.0 Abnormal findings on diagnostic imaging of skull and head, not elsewhere classified
CPT/HCPCS: 70551

== ENCOUNTER → 2025-02-15 09:05 | Outpatient (BNV) | payer OTHER, SELFPAY | PROVIDERS: PCP Internal Medicine; Visit Provider Radiology Diagnostic Radiology | DX: R51.9 Headache, unspecified (principal); R90.89 Other abnormal findings on diagnostic imaging of central nervous system | CPT/HCPCS: 70551 ==

== ENCOUNTER 2025-02-16 12:38 | Outpatient (REF) | payer OTHER, SELFPAY ==
--- NOTE | ~2025-02-16 | CT_ITS ---
EXAMINATION: CT CHEST WITHOUT CONTRAST CLINICAL INFORMATION: R91.8. Other nonspecified abnormal finding of the lung. COMPARISON: September 01, 2024 TECHNIQUE: Multidetector volumetric CT imaging of the chest was done. Axial MIP volume rendering provided. Sagittal and coronal reformatted images were obtained. This CT examination was performed using dose optimization techniques as appropriate, variously including the following: *Automated exposure control *Adjustment of mA and/or kV according to patient size (this includes techniques or standardized protocols for targeted exams where dose is matched to indication/reason for exam; i.e. extremities or head) *Use of iterative reconstruction technique. DLP: 231 mGy centimeter. FINDINGS: PHONE REPRESENTATIVE: No hyperinflation. Opacity left lower hemithorax. Scoliosis and multilevel spondylosis. Stenting overlapping the right hemiabdomen region. LUNGS: There is a 6 cm attenuation with air bronchograms measuring 37 Hounsfield units centered in the left lower lung lobe. There is a 4 cm round attenuation with air bronchograms centered in the right lower lung lobe measuring 23 Hounsfield units. MEDIASTINUM: No gross lymphadenopathy, mediastinum. No gross pericardial effusion. No pneumomediastinum. No aneurysm in the thoracic aorta. Calcified plaques in the thoracic aortic arch and descending thoracic aorta. CORONARY ARTERY CALCIFICATION: Subtle calcified plaque. PLEURA: Bilateral small pleural effusions. No pneumothorax. No calcified pleural plaques. AXILLA: No lymphadenopathy. UPPER ABDOMEN: Status post tips. Ascites. Status post coil embolization creating beam hardening artifact in the region of the celiac trunk. OSSEOUS STRUCTURES: Multilevel spondylosis without acute fracture or listhesis. No lytic or blastic lesions. Bilateral gynecomastia. CT/CT chest wo IV con IMPRESSION: Persistent round atelectasis versus airspace disease, both lung bases. Bilateral pleural effusions, small volume decrease since prior exam. Cirrhosis with ascites and status post TIPS. Concerning for portal hypertension. Fleischner guidelines were followed. Electronically signed by: Krish Paredes MD 02/16/2025 01:12 PM EDT
--- OUTSIDE RECORDS SUMMARY | 2025-02-16 13:46 | XMS_ITS | Clinical Summary ---
Author Organization [facility] Address [address] [place] [address] Care Team Providers Care Resaw Carriage Operator Name Role Phone Martin Avilez MD Primary Care Provider Medical History Medical History Date Comments Hypertension [...] age to complete this topic Care Teams Resaw Carriage Operator Relationship Specialty Start Date End Date Martin Avilez MD [address] [facility] [address] [place], [place] PCP - General 02/25/18
--- OUTSIDE RECORDS SUMMARY | 2025-02-16 13:46 | XMS_ITS | Clinical Summary ---
Author Organization [facility] Address [address] [facility] [address] [place] [phone] Phone Care Team Providers Care Puddler Pile Driving Name Role Phone Unavailable Primary Care Provider [...] It is not the complete legal health record.[facility]
--- OUTSIDE RECORDS SUMMARY | 2025-02-16 13:46 | XMS_ITS | Clinical Summary ---
Author Organization [facility] Address [address] [address] Care Team Providers Care Bundle Sorter Name Role Phone Unavailable Primary Care Provider [...] 018 Influenza Vaccine (#1) 2025 Insurance Medicaid [place] Medicaid [place]
== END 2025-02-16 12:39 | disposition home or self-care (01) ==
LOC: HO.CT 12:38
PROVIDERS: PCP Internal Medicine; Visit Provider Hospitalist
DX: R91.8 Other nonspecific abnormal finding of lung field (principal); R91.1 Solitary pulmonary nodule
CPT/HCPCS: 71250

== ENCOUNTER → 2025-02-16 12:40 | Outpatient (BNV) | payer OTHER, SELFPAY | PROVIDERS: PCP Internal Medicine; Visit Provider Radiology Diagnostic Radiology | DX: J90 Pleural effusion, not elsewhere classified (principal) | CPT/HCPCS: 71250 ==

== ENCOUNTER 2025-03-25 10:44 | Outpatient (REF) | payer OTHER, SELFPAY ==
--- OUTSIDE RECORDS SUMMARY | 2025-03-25 12:19 | XMS_ITS | Clinical Summary ---
Author Organization [facility] Facility Address [address] [address] Care Team Providers Care Obstetrics Nurse Practitioner Name Role Phone Unavailable Primary Care Provider [...] 018 Influenza Vaccine (#1) 2025 Insurance Medicaid [place] Medicaid [place]
--- OUTSIDE RECORDS SUMMARY | 2025-03-25 12:19 | XMS_ITS | Clinical Summary ---
Author Organization [facility] Address [address] [place] [address] Care Team Providers Care Executor Of Estate Name Role Phone Martin Avilez MD Primary Care Provider [phone] Medical History Medical History Date Comments Hypertension [...] Health Maintenance Due Date Last Done Comments Colorectal Cancer Screening: Colonoscopy 1967 DTaP,Tdap,and Td Vaccines (1 - Tdap) 1986 Hepatitis B Vaccines (1 of 3 - 19+ 3-dose series) 1986 Pneumococcal Vaccine: 50+ Ye ars (1 of 2 - PCV) 1986 Zoster Vaccines (1 of 2) 2017 Cholesterol Screening (Lipid Panel) 05/28/2022 HIV Screening 05/28/2022 Hepatitis C Screening 05/28/2022 Social Influencers of Health Screening 05/28/2022 Depression Screening 06/25/2024 COVID-19 Vaccine ( - 2023-2 5 season) 2025 Influenza Vaccine (#1) 2025 RSV Immunization Adult Patie nts (1 - 1-dose 75+ series) 2042 HIB Vaccines Aged Out No longer eligi [...] age to complete this topic Care Teams Executor Of Estate Relationship Specialty Start Date End Date Martin Avilez MD [address] [place], [place] PCP - General 02/25/18
--- OUTSIDE RECORDS SUMMARY | 2025-03-25 12:19 | XMS_ITS | Clinical Summary ---
Author Organization [facility] Address [address] [place] [phone] Phone Care Team Providers Care Panel Monitor Name Role Phone Unavailable Primary Care Provider [...] It is not the complete legal health record.[facility]
[2025-03-25 12:30] LABS: Blood Urea Nitrogen 5 mg/dL (9-16); Estimated Glomerular Filt Rate > 60
== END 2025-03-25 10:45 | disposition home or self-care (01) ==
LOC: HO.LAB 10:44
PROVIDERS: PCP Internal Medicine; Visit Provider Radiology Vascular & Interventional Radiology
DX: R94.4 Abnormal results of kidney function studies (principal); R79.89 Other specified abnormal findings of blood chemistry
CPT/HCPCS: 36415; 82565; 84520

== ENCOUNTER 2025-05-07 13:14 | Outpatient (AMB) | payer OTHER, SELFPAY ==
--- NOTE | 2025-05-07 13:16 | MHC.OFFVIS ---
Vital Signs 05/07/25 13:23 Height 6 ft 5 in Weight 238 lb BMI 28.2 BP 122/74 Blood Pressure Location Rt brachial Position Sitting Pulse 88 Pulse Source Pulse Oximeter Pulse Oximetry (%) 95 Oxygen Delivery Method Room Air Intake Visit Reasons: Follow up Intake Note: Patient follow up for Acute alcoholic pancreatitis and CT scan results. Patient cc: Pt denies any new GI sx or concerns at this time. Confirms his current Rx are working as intended. Workers Compensation Claims Specialist Required: No Accompanied by: Self / Same As Patient Allergies No Known Drug Allergies (NO KNOWN DRUG ALLERGIES) Allergy (Mild, Verified 05/07/25 13:16) NONE Medication List - Last Reconciled 05/07/25 by Jannet Graham MD albuterol sulfate 90 mcg/actuation 2 puffs inhalation Q6H PRN blood sugar diagnostic (FreeStyle Lite Strips) QID blood-glucose meter (FreeStyle Lite Meter kit) As directed carvedilol 6.25 mg PO BID ferrous sulfate 324 mg PO DAILY 90 days folic acid 1 mg PO DAILY furosemide (Lasix) 40 mg PO DAILY 3 days gabapentin 300 mg PO DAILY hydroxyzine pamoate 50 mg PO DAILY PRN lactulose 20 grams (30 mL) PO TID-QID lancets 4 times daily lorazepam 0.5 mg PO DAILY PRN omeprazole 40 mg PO DAILY ondansetron 4 mg PO Q8H PRN oxycodone-acetaminophen 10-325 mg tabs PO PRN paroxetine HCl 30 mg PO DAILY pen needle, diabetic (Pen Needle) As directed rifaximin (Xifaxan) 550 mg PO BID ropinirole 0.25 - 0.5 mg PO DAILY PRN spironolactone 100 mg PO BID thiamine HCl (vitamin B1) 100 mg PO DAILY walker As directed HPI HPI Follow up: Details: GI clinic visit for this 59 YM for FU of ESLD complicated by ascites, esophageal varices (status post banding x 4 in 2022), hepatic hydrothorax and hepatic encephalopathy, portal hypertensive gastropathy, GERD, hypertension, depression, hyperlipidemia. Patient was diagnosed with PE in early 2023 and was started on apixaban. He is status post terminal ileal resection (7 cms) and right hemicolectomy (25 cms) for adenomatous right colon polyps Patient was seen by IR at [facility] in 03/14/2023 and offered a TIPPS placement which he declined. Pt previously followed by Frances Pierre, KAMARI and Dr. Mendoza since 06/13/2021 Last paracentesis was performed on 09/04/24 and 3.6 L of fluid was removed TODAY'S VISIT: Patient denies any new GI sx or concerns at this time. Confirms his current Rx are working as intended. Had TIPPS revision x 2 - last 3 weeks ago He was told no more revisions by IR. Complains of recurrent abdominal distension. Had paracentesis 2 weeks ago and 5 litres was removed. Cutting back on ETOH - 4 drinks per week PAST VISIT: Had an US last week and no significant fluid found Scheduled for an US for TIPPS FU next week Notes generalized body aches when he wakes up in the am. Had peritoneal catheter removed on 08/06/24 Wt gain from 232 to 235 lbs Has been eating more at night. Continues to drink a few times a week (usually twice a week). Also drinks flavoured water and non-alcoholic beer. Taking lactulose once a day and has two BMs daily Takes Boost 2-3 times a day. The patient is trying to stay sober. He is drinking nonalcoholic beer. He says it is more expensive but the taste the same. Last ETOH intake was 2 days ago. He knows that his only option will be a liver transplantation. Having therapeutic paracentesis every 2 weeks. Continues to have intermittent nausea and decreased appetite. Takes alcohol a few times a week and non alcoholic beer sometimes Pt has an appt on 05/14/24 at [facility] - unsure if it is for a TIPPS placement. Always feels fatigued with nausea, poor appetite, intermittent abdominal pain which improves after paracentesis Takes ondansetron SL which helps Gets SOB on climbing stairs Patient denies symptoms of heartburn, dysphagia, nausea, change in weight. Denies recent change in bowel habits, constipation, diarrhea, black stools or rectal bleeding. Pt was started on Eliquis by Dr Alvarez 6 months ago for PE Patient is unsure if he has loud snoring or sleep apnea Denies problems with anesthesia in the past. Drinking 2 beers a day. Thinks he is able to quit Patient denies known family history of liver disease, colon cancer or other GI malignancies. 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 Stigmata of cirrhosis and portal hypertension with [id number] ascites noted. Mima hepatis adenopathy again noted. Evidence of portosystemic collateral vessels including in a small type 1 hiatal hernia and in the gastrohepatic ligament and splenic hilum as well as a small splenorenal shunt 2. Portal veins a small within the liver. Hepatic veins are not well seen due to contrast timing. 3. Chronic lesion in the proximal right femur considered benign. 4. Small to moderate sized umbilical hernia containing ascitic fluid in the anterior wall with a small bowel loop without associated obstruction ENDOSCOPIC STUDIES: 02/21/24 EGD was performed at [facility] which showed portal hypertensive gastropathy and esophageal varices with bleeding and band ligation x 3 was performed 07/26/23 EGD AND COLONOSCOPY WERE PERFORMED BY DR MENDOZA: Impressions:? Esophageal varices (banding x 1) Portal hypertensive gastropathy Portal hypertensive duodenopathy Normal colon mucosa Total of 12 polyps removed from the left side of the colon - hyperplastic on biopsy. Internal hemorrhoids Recommendations:?? Follow biopsy results. Our office will call or send a letter with results within 7-10 days. Continue carvedilol for variceal bleeding prophylaxis Repeat EGD in 6 months Patient continues to drink, and was again counseled very strongly for cessation If 3 or more polyps are adenoma, would recommend repeat colonoscopy in 3 years. Given the polyp burden, we will also discuss referral to genetics for polyposi [facility] Medical History (Updated 05/07/25 @ 13:34 by Jannet Graham MD) History of abdominal paracentesis Pulmonary nodule Esophageal varices Strangulated umbilical hernia (07/11/24) Septic arthritis Hx of transfusion of packed red blood cells Umbilical hernia Anxiety Pulmonary nodule 1 cm or greater in diameter Pleuritic chest pain Pulmonary embolism, bilateral Diabetes Alcohol use disorder, moderate, dependence Recurrent left pleural effusion Pleural effusion Pericardial effusion Tachycardia Dyspnea Hydropneumothorax Pleural effusion on right Decompensation of cirrhosis of liver Cirrhosis GERD (gastroesophageal reflux disease) Chronic abdominal pain Gout Peripheral neuropathy Alcoholism Elevated LFTs Surgical History History of carpal tunnel surgery of left wrist S/P right knee arthroscopy Hx of esophagogastroduodenoscopy History of thoracentesis H/O colonoscopy H/O cervical spine surgery H/O hemicolectomy Family History Mother Cancer Sister Cancer Social History Household Members: Other Household Members Other:: roomate Housing: Apartment Are you a primary field care manager to a significant other at home: No Do you presently have visiting nurse or other home services: No Alcohol intake: current Alcohol intake frequency: a few times a week Alcohol type: beer Comment: counts correct Patient Tobacco Use Status: Former Tobacco user Tobacco use type: Smokeless Tobacco Years Smoked: 35 e-Cigarette/Vaping Use: Former Use Second Hand Smoke Exposure: No Substance Use Type: Marijuana Advance Directives Date on File: 12/03/23 service: No Current occupational status: unemployed Review of Systems Const All systems reviewed & are unremarkable except as noted in HPI and below Physical Exam Vital Signs: Last Vital Signs Pulse 88 05/07/25 13:23 BP 122/74 05/07/25 13:23 Pulse Ox 95 05/07/25 13:23 Oxygen Delivery Method Room Air 05/07/25 13:23 BMI result Body Mass Index 28.2 Const General: no acute distress and ill appearing chronically Nutritional Appearance: average body habitus Orientation/consciousness: patient oriented x3 Limitations: no limitations HEENT Head: Yes normal to inspection Ears: hearing grossly normal bilaterally Mouth: Normal oral and palatal mucosa present Eyes Sclerae: sclerae normal Pupils: Equal, round and reactive pupils present Neck Neck: Yes normal visual inspection Chest Chest palpation & inspection: normal inspection of the chest Resp Effort & Inspection: normal respiratory effort Auscultation: clear to auscultation bilaterally Cardio Palpation: normal PMI Rate: regular rate Rhythm: regular rhythm Heart sounds: S1 normal heart sound present, S2 normal heart sound present and no murmurs GI Inspection: Yes distended (due to ascites) Palpation (GI): Soft to palpation, nontender and No hepatosplenomegaly present Auscultation: normal bowel sounds Rectal Exam - Male: Yes deferred Skin General skin exam: no rashes or lesions noted Neuro General: patient oriented x3, gait normal and moves all extremities Cranial nerves: Yes Equal, round and reactive pupils present Extrem General: No pedal edema Psych Appearance: grossly normal Mental Status: mental status grossly normal Assessment & Plan Assessment & Plan (1) Esophageal varices: Comment: Determined on endoscopy at [facility] requesting records Code(s): I85.00 - Esophageal varices without bleeding Category: Medical (2) S/P TIPS (transjugular intrahepatic portosystemic shunt): Onset Date: ~06/2024 Comment: 07/09/24 Pt had a successful TIPS placement by Dr Salazar (IR at [facility]) Pt reports he had the TIPS readjusted at an Imaging office in [place] a few weeks ago Code(s): Z95.828 - Presence of other vascular implants and grafts Category: Surgical (3) Cirrhosis of liver with ascites: Code(s): K74.60 - Unspecified cirrhosis of liver; R18.8 - Other ascites Category: Medical (4) Hepatopulmonary syndrome: Comment: Garlic (containing allium sativum) ? Garlic (containing allium sativum) is thought to decrease nitric oxide synthesis, thereby acting as a potential therapy for HPS. As an example, one prospective randomized, placebo-controlled trial evaluated the effects of oral garlic supplementation (1 to 2 g/m2/day) in 41 patients with HPS [64]. After nine months, compared with placebo, garlic supplementation resulted in a three-fold increase in baseline arterial oxygen levels and a decrease in alveolar-arterial oxygen gradient. Reversal of HPS was observed in 14 of 21 patients treated with garlic compared with only 1 of 20 patients in the placebo group (67 versus 5 percent). Mortality was also lower among patients receiving garlic (10 versus 35 percent). Code(s): K76.81 - Hepatopulmonary syndrome Category: Medical Plan 59 YM with ESLD complicated by ascites, esophageal varices (status post banding x 4 in 2022), hepatic hydrothorax and hepatic encephalopathy, portal hypertensive gastropathy, GERD, hypertension, depression, hyperlipidemia. Patient was diagnosed with PE in early 2023 and was started on apixaban (Followed by Pulmonary - Dr Alvarez). He is status post terminal ileal resection (7 cms) and right hemicolectomy (25 cms) for adenomatous right colon polyps Patient was seen by IR at [facility] in 03/14/2023 and offered a TIPPs placement which he declined. Pt was scheduled for periportal lymph node biopsy by IR at [facility] and procedure was canceled due to presence of tense ascites. Biopsy was not rescheduled due to unfavorable risk benefit profile and concern for complications from FNA and advised monitoring with imaging Also pt is considered a poor candidate for systemic therapy in case malignancy is diagnosed. 05/14/24 TIPS procedure was attempted at [facility] and was unsuccesful He is being scheduled for a 2nd attempt at TIPS placement at [facility]. REDUCING THE RISK OF LIVER PROGRESSION: patient was advised to completely avoid use of alcohol and lose weight. Continues to drink a few times a week (usually twice a week). HCC SURVEILLANCE: the patient is at risk of developing hepatocellular carcinoma given the presence of cirrhosis and need 6 monthly imaging surveillance with either abdominal ultrasound (US) or multiphase cross-sectional imaging (CT or MRI). Last Abd US on 02/04/24 had shown no focal liver lesions suspicious of HCC. He will be scheduled for follow-up liver imaging for ongoing surveillance. 11/2023 ABD MRI SHOWED: Stable enlarged portacaval lymph node possibly corresponding to the FDG avid focus seen on the recent PET/CT. Similar amorphous soft tissue in the retroperitoneum anterior to the abdominal aorta along the celiac axis and SMA measuring 3.3 x 11.2 cm in transverse. Nodular surface contour of the liver. Hepatomegaly and hepatic steatosis. No suspicious hepatic lesion. Pt was scheduled for periportal lymph node biopsy at [facility]. Procedure was canceled due to presence of tense ascites. Procedure was not rescheduled due to concern for complications from FNA and advised monitoring with imaging Also pt is considered a poor candidate for systemic therapy incase malignancy is diagnosed. SURVEILLANCE FOR GASTROESOPHAGEAL VARICES: Past EGD showed esophageal varices which were treated with band ligation. Patient had a successful tips placement on 07/09/2024 QUESTION OF LIVER TRANSPLANTATION: Pt is not a candidate for liver transplantation at present due to ongoing ETOH and drug abuse. Pt is scheduled for a regular therapeutic paracentesis for management of recurrent ascites despite taking diuretics. 05/15/24 TIPS placement was attempted via transjugular and transhepatic approach by Dr Buchanan at [facility] and was felt to be unsuccessful due to a firm and cirrhotic liver and portal venous anatomy Pt was not considered a good candidate for BRTO and advised continued management with regular therapeutic paracentesis. 07/09/24 Pt had a successful TIPS placement by Dr Salazar (IR at [facility]) Pt reports he had the TIPS readjusted at an Imaging office in [place] a few weeks later and has a FU appt 07/11/24 Pt had an open umbilical herniorrhaphy with Bard mesh, placement of peritoneal dialysis catheter and drainage of ascitic fluid. Peritoneal dialysis catheter were was subsequently removed. 08/14/24 Pt advised to have a therapeutic paracentesis in 1-2 weeks. Continue Furosemide 40 mg twice daily and spironolactone 100 mg twice a day. 10/09/24 patient had an US last week at [facility] and no significant fluid was detected. [facility] [address], [place] [address] , 05/07/25 Had TIPPS revision x 2 - last 3 weeks ago He was told no more revisions by IR. Complains of recurrent abdominal distension. Had paracentesis 2 weeks ago and 5 litres was removed. He plans to contact [facility] to schedule repeat paracentesis next week Pt is due for a colonoscopy in Jul, 2026 for follow-up of colon polyps. Obtain copy for Abd US report from [facility] FU in 4 months Orders: Orders Comprehensive Met. Panel Today K74.60 - Unspecified cirrhosis of liver, R18.8 - Other ascites Prothrombin Time INR Today K74.60 - Unspecified cirrhosis of liver, R18.8 - Other ascites US abdomen limited Today K74.60 - Unspecified cirrhosis of liver, R18.8 - Other ascites Complete Blood Count no Diff Today K74.60 - Unspecified cirrhosis of liver, R18.8 - Other ascites Coding Level of Care Code Est Pt Level 4 ([id number]) Complex EM visit Add On G2211 Diagnoses Esophageal varices I85.00 S/P TIPS (transjugular intrahepatic portosystemic shunt) Z95.828 Cirrhosis of liver with ascites K74.60; R18.8 Hepatopulmonary syndrome K76.81 Time Spent (min) 23
[2025-05-07 13:23] VITALS: BP 122/74; PULSE 88; O2SAT 95; BMI 28.2
--- OUTSIDE RECORDS SUMMARY | 2025-05-07 16:35 | XMS_ITS | Clinical Summary ---
Author Organization [facility] Address [address] [place] [address] Care Team Providers Care Actuarial Analyst Name Role Phone Martin Avilez MD Primary Care Provider [phone] Medical History Medical History Date Comments Hypertension [...] Screening 05/28/2022 Depression Screening 06/25/2024 COVID-19 Vaccine (1 - 2024-2 6 season) 2025 Influenza Vaccine (#1) 2025 RSV [...] age to complete this topic Care Teams Actuarial Analyst Relationship Specialty Start Date End Date Martin Avilez MD [address] [place], [place] PCP - General 02/25/18
--- OUTSIDE RECORDS SUMMARY | 2025-05-07 16:35 | XMS_ITS | Clinical Summary ---
Author Organization [facility] Facility Address [address] [address] Care Team Providers Care Hollow Handle Bench Worker Name Role Phone Unavailable Primary Care Provider [...] 018 Influenza Vaccine (#1) 2025 Insurance Medicaid [place] Medicaid [place]
--- OUTSIDE RECORDS SUMMARY | 2025-05-07 16:35 | XMS_ITS | Data Portability ---
Author Organization [employer] Information [facility] Address [address] [place] [address] Care Team Providers Care Packaging Design Engineer Name Role Phone HIM CCA OTHER VALORIE GARCÍA Primary Care Provider [phone] Assessment Encounter Date Assessment Date Assessment LastModified by Organization Details LastModified Time 12/05/2023 12/05/2023 I have reviewed and agree with the assessment and plan as documented by the work manager. I provided real time medical direction for this encounter and was immediately available to provide additional phone based assistance as needed. History as noted by work manager. Pt with recent diagnosis of R knee septic arthritis, had knee arthroscopy and wash out performed at [facility] on November 29 and was discharged [...] pt that he needs to return to [facility] today to have orthopedics evaluate his leg. I stress the importance of having his leg evaluated urgently today to rule out worsening infection. We offer to arrange for an ambulance to take him to the ED, but pt prefers to have his sister take him to the [facility] ED today for evaluation. He states he will go there in about an hour. I have called an expect to the elementary school tutor [place] [facility] [place] b[place]s [...] Updated DateTime 4 98 % 98 % 070555. 04 g 18 /min 98.2 [degF] 101 /min 104/64 mm[Hg] Not Available [facility] - production 4 11:02:34 Social History None recorded. Functional Status None recorded. Mental Status None recorded. Family History Nothing Reported. Medical History No medical history recorded. Past Encounters Encounter ID Performer Location Encounter Start Date Encounter Closed Date Diagnosis/Indication Diagnosis SNOMED-CT Code Diagnosis ICD10 Code Diagnosis IMO Codes Diagnosis Note [id number] Amadou Baez MD Main - [facility] [address] [place] [id number] 12/05/2023 11:02:27 12/06/2023 10:03:23 Cellulitis of right lower limb 8567630505 8445484 L03.115 Health Concerns Section Related Observation LastModified by Organization Detai ls LastModified Time None Recorded Concern Status LastModified by Organization Details LastModified Time None Recorded Advance Directives Directive None Recorded Payers Insurance Date Sequence Insurance Name Policy Number Policy Booth Covered Member ID Booth Member ID Guarantor Name 12/05/2023 1 [facility] - DOS ON OR AFTER 2022 - DUAL ELIGIBLE - [employer] OPTIONS AND ONE CARE (MEDICARE REPLACEMENT/ADV ANTAGE - HMO) Akash Barboza [id number] Akash Barboza Notes Date Note Type Note Provider Name and Address Organization Details Recorded Time 12/05/2023 text/html ROS as noted in the HPI This was a supervised home visit with work manager Deon Diaz. CRC Nurse Triage Notes [...] .................. .................. .................. .................. .................. .................. ............... Host/Hostess Restaurant Note From Deon Diaz: Pt co pain and redness in right leg after surgery this past Sunday. Pt on antibiotics and pain management already. Pt denies fever NVD CP sob. Pt sts redness and pain has increased since release. Baseline vitals assessed, area warm to touch ..afebrile. [facility] contacted and advised pt to go to ER today. Pt declined ambulance and sts his sister will take him [place] [facility] Pt education on the risks of not going to ER. .................. .................. .................. .................. .................. .................. .................. ............... Disposition: Fulfilled Amadou Baez MD [address] [facility],[address], [place], [address], NEGAR ROTH 12/05/2023 11:58:49
--- OUTSIDE RECORDS SUMMARY | 2025-05-07 16:35 | XMS_ITS | Clinical Summary ---
Author Organization [facility] Address [address] [facility] [address] [place] [address] Phone Care Team Providers Care Pulmonologist Intensivist Name Role Phone Unavailable Primary Care Provider Unavailabl e Social History Tobacco Use Types Packs/Day Years Used Date Smoking Tobacco: Never Assessed Education Answer Date Recorded Are you interested in more education? Not on cloton e 10/21/2022 Are you concerned about learning? [...] It is not the complete legal health record.[facility]
== END 2025-05-07 14:14 | disposition home or self-care (01) ==
LOC: HO.HGI 13:15
PROVIDERS: PCP Internal Medicine; Visit Provider Internal Medicine Gastroenterology
DX: I85.00 Esophageal varices without bleeding (principal); Z95.828 Presence of other vascular implants and grafts; K74.60 Unspecified cirrhosis of liver; R18.8 Other ascites; K76.81 Hepatopulmonary syndrome
CPT/HCPCS: 99214; G2211

== ENCOUNTER → 2025-05-07 13:14 | Outpatient (BNVA) | payer OTHER, SELFPAY | PROVIDERS: PCP Internal Medicine; Visit Provider Internal Medicine Gastroenterology | DX: I85.00 Esophageal varices without bleeding (principal); K74.60 Unspecified cirrhosis of liver; R18.8 Other ascites; K76.81 Hepatopulmonary syndrome; Z95.828 Presence of other vascular implants and grafts | CPT/HCPCS: 99212 ==

== ENCOUNTER 2025-05-13 13:31 | Outpatient (REF) | payer OTHER, SELFPAY ==
[2025-05-13 14:00] LABS: Hematocrit 39.3 % (42.0-52.0); Hemoglobin 13.5 g/dl (14.0-18.0); Mean Corpuscular HGB Conc 34.4 g/dl (31.0-36.0); Mean Corpuscular Hemoglobin 34.0 pg (27.0-33.0); Mean Corpuscular Volume 99.0 fL (80.0-98.0); NRBC Abs Auto 0.000 X10*3/uL (0.0-0.012); NRBC Pct Auto 0.0 /100WBC (0.0-0.2); Platelet Count 136 X10*3/uL (160-400); Red Blood Count 3.97 X10*6/uL (4.60-5.80); White Blood Count 4.5 X10*3/uL (4.8-10.8)
[2025-05-13 14:05] LABS: INTERNATIONAL NORM RATIO 1.2 (0.9-1.1); Prothrombin Time 15.1 SEC (11.2-13.5)
[2025-05-13 15:15] LABS: Alanine Aminotransferase 26 U/L (0-40); Albumin Level 3.0 g/dL (3.5-5.0); Alkaline Phosphatase 281 U/L (39-117); Anion Gap 12 (12-20); Aspartate Amino Transferase 139 U/L (5-37); Blood Urea Nitrogen 5 mg/dL (9-16); Calcium 8.5 mg/dL (8.4-10.2); Carbon Dioxide 29 mmol/L (22-29); Chloride 102 mmol/L (96-108); Estimated Glomerular Filt Rate > 60; Potassium 3.9 mmol/L (3.3-5.1); Sodium 139 mmol/L (135-145); Total Protein 7.5 g/dL (6.5-8.0)
--- OUTSIDE RECORDS SUMMARY | 2025-05-14 01:33 | XMS_ITS | Data Portability ---
Author Organization [employer] Address [address] [place] [address] Care Team Providers Care Product/Industry Consultant Name Role Phone HIM CCA OTHER VALORIE GARCÍA Primary Care Provider [phone] Assessment Encounter Date Assessment Date Assessment LastModified by Organization Details LastModified Time 12/05/2023 12/05/2023 I have reviewed and agree with the assessment and plan as documented by the occupational therapy assist. I provided real time medical direction for this encounter and was immediately available to provide additional phone based assistance as needed. History as noted by occupational therapy assist. Pt with recent diagnosis of R knee septic arthritis, had knee arthroscopy and wash out performed at [facility] on November 29 and was discharged [...] pt that he needs to return to [facility] today to have orthopedics evaluate his leg. I stress the importance of having his leg evaluated urgently today to rule out worsening infection. We offer to arrange for an ambulance to take him to the ED, but pt prefers to have his sister take him to the [facility] ED today for evaluation. He states he will go there in about an hour. I have called an expect to the sales systems engineer [place] [facility] [place] btils Not available 12/05/2023 11:27:29 Plan [...] Updated DateTime 4 98 % 98 % 277029. 04 g 18 /min 98.2 [degF] 101 /min 104/64 mm[Hg] Not Available [facility] - production 4 11:02:34 Social History None recorded. Functional Status None recorded. Mental Status None recorded. Family History Nothing Reported. Medical History No medical history recorded. Past Encounters Encounter ID Performer Location Encounter Start Date Encounter Closed Date Diagnosis/Indication Diagnosis SNOMED-CT Code Diagnosis ICD10 Code Diagnosis IMO Codes Diagnosis Note [id number] Amadou Baez MD Main - [facility] [address] [place] [phone] 12/05/2023 11:02:27 12/06/2023 10:03:23 Cellulitis of right lower limb [id number] 4126112 L03.115 Health Concerns Section Related Observation LastModified by Organization Detai ls LastModified Time None Recorded Concern Status LastModified by Organization Details LastModified Time None Recorded Advance Directives Directive None Recorded Payers Insurance Date Sequence Insurance Name Policy Number Policy Booth Covered Member ID Booth Member ID Guarantor Name 12/05/2023 1 [facility] - DOS ON OR AFTER 2022 - DUAL ELIGIBLE - CUSTODIAL OPTIONS AND ONE CARE (MEDICARE REPLACEMENT/ADV ANTAGE - HMO) Akash Barboza [id number] Akash Barboza Notes Date Note Type Note Provider Name and Address Organization Details Recorded Time 12/05/2023 text/html ROS as noted in the HPI This was a supervised home visit with occupational therapy assist Deon Diaz. CRC Nurse Triage Notes (Claudia [...] .................. .................. .................. .................. .................. .................. ............... Helicopter Repairer Note From Deon Diaz: Pt co pain [...] sts his sister will take him [place] [facility] Pt education on the risks of not going to ER. .................. .................. .................. .................. .................. .................. .................. ............... Disposition: Fulfilled Amadou Baez MD [address] [facility],[address], [place], [address], [place]AR ROTH 12/05/2023 11:58:49
--- OUTSIDE RECORDS SUMMARY | 2025-05-14 01:33 | XMS_ITS | Clinical Summary ---
Author Organization [facility] Address [address] [address] Care Team Providers Care Sleep Medicine Physician Name Role Phone Unavailable Primary Care Provider [...] 018 Influenza Vaccine (#1) 2025 [place]
--- OUTSIDE RECORDS SUMMARY | 2025-05-14 01:33 | XMS_ITS | Clinical Summary ---
Author Organization [facility] Address [address] [facility] [address] [place] [address] Phone Care Team Providers Care Manager Of Tires Sales Name Role Phone Unavailable Primary Care Provider [...] It is not the complete legal health record.[facility]
== END 2025-05-13 13:32 | disposition home or self-care (01) ==
LOC: HO.LAB 13:31
PROVIDERS: PCP Internal Medicine; Visit Provider Internal Medicine Gastroenterology
DX: R18.8 Other ascites (principal); K74.60 Unspecified cirrhosis of liver
CPT/HCPCS: 36415; 80053; 85027; 85610

== ENCOUNTER 2025-05-23 07:54 | Outpatient (REF) | payer OTHER, SELFPAY ==
--- OUTSIDE RECORDS SUMMARY | 2025-05-23 07:58 | XMS_ITS | Clinical Summary ---
Author Organization [facility] Address [address] [address] Care Team Providers Care Property Claim Rep Name Role Phone Unavailable Primary Care Provider [...] 018 Influenza Vaccine (#1) 2025 Insurance [place]
--- OUTSIDE RECORDS SUMMARY | 2025-05-23 07:58 | XMS_ITS | Clinical Summary ---
Author Organization [facility] Address [address] [facility] [address] [place] [address] Phone Care Team Providers Care Hospice Music Therapist Name Role Phone Unavailable Primary Care Provider [...] It is not the complete legal health record.[facility]
--- OUTSIDE RECORDS SUMMARY | 2025-05-23 07:58 | XMS_ITS | Data Portability ---
Author Organization [employer] Address [address] [place] [address] Care Team Providers Care Wood Block Artist Name Role Phone HIM CCA OTHER VALORIE GARCÍA Primary Care Provider Assessment Encounter Date Assessment Date Assessment LastModified by Organization Details LastModified Time 12/05/2023 12/05/2023 I have reviewed and agree with the assessment and plan as documented by the electrical maintenance engineer. I provided real time medical direction for this encounter and was immediately available to provide additional phone based assistance as needed. History as noted by electrical maintenance engineer. Pt with recent diagnosis of R knee septic arthritis, had knee arthroscopy and wash out performed at [facility] on November 29 and was discharged [...] pt that he needs to return to [facility] today to have orthopedics evaluate his leg. I stress the importance of having his leg evaluated urgently today to rule out worsening infection. We offer to arrange for an ambulance to take him to the ED, but pt prefers to have his sister take him to the [facility] ED today for evaluation. He states he will go there in about an hour. I have called an expect to the heel seam rubber at the [facility] ED. btils Not available 12/05/2023 [...] t Available Vitals Date Recorded Oxygen saturation Body weight Respiratory rate Body temperature Heart rate Systolic And Diastolic Provider Name and Address Organization Details Last Updated DateTime 4 98 % 362180. 04 g 18 /min 98.2 [degF] 101 /min 104/64 mm[Hg] Not Available [facility] - production 4 11:02:34 Social History None recorded. Functional Status None recorded. Mental Status None recorded. Family History Nothing Reported. Medical History No medical history recorded. Past Encounters Encounter ID Performer Location Encounter Start Date Encounter Closed Date Diagnosis/Indication Diagnosis SNOMED-CT Code Diagnosis ICD10 Code Diagnosis IMO Codes Diagnosis Note [id number] Amadou Baez MD Main - [facility] [address] [place] [phone] 0 12/05/2023 11:02:27 12/06/2023 10:03:23 Cellulitis of right lower limb [id number] L03.115 Health Concerns Section Related Observation LastModified by Organization Detai ls LastModified Time None Recorded Concern Status LastModified by Organization Details LastModified Time None Recorded Advance Directives Directive None Recorded Payers Insurance Date Sequence Insurance Name Policy Number Policy Booth Covered Member ID Booth Member ID Guarantor Name 12/05/[address] [facility] [place] [place] - DOS ON OR AFTER 2022 - DUAL ELIGIBLE - [employer] OPTIONS AND ONE CARE (MEDICARE REPLACEMENT/ADV ANTAGE - HMO) Akash Barboza [id number] Akash Barboza Notes Date Note Type Note Provider Name and Address Organization Details Recorded Time 12/05/2023 text/html ROS as noted in the HPI This was a supervised home visit with electrical maintenance engineer Deon Diaz. CRC Nurse Triage Notes (Claudia [...] .................. .................. .................. .................. .................. .................. ............... Cop Breaker Note From Deon Diaz: Pt co pain and redness in right leg after surgery this past Sunday. Pt on antibiotics and pain management already. Pt denies fever NVD CP sob. Pt sts redness and pain has increased since release. Baseline vitals assessed, area warm to touch ..afebrile. [facility] contacted and advised pt to go to ER today. Pt declined ambulance and sts his sister will take him to [facility]. Pt education on the risks of not going to ER. .................. .................. .................. .................. .................. .................. .................. ............... Disposition: Fulfilled Amadou Baez MD [address] [facility],[address], [place], [address], [place] NEGAR ROTH 12/05/2023 11:58:49
--- OUTSIDE RECORDS SUMMARY | 2025-05-23 07:58 | XMS_ITS | Clinical Summary ---
Author Organization [facility] Address [address] [place] [address] Care Team Providers Care Roll Grinder Operator Name Role Phone Martin Avilez MD Primary Care Provider [phone] Medical History Medical History Date Comments Hypertension [...] age to complete this topic Care Teams Roll Grinder Operator Relationship Specialty Start Date End Date Martin Avilez MD [address] [facility] [address] [place], [place] PCP - General 02/25/18
[2025-05-23 08:09] LABS: MANUAL DIFF FLAG NO
[2025-05-23 09:55] LABS: Hematocrit 41.0 % (42.0-52.0); Hemoglobin 14.6 g/dl (14.0-18.0); Imm Gran Abs Auto 0.01 X10*3/uL (0.00-0.03); Imm Gran Pct Auto 0.2 % (0.0-0.4); Lymphocytes Absolute Auto 0.8 X10*3/uL (1.2-4.9); Mean Corpuscular HGB Conc 35.6 g/dl (31.0-36.0); Mean Corpuscular Hemoglobin 34.7 pg (27.0-33.0); Mean Corpuscular Volume 97.4 fL (80.0-98.0); NRBC Abs Auto 0.000 X10*3/uL (0.0-0.012); NRBC Pct Auto 0.0 /100WBC (0.0-0.2); Platelet Count 155 X10*3/uL (160-400); Red Blood Count 4.21 X10*6/uL (4.60-5.80); White Blood Count 4.4 X10*3/uL (4.8-10.8)
[2025-05-23 09:59] LABS: INTERNATIONAL NORM RATIO 1.2 (0.9-1.1); Prothrombin Time 14.3 SEC (11.2-13.5)
[2025-05-23 10:43] LABS: Alanine Aminotransferase 27 U/L (0-40); Albumin Level 3.0 g/dL (3.5-5.0); Alkaline Phosphatase 334 U/L (39-117); Anion Gap 13 (12-20); Aspartate Amino Transferase 144 U/L (5-37); Blood Urea Nitrogen 4 mg/dL (9-16); Calcium 8.2 mg/dL (8.4-10.2); Carbon Dioxide 26 mmol/L (22-29); Chloride 102 mmol/L (96-108); Estimated Glomerular Filt Rate > 60; Lipase 53 U/L (8-78); Potassium 3.3 mmol/L (3.3-5.1); Sodium 138 mmol/L (135-145); Total Protein 7.5 g/dL (6.5-8.0)
[2025-05-23 11:12] LABS: Ferritin 720 ng/mL (20-250)
== END 2025-05-23 07:55 | disposition home or self-care (01) ==
LOC: HO.LAB 07:54
PROVIDERS: PCP Internal Medicine; Visit Provider Internal Medicine Gastroenterology
DX: K70.31 Alcoholic cirrhosis of liver with ascites (principal); K75.81 Nonalcoholic steatohepatitis (NASH)
CPT/HCPCS: 36415; 80053; 82728; 83690; 84630; 85025; 85610; 86140

== ENCOUNTER 2025-05-29 10:05 | Emergency (ER) | payer OTHER, SELFPAY ==
--- NOTE | ~2025-05-29 | CT_ITS ---
EXAMINATION: CT ABDOMEN PELVIS WITH IV CONTRAST HISTORY: c/f SBO. No BM 1wk. Urinary retention COMPARISON: Comparison is made with the prior examination dated 11/07/2024. TECHNIQUE: CT scan of the abdomen and pelvis was performed following administration of 85 mL Omnipaque 350 using standard departmental protocol. Coronal and sagittal reformatted images were generated and reviewed. The patient received oral contrast material. This CT exam was performed with one or more of the following dose reduction techniques: automated exposure control, adjustment of the mA and/or kV according to patient size, use of iterative reconstruction technique. DLP: 804 mGy-cm FINDINGS: LOWER CHEST: Again seen are rounded masses at the posterior aspects of both lung bases which demonstrate a whorled appearance, suggestive of rounded atelectasis. There are trace associated lateral pleural effusions. CARDIOVASCULATURE: The heart is normal in size. There is no pericardial effusion. LIVER: The liver again demonstrates a nodular contour consistent with cirrhosis. No liver mass is identified. A TIPS shunt is again noted. GALLBLADDER / BILE DUCTS: The gallbladder is unremarkable. There is no intra or extrahepatic biliary ductal dilatation. SPLEEN: The spleen is normal in size. No focal splenic lesion is identified. PANCREAS: The pancreas is unremarkable in appearance. ADRENAL GLANDS: Within normal limits. KIDNEYS/RETROPERITONEUM: No renal calculi are identified. There is no hydronephrosis. There is a probable 10 mm right renal cyst. LYMPH NODES: No abdominal or pelvic lymphadenopathy. VASCULATURE: The abdominal aorta demonstrates atherosclerotic calcification, but is normal in caliber. Multiple coils are again seen at the level of the celiac axis. MESENTERY/PERITONEUM: There is a moderate amount of ascites in the abdomen and pelvis. No masses. There is no free intraperitoneal gas. STOMACH: The stomach is unremarkable. SMALL BOWEL: No significant small bowel dilatation. No evidence of small bowel obstruction. COLON: The patient is status post ascending colectomy. Oral contrast is seen throughout the colon. APPENDIX: The appendix is surgically absent. URINARY BLADDER/PELVIC ORGANS: The urinary bladder is collapsed with a Harding catheter. The prostate is normal in size. BONES / SOFT TISSUES: No suspicious bony or soft tissue abnormalities. CT/CT abdomen pelvis w IV con IMPRESSION: 1. No evidence of small bowel obstruction. 2. Cirrhosis of the liver with a moderate amount of abdominal ascites. Electronically signed by: Cash Davidson MD 05/29/2025 04:02 PM SHERRY SEGOVIA
[2025-05-29 10:23] VITALS: BP 140/85; PULSE 101; RESP 18; TEMP 36.7; O2SAT 97; BMI 26.5
--- NOTE | 2025-05-29 10:23 | ED.GENADULT ---
HPI - General Adult General Chief complaint: Abdominal Pain Stated complaint: General Medical Time Seen by Provider: 05/29/25 12:23 Source: patient, RN notes reviewed and old records reviewed Mode of arrival: ambulatory History of Present Illness ED Provider: Miya Sharma PA-C HPI narrative: 59-year-old male with a past medical history alcoholic cirrhosis, esophageal varices, pancreatic cancer, PE on apixaban, pericardial effusion, pleural effusion, presenting to the ED complaining of constipation without BM in 9 days, and urinary retention since yesterday. Admits he is intermittently passing gas. Reports abdominal discomfort, nausea, and vomiting. Reports decreased p.o. intake. denies fever, chills Related Data Home Medications ?Medication ?Instructions ?Recorded ?Confirmed folic acid 1 mg tablet 1 mg PO DAILY 06/10/21 05/07/25 thiamine HCl (vitamin B1) 100 mg 100 mg PO DAILY 06/10/21 05/07/25 tablet hydroxyzine pamoate 25 mg capsule 50 mg PO DAILY PRN itching 01/26/22 05/07/25 lorazepam 0.5 mg tablet 0.5 mg PO DAILY PRN anxiety attack 07/13/22 05/07/25 albuterol sulfate 90 mcg/actuation 2 puff inhalation Q6H PRN 04/18/24 05/07/25 aerosol inhaler Shortness Of Breath Or Wheezing gabapentin 300 mg capsule 300 mg PO DAILY 06/03/24 05/07/25 spironolactone 100 mg tablet 100 mg PO BID 07/03/24 05/07/25 ropinirole 0.25 mg tablet 0.25 - 0.5 mg PO DAILY PRN 07/09/24 05/07/25 restless legs oxycodone-acetaminophen 10 mg-325 tab PO PRN Pain, Moderate 08/28/24 05/07/25 mg tablet paroxetine HCl 20 mg tablet 30 mg PO DAILY 05/07/25 05/07/25 Previous Rx's ?Medication ?Instructions ?Recorded blood sugar diagnostic (FreeStyle #100 ea 10/30/22 Lite Strips) blood-glucose meter (FreeStyle #1 ea 10/30/22 Lite Meter kit) lancets #200 ea 10/30/22 ondansetron 4 mg disintegrating 4 mg PO Q8H PRN nausea and 10/30/22 tablet vomiting #14 tabs pen needle, diabetic 31 gauge x #1,200 ea 10/31/22 5/16 (Pen Needle) walker #1 ea 12/04/23 ferrous sulfate 324 mg (65 mg 324 mg PO DAILY 90 days #90 tabs 04/28/24 iron) tablet,delayed release lactulose 20 gram/30 mL oral 20 g (30 mL) PO TID-QID #946 mL 07/11/24 solution furosemide 40 mg tablet (Lasix) 40 mg PO DAILY 3 days #3 tabs 01/23/25 omeprazole 40 mg capsule,delayed 40 mg PO DAILY #30 caps 04/22/25 release sucralfate 100 mg/mL oral 10 ml PO BID #1,000 mL 05/23/25 suspension carvedilol 6.25 mg tablet 6.25 mg PO BID 90 days #180 tabs 05/28/25 rifaximin 550 mg tablet (Xifaxan) 550 mg PO BID #60 tabs 05/28/25 cefuroxime axetil 250 mg tablet 250 mg PO BID 7 days #14 tabs 05/29/25 Allergies Allergy/AdvReac Type Severity Reaction Status Date / Time No Known Drug Allergies (NO Allergy Mild NONE Verified 05/29/25 10:25 KNOWN DRUG ALLERGIES) Review of Systems Review of Systems: Yes all other systems are reviewed and are negative Constitutional: Constitutional: Reports as per [facility] Past Medical History Attestation statement: The following information was validated with the patient. Source: old records reviewed Medical History Pulmonary nodule Esophageal varices Strangulated umbilical hernia (07/11/24) Septic arthritis Hx of transfusion of packed red blood cells Umbilical hernia Anxiety Pulmonary nodule 1 cm or greater in diameter Pleuritic chest pain Pulmonary embolism, bilateral Diabetes Alcohol use disorder, moderate, dependence Recurrent left pleural effusion Pleural effusion Pericardial effusion Tachycardia Dyspnea Hydropneumothorax Pleural effusion on right Decompensation of cirrhosis of liver Cirrhosis GERD (gastroesophageal reflux disease) Chronic abdominal pain Gout Peripheral neuropathy Alcoholism Elevated LFTs Surgical History History of abdominal paracentesis History of carpal tunnel surgery of left wrist S/P right knee arthroscopy Hx of esophagogastroduodenoscopy History of thoracentesis H/O colonoscopy H/O cervical spine surgery H/O hemicolectomy Family History Family History Mother Cancer Sister Cancer Social History Social History Household Members: Other Household Members Other:: roomate Housing: Apartment Are you a primary overnight caregiver to a significant other at home: No Do you presently have visiting nurse or other home services: No Alcohol intake: current Alcohol intake frequency: a few times a week Alcohol type: beer Comment: counts correct Patient Tobacco Use Status: Former Tobacco user Tobacco use type: Smokeless Tobacco Years Smoked: 35 e-Cigarette/Vaping Use: Former Use Second Hand Smoke Exposure: No Substance Use Type: Marijuana Advance Directives: Yes Advance Directives on File: Yes Advance Directives Date on File: 12/03/23 Do you have a plan to hurt others: No Plan service: No Current occupational status: unemployed Physical Exam ED Vital Signs: Vital Signs - 24 hr 05/29/25 10:23 05/29/25 12:54 05/29/25 14:59 Temperature 98.1 F 97.9 F Pulse Rate 101 H 97 100 Respiratory Rate 18 17 16 Blood Pressure 140/85 H 136/87 150/89 H Pulse Oximetry 97 98 98 Oxygen Delivery Method Room Air Room Air Room Air 05/29/25 15:59 Temperature 98.6 F Pulse Rate 96 Respiratory Rate 14 Blood Pressure 141/85 H Pulse Oximetry 98 Oxygen Delivery Method Room Air BMI result Body Mass Index 26.5 Const General: cooperative, healthy appearing and no acute distress Orientation/consciousness: patient oriented x3 Limitations: no limitations HENMT Head: Yes normal to inspection and Yes atraumatic Ears: hearing grossly normal bilaterally General nose exam: Normal external nose present Face and sinus: Yes normal facial exam Eyes General: appearance normal, both eyes and all related structures EOM: EOMs intact bilaterally Neck Neck: Yes normal visual inspection and Yes no meningeal signs Resp Effort & Inspection: normal respiratory effort and no respiratory distress Auscultation: clear to auscultation bilaterally Cardio Rate: regular rate Heart sounds: S1 normal heart sound present and S2 normal heart sound present GI Inspection: Yes normal to inspection Palpation (GI): Soft to palpation, nontender, no guarding and not rigid General: Yes no CVA tenderness Back/Spine/Pelvis Back: no CVA tenderness Skin Rashes: no rashes Wounds: no wounds Neuro General: patient oriented x3, tone normal and no meningeal signs Cranial nerves: Yes CN's II-XII intact bilaterally Gait exam (Neuro): Normal gait present Extrem General: Yes normal to inspection Course Course Course Narrative: Rapid medical examination performed in triage by Tiera Lizama PA-C: Patient is a 59 year old assigned male at presenting to the emergency department with constipation. Detailed physical exam and review of systems are deferred to the roof truss machine tender. Labs ordered. Patient placed back in the waiting room pending room availability and results. -1357-- chronically leukopenic. H&H at patient's baseline potassium mildly low at 3.2 > p.o. repletion ordered - magnesium low at 1.4 > IV repletion ordered - bilirubin and AST chronically elevated. CT abdomen pelvis w IV con IMPRESSION: 1. No evidence of small bowel obstruction. 2. Cirrhosis of the liver with a moderate amount of abdominal ascites. > case discussed with general surgery Dr. Wei > advised medicine admit with GI eval > will discuss case with hospitalist -1700--on re-evaluation patient has had 2 BMs in the ED > reports symptomatic improvement after BMs. Would like to be discharged home. Plan to DC with close outpatient follow-up -UA infected Results discussed with patient including worrisome signs and symptoms and strict return precautions, and when to return to the emergency department. They verbalized understanding and feel safe for discharge at this time. -449--upon attempted discharge patient now refusing to be discharged with Harding catheter and demanding that we remove it or else he will take it out himself. Patient has been verbalized of risks. We will remove catheter so patient does not cause any harm to himself. We will give patient water and attempted to trial to void > ED care transferred to [facility] Etienne pending trial to void Reevaluation(s) Reevaluation #1: 1862: Provider: Jaimie Brooks PA-C: rec'd this patient in sign out pending voiding trial. Briefly 59 y/o M with recent constipation and retention labs and imaging supportive of UTI likely secondary to constipation and BPH. Harding placed however patient declined it to be indwelling. As long as urine can pass I do feel patient can be safely d/c to home. Plan already in place for cephalosporin and urology f/u. Will monitor. 1922: Patient passed approx 100cc of urine is requesting to go home. This was ill advised but as he is stable and demonstrated his understanding of returning for retention. He will be discharged to home. Medications Administered Discontinued Medications Generic Name Dose Route Start Last Admin Trade Name Freq PRN Reason Stop Dose Admin Diatrizoate Meglum/Diatrizoate Sod 30 ml 05/29/25 15:44 05/29/25 15:44 Diatrizoate Meglumine, Sodium 30 Ml Solution PO 05/29/25 15:45 30 ml ONCE ONE Administration Sodium Chloride 500 mls @ 999 mls/hr 05/29/25 12:45 05/29/25 14:48 Ns IV 05/29/25 13:15 Infused .Q31M RYAN Infusion Magnesium Sulfate 2 gm in 50 mls @ 25 mls/hr 05/29/25 13:35 05/29/25 17:13 Magnesium Sulfate/H2o IV 05/29/25 15:34 Infused ONCE ONE Infusion Sodium Chloride 500 mls @ 999 mls/hr 05/29/25 16:30 05/29/25 18:48 Ns IV 05/29/25 17:00 Infused .Q31M RYAN Infusion Iohexol 100 ml 05/29/25 15:39 05/29/25 15:43 Iohexol 350 Mg/Ml 100 Ml Infus..Btl IV 05/29/25 15:40 85 ml ONCE ONE Administration Lidocaine HCl 10 ml 05/29/25 13:23 05/29/25 14:34 Lidocaine Hcl 2 % Urojet 10 Ml Jel.Pf.Ashley TOPICAL 05/29/25 13:24 10 ml ONCE ONE Administration Polyethylene Glycol 17 gm 05/29/25 16:25 05/29/25 18:46 Polyethylene Glycol 3350 17 Gm Powd.Pack PO 05/29/25 16:26 Not Given ONCE ONE Potassium Chloride 40 meq 05/29/25 13:58 05/29/25 14:44 Potassium Chloride Packet 20 Meq Packet PO 05/29/25 13:59 40 meq ONCE ONE Administration Medical Decision Making Medical Decision Making MDM Narrative: 59-year-old male with a past medical history alcoholic cirrhosis, esophageal varices, pancreatic cancer, PE on apixaban, pericardial effusion, pleural effusion, presenting to the ED complaining of constipation without BM in 9 days, and urinary retention since yesterday. on exam initially mildly tachycardic, NAD, nontoxic appearing, abdomen is soft & nontender, no rebound or guarding, no overt ascites. Concern for SBO vs constipation and urinary retention. Rule out infectious etiology. Low suspicion for SBP. Lower suspicion for acute appendicitis / diverticulitis plan: Labs, UA, CT AP, anticipated admission, bladder scan Please refer to course for remaining clinical decision making, interpretation of labs/imaging results, and discussions with consultants and/or family members. Differential Diagnosis Differential Diagnoses: The differential diagnosis associated with the presentation includes As above Admission/Observation Consideration of admission/observation: Escalation of care including admission/observation considered Consult Healthcare Provider Management of the patient was discussed with: Hospitalist and Marine Engineering Consultant Lab Data MDM Lab Attestation statement: I reviewed the patient's lab results. 05/29/25 10:52 05/29/25 10:52 Labs: Lab Results 05/29/25 05/29/25 Range/Units 10:52 16:26 WBC 4.6 L (4.8-10.8) X10*3/uL RBC 4.02 L (4.60-5.80) X10*6/uL Hgb 13.9 L (14.0-18.0) g/dl Hct 39.8 L (42.0-52.0) % MCV 99.0 H (80.0-98.0) fL MCH 34.6 H (27.0-33.0) pg MCHC 34.9 (31.0-36.0) g/dl RDW 13.1 (11.0-16.0) % Plt Count 141 L (160-400) X10*3/uL MPV 8.3 L (9.4-12.4) fL Immature Gran % (Auto) 0.4 (0.0-0.4) % Neut % (Auto) 61.5 (45-73) % Lymph % (Auto) 18.4 L (20-40) % [place] % (Auto) 14.5 H (2-11) % Eos % (Auto) 2.6 (0-4) % Baso % (Auto) 2.6 H (0-2) % Lymph # (Auto) 0.9 L (1.2-4.9) X10*3/uL [place] # (Auto) 0.7 (0.1-1.2) X10*3/uL Eos # (Auto) 0.1 (0.0-0.4) X10*3/uL Baso # (Auto) 0.1 (0.0-0.2) X10*3/uL Abs Immat Gran (auto) 0.02 (0.00-0.03) X10*3/uL Absolute Neuts (auto) 2.9 (2.0-8.3) x10*3/uL Absolute Nucleated RBC 0.000 (0.0-0.012) X10*3/uL Nucleated RBC % (auto) 0.0 (0.0-0.2) /100WBC Sodium 136 (135-145) mmol/L Potassium 3.2 L (3.3-5.1) mmol/L Chloride 99 (96-108) mmol/L Carbon Dioxide 27 (22-29) mmol/L Anion Gap 13 (12-20) BUN 6 L (9-16) mg/dL Creatinine 0.70 (0.5-1.4) mg/dL Estim Creat Clear Calc 146.7 Estimated GFR > 60 Random Glucose 129 H (60-115) mg/dL Calcium 8.6 (8.4-10.2) mg/dL Magnesium 1.4 L* (1.6-2.6) mg/dL Total Bilirubin 5.0 H (0.0-1.0) mg/dL AST 118 H (5-37) U/L ALT 24 (0-40) U/L Alkaline Phosphatase 299 H (39-117) U/L Total Protein 7.6 (6.5-8.0) g/dL Albumin 3.1 L (3.5-5.0) g/dL Lipase 70 (8-78) U/L Urine Color DK YELLOW Urine Appearance Clear Urine pH 6.5 (5.0-9.0) Ur Specific [place] 1.025 (1.005-1.025) Urine Protein 100 (2+) H (Neg-Trace) mg/dL Urine Glucose (UA) 100 H (Negative) mg/dL Urine Ketones 15 (Negative) mg/dL Urine Blood Large (3+) H (Negative) Urine Nitrite Positive H (Negative) Ur Leukocyte Esterase Trace H (Negative) Urine RBC 3-5 H (0-2) /HPF Urine WBC 0-5 (0-5) /HPF Ur Squamous Epith Cells 6-10 (0-2) /HPF Urine Bacteria None Seen (None Seen) Hyaline Casts 3-5 (0-2) /LPF Independent Interpretation I performed an independent interpretation of an: CT Scan Radiology Impression Discussion of test interpretation with radiology: I have reviewed the radiologist's reading. External Record Review External record reviewed: Inpatient record, Office record, Outpatient record, Prior outpatient labs, Prior outpatient radiology, Primary care record and Outside ED record Tests considered The following testing was considered but not selected: As above Prescription Management I considered prescription management with: Pain Medication and Other Chronic Conditions Patient?s care impacted by: Other Social Determinants Patient?s care significantly limited by Social Determinants of Health including: Alcoholism and drug addiction in family and Other Social Determinant of Health Critical Care Time Critical Care Time Critical Care Time: Yes Total Critical Care Time: 40 Attestation: I have personally provided critical care time exclusive of time spent on separately billable procedures. Time includes review of lab data, radiology results, discussion with consultants, and monitoring for potential decompensation. Intervention performed as documented. Discharge Plan Discharge Clinical Impression: Acute UTI, Acute urinary retention, Abdominal ascites, Constipation Patient Disposition: Home, Self-Care Instructions: Constipation (DC), Urinary Retention in Men (ED), Urinary Tract Infection in Men (DC) Additional Instructions: You have a urinary tract infection. Ceftin as an antibiotic please take as prescribed Your CAT scan does not show a bowel obstruction You are in urinary retention. Please follow up with Urology outpatient in 1 week Take stool softeners/MiraLax at home as needed for constipation If you start having BMs, or Passing gas or have increasing abdominal pain, nausea/vomiting return to the ED Prescriptions: New cefuroxime axetil 250 mg tablet 250 mg PO BID 7 Days Qty: 14 0RF No Action ferrous sulfate 324 mg (65 mg iron) tablet,delayed release (DR/EC) 324 mg PO DAILY 90 Days Qty: 90 1RF furosemide [Lasix] 40 mg tablet 40 mg PO DAILY 3 Days Qty: 3 0RF omeprazole 40 mg capsule,delayed release(DR/EC) 40 mg PO DAILY Qty: 30 3RF sucralfate 100 mg/mL suspension 10 ml PO BID Qty: 1000 0RF Xifaxan 550 mg tablet 550 mg PO BID Qty: 60 0RF carvedilol 6.25 mg tablet 6.25 mg PO BID 90 Days Qty: 180 1RF (DME) walker Misc See Rx Instructions .Route Qty: 1 0RF Rx Instructions: As directed gabapentin 300 mg capsule 300 mg PO DAILY ondansetron 4 mg tablet,disintegrating 4 mg PO Q8H PRN (Reason: nausea and vomiting) Qty: 14 0RF (DME) FreeStyle Lite Strips Strip See Rx Instructions .ROUTE .MEDSUPPLY Qty: 100 2RF Rx Instructions: QID (DME) lancets Misc See Rx Instructions .ROUTE .MEDSUPPLY Qty: 200 2RF Rx Instructions: 4 times daily (DME) blood-glucose meter [FreeStyle Lite Meter] Kit See Rx Instructions .ROUTE .MEDSUPPLY Qty: 1 0RF Rx Instructions: As directed (DME) pen needle, diabetic [Pen Needle] 31 gauge x 5/16 needle See Rx Instructions .ROUTE .MEDSUPPLY Qty: 1200 0RF Rx Instructions: As directed albuterol sulfate 90 mcg/actuation Hfa Aerosol Inhaler 2 puff INHALATION Q6H PRN (Reason: Shortness Of Breath Or Wheezing) spironolactone 100 mg tablet 100 mg PO BID ropinirole 0.25 mg tablet 0.25 - 0.5 mg PO DAILY PRN (Reason: restless legs) lactulose 20 gram/30 mL Solution 20 g PO TID-QID Qty: 946 10RF paroxetine HCl 20 mg tablet 30 mg PO DAILY hydroxyzine pamoate 25 mg capsule 50 mg PO DAILY PRN (Reason: itching) Rx Instructions: ITCHING/ANXIETY folic acid 1 mg tablet 1 mg PO DAILY thiamine HCl (vitamin B1) 100 mg tablet 100 mg PO DAILY lorazepam 0.5 mg tablet 0.5 mg PO DAILY PRN (Reason: anxiety attack) oxycodone-acetaminophen 10-325 mg tablet PO PRN (Reason: Pain, Moderate) Referrals: [facility] [Provider Group, Gastroenterology] - 1 week [facility] [Provider Group, Urology] - 1 week Martin Avilez MD [Primary Care Provider, Internal Medicine] - 2 days Print Language: Israeli
[2025-05-29 10:57] LABS: MANUAL DIFF FLAG NO
[2025-05-29 10:59] LABS: Hematocrit 39.8 % (42.0-52.0); Hemoglobin 13.9 g/dl (14.0-18.0); Imm Gran Abs Auto 0.02 X10*3/uL (0.00-0.03); Imm Gran Pct Auto 0.4 % (0.0-0.4); Lymphocytes Absolute Auto 0.9 X10*3/uL (1.2-4.9); Mean Corpuscular HGB Conc 34.9 g/dl (31.0-36.0); Mean Corpuscular Hemoglobin 34.6 pg (27.0-33.0); Mean Corpuscular Volume 99.0 fL (80.0-98.0); NRBC Abs Auto 0.000 X10*3/uL (0.0-0.012); NRBC Pct Auto 0.0 /100WBC (0.0-0.2); Platelet Count 141 X10*3/uL (160-400); Red Blood Count 4.02 X10*6/uL (4.60-5.80); White Blood Count 4.6 X10*3/uL (4.8-10.8)
[2025-05-29 11:25] LABS: Alanine Aminotransferase 24 U/L (0-40); Albumin Level 3.1 g/dL (3.5-5.0); Alkaline Phosphatase 299 U/L (39-117); Anion Gap 13 (12-20); Aspartate Amino Transferase 118 U/L (5-37); Blood Urea Nitrogen 6 mg/dL (9-16); Calcium 8.6 mg/dL (8.4-10.2); Carbon Dioxide 27 mmol/L (22-29); Chloride 99 mmol/L (96-108); Creatinine Clr Calc Pharmacy 146.7; Estimated Glomerular Filt Rate > 60; Potassium 3.2 mmol/L (3.3-5.1); Sodium 136 mmol/L (135-145); Total Protein 7.6 g/dL (6.5-8.0)
[2025-05-29 12:54] VITALS: BP 136/87; PULSE 97; RESP 17; O2SAT 98
--- OUTSIDE RECORDS SUMMARY | 2025-05-29 13:27 | XMS_ITS | Clinical Summary ---
Author Organization [facility] Address [address] [place] [id number] Phone Care Team Providers Care Agronomy Advisor Name Role Phone Unavailable Primary Care Provider [...] It is not the complete legal health record.[facility]
--- OUTSIDE RECORDS SUMMARY | 2025-05-29 13:27 | XMS_ITS | Continuity of Care Document ---
Author Name [facility], Medical Address [address] [place] [id number] Organization Unknown Address [address] [place] [id number] Medications No known medications Problems No known problems
--- OUTSIDE RECORDS SUMMARY | 2025-05-29 13:27 | XMS_ITS | Clinical Summary ---
Author Organization [facility] Address [address] [place] [address] Care Team Providers Care Content Development Manager Name Role Phone Martin Avilez MD Primary Care Provider [phone] Medical History Medical History Date Comments Hypertension [...] age to complete this topic Care Teams Content Development Manager Relationship Specialty Start Date End Date Martin Avilez MD [address] [place], [place] PCP - General 02/25/18
--- OUTSIDE RECORDS SUMMARY | 2025-05-29 13:27 | XMS_ITS | Encounter Summary ---
Author Organization Formerly [facility] Address [address] [place] [address] Encounters * CPT with Medical [facility] at [facility] on 2025-05-25 { reasonForRequest : chest pain/stomach issues , patientReports :&quot ; , denies :[ History of Heart Attack, in the setting of active chest pain , Active Chest pain, radiates to neck jaw and or arm , Diaphoretic/Sweating ,&qu ot;Describes as crushing , Sudden onset of nausea/Vomiting and shortness of breath.", Shortness of Breath , Unable to speak in full sentences without distress ], chiefComplaints : Chest Pain , pmh : Pancreatitis, Cirrhosis, Hypertension , allergies : No Known Drug Allergies , otherAllergies&qu ot;: , painAssessment : , visitOutcome : ,"additionalComments : 59 y.o male complains of Chest Pain\nPatient calling reporting dull, intermittent chest pain for the last three days. Patient states pain is more persistent today. Sabra ent states discomfort is in mid chest and left side of his chest. Patient reports pain is non radiating. Patient does endorse shortness of breath, but states he has liver problems and still requires intermittent paracentesis'. Patient reports shortness of breath is no worse then normal. Patient does endorse some nausea and vomiting, but states he does have pancreatitis. I advised patient to go [facility], but patient would rather be evaluated in his home at this time. I provided information on the mobile health provider response time and advised the patient and/or caregiver to monitor reportedsigns and symptoms. I discussed the warning signs of when to seek emergency care -Lilia Bianchi RN"} Encountered patient conscious, alert and ambulatory. Patient reports he has been experiencing left-sided chest pain since this morning but was also experiencing the pain yesterday; had a brief periodwith no pain in between. Patient expresses he suffers chronically, both from pancreatitis and cirrhosis of the liver, which he most recently had drained of 4.5 L of fluid on 05/19/25. Patient denies s hortness of breath and fevers. 12 lead EKG exhibits a normal sinus rhythm, with no present ectopy; non-diagnostic for acute STEMI. Skin warm, dry and of appropriate color for ethnicity. Head and neck free of trauma and edema. ??? JVD. Breath sounds present, clear and equal bilaterally. Abdomen is moderately distended and non-tender; patient reports as baseline and expresses he will arrange an appointment to ???get drained?? later this week. Extremities are free of trauma and edema. [facility] [place]: [facility] regarding chest pain and recommends patient seek transport for further evaluation. Patient verbalizes understanding of the physicians instructions and states he is not willing to be transported this evening. Patient was encouraged to monitor himself for worsening symptoms, shortness of breath or worsening distension and wasencouraged to seek further medical attention, including 911, if said symptoms were to develop. Transport refusal signature obtained. ORAL_MEDICATION, EKG, POC_FLU_STREP, COVID_TEST Written by [facility] on 2025-05-25
[2025-05-29 13:30] LABS: Lipase 70 U/L (8-78); Magnesium 1.4 mg/dL (1.6-2.6)
[2025-05-29] MEDS: Lidocaine HCl 2 % Urojet 10 ML JEL.PF.APP TOPICAL (14:34)
[2025-05-29] MEDS: Magnesium Sulfate/H2O 2 GM/50 ML PIGGYBACK IV (14:44)
[2025-05-29] MEDS: Potassium Chloride Packet 20 MEQ PACKET 40 MEQ PO (14:44)
[2025-05-29 14:59] VITALS: BP 150/89; PULSE 100; RESP 16; TEMP 36.6; O2SAT 98
[2025-05-29] MEDS: iohexoL 350 MG/ML 100 ML INFUS..BTL IV (15:43)
[2025-05-29 15:59] VITALS: BP 141/85; PULSE 96; RESP 14; TEMP 37; O2SAT 98
[2025-05-29 16:32] LABS: Appearance Urine Clear; Glucose Urine UA 100 mg/dL (Negative); PH 6.5 (5.0-9.0); Specific Gravity - Urine 1.025 (1.005-1.025); UMIC TRIGGER UACC YES
[2025-05-29 16:44] LABS: UACC Culture Trigger YES
--- NOTE | 2025-05-29 17:02 | MHC.EDTECH ---
pt utilized bedpan, large loose stool. RN aware
--- NOTE | 2025-05-29 17:41 | MHC.EDTECH ---
pt requesting to speak to MD. states he want boyle out, if not he will takeit out. PA notified.
--- NOTE | 2025-05-29 18:10 | PC.NURSE ---
Harding cath d/c'd per verbal order from ABBEY Holliday. Pt had threatened to either have catheter removed or he was going to pull it out. Pt given pticher of water to encourage urination prior to discharge.
--- NOTE | 2025-05-29 18:46 | PC.NURSE ---
Pt refused miralax stating Im empty now
[2025-05-29 19:25] VITALS: BP 141/85; PULSE 96; RESP 14; TEMP 37; O2SAT 98
--- NOTE | 2025-05-29 19:34 | PC.NURSE ---
Pt states he was able to void approx 150ml. Informed pt this was not quite an amount, pt states, I havent drank anything all day and it takes me a while. I wanna go home. Igor, the PA made aware, reviewed d/c instructions w/ pt and s&s of urinary retention, pt verbalized understanding
== END 2025-05-29 19:36 | disposition home or self-care (01) ==
PROVIDERS: Physician Assistant; Physician Assistant Medical; Emergency Provider Emergency Medicine; PCP Internal Medicine
DX: N39.0 Urinary tract infection, site not specified (principal); K59.00 Constipation, unspecified; R33.9 Retention of urine, unspecified; R18.8 Other ascites; R11.2 Nausea with vomiting, unspecified; R25.2 Cramp and spasm; Z79.899 Other long term (current) drug therapy; Z87.891 Personal history of nicotine dependence
CPT/HCPCS: 36415; 74177; 80053; 81001; 83690; 83735; 85025; 87086; 96361; 96365; 96366; 99284; J3475; Q9967

== ENCOUNTER → 2025-05-29 12:35 | Outpatient (BNV) | payer OTHER, SELFPAY | PROVIDERS: Emergency Provider Emergency Medicine; PCP Internal Medicine; Visit Provider Radiology Diagnostic Radiology | DX: K74.60 Unspecified cirrhosis of liver (principal); R18.8 Other ascites | CPT/HCPCS: 74177 ==

== ENCOUNTER 2025-06-16 09:51 | Outpatient (REF) | payer OTHER, SELFPAY ==
--- NOTE | ~2025-06-16 | US_ITS ---
CLINICAL HISTORY: K74.60 - Unspecified cirrhosis of liver US abdomen limited Comparison: US/SR - US ABDOMEN LIMITED - 02/04/24 13:08 EDT Findings: The pancreas, abdominal aorta and IVC are not seen, prominent bowel gas shadowing in the midline abdomen. The liver is normal in size, right lobe length is 17.2 cm. Mildly echogenic liver parenchyma with coarsened echotexture, nodular surface contour, no hepatic lesion is seen. No intrahepatic bile duct dilatation, probable proximal common duct is seen, 3 mm in diameter. Mobile gallstone, no gallbladder wall thickening, physiologic distention of the gallbladder sonographic Villalpando's sign is not documented by the accounting analyst. Patent TIPS noted in the right central hepatic lobe. Right kidney is normal in size, 11.7 cm in length. Normal in echogenicity, no nephrolithiasis or hydronephrosis. Midpole minimally complex cyst contains septation and probable partial wall calcification 1.4 x 0.9 x 1.3 cm, no Doppler evaluation of the this lesion was performed by the accounting analyst. Moderate perihepatic ascites. Impression: 1. Cirrhotic liver. 2. Moderate ascites of the right upper quadrant. 3. Right renal complex cyst. 4. Cholelithiasis. This document has been electronically signed by: Emily Mustafa MD on 06/17/2025 15:17:31
--- OUTSIDE RECORDS SUMMARY | 2025-06-16 10:41 | XMS_ITS | Data Portability ---
Author Organization [facility] Address [address] [place] [address] Care Team Providers Care Director Of Application Development Name Role Phone HIM CCA OTHER VALORIE GARCÍA Primary Care Provider [phone] Assessment Encounter Date Assessment Date Assessment LastModified by Organization Details LastModified Time 12/05/2023 12/05/2023 I have reviewed and agree with the assessment and plan as documented by the professional skater. I provided real time medical direction for this encounter and was immediately available to provide additional phone based assistance as needed. History as noted by professional skater. Pt with recent diagnosis of R knee septic arthritis, had knee arthroscopy and wash out performed at [facility] on November 29 and was [...] pt that he needs to return to [facility] today to have orthopedics evaluate his leg. I stress the importance of having his leg evaluated urgently today to rule out worsening infection. We offer to arrange for an ambulance to take him to the ED, but pt prefers to have his sister take him to the [facility] ED today for evaluation. He states he will go there in about an hour. I have called an expect to the building contractor at the [facility] ED. [email or web address] Not available 12/05/2023 11:27:29 05/24/2025 05/24/2025 As noted, we were called to see this patient regarding concerns of Left sided chest pain. Evaluation in the field was performed by my professional skater colleague, as noted above, I provided real-time direction and supervision for this visit. The evaluation revealed The patient is a 59 year old male with a past medical history of. Pancreatitis, Cirrhosis, Hypertension Who presents with? Chest pain over the last three days. He describes the pain as left sided and radiates to the left shoulder. He does have a history of cirrhosis of the liver and Justice had 4.5 liters removed via a paracentesis from his abdomen. He also has a history of pancreatitis. He says this chest pain feels different than his pancreatitis pain. An EKG was done which did not show a STEMI. Given the patients risk factors. For an acute coronary syndrome, I recommended that the patient be transferred via ambulance to the ER for troponin testing. And further evaluation. The professional skater discussed at length the importance of being transferred and why we wanted him transferred. The patient declined. He signed a refusal. Impression: Acute chest pain Plan: 1) EKG HR 96 NSR, normal qrs, nonspecific st-twave changes no stemi 2) Pt refused transfer to the Er for further evaluation, signed refusal Primary care, consider pt may need cardiology evaluation Disposition: stay at home We discussed the diagnostic uncertainty of home visits and the risk associated with this. In this case, the patient and I felt this to be an acceptable and reasonable amount of risk given the benefit of avoiding an ED visit. We discussed the need to seek care urgently/emerge ntly in the setting of any new or worsening serious symptoms, particularly worsening chest pain, dizziness, SOB [email or web address] Not available 05/24/2025 20:26:20 Plan of Treatment Reminders Order Date Submit Date Provider Last Modified By Organization Details Last Modified Time Details Appointments None recorded. Lab None recorded. Referral None recorded. Procedures None recorded. Surgeries None recorded. Imaging electrocard iogram 2024 025 [facility], [address] [place] [address], [phone] 20:22:36 Medication Orders None recorded. Patient TargetsNo targets recorded. Patient InstructionsNo instructions recorded. Reason for Referral None Reported. Results Created Date Observation Date Name Description Value Unit Range Abnormal Flag Note LastModifiedBy Organization Detail LastModifiedTime 05/24/2005/24/2025 elect shira paulinogr am No observ ation record ed. [email or web address] [address], [phone] 05/24/2025 21:28:53 Result Notes None recorded. Medical Equipment None Reported. Allergies No known drug allergies Medications Name Sig Start Date Stop Date [...] Details Last Updated DateTime 4 98 % 016573. 04 g 18 /min 98.2 [degF] 101 /min 104/64 mm[Hg] Not Available [facility] - production 4 11:02:34 Date Recorded Heart rate Oxygen saturation Respiratory rate Body temperature Systolic And Diastolic Provider Name and Address Organization Details Last Updated DateTime 5 93 /min 95 % 18 /min 98.8 [degF] 146/86 mm[Hg] Not Available [facility] - production 5 20:12:59 Social History None recorded. Functional Status None recorded. Mental Status None recorded. Family History Nothing Reported. Medical History No medical history recorded. Past Encounters Encounter ID Performer Location Encounter Start Date Encounter Closed Date Diagnosis/Indication Diagnosis SNOMED-CT Code Diagnosis ICD10 Code Diagnosis IMO Codes Diagnosis Note [id number] Amadou Baez MD Main - [facility] [address] [place] [phone] 12/05/2023 11:02:27 12/06/2023 10:03:23 Cellulitis of right lower limb [id number] L03.115 [id number] LINDA BALDWIN MD Main-[facility] ED Medical [address] [phone] 05/24/2025 20:12:52 05/24/2025 21:32:42 Acute chest pain 339042314 R07.9 072301 Health Concerns Section Related Observation LastModified by Organization Detai ls LastModified Time None Recorded Concern Status LastModified by Organization Details LastModified Time None Recorded Advance Directives Directive None Recorded Payers Insurance Date Sequence Insurance Name Policy Number Policy Booth Covered Member ID Booth Member ID Guarantor Name 06/12/2025 1 [facility] - DOS ON OR AFTER 2022 - DUAL ELIGIBLE - [facility] OPTIONS AND ONE CARE (MEDICARE REPLACEMENT/ADV ANTAGE - HMO) Akash Barboza [id number] Akash Barboza Notes Date Note Type Note Provider Name and Address Organization Details Recorded Time 12/05/2023 text/html ROS as noted in the HPI This was a supervised home visit with professional skater Deon Diaz. CRC Nurse Triage Notes (Claudia [...] PMH cirrhosis of the liver and pancreatitis ................... ................... ................... ................... ................... ................... ................... ........ Obstetrics/Gynecology Nurse Note From Deon Diaz: Pt co pain and redness in right leg after surgery this past Sunday. Pt on antibiotics and pain management already. Pt denies fever NVD CP sob. Pt sts redness and pain has increased since release. Baseline vitals assessed, area warm to touch ..afebrile. [facility] contacted and advised pt to go to ER today. Pt declined ambulance and sts his sister will take him to [facility]. Pt education on the risks of not going to ER. ................... ................... ................... ................... ................... ................... ................... ........ Disposition: Eun Amadou Baez MD [address] [facility],[address], [place], [address], [employer] 12/05/2023 11:58:49 05/24/2025 text/html ROS as noted in the [facility] CRC Nurse Triage Notes (Josesito Bianchi): Reason For Request: chest pain/stomach issues Denies: History of Heart Attack, in the setting of active chest pain Active Chest pain, radiates to neck jaw and or arm Diaphoretic/Sweatin g Describes as c rushing Sudden onset of nausea/Vomiting and shortness of breath. Shortness of Breath Unable to speak in full sentences without distress Chief Complaints: Chest Pain PMH: Pancreatitis, Cirrhosis, Hypertension PMH Reviewed at 05/24/2025 - 19:07 (ET) Allergies Reviewed at 05/24/2025 - 19:07 (ET) Comments: 59 y.o male complains of Chest Pain Patient calling reporting dull, intermittent chest pain for the last three days. Patient states pain is more persistent today. Patient states discomfort is in mid chest and left side of his chest. Patient reports pain is non radiating. Patient does endorse shortness of breath, but states he has liver problems and still requires intermittent paracentesis'. Patient reports shortness of breath is no worse then normal. Patient does endorse some nausea and vomiting, but states he does have pancreatitis. I advised patient to go to the ER, but patient would rather be evaluated in his home at this time. I provided information on the mobile health provider response time and advised the patient and/or caregiver to monitor reported signs and symptoms. I discussed the warning signs of when to seek emergency care -Lilia Bianchi RN Obstetrics/Gynecology Nurse Organization Information for Corey Arguello [employer] Legal Name: [employer]. Address: [address] [place] [address] [place] [address], Physician Intensivist: Clifton Ware MD [facility] No.: [id number] Obstetrics/Gynecology Nurse POC Test Results from Corey Arguello - ALS EKG (20:06:27) EKG test performed. Attachments uploaded as part of this test result can be found under Documents section. EKG (20:06:27) - This test has been updated by the professional skater, Corey Arguello at (05/24/2025 20:41:51 ET). The changes are marked in bold. EKG test performed. Attachments uploaded as part of this test result can be found under Documents section. ................... ................... ................... ................... ................... ................... ................... ........ Obstetrics/Gynecology Nurse Note From Corey Arguello: Encountered patient conscious, alert and ambulatory. Patient reports he has been experiencing left-sided chest pain since this morning but was also experiencing the pain yesterday; had a brief period with no pain in between. Patient expresses he suffers chronically, both from pancreatitis and cirrhosis of the liver, which he most recently had drained of 4.5 L of fluid on 05/19/25. Patient denies shortness of breath and fevers. 12 lead EKG exhibits a normal sinus rhythm, with no present ectopy; non-diagnostic for acute STEMI. Skin warm, dry and of appropriate color for ethnicity. Head and neck free of trauma and edema. JVD. Breath sounds present, clear and equal bilaterally. Abdomen is moderately distended and non-tender; patient reports as baseline and expresses he will arrange an appointment to g et drained later this week. Extremities are free of trauma and edema. [facility] Contacted: states the [facility] program is limited in terms of bloodwork regarding chest pain and recommends patient seek transport for further evaluation. Patient verbalizes understanding of the physicians instructions and states he is not willing to be transported this evening. Patient was encouraged to monitor himself for worsening symptoms, shortness of breath or worsening distension and was encouraged to seek further medical attention, including 911, if said symptoms were to develop. Transport refusal signature obtained. [facility] Lab Orders: electrocardiogram: Performed ................... ................... ................... ................... ................... ................... ................... ........ [facility] Consulted: Linda Baldwin ................... ................... ................... ................... ................... ................... ................... ........ Disposition: Fulfilled LINDA BALDWIN MD [address] [facility],[address], [place], [address], [employer] 05/24/2025 21:07:02
--- OUTSIDE RECORDS SUMMARY | 2025-06-16 10:41 | XMS_ITS | Clinical Summary ---
Author Organization [facility] Address [address] [place] [phone] Phone Care Team Providers Care Social Work Case Manager Name Role Phone Unavailable Primary Care [...] It is not the complete legal health record.[facility]
--- OUTSIDE RECORDS SUMMARY | 2025-06-16 10:42 | XMS_ITS | Clinical Summary ---
Author Organization [facility] Facility Address [address] [address] Care Team Providers Care Surveying Crew Rodman Name Role Phone Unavailable Primary Care Provider [...] 018 Influenza Vaccine (#1) 2025 Insurance Medicaid [place]
--- OUTSIDE RECORDS SUMMARY | 2025-06-16 10:42 | XMS_ITS | Clinical Summary ---
Author Organization [facility] Address [address] [place] [address] Care Team Providers Care Practice Business Asst Name Role Phone Martin Avilez MD Primary Care Provider [phone] Medical History Medical History Date Comments Hypertension [...] Depression Screening 06/25/2024 COVID-19 Vaccine ( - 2024-2 6 season) 2025 Influenza Vaccine [...] age to complete this topic Care Teams Practice Business Asst Relationship Specialty Start Date End Date Martin Avilez MD [address] [facility] [address] [place], [place] PCP - General 02/25/18
--- OUTSIDE RECORDS SUMMARY | 2025-06-16 10:42 | XMS_ITS | Continuity of Care Document ---
Author Organization [facility] Address [address] [place] [address] Care Team Providers Care Gunstock Spray Unit Feeder Name Role Phone HIM CCA OTHER VALORIE GARCÍA Primary Care Provider Assessment Encounter Date Assessment Date Assessment LastModified by Organization Details LastModified Time 05/24/2025 05/24/2025 As noted, we were called to see this patient regarding concerns of Left sided chest pain. Evaluation in the field was performed by my talent solutions manager colleague, as noted above, I provided real-time [...] for troponin testing. And further evaluation. The talent solutions manager discussed at length the importance of being [...] symptoms, particularly worsening chest pain, dizziness, SOB [email or web address] Not available 05/24/2025 20:26:20 Plan of Treatment Reminders Order Date Submit Date Provider Last Modified By Organization Details Last Modified Time Details Appointments None recorded. Lab None recorded. Referral None recorded. Procedures None recorded. Surgeries None recorded. Imaging electrocard iogram 2024 025 KEVIN [facility], [address] [place] [address], [phone] 20:22:36 Medication Orders None recorded. Patient TargetsNo targets recorded. Patient InstructionsNo instructions recorded. Reason for Referral None Reported. Results Created Date Observation Date Name Description Value Unit Range Abnormal Flag Note LastModifiedBy Organization Detail LastModifiedTime 05/24/2005/24/2025 agustín jeff am No observ ation record ed. [email or web address] [address], [phone] 05/24/2025 21:28:53 Result Notes None recorded. Medical [...] Available No t Available Vitals Date Recorded Heart rate Oxygen saturation Respiratory rate Body temperature Systolic And Diastolic Provider Name and Address Organization Details Last Updated DateTime 93 /min 95 % 18 /min 98.8 [degF] 146/86 mm[Hg] Not Available [facility] - production 20:12:59 Social History None recorded. Functional Status None recorded. Mental Status None recorded. Family History Nothing Reported. Medical History No medical history recorded. Past Encounters Encounter ID Performer Location Encounter Start Date Encounter Closed Date Diagnosis/Indication Diagnosis SNOMED-CT Code Diagnosis ICD10 Code Diagnosis IMO Codes Diagnosis Note [id number] LINDA BALDWIN MD Main-[facility] ED Medical [address] [phone] 05/24/2025 20:12:52 05/24/2025 21:32:42 Acute chest pain [id number] R07.9 151239 Health Concerns Section Related Observation LastModified by Organization Detai ls LastModified Time None Recorded Concern Status LastModified by Organization Details LastModified Time None Recorded Payers Encounter Date Sequence Insurance Name Policy Number Policy Booth Covered Member ID Booth Member ID Guarantor Name 05/24/2025 1 [facility] - DOS ON OR AFTER 2022 - DUAL ELIGIBLE - LONGTERM OPTIONS AND ONE CARE (MEDICARE REPLACEMENT/ADV ANTAGE - HMO) Akash Barboza [id number] Akash Barboza Notes Date Note Type Note Provider Name and Address Organization Details Recorded Time 05/24/2025 text/html ROS as noted in the [facility] CRC Nurse Triage Notes (Josesito Bianchi): Reason [...] to seek emergency care -Lilia Bianchi RN [facility] Organization Information for [employer] Legal Name: [employer]. Address: [address] [place] [address], Client Development Manager: Clifton Ware MD CLIA No.: [id number] [facility] POC Test Results from Corey Arguello EKG (20:06:27) EKG test performed. Attachments uploaded as part of this test result can be found under Documents section. EKG (20:06:27) - This test has been updated by the talent solutions manager, Corey Arguello at (05/24/2025 20:41:51 ET). The changes are marked in bold. EKG test performed. Attachments uploaded as part of this test result can be found under Documents section. ................... ................... ................... ................... ................... ................... ................... ........ [facility] Note From Corey Arguello: Encountered patient conscious, [...] Extremities are free of trauma and edema. [facility] Contacted: states the [facility] program is limited [...] were to develop. Transport refusal signature obtained. [facility] Lab Orders: electrocardiogram: Performed ................... ................... ................... ................... ................... ................... ................... ........ [facility] Consulted: Linda Baldwin ................... ................... ................... ................... ................... ................... ................... ........ Disposition: Fulfilled LINDA BALDWIN MD [address] [facility],[address], [place], [address], [facility] [employer]NS[employer] 05/24/2025 21:07:02
== END 2025-06-16 09:52 | disposition home or self-care (01) ==
LOC: HO.US 09:51
PROVIDERS: PCP Internal Medicine; Visit Provider Internal Medicine Gastroenterology
DX: R18.8 Other ascites (principal); K74.60 Unspecified cirrhosis of liver
CPT/HCPCS: 76705

== ENCOUNTER → 2025-06-16 09:52 | Outpatient (BNV) | payer OTHER, SELFPAY | PROVIDERS: PCP Internal Medicine; Visit Provider Radiology Diagnostic Radiology | DX: K74.60 Unspecified cirrhosis of liver (principal); N28.1 Cyst of kidney, acquired; K80.20 Calculus of gallbladder without cholecystitis without obstruction; R18.8 Other ascites | CPT/HCPCS: 76705 ==